=== PATIENT | male | born 1945 | race Caucasian/White ===

== ENCOUNTER 2022-08-11 06:21 | Outpatient (RCR) | payer MEDICARE, OTHER, SELFPAY | END 2022-09-09 23:59 | disposition home or self-care (01) | LOC: MM 06:21 | PROVIDERS: PCP Internal Medicine; Visit Provider Internal Medicine | DX: Z51.81 Encounter for therapeutic drug level monitoring (principal); Z79.01 Long term (current) use of anticoagulants; I48.91 Unspecified atrial fibrillation | CPT/HCPCS: 85610; G0463 ==

== ENCOUNTER 2022-08-25 07:49 | Outpatient (OUT) | payer MEDICARE, OTHER, SELFPAY ==
--- NOTE | 2022-08-25 08:11 | CT_ITS ---
The [address] [address] Patient Name: DEB DAVIS MRN: [id number] date: 1945 Sex: M Assigned Patient Location: LAB Current Patient Location: LAB Accession/Order Number: [id number] Exam Date: 08/25/2022 08:17 Report Date: 08/25/2022 08:43 At the request of: YANI SWANSON Procedure: CT chest wo con EXAM: CT chest wo con HISTORY: Right Pulmonary Nodule R91.1 COMPARISON: CT chest 09/24/2021. TECHNIQUE: Axial soft tissue and lung windows of the chest with coronal and sagittal reformats. CT dose reduction technique was used including Automated Exposure Control. Findings: Lack of intravenous contrast limits evaluation. The heart is mildly enlarged. There are coronary artery and aortic annular calcifications. No pericardial effusion. The thoracic aorta is normal caliber with mild atherosclerotic disease. The pulmonary arteries are nondilated. The central airways are patent. No pneumothorax. No pleural effusion. No focal consolidation. Minimal atelectasis bilaterally. Stable right lower lobe 1.2 cm nodule abutting the pleura (image 75 series 4). There are couple other scattered stable micronodules. No new pulmonary nodule. No enlarged mediastinal, hilar, axillary or supraclavicular lymph nodes. Calcified right hilar and subcarinal lymph nodes likely relating to prior granulomatous disease. Splenic calcifications also likely relating to prior granulomatous disease. Partially visualized left renal 3.1 cm cyst. No aggressive sclerotic or lytic osseous lesions. Multilevel degenerative spondylosis. IMPRESSION: 1. Stable pulmonary nodules. 2. Evidence of prior granulomatous disease. Electronically authenticated by: MARIA LUZ MCGUIRE Date: 08/25/2022 08:43
[2022-08-25 08:14] LABS: Basophils Percent Auto 0.6 % (0.2-2.0); Eosinophils Absolute Auto 0.1 10^3/uL (0.0-0.7); Eosinophils Percent Auto 2.2 % (0.9-7.0); Immature Granulocytes Abs Auto 0.01 10^3/uL (0.00-0.03); Immature Granulocytes Pct Auto 0.2 % (0.0-0.5); Lymphocytes Absolute Auto 1.8 10^3/uL (1.2-3.8); Lymphocytes Percent Auto 28.1 % (20.5-60.0); Mean Corpuscular HGB Conc 32.6 g/dL (29.9-35.2); Mean Platelet Volume 10.2 fL (9.5-13.5); Monocytes Absolute Auto 0.5 10^3/uL (0.3-0.8); Monocytes Percent Auto 7.8 % (1.7-12.0); Neutrophils Absolute Auto 3.8 10^3/uL (1.4-6.5); Neutrophils Percent Auto 61.1 % (43.0-75.0); Platelet Count 180 10^3/uL (150-450); Red Blood Count 5.17 10^6/uL (4.70-6.10); Red Cell Distribution Width 15.7 % (11.0-15.0); White Blood Count 6.3 10^3/uL (4.0-11.0)
[2022-08-25 08:51] LABS: Microalbumin Urine Random 9.8 mg/dL (<=30.0)
[2022-08-25 09:02] LABS: Estimated Average Glucose 123 mg/dL; Glycohemoglobin A1C 5.9 % (4.5-6.2)
[2022-08-25 10:07] LABS: Alanine Aminotransferase 24 U/L (16-63); Anion Gap 12.8; BUN Creatinine Ratio 24.4; Calcium 9.1 mg/dL (8.5-10.1); Carbon Dioxide 27.2 mmol/L (21.0-32.0); Chloride 102 mmol/L (98-107); Chol HDL Ratio 2.7; Cholesterol 138 mg/dL (<=200); Estimated GFR (African America >60 (>=60); Estimated GFR (Non-African Ame >60 (>=60); Glucose 114 mg/dL (74-106); HDL Cholesterol 51 mg/dL (40-60); LDL Cholesterol Calculated 74.8 mg/dL; Sodium 138 mmol/L (136-145); Triglycerides 61 mg/dL (<=150); VLDL CHOLESTEROL 12.2 mg/dL
[2022-08-25 10:45] LABS: Prostate Specific Antigen Scrn 1.29 ng/mL (<=4.00)
== END 2022-08-25 07:50 ==
LOC: LAB 07:51
PROVIDERS: PCP Internal Medicine; Visit Provider Internal Medicine
DX: Z12.5 Encounter for screening for malignant neoplasm of prostate (principal); Z79.899 Other long term (current) drug therapy; R91.1 Solitary pulmonary nodule
CPT/HCPCS: 36415; 71250; 80048; 80061; 82043; 83036; 84460; 85025; G0103

== ENCOUNTER 2022-09-15 09:01 | Outpatient (RCR) | payer MEDICARE, OTHER, SELFPAY | END 2022-10-10 16:58 | disposition home or self-care (01) | LOC: MM 09:01 | PROVIDERS: PCP Internal Medicine; Visit Provider Internal Medicine | DX: Z51.81 Encounter for therapeutic drug level monitoring (principal); Z79.01 Long term (current) use of anticoagulants; I48.91 Unspecified atrial fibrillation | CPT/HCPCS: 85610; G0463 ==

== ENCOUNTER 2022-10-11 09:20 | Outpatient (RCR) | payer MEDICARE, OTHER, SELFPAY | END 2022-11-10 17:34 | disposition home or self-care (01) | LOC: MM 09:20 | PROVIDERS: Visit Provider Internal Medicine | DX: Z51.81 Encounter for therapeutic drug level monitoring (principal); Z79.01 Long term (current) use of anticoagulants; I48.91 Unspecified atrial fibrillation | CPT/HCPCS: 85610; G0463 ==

== ENCOUNTER 2022-11-11 08:57 | Outpatient (RCR) | payer MEDICARE, OTHER, SELFPAY | END 2022-12-09 16:52 | disposition home or self-care (01) | LOC: MM 08:57 | PROVIDERS: Visit Provider Internal Medicine | DX: Z51.81 Encounter for therapeutic drug level monitoring (principal); Z79.01 Long term (current) use of anticoagulants; I48.91 Unspecified atrial fibrillation | CPT/HCPCS: 85610; G0463 ==

== ENCOUNTER 2022-12-12 01:53 | Outpatient (RCR) | payer MEDICARE, OTHER, SELFPAY | END 2023-01-10 17:25 | disposition home or self-care (01) | LOC: MM 01:53 | PROVIDERS: Visit Provider Internal Medicine | DX: Z51.81 Encounter for therapeutic drug level monitoring (principal); Z79.01 Long term (current) use of anticoagulants; I48.91 Unspecified atrial fibrillation | CPT/HCPCS: 85610; G0463 ==

== ENCOUNTER 2023-01-11 00:40 | Outpatient (RCR) | payer MEDICARE, OTHER, SELFPAY | END 2023-02-09 16:40 | disposition home or self-care (01) | LOC: MM 00:40 | PROVIDERS: Visit Provider Internal Medicine | DX: Z51.81 Encounter for therapeutic drug level monitoring (principal); Z79.01 Long term (current) use of anticoagulants; I48.91 Unspecified atrial fibrillation | CPT/HCPCS: 85610; G0463 ==

== ENCOUNTER 2023-02-10 09:28 | Outpatient (RCR) | payer MEDICARE, OTHER, SELFPAY | END 2023-03-10 15:10 | disposition home or self-care (01) | LOC: MM 09:28 | PROVIDERS: Visit Provider Internal Medicine | DX: Z51.81 Encounter for therapeutic drug level monitoring (principal); Z79.01 Long term (current) use of anticoagulants; I48.91 Unspecified atrial fibrillation | CPT/HCPCS: 85610; G0463 ==

== ENCOUNTER 2023-03-13 01:35 | Outpatient (RCR) | payer MEDICARE, OTHER, SELFPAY | END 2023-04-12 16:57 | disposition home or self-care (01) | LOC: MM 01:35 | PROVIDERS: Visit Provider Internal Medicine | DX: Z51.81 Encounter for therapeutic drug level monitoring (principal); Z79.01 Long term (current) use of anticoagulants | CPT/HCPCS: 85610; G0463 ==

== ENCOUNTER 2023-03-16 12:50 | Emergency (ER) | payer OTHER, MEDICARE, SELFPAY ==
[2023-03-16 12:53] VITALS: BP 163/86; PULSE 81; RESP 18; TEMP 36.6; O2SAT 97; BMI 44.1
--- NOTE | 2023-03-16 13:00 | CT_ITS ---
The [address] [address] Patient Name: DEB DAVIS MRN: [id number] date: 1945 Sex: M Assigned Patient Location: ED.MAIN Current Patient Location: ED.MAIN Accession/Order Number: [id number] Exam Date: 03/16/2023 13:06 Report Date: 03/16/2023 13:28 At the request of: SERGIO BRODY Procedure: CT head/brain wo con EXAM: CT head/brain wo con; [id number] REASON FOR EXAM: fell, hit head, on Coumadin COMPARISON: None. TECHNIQUE: Axial CT images of the head obtained without contrast. Multiplanar reformats generated at the scanner. Dose reduction technique used: Automated exposure control and/or adjustment of the mA and/or kV according to patient size and/or use of iterative reconstruction technique. FINDINGS: Parenchyma: -Moderate generalized cerebral volume loss. -No midline shift or mass effect. Basilar cisterns are patent. -No acute intracranial hemorrhage. -No loss of cortical bird-white differentiation to indicate acute cortical infarct. -Moderate/severe multifocal and bilateral periventricular white matter predominant hypoattenuation, nonspecific though commonly seen in the setting of chronic microvascular ischemic disease. Incidentally noted cavum septum pellucidum. Extra-axial spaces: -No extra-axial fluid collection or hemorrhage. -CSF attenuation expansion of the extra-axial space surrounding the left cerebellar hemisphere which could be a congenital variant versus a benign arachnoid cyst. Ventricles: Normal in size and symmetric. Paranasal sinuses: Visualized paranasal sinuses are clear. Mastoid air cells: Visualized mastoids are clear. Orbits: No acute abnormality. Osseous: No acute findings. Soft tissues: Left periorbital laceration. CT/CT head/brain wo con IMPRESSION: 1. No acute intracranial abnormality demonstrated. 2. Findings suggestive of moderate/severe chronic microvascular ischemic disease. Electronically authenticated by: AYLA OLMOS Date: 03/16/2023 13:28
--- NOTE | 2023-03-16 13:00 | ED.FALL1 ---
HPI - Fall General Chief Complaint: Head Injury Stated Complaint: FALL/EYE INJURY Time Seen by Provider: 03/16/23 12:53 Source: patient Mode of arrival: ambulance Limitations: no limitations History of Present Illness HPI Narrative: 78-year-old male presents for a fall. He tripped and fell and hit his left forehead sustaining a laceration just before coming into the emergency department. No other injury. Pain. He is on Coumadin. Related Data Allergies Allergy/AdvReac Type Severity Reaction Status Date / Time No Known Drug Allergies Allergy Verified 03/16/23 12:53 Review of Systems ROS Narrative A ten point review of systems is negative except as noted above. Exam Narrative Exam Narrative: Nurses note and vital signs reviewed and patient is not hypoxic. General: The patient appears well and in no apparent distress. Patient is resting comfortably on cart. Skin: Warm, dry, no pallor noted. There is no rash noted. Head: Normocephalic, 3 cm laceration present at the left eyebrow Eye: Normal conjunctiva, no drainage Ears, Nose, Mouth, and Throat: oral mucosa is moist. Nares patent. Cardiovascular: Regular Rate and Rhythm Respiratory: Patient is in no distress, no accessory muscle use, lungs are clear to auscultation, no wheezing, rales or rhonchi Back: non-tender, cervical spine nontender GI: soft and nontender Musculoskeletal: no palpable tenderness to all four extremities which have good range of motion Neurological: A&O, normal speech Psychiatric: Cooperative Constitutional Vital Signs, click to edit/add: Last Vital Signs Temp 98 F 03/16/23 12:53 Pulse 81 03/16/23 12:53 Resp 18 03/16/23 12:53 BP 163/86 H 03/16/23 12:53 Pulse Ox 97 03/16/23 12:53 Course Vital Signs Vital signs: Vital Signs Temperature 98 F 03/16/23 12:53 Pulse Rate 81 03/16/23 12:53 Respiratory Rate 18 03/16/23 12:53 Blood Pressure 163/86 H 03/16/23 12:53 Pulse Oximetry 97 03/16/23 12:53 Temperature 98 F 03/16/23 12:53 Pulse Rate 81 03/16/23 12:53 Respiratory Rate 18 03/16/23 12:53 Blood Pressure 163/86 H 03/16/23 12:53 Pulse Oximetry 97 03/16/23 12:53 MDM - Fall MDM Narrative Medical decision making narrative: CT brain is negative. Tetanus status is updated. Wound has been closed and sutures are to be removed in a week. Treatment diagnosis and follow-up were discussed with the patient. The following procedure was performed by me. Local infiltration was carried out with one percent lidocaine without epinephrine resulting in complete skin anesthesia. The area was prepped with Betadine ?3 and draped sterilely. It was explored for foreign bodies and none were found and then closed with a total of five sutures, a combination of 50 and 4-0 Ethilon. patient and he tolerated the procedure well. Differential Diagnosis Differential diagnosis: Likely other (laceration, subarachnoid hemorrhage, subdural hematoma, epidural hematoma) Imaging Data CT scan - head: Radiologist's impression: Procedure: CT head/brain wo con EXAM: CT head/brain wo con; [id number] REASON FOR EXAM: fell, hit head, on Coumadin COMPARISON: None. TECHNIQUE: Axial CT images of the head obtained without contrast. Multiplanar reformats generated at the scanner. Dose reduction technique used: Automated exposure control and/or adjustment of the mA and/or kV according to patient size and/or use of iterative reconstruction technique. FINDINGS: Parenchyma: -Moderate generalized cerebral volume loss. -No midline shift or mass effect. Basilar cisterns are patent. -No acute intracranial hemorrhage. -No loss of cortical bird-white differentiation to indicate acute cortical infarct. -Moderate/severe multifocal and bilateral periventricular white matter predominant hypoattenuation, nonspecific though commonly seen in the setting of chronic microvascular ischemic disease. Incidentally noted cavum septum pellucidum. Extra-axial spaces: -No extra-axial fluid collection or hemorrhage. -CSF attenuation expansion of the extra-axial space surrounding the left cerebellar hemisphere which could be a congenital variant versus a benign arachnoid cyst. Ventricles: Normal in size and symmetric. Paranasal sinuses: Visualized paranasal sinuses are clear. Mastoid air cells: Visualized mastoids are clear. Orbits: No acute abnormality. Osseous: No acute findings. Soft tissues: Left periorbital laceration. IMPRESSION: 1. No acute intracranial abnormality demonstrated. 2. Findings suggestive of moderate/severe chronic microvascular ischemic disease. Electronically authenticated by: AYLA OLMOS Date: 03/16/2023 13:28 Discharge Plan Discharge Chief Complaint: Head Injury Clinical Impression: Facial laceration Patient Disposition: Home, Self-Care Time of Disposition Decision: 13:56 Condition: Good Mode of Transportation: Private Vehicle Instructions: Laceration (ED) Additional Instructions: Sutures to be removed in one week Stand Alone Forms: Portal Instructions Referrals: Declan Bruce DO [Primary Care Provider] - 1 week
[2023-03-16] MEDS: LIDOCAINE HCL 1% 100 MG/10 ML MDV INJ (13:27)
[2023-03-16] MEDS: ADACEL DIPH,PERTUSS(ACELL),TET VAC/PF 0.5 ML ADULT SYRINGE IM (13:27)
[2023-03-16 14:15] VITALS: BP 130/67; PULSE 74; RESP 14; O2SAT 97
== END 2023-03-16 14:27 | disposition home or self-care (01) ==
PROVIDERS: Emergency Provider Emergency Medicine; PCP Internal Medicine
DX: S01.112A Laceration without foreign body of left eyelid and periocular area, initial encounter (principal); Z23 Encounter for immunization; W01.10XA Fall on same level from slipping, tripping and stumbling with subsequent striking against unspecified object, initial encounter
CPT/HCPCS: 12013; 70450; 90471; 90715; 99284

== ENCOUNTER 2023-04-13 01:39 | Outpatient (RCR) | payer MEDICARE, OTHER, SELFPAY | END 2023-05-11 17:25 | disposition home or self-care (01) | LOC: MM 01:39 | PROVIDERS: PCP Internal Medicine; Visit Provider Internal Medicine | DX: Z51.81 Encounter for therapeutic drug level monitoring (principal); Z79.01 Long term (current) use of anticoagulants | CPT/HCPCS: 85610; G0463 ==

== ENCOUNTER 2023-05-12 03:34 | Outpatient (RCR) | payer MEDICARE, OTHER, SELFPAY | END 2023-06-09 14:11 | disposition home or self-care (01) | LOC: MM 03:34 | PROVIDERS: PCP Internal Medicine; Visit Provider Internal Medicine | DX: Z51.81 Encounter for therapeutic drug level monitoring (principal) | CPT/HCPCS: 85610; G0463 ==

== ENCOUNTER 2023-06-12 03:21 | Outpatient (RCR) | payer MEDICARE, OTHER, SELFPAY | END 2023-07-11 18:13 | disposition home or self-care (01) | LOC: MM 03:21 | PROVIDERS: PCP Internal Medicine; Visit Provider Internal Medicine | DX: Z51.81 Encounter for therapeutic drug level monitoring (principal); Z79.01 Long term (current) use of anticoagulants | CPT/HCPCS: 85610; G0463 ==

== ENCOUNTER 2023-07-12 00:29 | Outpatient (RCR) | payer MEDICARE, OTHER, SELFPAY | END 2023-08-11 11:30 | disposition home or self-care (01) | LOC: MM 00:29 | PROVIDERS: PCP Internal Medicine; Visit Provider Internal Medicine | DX: Z51.81 Encounter for therapeutic drug level monitoring (principal); Z79.01 Long term (current) use of anticoagulants | CPT/HCPCS: 85610; G0463 ==

== ENCOUNTER 2023-08-14 03:09 | Outpatient (RCR) | payer MEDICARE, OTHER, SELFPAY | END 2023-09-08 10:06 | disposition home or self-care (01) | LOC: MM 03:09 | PROVIDERS: PCP Internal Medicine; Visit Provider Internal Medicine | DX: Z51.81 Encounter for therapeutic drug level monitoring (principal); Z79.01 Long term (current) use of anticoagulants | CPT/HCPCS: 85610; G0463 ==

== ENCOUNTER 2023-08-22 06:41 | Outpatient (OUT) | payer MEDICARE, OTHER, SELFPAY ==
--- OUTSIDE RECORDS SUMMARY | 2023-08-22 06:49 | XMS_ITS | CCD ---
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 unclassified (1 source) Edema, unspecified; 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: [EDEMA UNSPECIFIED] Onset: 03-09-2022 Episodic Residual codes; unclassified (5 sources) Requires influenza virus vaccination; 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: [Need for prophylactic vaccination and inoculation, Influenza] Onset: 12-01-2017 Episodic Screening and history of mental health and substance abuse codes (5 sources) History of tobacco use; 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: [Personal history of tobacco use, presenting hazards to health] Onset: 06-01-2016 Episodic Unclassified (1 source) Other persistent atrial fibrillation Viral infection (20 sources) Disease caused by 2019-nCoV; 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: [COVID-19] Results Test Name Value Interpretation Reference Range Facility [facility] 07-25-[address] [facility] Telephone (PRESLEY) JORGE DAVIS ([id number]) 1945 [facility]* Date Time Provider Department 07/25/23 RUBEN DENTON During your visit today, we recorded the following information about you: Bryan Dwyer 07/25/2023 10:22 AM Signed Documentation scanned into EP outside database Scanned INR results into [employer] Allergies As of Date: 07/25/2023 (No Known Allergies) Date Reviewed: 07/04/2023 Reviewed by: Delilah Novoa LPN - Fully Assessed Reason for Visit: Received Outside Medical Records [[id number]] Cmt: INR Prescriptions as of 07/25/2023 - warfarin (COUMADIN) 1 mg tablet Take 4 mg by mouth once daily. - metFORMIN (GLUCOPHAGE) 500 mg tablet Take 500 mg by mouth daily with breakfast. - furosemide (LASIX) 40 mg tablet Take 1 tablet by mouth once daily. - COMPOUNDED PRESCRIPTION Skin cream - patient unsure of name. - potassium chloride ER (K-DUR, KLOR-CON) 20 mEq tablet Take 1 tablet by mouth once daily. - pravastatin (PRAVACHOL) 80 mg tablet Take 1 tablet by mouth daily at bedtime. - ACETAMINOPHEN (TYLENOL 8 HOUR ORAL) Take by mouth as needed. 325 mg - 500 mg only as needed (not more than once per day) - allopurinol 300 mg tablet Take 300 mg by mouth once daily. Problem List As Of Date 07/25/2023 Noted Resolved CHRISTIAN (obstructive sleep apnea) [G47.33] 01/07/2014 HTN (hypertension) [I10] 01/07/2014 Dyslipidemia [E78.5] 01/07/2014 Atrial fibrillation (HCC) [I48.91] 07/08/2014 Atherosclerosis of grand ronde tribes coronary artery of na*07/10/2015 Diabetes mellitus type 2, controlled, without c*07/10/2015 Atrial fibrillation, persistent (HCC) [I48.19] 07/22/2015 Paroxysmal atrial fibrillation (HCC) [I48.0] 12/04/2015 Paroxysmal atrial flutter (HCC) [I48.92] 05/30/2018 Obesity, Class III, BMI >= 40 [E66.01] 10/23/2019 Chronic diastolic heart failure (HCC) [I50.32] 06/05/2023 Mixed hyperlipidemia [E78.2] 06/05/2023 Encounter Status:Closed by BRYAN DWYER on 07/25/[address] [facility] CNOVon 07-04-2023 CNOV Office Visit (CAEPAV ) JORGE DAVIS ([id number]) 1945 [facility] [place] Date Time Provider Department 07/04/23 10:00 AM SHAMA IBANEZ During your visit today, we recorded the following information about you: Pulse Blood pressure Weight Height 80/minute 146/78 121.3 kg 1.651 m Shama Ibanez PA-C 07/04/2023 9:58 AM Signed - No changes to medications today - Will have you see Dr Evans with echo as scheduled - Will have you see Dr Denton in 1 year - Call us sooner with any questions or concerns BARRETT Villeda Amanda, PA-C 07/04/2023 10:19 AM Signed [facility] [place] [facility] Department of Cardiovascular Medicine SECTION OF CARDIAC PACING and ELECTROPHYSIOLOGY OUTPATIENT VISIT DATE July 04, 2023 OUTPATIENT VISIT TYPE ESTABLISHED PRIMARY CARE PHYSICIAN: Declan Swanson (Peggy) [address] [place] [address] CHIEF COMPLAINT: Cardiology follow up HISTORY OF PRESENT ILLNESS: Mr. Davis is a 78 year old male who presents today for follow-up visit. He is a patient of Dr Evans and Dr Denton's with history of persistent AF s/p PVAI 2019, chronic HFpEF, obesity (BMI 44), HLP, CAD, DM II, HTN. On EKG's last SR EKG was 06/2021; currently rate controlled. Managed on warfarin only for stroke protection. Has an updated echo scheduled in November Back pain has slowed him down some but still does usual housework and can navigate stairs. He just takes his time He denies chest pain, shortness of breath, orthopnea, cough, edema, palpitations, PND, lightheadedness or syncope. PAST CARDIAC HISTORY: See above PAST MEDICAL HISTORY Diagnosis Date Acute gastric ulcer Atrial fibrillation (HCC) CAD (coronary artery disease) Congestive heart failure (HCC) DM2 (diabetes mellitus, type 2) (HCC) ED (erectile dysfunction) HTN (hypertension) Left ureteral calculus Obstructive chronic bronchitis with exacerbation (HCC) COPD Perianal dermatitis Status post ablation of atrial fibrillation 10/23/2019 Tubular adenoma PAST SURGICAL HISTORY Procedure Laterality Date ANESTH OPEN/SURG ARTHRS TOTAL KNEE ARTHROPLASTY 2007 Right Knee ARTHRP KNE CONDYLEANDPLATU MEDIALANDLAT COMPARTMENTS 2001 Left Knee CARDIAC CATH 2009 CARDIAC CATH 06/16/2015 COLONOSCOPY OPEN CHONDROPLASTY W/ MICRO DRILLING 2005 PAST SURGICAL HISTORY OF 1974 Fistulotomy PAST SURGICAL HISTORY OF Partial Medial Menisectomy Bilateral Knee PAST SURGICAL HISTORY OF 1991 Acrominoplasty Right Shoulder PAST SURGICAL HISTORY OF Bilateral Club Foot Surgery PAST SURGICAL HISTORY OF 2008 Anthroscopy Left Shoulder PAST SURGICAL HISTORY OF 2010 Revision Left Knee PAST SURGICAL HISTORY OF minor hand surgery REPAIR UMBILICAL HERNIA 2007 ROTATOR CUFF REPAIR 1993 Left Shoulder ROTATOR CUFF REPAIR 1996 Right Shoulder SOCIAL HISTORY Social History Tobacco Use Smoking status: Former Types: Cigars Quit date: 12/11/2012 Years since quittin.5 Smokeless tobacco: Never Vaping Use Vaping Use: Never used Substance Use Topics Alcohol use: Not Currently Drug use: No FAMILY HISTORY Problem Relation Age of Onset Heart Mother Heart Father ALLERGIES: ALLERGIES No Known Allergies MEDICATIONS: warfarin (COUMADIN) 1 mg tablet Take 4 mg by mouth once daily. metFORMIN (GLUCOPHAGE) 500 mg tablet Take 500 mg by mouth daily with breakfast. furosemide (LASIX) 40 mg tablet Take 1 tablet by mouth once daily. COMPOUNDED PRESCRIPTION Skin cream - patient unsure of name. potassium chloride ER (K-DUR, KLOR-CON) 20 mEq tablet Take 1 tablet by mouth once daily. pravastatin (PRAVACHOL) 80 mg tablet Take 1 tablet by mouth daily at bedtime. ACETAMINOPHEN (TYLENOL 8 HOUR ORAL) Take by mouth as needed. 325 mg - 500 mg only as needed (not more than once per day) allopurinol 300 mg tablet Take 300 mg by mouth once daily. REVIEW OF SYSTEMS: + Findings in bold GENERAL: Negative for: Weight loss or gain, Fever or Chills, Weakness and Sleep difficulties. HEENT: Negative for: Headache, Impaired Vision, Glasses, Hearing Impairment, Ringing in Ears, Nosebleeds, Poor Dental Care, Bleeding Gums and Dentures. NECK: Negative for: Swelling, Pain, Stiffness RESPIRATORY: Negative for: Cough, Blood in Sputum, Shortness of breath, Wheezing, Apnea GASTROINTESTINAL: Negative for: Trouble swallowing, Heartburn, Change in bowel habits, Blood in stool, Dark black stools MUSCULOSKELETAL: Negtive for: Muscle or joint pain, stiffness, Joint swelling NEUROLOGIC/PSYCHIATRIC : Negative for: Weakness, Paralysis, Numbness, Tingling, Tremor, Nervousness or anxiety, Depressed mood, Memory loss SKIN: Negative for: Rash, Itching HEMATOLOGICAL/LYMPHATI C: Negative for: Easy bruising, Easy bleeding ENDOCRINE: Negative for: Heat or Cold Intole (more content not included)... Normal [facility] CNPScarlett 06-27-2023 CNPN Telephone (CARDMN) JORGE DAVIS ([id number]) 1945 [place] [facility] Date Time Provider Department 06/27/23 RUBEN DENTON During your visit today, we recorded the following information about you: Bryan Dwyer 06/27/2023 2:56 PM Signed Documentation scanned into EP outside database Scanned INR results into [employer] Allergies As of Date: 06/27/2023 (No Known Allergies) Date Reviewed: 06/05/2023 Reviewed by: Venkat Evans V, MD - Fully Assessed Reason for Visit: Received Outside Medical Records [[id number]] Prescriptions as of 06/27/2023 - warfarin (COUMADIN) 1 mg tablet Take 4 mg by mouth once daily. - metFORMIN (GLUCOPHAGE) 500 mg tablet Take 500 mg by mouth daily with breakfast. - furosemide (LASIX) 40 mg tablet Take 1 tablet by mouth once daily. - COMPOUNDED PRESCRIPTION Skin cream - patient unsure of name. - potassium chloride ER (K-DUR, KLOR-CON) 20 mEq tablet Take 1 tablet by mouth once daily. - pravastatin (PRAVACHOL) 80 mg tablet Take 1 tablet by mouth daily at bedtime. - ACETAMINOPHEN (TYLENOL 8 HOUR ORAL) Take by mouth as needed. 325 mg - 500 mg only as needed (not more than once per day) - allopurinol 300 mg tablet Take 300 mg by mouth once daily. Problem List As Of Date 06/27/2023 Noted Resolved CHRISTIAN (obstructive sleep apnea) [G47.33] 01/07/2014 HTN (hypertension) [I10] 01/07/2014 Dyslipidemia [E78.5] 01/07/2014 Atrial fibrillation (HCC) [I48.91] 07/08/2014 Atherosclerosis of grand ronde tribes coronary artery of na*07/10/2015 Diabetes mellitus type 2, controlled, without c*07/10/2015 Atrial fibrillation, persistent (HCC) [I48.19] 07/22/2015 Paroxysmal atrial fibrillation (HCC) [I48.0] 12/04/2015 Paroxysmal atrial flutter (HCC) [I48.92] 05/30/2018 Obesity, Class III, BMI >= 40 [E66.01] 10/23/2019 Chronic diastolic heart failure (HCC) [I50.32] 06/05/2023 Mixed hyperlipidemia [E78.2] 06/05/2023 Encounter Status:Closed by BRYAN DWYER on 06/27/[address] [facility] CNOVon 06-05-2023 CNOV Office Visit (CARDAV ) JORGE DAVIS ([id number]) 1945 [facility]* Date Time Provider Department 06/05/23 1:40 PM VENKAT EVANS During your visit today, we recorded the following information about you: Pulse Blood pressure Weight 74/minute 124/78 120.2 kg Venkat Evans V, MD 06/05/2023 2:25 PM Signed Referring Physician: No referring provider defined for this encounter. Primary Care Physician: DO Jorge Unger is a 78 year old male that presents today for followup of Chronic diastolic CHF P atrial fibrillation : s/p PVI On coumadin Weight : lowest ; had improved Does not feel HR Was in atrial fibrillation last visit and last echo 2022 No meds for control of HR [ controlled on no meds Limited by back issues and slowed down because of this No angina Non obs cad by cath in the psat ASSESSMENT/PLAN: 1. Chronic diastolic heart failure (HCC) - ICD9: 428.32, ICD10: I50.32 (primary diagnosis) Stable on lasix Sglt 2 inhibitor : cost issue ; Stable Weight is lower 2. Atrial fibrillation, persistent (HCC) - ICD9: 427.31, ICD10: I48.19 Persistent Rate controlled Echo prior ot next visit 3. Obesity, Class III, 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) - ICD9: 278.01, ICD10: E66.01 Improved 4. Mixed hyperlipidemia - ICD9: 272.2, ICD10: E78.2 - Controlled - Counseled on healthy diet and regular exercise Venkat Evans MD Current Medications: Current Medications 06/05/2023 DIABETES THERAPIES Medication Dosage Pharm Subclass metFORMIN (GLUCOPHAGE) 500 mg tablet Take 500 mg by mouth daily with breakfast. Insulin Response Enhancers - Biguanides CARDIOVASCULAR Medication Dosage Pharm Subclass pravastatin (PRAVACHOL) 80 mg tablet Take 1 tablet by mouth daily at bedtime. Antihyperlipidemic - HMG CoA Reductase Inhibitors (statins) DIURETICS Medication Dosage Pharm Subclass furosemide (LASIX) 40 mg tablet Take 1 tablet by mouth once daily. Diuretic - Loop ANTICOAGULANTS Medication Dosage Pharm Subclass warfarin (COUMADIN) 1 mg tablet Take 4 mg by mouth once daily. Anticoagulants - Coumarin OTHER Medication Dosage Pharm Subclass ACETAMINOPHEN (TYLENOL 8 HOUR ORAL) Take by mouth as needed. 325 mg - 500 mg only as needed (not more than once per day) Analgesic or Antipyretic Non-Opioid allopurinol 300 mg tablet Take 300 mg by mouth once daily. Hyperuricemia Therapy - Xanthine Oxidase Inhibitors COMPOUNDED PRESCRIPTION Skin cream - patient unsure of name. Medical Supply, [employer]DB Superset potassium chloride ER (K-DUR, KLOR-CON) 20 mEq tablet Take 1 tablet by mouth once daily. Minerals and Electrolytes - Potassium, Oral PHYSICAL EXAMINATION: Vital Signs: Blood Pressure 124/78 Pulse 74 Weight 120.2 kg (264 lb 15.9 oz) Body Mass Index 44.10 kg/m? Body mass index is 44.1 kg/m?. GENERAL: Alert, oriented., Well appearing. No jaundice, anemia, clubbing, or cyanosis. HEENT: no lymphadenopathy. NECK: no JVD, No masses, or thyromegaly. Good carotid upstrokes. no carotid bruit. No lymphadenopathy. CARDIAC: irreg no gallop CHEST: Chest clear to auscultation. ABDOMEN: Soft, nontender, with no obvious organomegaly or masses. No epigastric bruit. EDEMA: No edema PERIPHERAL PULSES: 2+ SKIN: warm peripheries, no rash. NEURO: no focal neurological deficit ECG today: see epic result Allergies: ALLERGIES No Known Allergies Social History: TOBACCO: see epic ALCOHOL: see epic ROS: Card: See present history. Pulm:No cough or sputum production Gastro:no bowel changes. GenUr:no urinary symptoms. Endo:no chronic fatigue, significant weight loss/gain, heat/cold intolerance. Neuro:no focal weakness, focal sensory loss, headache, visual changes, seizure activity, ataxia, speech/language loss. Rheum:no joint swelling, back pain, knee pain, hip pain, or neck pain. Infect:no fevers, chills, rigors or night sweats. Skin:no rash Heme:no bruising LIPIDS: Triglyceride (mg/dL) Date Value 09/18/2020 83 Cholesterol, Total (mg/dL) Date Value 09/18/2020 143 HDL Cholesterol (mg/dL) Date Value 09/18/2020 48 LDL Cholesterol (mg/dL) Date Value 09/18/2020 78 Venkat Evans MD Allergies As of Date: 06/05/2023 (No Known Allergies) Date Reviewed: 06/05/2023 Reviewed by: Venkat Evans V, MD - Fully Assessed Reason for Visit: Follow Up [171] Primary Visit Diagnosis:Chronic diastolic heart failure (HCC) [I50.32] Other Visit Diagnoses:Atrial fibrillation, persistent (HCC) [I48.19] Obesity, Class III, 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) [E66.01] Mixed hyperlipidemia [E78.2] Order(s):ECG COMPLETE [ECG01] Order #: [id number]. #:[id number]--EEYFgy g ECHO [[id number]] Order #: [id number]: 1 FUTURE Prescriptions as of 06/05/2023 - warfarin (COUMADIN) 1 mg tablet Take 4 mg by mouth once daily. - metFORMIN (GLUCOPHAGE) 500 mg t (more content not included)... Normal [facility] [id number] 06-05-2023 ECG01 Ventricular Rate : 6 8 BPM QRS Duration : 108 ms Q-T Interval : 466 ms QTC Calculation(Bazett) : 495 ms Calculated R Taylor : -27 degrees Calculated T Taylor : 53 degrees ATRIAL FIBRILLATION INCOMPLETE RIGHT BUNDLE BRANCH BLOCK ABNORMAL ECG Confirmed by KATRINA KELLEY MD ([id number]) on 06/07/2023 9:44:30 AM NAME : JORGE DAVIS PID : [id number] : 1945 Gender : Male Race : ORD : Procedure Date : Jun 05 2023 14:22:27 Edit Date : Jun 07 2023 09:44:35 Diagnosis: ATRIAL FIBRILLATION INCOMPLETE RIGHT BUNDLE BRANCH BLOCK ABNORMAL ECG Confirmed by KATRINA KELLEY MD ([id number]) on 06/07/2023 9:44:30 AM Test Reason : Location : 192 : AVCRD Overread By : KATRINA KELLEY MD Edited By : KATRINA KELLEY MD Referred By : , Acquired by : Ale lema [facility] Scooter 05-30-2023 CNPN Telephone (CARDMN) JORGE DAVIS W ([id number]) 1945 [facility]* Date Time Provider Department 05/30/23 RUBEN DENTONIN During your visit today, we recorded the following information about you: Bryan Dwyer 05/30/2023 9:24 AM Signed Documentation scanned into EP outside database Scanned into [employer] Allergies As of Date: 05/30/2023 (No Known Allergies) Date Reviewed: 06/24/2022 Reviewed by: Ruben Denton MD - Fully Assessed Reason for Visit: Received Outside Medical Records [[id number]] Cmt: INR Prescriptions as of 05/30/2023 - warfarin (COUMADIN) 1 mg tablet Take 4 mg by mouth once daily. - metFORMIN (GLUCOPHAGE) 500 mg tablet Take 500 mg by mouth daily with breakfast. - furosemide (LASIX) 40 mg tablet Take 1 tablet by mouth once daily. - COMPOUNDED PRESCRIPTION Skin cream - patient unsure of name. - potassium chloride ER (K-DUR, KLOR-CON) 20 mEq tablet Take 1 tablet by mouth once daily. - pravastatin (PRAVACHOL) 80 mg tablet Take 1 tablet by mouth daily at bedtime. - ACETAMINOPHEN (TYLENOL 8 HOUR ORAL) Take by mouth as needed. 325 mg - 500 mg only as needed (not more than once per day) - allopurinol 300 mg tablet Take 300 mg by mouth once daily. Problem List As Of Date 05/30/2023 Noted Resolved CHRISTIAN (obstructive sleep apnea) [G47.33] 01/07/2014 HTN (hypertension) [I10] 01/07/2014 Dyslipidemia [E78.5] 01/07/2014 Atrial fibrillation (HCC) [I48.91] 07/08/2014 Atherosclerosis of grand r[place] tribes coronary artery of na*07/10/2015 Diabetes mellitus type 2, controlled, without c*07/10/2015 Atrial fibrillation, persistent (HCC) [I48.19] 07/22/2015 Paroxysmal atrial fibrillation (HCC) [I48.0] 12/04/2015 Paroxysmal atrial flutter (HCC) [I48.92] 05/30/2018 Obesity, Class III, BMI >= 40 [E66.01] 10/23/2019 Encounter Status:Closed by BRYAN DWYER on 05/30/23 [facility] 05[facility]02-2023 [facility] (PRESLEY[facility] JORGE DAVIS ([id number]) 1945 [place] [place]* Date Time Provider Department 05/02/23 RUBEN DENTON During your visit today, we recorded the following information about you: Bryan Dwyer 05/02/2023 3:27 PM Signed Documentation scanned into EP outside database Allergies As of Date: 05/02/2023 (No Known Allergies) Date Reviewed: 06/24/2022 Reviewed by: Ruben Denton MD - Fully Assessed Reason for Visit: Received Outside Medical Records [[id number]] Cmt: INR results Prescriptions as of 05/02/2023 - warfarin (COUMADIN) 1 mg tablet Take 4 mg by mouth once daily. - metFORMIN (GLUCOPHAGE) 500 mg tablet Take 500 mg by mouth daily with breakfast. - furosemide (LASIX) 40 mg tablet Take 1 tablet by mouth once daily. - COMPOUNDED PRESCRIPTION Skin cream - patient unsure of name. - potassium chloride ER (K-DUR, KLOR-CON) 20 mEq tablet Take 1 tablet by mouth once daily. - pravastatin (PRAVACHOL) 80 mg tablet Take 1 tablet by mouth daily at bedtime. - ACETAMINOPHEN (TYLENOL 8 HOUR ORAL) Take by mouth as needed. 325 mg - 500 mg only as needed (not more than once per day) - allopurinol 300 mg tablet Take 300 mg by mouth once daily. Problem List As Of Date 05/02/2023 Noted Resolved CHRISTIAN (obstructive sleep apnea) [G47.33] 01/07/2014 HTN (hypertension) [I10] 01/07/2014 Dyslipidemia [E78.5] 01/07/2014 Atrial fibrillation (HCC) [I48.91] 07/08/2014 Atherosclerosis of [place] tribes coronary artery of na*07/10/2015 Diabetes mellitus type 2, controlled, without c*07/10/2015 Atrial fibrillation, persistent (HCC) [I48.19] 07/22/2015 Paroxysmal atrial fibrillation (HCC) [I48.0] 12/04/2015 Paroxysmal atrial flutter (HCC) [I48.92] 05/30/2018 Obesity, Class III, BMI >= 40 [E66.01] 10/23/2019 Encounter Status:Closed by BRYAN DWYER on 05/02/[address] [facility] Scooter 04-06-2023 CNPN Telephone (CARDMN) JORGE [id number]) 1945 [place] [place]* Date Time Provider Department 04/06/23 RUBEN DENTON [facility] During your visit today, we recorded the following information about you: Suman Garvin 04/06/2023 6:45 AM Signed Outside medical records (INR report 04/04/2023) scanned into [employer] and shared EP drive. Allergies As of Date: 04/06/2023 (No Known Allergies) Date Reviewed: 06/24/2022 Reviewed by: Ruben Denton MD - Fully Assessed Reason for Visit: Received Outside Medical Records [[id number]] Cmt: INR Report 04/04/2023 Prescriptions as of 05/18/2023 - warfarin (COUMADIN) 1 mg tablet Take 4 mg by mouth once daily. - metFORMIN (GLUCOPHAGE) 500 mg tablet Take 500 mg by mouth daily with breakfast. - furosemide (LASIX) 40 mg tablet Take 1 tablet by mouth once daily. - COMPOUNDED PRESCRIPTION Skin cream - patient unsure of name. - potassium chloride ER (K-DUR, KLOR-CON) 20 mEq tablet Take 1 tablet by mouth once daily. - pravastatin (PRAVACHOL) 80 mg tablet Take 1 tablet by mouth daily at bedtime. - ACETAMINOPHEN (TYLENOL 8 HOUR ORAL) Take by mouth as needed. 325 mg - 500 mg only as needed (not more than once per day) - allopurinol 300 mg tablet Take 300 mg by mouth once daily. Problem List As Of Date 04/06/2023 Noted Resolved CHRISTIAN (obstructive sleep apnea) [G47.33] 01/07/2014 HTN (hypertension) [I10] 01/07/2014 Dyslipidemia [E78.5] 01/07/2014 Atrial fibrillation (HCC) [I48.91] 07/08/2014 Atherosclerosis of grand [place] tribes coronary artery of na*07/10/2015 Diabetes mellitus type 2, controlled, without c*07/10/2015 Atrial fibrillation, persistent (HCC) [I48.19] 07/22/2015 Paroxysmal atrial fibrillation (HCC) [I48.0] 12/04/2015 Paroxysmal atrial flutter (HCC) [I48.92] 05/30/2018 Obesity, Class III, BMI >= 40 [E66.01] 10/23/2019 Encounter Status:Closed by SUMAN GARVIN on 05/18/23 [facility] 02-07-2023 CNPN Telephone (CARDMN) JORGE DAVIS ([id number]) 1945 [place]* Date Time Provider Department 02/07/23 RUBEN DENTON CARDIN During your visit today, we recorded the following information about you: Suman Garvin 02/07/2023 9:32 AM Signed Outside medical records (INR report 02/07/2023) scanned into [employer] and shared [address]. Allergies As of Date: 02/07/2023 (No Known Allergies) Date Reviewed: 06/24/2022 Reviewed by: Ruben Denton MD - Fully Assessed Reason for Visit: Received Outside Medical Records [[id number]] Cmt: INR Report 02/07/2023 Prescriptions as of 02/07/2023 - warfarin (COUMADIN) 1 mg tablet Take 4 mg by mouth once daily. - metFORMIN (GLUCOPHAGE) 500 mg tablet Take 500 mg by mouth daily with breakfast. - furosemide (LASIX) 40 mg tablet Take 1 tablet by mouth once daily. - COMPOUNDED PRESCRIPTION Skin cream - patient unsure of name. - potassium chloride ER (K-DUR, KLOR-CON) 20 mEq tablet Take 1 tablet by mouth once daily. - pravastatin (PRAVACHOL) 80 mg tablet Take 1 tablet by mouth daily at bedtime. - ACETAMINOPHEN (TYLENOL 8 HOUR ORAL) Take by mouth as needed. 325 mg - 500 mg only as needed (not more than once per day) - allopurinol 300 mg tablet Take 300 mg by mouth once daily. Facility-Administered Medications as of 02/07/2023 - perflutren lipid microspheres 1.3 mL in NaCl (PF) 0.9% 10 mL injection (DEFINITY) - sodium chloride 0.9 % (flush) 10 mL (BD POSIFLUSH) Problem List As Of Date 02/07/2023 Noted Resolved CHRISTIAN (obstructive sleep apnea) [G47.33] 01/07/2014 HTN (hypertension) [I10] 01/07/2014 Dyslipidemia [E78.5] 01/07/2014 Atrial fibrillation (HCC) [I48.91] 07/08/2014 Atherosclerosis of grand [place] tribes coronary artery of na*07/10/2015 Diabetes mellitus type 2, controlled, without c*07/10/2015 Atrial fibrillation, persistent (HCC) [I48.19] 07/22/2015 Paroxysmal atrial fibrillation (HCC) [I48.0] 12/04/2015 Paroxysmal atrial flutter (HCC) [I48.92] 05/30/2018 Obesity, Class III, BMI >= 40 [E66.01] 10/23/2019 Encounter Status:Closed by SUMAN GARVIN on 02/07/23 [facility] 01-11-2023 CNPN Telephone (CARDMN) JORGE DAVIS ([id number]) 1945 [facility] Date Time Provider Department 01/11/23 RUBEN DENTON During your visit today, we recorded the following information about you: Suman Garvin 01/11/2023 7:26 AM Signed Outside medical records (INR Report 01/10/2023) scanned into [employer]. Allergies As of Date: 01/11/2023 (No Known Allergies) Date Reviewed: 06/24/2022 Reviewed by: Ruben Denton MD - Fully Assessed Reason for Visit: Received Outside Medical Records [[id number]] Cmt: INR Report 01/10/2023 Prescriptions as of 05/17/2023 - warfarin (COUMADIN) 1 mg tablet Take 4 mg by mouth once daily. - metFORMIN (GLUCOPHAGE) 500 mg tablet Take 500 mg by mouth daily with breakfast. - furosemide (LASIX) 40 mg tablet Take 1 tablet by mouth once daily. - COMPOUNDED PRESCRIPTION Skin cream - patient unsure of name. - potassium chloride ER (K-DUR, KLOR-CON) 20 mEq tablet Take 1 tablet by mouth once daily. - pravastatin (PRAVACHOL) 80 mg tablet Take 1 tablet by mouth daily at bedtime. - ACETAMINOPHEN (TYLENOL 8 HOUR ORAL) Take by mouth as needed. 325 mg - 500 mg only as needed (not more than once per day) - allopurinol 300 mg tablet Take 300 mg by mouth once daily. Problem List As Of Date 01/11/2023 Noted Resolved CHRISTIAN (obstructive sleep apnea) [G47.33] 01/07/2014 HTN (hypertension) [I10] 01/07/2014 Dyslipidemia [E78.5] 01/07/2014 Atrial fibrillation (HCC) [I48.91] 07/08/2014 Atherosclerosis of grand [place] tribes coronary artery of na*07/10/2015 Diabetes mellitus type 2, controlled, without c*07/10/2015 Atrial fibrillation, persistent (HCC) [I48.19] 07/22/2015 Paroxysmal atrial fibrillation (HCC) [I48.0] 12/04/2015 Paroxysmal atrial flutter (HCC) [I48.92] 05/30/2018 Obesity, Class III, BMI >= 40 [E66.01] 10/23/2019 Encounter Status:Closed by SUMAN GARVIN on 05/17/23 [facility]20[facility] JORGE DAVIS ([id number]) 1945 [facility]* Date Time Provider Department 01/05/23 RUBEN DENTON During your visit today, we recorded the following information about you: Suman Garvin 01/05/2023 6:48 AM Signed Outside medical records (INR report 12/27/2022) scanned into [employer]. Allergies As of Date: 01/05/2023 (No Known Allergies) Date Reviewed: 06/24/2022 Reviewed by: Ruben Denton MD - Fully Assessed Reason for Visit: Received Outside Medical Records [[id number]] Cmt: INR Report 12/27/2022 Prescriptions as of 01/05/2023 - warfarin (COUMADIN) 1 mg tablet Take 4 mg by mouth once daily. - metFORMIN (GLUCOPHAGE) 500 mg tablet Take 500 mg by mouth daily with breakfast. - furosemide (LASIX) 40 mg tablet Take 1 tablet by mouth once daily. - COMPOUNDED PRESCRIPTION Skin cream - patient unsure of name. - potassium chloride ER (K-DUR, KLOR-CON) 20 mEq tablet Take 1 tablet by mouth once daily. - pravastatin (PRAVACHOL) 80 mg tablet Take 1 tablet by mouth daily at bedtime. - ACETAMINOPHEN (TYLENOL 8 HOUR ORAL) Take by mouth as needed. 325 mg - 500 mg only as needed (not more than once per day) - allopurinol 300 mg tablet Take 300 mg by mouth once daily. Facility-Administered Medications as of 01/05/2023 - perflutren lipid microspheres 1.3 mL in NaCl (PF) 0.9% 10 mL injection (DEFINITY) - sodium chloride 0.9 % (flush) 10 mL (BD POSIFLUSH) Problem List As Of Date 01/05/2023 Noted Resolved CHRISTIAN (obstructive sleep apnea) [G47.33] 01/07/2014 HTN (hypertension) [I10] 01/07/2014 Dyslipidemia [E78.5] 01/07/2014 Atrial fibrillation (HCC) [I48.91] 07/08/2014 Atherosclerosis of grand ronde tribes coronary artery of na*07/10/2015 Diabetes mellitus type 2, controlled, without c*07/10/2015 Atrial fibrillation, persistent (HCC) [I48.19] 07/22/2015 Paroxysmal atrial fibrillation (HCC) [I48.0] 12/04/2015 Paroxysmal atrial flutter (HCC) [I48.92] 05/30/2018 Obesity, Class III, BMI >= 40 [E66.01] 10/23/2019 Encounter Status:Closed by SUMAN GARVIN on 01/05/[address] [facility] 12-23-2022 [facility] Telephone (CARDMN) JORGE DAVIS ([id number]) 1945 [facility]* Date Time Provider Department 12/23/22 RUBEN DENTON [facility] During your visit today, we recorded the following information about you: Bobbi Sahu 12/23/2022 7:48 AM Signed Patient records received via electronic fax. Uploaded to [employer]. INR 12.20.22 Bobbi Sahu Allergies As of Date: 12/23/2022 (No Known Allergies) Date Reviewed: 06/24/2022 Reviewed by: Ruben Denton MD - Fully Assessed Reason for Visit: Received Outside Medical Records [[id number]] Prescriptions as of 12/23/2022 - ACETAMINOPHEN (TYLENOL 8 HOUR ORAL) Take by mouth as needed. 325 mg - 500 mg only as needed (not more than once per day) - allopurinol 300 mg tablet Take 300 mg by mouth once daily. - COMPOUNDED PRESCRIPTION Skin cream - patient unsure of name. - furosemide (LASIX) 40 mg tablet Take 1 tablet by mouth once daily. - metFORMIN (GLUCOPHAGE) 500 mg tablet Take 500 mg by mouth daily with breakfast. - potassium chloride ER (K-DUR, KLOR-CON) 20 mEq tablet Take 1 tablet by mouth once daily. - pravastatin (PRAVACHOL) 80 mg tablet Take 1 tablet by mouth daily at bedtime. - warfarin (COUMADIN) 1 mg tablet Take 4 mg by mouth once daily. Facility-Administered Medications as of 12/23/2022 - perflutren lipid microspheres 1.3 mL in NaCl (PF) 0.9% 10 mL injection (DEFINITY) - sodium chloride 0.9 % (flush) 10 mL (BD POSIFLUSH) Problem List As Of Date 12/23/2022 Noted Resolved CHRISTIAN (obstructive sleep apnea) [G47.33] 01/07/2014 HTN (hypertension) [I10] 01/07/2014 Dyslipidemia [E78.5] 01/07/2014 Atrial fibrillation (HCC) [I48.91] 07/08/2014 Atherosclerosis of grand r[place] tribes coronary artery of na*07/10/2015 Diabetes mellitus type 2, controlled, without c*07/10/2015 Atrial fibrillation, persistent (HCC) [I48.19] 07/22/2015 Paroxysmal atrial fibrillation (HCC) [I48.0] 12/04/2015 Paroxysmal atrial flutter (HCC) [I48.92] 05/30/2018 Obesity, Class III, BMI >= 40 [E66.01] 10/23/2019 Encounter Status:Closed by BOBBI SAHU on 12/23/22 Normal [facility] XR pre/post mri xrayon 11-24 XR pre/post mri xray [facility] Main [place] [address] [place] [address] MRI Report Signed Patient: Jorge Davis MR#: [id number] 14 : 1945 Acct:[id number] Age/Sex: 77 / M ADM Date: 11/24/22 [facility]: Type[facility] Attending Dr: Ruben Celis MD Copies to: Ruben Celis MD Ordering Provider: Ruben Celis MD Date of Service: 11/24/22 MR/MR lumbar spine wo con: Other spondylosis with radiculopathy, lumbar region ([id number]) XR/XR pre/post mri xray: LUMBAR MRI MR lumbar spine wo con, XR pre/post mri xray 11/24/2022 2:24 PM SIGNS AND SYMPTOMS: Low back pain with bilateral lower extremity radiculopathy, gait disturbance PROTOCOL: Frontal and lateral radiograph the lumbar spine. Multiplanar multisequence MR images of the lumbar spine were obtained without IV contrast. COMPARISON: MRI 04/20/2017. Radiographs 01/09/2017 FINDINGS: Radiographs of the lumbar spine: There is a mild levoconvex curvature of the lumbar spine. There is moderate disc height loss throughout with anterior aspect formation at T12-L1, L1-L2, and L2-L3. There is facet hypertrophy is greatest at L4-5. There is no fracture or subluxation. Atherosclerotic changes are noted in the abdominal aorta. Degenerative changes are noted in the hips. MRI lumbar spine: Alignment is as noted above. Disc height loss is as noted above. There is preservation of vertebral body heights. There is Schmorl's information the endplates at L1, L2, L3, and L4. The marrow signal is within normal limits. The conus terminates at the L1-L2 intervertebral disc level. No epidural or paraspinous fluid collection is appreciated. Simple cysts are noted in the renal cortices. At T12-L1: There is a normal disc, central canal, and neural foramen. At L1-L2: There is a broad-based disc bulge with facet hypertrophy and ligament flavum thickening. There is mild spinal canal narrowing without significant spinal canal stenosis. At L2-L3: There is a circumferential disc bulge with facet hypertrophy and ligament flavum thickening. There is moderate spinal canal stenosis with mild left and moderate right neural foraminal narrowing. At L3-L4: There is a broad-based disc bulge with facet hypertrophy and ligamentum flavum thickening. There is moderate spinal canal stenosis with moderate right and mild left neural foraminal narrowing. At L4-L5: There is a broad-based disc bulge with facet hypertrophy. There is mild spinal canal stenosis with mild left and moderate neural foraminal narrowing. At L5-S1: There is a broad-based disc bulge with endplate osteophyte formation and facet hypertrophy contributing to moderate to severe left and mild right neural foraminal narrowing. There is mass effect on the exiting left L5 nerve roots. MR/MR lumbar spine wo con IMPRESSION: At L5-S1: There is a broad-based disc bulge with endplate osteophyte formation and facet hypertrophy contributing to moderate to severe left and mild right neural foraminal narrowing. There is mass effect on the exiting left L5 nerve roots. At L2-L3: There is a circumferential disc bulge with facet hypertrophy and ligament flavum thickening. There is moderate spinal canal stenosis with mild left and moderate right neural foraminal narrowing. At L3-L4: There is a broad-based disc bulge with facet hypertrophy and ligamentum flavum thickening. There is moderate spinal canal stenosis with moderate right and mild left neural foraminal narrowing. At L4-L5: There is a broad-based disc bulge with facet hypertrophy. There is mild spinal canal stenosis with mild left and moderate neural foraminal narrowing. There is a mild levoconvex curvature of the lumbar spine. Impression dictated by: Ellis Humphreys M.D.11/24/2022 6:03 PM Dictation Location: RADIO-PC-14 Transcribed By: PWS 11/24/221802 Dictated By: Ellis Humphreys II, MD 11/24/221753 Signed By: 11/24/221802 [facility] 10-28-2022 CNPN Telephone (CARDMN) JORGE DAVIS ([id number]) 1945 [facility]* Date Time Provider Department 10/28/22 RUBEN DENTON During your visit today, we recorded the following information about you: Bobbi Sahu 10/28/2022 3:25 PM Signed Patient records received via electronic fax. Uploaded to [employer]. INR 8.17.23 Bobbi Sahu Allergies As of Date: 10/28/2022 (No Known Allergies) Date Reviewed: 06/24/2022 Reviewed by: Ruben Denton MD - Fully Assessed Reason for Visit: Received Outside Medical Records [[id number]] Prescriptions as of 10/28/2022 - warfarin (COUMADIN) 1 mg tablet Take 4 mg by mouth once daily. - metFORMIN (GLUCOPHAGE) 500 mg tablet Take 500 mg by mouth daily with breakfast. - furosemide (LASIX) 40 mg tablet Take 1 tablet by mouth once daily. - COMPOUNDED PRESCRIPTION Skin cream - patient unsure of name. - potassium chloride ER (K-DUR, KLOR-CON) 20 mEq tablet Take 1 tablet by mouth once daily. - pravastatin (PRAVACHOL) 80 mg tablet Take 1 tablet by mouth daily at bedtime. - ACETAMINOPHEN (TYLENOL 8 HOUR ORAL) Take by mouth as needed. 325 mg - 500 mg only as needed (not more than once per day) - allopurinol 300 mg tablet Take 300 mg by mouth once daily. Facility-Administered Medications as of 10/28/2022 - perflutren lipid microspheres 1.3 mL in NaCl (PF) 0.9% 10 mL injection (DEFINITY) - sodium chloride 0.9 % (flush) 10 mL (BD POSIFLUSH) Problem List As Of Date 10/28/2022 Noted Resolved CHRISTIAN (obstructive sleep apnea) [G47.33] 01/07/2014 HTN (hypertension) [I10] 01/07/2014 Dyslipidemia [E78.5] 01/07/2014 Atrial fibrillation (HCC) [I48.91] 07/08/2014 Atherosclerosis of grand [place] tribes coronary artery of na*07/10/2015 Diabetes mellitus type 2, controlled, without c*07/10/2015 Atrial fibrillation, persistent (HCC) [I48.19] 07/22/2015 Paroxysmal atrial fibrillation (HCC) [I48.0] 12/04/2015 Paroxysmal atrial flutter (HCC) [I48.92] 05/30/2018 Obesity, Class III, BMI >= 40 [E66.01] 10/23/2019 Encounter Status:Closed by BOBBI SAHU on 10/28/22 [facility] 10-13-2022 [facility] Tele[facility] (CARDMN) JORGE DAVIS ([id number]) 1945 [facility] Date Time Provider Department 10/13/22 RUBEN DENTON During your visit today, we recorded the following information about you: Bobbi Sahu 10/13/2022 3:55 PM Signed Patient records received via electronic fax. Uploaded to [employer]. INR 8.3.23 Bobbi Sahu Allergies As of Date: 10/13/2022 (No Known Allergies) Date Reviewed: 06/24/2022 Reviewed by: Ruben Denton MD - Fully Assessed Reason for Visit: Received Outside Medical Records [[id number]] Prescriptions as of 10/20/2022 - warfarin (COUMADIN) 1 mg tablet Take 4 mg by mouth once daily. - metFORMIN (GLUCOPHAGE) 500 mg tablet Take 500 mg by mouth daily with breakfast. - furosemide (LASIX) 40 mg tablet Take 1 tablet by mouth once daily. - COMPOUNDED PRESCRIPTION Skin cream - patient unsure of name. - potassium chloride ER (K-DUR, KLOR-CON) 20 mEq tablet Take 1 tablet by mouth once daily. - pravastatin (PRAVACHOL) 80 mg tablet Take 1 tablet by mouth daily at bedtime. - ACETAMINOPHEN (TYLENOL 8 HOUR ORAL) Take by mouth as needed. 325 mg - 500 mg only as needed (not more than once per day) - allopurinol 300 mg tablet Take 300 mg by mouth once daily. Facility-Administered Medications as of 10/20/2022 - perflutren lipid microspheres 1.3 mL in NaCl (PF) 0.9% 10 mL injection (DEFINITY) - sodium chloride 0.9 % (flush) 10 mL (BD POSIFLUSH) Problem List As Of Date 10/13/2022 Noted Resolved CHRISTIAN (obstructive sleep apnea) [G47.33] 01/07/2014 HTN (hypertension) [I10] 01/07/2014 Dyslipidemia [E78.5] 01/07/2014 Atrial fibrillation (HCC) [I48.91] 07/08/2014 Atherosclerosis of grand ronde tribes coronary artery of na*07/10/2015 Diabetes mellitus type 2, controlled, without c*07/10/2015 Atrial fibrillation, persistent (HCC) [I48.19] 07/22/2015 Paroxysmal atrial fibrillation (HCC) [I48.0] 12/04/2015 Paroxysmal atrial flutter (HCC) [I48.92] 05/30/2018 Obesity, Class III, BMI >= 40 [E66.01] 10/23/2019 Encounter Status:Closed by BOBBI SAHU on 10/20/22 Normal [facility] XR knee BI 2Von 10-12-2022 XR knee BI 2V [place] [address] XRay Report Signed Patient: Jorge Davis MR#: [id number] 14 : 1945 Acct:[id number] Age/Sex: 77 / M ADM Date: 10/12/22 Loc: [facility] [place] [place] Room: Type: [facility] Attending Dr: Bruce Shine II, MD Copies to: Bruce Shine MD Ordering Provider: Bruce Shine MD Date of Service: 10/12/22 XR/XR hip BI w PEL1V: Pain in right hip;Pain in left hip ([id number]) XR/XR knee BI 2V: PAIN ADULT PELVIS WITH BILATERAL HIPS - one view each, bilateral knee series 4 views each CLINICAL HISTORY: Bilateral hip/groin pain for years. Bilateral generalized knee pain for years. COMPARISON: None FINDINGS: Hip series: Moderate degenerative changes of both hips without acute bony process. Degenerative change also noted involving the visualized lower lumbar spine, SI joints and pubic symphysis. Bilateral knee series: Bilateral knee prostheses are in place without radiographic complication. No acute bony process is seen. Vascular calcifications. XR/XR hip BI w PEL1V IMPRESSION: MODERATE DEGENERATIVE CHANGES OF BOTH HIPS WITHOUT ACUTE BONY PROCESS. BILATERAL KNEE PROSTHESES WITHOUT RADIOGRAPHIC COMPLICATION. Impression dictated by: Jose Galvan Jr., D.O.10/12/2022 12:41 PM Dictation Location: [place] [address] Transcribed By: [facility] 10/12/22 1241 Dictated By: Jose Galvan Jr, DO 10/12/22 1239 Signed By: 10/12/22 1241 [facility] XR knee BI 2V [facility] Other XR knee BI 2V [facility] Main [facility]idence Other XR knee BI 2V [address] [place] [address] [employer]idence Other XR knee BI 2V [address] [place] Other XR knee BI 2V XRay Report [place] [employer] Other XR knee BI 2V Signed [place] [employer] Other XR knee BI 2V Patient: Corina Davis MR#: [id number] [facility] Other XR knee BI 2V 14 [facility] [employer] Other XR knee BI 2V : 1945 Acct:[id number] [employer] Other XR knee BI 2V Age/Sex: 77 / M ADM Date: 10/12/22 [employer] Other XR knee BI 2V Loc: [facility] Room: Type : [facility] [employer] Other XR knee BI 2V Attending Dr: Bruce Shine II, MD [employer] Other XR knee BI 2V Copies to: Bruce Shine MD [employer] Other XR knee BI 2V Ordering Provider: Bruce Shine MD [employer] Other XR knee BI 2V Date of Service: 10/12/22 [employer] Other XR knee BI 2V XR/XR hip BI w PEL1V: Pain in right hip;Pain in left hip [employer] Other XR knee BI 2V ([id number]) XR/XR knee BI 2V: PAIN [employer] Other XR knee BI 2V ADULT PELVIS WITH BILATERAL HIPS - one view each, bilateral knee series 4 views each [employer] Other XR knee BI 2V CLINICAL HISTORY: Bilateral hip/groin pain for years. Bilateral generalized knee pain for years. [employer] Other XR knee BI 2V COMPARISON: None [employer] Other XR knee BI 2V FINDINGS: [employer] Other XR knee BI 2V Hip series: Moderate degenerative changes of both hips without acute bony process. Degenerative [employer] Other XR knee BI 2V change also noted involving the visualized lower lumbar spine, SI joints and pubic symphysis. [employer] Other XR knee BI 2V Bilateral knee serie s: Bilateral knee prostheses are in place without radiographic complication. No [employer] Other XR knee BI 2V acute bony process i s seen. Vascular calcifications. [employer] Other XR knee BI 2V XR/XR hip BI w PEL1V [employer] Other XR knee BI 2V IMPRESSION: [employer] Other XR knee BI 2V MODERATE DEGENERATIV E CHANGES OF BOTH HIPS WITHOUT ACUTE BONY PROCESS. [employer] Other XR knee BI 2V BILATERAL KNEE PROSTHESES WITHOUT RADIOGRAPHIC COMPLICATION. [employer] Other XR knee BI 2V Impression dictated by: Jose Galvan Jr., Rubens10/12/2022 12:41 PM [employer] Other XR knee BI 2V Dictation Location: [place] [address] [employer] Other XR knee BI 2V Transcribed By: JENNIFER 10/12/22 124 [employer] Other XR knee BI 2V Dictated By: Jose Galvan Jr, DO 10/12/22 1239 [employer] Other XR knee BI 2V Signed By: [employer] Other XR knee BI 2V 10/12/22 1241 [employer] [facility] 09-16-2022 TATAN Telephone (PRESLEY) JORGE DAVIS ([id number]) 1945 [facility]* Date Time Provider Department 09/16/22 RUBEN DENTON During your visit today, we recorded the following information about you: Suman Garvin 09/16/2022 7:49 AM Signed Outside medical records (INR report) scanned into shared [address]. Allergies As of Date: 09/16/2022 (No Known Allergies) Date Reviewed: 06/24/2022 Reviewed by: Ruben Denton MD - Fully Assessed Reason for Visit: Received Outside Medical Records [[id number]] Cmt: INR Report Prescriptions as of 10/27/2022 - warfarin (COUMADIN) 1 mg tablet Take 4 mg by mouth once daily. - metFORMIN (GLUCOPHAGE) 500 mg tablet Take 500 mg by mouth daily with breakfast. - furosemide (LASIX) 40 mg tablet Take 1 tablet by mouth once daily. - COMPOUNDED PRESCRIPTION Skin cream - patient unsure of name. - potassium chloride ER (K-DUR, KLOR-CON) 20 mEq tablet Take 1 tablet by mouth once daily. - pravastatin (PRAVACHOL) 80 mg tablet Take 1 tablet by mouth daily at bedtime. - ACETAMINOPHEN (TYLENOL 8 HOUR ORAL) Take by mouth as needed. 325 mg - 500 mg only as needed (not more than once per day) - allopurinol 300 mg tablet Take 300 mg by mouth once daily. Facility-Administered Medications as of 10/27/2022 - perflutren lipid microspheres 1.3 mL in NaCl (PF) 0.9% 10 mL injection (DEFINITY) - sodium chloride 0.9 % (flush) 10 mL (BD POSIFLUSH) Problem List As Of Date 09/16/2022 Noted Resolved CHRISTIAN (obstructive sleep apnea) [G47.33] 01/07/2014 HTN (hypertension) [I10] 01/07/2014 Dyslipidemia [E78.5] 01/07/2014 Atrial fibrillation (HCC) [I48.91] 07/08/2014 Atherosclerosis of grand [place] tribes coronary artery of na*07/10/2015 Diabetes mellitus type 2, controlled, without c*07/10/2015 Atrial fibrillation, persistent (HCC) [I48.19] 07/22/2015 Paroxysmal atrial fibrillation (HCC) [I48.0] 12/04/2015 Paroxysmal atrial flutter (HCC) [I48.92] 05/30/2018 Obesity, Class III, BMI >= 40 [E66.01] 10/23/2019 Encounter Status:Closed by SUMAN GARVIN on 10/27/22 [facility] 09-07-2022 CNPN Telephone (CARDAV) JORGE DAVIS ([id number]) 1945 [place] Date Time Provider Department 09/07/22 VENKAT EVANS During your visit today, we recorded the following information about you: Morales Huynh MA 09/07/2022 11:31 AM Signed Received lab results from [facility]. No upcoming appts. Sent for scanning. Allergies As of Date: 09/07/2022 (No Known Allergies) Date Reviewed: 06/24/2022 Reviewed by: Ruben Denton MD - Fully Assessed Reason for Visit: Results [95] Prescriptions as of 09/07/2022 - warfarin (COUMADIN) 1 mg tablet Take 4 mg by mouth once daily. - metFORMIN (GLUCOPHAGE) 500 mg tablet Take 500 mg by mouth daily with breakfast. - furosemide (LASIX) 40 mg tablet Take 1 tablet by mouth once daily. - COMPOUNDED PRESCRIPTION Skin cream - patient unsure of name. - potassium chloride ER (K-DUR, KLOR-CON) 20 mEq tablet Take 1 tablet by mouth once daily. - pravastatin (PRAVACHOL) 80 mg tablet Take 1 tablet by mouth daily at bedtime. - ACETAMINOPHEN (TYLENOL 8 HOUR ORAL) Take by mouth as needed. 325 mg - 500 mg only as needed (not more than once per day) - allopurinol 300 mg tablet Take 300 mg by mouth once daily. Facility-Administered Medications as of 09/07/2022 - perflutren lipid microspheres 1.3 mL in NaCl (PF) 0.9% 10 mL injection (DEFINITY) - sodium chloride 0.9 % (flush) 10 mL (BD POSIFLUSH) Problem List As Of Date 09/07/2022 Noted Resolved CHRISTIAN (obstructive sleep apnea) [G47.33] 01/07/2014 HTN (hypertension) [I10] 01/07/2014 Dyslipidemia [E78.5] 01/07/2014 Atrial fibrillation (HCC) [I48.91] 07/08/2014 Atherosclerosis of grand r[place] tribes coronary artery of na*07/10/2015 Diabetes mellitus type 2, controlled, without c*07/10/2015 Atrial fibrillation, persistent (HCC) [I48.19] 07/22/2015 Paroxysmal atrial fibrillation (HCC) [I48.0] 12/04/2015 Paroxysmal atrial flutter (HCC) [I48.92] 05/30/2018 Obesity, Class III, BMI >= 40 [E66.01] 10/23/2019 Encounter Status:Closed by MORALES HUYNH on 09/07/[address] [facility] 09-01-2022 CNPN Telephone (CARDMN) JORGE DAVIS ([id number]) 1945 [place]* Date Time Provider Department 09/01/22 RUBEN DENTON During your visit today, we recorded the following information about you: Bobbi Sahu 09/01/2022 2:40 PM Signed Patient records received via electronic fax. Uploaded to [email or web address] Bobbi Sahu Allergies As of Date: 09/01/2022 (No Known Allergies) Date Reviewed: 06/24/2022 Reviewed by: Ruben Denton MD - Fully Assessed Reason for Visit: Received Outside Medical Records [[id number]] Prescriptions as of 09/01/2022 - warfarin (COUMADIN) 1 mg tablet Take 4 mg by mouth once daily. - metFORMIN (GLUCOPHAGE) 500 mg tablet Take 500 mg by mouth daily with breakfast. - furosemide (LASIX) 40 mg tablet Take 1 tablet by mouth once daily. - COMPOUNDED PRESCRIPTION Skin cream - patient unsure of name. - potassium chloride ER (K-DUR, KLOR-CON) 20 mEq tablet Take 1 tablet by mouth once daily. - pravastatin (PRAVACHOL) 80 mg tablet Take 1 tablet by mouth daily at bedtime. - ACETAMINOPHEN (TYLENOL 8 HOUR ORAL) Take by mouth as needed. 325 mg - 500 mg only as needed (not more than once per day) - allopurinol 300 mg tablet Take 300 mg by mouth once daily. Facility-Administered Medications as of 09/01/2022 - perflutren lipid microspheres 1.3 mL in NaCl (PF) 0.9% 10 mL injection (DEFINITY) - sodium chloride 0.9 % (flush) 10 mL (BD POSIFLUSH) Problem List As Of Date 09/01/2022 Noted Resolved CHRISTIAN (obstructive sleep apnea) [G47.33] 01/07/2014 HTN (hypertension) [I10] 01/07/2014 Dyslipidemia [E78.5] 01/07/2014 Atrial fibrillation (HCC) [I48.91] 07/08/2014 Atherosclerosis of grand [place] tribes coronary artery of na*07/10/2015 Diabetes mellitus type 2, controlled, without c*07/10/2015 Atrial fibrillation, persistent (HCC) [I48.19] 07/22/2015 Paroxysmal atrial fibrillation (HCC) [I48.0] 12/04/2015 Paroxysmal atrial flutter (HCC) [I48.92] 05/30/2018 Obesity, Class III, BMI >= 40 [E66.01] 10/23/2019 Encounter Status:Closed by BOBBI SAHU on 09/01/22 Normal [facility] A1C with Estimated Average G [facility] 05-16-2022 A1C with Estimated Average Glu [employer] Other GLYCOHEMOGLOBIN A1Con 2022 ADA RECOMMENDATION SEE BELOW Normal [facility] Comment on above: Result Comment: ADA RECOMMENDED LIMIT 4.0 - 6.0 ADA THERAPEUTIC TARGET < 7.0 ACTION SUGGESTED > 7.0 Performed By: #### A 1C #### [facility] [address] [place] [address] [address] Edna Machado Glucose [Mass/Vol] 131 mg/dL Normal [facility] Comment on above: Performed By: #### A 1C #### [facility] [address] [place], [place] [address] Dr. Edna Machado HbA1c (Bld) [Mass fraction] 6.2 % Normal 4.5-6.2 [facility] Comment on above: Performed By: #### A 1C #### [facility] [address] [place] [address] CHEST WO CONon 09-24-2021 CT CHEST WO CON EXAMINATION: CT CHES T WO CON HISTORY: Solitary nodule of lung COMPARISON: 10/15/2020, 11/23/2018, ultrasound 01/17/2020 TECHNIQUE: Multi-planar CT images were created with IV contrast. Axial, Coronal, and Sagittal images. Dose reduction techniques were achieved by using automated exposure control and/or adjustment of mA and/or kV according to patient size and/or use of iterative reconstruction technique. FINDINGS: LUNGS: 11.6 x 9.3 cm solid nodule identified in the posterior basilar segment of the right lower lobe axial image 75, stable from the prior exam. A few scattered calcified pulmonary nodules also stable. No new significant pulmonary nodule or mass is observed PLEURA: No mass, effusion, or pneumothorax. VASCULATURE: No abnormality. JOÃO: Calcified right hilar lymph nodes MEDIASTINUM: No mass or adenopathy. CARDIAC: No enlargement or pericardial effusion. Soft tissue density in the anterior mediastinal fat axial image 45 measuring 1.4 cm, a lymph node is suspected, unchanged. Mild coronary atherosclerosis. AORTA: No aneurysm or dissection. CHEST WALL: No mass or axillary adenopathy. BONES: Mild to moderate degenerative changes LIMITED ABDOMEN: 3.2 cm exophytic lesion along the left kidney the visualized portions are grossly stable from the prior ultrasound however this lesion is indeterminate stable OTHER: Negative. IMPRESSION: Stable scattered pulmonary nodules the largest noncalcified nodules in the right lower lobe measuring 11.6 mm No new significant pulmonary nodule or mass Partially visualized 3.2 cm left renal exophytic lesion, grossly stable from the prior exams but indeterminate Electronically authenticated by: GLENDA FENG Date: 2021-09-24 13:29 Normal [facility] CBC AUTO DIFFon 09-22-2021 BASO # 0.0 103/ul Normal 0.0-0.1 [facility] Comment on above: Performed By: #### C BC #### [facility] [address], [place] [address] Dr. Edna Machado Basophils/100 WBC (Bld) 0.5 % Normal 0.2-2.0 [facility] Comment on above: Performed By: #### C BC #### [facility] [address] [place] [address] Dr. Edna Machado EO # 0.1 103/ul Normal 0.0-0.7 [facility] Comment on above: Performed By: #### C BC #### [facility] [address] [place] [address] Dr. Edna Machado Eosinophils/100 WBC (Bld) 1.4 % Normal 0.9-7.0 [facility] Comment on above: Performed By: #### C BC #### [facility] [address] [place] [address] Dr. Edna Machado Erythrocyte distribution width (RBC) [Ratio] 14.6 % Normal 11.0-15.0 [facility] Comment on above: Performed By: #### C BC #### [facility] [address] [place] [address] Dr. Edna Machado Hematocrit (Bld) [Volume fraction] 46.5 % Normal 42.0-54.0 [facility] Comment on above: Performed By: #### C BC #### [facility] [address] [place] [address] Dr. Edna Machado Hemoglobin (Bld) [Mass/Vol] 15.0 g/dL Normal 14.0-18.0 [facility] Comment on above: Performed By: #### C BC #### [facility] [address] [place] [address] Dr. Edna Machado IG # 0.01 10e3/ul Normal 0.00-0.03 [facility] Comment on above: Performed By: #### C BC #### [facility] [address] [place] [address] Dr. Edna Machado IG % 0.1 % Normal 0.0-0.5 [facility] Comment on above: Performed By: #### C BC #### [facility] [address] [place] [address] Dr. Edna Machado LYMPH # 2.1 103/ul Normal 1.2-3.8 [facility] Comment on above: Performed By: #### C BC #### [facility] [address] [place] [address] Dr. Edna Machado Lymphocytes/100 WBC (Bld) 27.8 % Normal 20.5-60.0 [facility] Comment on above: Performed By: #### C BC #### [facility] [address] [place] [address] Dr. Edna Machado MANUAL DIFF REQ NO Normal [facility] Comment on above: Performed By: #### C BC #### [facility] [address] [place] [address] Dr. Edna Machado MCH (RBC) [Entitic mass] 29.0 pg Normal 25.9-34.0 [facility] Comment on above: Performed By: #### C BC #### [facility] [address] [place] [address] Dr. Edna Machado MCHC (RBC) [Mass/Vol] 32.3 g/dL Normal 29.9-35.2 [facility] Comment on above: Performed By: #### C BC #### [facility] [address] [place] [address] Dr. Edna Machado MCV (RBC) [Entitic vol] 89.8 fL Normal 80.0-94.0 [facility] Comment on above: Performed By: #### C BC #### [facility] [address] [place] [address] Dr. Edna Machado MONO # 0.6 103/ul Normal 0.3-0.8 [facility] Comment on above: Performed By: #### C BC #### [facility] [address] [place] [address] Dr. Edna Machado Monocytes/100 WBC (Bld) 8.3 % Normal 1.7-12.0 [facility] Comment on above: Performed By: #### C BC #### [facility] [address] [place] [address] Dr. Edna Machado NEUT # 4.6 103/ul Normal 1.4-6.5 [facility] Comment on above: Performed By: #### C BC #### [facility] [address] [place] [address] [address] Edna Machado Neutrophils/100 WBC (Bld) 61.9 % Normal 43.0-75.0 [facility] Comment on above: Performed By: #### C BC #### [facility] [address] [place] [address] Dr. Edna Machado Platelet mean volume (Bld) [Entitic vol] 10.0 fL Normal 9.5-13.5 [facility] Comment on above: Performed By: #### C BC #### [facility] [address] [place] [address] [address] Edna Machado PLT 218 103/ul Normal 150-450 [facility] Comment on above: Performed By: #### C BC #### [facility] [address] [place] [address] Dr. Edna Machado RBC 5.18 106/ul Normal 4.70-6.10 [facility] Comment on above: Performed By: #### C BC #### [facility] [address] [place] [address] Dr. Edna Machado WBC 7.4 103/ul Normal 4.0-11.0 [facility] Comment on above: Performed By: #### C BC #### [facility] [address] [place] [address] Dr. Edna Machado GLYCOHEMOGLOBIN A1Con 2021 ADA RECOMMENDATION SEE BELOW Normal [facility] Comment on above: Result Comment: ADA RECOMMENDED LIMIT 4.0 - 6.0 ADA THERAPEUTIC TARGET < 7.0 ACTION SUGGESTED > 7.0 Performed By: #### A 1C #### [facility] [address] [place] [address] Dr. Edna Machado Glucose [Mass/Vol] 123 mg/dL Normal [facility] Comment on above: Performed By: #### A 1C #### [facility] [address] [place] [address] Dr. Edna Machado HbA1c (Bld) [Mass fraction] 5.9 % Normal 4.5-6.2 [facility] Comment on above: Performed By: #### A 1C #### [facility] [address] [place] [address] [address] Edna Machado LIPID PROFILEon 09-22-2021 CHOL-HDL RATIO NORM SEE BELOW Normal [facility] Comment on above: Result Comment: 3.3 - 4.4 LOW RISK 4.4 - 7.1 AVERAGE RISK 7.1 - 11.0 MODERATE RISK >11.0 HIGH RISK Performed By: #### L IPID, CMP #### [facility] [address] [place] [address] [address] Edna Machado Cholesterol [Mass/Vol] 132 mg/dL Normal <=200 [facility] Comment on above: Performed By: #### L IPID, CMP #### [facility] [address] [place] [address] [address] Edna Machado Cholesterol in HDL [Mass/Vol] 43 mg/dL Normal 40-60 [facility] Comment on above: Performed By: #### L IPID, CMP #### [facility] [address] [place] [address] [address] Edna Machado Cholesterol in LDL [Mass/Vol] 71.0 mg/dL Normal [facility] Comment on above: Performed By: #### L IPID, CMP #### [facility] [address] [place] [address] [address] Edna Machado Cholesterol.total/C holesterol in HDL [Mass ratio] 3.1 {ratio} Normal [facility] Comment on above: Performed By: #### L IPID, CMP #### [facility] [address] [place] [address] [address] Edna Machado HDL NORMAL > or = 60 mg/dl - LO W CARDIOVASCULAR RISK <40 mg/dl - HIGH CARDIOVASCULAR RISK Normal [facility] Comment on above: Performed By: #### L IPID, CMP #### [facility] [address] [place] [address] [address] Edna Machado LDL CALC NORMAL SEE BELOW Normal [facility] Comment on above: Result Comment: <100 mg/dl OPTIMAL 100 - 129 mg/dl NEAR OR ABOVE OPTIMAL 130 - 159 mg/dl BORDERLINE HIGH 160 - 189 mg/dl HIGH >190 mg/dl VERY HIGH Performed By: #### L IPID, CMP #### [facility] [address] [place] [address] [address] Edna Machado Triglyceride [Mass/Vol] 90 mg/dL Normal <=150 [facility] Comment on above: Performed By: #### L IPID, CMP #### [facility] [address] [place] [address] Dr. Edna Machado VLDL CALC 18.0 mg/dL Normal [facility] Comment on above: Performed By: #### L IPID, CMP #### [facility] [address] [place] [address] [address] Edna Machado PROF 14(COMP METB)on 022 Albumin [Mass/Vol] 3.5 g/dL Normal 3.4-5.0 [facility] Comment on above: Performed By: #### L IPID, CMP #### [facility] [address] [place] [address] Dr. Edna Machado Albumin/Globulin [Mass ratio] 0.9 {ratio} Normal [facility] Comment on above: Performed By: #### L IPID, CMP #### [facility] [address] [place] [address] Dr. Edna Machado ALP [Catalytic activity/Vol] 83 U/L Normal 46-116 [facility] Comment on above: Performed By: #### L IPID, CMP #### [facility] [address] [place] [address] Dr. Edna Machado ALT [Catalytic activity/Vol] 22 U/L Normal 16-63 [facility] Comment on above: Performed By: #### L IPID, CMP #### [facility] [address] [place] [address] Dr. Edna Machado Anion gap [Moles/Vol] 9.4 mmol/L Normal [facility] Comment on above: Performed By: #### L IPID, CMP #### [facility] [address] [place] [address] Dr. Edna Machado AST [Catalytic activity/Vol] 13 U/L Critically low 15-37 [facility] Comment on above: Performed By: #### L IPID, CMP #### [facility] [address] [place] [address] [address] Edna Machado Bilirubin [Mass/Vol] 0.6 mg/dL Normal 0.2-1.0 [facility] Comment on above: Performed By: #### L IPID, CMP #### [facility] [address] [place] [address] Dr. Edna Machado Calcium [Mass/Vol] 8.7 mg/dL Normal 8.5-10.1 [facility] Comment on above: Performed By: #### L IPID, CMP #### [facility] [address] [place] [address] Dr. Edna Machado Chloride [Moles/Vol] 103 mmol/L Normal 98-107 [facility] Comment on above: Performed By: #### L IPID, CMP #### [facility] [address] [place] [address] Dr. Edna Machado CO2 [Moles/Vol] 28.7 mmol/L Normal 21.0-32.0 [facility] Comment on above: Performed By: #### L IPID, CMP #### [facility] [address] [place] [address] Dr. Edna Machado Creatinine [Mass/Vol] 0.83 mg/dL Normal 0.70-1.30 [facility] Comment on above: Performed By: #### L IPID, CMP #### [facility] [address] [place] [address] Dr. Edna Machado EGFR-AF NAURUAN >60 Normal >=60 [facility] Comment on above: Performed By: #### L IPID, CMP #### [facility] [address] [place] [address] Dr. Edna Machado EGFR-NON AF NAURUAN >60 Normal >=60 [facility] Comment on above: Performed By: #### L IPID, CMP #### [facility] [address] [place] [address] Dr. Edna Machado Globulin (S) [Mass/Vol] 3.7 g/dL Normal [facility] Comment on above: Performed By: #### L IPID, CMP #### [facility] [address] [place] [address] [address] Edna Machado Glucose [Mass/Vol] 106 mg/dL Normal 74-106 [facility] Comment on above: Performed By: #### L IPID, CMP #### [facility] [address] [place] [address] [address] Edna Machado Potassium [Moles/Vol] 4.1 mmol/L Normal 3.5-5.1 [facility] Comment on above: Performed By: #### L IPID, CMP #### [facility] [address] [place] [address] [address] Edna Machado Protein [Mass/Vol] 7.2 g/dL Normal 6.4-8.2 [facility] Comment on above: Performed By: #### L IPID, CMP #### [facility] [address] [place] [address] [address] Edna Machado Sodium [Moles/Vol] 137 mmol/L Normal 136-145 [facility] Comment on above: Performed By: #### L IPID, CMP #### [facility] [address] [place] [address] [address] Edna Machado Urea nitrogen [Mass/Vol] 11.0 mg/dL Normal 7.0-18.0 [facility] Comment on above: Performed By: #### L IPID, CMP #### [facility] [address] [place] [address] Dr. Edna Machado Urea nitrogen/Creatinine [Mass ratio] 13.3 mg/mg Normal [facility] Comment on above: Performed By: #### L IPID, CMP #### [facility] [address] [place] [address] Dr. Edna Machado Ambulatory Clinical Summaryo n 02-28-2020 Ambulatory Clinical Summary {[id number] Normal [facility] [place] [facility] Patient Educationon 12-18-20 20 Patient Education Family Medicine Benign Prostatic Hyperplasia You have an enlarged prostate. This is common in elderly males. It is called BPH. This stands for benign prostate hyperplasia. The prostate gland is located in base of the bladder. When it grows, the prostate blocks the urethra. This is the tube which drains urine from the bladder. SYMPTOMS ? Weak urine stream. ? Dribbling. ? Feeling like the bladder has not emptied completely. ? Difficulty starting urination. ? Getting up frequently at night to urinate. ? Urinating more frequently during the day. Complete urinary blockage or severe pain with urination requires immediate attention. DIAGNOSIS ? Your caregiver often has a good idea what is wrong by taking a history and doing a physical exam. ? Special x-rays may be done. TREATMENT ? For mild problems, no treatment may be necessary. ? If the problems are moderate, medications may provide relief. Some of these work by making the prostate gland smaller. The herb saw palmetto is commonly used. ? If complete blockage occurs, a Moses catheter is usually left in place for a few days. ? Surgery is often needed for more severe problems. TURP is the prostate surgery for BPH which is done through the urethra. TURP stands for transurethral resection of the prostate. It involves cutting away chips from the prostate. It is done by removing chips so that they can come out through the penis. ? Techniques using heat, microwave and laser to remove the prostate blockage are also being used. HOME CARE INSTRUCTIONS ? Give yourself time when you urinate. ? Stay away from alcohol. ? Beverages containing caffeine such as coffee, tea and sandhya can make the problems worse. ? Decongestants, antihistamines, and some prescription medicines can also make the problem worse. ? Follow up with your caregiver for further treatment as recommended. SEEK IMMEDIATE MEDICAL CARE IF: ? You develop increased pain with urination or are unable to pass your water. ? You develop severe abdominal pain, vomiting, a high fever, or fainting. ? You develop back pain or blood in your urine. MAKE SURE YOU: ? Understand these instructions. ? Will watch your condition. ? Will get help right away if you are not doing well or get worse. Document Released: 02/27/2006 Document Revised: 05/21/2012 Document Reviewed: 11/02/2007 ExitCare? Patient Information ?2013 [employer] [facility] Urology Office/Clinic Noteon 02-28-2020 Urology Office/Clinic Note Chief Complaint 1 year f/u with PSA HPI Staff Pt is here for 1 year with PSA. Previous dx of BPH with urinary obstruction, nocturia, urgency and anticoagulated. Current PSA done 10/10/2019 is 0.98. Pt continues taking Allopurinol 300mg 1x daily. Renal US done 01/17/2020 showed round hypoechoic structure within the superior pole of the right kidney suspected to represent a benign cyst. Dysuria: no Incomplete bladder emptying: no Hematuria: no Frequency: no Urgency: no Nocturia: dependant on how much he drinks Stream: good with no hesitancy Leaking: no Post void dripping: no Wearing pads/ Depends: no Urge incontinence: no Stress incontinence: no Incontinence without Sensory Awareness: no Abdominal pain: no Flank pain: no Sexual complaints: no History of Present Illness reviewed Renal US and PSA. There have been no associated fever, chills, flank pain or blood in the urine. Pt is not having any burning. Review of Systems PHQ Score Initial Depression Screen Score: 0 ROS - Provider Constitutional: denies weight loss, denies hot flashes. Eyes: denies eye problems. Gastrointestinal: denies nausea, denies vomiting. Cardiovascular: denies chest pain or angina. Integumentary: no dryness Musculoskeletal: denies musculoskeletal symptoms. ENMT: denies otolaryngeal symptoms. Respiratory: no shortness of breath. Heme/Lymph: denies easy bleeding tendency, denies easy bruising tendency. Psychiatric: no confusion, no anxiety. Genitourinary: denies dysuria, denies hematuria, denies discharge, denies urinary frequency, denies urinary hesitancy, denies nocturia, denies incontinence, denies genital sores, denies decreased libido, and denies erectile dysfunction. Physical Exam Vitals & Measurements HR: 62(Peripheral) RR: 16 BP: 108/68 HT: 165 cm HT: 165.0 cm WT: 121.7 kg WT: 121.7 kg BMI: 44.7 General Appearance: alert, no distress, well nourished, well developed male. Genitourinary: normal scrotum, normal testes, normal urethra, normal epididymis, normal vas deferens/spermatic cord. Flank Pain: none. Bladder: nonpalpable. Prostate: normal prostate, estimated weight 35 gms, no hard nodule observed. Assessment/Plan 1. BPH with urinary obstruction (N40.1: Benign prostatic hyperplasia with lower urinary tract symptoms) S/P TURP done 10/2016. He is voiding well.. Pt is currently not on any BPH medications. Recent PSA was done 10/10/19 and was at 0.98. I discussed stopping the PSA checks, due to the PSA stability, and his advancing age. He is aware that his chances of developing and having problems from prostate cancer at this point are quite low. He agrees to stop the PSA checks. Pt states that he has lost a significant amount of weight and is not having any urinary concerns at this time. UA is clear of any blood or infections at this time. Talked with pt that if there is any issues with urination pt is to call and then can restart flomax, pt will be PRN 2. Renal cyst, right, (N28.1: Cyst of kidney, acquired) Renal US done 01/17/20 and shows a 3.7cm simple cyst projecting from the superior pole. Renal cyst, left 4. Former smoker (Z87.891: Personal history of nicotine dependence) 5. 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 Daniel He will f/u prn. Patient Education Benign Prostatic Hyperplasia I, Lou Chavez, personally scribed for Dr. Daniel on 02/28/2020 09:31:10. . Documentation recorded by the scribe, Lou Chavez, accurately reflects the services(s) I performed and decisions made by me. Authenticated by Dr. Daniel on 02/28/2020 09:33:49. Problem List/Past Medical History Ongoing Anticoagulated Atrial fibrillation BMI 40.0-44.9, adult BPH with urinary obstruction COPD with hypoxia Former smoker Hematuria History of bladder stone History of colon polyps History of peptic ulcer Nocturia Osteoarthritis Renal cyst, left Renal cyst, right Urinary urgency Historical No qualifying data Procedure/Surgical History TURP - Transurethral resection of prostate (10/13/2016), Cystoscopy (01/13/2015), Chondroplasty (03/13/2005), Arthroscopic repair of rotator cuff, Arthroscopy of knee, Arthroscopy of shoulder, club foot repair, Colonoscopy, hernia repair, Knee replacement. Medications allopurinol, 300 mg, Oral, Daily Eliquis 5 mg oral tablet, 5 mg= 1 tab(s), Oral, BID Lasix, 40 mg, Oral, Daily metformin 500 mg Tab, 500 mg= 1 tab(s), Oral, Daily potassium acetate, 20 mEq, Oral, Daily pravastatin, 80 mg, Oral, Daily Allergies No Known Allergies Social History Alcohol - Denies Alcohol Use, 03/01/2019 Substance Abuse - Denies Substance Abuse, 03/01/2019 Tobacco - Denies Tobacco Use, 03/01/2019 Former smoker, quit more than 30 days ago Tobacco Use:. Cigarettes, 03/01/2019 Family History Cancer - unknown origin: Father. Diabetes mellitus type 2: Mother and Father. Heart disease: Mother. Immunizations Vaccine Date Status Comments influenza virus vaccine, inactivated - Not Given Patient Refuses Lab Results Ambulatory Point of Care Results Bilirubin Urine Dipstick: Negative (02/28/20 08:57:00) Blood Urine Dipstick: Negative (02/28/20 08:57:00) Glucose Urine Dipstick: Negative (02/28/20 08:57:00) Ketones Urine Dipstick: Negative (02/28/20 08:57:00) Leukocytes Urine Dipstick: Negative (02/28/20 08:57:00) Nitrite Urine Dipstick: Negative (02/28/20 08:57:00) Protein Urine Dipstick: Negative (02/28/20 08:57:00) Specific [place] Urine Dipstick: 1.020 (02/28/20 08:57:00) Urine Appearance Urine Dipstick: Clear (02/28/20 08:57:00) Urine Color Urine Dipstick: Yellow (02/28/20 08:57:00) Urobilinogen Urine Dipstick: Normal 0.2-1 EU/dl (02/28/20 08:57:00) pH Urine Dipstick: 5 (02/28/20 08:57:00) Normal [facility] Comment on above: Result Comment: Elec tronically Signed By: MARÍA REYNOSO, David [email or web address]\Date and Time Signed: 02/28/20 09:34 EST\.br\Electronically Co-Signed By: Lou Chavez MA\.br\Date and Time Co-Signed: 02/28/20 09:31 EST Reminderson 01-21-2020 Reminders - From: Mandy Bashir To: [facility] Clinical; Sent: 01/08/2020 09:45:38 EDT Show up: 01/17/2020 09:45:00 EST Subject: renal US Due Date/Time: 01/22/2020 09:45:00 EST Reminder/Recall Pt sched 01/17/20 @ 7:45am, Betsy Salcido for renal US, Order faxed Show PRW, pt to be called with results Please review Renal US and call pt with results.LG From: Mandy Bashir ([facility] Clinical) To: David DANIEL MD; Sent: 01/20/2020 14:07:31 EST Show up: 01/20/2020 14:07:00 EST Subject: RE: renal US From: David DANIEL MD To: [facility] [facility] Clinical; Sent: 01/20/2020 15:25:17 EST Show up: 01/20/2020 15:24:00 EST Subject: RE: renal US no stones. one cyst. no mass pw. Patient was notified of results.LG Normal [facility] RAD - Ultrasound Reporton RAD - Ultrasound Report [id number] CD:127 Normal [facility] UroVysion Fish and Urine Cyt o (P4 Labs)on 01-17-2020 UVFISH & UC Diagnosis Info [facility] Comment on above: Result Comment: A:Ur ine,Urine:Voided Diagnosis Summary - Negative for malignancy. Diagnosis Summary - The UroVysion FISH study detected normal copy numbers for chromosomes 3, 7, 17, and 9p21. 29 cells were analyzed in this evaluation. No evidence of aneuploidy for chromosomes 3, 7, or 17 or deletion of the 9p21 locus was found in cells present in this specimen. This test does not rule out the possibility of a low grade non-invasive papillary urothelial carcinoma. These findings should be correlated with cytology and cystoscopy results.* Microscopic Notes - Microscopic Notes - Abnormal cells 9p21 deletions: Abnormal cells aneploid events: Total cells analyzed: 29 Hematuria: Gross Description Site ID:A color Yellow fixative Alcohol Received 80 mls of clear yellow fluid with the patient's name and, Urine on the vial. Electronically signed by : on: 01/17/2020 07:53:07 Performed By: #### 1 [id number] ####[facility] [id number] [place] [address] Coding Summary.on 01-08-2020 Coding Summary. CODING DATE: 01/08/2020 FINAL [facility] STATUS: Home (Routine DC) PAYOR: Medicare APC DESCRIPTION 5372 Level 2 Urology and Related Services ADMIT DX: REASON FOR VISIT DX: R31.0 Gross hematuria FINAL DX: PRINCIPAL: R31.0 Gross hematuria SECONDARY: N40.1 Benign prostatic hyperplasia with lower urinary tract symptoms R31.29 Other microscopic hematuria I10 Essential (primary) hypertension I25.10 Atherosclerotic heart disease of [place] coronary artery without angina pectoris E78.5 Hyperlipidemia, unspecified E11.9 Type 2 diabetes mellitus without complications J44.9 Chronic obstructive pulmonary disease, unspecified E66.01 Morbid (severe) obesity due to excess calories Z68.41 Body mass index [BMI]40.0-44.9, adult I49.9 Cardiac arrhythmia, unspecified Z79.01 senior living (current) use of anticoagulants Z79.84 senior living (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 However, the narrative phrase printed from the coding software may appear abbreviated, or result in slightly different terminology. Coded By: Edwina Marie Date Saved: 01/08/2020 10:47 am [facility] Consent for Procedure/Surger yon 01-08-2020 Consent for Procedure/Surgery [id number]#1. 00CD:127 [facility] Discharge Instructionson Discharge Instructions [id number]#1. 00CD:127 [facility] History and Physicalon 01-07 History and Physical [id number]. 00CD:127 [facility] IntraOperative Documentson IntraOperative Documents [id number]. 00CD:127 [facility] Consent for Treatmenton 12-12 Consent for Treatment [id number] 0CD:127 [facility] Main OR Intraoperative Recor don 01-07-2020 Main OR Intraoperative Record IntraOp Document Type FTURO Summary Primary Physician: David DANIEL MD Finalized Date/Time: 01/07/20 10:17:52 Pt. Name: JORGE DAVIS/Sex: 1945 Male Med Rec #: [id number] Physician: David DANIEL MD Financial #: [id number] Pt. Type: O Room/Bed: / Admit/Disch: 01/07/20 09:23:05 - Institution: Case Times FTURO Entry 1 Patient Times In Room 01/07/20 10:00:00 Out Room 01/07/20 10:23:00 Procedure Times Start 01/07/20 10:11:00 Stop 01/07/20 10:18:00 Anesthesia Times Last Modified By: Harmony KILLIAN, Ronda SOLO 01/07/20 10:15:32 Case Attendance FTURO Entry 1 Entry 2 Entry 3 Case Attendee MARÍA REYNOSO, David Antunez RN, JASWANTOR, Catherine WILSON, Maday Bond Role Performed Surgeon - Primary Poultry Grader - Primary Scrub - Primary Time In 01/07/20 10:00:00 01/07/20 10:00:00 01/07/20 10:00:00 Time Out 01/07/20 10:23:00 01/07/20 10:23:00 01/07/20 10:23:00 Procedure CYSTOSCOPY LOCAL(.) CYSTOSCOPY LOCAL(.) CYSTOSCOPY LOCAL(.) Comments Last Modified By: Harmoyn KILLIAN, JASWANTOR, Harmony KILLIAN, JASWANTOR, Harmony KILLIAN, JASWANTOR, Ronda 01/07/20 Ronda 01/07/20 Ronda 01/07/20 10:15:47 10:15:47 10:15:47 Surgical Procedures FTURO Entry 1 Procedure Description Procedure CYSTOSCOPY LOCAL Modifiers . Surgeon Description CYSTOSCOPY Primary Procedure Yes Primary Surgeon David DANIEL MD Start 01/07/20 10:11:00 Stop 01/07/20 10:18:00 Anesthesia Type Local Surgical Service Urology Wound Class 2 - Clean-Contaminated Last Modified By: Harmony KILLIAN, JASWANTOR, Ronda 01/07/20 10:15:44 General Case Data FTURO Pre-Care Text: Classifies surgical wound, implements aseptic technique, initiates traffic control Entry 1 Case Information OR URO 1 FT Case Level None Wound Class 2 - Clean-Contaminated Specialty Urology Preop Diagnosis GROSS HEMATURIA, Postop Same As Preop No MICROSCOPIC HEMATURIA, HX KIDNEY STONE, BPH W/LUTS Postop Diagnosis BPH W/LUTS Outcomes Met? Yes Last Modified By: Harmony KILLIAN, GERMANIA, Ronda 01/07/20 10:16:08 Post-Care Text: The patient is free from signs and symptoms of infection EU IntraOp - FTURO Pre-Care Text: Implements protective measures prior to operative or invasive procedure, confirms identity before the operative or invasive procedure, verifies operative procedure, surgical site, and laterality Entry 1 EU Perioperative Protocols Procedure(s) CYSTOSCOPY LOCAL(.) Patient Identity Birthday, ID Band Verified (select at Check, Patient least 2): Participation Consents / H and P HandP, Surgery/Procedure Operative Site N/A Verified Consent Marking Verified Surgical Site Yes Laterality Verified Yes Verified Procedure Verified Yes Correct Patient Yes Position Verified Availability Equipment, Implant, Time Out David DANIEL MD, Verified (If Medication Participants Harmony KILLIAN, CNOR, Applicable) Catherine Bond CST, Amber Time Out Complete 01/07/20 10:08:00 Allergies Reviewed? Yes Allergies Reviewed Self/Patient With Body Position Supine Prep Area penis Prep Agents Betadine Solution Skin. Condition Unable to Visualize Additional None Specimens Collected Vitals - EU Blood Pressure 133/73 Pulse 70 bpm Respirations SPO2 EBL 0 IandO - EU Total Intake 0 mL Total Output 0 mL Outcomes Met? Yes Last Modified By: GERMANIA Antunez RN, Ruthann 01/07/20 10:08:56 Post-Care Text: The patient is free from signs and symptoms of injury caused by extraneous objects Case Comments Finalized By: GERMANIA Antunez RN, Ruthann Document Signatures Signed By: GERMANIA Antunez RN, Ruthann 01/07/20 10:16 GERMANIA Antunez RN, Ruthann 01/07/20 10:17 Normal [facility] Main OR Preoperative Recordo n 01-07-2020 Main OR Preoperative Record Holding Area Document Type FTURO Summary Primary Physician: David DANIEL MD Finalized Date/Time: 01/07/20 10:07:43 Pt. Name: HANNAH DAVISEDITH Pineda./Sex: 1945 Male Med Rec #: [id number] Physician: David DANIEL MD Financial #: [id number] Pt. Type: O Room/Bed: / Admit/Disch: 01/07/20 09:23:05 - Institution: Case Times Holding FTURO Pre-Care Text: Verifies consent for planned procedure, identifies individual values and wishes concerning care, includes family members in perioperative teaching Secures patient's records' belongings, and valuables, maintains patient's dignity and privacy, and maintains patient confidentiality Entry 1 In Holding 01/07/20 09:34:00 Outcomes Met? Yes Last Modified By: Emeli Arguello LPN 01/07/20 09:34:34 Post-Care Text: The patient participates in decisions affecting his or her perioperative plan of care The patient's right to privacy is maintained Surgery Checklist FTURO Entry 1 Patient Birthday, ID Band Procedure History and Physical, Identification: Check, Patient Verification: Surgical Consent, With Participation Patient NPO after Midnight: n/a Personal Items: Cataract Lens Implant, Jewelry Personal Items watch Limitations: LOWER [place] Comment: Complaints of Pain: No Skin Integrity Unable to Visualize Vitals - EU Blood Pressure 133/73 Pulse 70 bpm Respirations 18 br/min SPO2 Additional ELLY RN Reviewed Yes Specimens Collected Last Modified By: GERMANIA Antunez RN, Ruthann 01/07/20 10:07:41 General Comments: Temp. 36.3 Finalized By: Harmony KILLIAN, Ronda SOLO Document Signatures Signed By: Jos TOVARNevina 01/07/20 09:37 Harmony KILLIAN, Ronda SOLO 01/07/20 10:07 Normal [facility] Operative Reporton 0 Operative Report Patient: SHARAN DAVIS IN W Age: 74 years Sex: Male : 1945 Associated Diagnoses: None Author: David DANIEL MD Procedure Operative Information Details: Date/ Time: 01/07/2020 10:18:00. Pre-Op Dx: Gross Hematuria - R31.0. Post-Op Dx: Same. Anesthesia Type: Local. Procedure: Local Cystoscopy. Complications: None. Risks/Benefits/Informe d Consent: Surgical risks, benefits, details of the procedure have been explained to the patient, Full informed consent has been obtained. Intraoperative Information Prepped: Patient is brought back to the endoscopy suite, Patient is placed in supine position, Patient prepped in the usual fashion with Betadine solution, 2% Xylocaine Jelly is placed per Urethra, After waiting several minutes the Cystoscope is introduced. The Urethra is: Normal. The Prostatic Urethra is: Unobstructed, Moderate Hypertrophy. The Bladder is: Trabeculated Severe (3), no b.t. or stones. gr 3 trabeculation.. The ureteral orifices: Show efflux of clear urine. Devices Implanted: None. Removal: Cystoscope is removed, The patient tolerated it well. Postoperative Information Discharge: Patient is discharged home with antibiotic coverage, Follow up arranged. Normal [facility] Comment on above: Result Comment: Elec tronically Signed By: David DANIEL MD\.br\Date and Time Signed: 01/07/20 10:20 EDT Patient Educationon 01-07-20 20 Patient Education Custom Cystoscopy ? Voiding after the procedure: there may be some pain, burning, urgency, frequency and blood tinged urine following the procedure. These symptoms usually resolve within 2-5 days. Drink the amount of fluid it takes to keep the urine pink to yellow or clear in color. Drinking enough water and fluids will help to ease any discomfort after your procedure. ? If you are having problems that seem out of the ordinary, please call. ? If unable to contact your physician and you feel it is an emergency, go to the nearest emergency room or call 911 ? Diet ? you may resume your normal diet. ? Activity ? you may resume your normal activities ? Call if you have a fever over 100 degrees. Normal [facility] UroVysion Fish and Urine Cyt o (P4 Labs)on 01-07-2020 [facility] Method of Extraction Voided Normal [facility] Comment on above: Performed By: #### 1 [id number] ####[facility] [id number] [place] [address] [facility] Number of Jars 1 Fishe r [facility] Comment on above: Performed By: #### 1 [id number] ####[facility] [address] [place] [address] [facility] Specimen Urine Normal [facility] Comment on above: Performed By: #### 1 [id number] ####[facility] [address] [place] [address] [facility] Type of Service Technical Only Normal [facility] Comment on above: Performed By: #### 1 [id number] ####[facility] [id number] [place] [address] [facility] HNO ID: [id number] Author: ERICA Ibarra (Ct) Service: Radiology Author Type: Automotive Customer Experience Advisor Type: Allied Health Filed: 12/24/2019 9:54 AM Note Text: Radiology Service Progress Note DATE OF SERVICE: December 24, 2019 TIME: 9:54 AM PATIENT IDENTITY VERIFICATION COMPLETED USING TWO (2) STANDARD IDENTIFIERS: Name and Date of confirmed by patient verbally. FALL SCREENING: Has the patient had 2 falls in the last year or 1 fall with injury or currently using an Ambulatory Assistive Device (Walker, Cane, Wheelchair, Crutches, etc.)? No PATIENT GENDER DATA: Male PATIENT RELEVANT IMPLANT DATA REVIEWED: Not Applicable ALLERGIES: Reviewed and unchanged CONTRAST ALLERGY: NO. EXAM: CT -CONTRAST INDUCED NEPHROPATHY RISK FACTORS: Patient age > 60 years CREATININE: Creatinine Date Value Ref Range Status 12/19/2019 0.92 0.73 - 1.22 mg/dL Final 10/23/2019 0.78 0.70 - 1.40 mg/dL Final 09/11/2019 0.80 0.73 - 1.22 mg/dL Final eGFR-All Other Races Date Value Ref Range Status 12/19/2019 >60 . Final Comment: eGFR (Estimated GFR) Units of measure: mL/min/1.73 meters squared eGFR is derived from the reexpressed MDRD Study equation using the following parameters: serum creatinine, age, gender and race. The creatinine assay has been calibrated to be traceable to IDMS. An eGFR <60 mL/min/1.73m2 for >3 months is consistent with chronic kidney disease. Refer to KDOQI guidelines for clinical interpretation. In patients with unstable renal function, e.g. those with acute kidney injury, the eGFR may not accurately reflect actual GFR. eGFR- Date Value Ref Range Status 12/19/2019 >60 Final P.O.C.T. RESULTS: POC done: Yes, See Lab Tab December 24, 2019 TREATMENT: N/A PERIPHERAL IV DATA: 20bd rac, left for next appt RADIOLOGY DEPARTMENT: CT; Exam(s) Completed: pul. vein SIGNATURE: ERICA Ibarra PATIENT NAME: Jorge Davis DATE: December 24, 2019 TIME: 9:54 AM [facility] [place] CT PULMONARY VEIN W IVCONon 12-24-2019 CT PULMONARY VEIN W IVCON * * *Final Report* * * DATE OF EXAM: Dec 24 2019 9:50AM [facility] 0464 - CT PULMONARY VEIN W IVCON / PROCEDURE REASON: Longstanding persistent atrial fibrillation (HCC) * * * * Physician Interpretation * * * * Examination: CTA of the chest dated 12/24/2019 9:50 AM Comparison: None History: 74 years old Male with history of atrial fibrillation status post RFA/PVI of the pulmonary vein ostia on 10/23/2019. There is a concern for pulmonary venous patency. Technique: Multi-detector CT technology was employed (Siemens Definition Flash dual source scannerPhiunited hospital district hospital docplanner 64-slice DAXKOarchbold - [facility] Somatom Force dual source scanner). Spiral imaging with retrospective Axial, sequential imaging with prospective gating was performed of the chest following the IV administration of contrast material. A low-osmolar contrast agent was used (90 cc of Omnipaque 350). CT Dose-Length Product (DLP): [address] Dose Reduction Employed: Automated exposure control (AEC) For optimization of anatomic evaluation, multiplanar reconstruction, maximum intensity projections, and advanced 3-D off-line postprocessing were performed on a dedicated stand-alone workstation under the direct supervision of the interpreting physician. RESULT: Potential study limitations: None. The chest wall, mediastinum, pericardium, and pulmonary arteries are unremarkable. No significant adenopathy is identified in the axilla, mediastinum, and joão. There is a calcified right hilar lymph nodes. Lung windows within normal limits. There is a 1.4 cm noncalcified nodule in the right lower lobe (image 63). There is no pulmonary parenchymal mass, infiltrate, or pleural effusion. There is moderate-severe left atrial enlargement. VASCULAR WITH ADVANCED 3-D OFF-LINE POSTPROCESSING: The left atrium and atrial appendage show no evidence of thrombus. The left atrium receives 4 widely patent pulmonary veins without complication from the RFA/PVI procedure. The right middle vein is a branch of the right superior pulmonary vein. No pulmonary vein stenosis is noted. The coronary sinus drains into the right atrium normally and is widely patent. The aortic valve is trileaflet, and free from calcifications. There is moderate ectasia of the aortic root, measuring 4.5 cm. There is no acute aortic pathology, such as dissection, intramural hematoma, or contained rupture. Farm Owner Operator dimensions of the thoracic aorta are as follows: 3.2 x 2.4cm at the aortic annulus 4.5cm at the sinuses of Valsalva measured sinus to sinus (4.4cm measured sinus to trigone) (the sinotubular junction is preserved) 3.9cm at the mid ascending aorta 3.4cm at the distal ascending aorta 3.1cm at the mid transverse arch 2.9cm at the proximal descending thoracic aorta 2.6cm at the diaphragmatic hiatus The coronary arteries have normal origins and courses. There are mild distinct coronary calcifications identified, though this study was not optimized for coronary artery evaluation. The limited images of the upper abdomen are unremarkable. IMPRESSION: 1. Normal pulmonary venous anatomy without pulmonary vein stenosis. 2. No left atrial or left atrial appendage thrombus. 3. Moderate ectasia of the aortic root, measuring 4.5 cm. 4. Incidental Finding: Follow-up for this incidentally detected lung nodule with PET/CT or biopsy within 4 weeks, or chest CT exam in 3 months is recommended. Agricultural Scientist: LELIA Transcribe Date/Time: Dec 24 2019 11:12A Dictated by : SARA SIMPSON MD This examination was interpreted and the report reviewed and electronically signed by: SARA SIMPSON MD on Dec 24 2019 12:47PM EST [id number] ACTIONABLE [facility] NURSING PROGon 12-24-2019 NURSING PROG HNO ID: [id number] Author: Arlene (Rn) CONSTANTIN Chowdhury Service: Nursing Author Type: Registered Nurse Type: Nursing Progress Note Filed: 12/24/2019 11:00 AM Note Text: Nursing Progress Note Topic of Note: Daily Note Jorge Davis [id number] Pt SR. Procedure cancelled. H/L removed from CT scan. Dr. Nelson spoke with p0t. This note was completed by: Arlene Chowdhury RN Normal [facility] PROGRESSon 12-24-2019 PROGRESS HNO ID: [id number] Author: Ezequiel Nelson Service: Electrophysiology Author Type: Physician Type: Progress Notes Filed: 12/24/2019 10:44 AM Note Text: Scheduled for cardioversion, but in SR upon arrival. [facility] [place] CNPNon 12-18-2019 CNPN Telephone (FVPRAD) JORGE DAVIS ([id number]) 1945 M [place] [employer]* Date Time Provider Department 12/18/19 SHAMA IBANEZ) FVLYRIC During your visit today, we recorded the following information about you: Shama Ibanez PA-C, GARY 12/18/2019 3:11 PM Signed Monitor done show persistent AF 100% burden Case discussed with Dr Denton and he recommends cardioversion Called and discussed this with patient, he is willing to proceed Lab and covid orders placed He will get labs done tomorrow at [place] Sending to procedure schedulers for cardioversion scheduling. If possible try to arrange on 12/23 at in early afternoon as he will already be here and NPO for CT scan. If not possible on that day then please schedule at [place] with available provider at patient's convenience LAMONT Villeda 12/19/2019 10:22 AM Signed Pts calling back in regards to below. Would like a return call with questions about the procedure. can be reached at [phone], ok to leave detailed message. Please advise. Maggi Schneider APRN.CNP 12/19/2019 1:50 PM Signed Called . She had questions regarding where to report the day of the CT scan and DCCV. Advised to report to the main lobby and security will direct them to the appropriate locations. Maggi Schneider APRN.CNP Allergies As of Date: 12/18/2019 (No Known Allergies) Date Reviewed: 11/05/2019 Reviewed by: Lyndsay Higgins Ma - Fully Assessed Reason for Visit: Results [95] Primary Visit Diagnosis:Atrial fibrillation, persistent (HCC) [I48.19] Order(s):CBC + DIFF [SQCBCDIF] Order #: [id number] FUTURE BASIC METABOLIC PNL [SQBMP] Order #: [id number] FUTURE MAGNESIUM BLD [SQMG1] Order #: [id number] FUTURE PRE-PROCEDURE AND PRE-OPERATIVE COVID [SQPOCOVD] Order #: [id number] FUTURE CARDIOVERSION, ELECTIVE, ELECTRICAL [95461GDM] Order #: [id number]: 1 Prescriptions as of 12/18/2019 Sig: APIXABAN 5 MG TABLET Take 1 tablet by mouth twice * PERFLUTREN LIPID MICROSPHERES* Inject 1.3 mL intravenously a* PANTOPRAZOLE 40 MG TABLET,DEL* Take 1 tablet by mouth DAILY * METFORMIN 500 MG TABLET Take 500 mg by mouth daily wi* FUROSEMIDE 40 MG TABLET Take 1 tablet by mouth once d* COMPOUNDED PRESCRIPTION Skin cream - patient unsure o* POTASSIUM CHLORIDE ER 20 MEQ * Take 1 tablet by mouth once d* PRAVASTATIN 80 MG TABLET Take 1 tablet by mouth daily * TYLENOL 8 HOUR ORAL Take by mouth as needed. 325* ALLOPURINOL 300 MG TABLET Take 300 mg by mouth once imelda* Problem List As Of Date 12/18/2019 Noted Resolved CHRISTIAN (obstructive sleep apnea) [G47.33] 01/07/2014 HTN (hypertension) [I10] 01/07/2014 Dyslipidemia [E78.5] 01/07/2014 Atrial fibrillation (HCC) [I48.91] 07/08/2014 Atherosclerosis of [place] tribes coronary artery of na*07/10/2015 Diabetes mellitus type 2, controlled, without c*07/10/2015 Atrial fibrillation, persistent (HCC) [I48.19] 07/22/2015 Paroxysmal atrial fibrillation (HCC) [I48.0] 12/04/2015 Paroxysmal atrial flutter (HCC) [I48.92] 05/30/2018 Obesity, Class III, BMI >= 40 [E66.01] 10/23/2019 Encounter Status:Closed by SHAMA IBANEZ PA-C on 12/18/19 [facility] [place] HOSPon 12-18-2019 HOSP Patient:Jorge Davis MRN: Height:5' 6 (1.676 m) Weight:No patient weight recorded within the last 30 days. Outpatient Medications as of 12/24/19: apixaban (ELIQUIS) 5 mg tab(s) perflutren lipid microspheres (DEFINITY) 1.1 mg/mL injection (to be provided with echo procedure) pantoprazole DR (PROTONIX) 40 mg tablet metFORMIN (GLUCOPHAGE) 500 mg tablet furosemide (LASIX) 40 mg tablet COMPOUNDED PRESCRIPTION potassium chloride ER (K-DUR, KLOR-CON) 20 mEq tablet pravastatin (PRAVACHOL) 80 mg tablet ACETAMINOPHEN (TYLENOL 8 HOUR ORAL) allopurinol 300 mg tablet Admission/Clinic Administered Medications as of 12/24/19: Patient has no admission medications. Problem List: CHRISTIAN (obstructive sleep apnea) [G47.33] HTN (hypertension) [I10] Dyslipidemia [E78.5] Atrial fibrillation (HCC) [I48.91] Atherosclerosis of [place] coronary artery of [place] heart without angina pectoris [I25.10] Diabetes mellitus type 2, controlled, without complications (HCC) [E11.9] Atrial fibrillation, persistent (HCC) [I48.19] Paroxysmal atrial fibrillation (HCC) [I48.0] Paroxysmal atrial flutter (HCC) [I48.92] Obesity, Class III, BMI >= 40 [E66.01] Allergies: No Known Allergies Date Verified:12/24/19 Lab Values Lab Value Units Date High Low POTA* 4.6 mmol/L 12/19/2019 5.1 3.7 FISH* 50.5 % 12/19/2019 51.0 39.0 Progress Notes ( PROVIDER ADULT): Shama Ibanez PA-C, PA 12/18/2019 3:11 PM Signed Monitor done show persistent AF 100% burden Case discussed with Dr Denton and he recommends cardioversion Called and discussed this with patient, he is willing to proceed Lab and covid orders placed He will get labs done tomorrow at [place] Sending to procedure schedulers for cardioversion scheduling. If possible try to arrange on 12/23 at in early afternoon as he will already be here and NPO for CT scan. If not possible on that day then please schedule at [place] with available provider at patient's convenience Shama Ibanez PA-C. Johnny Diaz 12/19/2019 10:22 AM Signed Pts calling back in regards to below. Would like a return call with questions about the procedure. can be reached at [phone], ok to leave detailed message. Please advise. Maggi Schneider APRN.TATA 12/19/2019 1:50 PM Signed Called . She had questions regarding where to report the day of the CT scan and DCCV. Advised to report to the main lobby and security will direct them to the appropriate locations. Maggi Schneider APRN.TATA [facility] [place] NURSING PROGon 10-24-2019 Cholesterol [Mass/Vol] HNO ID: [id number] Author: Nga BriggsRn) CONSTANTIN Garcia Service: Nursing Author Type: Registered Nurse Type: Nursing Progress Note Filed: 10/24/2019 11:13 AM Note Text: Nursing Progress Note Topic of Note: Routine Reassessment Jorge Davis [id number]- Patient up in bed. Bilateral groins soft, tender, bilateral DP pulses palpable. Patient states no pain, is unhappy that he is not discharged yet. MICROELECTRONICS TECHNICIAN notified and will be up to D/C soon. This note was completed by: Nga Garcia RN [facility] [place] NURSING PROG HNO ID: [id number] Author: Caridad BriggsRn) CONSTANTIN Alvarez Service: Nursing Author Type: Registered Nurse Type: Nursing Progress Note Filed: 10/24/2019 8:21 AM Note Text: Nursing Progress Note Patient Name: Jorge Davis Patient Location: [id number][facility] -[id number] __ Daily Note: 0800- Pt sitting up in bed, assessment charted per npr, IV patent, Bilat groins soft, tender,no s/s of any bleeding or infection, bilat pedal pulses palpated,call light within reach,am meds given,no pain,no issues. This note was completed by: Caridad Alvarez RN [facility] [place] ANES POSTPROC EVALon 020 ANES POSTPROC EVAL HNO ID: [id number] Author: Murtaza Bauer Service: ? Author Type: Physician Type: Anesthesia Postprocedure Evaluation Filed: 10/23/2019 3:04 PM Note Text: POST ANESTHESIA EVALUATION NOTE : 1945 Procedure Summary Date: 10/23/19 Room / Location: EP ROOM 2 / EP Anesthesia Start: 830 Anesthesia Stop: 1436 Procedures: COMPLETE EPS W/PVI ABLATION (N/A ) ADD'L PVI ABLATION (N/A ) Diagnosis: Atrial fibrillation, persistent (HCC) (Atrial fibrillation, persistent (HCC) [I48.19]) Surgeons: Ruben Denton MD Responsible Provider: Murtaza Bauer Anesthesia Type: general ASA Status: 3 Anesthesia Type: general Last vitals Vitals Value Taken Time BP 157/84 10/23/19 1500 Temp 37 ?C (98.6 ?F) 10/23/19 1437 HR SpO2 105 10/23/19 1423 Resp 19 10/23/19 1503 SpO2 98 % 10/23/19 1503 Vitals shown include unvalidated device data. Post Anesthesia Patient Status Patient Evaluation: PACU. PACU/ICU Patient Condition: stable. Anticipated Disposition: phase 2 then home. Neurological Status: aware and responsive. Pulmonary Status: breathing comfortably on room air Airway Control: returned to baseline unsupported. Cardiovascular Status: stable. Pain Management: clinically adequate Postoperative Hydration: acceptable. Intraoperative Events: no significant anesthesia events Post Operative Nausea/Vomiting Status: no significant post operative nausea or vomiting Anesthetic Observations: Recommendation: continue current plan of care. SIGNATURE: Murtaza Bauer MD PATIENT NAME: Jorge Davis DATE: October 23, 2019 TIME: 3:04 PM CSN: [id number] [facility] [place] ANES PRE-OPon 10-23-2019 ANES PRE-OP HNO ID: [id number] Author: Murtaza Bauer Service: ? Author Type: Physician Type: Anesthesia Preprocedure Evaluation Filed: 10/23/2019 7:28 AM Note Text: ANESTHESIOLOGY DAY OF SURGERY NOTE : 1945 Procedure(s) (LRB): COMPLETE EPS W/PVI ABLATION (N/A) ADD'L PVI ABLATION (N/A) Surgeon(s): Ruben Denton MD Estimated body mass index is 47.65 kg/m? as calculated from the following: Height as of this encounter: 162.6 cm (5' 4 ). Weight as of this encounter: 125.9 kg (277 lb 9.6 oz). Most recent hematocrit and potassium results: Hematocrit 46.7 10/23/2019 Potassium 4.3 09/11/2019 Relevant Problems ANESTHESIA (+) CHRISTIAN (obstructive sleep apnea) CARDIO (+) Atherosclerosis of [place] coronary artery of [place] heart without angina pectoris (+) Atrial fibrillation (HCC) (+) Atrial fibrillation, persistent (HCC) (+) HTN (hypertension) (+) Paroxysmal atrial fibrillation (HCC) (+) Paroxysmal atrial flutter (HCC) ENDO (+) Diabetes mellitus type 2, controlled, without complications (HCC) PULMONARY (+) CHRISTIAN (obstructive sleep apnea) I - PHYSICAL EVALUATION AIRWAY Patient intubated: No. Tracheostomy tube not present Mallampati: III. TM distance: <3 FB. Neck ROM: full ROM without neurological symptoms. Mouth opening: adequate. Short neck: no. Thick neck: no DENTAL Dental findings: teeth intact. Additional exam findings: yes. CARDIOVASCULAR Normal cardiovascular observations. Rhythm: regular PULMONARY Normal pulmonary observations. Breath sounds clear to auscultation. II - ANESTHESIA PLAN ASA Score: 3 Anesthetic Plan: general Airway type: ETT The patient is not a current smoker. NPO Status: adequate Monitoring plan: standard ASA. Postoperative analgesic plan: multimodal analgesia. Anesthetic Risks, Benefits, Alternatives, Personnel Discussed. Consent obtained from: patient. Patient / Surrogate agrees to blood products: Yes Significant changes in the patient condition since the History and Physical, not otherwise documented in primary service progress note: no. Potential Anesthesia issues that may suggest increased risk of complications or contractions to planned procedure: none. Vitals Value Taken Time BP 168/90 10/23/19630 Pulse 80 10/23/19630 Resp 18 10/23/19630 Temp 36.7 ?C (98.1 ?F) 10/23/19630 SpO2 98 % 10/23/19630 No current facility-administered medications on file as of 10/23/2019. Outpatient Medications as of 10/23/2019 Medication Sig - metFORMIN (GLUCOPHAGE) 500 mg tablet Take 500 mg by mouth daily with breakfast. - furosemide (LASIX) 40 mg tablet Take 1 tablet by mouth once daily. - COMPOUNDED PRESCRIPTION Skin cream - patient unsure of name. - potassium chloride ER (K-DUR, KLOR-CON) 20 mEq tablet Take 1 tablet by mouth once daily. - pravastatin (PRAVACHOL) 80 mg tablet Take 1 tablet by mouth daily at bedtime. - ACETAMINOPHEN (TYLENOL 8 HOUR ORAL) Take by mouth as needed. 325 mg - 500 mg only as needed (not more than once per day) - allopurinol 300 mg tablet Take 300 mg by mouth once daily. I have interviewed and examined the patient. I have reviewed the medical record and/or the pre-anesthesia evaluation, pertinent labs, and test results. This contains updated information obtained within 48 hours of Surgery/Procedure. SIGNATURE: Murtaza Bauer MD PATIENT NAME: Jorge Davis DATE: October 23, 2019 TIME: 7:27 AM CSN: [id number] Normal [facility] Basic Metabolic Panlon 10-22 Anion gap [Moles/Vol] 15 mmol/L Normal -18 [facility] Comment on above: Performed By: #### C BC, BMP #### [place] [address] Calcium [Mass/Vol] 9.1 mg/dL Normal 8.5-10.5 [facility] Comment on above: Performed By: #### C BC, BMP #### [place] [phone] Chloride [Moles/Vol] 103 mmol/L Normal 98-110 [facility] Comment on above: Performed By: #### C BC, BMP #### [place] [phone] CO2 [Moles/Vol] 21 mmol/L Low 23-32 [facility] Comment on above: Performed By: #### C GLORIA, BMP #### [place] [phone] Creatinine [Mass/Vol] 0.78 mg/dL Normal 0.70-1.40 [facility] Comment on above: Performed By: #### C GLORIA, BMP #### [place] [phone] eGFR- Amer. >60 Normal >60 [facility] Comment on above: Performed By: #### C GLORIA, BMP #### [place] [phone] GFR/1.73 sq M predicted among non-blacks MDRD (S/P/Bld) [Vol rate/Area] mL/min/{1.73_m2} Normal >60 [facility] Comment on above: Performed By: #### C BC, BMP #### [place] [phone] Glucose [Mass/Vol] 124 mg/dL High 65-100 [facility] Comment on above: Performed By: #### C BC, BMP #### [place] [phone] Potassium [Moles/Vol] 4.1 mmol/L Normal 3.5-5.0 [facility] Comment on above: Performed By: #### C BC, BMP #### [place] [phone] Sodium [Moles/Vol] 139 mmol/L Normal 135-146 [facility] Comment on above: Performed By: #### C BC, BMP #### [place] [phone] Urea nitrogen [Mass/Vol] 16 mg/dL Normal 10-25 [facility] Comment on above: Performed By: #### C BC, BMP #### [place] [phone] CBCon 10-23-2019 Absolute nRBC <0.01 Normal <0.01 [facility] Comment on above: Performed By: #### C BC, BMP #### [place] [phone] Erythrocyte distribution width (RBC) [Ratio] 14.7 % Normal 11.5-15.0 [facility] Comment on above: Performed By: #### C BC, BMP #### [place] [phone] Hematocrit (Bld) [Volume fraction] 46.7 % Normal 39.0-51.0 [facility] Comment on above: Performed By: #### C BC, BMP #### [place] [phone] Hemoglobin (Bld) [Mass/Vol] 14.8 g/dL Normal 13.0-17.0 [facility] Comment on above: Performed By: #### C BC, BMP #### [place] [phone] MCH (RBC) [Entitic mass] 28.7 pG Normal 26.0-34.0 [facility] Comment on above: Performed By: #### C BC, BMP #### [place] [address] MCHC (RBC) [Mass/Vol] 31.7 g/dL Normal 30.5-36.0 [facility] Comment on above: Performed By: #### C BC, BMP #### [place] [address] MCV (RBC) [Entitic vol] 90.7 fL Normal 80.0-100.0 [facility] Comment on above: Performed By: #### C BC, BMP #### [place] [address] Platelet mean volume (Bld) [Entitic vol] 10.0 fL Normal 9.0-12.7 [facility] Comment on above: Performed By: #### C BC, BMP #### [place] [address] Platelets (Bld) [#/Vol] 178 10*3/uL Normal 150-400 [facility] Comment on above: Performed By: #### C BC, BMP #### [address] [address] RBC (Bld) [#/Vol] 5.15 10*6/uL Normal 4.20-6.00 [facility] Comment on above: Performed By: #### C BC, BMP #### [place] [address] WBC (Bld) [#/Vol] 6.73 10*3/uL Normal 3.70-11.00 [facility] Comment on above: Performed By: #### C BC, BMP #### [place] [address] ECG COMPLETEon 10-23-2019 ECG COMPLETE NAME : JORGE DAVIS PID : [id number] : 1945 Gender : Male Race : ORD : [id number] Procedure Date : Oct 23 2019 14:59:44 Edit Date : Oct 23 2019 17:01:19 Diagnosis:Sinus tachycardia IVCD, consider atypical RBBB Abnormal ECG Confirmed by KATRINA KELLEY MD ([id number]) on 10/23/2019 5:01:18 PM Ventricular Rate : 101 BPM Atrial Rate : 101 BPM P-R Interval : 187 ms QRS Duration : 122 ms Q-T Interval : 386 ms QTC Calculation(Bazett) : 501 ms P Taylor : 65 degrees R Taylor : -32 degrees T Taylor : 54 degrees Test Reason : Post-OP Location : 400 : FVEKG 6 Overread By : KATRINA KELLEY MD Edited By : KATRINA KELLEY MD Referred By : , Acquired by : DARA [facility] [place] ECG COMPLETE NAME : JORGE DAVIS PID : [id number] : 1945 Gender : Male Race : ORD : [id number] Procedure Date : Oct 23 2019 07:03:28 Edit Date : Oct 23 2019 16:59:50 Diagnosis:Atrial fibrillation Abnormal ECG Confirmed by KATRINA KELLEY MD ([id number]) on 10/23/2019 4:59:48 PM Ventricular Rate : 70 BPM Atrial Rate : 0 BPM P-R Interval : 120 ms QRS Duration : 109 ms Q-T Interval : 437 ms QTC Calculation(Bazett) : 472 ms R Taylor : -21 degrees T Taylor : 35 degrees Test Reason : Pre OP Location : 400 : FVEKG 6 Overread By : KATRINA KELLEY MD Edited By : KATRINA KELLEY MD Referred By : , Acquired by : [facility] [place] HISTORY PHYSICALon 0 HISTORY PHYSICAL HNO ID: [id number] Author: Ruben Denton MD Service: Cardiovascular Disease Author Type: Physician Type: HANDP Filed: 10/23/2019 8:22 AM Note Text: HISTORY AND PHYSICAL EXAMINATION SERVICE DATE: 10/23/2019 SERVICE TIME: 6:59 AM PRIMARY CARE PHYSICIAN: Declan Swanson MD ASSESSMENT AND PLAN: Persistent A.Fib, D.M, Obesity, COPD, SUBJECTIVE CHIEF COMPLAINT: Having A.Fib HPI: This is a 74 year old male who has long standing H / O A.Fib which was well controlled with Tikosyn previously. However due to its cost he couldn,t continue to take it . States decision was made to go under PVI . States with A.Fib he is dyspnic, with minor exertion, fatigue all the time, but, denies chest pain, palpitations or having dizziness PAST MEDICAL HISTORY: PAST MEDICAL HISTORY Diagnosis Date - Acute gastric ulcer - Atrial fibrillation (HCC) - DM2 (diabetes mellitus, type 2) (HCC) - ED (erectile dysfunction) - Left ureteral calculus - Obstructive chronic bronchitis with exacerbation (HCC) COPD - Perianal dermatitis - Tubular adenoma PAST SURGICAL HISTORY: PAST SURGICAL HISTORY Procedure Laterality Date - CARDIAC CATH 2009 - CARDIAC CATH 06/16/2015 - COLONOSCOPY - OPEN CHONDROPLASTY W/ MICRO DRILLING 2005 - PAST SURGICAL HISTORY OF 1974 Fistulotomy - PAST SURGICAL HISTORY OF Partial Medial Menisectomy Bilateral Knee - PAST SURGICAL HISTORY OF 1991 Acrominoplasty Right Shoulder - PAST SURGICAL HISTORY OF Bilateral Club Foot Surgery - PAST SURGICAL HISTORY OF 2008 Anthroscopy Left Shoulder - PAST SURGICAL HISTORY OF 2010 Revision Left Knee - PAST SURGICAL HISTORY OF minor hand surgery - [place] ANESTH,TOTAL KNEE ARTHROPLASTY 2006 Right Knee - REPAIR UMBILICAL HERNIA 2007 - ROTATOR CUFF REPAIR 1993 Left Shoulder - ROTATOR CUFF REPAIR 1996 Right Shoulder - TOTAL KNEE REPLACEMENT 2000 Left Knee FAMILY HISTORY: FAMILY HISTORY Problem Relation Age of Onset - Heart Mother - Heart Father SOCIAL HISTORY: Social History Tobacco Use - Smoking status: Former Smoker Years: 25.00 Types: Cigars Quit date: 12/11/2012 Years since quittin.8 - Smokeless tobacco: Never Used Substance Use Topics - Alcohol use: Not Currently - Drug use: No MEDICATIONS: Prior to Admission Medications - apixaban (ELIQUIS) 5 mg tab(s), Take 1 tablet by mouth twice daily., Disp: 60 tablet, Rfl: 0, 10/22/2019 at 2100 - metFORMIN (GLUCOPHAGE) 500 mg tablet, Take 500 mg by mouth daily with breakfast., Disp: , Rfl: , 10/22/2019 at Unknown time - furosemide (LASIX) 40 mg tablet, Take 1 tablet by mouth once daily., Disp: 90 tablet, Rfl: 3, 10/22/2019 at Unknown time - COMPOUNDED PRESCRIPTION, Skin cream - patient unsure of name., Disp: , Rfl: , 10/22/2019 at Unknown time - potassium chloride ER (K-DUR, KLOR-CON) 20 mEq tablet, Take 1 tablet by mouth once daily., Disp: 30 tablet, Rfl: 6, 10/22/2019 at Unknown time - pravastatin (PRAVACHOL) 80 mg tablet, Take 1 tablet by mouth daily at bedtime., Disp: 90 tablet, Rfl: 3, 10/22/2019 at Unknown time - ACETAMINOPHEN (TYLENOL 8 HOUR ORAL), Take by mouth as needed. 325 mg - 500 mg only as needed (not more than once per day), Disp: , Rfl: , Unknown at Unknown time - allopurinol 300 mg tablet, Take 300 mg by mouth once daily., Disp: , Rfl: , 10/22/2019 at Unknown time CURRENT ALLERGIES: ALLERGIES No Known Allergies COMPLETE REVIEW OF SYSTEMS: GENERAL: No weight loss, malaise or fevers., SEE HPI HEENT: No changes in vision, no nose bleeds or other nasal problems NECK: Negative for lumps, goiter, and significant neck swelling RESPIRATORY: Negative for cough, wheezing or shortness of breath. CARDIOVASCULAR: No leg swelling claudication or palpitations GI: Negative for abdominal discomfort, blood in stools or black stools or change in bowel habits MUSCULOSKELETAL: Negative for joint pain or swelling, PSYCH: Negative for depression or sleep disturbance. HEMATOLOGY/LYMPHOLOGY: Negative for prolonged bleeding, bruising easily or swollen nodes ENDOCRINE: Is diabetic, does not have hyperthyroidism. NEURO: No history of syncope, paralysis, seizures or tremors All other reviewed and negative other than HPI. History of Bleeding Issues: No OBJECTIVE PHYSICAL EXAM: Patient Vitals for the past 24 hrs: BP Temp Temp src Pulse Resp SpO2 Height Weight 10/23/19 0631 168/90 36.7 ?C (98.1 ?F) Temporal Art 80 18 98 % 162.6 cm (5' 4 ) ? 10/23/19 0622 ? 125.9 kg (277 lb 9.6 oz) Body mass index is 47.65 kg/m?. GENERAL: Alert and orianted x 3, no distress, cooperative SKIN: Skin color, turgor normal. No rashes or lesions. EARS: External ears normal. NECK: No jugulovenous distention, no carotid bruits, supple. CHEST: No deformities. LUNGS: Lungs clear to auscultation. No rales or wheezing. CARDIAC: Rhythm irregular, A.Fib No murmurs ABDOMEN: Abdomen soft, non-tender.. No masses or organomegaly. EXTREMITIES: Extremities with, edema, or skin discoloration. NEURO: Gait normal. Reflexes normal and symmetric. Sensation grossly intact., Cranial nerves II-XII intact PULSES: 2+ radial 1+ dorsalis pedis 1+ posterial tibial DATA: Diagnostic tests reviewed for today's visit: Most recent EKG Most recent labs POC INR: CBC: No results for input(s): WBC, RBC, HB, HCT, PLT, MCV, MCH, MPV, RDW in the last 720 hours. Coags: No results for input(s): PT, INR, APTT in the last 720 hours. BMP: No results for input(s): NA, K, CHLOR, CO2, BUN, CREAT, GLUC in the last 720 hours. SIGNATURE: Shandra Smith PA-C PATIENT NAME: Jorge Davis DATE: October 23, 2019 TIME: 6:59 AM PAGER: [phone] CARD EP STAFF Pt seen and examined. The documented findings were individually confirmed, and the history was verified and corrected, if appropriate. I discussed the patient's management with the PA and reviewed their note. Additional Hx/summary is as follows: 74 YO male with persistent AF despite prior DCCV and dofetilide. He presents today for PVAI. Ruben Denton MD [facility] [place] NURSING PROGon 10-23-2019 NURSING PROG HNO ID: [id number] Author: Nacho BriggsRn) CONSTANTIN Mensah Service: Nursing Author Type: Registered Nurse Type: Nursing Progress Note Filed: 10/24/2019 5:41 AM Note Text: Nursing Progress Note Patient Name: Jorge Davis Patient Location: [id number]/[facility] -5G182-8 __ 2104 Pt resting quietly in room. R/L groins soft and without hematoma or bleeding. (Small pink drainage left groin noted). DP pulses palpable. No pain or complaints. 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 Cepacol ineffective. Obtained Orad order. Will administer when available from pharmacy. Pt received home lasix dose at ~1930 from last shift (will remove moses soon.) Tele SR. Will monitor. 2226 Moses removed ~0. Tolerated well. Pt oob with assistance x1, ambulated 1/2 halls twice with steady gait. L groin dressing remains with pink shadowing. R groin dressing removed at pt request (bothering him) and replaced with gauze and paper tape. No hematoma or bleeding b/l. 0040 Pt given tessalon perles earlier. Coughing frequency has lessened. No issues or complaints at this time. 0345 Voiding good amount s/p moses removal. R/L groins remains soft and without hematoma or bleeding. 0539 Still has occasional nonproductive cough, but it has lessened. Tessalon perle administered. B/L groins without hematoma or bleeding. Voiding good quantity urine. No new issues or complaints. Tele SR. This note was completed by: Nacho Mensah RN [facility] [place] NURSING PROG HNO ID: [id number] Author: Marybeth BriggsRn) CONSTANTIN Parr Service: Nursing Author Type: Registered Nurse Type: Nursing Progress Note Filed: 10/23/2019 4:47 PM Note Text: Nursing Progress Note Topic of Note: Daily Note Jorge Davis [id number] 1630 pt. up to floor via bed from [facility] recovery, report received from Karie De Leon RN, pt. alert and oriented, denies pain or discomfort. right groin dressing changed at this time for oozing noted on dressing, right groin tegaderm applied with sutures in place, no bleeding or hematoma noted, left groin with no drainage or hematoma noted. dressing dry and intact. SR on monitor, maintaining adequate oxygenation, VSS, moses in place, Pt. has dry non productive cough. cont. cardiac monitoring maintained. This note was completed by: Marybeth Parr RN [facility] [place] NURSING PROG HNO ID: [id number] Author: Celeste Fay RN Service: Nursing Author Type: Registered Nurse Type: Nursing Progress Note Filed: 10/23/2019 4:22 PM Note Text: 1430 Pt. returned to recovery following a PVI ablation. Pt. had general anesthesia. In addition, patient receive 100 mcg of fentanyl, decadron, 4 mg of Zofran, 20 mg of Lasix, 25 mg of Protamine and one gram of Vancomycin. Pt. is fully awake and alert. No respiratory distress on room air. Breathing is even and unlabored. Frequent non productive cough noted. Pt. had two #8 size venous sheaths in right groin and one size #10 in left groin. All removed in the lab. with sutures placed. Right groin oozing upon arrival to unit. Dressing site changed. Left groin is dry and intact. No hematoma to either site. Pedal pulses palpable. ST on the monitor. Moses draining clear yellow urine. Instructed pt. to lay flat and to keep both legs straight. 1515 Left groin site saturated with red blood from continuous coughing. Dr. Denton over to see patient and assess groin sites. 1615 Report called to Henrique Parr R.N. 1621 Pt. transported via bed to [facility] 308 with all personal belongings. Normal [facility] Type and Screenon 10-23-2019 ABO/RH(D) Positive Normal [facility] Comment on above: Performed By: #### T SCR ####[place] [address] Urinalysison 10-23-2019 Bilirubin, Urine Negative Normal Negative [facility] Comment on above: Performed By: #### U A #### [place] [address] Clarity (U) Clear Normal Clear [facility] Comment on above: Performed By: #### U A #### [place] [address] Color (U) Light Yellow Critically abnormal Yellow [facility] Comment on above: Performed By: #### U A #### [place] [address] Comments SEE COMMENT Normal [facility] Comment on above: Result Comment: Micr oscopic not warranted Performed By: #### U A #### [place] [address] Glucose Ql (U) Negative Normal Negative [facility] Comment on above: Performed By: #### U A #### [place] [address] Hemoglobin/Blood,Ur Negative Normal Negative [facility] Comment on above: Performed By: #### U A #### [place] [address] Ketones Ql (U) Negative Normal Negative [facility] Comment on above: Performed By: #### U A #### [place] [phone] Leukest Negative Normal Negative [facility] Comment on above: Performed By: #### U A #### [phone] Nitrite Ql (U) Negative Normal Negative [facility] Comment on above: Performed By: #### U A #### [place] [phone] pH (Bld) 6.5 Normal 5.0-8.0 [facility] Comment on above: Performed By: #### U A #### [phone] Protein (U) [Mass/Vol] Negative Normal Negative [facility] Comment on above: Performed By: #### U A #### [phone] Specific [place], Ur 1.015 Normal 1.005-1.030 [facility] Comment on above: Performed By: #### U A #### [place] [phone] Urobilinogen Qn (U) Negative Normal Negative [facility] Comment on above: Performed By: #### U A #### [phone] Lab Reportson 10-11-2019 Lab Reports [id number] CD:127 Normal [facility] Confirm Blood Typeon 020 ABO/RH(D) Positive Normal [facility] Comment on above: Performed By: #### C ONABO ####[phone] HOSPon 09-18-2019 HOSP Patient:Jorge Davis MRN: Height:5' 4 (1.626 m) Weight:No patient weight recorded within the last 30 days. Outpatient Medications as of 10/23/19: apixaban (ELIQUIS) 5 mg tab(s) metFORMIN (GLUCOPHAGE) 500 mg tablet furosemide (LASIX) 40 mg tablet COMPOUNDED PRESCRIPTION potassium chloride ER (K-DUR, KLOR-CON) 20 mEq tablet pravastatin (PRAVACHOL) 80 mg tablet ACETAMINOPHEN (TYLENOL 8 HOUR ORAL) allopurinol 300 mg tablet Admission/Clinic Administered Medications as of 10/23/19: Patient has no admission medications. Problem List: CHRISTIAN (obstructive sleep apnea) [G47.33] HTN (hypertension) [I10] Dyslipidemia [E78.5] Atrial fibrillation (HCC) [I48.91] Atherosclerosis of [place] coronary artery of [place] heart without angina pectoris [I25.10] Diabetes mellitus type 2, controlled, without complications (HCC) [E11.9] Atrial fibrillation, persistent (HCC) [I48.19] Paroxysmal atrial fibrillation (HCC) [I48.0] Paroxysmal atrial flutter (HCC) [I48.92] Obesity, Class III, BMI >= 40 [E66.01] Allergies: No Known Allergies Date Verified:10/23/19 Lab Values Lab Value Units Date High Low POTA* 4.1 mmol/L 10/23/2019 5.0 3.5 FISH* 46.7 % 10/23/2019 51.0 39.0 Progress Notes (CARD EPS MAIN): Jessika Villegas [facility] [place] 10/22/2019 1:11 PM Signed October 22, 2019 1:10 PM Patient Name: Jorge Davis [id number] Contact Information: [phone] (home) [phone] (cell) Reason for Call: Patient scheduled for PVI ablation tomorrow at [facility] - what are his instructions regarding his eliquis ? Physician: Ruben Denton MD, RN, RN 10/22/2019 4:[address] Thomas instructions available in [facility] patient advised to hold Eliquis the morning of his procedure. HE stated understanding. Carmelina Bender RN Progress Notes (CARD EPS MAIN): Jessika Villegas [facility] 10/14/2019 3:44 PM Signed October 14, 2019 3:43 PM Patient Name: Jorge Davis [id number] Contact Information: [phone] (home) [phone] (cell) Last visit with EP Provider: 04/19/2019 Reason for Call: Received partially completed application for [employer] with documentation from patient; gave to nurse to complete physician section Physician: Ruben Denton MD, RN, RN 10/16/2019 9:51 AM Signed Completed and returned to [facility] ed. Usha Bonilla RN [facility] [place] NURSING PROGon 09-18-2019 NURSING PROG HNO ID: [id number] Author: Arlene (Rn) CONSTANTIN Chowdhury Service: Nursing Author Type: Registered Nurse Type: Nursing Progress Note Filed: 09/18/2019 9:57 AM Note Text: Nursing Progress Note Topic of Note: Daily Note Jorge Walls Cristopher [id number] Pre op done. INR 4.3. Repeat in lab 5.0. Procedure cancelled. Dr. denton spoke with pt . Will d/c home. 0845: Dr. Denton spoke with pt. Pt aware procedure cancelled Pt spoke with . She will p/u pt. Pt given po diet. Will remove h/l. 0930. Pt took po diet. will p/u at approx 1000. Will transfer pt out via w/c. 0855: Pt spoke with Dr. Piper regarding alternate blood thinners. Pt d/c'd via w/c. to p/u in front. This note was completed by: Arlene Chowdhury RN [facility] [place] Protimeon 09-18-2019 PT Coag (PPP) [Time] 51.3 s High 9.7-13.0 [facility] Comment on above: Performed By: #### P T #### [facility] [address] [place] [address] PT Coag (PPP) [Time] 5.0 s High 0.9-1.3 [facility] Comment on above: Result Comment: Ashlie min K Antagonist (VKA) Therapeutic Range: INR 2 to 3 (Target INR of 2.5) Note: For patients treated with VKA drugs, such as warfarin, the [place] [employer] 2012 Guideline recommends a therapeutic INR range of 2 to 3 (target INR of 2.5). This recommendation includes high-risk patients with antiphospholipid syndrome with previous arterial or venous thromboembolism, current-generation mechanical or bioprosthetic aortic heart valve replacement. Note: Patients with mechanical aortic valve replacement and additional risk factors for thromboembolic events (atrial fibrillation, previous thromboembolism, LV dysfunction, hypercoagulable conditions) or an older generation mechanical AVR (i.e., ball in-Cage) or any mechanical MVR should have a INR therapeutic range of 2.5 to 3.5 (target INR of 3). Christina GH, et al. Chest 2012, 141:7S-47S Karen RA, et al. [facility] 2017, 70: 252-289 Performed By: #### P T #### [facility] [address] [place] [address] Type and Screenon 09-18-2019 ABO/RH(D) Positive Normal [facility] Comment on above: Performed By: #### T SCR ####[facility] [place], [place] [phone] PROGRESSon 09-11-2019 PROGRESS HNO ID: [id number] Author: Nga Welch (Rt) Noé Service: Radiology Author Type: Automotive Customer Experience Advisor Type: Progress Notes Filed: 09/11/2019 3:23 PM Note Text: Radiology Service Progress Note PATIENT NAME: Jorge Davis DATE OF SERVICE: September 11, 2019 TIME: 3:22 PM PATIENT IDENTITY VERIFICATION COMPLETED USING TWO (2) IDENTIFIERS: Name and Date of confirmed by patient verbally. FALL SCREENING: Has the patient had 2 falls in the last year or 1 fall with injury or currently using an Ambulatory Assistive Device (Walker, Cane, Wheelchair, Crutches, etc.)? No PATIENT GENDER DATA: Male PATIENT RELEVANT IMPLANT DATA REVIEWED: Not Applicable RADIOLOGY DEPARTMENT: General X-ray: Exam(s) Completed: Chest X-Ray PERIPHERAL IV DATA: Not applicable SIGNED BY: Ellis Caruso RT September 11, 2019 3:22 PM [facility] XR CHEST 2V FRONTAL/LATon XR CHEST 2V FRONTAL/LAT * * *Final Report* * * DATE OF EXAM: Sep 11 2019 3:24PM VHX [id number] - XR CHEST 2V FRONTAL/LAT / PROCEDURE REASON: Chronic diastolic heart failure (HCC) * * * * Physician Interpretation * * * * EXAMINATION: CHEST RADIOGRAPH (2 VIEW FRONTAL and LATERAL) CLINICAL HISTORY: Chronic diastolic heart failure (HCC) MQ: XC2_6 EXAM DATE/TIME: 09/11/2019 3:24 PM COMPARISON: No relevant prior studies available. RESULT: Lines, tubes, and devices: None. Lungs and pleura: No consolidation. No lung mass. No pleural effusion. No pneumothorax. Cardiomediastinal silhouette: Stable cardiomediastinal silhouette. The bronchovascular markings are within normal limits. Bones and soft tissues: There is osteopenia and degenerative changes in the spine. IMPRESSION: No acute radiographic abnormality. Agricultural Scientist: PSCB Transcribe Date/Time: Sep 11 2019 3:28P Dictated by : SARA GUTIERREZ MD This examination was interpreted and the report reviewed and electronically signed by: SARA GUTIERREZ MD on Sep 11 2019 3:28PM EST [id number] [facility] HOSPon 06-17-2019 HOSP Patient:Jorge Davis MRN: Height:5' 5 (1.651 m) Weight:279 lb (126.554 kg) Outpatient Medications as of 09/18/19: metFORMIN (GLUCOPHAGE) 500 mg tablet furosemide (LASIX) 40 mg tablet COMPOUNDED PRESCRIPTION warfarin (COUMADIN) 4 mg tablet potassium chloride ER (K-DUR, KLOR-CON) 20 mEq tablet pravastatin (PRAVACHOL) 80 mg tablet ACETAMINOPHEN (TYLENOL 8 HOUR ORAL) allopurinol 300 mg tablet Admission/Clinic Administered Medications as of 09/18/19: Patient has no admission medications. Problem List: CHRISTIAN (obstructive sleep apnea) [G47.33] HTN (hypertension) [I10] Dyslipidemia [E78.5] Atrial fibrillation (HCC) [I48.91] Atherosclerosis of grand ronde tribes coronary artery of grand ronde tribes heart without angina pectoris [I25.10] Diabetes mellitus type 2, controlled, without complications (HCC) [E11.9] Persistent atrial fibrillation (HCC) [I48.19] Paroxysmal atrial fibrillation (HCC) [I48.0] Paroxysmal atrial flutter (HCC) [I48.92] Allergies: No Known Allergies Date Verified:09/11/19 Lab Values Lab Value Units Date High Low POTA* 4.3 mmol/L 09/11/2019 5.1 3.7 FISH* 50.1 % 09/11/2019 51.0 39.0 Progress Notes ([facility]): gNa Umanzor, RT 09/11/2019 3:23 PM Signed Radiology Service Progress Note PATIENT NAME: Jorge Davis DATE OF SERVICE: September 11, 2019 TIME: 3:22 PM PATIENT IDENTITY VERIFICATION COMPLETED USING TWO (2) IDENTIFIERS: Name and Date of confirmed by patient verbally. FALL SCREENING: Has the patient had 2 falls in the last year or 1 fall with injury or currently using an Ambulatory Assistive Device (Walker, Cane, Wheelchair, Crutches, etc.)? No PATIENT GENDER DATA: Male PATIENT RELEVANT IMPLANT DATA REVIEWED: Not Applicable RADIOLOGY DEPARTMENT: General X-ray: Exam(s) Completed: Chest X-Ray PERIPHERAL IV DATA: Not applicable SIGNED BY: Ellis Caruso, RT September 11, 2019 3:22 PM Progress Notes (CARD [facility] REJ): Venkat Evans MD 09/11/2019 2:16 PM Signed [place]: [place] [id number] [facility] [address] Primary Care Physician: Declan Swanson MD Jorge Davis is a 74 year old male that presents today for evaluation of NON OBS Coronary artery disease involving grand [place]onde tribes coronary artery of grand [place] tribes heart without angina pectoris Paroxysmal A-fib (HCC) Obstructive sleep apnea syndrome Diastolic CHF Pt presents with generalized fatigue at times Weight gain since pandemic ; Fatigue: continues Mild edema today but controlled with diuretics No orthopnea; back bothers him mostly which wakes him up No recent labs for the PVI No sensation of palpitation Breathing normally tikosyn was cost prohibitive so PVI is next option ASSESSMENT/PLAN: 1. Pre-operative exam - ICD9: V72.84, ICD10: Z01.818 (primary diagnosis) No evidence of overt CHF but will get pro bnp and chest xray so we can increase lasix if needed prior to PVI Other labs per EP as per protocol Will see EP GERMAIN this pm 2. Coronary artery disease involving grand [place] tribes coronary artery of grand [place] tribes heart without angina pectoris - ICD9: 414.01, ICD10: I25.10 Stable 3. Chronic diastolic heart failure (HCC) - ICD9: 428.32, ICD10: I50.32 Continue lasix for now See above comments 4. Paroxysmal atrial fibrillation (HCC) - ICD9: 427.31, ICD10: I48.0 For PVI Venkat Evans MD Current Medications: Current Outpatient Medications Medication Sig - metFORMIN (GLUCOPHAGE) 500 mg tablet Take 500 mg by mouth daily with breakfast. - furosemide (LASIX) 40 mg tablet Take 1 tablet by mouth once daily. - COMPOUNDED PRESCRIPTION Skin cream - patient unsure of name. - warfarin (COUMADIN) 4 mg tablet Patient takes 4 mg (1 tablet) on Monday. Takes 6 mg (1.5 tablets) all other days of the week - potassium chloride ER (K-DUR, KLOR-CON) 20 mEq tablet Take 1 tablet by mouth once daily. - pravastatin (PRAVACHOL) 80 mg tablet Take 1 tablet by mouth daily at bedtime. - ACETAMINOPHEN (TYLENOL 8 HOUR ORAL) Take by mouth as needed. 325 mg - 500 mg only as needed (not more than once per day) - allopurinol 300 mg tablet Take 300 mg by mouth once daily. No current facility-administered medications for this visit. PHYSICAL EXAMINATION: Vital Signs: BP 138/68 Pulse 89 Ht 165.1 cm (5' 5 ) Wt 126.6 kg (279 lb) BMI 46.43 kg/m? Body mass index is 46.43 kg/m?. GENERAL: Alert, oriented. HEENT: no lymphadenopathy. NECK: No JVD, masses, or thyromegaly. Good carotid upstrokes. No carotid bruit. No lymphadenopathy. CARDIAC: Irregular rhythm CHEST: Rhonchi ABDOMEN: Soft, nontender, with no obvious organomegaly or masses. No epigastric bruit. EDEMA: No edema PERIPHERAL PULSES: 2+ SKIN: warm peripheries, no rash. NEURO: no focal neurological deficit ECG 05/20/2019 Diagnosis:ATRIAL FIBRILLATION NONSPECIFIC ST ABNORMALITY , PROBABLY DIGITALIS EFFECT ABNORMAL ECG Confirmed by NIRMAL NEUMANN MD ([id number]) on 05/22/2019 9:24:01 PM ? Ventricular Rate : 61 ?BPM Atrial Rate : 174 ?BPM QRS Duration : 100 ?ms Q-T Interval : 454 ?ms QTC Calculation(Bazett) : 457 ?ms R Taylor : 0 ?degrees T Taylor : 49 ?degrees PAST MEDICAL HISTORY Diagnosis Date - Acute gastric ulcer - Atrial fibrillation (HCC) - DM2 (diabetes mellitus, type 2) (HCC) - ED (erectile dysfunction) - Left ureteral calculus - Obstructive chronic bronchitis with exacerbation (HCC) COPD - Perianal dermatitis - Tubular adenoma PAST SURGICAL HISTORY Procedure Laterality Date - CARDIAC CATH 2009 - CARDIAC CATH 06/16/2015 - COLONOSCOPY - OPEN CHONDROPLASTY W/ MICRO DRILLING 2005 - PAST SURGICAL HISTORY OF 1974 Fistulotomy - PAST SURGICAL HISTORY OF Partial Medial Menisectomy Bilateral Knee - PAST SURGICAL HISTORY OF 1991 Acrominoplasty Right Shoulder - PAST SURGICAL HISTORY OF Bilateral Club Foot Surgery - PAST SURGICAL HISTORY OF 2008 Anthroscopy Left Shoulder - PAST SURGICAL HISTORY OF 2010 Revision Left Knee - PAST SURGICAL HISTORY OF minor hand surgery - [place] ANESTH,TOTAL KNEE ARTHROPLASTY 2006 Right Knee - REPAIR UMBILICAL HERNIA 2007 - ROTATOR CUFF REPAIR 1993 Left Shoulder - ROTATOR CUFF REPAIR 1996 Right Shoulder - TOTAL KNEE REPLACEMENT 2000 Left Knee Do you need any refills today? No Allergies: ALLERGIES No Known Allergies Social History: TOBACCO: Tobacco Use: for 25 years. Quit 12/11/2012. Types: Cigars ALCOHOL: Social drinker ROS: Card: See present history. Pulm:No cough or sputum production Gastro:no bowel changes. GenUr:no urinary symptoms. Endo:no chronic fatigue, significant weight loss/gain, heat/cold intolerance. Neuro:no focal weakness, focal sensory loss, headache, visual changes, seizure activity, ataxia, speech/language loss. Rheum:no joint swelling, back pain, knee pain, hip pain, or neck pain. Infect:no fevers, chills, rigors or night sweats. Skin:no rash Heme:no bruising LIPIDS: Triglyceride (mg/dL) Date Value 04/03/2019 52 Cholesterol, Total (mg/dL) Date Value 04/03/2019 129 HDL Cholesterol (mg/dL) Date Value 04/03/2019 50 LDL Cholesterol (mg/dL) Date Value 04/03/2019 69 Venkat Evans MD Previous Version Normal [facility] PROGRESSon 05-20-2019 PROGRESS HNO ID: [id number] Author: Jazmine Woodson (Rt) Castillo Peña Service: Radiology Author Type: Automotive Customer Experience Advisor Type: Progress Notes Filed: 05/20/2019 9:32 AM Note Text: Radiology Service Progress Note PATIENT NAME: Jorge Davis DATE OF SERVICE: May 20, 2019 TIME: 9:32 AM PATIENT IDENTITY VERIFICATION COMPLETED USING TWO (2) IDENTIFIERS: Name and Date of confirmed by patient verbally. PATIENT GENDER DATA: Male PATIENT RELEVANT IMPLANT DATA REVIEWED: Not Applicable RADIOLOGY DEPARTMENT: General X-ray: Exam(s) Completed: Chest X-Ray PERIPHERAL IV DATA: Not applicable SIGNED BY: Jarrod Sarabiasamia RT May 20, 2019 9:32 AM [facility] XR CHEST 2V FRONTAL/LATon XR CHEST 2V FRONTAL/LAT * * *Final Report* * * DATE OF EXAM: May 20 2019 9:35AM VHX 5291 - XR CHEST 2V FRONTAL/LAT / PROCEDURE REASON: Pre-operative exam * * * * Physician Interpretation * * * * EXAMINATION: CHEST RADIOGRAPH (2 VIEW FRONTAL and LATERAL) CLINICAL HISTORY: Pre-operative exam MQ: XC2_6 EXAM DATE/TIME: 05/20/2019 9:35 AM COMPARISON: 07/10/2015 RESULT: 1. Lines, Tubes, and Devices: N/A 2. Lungs and Pleura: Elevation of the right hemidiaphragm anteriorly is again noted. Bilateral basal linear atelectasis or scar. No focal consolidation, vascular congestion, pleural effusion or pneumothorax. The upper anterior lungs are partially obscured due to overlying arms. No obvious lung nodule or mass in the visualized lungs. 3. Cardiomediastinal silhouette: The trachea, mediastinum and cardio silhouette show no significant interval change. 4. Other: Degenerative changes of the thoracic spine with marginal spurs. IMPRESSION: Bilateral basal linear atelectasis or scar. No other acute chest process or interval change. Agricultural Scientist: LELIA Transcribe Date/Time: May 20 2019 9:45A Dictated by : HORTENSIA MEEKS MD This examination was interpreted and the report reviewed and electronically signed by: HORTENSIA MEEKS MD on May 20 2019 9:46AM EST [id number] [facility] CNPNon 04-17-2019 CNPN Telephone (AVPRAD) JORGE DAVIS ([id number]) 1945 M Date Time Provider Department 04/17/19 MAGGI SCHNEIDER (JUVENTINO REYNOSO During your visit today, we recorded the following information about you: Maggi Schneider APRN.CNP 04/17/2019 4:13 PM Signed Please contact patient. Appointment with hanna can be cancelled. He just needs 14 day ZIO monitor application and follow up with me in 6-8 weeks after that. Thank you! REFUGIO Christensen 04/17/2019 4:23 PM Signed Called patient and scheduled appointment. He will schedule follow up when in the office Allergies As of Date: 04/17/2019 (No Known Allergies) Date Reviewed: 03/18/2019 Reviewed by: Jazmine Mathews - Fully Assessed Reason for Visit: Clinical Update [1735] Primary Visit Diagnosis:PAF (paroxysmal atrial fibrillation) (HCC) [I48.0] Order(s):OUTSIDE VENDOR CARDIAC OUTPATIENT EXTENDED RHYTHM RECORDING (WITHOUT TELEMETRY) [[id number]] Order #: [id number]: 1 Prescriptions as of 04/17/2019 Sig: DOFETILIDE 125 MCG CAPSULE Take 3 capsules by mouth ever* X PERFLUTREN LIPID MICROSPHERES* Inject 1.3 mL intravenously a* FUROSEMIDE 40 MG TABLET Take 1 tablet by mouth once d* COMPOUNDED PRESCRIPTION Skin cream - patient unsure o* WARFARIN 4 MG TABLET Patient takes 4 mg (1 tablet)* POTASSIUM CHLORIDE ER 20 MEQ * Take 1 tablet by mouth once d* X METFORMIN 500 MG TABLET Take 1 tablet by mouth daily * PRAVASTATIN 80 MG TABLET Take 1 tablet by mouth daily * TYLENOL 8 HOUR ORAL Take by mouth as needed. 325* ALLOPURINOL 300 MG TABLET Take 300 mg by mouth once imelda* Problem List As Of Date 04/17/2019 Noted Resolved CHRISTIAN (obstructive sleep apnea) [G47.33] 01/07/2014 HTN (hypertension) [I10] 01/07/2014 Dyslipidemia [E78.5] 01/07/2014 Atrial fibrillation (HCC) [I48.91] 07/08/2014 Atherosclerosis of grand ronde tribes coronary artery of na*07/10/2015 Diabetes mellitus type 2, controlled, without c*07/10/2015 Persistent atrial fibrillation (HCC) [I48.19] 07/22/2015 Paroxysmal atrial fibrillation (HCC) [I48.0] 12/04/2015 Paroxysmal atrial flutter (HCC) [I48.92] 05/30/2018 Encounter Status:Closed by MAGGI SCHNEIDER on 04/19/19 [facility] PROCEDUREon 04-17-2019 PROCEDURE HNO ID: [id number] Author: Martienz Stallworth Service: ? Author Type: Resource Type: Procedures Filed: 05/13/2019 8:42 AM Note Text: Patient had a min HR of 31 bpm, max HR of 190 bpm, and avg HR of 66 bpm. Predominant underlying rhythm was Sinus Rhythm. First Degree AV Block was present. Difficulty discerning atrial activity making definitive diagnosis difficult to ascertain. 4 Ventricular Tachycardia runs occurred, the run with the fastest interval lasting 5 beats with a max rate of 190 bpm, the longest lasting 9 beats with an avg rate of 137 bpm. 43 Supraventricular Tachycardia runs , some of which are possibly AF, occurred, the run with the fastest interval lasting 11.1 secs with a max rate of 138 bpm, the longest lasting 29.5 secs with an avg rate of 117 bpm. Atrial Fibrillation occurred (12% burden), ranging from 37-137 bpm (avg of 70 bpm), the longest lasting 1 day 17 hours with an avg rate of 70 bpm. Atrial Fibrillation was present at de-activation of device. 2 Pauses occurred, the longest lasting 3.2 secs (19 bpm) during sleep, while in AF. Second Degree AV Block- Mobitz I (Wenckebach) was present. Isolated SVEs were rare (<1.0%), SVE Couplets were rare (<1.0%), and SVE Triplets were rare (<1.0%). Isolated VEs were rare (<1.0%, 6998), VE Couplets were rare (<1.0%, 54), and VE Triplets were rare (<1.0%, Ventricular Bigeminy and Trigeminy were present. Independently reviewed and verified Ruben Denton MD May 13, 2019 8:42 AM [facility] Vital Signs Date Time Vital Sign Value Performing Clinician Facility 08-21-2023 11:37-0400 Body height 167.64 cm [facility] 08-21-2023 11:37-0400 Body mass index (BMI) [Ratio] 41.3 kg/m2 [facility] 08-21-2023 11:37-0400 Body weight 116.28 kg [facility] 08-21-2023 11:37-0400 Diastolic blood pressure 77 mm[Hg] [facility] 08-21-2023 11:37-0400 Heart rate 85 /min [facility] 08-21-2023 11:37-0400 Respiratory rate 12 /min [facility] 08-21-2023 11:37-0400 Systolic blood pressure 128 mm[Hg] [facility] 08-09-2023 13:44-0400 Body height 167.64 cm [facility] 08-09-2023 13:44-0400 Body mass index (BMI) [Ratio] 42.1 kg/m2 [facility] 08-09-2023 13:44-0400 Body weight 118.38 kg [facility] 08-09-2023 13:44-0400 Diastolic blood pressure 76 mm[Hg] [facility] 08-09-2023 13:44-0400 Heart rate 85 /min [facility] 08-09-2023 13:44-0400 Respiratory rate 16 /min [facility] 08-09-2023 13:44-0400 Systolic blood pressure 136 mm[Hg] [facility] 07-04-2023 08:58-0400 Body height 165.1 cm Shama Ibanez PA-C Work Phone: [facility] 07-04-2023 08:58-0400 Body mass index (BMI) [Ratio] 44.5 kg/m2 Shama VEGA-C Work Phone: [facility] 07-04-2023 08:58-0400 Body weight 121.3 kg Shama VEGA-C Work Phone: [facility] 07-04-2023 08:58-0400 Diastolic blood pressure 78 mm[Hg] Shama VEGA-C Work Phone: [facility] 07-04-2023 08:58-0400 Heart rate 80 /min Shamazeeshan Ibanez PA-C Work Phone: [facility] 07-04-2023 08:58-0400 Systolic blood pressure 146 mm[Hg] Shama Ibanez PA-C Work Phone: [facility] 06-05-2023 13:48-0400 Body weight 120.2 kg Venkat Emanuel MD Work Phone: [facility] 06-05-2023 13:48-0400 Diastolic blood pressure 78 mm[Hg] Venkat Emanuel MD Work Phone: [facility] 06-05-2023 13:48-0400 Heart rate 74 /min Venkat Emanuel MD Work Phone: [facility] 06-05-2023 13:48-0400 Systolic blood pressure 124 mm[Hg] Venkat Emanuel MD Work Phone: [facility] 03-23-2023 11:00-0500 Body height 167.64 cm Declan Ball Other [facility] 03-23-2023 11:00-0500 Body mass index (BMI) [Ratio] 43.15 kg/m2 Declan Ball Other [facility] 03-23-2023 11:00-0500 Body weight 121.29 kg Declan Ball Other [facility] 03-23-2023 11:00-0500 Diastolic blood pressure 89 mm[Hg] Declan Ball Other [facility] 03-23-2023 11:00-0500 Systolic blood pressure 142 mm[Hg] Declan Ball Other [facility] 01-03-2023 11:45-0400 Body height 167.64 cm Declan Ball Other [facility] 01-03-2023 11:45-0400 Body mass index (BMI) [Ratio] 42.57 kg/m2 Declan Ball Other [facility] 01-03-2023 11:45-0400 Body weight 119.66 kg Declan Ball Other [facility] 01-03-2023 11:45-0400 Diastolic blood pressure 78 mm[Hg] Declan Ball Other [facility] 01-03-2023 11:45-0400 Respiratory rate 16 /min Declan Ball Other [facility] 01-03-2023 11:45-0400 Systolic blood pressure 128 mm[Hg] Declan Ball Other [facility] 12-14-2022 11:30-0400 Body height 167.64 cm Declan Ball Other [facility] 12-14-2022 11:30-0400 Body mass index (BMI) [Ratio] 43.61 kg/m2 Declan Ball Other [facility] 12-14-2022 11:30-0400 Body weight 122.56 kg Declan Ball Other [facility] 12-14-2022 11:30-0400 Diastolic blood pressure 86 mm[Hg] Declan Ball Other [facility] 12-14-2022 11:30-0400 Respiratory rate 12 /min Declan Ball Other [facility] 12-14-2022 11:30-0400 Systolic blood pressure 141 mm[Hg] Declan Ball Other [facility] 12-13-2022 09:58-0400 Diastolic blood pressure 70 mm[Hg] DO Declan Ball Work Phone: [facility] 12-13-2022 09:58-0400 Heart rate 56 /min DO Declan Ball Work Phone: [facility] 12-13-2022 09:58-0400 Respiratory rate 16 /min DO Declan Ball Work Phone: [facility] 12-13-2022 09:58-0400 SaO2% (BldA) [Mass fraction] 95 % DO Declan Ball Work Phone: [facility] 12-13-2022 09:58-0400 Systolic blood pressure 149 mm[Hg] DO Declan Ball Work Phone: [facility] 12-13-2022 09:15-0400 Inhaled oxygen flow rate 3 L/min DO Declan Ball Work Phone: [facility] 12-13-2022 08:53-0400 Body height 157.48 cm DO Declan Ball Work Phone: [facility] 12-13-2022 08:53-0400 Body weight 120.2 kg DO Declan Ball Work Phone: [facility] 11-04-2022 14:45-0400 Body height 167.64 cm Declan Ball Other [facility] 11-04-2022 14:45-0400 Body mass index (BMI) [Ratio] 43.64 kg/m2 Declan Ball Other [facility] 11-04-2022 14:45-0400 Body weight 122.65 kg Declan Ball Other [facility] 11-04-2022 14:45-0400 Diastolic blood pressure 87 mm[Hg] Declan Ball Other [facility] 11-04-2022 14:45-0400 Respiratory rate 16 /min Declan Ball Other [facility] 11-04-2022 14:45-0400 Systolic blood pressure 148 mm[Hg] Declan Ball Other [facility] 10-13-2022 11:00-0400 Body height 167.64 cm Declan Ball Other [facility] 10-13-2022 11:00-0400 Body mass index (BMI) [Ratio] 43.41 kg/m2 Declan Ball Other [facility] 10-13-2022 11:00-0400 Body weight 122.02 kg Declan Ball Other [facility] 10-13-2022 11:00-0400 Diastolic blood pressure 75 mm[Hg] Declan Ball Other [facility] 10-13-2022 11:00-0400 Respiratory rate 16 /min Declan Ball Other [facility] 10-13-2022 11:00-0400 Systolic blood pressure 132 mm[Hg] Declan Ball Other [facility] 09-15-2022 09:15-0400 Body height 167.64 cm Declan Ball Other [facility] 09-15-2022 09:15-0400 Body mass index (BMI) [Ratio] 43.22 kg/m2 Declan Ball Other [facility] 09-15-2022 09:15-0400 Body weight 121.47 kg Declan Ball Other [facility] 09-15-2022 09:15-0400 Diastolic blood pressure 81 mm[Hg] Declan Ball Other [facility] 09-15-2022 09:15-0400 Respiratory rate 12 /min Declan Ball Other [facility] 09-15-2022 09:15-0400 Systolic blood pressure 139 mm[Hg] Declan Ball Other [facility] 08-16-2022 11:30-0400 Body height 167.64 cm Declan Ball Other [facility] 08-16-2022 11:30-0400 Body mass index (BMI) [Ratio] 43.19 kg/m2 Declan Ball Other [facility] 08-16-2022 11:30-0400 Body weight 121.38 kg Declan Ball Other [facility] Other 08-16-2022 11:30-0400 Diastolic blood pressure 73 mm[Hg] Declan Ball Other [facility] Other 08-16-2022 11:30-0400 Respiratory rate 12 /min Declan Ball Other [facility] Other 08-16-2022 11:30-0400 Systolic blood pressure 124 mm[Hg] Declan Ball Other [facility] 06-24-2022 14:14-0400 Body height 165.1 cm Ruben Denton MD Work Phone: [facility] 06-24-2022 14:14-0400 Body weight 122.02 kg Ruben Denton MD Work Phone: [facility] 06-24-2022 14:14-0400 Diastolic blood pressure 82 mm[Hg] Ruben Denton MD Work Phone: [facility] 06-24-2022 14:14-0400 Heart rate 69 /min Ruben Denton MD Work Phone: [facility] 06-24-2022 14:14-0400 Systolic blood pressure 155 mm[Hg] Ruben Denton MD Work Phone: [facility] 05-16-2022 11:30-0500 Body height 167.64 cm Declan Ball Other [facility] 05-16-2022 11:30-0500 Body mass index (BMI) [Ratio] 44.87 kg/m2 Declan Ball Other [facility] 05-16-2022 11:30-0500 Body weight 126.1 kg Declan Ball Other [facility] Other 05-16-2022 11:30-0500 Diastolic blood pressure 82 mm[Hg] Declan Ball Other [facility] 05-16-2022 11:30-0500 Respiratory rate 12 /min Declan Ball Other [facility] 05-16-2022 11:30-0500 SaO2% (BldA) [Mass fraction] 97 % Declan Ball Other [facility] 05-16-2022 11:30-0500 Systolic blood pressure 122 mm[Hg] Declan Ball Other [facility] 03-22-2022 09:30-0500 Body height 167.64 cm Declan Ball Other [facility] 03-22-2022 09:30-0500 Body mass index (BMI) [Ratio] 44.41 kg/m2 Declan Ball Other [facility] 03-22-2022 09:30-0500 Body weight 124.83 kg Declan Ball Other [facility] 03-22-2022 09:30-0500 Diastolic blood pressure 82 mm[Hg] Declan Ball Other [facility] 03-22-2022 09:30-0500 Respiratory rate 20 /min Declan Ball Other [facility] 03-22-2022 09:30-0500 Systolic blood pressure 122 mm[Hg] Declan Ball Other [facility] 12-31-2021 13:06-0400 Body weight 122.02 kg Venkat Emanuel MD Work Phone: [facility] 12-31-2021 13:06-0400 Diastolic blood pressure 70 mm[Hg] Venkat Emanuel MD Work Phone: [facility] 12-31-2021 13:06-0400 Heart rate 84 /min Venkat Emanuel MD Work Phone: [facility] 12-31-2021 13:06-0400 SaO2% (BldA) [Mass fraction] 97 % Venkat Emanuel MD Work Phone: [facility] 12-31-2021 13:06-0400 Systolic blood pressure 110 mm[Hg] Venkat Emanuel MD Work Phone: [facility] 06-25-2021 13:14-0400 Body height 165.1 cm Ruben Denton MD Work Phone: [facility] 06-25-2021 13:14-0400 Body weight 124.74 kg Ruben Denton MD Work Phone: [facility] 06-25-2021 13:14-0400 Diastolic blood pressure 80 mm[Hg] Ruben Denton MD Work Phone: [facility] 06-25-2021 13:14-0400 Heart rate 69 /min Ruben Denton MD Work Phone: [facility] 06-25-2021 13:14-0400 Systolic blood pressure 132 mm[Hg] Ruben Denton MD Work Phone: [facility] 05-20-2021 10:00-0500 Body height 167.64 cm [employer] Other [facility] 05-20-2021 10:00-0500 Body mass index (BMI) [Ratio] 43.9 kg/m2 [employer] Other [facility] 05-20-2021 10:00-0500 Body weight 123.38 kg [employer] Other [facility] Other Encounters Encounter Date Encounter Type Care Provider Facility Start: 08-21-2023 End: 08-21-2023 ambulatory [facility] Work Phone: Start: 08-21-2023 End: 08-21-2023 Patient encounter procedure [facility] Work Phone: Start: 08-09-2023 End: 08-09-2023 ambulatory [facility] Work Phone: Start: 08-09-2023 End: 08-09-2023 Patient encounter procedure [facility] Work Phone: Start: 07-25-2023 Telephone encounter Ruben murillo MD Work Phone: Cardiology Comment on above: Received Outside Med ical Records (INR) Start: 07-04-2023 End: 07-04-2023 ambulatory DECLAN Coleman [place] Facility:[facility] Start: 07-04-2023 End: 07-04-2023 Patient encounter procedure Shama Ibanez PA-C Work Phone: Cardiology Comment on above: Atrial fibrillation, persistent (HCC) (Primary Dx); S/P ablation of atrial fibrillation; On continuous oral anticoagulation Start: 06-27-2023 Telephone encounter Ruben murillo MD Work Phone: Cardiology Comment on above: Received Outside Med ical Records Start: 06-23-2023 End: 06-23-2023 ambulatory [facility] Work Phone: Start: 06-23-2023 End: 06-23-2023 Patient encounter procedure [facility] Work Phone: Start: 06-20-2023 End: 06-20-2023 ambulatory JARROD DIALLO Not Available Start: 06-05-2023 End: 06-05-2023 ambulatory VENKAT EVANS Facility:[facility] Start: 06-05-2023 End: 06-05-2023 Patient encounter procedure Venkat Evans MD Work Phone: Cardiology Comment on above: Chronic diastolic he art failure (HCC) (Primary Dx); Atrial fibrillation, persistent (HCC); Obesity, Class III, 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); Mixed hyperlipidemia Start: 05-30-2023 Telephone encounter Ruben murillo MD Work Phone: Cardiology Comment on above: Received Outside Med ical Records (INR) Start: 05-02-2023 Telephone encounter Ruben murillo MD Work Phone: Cardiology Comment on above: Received Outside Med ical Records (INR results) Start: 04-06-2023 Telephone encounter Ruben murillo MD Work Phone: Cardiology Comment on above: Received Outside Med ical Records (INR Report 04/04/2023) Start: 03-23-2023 End: 03-23-2023 ambulatory Declan Swanson Other [facility] Other Start: 03-23-2023 Office outpatient vi sit 15 minutes Declan Swanson [facility] Start: 03-10-2023 End: 03-10-2023 ambulatory JARROD DIALLO Not Available Start: 02-07-2023 Telephone encounter Ruben murillo MD Work Phone: Cardiology Comment on above: Received Outside Med ical Records (INR Report 02/07/2023) Start: 01-11-2023 Telephone encounter Ruben murillo MD Work Phone: Cardiology Comment on above: Received Outside Med ical Records (INR Report 01/10/2023) Start: 01-05-2023 Telephone encounter Ruben murillo MD Work Phone: Cardiology Comment on above: Received Outside Med ical Records (INR Report 12/27/2022) Start: 01-03-2023 End: 01-03-2023 ambulatory Declan Swanson Other [facility] Other Start: 01-03-2023 Office outpatient vi sit 15 minutes Declan Ball [facility] Start: 01-03-2023 Telephone encounter Declan Swanson [facility] Start: 01-02-2023 End: 01-02-2023 ambulatory Declan Kiki Other [facility] Other Start: 01-02-2023 Office outpatient vi sit 15 minutes Declan Ball [facility] Start: 12-23-2022 Telephone encounter Ruben murillo MD Work Phone: Cardiology Comment on above: Received Outside Med ical Records Start: 12-20-2022 End: 12-20-2022 ambulatory Ruben Celis Other [facility] Other Start: 12-20-2022 Office outpatient vi sit 15 minutes Ruben Celis [facility] Start: 12-14-2022 End: 12-14-2022 ambulatory Decaln Ball Other [facility] Other Start: 12-14-2022 Office outpatient vi sit 25 minutes Declan Ball [facility] Start: 12-13-2022 (Procedure) Short Ruben Celis [facility] Start: 12-13-2022 End: 12-13-2022 ambulatory uRben Celis Facility:[facility] Start: 12-13-2022 End: 12-13-2022 Admission to same day surgery center DO Declan Swanson Work Phone: [facility] Work Phone: Start: 12-13-2022 End: 12-13-2022 ambulatory DO Declan Swanson Work Phone: [facility] Work Phone: Start: 11-24-2022 End: 11-24-2022 Patient encounter procedure DO eDclan Swanson Work Phone: [facility] [address] Work Phone: Start: 11-24-2022 End: 11-24-2022 ambulatory DO Declan Swanson Work Phone: [facility] Work Phone: Start: 11-24-2022 Telephone encounter Declan Swanson [facility] Start: 11-04-2022 End: 11-04-2022 ambulatory Declan Swanson Other [facility] Other Start: 11-04-2022 Office outpatient vi sit 15 minutes Declan Swanson [facility] Start: 11-04-2022 Telephone encounter Declan Swanson FP [facility] Start: 10-28-2022 Telephone encounter Ruben murillo MD Work Phone: Cardiology Comment on above: Received Outside Med ical Records Start: 10-26-2022 End: 10-26-2022 ambulatory Ruben Celis Other [facility] Other Start: 10-26-2022 Office outpatient vi sit 25 minutes Ruben Celis [facility] Start: 10-24-2022 End: 10-24-2022 ambulatory Declan Swanson Other [facility] Other Start: 10-24-2022 Telephone encounter Declan Swanson [facility] Start: 10-13-2022 End: 10-13-2022 ambulatory Declan Swanson Other [facility] Other Start: 10-13-2022 Office outpatient vi sit 15 minutes Declan Ball [facility] Start: 10-13-2022 Telephone encounter Ruben murillo MD Work Phone: Cardiology Comment on above: Received Outside Med ical Records Start: 10-12-2022 Office outpatient vi sit 25 minutes Bruce Shine II [facility] Start: 10-12-2022 End: 10-12-2022 ambulatory Declan Ball Facility:[facility] Start: 10-12-2022 End: 10-12-2022 ambulatory DO Declan Kiki Work Phone: [facility] Work Phone: Start: 10-12-2022 End: 10-12-2022 Patient encounter procedure DO Declan Ball Work Phone: [facility] Start: 09-16-2022 Telephone encounter Ruben murillo MD Work Phone: Cardiology Comment on above: Received Outside Med ical Records (INR Report) Start: 09-15-2022 End: 09-15-2022 ambulatory Declan Swanson Other [facility] Other Start: 09-15-2022 Office outpatient vi sit 15 minutes Declan Swanson [facility] Start: 09-07-2022 Telephone encounter Venkat gomez MD Work Phone: Cardiology Comment on above: Results Start: 09-01-2022 Telephone encounter Ruben murillo MD Work Phone: Cardiology Comment on above: Received Outside Med ical Records Start: 08-31-2022 End: 08-31-2022 ambulatory Declan Ball Other [facility] Other Start: 08-31-2022 Telephone encounter Declan Swanson [facility] Start: 08-29-2022 End: 08-29-2022 ambulatory Declan Ball Other [facility] Other Start: 08-29-2022 Telephone encounter Declan RBYAN [facility] Start: 08-16-2022 End: 08-16-2022 ambulatory Declan Swanson Other [facility] Other Start: 08-16-2022 Patient encounter procedure Declan Swanson [facility] Start: 08-16-2022 Telephone encounter Declan BRYAN [facility] Start: 07-21-2022 Telephone encounter Ruben murillo MD Work Phone: Cardiology Comment on above: Received Outside Med ical Records Start: 07-14-2022 Telephone encounter Venkat gomez MD Work Phone: Cardiology Comment on above: Results Start: 07-11-2022 End: 08-10-2022 ambulatory SHAIKH Julianne PARKERWWAD Facility:[facility] Start: 06-27-2022 End: 06-27-2022 ambulatory Bruce Shine II Other [facility] Other Start: 06-27-2022 Telephone encounter Ruben murillo MD Work Phone: Cardiology Comment on above: Patient Update Start: 06-24-2022 End: 06-24-2022 Patient encounter procedure Ruben Denton MD Work Phone: Cardiology Comment on above: Atrial fibrillation, persistent (HCC) (Primary Dx); S/P ablation of atrial fibrillation; Controlled type 2 diabetes mellitus without complication, without long-term current use of insulin (HCC); Encounter for current long-term use of anticoagulants; CHRISTIAN (obstructive sleep apnea); Essential hypertension; Obesity, Class III, BMI >= 40; Atherosclerosis of [place] tribes coronary artery of grand [place] tribes heart without angina pectoris Start: 06-23-2022 Telephone encounter Ruben murillo MD Work Phone: Cardiology Comment on above: Received Outside Med ical Records Start: 06-13-2022 End: 07-08-2022 ambulatory SHAIKH Julianne MORALES Facility:[facility] Start: 05-27-2022 Telephone encounter Ruben murillo MD Work Phone: Cardiology Comment on above: Received Outside Med ical Records Start: 05-16-2022 End: 05-17-[address] DECLAN SWANSON [facility] Other Start: 05-16-2022 Office outpatient vi sit 25 minutes Declan Swanson [facility] Start: 05-11-2022 End: 06-10-[address] DECLAN SWANSON Facility:[facility] Start: 04-27-2022 End: 04-27-2022 ambulatory Declan Swanson Other [facility] Other Start: 04-27-2022 Telephone encounter Declan Swanson [facility] Start: 04-13-2022 End: 05-11-[address] DECLAN SWANSON Facility:[facility] Start: 03-22-2022 End: 03-22-2022 ambulatory Declan Swanson Other [facility] Other Start: 03-22-2022 Office outpatient vi sit 15 minutes Declan Swanson [facility] Start: 03-22-2022 Telephone encounter Declan Swanson [facility] Start: 03-21-2022 End: 03-21-2022 ambulatory Declan Swanson Other [facility] Other Start: 03-21-2022 Telephone encounter Declan Swanson [facility] Start: 03-14-2022 End: 04-13-2022 ambulatory SHAIKH Julianne MORALES Facility:[facility] Start: 03-10-2022 Telephone encounter Ruben murillo MD Work Phone: Cardiology Comment on above: Received Outside Med ical Records Start: 02-28-2022 End: 03-01-[address] DECLAN SWANSON Facility:[facility] Start: 02-22-2022 End: 02-23-[address] DECLAN SWANSON Facility:[facility] Start: 02-16-2022 End: 02-17-[address] DECLAN SWANSON Facility:[facility] Start: 02-10-2022 End: 03-13-2022 ambulatory SHAIKH Julianne MORALES Facility:[facility] Start: 02-01-2022 Telephone encounter Ruben murillo MD Work Phone: Cardiology Comment on above: Received Outside Med ical Records Start: 01-20-2022 Telephone encounter Jarrod powers MD Work Phone: Cardiology Comment on above: Received Outside Med ical Records Start: 01-18-2022 Telephone encounter Ruben murillo MD Work Phone: Cardiology Comment on above: Received Outside Med ical Records Start: 01-11-2022 End: 02-09-2022 ambulatory PIERRE H ANDREW Facility:[facility] Start: 01-05-2022 Telephone encounter Ruben murillo MD Work Phone: Cardiology Comment on above: Received Outside Med ical Records Start: 01-04-2022 Telephone encounter Ruben murillo MD Work Phone: Cardiology Comment on above: Received Outside Med ical Records Start: 12-31-2021 End: 12-31-2021 Patient encounter procedure Venkat Evans MD Work Phone: Cardiology Comment on above: Chronic diastolic he art failure (HCC) (Primary Dx); Paroxysmal atrial fibrillation (HCC); Coronary artery disease involving grand [place] tribes coronary artery of [place] tribes heart without angina pectoris; Controlled type 2 diabetes mellitus without complication, without long-term current use of insulin (HCC) Start: 12-21-2021 Telephone encounter Ruben murillo MD Work Phone: Cardiology Comment on above: Received Outside Med ical Records Start: 12-12-2021 End: 01-10-2022 ambulatory PIERRE H ANDREW Facility:[facility] Start: 12-07-2021 Telephone encounter Ruben murillo MD Work Phone: Cardiology Comment on above: Received Outside Med ical Records Start: 11-11-2021 End: 12-11-2021 ambulatory PIERRE H ANDREW Facility:[facility] Start: 10-11-2021 End: 11-10-2021 ambulatory SHAIKH Julianne MORALES Facility:[facility] Start: 09-24-2021 End: 09-25-[address] DECLAN SWANSON Facility:[facility] Start: 09-22-2021 End: 09-23-[address] DECLAN SWANSON Facility:[facility] Start: 09-10-2021 End: 10-08-2021 ambulatory SHAIKH Julianne MORALES Facility:[facility] Start: 07-08-2021 Telephone encounter Ruben murillo MD Work Phone: Cardiology Comment on above: Received Outside [facility] Records (INR Report 07/08/2021) Start: 06-25-2021 End: 06-25-2021 Patient encounter procedure Ruben Denton MD Work Phone: Cardiology Comment on above: Atrial fibrillation, persistent (HCC) (Primary Dx); S/P ablation of atrial fibrillation; Obesity, Class III, BMI >= 40; Controlled type 2 diabetes mellitus without complication, without long-term current use of insulin (HCC); CHRISTIAN (obstructive sleep apnea); Atherosclerosis of [place] tribes coronary artery of [place] heart without angina pectoris; Encounter for current long-term use of anticoagulants Acute on chronic damian stolic heart failure (HCC) (Primary Dx); Primary hypertension Start: 06-10-2021 Telephone encounter Ruben murillo MD Work Phone: Cardiology Comment on above: Received Outside Med [facility] Records (INR Results 06/10/2021) Start: 05-31-2021 Telephone encounter Ruben murillo MD Work Phone: Cardiology Comment on above: Patient Update Start: 05-20-2021 End: 05-20-2021 ambulatory Bruce Shine II Other [facility] Other Start: 05-20-2021 Office outpatient ne w 45 minutes Bruce Shine II [facility] Start: 04-21-2021 Telephone encounter Ruben murillo MD Work Phone: Cardiology Comment on above: Results (PT INR ) Start: 12-29-2020 Adult health examination Kali Swanson Other [facility] Other Procedures Date Procedure Procedure Detail Performing Clinician Start: 06-05-2023 Ecg routine ecg w/le ast 12 lds i&r only [facility] Provider Start: 12-13-2022 Epidural injection o f lumbar spine using fluoroscopic guidance DO Declan Swanson Work Phone: Start: 11-24-2022 MR lumbar spine wo con DO Declan wildcraft Work Phone: Start: 11-24-2022 XR pre/post mri xray DO Declan wildcraft Work Phone: Start: 10-12-2022 Plain x-ray of pelvi s and lower extremity DO [employer] Work Phone: Start: 10-12-2022 X-ray of both knees DO Declan wildcraft Work Phone: Start: 10-23-2019 Antibody screen Comment on above: Performed By: #### T SCR ####[id number] [place], [place] [id number] Start: 09-18-2019 Antibody screen Comment on above: Performed By: #### T SCR ####[address] [phone] Start: 12-10-2015 Screening for malign ant neoplasm of colon Declan Swanson Other Start: 06-03-2015 General examination of patient Declan Swanson Other Start: 11-04-2013 Screening for malign ant neoplasm of prostate Declan Swanson Other Depression screening Bradami n Ball Other Depression screening Verenice n Ball Other H/O: artificial joint Bruce Welton II Other History of operative procedure on knee Bruce Rl II Other Screening for malign ant neoplasm of colon Bruce Rl II Other Screening for malign ant neoplasm of prostate Declan Swanson Other Plan of Treatment Date Care Activity Detail Author Start: 03-16-2033 Urine microalbumin profile DTa P,Tdap,Td Vaccine (2 - Td or Tdap) [facility] Start: 06-04-2024 BP Controlled (<130/80) BP Con trolled (<130/80) [facility] Start: 12-08-2023 End: 12-08-2023 Patient encounter procedure Cardiology Comment on above: echo Return in about 6 mo nths (around 12/06/2023). Start: 11-12-2023 Influenza vaccination Influenz a Vaccine (Season Ended) [facility] Start: 03-13-2023 Advance Directive Discussion Advance Directive Discussion [facility] Start: 03-13-2023 Behavioral Health Screening Behavioral Health Screening [facility] Start: 03-13-2023 Depression Assessment Depression Ass essment [facility] Start: 12-31-2022 BP CONTROLLED (<130/80) BP CON TROLLED (<130/80) [facility] Start: 12-13-2022 [facility] Start: 11-11-2022 Covid-19 Vaccine () Covid-19 Vaccine () [facility] Start: 11-11-2022 Influenza vaccination C [facility] Start: 03-13-2022 ADVANCE DIRECTIVE DISCUSSION ADVANCE DIRECTIVE DISCUSSION [facility] Start: 03-13-2022 DEPRESSION ASSESSMENT DEPRESSION ASS ESSMENT [facility] Start: 11-11-2021 Influenza vaccination INFLUENZA (#1) [facility] Start: 09-18-2021 Hepatitis B surface antibody level LDL CHOLESTEROL [facility] Start: 06-25-2021 End: 08-25-2021 CBC panel - Blood by Automated count CBC Lab Routine Acute on chronic diastolic heart failure (HCC) Primary hypertension Expected: 06/25/2021, Expires: 08/25/2021 [facility] Work Phone: Comment on above: Expected: 06/25/2021 , Expires: 08/25/2021 Start: 06-25-2021 End: 08-25-2021 Comprehensive metabolic 2000 panel - Serum or Plasma COMP METABOLIC PANEL Lab Routine Acute on chronic diastolic heart failure (HCC) Primary hypertension Expected: 06/25/2021, Expires: 08/25/2021 [facility] Work Phone: Comment on above: Expected: 06/25/2021 , Expires: 08/25/2021 Start: 06-25-2021 End: 08-25-2021 LIPID PANEL BASIC LIPID PANEL BASIC Lab Routine Acute on chronic diastolic heart failure (HCC) Primary hypertension Expected: 06/25/2021, Expires: 08/25/2021 [facility] Work Phone: Comment on above: Expected: 06/25/2021 , Expires: 08/25/2021 Start: 05-20-2021 COVID-19 VACCINE (4 - Booster for Moderna series) COVID-19 VACCINE (4 - Booster for Moderna series) [facility] Start: 03-21-2021 Hemoglobin A1c measurement HbA1C [facility] Start: 03-21-2021 Hemoglobin A1c/Hemoglobin.total in Blood HBA1C [facility] Start: 03-17-2021 COVID-19 VACCINE (4 - Booster for Moderna series) COVID-19 VACCINE (4 - Booster for Moderna series) [facility] Start: 03-17-2021 COVID-19 VACCINE (4 - Moderna series) COVID-19 VACCINE (4 - Moderna series) [facility] Start: 03-13-2021 ADVANCE DIRECTIVE DISCUSSION ADVANCE DIRECTIVE DISCUSSION [facility] Start: 03-13-2021 DEPRESSION ASSESSMENT DEPRESSION ASS ESSMENT [facility] Start: 11-11-2020 Influenza vaccination INFLUENZA (#1) [facility] Start: 11-01-2020 COVID-19 VACCINE (3 - Booster for Moderna series) COVID-19 VACCINE (3 - Booster for Moderna series) [facility] Start: 11-09-2015 Pneumococcal Vaccine : 65+ (2 - PCV) Pneumococcal Vaccine: 65+ (2 - PCV) [facility] Start: 11-09-2015 Pneumococcal Vaccine : 65+ (2 of 2 - PCV) Pneumococcal Vaccine: 65+ (2 of 2 - PCV) [facility] Start: 11-09-2015 PNEUMOCOCCAL: 65+ (2 - PCV) PNEUMOCOCCAL: 65+ (2 - PCV) [facility] Start: 2010 ADVANCE DIRECTIVE DISCUSSION ADVANCE DIRECTIVE DISCUSSION [facility] Start: 2005 Hepatitis B Vaccine (1 of 3 - Risk 3-dose series) Hepatitis B Vaccine (1 of 3 - Risk 3-dose series) [facility] Start: 2005 RSV Vaccine (1 - 1-d ose 60+ series) RSV Vaccine (1 - 1-dose 60+ series) [facility] Start: 1995 SHINGRIX VACCINE (1 of 2) SHAH GRIX VACCINE (1 of 2) [facility] Start: 01-17-1964 Urine microalbumin profile [facility] Start: 1963 ANNUAL 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 VISIT ANNUAL PCP TEAM CHRONIC DISEASE VISIT [facility] Start: 1963 BP CONTROLLED (<130/80) BP CON TROLLED (<130/80) [facility] Start: 1963 HEPATITIS C SCREENING HEPATITIS C [facility] Start: 1963 Hepatitis C screening Hepatitis C [facility] Start: 1957 Adult depression scr eening assessment DEPRESSION SCREENING [facility] Start: 1955 3 comp foot exam completed DIABETIC FOOT EXAM [facility] Start: 1955 Diabetic foot examination Diabetic F oot Exam [facility] Start: 1955 Glaucoma screening Dilated Retinal E xam [facility] Start: 1955 Hepatitis B screening URINE ALBUMIN:CREATININE RATIO [facility] Start: 1955 Hepatitis C antibody , confirmatory test DILATED RETINAL EXAM [facility] End: 06-01-2022 ECG COMPLETE ECG COMPLETE ECG Routine Atrial fibrillation, persistent (HCC) 1 Occurrences starting 06/01/2021 until 06/01/2022 [facility] Work Phone: Comment on above: 1 Occurrences starti ng 06/01/2021 until 06/01/2022 End: 06-25-2022 ECG COMPLETE ECG COMPLETE ECG Routine Atrial fibrillation, persistent (HCC) 1 Occurrences starting 06/25/2021 until 06/25/2022 [facility] Work Phone: Comment on above: 1 Occurrences starti ng 06/25/2021 until 06/25/2022 End: 06-25-2023 ECG COMPLETE ECG COMPLETE ECG Routine Atrial fibrillation, persistent (HCC) 1 Occurrences starting 06/24/2022 until 06/25/2023 [facility] Work Phone: Comment on above: 1 Occurrences starti ng 06/24/2022 until 06/25/2023 ECG COMPLETE ECG COMPLETE ECG 06/05/2023 2:22 PM EDT [facility] End: 12-31-2022 Echocardiography ECHO Cardiology Routine Chronic diastolic heart failure (HCC) 1 Occurrences starting 12/31/2021 until 12/31/2022 [facility] Work Phone: Comment on above: 1 Occurrences starti ng 12/31/2021 until 12/31/2022 End: 06-04-2024 Echocardiography ECHO Cardiology Routine Chronic diastolic heart failure (HCC) 1 Occurrences starting 06/05/2023 until 06/04/2024 [facility] Work Phone: Comment on above: 1 Occurrences starti ng 06/05/2023 until 06/04/2024 Patient Education Felter Non Damian [facility] Work Phone: Patient referral [facility] Work Phone: [facility] Immunizations Immunization Date Immunization Notes Care Provider Jose perez 01-25-2022 influenza, high dose seasonal, preservative-free Declan Swanson Other [facility] Other 01-25-2022 influenza virus vaccine, unspecified formulation Ruben Denton MD Work Phone: [facility] 01-20-2021 COVID-19 Vaccine Moderna - Documentation Purposes Only Declan Swanson Other [facility] 12-29-2020 influenza virus vaccine, split virus (incl. purified surface antigen) Declan Swanson Other [place] Other 12-29-2020 influenza virus vaccine, unspecified formulation [facility] 06-01-2020 COVID-19 vaccine, fu ll dose (MODERNA) Ruben Denton MD Work Phone: [facility] 05-04-2020 COVID-19 vaccine, fu ll dose (MODERNA) uRben Denton MD Work Phone: [facility] 01-02-2019 influenza virus vaccine, split virus (incl. purified surface antigen) Declan Swanson Other [facility] Other 01-02-2019 influenza virus vaccine, unspecified formulation [facility] 12-01-2017 influenza virus vaccine, split virus (incl. purified surface antigen) Declan Swanson Other [facility] Other 12-01-2017 influenza virus vaccine, unspecified formulation [facility] 12-01-2017 Seasonal trivalent influenza vaccine, adjuvanted, preservative free Ruben Denton MD Work Phone: [facility] 01-08-2016 seasonal influenza, intradermal, preservative free Ruben Denton MD Work Phone: [facility] 12-10-2015 influenza virus vaccine, split virus (incl. purified surface antigen) Declan Swanson Other [facility] Other 12-10-2015 influenza virus vaccine, unspecified formulation [facility] 12-10-2015 influenza, high dose seasonal, preservative-free Ruben Denton MD Work Phone: [facility] 06-04-2015 pneumococcal conjuga te vaccine, 13 valent Declan Swanson Other [facility] 02-09-2015 influenza, injectabl e, quadrivalent, preservative free Rbuen Denton MD Work Phone: [facility] 11-08-2014 pneumococcal polysaccharide vaccine, 23 valent Ruben Denton MD Work Phone: [facility] 11-21-2013 tetanus and diphther ia toxoids, adsorbed, preservative free, for adult use (5 Lf of tetanus toxoid and 2 Lf of diphtheria toxoid) Declan Swanson Other [facility] 12-23-2012 tetanus and diphther ia toxoids, adsorbed, preservative free, for adult use (5 Lf of tetanus toxoid and 2 Lf of diphtheria toxoid) Declan Swanson Other [facility] 12-21-2011 pneumococcal polysaccharide vaccine, 23 valent Declan Swanson Other [facility] Payers Date Payer Category Payer Self-pay [id number] 2019 Unknown MMO MMO MEDICARE SUPPLEMENT [id number] 2019-Present [phone] [address] [place] [address] Indemnity [id number] 2019 Unknown MMO MMO MEDICARE SUPPLEMENT [id number] 2019-Present [phone] [address] [place] [address] Indemnity [id number] 2010 Medicare MEDICARE MEDICAR E A AND B [id number] 2010-Present [phone] [address] [address] [place] [address] Medicare [id number] 2010 Medicare MEDICARE MEDICAR E A AND B [id number] 2010-Present [phone] [place] [address] Medicare [id number] 1959 Medicare [id number] 1959 Unknown [id number] [id number] 1945 Unknown [id number] 2.16.840.1.476516.3.579.2.593 1945 Unknown [id number] 2.16.840.1.165105.3.579.2.593 1945 Unknown [id number] 2.16.840.1.691181.3.579.2.593 1945 Unknown [id number] 2.16.840.1.756298.3.579.2.593 1945 Unknown [id number] 2.16.840.1.728419.3.579.2.593 1945 Unknown [id number] 2.16.840.1.666192.3.579.2.593 1945 Unknown [id number] 2.16.840.1.124741.3.579.2.593 1945 Unknown [id number] 2.16.840.1.280753.3.579.2.593 1945 Unknown [id number] 2.16.840.1.922486.3.579.2.593 1945 Unknown [id number] 2.16.840.1.002320.3.579.2.593 1945 Unknown [id number] 2.16.840.1.124983.3.579.2.593 1945 Unknown [id number] 2.16.840.1.408082.3.579.2.593 1945 Unknown [id number] 2.16.840.1.497071.3.579.2.593 1945 Unknown [id number] 2.16.840.1.426262.3.579.2.593 1945 Unknown [id number] 2.16.840.1.653116.3.579.2.593 1945 Unknown [id number] 2.16.840.1.302128.3.579.2.593 1945 Unknown [id number] 2.16.840.1.584084.3.579.2.593 1945 Unknown [id number] 2.16.840.1.957950.3.579.2.593 1945 Unknown [id number] 2.16.840.1.445902.3.579.2.1259 1945 Unknown [id number] 2..840.1.742431.3.579.2.1259 Unknown [id number] 2.840.1.588245.[address] [facility] Health Claims [id number] Unknown [id number] 2.840.1.494723.3.579.2.531 Unknown [id number] 2.0.1.137419.3.579.2.531 Unknown [id number] 2.16.840.1.036487.3.579.2.531 Social History Date Type Detail Facility Start: 06-18-2013 End: 12-13-2022 Tobacco smoking status NHIS Ex-smoker [facility] End: 12-11-2012 History of tobacco use Current smoker [facility] End: 12-11-2012 History of tobacco use Cigar Smoker [facility] Start: 06-18-2013 End: 06-05-2023 Tobacco use and exposure Smokeless tobacco non-user [facility] Start: 09-18-2020 End: 07-04-2023 Alcohol intake Ex-drinker (finding) [facility] Start: 1945 Sex Assigned At Not on file [facility] Start: 06-15-2021 End: 12-31-2021 Exposure to SARS-CoV-2 (event) Not sure [facility] Work Phone: Start: 06-25-2021 End: 06-05-2023 Sex Assigned At [facility] Start: 1945 Sex Assigned At Male F [facility] Start: 06-25-2021 End: 06-05-2023 History of Social function [facility] PHQ2 Score 0 [facility] Goals Date Patient Goal Desired Activity /State Personal health goal Clinical Notes 04-21-2021 to 07-25-2023 Telephone Encounter - Bryan Dwyer - 07/25/2023 10:21 AM EDTTelephone Encounter - Bryan Dwyer - 07/25/2023 10:21 AM Shama Parada PA-C - 07/04/2023 10:00 AM EDTPatient Instructions Note Date & Type Note Facility 07-25-2023 Telephone encounter Note Documentation scanned into EP outside database Scanned INR results into Epic [facility] 07-25-2023 Miscellaneous Notes Documentation scanned into EP outside database Scanned INR results into Epic documented in this encounter [facility] 07-04-2023 Note HNO ID: [id number] Author: SHAMA IBANEZ PA-C Service: ? Author Type: Physician Letterset Press Set Up Operator Type: Progress Notes Filed: 07/04/2023 10:19 Note Text: [facility] [place] [facility] Department of Cardiovascular Medicine SECTION OF CARDIAC PACING and ELECTROPHYSIOLOGY OUTPATIENT VISIT DATE July 04, 2023 OUTPATIENT VISIT TYPE ESTABLISHED PRIMARY CARE PHYSICIAN: Declan Swanson ([place]) [address] [place] [address] CHIEF COMPLAINT: Cardiology follow up HISTORY OF PRESENT ILLNESS: Mr. Davis is a 78 year old male who presents today for follow-up visit. He is a patient of Dr Evans and Dr Denton's with history of persistent AF s/p PVAI 2019, chronic HFpEF, obesity (BMI 44), HLP, CAD, DM II, HTN. On EKG's last SR EKG was 06/2021; currently rate controlled. Managed on warfarin only for stroke protection. Has an updated echo scheduled in November Back pain has slowed him down some but still does usual housework and can navigate stairs. He just takes his time He denies chest pain, shortness of breath, orthopnea, cough, edema, palpitations, PND, lightheadedness or syncope. PAST CARDIAC HISTORY: See above PAST MEDICAL HISTORY Diagnosis Date Acute gastric ulcer Atrial fibrillation (HCC) CAD (coronary artery disease) Congestive heart failure (HCC) DM2 (diabetes mellitus, type 2) (HCC) ED (erectile dysfunction) HTN (hypertension) Left ureteral calculus Obstructive chronic bronchitis with exacerbation (HCC) COPD Perianal dermatitis Status post ablation of atrial fibrillation 10/23/2019 Tubular adenoma PAST SURGICAL HISTORY Procedure Laterality Date ANESTH OPEN/SURG ARTHRS TOTAL KNEE ARTHROPLASTY 2007 Right Knee ARTHRP KNE CONDYLEANDPLATU MEDIALANDLAT COMPARTMENTS 2001 Left Knee CARDIAC CATH 2009 CARDIAC CATH 06/16/2015 COLONOSCOPY OPEN CHONDROPLASTY W/ MICRO DRILLING 2005 PAST SURGICAL HISTORY OF 1974 Fistulotomy PAST SURGICAL HISTORY OF Partial Medial Menisectomy Bilateral Knee PAST SURGICAL HISTORY OF 1991 Acrominoplasty Right Shoulder PAST SURGICAL HISTORY OF Bilateral Club Foot Surgery PAST SURGICAL HISTORY OF 2008 Anthroscopy Left Shoulder PAST SURGICAL HISTORY OF 2010 Revision Left Knee PAST SURGICAL HISTORY OF minor hand surgery REPAIR UMBILICAL HERNIA 2007 ROTATOR CUFF REPAIR 1993 Left Shoulder ROTATOR CUFF REPAIR 1996 Right Shoulder SOCIAL HISTORY Social History Tobacco Use Smoking status: Former Types: Cigars Quit date: 12/11/2012 Years since quittin.5 Smokeless tobacco: Never Vaping Use Vaping Use: Never used Substance Use Topics Alcohol use: Not Currently Drug use: No FAMILY HISTORY Problem Relation Age of Onset Heart Mother Heart Father ALLERGIES: ALLERGIES No Known Allergies MEDICATIONS: warfarin (COUMADIN) 1 mg tablet Take 4 mg by mouth once daily. metFORMIN (GLUCOPHAGE) 500 mg tablet Take 500 mg by mouth daily with breakfast. furosemide (LASIX) 40 mg tablet Take 1 tablet by mouth once daily. COMPOUNDED PRESCRIPTION Skin cream - patient unsure of name. potassium chloride ER (K-DUR, KLOR-CON) 20 mEq tablet Take 1 tablet by mouth once daily. pravastatin (PRAVACHOL) 80 mg tablet Take 1 tablet by mouth daily at bedtime. ACETAMINOPHEN (TYLENOL 8 HOUR ORAL) Take by mouth as needed. 325 mg - 500 mg only as needed (not more than once per day) allopurinol 300 mg tablet Take 300 mg by mouth once daily. REVIEW OF SYSTEMS: + Findings in bold GENERAL: Negative for: Weight loss or gain, Fever or Chills, Weakness and Sleep difficulties. HEENT: Negative for: Headache, Impaired Vision, Glasses, Hearing Impairment, Ringing in Ears, Nosebleeds, Poor Dental Care, Bleeding Gums and Dentures. NECK: Negative for: Swelling, Pain, Stiffness RESPIRATORY: Negative for: Cough, Blood in Sputum, Shortness of breath, Wheezing, Apnea GASTROINTESTINAL: Negative for: Trouble swallowing, Heartburn, Change in bowel habits, Blood in stool, Dark black stools MUSCULOSKELETAL: Negtive for: Muscle or joint pain, stiffness, Joint swelling NEUROLOGIC/PSYCHIATRIC: Negative for: Weakness, Paralysis, Numbness, Tingling, Tremor, Nervousness or anxiety, Depressed mood, Memory loss SKIN: Negative for: Rash, Itching HEMATOLOGICAL/LYMPHATIC: Negative for: Easy bruising, Easy bleeding ENDOCRINE: Negative for: Heat or Cold Intolerance, Excessive Sweating, Frequent Urination, Frequent Thirst PHYSICAL EXAMINATION: BP 146/78 (BP Site: Right Arm, BP Position: Sitting, BP Cuff Size: Large Adult) Pulse 80 Ht 165.1 cm (5' 5 ) Wt 121.3 kg (267 lb 6.7 oz) BMI 44.50 kg/m? General: Well appearing, in no acute distress, speaking in complete sentences. Neck: No jugular venous distention, no carotid bruits, carotids have a normal upstroke, no palpable thyromegaly. Lungs: Clear to auscultation bilaterally, no wheezing or rhonchi (more content not included)... [facility] 07-04-2023 History of Present illness Narrative Images from the original note were not included. [facility] [place] [facility] Department of Cardiovascular Medicine SECTION OF CARDIAC PACING and ELECTROPHYSIOLOGY OUTPATIENT VISIT DATE July 04, 2023 OUTPATIENT VISIT TYPE ESTABLISHED PRIMARY CARE PHYSICIAN: Declan Swanson ([place]) [facility] [place] [address] CHIEF COMPLAINT: Cardiology follow up HISTORY OF PRESENT ILLNESS: Mr. Davis is a 78 year old male who presents today for follow-up visit. He is a patient of Dr Evans and Dr Denton's with history of persistent AF s/p PVAI 2019, chronic HFpEF, obesity (BMI 44), HLP, CAD, DM II, HTN. On EKG's last SR EKG was 06/2021; currently rate controlled. Managed on warfarin only for stroke protection. Has an updated echo scheduled in November Back pain has slowed him down some but still does usual housework and can navigate stairs. He just takes his time He denies chest pain, shortness of breath, orthopnea, cough, edema, palpitations, PND, lightheadedness or syncope. PAST CARDIAC HISTORY: See above PAST MEDICAL HISTORY Diagnosis Date Acute gastric ulcer Atrial fibrillation (HCC) CAD (coronary artery disease) Congestive heart failure (HCC) DM2 (diabetes mellitus, type 2) (HCC) ED (erectile dysfunction) HTN (hypertension) Left ureteral calculus Obstructive chronic bronchitis with exacerbation (HCC) COPD Perianal dermatitis Status post ablation of atrial fibrillation 10/23/2019 Tubular adenoma PAST SURGICAL HISTORY Procedure Laterality Date ANESTH OPEN/SURG ARTHRS TOTAL KNEE ARTHROPLASTY 2007 Right Knee ARTHRP KNE CONDYLE&PLATU MEDIAL&LAT COMPARTMENTS 2000 Left Knee CARDIAC CATH 2009 CARDIAC CATH 06/16/2015 COLONOSCOPY OPEN CHONDROPLASTY W/ MICRO DRILLING 2005 PAST SURGICAL HISTORY OF 1974 Fistulotomy PAST SURGICAL HISTORY OF Partial Medial Menisectomy Bilateral Knee PAST SURGICAL HISTORY OF 1991 Acrominoplasty Right Shoulder PAST SURGICAL HISTORY OF Bilateral Club Foot Surgery PAST SURGICAL HISTORY OF 2008 Anthroscopy Left Shoulder PAST SURGICAL HISTORY OF 2010 Revision Left Knee PAST SURGICAL HISTORY OF minor hand surgery REPAIR UMBILICAL HERNIA 2007 ROTATOR CUFF REPAIR 1993 Left Shoulder ROTATOR CUFF REPAIR 1996 Right Shoulder SOCIAL HISTORY Social History Tobacco Use Smoking status: Former Types: Cigars Quit date: 12/11/2012 Years since quittin.5 Smokeless tobacco: Never Vaping Use Vaping Use: Never used Substance Use Topics Alcohol use: Not Currently Drug use: No FAMILY HISTORY Problem Relation Age of Onset Heart Mother Heart Father ALLERGIES: ALLERGIES No Known Allergies MEDICATIONS: warfarin (COUMADIN) 1 mg tablet Take 4 mg by mouth once daily. metFORMIN (GLUCOPHAGE) 500 mg tablet Take 500 mg by mouth daily with breakfast. furosemide (LASIX) 40 mg tablet Take 1 tablet by mouth once daily. COMPOUNDED PRESCRIPTION Skin cream - patient unsure of name. potassium chloride ER (K-DUR, KLOR-CON) 20 mEq tablet Take 1 tablet by mouth once daily. pravastatin (PRAVACHOL) 80 mg tablet Take 1 tablet by mouth daily at bedtime. ACETAMINOPHEN (TYLENOL 8 HOUR ORAL) Take by mouth as needed. 325 mg - 500 mg only as needed (not more than once per day) allopurinol 300 mg tablet Take 300 mg by mouth once daily. REVIEW OF SYSTEMS: + Findings in bold GENERAL: Negative for: Weight loss or gain, Fever or Chills, Weakness and Sleep difficulties. HEENT: Negative for: Headache, Impaired Vision, Glasses, Hearing Impairment, Ringing in Ears, Nosebleeds, Poor Dental Care, Bleeding Gums and Dentures. NECK: Negative for: Swelling, Pain, Stiffness RESPIRATORY: Negative for: Cough, Blood in Sputum, Shortness of breath, Wheezing, Apnea GASTROINTESTINAL: Negative for: Trouble swallowing, Heartburn, Change in bowel habits, Blood in stool, Dark black stools MUSCULOSKELETAL: Negtive for: Muscle or joint pain, stiffness, Joint swelling NEUROLOGIC/PSYCHIATRIC: Negative for: Weakness, Paralysis, Numbness, Tingling, Tremor, Nervousness or anxiety, Depressed mood, Memory loss SKIN: Negative for: Rash, Itching HEMATOLOGICAL/LYMPHATIC: Negative for: Easy bruising, Easy bleeding ENDOCRINE: Negative for: Heat or Cold Intolerance, Excessive Sweating, Frequent Urination, Frequent Thirst PHYSICAL EXAMINATION: BP 146/78 (BP Site: Right Arm, BP Position: Sitting, BP Cuff Size: Large Adult) Pulse 80 Ht 165.1 cm (5' 5 ) Wt 121.3 kg (267 lb 6.7 oz) BMI 44.50 kg/m General: Well appearing, in no acute distress, speaking in complete sentences. Neck: No jugular venous distention, no carotid bruits, carotids have a normal upstroke, no palpable thyromegaly. Lungs: Clear to auscultation bilaterally, no wheezing or rhonchi. Heart: irregular rhythm, PMI not displaced, S1, S2 normal, no S3, no S4, no heaves, no rub and no murmur. Abdomen: Soft, nontender, bowel sounds normal, no palpable organomegaly, no bruits. Extremities: No peripheral edema . Grade 2/4 distal pulses bilaterally. Neuro: Oriented to person, place and time, alert, cooperative, gait coordinated. CARDIOVASCULAR MEDICINE TESTING: EK06/05/2023 Echo: 06/2022 - The left ventricle is normal in size. Left ventricular systolic function is normal. EF = 58 5% (2D biplane) Definity contrast used for endocardial border detection. - The right ventricle is normal in size. Right ventricular systolic function is normal. - The visualized aorta is borderline dilated with a maximal dimension of 4.0 cm. - Exam was compared with the prior echocardiographic exam performed on 03/03/2020. There is no significant change. There were no tests performed for review. IMPRESSION: Mr. Davis is a 78 year old male with persistent AF s/p PVAI 2019, chronic HFpEF, obesity (BMI 44), HLP, CAD, DM II, HTN. Here for an annual follow-up in place of seeing Dr. Denton. He has been in atrial fibrillation persistently for the past 2 years but he is rate controlled present off of AV scott blocking agents. He is anticoagulated with warfarin and his recent INRs sent and are all therapeutic. Noted no bleeding. PLAN AND RECOMMENDATIONS: -Echo and follow-up with Dr. Evans scheduled -Continue warfarin -Will have him set up to see Dr. Denton in about a year I personally interviewed, confirmed and edited the above information as obtained by others. CONTACT INFORMATION: Shama Ibanez PA-C I spent 35 minutes in the visit, with more than 50% of the total [id number] time of the visit in counseling / coordination of care. documented in this encounter [facility] 07-04-2023 Instructions Shama Ibanez PA-C - 07/04/2023 9:58 AM EDT - No changes to medications today - Will have you see Dr Evans with echo as scheduled - Will have you see Dr Denton in 1 year - Call us sooner with any questions or concerns Shama Ibanez PA-C documented in this encounter [facility] 06-27-2023 Miscellaneous Notes Documentation scanned into EP outside database Scanned INR results into [employer] documented in this encounter [facility] 06-05-2023 Note HNO ID: [id number] Author: VENKAT EVANS MD Service: ? Author Type: Physician Type: Progress Notes Filed: 06/05/2023 14:25 Note Text: Referring Physician: No referring provider defined for this encounter. Primary Care Physician: DO Jorge Unger Cristopher is a 78 year old male that presents today for followup of Chronic diastolic CHF P atrial fibrillation : s/p PVI On coumadin Weight : lowest ; had improved Does not feel HR Was in atrial fibrillation last visit and last echo 2022 No meds for control of HR [ controlled on no meds Limited by back issues and slowed down because of this No angina Non obs cad by cath in the psat ASSESSMENT/PLAN: 1. Chronic diastolic heart failure (HCC) - ICD9: 428.32, ICD10: I50.32 (primary diagnosis) Stable on lasix Sglt 2 inhibitor : cost issue ; Stable Weight is lower 2. Atrial fibrillation, persistent (HCC) - ICD9: 427.31, ICD10: I48.19 Persistent Rate controlled Echo prior ot next visit 3. Obesity, Class III, 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) - ICD9: 278.01, ICD10: E66.01 Improved 4. Mixed hyperlipidemia - ICD9: 272.2, ICD10: E78.2 - Controlled - Counseled on healthy diet and regular exercise Venkat Evans MD Current Medications: Current Medications 06/05/2023 DIABETES THERAPIES Medication Dosage Pharm Subclass metFORMIN (GLUCOPHAGE) 500 mg tablet Take 500 mg by mouth daily with breakfast. Insulin Response Enhancers - Biguanides CARDIOVASCULAR Medication Dosage Pharm Subclass pravastatin (PRAVACHOL) 80 mg tablet Take 1 tablet by mouth daily at bedtime. Antihyperlipidemic - HMG CoA Reductase Inhibitors (statins) DIURETICS Medication Dosage Pharm Subclass furosemide (LASIX) 40 mg tablet Take 1 tablet by mouth once daily. Diuretic - Loop ANTICOAGULANTS Medication Dosage Pharm Subclass warfarin (COUMADIN) 1 mg tablet Take 4 mg by mouth once daily. Anticoagulants - Coumarin OTHER Medication Dosage Pharm Subclass ACETAMINOPHEN (TYLENOL 8 HOUR ORAL) Take by mouth as needed. 325 mg - 500 mg only as needed (not more than once per day) Analgesic or Antipyretic Non-Opioid allopurinol 300 mg tablet Take 300 mg by mouth once daily. Hyperuricemia Therapy - Xanthine Oxidase Inhibitors COMPOUNDED PRESCRIPTION Skin cream - patient unsure of name. Medical Supply, [employer] Superset potassium chloride ER (K-DUR, KLOR-CON) 20 mEq tablet Take 1 tablet by mouth once daily. Minerals and Electrolytes - Potassium, Oral PHYSICAL EXAMINATION: Vital Signs: Blood Pressure 124/78 Pulse 74 Weight 120.2 kg (264 lb 15.9 oz) Body Mass Index 44.10 kg/m? Body mass index is 44.1 kg/m?. GENERAL: Alert, oriented., Well appearing. No jaundice, anemia, clubbing, or cyanosis. HEENT: no lymphadenopathy. NECK: no JVD, No masses, or thyromegaly. Good carotid upstrokes. no carotid bruit. No lymphadenopathy. CARDIAC: irreg no gallop CHEST: Chest clear to auscultation. ABDOMEN: Soft, nontender, with no obvious organomegaly or masses. No epigastric bruit. EDEMA: No edema PERIPHERAL PULSES: 2+ SKIN: warm peripheries, no rash. NEURO: no focal neurological deficit ECG today: see epic result Allergies: ALLERGIES No Known Allergies Social History: TOBACCO: see epic ALCOHOL: see epic ROS: Card: See present history. Pulm:No cough or sputum production Gastro:no bowel changes. GenUr:no urinary symptoms. Endo:no chronic fatigue, significant weight loss/gain, heat/cold intolerance. Neuro:no focal weakness, focal sensory loss, headache, visual changes, seizure activity, ataxia, speech/language loss. Rheum:no joint swelling, back pain, knee pain, hip pain, or neck pain. Infect:no fevers, chills, rigors or night sweats. Skin:no rash Heme:no bruising LIPIDS: Triglyceride (mg/dL) Date Value 09/18/2020 83 Cholesterol, Total (mg/dL) Date Value 09/18/2020 143 HDL Cholesterol (mg/dL) Date Value 09/18/2020 48 LDL Cholesterol (mg/dL) Date Value 09/18/2020 78 Venkat Evans MD [facility] 06-05-2023 History of Present illness Narrative Referring Physician: No referring provider defined for this encounter. Primary Care Physician: DO Jorge Unger Cristopher is a 78 year old male that presents today for followup of Chronic diastolic CHF P atrial fibrillation : s/p PVI On coumadin Weight : lowest ; had improved Does not feel HR Was in atrial fibrillation last visit and last echo 2022 No meds for control of HR [ controlled on no meds Limited by back issues and slowed down because of this No angina \ Non obs cad by cath in the psat ASSESSMENT/PLAN: 1. Chronic diastolic heart failure (HCC) - ICD9: 428.32, ICD10: I50.32 (primary diagnosis) Stable on lasix Sglt 2 inhibitor : cost issue ; Stable Weight is lower 2. Atrial fibrillation, persistent (HCC) - ICD9: 427.31, ICD10: I48.19 Persistent Rate controlled Echo prior ot next visit 3. Obesity, Class III, 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) - ICD9: 278.01, ICD10: E66.01 Improved 4. Mixed hyperlipidemia - ICD9: 272.2, ICD10: E78.2 - Controlled - Counseled on healthy diet and regular exercise Venkat Evans MD Current Medications: Current Medications 06/05/2023 DIABETES THERAPIES Medication Dosage Pharm Subclass metFORMIN (GLUCOPHAGE) 500 mg tablet Take 500 mg by mouth daily with breakfast. Insulin Response Enhancers - Biguanides CARDIOVASCULAR Medication Dosage Pharm Subclass pravastatin (PRAVACHOL) 80 mg tablet Take 1 tablet by mouth daily at bedtime. Antihyperlipidemic - HMG CoA Reductase Inhibitors (statins) DIURETICS Medication Dosage Pharm Subclass furosemide (LASIX) 40 mg tablet Take 1 tablet by mouth once daily. Diuretic - Loop ANTICOAGULANTS Medication Dosage Pharm Subclass warfarin (COUMADIN) 1 mg tablet Take 4 mg by mouth once daily. Anticoagulants - Coumarin OTHER Medication Dosage Pharm Subclass ACETAMINOPHEN (TYLENOL 8 HOUR ORAL) Take by mouth as needed. 325 mg - 500 mg only as needed (not more than once per day) Analgesic or Antipyretic Non-Opioid allopurinol 300 mg tablet Take 300 mg by mouth once daily. Hyperuricemia Therapy - Xanthine Oxidase Inhibitors COMPOUNDED PRESCRIPTION Skin cream - patient unsure of name. Medical Supply, FDB Superset potassium chloride ER (K-DUR, KLOR-CON) 20 mEq tablet Take 1 tablet by mouth once daily. Minerals and Electrolytes - Potassium, Oral PHYSICAL EXAMINATION: Vital Signs: Blood Pressure 124/78 Pulse 74 Weight 120.2 kg (264 lb 15.9 oz) Body Mass Index 44.10 kg/m Body mass index is 44.1 kg/m . GENERAL: Alert, oriented., Well appearing. No jaundice, anemia, clubbing, or cyanosis. HEENT: no lymphadenopathy. NECK: no JVD, No masses, or thyromegaly. Good carotid upstrokes. no carotid bruit. No lymphadenopathy. CARDIAC: irreg no gallop CHEST: Chest clear to auscultation. ABDOMEN: Soft, nontender, with no obvious organomegaly or masses. No epigastric bruit. EDEMA: No edema PERIPHERAL PULSES: 2+ SKIN: warm peripheries, no rash. NEURO: no focal neurological deficit ECG today: see epic result Allergies: ALLERGIES No Known Allergies Social History: TOBACCO: see epic ALCOHOL: see epic ROS: Card: See present history. Pulm:No cough or sputum production Gastro:no bowel changes. GenUr:no urinary symptoms. Endo:no chronic fatigue, significant weight loss/gain, heat/cold intolerance. Neuro:no focal weakness, focal sensory loss, headache, visual changes, seizure activity, ataxia, speech/language loss. Rheum:no joint swelling, back pain, knee pain, hip pain, or neck pain. Infect:no fevers, chills, rigors or night sweats. Skin:no rash Heme:no bruising LIPIDS: Triglyceride (mg/dL) Date Value 09/18/2020 83 Cholesterol, Total (mg/dL) Date Value 09/18/2020 143 HDL Cholesterol (mg/dL) Date Value 09/18/2020 48 LDL Cholesterol (mg/dL) Date Value 09/18/2020 78 Venkat Evans MD documented in this encounter [facility] 05-30-2023 Miscellaneous Notes Documentation scanned into EP outside database Scanned into [facility] documented in this encounter [facility] 05-02-2023 Miscellaneous Notes Documentation scanned into EP outside database documented in this encounter [facility] 04-06-2023 Miscellaneous Notes Outside medical records (INR report 04/04/2023) scanned into [facility] and shared [address]. documented in this encounter [facility] 03-23-2023 Evaluation note Encounter Date Diagnosis Assessment Notes Mar, Contusion of scalp, initial encounter (ICD-10 - S00.03XA) Denies headache or dizziness. Tylenol as needed. Mar, Laceration of scalp, initial encounter (ICD-10 - S01.01XA) 5 sutures removed. Laceration well healed. No bleeding or drainage. Call if notice extra suture under scabbed area Mar, Laceration of left lower extremity, initial encounter (ICD-10 - S81.812A) Continue w/ cleansing daily, mupirocin. Call w/ increased pain, swelling or drainage Mar, Cellulitis of left lower extremity (ICD-10 - L03.116) No further antibiotics necessary Call w/ increased tenderness [facility] Other [phone] Miscellaneous Notes* Telephone Encounter - Suman Garvin - 02/07/2023 9:31 AM EST Outside medical records (INR report 02/07/2023) scanned into [facility] and [address] [facility] Miscellaneous Notes* Telephone Encounter - Suman Garvin - 01/11/2023 7:24 AM EDT Outside medical records (INR Report 01/10/2023) scanned into [address] [facility] Miscellaneous Notes* Telephone Encounter - Suman Garvin - 01/05/2023 6:48 AM EDT Images from the original note were not included. Outside medical records (INR report 12/27/2022) scanned into [address] documented [facility] encounterC[facility] Evaluation note* Encounter Date Diagnosis Assessment Notes Treatment Notes Treatment Clinical Notes Dec, Odynophagia (ICD-10 - R13.10) Gargle w/ salt water, cold liquids, Tylenol as needed. Dec, Acute bronchitis due to other specified organisms (ICD-10 - J20.8) Instructed to use Robitussin or Mucinex for cough, saline or Flonase NS for congestion, Tylenol for pain and fever. Continue Zpak Dec, Controlled type 2 diabetes mellitus with hyperglycemia, without long-term current use of insulin (ICD-10 - E11.65) Healthy diet. Prednisone will increase BS but no change in treatment is necessary [facility] 10-23-2023 Evaluation note* Encounter Date Diagnosis Assessment Notes Treatment Notes Treatment Clinical Notes Dec, Acute bronchitis due to other specified organisms (ICD-10 - J20.8) Instructed to use Robitussin or Mucinex for cough, saline or Flonase NS for congestion, Tylenol for pain and fever. Dec, Type 2 diabetes mellitus with diabetic polyneuropathy, without long-term current use of insulin (ICD-10 - E11.42) Healthy diet and rest. Monitor BS but no adjustment in treatment necessary [facility] 10-13-2023 Miscellaneous Notes* Telephone Encounter - Bobbi Sahu - 12/23/2022 7:48 AM EDT Patient records received via electronic fax. Uploaded to [employer]. INR 12.20.22 Bobbi Sahu documented [facility]* Encounter Date Diagnosis Assessment Notes Treatment Notes Treatment Clinical Notes Dec, Lumbar degenerative disc disease (ICD-10 - M51.36) Dec, Other spondylosis with radiculopathy, lumbar region (ICD-10 - M47.26) Patient denies any complaints of pain at this time following a recent lumbar epidural steroid injection. We will continue to monitor his symptoms in this region and proceed with future treatment to the area as needed. We will follow up with the patient in three months, sooner if needed. Anatomy of spine discussed in detail with patient in regards to patients condition. Overall, patient believes their pain is reasonably well controlled and he is in agreement with our treatment plan. Dec, Other chronic pain (ICD-10 - G89.29) Dec, Other Above note written by Christian Damon MA, [employer]. Edited and approved by Dr. Ruben Celis MD. [facility] Other 10-04-2023 Evaluation note* Encounter Date Diagnosis Assessment Notes Treatment Notes Treatment Clinical Notes Dec, ASHD (arteriosclerotic heart disease) (ICD-10 - I25.10) ECHOCARDIOGRAM - 06/2022 - EF=58 ? 5% (2D biplane) - The right ventricle normal size, function. - aorta is borderline dilated 4.0 cm. This patient is stable without activity related CP, dyspnea or lightheadedness. They are instructed to continue exercise and AHA diet plan. Continue secondary prevention measures. Dec, Persistent atrial fibrillation (ICD-10 - I48.19) This patient is in NSR or rate controlled. This patient is anticoagulated to prevent thromboembolic events. They are maintaining regular scheduled appts with their spare fixer. No bleeding complications Dec, Type 2 diabetes mellitus with hyperglycemia, without long-term current use of insulin (ICD-10 - E11.65) This patient is following a comprehensive diabetic treatment plan. They are checking their feet daily for calluses and nonhealing ulcers. They are being seen for yearly dilated eye examinations. Goals: SBP less than 130, LDL less than 100, FBS less than 140, A1C less than 7%. They are checking their BS daily, will which are reviewed at the office visit. Continue regular routine monitoring of A1C,] Microalbumin, Dilated eye exam and Foot exam Dec, Type 2 diabetes mellitus with diabetic peripheral angiopathy without gangrene, without long-term current use of insulin (ICD-10 - E11.51) Walk daily until pain. Continue Statin and ASA therapy Inspect feet daily for cuts or ulcerations. Dec, Type 2 diabetes mellitus with diabetic polyneuropathy, without long-term current use of insulin (ICD-10 - E11.42) Inspect feet daily for cuts and calluses.Recommend diabetic shoes and inserts to prevent callus formation.Fall precautions. Dec, CHRISTIAN (obstructive sleep apnea) (ICD-10 - G47.33) This patient is aware of the benefits associated with CHRISTIAN: With continued use, the patient reduces the risk for AK, CVA, HTN, cardiac dysrhythmias and sudden cardiac deaths.The patient is also aware of the association between CHRISTIAN and morning headaches, daytime somnolence, fatigue and obesity Unable to tolerate treatment, noncompliant Aware this would likely prevent moravian of NSR Dec, Chronic venous insufficiency of lower extremity (ICD-10 - I87.2) Avoid salt and elevate lower extremities, support stockings, inspect legs and feet daily for blisters and ulcerations. Dec, Hyperlipidemia type II (ICD-10 - E78.01) Instructed on diet and exercise with continued statin therapy.Discussed the beneficial effects of lowering cholesterol in reducing the risk for cerebrovascular and cardiovascular disease. Dec, Lumbar spondylosis (ICD-10 - M47.816) The patient is instructed to avoid bending, twisting or lifting. They are to use intermittent heat and ice as needed. They may schedule a massage or gentle manipulation. They may safely use Tylenol as needed. s/p TATIANA yesterday w/ benefit [facility] Other 09-14-2023 Evaluation note* Encounter Date Diagnosis Assessment Notes Treatment Notes Treatment Clinical Notes Nov, Arthritis of lumbosacral spine (ICD-10 - M47.817) [facility] 08-25-2023 Evaluation note* Encounter Date Diagnosis Assessment Notes Treatment Notes Treatment Clinical Notes Oct, Superficial ulcer of lower extremity (ICD-10 - L97.909) Removed fluid from blister Instructed to cleanse w/ soap and water, apply Bactroban oint and guaze. Begin prophylactic antibiotic Oct, Chronic venous insufficiency of lower extremity (ICD-10 - I87.2) Avoid salt and elevate lower extremities, support stockings, inspect legs and feet daily for blisters and ulcerations. Oct, Type 2 diabetes mellitus with diabetic peripheral angiopathy without gangrene, without long-term current use of insulin (ICD-10 - E11.51) This patient is following a comprehensive diabetic treatment plan. They are checking their feet daily for calluses and nonhealing ulcers. They are being seen for yearly dilated eye examinations. Goals: SBP less than 130, LDL less than 100, FBS less than 140, AC and A1C less than 7%. They are checking their BS daily, will which are reviewed at the office visit. Continue regular routine monitoring of A1C,] Microalbumin, Dilated eye exam and Foot exam [facility] 08-18-2023 Miscellaneous Notes* Telephone Encounter - Bobbi Sahu - 10/28/2022 3:24 PM EDT Patient records received via electronic fax. Uploaded to [employer]. INR 8..23 Bobbi Sahu documented in this encounterC[facility]* Encounter Date Diagnosis Assessment Notes Treatment Notes Treatment Clinical Notes Oct, Lumbar degenerative disc disease (ICD-10 - M51.36) Oct, Other spondylosis with radiculopathy, lumbar region (ICD-10 - M47.26) Patients primary complaint today is low lumbar pain radiating into the lateral and anterior aspect of his right lower extremity, extending into his foot. Given his failure of conservative treatment as well as progressing symptoms, I will order an MRI of his lumbar spine for further evaluation. Pending the results, we can consider a referral to neurosurgery vs a lumbar epidural steroid injection. In the meantime, patient will reach out to his cardiology office to discuss the possibility of stopping Coumadin if needed. We will follow up with the patient once we obtain his MRI results. Anatomy of spine discussed in detail with patient in regards to patients condition. Oct, Other chronic pain (ICD-10 - G89.29) Oct, Other Above note writ ten by Christian Damon MA, Job Tr[employer]. Edited and approved by Dr. Ruben Celis MD. [facility] 08-03-2023 Miscellaneous Notes* Telephone Encounter - Bobbi Sahu - 10/13/2022 3:54 PM EDT Patient records received via electronic fax. Uploaded to [employer]. INR 8..23 Bobbi Sahu documented in this encounterC[facility] Evaluation [facility]* Encounter Date Diagnosis Assessment Notes Treatment Notes Treatment Clinical Notes Oct, Blister of left lower extremity without infection, initial encounter (ICD-10 - S80.822A) Much improved, keep clean and dry. Mupirocin on open areas only. Protect from irritation/friction Oct, Chronic venous insufficiency of lower extremity (ICD-10 - I87.2) Avoid salt and elevate lower extremities, support stockings, inspect legs and feet daily for blisters and ulcerations. Oct, Type 2 diabetes mellitus with hyperglycemia, without long-term current use of insulin (ICD-10 - E11.65) This patient is following a comprehensive diabetic treatment plan. They are checking their feet daily for calluses and nonhealing ulcers. They are being seen for yearly dilated eye examinations. Goals: SBP less than 130, LDL less than 100, FBS less than 140, AC and A1C less than 7%. They are checking their BS daily, will which are reviewed at the office visit. Continue regular routine monitoring of A1C,] Microalbumin, Dilated eye exam and Foot exam [facility] 08-02-2023 Evaluation note* Encounter Date Diagnosis Assessment Notes Treatment Notes Treatment Clinical Notes Oct, History of bilateral knee arthroplasty (ICD-10 - Z96.653) Oct, Pain in right hip (ICD-10 - M25.551) Oct, Pain in left hip (ICD-10 - M25.552) Oct, Other We discussed to day that overall his knee x-rays look the same as I did at his last visit a year ago. We also discussed that he has hip arthritis in both of his hips but I think the majority of his symptoms are originating from his back. He already sees Dr. Celis for back injections. I recommended that he do this again. If in the future he does not get relief from the right side from back injections then I would definitely recommend right hip intra-articular steroid injection. Patient to follow-up with me on a as needed basis. [facility] 07-07-2023 Miscellaneous Notes* Telephone Encounter - Suman Garvin - 09/16/2022 7:48 AM EDT Images from the original note were not included. Outside medical records (INR report) scanned into [employer]. [place] [id number] Evaluation note* Encounter Date Diagnosis Assessment Notes Treatment Notes Treatment Clinical Notes Sep, Blister of left lower extremity without infection, initial encounter (ICD-10 - S80.822A) Keep clean Apply Bactroban daily Wrap if seeping. Sep, Chronic venous insufficiency of lower extremity (ICD-10 - I87.2) Avoid salt and elevate lower extremities, support stockings, inspect legs and feet daily for blisters and ulcerations. Sep, Type 2 diabetes mellitus with hyperglycemia, without long-term current use of insulin (ICD-10 - E11.65) This patient is following a comprehensive diabetic treatment plan. They are checking their feet daily for calluses and nonhealing ulcers. They are being seen for yearly dilated eye examinations. Goals: SBP less than 130, LDL less than 100, FBS less than 140, AC and A1C less than 7%. They are checking their BS daily, will which are reviewed at the office visit. Continue regular routine monitoring of A1C,] Microalbumin, Dilated eye exam and Foot exam [facility] 06-28-2023 Miscellaneous Notes* Telephone Encounter - Morales Huynh MA - 09/07/2022 11:30 AM EDT Received lab results from [facility]. No upcoming appts. Sent for scanning. documented in this encounterC[facility]06[facility] Miscellaneous Notes* Telephone Encounter - Bobbi Sahu - 09/01/2022 2:39 PM EDT Patient records received via electronic fax. Uploaded to [email or web address] Bobbi Sahu documented in this [facility]06-06-[facility] Evaluation note* Encounter Date Diagnosis Assessment Notes Treatment Notes Treatment Clinical Notes Aug, Medicare annual wellness visit, subsequent (ICD-10 - Z00.00) Personalized health advice was given to the beneficiary including a written plan for screenings discussed and provided. Advanced care planning reviewed and/or information given as requested. Additional counseling was provided here today in regards to, [ ]. The above visit was performed by [ ], under direct supervision of [ ]. Document reviewed and amended by provider signed below. Aug, ASHD (arteriosclerotic heart disease) (ICD-10 - I25.10) ECHOCARDIOGRAM - 06/2022 - EF=58 ? 5% (2D biplane) - The right ventricle normal size, function. - aorta is borderline dilated 4.0 cm. This patient is stable without activity related CP, dyspnea or lightheadedness. They are instructed to continue exercise and AHA diet plan. Aug, Paroxysmal atrial fibrillation (ICD-10 - I48.0) ECHOCARDIOGRAM - 06/2022 - EF=58 ? 5% (2D biplane) - The right ventricle normal size, function. - aorta is borderline dilated 4.0 cm. This patient is in NSR or rate controlled. This patient is anticoagulated to prevent thromboembolic events. They are maintaining regular scheduled appts with their spare fixer. Aug, Pulmonary nodule, right (ICD-10 - R91.1) CT: 12mm RUL, 11mm RLL - 2018 (stable since 2016) CT: 14mm R - 12/2019, PET/CT: 14mm Right - 12/2019 CT: 15mm R - 04/2020 CT: 13mm R - 10/2020 CT: 11.6mm R - 09/[address] chest for surveillance this summerAug, Controlled type 2 diabetes mellitus with hyperglycemia, without long-term current use of insulin (ICD-10 - E11.65) This patient is following a comprehensive diabetic treatment plan. They are checking their feet daily for calluses and nonhealing ulcers. They are being seen for yearly dilated eye examinations. Goals: SBP less than 130, LDL less than 100, FBS less than 140, AC and A1C less than 7%. They are checking their BS daily, will which are reviewed at the office visit. Continue regular routine monitoring of A1C,] Microalbumin, Dilated eye exam and Foot exam Aug, Type 2 diabetes mellitus with diabetic polyneuropathy, without long-term current use of insulin (ICD-10 - E11.42) Inspect feet daily for cuts and calluses.Recommend diabetic shoes and inserts to prevent callus formation.Fall precautions. Aug, CHRISTIAN (obstructive sleep apnea) (ICD-10 - G47.33) This patient is aware of the benefits associated with CHRISTIAN: With continued use, the patient reduces the risk for AK, CVA, HTN, cardiac dysrhythmias and sudden cardiac deaths.The patient is also aware of the association between CHRISTIAN and morning headaches, daytime somnolence, fatigue and obesity, which also has been improved with continued use.The patient is compliant with treatment, wearing the equipment every night for greater than 4 hours.The patient is instructed to continue use of the CPAP for CHRISTIAN treatment. Aug, Chronic venous insufficiency (ICD-10 - I87.2) Avoid salt and elevate lower extremities, support stockings, inspect legs and feet daily for blisters and ulcerations. Aug, Hyperlipidemia type II (ICD-10 - E78.01) Instructed on diet and exercise with continued statin therapy.Discussed the beneficial effects of lowering cholesterol in reducing the risk for cerebrovascular and cardiovascular disease. Aug, Screening PSA (prostate specific antigen) (ICD-10 - Z12.5) Continue yearly PSA Aug, High risk medication use (ICD-10 - Z79.899) [facility] 05-11-2023 Miscellaneous Notes* Telephone Encounter - Bobbi Sahu - 07/21/2022 12:00 PM EDT Patient records received via electronic fax. Uploaded to [employer]. INR 5.11.23 Bobbi Sahu documented in this encounterC[facility] Miscellaneous Notes* Telephone Encounter - Kayla Ford LPN - 07/14/2022 3:17 PM EDT Called patient identified by name and date aware of results . Patient stated he will make a follow up appointment in December Kayla Ford LPN * Telephone Encounter - Kayla Ford LPN - 07/14/2022 3:16 PM EDT ----- Message from Venkat Evans V, MD sent at 07/13/2022 1:52 PM EDT ----- Echo ef normal Schedule followup this year with me documented in this encounterC[facility]04-[facility]23 Miscellaneous Notes* Telephone Encounter - Chiquita Soares RN - 06/27/2022 2:55 PM EDT Spoke to patient per MD request. Per Dr Denton: Can you call him and let him know I got his ECG printed out the way I wanted, and I do think he was in atrial fib on Monday at [place]? Tell him we are not changing anything now, but I wanted to follow up with him about this. Thanks TD Chiquita Soares RN documented in this encounterC[facility]04-17-2023 Evaluation note* Encounter Date Diagnosis Assessment Notes Treatment Notes Treatment Clinical Notes Jun, Paroxysmal atrial fibrillation (ICD-10 - I48.0) ECHOCARDIOGRAM - 06/2022 - EF = 58 ? 5% (2D biplane) - The right ventricle normal size, function. - aorta is borderline dilated 4.0 cm. Jun, ASHD (arteriosclerotic heart disease) (ICD-10 - I25.10) ECHOCARDIOGRAM - 06/2022 - EF = 58 ? 5% (2D biplane) - The right ventricle normal size, function. - aorta is borderline dilated 4.0 cm. [facility] 04-14-2023 History of Present illness Narrative* Ruben Denton MD - 06/24/2022 2:45 PM EDT HISTORY OF PRESENT ILLNESS The above relevant present and past medical Hx was verified and the exam findings were confirmed with additional exam findings added/clarified and/or corrected in my exam below. Additional Hx/summaryis as follows: F/U for persistent AF. He reports occasional AF Sx. These Sx are chiefly a decrease in energy level. He has no specific arrhythmia Sx. He is most limited by his back issues. He thinks when he has AF it lasts around 1-2 hours ACTIVE PROBLEM LIST Christian (Obstructive Sleep Apnea) Htn (Hypertension) Dyslipidemia Atrial Fibrillation (Hcc) Atherosclerosis of [place] Coronary Artery of [place] Heart Without Angina Pectoris Diabetes Mellitus Type 2, Controlled, Without Complications (Hcc) Atrial Fibrillation, Persistent (Hcc) Paroxysmal Atrial Fibrillation (Hcc) Paroxysmal Atrial Flutter (Hcc) Obesity, Class III, BMI >= 40 FAMILY HISTORY Problem Relation Age of Onset Heart Mother Heart Father Social History Tobacco Use Smoking status: Former Types: Cigars Quit date: 12/11/2012 Years since quittin.5 Smokeless tobacco: Never Vaping Use Vaping Use: Never used Substance Use Topics Alcohol use: Not Currently Drug use: No ROS. Relevant issues listed in the HPI. Otherwise: Constitutional: - Negative Neuro: - Negative Psych: - Negative HEENT: - Negative Endo: - Negative CV: See HPI Pulm: - Negative GI: - Negative : - Negative MSK: - Negative Derm: - Negative Heme: - Negative Cardiac meds reviewed. Meds and allergies were reviewed/updated in EPIC. General - Well-developed, obese, no acute distress. HEENT - Normocephalic, atraumatic. Neck -Supple, no JVD, no bruits, no thyromegaly. Heart - Mildly irregular, no murmur. Lungs - CTA bilaterally. Abdomen - Positive bowel sounds, no bruit, no organomegaly, no masses. Back - Non-tender. Extremities - No edema. Normal pulses. Neuro - Alert and oriented to person, place, time. ECG today in the office reviewed. Baseline artifact. Irregular. Atrial activity is difficult to discern. IMPRESSION: 1. Persistent atrial fibrillation, status post ablation 2. Coronary artery disease 3. Essential hypertension 4. BMI 44 5. Obstructive sleep apnea 6. Type 2 diabetes PLAN: Mr. Davis returns today with his . His EKG shows an irregular rhythm. The atrial activity is difficult to see which is common with him. Because of some artifact it is difficult to determine if hehas P waves present. They are typically visible only in some of the precordial leads. I have requested to get his EKG printed and a twelve-lead rhythm strip format which will allow for better discernment of the atrial activity. The EKG lab is going to provide me with this. Regardless, at this stagehe is content with his current management. We discussed the possibility of redo ablation in the event that he would be found to have persistent recurrent atrial fibrillation. At this time he is not interested in redo ablation. He states that he thinks that the arrhythmia is paroxysmal and that usually only lasts 1 to 2 hours when it occurs. He has to rest more during this time but is otherwise active and without limits. We reviewed the possibility of using antiarrhythmic drugs such as dofetilide in the future. We will continue his current regimen. I like to see him back in about 6 to 8 months. Ruben Denton MD CC - DO Venkat Unger MD This clinical note has been produced using speech recognition software and may contain errors related to that system including grammar, punctuation, spelling, gender and words and phrases that may beinappropriate. documented in this encounterC[facility]04-13-2023 Miscellaneous Notes* Telephone Encounter - Bobbi Sahu - 06/23/2022 11:30 AM EDT Patient records received via electronic fax. Uploaded to [employer]. INR 4.13.23 Bobbi Sahu documented in this encounterC[facility] Clinic [facility]03-17-2023 Miscellaneous Notes* Telephone Encounter - Bobbi Sahu - 05/27/2022 9:01 AM EDT Patient records received via electronic fax. Uploaded to [employer] INR RESULTS Bobbi Sahu documented in this [facility]03-06-2023 Evaluation note* Encounter Date Diagnosis Assessment Notes Treatment Notes Treatment Clinical Notes May, Type 2 diabetes mellitus with hyperglycemia, without long-term current use of insulin (ICD-10 - E11.65) This patient is following a comprehensive diabetic treatment plan. They are checking their feet daily for calluses and nonhealing ulcers. They are being seen for yearly dilated eye examinations. Goals: SBP less than 130, LDL less than 100, FBS less than 140, AC and A1C less than 7%. They are checking their BS daily, will which are reviewed at the office visit. May, ASHD (arteriosclerotic heart disease) (ICD-10 - I25.10) This patient is stable without activity related CP, dyspnea or lightheadedness. They are instructed to continue exercise and AHA diet plan. May, Type 2 diabetes mellitus with diabetic polyneuropathy, without long-term current use of insulin (ICD-10 - E11.42) Inspect feet daily for cuts and calluses.Recommend diabetic shoes and inserts to prevent callus formation.Fall precautions. May, Paroxysmal atrial fibrillation (ICD-10 - I48.0) This patient is in NSR or rate controlled. This patient is anticoagulated to prevent thromboembolic events. They are maintaining regular scheduled appts with their spare fixer. May, CHRISTIAN (obstructive sleep apnea) (ICD-10 - G47.33) Noncompliant w/ treatment despite discussion of advantages. Contributes to episodes of AF. Encourage weight loss May, Hyperlipidemia type II (ICD-10 - E78.01) Diet and exercise with continued statin therapy. May, Chronic bronchitis, simple (ICD-10 - J41.0) Mucinex as needed May, Chronic venous insufficiency (ICD-10 - I87.2) May, Pulmonary nodule, right (ICD-10 - R91.1) CT: 12mm RUL, 11mm RLL - 2018 (stable since 2016) CT: 14mm R - 12/2019, PET/CT: 14mm Right - 12/2019 CT: 15mm R - 04/2020 CT: 13mm R - 10/2020 CT: 11.6mm R - 09/2021 Surveillance completed past 2 years. No further screening required. [facility] Other 01-10-2023 Evaluation note* Encounter Date Diagnosis Assessment Notes Treatment Notes Treatment Clinical Notes Mar, Chronic venous insufficiency of lower extremity (ICD-10 - I87.2) Avoid salt and elevate lower extremities, support stockings, inspect legs and feet daily for blisters and ulcerations. Will send for wound clinic notes Mar, Type 2 diabetes mellitus with hyperglycemia, without long-term current use of insulin (ICD-10 - E11.65) This patient is following a comprehensive diabetic treatment plan. They are checking their feet daily for calluses and nonhealing ulcers. They are being seen for yearly dilated eye examinations. Goals: SBP less than 130, LDL less than 100, FBS less than 140, AC and A1C less than 7%. They are checking their BS daily, will which are reviewed at the office visit. [employer] Other [id number] Miscellaneous Notes* Telephone Encounter - Bobbi Sahu - 03/10/2022 9:28 AM EST Images from the original note were not included. Patient records received via electronic fax. Uploaded to [employer] Bobbi Sahu documented in this encounterCleveland [facility]12-07-2022 NotePROCEDURE: XR FOOT LT MIN 3 VIEWS, XR TIB_FIB LT 2V HISTORY: Pain in left foot ; distal anterior tibia wound COMPARISON: None. FINDINGS: BONES:Marked degenerative changes and likely osseous fusion of the talocalcaneal, talonavicular, and calcaneocuboid joints. Mild degenerative changes of the tarsal-metatarsal joint. Loss of plantar arch. Prior knee replacement. SOFT TISSUES:Large dense calcification in expected site of Achilles tendon. Marked atherosclerotic disease. EFFUSION:None visible. OTHER: Negative. IMPRESSION: 1. Marked degenerative joint disease and possibly osseous fusion of the hindfoot and posterior midfoot. 2. Marked pes planus. 3. Suspect remote disruption of the Achilles tendon and subsequent heterotopic bone formation/calcification. 4. No appreciable soft tissue wound or evidence of osteomyelitis. Electronically authenticated by: JAMIE FAROOQ Date: 2022-02-16 09:55[facility]12[facility]07[facility]22 NotePROCEDURE: XR FOOT LT MIN 3 VIEWS, XR TIB_FIB LT 2V HISTORY: Pain in left foot ; distal anterior tibia wound COMPARISON: None. FINDINGS: BONES:Marked degenerative changes and likely osseous fusion of the talocalcaneal, talonavicular, and calcaneocuboid joints. Mild degenerative changes of the tarsal-metatarsal joint. Loss of plantar arch. Prior knee replacement. SOFT TISSUES:Large dense calcification in expected site of Achilles tendon. Marked atherosclerotic disease. EFFUSION:None visible. OTHER: Negative. IMPRESSION: 1. Marked degenerative joint disease and possibly osseous fusion of the hindfoot and posterior midfoot. 2. Marked pes planus. 3. Suspect remote disruption of the Achilles tendon and subsequent heterotopic bone formation/calcification. 4. No appreciable soft tissue wound or evidence of osteomyelitis. Electronically authenticated by: JAMIE FAROOQ Date: 2022-02-16 09:55[facility]11-22-2022 Miscellaneous Notes* Telephone Encounter - Bobbi Sahu - 02/01/2022 4:02 PM EST Images from the original note were not included. Patient records received via electronic fax. Uploaded to [employer] / [employer] Bobbi Sahu documented in this [facility]11-10-2022 Miscellaneous Notes* Telephone Encounter - Bobbi Sahu - 01/20/2022 4:51 PM EST Patient records received via electronic fax. Uploaded to [employer] Bobbi Sahu documented in this [facility]11-08-2022 Miscellaneous Notes* Telephone Encounter - Bobbi Sahu - 01/18/2022 2:49 PM EST Images from the original note were not included. Patient records received via electronic fax. Uploaded to [employer] Bobbi Sahu documented in this [facility]10-26-2022 Miscellaneous Notes* Telephone Encounter - Bobbi Sahu - 01/05/2022 8:57 AM EDT Images from the original note were not included. Patient records received via electronic fax. Uploaded to [employer] / [employer] Bobbi Sahu documented in this [facility]10-25-2022 Miscellaneous Notes* Telephone Encounter - Bobbi Sahu - 01/04/2022 4:17 PM EDT Images from the original note were not included. Patient records received via electronic fax. Uploaded to Ep shared drive Bobbi Sahu documented in this encounterCleveland Clinic Med[facility] Hospital10-21-2022 History of Present illness Narrative* Venkat Evans V, MD - 12/31/2021 1:00 PM EDT Referring Physician: Sara Carlson [id number] [address] [facility] [id number] Primary Care Physician: DO Jorge Unger Kavita Davis is a 76 year old male that presents today for followup CAD non obs P a fib s/p PVI 10/2019 now on coumadin CHF diastolic : normal PRO bnp now Diabetes mellitus . Now on coumadin because of cost of DOAC Per pt >hgba1c is fine LDL 71 Taking antibiotics for cellulitis of left leg due to trauma: for 10 days ;not as hot anymore No fever Weight lower than prior by 5 lbs ASSESSMENT/PLAN: 1. Chronic diastolic heart failure (HCC) - ICD9: 428.32, ICD10: I50.32 (primary diagnosis) SGLT2 inhibitor ideal but similar cost issue perhaps Will ask pt to discuss with PCP - ECHO 2. Paroxysmal atrial fibrillation (HCC) - ICD9: 427.31, ICD10: I48.0 Per EP 3. Coronary artery disease involving [place] coronary artery of [place] heart without angina pectoris- ICD9: 414.01, ICD10: I25.10 Continue statin 4. Controlled type 2 diabetes mellitus without complication, without long-term current use of insulin (HCC) - ICD9: 250.00, ICD10: E11.9 - Continue current medications Venkat Evans MD Current Medications: Current Outpatient Medications Medication Sig warfarin (COUMADIN) 1 mg tablet Take 4 mg by mouth once daily. metFORMIN (GLUCOPHAGE) 500 mg tablet Take 500 mg by mouth daily with breakfast. furosemide (LASIX) 40 mg tablet Take 1 tablet by mouth once daily. COMPOUNDED PRESCRIPTION Skin cream - patient unsure of name. potassium chloride ER (K-DUR, KLOR-CON) 20 mEq tablet Take 1 tablet by mouth once daily. pravastatin (PRAVACHOL) 80 mg tablet Take 1 tablet by mouth daily at bedtime. ACETAMINOPHEN (TYLENOL 8 HOUR ORAL) Take by mouth as needed. 325 mg - 500 mg only as needed (not more than once per day) allopurinol 300 mg tablet Take 300 mg by mouth once daily. No current facility-administered medications for this visit. PHYSICAL EXAMINATION: Vital Signs: There were no vitals taken for this visit. There is no height or weight on file to calculate BMI. GENERAL: Alert, oriented., Well appearing. No jaundice, anemia, clubbing, or cyanosis. HEENT: no lymphadenopathy. NECK: No JVD, masses, or thyromegaly. Good carotid upstrokes. No carotid bruit. No lymphadenopathy. CARDIAC: Regular rhythm CHEST: Chest clear to auscultation. ABDOMEN: Soft, nontender, with no obvious organomegaly or masses. No epigastric bruit. EDEMA: + left leg with some redness edema PERIPHERAL PULSES: 2+ SKIN: warm peripheries, no rash. NEURO: no focal neurological deficit ECG today: PAST MEDICAL HISTORY Diagnosis Date Acute gastric ulcer Atrial fibrillation (HCC) CAD (coronary artery disease) Congestive heart failure (HCC) DM2 (diabetes mellitus, type 2) (HCC) ED (erectile dysfunction) HTN (hypertension) Left ureteral calculus Obstructive chronic bronchitis with exacerbation (HCC) COPD Perianal dermatitis Status post ablation of atrial fibrillation 10/23/2019 Tubular adenoma PAST SURGICAL HISTORY Procedure Laterality Date ANESTH OPEN/SURG ARTHRS TOTAL KNEE ARTHROPLASTY 2007 Right Knee ARTHRP KNE CONDYLE&PLATU MEDIAL&LAT COMPARTMENTS 2000 Left Knee CARDIAC CATH 2009 CARDIAC CATH 06/16/2015 COLONOSCOPY OPEN CHONDROPLASTY W/ MICRO DRILLING 2005 PAST SURGICAL HISTORY OF 1974 Fistulotomy PAST SURGICAL HISTORY OF Partial Medial Menisectomy Bilateral Knee PAST SURGICAL HISTORY OF 1991 Acrominoplasty Right Shoulder PAST SURGICAL HISTORY OF Bilateral Club Foot Surgery PAST SURGICAL HISTORY OF 2008 Anthroscopy Left Shoulder PAST SURGICAL HISTORY OF 2010 Revision Left Knee PAST SURGICAL HISTORY OF minor hand surgery REPAIR UMBILICAL HERNIA 2007 ROTATOR CUFF REPAIR 1993 Left Shoulder ROTATOR CUFF REPAIR 1996 Right Shoulder Do you need any refills today? No Allergies: ALLERGIES No Known Allergies Social History: TOBACCO: Tobacco Use: for 25 years. Quit 12/11/2012. Types: Cigars ALCOHOL: + alcohol consumption ROS: Card: See present history. Pulm:No cough or sputum production Gastro:no bowel changes. GenUr:no urinary symptoms. Endo:no chronic fatigue, significant weight loss/gain, heat/cold intolerance. Neuro:no focal weakness, focal sensory loss, headache, visual changes, seizure activity, ataxia, speech/language loss. Rheum:no joint swelling, back pain, knee pain, hip pain, or neck pain. Infect:no fevers, chills, rigors or night sweats. Skin:no rash Heme:no bruising LIPIDS: Triglyceride (mg/dL) Date Value 09/18/2020 83 Cholesterol, Total (mg/dL) Date Value 09/18/2020 143 HDL Cholesterol (mg/dL) Date Value 09/18/2020 48 LDL Cholesterol (mg/dL) Date Value 09/18/2020 78 Venkat Evans MD documented in this [facility]10-11-2022 Miscellaneous Notes* Telephone Encounter - Bobbi Sahu - 12/21/2021 4:17 PM EDT Images from the original note were not included. Patient records received via electronic fax. Uploaded to [employer]. Bobbi Sahu documented in this [facility]09-27-2022 Miscellaneous Notes* Telephone Encounter - Bobbi Sahu - 12/07/2021 2:04 PM EDT Patient records received via electronic fax. Uploaded to [employer] / [employer] Bobbi Sahu documented in this [facility]04-28-2022 Miscellaneous Notes* Telephone Encounter - Suman Garvin - 07/08/2021 4:17 PM EDT Images from the original note were not included. Outside medical records (INR report 07/08/2021) scanned into shared [employer]. documented in this [facility]04-15-[facility] History of Present illness Narrative* Ruben Denton MD - 06/25/2021 1:31 PM EDT HISTORY OF PRESENT ILLNESS The above relevant present and past medical Hx was verified and the exam findings were confirmed with additional exam findings added/clarified and/or corrected in my exam below. Additional Hx/summaryis as follows: F/U for persistent AF, s/p PVAI in 10/2019. He reports that he still feels Sx like he would get whenhe was in AF, but they resolve after an hour. Sx occur a few times per month, to the point that he does not necessarily notice this much or alter his activities much from this. He states that his notices he sleeps more. ACTIVE PROBLEM LIST Christian (Obstructive Sleep Apnea) Htn (Hypertension) Dyslipidemia Atrial Fibrillation (Hcc) Atherosclerosis of [place] Coronary Artery of [place] Heart Without Angina Pectoris Diabetes Mellitus Type 2, Controlled, Without Complications (Hcc) Atrial Fibrillation, Persistent (Hcc) Paroxysmal Atrial Fibrillation (Hcc) Paroxysmal Atrial Flutter (Hcc) Obesity, Class III, BMI >= 40 FAMILY HISTORY Problem Relation Age of Onset Heart Mother Heart Father Social History Tobacco Use Smoking status: Former Smoker Years: 25.00 Types: Cigars Quit date: 12/11/2012 Years since quittin.5 Smokeless tobacco: Never Used Vaping Use Vaping Use: Never used Substance Use Topics Alcohol use: Not Currently Drug use: No ROS: Constitutional: - Negative Neuro: - Negative Psych: - Negative HEENT: - Negative Endo: - Negative CV: See HPI Pulm: - Negative GI: - Negative : - Negative MSK: - Negative Derm: - Negative Heme: - Negative Cardiac meds are: warfarin, furosemide, a statin. INR is managed by [facility] and is checked monthly. No problems with warfarin. Meds and allergies were reviewed/updated in EPIC. General - Well-developed, obese, no acute distress. HEENT - Normocephalic, atraumatic. Neck -Supple, no JVD, no bruits, no thyromegaly. Heart - RRR, no murmur. Lungs - CTA bilaterally. Abdomen - Positive bowel sounds, no bruit, no organomegaly, no masses. Back - Non-tender. Extremities - No edema. Normal pulses. Neuro - Alert and oriented to person, place, time. ECG today in the office shows: NSR 69 [id number] Low voltage P waves Impression and plan dictated separately; to be transcribed. Ruben Denton MD CC - Declan Swanson, DO This clinical note has been produced using speech recognition software and may contain errors related to that system including grammar, punctuation, spelling, gender and words and phrases that may beinappropriate. documented in this encounterCleveland Clinic [facility]04-15-2022 History of Present illness Narrative* Sara Carlson APRN.[facility] - 06/25/2021 1:25 PM EDT Images from the original note were not included. [facility] [place] [facility] Department of Cardiovascular Medicine SECTION OF CLINICAL CARDIOLOGY OUTPATIENT VISIT DATE June 25, 2021 OUTPATIENT VISIT TYPE ESTABLISHED PRIMARY CARE PHYSICIAN: Declan Swanson ([facility]) [address] [place] [address] CHIEF COMPLAINT: follow up HISTORY OF PRESENT ILLNESS: Mr. Davis is a 76 year old male who presents today for a cardiovascular medicine followed by Dr. Evans & Dr. Denton for non occlusive CAD , chronic diastolic heart failure, paroxysmal atrial fibrillation (s/p ablation 2019; [id number]: 3%; age, hypertension, diabetes type II), Other PMH of diabetes type II, hypertension, h/o gastric ulcer, COPD. Moderate functional capacity (active with ADL), he states compliance with medications. Accompany by No complaints, home weight 270lb He denies chest pain, shortness of breath, orthopnea, cough, edema, palpitations, PND, lightheadedness or syncope. PAST CARDIAC HISTORY: see below PAST MEDICAL HISTORY Diagnosis Date Acute gastric ulcer Atrial fibrillation (HCC) CAD (coronary artery disease) Congestive heart failure (HCC) DM2 (diabetes mellitus, type 2) (HCC) ED (erectile dysfunction) HTN (hypertension) Left ureteral calculus Obstructive chronic bronchitis with exacerbation (HCC) COPD Perianal dermatitis Status post ablation of atrial fibrillation 10/23/2019 Tubular adenoma PAST SURGICAL HISTORY Procedure Laterality Date ANESTH OPEN/SURG ARTHRS TOTAL KNEE ARTHROPLASTY 2007 Right Knee ARTHRP KNE CONDYLE&PLATU MEDIAL&LAT COMPARTMENTS 2000 Left Knee CARDIAC CATH 2009 CARDIAC CATH 06/16/2015 COLONOSCOPY OPEN CHONDROPLASTY W/ MICRO DRILLING 2005 PAST SURGICAL HISTORY OF 1974 Fistulotomy PAST SURGICAL HISTORY OF Partial Medial Menisectomy Bilateral Knee PAST SURGICAL HISTORY OF 1991 Acrominoplasty Right Shoulder PAST SURGICAL HISTORY OF Bilateral Club Foot Surgery PAST SURGICAL HISTORY OF 2008 Anthroscopy Left Shoulder PAST SURGICAL HISTORY OF 2010 Revision Left Knee PAST SURGICAL HISTORY OF minor hand surgery REPAIR UMBILICAL HERNIA 2007 ROTATOR CUFF REPAIR 1993 Left Shoulder ROTATOR CUFF REPAIR 1996 Right Shoulder SOCIAL HISTORY Social History Tobacco Use Smoking status: Former Smoker Years: 25.00 Types: Cigars Quit date: 12/11/2012 Years since quittin.5 Smokeless tobacco: Never Used Vaping Use Vaping Use: Never used Substance Use Topics Alcohol use: Not Currently Drug use: No FAMILY HISTORY Problem Relation Age of Onset Heart Mother Heart Father ALLERGIES: ALLERGIES No Known Allergies MEDICATIONS: warfarin (COUMADIN) 1 mg tablet Take 4 mg by mouth once daily. apixaban (ELIQUIS) 5 mg tab(s) Take 1 tablet by mouth twice daily. metFORMIN (GLUCOPHAGE) 500 mg tablet Take 500 mg by mouth daily with breakfast. furosemide (LASIX) 40 mg tablet Take 1 tablet by mouth once daily. COMPOUNDED PRESCRIPTION Skin cream - patient unsure of name. potassium chloride ER (K-DUR, KLOR-CON) 20 mEq tablet Take 1 tablet by mouth once daily. pravastatin (PRAVACHOL) 80 mg tablet Take 1 tablet by mouth daily at bedtime. ACETAMINOPHEN (TYLENOL 8 HOUR ORAL) Take by mouth as needed. 325 mg - 500 mg only as needed (not more than once per day) allopurinol 300 mg tablet Take 300 mg by mouth once daily. REVIEW OF SYSTEMS: GENERAL: Negative for: Weight loss or gain, Fever or Chills, Weakness and Sleep difficulties. NECK: Negative for: Swelling, Pain, Stiffness RESPIRATORY: Negative for: Cough, Blood in Sputum, Shortness of breath, Wheezing, Apnea GASTROINTESTINAL: Negative for: Trouble swallowing, Heartburn, Change in bowel habits, Blood in stool, Dark black stools MUSCULOSKELETAL: Negtive for: Muscle or joint pain, stiffness, Joint swelling NEUROLOGIC/PSYCHIATRIC: Negative for: Weakness, Paralysis, Numbness, Tingling, Tremor, Nervousness or anxiety, Depressed mood, Memory loss SKIN: Negative for: Rash, Itching HEMATOLOGICAL/LYMPHATIC: Negative for: Easy bruising, Easy bleeding ENDOCRINE: Negative for: Heat or Cold Intolerance, Excessive Sweating, Frequent Urination, FrequentThirst PHYSICAL EXAMINATION: General: Well appearing, in no acute distress, speaking in complete sentences. Neck: No jugular venous distention, no carotid bruits, carotids have a normal upstroke Lungs: Clear to auscultation bilaterally, no wheezing or rhonchi. Heart: Regular rhythm, PMI not displaced, S1, S2 normal, no S3, no S4, no heaves, no rub and no murmur. Abdomen: Soft, nontender, bowel sounds normal, no palpable organomegaly, no bruits. Extremities: No peripheral edema . Grade 2/4 distal pulses bilaterally. Neuro: Oriented to person, place and time, alert, cooperative CARDIOVASCULAR MEDICINE TESTING: Reviewed VS, labs, previous cardiac testing Vitals 04/02/2020 09/18/2020 09/18/2020 06/25/2021 SITTING SYSTOLIC 136 130 130 132 SITTING DIASTOLIC 66 70 70 80 PULSE 75 72 72 69 TEMPERATURE RESPIRATIONS WEIGHT in POUNDS 261 lb 268 lb 268 lb 275 lb WEIGHT in KILOGRAMS 118.389 kg 121.564 kg 121.564 kg 124.739 kg HEIGHT in INCHES 65 in. 65 in. 65 in. 65 in. HEIGHT in CM 165.1 cm 165.1 cm 165.1 cm 165.1 cm SITTING BP 136/66 130/70 130/70 132/80 PULSE OX BODY MASS INDEX 43.43 44.6 44.6 45.76 EC06-25-2021; NSR, V'69, LYNETTE: 206ms, QTc: 458ms, similar to previous IMPRESSION: Mr. Davis is a 76 year old male with a PMH of non occlusive CAD , chronic diastolic heart failure, paroxysmal atrial fibrillation (s/p ablation 2019; [id number]: 3%; age, hypertension, diabetes type II), Other PMH of diabetes type II, hypertension, h/o gastric ulcer, COPD. asymptomatic, ECG no new injury or ischemia Discussed with the patient & the following: -the importance of low sodium diet less than 2000mg per day, monitoring daily weights PLAN AND RECOMMENDATIONS: 1. Continue with current medication regimen 2. Labs annually Follow up appointment; in six months I spent 25 to 30 minutes in the visit, with more than 50% of the total [id number] time of the visit in counseling / coordination of care. CONTACT INFORMATION: Sara Carlson APRN.CLERICAL ORDER FILLER, 06/25/21 [facility] Second Floor [address] [facility] [address] [place] [address] documented in this encounterCleveland Clinic Med[facility] Hospital03-31-2022 Miscellaneous Notes* Telephone Encounter - Suman Garvin - 06/10/2021 1:12 PM EDT Images from the original note were not included. Outside medical records (INR results 06/10/2021) scanned into shared [address]. documented in this encounterCleveland Clinic Med[facility] Hospital03-22-2022 Miscellaneous Notes* Telephone Encounter - Kim Caruso RN - 06/01/2021 4:26 PM EDT Message left. Yes, he needs EKG. Ordered. (Not sure why he has 2 appts. on same day with same dept). Kim Caruso RN * Telephone Encounter - Angela Collazo - 05/31/2021 11:30 AM EDT May 31, 2021 Patient Name:PATIENT Jorge Davis Contact Information: [phone] Last visit with EP Provider: 09/18/2020 Reason for Call: Patient would like to know if he should be getting an EKG prior to his appointment06/25. Last EKG was 09/18/20. Physician: Feliz Lipscomb MD Thank you, Angela Collazo The patient was informed that our caregivers are afforded 72 business hours to review and respond telephone messages. documented in this encounterCleveland Clinic [facility]03-10-2022 Evaluation note* Encounter Date Diagnosis Assessment Notes Treatment Notes Treatment Clinical Notes May, History of bilateral knee arthroplasty (ICD-10 - Z96.653) May, Other Overall patient is doing fantastic with both of his knee replacements including the revision replacement on the left. We did discuss continued surveillance and the patient would prefer for her to come in yearly for x-rays to ensure that his knees are still doing well. I agree with this and we will plan to see him in 1 year for repeat x-rays. I did inform him that if he has any issues or concerns in the meantime he can call us and we will see him sooner. [facility] Other 02-09-2022 Miscellaneous Notes* Telephone Encounter - Jessika Escobar - 04/21/2021 4:00 PM EST Received outside records - uploaded to Scanned Documents in [facility] through onbase Appointment on Visit date not found Last appointment with this provider 04/01/2021 Last OV in this dept 04/19/2019 Jessika Escobar [facility] Diagnosis Atrial fibrillation, persistent (HCC)- Primary Atrial fibrillation [facility] Diagnosis Atrial fibrillation, persistent (HCC)- Primary Atrial fibrillation S/P ablation of atrial fibrillation Other postprocedural status Obesity, Class III, BMI >= 40 Morbid obesity Controlled type 2 diabetes mellitus without complication, without long-term current use of insulin (HCC) CHRISTIAN (obstructive sleep apnea) Obstructive sleep apnea (adult) (pediatric) Atherosclerosis of [place] coronary artery of [place] heart without angina pectoris Encounter for current long-term use of anticoagulants Long-term (current) use of anticoagulants [facility] Diagnosis Acute on chronic diastolic heart failure (HCC)- Primary Acute on chronic diastolic heart failure Primary hypertension Unspecified essential hypertension [facility] Diagnosis Chronic diastolic heart failure (HCC)- Primary Chronic diastolic heart failure Paroxysmal atrial fibrillation (HCC) Atrial fibrillation Coronary artery disease involving [place] coronary artery of [place] heart without angina pectoris Controlled type 2 diabetes mellitus without complication, without long-term current use of insulin (HCC) documented in this encounter [facility] noteNo InformationNort Leadformance Other Evaluation note* Diagnosis Atrial fibrillation, persistent (HCC)- Primary Atrial fibrillation S/P ablation of atrial fibrillation Other postprocedural status Controlled type 2 diabetes mellitus without complication, without long-term current use of insulin (HCC) Encounter for current long-term use of anticoagulants Long-term (current) use of anticoagulants CHRISTIAN (obstructive sleep apnea) Obstructive sleep apnea (adult) (pediatric) Essential hypertension Unspecified essential hypertension Obesity, Class III, BMI >= 40 Morbid obesity Atherosclerosis of [place] coronary artery of [place] heart without angina pectoris documented in this encounter [facility] noteNort Leadformance Other Evaluation noteNo assessment information available [facility] Work Phone: Evaluation note* Diagnosis Chronic diastolic heart failure (HCC)- Primary Chronic diastolic heart failure Atrial fibrillation, persistent (HCC) Atrial fibrillation Obesity, Class III, 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) Morbid obesity Mixed hyperlipidemia documented in this encounter [facility] note* Diagnosis Atrial fibrillation, persistent (HCC)- Primary Atrial fibrillation S/P ablation of atrial fibrillation Other postprocedural status On continuous oral anticoagulation Long-term (current) use of anticoagulants documented in this encounter [facility] note* Diagnosis Onset Date Resolution Status ASHD (arteriosclerotic heart disease) acute Acute bronchitis due to other specified organisms noneactive Contact dermatitis acute Type 2 diabetes mellitus with hyperglycemia acute [facility] Work Phone: Evaluation note* Diagnosis Onset Date Resolution Status ASHD (arteriosclerotic heart disease) acute Acute bronchitis due to other specified organisms noneactive Atopic dermatitis acute Type 2 diabetes mellitus with hyperglycemia acute Afib acute ASHD (arteriosclerotic heart disease) acute Hypercholesteremia acute CHRISTIAN (obstructive sleep apnea) acute Pulmonary nodule, right acut e Type 2 diabetes mellitus wit h diabetic polyneuropathy acute Type 2 diabetes mellitus with hyperglycemia acute Venous insufficiency of both lower extremities acute Medicare annual wellness visit, subsequent noneactive [facility] Work Phone: History general Narrative - Reported* Type Description Date Medical History hypertension Medical History hypercholesterolemia Medical History Atrial fibrillation Surgical History left knee replacement X 2 Surgical History Procedure:hernia repair Surgical History Procedure:knee replacement VASYL Surgical History right knee replacement Surgical History Procedure:cataract extraction a nd lens implantation Surgical History shoulder surgery x 4 Surgical History cyst rectum Surgical History Procedure:carpal tunnel release Surgical History triger finger Surgical History umbilical hernia Surgical History cataract Surgical History club feet reconstruction Surgical History carpal tunnel Surgical History rotator cuff repair Surgical History heart ablasion 10/2019 Surgical History porstate sx 2017 Hospitalization History see above [facility] Other History general Narrative - Reported* Type Description Date Medical History Controlled type 2 di abetes mellitus with hyperglycemia, without long-term current use of insulin Medical History Atherosclerosis of n ative artery of both lower extremities, with unspecified presence of clinical manifestation Medical History Chronic venous insufficiency Medical History Leg laceration Medical History Cellulitis of left leg Medical History Lumbosacral spondylosis with rad iculopathy Medical History COVID-19 Medical History Cardiovascular disease Medical History Depression screening Medical History Chronic bronchitis, simple Medical History Adenomatous polyp of descending colon Medical History ASHD (arteriosclerotic heart dis ease) Medical History History of nephrolithiasis Medical History Dyshidrotic eczema Medical History Hyperlipidemia type II Medical History Paroxysmal atrial fibrillation Medical History Pulmonary nodule, right Medical History Obesity, morbid, BMI 40.0-49.9 Medical History CHRISTIAN (obstructive sleep apnea) Medical History Hypokalemia Medical History Seasonal allergic rhinitis due t o pollen Medical History Left wrist pain Medical History Renal cyst Medical History History of gastric ulcer Surgical History heart ablation 10/2019 Surgical History Prostate surgery 2016 Surgical History Fistulotomy 1974 Surgical History Partial Medial menisectomy Surgical History L knee acrominoplasty R shoulde r 1991 Surgical History L rotator cuff repair 1993 Surgical History R rotator cuff repair 1996 Surgical History Bilateral club foot surgery Surgical History L total knee 2000 Surgical History Umbilical hernia repair 2007 Surgical History R knee medial menisectomy Surgical History Chondroplasty 2005 Surgical History R TKA 2006 Surgical History Arthroscopy L shoulder 2008 Surgical History Revision L knee 2010 Surgical History Cystoscopy 01/2015 Surgical History Excision lipoma of back 08/2013 Surgical History Colonoscopy 12/22, 03/2016 Surgical History L heart cath 06/2015 Hospitalization History see above [facility] Other History general Narrative - ReportedNort Leadformance Other Reason for referral (narrative)* Outpatient Procedure (Routine) - Pending Review Specialty Diagnoses / Procedures Referred By Carmine t [facility] Diagnoses Atrial fibrillation, persistent (HCC) Procedures ECG COMPLETE ECG ROUTINE ECG W/LEAST 12 LDS W/I&R Ruben Denton MD [address] [place] [address] [address] Referral ID Status Reason Start Date Expiration Date Visits Requested Visits Authorized [id number] Pending Review Auto-Generat ed Referral 06/01/2021 06/01/2022 1 1 [facility] for referral (narrative)* Outpatient Procedure (Routine) - Closed Specialty Diagnoses / Procedures Referred By Contac t Referred To Contact [facility] Diagnoses Atrial fibrillation, persistent (HCC) Procedures ECG COMPLETE ECG ROUTINE ECG W/LEAST 12 LDS W/I&R Ruben Denton MD [address] [place] [address] [address] Referral ID Status Reason Start Date Expiration Date V isits Requested Visits Authorized [id number] Closed Auto-Generate d Referral 06/25/2021 06/25/2022 1 1 [facility] for referral (narrative)* Outpatient Procedure (Routine) - Authorized Specialty Diagnoses / Procedures Referred By Contac t Referred To Contact [facility] Diagnoses Chronic diastolic heart failure (HCC) Procedures ECHO ECHO TTHRC R-T 2D W/WOM-MODE COMPL SPEC&[place] [address] [place] [address] [place] [id number] Referral ID Status Reason Start Date Expiration Date Visits Requested Visits Authorized [id number] Authorized Auto-Generat ed Referral 2 12/31/2022 1 1 [facility] for referral (narrative)* Outpatient Procedure (Routine) - Pending Review Specialty Diagnoses / Procedures Referred By Contac t Referred To Contact [facility] [place] Diagnoses Atrial fibrillation, persistent (HCC) Procedures ECG COMPLETE ECG ROUTINE ECG W/LEAST 12 LDS W/I&R Ruben Denton MD [address] [place] [address] [facility] [address] [address] Referral ID Status Reason Start Date Expiration Date Visits Requested Visits Authorized [id number] Pending Review Auto-Generat ed Referral 06/24/2022 06/24/2023 1 1 T [facility] for referral (narrative)* Outpatient Procedure (Routine) - Authorized Specialty Diagnoses / Procedures Referred By Contac t Referred To Contact [facility] [place] Diagnoses Chronic diastolic heart failure (HCC) Procedures ECHO ECHO TTHRC R-T 2D W/WOM-MODE COMPL SPEC&[place] [address] [place] [address] [facility] [address] [address] Referral ID Status Reason Start Date Expiration Date Visits Requested Visits Authorized [id number] Authorized Auto-Generat ed Referral 06/05/2023 06/04/2024 1 1 T [facility] Summary Purpose Family History Relationship Condition Age at Onset Recorded Date/T chris father Diabetes mellitus Unknown Malignant neoplasm Unknown Not Specified Diabetes mellitus Unknown Coronary artery disease Unknown Relationship Condition Age at Onset Recorded Date/T chris father Diabetes mellitus Unknown Malignant neoplasm Unknown Not Specified Diabetes mellitus Unknown Coronary artery disease Unknown Unknown family member Unknown Not Specified Heart disease Unknown Diabetes mellitus Unknown Hypertension Unknown Advance Directives Documents on File Type Date 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 Advance Directive(s) 12/24/2019 10:01 AM Advance Directive(s) 12/23/2019 4:14 PM Advance Directive(s) 12/19/2019 11:34 AM Advance Directive(s) 10/23/2019 6:06 AM Advance Directive(s) 10/10/2019 2:27 PM Advance Directive(s) 09/18/2019 6:02 AM Advance Directive(s) 09/16/2019 9:29 AM Advance Directive(s) 05/28/2019 9:25 AM Advance Directive(s) 06/27/2018 12:49 PM Advance Directive(s) 06/22/2018 8:15 AM Advance Directive(s) 05/30/2018 3:17 PM Documents on File Type Date 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 Advance Directive(s) 12/24/2019 10:01 AM Advance Directive(s) 12/23/2019 4:14 PM Advance Directive(s) 12/19/2019 11:34 AM Advance Directive(s) 10/23/2019 6:06 AM Advance Directive(s) 10/10/2019 2:27 PM Advance Directive(s) 09/18/2019 6:02 AM Advance Directive(s) 09/16/2019 9:29 AM Advance Directive(s) 05/28/2019 9:25 AM Advance Directive(s) 06/27/2018 12:49 PM Advance Directive(s) 06/22/2018 8:15 AM Advance Directive(s) 05/30/2018 3:17 PM Advance Directive Response Recorded Date/ Time Advance Directives No October 12, 2 023 7:44am Hospital Course Note HNO ID: [id number] Author: Kandice Carlson Service: [facility] Author Type: Nurse Practitioner Type: Discharge Summary Filed: 10/24/2019 6:08 PM Note Text: Attestation signed by Ruben Denton MD at 10/24/2019 8:53 PM Ruben Denton MD DISCHARGE SUMMARY PATIENT NAME: Jorge Davis ADMISSION DATE: 10/23/2019 DISCHARGE DATE: 10/24/2019 ATTENDING PHYSICIAN: Ruben Denton MD Code Status: Not on file Highest Readmission Risk Score: 9 The 30 day readmissions risk score is derived from an internally validated risk model which evaluates patient level characteristics, utilization history, medication orders and lab results up until the day of discharge. Patients with a score of 40 or above are considered highest risk for readmission. Specific patient level drivers will be listed at the bottom of the summary. R (more content not included)... Note HNO ID: [id number] Author: Sarah Kramer (Aa) Service: ? Author Type: Laboratory Miller Type: Anesthesia Procedure Notes Filed: 10/23/2019 9:12 AM Note Text: ANESTHESIOLOGY PROCEDURE NOTE Airway General Information Procedure Start Time/Medication Administration: 10/23/2019 8:56 AM Patient location during procedure: OR Timeout Performed Pre-procedure: timeout performed Consent Obtained: Yes Patient identity confirmed: arm band Staffing Anesthesiologist: Murtaza Bauer Performed by: CAR Indications and Patient Condition Preoxygenated: yes Manual In-Line Stabilization: No Difficult Mask: No Indications for airway management: anesthesia anesthesia circuit Method: asleep Cricoid Pressure: No Airway Accessory: oral airway Final Airway Details Final airway type: endotracheal airway Final Endotracheal Airway: ETT Cuffed: yes Successful intubation technique: direct laryngoscopy Devices used: intubating stylet Endotracheal tube insertion site: oral Blade: Paula Blade size: #4 ETT size (mm): 8.0 (more content not included)... Procedure Findings Note HNO ID: [id number] Author: Sarah Kramer (Aa) Service: ? Author Type: Laboratory Miller Type: Anesthesia Procedure Notes Filed: 10/23/2019 9:12 AM Note Text: ANESTHESIOLOGY PROCEDURE NOTE Airway General Information Procedure Start Time/Medication Administration: 10/23/2019 8:56 AM Patient location during procedure: OR Timeout Performed Pre-procedure: timeout performed Consent Obtained: Yes Patient identity confirmed: arm band Staffing Anesthesiologist: Murtaza Bauer Performed by: CAR Indications and Patient Condition Preoxygenated: yes Manual In-Line Stabilization: No Difficult Mask: No Indications for airway management: anesthesia anesthesia circuit Method: asleep Cricoid Pressure: No Airway Accessory: oral airway Final Airway Details Final airway type: endotracheal airway Final Endotracheal Airway: ETT Cuffed: yes Successful intubation technique: direct laryngoscopy Devices used: intubating stylet Endotracheal tube insertion site: oral Blade: Paula Blade size: #4 ETT size (mm): 8.0 (more content not included)... Chief Complaint and Reason for Visit Chief Complaint Z96.653 M25.551 M25. 552 M47.26 Chief Complaint Z96.653 M25.551 M25. 552 M47.26 Back Pain Chief Complaint sinus congestion Chief Complaint sinus congestion rash on neck Reason for Visit ASHD (arteriosclerot ic heart disease) Acute bronchitis due to other specified organisms Contact dermatitis Type 2 diabetes mellitus with hyperglycemia Chief Complaint sinus congestion rash on neck Medicare Wellness Reason for Visit ASHD (arteriosclerot ic heart disease) Acute bronchitis due to other specified organisms Atopic dermatitis Type 2 diabetes mellitus with hyperglycemia Afib ASHD (arteriosclerotic heart disease) Hypercholesteremia CHRISTIAN (obstructive sleep apnea) Pulmonary nodule, right Type 2 diabetes mellitus with diabetic polyneuropathy Type 2 diabetes mellitus with hyperglycemia Venous insufficiency of both lower extremities Medicare annual wellness visit, subsequent Additional Source Comments (unrecognized sect ion and content) No Status Records FoundNo Status Records FoundNo Status Records FoundNo Status Records FoundNo Status Records FoundNo Status Records FoundNo Status Records Found INFORMATION SOURCE (unrecogn ized section and content) DATE CREATED AUTHOR 10/03/2019 [facility] DATE CREATED AUTHOR AUTHOR'S ORGANIZ ATION 12/24/2019 [facility] DATE CREATED AUTHOR AUTHOR'S ORGANIZ ATION 02/29/2020 [facility] DATE CREATED AUTHOR AUTHOR'S ORGANIZ ATION 08/19/2022 [facility] DATE CREATED AUTHOR AUTHOR'S ORGANIZ ATION 12/21/2022 [facility] DATE CREATED AUTHOR AUTHOR'S ORGANIZ ATION 06/21/2023 [facility] DATE CREATED AUTHOR AUTHOR'S ORGANIZ ATION 07/27/2023 [facility] Source Comments (unrecognize d section and content) In the event this informatio n is protected by the Federal Confidentiality of Alcohol and Drug Abuse Patient Records regulations: The Federal rules restrict any use of the information to criminally investigate or prosecute any alcohol or drug abuse patient.[facility] the event this information is protected by the Federal Confidentiality of Alcohol and Drug Abuse Patient Records regulations: The Federal rules restrict any use of the information to criminally investigate or prosecute any alcohol or drug abuse patient.[facility] HospitalIn the event this information is protected by the Federal Confidentiality of Alcohol and Drug Abuse Patient Records regulations: The Federal rules restrict any use of the information to criminally investigate or prosecute any alcohol or drug abuse patient.[facility] HospitalIn the event this information is protected by the Federal Confidentiality of Alcohol and Drug Abuse Patient Records regulations: The Federal rules restrict any use of the information to criminally investigate or prosecute any alcohol or drug abuse patient.[facility] HospitalIn the event this information is protected by the Federal Confidentiality of Alcohol and Drug Abuse Patient Records regulations: The Federal rules restrict any use of the information to criminally investigate or prosecute any alcohol or drug abuse patient.[facility] HospitalIn the event this information is protected by the Federal Confidentiality of Alcohol and Drug Abuse Patient Records regulations: The Federal rules restrict any use of the information to criminally investigate or prosecute any alcohol or drug abuse patient.[facility] HospitalIn the event this information is protected by the Federal Confidentiality of Alcohol and Drug Abuse Patient Records regulations: The Federal rules restrict any use of the information to criminally investigate or prosecute any alcohol or drug abuse patient.[facility] HospitalIn the event this information is protected by the Federal Confidentiality of Alcohol and Drug Abuse Patient Records regulations: The Federal rules restrict any use of the information to criminally investigate or prosecute any alcohol or drug abuse patient.[facility] Hospital[facility] the event this information is protected by the Federal Confidentiality of Alcohol and Drug Abuse Patient Records regulations: The Federal rules restrict any use of the information to criminally investigate or prosecute any alcohol or drug abuse patient.[facility] HospitalIn the event this information is protected by the Federal Confidentiality of Alcohol and Drug Abuse Patient Records regulations: The Federal rules restrict any use of the information to criminally investigate or prosecute any alcohol or drug abuse patient.[facility] HospitalIn the event this information is protected by the Federal Confidentiality of Alcohol and Drug Abuse Patient Records regulations: The Federal rules restrict any use of the information to criminally investigate or prosecute any alcohol or drug abuse patient.[facility] Hospital[facility] the event this information is protected by the Federal Confidentiality of Alcohol and Drug Abuse Patient Records regulations: The Federal rules restrict any use of the information to criminally investigate or prosecute any alcohol or drug abuse patient.[facility] HospitalIn the event this information is protected by the Federal Confidentiality of Alcohol and Drug Abuse Patient Records regulations: The Federal rules restrict any use of the information to criminally investigate or prosecute any alcohol or drug abuse patient.[facility] HospitalIn the event this information is protected by the Federal Confidentiality of Alcohol and Drug Abuse Patient Records regulations: The Federal rules restrict any use of the information to criminally investigate or prosecute any alcohol or drug abuse patient.[facility] HospitalIn the event this information is protected by the Federal Confidentiality of Alcohol and Drug Abuse Patient Records regulations: The Federal rules restrict any use of the information to criminally investigate or prosecute any alcohol or drug abuse patient.[facility] HospitalIn the event this information is protected by the Federal Confidentiality of Alcohol and Drug Abuse Patient Records regulations: The Federal rules restrict any use of the information to criminally investigate or prosecute any alcohol or drug abuse patient.[facility] HospitalIn the event this information is protected by the Federal Confidentiality of Alcohol and Drug Abuse Patient Records regulations: The Federal rules restrict any use of the information to criminally investigate or prosecute any alcohol or drug abuse patient.[facility] HospitalIn the event this information is protected by the Federal Confidentiality of Alcohol and Drug Abuse Patient Records regulations: The Federal rules restrict any use of the information to criminally investigate or prosecute any alcohol or drug abuse patient.[facility] HospitalIn the event this information is protected by the Federal Confidentiality of Alcohol and Drug Abuse Patient Records regulations: The Federal rules restrict any use of the information to criminally investigate or prosecute any alcohol or drug abuse patient.[facility] HospitalIn the event this information is protected by the Federal Confidentiality of Alcohol and Drug Abuse Patient Records regulations: The Federal rules restrict any use of the information to criminally investigate or prosecute any alcohol or drug abuse patient.[facility] HospitalIn the event this information is protected by the Federal Confidentiality of Alcohol and Drug Abuse Patient Records regulations: The Federal rules restrict any use of the information to criminally investigate or prosecute any alcohol or drug abuse patient.[facility] HospitalIn the event this information is protected by the Federal Confidentiality of Alcohol and Drug Abuse Patient Records regulations: The Federal rules restrict any use of the information to criminally investigate or prosecute any alcohol or drug abuse patient.[facility] HospitalIn the event this information is protected by the Federal Confidentiality of Alcohol and Drug Abuse Patient Records regulations: The Federal rules restrict any use of the information to criminally investigate or prosecute any alcohol or drug abuse patient.[facility] HospitalIn the event this information is protected by the Federal Confidentiality of Alcohol and Drug Abuse Patient Records regulations: The Federal rules restrict any use of the information to criminally investigate or prosecute any alcohol or drug abuse patient.[facility] HospitalIn the event this information is protected by the Federal Confidentiality of Alcohol and Drug Abuse Patient Records regulations: The Federal rules restrict any use of the information to criminally investigate or prosecute any alcohol or drug abuse patient.[facility] HospitalIn the event this information is protected by the Federal Confidentiality of Alcohol and Drug Abuse Patient Records regulations: The Federal rules restrict any use of the information to criminally investigate or prosecute any alcohol or drug abuse patient.[facility] HospitalIn the event this information is protected by the Federal Confidentiality of Alcohol and Drug Abuse Patient Records regulations: The Federal rules restrict any use of the information to criminally investigate or prosecute any alcohol or drug abuse patient.[facility] HospitalIn the event this information is protected by the Federal Confidentiality of Alcohol and Drug Abuse Patient Records regulations: The Federal rules restrict any use of the information to criminally investigate or prosecute any alcohol or drug abuse patient.[facility] HospitalIn the event this information is protected by the Federal Confidentiality of Alcohol and Drug Abuse Patient Records regulations: The Federal rules restrict any use of the information to criminally investigate or prosecute any alcohol or drug abuse patient.[facility] HospitalIn the event this information is protected by the Federal Confidentiality of Alcohol and Drug Abuse Patient Records regulations: The Federal rules restrict any use of the information to criminally investigate or prosecute any alcohol or drug abuse patient.[facility] HospitalIn the event this information is protected by the Federal Confidentiality of Alcohol and Drug Abuse Patient Records regulations: The Federal rules restrict any use of the information to criminally investigate or prosecute any alcohol or drug abuse patient.[facility] HospitalIn the event this information is protected by the Federal Confidentiality of Alcohol and Drug Abuse Patient Records regulations: The Federal rules restrict any use of the information to criminally investigate or prosecute any alcohol or drug abuse patient.[facility] HospitalIn the event this information is protected by the Federal Confidentiality of Alcohol and Drug Abuse Patient Records regulations: The Federal rules restrict any use of the information to criminally investigate or prosecute any alcohol or drug abuse patient.[facility] HospitalIn the event this information is protected by the Federal Confidentiality of Alcohol and Drug Abuse Patient Records regulations: The Federal rules restrict any use of the information to criminally investigate or prosecute any alcohol or drug abuse patient.[facility] HospitalIn the event this information is protected by the Federal Confidentiality of Alcohol and Drug Abuse Patient Records regulations: The Federal rules restrict any use of the information to criminally investigate or prosecute any alcohol or drug abuse patient.[facility] HospitalIn the event this information is protected by the Federal Confidentiality of Alcohol and Drug Abuse Patient Records regulations: The Federal rules restrict any use of the information to criminally investigate or prosecute any alcohol or drug abuse patient.[facility] HospitalIn the event this information is protected by the Federal Confidentiality of Alcohol and Drug Abuse Patient Records regulations: The Federal rules restrict any use of the information to criminally investigate or prosecute any alcohol or drug abuse patient.[facility] Reason for Visit (unrecogniz ed section and content) Reason Comments Patient Update Reason Comments Results PT INR Reason Comments Follow Up Reason Comments Follow Up Reason Comments Received Outside Medical Records INR Rep ort 07/08/2021 Reason Comments Received Outside Medical Records INR Res ults 06/10/2021 Reason Comments Received Outside Medical Records Reason Comments Patient Update Reason Comments Results Reason Comments Received Outside Medical Records INR Rep ort Reason Comments Received Outside Medical Records INR Rep ort 12/27/2022 Reason Comments Received Outside Medical Records INR Rep ort 02/07/2023 Reason Comments Received Outside Medical Records INR res ults Reason Comments Received Outside Medical Records INR Rep ort 01/10/2023 Reason Comments Received Outside Medical Records INR Rep ort 04/04/2023 Reason Comments Received Outside Medical Records INR Care Teams (unrecognized sec tion and content) 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 Start Date End Date Declan Swanson DO PCP - General Internal Medicine 06/04/13 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 Start Date End Date Kiki Declan Coleman, DO PCP - General Internal Medicine 06/04/13 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 Start Date End Date Declan Swanson, DO PCP - General Internal Medicine 06/04/13 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 Start Date End Date Declan Swanson, DO PCP - General Internal Medicine 06/04/13 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 Start Date End Date Declan Swanson, DO PCP - General Internal Medicine 06/04/13 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 Start Date End Date Declan Swanson, DO PCP - General Internal Medicine 06/04/13 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 Start Date End Date Declan Swanson, DO PCP - General Internal Medicine 06/04/13 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 Start Date End Date Declan Swanson, DO PCP - General Internal Medicine 06/04/13 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 Start Date End Date Declan Swanson, DO PCP - General Internal Medicine 06/04/13 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 Start Date End Date Declan Swanson, DO PCP - General Internal Medicine 06/04/13 Team Status: Active Member Role Status Dates Declan Swanson DO Primary Care Provider Active Team Status: Inactive Member Role Status Dates Declan Swanson DO Primary Care Provider Active Bruce Shine II, MD Attending Provider Active 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 Start Date End Date Declan Swanson DO PCP - General Internal Medicine 06/04/13 Team Status: Inactive Member Role Status Dates Declan Swanson DO Primary Care Provider Active Ruben Celis MD Attending Provider Active 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 Start Date End Date Declan Swanson DO PCP - General Internal Medicine 06/04/13 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 Start Date End Date Declan Swanson DO PCP [facility] Internal Medicine 06/04/13 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 Start Date End Date Declan Swanson PCP [facility] Internal Medicine 06/04/13 Team Status: Inactive Member Role Status Dates Declan Swanson DO Primary Care Provide r, Attending Provider Active Start: June 23, 2023 End: June 23, 2023 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 Start Date End Date Declan Swanson [facility] Internal [facility] 06/04/13 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 Start Date End Date Declan Swanson PCP [facility] Internal Medicine 06/04/13 Team Status: Inactive Member Role Status Dates Declan Swanson DO Primary Care Provide r, Attending Provider Active Start: August 09, 2023 End: August 09, 2023 Team Status: Inactive Member Role Status Dates Declan Swanson DO Primary Care Provide r, Attending Provider Active Start: August 21, 2023 End: August 21, 2023 Goals (unrecognized section and content) Goals may be documented in a n alternate section FOR RECORDS PERTAINING TO PATIENTS WHO ARE OR HAVE BEEN ENROLLED IN A CHEMICAL DEPENDENCY/SUBSTANCEABUSE PROGRAM, SOME INFORMATION MAY BE OMITTED. This clinical summary was aggregated from multiple sources. Caution should be exercised in using it in the provision of clinical care. This summary normalizes information from multiple sources, and as a consequence, information in this document may materially change the coding, format and clinical context of patient data. In addition, data may be omitted in some cases. CLINICAL DECISIONS SHOULD BE BASED ON THE PRIMARY CLINICAL RECORDS. [facility] provides no warranty or guarantee of the accuracy or completeness of information in this document.
[2023-08-22 07:27] LABS: Basophils Absolute Auto 0.1 10^3/uL (0.0-0.1); Basophils Percent Auto 0.6 % (0.2-2.0); Eosinophils Absolute Auto 0.1 10^3/uL (0.0-0.7); Eosinophils Percent Auto 1.6 % (0.9-7.0); Hematocrit 47.9 % (42.0-54.0); Immature Granulocytes Abs Auto 0.04 10^3/uL (0.00-0.03); Immature Granulocytes Pct Auto 0.4 % (0.0-0.5); Lymphocytes Absolute Auto 2.5 10^3/uL (1.2-3.8); Lymphocytes Percent Auto 27.4 % (20.5-60.0); Mean Corpuscular HGB Conc 31.3 g/dL (29.9-35.2); Mean Corpuscular Hemoglobin 28.8 pg (25.9-34.0); Mean Corpuscular Volume 92.1 fL (80.0-94.0); Mean Platelet Volume 10.4 fL (9.5-13.5); Monocytes Absolute Auto 0.8 10^3/uL (0.3-0.8); Monocytes Percent Auto 8.6 % (1.7-12.0); Neutrophils Absolute Auto 5.5 10^3/uL (1.4-6.5); Neutrophils Percent Auto 61.4 % (43.0-75.0); Platelet Count 187 10^3/uL (150-450); Red Cell Distribution Width 15.7 % (11.0-15.0); White Blood Count 8.9 10^3/uL (4.0-11.0)
[2023-08-22 07:43] LABS: Alanine Aminotransferase 35 U/L (16-63); Albumin Globulin Ratio 0.9; Albumin Level 3.4 g/dL (3.4-5.0); Alkaline Phosphatase 117 U/L (46-116); Anion Gap 9.8; Aspartate Amino Transferase 19 U/L (15-37); BUN Creatinine Ratio 17.6; Bilirubin Total 0.7 mg/dL (0.2-1.0); Calcium 8.4 mg/dL (8.5-10.1); Carbon Dioxide 31.1 mmol/L (21.0-32.0); Chloride 102 mmol/L (98-107); Chol HDL Ratio 2.3; Cholesterol 137 mg/dL (<=200); Estimated GFR (African America >60 (>=60); Estimated GFR (Non-African Ame >60 (>=60); Glucose 97 mg/dL (74-106); HDL Cholesterol 60 mg/dL (40-60); LDL Cholesterol Calculated 64.2 mg/dL; Potassium 3.9 mmol/L (3.5-5.1); Sodium 139 mmol/L (136-145); Total Protein 7.4 g/dL (6.4-8.2); Triglycerides 64 mg/dL (<=150); VLDL CHOLESTEROL 12.8 mg/dL
[2023-08-22 08:03] LABS: Microalbumin Urine Random 3.2 mg/dL (<=30.0)
[2023-08-22 08:14] LABS: Prostate Specific Antigen Scrn 1.24 ng/mL (<=4.00)
[2023-08-22 10:02] LABS: Estimated Average Glucose 140 mg/dL; Glycohemoglobin A1C 6.5 % (4.5-6.2)
== END 2023-08-22 06:42 | disposition home or self-care (01) ==
LOC: LAB 06:46
PROVIDERS: PCP Internal Medicine; Visit Provider Internal Medicine
DX: E11.42 Type 2 diabetes mellitus with diabetic polyneuropathy (principal); E78.00 Pure hypercholesterolemia, unspecified; E11.65 Type 2 diabetes mellitus with hyperglycemia; I25.10 Atherosclerotic heart disease of native coronary artery without angina pectoris; Z12.5 Encounter for screening for malignant neoplasm of prostate; I35.0 Nonrheumatic aortic (valve) stenosis; I10 Essential (primary) hypertension; R09.89 Other specified symptoms and signs involving the circulatory and respiratory systems
CPT/HCPCS: 36415; 80053; 80061; 82043; 83036; 85025; G0103

== ENCOUNTER 2023-09-11 00:18 | Outpatient (RCR) | payer MEDICARE, OTHER, SELFPAY | END 2023-10-11 09:54 | disposition home or self-care (01) | LOC: MM 00:18 | PROVIDERS: PCP Internal Medicine; Visit Provider Internal Medicine | DX: Z51.81 Encounter for therapeutic drug level monitoring (principal); Z79.01 Long term (current) use of anticoagulants | CPT/HCPCS: 85610; G0463 ==

== ENCOUNTER 2023-10-12 00:34 | Outpatient (RCR) | payer MEDICARE, OTHER, SELFPAY | END 2023-11-10 09:56 | disposition home or self-care (01) | LOC: MM 00:34 | PROVIDERS: PCP Internal Medicine; Visit Provider Internal Medicine | DX: Z51.81 Encounter for therapeutic drug level monitoring (principal); Z79.01 Long term (current) use of anticoagulants | CPT/HCPCS: 85610; G0463 ==

== ENCOUNTER 2023-11-13 01:29 | Outpatient (RCR) | payer MEDICARE, OTHER, SELFPAY | END 2023-12-11 23:55 | disposition home or self-care (01) | LOC: MM 01:29 | PROVIDERS: PCP Internal Medicine; Visit Provider Internal Medicine | DX: Z51.81 Encounter for therapeutic drug level monitoring (principal); Z79.01 Long term (current) use of anticoagulants | CPT/HCPCS: 85610; G0463 ==

== ENCOUNTER 2023-12-05 09:54 | Observation (INO) | payer MEDICARE, OTHER, SELFPAY ==
[2023-12-05 10:02] VITALS: BP 112/60; PULSE 74; TEMP 36.6; O2SAT 99; BMI 43.1
--- NOTE | 2023-12-05 10:17 | XR_ITS ---
The [address] [address] Patient Name: DEB DAVIS MRN: [id number] date: 1945 Sex: M Assigned Patient Location: ER Current Patient Location: ER Accession/Order Number: [id number] Exam Date: 12/05/2023 10:58 Report Date: 12/05/2023 11:14 At the request of: HELLEN KLEIN Procedure: XR tibia fibula RT 2V PROCEDURE: XR tibia fibula RT 2V HISTORY: swelling COMPARISON: None. FINDINGS: BONES:Total knee replacement. No bone fracture, dislocation, periosteal reaction, or suspicious cortical thickening. SOFT TISSUES:Skin thickening anterior to the mid and distal tibia. Skin surface markers localize the wound to lie anterior to the mid tibia. EFFUSION:None visible. OTHER: Negative. XR/XR tibia fibula RT 2V IMPRESSION: 1. Anterior soft tissue thickening/edema. No radiopaque foreign body or appreciable subcutaneous free air. 2. No appreciable bone involvement. Electronically authenticated by: JAMIE FAROOQ Date: 12/05/2023 11:14
--- NOTE | 2023-12-05 10:23 | PC.NURSE ---
complains of right lower leg injury onset 2 weeks ago, walking and hit right lower leg into the step, at this time this patient has no active bleeding and or drainage
[2023-12-05 10:49] LABS: Basophils Percent Auto 0.6 % (0.2-2.0); Eosinophils Absolute Auto 0.1 10^3/uL (0.0-0.7); Eosinophils Percent Auto 1.7 % (0.9-7.0); Hematocrit 42.7 % (42.0-54.0); Hemoglobin 13.9 g/dL (14.0-18.0); Immature Granulocytes Abs Auto 0.01 10^3/uL (0.00-0.03); Immature Granulocytes Pct Auto 0.2 % (0.0-0.5); Lymphocytes Absolute Auto 1.4 10^3/uL (1.2-3.8); Lymphocytes Percent Auto 21.3 % (20.5-60.0); Mean Corpuscular HGB Conc 32.6 g/dL (29.9-35.2); Mean Corpuscular Hemoglobin 29.8 pg (25.9-34.0); Mean Corpuscular Volume 91.4 fL (80.0-94.0); Mean Platelet Volume 9.9 fL (9.5-13.5); Monocytes Absolute Auto 0.5 10^3/uL (0.3-0.8); Monocytes Percent Auto 8.1 % (1.7-12.0); Neutrophils Absolute Auto 4.5 10^3/uL (1.4-6.5); Neutrophils Percent Auto 68.1 % (43.0-75.0); Platelet Count 216 10^3/uL (150-450); Red Blood Count 4.67 10^6/uL (4.70-6.10); Red Cell Distribution Width 14.6 % (11.0-15.0); White Blood Count 6.6 10^3/uL (4.0-11.0)
[2023-12-05 10:55] LABS: Erythrocyte Sedimentation Rate 46 mm/hr (<=20)
[2023-12-05 11:06] LABS: Alanine Aminotransferase 28 U/L (16-63); Albumin Globulin Ratio 0.9; Albumin Level 3.2 g/dL (3.4-5.0); Alkaline Phosphatase 95 U/L (46-116); Anion Gap 10.9; Aspartate Amino Transferase 21 U/L (15-37); BUN Creatinine Ratio 17.9; Bilirubin Total 0.7 mg/dL (0.2-1.0); C Reactive Protein <0.50 mg/dL (<=0.50); Calcium 8.8 mg/dL (8.5-10.1); Carbon Dioxide 28.2 mmol/L (21.0-32.0); Chloride 100 mmol/L (98-107); Estimated GFR (African America >60 (>=60); Estimated GFR (Non-African Ame >60 (>=60); Globulin 3.6 g/dL; Glucose 124 mg/dL (74-106); Potassium 4.1 mmol/L (3.5-5.1); Sodium 135 mmol/L (136-145); Total Protein 6.8 g/dL (6.4-8.2)
--- NOTE | 2023-12-05 12:11 | PC.NURSE ---
patient updated about blood cultures and IV ATB then possible admission
--- NOTE | 2023-12-05 12:30 | ED.LOWEXI1 ---
HPI HPI - Extremity Injury (Lower) General Chief Complaint: Extremity Injury, Lower Stated Complaint: LOWER EXTREMITY WOUND Time Seen by Provider: 12/05/23 10:13 Source: patient Mode of arrival: walk-in Limitations: no limitations History of Present Illness HPI Narrative: Patient presented to us with a right leg swelling that he developed over the last 1 week after he had his right leg with a last step of stairs, the patient mentioned that the leg has been swollen and tender since then he actually had this bulge there that his burst and started cleaning and it was draining some pus The patient denies any fever or chills he mentioned that he chronically have his right leg more swollen than the left Related Data Home Medications ?Medication ?Instructions ?Recorded ?Confirmed allopurinol 300 mg tablet 300 mg PO DAILY 12/05/23 12/05/23 furosemide 40 mg tablet 40 mg PO DAILY 12/05/23 12/05/23 hydrocortisone 2.5 % topical cream 1 applic topical DAILY 12/05/23 12/05/23 metformin 500 mg tablet 500 mg PO DAILY 12/05/23 12/05/23 potassium chloride 20 mEq 20 meq PO DAILY 12/05/23 12/05/23 tablet,extended release pravastatin 80 mg tablet 80 mg PO DAILY 12/05/23 12/05/23 warfarin 4 mg tablet 4 mg PO BEDTIME 12/05/23 12/05/23 Allergies Allergy/AdvReac Type Severity Reaction Status Date / Time No Known Drug Allergies Allergy Verified 03/16/23 12:53 Opioid HPI Opioid Management Most Recent Pain and Opioid Data: Last Pain Scale 2 12/05/23 10:25 Last ED Pain Assessment 12/05/23 10:25 Review of Systems ROS Status of ROS 10 or more systems reviewed and unremarkable except as noted in history and below PFSH PFSH Social History Little interest or pleasure in doing things: not at all Feeling down, depressed, or hopeless: not at all Exam Narrative Exam Narrative: Nurses notes and vital signs reviewed and patient is not hypoxic. General: Well-appearing and in no apparent distress. Skin: Warm, dry, no pallor noted. No rash. Head: Normocephalic, atraumatic. Neck: Supple, non-tender. Eye: Pupils are equal, round and EOMI. No scleral icterus. Ears, Nose, Mouth, and Throat: TM are clear, no nasal mucosal hypertrophy. Oral mucosa is moist, no posterior oropharynx erythema, uvula is mid-line Cardiovascular: Regular Rate and Rhythm without murmur, gallop or rub. Respiratory: No accessory muscle use or respiratory distress. Lungs are clear to auscultation, no wheezing, rales or rhonchi Chest Wall: no tenderness Back: No midline thoracic or lumbar vertebral tenderness. No CVA tenderness Musculoskeletal: normal ROM, there is significant swelling of the right leg compared to the left there is a good vascular supply to the right leg and the patient have an ulcer at the mid of the right leg just at the mid of the tibia that is almost 2 x 3 cm covered with a piece of skin with fluctuation and there is warmth of the leg GI: Abdomen is soft, non-distended. Normal bowel sounds. No masses appreciated. No tenderness to palpation. No rebound, guarding, or rigidity noted. Neurological: A&O x4. No cranial nerve dysfunction observed. No truncal ataxia. Moves all extremities. Sensation intact. Psychiatric: Cooperative and interactive. Normal mood and affect. Constitutional Vital Signs, click to edit/add: Last Vital Signs Temp 97.9 F 12/05/23 10:02 Pulse 74 12/05/23 10:02 Resp 19 12/05/23 10:02 BP 112/60 12/05/23 10:02 Pulse Ox 99 12/05/23 10:02 O2 Del Method Room Air 12/05/23 10:02 Course Vital Signs Vital signs: Vital Signs Temperature 97.9 F 12/05/23 10:02 Pulse Rate 74 12/05/23 10:02 Respiratory Rate 19 12/05/23 10:02 Blood Pressure 112/60 12/05/23 10:02 Pulse Oximetry 99 12/05/23 10:02 Oxygen Delivery Method Room Air 12/05/23 10:02 Temperature 97.9 F 12/05/23 10:02 Pulse Rate 74 12/05/23 10:02 Respiratory Rate 19 12/05/23 10:02 Blood Pressure 112/60 12/05/23 10:02 Pulse Oximetry 99 12/05/23 10:02 Oxygen Delivery Method Room Air 12/05/23 10:02 MDM - Extremity Injury (Lower) MDM Narrative Medical decision making narrative: The patient CBC and chemistry showed no acute significant pathology but he is a diabetic patient with his presentation and significant for possible cellulitis although he does take Coumadin And he could have developed hematoma that got infected X-ray of the right leg shows soft tissue swelling Patient was started on Unasyn he will be admitted for further treatment of cellulitis and infected leg ulcer in a diabetic patient Patient case was discussed with and he agreed on the above-mentioned plan Lab Data Labs: Lab Results 12/05/23 Range/Units 10:36 WBC 6.6 (4.0-11.0) 10^3/uL RBC 4.67 L (4.70-6.10) 10^6/uL Hgb 13.9 L (14.0-18.0) g/dL Hct 42.7 (42.0-54.0) % MCV 91.4 (80.0-94.0) fL MCH 29.8 (25.9-34.0) pg MCHC 32.6 (29.9-35.2) g/dL RDW 14.6 (11.0-15.0) % Plt Count 216 (150-450) 10^3/uL MPV 9.9 (9.5-13.5) fL Neut % (Auto) 68.1 (43.0-75.0) % Lymph % (Auto) 21.3 (20.5-60.0) % [place] % (Auto) 8.1 (1.7-12.0) % Eos % (Auto) 1.7 (0.9-7.0) % Baso % (Auto) 0.6 (0.2-2.0) % Neut # (Auto) 4.5 (1.4-6.5) 10^3/uL Lymph # (Auto) 1.4 (1.2-3.8) 10^3/uL [place] # (Auto) 0.5 (0.3-0.8) 10^3/uL Eos # (Auto) 0.1 (0.0-0.7) 10^3/uL Baso # (Auto) 0.0 (0.0-0.1) 10^3/uL Abs Immat Gran (auto) 0.01 (0.00-0.03) 10^3/uL Imm/Tot Granulo (auto) 0.2 (0.0-0.5) % ESR 46 H (<=20) mm/hr Sodium 135 L (136-145) mmol/L Potassium 4.1 (3.5-5.1) mmol/L Chloride 100 (98-107) mmol/L Carbon Dioxide 28.2 (21.0-32.0) mmol/L Anion Gap 10.9 BUN 14.0 (7.0-18.0) mg/dL Creatinine 0.78 (0.70-1.30) mg/dL Est GFR ( Amer) >60 (>=60) Est GFR (Non-Af Amer) >60 (>=60) BUN/Creatinine Ratio 17.9 Glucose 124 H (74-106) mg/dL Calcium 8.8 (8.5-10.1) mg/dL Total Bilirubin 0.7 (0.2-1.0) mg/dL AST 21 (15-37) U/L ALT 28 (16-63) U/L Alkaline Phosphatase 95 (46-116) U/L C-Reactive Protein <0.50 (<=0.50) mg/dL Total Protein 6.8 (6.4-8.2) g/dL Albumin 3.2 L (3.4-5.0) g/dL Globulin 3.6 g/dL Albumin/Globulin Ratio 0.9 Discharge Plan Discharge Chief Complaint: Extremity Injury, Lower Clinical Impression: Infected traumatic leg ulcer, Cellulitis Patient Disposition: Admitted As Inpatient Time of Disposition Decision: 12:29
[2023-12-05] MEDS: AMPICILLIN SODIUM/SULBACTAM NA 3 GM in 0.9 % SODIUM CHLORIDE 100 ML IV (12:32)
[2023-12-05 12:42] VITALS: BP 143/77; PULSE 73; O2SAT 98
[2023-12-05 12:43] LABS: INR 3.49; Prothrombin Time 32.7 sec (9.0-11.6)
[2023-12-05 13:16] VITALS: BP 160/85; PULSE 72; TEMP 36.6; O2SAT 98; BMI 43.0
[2023-12-05 13:22] LABS: Estimated Average Glucose 126 mg/dL
--- NOTE | 2023-12-05 13:54 | PM.HP ---
HPI H&P: HPI History of Present Illness Chief complaint: LOWER EXTREMITY WOUND/infected leg ulcer Narrative: 78 y o male presented to ED with right leg swelling/erythema and pain. He was doing laundry at home 2 weeks when he bumped his leg against the foot steps and injured himself. He has noticed skin surrounding the initial impact/injured site is getting increasingly red/swollen with clear drainage. He came to ED for further eval as his symptoms were progressively worsening. He denies fever/chills. He has hx of T2 DM that is well controlled. He did not take oral abx for his infection. He has prior hx of multiple foot surgeries b/l and his right leg always looks bigger compared to left. He has chronic skin discoloration of b/l lower legs anteriorly but left leg definitely looks worse than usual according to the patient. Evaluated in ED, elevated ESR noted, XR - no evidence of bony destruction/OM. Opioid HPI Opioid Management Most Recent Pain and Opioid Data: Last Pain Scale 2 12/05/23 10:25 Last ED Pain Assessment 12/05/23 10:25 Last ORT Total Score 0 12/05/23 13:16 Last ORT Risk Category Low Risk 12/05/23 13:16 Review of Systems ROS Status of ROS 10 or more systems reviewed and unremarkable except as noted in history and below [facility] Medical History (Updated 12/05/23 @ 14:03 by Shaikh Jose Alberto MD) Type 2 diabetes mellitus ?E11.9 - Type 2 diabetes mellitus without complications (ICD-10) Hyperlipemia ?E78.5 - Hyperlipidemia, unspecified (ICD-10) A-fib ?I48.91 - Unspecified atrial fibrillation (ICD-10) Surgical History (Updated 12/05/23 @ 13:37 by Zina Reyes RN) History of cardiac radiofrequency ablation ?Z98.890 - Other specified postprocedural states (ICD-10) History of bilateral knee replacement ?Z96.653 - Presence of artificial knee joint, bilateral (ICD-10) H/O hernia repair ?Z98.890 - Other specified postprocedural states (ICD-10) ?Z87.19 - Personal history of other diseases of the digestive system (ICD-10) Family History (Updated 12/05/23 @ 13:40 by Zina Reyes RN) Mother Family history of CHF (congestive heart failure) Father Family history of diabetes mellitus Social History (Updated 12/05/23 @ 13:44 by Zina Reyes RN) Within the past year, how often did you have a drink containing alcohol: 2-3 times a week Smoking status: Former smoker Non-prescribed substance use: denies use Highest level of school completed/degree received: high school graduate Little interest or pleasure in doing things: not at all Feeling down, depressed, or hopeless: not at all Meds Home Medications and Allergies Home Medications ?Medication ?Instructions ?Recorded ?Confirmed ?Type allopurinol 300 mg tablet 300 mg PO DAILY 12/05/23 12/05/23 History furosemide 40 mg tablet 40 mg PO DAILY 12/05/23 12/05/23 History hydrocortisone 2.5 % topical cream See Rx Instructions topical 12/05/23 12/05/23 History .COMPLEX metformin 500 mg tablet 500 mg PO DAILY 12/05/23 12/05/23 History potassium chloride 20 mEq 20 meq PO DAILY 12/05/23 12/05/23 History tablet,extended release pravastatin 80 mg tablet 80 mg PO DAILY 12/05/23 12/05/23 History warfarin 4 mg tablet 4 mg PO MOTUTHFRSA@219912/05/23 12/05/23 History warfarin 6 mg tablet 6 mg PO SUWE@219912/05/23 12/05/23 History Allergies Allergy/AdvReac Type Severity Reaction Status Date / Time No Known Drug Allergies Allergy Verified 03/16/23 12:53 Exam Constitutional Vital Signs, click to edit/add: Last Vital Signs Temp 97.9 F 12/05/23 10:02 Pulse 73 12/05/23 12:42 Resp 18 12/05/23 12:42 BP 143/77 H 12/05/23 12:42 Pulse Ox 98 12/05/23 12:42 O2 Del Method Room Air 12/05/23 12:42 Documenting provider has reviewed patient's vital signs: yes Common normals: no apparent distress and oriented x3 General appearance: cooperative HENMT Common normals: normocephalic and head/scalp atraumatic Head and scalp: normocephalic and atraumatic Eye Common normals: conjunctivae normal and no scleral icterus Conjunctiva: conjunctiva(e) normal Respiratory Common normals: normal respiratory effort and clear to auscultation bilaterally Effort & inspection: able to speak in complete sentences Auscultation: clear to auscultation bilaterally Cardio Common normals: regular rate, S1 normal heart sound and S2 normal heart sound Rate: regular rate Heart sounds: S1 normal and S2 normal GI Common normals: Normal to inspection, nondistended, normoactive bowel sounds present, soft to palpation, non-tender and no hepatosplenomegaly Palpation: soft and no hepatosplenomegaly Extremity Other: Chronic skin discoloration b/l anteriorly lower legs. Right leg - ulcer with old dried up blood. Small swelling that is fluctuant. Surrounding skin is erythematous and tendern Neuro Common normals: oriented x3, moves all extremities and no focal motor deficits Psych Common normals: mental status grossly normal, denies hallucinations, denies homicidal ideation and denies suicidal ideation Results Labs Labs: Short CBC 12/05/23 Range/Units 10:36 WBC 6.6 (4.0-11.0) 10^3/uL Hgb 13.9 L (14.0-18.0) g/dL Hct 42.7 (42.0-54.0) % Plt Count 216 (150-450) 10^3/uL BMP 12/05/23 10:36 Sodium 135 L Potassium 4.1 Chloride 100 Carbon Dioxide 28.2 BUN 14.0 Creatinine 0.78 Glucose 124 H Calcium 8.8 Liver Function 12/05/23 Range/Units 10:36 Total Bilirubin 0.7 (0.2-1.0) mg/dL AST 21 (15-37) U/L ALT 28 (16-63) U/L Alkaline Phosphatase 95 (46-116) U/L Albumin 3.2 L (3.4-5.0) g/dL Assessment and Plan Assessment and Plan (1) Cellulitis: Assessment and Plan: Started on Vanc/zosyn. F/u blood cx. Podiatry consulted. US ordered to r/o DVT/drainable abscess Qualifiers: Site of cellulitis: extremity Site of cellulitis of extremity: lower extremity Laterality: right Qualified Code(s): L03.115 - Cellulitis of right lower limb (2) Infected traumatic leg ulcer: Assessment and Plan: No concern for OM on XR and clinical exam. On IV abx. Podiatry consult. Qualifiers: Laterality: right Non-pressure ulcer stage: limited to breakdown of skin Qualified Code(s): L97.911 - Non-pressure chronic ulcer of unspecified part of right lower leg limited to breakdown of skin; L08.9 - Local infection of the skin and subcutaneous tissue, unspecified (3) Type 2 diabetes mellitus: Assessment and Plan: On metformin as outpatient. SSI while inpatient. Qualifiers: Diabetes mellitus fpc insulin use: without fpc use Diabetes mellitus complication status: without complication Qualified Code(s): E11.9 - Type 2 diabetes mellitus without complications (4) A-fib: Assessment and Plan: On Coumadin for stroke px. In NSR. Qualifiers: Atrial fibrillation type: paroxysmal Qualified Code(s): I48.0 - Paroxysmal atrial fibrillation (5) Hyperlipemia: Assessment and Plan: cw pravastatin Qualifiers: Hyperlipidemia type: unspecified Qualified Code(s): E78.5 - Hyperlipidemia, unspecified
--- NOTE | 2023-12-05 14:01 | US_ITS ---
The [address] [address] Patient Name: DEB DAVIS MRN: [id number] date: 1945 Sex: M Assigned Patient Location: [place] Current Patient Location: [place] Accession/Order Number: [id number] Exam Date: 12/05/2023 19:05 Report Date: 12/05/2023 21:04 At the request of: SHAIKH ANDREW Procedure: US venous doppler LE RT US venous doppler LE RT, 12/05/2023 6:05 PM CDT: History: cellulitis. Comparison: None. Technique: Grayscale, color Doppler, and spectral Doppler imaging of the deep veins of the right lower extremity were performed. Findings: The deep veins of the right lower extremity demonstrate normal compression, Spectral flow, and color Doppler signal. There is no evidence of deep vein thrombosis. US/US venous doppler LE RT Impression: No evidence of deep vein thrombosis within the right lower extremity. Electronically authenticated by: GERRY CHARLTON Date: 12/05/2023 21:04
[2023-12-05 16:09] LABS: Glucometer 89 mg/dL (74-106)
--- NOTE | 2023-12-05 16:52 | W.PM.WC ---
Wound Consult Note Assessment and Plan (1) Cellulitis: Qualifiers: Laterality: right Site of cellulitis: extremity Site of cellulitis of extremity: lower extremity Qualified Code(s): L03.115 - Cellulitis of right lower limb (2) Infected traumatic leg ulcer: Reason for Consult: cellulitis with open wound Qualifiers: Laterality: right Non-pressure ulcer stage: limited to breakdown of skin Qualified Code(s): L97.911 - Non-pressure chronic ulcer of unspecified part of right lower leg limited to breakdown of skin; L08.9 - Local infection of the skin and subcutaneous tissue, unspecified (3) Type 2 diabetes mellitus: 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 He developed cellulitis and came to the ER as his primary care could not get him in for a few weeks . Denies pain unless directly touched. RLE is red, warm. Area of ulceration is approximately 7acu9pi. Distal area of ulceration is eschar covered, proximal area is fluctuant. Updated Dr. Feng with assessment. Recommendations: Xeroform gauze and ABD pad to right lower leg ulceration daily Elevate leg while resting Photos take per bedside RN. Orders in chart Please call [phone] for any questions or concerns. Demetri Mclean, RN, CWON
[2023-12-05] MEDS: 0.9 % SODIUM CHLORIDE 250 ML 10 ML IV (16:57)
[2023-12-05] MEDS: VANCOMYCIN HCL 1,250 MG in 0.9 % SODIUM CHLORIDE 250 ML 166.667 MG IV (16:58)
[2023-12-05 19:38] VITALS: O2SAT 92
[2023-12-05 19:39] VITALS: BP 145/77; PULSE 68; TEMP 36.4; O2SAT 92
[2023-12-05] MEDS: PIPERACILLIN SODIUM/TAZOBACTAM 3.375 GM in 0.9 % SODIUM CHLORIDE 50 ML IV (20:00)
[2023-12-05 20:07] LABS: Glucometer 93 mg/dL (74-106)
[2023-12-05] MEDS: ATORVASTATIN CALCIUM 20 MG TABLET 80 MG PO (21:16)
[2023-12-06] VITALS (12 sets, daily range): BP systolic 121–158; BP diastolic 69–91; PULSE 67–84; TEMP 36.6–37.1; O2SAT 93–96
[2023-12-06] MEDS: VANCOMYCIN HCL 1,250 MG in 0.9 % SODIUM CHLORIDE 250 ML 166 MG IV (03:18)
[2023-12-06] MEDS: PIPERACILLIN SODIUM/TAZOBACTAM 3.375 GM in 0.9 % SODIUM CHLORIDE 50 ML IV ×3 (05:07→20:09)
--- OUTSIDE RECORDS SUMMARY | 2023-12-06 06:08 | XMS_ITS | CCD ---
Author Organization [facility] Care Team Providers Care Unit Secretary Name Role Phone Declan Swanson DO Primary Care Provider Bruce Shine II Unavailable [phone] Declan Swanson DO Primary Care Provider Declan Swanson DO Primary Care Provider Declan Swanson Unavailable ANDREW, PIERRE H Attending Unavailable BALL, DR LOMELI Primary Care Unavailable FAWWAD, PIERRE H Admitting Unavailable BALL, DR LOMELI Primary Care Unavailable KRYSTAL, EDGARDO Silvestre Attending Unavailable HIGHLANDER, EDGARDO Silvestre Admitting Unavailable BALL, DR LOMELI Primary Care [...] LOMELI Primary Care Unavailable FAWWAD, PIERRE H Admitting Unavailable BALL, [...] Unavailable BALL, DR LOMELI Attending Unavailable FAWWAD, PIERRE H Admitting Unavailable BALL, DR LOMELI Primary Care Unavailable FAWWAD, PIERRE H Attending Unavailable BALL, DR LOMELI Primary Care Unavailable BALL, DR LOMELI Admitting Unavailable BALL, DR LOMELI Consulting Unavailable BALL, DR LOMELI Attending Unavailable DO Declan Swanson Primary Care Provider [phone] MD Bruce Shine II Attending Provider [phone] Ruben Celis Unavailable MD Ruben Celis Attending Provider [phone] Ruben Celis Admitting Unavailable Ruben Celis Attending Unavailable Declan Swanson Primary Care Unavailable Declan Swanson Primary Care Unavailable Bruce Shine II Admitting UnavailBruce Cui II Attending UnavailRuben Saravia Admitting Unavailable Ruben Celis Attending Unavailable Declan Swanson Primary Care Unavailable Declan Swanson DO Primary Care Provider JARROD DIALLO Attending Unavailable JARROD DIALLO Attending Unavailable JOHN CHURCHILL Attending Unavailable JARROD DIALLO Attending Unavailable JOHN CHURCHILL Attending Unavailable VENKAT EVANS Attending Unavailable DECLAN SWANSON Primary Care Unavailable DECLAN SWANSON Primary Care Unavailable SHAMA IBANEZ Attending Unavailable Allergies Allergy Classification Reported Allergen(s) Allergy Type Date of Onset Reaction(s) Facility (20 sources) Latex Drug allergy 4 Unknown, Unknown Reaction [facility] (20 sources) Iodinated contrast media (substance) Drug allergy Unknown [employer] Other (3 sources) Iodinated Contrast Media Allergy to substance 4 Unknown Reaction [facility] Medications Current Medications Medication Drug Class(es) Dates Sig (Normalized) Sig (Original) acetaminophen 325 mg oral capsule (20 sources) Start: 11-24-2022 take 1 capsule by mouth every six hours as needed for pain Tylenol 325 MG 1 capsule as needed Orally every 6 hrs as needed for pain for 30 days Nov, Active ACETAMINOPHEN (T YLENOL 8 HOUR ORAL) Take by mouth as needed. 325 mg - 500 mg only as needed (not more than once per day) Active Acetaminophen No t-Taking/PRN Acetaminophen No t-Taking [...] Active Start: 11-04-2022 take [address] [facility] every twelve hours Cephalexin 500 MG 1 capsule Orally bid for 7 days Oct, Not-Taking/PRN COMPOUNDED PRESCRIPTION (20 sources) COMPOUNDED PRESC RIPTION Skin cream - patient unsure of name. Active COMPOUNDED PRESC RIPTION Skin cream - patient unsure of name. 0 Active Comment on above: Skin cream - patient unsure of name. doxycycline hyclate 100 mg oral capsule (8 sources) Tetracycline-clas s Drug Start: 06-23-2023 End: 06-28-2023 take 100 mg by mouth twice daily Doxycycline Hyclate Active 100 MG PO Twice daily 10 June 28, 2023 5:26pm Start: 01-02-2023 take [address] [facility] every twelve hours Doxycycline Hyclate 100 MG 1 capsule Orally Twice a day for 5 days Dec, Active furosemide 40 mg oral tablet (20 sources) Loop Diuretic Start: 05-04-2017 take 1 tablet by mouth once daily furosemide (LASIX) 40 mg tablet Take 1 tablet by mouth once daily. 90 tablet 3 11/24/2017 Active Start: 12-16-2016 End: 05-04-2017 take 20 mg by mouth once daily Furosemide Discontinued 20 MG PO Daily December 16, 2016 12:00am May 04, 2017 1:03pm Comment on above: Take 1 tablet by rod th once daily. metFORMIN hydrochloride 500 mg oral tablet (20 sources) Biguanide Start: 7 take 500 mg by mouth once daily Metformin Active 500 MG PO Daily December 16, 2016 12:00am Comment on above: Take 500 mg by mouth daily with breakfast. mupirocin 0.02 mg/mg topical ointment (20 sources) RNA Synthetase Inhibitor Antibacterial Start: 3 Mupirocin 2 % 1 application Externally Twice a day for 5 days Sep, Active perflutren lipid microspheres 1.3 mL in NaCl (PF) 0.9% 10 mL injection (DEFINITY) (20 sources) Start: 12-31-2021 End: 04-01-2023 perflutren lipid microspheres 1.3 mL in NaCl (PF) 0.9% 10 mL injection (DEFINITY) potassium chloride 20 meq extended release oral tablet (20 sources) Start: 12-16-2016 take 20 mEq by mouth once daily Potassium Chloride Active 20 MEQ PO Daily December 16, 2016 12:00am Start: 07-25-2015 take 1 tablet by rod th once daily potassium chloride ER (K-DUR, KLOR-CON) 20 mEq tablet Take 1 tablet by mouth once daily. 30 tablet 6 07/25/2015 Active Comment on above: Take 1 tablet by rod th once daily. pravastatin sodium 80 mg oral tablet (20 sources) HMG-CoA Reductase Inhibitor Start: 6 take 1 tablet by mouth once daily at bedtime pravastatin (PRAVACHOL) 80 mg tablet Take 1 tablet by mouth daily at bedtime. 90 tablet 3 06/09/2015 Active Comment on above: Take 1 tablet by rod th daily at bedtime. predniSONE 20 mg oral tablet (5 sources) Start: 4 Prednisone Active 20 MG PO As Directed 9 August 09, 2023 12:00am 1 tab bid w/ food x 3 days, then qd w/ food x 3 days Start: 01-03-2023 take 1 tablet by [facility] twice daily predniSONE 10 MG 1 tablet [...] Start: 11-26-2019 Start: 11-26-2019 Kenalog -40 mg 15 Nov, 2019 40 mg Start: 03-12-2019 Start: 03-12-2019 Kenalog [...] 17, 2020 12:47pm take [address] [facility] once daily warfarin (COUMADIN) 1 mg tablet Indications: Atrial fibrillation, persistent (HCC) Take 4 mg by mouth once daily. Active Warfarin 4mg 4 m g 1 [...] on above: Take 1 tablet by rod th twice daily. aspirin 81 mg delayed release oral tablet (20 sources) Platelet Aggregation Inhibitor, Nonsteroidal Anti-inflammatory Drug take 1 tablet by mouth every twenty-four hours Aspirin 81 MG 1 tablet Orally Once a day Not-Taking/PRN hydroCHLOROthiazide 50 mg oral tablet (6 sources) Thiazide Diuretic Start: 08-19-19 18 End: 08-18-19 21 take 1 tablet by mouth once daily Hydrochlorothiazide Discontinued 1 TAB PO Daily August 18, 2017 12:00am August 17, 2020 12:45pm sotalol hydrochloride 80 mg oral tablet (6 sources) Antiarrhythmic Start: 12-17-19 End: 08-18-19 21 take 80 mg by mouth once daily Sotalol Discontinued 80 MG PO Daily December 16, 2016 12:00am August 17, 2020 12:46pm tamsulosin hydrochloride 0.4 mg oral capsule (20 sources) alpha-Adrenergic Mohan Start: 12-14-19 End: 08-18-19 21 take 0.4 mg by [...] Onset: 03-09-2022 Chronic Congestive heart failure; nonhypertensive (11 sources) Acute on chronic diastolic heart failure; 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: [Acute on chronic diastolic (congestive) heart failure] Onset: 09-23-2021 Chronic Coronary atherosclerosis and other heart disease (20 sources) Coronary atherosclerosis; 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: [Atherosclerotic heart disease of [place] coronary artery without angina pectoris] Onset: 07-10-2015 [...] aftercare (2 sources) Patient encounter status; 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: [snf (current) use of anticoagulants] Episodic Other aftercare (1 source) intermediate frame tender (current) use of anticoagulants; 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: [SENIOR LIVING CURRNT USE ANTICOAGULANTS] Onset: 08-10-2022 Episodic Other aftercare (5 sources) Encounter for therapeutic drug level monitoring; 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: [ENC THERAPEUTC DRUG LEVL MONITORING] Onset: 07-09-2022 Episodic Other aftercare (2 sources) Other chcf (current) drug therapy Episodic Other aftercare (1 source) Drug therapy finding; 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: [snf (current) use of anticoagulants] 07-04-2023 Episodic Other [...] and visceral atherosclerosis (20 sources) 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 RYANHANNAH DURANDEDITH Walls ([id number]) 1945 [place] Date Time Provider Department 11/15/23 RUBEN DENTON During your visit today, we recorded the following information about you: Bryan Dwyer 11/15/2023 2:37 PM Signed Documentation scanned into EP outside database Scanned INR results into [facility] Allergies As of Date: 11/15/2023 (No Known Allergies) Date Reviewed: 07/04/2023 Reviewed by: Delilah Novoa LPN - Fully Assessed Reason for Visit: Received Outside Medical Records [[id number]] Prescriptions as of 11/15/2023 - warfarin (COUMADIN) 1 mg tablet Take [...] once daily. Problem List As Of Date 11/15/2023 Noted Resolved CHRISTIAN (obstructive sleep apnea) [G47.33] 01/07/2014 HTN (hypertension) [I10] 01/07/2014 Dyslipidemia [E78.5] 01/07/2014 Atrial fibrillation (HCC) [I48.91] 07/08/2014 Atherosclerosis of [place] coronary artery of na*07/10/2015 Diabetes mellitus type 2, controlled, without c*07/10/2015 Atrial fibrillation, persistent (HCC) [I48.19] 07/22/2015 Paroxysmal atrial fibrillation (HCC) [I48.0] 12/04/2015 Paroxysmal atrial flutter (HCC) [I48.92] 05/30/2018 Obesity, Class III, BMI >= 40 [E66.01] 10/23/2019 Chronic diastolic heart failure (HCC) [I50.32] 06/05/2023 Mixed hyperlipidemia [E78.2] 06/05/2023 Encounter Status:Closed by BRYAN DWYER on 11/15/23 [facility] 09-19-2023 CNPN Telephone (CARDMN) RYANHANNAHJORGE W ([id number]) 1945 [place] Date Time Provider Department 09/19/23 RUBEN DENTON During your visit today, we recorded the following information about you: Bryan Dwyer 09/19/2023 3:52 PM Signed Documentation scanned into EP outside database Scanned INR results into [facility] Allergies As of Date: 09/19/2023 (No Known Allergies) Date Reviewed: 07/04/2023 Reviewed by: Delilah Novoa LPN - Fully Assessed Reason for Visit: Received Outside Medical Records [3574] Prescriptions as of 09/19/2023 - warfarin (COUMADIN) 1 mg tablet Take [...] once daily. Problem List As Of Date 09/19/2023 Noted Resolved CHRISTIAN (obstructive sleep apnea) [G47.33] 01/07/2014 HTN (hypertension) [I10] 01/07/2014 Dyslipidemia [E78.5] 01/07/2014 Atrial fibrillation (HCC) [I48.91] 07/08/2014 Atherosclerosis of [place] coronary artery of na*07/10/2015 Diabetes mellitus type 2, controlled, without c*07/10/2015 Atrial fibrillation, persistent (HCC) [I48.19] 07/22/2015 Paroxysmal atrial fibrillation (HCC) [I48.0] 12/04/2015 Paroxysmal atrial flutter (HCC) [I48.92] 05/30/2018 Obesity, Class III, BMI >= 40 [E66.01] 10/23/2019 Chronic diastolic heart failure (HCC) [I50.32] 06/05/2023 Mixed hyperlipidemia [E78.2] 06/05/2023 Encounter Status:[facility]CARDMN[facility] JORGE DAVIS ([id number]) 1945 [place] Date Time Provider Department 08/22/23 RUBEN DENTON During your visit today, we recorded the following information about you: Bryan Dwyer 08/22/2023 4:53 PM Signed Documentation scanned into EP outside database Scanned INR results into epic Allergies As of Date: 08/22/2023 (No Known Allergies) Date Reviewed: 07/04/2023 Reviewed by: Delilah Novoa LPN - Fully Assessed Reason for Visit: Received Outside Medical Records [3572] Prescriptions as of 08/22/2023 - warfarin (COUMADIN) 1 mg tablet Take [...] once daily. Problem List As Of Date 08/22/2023 Noted Resolved CHRISTIAN (obstructive sleep apnea) [G47.33] 01/07/2014 HTN (hypertension) [I10] 01/07/2014 Dyslipidemia [E78.5] 01/07/2014 Atrial fibrillation (HCC) [I48.91] 07/08/2014 Atherosclerosis of [place] coronary artery of na*07/10/2015 Diabetes mellitus type 2, controlled, without c*07/10/2015 Atrial fibrillation, persistent (HCC) [I48.19] 07/22/2015 Paroxysmal atrial fibrillation (HCC) [I48.0] 12/04/2015 Paroxysmal atrial flutter (HCC) [I48.92] 05/30/2018 Obesity, Class III, BMI >= 40 [E66.01] 10/23/2019 Chronic diastolic heart failure (HCC) [I50.32] 06/05/2023 Mixed hyperlipidemia [E78.2] 06/05/2023 Encounter Status:Closed by BRYAN DWYER on 08/22/23 [facility] 07-25-2023 CNPN Telephone (PRESLEY) JORGE DAVIS ([id number]) 1945 [place] Date Time Provider Department 07/25/23 RUBEN DENTON During your visit today, we recorded the following information about you: Bryan Dwyer 07/25/2023 10:22 AM Signed Documentation scanned into EP outside database Scanned INR results into Epic Allergies As of Date: 07/25/2023 (No Known Allergies) Date Reviewed: 07/04/2023 Reviewed by: Delilah Novoa LPN - Fully Assessed Reason for Visit: Received Outside Medical Records [3572] Cmt: INR Prescriptions as of 07/25/2023 - [...] Atrial fibrillation (HCC) [I48.91] 07/08/2014 Atherosclerosis of [place] coronary artery of na*07/10/2015 Diabetes mellitus type 2, controlled, without c*07/10/2015 Atrial fibrillation, persistent (HCC) [I48.19] 07/22/2015 Paroxysmal atrial fibrillation (HCC) [I48.0] 12/04/2015 Paroxysmal atrial flutter (HCC) [I48.92] 05/30/2018 Obesity, Class III, BMI >= 40 [E66.01] 10/23/2019 Chronic diastolic heart failure (HCC) [I50.32] 06/05/2023 Mixed hyperlipidemia [E78.2] 06/05/2023 Encounter Status:Closed by BRYAN DWYER on 07/25/23 [facility] Luis 07-04-2023 CNOV Office Visit (CAEPAV ) JORGE DAVIS ([id number]) 1945 [place] Date Time Provider [...] 07/04/2023 10:19 AM Signed [facility]al Crespo Department of Cardiovascular Medicine SECTION OF CARDIAC PACING and ELECTROPHYSIOLOGY OUTPATIENT VISIT DATE July 04, 2023 OUTPATIENT VISIT TYPE ESTABLISHED PRIMARY CARE PHYSICIAN: Declan Swanson (Peggy) [address] [place] [address] CHIEF COMPLAINT: Cardiology follow up HISTORY OF [...] Cold [place]le (more content not included)... Normal [facility] CNPNon 06-27-2023 CNPN Telephone (CARDMN) JORGE DAVIS ([id number]) 1945 [place] Date Time Provider Department 06/27/23 RUBEN DENTON CARDMN During your visit today, we recorded the following information about you: Bryan Dwyer 06/27/2023 2:56 PM Signed Documentation scanned into EP outside database Scanned INR results into [facility] Allergies As of Date: 06/27/2023 (No Known Allergies) Date Reviewed: 06/05/2023 Reviewed by: Venkat Evans V, MD - Fully Assessed Reason for Visit: Received Outside Medical Records [[id number]] Prescriptions as of 06/27/2023 - warfarin (COUMADIN) [...] Atrial fibrillation (HCC) [I48.91] 07/08/2014 Atherosclerosis of [place] coronary artery of na*07/10/2015 Diabetes mellitus type 2, controlled, without c*07/10/2015 Atrial fibrillation, persistent (HCC) [I48.19] 07/22/2015 Paroxysmal atrial fibrillation (HCC) [I48.0] 12/04/2015 Paroxysmal atrial flutter (HCC) [I48.92] 05/30/2018 Obesity, Class III, BMI >= 40 [E66.01] 10/23/2019 Chronic diastolic heart failure (HCC) [I50.32] 06/05/2023 Mixed hyperlipidemia [E78.2] 06/05/2023 Encounter Status:Closed by BRYAN DWYER on 06/27/23 [facility] CNOVon 06-05-2023 CNOV Office Visit (CARDAV ) JORGE DAVIS ([id number]) 1945 [facility]* Date Time Provider Department 06/05/23 1:40 [...] on healthy diet and regular exercise Venkat Eavns MD Current Medications: Current Medications 06/05/2023 DIABETES [...] hyperlipidemia [E78.2] Order(s):ECG COMPLETE [ECG01] Order #: [id number]. #:[id number]--[id number] g ECHO [139842] Order #: [id number]: 1 FUTURE Prescriptions as of 06/05/2023 - warfarin (COUMADIN) 1 mg tablet Take 4 mg by mouth once daily. - metFORMIN (GLUCOPHAGE) 500 mg t (more content not included)... Normal [facility] [id number] 06-05-2023 ECG01 Ventricular Rate : 6 8 BPM QRS Duration : 108 ms Q-T Interval : 466 ms QTC Calculation(Bazett) : 495 ms Calculated R [place] : -27 degrees Calculated T [place] : 53 degrees ATRIAL FIBRILLATION INCOMPLETE RIGHT BUNDLE BRANCH BLOCK ABNORMAL ECG Confirmed by KATRINA KELLEY MD ([id number]) on 06/07/2023 9:44:30 AM NAME : JORGE DAVIS PID : [id number] : 1945 Gender : Male Race : [...] : , Acquired by : Ale lema [facility] Scooter 05-30-2023 CNPN Telephone (CARDMN) RYANHANNAHJORGE W ([id number]) 1945 [place] Date Time Provider Department 05/30/23 RUBEN DENTON During your visit today, we recorded the following information about you: Bryan Dwyer 05/30/2023 9:24 AM Signed Documentation scanned into EP outside database Scanned into Epic Allergies As of Date: 05/30/2023 (No Known Allergies) Date Reviewed: 06/24/2022 Reviewed by: Ruben Denton MD - Fully Assessed Reason for Visit: Received Outside Medical Records [[id number]] Cmt: INR Prescriptions as of 05/30/2023 - [...] Atrial fibrillation (HCC) [I48.91] 07/08/2014 Atherosclerosis of [place] coronary artery of na*07/10/2015 Diabetes mellitus type 2, controlled, without c*07/10/2015 Atrial fibrillation, persistent (HCC) [I48.19] 07/22/2015 Paroxysmal atrial fibrillation (HCC) [I48.0] 12/04/2015 Paroxysmal atrial flutter (HCC) [I48.92] 05/30/2018 Obesity, Class III, BMI >= 40 [E66.01] 10/23/2019 Encounter Status:Closed by BRYAN DWYER on 05/30/23 [facility] 05-02-2023 [facility] Telephone (CARDMN) JORGE DAVIS ([id number]) 1945 [place] Date Time Provider Department 05/02/23 RUBEN DENTON During your visit today, we recorded the following information about you: Bryan Dwyer 05/02/2023 3:27 PM Signed Documentation scanned into EP outside database Allergies As of Date: 05/02/2023 (No Known Allergies) Date Reviewed: 06/24/2022 Reviewed by: Ruben Denton MD - Fully Assessed Reason for Visit: Received Outside Medical Records [[id number]] Cmt: INR results Prescriptions as of 05/02/2023 [...] Atrial fibrillation (HCC) [I48.91] 07/08/2014 Atherosclerosis of [place] coronary artery of na*07/10/2015 Diabetes mellitus type 2, controlled, without c*07/10/2015 Atrial fibrillation, persistent (HCC) [I48.19] 07/22/2015 Paroxysmal atrial fibrillation (HCC) [I48.0] 12/04/2015 Paroxysmal atrial flutter (HCC) [I48.92] 05/30/2018 Obesity, Class III, BMI >= 40 [E66.01] 10/23/2019 Encounter Status:Closed by BRYAN DWYER on 05/02/23 [facility] Scooter 04-06-2023 CNPN Telephone (CARDMN) JORGE DAVIS ([id number]) 1945 [place]* Date Time Provider Department 04/06/23 RUBEN DENTON During your visit today, we recorded the following information about you: Suman Garvin 04/06/2023 6:45 AM Signed Outside medical records (INR report 04/04/2023) scanned into [employer] and shared [employer] [address] Allergies As of Date: 04/06/2023 (No [...] Atrial fibrillation (HCC) [I48.91] 07/08/2014 Atherosclerosis of [place] coronary artery of na*07/10/2015 Diabetes mellitus type 2, controlled, without c*07/10/2015 Atrial fibrillation, persistent (HCC) [I48.19] 07/22/2015 Paroxysmal atrial fibrillation (HCC) [I48.0] 12/04/2015 Paroxysmal atrial flutter (HCC) [I48.92] 05/30/2018 Obesity, Class III, BMI >= 40 [E66.01] 10/23/2019 Encounter Status:Closed by SUMAN GARVIN on 05/18/23 [facility] DAV[facility] ([id number]) 1945 [place] Date Time Provider Department 02/07/23 RUBEN DENTON During your visit today, we recorded the following information about you: Suman Garvin 02/07/2023 9:32 AM Signed Outside medical records (INR report 02/07/2023) scanned into [employer] and shared [employer]. Allergies As of Date: 02/07/2023 (No Known Allergies) Date Reviewed: 06/24/2022 Reviewed by: Ruben Denton MD - Fully Assessed Reason for Visit: Received Outside Medical Records [[id number]] Cmt: INR Report 02/07/2023 Prescriptions as of [...] Atrial fibrillation (HCC) [I48.91] 07/08/2014 Atherosclerosis of [place] coronary artery of na*07/10/2015 Diabetes mellitus type 2, controlled, without c*07/10/2015 Atrial fibrillation, persistent (HCC) [I48.19] 07/22/2015 Paroxysmal atrial fibrillation (HCC) [I48.0] 12/04/2015 Paroxysmal atrial flutter (HCC) [I48.92] 05/30/2018 Obesity, Class III, BMI >= 40 [E66.01] 10/23/2019 Encounter Status:Closed by SUMAN GARVIN on 02/07/23 [facility] CNPNon 01-11-2023 CNPN Telephone (CARDMN) JORGE DAVIS ([id number]) 1945 [place]* Date Time Provider Department 01/11/23 RUBEN DENTONDC During your visit today, we recorded the following information about you: Suman Garvin 01/11/2023 7:26 AM Signed Outside medical records (INR Report 01/10/2023) scanned into [employer]. Allergies As of Date: 01/11/2023 (No Known Allergies) Date Reviewed: 06/24/2022 Reviewed by: Ruben Denton MD - Fully Assessed Reason for Visit: Received Outside Medical Records [3573] Cmt: INR Report 01/10/2023 Prescriptions as of [...] Atrial fibrillation (HCC) [I48.91] 07/08/2014 Atherosclerosis of [place] coronary artery of na*07/10/2015 Diabetes mellitus type 2, controlled, without c*07/10/2015 Atrial fibrillation, persistent (HCC) [I48.19] 07/22/2015 Paroxysmal atrial fibrillation (HCC) [I48.0] 12/04/2015 Paroxysmal atrial flutter (HCC) [I48.92] 05/30/2018 Obesity, Class III, BMI >= 40 [E66.01] 10/23/2019 Encounter Status:Closed by SUMAN GARVIN on 05/17/23 [facility] 01-05-2023 CNPN Telephone (CARDMN) JORGE DAVIS ([id number]) 1945 [place] [facility] Date Time Provider Department 01/05/23 RUBEN DENTON During your visit today, we recorded the following information about you: Suman Garvin 01/05/2023 6:48 AM Signed Outside medical records (INR report 12/27/2022) scanned into [employer]. Allergies As of Date: 01/05/2023 (No Known Allergies) Date Reviewed: 06/24/2022 Reviewed by: Ruben Denton MD - Fully Assessed Reason for Visit: Received Outside Medical Records [3575] Cmt: INR Report 12/27/2022 Prescriptions as of [...] Atrial fibrillation (HCC) [I48.91] 07/08/2014 Atherosclerosis of [place] coronary artery of na*07/10/2015 Diabetes mellitus type 2, controlled, without c*07/10/2015 Atrial fibrillation, persistent (HCC) [I48.19] 07/22/2015 Paroxysmal atrial fibrillation (HCC) [I48.0] 12/04/2015 Paroxysmal atrial flutter (HCC) [I48.92] 05/30/2018 Obesity, Class III, BMI >= 40 [E66.01] 10/23/2019 Encounter Status:Closed by SUMAN GARVIN on 01/05/23 [facility]ooter 12-23-2022 [facility] Telephone (CARDMN) JORGE DAVIS ([id number]) 1945 [place] Date Time Provider Department 12/23/22 [facility] DENTON [facility] During your visit today, we recorded the following information about you: Shay Bobbi 12/23/2022 7:48 AM Signed Patient records received via electronic fax. Uploaded to [employer]. INR 12.20.22 Bobbi Sahu Allergies As of Date: 12/23/2022 (No Known Allergies) Date Reviewed: 06/24/2022 Reviewed by: Ruben Denton MD - Fully Assessed Reason for Visit: Received Outside Medical Records [[id number]] Prescriptions as of 12/23/2022 - ACETAMINOPHEN (TYLENOL [...] Atrial fibrillation (HCC) [I48.91] 07/08/2014 Atherosclerosis of [place] coronary artery of na*07/10/2015 Diabetes mellitus type 2, controlled, without c*07/10/2015 Atrial fibrillation, persistent (HCC) [I48.19] 07/22/2015 Paroxysmal atrial fibrillation (HCC) [I48.0] 12/04/2015 Paroxysmal atrial flutter (HCC) [I48.92] 05/30/2018 Obesity, Class III, BMI >= 40 [E66.01] 10/23/2019 Encounter Status:Closed by BOBBI SAHU on 12/23/22 Normal [facility] XR pre/post mri xrayon 11-24 XR pre/post mri xray [facility] [place] [address] [place] [address] MRI Report Signed Patient: Jorge Davis MR#: [id number] 14 : 1945 Acct:[id number] Age/Sex: 77 / M ADM Date: 11/24/22 Loc: [facility] Room: Type: [facility] Attending Dr: Ruben Celis MD Copies to: Ruben Celis MD Ordering Provider: Ruben Celis MD Date of Service: 11/24/22 MR/MR lumbar spine wo con: Other spondylosis with radiculopathy, lumbar region ([id number]) XR/XR pre/post mri xray: LUMBAR MRI MR [...] Ellis Humphreys M.D.11/24/2022 6:03 PM Dictation Location: [place] [address] Transcribed By: [facility] 11/24/221802 Dictated By: Ellis Humphreys II, MD 11/24/22 1754 Signed By: 11/24/22 1803 [facility] XR knee BI 2Von 10-12-2022 XR knee BI 2V [address] [address] XRay Report Signed Patient: Jorge Davis MR#: [id number] 14 : 1945 Acct:[id number] Age/Sex: 77 / M ADM Date: 10/12/22 Loc: [facility] Room: Type: [facility] Attending Dr: Bruce Shine II, MD Copies to: Bruce Shine MD Ordering Provider: Bruce Shine MD Date of Service: 10/12/22 XR/XR hip BI w PEL1V: Pain in right hip;Pain in left hip ([id number]) XR/XR knee BI 2V: PAIN ADULT PELVIS [...] Galvan Jr., D.O.10/12/2022 12:41 PM Dictation Location: [place] [address] Transcribed By: [facility] 10/12/22 1241 Dictated By: Jose Galvan Jr, DO 10/12/22 1239 Signed By: 10/12/22 1241 [facility] XR knee BI 2V [facility] [employer] Other XR knee BI 2V [facility] [employer] Other XR knee BI 2V [address] [place] [address] [employer] Other XR knee BI 2[place] [address] Nor [email or web address] Other XR knee BI 2V XRay Report [facility] [employer] Other XR knee BI 2V Signed [employer] Other XR knee BI 2V Patient: Corina Davis MR#: [id number] Emmet [email or web address] Other XR knee BI 2V 14 [employer] Other XR knee BI 2V : 1945 Acct:[id number] [employer] Other XR knee BI 2V Age/Sex: 77 / M ADM Date: 10/12/22 [employer] Other XR knee BI 2V Loc: [facility] Room: Type : [facility] [employer] Other XR knee BI 2V Attending Dr: Bruce Shine II, MD [employer] Other XR knee BI 2V Copies to: Bruce Shine MD [employer] Other XR knee BI 2V Ordering Provider: Bruce Shine MD [employer] Other XR knee BI 2V Date of Service: 10/12/22 [employer] Other XR knee BI 2V XR/XR hip BI w PEL1V: Pain in right hip;Pain in left hip [employer] Other XR knee BI 2V ([id number]) XR/XR knee BI 2V: PAIN [employer] Other XR knee BI 2V ADULT PELVIS WITH BILATERAL HIPS - one view each, bilateral knee series 4 views each [employer] Other XR knee BI 2V CLINICAL HISTORY: Bilateral hip/groin pain for years. Bilateral generalized knee pain for years. [employer] Other XR knee BI 2V COMPARISON: None [employer] Other XR knee BI 2V FINDINGS: [employer] Other XR knee BI 2V Hip series: Moderate degenerative changes of both hips without acute bony process. Degenerative [employer] Other XR knee BI 2V change also noted involving the visualized lower lumbar spine, SI joints and pubic symphysis. [employer] Other XR knee BI 2V Bilateral knee serie s: Bilateral knee prostheses are in place without radiographic complication. No [employer] Other XR knee BI 2V acute bony process i s seen. Vascular calcifications. [employer] Other XR knee BI 2V XR/XR hip BI w PEL1V [employer] Other XR knee BI 2V IMPRESSION: [employer] Other XR knee BI 2V MODERATE DEGENERATIV E CHANGES OF BOTH HIPS WITHOUT ACUTE BONY PROCESS. [employer] Other XR knee BI 2V BILATERAL KNEE PROSTHESES WITHOUT RADIOGRAPHIC COMPLICATION. [employer] Other XR knee BI 2V Impression dictated by: Jose Galvan Jr., D.O.10/12/2022 12:41 PM [employer] Other XR knee BI 2V Dictation Location: [place] [address] [employer] Other XR knee BI 2V Transcribed By: PWS 10/12/22 124 [employer] Other XR knee BI 2V Dictated By: Jose Galvan Jr, DO 10/12/22 1239 [employer] Other XR knee BI 2V Signed By: [employer] Other XR knee BI 2V 10/12/22 1241 [employer] Other A1C with Estimated Average G luon 05-16-2022 A1C with Estimated Average Glu [employer] Other GLYCOHEMOGLOBIN A1Con 2022 ADA RECOMMENDATION SEE BELOW Normal [facility] Comment on above: Result Comment: ADA RECOMMENDED LIMIT 4.0 - 6.0 ADA THERAPEUTIC TARGET < 7.0 ACTION SUGGESTED > 7.0 Performed By: #### A 1C #### [facility] [address] [address] [address] Edna Machado Glucose [Mass/Vol] 131 mg/dL Normal [facility] Comment on above: Performed By: #### A 1C #### [facility] [address] [place], [place] [address] Dr. Edna Machado HbA1c (Bld) [Mass fraction] 6.2 % Normal 4.5-6.2 [facility] Comment on above: Performed By: #### A 1C #### [facility] [address] [place] [address] CHEST WO CONon [...] GLENDA FENG Date: 2021-09-24 13:29 Normal [facility] CBC AUTO DIFFon 09-22-2021 BASO # 0.0 103/ul Normal 0.0-0.1 [facility] Comment on above: Performed By: #### C BC #### [facility] [address] [place] [address] Dr. Edna Machado Basophils/100 WBC (Bld) 0.5 % Normal 0.2-2.0 [facility] Comment on above: Performed By: #### C BC #### [facility] [address] [place] [address] Dr. Edna Machado EO # 0.1 103/ul Normal 0.0-0.7 [facility] Comment on above: Performed By: #### C BC #### [facility] [address] [place] [address] Dr. Edna Machado Eosinophils/100 WBC (Bld) 1.4 % Normal 0.9-7.0 [facility] Comment on above: Performed By: #### C BC #### [facility] [address] [place] [address] Dr. Edna Machado Erythrocyte distribution width (RBC) [Ratio] 14.6 % Normal 11.0-15.0 [facility] Comment on above: Performed By: #### C BC #### [facility] [address] [place] [address] Dr. Edna Machado Hematocrit (Bld) [Volume fraction] 46.5 % Normal 42.0-54.0 [facility] Comment on above: Performed By: #### C BC #### [facility] [address] [place] [address] Dr. Edna Machado Hemoglobin (Bld) [Mass/Vol] 15.0 g/dL Normal 14.0-18.0 [facility] Comment on above: Performed By: #### C BC #### [facility] [address] [place] [address] Dr. Edna Machado IG # 0.01 10e3/ul Normal 0.00-0.03 [facility] Comment on above: Performed By: #### C BC #### [facility] [address] [place] [address] Dr. Edna Machado IG % 0.1 % Normal 0.0-0.5 [facility] Comment on above: Performed By: #### C BC #### [facility] [address] [place] [address] Dr. Edna Machado LYMPH # 2.1 103/ul Normal 1.2-3.8 [facility] Comment on above: Performed By: #### C BC #### [facility] [address] [place] [address] Dr. Edna Machado Lymphocytes/100 WBC (Bld) 27.8 % Normal 20.5-60.0 [facility] Comment on above: Performed By: #### C BC #### [facility] [address] [place] [address] Dr. Edna Machado MANUAL DIFF REQ NO Normal [facility] Comment on above: Performed By: #### C BC #### [facility] [address] [place] [address] Dr. Edna Machado MCH (RBC) [Entitic mass] 29.0 pg Normal 25.9-34.0 [facility] Comment on above: Performed By: #### C BC #### [facility] [address] [place] [address] Dr. Edna Machado MCHC (RBC) [Mass/Vol] 32.3 g/dL Normal 29.9-35.2 [facility] Comment on above: Performed By: #### C BC #### [facility] [address] [place] [address] Dr. Edna Machado MCV (RBC) [Entitic vol] 89.8 fL Normal 80.0-94.0 [facility] Comment on above: Performed By: #### C BC #### [facility] [address] [place] [address] Dr. Edna Machado MONO # 0.6 103/ul Normal 0.3-0.8 [facility] Comment on above: Performed By: #### C BC #### [facility] [address] [place] [address] Dr. Edna Machado Monocytes/100 WBC (Bld) 8.3 % Normal 1.7-12.0 [facility] Comment on above: Performed By: #### C BC #### [facility] [address] [place] [address] Dr. Edna Machado NEUT # 4.6 103/ul Normal 1.4-6.5 [facility] Comment on above: Performed By: #### C BC #### [facility] [address] [place] [address] Dr. Edna Machado Neutrophils/100 WBC (Bld) 61.9 % Normal 43.0-75.0 [facility] Comment on above: Performed By: #### C BC #### [facility] [address] [place] [address] Dr. Edna Machado Platelet mean volume (Bld) [Entitic vol] 10.0 fL Normal 9.5-13.5 [facility] Comment on above: Performed By: #### C BC #### [facility] [address] [place] [address] Dr. Edna Machado PLT 218 103/ul Normal 150-450 [facility] Comment on above: Performed By: #### C BC #### [facility] [address] [place] [address] Dr. Edna Machado RBC 5.18 106/ul Normal 4.70-6.10 [facility] Comment on above: Performed By: #### C BC #### [facility] [address] [place] [address] Dr. Edna Machado WBC 7.4 103/ul Normal 4.0-11.0 [facility] Comment on above: Performed By: #### C BC #### [facility] [address] [place] [address] Dr. Edna Machado GLYCOHEMOGLOBIN A1Con 2021 ADA RECOMMENDATION SEE BELOW Normal [facility] Comment on above: Result Comment: ADA RECOMMENDED LIMIT 4.0 - 6.0 ADA THERAPEUTIC TARGET < 7.0 ACTION SUGGESTED > 7.0 Performed By: #### A 1C #### [facility] [address] [place] [address] [address] Edna Machado Glucose [Mass/Vol] 123 mg/dL Normal [facility] Comment on above: Performed By: #### A 1C #### [facility] [address] [place] [address] [address] Edna Machado HbA1c (Bld) [Mass fraction] 5.9 % Normal 4.5-6.2 [facility] Comment on above: Performed By: #### A 1C #### [facility] [address] [place] [address] Dr. Edna Machado LIPID PROFILEon 09-22-2021 CHOL-HDL RATIO NORM SEE BELOW Normal [facility] Comment on above: Result Comment: 3.3 - 4.4 LOW RISK 4.4 - 7.1 AVERAGE RISK 7.1 - 11.0 MODERATE RISK >11.0 HIGH RISK Performed By: #### L IPID, CMP #### [facility] [address] [place] [address] Dr. Edna Machado Cholesterol [Mass/Vol] 132 mg/dL Normal <=200 [facility] Comment on above: Performed By: #### L IPID, CMP #### [facility] [address] [place] [address] [address] Edna Machado Cholesterol in HDL [Mass/Vol] 43 mg/dL Normal 40-60 [facility] Comment on above: Performed By: #### L IPID, CMP #### [facility] [address] [place] [address] [address] Edna Machado Cholesterol in LDL [Mass/Vol] 71.0 mg/dL Normal [facility] Comment on above: Performed By: #### L IPID, CMP #### [facility] [address] [place] [address] [address] Edna Machado Cholesterol.total/C holesterol in HDL [Mass ratio] 3.1 {ratio} Normal [facility] Comment on above: Performed By: #### L IPID, CMP #### [facility] [address] [place] [address] [address] Edna Machado HDL NORMAL > or = 60 mg/dl - LO W CARDIOVASCULAR RISK <40 mg/dl - HIGH CARDIOVASCULAR RISK Normal [facility] Comment on above: Performed By: #### L IPID, CMP #### [facility] [address] [place] [address] [address] Edna Machado LDL CALC NORMAL SEE BELOW Normal [facility] Comment on above: Result Comment: <100 mg/dl OPTIMAL 100 - 129 mg/dl NEAR OR ABOVE OPTIMAL 130 - 159 mg/dl BORDERLINE HIGH 160 - 189 mg/dl HIGH >190 mg/dl VERY HIGH Performed By: #### L IPID, CMP #### [facility] [address] [place] [address] Dr. Edna Machado Triglyceride [Mass/Vol] 90 mg/dL Normal <=150 [facility] Comment on above: Performed By: #### L IPID, CMP #### [facility] [address] [place] [address] [address] Edna Machado VLDL CALC 18.0 mg/dL Normal [facility] Comment on above: Performed By: #### L IPID, CMP #### [facility] [address] [place] [address] Dr. Edna Machado PROF 14(COMP METB)on 022 Albumin [Mass/Vol] 3.5 g/dL Normal 3.4-5.0 [facility] Comment on above: Performed By: #### L IPID, CMP #### [facility] [address] [place] [address] Dr. Edna Machado Albumin/Globulin [Mass ratio] 0.9 {ratio} Normal [facility] Comment on above: Performed By: #### L IPID, CMP #### [facility] [address] [place] [address] Dr. Edna Machado ALP [Catalytic activity/Vol] 83 U/L Normal 46-116 [facility] Comment on above: Performed By: #### L IPID, CMP #### [facility] [address] [place] [address] [address] Edna Machado ALT [Catalytic activity/Vol] 22 U/L Normal 16-63 [facility] Comment on above: Performed By: #### L IPID, CMP #### [facility] [address] [place] [address] [address] Edna Machado Anion gap [Moles/Vol] 9.4 mmol/L Normal [facility] Comment on above: Performed By: #### L IPID, CMP #### [facility] [address] [place] [address] [address] Edna Machado AST [Catalytic activity/Vol] 13 U/L Critically low 15-37 [facility] Comment on above: Performed By: #### L IPID, CMP #### [facility] [address] [place] [address] Dr. Edna Machado Bilirubin [Mass/Vol] 0.6 mg/dL Normal 0.2-1.0 [facility] Comment on above: Performed By: #### L IPID, CMP #### [facility] [address] [place] [address] Dr. Edna Machado Calcium [Mass/Vol] 8.7 mg/dL Normal 8.5-10.1 [facility] Comment on above: Performed By: #### L IPID, CMP #### [facility] [address] [place] [address] [address] Edna Machado Chloride [Moles/Vol] 103 mmol/L Normal 98-107 [facility] Comment on above: Performed By: #### L IPID, CMP #### [facility] [address] [place] [address] [address] Edna Machado CO2 [Moles/Vol] 28.7 mmol/L Normal 21.0-32.0 [facility] Comment on above: Performed By: #### L IPID, CMP #### [facility] [address] [place] [address] [address] Edna Machado Creatinine [Mass/Vol] 0.83 mg/dL Normal 0.70-1.30 [facility] Comment on above: Performed By: #### L IPID, CMP #### [facility] [address] [place] [address] [address] Edna Machado EGFR-AF COMORAN >60 Normal >=60 [facility] Comment on above: Performed By: #### L IPID, CMP #### [facility] [address] [address] [address] Edna Machado EGFR-NON AF COMORAN >60 Normal >=60 [facility] Comment on above: Performed By: #### L IPID, CMP #### [facility] [address] [place] [address] [address] Edna Machado Globulin (S) [Mass/Vol] 3.7 g/dL Normal [facility] Comment on above: Performed By: #### L IPID, CMP #### [facility] [address] [place] [address] Dr. Edna Machado Glucose [Mass/Vol] 106 mg/dL Normal 74-106 [facility] Comment on above: Performed By: #### L IPID, CMP #### [facility] [address] [address] [address] Edna Machado Potassium [Moles/Vol] 4.1 mmol/L Normal 3.5-5.1 [facility] Comment on above: Performed By: #### L IPID, CMP #### [facility] [address] [address] [address] Edna Machado Protein [Mass/Vol] 7.2 g/dL Normal 6.4-8.2 [facility] Comment on above: Performed By: #### L IPID, CMP #### [facility] [address] [address] [address] Edna Machado Sodium [Moles/Vol] 137 mmol/L Normal 136-145 [facility] Comment on above: Performed By: #### L IPID, CMP #### [facility] [address] [address] [address] Edna Machado Urea nitrogen [Mass/Vol] 11.0 mg/dL Normal 7.0-18.0 [facility] Comment on above: Performed By: #### L IPID, CMP #### [facility] [address] [place], [place] [address] Dr. Edna Machado Urea nitrogen/Creatinine [Mass ratio] 13.3 mg/mg Normal [facility] Comment on above: Performed By: #### L IPID, CMP #### [facility] [address] [place], [place] [address] Dr. Edna Machado Ambulatory Clinical Summaryo 02-28-2020 Ambulatory Clinical Summary {[id number] Normal [facility] Patient Education 02-28-20 Patient Education Family Medicine Benign Prostatic Hyperplasia [...] Document Reviewed: 11/02/2007 ExitCare? Patient Information ?2013 [employer]. [facility] Urology Office/Clinic Noteon 02-28-2020 Urology Office/Clinic Note [...] nicotine dependence) 5. Anticoagulant long-term use (Z79.01: snf (current) use of anticoagulants) warfarin therapy I [...] Protein Urine Dipstick: Negative (02/28/20 08:57:00) Specific [place] Urine Dipstick: 1.020 (02/28/20 08:57:00) Urine Appearance Urine Dipstick: Clear (02/28/20 08:57:00) Urine Color Urine Dipstick: Yellow (02/28/20 08:57:00) Urobilinogen Urine Dipstick: Normal 0.2-1 EU/dl (02/28/20 08:57:00) pH Urine Dipstick: 5 (02/28/20 08:57:00) Normal [facility] Comment on above: Result Comment: Elec tronically Signed By: David DANIEL MD\.br\Date and Time Signed: 02/28/20 09:34 EST\.br\Electronically Co-Signed By: Lou Chavez MA\.br\Date and Time Co-Signed: 02/28/20 09:31 EST Reminderson 01-21-2020 Reminders - From: Mandy Bashir [facility]: [facility] Clinical; Sent: 01/08/2020 09:45:38 EDT Show up: 01/17/2020 09:45:00 EST Subject: renal US Due Date/Time: 01/22/2020 09:45:00 EST Reminder/Recall Pt sched 01/17/20 @ 7:45am [facility] for renal US, Order faxed Show PRW, pt to be called with results Please review Renal US and call pt with results.LG From: Mandy Bashir ( - Clinical) To: David DANIEL MD; Sent: 01/20/2020 14:07:31 EST Show up: 01/20/2020 14:07:00 EST Subject: RE: renal US From: David DANIEL MD To[facility] Clinical; Sent: 01/20/2020 15:25:17 EST Show up: 01/20/2020 15:24:00 EST Subject: RE: renal US no stones. one cyst. no mass pw. Patient was notified of results.LG Normal [facility] RAD - Ultrasound Reporton RAD - Ultrasound Report [id number] CD:127 Normal [facility] UroVysion Fish and Urine Cyt o ([facility])on 01-17-2020 UVFISH & UC Diagnosis Info [facility] Comment on above: Result Comment: A:Ur ine,Urine:Voided [...] on: 01/17/2020 07:53:07 Performed By: #### 1 [id number] ####[facility] [address] [place] [address] Coding Summary.on 01-08-2020 Coding Summary. CODING DATE: 01/08/2020 FINAL [facility] STATUS: Home (Routine DC) PAYOR: Medicare APC DESCRIPTION 5372 Level 2 Urology and Related Services ADMIT DX: REASON FOR VISIT DX: R31.0 Gross hematuria FINAL DX: PRINCIPAL: R31.0 Gross hematuria SECONDARY: N40.1 Benign prostatic hyperplasia with lower urinary tract symptoms R31.29 Other microscopic hematuria I10 Essential (primary) hypertension I25.10 Atherosclerotic heart disease of [place] coronary artery without angina pectoris E78.5 Hyperlipidemia, unspecified E11.9 Type 2 diabetes mellitus without complications J44.9 Chronic obstructive pulmonary disease, unspecified E66.01 Morbid (severe) obesity due to excess calories Z68.41 Body mass index [BMI]40.0-44.9, adult I49.9 Cardiac arrhythmia, unspecified Z79.01 intermediate frame tender (current) use of anticoagulants Z79.84 snf (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 However, the narrative phrase printed from the coding software may appear abbreviated, or result in slightly different terminology. Coded By: Edwina Marie Date Saved: 01/08/2020 10:47 am [facility] Consent for Procedure/Surger yon 01-08-2020 Consent for Procedure/Surgery [id number]. 00CD:127 [facility] Discharge Instructionson Discharge Instructions [id number]. 00CD:127 [facility] History and Physicalon 01-07 History and Physical [id number]. 00CD:127 [facility] IntraOperative Documentson 1 IntraOperative Documents [id number]. 00CD:127 [facility] Consent for Treatmenton 12-12 Consent for Treatment [id number] 0CD:127 [facility] Main OR Intraoperative Recor don 01-07-2020 Main OR Intraoperative Record IntraOp Document Type FTURO Summary Primary Physician: David DANIEL MD Finalized Date/Time: 01/07/20 10:17:52 Pt. Name: JORGE DAVIS/Sex: 1945 Male Med Rec #: [id number] Physician: David DANIEL MD Financial #: [id number] Pt. Type: O Room/Bed: / Admit/Disch: 01/07/20 09:23:05 - Institution: Case Times FTURO Entry 1 Patient Times In Room 01/07/20 10:00:00 Out Room 01/07/20 10:23:00 Procedure Times Start 01/07/20 10:11:00 Stop 01/07/20 10:18:00 Anesthesia Times Last Modified By: GERMANIA Antunez RN, Ruthann 01/07/20 10:15:32 Case Attendance FTURO Entry 1 Entry 2 Entry 3 Case Attendee MARÍA REYNOSO, David Antunez RN, JASWANTOR, Catherine WILSON, Maday Bond Role Performed Surgeon - Primary Supply Chain Intern - Primary Scrub - Primary Time In 01/07/20 10:00:00 01/07/20 10:00:00 01/07/20 10:00:00 Time Out 01/07/20 10:23:00 01/07/20 10:23:00 01/07/20 10:23:00 Procedure CYSTOSCOPY LOCAL(.) CYSTOSCOPY LOCAL(.) CYSTOSCOPY LOCAL(.) Comments Last Modified By: Harmony KILLIAN, JASWANTOR, GERMANIA Antunez RN, Stocker RN, CNOR, Ruthann 01/07/20 Ronda 01/07/20 Ronda 01/07/20 10:15:47 10:15:47 10:15:47 Surgical Procedures FTURO Entry 1 Procedure Description Procedure CYSTOSCOPY LOCAL Modifiers . Surgeon Description CYSTOSCOPY Primary Procedure Yes Primary Surgeon David DANIEL MD Start 01/07/20 10:11:00 Stop 01/07/20 10:18:00 Anesthesia Type Local Surgical Service Urology Wound Class 2 - Clean-Contaminated Last Modified By: GERMANIA Antunez RN, Ruthann 01/07/20 10:15:44 General Case Data FTURO Pre-Care Text: Classifies surgical wound, implements aseptic technique, initiates traffic control Entry 1 Case Information OR URO 1 FT Case Level None Wound Class 2 - Clean-Contaminated Specialty Urology Preop Diagnosis GROSS HEMATURIA, Postop Same As Preop No MICROSCOPIC HEMATURIA, HX KIDNEY STONE, BPH W/LUTS Postop Diagnosis BPH W/LUTS Outcomes Met? Yes Last Modified By: GERMANIA Antunez RN, Ruthann 01/07/20 10:16:08 Post-Care Text: The patient is [...] MD, Verified (If Medication Participants Harmony KILLIAN, GERMANIA, Applicable) Catherine Bond HOT STICK WORKER, Maday Time Out Complete 01/07/20 10:08:00 Allergies Reviewed? [...] 10:16 GERMANIA Antunez RN, Ruthann 01/07/20 10:17 [facility] Main OR Preoperative Recordo n 01-07-2020 Main OR Preoperative Record Holding Area Document Type FTURO Summary Primary Physician: David DANIEL MD Finalized Date/Time: 01/07/20 10:07:43 Pt. Name: JORGE DAVIS/Sex: 1945 Male Med Rec #: [id number] Physician: David DANIEL MD Financial #: [id number] Pt. Type: O Room/Bed: / Admit/Disch: 01/07/20 [...] Lens Implant, Jewelry Personal Items watch Limitations: [place] Comment: Complaints of Pain: No Skin Integrity Unable to Visualize Vitals - EU Blood Pressure 133/73 Pulse 70 bpm Respirations 18 br/min SPO2 Additional ELLY KILLIAN Reviewed Yes Specimens Collected Last Modified By: GERMANIA Antunez RN, Ruthann 01/07/20 10:07:41 General Comments: Temp. 36.3 Finalized By: GERMAINA Antunez RN, Ruthann Document Signatures Signed By: Emeli Arguello LPN 01/07/20 09:37 GERMANIA Antunez RN, Ruthann 01/07/20 10:07 Normal [facility] Operative Reporton 0 Operative Report Patient: SHARAN [...] with antibiotic coverage, Follow up arranged. Normal [facility] Comment on above: Result Comment: Elec tronically Signed By: MARÍA REYNOSO, David Anne.br\Date and Time Signed: 01/07/20 10:20 EDT Patient [...] have a fever over 100 degrees. Normal [facility] UroVysion Fish and Urine Cyt o (P4 Labs)on 01-07-2020 [facility] Method of Extraction Voided Normal [facility] Comment on above: Performed By: #### 1 [id number] ####[facility] [address] [place] [address] [facility] Number of Jars 1 Bette loaiza [facility] Comment on above: Performed By: #### 1 [id number] ####[facility] [address] [place] [address] [facility] Specimen Urine Normal [facility] Comment on above: Performed By: #### 1 [id number] ####[facility] [address] [place] [address] [facility] Type of Service Technical Only Normal [facility] Comment on above: Performed By: #### 1 [id number] ####[facility] [address] [facility] [place] [address] ALLIED HEALTHon 12-24-2019 ALLIED HEALTH HNO ID: [id number] Author: ERICA Ibarra (Ct) Service: Radiology Author Type: Title 1 Tutor Type: Allied Health Filed: 12/24/2019 9:54 AM [...] DATE: December 24, 2019 TIME: 9:54 AM [facility] CT PULMONARY VEIN W IVCONon 12-24-2019 CT PULMONARY VEIN W IVCON * * *Final Report* * * DATE OF EXAM: Dec 24 2019 9:50AM [facility] 0464 - CT PULMONARY VEIN W IVCON [...] 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 Spiral [...] as dissection, intramural hematoma, or contained rupture. Roll Edge Machine Operator dimensions of the thoracic aorta are [...] CT exam in 3 months is recommended. Admissions Dean: [facility] Transcribe Date/Time: Dec 24 2019 11:12A Dictated by : SARA SIMPSON MD This examination was interpreted and the report reviewed and electronically signed by: SARA SIMPSON MD on Dec 24 2019 12:47PM EST [id number] ACTIONABLE [facility] NURSING PROGon 12-24-2019 NURSING PROG HNO ID: [id number] Author: Arlene (Rn) LESLIE Chowdhury Service: Nursing Author Type: Registered Nurse Type: Nursing Progress Note Filed: 12/24/2019 11:00 AM Note Text: Nursing Progress Note Topic of Note: Daily Note Jorge Davis [id number] Pt SR. Procedure cancelled. H/L removed from CT scan. Dr. Nelson spoke with p0t. This note was completed by: Arlene Chowdhury RN [facility] PROGRESSon 12-24-2019 PROGRESS HNO ID: [id number] Author: Ezequiel Nelson Service: Electrophysiology Author Type: Physician Type: Progress Notes Filed: 12/24/2019 10:44 AM Note Text: Scheduled for cardioversion, but in SR upon arrival. [facility] CNPScarlett 12-18-2019 CNPN Telephone (FVPRAD) JORGE DAVIS ([id number]) 1945 [place]* Date Time Provider Department 12/18/19 SHAMA IBANEZ) NATALIE During your visit today, we recorded the following information about you: Shama Ibanez PA-C, PA 12/18/2019 3:11 PM Signed Monitor done show persistent AF 100% burden Case discussed with Dr Denton and he recommends cardioversion Called and discussed this with patient, he is willing to proceed Lab and covid orders placed He will get labs done tomorrow at [facility] Sending to procedure schedulers for cardioversion scheduling. If possible try to arrange on 12/23 at in early afternoon as he will already be here and NPO for CT scan. If not possible on that day then please schedule at [facility] with available provider at patient's convenience Shama Ibanez PA-C. Johnny Joe 12/19/2019 10:22 AM Signed Pts calling back in regards to below. Would like a return call with questions about the procedure. can be reached at [phone], ok to leave detailed message. Please advise. Maggi Schneider APRN.CNP 12/19/2019 1:50 PM Signed Called . She had questions regarding where to report the day of the CT scan and DCCV. Advised to report to the main lobby and security will direct them to the appropriate locations. Maggi Schneider APRN.THREAD CUTTER Allergies As of Date: 12/18/2019 (No Known Allergies) Date Reviewed: 11/05/2019 Reviewed by: Lyndsay Higgins Ma - Fully Assessed Reason for Visit: Results [95] Primary Visit Diagnosis:Atrial fibrillation, persistent (HCC) [I48.19] Order(s):CBC + DIFF [SQCBCDIF] Order #: [id number] FUTURE BASIC METABOLIC PNL [SQBMP] Order #: [id number] FUTURE MAGNESIUM BLD [SQMG1] Order #: [id number] FUTURE PRE-PROCEDURE AND PRE-OPERATIVE COVID [SQPOCOVD] Order #: [id number] FUTURE CARDIOVERSION, ELECTIVE, ELECTRICAL [00041QNX] Order #: [id number]: 1 Prescriptions as of 12/18/2019 Sig: APIXABAN [...] Atrial fibrillation (HCC) [I48.91] 07/08/2014 Atherosclerosis of [place] coronary artery of na*07/10/2015 Diabetes mellitus type 2, controlled, without c*07/10/2015 Atrial fibrillation, persistent (HCC) [I48.19] 07/22/2015 Paroxysmal atrial fibrillation (HCC) [I48.0] 12/04/2015 Paroxysmal atrial flutter (HCC) [I48.92] 05/30/2018 Obesity, Class III, BMI >= 40 [E66.01] 10/23/2019 Encounter Status:Closed by SHAMA IBANEZ PA-C on 12/18/19 [facility] HOSPon 12-18-2019 HOSP Patient:Jorge Davis MRN: Height:5' [...] [E78.5] Atrial fibrillation (HCC) [I48.91] Atherosclerosis of [place] coronary artery of [place] heart without angina pectoris [I25.10] Diabetes mellitus [...] He will get labs done tomorrow at [facility] Sending to procedure schedulers for cardioversion scheduling. If possible try to arrange on 12/23 at in early afternoon as he will already be here and NPO for CT scan. If not possible on that day then please schedule at [facility] with available provider at patient's convenience Shama Ibanez PA-C. Johnny Diaz 12/19/2019 10:22 AM Signed Pts calling back in regards to below. Would like a return call with questions about the procedure. can be reached at [phone], ok to leave detailed message. Please advise. Maggi Schneider APRN.CNP 12/19/2019 1:50 PM Signed Called . She had questions regarding where to report the day of the CT scan and DCCV. Advised to report to the main lobby and security will direct them to the appropriate locations. Maggi Schneider APRN.TATA [facility] NURSING PROGon 10-24-2019 Cholesterol [Mass/Vol] HNO ID: [id number] Author: Nga BriggsRn) LESLIE Garcia Service: Nursing Author Type: Registered Nurse Type: Nursing Progress Note Filed: 10/24/2019 11:13 AM Note Text: Nursing Progress Note Topic of Note: Routine Reassessment Jorge Davis [id number] 1110- Patient up in bed. Bilateral groins soft, tender, bilateral DP pulses palpable. Patient states no pain, is unhappy that he is not discharged yet. OUTPATIENT PHARMACY MANAGER notified and will be up to D/C soon. This note was completed by: Nga Garcia RN [facility] NURSING PROG HNO ID: [id number] Author: Caridad BriggsRn) LESLIE Alvarez Service: Nursing Author Type: Registered Nurse Type: Nursing Progress Note Filed: 10/24/2019 8:21 AM Note Text: Nursing Progress Note Patient Name: Jorge Davis Patient Location: [id number] __ Daily Note: 0800- Pt sitting up in bed, assessment charted per npr, IV patent, Bilat groins soft, tender,no s/s of any bleeding or infection, bilat pedal pulses palpated,call light within reach,am meds given,no pain,no issues. This note was completed by: Caridad Alvarez RN [facility] ANES POSTPROC EVALon 020 ANES POSTPROC EVAL HNO ID: [id number] Author: Murtaza Bauer Service: ? Author Type: Physician Type: Anesthesia Postprocedure Evaluation Filed: 10/23/2019 3:04 PM Note Text: POST ANESTHESIA EVALUATION NOTE : 1945 Procedure Summary Date: 10/23/19 Room / Location: EP ROOM 2 / EP Anesthesia Start: 830 Anesthesia Stop: 1437 Procedures: COMPLETE EPS W/PVI ABLATION (N/A ) [...] October 23, 2019 TIME: 3:04 PM CSN: [id number] [facility] ANES PRE-OPon 10-23-2019 ANES PRE-OP HNO ID: [id number] Author: Murtaza Bauer Service: ? Author Type: [...] (obstructive sleep apnea) CARDIO (+) Atherosclerosis of [place] coronary artery of [place] heart without angina pectoris (+) Atrial fibrillation [...] none. Vitals Value Taken Time BP 168/90 10/23/19 0631 Pulse 80 10/23/19 0631 Resp 18 10/23/19 0631 Temp 36.7 ?C (98.1 ?F) 10/23/19 0631 SpO2 98 % 10/23/19 0631 No current facility-administered medications on file as [...] October 23, 2019 TIME: 7:27 AM CSN: [id number] Normal [facility] Basic Metabolic Panlon 10-22 Anion gap [Moles/Vol] 15 mmol/L Normal 9-18 [facility] Comment on above: Performed By: #### C BC, BMP #### [place] [id number] Calcium [Mass/Vol] 9.1 mg/dL Normal 8.5-10.5 [facility] Comment on above: Performed By: #### C BC, BMP #### [place] [id number] Chloride [Moles/Vol] 103 mmol/L Normal 98-110 [facility] Comment on above: Performed By: #### C BC, BMP #### [place] [phone] CO2 [Moles/Vol] 21 mmol/L Low 23-32 [facility] Comment on above: Performed By: #### C BC, BMP #### [place] [id number] Creatinine [Mass/Vol] 0.78 mg/dL Normal 0.70-1.40 [facility] Comment on above: Performed By: #### C BC, BMP #### [place] [id number] eGFR- Amer. >60 Normal >60 [facility] Comment on above: Performed By: #### C BC, BMP #### [place] [phone] GFR/1.73 sq M predicted among non-blacks MDRD (S/P/Bld) [Vol rate/Area] mL/min/{1.73_m2} Normal >60 [facility] Comment on above: Performed By: #### Everett CASTRO, BMP #### [place] [phone] Glucose [Mass/Vol] 124 mg/dL High 65-100 [facility] Comment on above: Performed By: #### Everett CASTRO, BMP #### [place] [phone] Potassium [Moles/Vol] 4.1 mmol/L Normal 3.5-5.0 [facility] Comment on above: Performed By: #### Everett CASTRO, BMP #### [place] [phone] Sodium [Moles/Vol] 139 mmol/L Normal 135-146 [facility] Comment on above: Performed By: #### Everett CASTRO, BMP #### [phone] Urea nitrogen [Mass/Vol] 16 mg/dL Normal 10-25 [facility] Comment on above: Performed By: #### Everett CASTRO, BMP #### [place] [phone] CBCon 10-23-2019 Absolute nRBC <0.01 Normal <0.01 [facility] Comment on above: Performed By: #### Everett CASTRO, BMP #### [place] [phone] Erythrocyte distribution width (RBC) [Ratio] 14.7 % Normal 11.5-15.0 [facility] Comment on above: Performed By: #### Everett CASTRO, BMP #### [place] [phone] Hematocrit (Bld) [Volume fraction] 46.7 % Normal 39.0-51.0 [facility] Comment on above: Performed By: #### Everett CASTRO, BMP #### [place] [phone] Hemoglobin (Bld) [Mass/Vol] 14.8 g/dL Normal 13.0-17.0 [facility] Comment on above: Performed By: #### C GLORIA, BMP #### [place] [address] MCH (RBC) [Entitic mass] 28.7 pG Normal 26.0-34.0 [facility] Comment on above: Performed By: #### C GLORIA, BMP #### [place] [address] MCHC (RBC) [Mass/Vol] 31.7 g/dL Normal 30.5-36.0 [facility] Comment on above: Performed By: #### C GLORIA, BMP #### [place] [address] MCV (RBC) [Entitic vol] 90.7 fL Normal 80.0-100.0 [facility] Comment on above: Performed By: #### C GLORIA, BMP #### [place] [address] Platelet mean volume (Bld) [Entitic vol] 10.0 fL Normal 9.0-12.7 [facility] Comment on above: Performed By: #### C GLORIA, BMP #### [place] [address] Platelets (Bld) [#/Vol] 178 10*3/uL Normal 150-400 [facility] Comment on above: Performed By: #### C BC, BMP #### [place] [address] RBC (Bld) [#/Vol] 5.15 10*6/uL Normal 4.20-6.00 [facility] Comment on above: Performed By: #### C BC, BMP #### [place] [address] WBC (Bld) [#/Vol] 6.73 10*3/uL Normal 3.70-11.00 [facility] Comment on above: Performed By: #### C BC, [facility] #### [facility] [address] [place] [address] ECG COMPLETEon 10-23-2019 ECG COMPLETE NAME : JORGE DAVIS PID : [id number] : 1945 Gender : Male Race : ORD : [id number] Procedure Date : Oct 23 2019 14:59:44 Edit Date : Oct 23 2019 17:01:19 Diagnosis:Sinus tachycardia IVCD, consider atypical RBBB Abnormal ECG Confirmed by KATRINA KELLEY MD (79) on 10/23/2019 5:01:18 PM Ventricular Rate : 101 BPM Atrial Rate : 101 BPM P-R Interval : 187 ms QRS Duration : 122 ms Q-T Interval : 386 ms QTC Calculation(Bazett) : 501 ms P [place] : 65 degrees R [place] : -32 degrees T [place] : 54 degrees Test Reason : Post-OP Location : 400 : EKG 6 Overread By : KATRINA KELLEY MD Edited By : KATRINA KELLEY MD Referred By : , Acquired by : DARA [facility] ECG COMPLETE NAME : JORGE DAVIS PID : [id number] : 1945 Gender : Male Race : ORD : [id number] Procedure Date : Oct 23 2019 07:03:28 Edit Date : Oct 23 2019 16:59:50 Diagnosis:Atrial fibrillation Abnormal ECG Confirmed by KATRINA KELLEY MD (79) on 10/23/2019 4:59:48 PM Ventricular Rate : 70 BPM Atrial Rate : 0 BPM P-R Interval : 120 ms QRS Duration : 109 ms Q-T Interval : 437 ms QTC Calculation(Bazett) : 472 ms R [place] : -21 degrees T [place] : 35 degrees Test Reason : Pre OP Location : 400 : FVEKG 6 Overread By : KATRINA KELLEY MD Edited By : KATRINA KELLEY MD Referred By : , Acquired by : [facility] HISTORY PHYSICALon 0 HISTORY PHYSICAL HNO ID: [id number] Author: Ruben Denton MD Service: Cardiovascular Disease Author Type: Physician Type: HANDP Filed: 10/23/2019 8:22 AM Note Text: HISTORY AND PHYSICAL EXAMINATION SERVICE DATE: 10/23/2019 SERVICE TIME: 6:59 AM PRIMARY CARE PHYSICIAN: Declan Swanson MD ASSESSMENT AND PLAN: Persistent A.Fib, Roni, Obesity, COPD, SUBJECTIVE CHIEF COMPLAINT: Having A.Fib [...] SURGICAL HISTORY OF minor hand surgery - [place] ANESTH,TOTAL KNEE ARTHROPLASTY 2006 Right Knee - [...] hours. SIGNATURE: Shandra Smith PA-C PATIENT NAME: oJrge Davis DATE: October 23, 2019 TIME: 6:59 AM PAGER: [phone] CARD EP STAFF Pt seen and examined. The documented findings were individually confirmed, and the history was verified and corrected, if appropriate. I discussed the patient's management with the PA and reviewed their note. Additional Hx/summary is as follows: 74 YO male with persistent AF despite prior DCCV and dofetilide. He presents today for PVAI. Ruben Denton MD [facility] NURSING PROGon 10-23-2019 NURSING PROG HNO ID: [id number] Author: Nacho Hatfield (Rn) LESLIE Mensah Service: Nursing Author Type: Registered Nurse Type: Nursing Progress Note Filed: 10/24/2019 5:41 AM Note Text: Nursing Progress Note Patient Name: Jorge Davis [id number] __ 2104 Pt resting quietly in room. R/L groins soft and without hematoma or bleeding. (Small pink drainage left groin noted). DP pulses palpable. No pain or complaints. OUTPATIENT PHARMACY MANAGER cough noted. Cepacol ineffective. Obtained Tessalon perles order. Will administer when available from pharmacy. Pt received home lasix dose at ~1930 from last shift (will remove moses soon.) Tele SR. Will monitor. 2226 Moses removed ~2130. Tolerated well. Pt oob with assistance x1, [...] note was completed by: Nacho Mensah RN [facility] NURSING PROG HNO ID: [id number] Author: Marybeth (Leslie) LESLIE Parr Service: Nursing Author Type: Registered Nurse Type: Nursing Progress Note Filed: 10/23/2019 4:47 PM Note Text: Nursing Progress Note Topic of Note: Daily Note Jorge Davis [id number] 1630 pt. up to floor via bed from cath recovery, report received from Karie De Leon [...] note was completed by: Marybeth Parr RN [facility] NURSING PROG HNO ID: [id number] Author: Celeste BriggsRn) LESLIE Fay Service: Nursing Author Type: Registered Nurse Type: [...] R.N. 1621 [facility]. Normal [facility] Type and Screenon 10-23-2019 ABO/RH(D) Positive Normal [facility] Comment on above: Performed By: #### T SCR ####[place] [phone] Urinalysison 10-23-2019 Bilirubin, Urine Negative Normal Negative [facility] Comment on above: Performed By: #### U A #### [place] [phone] Clarity (U) Clear Normal Clear [facility] Comment on above: Performed By: #### U A #### [place] [phone] Color (U) Light Yellow Critically abnormal Yellow [facility] Comment on above: Performed By: #### U A #### [place] [phone] Comments SEE COMMENT Normal [facility] Comment on above: Result Comment: Micr oscopic not warranted Performed By: #### U A #### [place] [address] Glucose Ql (U) Negative Normal [facility] Comment on above: Performed By: #### U A #### [address] Hemoglobin/Blood,Ur Negative Normal Negative [facility] Comment on above: Performed By: #### U A #### [place] [address] Ketones Ql (U) Negative Normal Negative [facility] Comment on above: Performed By: #### U A #### [place] [address] Leukest Negative Normal [facility] Comment on above: Performed By: #### U A #### [address] Nitrite Ql (U) Negative Normal [facility] Comment on above: Performed By: #### U A #### [place] [id number] pH (Bld) 6.5 Normal 5.0-8.0 [facility] Comment on above: Performed By: #### U A #### [address] Protein (U) [Mass/Vol] Negative Normal [facility] Comment on above: Performed By: #### U A #### [address] Specific [place], Ur 1.015 Normal 1.005-1.030 [facility] Comment on above: Performed By: #### U A #### [place] [phone] Urobilinogen Qn (U) Negative Normal Negative [facility] Comment on above: Performed By: #### U A #### [facility] [address] [place] [address] Lab Reportson 10-11-2019 Lab Reports [id number]#[id number] CD:127 Normal [facility] Confirm Blood Typeon 020 ABO/RH(D) Positive Normal [facility] Comment on above: Performed By: #### C ONABO ####[facility] [place], [place] [phone] HOSPon 09-18-2019 HOSP Patient:Jorge Davis MRN: Height:5' [...] [E78.5] Atrial fibrillation (HCC) [I48.91] Atherosclerosis of [place] coronary artery of [place] heart without angina pectoris [I25.10] Diabetes mellitus [...] Progress Notes (CARD EPS MAIN): Jessika Villegas Medse 10/22/2019 1:11 PM Signed October 22, 2019 1:10 PM Patient Name: Jorge Davis [id number] Contact Information: [phone] (home) [phone] (cell) Reason for Call: Patient scheduled for PVI ablation tomorrow at [place] - what are his instructions regarding his eliquis ? Physician: Ruben Denton MD, LESLIE, RN 10/22/2019 4:[address] Thomas instructions available in [facility] patient advised to hold Eliquis the morning of his procedure. HE stated understanding. Carmelina Bender RN Progress Notes (CARD EPS MAIN): Jessika Villegas [facility] 10/14/2019 3:44 PM Signed October 14, 2019 3:43 PM Patient Name: Jorge Davis [id number] Contact Information: [phone] (home) [phone] (cell) Last visit with EP Provider: 04/19/2019 Reason for Call: Received partially completed application for [facility]umant with documentation from patient; gave to nurse to complete physician section Physician: Ruben Denton MD, RN, RN 10/16/2019 9:51 AM Signed Completed and returned to [facility]. Usha Bonilla RN [facility] NURSING PROGon 09-18-2019 NURSING PROG HNO ID: [id number] Author: Arlene (Leslie) LESLIE Chowdhury Service: Nursing Author Type: Registered Nurse Type: Nursing Progress Note Filed: 09/18/2019 9:57 AM Note Text: Nursing Progress Note Topic of Note: Daily Note Jorge Davis [id number] Pre op done. INR 4.3. Repeat in [...] note was completed by: Arlene Chowdhury RN [facility] Protimeon 09-18-2019 PT Coag (PPP) [Time] 51.3 s High 9.7-13.0 [facility] Comment on above: Performed By: #### P T #### [address] [address] PT Coag (PPP) [Time] 5.0 s High 0.9-1.3 [facility] Comment on above: Result Comment: Ashlie min K Antagonist (VKA) Therapeutic Range: INR 2 to 3 (Target INR of 2.5) Note: For patients treated with VKA drugs, such as warfarin, the [place] [employer] 2012 Guideline recommends [...] 2.5 to 3.5 (target INR of 3). Nylatt GH, et al. Chest 2012, 141:7S-47S Karen RA, et al. JAC 2017, 70: 252-289 Performed By: #### P T #### [address] [address] Type and Screenon 09-18-2019 ABO/RH(D) Positive Normal [facility] Comment on above: Performed By: #### T SCR ####[address] [id number] PROGRESSon 09-11-2019 PROGRESS HNO ID: [id number] Author: Nga BriggsRtSilas Umanzor Service: Radiology Author Type: Title 1 Tutor Type: Progress Notes Filed: 09/11/2019 3:23 PM [...] PERIPHERAL IV DATA: Not applicable SIGNED BY: RT Raquel September 11, 2019 3:22 PM [facility] XR CHEST 2V FRONTAL/LATon XR CHEST 2V [...] the spine. IMPRESSION: No acute radiographic abnormality. Admissions Dean: LELIA Transcribe Date/Time: Sep 11 2019 3:28P Dictated by : SARA GUTIERREZ MD This examination was interpreted and the report reviewed and electronically signed by: SARA GUTIERREZ MD on Sep 11 2019 3:28PM EST [id number] [facility] HOSPon 06-17-2019 HOSP Patient:Jorge Davis MRN: Height:5' [...] [E78.5] Atrial fibrillation (HCC) [I48.91] Atherosclerosis of [place] coronary artery of [place] heart without angina pectoris [I25.10] Diabetes mellitus type 2, controlled, without complications (HCC) [E11.9] Persistent atrial fibrillation (HCC) [I48.19] Paroxysmal atrial fibrillation (HCC) [I48.0] Paroxysmal atrial flutter (HCC) [I48.92] Allergies: No Known Allergies Date Verified:09/11/19 Lab Values Lab Value Units Date High Low POTA* 4.3 mmol/L 09/11/2019 5.1 3.7 FISH* 50.1 % 09/11/2019 51.0 39.0 Progress Notes ([facility]): RT Chava 09/11/2019 3:23 PM Signed Radiology Service Progress [...] PERIPHERAL IV DATA: Not applicable SIGNED BY: RT Raquel September 11, 2019 3:22 PM Progress Notes ([facility]): Venkat Evans MD 09/11/2019 2:16 PM Signed Ref[place]: [place] [id number] [facility] [address] Primary Care Physician: Declan Swanson MD Jorge Davis is a 74 year old male that presents today for evaluation of NON OBS Coronary artery disease involving [place] coronary artery of [place] heart without angina pectoris Paroxysmal A-fib (HCC) [...] this pm 2. Coronary artery disease involving [place] coronary artery of [place] heart without angina pectoris - ICD9: 414.01, [...] ?ms QTC Calculation(Bazett) : 457 ?ms R [place] : 0 ?degrees T [place] : 49 ?degrees PAST MEDICAL HISTORY Diagnosis [...] SURGICAL HISTORY OF minor hand surgery - [place] ANESTH,TOTAL KNEE ARTHROPLASTY 2006 Right Knee - [...] [facility] PROGRESSon 05-20-2019 PROGRESS HNO ID: [id number] Author: Jazmine Woodson (Rt) Castillo Peña Service: Radiology Author Type: Title 1 Tutor Type: Progress Notes Filed: 05/20/2019 9:32 AM [...] IV DATA: Not applicable SIGNED BY: Jarrod Aguayo RT May 20, 2019 9:32 AM [facility] XR CHEST 2V FRONTAL/LATon XR CHEST 2V [...] other acute chest process or interval change. Admissions Dean: LELIA Transcribe Date/Time: May 20 2019 9:45A Dictated by : HORTENSIA MEEKS MD This examination was interpreted and the report reviewed and electronically signed by: HORTENSIA MEEKS MD on May 20 2019 9:46AM EST [id number] [facility] Scooter 04-17-2019 CNPN Telephone (AVPRAD) JORGE DAVIS ([id number]) 1945 M Date Time Provider Department 04/17/19 MAGGI SCHNEIDER (THREAD CUTTER) AVPRAD During your visit today, we recorded the [...] [1735] Primary Visit Diagnosis:PAF (paroxysmal atrial fibrillation) (FORMERLY [facility]) [I48.0] Order(s):OUTSIDE VENDOR CARDIAC OUTPATIENT EXTENDED RHYTHM RECORDING (WITHOUT TELEMETRY) [0191251] Order #: [id number]: 1 Prescriptions as of 04/17/2019 Sig: [email or web address] [...] Atrial fibrillation (HCC) [I48.91] 07/08/2014 Atherosclerosis of [place] coronary artery of na*07/10/2015 Diabetes mellitus type 2, controlled, without c*07/10/2015 Persistent atrial fibrillation (HCC) [I48.19] 07/22/2015 Paroxysmal atrial fibrillation (HCC) [I48.0] 12/04/2015 Paroxysmal atrial flutter (HCC) [I48.92] 05/30/2018 Encounter Status:Closed by MAGGI SCHNEIDER on 04/19/19 [facility] PROCEDUREon 04-17-2019 PROCEDURE HNO ID: [id number] Author: [facility] Service: ? Author Type: Resource Type: Procedures [...] Denton MD May 13, 2019 8:42 AM [facility] Vital Signs Date Time Vital Sign Value Performing Clinician Facility 08-21-2023 11:37-0400 Body height 167.64 cm [facility] 08-21-2023 11:37-0400 Body mass index (BMI) [Ratio] 41.3 kg/m2 [facility] 08-21-2023 11:37-0400 Body weight 116.28 kg [facility] 08-21-2023 11:37-0400 Diastolic blood pressure 77 mm[Hg] [facility] 08-21-2023 11:37-0400 Heart rate 85 /min [facility] 08-21-2023 11:37-0400 Respiratory rate 12 /min [facility] 08-21-2023 11:37-0400 Systolic blood pressure 128 mm[Hg] [facility] 08-09-2023 13:44-0400 Body height 167.64 cm [facility] 08-09-2023 13:44-0400 Body mass index (BMI) [Ratio] 42.1 kg/m2 [facility] 08-09-2023 13:44-0400 Body weight 118.38 kg [facility] 08-09-2023 13:44-0400 Diastolic blood pressure 76 mm[Hg] [facility] 08-09-2023 13:44-0400 Heart rate 85 /min [facility] 08-09-2023 13:44-0400 Respiratory rate 16 /min [facility] 08-09-2023 13:44-0400 Systolic blood pressure 136 mm[Hg] [facility] 07-04-2023 08:58-0400 Body height 165.1 cm Shama Ibanez PA-C Work Phone: [facility] 07-04-2023 08:58-0400 Body mass index (BMI) [Ratio] 44.5 kg/m2 Shama Ibanez PA-C Work Phone: [facility] 07-04-2023 08:58-0400 Body weight 121.3 kg Shama Ibanez PA-C Work Phone: [facility] 07-04-2023 08:58-0400 Diastolic blood pressure 78 mm[Hg] Shama Ibanez PA-C Work Phone: [facility] 07-04-2023 08:58-0400 Heart rate 80 /min Shama Ibanez PA-C Work Phone: [facility] 07-04-2023 08:58-0400 Systolic blood pressure 146 mm[Hg] Shama Ibanez PA-C Work Phone: [facility] 06-05-2023 13:48-0400 Body weight 120.2 kg Venkat Emanuel MD Work Phone: [facility] 06-05-2023 13:48-0400 Diastolic blood pressure 78 mm[Hg] Venkat Emanuel MD Work Phone: [facility] 06-05-2023 13:48-0400 Heart rate 74 /min Venkat Emanuel MD Work Phone: [facility] 06-05-2023 13:48-0400 Systolic blood pressure 124 mm[Hg] Venkat Emanuel MD Work Phone: [facility] 03-23-2023 11:00-0500 Body height 167.64 cm Declan Ball Other [employer] Other 03-23-2023 11:00-0500 Body mass index (BMI) [Ratio] 43.15 kg/m2 Declan Ball Other [employer] Other 03-23-2023 11:00-0500 Body weight 121.29 kg Declan Ball Other [employer] Other 03-23-2023 11:00-0500 Diastolic blood pressure 89 mm[Hg] Declan Ball Other [employer] Other 03-23-2023 11:00-0500 Systolic blood pressure 142 mm[Hg] Declan Ball Other [employer] Other 01-03-2023 11:45-0400 Body height 167.64 cm Declan Ball Other [employer] Other 01-03-2023 11:45-0400 Body mass index (BMI) [Ratio] 42.57 kg/m2 Declan Ball Other [employer] Other 01-03-2023 11:45-0400 Body weight 119.66 kg Declan Ball Other [employer] Other 01-03-2023 11:45-0400 Diastolic blood pressure 78 mm[Hg] Declan Ball Other [employer] Other 01-03-2023 11:45-0400 Respiratory rate 16 /min Declan Ball Other [employer] Other 01-03-2023 11:45-0400 Systolic blood pressure 128 mm[Hg] Declan Ball Other [employer] Other 12-14-2022 11:30-0400 Body height 167.64 cm Declan Ball Other [employer] Other 12-14-2022 11:30-0400 Body mass index (BMI) [Ratio] 43.61 kg/m2 Declan Ball Other [employer] Other 12-14-2022 11:30-0400 Body weight 122.56 kg Declan Ball Other [facility] [employer] Other 12-14-2022 11:30-0400 Diastolic blood pressure 86 mm[Hg] Declan Ball Other [facility] Other 12-14-2022 11:30-0400 Respiratory rate 12 /min Declan Ball Other [facility] Other 12-14-2022 11:30-0400 Systolic blood pressure 141 mm[Hg] Declan Ball Other [facility] [employer] Other 12-13-2022 09:58-0400 Diastolic blood pressure 70 mm[Hg] DO Declan Ball Work Phone: [facility] 12-13-2022 09:58-0400 Heart rate 56 /min DO Declan Ball Work Phone: [facility] 12-13-2022 09:58-0400 Respiratory rate 16 /min DO Declan Ball Work Phone: [facility] 12-13-2022 09:58-0400 SaO2% (BldA) [Mass fraction] 95 % DO Declan Ball Work Phone: [facility] 12-13-2022 09:58-0400 Systolic blood pressure 149 mm[Hg] DO Declan Ball Work Phone: [facility] 12-13-2022 09:15-0400 Inhaled oxygen flow rate 3 L/min DO Declan Ball Work Phone: [facility] 12-13-2022 08:53-0400 Body height 157.48 cm DO Declan Ball Work Phone: [facility] 12-13-2022 08:53-0400 Body weight 120.2 kg DO Declan Ball Work Phone: [facility] 11-04-2022 14:45-0400 Body height 167.64 cm Declan Ball Other [employer] Other 11-04-2022 14:45-0400 Body mass index (BMI) [Ratio] 43.64 kg/m2 Declan Ball Other [employer] Other 11-04-2022 14:45-0400 Body weight 122.65 kg Declan Ball Other [employer] Other 11-04-2022 14:45-0400 Diastolic blood pressure 87 mm[Hg] Declan Ball Other [employer] Other 11-04-2022 14:45-0400 Respiratory rate 16 /min Declan Ball Other [employer] Other 11-04-2022 14:45-0400 Systolic blood pressure 148 mm[Hg] Dcelan Ball Other [employer] Other 10-13-2022 11:00-0400 Body height 167.64 cm Declan Ball Other [employer] Other 10-13-2022 11:00-0400 Body mass index (BMI) [Ratio] 43.41 kg/m2 Declan Ball Other [employer] Other 10-13-2022 11:00-0400 Body weight 122.02 kg Declan Ball Other [employer] Other 10-13-2022 11:00-0400 Diastolic blood pressure 75 mm[Hg] Declan Ball Other [employer] Other 10-13-2022 11:00-0400 Respiratory rate 16 /min Declan Ball Other [employer] Other 10-13-2022 11:00-0400 Systolic blood pressure 132 mm[Hg] Declan Ball Other [employer] Other 09-15-2022 09:15-0400 Body height 167.64 cm Declan Ball Other [employer] Other 09-15-2022 09:15-0400 Body mass index (BMI) [Ratio] 43.22 kg/m2 Declan Ball Other [employer] Other 09-15-2022 09:15-0400 Body weight 121.47 kg Declan Ball Other [employer] Other 09-15-2022 09:15-0400 Diastolic blood pressure 81 mm[Hg] Declan Ball Other [employer] Other 09-15-2022 09:15-0400 Respiratory rate 12 /min Declan Ball Other [employer] Other 09-15-2022 09:15-0400 Systolic blood pressure 139 mm[Hg] Declan Ball Other [employer] Other 08-16-2022 11:30-0400 Body height 167.64 cm Declan Ball Other [employer] Other 08-16-2022 11:30-0400 Body mass index (BMI) [Ratio] 43.19 kg/m2 Declan Ball Other [employer] Other 08-16-2022 11:30-0400 Body weight 121.38 kg Declan Ball Other [employer] Other 08-16-2022 11:30-0400 Diastolic blood pressure 73 mm[Hg] Declan Ball Other [employer] Other 08-16-2022 11:30-0400 Respiratory rate 12 /min Declan Ball Other [employer] Other 08-16-2022 11:30-0400 Systolic blood pressure 124 mm[Hg] Declan Ball Other [employer] Other 06-24-2022 14:14-0400 Body height 165.1 cm Ruben Denton MD Work Phone: [facility] 06-24-2022 14:14-0400 Body weight 122.02 kg Ruben Denton MD Work Phone: [facility] 06-24-2022 14:14-0400 Diastolic blood pressure 82 mm[Hg] Ruben Denton MD Work Phone: [facility] 06-24-2022 14:14-0400 Heart rate 69 /min Ruben Denton MD Work Phone: [facility] 06-24-2022 14:14-0400 Systolic blood pressure 155 mm[Hg] Ruben Denton MD Work Phone: [facility] 05-16-2022 11:30-0500 Body height 167.64 cm Declan Ball Other [employer] Other 05-16-2022 11:30-0500 Body mass index (BMI) [Ratio] 44.87 kg/m2 Declan Ball Other [employer] Other 05-16-2022 11:30-0500 Body weight 126.1 kg Declan Ball Other [employer] Other 05-16-2022 11:30-0500 Diastolic blood pressure 82 mm[Hg] Declan Ball Other [employer] Other 05-16-2022 11:30-0500 Respiratory rate 12 /min Declan Ball Other [employer] Other 05-16-2022 11:30-0500 SaO2% (BldA) [Mass fraction] 97 % Declan Ball Other [employer] Other 05-16-2022 11:30-0500 Systolic blood pressure 122 mm[Hg] Declan Ball Other [employer] Other 03-22-2022 09:30-0500 Body height 167.64 cm Declan Ball Other [employer] Other 03-22-2022 09:30-0500 Body mass index (BMI) [Ratio] 44.41 kg/m2 Declan Ball Other [employer] Other 03-22-2022 09:30-0500 Body weight 124.83 kg Declan Ball Other [employer] Other 03-22-2022 09:30-0500 Diastolic blood pressure 82 mm[Hg] Declan Ball Other [employer] Other 03-22-2022 09:30-0500 Respiratory rate 20 /min Declan Ball Other [employer] Other 03-22-2022 09:30-0500 Systolic blood pressure 122 mm[Hg] Declan Ball Other [employer] Other 12-31-2021 13:06-0400 Body weight 122.02 kg Venkat Emanuel MD Work Phone: [facility] 12-31-2021 13:06-0400 Diastolic blood pressure 70 mm[Hg] Venkat Emanuel MD Work Phone: [facility] 12-31-2021 13:06-0400 Heart rate 84 /min Venkat Emanuel MD Work Phone: [facility] 10-21-2022 13:06-0400 SaO2% (BldA) [Mass fraction] 97 % Venkat Emanuel MD Work Phone: [facility] 12-31-2021 13:06-0400 Systolic blood pressure 110 mm[Hg] Venkat Emanuel MD Work Phone: [facility] 06-25-2021 13:14-0400 Body height 165.1 cm Ruben Denton MD Work Phone: [facility] 06-25-2021 13:14-0400 Body weight 124.74 kg Ruben Denton MD Work Phone: [facility] 06-25-2021 13:14-0400 Diastolic blood pressure 80 mm[Hg] Ruben Denton MD Work Phone: [facility] 06-25-2021 13:14-0400 Heart rate 69 /min Ruben Denton MD Work Phone: [facility] 06-25-2021 13:14-0400 Systolic blood pressure 132 mm[Hg] Ruben Denton MD Work Phone: [facility] 05-20-2021 10:00-0500 Body height 167.64 cm Bruce Rl WALTERS Other [employer] Other 05-20-2021 10:00-0500 Body mass index (BMI) [Ratio] 43.9 kg/m2 Bruce Jungisle II Other [employer] Other 05-20-2021 10:00-0500 Body weight 123.38 kg Bruce Jungisle II Other [employer] Other Encounters Encounter Date Encounter Type Care Provider Facility Start: 11-15-2023 End: 11-15-2023 Telephone encounter Ruben Denton MD Work Phone: Cardiology Comment on above: Received Outside Med ical Records Start: 10-03-2023 End: 10-03-2023 ambulatory JOHN CHURCHILL Not Available Start: 09-19-2023 Telephone encounter Ruben murillo MD Work Phone: Cardiology Comment on above: Received Outside Med ical Records Start: 08-31-2023 End: 08-31-2023 ambulatory JARROD DIALLO Not Available Start: 08-23-2023 End: 08-23-2023 ambulatory JOHN CANELARICHMOND Not Available Start: 08-22-2023 Telephone encounter Ruben murillo MD Work Phone: Cardiology Comment on above: Received Outside Med ical Records Start: 08-21-2023 End: 08-21-2023 ambulatory [facility] Work Phone: Start: 08-21-2023 End: 08-21-2023 Patient encounter procedure [facility] Work Phone: Start: 08-09-2023 End: 08-09-2023 ambulatory [facility] Work Phone: Start: 08-09-2023 End: 08-09-2023 Patient encounter procedure [facility] Work Phone: Start: 07-25-2023 Telephone encounter Ruben murillo MD Work Phone: Cardiology Comment on above: Received Outside Med ical Records (INR) Start: 07-04-2023 End: 07-04-2023 ambulatory [facility] Facility:[facility] Start: 07-04-2023 End: 07-04-2023 Patient encounter procedure Shama Ibanez PA-C Work Phone: Cardiology Comment on above: Atrial fibrillation, persistent (HCC) (Primary Dx); S/P ablation of atrial fibrillation; On continuous oral anticoagulation Start: 06-27-2023 Telephone encounter Ruben murillo MD Work Phone: Cardiology Comment on above: Received Outside Med ical Records Start: 06-23-2023 End: 06-23-2023 ambulatory [facility] Work Phone: Start: 06-23-2023 End: 06-23-2023 Patient encounter procedure [facility] Work Phone: Start: 06-20-2023 End: 06-20-2023 ambulatory JARROD S IMANI Not Available Start: 06-05-2023 End: 06-05-2023 ambulatory VENKAT EVANS Facility:[facility] Start: 06-05-2023 End: 06-05-2023 Patient encounter procedure [...] 03-23-2023 End: 03-23-2023 ambulatory Declan Swanson Other [employer] Other Start: 03-23-2023 Office outpatient vi sit 15 minutes Declan Swanson [facility] Start: 03-10-2023 End: 03-10-2023 ambulatory JARROD DIALLO [...] 01-03-2023 End: 01-03-2023 ambulatory Declan Swanson Other [employer] Other Start: 01-03-2023 Office outpatient vi sit 15 minutes Declan Ball [facility] Start: 01-03-2023 Telephone encounter Declan Swanson [facility] Start: 01-02-2023 End: 01-02-2023 ambulatory Declan Ball Other [employer] Other Start: 01-02-2023 Office outpatient vi sit 15 minutes Declan Ball [facility] Start: 12-23-2022 Telephone encounter Ruben murillo MD Work Phone: Cardiology Comment on above: Received Outside Med ical Records Start: 12-20-2022 End: 12-20-2022 ambulatory Ruben Celis Other [employer] Other Start: 12-20-2022 Office outpatient vi sit 15 minutes Ruben Celis [facility] Start: 12-14-2022 End: 12-14-2022 ambulatory Declan Swanson Other [employer] Other Start: 12-14-2022 Office outpatient vi sit 25 minutes Declan Ball [facility] Start: 12-13-2022 (Procedure) Short Ruben Celis [facility] Start: 12-13-2022 End: 12-13-2022 ambulatory Ruben Celis Facility:[facility] Start: 12-13-2022 End: 12-13-2022 Admission to same day surgery center DO Declan Ball Work Phone: [facility] Work Phone: Start: 12-13-2022 End: 12-13-2022 ambulatory DO Declan Ball Work Phone: [facility] Work Phone: Start: 11-24-2022 End: 11-24-2022 Patient encounter procedure DO Declan Ball Work Phone: [facility] [address] Work Phone: Start: 11-24-2022 End: 11-24-2022 ambulatory DO Declan Swanson Work Phone: [facility] Work Phone: Start: 11-24-2022 Telephone encounter [facility] Start: 11-04-2022 End: 11-04-2022 ambulatory Declan Swanson Other [employer] Other Start: 11-04-2022 Office outpatient vi sit 15 minutes Declan Swanson [facility] Start: 11-04-2022 Telephone encounter Declan [facility] Start: 10-28-2022 Telephone encounter Ruben murillo MD Work Phone: Cardiology Comment on above: Received Outside Med ical Records Start: 10-26-2022 End: 10-26-2022 ambulatory Ruben Celis Other [employer] Other Start: 10-26-2022 Office outpatient vi sit 25 minutes Ruben Celis [facility] Start: 10-24-2022 End: 10-24-2022 ambulatory Declan Swanson Other [employer] Other Start: 10-24-2022 Telephone encounter Declan [facility]AN [facility] Start: 10-13-2022 End: 10-13-2022 ambulatory Declan Swanson Other [employer] Other Start: 10-13-2022 Office outpatient vi sit 15 minutes Declan Swanson [facility] Start: 10-13-2022 Telephone encounter Ruben murillo MD Work Phone: Cardiology Comment on above: Received Outside Med ical Records Start: 10-12-2022 Office outpatient vi sit 25 minutes Bruce Shine II [facility] Start: 10-12-2022 End: 10-12-2022 ambulatory Declan Swanson Facility:[facility] Start: 10-12-2022 End: 10-12-2022 ambulatory DO Declan Swanson Work Phone: [facility] Work Phone: Start: 10-12-2022 End: 10-12-2022 Patient encounter procedure DO Declan Swanson Work Phone: [facility] Start: 09-16-2022 Telephone encounter Ruben murillo MD Work Phone: Cardiology Comment on above: Received Outside Med ical Records (INR Report) Start: 09-15-2022 End: 09-15-2022 ambulatory Declan Swanson Other [employer] Other Start: 09-15-2022 Office outpatient vi sit 15 minutes Declan Swanson [facility] Start: 09-07-2022 Telephone encounter Venkat gomez MD Work Phone: Cardiology Comment on above: Results Start: 09-01-2022 Telephone encounter Ruben murillo MD Work Phone: Cardiology Comment on above: Received Outside Med ical Records Start: 08-31-2022 End: 08-31-2022 ambulatory Declan Swanson Other [employer] Other Start: 08-31-2022 Telephone encounter Declan Swanson [facility] Start: 08-29-2022 End: 08-29-2022 ambulatory Declan Swanson Other [employer] Other Start: 08-29-2022 Telephone encounter Declan Swanson [facility] Start: 08-16-2022 End: 08-16-2022 ambulatory Declan Swanson Other [employer] Other Start: 08-16-2022 Patient encounter procedure Declan Swanson [facility] Start: 08-16-2022 Telephone encounter Declan Swanson [facility] Start: 07-21-2022 Telephone encounter Ruben murillo MD Work Phone: Cardiology Comment on above: Received Outside Med ical Records Start: 07-14-2022 Telephone encounter Venkat gomez MD Work Phone: Cardiology Comment on above: Results Start: 07-11-2022 End: 08-10-2022 ambulatory SHAIKH Julianne MORALES Facility:[facility] Start: 06-27-2022 End: 06-27-2022 ambulatory Bruce Shine ROMEO Other [employer] Other Start: 06-27-2022 Telephone encounter Ruben murillo [...] Class III, BMI >= 40; Atherosclerosis of [place] coronary artery of [place] heart without angina pectoris Start: 06-23-2022 Telephone encounter Ruben murillo MD Work Phone: Cardiology Comment on above: Received Outside [facility] Start: 06-13-2022 End: 07-08-2022 ambulatory SHAIKH Julianne MORALES Facility:[facility] Start: 05-27-2022 Telephone encounter Ruben murillo MD Work Phone: Cardiology Comment on above: Received Outside [facility] Start: 05-16-2022 End: 05-17-[address] DECLAN SWANSON [employer] Other Start: 05-16-2022 Office outpatient vi sit 25 minutes Declan Swanson [facility] Start: 05-11-2022 End: 06-10-[address] DECLAN SWANSON Facility:[facility] Start: 04-27-2022 End: 04-27-2022 ambulatory Declan Swanson Other [employer] Other Start: 04-27-2022 Telephone encounter Declan Swanson [facility] Start: 04-13-2022 End: 05-11-[address] DECLAN SWANSON Facility:[facility] Start: 03-22-2022 End: 03-22-2022 ambulatory Declan Swanson Other [employer] Other Start: 03-22-2022 Office outpatient vi sit 15 minutes Declan Swanson 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 angina pectoris; Controlled type 2 diabetes mellitus without complication, without long-term current use of insulin (HCC) Start: 12-21-2021 Telephone encounter Ruben murillo MD Work Phone: Cardiology Comment on above: Received Outside Med ical Records Start: 12-12-2021 End: 01-10-2022 ambulatory SHAIKH Julianne MORALES Facility:[facility] Start: 12-07-2021 Telephone encounter Ruben murillo MD Work Phone: Cardiology Comment on above: Received Outside Med ical Records Start: 11-11-2021 End: 12-11-2021 ambulatory PIERREDAVID MORALES Facility:[facility] Start: 10-11-2021 End: 11-10-2021 ambulatory SHAIKH Julianne MORALES Facility:[facility] Start: 09-24-2021 End: 09-25-[address] DECLAN SWANSON Facility:[facility] Start: 09-22-2021 End: 09-23-[address] DECLAN SWANSON Facility:[facility] Start: 09-10-2021 End: 10-08-2021 ambulatory PIERRE H FALINDA Facility:[facility] Start: 07-08-2021 Telephone encounter Ruben murillo MD Work Phone: Cardiology Comment on above: Received Outside Med ical Records (INR Report 07/08/2021) Start: 06-25-2021 End: 06-25-2021 Patient encounter procedure Ruben Denton MD Work Phone: Cardiology Comment on above: Atrial fibrillation, persistent (HCC) (Primary Dx); S/P ablation of atrial fibrillation; Obesity, Class III, BMI >= 40; Controlled type 2 diabetes mellitus without complication, without long-term current use of insulin (HCC); CHRISTIAN (obstructive sleep apnea); Atherosclerosis of [place] coronary artery of [place] heart without angina pectoris; Encounter for current long-term use of anticoagulants Acute on chronic damian stolic heart failure (HCC) (Primary Dx); Primary hypertension Start: 06-10-2021 Telephone encounter Ruben murillo MD Work Phone: Cardiology Comment on above: Received Outside Med ica Records (INR Results 06/10/2021) Start: 05-31-2021 Telephone encounter Ruben murillo MD Work Phone: Cardiology Comment on above: Patient Update Start: 05-20-2021 End: 05-20-2021 ambulatory Bruce Shine II Other [employer] Other Start: 05-20-2021 Office outpatient ne w 45 minutes Bruce Shine II [facility] Start: 04-21-2021 Telephone encounter Ruben murillo MD Work Phone: Cardiology Comment on above: Results (PT INR ) Start: 12-29-2020 Adult health examination Kali lisy Swanson Other [employer] Other Procedures Date Procedure Procedure Detail Performing Clinician Start: 06-05-2023 Ecg routine ecg w/le ast 12 lds i&r only [facility] Provider Start: 12-13-2022 Epidural injection o f lumbar spine using fluoroscopic guidance DO [employer] Work Phone: Start: 11-24-2022 MR lumbar spine wo con DO [employer] Work Phone: Start: 11-24-2022 XR pre/post mri xray DO [employer] Work Phone: Start: 10-12-2022 Plain x-ray of pelvi s and lower extremity DO Declan [employer] Work Phone: Start: 10-12-2022 X-ray of both knees DO [employer] Work Phone: Start: 10-23-2019 Antibody screen Comment on above: Performed By: #### T SCR ####[facility] [place], [place] [phone] Start: 09-18-2019 Antibody screen Comment on above: Performed By: #### T SCR ####[place] [id number] [place], [place] [id number] Start: 12-10-2015 Screening for malign ant neoplasm of colon Declan Swanson Other Start: 06-03-2015 General examination of patient Declan Swanson Other Start: 11-04-2013 Screening for malign ant neoplasm of prostate Declan Swanson Other Depression screening Verenice Swanson Other Depression screening Verenice Swanson Other H/O: artificial joint Bruce [place] Other History of operative procedure on knee Bruce [place] Other Screening for malign ant neoplasm of colon Bruce Rl II Other Screening for malign ant neoplasm of prostate Declan Swanson Other Plan of Treatment Date Care Activity Detail Author Start: 03-16-2033 Urine microalbumin profile DTa P,Tdap,Td Vaccine (2 - Td or Tdap) [facility] Start: 06-04-2024 BP Controlled (<130/80) BP Con trolled (<130/80) [facility] Start: 12-08-2023 End: 12-08-2023 Patient encounter procedure Cardiology Comment on above: echo Return in about 6 mo nths (around 12/06/2023). Start: 11-12-2023 Covid-19 Vaccine () Covid-19 Vaccine () [facility] Start: 11-12-2023 Influenza vaccination [facility] Start: 03-13-2023 Advance Directive Discussion Advance Directive Discussion [facility] Start: 03-13-2023 Behavioral Health Screening Behavioral Health Screening [facility] Start: 03-13-2023 Depression Assessment Depression Ass essment [facility] Start: 12-31-2022 BP CONTROLLED (<130/80) BP CON TROLLED (<130/80) [facility] Start: 12-13-2022 [facility] Start: 11-11-2022 Covid-19 Vaccine ( season) Covid-19 Vaccine ( season) [facility] Start: 11-11-2022 [facility]: 03-13-2022 ADVANCE DIRECTIVE DISCUSSION ADVANCE DIRECTIVE DISCUSSION [facility] Start: 03-13-2022 DEPRESSION ASSESSMENT DEPRESSION ASS ESSMENT [facility] Start: 11-11-2021 Influenza vaccination INFLUENZA (#1) [facility] Start: 09-18-2021 Hepatitis B surface antibody level LDL CHOLESTEROL [facility] Start: 06-25-2021 End: 08-25-2021 CBC panel - Blood by Automated count CBC Lab Routine Acute on chronic diastolic heart failure (HCC) Primary hypertension Expected: 06/25/2021, Expires: 08/25/2021 [facility] Work Phone: Comment on above: Expected: 06/25/2021 , Expires: 08/25/2021 Start: 06-25-2021 End: 08-25-2021 Comprehensive metabolic 2000 panel - Serum or Plasma COMP METABOLIC PANEL Lab Routine Acute on chronic diastolic heart failure (HCC) Primary hypertension Expected: 06/25/2021, Expires: 08/25/2021 [facility] Work Phone: Comment on above: Expected: 06/25/2021 , Expires: 08/25/2021 Start: 06-25-2021 End: 08-25-2021 LIPID PANEL BASIC LIPID PANEL BASIC Lab Routine Acute on chronic diastolic heart failure (HCC) Primary hypertension Expected: 06/25/2021, Expires: 08/25/2021 [facility] Work Phone: Comment on above: Expected: 06/25/2021 , Expires: 08/25/2021 Start: 05-20-2021 COVID-19 VACCINE (4 - Booster for Moderna series) COVID-19 VACCINE (4 - Booster for Moderna series) [facility] Start: 03-21-2021 Hemoglobin A1c measurement HbA1C [facility] Start: 03-21-2021 Hemoglobin A1c/Hemoglobin.total in Blood HBA1C [facility] Start: 03-17-2021 COVID-19 VACCINE (4 - Booster for Moderna series) COVID-19 VACCINE (4 - Booster for Moderna series) [facility] Start: 03-17-2021 COVID-19 VACCINE (4 - Moderna series) COVID-19 VACCINE (4 - Moderna series) [facility] Start: 03-13-2021 ADVANCE DIRECTIVE DISCUSSION ADVANCE DIRECTIVE DISCUSSION [facility] Start: 03-13-2021 DEPRESSION ASSESSMENT DEPRESSION ASS ESSMENT [facility] Start: 11-11-2020 Influenza vaccination INFLUENZA (#1) [facility] Start: 11-01-2020 COVID-19 VACCINE (3 - Booster for Moderna series) COVID-19 VACCINE (3 - Booster for Moderna series) [facility] Start: 11-09-2015 Pneumococcal Vaccine : 65+ (2 - PCV) Pneumococcal Vaccine: 65+ (2 - PCV) [facility] Start: 11-09-2015 Pneumococcal Vaccine : 65+ (2 of 2 - PCV) Pneumococcal Vaccine: 65+ (2 of 2 - PCV) [facility] Start: 11-09-2015 PNEUMOCOCCAL: 65+ (2 - PCV) PNEUMOCOCCAL: 65+ (2 - PCV) [facility] Start: 2010 ADVANCE DIRECTIVE DISCUSSION ADVANCE DIRECTIVE DISCUSSION [facility] Start: 2005 Hepatitis B Vaccine (1 of 3 - Risk 3-dose series) Hepatitis B Vaccine (1 of 3 - Risk 3-dose series) [facility] Start: 2005 RSV Vaccine (1 - 1-d ose 60+ series) RSV Vaccine (1 - 1-dose 60+ series) [facility] Start: 1995 SHINGRIX VACCINE (1 of 2) SHAH GRIX VACCINE (1 of 2) [facility] Start: 01-17-1964 Urine microalbumin profile [facility] Start: 1963 ANNUAL PCP TEAM RN MED SURG FRANCESCA DISEASE VISIT ANNUAL PCP TEAM CHRONIC DISEASE VISIT [facility] Start: 1963 Anxiety Screening Anxiety Screening [facility] Start: 1963 BP CONTROLLED (<130/80) BP CON TROLLED (<130/80) [facility] Start: 1963 Depression Screening Depression Scre ening [facility] Start: 1963 HEPATITIS C SCREENING HEPATITIS C SC ARUNA [facility] Start: 1963 Hepatitis C screening Hepatitis C Sc reening [facility] Start: 1957 Adult depression scr eening assessment DEPRESSION SCREENING [facility] Start: 1955 3 comp foot exam completed DIABETIC FOOT EXAM [facility] Start: 1955 Diabetic foot examination Diabetic F oot Exam [facility] Start: 1955 Glaucoma screening Dilated Retinal E xam [facility] Start: 1955 Hepatitis B screening URINE ALBUMIN:CREATININE RATIO [facility] Start: 1955 Hepatitis C antibody , confirmatory test DILATED RETINAL EXAM [facility] End: 06-01-2022 ECG COMPLETE ECG COMPLETE ECG Routine Atrial fibrillation, persistent (HCC) 1 Occurrences starting 06/01/2021 until 06/01/2022 [facility] Work Phone: Comment on above: 1 Occurrences starti ng 06/01/2021 until 06/01/2022 End: 06-25-2022 ECG COMPLETE ECG COMPLETE ECG Routine Atrial fibrillation, persistent (HCC) 1 Occurrences starting 06/25/2021 until 06/25/2022 [facility] Work Phone: Comment on above: 1 Occurrences starti ng 06/25/2021 until 06/25/2022 End: 06-25-2023 ECG COMPLETE ECG COMPLETE ECG Routine Atrial fibrillation, persistent (HCC) 1 Occurrences starting 06/24/2022 until 06/25/2023 [facility] Work Phone: Comment on above: 1 Occurrences starti ng 06/24/2022 until 06/25/2023 ECG COMPLETE ECG COMPLETE ECG 06/05/2023 2:22 PM EDT [facility] End: 12-31-2022 Echocardiography ECHO Cardiology Routine Chronic diastolic heart failure (HCC) 1 Occurrences starting 12/31/2021 until 12/31/2022 [facility] Work Phone: Comment on above: 1 Occurrences starti ng 12/31/2021 until 12/31/2022 End: 06-04-2024 Echocardiography ECHO Cardiology Routine Chronic diastolic heart failure (HCC) 1 Occurrences starting 06/05/2023 until 06/04/2024 [facility] Work Phone: Comment on above: 1 Occurrences starti ng 06/05/2023 until 06/04/2024 Patient Education Felter Non Damian gnostic Block [facility] Work Phone: Patient referral [facility] Phone: [facility] Immunizations Immunization Date Immunization Notes Care Provider Fa [facility] 01-25-2022 influenza, high dose seasonal, preservative-free Declan Swanson Other [employer] Other 01-25-2022 influenza virus vaccine, unspecified formulation Ruben Denton MD Work Phone: [facility] 01-20-2021 COVID-19 Vaccine Moderna - Documentation Purposes Only Declan Swanson Other [facility] 12-29-2020 influenza virus vaccine, split virus (incl. purified surface antigen) Declan Swanson Other [employer] Other 12-29-2020 influenza virus vaccine, unspecified formulation [facility] 06-01-2020 COVID-19 vaccine, fu ll dose (MODERNA) Ruben Denton MD Work Phone: [facility] 05-04-2020 COVID-19 vaccine, fu ll dose (MODERNA) Ruben Denton MD Work Phone: [facility] 01-02-2019 influenza virus vaccine, split virus (incl. purified surface antigen) Declan Swanson Other [employer] Other 01-02-2019 influenza virus vaccine, unspecified formulation [facility] 12-01-2017 influenza virus vaccine, split virus (incl. purified surface antigen) Declan Swanson Other [employer] Other 12-01-2017 influenza virus vaccine, unspecified formulation [facility] 12-01-2017 Seasonal trivalent influenza vaccine, adjuvanted, preservative free Ruben Denton MD Work Phone: [facility] 01-08-2016 seasonal influenza, intradermal, preservative free Ruben Denton MD Work Phone: [facility] 12-10-2015 influenza virus vaccine, split virus (incl. purified surface antigen) Declan Swanson Other [facility] Other 12-10-2015 influenza virus vaccine, unspecified formulation [facility] 12-10-2015 influenza, high dose seasonal, preservative-free Ruben Denton MD Work Phone: [facility] 06-04-2015 pneumococcal conjuga te vaccine, 13 valent Declan Swanson Other [facility] 02-09-2015 influenza, injectabl e, quadrivalent, preservative free Ruben Denton MD Work Phone: [facility] 11-08-2014 pneumococcal polysaccharide vaccine, 23 valent Ruben Denton MD Work Phone: [facility] 11-21-2013 tetanus and diphther ia toxoids, adsorbed, preservative free, for adult use (5 Lf of tetanus toxoid and 2 Lf of diphtheria toxoid) Declan Swanson Other [facility] 12-23-2012 tetanus and diphther ia toxoids, adsorbed, preservative free, for adult use (5 Lf of tetanus toxoid and 2 Lf of diphtheria toxoid) Declan Swanson Other [facility] 12-21-2011 pneumococcal polysaccharide vaccine, 23 valent Declan Swanson Other [facility] Payers Date Payer Category Payer Self-pay [id number] 2019 Unknown MMO MMO MEDICARE SUPPLEMENT [id number] 2019-Present [phone] [address] [place] [address] Indemnity [id number] 2019 Unknown MMO MMO MEDICARE SUPPLEMENT [id number] 2019-Present [phone] [address] [place] [address] Indemnity [id number] 2010 Medicare MEDICARE MEDICAR E A AND B [id number] 2010-Present [phone] [address] [address] [place] [address] Medicare [id number] 2010 Medicare MEDICARE MEDICAR E A AND B [id number] 2010-Present [phone] [place] [address] Medicare [id number] 1959 Medicare [id number] 1959 Unknown [id number] 2.16.840.1.163718.19 1945 Unknown [id number] 2.16.840.1.488876.3.579.2.593 1945 Unknown [id number] 2.16.840.1.619657.3.579.2.593 1945 Unknown [id number] 2.16.840.1.940320.3.579.2.593 1945 Unknown [id number] 2.16.840.1.509101.3.579.2.593 1945 Unknown [id number] 2.16.840.1.338499.3.579.2.593 1945 Unknown [id number] 2.16.840.1.415341.3.579.2.593 1945 Unknown [id number] 2.16.840.1.367379.3.579.2.593 1945 Unknown [id number] 2.16.840.1.180846.3.579.2.593 1945 Unknown [id number] 2.16.840.1.042807.3.579.2.593 1945 Unknown [id number] 2.16.840.1.894773.3.579.2.593 1945 Unknown [id number] 2.16.840.1.726340.3.579.2.593 1945 Unknown [id number] 2.16.840.1.026329.3.579.2.593 1945 Unknown [id number] 2.16.840.1.287363.3.579.2.593 1945 Unknown [id number] 2.16.840.1.221565.3.579.2.593 1945 Unknown [id number] 2.16.840.1.512072.3.579.2.593 1945 Unknown [id number] 2.16.840.1.661749.3.579.2.593 1945 Unknown [id number] 2.16.840.1.772047.3.579.2.593 1945 Unknown [id number] 2.16.840.1.218509.3.579.2.593 1945 Unknown [id number] 2.16.840.1.167304.3.579.2.1259 1945 Unknown [id number] 2.16.840.1.645981.3.579.2.1259 1945 Unknown [id number] 2.16.840.1.862108.3.579.2.1259 1945 Unknown [id number] 2.16.840.1.816254.3.579.2.1259 1945 Unknown [id number] 2.16.840.1.908507.3.579.2.1259 Unknown [id number] 2.16.840.1.391589.19 Unknown [facility] Health Claims [id number] Unknown [id number] 2.16.840.1.048334.3.579.2.531 Unknown [id number] 2.16840.1.934930.3.579.2.531 Unknown [id number] 2.16.840.1.865776.3.579.2.531 Social History Date Type Detail Facility Start: 06-18-2013 End: 06-05-2023 Tobacco smoking status NHIS Ex-smoker [facility] End: 12-11-2012 History of tobacco use Current smoker [facility] End: 12-11-2012 History of tobacco use Cigar Smoker [facility] Start: 06-18-2013 End: 06-05-2023 Tobacco use and exposure Smokeless tobacco non-user [facility] Start: 09-18-2020 End: 07-04-2023 Alcohol intake Ex-drinker (finding) [facility] Start: 1945 Sex Assigned At Not on file [facility] Start: 06-15-2021 End: 12-31-2021 Exposure to SARS-CoV-2 (event) Not sure [facility] Work Phone: Start: 06-25-2021 End: 06-05-2023 Sex Assigned At [facility] Start: 1945 Sex Assigned At Male F [facility] Start: 06-25-2021 End: 06-05-2023 History of Social function [facility] PHQ2 Score 0 [facility] Goals Date Patient Goal Desired Activity /State Personal health goal Clinical Notes 04-21-2021 to 11-15-2023 Telephone Encounter - Bryan Dwyer - 11/15/2023 2:36 PM EDTTelephone Encounter - Bryan Dwyer - 11/15/2023 2:36 PM EDTTelephone Encounter - Bryan Dwyer - 09/19/2023 3:52 PM EDT Note Date & Type Note Facility 11-15-2023 Telephone encounter Note Documentation scanned into EP outside database Scanned INR results into epic [facility] 11-15-2023 Miscellaneous Notes Documentation scanned into EP outside database Scanned INR results into epic documented in this encounter [facility] 09-19-2023 Telephone encounter Note Documentation scanned into EP outside database Scanned INR results into epic [facility] 09-19-2023 Miscellaneous Notes Documentation scanned into EP outside database Scanned INR results into epic documented in this encounter [facility] 08-22-2023 Telephone encounter Note Documentation scanned into EP outside database Scanned INR results into epic [facility] 08-22-2023 Miscellaneous Notes Documentation scanned into EP outside database Scanned INR results into epic documented in this encounter [facility] 07-25-2023 Telephone encounter Note Documentation scanned into EP outside database Scanned INR results into Epic [facility] 07-25-2023 Miscellaneous Notes Documentation scanned into EP outside database Scanned INR results into Epic documented in this encounter [facility] 07-04-2023 History of Present illness Narrative Images from the original note were not included. [facility] Department of Cardiovascular Medicine SECTION OF CARDIAC PACING and ELECTROPHYSIOLOGY OUTPATIENT VISIT DATE July 04, 2023 OUTPATIENT VISIT TYPE ESTABLISHED PRIMARY CARE PHYSICIAN: Declan Swanson (Peggy) [address] [place] [address] CHIEF COMPLAINT: Cardiology follow up HISTORY OF [...] Club Foot Surgery PAST SURGICAL HISTORY OF 2009 Anthroscopy Left Shoulder PAST SURGICAL HISTORY OF [...] with more than 50% of the total [id number] time of the visit in counseling / coordination of care. documented in this encounter [facility] 07-04-2023 Note HNO ID: [id number] Author: SHAMA IBANEZ PA-C Service: ? Author Type: Physician Engineering Technician Type: Progress Notes Filed: 07/04/2023 10:19 Note Text: [facility] Department of Cardiovascular Medicine SECTION OF CARDIAC PACING and ELECTROPHYSIOLOGY OUTPATIENT VISIT DATE July 04, 2023 OUTPATIENT VISIT TYPE ESTABLISHED PRIMARY CARE PHYSICIAN: Declan Swanson ([place]) [address] [place] [address] CHIEF COMPLAINT: Cardiology follow up HISTORY OF [...] Right Knee ARTHRP KNE CONDYLEANDPLATU MEDIALANDLAT COMPARTMENTS 2000 Left Knee CARDIAC CATH 2009 [...] OF minor hand surgery REPAIR UMBILICAL HERNIA 2008 ROTATOR CUFF REPAIR 1993 Left Shoulder ROTATOR [...] wheezing or rhonchi (more content not included)... [facility] 07-04-2023 Instructions Shama Ibanez PA-C - 07/04/2023 9:58 AM EDT - No changes to medications today - Will have you see Dr Evans with echo as scheduled - Will have you see Dr Denton in 1 year - Call us sooner with any questions or concerns Shama Ibanez PA-C documented in this encounter [facility] 06-27-2023 Miscellaneous Notes Documentation scanned into EP [employer] database Scanned INR results into [employer] documented in this encounter [facility] 06-05-2023 Note HNO ID: [id number] Author: VENKAT EVANS MD Service: ? Author Type: Physician Type: Progress Notes Filed: 06/05/2023 14:25 Note Text: Referring Physician: No referring provider defined for this encounter. Primary Care Physician: DO Jorge Unger Ryan is a 78 year old male that [...] Date Value 09/18/2020 78 Venkat Evans MD [facility] 06-05-2023 History of Present illness Narrative Referring Physician: No referring provider defined for this encounter. Primary Care Physician: DO Jorge Unger Ryan is a 78 year old male that [...] Venkat Evans MD documented in this encounter [facility] 05-30-2023 Miscellaneous Notes Documentation scanned into [employer] outside database Scanned into [employer] documented in this encounter [facility] 05-02-2023 Miscellaneous Notes Documentation scanned into [employer] outside database documented in this encounter [facility] 04-06-2023 Miscellaneous Notes Outside medical records (INR report 04/04/2023) scanned into [employer] and shared [employer] drive. documented in this encounter [facility] 03-23-2023 Evaluation note Encounter Date Diagnosis [...] further antibiotics necessary Call w/ increased tenderness [employer] Other 11-28-2023 Miscellaneous Notes* Telephone Encounter - Suman Garvin - 02/07/2023 9:31 AM EST Outside medical records (INR report 02/07/2023) scanned into [employer] and shared EP drive. documented in this [facility]11-01-2023 Miscellaneous Notes* Telephone Encounter - Suman Garvin - 01/11/2023 7:24 AM EDT Outside medical records (INR Report 01/10/2023) scanned into [employer] EP drive. documented in this [facility]10-26-2023 Miscellaneous Notes* Telephone Encounter - Suman Garvin - 01/05/2023 6:48 AM EDT Images from the original note were not included. Outside medical records (INR report 12/27/2022) scanned into [employer] EP drive. documented in this [facility]10-24-2023 Evaluation note* Encounter Date Diagnosis Assessment [...] but no change in treatment is necessary [employer] Other 10-23-2023 Evaluation note* Encounter Date Diagnosis [...] BS but no adjustment in treatment necessary [employer] Other [id number] Miscellaneous Notes* Telephone Encounter - Bobbi Sahu - 12/23/2022 7:48 AM EDT Patient records received via electronic fax. Uploaded to [employer]. INR 12.20.22 Bobbi Sahu [facility] Evaluation note* Encounter Date Diagnosis Assessment [...] Above note written by Christian Damon MA, Railroad Detective. Edited and approved by Dr. Ruben Celis MD. [employer] Other 10-04-2023 Evaluation note* Encounter Date Diagnosis [...] are maintaining regular scheduled appts with their radio officer. No bleeding complications Dec, Type 2 diabetes [...] use, the patient reduces the risk for [place], CVA, HTN, cardiac dysrhythmias and sudden cardiac deaths.The patient is also aware of the association between CHRISTIAN and morning headaches, daytime somnolence, fatigue and obesity Unable to tolerate treatment, noncompliant Aware this would likely prevent jew of NSR Dec, Chronic venous insufficiency of [...] as needed. 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 Uploaded to [employer]. INR 8.17.23 Bobbi Sahu documented [facility] Evaluation note* Encounter Date Diagnosis Assessment [...] note writ ten by Christian Damon MA, Railroad Detective. Edited and approved by Dr. Ruben Celis MD. [email or web address] Other 08-03-2023 Miscellaneous Notes* Telephone Encounter - Bobbi Sahu - 10/13/2022 3:54 PM EDT Patient records received via electronic fax. Uploaded to [employer]. INR 8.3.23 Bobbi Sahu documented [facility] Evaluation note* Encounter Date Diagnosis Assessment [...] Microalbumin, Dilated eye exam and Foot exam [employer] Other 08-02-2023 Evaluation note* Encounter Date Diagnosis [...] with me on a as needed basis. [employer] Other 07-07-2023 Miscellaneous Notes* Telephone Encounter - Suman Garvin - 09/16/2022 7:48 AM EDT Images from the original note were not included. Outside medical records (INR report) scanned into [employer] [address]. [facility] Evaluation note* Encounter Date Diagnosis Assessment Notes [...] Microalbumin, Dilated eye exam and Foot exam [employer] Other 06-28-2023 Miscellaneous Notes* Telephone Encounter - Orly Olivo MA - 09/07/2022 11:30 AM EDT Received lab results from [facility]. No upcoming appts. Sent for scanning. documented in this encounterAv[facility]06[facility]23 Miscellaneous Notes* Telephone Encounter - Bobbi Sahu - 09/01/2022 2:39 PM EDT Patient records received via electronic fax. Uploaded to [employer] Bobbi Sahu documented in this [facility] Evaluation note* Encounter Date Diagnosis Assessment [...] are maintaining regular scheduled appts with their radio officer. Aug, Pulmonary nodule, right (ICD-10 - R91.1) [...] use, the patient reduces the risk for AZ, CVA, HTN, cardiac dysrhythmias and sudden cardiac [...] High risk medication use (ICD-10 - Z79.899) [employer] Other 05-11-2023 Miscellaneous Notes* Telephone Encounter - Bobbi Sahu - 07/21/2022 12:00 PM EDT Patient records received via electronic fax. Uploaded to [employer]. INR 5.11.23 Bobbi Sahu documented in this encounter[facility]23 Miscellaneous Notes* Telephone Encounter - Kayla [...] ef normal Schedule followup this year with wa documented in this encounterAv[facility]04-[facility]23 Miscellaneous Notes* Telephone Encounter - Chiquita Soares RN - 06/27/2022 2:55 PM EDT Spoke to patient per MD request. Per Dr Denton: Can you call him and let him know I got his ECG printed out the way I wanted, and I do think he was in atrial fib on Monday at [place]? Tell him we are not changing anything now, but I wanted to follow up with him about this. Thanks TD Chiquita Soares RN documented in this encounter[facility] Evaluation note* Encounter Date Diagnosis Assessment [...] - aorta is borderline dilated 4.0 cm. [employer] Other 04-14-2023 History of Present illness Narrative* [...] (Hypertension) Dyslipidemia Atrial Fibrillation (Hcc) Atherosclerosis of [place] Coronary Artery of [place] Heart Without Angina Pectoris Diabetes Mellitus Type [...] phrases that may beinappropriate. documented in this encounter[facility]13[facility]23 Miscellaneous Notes* Telephone Encounter - Bobbi Sahu - 06/23/2022 11:30 AM EDT Patient records received via electronic fax. Uploaded to [employer]. INR 4.13.23 Bobbi Sahu documented in this encounterAvita [facility]03-17-2023 Miscellaneous Notes* Telephone Encounter - Bobbi Sahu - 05/27/2022 9:01 AM EDT Patient records received via electronic fax. Uploaded to [employer] INR RESULTS Bobbi Sahu documented in this [facility]03-06-2023 Evaluation note* Encounter Date Diagnosis Assessment [...] are maintaining regular scheduled appts with their radio officer. May, CHRISTIAN (obstructive sleep apnea) (ICD-10 - [...] past 2 years. No further screening required. [employer] Other 01-10-2023 Evaluation note* Encounter Date Diagnosis [...] which are reviewed at the office visit. [employer] Other 12-29-2022 Miscellaneous Notes* Telephone Encounter - Bobbi Sahu - 03/10/2022 9:28 AM EST Images from the original note were not included. Patient records received via electronic fax. Uploaded to [employer] Bobbi Sahu documented in this encounterAvita [facility]12-07-2022 NotePROCEDURE: XR FOOT LT MIN 3 [...] Electronically authenticated by: JAMIE FAROOQ Date: 2022-02-16 09:55[facility]12-07-2022 NotePROCEDURE: XR FOOT LT MIN 3 VIEWS, [...] Electronically authenticated by: JAMIE FAROOQ Date: 2022-02-16 09:55[facility]11-22-2022 Miscellaneous Notes* Telephone Encounter - Bobbi Sahu - 02/01/2022 4:02 PM EST Images from the original note were not included. Patient records received via electronic fax. Uploaded to [email or web address] Bobbi Sahu documented in this [facility]11-10-2022 Miscellaneous Notes* Telephone Encounter - Bobbi Sahu - 01/20/2022 4:51 PM EST Patient records received via electronic fax. Uploaded to [employer] Bobbi Sahu documented in this [facility]11-08-2022 Miscellaneous Notes* Telephone Encounter - Bobbi Sahu - 01/18/2022 2:49 PM EST Images from the original note were not included. Patient records received via electronic fax. Uploaded to [employer] Bobbi Sahu documented in this [facility]10-26-2022 Miscellaneous Notes* Telephone Encounter - Bobbi Sahu - 01/05/2022 8:57 AM EDT Images from the original note were not included. Patient records received via electronic fax. Uploaded to [employer] Bobbi Sahu documented in this [facility]10-25-2022 Miscellaneous Notes* Telephone Encounter - Bobbi Sahu - 01/04/2022 4:17 PM EDT Images from the original note were not included. Patient records received via electronic fax. Uploaded to [employer] Bobbi Sahu documented in this [facility]10-21-2022 History of Present illness Narrative* Venkat Evans V, MD - 12/31/2021 1:00 PM EDT Referring Physician: Sara Carlson [id number] [address] [facility] [address] Primary Care Physician: DO Jorge Unger Ryan is a 76 year old male that [...] Per EP 3. Coronary artery disease involving [place] coronary artery of [place] heart without angina pectoris- ICD9: 414.01, ICD10: [...] Date ANESTH OPEN/SURG ARTHRS TOTAL KNEE ARTHROPLASTY 2006 Right Knee ARTHRP KNE CONDYLE&PLATU MEDIAL&LAT COMPARTMENTS [...] 78 Venkat Evans MD documented in this [facility]10-11-2022 Miscellaneous Notes* Telephone Encounter - Bobbi Sahu - 12/21/2021 4:17 PM EDT Images from the original note were not included. Patient records received via electronic fax. Uploaded to [employer]. Bobbi Sahu documented in this encounterAvita [facility]09-27-2022 Miscellaneous Notes* Telephone Encounter - Bobbi Sahu - 12/07/2021 2:04 PM EDT Patient records received via electronic fax. Uploaded to [employer] Bobbi Sahu documented in this encounterAv[facility]04-28-2022 Miscellaneous Notes* Telephone Encounter - Suman Garvin - 07/08/2021 4:17 PM EDT Images from the original note were not included. Outside medical records (INR report 07/08/2021) scanned into shared [employer] drive. documented in this encounterAvita [facility]04-15-2022 History of Present illness Narrative* Ruben [...] (Hypertension) Dyslipidemia Atrial Fibrillation (Hcc) Atherosclerosis of [place] Coronary Artery of [place] Heart Without Angina Pectoris Diabetes Mellitus Type [...] furosemide, a statin. INR is managed by [facility] and is checked monthly. No problems with [...] today in the office shows: NSR [id number] Low voltage P waves Impression and plan dictated separately; to be transcribed. Ruben Denton MD CC - Declan Swanson, DO This clinical note has been produced using speech recognition software and may contain errors related to that system including grammar, punctuation, spelling, gender and words and phrases that may beinappropriate. documented in this encounterAvita Health [facility]04-15-2022 History of Present illness Narrative* Sara Carlson APRN.[facility] - 06/25/2021 1:25 PM EDT Images from the original note were not included. [facility] Cristal Crespo Department of Cardiovascular Medicine SECTION OF CLINICAL CARDIOLOGY OUTPATIENT VISIT DATE June 25, 2021 OUTPATIENT VISIT TYPE ESTABLISHED PRIMARY CARE PHYSICIAN: Declan Swanson (Peggy) [address] [place] [address] CHIEF COMPLAINT: follow up HISTORY OF PRESENT ILLNESS: Mr. Davis is a 76 year old male who presents today for a cardiovascular medicine followed by Dr. Evans & Dr. Denton for non occlusive CAD , chronic diastolic heart failure, paroxysmal atrial fibrillation (s/p ablation 2019; [id number]: 3%; age, hypertension, diabetes type II), Other [...] Date ANESTH OPEN/SURG ARTHRS TOTAL KNEE ARTHROPLASTY 2006 Right Knee ARTHRP KNE CONDYLE&PLATU MEDIAL&LAT COMPARTMENTS [...] failure, paroxysmal atrial fibrillation (s/p ablation 2019; [id number]: 3%; age, hypertension, diabetes type II), Other [...] with more than 50% of the total [id number] time of the visit in counseling / coordination of care. CONTACT INFORMATION: Sara Carlson APRN.CNP, 06/25/21 [facility] Second Floor [address] [place] [address] documented in this encounterAvita Health [facility]03-31-2022 Miscellaneous Notes* Telephone Encounter - Suman Garvin - 06/10/2021 1:12 PM EDT Images from the original note were not included. Outside medical records (INR results 06/10/2021) scanned into shared EP drive. documented in this encounterAvita [facility]03-22-2022 Miscellaneous Notes* Telephone Encounter - Kim Caruso RN - 06/01/2021 4:26 PM EDT Message left. Yes, he needs EKG. Ordered. (Not sure why he has 2 appts. on same day with same dept). Kim Caruso RN * Telephone Encounter - Angela Collazo - 05/31/2021 11:30 AM EDT May 31, 2021 Patient Name:PATIENT Jorge Davis Contact Information: [phone] Last visit with EP Provider: 09/18/2020 Reason for Call: Patient would like to know if he should be getting an EKG prior to his appointment06/25. Last EKG was 09/18/20. Physician: Feliz Lipscomb MD Thank you, Angela Collazo The patient was informed that our caregivers are afforded 72 business hours to review and respond telephone messages. documented in this encounterAvita [facility]03-10-2022 Evaluation note* Encounter Date Diagnosis Assessment [...] us and we will see him sooner. [employer] Other 02-09-2022 Miscellaneous Notes* Telephone Encounter - Jessika Escobar - 04/21/2021 4:00 PM EST Received outside records - uploaded to Scanned Documents in [employer] through [employer]base Appointment on Visit date not found Last appointment with this provider 04/01/2021 Last OV in this dept 04/19/2019 Jessika Escobar [facility] Diagnosis Atrial fibrillation, persistent (HCC)- Primary Atrial fibrillation documented in this encounter [facility] note* Diagnosis Atrial fibrillation, persistent (HCC)- Primary Atrial fibrillation S/P ablation of atrial fibrillation Other postprocedural status Obesity, Class III, BMI >= 40 Morbid obesity Controlled type 2 diabetes mellitus without complication, without long-term current use of insulin (HCC) CHRISTIAN (obstructive sleep apnea) Obstructive sleep apnea (adult) (pediatric) Atherosclerosis of [place] coronary artery of [place] heart without angina pectoris Encounter for current long-term use of anticoagulants Long-term (current) use of anticoagulants documented in this encounter [facility] note* Diagnosis Acute on chronic diastolic heart failure (HCC)- Primary Acute on chronic diastolic heart failure Primary hypertension Unspecified essential hypertension documented in this encounter [facility] note* Diagnosis Chronic diastolic heart failure (HCC)- Primary Chronic diastolic heart failure Paroxysmal atrial fibrillation (HCC) Atrial fibrillation Coronary artery disease involving [place] coronary artery of [place] heart without angina pectoris Controlled type 2 diabetes mellitus without complication, without long-term current use of insulin (HCC) documented in this encounter [facility] noteNo [facility] [email or web address] Other Evaluation note* Diagnosis Atrial fibrillation, persistent [...] BMI >= 40 Morbid obesity Atherosclerosis of [place] coronary artery of [place] heart without angina pectoris documented in this encounter [facility] HospitalEvaluation noteNort [email or web address] Other Evaluation noteNo assessment information available [facility] Work Phone: Evaluation note* Diagnosis Chronic diastolic heart failure (HCC)- Primary Chronic diastolic heart failure Atrial fibrillation, persistent (HCC) Atrial fibrillation Obesity, Class III, 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) Morbid obesity Mixed hyperlipidemia documented in this encounter [facility] note* Diagnosis Atrial fibrillation, persistent (HCC)- Primary Atrial fibrillation S/P ablation of atrial fibrillation Other postprocedural status On continuous oral anticoagulation Long-term (current) use of anticoagulants documented in this encounter [facility] note* Diagnosis Onset Date Resolution Status ASHD (arteriosclerotic heart disease) acute Acute bronchitis due to other specified organisms noneactive Contact dermatitis acute Type 2 diabetes mellitus with hyperglycemia acute [facility] Work Phone: Evaluation note* Diagnosis Onset [...] acute Medicare annual wellness visit, subsequent noneactive [facility] Work Phone: Histhnu general Narrative - Reported* Type Description Date [...] porstate sx 2017 Hospitalization History see above [employer] Other Hisusns general Narrative - Reported* Type Description Date [...] heart cath 06/2015 Hospitalization History see above [facility] [employer] Other History general Narrative - [facility]NortSelect [facility] [employer] Other Reason for referral (narrative)* Outpatient Procedure (Routine) - Pending Review Specialty Diagnoses / Procedures Referred By Carmine mckee [facility] Diagnoses Atrial fibrillation, persistent (HCC) Procedures ECG COMPLETE ECG ROUTINE ECG W/LEAST 12 LDS W/I&R Ruben Denton MD [address] [place] [address] [facility] [address] [place] [address] Referral ID Status Reason Start Date Expiration Date Visits Requested Visits Authorized [id number] Pending Review Auto-Generat ed Referral 06/01/2021 06/01/2022 1 1 [facility] for referral (narrative)* Outpatient Procedure (Routine) - Closed Specialty Diagnoses / Procedures Referred By Contac t Referred To [facility] Diagnoses Atrial fibrillation, persistent (HCC) Procedures ECG COMPLETE ECG ROUTINE ECG W/LEAST 12 LDS W/I&R Ruben Denton MD [address] [place] [address] [address] Referral ID Status Reason Start Date Expiration Date V isits Requested Visits Authorized [id number] Closed Auto-Generate d Referral 06/25/2021 06/25/2022 1 1 [facility] for referral (narrative)* Outpatient Procedure (Routine) - Authorized Specialty Diagnoses / Procedures Referred By Contac t Referred To [facility] Diagnoses Chronic diastolic heart failure (HCC) Procedures ECHO ECHO TTHRC R-T 2D W/WOM-MODE COMPL SPEC&[place] [address] [place] [address] [address] Referral ID Status Reason Start Date Expiration Date Visits Requested Visits Authorized [id number] Authorized Auto-Generat ed Referral 2 12/31/2022 1 1 [facility] for referral (narrative)* Outpatient Procedure (Routine) - Pending Review Specialty Diagnoses / Procedures Referred By Contac t Referred To [facility] Diagnoses Atrial fibrillation, persistent (HCC) Procedures ECG COMPLETE ECG ROUTINE ECG W/LEAST 12 LDS W/I&R Ruben Denton MD [address] [place] [address] [address] Referral ID Status Reason Start Date Expiration Date Visits Requested Visits Authorized [id number] Pending Review Auto-Generat ed Referral 06/24/2022 06/24/2023 1 1 [facility] (narrative)* Outpatient Procedure (Routine) - Authorized Specialty Diagnoses / Procedures Referred By Contac t [facility] Diagnoses Chronic diastolic heart failure (HCC) Procedures ECHO ECHO TTHRC R-T 2D W/WOM-MODE COMPL SPEC&[place] [address] [place] [address] [facility] [address] [place] [address] Referral ID Status Reason Start Date Expiration Date Visits Requested Visits Authorized [id number] Authorized Auto-Generat ed Referral 06/05/2023 06/04/2024 1 1 [facility] Summary Purpose Family History No Family History Records Found Relationship Condition Age at Onset Recorded Date/T [...] Diabetes mellitus Unknown Hypertension Unknown Advance Directives No Advanced Directives Records FoundDocuments on File Type Date Recorded 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 Note HNO ID: [id number] Author: Sarah Kramer (Aa) Service: ? Author Type: Heating Engineer Type: Anesthesia Procedure Notes Filed: 10/23/2019 9:12 [...] not included)... Procedure Findings Note HNO ID: [id number] Author: Sarah Kramer (Aa) Service: ? Author Type: Heating Engineer Type: Anesthesia Procedure Notes Filed: 10/23/2019 9:12 [...] DATE CREATED AUTHOR AUTHOR'S ORGANIZ ATION 12/24/2019 [facility] DATE CREATED AUTHOR AUTHOR'S ORGANIZ ATION 02/29/2020 [facility] DATE CREATED AUTHOR AUTHOR'S ORGANIZ ATION 08/19/2022 [facility] DATE CREATED AUTHOR AUTHOR'S ORGANIZ ATION 12/21/2022 [facility] DATE CREATED AUTHOR AUTHOR'S ORGANIZ ATION 10/06/2023 [facility] DATE CREATED AUTHOR AUTHOR'S ORGANIZ ATION 11/17/2023 [facility] Source Comments (unrecognize d section and content) In the event this informatio n is protected by the Federal Confidentiality of Alcohol and Drug Abuse Patient Records regulations: The Federal rules restrict any use of the information to criminally investigate or prosecute any alcohol or drug abuse patient.[facility] HospitalIn the event this information is protected by the Federal Confidentiality of Alcohol and Drug Abuse Patient Records regulations: The Federal rules restrict any use of the information to criminally investigate or prosecute any alcohol or drug abuse patient.[facility] HospitalIn the event this information is protected by the Federal Confidentiality of Alcohol and Drug Abuse Patient Records regulations: The Federal rules restrict any use of the information to criminally investigate or prosecute any alcohol or drug abuse patient.[facility] HospitalIn the event this information is protected by the Federal Confidentiality of Alcohol and Drug Abuse Patient Records regulations: The Federal rules restrict any use of the information to criminally investigate or prosecute any alcohol or drug abuse patient.[facility] HospitalIn the event this information is protected by the Federal Confidentiality of Alcohol and Drug Abuse Patient Records regulations: The Federal rules restrict any use of the information to criminally investigate or prosecute any alcohol or drug abuse patient.[facility] HospitalIn the event this information is protected by the Federal Confidentiality of Alcohol and Drug Abuse Patient Records regulations: The Federal rules restrict any use of the information to criminally investigate or prosecute any alcohol or drug abuse patient.[facility] HospitalIn the event this information is protected by the Federal Confidentiality of Alcohol and Drug Abuse Patient Records regulations: The Federal rules restrict any use of the information to criminally investigate or prosecute any alcohol or drug abuse patient.[facility] HospitalIn the event this information is protected by the Federal Confidentiality of Alcohol and Drug Abuse Patient Records regulations: The Federal rules restrict any use of the information to criminally investigate or prosecute any alcohol or drug abuse patient.[facility] HospitalIn the event this information is protected by the Federal Confidentiality of Alcohol and Drug Abuse Patient Records regulations: The Federal rules restrict any use of the information to criminally investigate or prosecute any alcohol or drug abuse patient.[facility] HospitalIn the event this information is protected by the Federal Confidentiality of Alcohol and Drug Abuse Patient Records regulations: The Federal rules restrict any use of the information to criminally investigate or prosecute any alcohol or drug abuse patient.[facility] HospitalIn the event this information is protected by the Federal Confidentiality of Alcohol and Drug Abuse Patient Records regulations: The Federal rules restrict any use of the information to criminally investigate or prosecute any alcohol or drug abuse patient.[facility] HospitalIn the event this information is protected by the Federal Confidentiality of Alcohol and Drug Abuse Patient Records regulations: The Federal rules restrict any use of the information to criminally investigate or prosecute any alcohol or drug abuse patient.[facility] HospitalIn the event this information is protected by the Federal Confidentiality of Alcohol and Drug Abuse Patient Records regulations: The Federal rules restrict any use of the information to criminally investigate or prosecute any alcohol or drug abuse patient.[facility] HospitalIn the event this information is protected by the Federal Confidentiality of Alcohol and Drug Abuse Patient Records regulations: The Federal rules restrict any use of the information to criminally investigate or prosecute any alcohol or drug abuse patient.[facility] HospitalIn the event this information is protected by the Federal Confidentiality of Alcohol and Drug Abuse Patient Records regulations: The Federal rules restrict any use of the information to criminally investigate or prosecute any alcohol or drug abuse patient.[facility] HospitalIn the event this information is protected by the Federal Confidentiality of Alcohol and Drug Abuse Patient Records regulations: The Federal rules restrict any use of the information to criminally investigate or prosecute any alcohol or drug abuse patient.[facility] HospitalIn the event this information is protected by the Federal Confidentiality of Alcohol and Drug Abuse Patient Records regulations: The Federal rules restrict any use of the information to criminally investigate or prosecute any alcohol or drug abuse patient.[facility] HospitalIn the event this information is protected by the Federal Confidentiality of Alcohol and Drug Abuse Patient Records regulations: The Federal rules restrict any use of the information to criminally investigate or prosecute any alcohol or drug abuse patient.[facility] HospitalIn the event this information is protected by the Federal Confidentiality of Alcohol and Drug Abuse Patient Records regulations: The Federal rules restrict any use of the information to criminally investigate or prosecute any alcohol or drug abuse patient.[facility] HospitalIn the event this information is protected by the Federal Confidentiality of Alcohol and Drug Abuse Patient Records regulations: The Federal rules restrict any use of the information to criminally investigate or prosecute any alcohol or drug abuse patient.[facility] HospitalIn the event this information is protected by the Federal Confidentiality of Alcohol and Drug Abuse Patient Records regulations: The Federal rules restrict any use of the information to criminally investigate or prosecute any alcohol or drug abuse patient.[facility] HospitalIn the event this information is protected by the Federal Confidentiality of Alcohol and Drug Abuse Patient Records regulations: The Federal rules restrict any use of the information to criminally investigate or prosecute any alcohol or drug abuse patient.[facility] HospitalIn the event this information is protected by the Federal Confidentiality of Alcohol and Drug Abuse Patient Records regulations: The Federal rules restrict any use of the information to criminally investigate or prosecute any alcohol or drug abuse patient.[facility] HospitalIn the event this information is protected by the Federal Confidentiality of Alcohol and Drug Abuse Patient Records regulations: The Federal rules restrict any use of the information to criminally investigate or prosecute any alcohol or drug abuse patient.[facility] HospitalIn the event this information is protected by the Federal Confidentiality of Alcohol and Drug Abuse Patient Records regulations: The Federal rules restrict any use of the information to criminally investigate or prosecute any alcohol or drug abuse patient.[facility] HospitalIn the event this information is protected by the Federal Confidentiality of Alcohol and Drug Abuse Patient Records regulations: The Federal rules restrict any use of the information to criminally investigate or prosecute any alcohol or drug abuse patient.[facility] HospitalIn the event this information is protected by the Federal Confidentiality of Alcohol and Drug Abuse Patient Records regulations: The Federal rules restrict any use of the information to criminally investigate or prosecute any alcohol or drug abuse patient.[facility] HospitalIn the event this information is protected by the Federal Confidentiality of Alcohol and Drug Abuse Patient Records regulations: The Federal rules restrict any use of the information to criminally investigate or prosecute any alcohol or drug abuse patient.[facility] HospitalIn the event this information is protected by the Federal Confidentiality of Alcohol and Drug Abuse Patient Records regulations: The Federal rules restrict any use of the information to criminally investigate or prosecute any alcohol or drug abuse patient.[facility] HospitalIn the event this information is protected by the Federal Confidentiality of Alcohol and Drug Abuse Patient Records regulations: The Federal rules restrict any use of the information to criminally investigate or prosecute any alcohol or drug abuse patient.[facility] HospitalIn the event this information is protected by the Federal Confidentiality of Alcohol and Drug Abuse Patient Records regulations: The Federal rules restrict any use of the information to criminally investigate or prosecute any alcohol or drug abuse patient.[facility] HospitalIn the event this information is protected by the Federal Confidentiality of Alcohol and Drug Abuse Patient Records regulations: The Federal rules restrict any use of the information to criminally investigate or prosecute any alcohol or drug abuse patient.[facility] HospitalIn the event this information is protected by the Federal Confidentiality of Alcohol and Drug Abuse Patient Records regulations: The Federal rules restrict any use of the information to criminally investigate or prosecute any alcohol or drug abuse patient.[facility] HospitalIn the event this information is protected by the Federal Confidentiality of Alcohol and Drug Abuse Patient Records regulations: The Federal rules restrict any use of the information to criminally investigate or prosecute any alcohol or drug abuse patient.[facility] HospitalIn the event this information is protected by the Federal Confidentiality of Alcohol and Drug Abuse Patient Records regulations: The Federal rules restrict any use of the information to criminally investigate or prosecute any alcohol or drug abuse patient.[facility] HospitalIn the event this information is protected by the Federal Confidentiality of Alcohol and Drug Abuse Patient Records regulations: The Federal rules restrict any use of the information to criminally investigate or prosecute any alcohol or drug abuse patient.[facility] HospitalIn the event this information is protected by the Federal Confidentiality of Alcohol and Drug Abuse Patient Records regulations: The Federal rules restrict any use of the information to criminally investigate or prosecute any alcohol or drug abuse patient.[facility] HospitalIn the event this information is protected by the Federal Confidentiality of Alcohol and Drug Abuse Patient Records regulations: The Federal rules restrict any use of the information to criminally investigate or prosecute any alcohol or drug abuse patient.[facility] HospitalIn the event this information is protected by the Federal Confidentiality of Alcohol and Drug Abuse Patient Records regulations: The Federal rules restrict any use of the information to criminally investigate or prosecute any alcohol or drug abuse patient.[facility] HospitalIn the event this information is protected by the Federal Confidentiality of Alcohol and Drug Abuse Patient Records regulations: The Federal rules restrict any use of the information to criminally investigate or prosecute any alcohol or drug abuse patient.[facility] Reason for Visit (unrecogniz ed section [...] Care Teams (unrecognized sec tion and content) Unit Secretary Relationship Specialty Start Date End Date Declan Swanson DO PCP - General Internal Medicine 06/04/13 Unit Secretary Relationship Specialty Start Date End Date Declan Swanson DO PCP - General Internal Medicine 06/04/13 Unit Secretary Relationship Specialty Start Date End Date Declan Swanson DO PCP - General Internal Medicine 06/04/13 Unit Secretary Relationship Specialty Start Date End Date Declan Swanson, DO PCP - General Internal Medicine 06/04/13 Unit Secretary Relationship Specialty Start Date End Date Declan Swanson DO PCP - General Internal Medicine 06/04/13 Unit Secretary Relationship Specialty Start Date End Date Declan Swanson DO PCP - General Internal Medicine 06/04/13 Unit Secretary Relationship Specialty Start Date End Date Declan Swanson DO PCP - General Internal Medicine 06/04/13 Unit Secretary Relationship Specialty Start Date End Date Declan Swanson DO PCP - General Internal Medicine 06/04/13 Unit Secretary Relationship Specialty Start Date End Date Declan Swanson DO PCP - General Internal Medicine 06/04/13 Unit Secretary Relationship Specialty Start Date End Date Declan Swanson DO PCP - General Internal Medicine 06/04/13 Team Status: Active Member Role Status Dates Declan Swanson DO Primary Care Provider Active Team Status: Inactive Member Role Status Dates Declan Swanson DO Primary Care Provider Active Bruce Shine II, MD Attending Provider Active Unit Secretary Relationship Specialty Start Date End Date Declan Swanson DO PCP - General Internal Medicine 06/04/13 Team Status: Inactive Member Role Status Dates Declan Swanson DO Primary Care Provider Active Ruben Celis MD Attending Provider Active Unit Secretary Relationship Specialty Start Date End Date eDclan Swanson DO PCP - General Internal Medicine 06/04/13 Unit Secretary Relationship Specialty Start Date End Date Declan Swanson DO PCP - General Internal Medicine 06/04/13 Unit Secretary Relationship Specialty Start Date End Date Declan Swanson DO PCP - General Internal Medicine 06/04/13 Team Status: Inactive Member Role Status Dates Declan Swanson DO Primary Care Provide r, Attending Provider Active Start: June 23, 2023 End: June 23, 2023 Unit Secretary Relationship Specialty Start Date End Date Declan Swanson DO PCP - General Internal Medicine 06/04/13 Unit Secretary Relationship Specialty Start Date End Date Declan [...] BE BASED ON THE PRIMARY CLINICAL RECORDS. [employer] [facility]. provides no warranty or guarantee of the accuracy or completeness of information in this document.
[2023-12-06 06:22] LABS: Basophils Absolute Auto 0.1 10^3/uL (0.0-0.1); Basophils Percent Auto 0.7 % (0.2-2.0); Eosinophils Absolute Auto 0.1 10^3/uL (0.0-0.7); Eosinophils Percent Auto 1.7 % (0.9-7.0); Hematocrit 42.1 % (42.0-54.0); Hemoglobin 13.6 g/dL (14.0-18.0); Immature Granulocytes Abs Auto 0.02 10^3/uL (0.00-0.03); Immature Granulocytes Pct Auto 0.3 % (0.0-0.5); Lymphocytes Absolute Auto 1.8 10^3/uL (1.2-3.8); Lymphocytes Percent Auto 23.5 % (20.5-60.0); Mean Corpuscular HGB Conc 32.3 g/dL (29.9-35.2); Mean Corpuscular Hemoglobin 29.8 pg (25.9-34.0); Mean Corpuscular Volume 92.3 fL (80.0-94.0); Monocytes Absolute Auto 0.6 10^3/uL (0.3-0.8); Monocytes Percent Auto 8.6 % (1.7-12.0); Neutrophils Absolute Auto 4.9 10^3/uL (1.4-6.5); Neutrophils Percent Auto 65.2 % (43.0-75.0); Platelet Count 205 10^3/uL (150-450); Red Blood Count 4.56 10^6/uL (4.70-6.10); Red Cell Distribution Width 14.6 % (11.0-15.0); White Blood Count 7.5 10^3/uL (4.0-11.0)
[2023-12-06 06:43] LABS: Alanine Aminotransferase 20 U/L (16-63); Albumin Globulin Ratio 0.9; Albumin Level 2.9 g/dL (3.4-5.0); Alkaline Phosphatase 78 U/L (46-116); Anion Gap 8.6; Aspartate Amino Transferase 18 U/L (15-37); Bilirubin Total 1.1 mg/dL (0.2-1.0); Calcium 8.7 mg/dL (8.5-10.1); Carbon Dioxide 28.4 mmol/L (21.0-32.0); Chloride 104 mmol/L (98-107); Estimated GFR (African America >60 (>=60); Estimated GFR (Non-African Ame >60 (>=60); Globulin 3.3 g/dL; Glucose 106 mg/dL (74-106); Sodium 137 mmol/L (136-145); Total Protein 6.2 g/dL (6.4-8.2)
[2023-12-06 06:48] LABS: INR 2.78; Prothrombin Time 26.6 sec (9.0-11.6)
--- NOTE | 2023-12-06 07:46 | PM.CN ---
Consult Note: [facility] Data of Consult Consult date: 12/06/23 Requesting Physician: Shaikh Jose Alberto MD Primary Care Provider: Declan Bruce DO Consult Narrative Reason for consult: Right leg infection Narrative: Patient is a 78-year-old male with A-fib on warfarin (INR 2.7) and controlled type 2 diabetes (hemoglobin A1c 6.0) who presents to the emergency department yesterday for worsening infection to his right leg. He relates that he hit his right carr on a stair at his house. He relates that the area became swollen and tender and describes what sounds like a hematoma. He relates that he and his , sterilized a needle and poked the lump many times and blood oozed out. Subsequently he describes that surrounding erythema began to worsen over the next couple of days so he decided to present to the emergency department to have it checked out. Vital signs are stable and no leukocytosis. ESR is 48 and CRP is within normal limits. He does have a history of ipsilateral TKA. Venous ultrasound showed no evidence of DVT and x-rays showed no evidence of subcutaneous air or bony involvement. He denies systemic signs of infection specifically no nausea, vomiting, fever, chills, night sweats, shortness of breath, chest pain or cough. cc:: CC: Shaikh Jose Alberto MD Review of Systems ROS Status of ROS 10 or more systems reviewed and unremarkable except as noted in history and below PFSH [facility] Medical History (Updated 12/06/23 @ 07:54 by Efren Feng DPM) Type 2 diabetes mellitus ?E11.9 - Type 2 diabetes mellitus without complications (ICD-10) Hyperlipemia ?E78.5 - Hyperlipidemia, unspecified (ICD-10) A-fib ?I48.91 - Unspecified atrial fibrillation (ICD-10) Surgical History (Updated 12/05/23 @ 13:37 by Zina Reyes RN) History of cardiac radiofrequency ablation ?Z98.890 - Other specified postprocedural states (ICD-10) History of bilateral knee replacement ?Z96.653 - Presence of artificial knee joint, bilateral (ICD-10) H/O hernia repair ?Z98.890 - Other specified postprocedural states (ICD-10) ?Z87.19 - Personal history of other diseases of the digestive system (ICD-10) Family History (Updated 12/05/23 @ 13:40 by Zina Reyes RN) Mother Family history of CHF (congestive heart failure) Father Family history of diabetes mellitus Social History (Updated 12/05/23 @ 13:44 by Zina Reyes RN) Within the past year, how often did you have a drink containing alcohol: 2-3 times a week Smoking status: Former smoker Non-prescribed substance use: denies use Highest level of school completed/degree received: high school graduate Little interest or pleasure in doing things: not at all Feeling down, depressed, or hopeless: not at all Meds Home Medications and Allergies Home Medications ?Medication ?Instructions ?Recorded ?Confirmed ?Type allopurinol 300 mg tablet 300 mg PO DAILY 12/05/23 12/05/23 History furosemide 40 mg tablet 40 mg PO DAILY 12/05/23 12/05/23 History hydrocortisone 2.5 % topical cream See Rx Instructions topical 12/05/23 12/05/23 History .COMPLEX metformin 500 mg tablet 500 mg PO DAILY 12/05/23 12/05/23 History potassium chloride 20 mEq 20 meq PO DAILY 12/05/23 12/05/23 History tablet,extended release pravastatin 80 mg tablet 80 mg PO DAILY 12/05/23 12/05/23 History warfarin 4 mg tablet 4 mg PO MOTUTHFRSA@219912/05/23 12/05/23 History warfarin 6 mg tablet 6 mg PO SUWE@219912/05/23 12/05/23 History Allergies Allergy/AdvReac Type Severity Reaction Status Date / Time No Known Drug Allergies Allergy Verified 03/16/23 12:53 Exam Narrative Exam Narrative: Palpable tender fluctuance over the anterior right mid leg with purulent drainage and >2cm of surrounding erythema. Range of motion of the ankle and knee are pain-free. Patient is able to wiggle his toes and fire all muscle groups however patient does have pain over the anterior compartment with active dorsiflexion. Pedal pulses are palpable and there is right leg swelling but no calf pain on squeeze. No pain out of proportion Constitutional Vital Signs, click to edit/add: Last Vital Signs Temp 97.8 F 12/06/23 03:00 Pulse 67 12/06/23 03:00 Resp 18 12/06/23 03:00 BP 149/82 H 12/06/23 03:00 Pulse Ox 95 12/06/23 03:00 O2 Del Method Room Air 12/06/23 03:00 Results Labs Labs: Short CBC 12/05/23 12/06/23 Range/Units 10:36 06:05 WBC 6.6 7.5 (4.0-11.0) 10^3/uL Hgb 13.9 L 13.6 L (14.0-18.0) g/dL Hct 42.7 42.1 (42.0-54.0) % Plt Count 216 205 (150-450) 10^3/uL BMP 12/05/23 12/06/23 10:36 06:05 Sodium 135 L 137 Potassium 4.1 4.0 Chloride 100 104 Carbon Dioxide 28.2 28.4 BUN 14.0 15.0 Creatinine 0.78 0.75 Glucose 124 H 106 Calcium 8.8 8.7 Liver Function 12/05/23 12/06/23 Range/Units 10:36 06:05 Total Bilirubin 0.7 1.1 H (0.2-1.0) mg/dL AST 21 18 (15-37) U/L ALT 28 20 (16-63) U/L Alkaline Phosphatase 95 78 (46-116) U/L Albumin 3.2 L 2.9 L (3.4-5.0) g/dL Assessment and Plan Assessment and Plan (1) Cellulitis: Qualifiers: Laterality: right Site of cellulitis: extremity Site of cellulitis of extremity: lower extremity Qualified Code(s): L03.115 - Cellulitis of right lower limb (2) Infected traumatic leg ulcer: Qualifiers: Laterality: right Non-pressure ulcer stage: limited to breakdown of skin Qualified Code(s): L97.911 - Non-pressure chronic ulcer of unspecified part of right lower leg limited to breakdown of skin; L08.9 - Local infection of the skin and subcutaneous tissue, unspecified (3) Type 2 diabetes mellitus: Qualifiers: Diabetes mellitus bed bug exterminator insulin use: without bed bug exterminator use Diabetes mellitus complication status: without complication Qualified Code(s): E11.9 - Type 2 diabetes mellitus without complications (4) A-fib: Qualifiers: Atrial fibrillation type: paroxysmal Qualified Code(s): I48.0 - Paroxysmal atrial fibrillation (5) Hyperlipemia: Qualifiers: Hyperlipidemia type: unspecified Qualified Code(s): E78.5 - Hyperlipidemia, unspecified (6) Abscess of tendon sheath, right lower leg: Assessment and Plan: Continue IV antibiotics and local wound care -bedside I&D not appropriate given patient is on blood thinners and local pain -will schedule for I&D today Plan Patient seen and evaluated at bedside. All questions answered to patient's satisfaction. I recommended surgical incision and drainage and I educated the patient on all potential risks and benefits. Patient agreed to undergo surgical intervention today at 11am N.p.o. -patient has not had anything to eat or drink since yesterday Notified Dr. Abrams and the operating room Will follow
--- NOTE | 2023-12-06 09:11 | ECG_ITS ---
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
--- NOTE | 2023-12-06 09:31 | CM.NOTE ---
Rounds made with Dr. Abrams. Dr. Abrams discusses plan for surgery today and potential discharge to home post-op on po antibiotics. Mr. Nicholas in agreement.
[2023-12-06] MEDS: LACTATED RINGER'S SOLUTION 1,000 ML 50 ML IV (10:37)
--- NOTE | 2023-12-06 10:41 | SWNOTE1 ---
SW met with pt to discuss dc needs. Nurse was preparing pt for surgery, SW spoke to . Pt lives at home with and is independent at home. Pt does not use any DME at home. Pt's has no concerns about discharge at this time and no anticipated discharge needs for patient. Pt did work with physical therapy yesterday and was independent, no needs. SW to follow as needed.
--- NOTE | 2023-12-06 10:43 | SWNOTE1 ---
Medicare Outpatient Observation Notice reviewed and discussed with patient. Pt. verbalized understanding and signed the form. Original given to patient and copy placed in patient?s chart.
--- NOTE | 2023-12-06 11:20 | P.ORON_ITS ---
Brief Operative Note Date of procedure: 12/06/23 Pre-op diagnosis general: Right leg abscess, deep Post-op diagnosis: same as pre-op Procedure: Procedure performed: Incision and drainage of deep right leg abscess Indications for procedure: Please see consultation note for details Intraoperative findings: Hematoma with 2 cm of surrounding erythema and a small amount of purulent drainage. Once the hematoma was excised there is a full- thickness wound down to fat and fascia over the anterior leg. Less than 2 cm of purulence was found. Once all nonviable soft tissue was excised the wound measured 5.3 by 4.4 x 0.2 cm. No bone was exposed Procedure in detail: Patient was identified in preoperative holding by myself which time correct side and site were marked and consent was obtained. Patient is receiving vancomycin and Zosyn on the floor therefore no additional antibiotics were provided. Patient was brought back to the operating theater placed on table in supine position. IV sedation was administered and the right lower extremity was prepped and draped in the usual sterile fashion. Formal timeout was performed and the surgical site was anesthetized with 10 cc of 1% lidocaine plain and 10 cc of 1% lidocaine with epi. The wound on the anterior right leg was excised sharply with a scalpel down to and including fat and fascia while evacuating all hematoma with curettes. Purulence was also evacuated and soft tissue swab was obtained to be sent to microbiology. The surgical site was then irrigated with 2 L normal saline on pulse lavage. Makenna hemostatic powder and a temporary pressure dressing was applied for hemostasis. Once hemostasis was obtained a dry sterile dressing consisting of Mepitel, Kerlix, ABDs and an David wrap were applied. Postoperative plan: Transfer to medical surgical unit under the hospitalist care Weightbearing as tolerated Reinforce dressing with ABDs and David wrap as needed Apply ice and elevate operative extremity Patient may be discharged home on oral antibiotics once stable per the hospitalist -which likely will be tomorrow morning Follow-up in the wound center within 1 week from discharge Anesthesia: MAC Surgeon: Efren Feng Estimated blood loss (mL): 25 Tourniquet time (min): 0 Pathology: other (soft tissue swabs) Condition: stable Disposition: PACU
--- NOTE | 2023-12-06 11:24 | P.IMPN_ITS ---
Progress Note: A&P Assessment and Plan (1) Cellulitis: Assessment and Plan: Cellulitis and abscess of right anterior leg. s/p I&D. On IV abx. F/u cx. Qualifiers: Laterality: right Site of cellulitis: extremity Site of cellulitis of extremity: lower extremity Qualified Code(s): L03.115 - Cellulitis of right lower limb (2) Abscess of tendon sheath, right lower leg: Assessment and Plan: s/p I&D. F/u OR cx. c/w IV abx (3) Infected traumatic leg ulcer: Assessment and Plan: low suspicion of OM. XR normal. s/p I&D of abscess. On IV abx. Qualifiers: Laterality: right Non-pressure ulcer stage: limited to breakdown of skin Qualified Code(s): L97.911 - Non-pressure chronic ulcer of unspecified part of right lower leg limited to breakdown of skin; L08.9 - Local infection of the skin and subcutaneous tissue, unspecified (4) Type 2 diabetes mellitus: Assessment and Plan: SSI while inpatient. Qualifiers: Diabetes mellitus complication status: without complication Diabetes mellitus nursing home insulin use: without nursing home use Qualified Code(s): E11.9 - Type 2 diabetes mellitus without complications (5) A-fib: Assessment and Plan: On Coumadin for stroke px. In NSR. Qualifiers: Atrial fibrillation type: paroxysmal Qualified Code(s): I48.0 - Paroxys mal atrial fibrillation (6) Hyperlipemia: Assessment and Plan: C/w statin Qualifiers: Hyperlipidemia type: unspecified Qualified Code(s): E78.5 - Hyperlipidemia, unspecified Plan At high risk of bleeding due to elevated INR and coumadin use. Will observe overnight to ensure there is no excessive post operative bleeding and Hb remains stable. Internal Medicine - PN: Subj Subjective Interval history: Seen and examined. S/p I&D. Due to elevated INR, anticipated to have more than usual bleeding and hence being monitored overnight. Exam Constitutional Vital Signs, click to edit/add: Last Vital Signs Temp 97.8 F 12/06/23 08:21 Pulse 84 12/06/23 08:21 Resp 18 12/06/23 08:21 BP 158/91 H 12/06/23 08:21 Pulse Ox 95 12/06/23 08:21 O2 Del Method Room Air 12/06/23 08:21 Documenting provider has reviewed patient's vital signs: yes Common normals: no apparent distress and oriented x3 General appearance: cooperative HENMT Common normals: normocephalic and head/scalp atraumatic Head and scalp: normocephalic and atraumatic Eye Common normals: conjunctivae normal and no scleral icterus Conjunctiva: conjunctiva(e) normal Respiratory Common normals: normal respiratory effort and clear to auscultation bilaterally Effort & inspection: able to speak in complete sentences Auscultation: clear to auscultation bilaterally Cardio Common normals: regular rate, S1 normal heart sound and S2 normal heart sound Rate: regular rate Heart sounds: S1 normal and S2 normal GI Common normals: Normal to inspection, nondistended, normoactive bowel sounds present, soft to palpation, non-tender and no hepatosplenomegaly Palpation: soft and no hepatosplenomegaly Extremity Other: Chronic skin discoloration b/l anteriorly lower legs. Palpable tender fluctuance over the anterior right mid leg with purulent drainage and >2cm of surrounding erythema. Neuro Common normals: oriented x3, moves all extremities and no focal motor deficits Psych Common normals: mental status grossly normal, denies hallucinations, denies homicidal ideation and denies suicidal ideation Internal Medicine - PN: Obj Da Labs Labs: Laboratory Results - last 24 hr 12/05/23 12/05/23 12/05/23 10:36 16:08 20:05 WBC RBC Hgb Hct MCV MCH MCHC RDW Plt Count MPV Neut % (Auto) Lymph % (Auto) [place] % (Auto) Eos % (Auto) Baso % (Auto) Neut # (Auto) Lymph # (Auto) [place] # (Auto) Eos # (Auto) Baso # (Auto) Abs Immat Gran (auto) Imm/Tot Granulo (auto) PT 32.7 H INR 3.49 Sodium Potassium Chloride Carbon Dioxide Anion Gap BUN Creatinine Est GFR ( Amer) Est GFR (Non-Af Amer) BUN/Creatinine Ratio Glucose Estimat Average Glucose 126 Hemoglobin A1c 6.0 Calcium Total Bilirubin AST ALT Alkaline Phosphatase Total Protein Albumin Globulin Albumin/Globulin Ratio POC Glucose 89 93 12/06/23 06:05 WBC 7.5 RBC 4.56 L Hgb 13.6 L Hct 42.1 MCV 92.3 MCH 29.8 MCHC 32.3 RDW 14.6 Plt Count 205 MPV 10.0 Neut % (Auto) 65.2 Lymph % (Auto) 23.5 [place] % (Auto) 8.6 Eos % (Auto) 1.7 Baso % (Auto) 0.7 Neut # (Auto) 4.9 Lymph # (Auto) 1.8 [place] # (Auto) 0.6 Eos # (Auto) 0.1 Baso # (Auto) 0.1 Abs Immat Gran (auto) 0.02 Imm/Tot Granulo (auto) 0.3 PT 26.6 H INR 2.78 Sodium 137 Potassium 4.0 Chloride 104 Carbon Dioxide 28.4 Anion Gap 8.6 BUN 15.0 Creatinine 0.75 Est GFR ( Amer) >60 Est GFR (Non-Af Amer) >60 BUN/Creatinine Ratio 20.0 Glucose 106 Estimat Average Glucose Hemoglobin A1c Calcium 8.7 Total Bilirubin 1.1 H AST 18 ALT 20 Alkaline Phosphatase 78 Total Protein 6.2 L Albumin 2.9 L Globulin 3.3 Albumin/Globulin Ratio 0.9 POC Glucose
[2023-12-06] MEDS: LIDOCAINE HCL 1% 100 MG/10 ML MDV INJ (11:44)
[2023-12-06] MEDS: LIDOCAINE HCL 1%-EPINEPHRINE 1:100,000 20 ML MDV 10 ML INJ (11:44)
[2023-12-06 12:16] LABS: Glucometer 115 mg/dL (74-106)
[2023-12-06 16:32] LABS: Glucometer 189 mg/dL (74-106)
[2023-12-06] MEDS: INSULIN ASPART 300 UNIT/3 ML PEN SUBQ ×2 (17:00→21:19)
[2023-12-06] MEDS: VANCOMYCIN HCL 1,250 MG in 0.9 % SODIUM CHLORIDE 250 ML 167 MG IV (17:00)
[2023-12-06] MEDS: 0.9 % SODIUM CHLORIDE 250 ML 10 ML IV (20:10)
[2023-12-06] MEDS: ATORVASTATIN CALCIUM 20 MG TABLET 80 MG PO (21:14)
[2023-12-06 21:15] LABS: Glucometer 196 mg/dL (74-106)
[2023-12-06] MEDS: WARFARIN SODIUM 3 MG TABLET 6 MG PO (21:30)
[2023-12-06] MEDS: ACETAMINOPHEN 325 MG TABLET 650 MG PO (23:06)
[2023-12-07] MEDS: VANCOMYCIN HCL 1,250 MG in 0.9 % SODIUM CHLORIDE 250 ML 166 MG IV (03:06)
[2023-12-07 04:12] VITALS: O2SAT 98
[2023-12-07] MEDS: PIPERACILLIN SODIUM/TAZOBACTAM 3.375 GM in 0.9 % SODIUM CHLORIDE 50 ML IV (04:47)
[2023-12-07 04:53] VITALS: BP 147/79; PULSE 63; TEMP 36.6; O2SAT 96
[2023-12-07 05:58] LABS: Basophils Percent Auto 0.2 % (0.2-2.0); Hematocrit 41.7 % (42.0-54.0); Hemoglobin 13.5 g/dL (14.0-18.0); Immature Granulocytes Abs Auto 0.04 10^3/uL (0.00-0.03); Immature Granulocytes Pct Auto 0.4 % (0.0-0.5); Lymphocytes Absolute Auto 1.1 10^3/uL (1.2-3.8); Lymphocytes Percent Auto 11.5 % (20.5-60.0); Mean Corpuscular HGB Conc 32.4 g/dL (29.9-35.2); Mean Corpuscular Hemoglobin 29.5 pg (25.9-34.0); Mean Platelet Volume 10.3 fL (9.5-13.5); Monocytes Absolute Auto 0.5 10^3/uL (0.3-0.8); Monocytes Percent Auto 4.8 % (1.7-12.0); Neutrophils Absolute Auto 7.9 10^3/uL (1.4-6.5); Neutrophils Percent Auto 83.1 % (43.0-75.0); Platelet Count 209 10^3/uL (150-450); Red Blood Count 4.58 10^6/uL (4.70-6.10); Red Cell Distribution Width 14.4 % (11.0-15.0); White Blood Count 9.5 10^3/uL (4.0-11.0)
[2023-12-07 06:15] LABS: INR 2.55; Prothrombin Time 24.6 sec (9.0-11.6)
[2023-12-07 06:19] LABS: Alanine Aminotransferase 17 U/L (16-63); Albumin Globulin Ratio 0.8; Albumin Level 2.8 g/dL (3.4-5.0); Alkaline Phosphatase 74 U/L (46-116); Anion Gap 13.9; Aspartate Amino Transferase 15 U/L (15-37); BUN Creatinine Ratio 18.1; Bilirubin Total 1.1 mg/dL (0.2-1.0); Calcium 8.6 mg/dL (8.5-10.1); Carbon Dioxide 22.2 mmol/L (21.0-32.0); Chloride 104 mmol/L (98-107); Estimated GFR (African America >60 (>=60); Estimated GFR (Non-African Ame >60 (>=60); Globulin 3.3 g/dL; Glucose 132 mg/dL (74-106); Potassium 4.1 mmol/L (3.5-5.1); Sodium 136 mmol/L (136-145); Total Protein 6.1 g/dL (6.4-8.2)
[2023-12-07 07:17] VITALS: PULSE 70
[2023-12-07 07:53] VITALS: BP 153/76; PULSE 70; TEMP 36.6; O2SAT 96
[2023-12-07] MEDS: ALLOPURINOL 300 MG TABLET PO (09:02)
--- NOTE | 2023-12-07 10:04 | PM.DS1 ---
DS: Providers Provider Date of admission: 12/05/23 13:05 Primary care physician: Declan Bruce DO Admitting clinician: Shaikh Jose Alberto Attending physician on admission: Shaikh Jose Alberto Consults: 12/05/23 12:55 Physical Therapy Eval and Treat Routine Reason for consultation: Ambulatory dysfunction/weakness 12/05/23 13:54 Consult to Podiatry Routine Consulting Provider: Efren Feng Reason for consultation: CELLULITIS Attending physician on discharge: Shaikh Jose Alberto Discharging clinician: Shaikh Jose Alberto Anticipated date of discharge: 12/07/23 DS: Diagnosis Discharge Diagnosis (1) Cellulitis: Qualifiers: Laterality: right Site of cellulitis: extremity Site of cellulitis of extremity: lower extremity Qualified Code(s): L03.115 - Cellulitis of right lower limb (2) Abscess of tendon sheath, right lower leg: (3) Infected traumatic leg ulcer: Qualifiers: Laterality: right Non-pressure ulcer stage: limited to breakdown of skin Qualified Code(s): L97.911 - Non-pressure chronic ulcer of unspecified part of right lower leg limited to breakdown of skin; L08.9 - Local infection of the skin and subcutaneous tissue, unspecified (4) Type 2 diabetes mellitus: Qualifiers: Diabetes mellitus ferry terminal agent insulin use: without ferry terminal agent use Diabetes mellitus complication status: without complication Qualified Code(s): E11.9 - Type 2 diabetes mellitus without complications (5) A-fib: Qualifiers: Atrial fibrillation type: paroxysmal Qualified Code(s): I48.0 - Paroxysmal atrial fibrillation (6) Hyperlipemia: Qualifiers: Hyperlipidemia type: unspecified Qualified Code(s): E78.5 - Hyperlipidemia, unspecified DS: Summary Hospital Course Hospital Course: 78 y o male presented to ED with right leg swelling/erythema and pain. He was doing laundry at home 2 weeks when he bumped his leg against the foot steps and injured himself. He noticed skin surrounding the initial impact/injured site started to increasingly get red/swollen with clear drainage. He came to ED for further eval as his symptoms were progressively worsening. Evaluated in ED, elevated ESR noted, XR - no evidence of bony destruction/OM. no evidence of DVT on US. Patient was treated with IV vancomycin/zosyn. He was seen by Podiatry who took him to OR I&D. About 2 cm of purulent area noted. Aspirated pus sent for cx. Patient was monitored overnight post I&D as he had excessive blood oozing due to elevated INR. He had no active bleeding overnight. Hb remained stable. Patient is medically stable for discharge on oral abx. Pharmacist will inform patient to reduce his coumadin dose and have his INR checked on Monday. He will need f/u with Wound clinic in 3 days and with PCP in 1 week Status at Discharge Functional status at discharge: independent ambulation Overall status at discharge: patient is back to baseline Time Spent with Patient Time attestation: Total time spent providing and/or coordinating discharge services: Time spent: greater than 30 minutes Exam Constitutional Vital Signs, click to edit/add: Last Vital Signs Temp 97.9 F 12/07/23 07:53 Pulse 70 12/07/23 07:53 Resp 18 12/07/23 07:53 BP 153/76 H 12/07/23 07:53 Pulse Ox 96 12/07/23 07:53 O2 Del Method Room Air 12/07/23 04:53 Documenting provider has reviewed patient's vital signs: yes Common normals: no apparent distress and oriented x3 General appearance: cooperative Respiratory Common normals: normal respiratory effort and clear to auscultation bilaterally Effort & inspection: able to speak in complete sentences Auscultation: clear to auscultation bilaterally Cardio Common normals: regular rate, S1 normal heart sound and S2 normal heart sound Rate: regular rate Heart sounds: S1 normal and S2 normal Extremity Other: Chronic skin discoloration b/l anteriorly lower legs. Dressing removed. Previously seen erythema/swelling more or less resolved. Skin ulcer anteriorly for I&d. no discharge or bleeding. Neuro Common normals: oriented x3, moves all extremities and no focal motor deficits Psych Common normals: mental status grossly normal, denies hallucinations, denies homicidal ideation and denies suicidal ideation DS: Data Data Completed and Pending Labs on day of discharge: Labs from last 24 hours 12/07/23 12/06/23 12/06/23 05:27 21:14 16:25 WBC 9.5 RBC 4.58 L Hgb 13.5 L Hct 41.7 L MCV 91.0 MCH 29.5 MCHC 32.4 RDW 14.4 Plt Count 209 MPV 10.3 Neut % (Auto) 83.1 H Lymph % (Auto) 11.5 L [place] % (Auto) 4.8 Eos % (Auto) 0.0 L Baso % (Auto) 0.2 Neut # (Auto) 7.9 H Lymph # (Auto) 1.1 L [place] # (Auto) 0.5 Eos # (Auto) 0.0 Baso # (Auto) 0.0 Abs Immat Gran (auto) 0.04 H Imm/Tot Granulo (auto) 0.4 PT 24.6 H INR 2.55 Sodium 136 Potassium 4.1 Chloride 104 Carbon Dioxide 22.2 Anion Gap 13.9 BUN 13.0 Creatinine 0.72 Est GFR ( Amer) >60 Est GFR (Non-Af Amer) >60 BUN/Creatinine Ratio 18.1 Glucose 132 H Calcium 8.6 Total Bilirubin 1.1 H AST 15 ALT 17 Alkaline Phosphatase 74 Total Protein 6.1 L Albumin 2.8 L Globulin 3.3 Albumin/Globulin Ratio 0.8 POC Glucose 196 H 189 H 12/06/23 12:14 WBC RBC Hgb Hct MCV MCH MCHC RDW Plt Count MPV Neut % (Auto) Lymph % (Auto) [place] % (Auto) Eos % (Auto) Baso % (Auto) Neut # (Auto) Lymph # (Auto) [place] # (Auto) Eos # (Auto) Baso # (Auto) Abs Immat Gran (auto) Imm/Tot Granulo (auto) PT INR Sodium Potassium Chloride Carbon Dioxide Anion Gap BUN Creatinine Est GFR ( Amer) Est GFR (Non-Af Amer) BUN/Creatinine Ratio Glucose Calcium Total Bilirubin AST ALT Alkaline Phosphatase Total Protein Albumin Globulin Albumin/Globulin Ratio POC Glucose 115 H Discharge Plan Discharge Disposition: Home, Self-Care Discharge Medications: New sulfamethoxazole-trimethoprim [Bactrim DS] 800-160 mg tablet 1 tab PO BID Qty: 14 0RF Continued allopurinol 300 mg tablet 300 mg PO DAILY furosemide 40 mg tablet 40 mg PO DAILY hydrocortisone 2.5 % cream See Rx Instructions topical .COMPLEX Rx Instructions: APPLY TOPICALLY TO FACE DAILY MONDAY-MONDAY, WEEKENDS OFF FOR 2 WEEKS AND THEN USE NEEDED FOR FLARES (SEBORRHEIC DERMATITIS) metformin 500 mg tablet 500 mg PO DAILY potassium chloride 20 mEq tablet extended release 20 meq PO DAILY pravastatin 80 mg tablet 80 mg PO DAILY warfarin 4 mg tablet 4 mg PO MOTUTHFRSA@2200 warfarin 6 mg tablet 6 mg PO SUWE@2199 Activity: increase activity as tolerated Diet: advance to your usual diet Print Language: American Patient Instructions: Sulfamethoxazole/Trimethoprim (By mouth), Acute Wounds (DC), Incision and Drainage (DC) Forms: Portal Instructions Follow Up Appointments: F/u with Wound clinic on Monday F/u with Coumadin clinic on Monday F.u with PCP in one week
--- NOTE | 2023-12-07 10:13 | PM.PN ---
Progress Note: Subjective Subjective Interval history: Patient seen at bedside and is happy with his care. He was monitored overnight due to elevated INR. He denies systemic signs of infection, no leg pain/calf pain, no chest pain or shortness of breath Exam Narrative Exam Narrative: Dressing removed and there is a granular wound with minimal dried blood on the bandage. No signs of infection. No surrounding erythema. No fluctuance Constitutional Vital Signs, click to edit/add: Last Vital Signs Temp 97.9 F 12/07/23 07:53 Pulse 70 12/07/23 07:53 Resp 18 12/07/23 07:53 BP 153/76 H 12/07/23 07:53 Pulse Ox 96 12/07/23 07:53 O2 Del Method Room Air 12/07/23 04:53 Progress Note: Objective Labs Labs: Short CBC 12/07/23 Range/Units 05:27 WBC 9.5 (4.0-11.0) 10^3/uL Hgb 13.5 L (14.0-18.0) g/dL Hct 41.7 L (42.0-54.0) % Plt Count 209 (150-450) 10^3/uL BMP 12/07/23 05:27 Sodium 136 Potassium 4.1 Chloride 104 Carbon Dioxide 22.2 BUN 13.0 Creatinine 0.72 Glucose 132 H Calcium 8.6 Liver Function 12/07/23 Range/Units 05:27 Total Bilirubin 1.1 H (0.2-1.0) mg/dL AST 15 (15-37) U/L ALT 17 (16-63) U/L Alkaline Phosphatase 74 (46-116) U/L Albumin 2.8 L (3.4-5.0) g/dL Progress Note: A&P Assessment and Plan (1) Cellulitis: Qualifiers: Laterality: right Site of cellulitis: extremity Site of cellulitis of extremity: lower extremity Qualified Code(s): L03.115 - Cellulitis of right lower limb (2) Abscess of tendon sheath, right lower leg: (3) Infected traumatic leg ulcer: Qualifiers: Laterality: right Non-pressure ulcer stage: limited to breakdown of skin Qualified Code(s): L97.911 - Non-pressure chronic ulcer of unspecified part of right lower leg limited to breakdown of skin; L08.9 - Local infection of the skin and subcutaneous tissue, unspecified (4) Type 2 diabetes mellitus: Qualifiers: Diabetes mellitus terminal supervisor insulin use: without custodial use Diabetes mellitus complication status: without complication Qualified Code(s): E11.9 - Type 2 diabetes mellitus without complications (5) A-fib: Qualifiers: Atrial fibrillation type: paroxysmal Qualified Code(s): I48.0 - Paroxysmal atrial fibrillation (6) Hyperlipemia: Qualifiers: Hyperlipidemia type: unspecified Qualified Code(s): E78.5 - Hyperlipidemia, unspecified Plan Patient is status post I&D on right leg which was performed yesterday. Okay to discharge home with home health care changing his bandage 3 days a week with Xeroform, 4 x 4's, Kerlix and an David wrap. He may weight-bear as tolerated. Keep dressing clean dry and intact. Follow-up in the wound center in [address] Abrams
--- NOTE | 2023-12-07 10:22 | CM.NOTE ---
Rounds made with Dr. Abrams, discussed with pt about discharge to home today. Dr. Feng also in to evaluate pt, pt will need drsg changes 3xweek and f/u with Jung in office. Discussed with pt about HH services, pt choices after given [employer] 5 star rating [facility] or [facility].
[2023-12-07 10:45] VITALS: O2SAT 96
--- NOTE | 2023-12-07 11:15 | SWNOTE1 ---
ANTONELLA spoke to case management and pt will need dressing change 3x a week and likely need home health. Case management spoke with pt and he would like to use the home health company with 5 star rating. [facility] is only 5 star rating. ANTONELLA sent [facility] the referral. Referral included demographic sheet, ED note, H&P, operative note, wound care note, physician notes, CRF, and dc med rec.
--- NOTE | 2023-12-12 16:16 | CM.DCFOLLOWU ---
Person spoke with:patient How are you feeling?well How is your pain?none Did you understand your discharge instructions?yes Do you have any questions about your discharge instructions?no Were you given any prescriptions at discharge?yes Were you able to get your prescriptions filled?yes Do you understand how to take your medications as ordered?yes Do you have any questions about your follow up appointment and do you plan to keep your follow up appointment?no questions, reviewed follow up Is there anything else that you would like to discuss?no Questions/Comments/Concerns/Other: none
== END 2023-12-07 11:53 | disposition home health service (06) ==
LOC: ER 12:30 → MS 12-06 06:03
PROVIDERS: Podiatrist Foot & Ankle Surgery; Admitting Provider Internal Medicine; Emergency Provider Emergency Medicine; PCP Internal Medicine; Visit Provider Internal Medicine
PROC: (CPT 27603; principal; 2023-12-06 11:00)
DX: M65.061 Abscess of tendon sheath, right lower leg (principal); L03.115 Cellulitis of right lower limb; E11.9 Type 2 diabetes mellitus without complications; L97.911 Non-pressure chronic ulcer of unspecified part of right lower leg limited to breakdown of skin; L08.9 Local infection of the skin and subcutaneous tissue, unspecified; I48.0 Paroxysmal atrial fibrillation; E78.5 Hyperlipidemia, unspecified; R79.1 Abnormal coagulation profile; Z79.899 Other long term (current) drug therapy; Z87.891 Personal history of nicotine dependence; Z79.84 Long term (current) use of oral hypoglycemic drugs; Z79.01 Long term (current) use of anticoagulants
CPT/HCPCS: 27603; 36415; 73590; 80053; 82948; 83036; 85025; 85610; 85652; 86140; 87040; 87070; 87102; 87116; 87205; 87206; 93005; 93971; 94761; 96365; 96366; 96367; 99285; 99999; G0378; J0295; J1100; J2250; J2371; J2543; J2704; J3010; J3370

== ENCOUNTER 2023-12-12 02:43 | Outpatient (RCR) | payer MEDICARE, OTHER, SELFPAY | END 2024-01-11 23:46 | disposition home or self-care (01) | LOC: MM 02:43 | PROVIDERS: PCP Internal Medicine; Visit Provider Internal Medicine | DX: Z51.81 Encounter for therapeutic drug level monitoring (principal); Z79.01 Long term (current) use of anticoagulants | CPT/HCPCS: 85610; G0463 ==

== ENCOUNTER 2023-12-15 11:36 | Outpatient (OUT) | payer MEDICARE, OTHER, SELFPAY | END 2023-12-15 11:37 | disposition home or self-care (01) | LOC: WC 11:36 | PROVIDERS: PCP Internal Medicine; Visit Provider Podiatrist Foot & Ankle Surgery | DX: I70.232 Atherosclerosis of native arteries of right leg with ulceration of calf (principal); L97.212 Non-pressure chronic ulcer of right calf with fat layer exposed | CPT/HCPCS: G0463 ==

== ENCOUNTER 2023-12-29 11:52 | Outpatient (OUT) | payer MEDICARE, OTHER, SELFPAY ==
--- OUTSIDE RECORDS SUMMARY | 2023-12-29 11:57 | XMS_ITS | CCD ---
Author Organization [facility] Care Team Providers Care Abstract Maker Name Role Phone Declan Swanson DO Primary Care Provider Bruce Shine II Unavailable Declan Swanson DO Primary Care Provider Declan Swanson DO Primary Care Provider Declan Swanson Unavailable JOSE ALBERTO, PIERRE H Attending Unavailable BALL, DR MANRIQUEZ Primary Care Unavailable FAWWAD, PIERRE H Admitting Unavailable BALL, DR MANRIQUEZ Primary Care Unavailable KRYSTAL, EDGARDO Silvestre Attending Unavailable HIGHLANDER, EDGARDO Silvestre Admitting Unavailable BALL, DR MANRIQUEZ Primary Care Unavailable FAWWAD, PIERRE H Attending Unavailable FAWWAD, PIERRE H Admitting Unavailable BALL, DR MANRIQUEZ Primary Care Unavailable BALL, DR MANRIQUEZ Admitting Unavailable BALL, DR MANRIQUEZ Consulting Unavailable BALL, DR MANRIQUEZ Attending Unavailable WEST, DR GLENDA Emanuel Consulting Unavailable BALL, DR MANRIQUEZ Primary Care Unavailable MISC, DR KAPLAN Consulting Unavailable MISC, DR KAPLAN Attending Unavailable MISC, DR KAPLAN Admitting Unavailable BALL, DR MANRIQUEZ Admitting Unavailable BALL, DR MANRIQUEZ Attending Unavailable BALL, DR MANRIQUEZ Primary Care Unavailable BALL, DR MANRIQUEZ Consulting Unavailable FAWWAD, PIERRE H Attending Unavailable FAWWAD, PIERRE H Admitting Unavailable BALL, DR MANRIQUEZ Primary Care Unavailable FAWWAD, PIERRE H Admitting Unavailable BALL, DR MANRIQUEZ Primary Care Unavailable FAWWAD, PIERRE H Attending Unavailable FAWWAD, PIERRE H Admitting Unavailable BALL, DR MANRIQUEZ Primary Care Unavailable FAWWAD, PIERRE H Attending Unavailable FAWWAD, PIERRE H Admitting Unavailable BALL, DR MANRIQUEZ Primary Care Unavailable FAWWAD, PIERRE H Attending Unavailable FAWWAD, PIERRE H Admitting Unavailable BALL, DR MANRIQUEZ Primary Care Unavailable FAWWAD, PIERRE H Attending Unavailable BALL, DR MANRIQUEZ Primary Care Unavailable FAWWAD, PIERRE H Attending Unavailable FAWWAD, PIERRE H Admitting Unavailable FAWWAD, PIERRE H Admitting Unavailable BALL, DR MANRIQUEZ Primary Care Unavailable FAWWAD, PIERRE H Attending Unavailable FAWWAD, PIERRE H Admitting Unavailable BALL, DR MANRIQUEZ Primary Care Unavailable FAWWAD, PIERRE H Attending Unavailable BALL, DR MANRIQUEZ Primary Care Unavailable HIGHLANDER, EDGARDO Silvestre Admitting Unavailable HIGHLANDER, EDGARDO Silvestre Attending Unavailable ZIEBER, DR JAMIE Loaiza Consulting Unavailable HIGHLANDER, EDGARDO Silvestre Consulting Unavailable BALL, DR MANRIQUEZ Primary Care Unavailable BALL, DR MANRIQUEZ Admitting Unavailable BALL, DR MANRIQUEZ Consulting Unavailable BALL, DR MANRIQUEZ Attending Unavailable FAWWAD, PIERRE H Admitting Unavailable BALL, DR MANRIQUEZ Primary Care Unavailable FAWWAD, PIERRE H Attending Unavailable BALL, DR MANRIQUEZ Primary Care Unavailable BALL, DR MANRIQUEZ Admitting Unavailable BALL, DR MANRIQUEZ Consulting Unavailable BALL, DR MANRIQUEZ Attending Unavailable Kiki, DO Manriquez Primary Care Provider MD Bruce Shine II Attending Provider Ruben Celis Unavailable MD Ruben Celis Attending Provider [phone] Ruben Celis Admitting Unavailable Ruben Celis Attending Unavailable Declan Swanson Primary Care Unavailable Declan Swanson Primary Care Unavailable Bruce Shine II Admitting UnavailBruce Cui II Attending Unavailmarichuy e Ruben Celis Admitting Unavailable Ruben Celis Attending Unavailable Declan Swanson Primary Care Unavailable Declan Swanson DO Primary Care Provider JARROD DIALLO Attending Unavailable JARROD DIALLO Attending Unavailable JOHN CHURCHILL Attending Unavailable JARROD DIALLO Attending Unavailable JOHN CHURCHILL Attending Unavailable VENKAT EVANS Referring Unavailable DECLAN SWANSON Primary Care Unavailable KIKI, DECLAN Coleman Primary Care Unavailable VENKAT EVANS Referring Unavailable VENKAT EVANS Attending Unavailable DECLAN SWANSON Primary Care Unavailable VENKAT EVANS Referring Unavailable KIKI, DECLAN Coleman Primary Care Unavailable SHAMA IBANEZ Attending Unavailable VENKAT EVANS Attending Unavailable DECLAN SWANSON Primary Care Unavailable Allergies Allergy Classification Reported Allergen(s) Allergy Type Date of Onset Reaction(s) Facility (20 sources) Latex Drug allergy 4 Unknown, Unknown Reaction [facility] (20 sources) Iodinated contrast media (substance) Drug allergy Unknown [facility] Other (4 sources) Iodinated Contrast Media Allergy to substance 4 Unknown Reaction [facility] Medications Current Medications Medication Drug Class(es) [...] tablet (20 sources) Xanthine Oxidase Inhibitor Start: End: 4 take 300 mg by mouth once daily Allopurinol Active 300 MG PO Daily 90 August 30, 2023 12:03pm Comment on above: Take 300 mg by mouth once daily. cephalexin 500 mg oral tablet (11 sources) Cephalosporin Antibacterial Start: 4 take 1 tablet by mouth every eight hours Cephalexin 500 MG 1 tablet Orally tid for 7 days Mar, Active Start: 11-04-[address] [facility] every twelve hours Cephalexin 500 MG 1 capsule Orally bid for 7 days Oct, Not-Taking/PRN COMPOUNDED PRESCRIPTION (20 sources) COMPOUNDED PRESC RIPTION Skin cream - patient unsure of name. Active COMPOUNDED PRESC RIPTION Skin cream - patient unsure of name. 0 Active Comment on above: Skin cream - patient unsure of name. doxycycline hyclate 100 mg oral capsule (10 sources) Tetracycline-clas s Drug Start: 06-23-2023 End: 06-28-2023 take 100 mg by mouth twice daily Doxycycline Hyclate Active 100 MG PO Twice daily 12 15June 28, 2023 5:26pm Start: 01-02-2023 take 1 capsule by mo [facility] every twelve hours Doxycycline Hyclate 100 MG 1 capsule Orally Twice a day for 5 days Dec, Active empagliflozin 10 mg oral tablet (3 sources) Sodium-Glucose Cotransporter 2 Inhibitor Start: 12-08-2023 take 1 tablet by mouth once daily at breakfast empagliflozin (JARDIANCE) 10 mg tablet Take 1 tablet by mouth daily with breakfast. 90 tablet 3 12/08/2023 Active furosemide 40 mg oral tablet (20 [...] Comment on above: [facility]. metFORMIN hydrochloride 500 mg oral tablet (20 sources) Biguanide Start: 7 End: take 500 mg by mouth once daily Metformin Active 500 MG PO Daily August 30, 2023 12:04pm Comment on above: Take 500 mg by [...] release oral tablet (20 sources) Start: 12-16-2016 End: 08-30-2023 take 20 mEq by mouth once daily Potassium Chloride Active 20 MEQ PO Daily 90 90 August 30, 2023 12:04pm Start: 07-25-2015 take 1 tablet by rod once daily potassium chloride ER (K-DUR, KLOR-CON) 20 mEq tablet Take 1 tablet by mouth once daily. 30 tablet 6 07/25/2015 Active Comment on above: Take 1 tablet by rod th once daily. pravastatin sodium 80 mg oral tablet (20 sources) HMG-CoA Reductase Inhibitor Start: 06-09-19 16 End: 08-30-19 24 take 1 tablet by mouth once daily at bedtime pravastatin (PRAVACHOL) 80 mg tablet Take 1 tablet by mouth daily at bedtime. 90 tablet 3 06/09/2015 Active Comment on above: Take 1 tablet by rod th daily at bedtime. 125 ml sodium chloride 9 mg/ml prefilled syringe (20 sources) Start: 01-01-20 End: 04-01-19 sodium chloride 0.9 % (flush) 10 mL (BD POSIFLUSH) triamcinolone acetonide 1 mg/ml topical cream (20 sources) Corticosteroid Start: 05-01-19 Triamcinolone Acetonide Active 1 APPLIC TOPICAL Twice daily 80 30 May 01, 2023 1:00am Start: 11-26-2019 Start: [...] (20 sources) Vitamin K Antagonist Start: 12-13-2022 End: 08-30-2023 take 6 mg by mouth once daily Warfarin Active 6 MG PO Daily 135 90 August 30, 2023 12:03pm Start: 12-16-2016 End: 08-17-2020 take 4 mg by mouth once daily Warfarin Discontinued 4 MG PO Daily December 16, 2016 12:00am August 17, 2020 12:47pm take 4 tablets by mo [facility] once daily warfarin (COUMADIN) 1 mg tablet Indications: Atrial fibrillation, persistent (HCC) Take 4 mg by mouth once daily. Active Warfarin 4mg 4 m g 1 1/2 tablet orally daily Active Coumadin Active Comment on above: Take 4 mg by mouth o nce daily. Completed/Discontinued Medications Medication Drug Class(es) Dates Sig (Normalized) Sig (Original) apixaban 5 mg oral tablet (10 sources) Factor Xa Inhibitor Start: 1 End: 3 take 1 tablet by mouth twice daily Apixaban (Eliquis) 5 mg tablet Discontinued 5 MG PO Twice daily August 17, 2020 12:00am December 13, 2022 8:45am Comment on above: Take 1 tablet by rod twice daily. aspirin 81 mg delayed release oral tablet (20 sources) Platelet Aggregation Inhibitor, Nonsteroidal Anti-inflammator y Drug take 1 tablet by mouth every twenty-four hours Aspirin 81 MG 1 tablet Orally Once a day Not-Taking/PRN hydroCHLOROthiazide 50 mg oral tablet (7 sources) Thiazide Diuretic Start: 8 End: take 1 tablet by mouth once daily Hydrochlorothiazide Discontinued 1 TAB PO Daily August 18, 2017 12:00am August 17, 2020 12:45pm predniSONE 20 mg oral tablet (6 sources) Start: 4 End: 4 Prednisone Discontinued 20 MG PO As Directed 9 August 09, 2023 12:00am December 18, 2023 11:16am 1 tab bid w/ food x 3 days, then qd w/ food x 3 days Start: 01-03-2023 take 1 tablet by rod twice daily predniSONE 10 MG 1 tablet Orally twice daily w/ food for 5 days Dec, Active sotalol hydrochloride 80 mg oral tablet (7 sources) Antiarrhythmic Start: 12-16-2016 End: 08-17-2020 take 80 mg by mouth once daily Sotalol Discontinued 80 MG PO Daily December 16, 2016 12:00am August 17, 2020 12:46pm tamsulosin hydrochloride 0.4 mg oral capsule (20 sources) alpha-Adrenergic Mohan Start: 12-13-2018 End: 08-17-2020 take 0.4 mg by mouth once daily [...] specified organisms] Onset: 07-17-2014 Episodic Allergic reactions (3 sources) Atopic dermatitis; 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: [Atopic dermatitis, unspecified] [...] Onset: 03-09-2022 Chronic Congestive heart failure; nonhypertensive (17 sources) Acute on chronic diastolic heart failure; 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: [Acute on chronic diastolic (congestive) heart failure] Onset: 09-23-2021 Chronic Coronary atherosclerosis and other heart disease (20 sources) Coronary atherosclerosis; 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: [Atherosclerotic heart disease of [place] coronary artery without angina pectoris] Onset: 07-10-2015 [...] following joint replacement surgery] Chronic Other aftercare (3 sources) Patient encounter status; 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: [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] Episodic Other aftercare (1 source) penitentiary (current) use of anticoagulants; 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: [USP CURRNT USE ANTICOAGULANTS] Onset: 08-10-2022 Episodic Other aftercare (5 sources) Encounter for therapeutic drug level monitoring; 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: [ENC THERAPEUTC DRUG LEVL MONITORING] Onset: 07-09-2022 Episodic Other aftercare (2 sources) Other [facility] (current) drug therapy Episodic Other aftercare (1 source) Drug therapy finding; 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: [penitentiary (current) use of anticoagulants] 07-04-2023 Episodic Other [...] Episodic Other diseases of veins and lymphatics (15 sources) Venous insufficiency (chronic) (peripheral); 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: [Venous [...] Onset: 09-28-2021 Episodic Other lower respiratory disease (2 sources) Nodule of lung; 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: [Solitary pulmonary nodule] [...] and visceral atherosclerosis (20 sources) 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; 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: [Unspecified atherosclerosis of [place] arteries of extremities, bilateral legs] Chronic Residual codes; unclassified (20 sources) Obstructive sleep apnea syndrome; 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: [Obstructive sleep apnea (adult) (pediatric)] Onset: 01-07-2014 01-07-2014 Chronic Residual codes; unclassified (6 sources) Obstructive sleep apnea (adult) (pediatric); 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: [...] lumbar region] Onset: 11-24-2022 Superficial injury; contusion (15 sources) Blister (nonthermal), left lower leg, initial encounter; 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: [Abrasion, lower leg] Onset: 09-05-2016 Episodic Unclassified (5 sources) Long-term current use of drug therapy; 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: [Long-term (current) use of other medications] Onset: 11-28-2016 Unclassified (2 sources) Other persistent atrial fibrillation; 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: [Atrial fibrillation, persistent (HCC)] Onset: 10-23-2019 Unclassified (1 source) Pain in right hip; [...] presenting hazards to health] Onset: 06-01-2016 Episodic Viral infection (20 sources) Disease caused by 2019-nCoV; 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: [COVID-19] Results Test Name Value Interpretation Reference Range Facility [facility] 12-19-2023 CNPN Telephone (CAEPAV) JORGE DAVIS ([id number]) 1945 [facility]* Date Time Provider Department 12/19/23 VENKAT EVANS V CAKAZ During your visit today, we recorded the following information about you: Claire Reeves, RN 12/19/2023 2:17 PM Signed Spoke with patients . Relayed Dr. Pineda message below. Patient is NOT taking Jardiance due to cost. Will adjust Lasix and recheck BNP. Appt scheduled end of Feb with Shama. Patient is requesting change to [place] instead of [place]. Will contact us if no improvement. Venkat Evans V, MD P Avw Card Nurse; P Avw Card Tobacco Sample Puller Tell pt pro bnp is high suggesting fluid overload I started Jardiance so make sure he is taking Increase lasix to 40 mg B ID for 5 days then once a day Recheck pro bnp in 4 weeks Reinforce salt restriction Please schedule earlier appt with [facility] in 4-8 weeks to followup Please tell pt to notify us if he is not improving Francoise Carrington 12/20/2023 12:38 PM Signed Spoke to , rescheduled with [facility] in [place]. now asking about BNP lab for next week. I advised I saw one for 01/17, but not next week. She would like a nurse to confirm and call her. Lyndsay Steen RN 12/20/2023 1:16 PM Signed Order states to be done in 4 weeks, as does Dr. Evans's note. Called, no answer. Left message that the lab is to be drawn in 4 weeks, not next week. Allergies As of Date: 12/19/2023 (No Known Allergies) Date Reviewed: 12/08/2023 Reviewed by: Venkat Evans V, MD - Fully Assessed Prescriptions as of 12/20/2023 - empagliflozin (JARDIANCE) 10 mg tablet Take 1 tablet by mouth daily with breakfast. - warfarin (COUMADIN) 1 mg tablet Take [...] once daily. Problem List As Of Date 12/19/2023 Noted Resolved CHRISTIAN (obstructive sleep apnea) [G47.33] 01/07/2014 HTN (hypertension) [I10] 01/07/2014 Dyslipidemia [E78.5] 01/07/2014 Atrial fibrillation (HCC) [I48.91] 07/08/2014 Atherosclerosis of [place] coronary artery of na*07/10/2015 Diabetes mellitus type 2, controlled, without c*07/10/2015 Atrial fibrillation, persistent (HCC) [I48.19] 07/22/2015 Paroxysmal atrial fibrillation (HCC) [I48.0] 12/04/2015 Paroxysmal atrial flutter (HCC) [I48.92] 05/30/2018 Obesity, Class III, BMI >= 40 [E66.01] 10/23/2019 Chronic diastolic heart failure (HCC) [I50.32] 06/05/2023 Mixed hyperlipidemia [E78.2] 06/05/2023 Encounter Status:Closed by PRONESTI[facility] (CARDMN) JORGE DAVIS ([id number]) 1945 [address] Date Time Provider Department 12/12/23 RUBEN DENTON During your visit today, we recorded the following information about you: Bryan Dwyer 12/12/2023 2:58 PM Signed Documentation scanned into EP outside database Scanned INR report into [facility] Allergies As of Date: 12/12/2023 (No Known Allergies) Date Reviewed: 12/08/2023 Reviewed by: Venkat Evans V, MD - Fully Assessed Reason for Visit: Received Outside Medical Records [[id number]] Prescriptions as of 12/12/2023 - empagliflozin (JARDIANCE) 10 mg tablet Take 1 tablet by mouth daily with breakfast. - warfarin (COUMADIN) 1 mg tablet Take [...] once daily. Problem List As Of Date 12/12/2023 Noted Resolved CHRISTIAN (obstructive sleep apnea) [G47.33] 01/07/2014 HTN (hypertension) [I10] 01/07/2014 Dyslipidemia [E78.5] 01/07/2014 Atrial fibrillation (HCC) [I48.91] 07/08/2014 Atherosclerosis of [place] coronary artery of na*07/10/2015 Diabetes mellitus type 2, controlled, without c*07/10/2015 Atrial fibrillation, persistent (HCC) [I48.19] 07/22/2015 Paroxysmal atrial fibrillation (HCC) [I48.0] 12/04/2015 Paroxysmal atrial flutter (HCC) [I48.92] 05/30/2018 Obesity, Class III, BMI >= 40 [E66.01] 10/23/2019 Chronic diastolic heart failure (HCC) [I50.32] 06/05/2023 Mixed hyperlipidemia [E78.2] 06/05/2023 Encounter Status:Closed by BRYAN DWYER on 12/12/23 Normal [facility] Basic metabolic 2000 panelon 12-08-2023 Anion gap [Moles/Vol] 13 mmol/L 8 - 15 mmol/L [facility] Calcium [Mass/Vol] 9.4 mg/dL 8.5 - 10. 2 mg/dL [facility] Chloride [Moles/Vol] 103 mmol/L 98 - 10 7 mmol/L [facility] CO2 [Moles/Vol] 26 mmol/L 22 - 30 mmol/L [facility] Creatinine [Mass/Vol] 0.99 mg/dL 0.73 - 1.22 mg/dL [facility] GFR/1.73 sq M.predicted among non-blacks MDRD (S/P/Bld) [Vol rate/Area] 78 mL/min/{1.73_m2} - PINF [facility] Comment on above: Estimated Glomerular Filtration Rate (eGFR) is calculated using the 2020 CKD-EPI creatinine equation. This equation utilizes serum creatinine, sex, and age as parameters. The creatinine assay has traceable calibration to isotope dilution-mass spectrometry. Refer to KDIGO guidelines for clinical interpretation. In patients with unstable renal function, e.g. those with acute kidney injury, the eGFR may not accurately reflect actual GFR. Glucose [Mass/Vol] 97 mg/dL 74 - 99 mg/dL [facility] Comment on above: The [place] Diabete s Association (ADA) provides guidance for cutoff values for fasting glucose and random glucose. The ADA defines fasting as no caloric intake for at least 8 hours. Fasting plasma glucose results between 100 to 125 mg/dL indicate increased risk for diabetes (prediabetes). Fasting plasma glucose results greater than or equal to 126 mg/dL meet the criteria for diagnosis of diabetes. In the absence of unequivocal hyperglycemia, results should be confirmed by repeat testing. In a patient with classic symptoms of hyperglycemia or hyperglycemic crisis, random plasma glucose results greater than or equal to 200 mg/dL meet the criteria for diagnosis of diabetes. Reference: Standards of Medical Care in Diabetes 2016, [place] Diabetes Association. Diabetes Care. 2016.39(Suppl 1). Interpretation and review of laboratory results Normal [facility] Potassium [Moles/Vol] 4.3 mmol/L 3.7 - 5.1 mmol/L [facility] Sodium [Moles/Vol] 142 mmol/L 136 - 144 mmol/L [facility] Urea nitrogen [Mass/Vol] 18 mg/dL 9 - 24 mg/dL [facility] Anion gap [Moles/Vol] 13 mmol/L Normal 8-15 [facility] Comment on above: Order Comment: Marlin markham Type: BLOOD SPECIMEN Ordering Facility: [facility] Address: [address] [place] [address] Performed By: #### 3 3762-6, 63331-3 #### [facility] CLIA [id number] [address] [place] [address] [place] Calcium [Mass/Vol] 9.4 mg/dL Normal 8.5-10.2 [facility] Comment on above: Order Comment: Marlin markham Type: BLOOD SPECIMEN Ordering Facility: [facility] Address: [address] [place] [address] Performed By: #### 3 3762-6, 23825-7 #### [facility] CLIA [id number] [address] [place] [address] [place] Chloride [Moles/Vol] 103 mmol/L Normal 98-107 [facility] Comment on above: Order Comment: Marlin markham Type: BLOOD SPECIMEN Ordering Facility: [facility] Address: [address] [place] [address] Performed By: #### 3 3762-6, 96708-9 #### [facility] CLIA [id number] [address] [place] [address] [place] CO2 [Moles/Vol] 26 mmol/L Normal 22-30 [facility] Comment on above: Order Comment: Marlin markham Type: BLOOD SPECIMEN Ordering Facility: [facility] Address: [address] [place] [address] Performed By: #### 3 3762-6, 17281-6 #### [facility] CLIA [id number] [address] [place] [address] [place] Creatinine [Mass/Vol] 0.99 mg/dL Normal 0.73-1.22 [facility] Comment on above: Order Comment: Speci [facility] Type: BLOOD SPECIMEN Ordering Facility: [facility] Address: [address] [place] [address] Performed By: #### 3 3762-6, 35485-4 #### [facility] CLIA [id number] [place] [address] [place] Creatinine and Glomerular filtration rate.predicted panel (S/P/Bld) 78 mL/min/1.73m??? Normal >=60 [facility] Comment on above: Order Comment: Alixi [facility] Type: BLOOD SPECIMEN Ordering Facility: [facility] Address: [address] [place] [address] Result Comment: Colleen mated Glomerular Filtration Rate (eGFR) is calculated using the 2020 CKD-EPI creatinine equation. This equation utilizes serum creatinine, sex, and age as parameters. The creatinine assay has traceable calibration to isotope dilution-mass spectrometry. Refer to KDIGO guidelines for clinical interpretation. In patients with unstable renal function, e.g. those with acute kidney injury, the eGFR may not accurately reflect actual GFR. Performed By: #### 3 3762-6, 00829-3 #### [facility] CLIA [id number] [address] [place] [address] [place] Glucose [Mass/Vol] 97 mg/dL Normal 74-99 [facility] Comment on above: Order Comment: Alixi men Type: BLOOD SPECIMEN Ordering Facility: [facility] Address: [address] [place] [address] Result Comment: The [place] Diabetes Association (ADA) provides guidance for cutoff values for fasting glucose and random glucose. The ADA defines fasting as no caloric intake for at least 8 hours. Fasting plasma glucose results between 100 to 125 mg/dL indicate increased risk for diabetes (prediabetes). Fasting plasma glucose results greater than or equal to 126 mg/dL meet the criteria for diagnosis of diabetes. In the absence of unequivocal hyperglycemia, results should be confirmed by repeat testing. In a patient with classic symptoms of hyperglycemia or hyperglycemic crisis, random plasma glucose results greater than or equal to 200 mg/dL meet the criteria for diagnosis of diabetes. Reference: Standards of Medical Care in Diabetes 2016, [place] Diabetes Association. Diabetes Care. 2016.39(Suppl 1). Performed By: #### 3 3762-6, 38830-0 #### [facility] CLIA [id number] [address] [place] [address] [place] Potassium [Moles/Vol] 4.3 mmol/L Normal 3.7-5.1 [facility] Comment on above: Order Comment: Marlin markham Type: BLOOD SPECIMEN Ordering Facility: [facility] Address: [address] [place] [address] Performed By: #### 3 3762-6, 72638-0 #### [facility] CLIA [id number] [address] [place] [address] [place] Sodium [Moles/Vol] 142 mmol/L Normal 136-144 [facility] Comment on above: Order Comment: Marlin markham Type: BLOOD SPECIMEN Ordering Facility: [facility] Address: [address] [place] [address] Performed By: #### 3 3762-6, 18098-2 #### [facility] CLIA [id number] [address] [place] [address] [place] Urea nitrogen [Mass/Vol] 18 mg/dL Normal 9-24 [facility] Comment on above: Order Comment: Marlin markham Type: BLOOD SPECIMEN Ordering Facility: [facility] Address: [address] [place] [address] Performed By: #### 3 3762-6, 69238-3 #### [facility] CLIA [id number] [address] [place] [address] [facility] CNOVon 12-08-2023 CNOV Office Visit (CARDAV ) RYANJORGE Walls ([id number]) [address] Date Time Provider Department 12/08/23 10:40 AM VENKAT EVANS During your visit today, we recorded the following information about you: Pulse Blood pressure Weight 88/minute 142/80 118.4 kg Venkat Evans V, MD 12/08/2023 11:39 AM Signed Referring Physician: Venkat Evans [id number] [facility] [address] Primary Care Physician: DO Jorge Unger Ryan is a 78 year old male that presents today for followup of Mild CAD by cath Diabetes mellitus controlled Chronic diastolic CHF P atrial fibrillation s/p PVI Persistent a fib noted on last visit and continued Rate intrinsically controlled No near syncope Does not check HR routinely Intermittent edema controlled mostly Weight : stable Last pro bnp 2020 low Feels tired a lot ; could be better Stairs becoming difficult ASSESSMENT/PLAN: 1. Chronic diastolic heart failure (HCC) - ICD9: 428.32, ICD10: I50.32 (primary diagnosis) Candidate for SGLT 2 inhibitor Will start Jardiance ; hopefully not cost prohibitive - NT PRO BNP 2. Atrial fibrillation, persistent (HCC) - ICD9: 427.31, ICD10: I48.19 Followup with EP routinely - BASIC METABOLIC PANEL 3. Obesity, Class III, 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) - ICD9: 278.01, ICD10: E66.01 Continue diet 4. Mixed hyperlipidemia - ICD9: 272.2, ICD10: E78.2 Controlled for risk Continue staitn 5. Coronary artery disease involving [place] coronary artery of [place] heart without angina pectoris - ICD9: 414.01, ICD10: I25.10 Mild Venkat Evans MD Current Medications: Current Medications 12/08/2023 DIABETES THERAPIES Medication Dosage Pharm Subclass metFORMIN [...] - Potassium, Oral PHYSICAL EXAMINATION: Vital Signs: BP 142/80 Pulse 88 Wt 118.4 kg (261 lb) SpO2 97% BMI 43.43 kg/m? Body mass index is 43.43 kg/m?. GENERAL: Alert, oriented., Well appearing. No jaundice, anemia, clubbing, or cyanosis. HEENT: no lymphadenopathy. NECK: no JVD, No masses, or thyromegaly. Good carotid upstrokes. no carotid bruit. No lymphadenopathy. CARDIAC: irreg CHEST: Chest clear to auscultation. 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 Previous cardiovascular interventions: Afib ablation (2019) Primary rhythm: atrial fib. Secondary rhythm: RBBB. Height: 165.10 cm BSA: 2.33 m Weight: 118.60 kg BMI: 43.5 kg/m Heart rate 85 bpm Blood pressure 157/80 mmHg Technically difficult exam due to body habitus and suboptimal positioning. Color Doppler was utilized to interrogate the cardiac valves assessed and spectral Doppler was utilized to determine the flow velocities and pressure gradients reported in this exam. MEASUREMENTS: Value Indexed Normal Max aortic dimension 3.9 cm Ao < 3.8 Left atrial volume 77 ml (biplane A-L) 33 ml/m Demarcus <= 34 LV ID (diastole) 5.2 cm (2D) 2.24 cm/m LV ID (systole) 3.3 cm (2D) 1.40 cm/m IVS, leaflet tips 1.5 cm (2D) Posterior wall thickness 0.9 cm (2D) Left ventricular mass 239 g (2D) 103 g/m LV stroke volume 89 ml (2D 4-ch.) LV end diastolic volume 149 ml (2D 4-ch.) 63.7 ml/m 34<=EDVi<75 LV end systolic volume 59 ml (2D 4-ch.) 25.5 ml/m Ejection Fraction 60 % (2D 4-ch.) EF > 52 FINDINGS: LEFT VENTRICLE The left ventricle is normal in size. There is concentric left ventricular hypertrophy. Left ventricular systolic function is normal. Left ventricular diastolic function was not evaluated due to AF. Wall Motion: All scored segments are normal. RIGHT VENTRICLE The right ventricle is normal in size. Right ventricular systolic function is low normal. RV systolic tissue Doppler velocity is 11.0 cm/s. Tricuspid annular displacement is 1.7 cm. Estimated right ventricular systolic pressure is likely underestimated due to a weak or incomplete tricuspid regurgitation signal and is, at least, 58 mmHg consistent with moderate pulmonary hypertension. Estimated right atrial pressure is 15 mmHg based on IVC assessment. LEFT ATRIUM The left atrial cavity is normal in size. RIGHT ATRIUM The right atrial cavity is normal in size. Inferior Vena Cava: The inferior vena cava appears dilated measuring 2.3 cm. The vessel decreases less than 50 percent with inspiration. MITRAL VALVE There is mild (1+ - 2+) mitral valve regurgitation. There is mild thickening. TRICUSPID VALVE The tricuspid valve leaflets are structurally normal. There is mild (1+) tricuspid valve regurgitation. AORTIC VALVE Aortic morphology is not well visualized. There is mild (1+ - 2+) aortic valve regurgitation. There is mild thickening. There is mild calcification. The peak gradient is 8 mmHg (peak velocity = 141.2 cm/s). PULMONIC VALVE The pulmonic valve was not seen or not interrogated. There is trace pulmonic valve regurgitation. AORTA The visualized aorta is borderline dilated. Measurements - Mid ascending aorta 3.9 cm. PULMONARY ARTERIES The pulmonary arteries are normal. INTERATRIAL SEPTUM There is no evidence of intracardiac shunting as detected by Doppler. INTERVENTRICULAR SEPTUM There is no flow through the interventricular septum as detected by Doppler. PERICARDIUM There is no pericardial effusion. There is an epicardial fat pad. CONCLUSIONS: - Technically difficult exam due to body habitus and suboptimal positioning. - Exam indication: Evaluation of known heart failure to guide therapy - The left ventricle is normal in size. There is concentric left ventricular hypertrophy. Left ventricular systolic function is normal. EF = 60 5% (2D 4-ch.) Left ventricular diastolic function was not evaluated due to AF. - The right ventricle is normal in size. Right ventricular systolic function is low normal. - The visualized aorta is borderline dilated with a maximal dimension of 3.9 cm. - 1-2+ MR, 1-2+ AI - Estimated right ventricular systolic pressure is likely underestimated due to a weak or incomplete tricuspid regurgitation signal and is, at least, 58 mmHg consistent with moderate pulmonary hypertension. Estimated right atrial pressure is 15 mmHg based on IVC assessment. - Exam was compared with the prior CC echocardiographic exam performed on 06/24/2022. RVSP has increased. * * * Final * * * [facility] [facility] : [id number] Normal [facility] Laboratory - Chemistry and C hemistry - challengeon 12-08-2023 Calcium [Mass/Vol] 9.4 mg/dL 8.5-10.2 [facility] Chloride [Moles/Vol] 103 mmol/L 98-107 [facility] CO2 [Moles/Vol] 26 mmol/L 22-30 [facility] Creatinine [Mass/Vol] 0.99 mg/dL 0.73-1.22 [facility] Glucose [Mass/Vol] 97 mg/dL 74-99 [facility] Comment on above: The [place] Diab[employer] s Association (ADA) provides guidance for cutoff values for fasting glucose and random glucose. The ADA defines fasting as no caloric intake for at least 8 hours. Fasting plasma glucose results between 100 to 125 mg/dL indicate increased risk for diabetes (prediabetes).Fasting plasma glucose results greater than or equal to 126 mg/dL meet the criteria for diagnosis of diabetes. In the absence of unequivocal hyperglycemia, results should be confirmed by repeat testing. In a patient with classic symptoms of hyperglycemia or hyperglycemic crisis, random plasma glucose results greater than or equal to 200 mg/dL meet the criteria for diagnosis of diabetes.Reference: Standards of Medical Care in Diabetes 2016, [place] [employer] Association. Diabetes Care. 2016.39(Suppl 1). Potassium [Moles/Vol] 4.3 mmol/L 3.7-5.1 [facility] Sodium [Moles/Vol] 142 mmol/L 136-144 [facility] Urea nitrogen [Mass/Vol] 18 mg/dL 12-04 [facility] NT PRO BNPon 12-08-2023 Natriuretic peptide.B prohormone N-Terminal [Mass/Vol] 2139 pg/mL High NINF - 450 pg/mL [facility] NT-proBNP SerPl-mCncon 12-07 Natriuretic peptide.B prohormone N-Terminal [Mass/Vol] 2139 pg/mL High <450 [facility] Comment on above: Order Comment: Speci men Type: BLOOD SPECIMEN Ordering Facility: [facility] Address: [address] [place] [address] Performed By: #### 3 [id number], [id number] #### [facility] CLIA [id number] [place] [address] [place] Natriuretic peptide.B prohor gerson N-Terminal [Mass/Vol]on 12-08-2023 Interpretation and review of laboratory results Abnormal [facility] Natriuretic peptide.B prohor gerson N-Terminal [Mass/volume] in Serum or Plasmaon 12-08-2023 Natriuretic peptide.B prohormone N-Terminal [Mass/Vol] 2139 pg/mL High <450 [facility] No Panel Informationon 12-07 Estimated GFR (CKD-EPI) 78 mL/min/1.73m??? >=60 [facility] Comment on above: Estimated Glomerular Filtration Rate (eGFR) is calculated using the 2020 CKD-EPI creatinine equation. This equation utilizes serum creatinine, sex, and age as parameters. The creatinine assay has traceable calibration to isotope dilution-mass spectrometry. Refer to KDIGO guidelines for clinical interpretation. In patients with unstable renal function, e.g. those with acute kidney injury, the eGFR may not accurately reflect actual GFR. Serum or plasma anion gap de terminationon 12-08-2023 Anion gap [Moles/Vol] 13 mmol/L 8-15 [facility] Basophils Auto (Bld) [#/Vol] on 12-07-2023 Basophils (Bld) [#/Vol] 0.0 10 3/uL 0.0-0.1 [facility] Basophils/100 WBC Auto (Bld) on 12-07-2023 Basophils/100 WBC (Bld) 0.2 % 0.2-2.0 [facility] Eosinophils/100 WBC Auto (Bl d)on 12-07-2023 Eosinophils/100 WBC (Bld) 0.0 % Low 0.9-7.0 [facility] Erythrocyte distribution wid th Auto (RBC) [Ratio]on 12-07-2023 Erythrocyte distribution width (RBC) [Ratio] 14.4 % 11.0-15.0 [facility] Estimated glomerular filtrat ion rate (GFR) non- Americanon 12-07-2023 GFR/1.73 sq M.predicted among non-blacks MDRD (S/P/Bld) [Vol rate/Area] mL/min/{1.73_m2} >=60 [facility] Globulin Calc (S) [Mass/Vol] on 12-07-2023 Globulin (S) [Mass/Vol] 3.3 g/dL [facility] Hematocrit Auto (Bld) [Volum e fraction]on 12-07-2023 Hematocrit (Bld) [Volume fraction] 41.7 % Low 42.0-54.0 [facility] Hemoglobin [Mass/volume] in Bloodon 12-07-2023 Hemoglobin (Bld) [Mass/Vol] 13.5 g/dL Low 14.0-18.0 [facility] INR in Platelet poor plasma by Coagulation assayon 12-07-2023 INR Coag (PPP) [Relative time] 2.55 {INR} [facility] Comment on above: DESIRED INR:2.0-3.0 CONDITIONS NOT LISTED BELOW2.5-3.5 FOR PROSTHETIC HEART VALVE REPLACEMENT2.5-3.5 RECURRENT THROMBOSIS Laboratory - Chemistry and C hemistry - challengeon 12-07-2023 Albumin [Mass/Vol] 2.8 g/dL Low 3.4-5.0 [facility] ALP [Catalytic activity/Vol] 74 U/L 46-116 [facility] ALT [Catalytic activity/Vol] 17 U/L 16-63 [facility] AST [Catalytic activity/Vol] 15 U/L 15-37 [facility] Bilirubin [Mass/Vol] 1.1 mg/dL High 0.2-1.0 [facility] Calcium [Mass/Vol] 8.6 mg/dL 8.5-10.1 [facility] Chloride [Moles/Vol] 104 mmol/L 98-107 [facility] CO2 [Moles/Vol] 22.2 mmol/L 21.0-32.0 [facility] Creatinine [Mass/Vol] 0.72 mg/dL 0.70-1.30 [facility] GFR/1.73 sq M.predicted MDRD (S/P/Bld) [Vol rate/Area] mL/min/{1.73_m2} >=60 [facility] Glucose [Mass/Vol] 132 mg/dL High 74-106 [facility] Potassium [Moles/Vol] 4.1 mmol/L 3.5-5.1 [facility] Protein [Mass/Vol] 6.1 g/dL Low 6.4-8.2 [facility] Sodium [Moles/Vol] 136 mmol/L 136-145 [facility] Urea nitrogen [Mass/Vol] 13.0 mg/dL 7.0-18.0 [facility] Urea nitrogen/Creatinine [Mass ratio] 18.1 mg/mg [facility] Laboratory - Hematology and Cell countson 12-07-2023 Immature granulocytes/100 WBC (Bld) 0.4 % 0.0-0.5 [facility] Leukocytes [#/volume] correc jossue for nucleated erythrocytes in Blood by Automated counon 12-07-2023 WBC corrected for nucl RBC Auto (Bld) [#/Vol] 9.5 10 3/uL 4.0-11.0 [facility] Lymphocytes Auto (Bld) [#/Vo l]on 12-07-2023 Lymphocytes (Bld) [#/Vol] 1.1 10 3/uL Low 1.2-3.8 [facility] Lymphocytes/100 WBC Auto (Bl d)on 12-07-2023 Lymphocytes/100 WBC (Bld) 11.5 % Low 20.5-60.0 [facility] MCH Auto (RBC) [Entitic mass ]on 12-07-2023 MCH (RBC) [Entitic mass] 29.5 pg 25.9-34.0 [facility] MCHC Auto (RBC) [Mass/Vol]on 12-07-2023 MCHC (RBC) [Mass/Vol] 32.4 g/dL 29.9-35.2 [facility] MCV Auto (RBC) [Entitic vol] on 12-07-2023 MCV (RBC) [Entitic vol] 91.0 fL 80.0-94.0 [facility] Monocytes Auto (Bld) [#/Vol] on 12-07-2023 Monocytes (Bld) [#/Vol] 0.5 10 3/uL 0.3-0.8 [facility] Monocytes/100 WBC Auto (Bld) on 12-07-2023 Monocytes/100 WBC (Bld) 4.8 % 1.7-12.0 [facility] Neutrophils Auto (Bld) [#/Vo l]on 12-07-2023 Neutrophils (Bld) [#/Vol] 7.9 10 3/uL High 1.4-6.5 [facility] Neutrophils/100 WBC Auto (Bl d)on 12-07-2023 Neutrophils/100 WBC (Bld) 83.1 % High 43.0-75.0 [facility] No Panel Informationon 12-06 Eosinophils # (Auto) 0.0 10 3/uL 0.0-0.7 [facility] Immature Granulocyte # (Auto) 0.04 10 3/uL High 0.00-0.03 [facility] Platelet mean volume Auto (B ld) [Entitic vol]on 12-07-2023 Platelet mean volume (Bld) [Entitic vol] 10.3 fL 9.5-13.5 [facility] Platelets Auto (Bld) [#/Vol] on 12-07-2023 Platelets (Bld) [#/Vol] 209 10 3/uL 150-450 [facility] Prothrombin time (PT)on 11-12 PT Coag (PPP) [Time] 24.6 s High 9.0-11.6 [facility] RBC Auto (Bld) [#/Vol]on RBC (Bld) [#/Vol] 4.58 10 6/uL Low 4.70-6.10 [facility] Serum or plasma albumin/glob ulin mass ratioon 12-07-2023 Albumin/Globulin [Mass ratio] 0.8 {ratio} [facility] Serum or plasma anion gap de terminationon 12-07-2023 Anion gap [Moles/Vol] 13.9 [facility] Basophils Auto (Bld) [#/Vol] on 12-06-2023 Basophils (Bld) [#/Vol] 0.1 10 3/uL 0.0-0.1 [facility] Basophils/100 WBC Auto (Bld) on 12-06-2023 Basophils/100 WBC (Bld) 0.7 % 0.2-2.0 [facility] Eosinophils/100 WBC Auto (Bl d)on 12-06-2023 Eosinophils/100 WBC (Bld) 1.7 % 0.9-7.0 [facility] Erythrocyte distribution wid th Auto (RBC) [Ratio]on 12-06-2023 Erythrocyte distribution width (RBC) [Ratio] 14.6 % 11.0-15.0 [facility] Estimated glomerular filtrat ion rate (GFR) non- Americanon 12-06-2023 GFR/1.73 sq M.predicted among non-blacks MDRD (S/P/Bld) [Vol rate/Area] mL/min/{1.73_m2} >=60 [facility] Globulin Calc (S) [Mass/Vol] on 12-06-2023 Globulin (S) [Mass/Vol] 3.3 g/dL [facility] Hematocrit Auto (Bld) [Volum e fraction]on 12-06-2023 Hematocrit (Bld) [Volume fraction] 42.1 % 42.0-54.0 [facility] Hemoglobin [Mass/volume] in Bloodon 12-06-2023 Hemoglobin (Bld) [Mass/Vol] 13.6 g/dL Low 14.0-18.0 [facility] INR in Platelet poor plasma by Coagulation assayon 12-06-2023 INR Coag (PPP) [Relative time] 2.78 {INR} [facility] Comment on above: DESIRED INR:2.0-3.0 CONDITIONS NOT LISTED BELOW2.5-3.5 FOR PROSTHETIC HEART VALVE REPLACEMENT2.5-3.5 RECURRENT THROMBOSIS Laboratory - Chemistry and C hemistry - challengeon 12-06-2023 Albumin [Mass/Vol] 2.9 g/dL Low 3.4-5.0 [facility] ALP [Catalytic activity/Vol] 78 U/L 46-116 [facility] ALT [Catalytic activity/Vol] 20 U/L 16-63 [facility] AST [Catalytic activity/Vol] 18 U/L 15-37 [facility] Bilirubin [Mass/Vol] 1.1 mg/dL High 0.2-1.0 [facility] Calcium [Mass/Vol] 8.7 mg/dL 8.5-10.1 [facility] Chloride [Moles/Vol] 104 mmol/L 98-107 [facility] CO2 [Moles/Vol] 28.4 mmol/L 21.0-32.0 [facility] Creatinine [Mass/Vol] 0.75 mg/dL 0.70-1.30 [facility] GFR/1.73 sq M.predicted MDRD (S/P/Bld) [Vol rate/Area] mL/min/{1.73_m2} >=60 [facility] Glucose [Mass/Vol] 106 mg/dL 74-106 [facility] Potassium [Moles/Vol] 4.0 mmol/L 3.5-5.1 [facility] Protein [Mass/Vol] 6.2 g/dL Low 6.4-8.2 [facility] Sodium [Moles/Vol] 137 mmol/L 136-145 [facility] Urea nitrogen [Mass/Vol] 15.0 mg/dL 7.0-18.0 [facility] Urea nitrogen/Creatinine [Mass ratio] 20.0 mg/mg [facility] Laboratory - Hematology and Cell countson 12-06-2023 Immature granulocytes/100 WBC (Bld) 0.3 % 0.0-0.5 [facility] Leukocytes [#/volume] correc jossue for nucleated erythrocytes in Blood by Automated counon 12-06-2023 WBC corrected for nucl RBC Auto (Bld) [#/Vol] 7.5 10 3/uL 4.0-11.0 [facility] Lymphocytes Auto (Bld) [#/Vo l]on 12-06-2023 Lymphocytes (Bld) [#/Vol] 1.8 10 3/uL 1.2-3.8 [facility] Lymphocytes/100 WBC Auto (Bl d)on 12-06-2023 Lymphocytes/100 WBC (Bld) 23.5 % 20.5-60.0 [facility] MCH Auto (RBC) [Entitic mass ]on 12-06-2023 MCH (RBC) [Entitic mass] 29.8 pg 25.9-34.0 [facility] MCHC Auto (RBC) [Mass/Vol]on 12-06-2023 MCHC (RBC) [Mass/Vol] 32.3 g/dL 29.9-35.2 [facility] MCV Auto (RBC) [Entitic vol] on 12-06-2023 MCV (RBC) [Entitic vol] 92.3 fL 80.0-94.0 [facility] Monocytes Auto (Bld) [#/Vol] on 12-06-2023 Monocytes (Bld) [#/Vol] 0.6 10 3/uL 0.3-0.8 [facility] Monocytes/100 WBC Auto (Bld) on 12-06-2023 Monocytes/100 WBC (Bld) 8.6 % 1.7-12.0 [facility] Neutrophils Auto (Bld) [#/Vo l]on 12-06-2023 Neutrophils (Bld) [#/Vol] 4.9 10 3/uL 1.4-6.5 [facility] Neutrophils/100 WBC Auto (Bl d)on 12-06-2023 Neutrophils/100 WBC (Bld) 65.2 % 43.0-75.0 [facility] No Panel InformationOrdered By: Edgardo Feng on 12-06-2023 Acid Fast Smear [facility] Aerobic Culture [facility] AFB Specimen Processing [facility] Anaerobic Culture [facility] No Panel Informationon 12-05 Fungal Smear Result \R\ Fungus Stain [facility] Gram Stain Result 1 \R\ Gram Stain Result [facility] Miscellaneous Test Comment See comment [facility] Comment on above: Specimen Source: LEG RT - Leg Right - Leg Rt - 603.600 Eosinophils # (Auto) 0.1 10 3/uL 0.0-0.7 [facility] Immature Granulocyte # (Auto) 0.02 10 3/uL 0.00-0.03 [facility] Platelet mean volume Auto (B ld) [Entitic vol]on 12-06-2023 Platelet mean volume (Bld) [Entitic vol] 10.0 fL 9.5-13.5 [facility] Platelets Auto (Bld) [#/Vol] on 12-06-2023 Platelets (Bld) [#/Vol] 205 10 3/uL 150-450 [facility] Prothrombin time (PT)on 11-12 PT Coag (PPP) [Time] 26.6 s High 9.0-11.6 [facility] RBC Auto (Bld) [#/Vol]on RBC (Bld) [#/Vol] 4.56 10 6/uL Low 4.70-6.10 [facility] Serum or plasma albumin/glob ulin mass ratioon 12-06-2023 Albumin/Globulin [Mass ratio] 0.9 {ratio} [facility] Serum or plasma anion gap de terminationon 12-06-2023 Anion gap [Moles/Vol] 8.6 mmol/L [facility] Basophils Auto (Bld) [#/Vol] on 12-05-2023 Basophils (Bld) [#/Vol] 0.0 10 3/uL 0.0-0.1 [facility] Basophils/100 WBC Auto (Bld) on 12-05-2023 Basophils/100 WBC (Bld) 0.6 % 0.2-2.0 [facility] Eosinophils/100 WBC Auto (Bl d)on 12-05-2023 Eosinophils/100 WBC (Bld) 1.7 % 0.9-7.0 [facility] Erythrocyte distribution wid th Auto (RBC) [Ratio]on 12-05-2023 Erythrocyte distribution width (RBC) [Ratio] 14.6 % 11.0-15.0 [facility] Estimated glomerular filtrat ion rate (GFR) non- Americanon 12-05-2023 GFR/1.73 sq M.predicted among non-blacks MDRD (S/P/Bld) [Vol rate/Area] mL/min/{1.73_m2} >=60 [facility] Globulin Calc (S) [Mass/Vol] on 12-05-2023 Globulin (S) [Mass/Vol] 3.6 g/dL [facility] Glucose mean value [Mass/vol ume] in Blood Estimated from glycated hemoglobinon 12-05-2023 Average glucose Estimated from glycated hemoglobin (Bld) [Mass/Vol] 126 mg/dL [facility] Hematocrit Auto (Bld) [Volum e fraction]on 12-05-2023 Hematocrit (Bld) [Volume fraction] 42.7 % 42.0-54.0 [facility] Hemoglobin [Mass/volume] in Bloodon 12-05-2023 Hemoglobin (Bld) [Mass/Vol] 13.9 g/dL Low 14.0-18.0 [facility] INR in Platelet poor plasma by Coagulation assayon 12-05-2023 INR Coag (PPP) [Relative time] 3.49 {INR} [facility] Comment on above: DESIRED INR:2.0-3.0 CONDITIONS NOT LISTED BELOW2.5-3.5 FOR PROSTHETIC HEART VALVE REPLACEMENT2.5-3.5 RECURRENT THROMBOSIS Laboratory - Chemistry and C hemistry - challengeon 12-05-2023 Albumin [Mass/Vol] 3.2 g/dL Low 3.4-5.0 [facility] ALP [Catalytic activity/Vol] 95 U/L 46-116 [facility] ALT [Catalytic activity/Vol] 28 U/L 16-63 [facility] AST [Catalytic activity/Vol] 21 U/L 15-37 [facility] Bilirubin [Mass/Vol] 0.7 mg/dL 0.2-1.0 [facility] Calcium [Mass/Vol] 8.8 mg/dL 8.5-10.1 [facility] Chloride [Moles/Vol] 100 mmol/L 98-107 [facility] CO2 [Moles/Vol] 28.2 mmol/L 21.0-32.0 [facility] Creatinine [Mass/Vol] 0.78 mg/dL 0.70-1.30 [facility] GFR/1.73 sq M.predicted MDRD (S/P/Bld) [Vol rate/Area] mL/min/{1.73_m2} >=60 [facility] Glucose [Mass/Vol] 124 mg/dL High 74-106 [facility] Potassium [Moles/Vol] 4.1 mmol/L 3.5-5.1 [facility] Protein [Mass/Vol] 6.8 g/dL 6.4-8.2 [facility] Sodium [Moles/Vol] 135 mmol/L Low 136-145 [facility] Urea nitrogen [Mass/Vol] 14.0 mg/dL 7.0-18.0 [facility] Urea nitrogen/Creatinine [Mass ratio] 17.9 mg/mg [facility] Laboratory - Hematology and Cell countson 12-05-2023 ESR (Bld) [Velocity] 46 mm/h High <=20 [facility] HbA1c (Bld) [Mass fraction] 6.0 % 4.5-6.2 [facility] Comment on above: ADA RECOMMENDED LIMI T 4.0 - 6.0ADA THERAPEUTIC TARGET < 7.0ACTION SUGGESTED> 7.0 Immature granulocytes/100 WBC (Bld) 0.2 % 0.0-0.5 [facility] Leukocytes [#/volume] correc jossue for nucleated erythrocytes in Blood by Automated counon 12-05-2023 WBC corrected for nucl RBC Auto (Bld) [#/Vol] 6.6 10 3/uL 4.0-11.0 [facility] Lymphocytes Auto (Bld) [#/Vo l]on 12-05-2023 Lymphocytes (Bld) [#/Vol] 1.4 10 3/uL 1.2-3.8 [facility] Lymphocytes/100 WBC Auto (Bl d)on 12-05-2023 Lymphocytes/100 WBC (Bld) 21.3 % 20.5-60.0 [facility] MCH Auto (RBC) [Entitic mass ]on 12-05-2023 MCH (RBC) [Entitic mass] 29.8 pg 25.9-34.0 [facility] MCHC Auto (RBC) [Mass/Vol]on 12-05-2023 MCHC (RBC) [Mass/Vol] 32.6 g/dL 29.9-35.2 [facility] MCV Auto (RBC) [Entitic vol] on 12-05-2023 MCV (RBC) [Entitic vol] 91.4 fL 80.0-94.0 [facility] Monocytes Auto (Bld) [#/Vol] on 12-05-2023 Monocytes (Bld) [#/Vol] 0.5 10 3/uL 0.3-0.8 [facility] Monocytes/100 WBC Auto (Bld) on 12-05-2023 Monocytes/100 WBC (Bld) 8.1 % 1.7-12.0 [facility] Neutrophils Auto (Bld) [#/Vo l]on 12-05-2023 Neutrophils (Bld) [#/Vol] 4.5 10 3/uL 1.4-6.5 [facility] Neutrophils/100 WBC Auto (Bl d)on 12-05-2023 Neutrophils/100 WBC (Bld) 68.1 % 43.0-75.0 [facility] No Panel InformationOrdered By: Alix Mims on 12-05-2023 Blood Culture 2 [facility] Blood Culture 1 [facility] No Panel Informationon 12-04 C-Reactive Protein, Quantitative <0.50 mg/dL <=0.50 [facility] Eosinophils # (Auto) 0.1 10 3/uL 0.0-0.7 [facility] Immature Granulocyte # (Auto) 0.01 10 3/uL 0.00-0.03 [facility] Platelet mean volume Auto (B ld) [Entitic vol]on 12-05-2023 Platelet mean volume (Bld) [Entitic vol] 9.9 fL 9.5-13.5 [facility] Platelets Auto (Bld) [#/Vol] on 12-05-2023 Platelets (Bld) [#/Vol] 216 10 3/uL 150-450 [facility] Prothrombin time (PT)on 11-12 PT Coag (PPP) [Time] 32.7 s High 9.0-11.6 [facility] RBC Auto (Bld) [#/Vol]on RBC (Bld) [#/Vol] 4.67 10 6/uL Low 4.70-6.10 [facility] Serum or plasma albumin/glob ulin mass ratioon 12-05-2023 Albumin/Globulin [Mass ratio] 0.9 {ratio} [facility] Serum or plasma anion gap de terminationon 12-05-2023 Anion gap [Moles/Vol] 10.9 mmol/L [facility] CNPNon 11-15-2023 CNPN Telephone (PRESLEY) JORGE DAVIS ([id number]) 1945 [place] Date Time Provider Department 11/15/23 RUBEN DENTON During your visit today, we recorded the following information about you: Bryan Dwyer 11/15/2023 2:37 PM Signed Documentation scanned into EP outside database Scanned INR results into epic Allergies As of Date: 11/15/2023 (No Known [...] Atrial fibrillation (HCC) [I48.91] 07/08/2014 Atherosclerosis [place] coronary artery of na*07/10/2015 Diabetes mellitus type 2, controlled, without c*07/10/2015 Atrial fibrillation, persistent (HCC) [I48.19] 07/22/2015 Paroxysmal atrial fibrillation (HCC) [I48.0] 12/04/2015 Paroxysmal atrial flutter (HCC) [I48.92] 05/30/2018 Obesity, Class III, BMI >= 40 [E66.01] 10/23/2019 Chronic diastolic heart failure (HCC) [I50.32] 06/05/2023 Mixed hyperlipidemia [E78.2] 06/05/2023 Encounter Status:Closed by BRYAN DWYER on 11/15/23 [facility] Scooter 09-19-2023 JOSE Telephone (CARDMN) RYANJORGE W ([id number]) 1945 [place] [place] Date Time Provider Department 09/19/23 RUBEN DENTON During your visit today, we recorded the following information about you: Bryan Dwyer 09/19/2023 3:52 PM Signed Documentation scanned into EP outside database Scanned INR results into epic Allergies As of Date: 09/19/2023 (No Known Allergies) Date Reviewed: 07/04/2023 Reviewed by: Delilah Novoa LPN - Fully Assessed Reason for Visit: Received Outside Medical Records [[id number]] Prescriptions as of 09/19/2023 - warfarin (COUMADIN) [...] Atrial fibrillation (HCC) [I48.91] 07/08/2014 Atherosclerosis [place] coronary artery of na*07/10/2015 Diabetes mellitus type 2, controlled, without c*07/10/2015 Atrial fibrillation, persistent (HCC) [I48.19] 07/22/2015 Paroxysmal atrial fibrillation (HCC) [I48.0] 12/04/2015 Paroxysmal atrial flutter (HCC) [I48.92] 05/30/2018 Obesity, Class III, BMI >= 40 [E66.01] 10/23/2019 Chronic diastolic heart failure (HCC) [I50.32] 06/05/2023 Mixed hyperlipidemia [E78.2] 06/05/2023 Encounter Status:Closed by [facility]AN [facility]ER [facility] Tele[facility] (CARDJOSE MIGUEL) JORGE DAVIS ([id number]) 1945 [place] Date Time Provider Department 08/22/23 RUBEN DENTON During your visit today, we recorded the following information about you: Bryan Dwyer 08/22/2023 4:53 PM Signed Documentation scanned into EP outside database Scanned INR results into [facility] Allergies As of Date: 08/22/2023 (No Known Allergies) Date Reviewed: 07/04/2023 Reviewed by: Delilah Novoa LPN - Fully Assessed Reason for Visit: Received Outside Medical Records [[id number]] Prescriptions as of 08/22/2023 - warfarin (COUMADIN) [...] Atrial fibrillation (HCC) [I48.91] 07/08/2014 Atherosclerosis [place] coronary artery of na*07/10/2015 Diabetes mellitus type 2, controlled, without c*07/10/2015 Atrial fibrillation, persistent (HCC) [I48.19] 07/22/2015 Paroxysmal atrial fibrillation (HCC) [I48.0] 12/04/2015 Paroxysmal atrial flutter (HCC) [I48.92] 05/30/2018 Obesity, Class III, BMI >= 40 [E66.01] 10/23/2019 Chronic diastolic heart failure (HCC) [I50.32] 06/05/2023 Mixed hyperlipidemia [E78.2] 06/05/2023 Encounter Status:Closed by BRYAN DWYER on 08/22/23 [facility] CNPN Telephone (CARDMN) JORGE DAVIS ([id number]) 1945 [facility]* Date Time Provider Department 07/25/23 RUBEN DENTON During your visit today, we recorded the following information about you: Bryan Dwyer 07/25/2023 10:22 AM Signed Documentation scanned into EP outside database Scanned INR results into Epic Allergies As of Date: 07/25/2023 (No Known Allergies) Date Reviewed: 07/04/2023 Reviewed by: Delilah Novoa LPN - Fully Assessed Reason for Visit: Received Outside Medical Records [[id number]] Cmt: INR Prescriptions as of 07/25/2023 - [...] Atrial fibrillation (HCC) [I48.91] 07/08/2014 Atherosclerosis [place] coronary artery of na*07/10/2015 Diabetes mellitus type 2, controlled, without c*07/10/2015 Atrial fibrillation, persistent (HCC) [I48.19] 07/22/2015 Paroxysmal atrial fibrillation (HCC) [I48.0] 12/04/2015 Paroxysmal atrial flutter (HCC) [I48.92] 05/30/2018 Obesity, Class III, BMI >= 40 [E66.01] 10/23/2019 Chronic diastolic heart failure (HCC) [I50.32] 06/05/2023 Mixed hyperlipidemia [E78.2] 06/05/2023 Encounter Status:Closed by BRYAN DWYER on 07/25/23 [facility] Luis 07-04-2023 CNOV Office Visit (CAEPAV ) JORGE DAVIS ([id number]) 1945 [place] Date Time Provider Department 07/04/23 10:00 [...] sooner with any questions or concerns BARRETT Villeda, BARRETT Sesay 07/04/2023 10:19 AM Signed [facility] Department of Cardiovascular Medicine SECTION OF CARDIAC PACING and ELECTROPHYSIOLOGY OUTPATIENT VISIT DATE July 04, 2023 OUTPATIENT VISIT TYPE ESTABLISHED PRIMARY CARE PHYSICIAN: Declan Swanson (Peggy) [address] [place] [address] CHIEF COMPLAINT: Cardiology follow up HISTORY OF [...] MICRO DRILLING 2005 PAST SURGICAL HISTORY OF 1975 Fistulotomy PAST SURGICAL HISTORY OF Partial Medial [...] Muscle or joint pain, stiffness, Joint swelling NEUROLOGIC/PSYCHIATRI C: Negative for: Weakness, Paralysis, Numbness, Tingling, Tremor, Nervousness or anxiety, Depressed mood, Memory loss SKIN: Negative for: Rash, Itching HEMATOLOGICAL/LYMPHAT IC: Negative for: Easy bruising, Easy bleeding ENDOCRINE: Negative for: Heat or Cold Intole (more content not included)... Normal [facility] RYANJORGE W ([id number]) 1945 [place]* Date Time Provider Department 06/27/23 RUBEN DENTON During your visit today, we recorded the following information about you: Bryan Dwyer 06/27/2023 2:56 PM Signed Documentation scanned into EP outside database Scanned INR results into epic Allergies As of Date: 06/27/2023 (No Known Allergies) Date Reviewed: 06/05/2023 Reviewed by: Venkat Evans V, MD - Fully Assessed Reason for Visit: Received Outside Medical Records [[id number]] Prescriptions as of 06/27/2023 - warfarin (COUMADIN) [...] Atrial fibrillation (HCC) [I48.91] 07/08/2014 Atherosclerosis [place] coronary artery of na*07/10/2015 Diabetes mellitus type 2, controlled, without c*07/10/2015 Atrial fibrillation, persistent (HCC) [I48.19] 07/22/2015 Paroxysmal atrial fibrillation (HCC) [I48.0] 12/04/2015 Paroxysmal atrial flutter (HCC) [I48.92] 05/30/2018 Obesity, Class III, BMI >= 40 [E66.01] 10/23/2019 Chronic diastolic heart failure (HCC) [I50.32] 06/05/2023 Mixed hyperlipidemia [E78.2] 06/05/2023 Encounter Status:Closed by BRYAN DWYER on 06/27/23 [facility] CNOVon 06-05-2023 CNOV Office Visit (CARDAV ) JORGE DAVIS ([id number]) 1945 [facility]* Date Time Provider Department 06/05/23 1:40 PM VENKAT EVANS During your visit today, we recorded the following information about you: Pulse Blood pressure Weight 74/minute 124/78 120.2 kg Venkat Evans V, MD 06/05/2023 2:25 PM Signed Referring Physician: No referring provider defined for this encounter. Primary Care Physician: DO Jorge Ungeron is a 78 year old male that [...] hyperlipidemia [E78.2] Order(s):ECG COMPLETE [ECG01] Order #: [id number]. #:[id number]--XFSYi kg ECHO [497370] Order #: [id number]: 1 FUTURE Prescriptions as of 06/05/2023 - warfarin (COUMADIN) 1 mg tablet Take 4 mg by mouth once daily. - metFORMIN (GLUCOPHAGE) 500 mg t (more content not included)... Normal [facility] [id number] 06-05-2023 ECG01 Ventricular Rate : 6 8 BPM QRS Duration : 108 ms Q-T Interval : 466 ms QTC Calculation(Bazett) : 495 ms Calculated R [place] : -27 degrees Calculated T [place] : 53 degrees ATRIAL FIBRILLATION INCOMPLETE RIGHT BUNDLE BRANCH BLOCK ABNORMAL ECG Confirmed by KATRINA KELLEY MD ([id number]) on 06/07/2023 9:44:30 AM NAME : JORGE DAVIS PID : [id number] : 1945 Gender : Male Race : [...] : , Acquired by : Ale lema [facility] Scooter 05-30-2023 CNPN Telephone (CARDMN) JORGE DAVIS ([id number]) [address] Date Time Provider Department 05/30/23 RUBEN DENTON CARDMN During your visit today, we recorded the following information about you: Bryan Dwyer 05/30/2023 9:24 AM Signed Documentation scanned into EP outside database Scanned into [employer] Allergies As of Date: 05/30/2023 (No Known Allergies) Date Reviewed: 06/24/2022 Reviewed by: Ruben Denton MD - Fully Assessed Reason for Visit: Received Outside Medical Records [5974] Cmt: INR Prescriptions as of 05/30/2023 - [...] Atrial fibrillation (HCC) [I48.91] 07/08/2014 Atherosclerosis [place] coronary artery of na*07/10/2015 Diabetes mellitus type 2, controlled, without c*07/10/2015 Atrial fibrillation, persistent (HCC) [I48.19] 07/22/2015 Paroxysmal atrial fibrillation (HCC) [I48.0] 12/04/2015 Paroxysmal atrial flutter (HCC) [I48.92] 05/30/2018 Obesity, Class III, BMI >= 40 [E66.01] 10/23/2019 Encounter Status:Closed by BRYAN WDYER on 05/30/23 [facility] 05-02-2023 CNPN Telephone (CARDMN) JORGE DAVIS ([id number]) 1945 [facility]* Date Time Provider Department 05/02/23 RUBEN DENTONHI During your visit today, we recorded the following information about you: Bryan Dwyer 05/02/2023 3:27 PM Signed Documentation scanned into EP outside database Allergies As of Date: 05/02/2023 (No Known Allergies) Date Reviewed: 06/24/2022 Reviewed by: Ruben Denton MD - Fully Assessed Reason for Visit: Received Outside Medical Records [5466] Cmt: INR results Prescriptions as of 05/02/2023 [...] Atrial fibrillation (HCC) [I48.91] 07/08/2014 Atherosclerosis [place] coronary artery of na*07/10/2015 Diabetes mellitus type 2, controlled, without c*07/10/2015 Atrial fibrillation, persistent (HCC) [I48.19] 07/22/2015 Paroxysmal atrial fibrillation (HCC) [I48.0] 12/04/2015 Paroxysmal atrial flutter (HCC) [I48.92] 05/30/2018 Obesity, Class III, BMI >= 40 [E66.01] 10/23/2019 Encounter Status:Closed by BRYAN DWYER on 05/02/23 [facility] CNPScarlett 04-06-2023 CNPN Telephone (CARDMN) JORGE DAVIS ([id number]) 1945 [place] [facility] Date Time Provider Department 04/06/23 RUBEN DENTON During your visit today, we recorded the following information about you: Suman Garvin 04/06/2023 6:45 AM Signed Outside medical records (INR report 04/04/2023) scanned into [employer] and [employer]. Allergies As of Date: 04/06/2023 (No Known [...] Atrial fibrillation (HCC) [I48.91] 07/08/2014 Atherosclerosis [place] coronary artery of na*07/10/2015 Diabetes mellitus type 2, controlled, without c*07/10/2015 Atrial fibrillation, persistent (HCC) [I48.19] 07/22/2015 Paroxysmal atrial fibrillation (HCC) [I48.0] 12/04/2015 Paroxysmal atrial flutter (HCC) [I48.92] 05/30/2018 Obesity, Class III, BMI >= 40 [E66.01] 10/23/2019 Encounter Status:Closed by SUMAN GARVIN on 05/18/23 [facility] 02-07-2023 TATAN Telephone (PRESLEY) JORGE DAVIS ([id number]) 1945 [place]* Date Time Provider Department 02/07/23 RUBEN DENTON During your visit today, we recorded the following information about you: Suman Garvin 02/07/2023 9:32 AM Signed Outside medical records (INR report 02/07/2023) scanned into [employer] and shared EP drive. Allergies As of Date: 02/07/2023 (No Known Allergies) Date Reviewed: 06/24/2022 Reviewed by: Ruben Denton MD - Fully Assessed Reason for Visit: Received Outside Medical Records [3576] Cmt: INR Report 02/07/2023 Prescriptions as of [...] Atrial fibrillation (HCC) [I48.91] 07/08/2014 Atherosclerosis [place] coronary artery of na*07/10/2015 Diabetes mellitus type 2, controlled, without c*07/10/2015 Atrial fibrillation, persistent (HCC) [I48.19] 07/22/2015 Paroxysmal atrial fibrillation (HCC) [I48.0] 12/04/2015 Paroxysmal atrial flutter (HCC) [I48.92] 05/30/2018 Obesity, Class III, BMI >= 40 [E66.01] 10/23/2019 Encounter Status:Closed by SUMAN GARVIN on 02/07/23 [facility] 01-11-2023 CNPN Telephone (CARDMN) JORGE DAVIS ([id number]) 1945 [place] Date Time Provider Department 01/11/23 RUBEN DENTON During your visit today, we recorded the following information about you: Suman Garvin 01/11/2023 7:26 AM Signed Outside medical records (INR Report 01/10/2023) scanned into [employer]. Allergies As of Date: 01/11/2023 (No Known Allergies) Date Reviewed: 06/24/2022 Reviewed by: Ruben Denton MD - Fully Assessed Reason for Visit: Received Outside Medical Records [3576] Cmt: INR Report 01/10/2023 Prescriptions as of [...] Atrial fibrillation (HCC) [I48.91] 07/08/2014 Atherosclerosis [place] coronary artery of na*07/10/2015 Diabetes mellitus type 2, controlled, without c*07/10/2015 Atrial fibrillation, persistent (HCC) [I48.19] 07/22/2015 Paroxysmal atrial fibrillation (HCC) [I48.0] 12/04/2015 Paroxysmal atrial flutter (HCC) [I48.92] 05/30/2018 Obesity, Class III, BMI >= 40 [E66.01] 10/23/2019 Encounter Status:Closed by SUMAN GARVIN on 05/17/23 [facility] 01-05-2023 CNPN Telephone (CARDMN) JORGE DAVIS ([id number]) 1945 [facility] Date Time Provider Department 01/05/23 RUBEN DENTONHI During your visit today, we recorded the following information about you: Suman Garvin 01/05/2023 6:48 AM Signed Outside medical records (INR report 12/27/2022) scanned into [employer]. Allergies As of Date: 01/05/2023 (No Known Allergies) Date Reviewed: 06/24/2022 Reviewed by: Ruben Denton MD - Fully Assessed Reason for Visit: Received Outside Medical Records [3573] Cmt: INR Report 12/27/2022 Prescriptions as of [...] Atrial fibrillation (HCC) [I48.91] 07/08/2014 Atherosclerosis [place] coronary artery of na*07/10/2015 Diabetes mellitus type 2, controlled, without c*07/10/2015 Atrial fibrillation, persistent (HCC) [I48.19] 07/22/2015 Paroxysmal atrial fibrillation (HCC) [I48.0] 12/04/2015 Paroxysmal atrial flutter (HCC) [I48.92] 05/30/2018 Obesity, Class III, BMI >= 40 [E66.01] 10/23/2019 Encounter Status:Closed by SUMAN GARVIN on 01/05/23 [facility] JORGE DAVIS ([id number]) 1945 [place]* Date Time Provider Department 12/23/22 RUBEN DENTON During your visit today, we recorded the following information about you: Bobbi Sahu 12/23/2022 7:48 AM Signed Patient records received via electronic fax. Uploaded to [email or web address]. INR 12.20.22 Bobbi Sahu Allergies As of Date: 12/23/2022 (No Known Allergies) Date Reviewed: 06/24/2022 Reviewed by: Ruben Denton MD - Fully Assessed Reason for Visit: Received Outside Medical Records [[id number]] Prescriptions as of 12/23/2022 - ACETAMINOPHEN (TYLENOL [...] Atrial fibrillation (HCC) [I48.91] 07/08/2014 Atherosclerosis [place] coronary artery of na*07/10/2015 Diabetes mellitus type 2, controlled, without c*07/10/2015 Atrial fibrillation, persistent (HCC) [I48.19] 07/22/2015 Paroxysmal atrial fibrillation (HCC) [I48.0] 12/04/2015 Paroxysmal atrial flutter (HCC) [I48.92] 05/30/2018 Obesity, Class III, BMI >= 40 [E66.01] 10/23/2019 Encounter Status:Closed by BOBBI SAHU on 12/23/22 Normal [facility] XR pre/post mri xrayon 11-24 XR pre/post mri xray [facility] [place] [address] MRI Report Signed Patient: Jorge Davis MR#: [id number] 14 : 1945 Acct:[id number] Age/Sex: 77 / M ADM Date: 11/24/22 Loc: [facility] Room: Type: [facility] CLI Attending Dr: Ruben Celis MD Copies to: Ruben Celis MD Ordering Provider: Ruben Celis MD Date of Service: 11/24/22 MR/MR lumbar spine wo con: Other spondylosis with radiculopathy, lumbar region ([id number]) XR/XR pre/post mri xray: LUMBAR MRI MR [...] Ellis Humphreys M.D.11/24/2022 6:03 PM Dictation Location: [place] [address] Transcribed By: [facility] 11/24/221802 Dictated By: Ellis Humphreys II, MD 11/24/22 1754 Signed By: 11/24/221802 Normal [facility] XR knee BI 2Von 10-12-2022 XR knee BI 2V [facility] [place] [address] XRay Report Signed Patient: Jorge Davis MR#: [id number] 14 : 1945 Acct:[id number] Age/Sex: 77 / M ADM Date: 10/12/22 Loc: [facility] Room: Type: [facility] Attending Dr: Bruce Shine II, MD Copies to: Bruce Shine MD Ordering Provider: Bruce Shine MD Date of Service: 10/12/22 XR/XR hip BI w PEL1V: Pain in right hip;Pain in left hip ([id number]) XR/XR knee BI 2V: PAIN ADULT PELVIS [...] COMPLICATION. Impression dictated by: Jose Galvan Jr., D.ORita10/12/2022 12:41 PM Dictation Location: [facility]--12 Transcribed By: [facility] 10/12/22 1241 Dictated By: Jose Galvan Jr, DO 10/12/22 1239 Signed By: 10/12/22 1241 [facility] XR knee BI 2V [facility] Other XR knee BI 2V [facility] Main [facility] Other XR knee BI 2V [address] [place] [address] [facility] Other XR knee BI 2V [address] [facility] Other XR knee BI 2V XRay Report [employer] Other XR knee BI 2V Signed [facility] Other XR knee BI 2V Patient: Corina Davis MR#: [id number] [facility] Other XR knee BI 2V 14 [facility] Other XR knee BI 2V : 1945 Acct:[id number] [employer] Other XR knee BI 2V Age/Sex: 77 / M ADM Date: 10/12/22 [employer] Other XR knee BI 2V Loc: [facility] Room: Type : [facility] [employer] Other XR knee BI 2V Attending Dr: Bruce Shine II, MD [employer] Other XR knee BI 2V Copies to: Bruce Shine MD [employer] Other XR knee BI 2V Ordering Provider: Bruce Shine MD [employer] Other XR knee BI 2V Date of Service: 10/12/22 [employer] Other XR knee BI 2V XR/XR hip BI w PEL1V: Pain in right hip;Pain in left hip [employer] Other XR knee BI 2V ([id number]) XR/XR knee BI 2V: PAIN [employer] Other XR knee BI 2V ADULT PELVIS WITH BILATERAL HIPS - one view each, bilateral knee series 4 views each [employer] Other XR knee BI 2V CLINICAL HISTORY: Bilateral hip/groin pain for years. Bilateral generalized knee pain for years. [employer] Other XR knee BI 2V COMPARISON: None [employer] Other XR knee BI 2V FINDINGS: [employer] Other XR knee BI 2V Hip series: Moderate degenerative changes of both hips without acute bony process. Degenerative [employer] Other XR knee BI 2V change also noted involving the visualized lower lumbar spine, SI joints and pubic symphysis. [employer] Other XR knee BI 2V Bilateral knee series: Bilateral knee prostheses are in place without radiographic complication. No [employer] Other XR knee BI 2V acute bony process i s seen. Vascular calcifications. [employer] Other XR knee BI 2V XR/XR hip BI w PEL1V [employer] Other XR knee BI 2V IMPRESSION: [facility] Other XR knee BI 2V MODERATE DEGENERATIV E CHANGES OF BOTH HIPS WITHOUT ACUTE BONY PROCESS. [employer] Other XR knee BI 2V BILATERAL KNEE PROSTHESES WITHOUT RADIOGRAPHIC COMPLICATION. [employer] Other XR knee BI 2V Impression dictated by: Jose Galvan Jr., D.O.10/12/2022 12:41 PM [employer] Other XR knee BI 2V Dictation Location: [place] [address] [employer] Other XR knee BI 2V Transcribed By: P[facility] 10/12/22 124 [employer] Other XR knee BI 2V Dictated By: Jose Galvan Jr DO 10/12/22 [facility] [employer] Other XR knee BI 2V Signed By: [employer] Other XR knee BI 2V 10/12/22 1241 [employer] Other A1C with Estimated Average G luon 05-16-2022 A1C with Estimated Average Glu [employer] Other GLYCOHEMOGLOBIN A1Con 2022 ADA RECOMMENDATION SEE BELOW Normal [facility] Comment on above: Result Comment: ADA RECOMMENDED LIMIT 4.0 - 6.0 ADA THERAPEUTIC TARGET < 7.0 ACTION SUGGESTED > 7.0 Performed By: #### A 1C #### [facility] [address] [place] [address] Dr. Edna Machado Glucose [Mass/Vol] 131 mg/dL Normal [facility] Comment on above: Performed By: #### A 1C #### [facility] [address] [place] [address] [address] Edna Machado HbA1c (Bld) [Mass fraction] 6.2 % Normal 4.5-6.2 [facility] Comment on above: Performed By: #### A 1C #### [facility] [address] [place] [address] CHEST WO CONon [...] GLENDA FENG Date: 2021-09-24 13:29 Normal [facility] CBC AUTO DIFFon 09-22-2021 BASO # 0.0 103/ul Normal 0.0-0.1 [facility] Comment on above: Performed By: #### C BC #### [facility] [address] [place] [address] Dr. Edna Machado Basophils/100 WBC (Bld) 0.5 % Normal 0.2-2.0 [facility] Comment on above: Performed By: #### C BC #### [facility] [address] [place] [address] Dr. Edna Machado EO # 0.1 103/ul Normal 0.0-0.7 [facility] Comment on above: Performed By: #### C BC #### [facility] [address] [place] [address] Dr. Edna Machado Eosinophils/100 WBC (Bld) 1.4 % Normal 0.9-7.0 [facility] Comment on above: Performed By: #### C BC #### [facility] [address] [place] [address] Dr. Edna Machado Erythrocyte distribution width (RBC) [Ratio] 14.6 % Normal 11.0-15.0 [facility] Comment on above: Performed By: #### C BC #### [facility] [address] [place] [address] Dr. Edna Machado Hematocrit (Bld) [Volume fraction] 46.5 % Normal 42.0-54.0 [facility] Comment on above: Performed By: #### C BC #### [facility] [address] [place] [address] Dr. Edna Machado Hemoglobin (Bld) [Mass/Vol] 15.0 g/dL Normal 14.0-18.0 [facility] Comment on above: Performed By: #### C BC #### [facility] [address] [place] [address] Dr. Edna Machado IG # 0.01 10e3/ul Normal 0.00-0.03 [facility] Comment on above: Performed By: #### C BC #### [facility] [address] [place] [address] Dr. Edna Machado IG % 0.1 % Normal 0.0-0.5 [facility] Comment on above: Performed By: #### C BC #### [facility] [address] [place] [address] Dr. Edna Machado LYMPH # 2.1 103/ul Normal 1.2-3.8 [facility] Comment on above: Performed By: #### C BC #### [facility] [address] [place] [address] Dr. Edna Machado Lymphocytes/100 WBC (Bld) 27.8 % Normal 20.5-60.0 [facility] Comment on above: Performed By: #### C BC #### [facility] [address] [place] [address] Dr. Edna Machado MANUAL DIFF REQ NO Normal [facility] Comment on above: Performed By: #### C BC #### [facility] [address] [place] [address] Dr. Edna Machado MCH (RBC) [Entitic mass] 29.0 pg Normal 25.9-34.0 [facility] Comment on above: Performed By: #### C BC #### [facility] [address] [place] [address] Dr. Edna Machado MCHC (RBC) [Mass/Vol] 32.3 g/dL Normal 29.9-35.2 [facility] Comment on above: Performed By: #### C BC #### [facility] [address] [place] [address] Dr. Edna Machado MCV (RBC) [Entitic vol] 89.8 fL Normal 80.0-94.0 [facility] Comment on above: Performed By: #### C BC #### [facility] [address] [place] [address] Dr. Edna Machado MONO # 0.6 103/ul Normal 0.3-0.8 [facility] Comment on above: Performed By: #### C BC #### [facility] [address] [place] [address] Dr. Edna Machado Monocytes/100 WBC (Bld) 8.3 % Normal 1.7-12.0 [facility] Comment on above: Performed By: #### C BC #### [facility] [address] [address] [address] Edna Machado NEUT # 4.6 103/ul Normal 1.4-6.5 [facility] Comment on above: Performed By: #### C BC #### [facility] [address] [address] [address] Edna Machado Neutrophils/100 WBC (Bld) 61.9 % Normal 43.0-75.0 [facility] Comment on above: Performed By: #### C BC #### [facility] [address] [address] [address] Edna Machado Platelet mean volume (Bld) [Entitic vol] 10.0 fL Normal 9.5-13.5 [facility] Comment on above: Performed By: #### C BC #### [facility] [address] [place] [address] Dr. Edna Machado PLT 218 103/ul Normal 150-450 [facility] Comment on above: Performed By: #### C BC #### [facility] [address] [place] [address] Dr. Edna Machado RBC 5.18 106/ul Normal 4.70-6.10 [facility] Comment on above: Performed By: #### C BC #### [facility] [address] [address] [address] Edna Machado WBC 7.4 103/ul Normal 4.0-11.0 [facility] Comment on above: Performed By: #### C BC #### [facility] [address] [place] [address] Dr. Edna Machado GLYCOHEMOGLOBIN A1Con 2021 ADA RECOMMENDATION SEE BELOW Normal [facility] Comment on above: Result Comment: ADA RECOMMENDED LIMIT 4.0 - 6.0 ADA THERAPEUTIC TARGET < 7.0 ACTION SUGGESTED > 7.0 Performed By: #### A 1C #### [facility] [address] [place] [address] Dr. Edna Machado Glucose [Mass/Vol] 123 mg/dL Normal [facility] Comment on above: Performed By: #### A 1C #### [facility] [address] [address] [address] Edna Machado HbA1c (Bld) [Mass fraction] 5.9 % Normal 4.5-6.2 [facility] Comment on above: Performed By: #### A 1C #### [facility] [address] [place] [address] Dr. Edna Machado LIPID PROFILEon 09-22-2021 CHOL-HDL RATIO NORM SEE BELOW Normal [facility] Comment on above: Result Comment: 3.3 - 4.4 LOW RISK 4.4 - 7.1 AVERAGE RISK 7.1 - 11.0 MODERATE RISK >11.0 HIGH RISK Performed By: #### L IPID, CMP #### [facility] [address] [place] [address] Dr. Edna Machado Cholesterol [Mass/Vol] 132 mg/dL Normal <=200 [facility] Comment on above: Performed By: #### L IPID, CMP #### [facility] [address] [place] [address] Dr. Edna Machado Cholesterol in HDL [Mass/Vol] 43 mg/dL Normal 40-60 [facility] Comment on above: Performed By: #### L IPID, CMP #### [facility] [address] [place] [address] Dr. Edna Machado Cholesterol in LDL [Mass/Vol] 71.0 mg/dL Normal [facility] Comment on above: Performed By: #### L IPID, CMP #### [facility] [address] [address] [address] Edna Machado Cholesterol.total/Cho lesterol in HDL [Mass ratio] 3.1 {ratio} Normal [facility] Comment on above: Performed By: #### L IPID, CMP #### [facility] [address] [address] [address] Edna Machado HDL NORMAL > or = 60 mg/dl - LO W CARDIOVASCULAR RISK <40 mg/dl - HIGH CARDIOVASCULAR RISK Normal [facility] Comment on above: Performed By: #### L IPID, CMP #### [facility] [address] [place] [address] Dr. Edna Machado LDL CALC NORMAL SEE BELOW Normal [facility] Comment on above: Result Comment: <100 mg/dl OPTIMAL 100 - 129 mg/dl NEAR OR ABOVE OPTIMAL 130 - 159 mg/dl BORDERLINE HIGH 160 - 189 mg/dl HIGH >190 mg/dl VERY HIGH Performed By: #### L IPID, CMP #### [facility] [address] [address] [address] Edna Machado Triglyceride [Mass/Vol] 90 mg/dL Normal <=150 [facility] Comment on above: Performed By: #### L IPID, CMP #### [facility] [address] [address] [address] Edna Machado VLDL CALC 18.0 mg/dL Normal [facility] Comment on above: Performed By: #### L IPID, CMP #### [facility] [address] [place] [address] Dr. Edna Machado PROF 14(COMP METB)on 022 Albumin [Mass/Vol] 3.5 g/dL Normal 3.4-5.0 [facility] Comment on above: Performed By: #### L IPID, CMP #### [facility] [address] [address] [address] Edna Machado Albumin/Globulin [Mass ratio] 0.9 {ratio} Normal [facility] Comment on above: Performed By: #### L IPID, CMP #### [facility] [address] [address] [address] Edna Machado ALP [Catalytic activity/Vol] 83 U/L Normal 46-116 [facility] Comment on above: Performed By: #### L IPID, CMP #### [facility] [address] [address] [address] Edna Machado ALT [Catalytic activity/Vol] 22 U/L Normal 16-63 [facility] Comment on above: Performed By: #### L IPID, CMP #### [facility] [address] [address] [address] Edna Machado Anion gap [Moles/Vol] 9.4 mmol/L Normal [facility] Comment on above: Performed By: #### L IPID, CMP #### [facility] [address] [address] [address] Edna Machado AST [Catalytic activity/Vol] 13 U/L Critically low 15-37 [facility] Comment on above: Performed By: #### L IPID, CMP #### [facility] [address] [address] [address] Edna Machado Bilirubin [Mass/Vol] 0.6 mg/dL Normal 0.2-1.0 [facility] Comment on above: Performed By: #### L IPID, CMP #### [facility] [address] [address] [address] Edna Machado Calcium [Mass/Vol] 8.7 mg/dL Normal 8.5-10.1 [facility] Comment on above: Performed By: #### L IPID, CMP #### [facility] [address] [place] [address] Dr. Edna Machado Chloride [Moles/Vol] 103 mmol/L Normal 98-107 [facility] Comment on above: Performed By: #### L IPID, CMP #### [facility] [address] [address] [address] Edna Machado CO2 [Moles/Vol] 28.7 mmol/L Normal 21.0-32.0 [facility] Comment on above: Performed By: #### L IPID, CMP #### [facility] [address] [place] [address] Dr. Edna Machado Creatinine [Mass/Vol] 0.83 mg/dL Normal 0.70-1.30 [facility] Comment on above: Performed By: #### L IPID, CMP #### [facility] [address] [address] [address] Edna Machado EGFR-AF [place] >60 Normal >=60 [facility] Comment on above: Performed By: #### L IPID, CMP #### [facility] [address] [address] [address] Edna Machado EGFR-NON AF [place] >60 Normal >=60 [facility] Comment on above: Performed By: #### L IPID, CMP #### [facility] [address] [address] [address] Edna Machado Globulin (S) [Mass/Vol] 3.7 g/dL Normal [facility] Comment on above: Performed By: #### L IPID, CMP #### [facility] [address] [address] [address] Edna Machado Glucose [Mass/Vol] 106 mg/dL Normal 74-106 [facility] Comment on above: Performed By: #### L IPID, CMP #### [facility] [address] [address] [address] Edna Machado Potassium [Moles/Vol] 4.1 mmol/L Normal 3.5-5.1 [facility] Comment on above: Performed By: #### L IPID, CMP #### [facility] [address] [place] [address] Dr. Edna Machado Protein [Mass/Vol] 7.2 g/dL Normal 6.4-8.2 [facility] Comment on above: Performed By: #### L IPID, CMP #### [facility] [address] [address] [address] Edna Machado Sodium [Moles/Vol] 137 mmol/L Normal 136-145 [facility] Comment on above: Performed By: #### L IPID, CMP #### [facility] [address] [address] [address] Edna Machado Urea nitrogen [Mass/Vol] 11.0 mg/dL Normal 7.0-18.0 [facility] Comment on above: Performed By: #### L IPID, CMP #### [facility] [address] [address] [address] Edna Machado Urea nitrogen/Creatinine [Mass ratio] 13.3 mg/mg Normal [facility] Comment on above: Performed By: #### L IPID, CMP #### [facility] [address] [place] [address] Dr. Edna Machado Ambulatory Clinical Summaryo n 02-28-2020 Ambulatory Clinical Summary {[id number] Ale Patel [facility] Patient Education 02-28-20 Patient Education Family Medicine [...] Document Reviewed: 11/02/2007 ExitCare? Patient Information ?2013 Rewalon. Ale [facility] Urology Office/Clinic Noteon 02-28-2020 Urology Office/Clinic Note [...] nicotine dependence) 5. 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) warfarin therapy I [...] Protein Urine Dipstick: Negative (02/28/20 08:57:00) Specific [place] Urine Dipstick: 1.020 (02/28/20 08:57:00) Urine Appearance Urine Dipstick: Clear (02/28/20 08:57:00) Urine Color Urine Dipstick: Yellow (02/28/20 08:57:00) Urobilinogen Urine Dipstick: Normal 0.2-1 EU/dl (02/28/20 08:57:00) pH Urine Dipstick: 5 (02/28/20 08:57:00) Normal [facility] Comment on above: Result Comment: Elec tronically Signed By: David DANIEL MD\.br\Date and Time Signed: 02/28/20 09:34 EST\.br\Electronically Co-Signed By: Lou Chavez MA\.br\Date and Time Co-Signed: 02/28/20 09:31 EST Reminderson 01-21-2020 Reminders - From: Mandy Bashir To: - Clinical; Sent: 01/08/2020 09:45:38 EDT Show up: [...] renal US From: David DANIEL MD To: EU - Clinical; Sent: 01/20/2020 15:25:17 EST Show up: 01/20/2020 15:24:00 EST Subject: RE: renal US no stones. one cyst. no mass pw. Patient was notified of results.LG Normal [facility] RAD - Ultrasound Reporton RAD - Ultrasound Report [id number]#1. 00CD:127 Normal [facility] UroVysion Fish and Urine Cyt o ([facility])on 01-17-2020 UVFISH & UC Diagnosis Info [facility] Comment on above: Result Comment: A:Ur [...] on: 01/17/2020 07:53:07 Performed By: #### 1 [id number] ####[facility] [address] [place] [address] Coding Summary.on 01-08-2020 Coding Summary. CODING DATE: 01/08/[address] [facility] STATUS: Home (Routine DC) PAYOR: Medicare APC DESCRIPTION 5372 Level 2 Urology and Related Services ADMIT DX: REASON FOR VISIT DX: R31.0 Gross hematuria FINAL DX: PRINCIPAL: R31.0 Gross hematuria SECONDARY: N40.1 Benign prostatic hyperplasia with lower urinary tract symptoms R31.29 Other microscopic hematuria I10 Essential (primary) hypertension I25.10 Atherosclerotic heart disease of [place] coronary artery without angina pectoris E78.5 Hyperlipidemia, unspecified E11.9 Type 2 diabetes mellitus without complications J44.9 Chronic obstructive pulmonary disease, unspecified E66.01 Morbid (severe) obesity due to excess calories Z68.41 Body mass index [BMI]40.0-44.9, adult I49.9 Cardiac arrhythmia, unspecified Z79.01 penitentiary (current) use of anticoagulants 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 However, the narrative phrase printed from the coding software may appear abbreviated, or result in slightly different terminology. Coded By: Edwina Marie Date Saved: 01/08/2020 10:47 am [facility] Consent for Procedure/Surger yon 01-08-2020 Consent for Procedure/Surgery [id number]# 1.00CD:127 [facility] Discharge Instructionson Discharge Instructions [id number]# 1.00CD:127 [facility] History and Physicalon 01-07 History and Physical [id number]# 1.00CD:127 [facility] IntraOperative Documentson IntraOperative Documents [id number]# 1.00CD:127 [facility] Consent for Treatmenton 12-12 Consent for Treatment [id number]#1 .00CD:127 [facility] Main OR Intraoperative Recor don 01-07-2020 Main OR Intraoperative Record IntraOp Document Type FTURO Summary Primary Physician: David DANIEL MD Finalized Date/Time: 01/07/20 10:17:52 Pt. Name: RYANJORGE/Sex: 1945 Male Med Rec #: [id number] Physician: David DANIEL MD Financial #: [id number] Pt. Type: O Room/Bed: / Admit/Disch: 01/07/20 [...] Maday Bond Role Performed Surgeon - Primary Vehicle Cost Engineer - Primary Scrub - Primary Time In 01/07/20 10:00:00 01/07/20 10:00:00 01/07/20 10:00:00 Time Out 01/07/20 10:23:00 01/07/20 10:23:00 01/07/20 10:23:00 Procedure CYSTOSCOPY LOCAL(.) CYSTOSCOPY LOCAL(.) CYSTOSCOPY LOCAL(.) Comments Last Modified By: Harmony KILLIAN, JASWANTOR, Harmony KILLIAN, JASWANTOR, Harmony KILLIAN, [...] Met? Yes Last Modified By: Harmony KILLIAN, JASWANTOR, Ronda 01/07/20 10:16:08 Post-Care Text: The patient [...] MD, Verified (If Medication Participants Harmony KILLIAN, JASWANTOR, Applicable) Catherine Bond CST, Maday Time Out Complete 01/07/20 10:08:00 Allergies [...] GERMANIA Antunez RN, Ruthann 01/07/20 10:17 Normal [facility] Main OR Preoperative Recordo n 01-07-2020 Main OR Preoperative Record Holding Area Document Type FTURO Summary Primary Physician: David DANIEL MD Finalized Date/Time: 01/07/20 10:07:43 Pt. Name: JORGE DAVIS/Sex: 1945 Male Med Rec #: [id number] Physician: David DANIEL MD Financial #: [id number] Pt. Type: O Room/Bed: / Admit/Disch: 01/07/20 [...] Lens Implant, Jewelry Personal Items watch Limitations: [place] Comment: Complaints of Pain: No Skin Integrity Unable to Visualize Vitals - EU Blood Pressure 133/73 Pulse 70 bpm Respirations 18 br/min SPO2 Additional ELLY RN Reviewed Yes Specimens Collected Last Modified By: GERMANIA Antunez RN, Ruthann 01/07/20 10:07:41 General Comments: Temp. 36.3 Finalized By: GERMANIA Antunez RN, Ruthann Document Signatures Signed By: Emeli Arguello LPN 01/07/20 09:37 GERMANIA Antunez RN, Ruthann 01/07/20 10:07 Normal [facility] Operative Reporton 0 Operative Report Patient: JORGE DAVIS Age: 74 years Sex: Male : 1945 Associated Diagnoses: None Author: David DANIEL MD Procedure Operative Information Details: Date/ Time: 01/07/2020 10:18:00. Pre-Op Dx: Gross Hematuria - R31.0. Post-Op Dx: Same. Anesthesia Type: Local. Procedure: Local Cystoscopy. Complications: None. Risks/Benefits/Inform ed Consent: Surgical risks, benefits, details of the [...] with antibiotic coverage, Follow up arranged. Normal [facility] Comment on above: Result Comment: Elec tronically [...] have a fever over 100 degrees. Normal [facility] UroVysion Fish and Urine Cyt o ([facility])on 01-07-2020 [facility] Method of Extraction Voided Normal [facility] Comment on above: Performed By: #### 1 [id number] ####[facility] [address] [place] [address] [facility] Number of Jars 1 Bette r [facility] Comment on above: Performed By: #### 1 [id number] ####[facility] [id number] [place] [address] [facility] Specimen Urine Normal [facility] Comment on above: Performed By: #### 1 [id number] ####[facility] [id number] [place] [address] [facility] Type of Service Technical Only Normal [facility] Comment on above: Performed By: #### 1 [id number] ####[facility] [address] [place] [address] ALLIED HEALTHon 12-24-2019 ALLIED HEALTH HNO ID: [id number] Author: ERICA Ibarra (Ct) Service: Radiology Author Type: Instructor Warper Type: Allied Health Filed: 12/24/2019 9:54 AM [...] DATE: December 24, 2019 TIME: 9:[address] [facility] [address] PULMONARY VEIN W IVCONon 12-24-2019 [...] 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 Spiral imaging with retrospective [...] as dissection, intramural hematoma, or contained rupture. Early Childhood Education Specialist dimensions of the thoracic aorta are as [...] CT exam in 3 months is recommended. Fire Control Technician G: LELIA Transcribe Date/Time: Dec 24 2019 11:12A Dictated by : SARA SIMPSON MD This examination was interpreted and the report reviewed and electronically signed by: SARA SIMPSON MD on Dec 24 2019 12:47PM EST [id number] N ACTIONABLE [facility] NURSING PROGon 12-24-2019 NURSING PROG HNO ID: [id number] Author: Arlene (Rn) CONSTANTIN Chowdhury Service: Nursing Author Type: Registered Nurse Type: Nursing Progress Note Filed: 12/24/2019 11:00 AM Note Text: Nursing Progress Note Topic of Note: Daily Note Jorge Davis [id number] Pt SR. Procedure cancelled. H/L removed from CT scan. Dr. Nelson spoke with p0t. This note was completed by: Arlene Chowdhury, CONSTANTIN [facility] PROGRESSon 12-24-2019 PROGRESS HNO ID: [id number] Author: Ezequiel Nelson Service: Electrophysiology Author Type: Physician Type: Progress Notes Filed: 12/24/2019 10:44 AM Note Text: Scheduled for cardioversion, but in SR upon arrival. [facility] CNPNon 12-18-2019 CNPN Telephone (FVPRAD) JORGE DAVIS ([id number]) 1945 [facility]* Date Time Provider Department 12/18/19 SHAMA IBANEZ) [...] He will get labs done tomorrow at [place] Sending to procedure schedulers for cardioversion scheduling. If possible try to arrange on 12/23 at in early afternoon as he will already be here and NPO for CT scan. If not possible on that day then please schedule at [place] with available provider at patient's convenience Shama Ibanez PA-C. Johnny Diaz 12/19/2019 10:22 AM Signed Pts calling back in regards to below. Would like a return call with questions about the procedure. can be reached at [phone], ok to leave detailed message. Please advise. Laura Schneider APRN.CNP 12/19/2019 1:50 PM Signed Called . She had questions regarding where to report the day of the CT scan and DCCV. Advised to report to the main lobby and security will direct them to the appropriate locations. Laura Schneider APRN.TATA Allergies As of Date: 12/18/2019 (No Known Allergies) Date Reviewed: 11/05/2019 Reviewed by: Lyndsay Higgins Ma - Fully Assessed Reason for Visit: Results [95] Primary Visit Diagnosis:Atrial fibrillation, persistent (HCC) [I48.19] Order(s):CBC + DIFF [SQCBCDIF] Order #: [id number] FUTURE BASIC METABOLIC PNL [SQBMP] Order #: [id number] FUTURE MAGNESIUM BLD [SQMG1] Order #: [id number] FUTURE PRE-PROCEDURE AND PRE-OPERATIVE COVID [SQPOCOVD] Order #: [id number] FUTURE CARDIOVERSION, ELECTIVE, ELECTRICAL [03847YRD] Order #: [id number]: 1 Prescriptions as of 12/18/2019 Sig: APIXABAN [...] Atrial fibrillation (HCC) [I48.91] 07/08/2014 Atherosclerosis of [place] coronary artery of na*07/10/2015 Diabetes mellitus type 2, controlled, without c*07/10/2015 Atrial fibrillation, persistent (HCC) [I48.19] 07/22/2015 Paroxysmal atrial fibrillation (HCC) [I48.0] 12/04/2015 Paroxysmal atrial flutter (HCC) [I48.92] 05/30/2018 Obesity, Class III, BMI >= 40 [E66.01] 10/23/2019 Encounter Status:Closed by SHAMA IBANEZ PA-C on 12/18/19 [facility] HOSPon 12-18-2019 HOSP Patient:Jorge Davis MRN: [...] [E78.5] Atrial fibrillation (HCC) [I48.91] Atherosclerosis of [place] coronary artery of [place] heart without angina pectoris [I25.10] Diabetes mellitus [...] He will get labs done tomorrow at [place] Sending to procedure schedulers for cardioversion scheduling. If possible try to arrange on 12/23 at in early afternoon as he will already be here and NPO for CT scan. If not possible on that day then please schedule at [place] with available provider at patient's convenience Shama Ibanez PA-C. Johnny Diaz 12/19/2019 10:22 AM Signed Pts calling back in regards to below. Would like a return call with questions about the procedure. can be reached at [phone], ok to leave detailed message. Please advise. Laura Schneider APRN.TATA 12/19/2019 1:50 PM Signed Called . She had questions regarding where to report the day of the CT scan and DCCV. Advised to report to the main lobby and security will direct them to the appropriate locations. Laura Schneider APRN.TATA Normal [facility] NURSING PROGon 10-24-2019 Cholesterol [Mass/Vol] HNO ID: [id number] Author: Nga (Rn) CONSTANTIN Garcia Service: Nursing Author Type: Registered Nurse Type: Nursing Progress Note Filed: 10/24/2019 11:13 AM Note Text: Nursing Progress Note Topic of Note: Routine Reassessment Jorge Davis [id number] 1110- Patient up in bed. Bilateral groins soft, tender, bilateral DP pulses palpable. Patient states no pain, is unhappy that he is not discharged yet. 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 This note was completed by: Nga Garcia RN [facility] NURSING PROG HNO ID: [id number] Author: Caridad (Rn) CONSTANTIN Alvarez Service: Nursing Author Type: Registered Nurse Type: Nursing Progress Note Filed: 10/24/2019 8:21 AM Note Text: Nursing Progress Note Patient Name: Jorge Davis Patient Location: [id number]/[id number] Daily Note: 0800- Pt sitting up in bed, assessment charted per npr, IV patent, Bilat groins soft, tender,no s/s of any bleeding or infection, bilat pedal pulses palpated,call light within reach,am meds given,no pain,no issues. This note was completed by: Caridad Alvarez RN [facility] ANES POSTPROC EVALon 020 ANES POSTPROC EVAL HNO ID: [id number] Author: Murtaza Bauer Service: ? Author Type: [...] October 23, 2019 TIME: 3:04 PM CSN: [id number] [facility] ANES PRE-OPon 10-23-2019 ANES PRE-OP HNO ID: [id number] Author: Murtaza Bauer Service: ? Author Type: [...] (obstructive sleep apnea) CARDIO (+) Atherosclerosis of [place] coronary artery of [place] heart without angina pectoris (+) Atrial fibrillation [...] October 23, 2019 TIME: 7:27 AM CSN: [id number] [facility] Basic Metabolic Panlon 10-22 Anion gap [Moles/Vol] 15 mmol/L Normal 9-18 [facility] Comment on above: Performed By: #### C BC, BMP #### [place] [phone] Calcium [Mass/Vol] 9.1 mg/dL Normal 8.5-10.5 [facility] Comment on above: Performed By: #### C BC, BMP #### [place] [id number] Chloride [Moles/Vol] 103 mmol/L Normal 98-110 [facility] Comment on above: Performed By: #### C BC, BMP #### [place] [id number] CO2 [Moles/Vol] 21 mmol/L Low 23-32 [facility] Comment on above: Performed By: #### C BC, BMP #### [place] [id number] Creatinine [Mass/Vol] 0.78 mg/dL Normal 0.70-1.40 [facility] Comment on above: Performed By: #### C BC, BMP #### [place] [id number] eGFR- Amer. >60 Normal >60 [facility] Comment on above: Performed By: #### C BC, BMP #### [place] [id number] GFR/1.73 sq M predicted among non-blacks MDRD (S/P/Bld) [Vol rate/Area] mL/min/{1.73_m2} Normal >60 [facility] Comment on above: Performed By: #### C BC, BMP #### [place] [phone] Glucose [Mass/Vol] 124 mg/dL High 65-100 [facility] Comment on above: Performed By: #### C BC, BMP #### [phone] Potassium [Moles/Vol] 4.1 mmol/L Normal 3.5-5.0 [facility] Comment on above: Performed By: #### C BC, BMP #### [place] [address] Sodium [Moles/Vol] 139 mmol/L Normal 135-146 [facility] Comment on above: Performed By: #### C GLORIA, BMP #### [place] [phone] Urea nitrogen [Mass/Vol] 16 mg/dL Normal 10-25 [facility] Comment on above: Performed By: #### C GLORIA, BMP #### [place] [phone] CBCon 10-23-2019 Absolute nRBC <0.01 Normal <0.01 [facility] Comment on above: Performed By: #### Everett CASTRO, BMP #### [place] [phone] Erythrocyte distribution width (RBC) [Ratio] 14.7 % Normal 11.5-15.0 [facility] Comment on above: Performed By: #### Everett CASTRO, BMP #### [place] [phone] Hematocrit (Bld) [Volume fraction] 46.7 % Normal 39.0-51.0 [facility] Comment on above: Performed By: #### Everett CASTRO, BMP #### [place] [phone] Hemoglobin (Bld) [Mass/Vol] 14.8 g/dL Normal 13.0-17.0 [facility] Comment on above: Performed By: #### C BC, BMP #### [place] [phone] MCH (RBC) [Entitic mass] 28.7 pG Normal 26.0-34.0 [facility] Comment on above: Performed By: #### Everett CASTRO, BMP #### [place] [address] MCHC (RBC) [Mass/Vol] 31.7 g/dL Normal 30.5-36.0 [facility] Comment on above: Performed By: #### C BC, BMP #### [place] [address] MCV (RBC) [Entitic vol] 90.7 fL Normal 80.0-100.0 [facility] Comment on above: Performed By: #### C BC, BMP #### [place] [phone] Platelet mean volume (Bld) [Entitic vol] 10.0 fL Normal 9.0-12.7 [facility] Comment on above: Performed By: #### C BC, BMP #### [place] [phone] Platelets (Bld) [#/Vol] 178 10*3/uL Normal 150-400 [facility] Comment on above: Performed By: #### C BC, BMP #### [place] [phone] RBC (Bld) [#/Vol] 5.15 10*6/uL Normal 4.20-6.00 [facility] Comment on above: Performed By: #### C BC, BMP #### [place] [address] WBC (Bld) [#/Vol] 6.73 10*3/uL Normal 3.70-11.00 [facility] Comment on above: Performed By: #### C BC, BMP #### [place] [address] ECG COMPLETEon 10-23-2019 ECG COMPLETE NAME : JORGE DAVIS PID : [id number] : 1945 Gender : Male Race : ORD : [id number] Procedure Date : Oct 23 2019 14:59:44 Edit Date : Oct 23 2019 17:01:19 Diagnosis:Sinus tachycardia IVCD, consider atypical RBBB Abnormal ECG Confirmed by KATRINA KELLEY MD ([id number]) on 10/23/2019 5:01:18 PM Ventricular Rate : 101 BPM Atrial Rate : 101 BPM P-R Interval : 187 ms QRS Duration : 122 ms Q-T Interval : 386 ms QTC Calculation(Bazett) : 501 ms P Jefferson : 65 degrees R Jefferson : -32 degrees T Jefferson : 54 degrees Test Reason : Post-OP Location : 400 : FVEKG 6 Overread By : KATRINA KELLEY MD Edited By : KATRNIA KELLEY MD Referred By : , Acquired by : DARA [facility] ECG COMPLETE NAME : JORGE DAVIS PID : [id number] : 1945 Gender : Male Race : ORD : [id number] Procedure Date : Oct 23 2019 07:03:28 Edit Date : Oct 23 2019 16:59:50 Diagnosis:Atrial fibrillation Abnormal ECG Confirmed by KATRINA KELLEY MD ([id number]) on 10/23/2019 4:59:48 PM Ventricular Rate : 70 BPM Atrial Rate : 0 BPM P-R Interval : 120 ms QRS Duration : 109 ms Q-T Interval : 437 ms QTC Calculation(Bazett) : 472 ms R [place] : -21 degrees T Jefferson : 35 degrees Test Reason : Pre OP Location : 400 : FVEKG 6 Overread By : KATRINA KELLEY MD Edited By : KATRINA KELLEY MD Referred By : , Acquired by : , [facility] HISTORY PHYSICALon 0 HISTORY PHYSICAL HNO ID: [id number] Author: Ruben Denton MD Service: Cardiovascular Disease [...] SURGICAL HISTORY OF minor hand surgery - [place] ANESTH,TOTAL KNEE ARTHROPLASTY 2006 Right Knee - [...] PSYCH: Negative for depression or sleep disturbance. HEMATOLOGY/LYMPHOLOGY : Negative for prolonged bleeding, bruising easily or [...] October 23, 2019 TIME: 6:59 AM PAGER: [phone] CARD EP STAFF Pt seen and examined. The documented findings were individually confirmed, and the history was verified and corrected, if appropriate. I discussed the patient's management with the PA and reviewed their note. Additional Hx/summary is as follows: 74 YO male with persistent AF despite prior DCCV and dofetilide. He presents today for PVAI. Ruben Denton MD [facility] NURSING PROGon 10-23-2019 NURSING PROG HNO ID: [id number] Author: Nacho Hatfield (Rn) CONSTANTIN Mensah Service: Nursing Author Type: Registered Nurse Type: Nursing Progress Note Filed: 10/24/2019 5:41 AM Note Text: Nursing Progress Note Patient Name: Jorge Davis Patient Location: [id number]/[id number] Pt resting quietly in room. R/L groins soft and without hematoma or bleeding. (Small pink drainage left groin noted). DP pulses palpable. No pain or complaints. [employer] cough noted. Cepacol ineffective. Obtained Tessalon Skinfix order. Will administer when available from pharmacy. [...] note was completed by: Nacho Mensah RN [facility] NURSING PROG HNO ID: [id number] Author: Marybeth BriggsRn) CONSTANTIN Parr Service: Nursing Author Type: Registered Nurse Type: Nursing Progress Note Filed: 10/23/2019 4:47 PM Note Text: Nursing Progress Note Topic of Note: Daily Note Jorge W Ryan [id number] 1630 pt. up to floor via bed [...] note was completed by: Marybeth Parr RN [facility] NURSING PROG HNO ID: [id number] Author: Celeste Andrews) CONSTANTIN Fay Service: Nursing Author Type: Registered Nurse [...] R.N. 1621 Pt. transported via bed to [facility] 308 with all personal belongings. Normal [facility] Type and Screenon 10-23-2019 ABO/RH(D) Positive Normal [facility] Comment on above: Performed By: #### T SCR ####[address] Urinalysison 10-23-2019 Bilirubin, Urine Negative Normal Negative [facility] Comment on above: Performed By: #### U A #### [place] [address] Clarity (U) Clear Normal Clear [facility] Comment on above: Performed By: #### U A #### [address] Color (U) Light Yellow Critically abnormal Yellow [facility] Comment on above: Performed By: #### U A #### [address] Comments SEE COMMENT Normal [facility] Comment on above: Result Comment: Micr oscopic not warranted Performed By: #### U A #### [place] [address] Glucose Ql (U) Negative Normal Negative [facility] Comment on above: Performed By: #### U A #### [address] Hemoglobin/Blood,Ur Negative Normal Negative [facility] Comment on above: Performed By: #### U A #### [place] [id number] Ketones Ql (U) Negative Normal Negative [facility] Comment on above: Performed By: #### U A #### [place] [id number] Leukest Negative Normal Negative [facility] Comment on above: Performed By: #### U A #### [address] Nitrite Ql (U) Negative Normal [facility] Comment on above: Performed By: #### U A #### [place] [id number] pH (Bld) 6.5 Normal 5.0-8.0 [facility] Comment on above: Performed By: #### U A #### [address] Protein (U) [Mass/Vol] Negative Normal [facility] Comment on above: Performed By: #### U A #### [address] Specific [place], Ur 1.015 Normal 1.005-1.030 [facility] Comment on above: Performed By: #### U A #### [place] [address] Urobilinogen Qn (U) Negative Normal Negative [facility] Comment on above: Performed By: #### U A #### [place] [id number] Lab Reportson 10-11-2019 Lab Reports [id number]. 00CD:127 Normal [facility] Confirm Blood Typeon 020 ABO/RH(D) Positive [facility] Comment on above: Performed By: #### C ONABO ####[address] [place] [id number] HOSPon 09-18-2019 HOSP Patient:Jorge Davis MRN: Height:5' [...] [E78.5] Atrial fibrillation (HCC) [I48.91] Atherosclerosis of [place] coronary artery of [place] heart without angina pectoris [I25.10] Diabetes mellitus [...] Progress Notes (CARD EPS MAIN): [facility] Villegas [facility] 10/22/2019 1:11 PM Signed October 22, 2019 1:10 PM Patient Name: Jorge Davis [id number] Contact Information: [phone] (home) [phone] (cell) Reason for Call: Patient scheduled for PVI ablation tomorrow at [facility] - what are his instructions regarding his eliquis ? Physician: Ruben Denton MD, RN, RN 10/22/2019 4:[address] Thomas instructions available in [facility] patient advised to hold Eliquis the morning of his procedure. HE stated understanding. Carmelina Bender RN Progress Notes (CARD EPS MAIN): [facility] Villeg[facility] 10/14/2019 3:44 PM Signed October 14, 2019 3:43 PM Patient Name: Jorge Davis [id number] Contact Information: [phone] (home) [phone] (cell) Last visit with EP Provider: 04/19/2019 Reason for Call: Received partially completed application for [employer] with documentation from patient; gave to nurse to complete physician section Physician: Ruben Denton MD, RN, RN 10/16/2019 9:51 AM Signed Completed and returned to [facility]. Usha Bonilla RN [facility] NURSING PROGon 09-18-2019 NURSING PROG HNO ID: [id number] Author: Arlene (Rn) CONSTANTIN Chowdhury Service: Nursing Author Type: Registered Nurse Type: Nursing Progress Note Filed: 09/18/2019 9:57 AM Note Text: Nursing Progress Note Topic of Note: Daily Note Jorge Davis [id number] Pre op done. INR 4.3. Repeat in [...] note was completed by: Arlene Chowdhury RN [facility] Protimeon 09-18-2019 PT Coag (PPP) [Time] 51.3 s High 9.7-13.0 [facility] Comment on above: Performed By: #### P T #### [facility] [address] [place] [address] PT Coag (PPP) [Time] 5.0 s High 0.9-1.3 [facility] Comment on above: Result Comment: Ashlie min K Antagonist (VKA) Therapeutic Range: INR 2 to 3 (Target INR of 2.5) Note: For patients treated with VKA drugs, such as warfarin, the [place] [employer] 2012 Guideline recommends [...] GH, et al. Chest 2012, 141:7S-47S Karen RA et al. [facility] 2017, 70: 252-289 Performed By: #### P T #### [facility] [address] [place] [address] Type and Screenon 09-18-2019 ABO/RH(D) Positive Normal [facility] Comment on above: Performed By: #### T SCR ####[facility] [place], [place] [phone] HOSPon 06-17-2019 HOSP Patient:Jorge Davis MRN: Height:5' [...] [E78.5] Atrial fibrillation (HCC) [I48.91] Atherosclerosis of [place] coronary artery of [place] heart without angina pectoris [I25.10] Diabetes mellitus type 2, controlled, without complications (HCC) [E11.9] Persistent atrial fibrillation (HCC) [I48.19] Paroxysmal atrial fibrillation (HCC) [I48.0] Paroxysmal atrial flutter (HCC) [I48.92] Allergies: No Known Allergies Date Verified:09/11/19 Lab Values Lab Value Units Date High Low POTA* 4.3 mmol/L 09/11/2019 5.1 3.7 FISH* 50.1 % 09/11/2019 51.0 39.0 Progress Notes ([facility]): Nga Umanzor RT 09/11/2019 3:23 PM Signed Radiology Service [...] DATA: Not applicable SIGNED BY: Ellis Caruso, September 11, 2019 3:22 PM Progress Notes (CARD [facility] REJ): Venkat Evans MD 09/11/2019 2:16 PM Signed Ref[place]: [place] [id number] [facility] [address] Primary Care Physician: Declan Swanson MD Jorge Davis is a 74 year old male that presents today for evaluation of NON OBS Coronary artery disease involving [place] coronary artery of [place] heart without angina pectoris Paroxysmal A-fib (HCC) [...] this pm 2. Coronary artery disease involving [place] coronary artery of [place] heart without angina pectoris - ICD9: 414.01, [...] ABNORMAL ECG Confirmed by NIRMAL NEUMANN MD ([id number]) on 05/22/2019 9:24:01 PM ? Ventricular Rate : 61 ?BPM Atrial Rate : 174 ?BPM QRS Duration : 100 ?ms Q-T Interval : 454 ?ms QTC Calculation(Bazett) : 457 ?ms R Jefferson : 0 ?degrees T Jefferson : 49 ?degrees PAST MEDICAL HISTORY Diagnosis [...] SURGICAL HISTORY OF minor hand surgery - [place] ANESTH,TOTAL KNEE ARTHROPLASTY 2006 Right Knee - [...] 69 Venkat Evans MD Previous Version Normal [facility] Vital Signs Date Time Vital Sign Value Performing Clinician Facility 12-18-2023 10:49-0400 Body height 167.64 cm [facility] 12-18-2023 10:49-0400 Body mass index (BMI) [Ratio] 41.6 kg/m2 [facility] 12-18-2023 10:49-0400 Body weight 117.02 kg [facility] 12-18-2023 10:49-0400 Diastolic blood pressure 83 mm[Hg] [facility] 12-18-2023 10:49-0400 Heart rate 76 /min [facility] 12-18-2023 10:49-0400 Respiratory rate 76 /min [facility] 12-18-2023 10:49-0400 Systolic blood pressure 151 mm[Hg] [facility] 12-08-2023 11:03-0400 Body mass index (BMI) [Ratio] 43.43 kg/m2 Venkat Emanuel MD Work Phone: [facility] 12-08-2023 11:03-0400 Body weight 118.39 kg Venkat Emanuel MD Work Phone: [facility] 12-08-2023 11:03-0400 Diastolic blood pressure 80 mm[Hg] Venkat Emanuel MD Work Phone: [facility] 12-08-2023 11:03-0400 Heart rate 88 /min Venkat Emanuel MD Work Phone: [facility] 12-08-2023 11:03-0400 SaO2% (BldA) [Mass fraction] 97 % Venkat Emanuel MD Work Phone: [facility] 12-08-2023 11:03-0400 Systolic blood pressure 142 mm[Hg] Venkat Emanuel MD Work Phone: [facility] 08-21-2023 11:37-0400 Body height 167.64 cm [facility] 08-21-2023 11:37-0400 Body mass index (BMI) [Ratio] 41.3 kg/m2 [facility] 08-21-2023 11:37-0400 Body weight 116.28 kg [facility] 08-21-2023 11:37-0400 Diastolic blood pressure 77 mm[Hg] [facility] 08-21-2023 11:37-0400 Heart rate 85 /min [facility] 08-21-2023 11:37-0400 Respiratory rate 12 /min [facility] 08-21-2023 11:37-0400 Systolic blood pressure 128 mm[Hg] [facility] 08-09-2023 13:44-0400 Body height 167.64 cm [facility] 08-09-2023 13:44-0400 Body mass index (BMI) [Ratio] 42.1 kg/m2 [facility] 08-09-2023 13:44-0400 Body weight 118.38 kg [facility] 08-09-2023 13:44-0400 Diastolic blood pressure 76 mm[Hg] [facility] 08-09-2023 13:44-0400 Heart rate 85 /min [facility] 08-09-2023 13:44-0400 Respiratory rate 16 /min [facility] 08-09-2023 13:44-0400 Systolic blood pressure 136 mm[Hg] [facility] 07-04-2023 08:58-0400 Body height 165.1 cm Shama VEGA-C Work Phone: [facility] 07-04-2023 08:58-0400 Body mass index (BMI) [Ratio] 44.5 kg/m2 Shama VEGA-C Work Phone: [facility] 07-04-2023 08:58-0400 Body weight 121.3 kg Shama VEGA-C Work Phone: [facility] 07-04-2023 08:58-0400 Diastolic blood pressure 78 mm[Hg] Shama Ibanez PA-C Work Phone: [facility] 07-04-2023 08:58-0400 Heart rate 80 /min Shama Ibanez PA-C Work Phone: [facility] 07-04-2023 08:58-0400 Systolic blood pressure 146 mm[Hg] Shama Ibanez PA-C Work Phone: [facility] 06-05-2023 13:48-0400 Body weight 120.2 kg Venkat Emanuel MD Work Phone: [facility] 06-05-2023 13:48-0400 Diastolic blood pressure 78 mm[Hg] Venkat Emanuel MD Work Phone: [facility] 06-05-2023 13:48-0400 Heart rate 74 /min Venkat Emanuel MD Work Phone: [facility] 06-05-2023 13:48-0400 Systolic blood pressure 124 mm[Hg] Venkat Emanuel MD Work Phone: [facility] 03-23-2023 11:00-0500 Body height 167.64 cm Declan Ball Other [employer] Other 03-23-2023 11:00-0500 Body mass index (BMI) [Ratio] 43.15 kg/m2 Declan Ball Other [employer] Other 03-23-2023 11:00-0500 Body weight 121.29 kg Declan Ball Other [facility] Other 03-23-2023 11:00-0500 Diastolic blood pressure 89 mm[Hg] Declan Ball Other [employer] Other 03-23-2023 11:00-0500 Systolic blood pressure 142 mm[Hg] Declan Ball Other [facility] Other 01-03-2023 11:45-0400 Body height 167.64 cm Declan Ball Other [facility] Other 01-03-2023 11:45-0400 Body mass index (BMI) [Ratio] 42.57 kg/m2 Declan Ball Other [facility] Other 01-03-2023 11:45-0400 Body weight 119.66 kg Declan Ball Other [facility] Other 01-03-2023 11:45-0400 Diastolic blood pressure 78 mm[Hg] Declan Ball Other [facility] Other 01-03-2023 11:45-0400 Respiratory rate 16 /min Declan Ball Other [facility] Other 01-03-2023 11:45-0400 Systolic blood pressure 128 mm[Hg] Declan Ball Other [facility] Other 12-14-2022 11:30-0400 Body height 167.64 cm Declan Ball Other [employer] Other 12-14-2022 11:30-0400 Body mass index (BMI) [Ratio] 43.61 kg/m2 Declan Ball Other [employer] Other 12-14-2022 11:30-0400 Body weight 122.56 kg Declan Ball Other [facility] Other 12-14-2022 11:30-0400 Diastolic blood pressure 86 mm[Hg] Declan Ball Other [employer] Other 12-14-2022 11:30-0400 Respiratory rate 12 /min Declan Ball Other [employer] Other 12-14-2022 11:30-0400 Systolic blood pressure 141 mm[Hg] Declan Ball Other [employer] Other 12-13-2022 09:58-0400 Diastolic blood pressure 70 mm[Hg] DO Declan Ball Work Phone: [facility] 12-13-2022 09:58-0400 Heart rate 56 /min DO Declan Ball Work Phone: [facility] 12-13-2022 09:58-0400 Respiratory rate 16 /min DO Declan Ball Work Phone: [facility] 12-13-2022 09:58-0400 SaO2% (BldA) [Mass fraction] 95 % DO Declan Ball Work Phone: [facility] 12-13-2022 09:58-0400 Systolic blood pressure 149 mm[Hg] DO Declan Ball Work Phone: [facility] 12-13-2022 09:15-0400 Inhaled oxygen flow rate 3 L/min DO Declan Ball Work Phone: [facility] 12-13-2022 08:53-0400 Body height 157.48 cm DO Declan Ball Work Phone: [facility] 12-13-2022 08:53-0400 Body weight 120.2 kg DO Declan Ball Work Phone: [facility] 11-04-2022 14:45-0400 Body height 167.64 cm Declan Ball Other [employer] Other 11-04-2022 14:45-0400 Body mass index (BMI) [Ratio] 43.64 kg/m2 Declan Ball Other [employer] Other 11-04-2022 14:45-0400 Body weight 122.65 kg Declan Ball Other [facility] Other 11-04-2022 14:45-0400 Diastolic blood pressure 87 mm[Hg] Declan Ball Other [facility] Other 11-04-2022 14:45-0400 Respiratory rate 16 /min Declan Ball Other [facility] Other 11-04-2022 14:45-0400 Systolic blood pressure 148 mm[Hg] Declan Ball Other [facility] Other 10-13-2022 11:00-0400 Body height 167.64 cm Declan Ball Other [facility] Other 10-13-2022 11:00-0400 Body mass index (BMI) [Ratio] 43.41 kg/m2 Declan Ball Other [facility] Other 10-13-2022 11:00-0400 Body weight 122.02 kg Declan Ball Other [facility] Other 10-13-2022 11:00-0400 Diastolic blood pressure 75 mm[Hg] Declan Ball Other [facility] Other 10-13-2022 11:00-0400 Respiratory rate 16 /min Declan Ball Other [facility] Other 10-13-2022 11:00-0400 Systolic blood pressure 132 mm[Hg] Declan Ball Other [facility] Other 09-15-2022 09:15-0400 Body height 167.64 cm Declan Ball Other [facility] Other 09-15-2022 09:15-0400 Body mass index (BMI) [Ratio] 43.22 kg/m2 Declan Ball Other [facility] Other 09-15-2022 09:15-0400 Body weight 121.47 kg Declan Ball Other [facility] Other 09-15-2022 09:15-0400 Diastolic blood pressure 81 mm[Hg] Declan Ball Other [facility] Other 09-15-2022 09:15-0400 Respiratory rate 12 /min Declan Ball Other [facility] Other 09-15-2022 09:15-0400 Systolic blood pressure 139 mm[Hg] Declan Ball Other [facility] Other 08-16-2022 11:30-0400 Body height 167.64 cm Declan Ball Other [facility] Other 08-16-2022 11:30-0400 Body mass index (BMI) [Ratio] 43.19 kg/m2 Declan Ball Other [facility] Other 08-16-2022 11:30-0400 Body weight 121.38 kg Declan Ball Other [facility] Other 08-16-2022 11:30-0400 Diastolic blood pressure 73 mm[Hg] Declan Ball Other [facility] Other 08-16-2022 11:30-0400 Respiratory rate 12 /min Declan Ball Other [employer] Other 08-16-2022 11:30-0400 Systolic blood pressure 124 mm[Hg] Declan Ball Other [employer] Other 06-24-2022 14:14-0400 Body height 165.1 cm Ruben Denton MD Work Phone: [facility] 06-24-2022 14:14-0400 Body weight 122.02 kg Ruben Denton MD Work Phone: [facility] 06-24-2022 14:14-0400 Diastolic blood pressure 82 mm[Hg] Ruben Denton MD Work Phone: [facility] 06-24-2022 14:14-0400 Heart rate 69 /min Ruben Denton MD Work Phone: [facility] 06-24-2022 14:14-0400 Systolic blood pressure 155 mm[Hg] Ruben Denton MD Work Phone: [facility] 05-16-2022 11:30-0500 Body height 167.64 cm Declan Ball Other [facility] Other 05-16-2022 11:30-0500 Body mass index (BMI) [Ratio] 44.87 kg/m2 Declan Ball Other [facility] Other 05-16-2022 11:30-0500 Body weight 126.1 kg Declan Ball Other [facility] Other 05-16-2022 11:30-0500 Diastolic blood pressure 82 mm[Hg] Declan Ball Other [facility] Other 05-16-2022 11:30-0500 Respiratory rate 12 /min Declan Ball Other [facility] Other 05-16-2022 11:30-0500 SaO2% (BldA) [Mass fraction] 97 % Declan Ball Other [facility] Other 05-16-2022 11:30-0500 Systolic blood pressure 122 mm[Hg] Declan Ball Other [facility] Other 03-22-2022 09:30-0500 Body height 167.64 cm Declan Ball Other [facility] Other 03-22-2022 09:30-0500 Body mass index (BMI) [Ratio] 44.41 kg/m2 Declan Ball Other [facility] Other 03-22-2022 09:30-0500 Body weight 124.83 kg Declan Ball Other [facility] Other 03-22-2022 09:30-0500 Diastolic blood pressure 82 mm[Hg] Declan Swanson Other [facility] Other 03-22-2022 09:30-0500 Respiratory rate 20 /min Declan Swanson Other [facility] Other 03-22-2022 09:30-0500 Systolic blood pressure 122 mm[Hg] Declan Swanson Other [facility] Other 12-31-2021 13:06-0400 Body weight 122.02 kg Venkat Emanuel MD Work Phone: [facility] 12-31-2021 13:06-0400 Diastolic blood pressure 70 mm[Hg] Venkat Emanuel MD Work Phone: [facility] 12-31-2021 13:06-0400 Heart rate 84 /min Venkat Emanuel MD Work Phone: [facility] 12-31-2021 13:06-0400 SaO2% (BldA) [Mass fraction] 97 % Venkat Emanuel MD Work Phone: [facility] 12-31-2021 13:06-0400 Systolic blood pressure 110 mm[Hg] Venkat Emanuel MD Work Phone: [facility] 06-25-2021 13:14-0400 Body height 165.1 cm Ruben Denton MD Work Phone: [facility] 06-25-2021 13:14-0400 Body weight 124.74 kg Ruben Denton MD Work Phone: [facility] 06-25-2021 13:14-0400 Diastolic blood pressure 80 mm[Hg] Ruben Denton MD Work Phone: [facility] 06-25-2021 13:14-0400 Heart rate 69 /min Ruben Denton MD Work Phone: [facility] 06-25-2021 13:14-0400 Systolic blood pressure 132 mm[Hg] Ruben Denton MD Work Phone: [facility] 05-20-2021 10:00-0500 Body height 167.64 cm Bruce Shine II Other [facility] Other 05-20-2021 10:00-0500 Body mass index (BMI) [Ratio] 43.9 kg/m2 Bruce De [employer] Property [employer] Other [facility] Other 05-20-2021 10:00-0500 Body weight 123.38 kg Bruce JungOngage Other [facility] Other Encounters Encounter Date Encounter Type Care Provider Facility Start: 12-19-2023 End: 12-19-2023 Telephone encounter Venkat Evans MD Work Phone: Cardiology Start: 12-18-2023 End: 12-18-2023 ambulatory [facility] Work Phone: Start: 12-18-2023 End: 12-18-2023 Patient encounter procedure [facility] Work Phone: Start: 12-18-2023 Non-patient / Non-visit [facility] Physician [facility] Work Phone: Start: 12-12-2023 End: 12-12-2023 Telephone encounter Ruben Denton MD Work Phone: Cardiology Comment on above: Received Outside Med [facility] Records Start: 12-08-2023 Non-patient / Non-visit [facility] Physician [facility] [employer] Work Phone: Start: 12-08-2023 End: 12-08-2023 ambulatory VENKAT EVANS Facility:[facility] Start: 12-08-2023 End: 12-08-2023 Office outpatient visit 25 minutes Venkat Evans MD Work Phone: Cardiology Comment on above: Chronic diastolic he art failure (HCC) (Primary Dx); Atrial fibrillation, persistent (HCC); Obesity, Class III, 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); Mixed hyperlipidemia; Coronary artery disease involving [place] coronary artery of [place] heart without angina pectoris Start: 12-08-2023 End: 12-08-2023 ambulatory DECLAN SWANSON Facility:[facility] Start: 12-07-2023 Non-patient / Non-visit [facility] Work Phone: Start: 12-06-2023 Non-patient / Non-visit [facility] Work Phone: Start: 12-05-2023 Non-patient / Non-visit [facility] Work Phone: Start: 11-15-2023 End: 11-15-2023 Telephone encounter Ruben Denton MD Work Phone: Cardiology Comment on above: Received Outside Med ical Records Start: 10-03-2023 End: 10-03-2023 ambulatory JOHN CHURCHILL Not Available Start: 09-19-2023 Telephone encounter Ruben murillo MD Work Phone: Cardiology Comment on above: Received Outside Med ical Records Start: 08-31-2023 End: 08-31-2023 ambulatory JARROD SANGEOVANNA Not Available Start: 08-23-2023 End: 08-23-2023 ambulatory JOHN CHURCHILL Not Available Start: 08-22-2023 Telephone encounter Ruben murillo MD Work Phone: Cardiology Comment on above: Received Outside Med ical Records Start: 08-21-2023 End: 08-21-2023 ambulatory [facility] Work Phone: Start: 08-21-2023 End: 08-21-2023 Patient encounter procedure [facility] Work Phone: Start: 08-09-2023 End: 08-09-2023 ambulatory [facility] Work Phone: Start: 08-09-2023 End: 08-09-2023 Patient encounter procedure [facility] Work Phone: Start: 07-25-2023 Telephone encounter Ruben murillo MD Work Phone: Cardiology Comment on above: Received Outside Med ical Records (INR) Start: 07-04-2023 End: 07-04-2023 ambulatory DECLAN Coleman CONC[place] Facility:[facility] Start: 07-04-2023 End: 07-04-2023 Patient encounter procedure Shama Ibanez PA-C Work Phone: Cardiology Comment on above: Atrial fibrillation, persistent (HCC) (Primary Dx); S/P ablation of atrial fibrillation; On continuous oral anticoagulation Start: 06-27-2023 Telephone encounter Ruben murillo MD Work Phone: Cardiology Comment on above: Received Outside Med ical Records Start: 06-23-2023 End: 06-23-2023 ambulatory [facility] Work Phone: Start: 06-23-2023 End: 06-23-2023 Patient encounter procedure [facility] Work Phone: Start: 06-20-2023 End: 06-20-2023 ambulatory JARROD DIALLO Not Available Start: 06-05-2023 End: 06-05-2023 ambulatory VENKAT EVANS Facility:[facility] Start: 06-05-2023 End: 06-05-2023 Patient encounter procedure [...] 03-23-2023 End: 03-23-2023 ambulatory Declan Swanson Other [employer] Other Start: 03-23-2023 Office outpatient vi sit 15 minutes Declan Swanson [facility] Start: 03-10-2023 End: 03-10-2023 ambulatory JARROD DIALLO [...] 01-03-2023 End: 01-03-2023 ambulatory Declan Swanson Other [employer] Other Start: 01-03-2023 Office outpatient vi sit 15 minutes Declan Swanson [facility] Start: 01-03-2023 Telephone encounter Declan Swanson [facility] Start: 01-02-2023 End: 01-02-2023 ambulatory Declan Swanson Other [employer] Other Start: 01-02-2023 Office outpatient vi sit 15 minutes Declan Swanson [facility] Start: 12-23-2022 Telephone encounter Ruben murillo MD Work Phone: Cardiology Comment on above: Received Outside Med ical Records Start: 12-20-2022 End: 12-20-2022 ambulatory Ruben Celis Other [employer] Other Start: 12-20-2022 Office outpatient vi sit 15 minutes Ruben Celis [facility] Start: 12-14-2022 End: 12-14-2022 ambulatory Declan Swanson Other [employer] Other Start: 12-14-2022 Office outpatient vi sit 25 minutes Declan Ball [facility] Start: 12-13-2022 (Procedure) Short Ruben Celis [facility] Start: 12-13-2022 End: 12-13-2022 ambulatory Ruben Celis Facility:[facility] Start: 12-13-2022 End: 12-13-2022 Admission to same day surgery center DO Declan Swanson Work Phone: [facility] Work Phone: Start: 12-13-2022 End: 12-13-2022 ambulatory DO Declan Ball Work Phone: [facility] Work Phone: Start: 11-24-2022 End: 11-24-2022 Patient encounter procedure DO Declan Kiki Work Phone: [facility] [address] Work Phone: Start: 11-24-2022 End: 11-24-2022 ambulatory DO Declan Kiki Work Phone: [facility] Work Phone: Start: 11-24-2022 Telephone encounter Declan Swanson [facility] Start: 11-04-2022 End: 11-04-2022 ambulatory Declan Swanson Other [employer] Other Start: 11-04-2022 Office outpatient vi sit 15 minutes Declan Ball [facility] Start: 11-04-2022 Telephone encounter Declan Swanson [facility] Start: 10-28-2022 Telephone encounter Ruben murillo MD Work Phone: Cardiology Comment on above: Received Outside Med ical Records Start: 10-26-2022 End: 10-26-2022 ambulatory Ruben Celis Other [employer] Other Start: 10-26-2022 Office outpatient vi sit 25 minutes Ruben Celis [facility] [place] Start: 10-24-2022 End: 10-24-2022 ambulatory Declan Swanson Other [employer] Other Start: 10-24-2022 Telephone encounter Declan Swanson [facility] Start: 10-13-2022 End: 10-13-2022 ambulatory Declan Swanson Other [employer] Other Start: 10-13-2022 Office outpatient vi sit 15 minutes Declan Swanson [facility] Start: 10-13-2022 Telephone encounter Ruben murillo MD Work Phone: Cardiology Comment on above: Received Outside Med ical Records Start: 10-12-2022 Office outpatient vi sit 25 minutes Bruce Shine II [facility] Start: 10-12-2022 End: 10-12-2022 ambulatory Declan Swanson Facility:[facility] Start: 10-12-2022 End: 10-12-2022 ambulatory DO Declan Swanson Work Phone: [facility] Work Phone: Start: 10-12-2022 End: 10-12-2022 Patient encounter procedure DO Declan Swanson Work Phone: [facility] Start: 09-16-2022 Telephone encounter Ruben murillo MD Work Phone: Cardiology Comment on above: Received Outside Med ical Records (INR Report) Start: 09-15-2022 End: 09-15-2022 ambulatory Declan Swanson Other [employer] Other Start: 09-15-2022 Office outpatient vi sit 15 minutes Declan Swanson [facility] Start: 09-07-2022 Telephone encounter Venkat gomez MD Work Phone: Cardiology Comment on above: Results Start: 09-01-2022 Telephone encounter Ruben murillo MD Work Phone: Cardiology Comment on above: Received Outside Med ical Records Start: 08-31-2022 End: 08-31-2022 ambulatory Declan Swanson Other [employer] Other Start: 08-31-2022 Telephone encounter [facility] Start: 08-29-2022 End: 08-29-2022 ambulatory Declan Swanson Other [employer] Other Start: 08-29-2022 Telephone encounter Declan [facility] Start: 08-16-2022 End: 08-16-2022 ambulatory Declan Swanson Other [employer] Other Start: 08-16-2022 Patient encounter procedure Declan Swanson [facility] Start: 08-16-2022 Telephone encounter Declan [facility] Start: 07-21-2022 Telephone encounter Ruben murillo MD Work Phone: Cardiology Comment on above: Received Outside [facility] Records Start: 07-14-2022 Telephone encounter Venkat gomez MD Work Phone: Cardiology Comment on above: Results Start: 07-11-2022 End: 08-10-2022 ambulatory SHAIKH Julianne MORALES Facility:[facility] Start: 06-27-2022 End: 06-27-2022 ambulatory Bruce Shine II Other [employer] Other Start: 06-27-2022 Telephone encounter Ruben murillo [...] Class III, BMI >= 40; Atherosclerosis of [place] coronary artery of [place] heart without angina pectoris Start: 06-23-2022 Telephone encounter Ruben murillo MD Work Phone: Cardiology Comment on above: Received Outside Med ical Records Start: 06-13-2022 End: 07-08-2022 ambulatory SHAIKH Julianne MORALES Facility:[facility] Start: 05-27-2022 Telephone encounter Ruben murillo MD Work Phone: Cardiology Comment on above: Received Outside Med ical Records Start: 05-16-2022 End: 05-17-[address] DECLAN SWANSON [employer] Other Start: 05-16-2022 Office outpatient vi sit 25 minutes Declan Swanson [facility] Start: 05-11-2022 End: 06-10-[address] DECLAN SWANSON Facility:[facility] Start: 04-27-2022 End: 04-27-2022 ambulatory Declan Swanson Other [employer] Other Start: 04-27-2022 Telephone encounter Declan Swanson [facility] Start: 04-13-2022 End: 05-11-[address] DECLAN SWANSON Facility:[facility] Start: 03-22-2022 End: 03-22-2022 ambulatory Declan Swanson Other [employer] Other Start: 03-22-2022 Office outpatient vi sit 15 minutes Declan Swanson [facility] Start: 03-22-2022 Telephone encounter Declan BRYAN [facility] Start: 03-21-2022 End: 03-21-2022 ambulatory Declan Swanson Other [employer] Other Start: 03-21-2022 Telephone encounter Declan Swanson [...] Start: 01-11-2022 End: 02-09-2022 ambulatory SHAIKH Julianne JOSE ALBERTO Facility:[facility] Start: 01-05-2022 Telephone encounter Ruben murillo [...] atrial fibrillation (HCC); Coronary artery disease involving [place] coronary artery of [place] heart without angina pectoris; Controlled type 2 diabetes mellitus without complication, without long-term current use of insulin (HCC) Start: 12-21-2021 Telephone encounter Ruben murillo MD Work Phone: Cardiology Comment on above: Received Outside Med ical Records Start: 12-12-2021 End: 01-10-2022 ambulatory SHAIKH Julianne PARKERLINDA Facility:[facility] Start: 12-07-2021 Telephone encounter Ruben murillo MD Work Phone: Cardiology Comment on above: Received Outside Med ical Records Start: 11-11-2021 End: 12-11-2021 ambulatory SHAIKH Julianne MORALES Facility:[facility] Start: 10-11-2021 End: 11-10-2021 ambulatory SHAIKH Julianne PARKERLINDA Facility:[facility] Start: 09-24-2021 End: 09-25-[address] DECALN SWANSON Facility:[facility] Start: 09-22-2021 End: 09-23-[address] DECLAN SWANSON Facility:[facility] Start: 09-10-2021 End: 10-08-2021 ambulatory SHAIKH Julianne PARKERLINDA Facility:[facility] Start: 07-08-2021 Telephone encounter Ruben murillo [...] (HCC); CHRISTIAN (obstructive sleep apnea); Atherosclerosis of [place] coronary artery of [place] heart without angina pectoris; Encounter for current long-term use of anticoagulants Acute on chronic damian stolic heart failure (HCC) (Primary Dx); Primary hypertension Start: 06-10-2021 Telephone encounter Ruben murillo MD Work Phone: Cardiology Comment on above: Received Outside Med ical Records (INR Results 06/10/2021) Start: 05-31-2021 Telephone encounter Ruben murillo MD Work Phone: Cardiology Comment on above: Patient Update Start: 05-20-2021 End: 05-20-2021 ambulatory Bruce Shine II Other [employer] Other Start: 05-20-2021 Office outpatient ne w 45 [address] [facility] Start: 04-21-2021 Telephone encounter Ruben murillo MD Work Phone: Cardiology Comment on above: Results (PT INR ) Start: 12-29-2020 Adult health examination Kali Swanson Other [facility] Other Procedures Date Procedure Procedure Detail Performing Clinician Start: 12-06-2023 Acid Fast Smear Start: 12-06-2023 Aerobic Culture Start: 12-06-2023 AFB Specimen Processing Start: 12-06-2023 Anaerobic Culture Start: 12-05-2023 Blood Culture 1 Start: 12-05-2023 Blood Culture 2 Start: 06-05-2023 Ecg routine ecg w/le ast 12 lds i&r only [facility] Provider Start: 12-13-2022 Epidural injection o f lumbar spine using fluoroscopic guidance DO [employer] Work Phone: Start: 11-24-2022 MR lumbar spine wo con DO Declan Sandata Work Phone: Start: 11-24-2022 XR pre/post mri xray DO Declan Sandata Work Phone: Start: 10-12-2022 Plain x-ray of pelvi s and lower extremity DO Declan Sandata Work Phone: Start: 10-12-2022 X-ray of both knees DO Declan Sandata Work Phone: Start: 10-23-2019 Antibody screen Comment on above: Performed By: #### T SCR ####[place] [phone] Start: 09-18-2019 Antibody screen Comment on above: Performed By: #### T SCR ####[place] [phone] Start: 12-10-2015 Screening for malign ant neoplasm of colon Declan Swanson Other Start: 06-03-2015 General examination of patient Declan Swanson Other Start: 11-04-2013 Screening for malign ant neoplasm of prostate Declan Swanson Other Depression screening Verenice Swanson Other Depression screening Verenice Swanson Other H/O: artificial joint Bruce Shine II Other History of operative procedure on knee Bruce Shine II Other Screening for malign ant neoplasm of colon Bruce Shine II Other Screening for malign ant neoplasm of prostate Declan Swanson Other Plan of Treatment Date Care Activity Detail Author Start: 03-16-2033 Urine microalbumin profile DTa P,Tdap,Td Vaccine (2 - Td or Tdap) [facility] Start: 06-05-2024 End: 06-05-2024 Patient encounter procedure 06/05/2024 10:20 AM EDT Office Visit Cardiology [id number] [place] [address] [place] [address] [place] [address] Return in about 6 months (around 06/06/2024). Cardiology Comment on above: Return in about 6 mo nths (around 06/06/2024). Start: 06-04-2024 BP Controlled (<130/80) BP Con trolled (<130/80) [facility] Start: 03-08-2024 End: 03-08-2024 Patient encounter procedure 03/08/2024 2:00 PM EST Office Visit Cardiology [id number] [place] [address] Shama Ibanez PA-C [address] [place] [address] [place]ER[place] in 4-8 weeks to followup Cardiology Comment on above: GER[place] in 4-8 weeks to followup Start: 12-08-2023 End: 12-08-2023 Patient encounter procedure Cardiology Comment on above: echo Return in about 6 mo nths (around 12/06/2023). Start: 12-06-2023 Acid Fast Culture Acid Fast Culture [facility] Start: 11-12-2023 Covid-19 Vaccine () Covid-19 Vaccine () [facility] Start: 11-12-2023 Covid-19 Vaccine ( season) Covid-19 Vaccine () [facility] Start: 11-12-2023 Influenza [facility] Start: 03-13-2023 Advance Directive Discussion Advance Directive Discussion [facility] Start: 03-13-2023 Behavioral Health Screening Behavioral Health Screening [facility] Start: 03-13-2023 Depression Assessment Depression Ass essment [facility] Start: 12-31-2022 BP CONTROLLED (<130/80) BP CON TROLLED (<130/80) [facility] Start: 12-13-2022 [facility] Start: 11-11-2022 Covid-19 Vaccine () Covid-19 Vaccine () [facility] Start: 11-11-2022 Influenza vaccination C [facility] Start: 03-13-2022 ADVANCE DIRECTIVE DISCUSSION ADVANCE DIRECTIVE DISCUSSION [facility] Start: 03-13-2022 DEPRESSION ASSESSMENT DEPRESSION ASS ESSMENT [facility] Start: 11-11-2021 Influenza vaccination INFLUENZA (#1) [facility] Start: 09-18-2021 Hepatitis B surface antibody level LDL CHOLESTEROL [facility] Start: 06-25-2021 End: 08-25-2021 CBC panel - Blood by Automated count CBC Lab Routine Acute on chronic diastolic heart failure (HCC) Primary hypertension Expected: 06/25/2021, Expires: 08/25/2021 [facility] Work Phone: Comment on above: Expected: 06/25/2021 , Expires: 08/25/2021 Start: 06-25-2021 End: 08-25-2021 Comprehensive metabolic 2000 panel - Serum or Plasma COMP METABOLIC PANEL Lab Routine Acute on chronic diastolic heart failure (HCC) Primary hypertension Expected: 06/25/2021, Expires: 08/25/2021 [facility] Work Phone: Comment on above: Expected: 06/25/2021 , Expires: 08/25/2021 Start: 06-25-2021 End: 08-25-2021 LIPID PANEL BASIC LIPID PANEL BASIC Lab Routine Acute on chronic diastolic heart failure (HCC) Primary hypertension Expected: 06/25/2021, Expires: 08/25/2021 [facility] Work Phone: Comment on above: Expected: 06/25/2021 , Expires: 08/25/2021 Start: 05-20-2021 COVID-19 VACCINE (4 - Booster for Moderna series) COVID-19 VACCINE (4 - Booster for Moderna series) [facility] Start: 03-21-2021 Hemoglobin A1c measurement HbA1C [facility] Start: 03-21-2021 Hemoglobin A1c/Hemoglobin.total in Blood HBA1C [facility] Start: 03-17-2021 COVID-19 VACCINE (4 - Booster for Moderna series) COVID-19 VACCINE (4 - Booster for Moderna series) [facility] Start: 03-17-2021 COVID-19 VACCINE (4 - Moderna series) COVID-19 VACCINE (4 - Moderna series) [facility] Start: 03-13-2021 ADVANCE DIRECTIVE DISCUSSION ADVANCE DIRECTIVE DISCUSSION [facility] Start: 03-13-2021 DEPRESSION ASSESSMENT DEPRESSION ASS ESSMENT [facility] Start: 11-11-2020 Influenza vaccination INFLUENZA (#1) [facility] Start: 11-01-2020 COVID-19 VACCINE (3 - Booster for Moderna series) COVID-19 VACCINE (3 - Booster for Moderna series) [facility] Start: 01-17-2020 RSV Vaccine (1 - 1-d ose 75+ series) RSV Vaccine (1 - 1-dose 75+ series) [facility] Start: 11-09-2015 Pneumococcal Vaccine : 65+ (2 - PCV) Pneumococcal Vaccine: 65+ (2 - PCV) [facility] Start: 11-09-2015 Pneumococcal Vaccine : 65+ (2 of 2 - PCV) Pneumococcal Vaccine: 65+ (2 of 2 - PCV) [facility] Start: 11-09-2015 PNEUMOCOCCAL: 65+ (2 - PCV) PNEUMOCOCCAL: 65+ (2 - PCV) [facility] Start: 2010 ADVANCE DIRECTIVE DISCUSSION ADVANCE DIRECTIVE DISCUSSION [facility] Start: 2005 Hepatitis B Vaccine (1 of 3 - Risk 3-dose series) Hepatitis B Vaccine (1 of 3 - Risk 3-dose series) [facility] Start: 2005 RSV Vaccine (1 - 1-d ose 60+ series) RSV Vaccine (1 - 1-dose 60+ series) [facility] Start: 1995 SHINGRIX VACCINE (1 of 2) SHAH GRIX VACCINE (1 of 2) [facility] Start: 01-17-1964 Urine microalbumin profile [facility] Start: 1963 ANNUAL PCP TEAM WINDLASSER FRANCESCA DISEASE VISIT ANNUAL PCP TEAM CHRONIC DISEASE VISIT [facility] Start: 1963 Anxiety Screening Anxiety Screening [facility] Start: 1963 BP CONTROLLED (<130/80) BP CON TROLLED (<130/80) [facility] Start: 1963 Depression Screening Depression Scre ening [facility] Start: 1963 HEPATITIS C SCREENING HEPATITIS C SC [facility] Start: 1963 Hepatitis C screening Hepatitis C Sc [facility] Start: 1957 Adult depression scr eening assessment DEPRESSION SCREENING [facility] Start: 1955 3 comp foot exam completed DIABETIC FOOT EXAM [facility] Start: 1955 Diabetic foot examination Diabetic F oot Exam [facility] Start: 1955 Glaucoma screening Dilated Retinal E xam [facility] Start: 1955 Hepatitis B screening URINE ALBUMIN:CREATININE RATIO [facility] Start: 1955 Hepatitis C antibody , confirmatory test DILATED RETINAL EXAM [facility] End: 06-01-2022 ECG COMPLETE ECG COMPLETE ECG Routine Atrial fibrillation, persistent (HCC) 1 Occurrences starting 06/01/2021 until 06/01/2022 [facility] Work Phone: Comment on above: 1 Occurrences starti ng 06/01/2021 until 06/01/2022 End: 06-25-2022 ECG COMPLETE ECG COMPLETE ECG Routine Atrial fibrillation, persistent (HCC) 1 Occurrences starting 06/25/2021 until 06/25/2022 [facility] Work Phone: Comment on above: 1 Occurrences starti ng 06/25/2021 until 06/25/2022 End: 06-25-2023 ECG COMPLETE ECG COMPLETE ECG Routine Atrial fibrillation, persistent (HCC) 1 Occurrences starting 06/24/2022 until 06/25/2023 [facility] Work Phone: Comment on above: 1 Occurrences starti ng 06/24/2022 until 06/25/2023 ECG COMPLETE ECG COMPLETE ECG 06/05/2023 2:22 PM EDT [facility] End: 12-31-2022 Echocardiography ECHO Cardiology Routine Chronic diastolic heart failure (HCC) 1 Occurrences starting 12/31/2021 until 12/31/2022 [facility] Work Phone: Comment on above: 1 Occurrences starti ng 12/31/2021 until 12/31/2022 End: 06-04-2024 Echocardiography ECHO Cardiology Routine Chronic diastolic heart failure (HCC) 1 Occurrences starting 06/05/2023 until 06/04/2024 [facility] Work Phone: Comment on above: 1 Occurrences starti ng 06/05/2023 until 06/04/2024 Patient Education Felter Non Damian gnostic Block [facility] Work Phone: Patient referral [facility] Work Phone: [facility] Immunizations Immunization Date Immunization Notes Care Provider [facility] 01-25-2022 influenza, high dose seasonal, preservative-free Declan Swanson Other [facility] Other 01-25-2022 influenza virus vaccine, unspecified formulation Ruben Denton MD Work Phone: [facility] 01-20-2021 COVID-19 Vaccine Moderna - Documentation Purposes Only Declan Swanson Other [facility] 12-29-2020 influenza virus vaccine, split virus (incl. purified surface antigen) Declan Swanson Other [place] [facility] Other 12-29-2020 influenza virus vaccine, unspecified formulation [facility] 06-01-2020 COVID-19 vaccine, fu ll dose (MODERNA) Ruben Denton MD Work Phone: [facility] 05-04-2020 COVID-19 vaccine, fu ll dose (MODERNA) Ruben Denton MD Work Phone: [facility] 01-02-2019 influenza virus vaccine, split virus (incl. purified surface antigen) Declan Swanson Other [place] [facility] Other 01-02-2019 influenza virus vaccine, unspecified formulation [facility] 12-01-2017 influenza virus vaccine, split virus (incl. purified surface antigen) Declan Swanson Other [employer] Other 12-01-2017 influenza virus vaccine, unspecified formulation [facility] 12-01-2017 Seasonal trivalent influenza vaccine, adjuvanted, preservative free Ruben Denton MD Work Phone: [facility] 01-08-2016 seasonal influenza, intradermal, preservative free Ruben Denton MD Work Phone: [facility] 12-10-2015 influenza virus vaccine, split virus (incl. purified surface antigen) Declan Swanson Other [employer] Other 12-10-2015 influenza virus vaccine, unspecified formulation [facility] 12-10-2015 influenza, high dose seasonal, preservative-free Ruben Denton MD Work Phone: [facility] 06-04-2015 pneumococcal conjuga te vaccine, 13 valent Declan Swanson Other [facility] 02-09-2015 influenza, injectabl e, quadrivalent, preservative free Ruben Denton MD Work Phone: [facility] 11-08-2014 pneumococcal polysaccharide vaccine, 23 valent Ruben Denton MD Work Phone: [facility] 11-21-2013 tetanus and diphther ia toxoids, adsorbed, preservative free, for adult use (5 Lf of tetanus toxoid and 2 Lf of diphtheria toxoid) Declan Swanson Other [facility] 12-23-2012 tetanus and diphther ia toxoids, adsorbed, preservative free, for adult use (5 Lf of tetanus toxoid and 2 Lf of diphtheria toxoid) Declan Swanson Other [facility] 12-21-2011 pneumococcal polysaccharide vaccine, 23 valent Declan Swanson Other [facility] Payers Date Payer Category Payer Self-pay [id number] 2019 Unknown MMO MMO MEDICARE SUPPLEMENT [id number] 2019-Present [phone] [address] [place] [address] Indemnity [id number] 2019 Unknown [employer]MO M[employer] MEDICARE SUPPLEMENT [id number] 2019-Present [phone] [address] [place] [address] Indemnity [id number] 2010 Medicare MEDICARE MEDICAR E A AND B [id number] 2010-Present [phone] [address] [id number] Medicare [id number]. [id number] 2010 Medicare MEDICARE MEDICAR E A AND B [id number] 2010-Present [phone] [address] [id number] Medicare [id number]. [id number] 1959 Medicare [id number] 2.16.840.1.790608.19 1959 Unknown [id number] 2.16.840.1.595155.19 1945 Unknown [id number] 2.16.840.1.002143.3.579.2.593 1945 Unknown [id number] 2.16.840.1.821383.3.579.2.593 1945 Unknown [id number] 2.16.840.1.617376.3.579.2.593 1945 Unknown [id number] 2.16.840.1.088953.3.579.2.593 1945 Unknown [id number] 2.16.840.1.189500.3.579.2.593 1945 Unknown [id number] 2.16.840.1.724396.3.579.2.593 1945 Unknown [id number] 2.16.840.1.212031.3.579.2.593 1945 Unknown [id number] 2.16.840.1.422118.3.579.2.593 1945 Unknown [id number] 2.16.840.1.711570.3.579.2.593 1945 Unknown [id number] 2.16.840.1.160457.3.579.2.593 1945 Unknown [id number] 2.16.840.1.148096.3.579.2.593 1945 Unknown [id number] 2.16.840.1.071297.3.579.2.593 1945 Unknown [id number] 2.16.840.1.701249.3.579.2.593 1945 Unknown [id number] 2.16.840.1.640098.3.579.2.593 1945 Unknown [id number] 2.16.840.1.772741.3.579.2.593 1945 Unknown [id number] 2.16.840.1.729174.3.579.2.593 1945 Unknown [id number] 2.16.840.1.292832.3.579.2.593 1945 Unknown [id number] 2.16.840.1.525835.3.579.2.593 1945 Unknown [id number] 2.16.840.1.892900.3.579.2.1259 1945 Unknown [id number] 2.16.840.1.235728.3.579.2.1259 1945 Unknown [id number] 2.16.840.1.826694.3.579.2.1259 1945 Unknown [id number] 2.16.840.1.827178.3.579.2.1259 1945 Unknown [id number] 2.16.840.1.464135.3.579.2.1259 Unknown [id number] 2.16840.1.782697.19 Unknown [facility] Health Claims [id number] Unknown [id number] 2.16840.1.655717.3.579.2.531 Unknown [id number] 2.16840.1.187343.3.579.2.531 Unknown [id number] 2.16840.1.648633.3.579.2.531 Social History Date Type Detail Facility Start: 06-18-2013 End: 06-05-2023 Tobacco smoking status NHIS Ex-smoker [facility] End: 12-11-2012 History of tobacco use Current smoker [facility] End: 12-11-2012 History of tobacco use Cigar Smoker [facility] Start: 06-18-2013 End: 06-05-2023 Tobacco use and exposure Smokeless tobacco non-user [facility] Start: 09-18-2020 End: 12-08-2023 Alcohol intake Ex-drinker (finding) [facility] Start: 1945 Sex Assigned At Not on file [facility] Start: 06-15-2021 End: 12-31-2021 Exposure to SARS-CoV-2 (event) Not sure [facility] Work Phone: Start: 06-25-2021 End: 06-05-2023 Sex Assigned At [facility] Start: 1945 Sex Assigned At Male F [facility] Start: 06-25-2021 End: 06-05-2023 History of Social function [facility] PHQ2 Score 0 [facility] c Goals Date Patient Goal Desired Activity /State Personal health goal Clinical Notes 04-21-2021 to 12-19-2023 Telephone Encounter - Claire Reeves RN - 12/19/2023 2:09 PM EDTTelephone Encounter - Claire Reeves RN - 12/19/2023 2:09 PM EDTTelephone Encounter - Bryan Dwyer - 12/12/2023 2:57 PM EDT Note Date & Type Note Facility 12-19-2023 Telephone encounter Note Images from the original note were not included. Spoke with patients . Relayed Dr. Pineda message below. Patient is NOT taking Jardiance due to cost. Will adjust Lasix and recheck BNP. Appt scheduled end of Dec with Shama. Patient is requesting change to [place] instead of [place]. Will contact us if no improvement. Venkat Evans V, MD P Avw Card Nurse; P Avw Card Tobacco Sample Puller Tell pt pro bnp is high suggesting fluid overload I started Jardiance so make sure he is taking Increase lasix to 40 mg B ID for 5 days then once a day Recheck pro bnp in 4 weeks Reinforce salt restriction Please schedule earlier appt with GERMAIN in 4-8 weeks to followup Please tell pt to notify us if he is not improving [facility] 12-19-2023 Miscellaneous Notes Images from the original note were not included. Spoke with patients . Relayed Dr. Pineda message below. Patient is NOT taking Jardiance due to cost. Will adjust Lasix and recheck BNP. Appt scheduled end of Dec with Shama. Patient is requesting change to [place] instead of [place]. Will contact us if no improvement. Venkat Evans V, MD P Avw Card Nurse; P Avw Card Tobacco Sample Puller Tell pt pro bnp is high suggesting fluid overload I started Jardiance so make sure he is taking Increase lasix to 40 mg B ID for 5 days then once a day Recheck pro bnp in 4 weeks Reinforce salt restriction Please schedule earlier appt with [facility]ER[facility] in 4-8 weeks to followup Please tell pt to notify us if he is not improving documented in this encounter [facility] 12-12-2023 Telephone encounter Note Documentation scanned into EP outside database Scanned INR report into epic [facility] 12-12-2023 Miscellaneous Notes Documentation scanned into EP outside database Scanned INR report into epic documented in this encounter [facility] 12-08-2023 Note HNO ID: [id number] Author: VENKAT EVANS MD Service: ? Author Type: Physician Type: Progress Notes Filed: 12/08/2023 11:39 Note Text: Referring Physician: Venkat Evans [id number] [facility] [address] Primary Care Physician: DO Jorge Unger Ryan is a 78 year old male that presents today for followup of Mild CAD by cath Diabetes mellitus controlled Chronic diastolic CHF P atrial fibrillation s/p PVI Persistent a fib noted on last visit and continued Rate intrinsically controlled No near syncope Does not check HR routinely Intermittent edema controlled mostly Weight : stable Last pro bnp 2020 low Feels tired a lot ; could be better Stairs becoming difficult ASSESSMENT/PLAN: 1. Chronic diastolic heart failure (HCC) - ICD9: 428.32, ICD10: I50.32 (primary diagnosis) Candidate for SGLT 2 inhibitor Will start Jardiance ; hopefully not cost prohibitive - NT PRO BNP 2. Atrial fibrillation, persistent (HCC) - ICD9: 427.31, ICD10: I48.19 Followup with EP routinely - BASIC METABOLIC PANEL 3. Obesity, Class III, 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) - ICD9: 278.01, ICD10: E66.01 Continue diet 4. Mixed hyperlipidemia - ICD9: 272.2, ICD10: E78.2 Controlled for risk Continue staitn 5. Coronary artery disease involving [place] coronary artery of [place] heart without angina pectoris - ICD9: 414.01, ICD10: I25.10 Mild Venkat Evans MD Current Medications: Current Medications 12/08/2023 DIABETES THERAPIES Medication Dosage Pharm Subclass metFORMIN [...] - Potassium, Oral PHYSICAL EXAMINATION: Vital Signs: BP 142/80 Pulse 88 Wt 118.4 kg (261 lb) SpO2 97% BMI 43.43 kg/m? Body mass index is 43.43 kg/m?. GENERAL: Alert, oriented., Well appearing. No jaundice, anemia, clubbing, or cyanosis. HEENT: no lymphadenopathy. NECK: no JVD, No masses, or thyromegaly. Good carotid upstrokes. no carotid bruit. No lymphadenopathy. CARDIAC: irreg CHEST: Chest clear to auscultation. ABDOMEN: Soft, [...] Date Value 09/18/2020 78 Venkat Evans MD [facility] 12-08-2023 History of Present illness Narrative Images from the original note were not included. Referring Physician: Venkat Evans [id number] [facility] [address] Primary Care Physician: DO Jorge Unger Ryan is a 78 year old male that presents today for followup of Mild CAD by cath Diabetes mellitus controlled Chronic diastolic CHF P atrial fibrillation s/p PVI Persistent a fib noted on last visit and continued Rate intrinsically controlled No near syncope Does not check HR routinely Intermittent edema controlled mostly Weight : stable Last pro bnp 2020 low Feels tired a lot ; could be better Stairs becoming difficult ASSESSMENT/PLAN: 1. Chronic diastolic heart failure (HCC) - ICD9: 428.32, ICD10: I50.32 (primary diagnosis) Candidate for SGLT 2 inhibitor Will start Jardiance ; hopefully not cost prohibitive - NT PRO BNP 2. Atrial fibrillation, persistent (HCC) - ICD9: 427.31, ICD10: I48.19 Followup with EP routinely - BASIC METABOLIC PANEL 3. Obesity, Class III, 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) - ICD9: 278.01, ICD10: E66.01 Continue diet 4. Mixed hyperlipidemia - ICD9: 272.2, ICD10: E78.2 Controlled for risk Continue staitn 5. Coronary artery disease involving [place] coronary artery of [place] heart without angina pectoris - ICD9: 414.01, ICD10: I25.10 Mild Venkat Evans MD Current Medications: Current Medications 12/08/2023 DIABETES THERAPIES Medication Dosage Pharm Subclass metFORMIN [...] - Potassium, Oral PHYSICAL EXAMINATION: Vital Signs: BP 142/80 Pulse 88 Wt 118.4 kg (261 lb) SpO2 97% BMI 43.43 kg/m Body mass index is 43.43 kg/m . GENERAL: Alert, oriented., Well appearing. No jaundice, anemia, clubbing, or cyanosis. HEENT: no lymphadenopathy. NECK: no JVD, No masses, or thyromegaly. Good carotid upstrokes. no carotid bruit. No lymphadenopathy. CARDIAC: irreg CHEST: Chest clear to auscultation. ABDOMEN: Soft, [...] Venkat Evans MD documented in this encounter [facility] 11-15-2023 Telephone encounter Note Documentation scanned into EP outside database Scanned INR results into epic [facility] 11-15-2023 Miscellaneous Notes Documentation scanned into EP outside database Scanned INR results into epic documented in this encounter [facility] 09-19-2023 Telephone encounter Note Documentation scanned into EP outside database Scanned INR results into epic [facility] 09-19-2023 Miscellaneous Notes Documentation scanned into EP outside database Scanned INR results into epic documented in this encounter [facility] 08-22-2023 Telephone encounter Note Documentation scanned into EP outside database Scanned INR results into epic [facility] 08-22-2023 Miscellaneous Notes Documentation scanned into EP outside database Scanned INR results into epic documented in this encounter [facility] 07-25-2023 Telephone encounter Note Documentation scanned into EP outside database Scanned INR results into Epic [facility] 07-25-2023 Miscellaneous Notes Documentation scanned into EP outside database Scanned INR results into Epic documented in this encounter [facility] 07-04-2023 History of Present illness Narrative Images from the original note were not included. [facility] Department of Cardiovascular Medicine SECTION OF CARDIAC PACING and ELECTROPHYSIOLOGY OUTPATIENT VISIT DATE July 04, 2023 OUTPATIENT VISIT TYPE ESTABLISHED PRIMARY CARE PHYSICIAN: Declan Swanson (Peggy) [address] [place] [address] CHIEF COMPLAINT: Cardiology follow up HISTORY OF [...] MEDIAL&LAT COMPARTMENTS 2000 Left Knee CARDIAC CATH 2010 CARDIAC CATH 06/16/2015 COLONOSCOPY OPEN CHONDROPLASTY W/ [...] with more than 50% of the total [id number]-ga-ysvm time of the visit in counseling / coordination of care. documented in this encounter [facility] 07-04-2023 Note HNO ID: [id number] Author: SHAMA IBANEZ PA-C Service: ? Author Type: Physician Storage Engineer Type: Progress Notes Filed: 07/04/2023 10:19 Note Text: [facility] Department of Cardiovascular Medicine SECTION OF CARDIAC PACING and ELECTROPHYSIOLOGY OUTPATIENT VISIT DATE July 04, 2023 OUTPATIENT VISIT TYPE ESTABLISHED PRIMARY CARE PHYSICIAN: Declan Swanson (Peggy) [address] [place] [address] CHIEF COMPLAINT: Cardiology follow up HISTORY OF [...] MEDIALANDLAT COMPARTMENTS 2001 Left Knee CARDIAC CATH 2010 CARDIAC CATH 06/16/2015 COLONOSCOPY OPEN CHONDROPLASTY W/ [...] wheezing or rhonchi (more content not included)... [facility] 07-04-2023 Instructions Shama Ibanez PA-C - 07/04/2023 9:58 AM EDT - No changes to medications today - Will have you see Dr Evans with echo as scheduled - Will have you see Dr Denton in 1 year - Call us sooner with any questions or concerns Shama Ibanez PA-C documented in this encounter [facility] 06-27-2023 Miscellaneous Notes Documentation scanned into EP outside database Scanned INR results into [employer] documented in this encounter [facility] 06-05-2023 Note HNO ID: [id number] Author: VENKAT EVANS MD Service: ? Author [...] Date Value 09/18/2020 78 Venkat Evans MD [facility] 06-05-2023 History of Present illness Narrative Referring [...] Venkat Evans MD documented in this encounter [facility] 05-30-2023 Miscellaneous Notes Documentation scanned into EP outside database Scanned into [employer] documented in this encounter [facility] 05-02-2023 Miscellaneous Notes Documentation scanned into EP outside database documented in this encounter [facility] 04-06-2023 Miscellaneous Notes Outside medical records (INR report 04/04/2023) scanned into [employer] and shared [address]. documented in this encounter [facility] 03-23-2023 Evaluation note Encounter Date Diagnosis [...] further antibiotics necessary Call w/ increased tenderness [facility] Other [id number] Miscellaneous Notes* Telephone Encounter - Suman Garvin - 02/07/2023 9:31 AM EST Outside medical records (INR report 02/07/2023) scanned into [employer] and [employer]. [facility] Miscellaneous Notes* Telephone Encounter - Suman Garvin - 01/11/2023 7:24 AM EDT Outside medical records (INR Report 01/10/2023) scanned into [employer] [address]. [facility]23 Miscellaneous Notes* Telephone Encounter - Suman Garvin - 01/05/2023 6:48 AM EDT Images from the original note were not included. Outside medical records (INR report 12/27/2022) scanned into [employer]. [facility]24[facility]2023 Evaluation note* Encounter Date Diagnosis Assessment [...] but no change in treatment is necessary [facility] 10-23-2023 Evaluation note* Encounter Date Diagnosis [...] BS but no adjustment in treatment necessary [facility] Other 10-13-2023 Miscellaneous Notes* Telephone Encounter - Bobbi Sahu - 12/23/2022 7:48 AM EDT Patient records received via electronic fax. Uploaded to [email or web address]. INR 12.20.22 Bobbi Sahu [facility]10-[facility]-2023 Evaluation note* Encounter Date Diagnosis Assessment [...] Above note written by Christian Damon MA, Maintenance Job Titles. Edited and approved by Dr. Ruben Celis MD. 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 No bleeding complications Dec, Type 2 diabetes [...] use, the patient reduces the risk for VT, CVA, HTN, cardiac dysrhythmias and sudden cardiac deaths.The patient is also aware of the association between CHRISTIAN and morning headaches, daytime somnolence, fatigue and obesity Unable to tolerate treatment, noncompliant Aware this would likely prevent restorationism of NSR Dec, Chronic venous insufficiency of [...] as needed. 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 Uploaded to [employer]. INR 8 Bobbi Sahu [facility]08-16-2023 Evaluation note* Encounter Date Diagnosis Assessment [...] note writ ten by Christian Damon MA, Maintenance Job Titles. Edited and approved by Dr. Ruben Celis MD. [facility] Other 08-03-2023 Miscellaneous Notes* Telephone Encounter - Doug Sahuhae - 10/13/2022 3:54 PM EDT Patient records received via electronic fax. Uploaded to [employer]. INR 8 Bobbi Sahu documented in [facility]08-03-2023 Evaluation note* Encounter Date Diagnosis Assessment [...] Microalbumin, Dilated eye exam and Foot exam [facility] 08-02-2023 Evaluation note* Encounter Date Diagnosis [...] with me on a as needed basis. [facility] Other 07-07-2023 Miscellaneous Notes* Telephone Encounter - Suman Garvin - 09/16/2022 7:48 AM EDT Images from the original note were not included. Outside medical records (INR report) scanned into shared EP drive. documented in [facility]07-06-2023 Evaluation note* Encounter Date Diagnosis Assessment [...] Microalbumin, Dilated eye exam and Foot exam [facility] 06-28-2023 Miscellaneous Notes* Telephone Encounter - Orly Olivo MA - 09/07/2022 11:30 AM EDT Received lab results from [facility]. No upcoming appts. Sent for scanning. documented in this encounterG[facility] Hospital06-22-2023 Miscellaneous Notes* Telephone Encounter - Bobbi Sahu - 09/01/2022 2:39 PM EDT Patient records received via electronic fax. 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 Aug, Pulmonary nodule, right (ICD-10 - R91.1) [...] use, the patient reduces the risk for VT, CVA, HTN, cardiac dysrhythmias and sudden cardiac [...] High risk medication use (ICD-10 - Z79.899) [facility] 05-11-2023 Miscellaneous Notes* Telephone Encounter - Bobbi Sahu - 07/21/2022 12:00 PM EDT Patient records received via electronic fax. Uploaded to [employer]. INR 5.11.23 Bobbi Sahu documented in this encounterG[facility]05-04-2023 Miscellaneous Notes* Telephone Encounter - Kayla [...] this year with me documented in this encounterG[facility]04-17-2023 Miscellaneous Notes* Telephone Encounter - Chiquita Soares RN - 06/27/2022 2:55 PM EDT Spoke to patient per MD request. Per Dr Denton: Can you call him and let him know I got his ECG printed out the way I wanted, and I do think he was in atrial fib on Monday at [facility]? Tell him we are not changing anything now, but I wanted to follow up with him about this. Thanks TD Chiquita Soares RN documented in this encounterG[facility]04-17-2023 Evaluation note* Encounter Date Diagnosis Assessment [...] - aorta is borderline dilated 4.0 cm. [facility] 04-14-2023 History of Present illness Narrative* [...] (Hypertension) Dyslipidemia Atrial Fibrillation (Hcc) Atherosclerosis of [place] Coronary Artery of [place] Heart Without Angina Pectoris Diabetes Mellitus Type [...] phrases that may beinappropriate. documented in this encounterG[facility]04-13-2023 Miscellaneous Notes* Telephone Encounter - Bobbi Sahu - 06/23/2022 11:30 AM EDT Patient records received via electronic fax. Uploaded to [employer]. INR 4.13.23 Bobbi Sahu documented in this [facility]03-17-2023 Miscellaneous Notes* Telephone Encounter - Bobbi Sahu - 05/27/2022 9:01 AM EDT Patient records received via electronic fax. 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 May, CHRISTIAN (obstructive sleep apnea) (ICD-10 - [...] past 2 years. No further screening required. [facility] Other 01-10-2023 Evaluation note* Encounter Date Diagnosis [...] which are reviewed at the office visit. [facility] Other [id number] Miscellaneous Notes* Telephone Encounter - Bobbi Sahu - 03/10/2022 9:28 AM EST Images from the original note were not included. Patient records received via electronic fax. Uploaded to [employer] Bobbi Sahu documented in this encounterG[facility]12-07-2022 NotePROCEDURE: XR FOOT LT MIN 3 [...] Electronically authenticated by: JAMIE FAROOQ Date: 2022-02-16 09:55[facility]12-07-2022 NotePROCEDURE: XR FOOT LT MIN 3 [...] Electronically authenticated by: JAMIE FAROOQ Date: 2022-02-16 09:55[facility]11-22-2022 Miscellaneous Notes* Telephone Encounter - Bobbi Sahu - 02/01/2022 4:02 PM EST Images from the original note were not included. Patient records received via electronic fax. Uploaded to [employer] / [employer] Bobbi Sahu documented in this [facility]11-10-2022 Miscellaneous Notes* Telephone Encounter - Bobbi Sahu - 01/20/2022 4:51 PM EST Patient records received via electronic fax. Uploaded to [employer] Bobbi Sahu documented in this [facility]11-08-2022 Miscellaneous Notes* Telephone Encounter - Bobbi Sahu - 01/18/2022 2:49 PM EST Images from the original note were not included. Patient records received via electronic fax. Uploaded to [employer] Bobbi Sahu documented in this [facility]10-26-2022 Miscellaneous Notes* Telephone Encounter - Bobbi Sahu - 01/05/2022 8:57 AM EDT Images from the original note were not included. Patient records received via electronic fax. Uploaded to [employer] / [employer] Bobbi Sahu documented in this [facility]10-25-2022 Miscellaneous Notes* Telephone Encounter - Bobbi Sahu - 01/04/2022 4:17 PM EDT Images from the original note were not included. Patient records received via electronic fax. Uploaded to shared drive Bobbi Sahu documented in this encounterGlen[facility] Hospital10-21-2022 History of Present illness Narrative* Venkat Evans V, MD - 12/31/2021 1:00 PM EDT Referring Physician: Sara Carlson [id number] [facility] [address] Primary Care Physician: DO Jorge Unger Ryan [...] Per EP 3. Coronary artery disease involving [place] coronary artery of [place] heart without angina pectoris- ICD9: 414.01, ICD10: [...] 78 Venkat Evans MD documented in this [facility]10-11-2022 Miscellaneous Notes* Telephone Encounter - Bobbi Sahu - 12/21/2021 4:17 PM EDT Images from the original note were not included. Patient records received via electronic fax. Uploaded to [employer]. Bobbi Sahu documented in this [facility]09-27-2022 Miscellaneous Notes* Telephone Encounter - Bobbi Sahu - 12/07/2021 2:04 PM EDT Patient records received via electronic fax. Uploaded to [employer] / [employer] Bobbi Sahu documented in this [facility]04-28-2022 Miscellaneous Notes* Telephone Encounter - Suman Garvin - 07/08/2021 4:17 PM EDT Images from the original note were not included. Outside medical records (INR report 07/08/2021) scanned into shared [employer]. documented in this [facility]04-15[facility] History of Present illness Narrative* Ruben [...] (Hypertension) Dyslipidemia Atrial Fibrillation (Hcc) Atherosclerosis of [place] Coronary Artery of [place] Heart Without Angina Pectoris Diabetes Mellitus Type [...] furosemide, a statin. INR is managed by [facility] and is checked monthly. No problems [...] today in the office shows: NSR [id number] Low voltage P waves Impression and plan dictated separately; to be transcribed. Ruben Denton MD CC - Declan Swanson, DO This clinical note has been produced using speech recognition software and may contain errors related to that system including grammar, punctuation, spelling, gender and words and phrases that may beinappropriate. documented in this encounterGlen[facility] Hospital04-15-2022 History of Present illness Narrative* Sararamon Carlson APRN.RELIEF MAP MODELER - 06/25/2021 1:25 PM EDT Images from the original note were not included. [facility] Department of Cardiovascular Medicine SECTION OF CLINICAL CARDIOLOGY OUTPATIENT VISIT DATE June 25, 2021 OUTPATIENT VISIT TYPE ESTABLISHED PRIMARY CARE PHYSICIAN: Declan Swanson ([facility]) [address] [place] [address] CHIEF COMPLAINT: follow up HISTORY OF PRESENT ILLNESS: Mr. Davis is a 76 year old male who presents today for a cardiovascular medicine followed by Dr. [facility] & Dr. Denton for non occlusive CAD , chronic diastolic heart failure, paroxysmal atrial fibrillation (s/p ablation 2019; [id number]: 3%; age, hypertension, diabetes type II), Other [...] Right Knee ARTHRP KNE CONDYLE&PLATU MEDIAL&LAT COMPARTMENTS 2001 Left Knee CARDIAC CATH 2009 [...] failure, paroxysmal atrial fibrillation (s/p ablation 2019; [id number]: 3%; age, hypertension, diabetes type II), Other [...] with more than 50% of the total [id number] time of the visit in counseling / coordination of care. CONTACT INFORMATION: Sara Carlson APRN.RELIEF MAP MODELER, 06/25/21 [facility] Second Floor [address] [place] [address] documented in this encounterGlenbeigh Hospital03-31-2022 Miscellaneous Notes* Telephone Encounter - Suman Garvin - 06/10/2021 1:12 PM EDT Images from the original note were not included. Outside medical records (INR results 06/10/2021) scanned into shared [facility] [address] drive. documented in this encounterGlen[facility]igh Hospital03-22-2022 Miscellaneous Notes* Telephone Encounter - Kim Caruso RN - 06/01/2021 4:26 PM EDT Message left. Yes, he needs EKG. Ordered. (Not sure why he has 2 appts. on same day with same dept). Kim Caruso RN * Telephone Encounter - Angela Collazo - 05/31/2021 11:30 AM EDT May 31, 2021 Patient Name:PATIENT Jorge Davis Contact Information: [phone] Last visit with EP Provider: 09/18/2020 Reason for Call: Patient would like to know if he should be getting an EKG prior to his appointment06/25. Last EKG was 09/18/20. Physician: Feliz Lipscomb MD Thank you, Angela Collazo The patient was informed that our caregivers are afforded 72 business hours to review and respond telephone messages. documented in this encounterGlenbeigh Hospital03-10-2022 Evaluation note* Encounter Date Diagnosis Assessment [...] us and we will see him sooner. [facility] Other 02-09-2022 Miscellaneous Notes* Telephone Encounter - Jessika Escobar - 04/21/2021 4:00 PM EST Received outside records - uploaded to Scanned Documents in [employer] through onbase Appointment on Visit date not found Last appointment with this provider 04/01/2021 Last OV in this dept 04/19/2019 Jessika Escobar documented in this encounterGlenbeigh HospitalEvaluation note* Diagnosis Atrial fibrillation, persistent (HCC)- Primary Atrial fibrillation [facility] Diagnosis Atrial fibrillation, persistent (HCC)- Primary Atrial fibrillation S/P ablation of atrial fibrillation Other postprocedural status Obesity, Class III, BMI >= 40 Morbid obesity Controlled type 2 diabetes mellitus without complication, without long-term current use of insulin (HCC) CHRISTIAN (obstructive sleep apnea) Obstructive sleep apnea (adult) (pediatric) Atherosclerosis of [place] coronary artery of [place] heart without angina pectoris Encounter for current long-term use of anticoagulants Long-term (current) use of anticoagulants documented [facility] encounter [facility]* Diagnosis Acute on chronic diastolic heart failure (HCC)- Primary Acute on chronic diastolic heart failure Primary hypertension Unspecified essential hypertension [facility] encounter [facility] Diagnosis Chronic diastolic heart failure (HCC)- Primary Chronic diastolic heart failure Paroxysmal atrial fibrillation (HCC) Atrial fibrillation Coronary artery disease involving [place] coronary artery of [place] heart without angina pectoris Controlled type 2 diabetes mellitus without complication, without long-term current use of insulin (HCC) documented in this encounter [facility] noteNo InformationNortGigaPan Other Evaluation note* Diagnosis Atrial fibrillation, persistent [...] BMI >= 40 Morbid obesity Atherosclerosis of [place] coronary artery of [place] heart without angina pectoris documented in this encounter [facility] noteNoexcentos Other Evaluation noteNo assessment information available [facility] Work Phone: evaluumwdz note* Diagnosis Chronic diastolic heart failure (HCC)- Primary Chronic diastolic heart failure Atrial fibrillation, persistent (HCC) Atrial fibrillation Obesity, Class III, 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) Morbid obesity Mixed hyperlipidemia documented in this encounter [facility]* Diagnosis Atrial fibrillation, persistent (HCC)- Primary Atrial fibrillation S/P ablation of atrial fibrillation Other postprocedural status On continuous oral anticoagulation Long-term (current) use of anticoagulants documented in this encounter [facility] note* Diagnosis Onset Date Resolution Status ASHD (arteriosclerotic heart disease) acute Acute bronchitis due to other specified organisms noneactive Contact dermatitis acute Type 2 diabetes mellitus with hyperglycemia acute [facility] Work Phone: Evaluation note* Diagnosis Onset Date [...] acute Medicare annual wellness visit, subsequent noneactive [facility] Work Phone: evaluation note* Diagnosis Chronic diastolic heart failure (HCC)- Primary Chronic diastolic heart failure Atrial fibrillation, persistent (HCC) Atrial fibrillation Obesity, Class III, 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) Morbid obesity Mixed hyperlipidemia Coronary artery disease involving [place] coronary artery of [place] heart without angina pectoris documented in this encounter [facility]* Diagnosis Onset Date Resolution Status Afib acute ASHD (arteriosclerotic heart disease) acute Hypercholesteremia acute CHRISTIAN (obstructive sleep apnea) acute Traumatic hematoma of right lower leg with infection acute Type 2 diabetes mellitus with diabetic polyneuropathy acute Type 2 diabetes mellitus with hyperglycemia acute Venous insufficiency of both lower extremities acute [facility] Work Phone: Hisglwk general Narrative - Reported* Type Description Date [...] porstate sx 2017 Hospitalization History see above [facility] Other Hishede general Narrative - Reported* Type Description Date [...] heart ablation 10/2019 Surgical History Prostate surgery 2017 Surgical History Fistulotomy 1975 Surgical History Partial Medial menisectomy Surgical History [...] heart cath 06/2015 Hospitalization History see above [facility] Other History general N[facility]ative - [facility]ortHoly [facility] Other Reason for referral (narrative)* Outpatient Procedure (Routine) - Pending Review Specialty Diagnoses / Procedures Referred By Carmine mckee Referred To [facility] [place] Diagnoses Atrial fibrillation, persistent (HCC) Procedures ECG COMPLETE ECG ROUTINE ECG W/LEAST 12 LDS W/I&R Ruben Denton MD [address] [place] [address] [id number] Referral ID Status Reason Start Date Expiration Date Visits Requested Visits Authorized [id number] Pending Review Auto-Generat ed Referral 06/01/2021 06/01/2022 1 1 [facility] for referral (narrative)* Outpatient Procedure (Routine) - Closed Specialty Diagnoses / Procedures Referred By Carmine mckee Referred To Contact [facility] Diagnoses Atrial fibrillation, persistent (HCC) Procedures ECG COMPLETE ECG ROUTINE ECG W/LEAST 12 LDS W/I&R Rubne Denton MD [address] [place] [address] [address] Referral ID Status Reason Start Date Expiration Date V isits Requested Visits Authorized [id number] Closed Auto-Generate d Referral 06/25/2021 06/25/2022 1 1 [facility] for referral (narrative)* Outpatient Procedure (Routine) - Authorized Specialty Diagnoses / Procedures Referred By Contac t Referred To Contact [facility] [place] Diagnoses Chronic diastolic heart failure (HCC) Procedures ECHO ECHO TTHRC R-T 2D W/WOM-MODE COMPL SPEC&[place] [address] [place] [address] [address] Referral ID Status Reason Start Date Expiration Date Visits Requested Visits Authorized [id number] Authorized Auto-Generat ed Referral 12/31/2022 1 1 [facility] for referral (narrative)* Outpatient Procedure (Routine) - Pending Review Specialty Diagnoses / Procedures Referred By Contac t Referred To Contact [facility] [place] Diagnoses Atrial fibrillation, persistent (HCC) Procedures ECG COMPLETE ECG ROUTINE ECG W/LEAST 12 LDS W/I&R Ruben Denton MD [address] [place] [address] [address] Referral ID Status Reason Start Date Expiration Date Visits Requested Visits Authorized [id number] Pending Review Auto-Generat ed Referral 06/24/2022 06/24/2023 1 1 [facility] for referral (narrative)* Outpatient Procedure (Routine) - Authorized Specialty Diagnoses / Procedures Referred By Contac t Referred To Contact [facility] Diagnoses Chronic diastolic heart failure (HCC) Procedures ECHO ECHO TTHRC R-T 2D W/WOM-MODE COM[place] SPEC&[place] [address] [place] [address] [id number] [place] [address] Referral ID Status Reason Start Date Expiration Date Visits Requested Visits Authorized [id number] Authorized Auto-Generat ed Referral 06/05/2023 06/04/2024 1 1 [facility] Summary Purpose Family History Relationship Condition [...] disease Unknown Diabetes mellitus Unknown Hypertension Unknown Relationship Condition Age at Onset Recorded Date/T chris father Diabetes mellitus Unknown Malignant neoplasm Unknown mother Diabetes mellitus Unknown Coronary artery disease Unknown Unknown family member Unknown mother Heart disease Unknown Diabetes mellitus Unknown Hypertension Unknown Advance Directives Documents on File Type Date Recorded Patient Early Childhood Education Specialist 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 Note HNO ID: [id number] Author: Sarah waters (Venus) Williams Service: ? Author Type: Radiology Aide Type: Anesthesia Procedure Notes Filed: 10/23/2019 9:12 [...] not included)... Procedure Findings Note HNO ID: [id number] Author: Sarah Kramer (Aa) Service: ? Author Type: Radiology Aide Type: Anesthesia Procedure Notes Filed: 10/23/2019 9:12 [...] lower extremities Medicare annual wellness visit, subsequent Chief Complaint Amb Documentation R Leg Pain Reason for Visit Afib ASHD (arteriosclerotic heart disease) Hypercholesteremia CHRISTIAN (obstructive sleep apnea) Traumatic hematoma of right lower leg with infection Type 2 diabetes mellitus with diabetic polyneuropathy Type 2 diabetes mellitus with hyperglycemia Venous insufficiency of both lower extremities Additional Source Comments (unrecognized sect ion and content) No Status Records FoundNo Status Records FoundNo Status Records FoundNo Status Records FoundNo Status Records FoundNo Status Records FoundNo Status Records Found INFORMATION SOURCE (unrecogn ized section and content) DATE CREATED AUTHOR 12/24/2019 [facility] DATE CREATED AUTHOR AUTHOR'S ORGANIZ ATION 02/29/2020 [facility] DATE CREATED AUTHOR AUTHOR'S ORGANIZ ATION 08/19/2022 [facility] DATE CREATED AUTHOR AUTHOR'S ORGANIZ ATION 12/21/2022 [facility] DATE CREATED AUTHOR AUTHOR'S ORGANIZ ATION 10/06/2023 [facility] DATE CREATED AUTHOR AUTHOR'S ORGANIZ ATION 12/09/2023 [facility] DATE CREATED AUTHOR AUTHOR'S ORGANIZ ATION 12/21/2023 [facility] Source Comments (unrecognize d section and content) In the event this informatio n is protected by the Federal Confidentiality of Alcohol and Drug Abuse Patient Records regulations: The Federal rules restrict any use of the information to criminally investigate or prosecute any alcohol or drug abuse patient.[facility] HospitalIn the event this information is protected by the Federal Confidentiality of Alcohol and Drug Abuse Patient Records regulations: The Federal rules restrict any use of the information to criminally investigate or prosecute any alcohol or drug abuse patient.[facility] HospitalIn the event this information is protected by the Federal Confidentiality of Alcohol and Drug Abuse Patient Records regulations: The Federal rules restrict any use of the information to criminally investigate or prosecute any alcohol or drug abuse patient.[facility] HospitalIn the event this information is protected by the Federal Confidentiality of Alcohol and Drug Abuse Patient Records regulations: The Federal rules restrict any use of the information to criminally investigate or prosecute any alcohol or drug abuse patient.[facility] HospitalIn the event this information is protected by the Federal Confidentiality of Alcohol and Drug Abuse Patient Records regulations: The Federal rules restrict any use of the information to criminally investigate or prosecute any alcohol or drug abuse patient.[facility] HospitalIn the event this information is protected by the Federal Confidentiality of Alcohol and Drug Abuse Patient Records regulations: The Federal rules restrict any use of the information to criminally investigate or prosecute any alcohol or drug abuse patient.[facility] HospitalIn the event this information is protected by the Federal Confidentiality of Alcohol and Drug Abuse Patient Records regulations: The Federal rules restrict any use of the information to criminally investigate or prosecute any alcohol or drug abuse patient.[facility] HospitalIn the event this information is protected by the Federal Confidentiality of Alcohol and Drug Abuse Patient Records regulations: The Federal rules restrict any use of the information to criminally investigate or prosecute any alcohol or drug abuse patient.[facility] HospitalIn the event this information is protected by the Federal Confidentiality of Alcohol and Drug Abuse Patient Records regulations: The Federal rules restrict any use of the information to criminally investigate or prosecute any alcohol or drug abuse patient.[facility] HospitalIn the event this information is protected by the Federal Confidentiality of Alcohol and Drug Abuse Patient Records regulations: The Federal rules restrict any use of the information to criminally investigate or prosecute any alcohol or drug abuse patient.[facility] HospitalIn the event this information is protected by the Federal Confidentiality of Alcohol and Drug Abuse Patient Records regulations: The Federal rules restrict any use of the information to criminally investigate or prosecute any alcohol or drug abuse patient.[facility] HospitalIn the event this information is protected by the Federal Confidentiality of Alcohol and Drug Abuse Patient Records regulations: The Federal rules restrict any use of the information to criminally investigate or prosecute any alcohol or drug abuse patient.[facility] HospitalIn the event this information is protected by the Federal Confidentiality of Alcohol and Drug Abuse Patient Records regulations: The Federal rules restrict any use of the information to criminally investigate or prosecute any alcohol or drug abuse patient.[facility] HospitalIn the event this information is protected by the Federal Confidentiality of Alcohol and Drug Abuse Patient Records regulations: The Federal rules restrict any use of the information to criminally investigate or prosecute any alcohol or drug abuse patient.[facility] HospitalIn the event this information is protected by the Federal Confidentiality of Alcohol and Drug Abuse Patient Records regulations: The Federal rules restrict any use of the information to criminally investigate or prosecute any alcohol or drug abuse patient.[facility] HospitalIn the event this information is protected by the Federal Confidentiality of Alcohol and Drug Abuse Patient Records regulations: The Federal rules restrict any use of the information to criminally investigate or prosecute any alcohol or drug abuse patient.[facility] HospitalIn the event this information is protected by the Federal Confidentiality of Alcohol and Drug Abuse Patient Records regulations: The Federal rules restrict any use of the information to criminally investigate or prosecute any alcohol or drug abuse patient.[facility] HospitalIn the event this information is protected by the Federal Confidentiality of Alcohol and Drug Abuse Patient Records regulations: The Federal rules restrict any use of the information to criminally investigate or prosecute any alcohol or drug abuse patient.[facility] HospitalIn the event this information is protected by the Federal Confidentiality of Alcohol and Drug Abuse Patient Records regulations: The Federal rules restrict any use of the information to criminally investigate or prosecute any alcohol or drug abuse patient.[facility] HospitalIn the event this information is protected by the Federal Confidentiality of Alcohol and Drug Abuse Patient Records regulations: The Federal rules restrict any use of the information to criminally investigate or prosecute any alcohol or drug abuse patient.[facility] HospitalIn the event this information is protected by the Federal Confidentiality of Alcohol and Drug Abuse Patient Records regulations: The Federal rules restrict any use of the information to criminally investigate or prosecute any alcohol or drug abuse patient.[facility] ClinicIn the event this information is protected by the Federal Confidentiality of Alcohol and Drug Abuse Patient Records regulations: The Federal rules restrict any use of the information to criminally investigate or prosecute any alcohol or drug abuse patient.[facility] HospitalIn the event this information is protected by the Federal Confidentiality of Alcohol and Drug Abuse Patient Records regulations: The Federal rules restrict any use of the information to criminally investigate or prosecute any alcohol or drug abuse patient.[facility] HospitalIn the event this information is protected by the Federal Confidentiality of Alcohol and Drug Abuse Patient Records regulations: The Federal rules restrict any use of the information to criminally investigate or prosecute any alcohol or drug abuse patient.[facility] HospitalIn the event this information is protected by the Federal Confidentiality of Alcohol and Drug Abuse Patient Records regulations: The Federal rules restrict any use of the information to criminally investigate or prosecute any alcohol or drug abuse patient.[facility] HospitalIn the event this information is protected by the Federal Confidentiality of Alcohol and Drug Abuse Patient Records regulations: The Federal rules restrict any use of the information to criminally investigate or prosecute any alcohol or drug abuse patient.[facility] HospitalIn the event this information is protected by the Federal Confidentiality of Alcohol and Drug Abuse Patient Records regulations: The Federal rules restrict any use of the information to criminally investigate or prosecute any alcohol or drug abuse patient.[facility] HospitalIn the event this information is protected by the Federal Confidentiality of Alcohol and Drug Abuse Patient Records regulations: The Federal rules restrict any use of the information to criminally investigate or prosecute any alcohol or drug abuse patient.[facility] HospitalIn the event this information is protected by the Federal Confidentiality of Alcohol and Drug Abuse Patient Records regulations: The Federal rules restrict any use of the information to criminally investigate or prosecute any alcohol or drug abuse patient.[facility] HospitalIn the event this information is protected by the Federal Confidentiality of Alcohol and Drug Abuse Patient Records regulations: The Federal rules restrict any use of the information to criminally investigate or prosecute any alcohol or drug abuse patient.[facility] HospitalIn the event this information is protected by the Federal Confidentiality of Alcohol and Drug Abuse Patient Records regulations: The Federal rules restrict any use of the information to criminally investigate or prosecute any alcohol or drug abuse patient.[facility] HospitalIn the event this information is protected by the Federal Confidentiality of Alcohol and Drug Abuse Patient Records regulations: The Federal rules restrict any use of the information to criminally investigate or prosecute any alcohol or drug abuse patient.[facility] HospitalIn the event this information is protected by the Federal Confidentiality of Alcohol and Drug Abuse Patient Records regulations: The Federal rules restrict any use of the information to criminally investigate or prosecute any alcohol or drug abuse patient.[facility] HospitalIn the event this information is protected by the Federal Confidentiality of Alcohol and Drug Abuse Patient Records regulations: The Federal rules restrict any use of the information to criminally investigate or prosecute any alcohol or drug abuse patient.[facility] HospitalIn the event this information is protected by the Federal Confidentiality of Alcohol and Drug Abuse Patient Records regulations: The Federal rules restrict any use of the information to criminally investigate or prosecute any alcohol or drug abuse patient.[facility] HospitalIn the event this information is protected by the Federal Confidentiality of Alcohol and Drug Abuse Patient Records regulations: The Federal rules restrict any use of the information to criminally investigate or prosecute any alcohol or drug abuse patient.[facility] HospitalIn the event this information is protected by the Federal Confidentiality of Alcohol and Drug Abuse Patient Records regulations: The Federal rules restrict any use of the information to criminally investigate or prosecute any alcohol or drug abuse patient.[facility] HospitalIn the event this information is protected by the Federal Confidentiality of Alcohol and Drug Abuse Patient Records regulations: The Federal rules restrict any use of the information to criminally investigate or prosecute any alcohol or drug abuse patient.[facility] HospitalIn the event this information is protected by the Federal Confidentiality of Alcohol and Drug Abuse Patient Records regulations: The Federal rules restrict any use of the information to criminally investigate or prosecute any alcohol or drug abuse patient.[facility] HospitalIn the event this information is protected by the Federal Confidentiality of Alcohol and Drug Abuse Patient Records regulations: The Federal rules restrict any use of the information to criminally investigate or prosecute any alcohol or drug abuse patient.[facility] HospitalIn the event this information is protected by the Federal Confidentiality of Alcohol and Drug Abuse Patient Records regulations: The Federal rules restrict any use of the information to criminally investigate or prosecute any alcohol or drug abuse patient.[facility] HospitalIn the event this information is protected by the Federal Confidentiality of Alcohol and Drug Abuse Patient Records regulations: The Federal rules restrict any use of the information to criminally investigate or prosecute any alcohol or drug abuse patient.[facility] HospitalIn the event this information is protected by the Federal Confidentiality of Alcohol and Drug Abuse Patient Records regulations: The Federal rules restrict any use of the information to criminally investigate or prosecute any alcohol or drug abuse patient.[facility] Reason for Visit (unrecogniz ed section [...] Care Teams (unrecognized sec tion and content) Team Status: Active Member Role Status Dates Declan Swanson DO Primary Care Provider Active Team Status: Active Member Role Status Dates Declan Swanson DO Primary Care Provider Active Start: December 05, 2023 Alix Mims MD Attending Provider Active Sta rt: December 05, 2023 Team Status: Active Member Role Status Dates Declan Swanson DO Primary Care Provider Active Start: December 06, 2023 Shaikh Jose Alberto MD Attending Provider Active Sta rt: December 06, 2023 Team Status: Active Member Role Status Dates Declan Swanson DO Primary Care Provider Active Start: December 07, 2023 Shaikh Jose Alberto MD Attending Provider Active Sta rt: December 07, 2023 Team Status: Active Member Role Status Dates Declan Swanson DO Primary Care Provider Active Start: December 08, 2023 Venkat Evans MD Attending Provider Active Start : December 08, 2023 Team Status: Active Member Role Status Dates Declan Swanson DO Primary Care Provider Active Start: December 18, 2023 HOMERO German Attending Provider Active St art: December 18, 2023 Team Status: Inactive Member Role Status Dates Declan Swanson DO Primary Care Provide r, Attending Provider Active Start: December 18, 2023 End: December 18, 2023 Abstract Maker Relationship Specialty Start Date End Date Declan Swanson DO PCP - General Internal Medicine 06/04/13 Abstract Maker Relationship Specialty Start Date End Date Declan Swanson DO PCP - General Internal Medicine 06/04/13 Abstract Maker Relationship Specialty Start Date End Date Declan Swanson DO PCP - General Internal Medicine 06/04/13 Abstract Maker Relationship Specialty Start Date End Date Declan Swanson DO PCP - General Internal Medicine 06/04/13 Abstract Maker Relationship Specialty Start Date End Date Declan Swanson DO PCP - General Internal Medicine 06/04/13 Abstract Maker Relationship Specialty Start Date End Date Declan Swanson DO PCP - General Internal Medicine 06/04/13 Abstract Maker Relationship Specialty Start Date End Date Declan Swanson DO PCP - General Internal Medicine 06/04/13 Abstract Maker Relationship Specialty Start Date End Date Declan Swanson DO PCP - General Internal Medicine 06/04/13 Abstract Maker Relationship Specialty Start Date End Date Declan Swanson DO PCP - General Internal Medicine 06/04/13 Abstract Maker Relationship Specialty Start Date End Date Declan Swanson DO PCP - General Internal Medicine 06/04/13 Team Status: Inactive Member Role Status Dates Declan Swanson DO Primary Care Provider Active Bruce Shine II, MD Attending Provider Active Abstract Maker Relationship Specialty Start Date End Date Declan Swanson DO PCP - General Internal Medicine 06/04/13 Team Status: Inactive Member Role Status Dates Declan Swanson DO Primary Care Provider Active Ruben Celis MD Attending Provider Active Abstract Maker Relationship Specialty Start Date End Date Declan Swanson DO PCP - General Internal Medicine 06/04/13 Abstract Maker Relationship Specialty Start Date End Date Declan Swanson DO PCP - General Internal Medicine 06/04/13 Abstract Maker Relationship Specialty Start Date End Date Declan Swanson DO PCP - General Internal Medicine 06/04/13 Team Status: Inactive Member Role Status Dates Declan Swanson DO Primary Care Provide r, Attending Provider Active Start: June 23, 2023 End: June 23, 2023 Abstract Maker Relationship Specialty Start Date End Date Declan Swanson DO PCP - General Internal Medicine 06/04/13 Abstract Maker Relationship Specialty Start Date End Date Declan Swanson DO PCP - General Internal Medicine 06/04/13 Team Status: Inactive Member Role Status Dates Declan Kiki DO Primary Care Provide r, Attending Provider Active Start: August 09, 2023 End: August 09, 2023 Team Status: Inactive Member Role Status Dates Declan Kiki DO Primary Care Provide r, Attending Provider Active Start: August 21, 2023 End: August 21, 2023 Abstract Maker Relationship Specialty Start Date End Date Declan Swanson DO PCP - General Internal Medicine 06/04/13 Abstract Maker Relationship Specialty Start Date End Date Declan Swanson DO PCP - General Internal Medicine 06/04/13 Goals (unrecognized section and content) Goals may [...] BE BASED ON THE PRIMARY CLINICAL RECORDS. [employer] provides no warranty or guarantee of the accuracy or completeness of information in this document.
== END 2023-12-29 11:53 | disposition home or self-care (01) ==
LOC: WC 11:53
PROVIDERS: PCP Internal Medicine; Visit Provider Podiatrist Foot & Ankle Surgery
DX: I70.232 Atherosclerosis of native arteries of right leg with ulceration of calf (principal); L97.212 Non-pressure chronic ulcer of right calf with fat layer exposed
CPT/HCPCS: G0463

== ENCOUNTER 2024-01-12 12:23 | Outpatient (RCR) | payer MEDICARE, OTHER, SELFPAY | END 2024-02-10 23:59 | disposition home or self-care (01) | LOC: MM 12:23 | PROVIDERS: PCP Internal Medicine; Visit Provider Internal Medicine | DX: Z51.81 Encounter for therapeutic drug level monitoring (principal); Z79.01 Long term (current) use of anticoagulants; I48.91 Unspecified atrial fibrillation | CPT/HCPCS: 85610; G0463 ==

== ENCOUNTER 2024-01-19 10:28 | Outpatient (OUT) | payer MEDICARE, OTHER, SELFPAY | END 2024-01-19 10:29 | disposition home or self-care (01) | LOC: WC 10:29 | PROVIDERS: PCP Internal Medicine; Visit Provider Podiatrist Foot & Ankle Surgery | DX: I70.232 Atherosclerosis of native arteries of right leg with ulceration of calf (principal); L97.212 Non-pressure chronic ulcer of right calf with fat layer exposed | CPT/HCPCS: G0463 ==

== ENCOUNTER 2024-02-02 10:28 | Outpatient (OUT) | payer MEDICARE, OTHER, SELFPAY ==
--- OUTSIDE RECORDS SUMMARY | 2024-02-02 10:46 | XMS_ITS | CCD ---
Author Organization [facility] Care Team Providers Care Stud Setter Name Role Phone Declan Swanson DO Primary Care Provider Bruce Shine II Unavailable Declan Swanson DO Primary Care Provider Declan Swanson DO Primary Care Provider Declan Swanson Unavailable JOSE ALBERTO, PIERRE H Attending Unavailable BALL, DR LOMELI [...] Provider MD Bruce Shine II Attending Provider [phone] Ruben Celis Unavailable MD Ruben Celis Attending Provider [phone] Ruben Celis Admitting Unavailable Ruben Celis Attending [...] Referring Unavailable DECLAN SWANSON Primary Care Unavailable Jaydon Emanuel MD, Albert Unavailable [phone] DECLAN SWANSON Primary Care Unavailable VENKAT EVANS Referring Unavailable VENKAT EVANS Attending Unavailable DECLAN SWANSON Primary Care Unavailable VENKAT EVANS Referring Unavailable DECLAN SWANSON Primary Care Unavailable SHAMA IBANEZ Attending Unavailable VENKAT EVANS Attending Unavailable DECLAN SWANSON Primary Care Unavailable Allergies Allergy Classification Reported Allergen(s) Allergy Type Date of Onset Reaction(s) Facility (20 sources) Latex Drug allergy 4 Unknown, Unknown Reaction [facility] (20 sources) Iodinated contrast media (substance) Drug allergy Unknown Intra-Cellular Therapies Other (4 sources) Iodinated Contrast Media Allergy to substance 4 Unknown Reaction [facility] Medications Current Medications Medication Drug Class(es) [...] (20 sources) Xanthine Oxidase Inhibitor Start: 7 End: 4 take 300 mg by mouth once daily Allopurinol Active 300 MG PO Daily 90 90 August 30, 2023 12:03pm Comment on above: Take 300 mg by mouth once daily. cephalexin 500 mg oral tablet (11 sources) Cephalosporin Antibacterial Start: 4 take 1 tablet by mouth every eight hours Cephalexin 500 MG 1 tablet Orally tid for 7 days Mar, Active Start: 11-04-2022 take 1 capsule by [facility] every twelve hours Cephalexin 500 MG [...] 5:26pm Start: 01-02-2023 take 1 capsule by [facility] every twelve hours Doxycycline Hyclate 100 MG 1 capsule Orally Twice a day for 5 days Dec, Active empagliflozin 10 mg oral tablet (4 sources) Sodium-Glucose Cotransporter 2 Inhibitor Start: 12-08-2023 [...] Comment on above: Take 1 tablet by [facility] once daily. metFORMIN hydrochloride 500 mg oral [...] Potassium Chloride Active 20 MEQ PO Daily August 30, 2023 12:04pm Start: 07-25-2015 take [...] mg/ml prefilled syringe (20 sources) Start: 01-01-20 22 End: 04-01-19 24 sodium chloride 0.9 % (flush) 10 mL [...] 2020 12:47pm take 4 tablets by mo ut once daily warfarin (COUMADIN) 1 mg tablet [...] (7 sources) Thiazide Diuretic Start: 8 End: 1 take 1 tablet by mouth once daily [...] days Start: 01-03-2023 take 1 tablet by [facility] twice daily predniSONE 10 MG 1 tablet [...] Onset: 03-09-2022 Chronic Congestive heart failure; nonhypertensive (18 sources) Acute on chronic diastolic heart failure; 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: [Acute on chronic diastolic (congestive) heart failure] Onset: 09-23-2021 Chronic Coronary atherosclerosis and other heart disease (20 sources) Coronary atherosclerosis; 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: [Atherosclerotic heart disease of [place] coronary artery without angina pectoris] Onset: 07-10-2015 [...] aftercare (3 sources) Patient encounter status; 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: [jail (current) use of anticoagulants] Episodic Other aftercare (1 source) jail (current) use of anticoagulants; 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: [[facility] CURRNT USE ANTICOAGULANTS] Onset: 08-10-2022 Episodic Other aftercare (5 sources) Encounter for therapeutic drug level monitoring; 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: [ENC THERAPEUTC DRUG LEVL MONITORING] Onset: 07-09-2022 Episodic Other aftercare (2 sources) 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 Date Time Provider Department 01/24/24 RUBEN DENTON CARDKS During your visit today, we recorded the following information about you: Radha Gates 01/24/2024 2:58 PM Signed Received INR LAB results from [facility]. Uploaded to [employer]. -Radha IC 955 Alisha Gomez RN 01/24/2024 3:30 PM Signed Allergies As of Date: 01/24/2024 (No Known Allergies) Date Reviewed: 12/08/2023 Reviewed by: Venkat Evans V, MD - Fully Assessed Prescriptions as of 01/24/2024 - empagliflozin (JARDIANCE) 10 mg tablet Take [...] once daily. Problem List As Of Date 01/24/2024 Noted Resolved CHRISTIAN (obstructive sleep apnea) [G47.33] 01/07/2014 HTN (hypertension) [I10] 01/07/2014 Dyslipidemia [E78.5] 01/07/2014 Atrial fibrillation (HCC) [I48.91] 07/08/2014 Atherosclerosis of [place] coronary artery of na*07/10/2015 Diabetes mellitus type 2, controlled, without c*07/10/2015 Atrial fibrillation, persistent (HCC) [I48.19] 07/22/2015 Paroxysmal atrial fibrillation (HCC) [I48.0] 12/04/2015 Paroxysmal atrial flutter (HCC) [I48.92] 05/30/2018 Obesity, Class III, BMI >= 40 [E66.01] 10/23/2019 Chronic diastolic heart failure (HCC) [I50.32] 06/05/2023 Mixed hyperlipidemia [E78.2] 06/05/2023 Encounter Status:Closed by ALISHA GOMEZ on 01/24/24 [facility] 12-19-2023 [facility] Telephone (CAEPAV) JORGE DAVIS ([id number]) 1945 [place] Date Time Provider Department 12/19/23 VENKAT EVANS V CAKAZ During your visit today, we recorded the following information about you: Claire Callejas, RN 12/19/2023 2:17 PM Signed Spoke with patients . Relayed Dr. Pineda message below. Patient is NOT taking Jardiance due to cost. Will adjust Lasix and recheck BNP. Appt scheduled end of Feb with Shama. Patient is requesting change to [place] instead of [place]. Will contact us if no improvement. 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 now asking about BNP lab for next [...] Atrial fibrillation (HCC) [I48.91] 07/08/2014 Atherosclerosis of [place] coronary artery of na*07/10/2015 Diabetes mellitus type 2, controlled, without c*07/10/2015 Atrial fibrillation, persistent (HCC) [I48.19] 07/22/2015 Paroxysmal atrial fibrillation (HCC) [I48.0] 12/04/2015 Paroxysmal atrial flutter (HCC) [I48.92] 05/30/2018 Obesity, Class III, BMI >= 40 [E66.01] 10/23/2019 Chronic diastolic heart failure (HCC) [I50.32] 06/05/2023 Mixed hyperlipidemia [E78.2] 06/05/2023 Encounter Status:Closed by CLAIRE CALLEJAS on 12/19/23 [facility] 12-12-2023 CNPN Telephone (CARDMN) JORGE DAVIS ([id number]) 1945 M [facility]* Date Time Provider Department 12/12/23 RUBEN DENTON During your visit today, we recorded the following information about you: Bryan Dwyer 12/12/2023 2:58 PM Signed Documentation scanned into EP outside database Scanned INR report into epic Allergies As of Date: 12/12/2023 (No Known Allergies) Date Reviewed: 12/08/2023 Reviewed by: Venkat Evans V, MD - Fully Assessed Reason for Visit: Received Outside Medical Records [[id number]] Prescriptions as of 12/12/2023 - empagliflozin (JARDIANCE) [...] Atrial fibrillation (HCC) [I48.91] 07/08/2014 Atherosclerosis of [place] coronary artery of na*07/10/2015 Diabetes mellitus type 2, controlled, without c*07/10/2015 Atrial fibrillation, persistent (HCC) [I48.19] 07/22/2015 Paroxysmal atrial fibrillation (HCC) [I48.0] 12/04/2015 Paroxysmal atrial flutter (HCC) [I48.92] 05/30/2018 Obesity, Class III, BMI >= 40 [E66.01] 10/23/2019 Chronic diastolic heart failure (HCC) [I50.32] 06/05/2023 Mixed hyperlipidemia [E78.2] 06/05/2023 Encounter Status:Closed by BRYAN DWYER on 12/12/23 Normal [facility] Basic metabolic 2000 panelon 12-08-2023 Anion gap [Moles/Vol] 13 mmol/L 8 - 15 mmol/L [facility] Calcium [Mass/Vol] 9.4 mg/dL 8.5 - 10. 2 mg/dL [facility] Chloride [Moles/Vol] 103 mmol/L 98 - 10 7 mmol/L [facility] CO2 [Moles/Vol] 26 mmol/L 22 - 30 mmol/L [facility] Creatinine [Mass/Vol] 0.99 mg/dL 0.73 - 1.22 mg/dL [facility] GFR/1.73 sq M.predicted among non-blacks MDRD (S/P/Bld) [Vol rate/Area] 78 mL/min/{1.73_m2} - PINF [facility] Comment on above: Estimated Glomerular Filtration [...] [Mass/Vol] 97 mg/dL 74 - 99 mg/dL [facility] Comment on above: The [place] Diabete s Association (ADA) provides guidance for [...] Standards of Medical Care in Diabetes 2016, [place] Diabetes Association. Diabetes Care. 2016.39(Suppl 1). Interpretation and review of laboratory results Normal [facility] Potassium [Moles/Vol] 4.3 mmol/L 3.7 - 5.1 mmol/L [facility] Sodium [Moles/Vol] 142 mmol/L 136 - 144 mmol/L [facility] Urea nitrogen [Mass/Vol] 18 mg/dL 9 - 24 mg/dL [facility] Anion gap [Moles/Vol] 13 mmol/L Normal 8-15 [facility] Comment on above: Order Comment: Speci men Type: BLOOD SPECIMEN Ordering Facility: [facility] Address: [address] [place] [address] Performed By: #### 3 3762-6, 48508-1 #### [facility] CLIA [id number] [place] [address] [place] Calcium [Mass/Vol] 9.4 mg/dL Normal 8.5-10.2 [facility] Comment on above: Order Comment: Speci men Type: BLOOD SPECIMEN Ordering Facility: [facility] Address: [address] [place] [address] Performed By: #### 3 3762-6, 13657-0 #### [facility] CLIA [id number] [address] [place] [address] [place] Chloride [Moles/Vol] 103 mmol/L Normal 98-107 [facility] Comment on above: Order Comment: Speci men Type: BLOOD SPECIMEN Ordering Facility: [facility] Address: [address] [place] [address] Performed By: #### 3 3762-6, 16815-9 #### [facility] CLIA [id number] [address] [place] [address] [place] CO2 [Moles/Vol] 26 mmol/L Normal 22-30 [facility] Comment on above: Order Comment: Speci men Type: BLOOD SPECIMEN Ordering Facility: [facility] Address: [address] [place] [address] Performed By: #### 3 3762-6, 33393-0 #### [facility] CLIA [id number] [address] [place] [address] [place] Creatinine [Mass/Vol] 0.99 mg/dL Normal 0.73-1.22 [facility] Comment on above: Order Comment: Speci men Type: BLOOD SPECIMEN Ordering Facility: [facility] Address: [address] [place] [address] Performed By: #### 3 3762-6, 22506-2 #### [facility] CLIA [id number] [address] [place] [address] [place] Creatinine and Glomerular filtration rate.predicted panel (S/P/Bld) 78 mL/min/1.73m??? Normal >=60 [facility] Comment on above: Order Comment: Speci men Type: BLOOD SPECIMEN Ordering Facility: [facility] Address: [address] [place] [address] Result Comment: Colleen mated Glomerular Filtration Rate [...] actual GFR. Performed By: #### 3 3762-6, 93042-6 #### [facility] CLIA [id number] [address] [place] [address] [place] Glucose [Mass/Vol] 97 mg/dL Normal 74-99 [facility] Comment on above: Order Comment: Marlin markham Type: BLOOD SPECIMEN Ordering Facility: [facility] Address: [address] [place] [address] Result Comment: The [place] Diabetes Association (ADA) provides guidance for cutoff [...] Standards of Medical Care in Diabetes 2016, [place] Diabetes Association. Diabetes Care. 2016.39(Suppl 1). Performed By: #### 3 3762-6, 46125-1 #### [facility] CLIA [id number] [address] [place] [address] [place] Potassium [Moles/Vol] 4.3 mmol/L Normal 3.7-5.1 [facility] Comment on above: Order Comment: Marlin markham Type: BLOOD SPECIMEN Ordering Facility: [facility] Address: [address] [place] [address] Performed By: #### 3 3762-6, 50164-5 #### [facility] CLIA [id number] [address] [place] [address] [place] Sodium [Moles/Vol] 142 mmol/L Normal 136-144 [facility] Comment on above: Order Comment: Speci men Type: BLOOD SPECIMEN Ordering Facility: [facility] Address: [address] [place] [address] Performed By: #### 3 3762-6, 00881-0 #### [facility] CLIA [id number] [address] [place] [address] [place] [facility] Urea nitrogen [Mass/Vol] 18 mg/dL Normal 9-24 [facility] Comment on above: Order Comment: Speci men Type: BLOOD SPECIMEN Ordering Facility: [facility] Address: [address] [place] [address] Performed By: #### 3 3762-6, 10398-7 #### [facility] CLIA [id number] [address] [place] [address] [facility] CNOVon 12-08-2023 CNOV Office Visit (CARDAV ) RYANJORGE Kavita ([id number]) 1945 M [facility]* Date Time Provider Department 12/08/23 10:40 AM VENKAT EVANS During your visit today, we recorded the following information about you: Pulse Blood pressure Weight 88/minute 142/80 118.4 kg Vnekat Evans V, MD 12/08/2023 11:39 AM Signed Referring Physician: Venkat Evans [address] [facility] [address] Primary Care Physician: DO Jorge Unger Ryan [...] Continue staitn 5. Coronary artery disease involving [place] coronary artery of [place] heart without angina pectoris - ICD9: 414.01, [...] Evans MD Referring Provider: VENKAT EVANS V [[id number]] Allergies As of Date: 12/08/2023 (No Known Allergies) Date Reviewed: 12/08/2023 Reviewed by: Venkat Evans V, MD - Fully Assessed Reason for Visit: Follow Up [171] Primary Visit Diagnosis:Chronic diastolic heart failure (HCC) [I50.32] Other Visit Diagnoses:Atrial fibrillation, persistent (HCC) [I48.19] Obesity, Class III, 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) [E66.01] Mixed hyperlipidemia [E78.2] Coronary artery disease involving [place] coronary (more content not included)... Normal [facility] ECHOon 12-08-2023 Echocardiography Echocardiography Report: Transthoracic Echo [facility] Date of service: 12/08/2023 9:46:42 AM INSPECTOR Ordering physician: VENKAT EVANS V Indication: Evaluation of known heart failure to guide therapy Technologist: Jose Luis Porter [facility] Interpreting physician: Ruddy Chau MD PATIENT: Name: [...] * * * Final * * * [facility] : [id number] Normal [facility] Laboratory - Chemistry and C hemistry - challengeon 12-08-2023 Calcium [Mass/Vol] 9.4 mg/dL 8.5-10.2 [facility] Chloride [Moles/Vol] 103 mmol/L 98-107 [facility] CO2 [Moles/Vol] 26 mmol/L 22-30 [facility] Creatinine [Mass/Vol] 0.99 mg/dL 0.73-1.22 [facility] Glucose [Mass/Vol] 97 mg/dL 74-99 [facility] Comment on above: The [place] Diabete s Association (ADA) provides guidance for [...] Standards of Medical Care in Diabetes 2016, [place] Diabetes Association. Diabetes Care. 2016.39(Suppl 1). Potassium [Moles/Vol] 4.3 mmol/L 3.7-5.1 [facility] Sodium [Moles/Vol] 142 mmol/L 136-144 [facility] Urea nitrogen [Mass/Vol] 18 mg/dL 9-24 [facility] NT PRO BNPon 12-08-2023 Natriuretic peptide.B prohormone N-Terminal [Mass/Vol] 2139 pg/mL High NINF - 450 pg/mL [facility] NT-proBNP SerPl-mCncon 12-07 Natriuretic peptide.B prohormone N-Terminal [Mass/Vol] 2139 pg/mL High <450 [facility] Comment on above: Order Comment: Speci men Type: BLOOD SPECIMEN Ordering Facility: [facility] Address: [address] [place] [address] Performed By: #### 3 3762-6, 82633-1 #### [facility] CLIA [id number] [address] [place] [address] [place] Natriuretic peptide.B prohor gerson N-Terminal [Mass/Vol]on 12-08-2023 Interpretation and review of laboratory results Abnormal [facility] Natriuretic peptide.B prohor gerson N-Terminal [Mass/volume] in Serum or Plasmaon 12-08-2023 Natriuretic peptide.B prohormone N-Terminal [Mass/Vol] 2139 pg/mL High <450 [facility] No Panel Informationon 12-07 Estimated GFR (CKD-EPI) 78 mL/min/1.73m??? >=60 [facility] Comment on above: Estimated Glomerular Filtration [...] 12-08-2023 Anion gap [Moles/Vol] 13 mmol/L 8-15 [facility] Basophils Auto (Bld) [#/Vol] on 12-07-2023 Basophils (Bld) [#/Vol] 0.0 10 3/uL 0.0-0.1 [facility] Basophils/100 WBC Auto (Bld) on 12-07-2023 Basophils/100 WBC (Bld) 0.2 % 0.2-2.0 [facility] Eosinophils/100 WBC Auto (Bl d)on 12-07-2023 Eosinophils/100 WBC (Bld) 0.0 % Low 0.9-7.0 [facility] Erythrocyte distribution wid th Auto (RBC) [Ratio]on 12-07-2023 Erythrocyte distribution width (RBC) [Ratio] 14.4 % 11.0-15.0 [facility] Estimated glomerular filtrat ion rate (GFR) non- Americanon 12-07-2023 GFR/1.73 sq M.predicted among non-blacks MDRD (S/P/Bld) [Vol rate/Area] mL/min/{1.73_m2} >=60 [facility] Globulin Calc (S) [Mass/Vol] on 12-07-2023 Globulin (S) [Mass/Vol] 3.3 g/dL [facility] Hematocrit Auto (Bld) [Volum e fraction]on 12-07-2023 Hematocrit (Bld) [Volume fraction] 41.7 % Low 42.0-54.0 [facility] Hemoglobin [Mass/volume] in Bloodon 12-07-2023 Hemoglobin (Bld) [Mass/Vol] 13.5 g/dL Low 14.0-18.0 [facility] INR in Platelet poor plasma by Coagulation assayon 12-07-2023 INR Coag (PPP) [Relative time] 2.55 {INR} [facility] Comment on above: DESIRED INR:2.0-3.0 CONDITIONS NOT LISTED BELOW2.5-3.5 FOR PROSTHETIC HEART VALVE REPLACEMENT2.5-3.5 RECURRENT THROMBOSIS Laboratory - Chemistry and C hemistry - challengeon 12-07-2023 Albumin [Mass/Vol] 2.8 g/dL Low 3.4-5.0 [facility] ALP [Catalytic activity/Vol] 74 U/L 46-116 [facility] ALT [Catalytic activity/Vol] 17 U/L 16-63 [facility] AST [Catalytic activity/Vol] 15 U/L 15-37 [facility] Bilirubin [Mass/Vol] 1.1 mg/dL High 0.2-1.0 [facility] Calcium [Mass/Vol] 8.6 mg/dL 8.5-10.1 [facility] Chloride [Moles/Vol] 104 mmol/L 98-107 [facility] CO2 [Moles/Vol] 22.2 mmol/L 21.0-32.0 [facility] Creatinine [Mass/Vol] 0.72 mg/dL 0.70-1.30 [facility] GFR/1.73 sq M.predicted MDRD (S/P/Bld) [Vol rate/Area] mL/min/{1.73_m2} >=60 [facility] Glucose [Mass/Vol] 132 mg/dL High 74-106 [facility] Potassium [Moles/Vol] 4.1 mmol/L 3.5-5.1 [facility] Protein [Mass/Vol] 6.1 g/dL Low 6.4-8.2 [facility] Sodium [Moles/Vol] 136 mmol/L 136-145 [facility] Urea nitrogen [Mass/Vol] 13.0 mg/dL 7.0-18.0 [facility] Urea nitrogen/Creatinine [Mass ratio] 18.1 mg/mg [facility] Laboratory - Hematology and Cell countson 12-07-2023 Immature granulocytes/100 WBC (Bld) 0.4 % 0.0-0.5 [facility] Leukocytes [#/volume] correc jossue for nucleated erythrocytes in Blood by Automated counon 12-07-2023 WBC corrected for nucl RBC Auto (Bld) [#/Vol] 9.5 10 3/uL 4.0-11.0 [facility] Lymphocytes Auto (Bld) [#/Vo l]on 12-07-2023 Lymphocytes (Bld) [#/Vol] 1.1 10 3/uL Low 1.2-3.8 [facility] Lymphocytes/100 WBC Auto (Bl d)on 12-07-2023 Lymphocytes/100 WBC (Bld) 11.5 % Low 20.5-60.0 [facility] MCH Auto (RBC) [Entitic mass ]on 12-07-2023 MCH (RBC) [Entitic mass] 29.5 pg 25.9-34.0 [facility] MCHC Auto (RBC) [Mass/Vol]on 12-07-2023 MCHC (RBC) [Mass/Vol] 32.4 g/dL 29.9-35.2 [facility] MCV Auto (RBC) [Entitic vol] on 12-07-2023 MCV (RBC) [Entitic vol] 91.0 fL 80.0-94.0 [facility] Monocytes Auto (Bld) [#/Vol] on 12-07-2023 Monocytes (Bld) [#/Vol] 0.5 10 3/uL 0.3-0.8 [facility] Monocytes/100 WBC Auto (Bld) on 12-07-2023 Monocytes/100 WBC (Bld) 4.8 % 1.7-12.0 [facility] Neutrophils Auto (Bld) [#/Vo l]on 12-07-2023 Neutrophils (Bld) [#/Vol] 7.9 10 3/uL High 1.4-6.5 [facility] Neutrophils/100 WBC Auto (Bl d)on 12-07-2023 Neutrophils/100 WBC (Bld) 83.1 % High 43.0-75.0 [facility] No Panel Informationon 12-06 Eosinophils # (Auto) 0.0 10 3/uL 0.0-0.7 [facility] Immature Granulocyte # (Auto) 0.04 10 3/uL High 0.00-0.03 [facility] Platelet mean volume Auto (B ld) [Entitic vol]on 12-07-2023 Platelet mean volume (Bld) [Entitic vol] 10.3 fL 9.5-13.5 [facility] Platelets Auto (Bld) [#/Vol] on 12-07-2023 Platelets (Bld) [#/Vol] 209 10 3/uL 150-450 [facility] Prothrombin time (PT)on 11-12 PT Coag (PPP) [Time] 24.6 s High 9.0-11.6 [facility] RBC Auto (Bld) [#/Vol]on RBC (Bld) [#/Vol] 4.58 10 6/uL Low 4.70-6.10 [facility] Serum or plasma albumin/glob ulin mass ratioon 12-07-2023 Albumin/Globulin [Mass ratio] 0.8 {ratio} [facility] Serum or plasma anion gap de terminationon 12-07-2023 Anion gap [Moles/Vol] 13.9 mmol/L [facility] Basophils Auto (Bld) [#/Vol] on 12-06-2023 Basophils (Bld) [#/Vol] 0.1 10 3/uL 0.0-0.1 [facility] Basophils/100 WBC Auto (Bld) on 12-06-2023 Basophils/100 WBC (Bld) 0.7 % 0.2-2.0 [facility] Eosinophils/100 WBC Auto (Bl d)on 12-06-2023 Eosinophils/100 WBC (Bld) 1.7 % 0.9-7.0 [facility] Erythrocyte distribution wid th Auto (RBC) [Ratio]on 12-06-2023 Erythrocyte distribution width (RBC) [Ratio] 14.6 % 11.0-15.0 [facility] Estimated glomerular filtrat ion rate (GFR) non- Americanon 12-06-2023 GFR/1.73 sq M.predicted among non-blacks MDRD (S/P/Bld) [Vol rate/Area] mL/min/{1.73_m2} >=60 [facility] Globulin Calc (S) [Mass/Vol] on 12-06-2023 Globulin (S) [Mass/Vol] 3.3 g/dL [facility] Hematocrit Auto (Bld) [Volum e fraction]on 12-06-2023 Hematocrit (Bld) [Volume fraction] 42.1 % 42.0-54.0 [facility] Hemoglobin [Mass/volume] in Bloodon 12-06-2023 Hemoglobin (Bld) [Mass/Vol] 13.6 g/dL Low 14.0-18.0 [facility] INR in Platelet poor plasma by Coagulation assayon 12-06-2023 INR Coag (PPP) [Relative time] 2.78 {INR} [facility] Comment on above: DESIRED INR:2.0-3.0 CONDITIONS NOT LISTED BELOW2.5-3.5 FOR PROSTHETIC HEART VALVE REPLACEMENT2.5-3.5 RECURRENT THROMBOSIS Laboratory - Chemistry and C hemistry - challengeon 12-06-2023 Albumin [Mass/Vol] 2.9 g/dL Low 3.4-5.0 [facility] ALP [Catalytic activity/Vol] 78 U/L 46-116 [facility] ALT [Catalytic activity/Vol] 20 U/L 16-63 [facility] AST [Catalytic activity/Vol] 18 U/L 15-37 [facility] Bilirubin [Mass/Vol] 1.1 mg/dL High 0.2-1.0 [facility] Calcium [Mass/Vol] 8.7 mg/dL 8.5-10.1 [facility] Chloride [Moles/Vol] 104 mmol/L 98-107 [facility] CO2 [Moles/Vol] 28.4 mmol/L 21.0-32.0 [facility] Creatinine [Mass/Vol] 0.75 mg/dL 0.70-1.30 [facility] GFR/1.73 sq M.predicted MDRD (S/P/Bld) [Vol rate/Area] mL/min/{1.73_m2} >=60 [facility] Glucose [Mass/Vol] 106 mg/dL 74-106 [facility] Potassium [Moles/Vol] 4.0 mmol/L 3.5-5.1 [facility] Protein [Mass/Vol] 6.2 g/dL Low 6.4-8.2 [facility] Sodium [Moles/Vol] 137 mmol/L 136-145 [facility] Urea nitrogen [Mass/Vol] 15.0 mg/dL 7.0-18.0 [facility] Urea nitrogen/Creatinine [Mass ratio] 20.0 mg/mg [facility] Laboratory - Hematology and Cell countson 12-06-2023 Immature granulocytes/100 WBC (Bld) 0.3 % 0.0-0.5 [facility] Leukocytes [#/volume] correc jossue for nucleated erythrocytes in Blood by Automated counon 12-06-2023 WBC corrected for nucl RBC Auto (Bld) [#/Vol] 7.5 10 3/uL 4.0-11.0 [facility] Lymphocytes Auto (Bld) [#/Vo l]on 12-06-2023 Lymphocytes (Bld) [#/Vol] 1.8 10 3/uL 1.2-3.8 [facility] Lymphocytes/100 WBC Auto (Bl d)on 12-06-2023 Lymphocytes/100 WBC (Bld) 23.5 % 20.5-60.0 [facility] MCH Auto (RBC) [Entitic mass ]on 12-06-2023 MCH (RBC) [Entitic mass] 29.8 pg 25.9-34.0 [facility] MCHC Auto (RBC) [Mass/Vol]on 12-06-2023 MCHC (RBC) [Mass/Vol] 32.3 g/dL 29.9-35.2 [facility] MCV Auto (RBC) [Entitic vol] on 12-06-2023 MCV (RBC) [Entitic vol] 92.3 fL 80.0-94.0 [facility] Monocytes Auto (Bld) [#/Vol] on 12-06-2023 Monocytes (Bld) [#/Vol] 0.6 10 3/uL 0.3-0.8 [facility] Monocytes/100 WBC Auto (Bld) on 12-06-2023 Monocytes/100 WBC (Bld) 8.6 % 1.7-12.0 [facility] Neutrophils Auto (Bld) [#/Vo l]on 12-06-2023 Neutrophils (Bld) [#/Vol] 4.9 10 3/uL 1.4-6.5 [facility] Neutrophils/100 WBC Auto (Bl d)on 12-06-2023 Neutrophils/100 WBC (Bld) 65.2 % 43.0-75.0 [facility] No Panel InformationOrdered By: Edgardo Feng on 12-06-2023 Acid Fast Smear [facility] Aerobic Culture [facility] AFB Specimen Processing [facility] Anaerobic Culture [facility] No Panel Informationon 12-05 Fungal Smear Result \R\ Fungus Stain [facility] Gram Stain Result 1 \R\ Gram Stain Result [facility] Miscellaneous Test Comment See comment [facility] Comment on above: Specimen Source: LEG RT - Leg Right - Leg Rt - 603.600 Eosinophils # (Auto) 0.1 10 3/uL 0.0-0.7 [facility] Immature Granulocyte # (Auto) 0.02 10 3/uL 0.00-0.03 [facility] Platelet mean volume Auto (B ld) [Entitic vol]on 12-06-2023 Platelet mean volume (Bld) [Entitic vol] 10.0 fL 9.5-13.5 [facility] Platelets Auto (Bld) [#/Vol] on 12-06-2023 Platelets (Bld) [#/Vol] 205 10 3/uL 150-450 [facility] Prothrombin time (PT)on 11-12 PT Coag (PPP) [Time] 26.6 s High 9.0-11.6 [facility] RBC Auto (Bld) [#/Vol]on RBC (Bld) [#/Vol] 4.56 10 6/uL Low 4.70-6.10 [facility] Serum or plasma albumin/glob ulin mass ratioon 12-06-2023 Albumin/Globulin [Mass ratio] 0.9 {ratio} [facility] Serum or plasma anion gap de terminationon 12-06-2023 Anion gap [Moles/Vol] 8.6 mmol/L [facility] Basophils Auto (Bld) [#/Vol] on 12-05-2023 Basophils (Bld) [#/Vol] 0.0 10 3/uL 0.0-0.1 [facility] Basophils/100 WBC Auto (Bld) on 12-05-2023 Basophils/100 WBC (Bld) 0.6 % 0.2-2.0 [facility] Eosinophils/100 WBC Auto (Bl d)on 12-05-2023 Eosinophils/100 WBC (Bld) 1.7 % 0.9-7.0 [facility] Erythrocyte distribution wid th Auto (RBC) [Ratio]on 12-05-2023 Erythrocyte distribution width (RBC) [Ratio] 14.6 % 11.0-15.0 [facility] Estimated glomerular filtrat ion rate (GFR) non- Americanon 12-05-2023 GFR/1.73 sq M.predicted among non-blacks MDRD (S/P/Bld) [Vol rate/Area] mL/min/{1.73_m2} >=60 [facility] Globulin Calc (S) [Mass/Vol] on 12-05-2023 Globulin (S) [Mass/Vol] 3.6 g/dL [facility] Glucose mean value [Mass/vol ume] in Blood Estimated from glycated hemoglobinon 12-05-2023 Average glucose Estimated from glycated hemoglobin (Bld) [Mass/Vol] 126 mg/dL [facility] Hematocrit Auto (Bld) [Volum e fraction]on 12-05-2023 Hematocrit (Bld) [Volume fraction] 42.7 % 42.0-54.0 [facility] Hemoglobin [Mass/volume] in Bloodon 12-05-2023 Hemoglobin (Bld) [Mass/Vol] 13.9 g/dL Low 14.0-18.0 [facility] INR in Platelet poor plasma by Coagulation assayon 12-05-2023 INR Coag (PPP) [Relative time] 3.49 {INR} [facility] Comment on above: DESIRED INR:2.0-3.0 CONDITIONS NOT LISTED BELOW2.5-3.5 FOR PROSTHETIC HEART VALVE REPLACEMENT2.5-3.5 RECURRENT THROMBOSIS Laboratory - Chemistry and C hemistry - challengeon 12-05-2023 Albumin [Mass/Vol] 3.2 g/dL Low 3.4-5.0 [facility] ALP [Catalytic activity/Vol] 95 U/L 46-116 [facility] ALT [Catalytic activity/Vol] 28 U/L 16-63 [facility] AST [Catalytic activity/Vol] 21 U/L 15-37 [facility] Bilirubin [Mass/Vol] 0.7 mg/dL 0.2-1.0 [facility] Calcium [Mass/Vol] 8.8 mg/dL 8.5-10.1 [facility] Chloride [Moles/Vol] 100 mmol/L 98-107 [facility] CO2 [Moles/Vol] 28.2 mmol/L 21.0-32.0 [facility] Creatinine [Mass/Vol] 0.78 mg/dL 0.70-1.30 [facility] GFR/1.73 sq M.predicted MDRD (S/P/Bld) [Vol rate/Area] mL/min/{1.73_m2} >=60 [facility] Glucose [Mass/Vol] 124 mg/dL High 74-106 [facility] Potassium [Moles/Vol] 4.1 mmol/L 3.5-5.1 [facility] Protein [Mass/Vol] 6.8 g/dL 6.4-8.2 [facility] Sodium [Moles/Vol] 135 mmol/L Low 136-145 [facility] Urea nitrogen [Mass/Vol] 14.0 mg/dL 7.0-18.0 [facility] Urea nitrogen/Creatinine [Mass ratio] 17.9 mg/mg [facility] Laboratory - Hematology and Cell countson 12-05-2023 ESR (Bld) [Velocity] 46 mm/h High <=20 [facility] HbA1c (Bld) [Mass fraction] 6.0 % 4.5-6.2 [facility] Comment on above: ADA RECOMMENDED LIMI T 4.0 - 6.0ADA THERAPEUTIC TARGET < 7.0ACTION SUGGESTED> 7.0 Immature granulocytes/100 WBC (Bld) 0.2 % 0.0-0.5 [facility] Leukocytes [#/volume] correc jossue for nucleated erythrocytes in Blood by Automated counon 12-05-2023 WBC corrected for nucl RBC Auto (Bld) [#/Vol] 6.6 10 3/uL 4.0-11.0 [facility] Lymphocytes Auto (Bld) [#/Vo l]on 12-05-2023 Lymphocytes (Bld) [#/Vol] 1.4 10 3/uL 1.2-3.8 [facility] Lymphocytes/100 WBC Auto (Bl d)on 12-05-2023 Lymphocytes/100 WBC (Bld) 21.3 % 20.5-60.0 [facility] MCH Auto (RBC) [Entitic mass ]on 12-05-2023 MCH (RBC) [Entitic mass] 29.8 pg 25.9-34.0 [facility] MCHC Auto (RBC) [Mass/Vol]on 12-05-2023 MCHC (RBC) [Mass/Vol] 32.6 g/dL 29.9-35.2 [facility] MCV Auto (RBC) [Entitic vol] on 12-05-2023 MCV (RBC) [Entitic vol] 91.4 fL 80.0-94.0 [facility] Monocytes Auto (Bld) [#/Vol] on 12-05-2023 Monocytes (Bld) [#/Vol] 0.5 10 3/uL 0.3-0.8 [facility] Monocytes/100 WBC Auto (Bld) on 12-05-2023 Monocytes/100 WBC (Bld) 8.1 % 1.7-12.0 [facility] Neutrophils Auto (Bld) [#/Vo l]on 12-05-2023 Neutrophils (Bld) [#/Vol] 4.5 10 3/uL 1.4-6.5 [facility] Neutrophils/100 WBC Auto (Bl d)on 12-05-2023 Neutrophils/100 WBC (Bld) 68.1 % 43.0-75.0 [facility] No Panel InformationOrdered By: Alix Mims on 12-05-2023 Blood Culture 2 [facility] Blood Culture 1 [facility] No Panel Informationon 12-04 C-Reactive Protein, Quantitative <0.50 mg/dL <=0.50 [facility] Eosinophils # (Auto) 0.1 10 3/uL 0.0-0.7 [facility] Immature Granulocyte # (Auto) 0.01 10 3/uL 0.00-0.03 [facility] Platelet mean volume Auto (B ld) [Entitic vol]on 12-05-2023 Platelet mean volume (Bld) [Entitic vol] 9.9 fL 9.5-13.5 [facility] Platelets Auto (Bld) [#/Vol] on 12-05-2023 Platelets (Bld) [#/Vol] 216 10 3/uL 150-450 [facility] Prothrombin time (PT)on 11-12 PT Coag (PPP) [Time] 32.7 s High 9.0-11.6 [facility] RBC Auto (Bld) [#/Vol]on RBC (Bld) [#/Vol] 4.67 10 6/uL Low 4.70-6.10 [facility] Serum or plasma albumin/glob ulin mass ratioon 12-05-2023 Albumin/Globulin [Mass ratio] 0.9 {ratio} [facility] Serum or plasma anion gap de terminationon 12-05-2023 Anion gap [Moles/Vol] 10.9 mmol/L [facility] CNPNon 11-15-2023 CNPN Telephone (CARDMN) JORGE DAVIS ([id number]) 1945 [facility]* Date Time Provider Department 11/15/23 RUBEN DENTON During your visit today, we recorded the following information about you: Andrei Dwyerinique 11/15/2023 2:37 PM Signed Documentation scanned into EP outside database Scanned INR results into epic Allergies As of Date: 11/15/2023 (No Known Allergies) Date Reviewed: 07/04/2023 Reviewed by: Delilah Novoa LPN - Fully Assessed Reason for Visit: Received Outside Medical Records [[id number]] Prescriptions as of 11/15/2023 - warfarin (COUMADIN) [...] Atrial fibrillation (HCC) [I48.91] 07/08/2014 Atherosclerosis of [place] coronary artery of na*07/10/2015 Diabetes mellitus type 2, controlled, without c*07/10/2015 Atrial fibrillation, persistent (HCC) [I48.19] 07/22/2015 Paroxysmal atrial fibrillation (HCC) [I48.0] 12/04/2015 Paroxysmal atrial flutter (HCC) [I48.92] 05/30/2018 Obesity, Class III, BMI >= 40 [E66.01] 10/23/2019 Chronic diastolic heart failure (HCC) [I50.32] 06/05/2023 Mixed hyperlipidemia [E78.2] 06/05/2023 Encounter Status:Closed by BRYAN DWYER on 11/15/23 [facility] Scooter 09-19-2023 CNPN Telephone (CARDMN) JORGE DAVIS ([id number]) 1945 [place]* Date Time Provider Department 09/19/23 RUBEN DENTON During your visit today, we recorded the following information about you: Bryan Dwyer 09/19/2023 3:52 PM Signed Documentation scanned into EP outside database Scanned INR results into epic Allergies As of Date: 09/19/2023 (No Known Allergies) Date Reviewed: 07/04/2023 Reviewed by: Delilah Novoa LPN - Fully Assessed Reason for Visit: Received Outside Medical Records [[id number]] Prescriptions as of 09/19/2023 - warfarin (COUMADIN) [...] Atrial fibrillation (HCC) [I48.91] 07/08/2014 Atherosclerosis of [place] coronary artery of na*07/10/2015 Diabetes mellitus type 2, controlled, without c*07/10/2015 Atrial fibrillation, persistent (HCC) [I48.19] 07/22/2015 Paroxysmal atrial fibrillation (HCC) [I48.0] 12/04/2015 Paroxysmal atrial flutter (HCC) [I48.92] 05/30/2018 Obesity, Class III, BMI >= 40 [E66.01] 10/23/2019 Chronic diastolic heart failure (HCC) [I50.32] 06/05/2023 Mixed hyperlipidemia [E78.2] 06/05/2023 Encounter Status:Closed by BRYAN DWYER on 09/19/23 [facility] Scooter 08-22-2023 CNPN Telephone (CARDMN) JORGE DAVIS ([id number]) 1945 [facility] Date Time Provider Department 08/22/23 RUBEN DENTON During your visit today, we recorded the following information about you: Bryan Dwyer 08/22/2023 4:53 PM Signed Documentation scanned into EP outside database Scanned INR results into epic Allergies As of Date: 08/22/2023 (No Known Allergies) Date Reviewed: 07/04/2023 Reviewed by: Delilah Novoa LPN - Fully Assessed Reason for Visit: Received Outside Medical Records [[id number]] Prescriptions as of 08/22/2023 - warfarin (COUMADIN) [...] Atrial fibrillation (HCC) [I48.91] 07/08/2014 Atherosclerosis of [place] coronary artery of na*07/10/2015 Diabetes mellitus type 2, controlled, without c*07/10/2015 Atrial fibrillation, persistent (HCC) [I48.19] 07/22/2015 Paroxysmal atrial fibrillation (HCC) [I48.0] 12/04/2015 Paroxysmal atrial flutter (HCC) [I48.92] 05/30/2018 Obesity, Class III, BMI >= 40 [E66.01] 10/23/2019 Chronic diastolic heart failure (HCC) [I50.32] 06/05/2023 Mixed hyperlipidemia [E78.2] 06/05/2023 Encounter Status:Closed by BRYAN DWYER on 08/22/23 [facility] Scooter 07-25-2023 CNPN Telephone (PRESLEY) JORGE DAVIS ([id number]) 1945 [place]* Date Time Provider Department 07/25/23 RUBEN DENTON [...] Atrial fibrillation (HCC) [I48.91] 07/08/2014 Atherosclerosis of [place] coronary artery of na*07/10/2015 Diabetes mellitus type 2, controlled, without c*07/10/2015 Atrial fibrillation, persistent (HCC) [I48.19] 07/22/2015 Paroxysmal atrial fibrillation (HCC) [I48.0] 12/04/2015 Paroxysmal atrial flutter (HCC) [I48.92] 05/30/2018 Obesity, Class III, BMI >= 40 [E66.01] 10/23/2019 Chronic diastolic heart failure (HCC) [I50.32] 06/05/2023 Mixed hyperlipidemia [E78.2] 06/05/2023 Encounter Status:Closed by BRYAN DWYER on 07/25/23 [facility] CNOVon 07-04-2023 CNOV Office Visit (CAEPAV ) JORGE DAVIS ([id number]) 1945 [place]* Date Time Provider Department 07/04/23 [...] 07/04/2023 10:19 AM Signed [facility] Department of Cardiovascular Medicine SECTION OF CARDIAC PACING and ELECTROPHYSIOLOGY OUTPATIENT VISIT DATE July 04, 2023 OUTPATIENT VISIT TYPE ESTABLISHED PRIMARY CARE PHYSICIAN: Declan Swanson (Peggy) [address] [place] [address] CHIEF COMPLAINT: Cardiology follow up HISTORY OF [...] [place] (more content not included)... Normal [facility] CNPNon 06-27-2023 CNPN Telephone (CARDMN) JORGE DAVIS ([id number]) 1945 [facility] Co* Date Time Provider Department 06/27/23 RUBEN DENTON CARDKS During your visit today, we recorded the following information about you: Bryan Dwyer 06/27/2023 2:56 PM Signed Documentation scanned into EP outside database Scanned INR results into [facility] Allergies As of Date: 06/27/2023 (No Known Allergies) Date Reviewed: 06/05/2023 Reviewed by: Venkat Evans V, MD - Fully Assessed Reason for Visit: Received Outside Medical Records [[id number]] Prescriptions as of 06/27/2023 - warfarin (COUMADIN) [...] Atrial fibrillation (HCC) [I48.91] 07/08/2014 Atherosclerosis of [place] coronary artery of na*07/10/2015 Diabetes mellitus type 2, controlled, without c*07/10/2015 Atrial fibrillation, persistent (HCC) [I48.19] 07/22/2015 Paroxysmal atrial fibrillation (HCC) [I48.0] 12/04/2015 Paroxysmal atrial flutter (HCC) [I48.92] 05/30/2018 Obesity, Class III, BMI >= 40 [E66.01] 10/23/2019 Chronic diastolic heart failure (HCC) [I50.32] 06/05/2023 Mixed hyperlipidemia [E78.2] 06/05/2023 Encounter Status:Closed by BRYAN DWYER on 06/27/23 [facility] CNOVon 06-05-2023 CNOV Office Visit (CARDAV ) JORGE DAVIS ([id number]) 1945 [facility] Date Time Provider Department 06/05/23 1:40 PM VENKAT EVANS During your visit today, we recorded the following information about you: Pulse Blood pressure Weight 74/minute 124/78 120.2 kg Venakt Evans V, MD 06/05/2023 2:25 PM Signed [...] hyperlipidemia [E78.2] Order(s):ECG COMPLETE [ECG01] Order #: [id number]. #:[id number]--MWCPg kg ECHO [161235] Order #: [id number]: 1 FUTURE Prescriptions as of 06/05/2023 - warfarin (COUMADIN) 1 mg tablet Take 4 mg by mouth once daily. - metFORMIN (GLUCOPHAGE) 500 mg t (more content not included)... Normal [facility] IDS27et 06-05-2023 ECG01 Ventricular Rate : 6 8 BPM QRS Duration : 108 ms Q-T Interval : 466 ms QTC Calculation(Bazett) : 495 ms Calculated R [place] : -27 degrees Calculated T [place] : 53 degrees ATRIAL FIBRILLATION INCOMPLETE RIGHT BUNDLE BRANCH BLOCK ABNORMAL ECG Confirmed by KATRINA KELLEY MD ([id number]) on 06/07/2023 9:44:30 AM NAME : RYANHANNAH DURANDVIN PID : [id number] : 1945 Gender : Male Race : [...] : , Acquired by : Ale lema [facility] Scooter 05-30-2023 CNPN Telephone (CARDMN) JORGE DAVIS ([id number]) 1945 [place] [facility] Date Time Provider Department 05/30/23 RUBEN DENTON During your visit today, we recorded the following information about you: Bryan Dwyer 05/30/2023 9:24 AM Signed Documentation scanned into EP outside database Scanned into Epic Allergies As of Date: 05/30/2023 (No Known Allergies) Date Reviewed: 06/24/2022 Reviewed by: Ruben Denton MD - Fully Assessed Reason for Visit: Received Outside Medical Records [[id number]] Cmt: INR Prescriptions as of 05/30/2023 - [...] Atrial fibrillation (HCC) [I48.91] 07/08/2014 Atherosclerosis of [place] coronary artery of na*07/10/2015 Diabetes mellitus type 2, controlled, without c*07/10/2015 Atrial fibrillation, persistent (HCC) [I48.19] 07/22/2015 Paroxysmal atrial fibrillation (HCC) [I48.0] 12/04/2015 Paroxysmal atrial flutter (HCC) [I48.92] 05/30/2018 Obesity, Class III, BMI >= 40 [E66.01] 10/23/2019 Encounter Status:Closed by BRYAN DWYER on 05/30/23 [facility] ([id number]) 1945 M [facility]* Date Time Provider Department 05/02/23 RUBEN DENTON [...] Atrial fibrillation (HCC) [I48.91] 07/08/2014 Atherosclerosis of [place] coronary artery of na*07/10/2015 Diabetes mellitus type 2, controlled, without c*07/10/2015 Atrial fibrillation, persistent (HCC) [I48.19] 07/22/2015 Paroxysmal atrial fibrillation (HCC) [I48.0] 12/04/2015 Paroxysmal atrial flutter (HCC) [I48.92] 05/30/2018 Obesity, Class III, BMI >= 40 [E66.01] 10/23/2019 Encounter Status:Closed by BRYAN DWYER on 05/02/23 [facility] C[facility]N Telephone (CARDMN) JORGE DAVIS ([id number]) 1945 [facility] [place]* Date Time Provider Department 04/06/23 RUBEN DENTON CARDKS During your visit today, we recorded the following information about you: Suman Garvin 04/06/2023 6:45 AM Signed Outside medical records (INR report 04/04/2023) scanned into [employer] and shared Gini. Allergies As of Date: 04/06/2023 (No Known Allergies) Date Reviewed: 06/24/2022 Reviewed by: Ruben Denton MD - Fully Assessed Reason for Visit: Received Outside Medical Records [[id number]] Cmt: INR Report 04/04/2023 Prescriptions as of [...] Atrial fibrillation (HCC) [I48.91] 07/08/2014 Atherosclerosis of [place] coronary artery of na*07/10/2015 Diabetes mellitus type 2, controlled, without c*07/10/2015 Atrial fibrillation, persistent (HCC) [I48.19] 07/22/2015 Paroxysmal atrial fibrillation (HCC) [I48.0] 12/04/2015 Paroxysmal atrial flutter (HCC) [I48.92] 05/30/2018 Obesity, Class III, BMI >= 40 [E66.01] 10/23/2019 Encounter Status:Closed by SUMAN GARVIN on 05/18/23 Normal [facility] CNPNon 02-07-2023 CNPN Telephone (CARDMN) JORGE DAVIS ([id number]) 1945 [place]* Date Time Provider Department 02/07/23 RUBEN DENTON CARDKS During your visit today, we recorded the following information about you: Suman Garvin 02/07/2023 9:32 AM Signed Outside medical records (INR report 02/07/2023) scanned into [employer] and [employer]. Allergies As of Date: 02/07/2023 (No Known Allergies) Date Reviewed: 06/24/2022 Reviewed by: Ruben Denton MD - Fully Assessed Reason for Visit: Received Outside Medical Records [[id number]] Cmt: INR Report 02/07/2023 Prescriptions as of [...] Atrial fibrillation (HCC) [I48.91] 07/08/2014 Atherosclerosis of [place] coronary artery of na*07/10/2015 Diabetes mellitus type 2, controlled, without c*07/10/2015 Atrial fibrillation, persistent (HCC) [I48.19] 07/22/2015 Paroxysmal atrial fibrillation (HCC) [I48.0] 12/04/2015 Paroxysmal atrial flutter (HCC) [I48.92] 05/30/2018 Obesity, Class III, BMI >= 40 [E66.01] 10/23/2019 Encounter Status:Closed by SUMAN GARVIN on 02/07/23 Normal [facility] XR pre/post mri xrayon 11-24 XR pre/post mri xray [facility] Main [facility] [address] [place] [address] MRI Report Signed Patient: Jorge Davis MR#: [id number] 14 : 1945 Acct:[id number] Age/Sex: 77 / M ADM Date: 11/24/22 Loc: [facility] Room: Type: [facility] Attending Dr: Ruben Celis MD Copies to: Ruben Celis MD Ordering Provider: Ruben Celis MD Date of Service: 11/24/22 MR/MR lumbar spine wo con: Other spondylosis with radiculopathy, lumbar region ([id number]) XR/XR pre/post mri xray: LUMBAR MRI MR [...] Ellis Humphreys M.D.11/24/2022 6:03 PM Dictation Location: [facility]-14 Transcribed By: [facility] 11/24/221802 Dictated By: Ellis Humphreys II, MD 11/24/221753 Signed By: 11/24/221802 Normal [facility] XR knee BI 2Von 10-12-2022 XR knee BI 2V [facility] Main [facility] [address] [place] [address] XRay Report Signed Patient: Jorge Davsi MR#: [id number] 14 : 1945 Acct:[id number] Age/Sex: 77 / M ADM Date: 10/12/22 Loc: [facility] Room: Type: [facility] Attending Dr: Bruce Shine II, MD Copies to: Bruce Shine MD Ordering Provider: Bruce Shine MD Date of Service: 10/12/22 XR/XR hip BI w PEL1V: Pain in right hip;Pain in left hip ([id number]) XR/XR knee BI 2V: PAIN ADULT PELVIS [...] Galvan Jr., D.ORita10/12/2022 12:41 PM Dictation Location: [facility]--12 Transcribed By: P[facility] 10/12/22 1241 Dictated By: Jose Galvan Jr, DO 10/12/22 1239 Signed By: 10/12/22 1241 Normal [facility] XR knee BI 2V [facility] [employer] Other XR knee BI 2V [facility] Main [facility] [employer] Other XR knee BI 2V [address] [place] [address] [employer] Other XR knee BI 2V [place] [id number] [facility] [employer] Other XR knee BI 2V XRay Report [facility] [employer] Other XR knee BI 2V Signed [place] [employer] Other XR knee BI 2V Patient: Corina Davis MR#: [id number] [place] [employer] Other XR knee BI 2V 14 [employer] Other XR knee BI 2V : 1945 Acct:[id number] [place] [employer] Other XR knee BI 2V Age/Sex: 77 / M ADM Date: 10/12/22 [place] [employer] Other XR knee BI 2V Loc: [facility] Room: Type : [facility] [employer] Other XR knee BI 2V Attending Dr: Bruce Shine II, MD [employer] Other XR knee BI 2V Copies to: Bruce Shine MD [employer] Other XR knee BI 2V Ordering Provider: Bruce Shine MD [employer] Other XR knee BI 2V Date of Service: 10/12/22 [employer] Other XR knee BI 2V XR/XR hip BI w PEL1V: Pain in right hip;Pain in left hip [employer] Other XR knee BI 2V ([id number]) XR/XR knee BI 2V: PAIN [employer] Other XR knee BI 2V ADULT PELVIS WITH BILATERAL HIPS - one view each, bilateral knee series 4 views each [employer] Other XR knee BI 2V CLINICAL HISTORY: Bilateral hip/groin pain for years. Bilateral generalized knee pain for years. [employer] Other XR knee BI 2V COMPARISON: None [employer] Other XR knee BI 2V FINDINGS: [employer] Other XR knee BI 2V Hip series: Moderate degenerative changes of both hips without acute bony process. Degenerative [employer] Other XR knee BI 2V change also noted involving the visualized lower lumbar spine, SI joints and pubic symphysis. [employer] Other XR knee BI 2V Bilateral knee series: Bilateral knee prostheses are in place without radiographic complication. No [employer] Other XR knee BI 2V acute bony process i s seen. Vascular calcifications. [employer] Other XR knee BI 2V XR/XR hip BI w PEL1V [employer] Other XR knee BI 2V IMPRESSION: DNA SEQ Other XR knee BI 2V MODERATE DEGENERATIV E CHANGES OF BOTH HIPS WITHOUT ACUTE BONY PROCESS. [employer] Other XR knee BI 2V BILATERAL KNEE PROSTHESES WITHOUT RADIOGRAPHIC COMPLICATION. [employer] Other XR knee BI 2V Impression dictated by: Jose Galvan Jr., D.O.10/12/2022 12:41 PM [employer] Other XR knee BI 2V Dictation Location: [place] [address] [employer] Other XR knee BI 2V Transcribed By: PWS 10/12/22 1241 [employer] Other XR knee BI 2V Dictated By: Jose Galvan Jr, 10/12/22 1239 [employer] Other XR knee BI 2V Signed By: [employer] Other XR knee BI 2V 10/12/22 1241 [facility] [employer] Other A1C with Estimated Average G luon 05-16-2022 A1C with Estimated Average Glu [employer] Other GLYCOHEMOGLOBIN A1Con 2022 ADA RECOMMENDATION SEE BELOW Normal [facility] Comment on above: Result Comment: ADA RECOMMENDED LIMIT 4.0 - 6.0 ADA THERAPEUTIC TARGET < 7.0 ACTION SUGGESTED > 7.0 Performed By: #### A 1C #### [facility] [address] [address] [address] Edna Machado Glucose [Mass/Vol] 131 mg/dL Normal [facility] Comment on above: Performed By: #### A 1C #### [facility] [address] [address] [address] Edna Machado HbA1c (Bld) [Mass fraction] 6.2 % Normal 4.5-6.2 [facility] Comment on above: Performed By: #### A 1C #### [facility] [address] CHEST WO CONon [...] GLENDA FENG Date: 2021-09-24 13:29 Normal [facility] CBC AUTO DIFFon 09-22-2021 BASO # 0.0 103/ul Normal 0.0-0.1 [facility] Comment on above: Performed By: #### C BC #### [facility] [address] [place] [address] Dr. Edna Machado Basophils/100 WBC (Bld) 0.5 % Normal 0.2-2.0 [facility] Comment on above: Performed By: #### C BC #### [facility] [address] [place] [address] Dr. Edna Machado EO # 0.1 103/ul Normal 0.0-0.7 [facility] Comment on above: Performed By: #### C BC #### [facility] [address] [address] [address] Edna Machado Eosinophils/100 WBC (Bld) 1.4 % Normal 0.9-7.0 [facility] Comment on above: Performed By: #### C BC #### [facility] [address] [place] [address] Dr. Edna Machado Erythrocyte distribution width (RBC) [Ratio] 14.6 % Normal 11.0-15.0 [facility] Comment on above: Performed By: #### C BC #### [facility] [address] [place] [address] Dr. Edna Machado Hematocrit (Bld) [Volume fraction] 46.5 % Normal 42.0-54.0 [facility] Comment on above: Performed By: #### C BC #### [facility] [address] [place] [address] Dr. Edna Machado Hemoglobin (Bld) [Mass/Vol] 15.0 g/dL Normal 14.0-18.0 [facility] Comment on above: Performed By: #### C BC #### [facility] [address] [place] [address] Dr. Edna Machado IG # 0.01 10e3/ul Normal 0.00-0.03 [facility] Comment on above: Performed By: #### C BC #### [facility] [address] [place] [address] Dr. Edna Machado IG % 0.1 % Normal 0.0-0.5 [facility] Comment on above: Performed By: #### C BC #### [facility] [address] [place] [address] Dr. Edna Machado LYMPH # 2.1 103/ul Normal 1.2-3.8 [facility] Comment on above: Performed By: #### C BC #### [facility] [address] [place] [address] Dr. Edna Machado Lymphocytes/100 WBC (Bld) 27.8 % Normal 20.5-60.0 [facility] Comment on above: Performed By: #### C BC #### [facility] [address] [place] [address] Dr. Edna Machado MANUAL DIFF REQ NO Normal [facility] Comment on above: Performed By: #### C BC #### [facility] [address] [place] [address] Dr. Edna Machado MCH (RBC) [Entitic mass] 29.0 pg Normal 25.9-34.0 [facility] Comment on above: Performed By: #### C BC #### [facility] [address] [address] [address] Edna Machado MCHC (RBC) [Mass/Vol] 32.3 g/dL Normal 29.9-35.2 [facility] Comment on above: Performed By: #### C BC #### [facility] [address] [place] [address] Dr. Edna Machado MCV (RBC) [Entitic vol] 89.8 fL Normal 80.0-94.0 [facility] Comment on above: Performed By: #### C BC #### [facility] [address] [place] [address] Dr. Edna Machado MONO # 0.6 103/ul Normal 0.3-0.8 [facility] Comment on above: Performed By: #### C BC #### [facility] [address] [place] [address] Dr. Edna Machado Monocytes/100 WBC (Bld) 8.3 % Normal 1.7-12.0 [facility] Comment on above: Performed By: #### C BC #### [facility] [address] [place] [address] Dr. Edna Machado NEUT # 4.6 103/ul Normal 1.4-6.5 [facility] Comment on above: Performed By: #### C BC #### [facility] [address] [place] [address] Dr. Edna Machado Neutrophils/100 WBC (Bld) 61.9 % Normal 43.0-75.0 [facility] Comment on above: Performed By: #### C BC #### [facility] [address] [place] [address] Dr. Edna Machado Platelet mean volume (Bld) [Entitic vol] 10.0 fL Normal 9.5-13.5 [facility] Comment on above: Performed By: #### C BC #### [facility] [address] [place] [address] Dr. Edna Machado PLT 218 103/ul Normal 150-450 [facility] Comment on above: Performed By: #### C BC #### [facility] [address] [place], [place] [address] Dr. Edna Machado RBC 5.18 106/ul Normal 4.70-6.10 [facility] Comment on above: Performed By: #### C BC #### [facility] [address] [place] [address] Dr. Edna Machado WBC 7.4 103/ul Normal 4.0-11.0 [facility] Comment on above: Performed By: #### C BC #### [facility] [address] [place] [address] Dr. Edna Machado GLYCOHEMOGLOBIN A1Con 2021 ADA RECOMMENDATION SEE BELOW Normal [facility] Comment on above: Result Comment: ADA RECOMMENDED LIMIT 4.0 - 6.0 ADA THERAPEUTIC TARGET < 7.0 ACTION SUGGESTED > 7.0 Performed By: #### A 1C #### [facility] [address] [place] [address] Dr. Edna Machado Glucose [Mass/Vol] 123 mg/dL Normal [facility] Comment on above: Performed By: #### A 1C #### [facility] [address] [place] [address] Dr. Edna Machado HbA1c (Bld) [Mass fraction] 5.9 % Normal 4.5-6.2 [facility] Comment on above: Performed By: #### A 1C #### [facility] [address] [place] [address] Dr. Edna Machado LIPID PROFILEon 09-22-2021 CHOL-HDL RATIO NORM SEE BELOW Normal [facility] Comment on above: Result Comment: 3.3 - 4.4 LOW RISK 4.4 - 7.1 AVERAGE RISK 7.1 - 11.0 MODERATE RISK >11.0 HIGH RISK Performed By: #### L IPID, CMP #### [facility] [address] [place] [address] Dr. Edna Machado Cholesterol [Mass/Vol] 132 mg/dL Normal <=200 [facility] Comment on above: Performed By: #### L IPID, CMP #### [facility] [address] [place] [address] Dr. Edna Machado Cholesterol in HDL [Mass/Vol] 43 mg/dL Normal 40-60 [facility] Comment on above: Performed By: #### L IPID, CMP #### [facility] [address] [address] [address] Edna Machado Cholesterol in LDL [Mass/Vol] 71.0 mg/dL Normal [facility] Comment on above: Performed By: #### L IPID, CMP #### [facility] [address] [address] [address] Edna Machado Cholesterol.total/Cho lesterol in HDL [Mass ratio] 3.1 {ratio} Normal [facility] Comment on above: Performed By: #### L IPID, CMP #### [facility] [address] [place] [address] Dr. Edna Machado HDL NORMAL > or = 60 mg/dl - LO W CARDIOVASCULAR RISK <40 mg/dl - HIGH CARDIOVASCULAR RISK Normal [facility] Comment on above: Performed By: #### L IPID, CMP #### [facility] [address] [address] [address] Edna Machado LDL CALC NORMAL SEE BELOW Normal [facility] Comment on above: Result Comment: <100 mg/dl OPTIMAL 100 - 129 mg/dl NEAR OR ABOVE OPTIMAL 130 - 159 mg/dl BORDERLINE HIGH 160 - 189 mg/dl HIGH >190 mg/dl VERY HIGH Performed By: #### L IPID, CMP #### [facility] [address] [address] [address] Edna Machado Triglyceride [Mass/Vol] 90 mg/dL Normal <=150 [facility] Comment on above: Performed By: #### L IPID, CMP #### [facility] [address] [place] [address] Dr. Edna Machado VLDL CALC 18.0 mg/dL Normal [facility] Comment on above: Performed By: #### L IPID, CMP #### [facility] [address] [place] [address] Dr. Edna Machado PROF 14(COMP METB)on 022 Albumin [Mass/Vol] 3.5 g/dL Normal 3.4-5.0 [facility] Comment on above: Performed By: #### L IPID, CMP #### [facility] [address] [address] [address] Edna Machado Albumin/Globulin [Mass ratio] 0.9 {ratio} Normal [facility] Comment on above: Performed By: #### L IPID, CMP #### [facility] [address] [address] [address] Edna Machado ALP [Catalytic activity/Vol] 83 U/L Normal 46-116 [facility] Comment on above: Performed By: #### L IPID, CMP #### [facility] [address] [address] [address] Edna Machado ALT [Catalytic activity/Vol] 22 U/L Normal 16-63 [facility] Comment on above: Performed By: #### L IPID, CMP #### [facility] [address] [address] [address] Edna Machado Anion gap [Moles/Vol] 9.4 mmol/L Normal [facility] Comment on above: Performed By: #### L IPID, CMP #### [facility] [address] [address] [address] Edna Machado AST [Catalytic activity/Vol] 13 U/L Critically low 15-37 [facility] Comment on above: Performed By: #### L IPID, CMP #### [facility] [address] [address] [address] Edna Machado Bilirubin [Mass/Vol] 0.6 mg/dL Normal 0.2-1.0 [facility] Comment on above: Performed By: #### L IPID, CMP #### [facility] [address] [address] [address] Edna Machado Calcium [Mass/Vol] 8.7 mg/dL Normal 8.5-10.1 [facility] Comment on above: Performed By: #### L IPID, CMP #### [facility] [address] [address] [address] Edna Machado Chloride [Moles/Vol] 103 mmol/L Normal 98-107 [facility] Comment on above: Performed By: #### L IPID, CMP #### [facility] [address] [address] [address] Edna Machado CO2 [Moles/Vol] 28.7 mmol/L Normal 21.0-32.0 [facility] Comment on above: Performed By: #### L IPID, CMP #### [facility] [address] [address] [address] Edna Machado Creatinine [Mass/Vol] 0.83 mg/dL Normal 0.70-1.30 [facility] Comment on above: Performed By: #### L IPID, CMP #### [facility] [address] [address] [address] Edna Machado EGFR-AF BURMESE >60 Normal >=60 [facility] Comment on above: Performed By: #### L IPID, CMP #### [facility] [address] [address] [address] Edna Machado EGFR-NON AF BURMESE >60 Normal >=60 [facility] Comment on above: Performed By: #### L IPID, CMP #### [facility] [address] [address] [address] Edna Machado Globulin (S) [Mass/Vol] 3.7 g/dL Normal [facility] Comment on above: Performed By: #### L IPID, CMP #### [facility] [address] [address] [address] Edna Machado Glucose [Mass/Vol] 106 mg/dL Normal 74-106 [facility] Comment on above: Performed By: #### L IPID, CMP #### [facility] [address] [address] [address] Edna Machado Potassium [Moles/Vol] 4.1 mmol/L Normal 3.5-5.1 [facility] Comment on above: Performed By: #### L IPID, CMP #### [facility] [address] [address] [address] Edna Machado Protein [Mass/Vol] 7.2 g/dL Normal 6.4-8.2 [facility] Comment on above: Performed By: #### L IPID, CMP #### [facility] [address] [address] [address] Edna Machado Sodium [Moles/Vol] 137 mmol/L Normal 136-145 [facility] Comment on above: Performed By: #### L IPID, CMP #### [facility] [address] [address] [address] Edna Machado Urea nitrogen [Mass/Vol] 11.0 mg/dL Normal 7.0-18.0 [facility] Comment on above: Performed By: #### L IPID, CMP #### [facility] [address] [address] [address] Edna Machado Urea nitrogen/Creatinine [Mass ratio] 13.3 mg/mg Normal [facility] Comment on above: Performed By: #### L IPID, CMP #### [facility] [address] [address] [address] Edna Machado Ambulatory Clinical Summaryo n 02-28-2020 Ambulatory Clinical Summary {[id number] Normal [facility] Patient Education 02-28-20 Patient Education Family [...] Document Reviewed: 11/02/2007 ExitCare? Patient Information ?[address] [facility] Urology Office/Clinic Noteon 02-28-2020 Urology Office/Clinic [...] nicotine dependence) 5. Anticoagulant long-term use (Z79.01: jail (current) use of anticoagulants) warfarin therapy I [...] Protein Urine Dipstick: Negative (02/28/20 08:57:00) Specific [place] Urine Dipstick: 1.020 (02/28/20 08:57:00) Urine Appearance Urine Dipstick: Clear (02/28/20 08:57:00) Urine Color Urine Dipstick: Yellow (02/28/20 08:57:00) Urobilinogen Urine Dipstick: Normal 0.2-1 EU/dl (02/28/20 08:57:00) pH Urine Dipstick: 5 (02/28/20 08:57:00) Normal [facility] Comment on above: Result Comment: Elec tronically Signed By: David DANIEL MD\.br\Date and Time Signed: 02/28/20 09:34 EST\.br\Electronically Co-Signed By: Lou Chavez MA\.br\Date and Time Co-Signed: 02/28/20 09:31 EST Reminderson 01-21-2020 Reminders - From: Mandy Bashir To: EU - Clinical; Sent: 01/08/2020 09:45:38 EDT Show up: 01/17/2020 09:45:00 EST Subject: renal US Due Date/Time: 01/22/2020 09:45:00 EST Reminder/Recall Pt sched 01/17/20 @ 7:45amBetsy for renal US, Order faxed Show PRW, pt to be called with results Please review Renal US and call pt with results.LG From: Mandy Bashir ([facility] - Clinical) To: David DANIEL MD; Sent: 01/20/2020 14:07:31 EST Show up: 01/20/2020 14:07:00 EST Subject: RE: renal US From: David DANIEL MD To: [facility] - Clinical; Sent: 01/20/2020 15:25:17 EST Show up: 01/20/2020 15:24:00 EST Subject: RE: renal US no stones. one cyst. no mass pw. Patient was notified of results.LG Normal [facility] RAD - Ultrasound Reporton RAD - Ultrasound Report [id number]#1. 00CD:127 Normal [facility] UroVysion Fish and Urine Cyt o ([facility])on 01-17-2020 [facility] & UC Diagnosis Info [facility] Comment on above: Result Comment: A:Ur ine,Urine:Voided [...] on: 01/17/2020 07:53:07 Performed By: #### 1 [id number] ####[facility] [address] [place] [address] Coding Summary.on 01-08-2020 Coding Summary. CODING DATE: 01/08/2020 FINAL [facility] STATUS: Home (Routine DC) PAYOR: Medicare APC DESCRIPTION 5372 Level 2 Urology and Related Services ADMIT DX: REASON FOR VISIT DX: R31.0 Gross hematuria FINAL DX: PRINCIPAL: R31.0 Gross hematuria SECONDARY: N40.1 Benign prostatic hyperplasia with lower urinary tract symptoms R31.29 Other microscopic hematuria I10 Essential (primary) hypertension I25.10 Atherosclerotic heart disease of [place] coronary artery without angina pectoris E78.5 Hyperlipidemia, unspecified E11.9 Type 2 diabetes mellitus without complications J44.9 Chronic obstructive pulmonary disease, unspecified E66.01 Morbid (severe) obesity due to excess calories Z68.41 Body mass index [BMI]40.0-44.9, adult I49.9 Cardiac arrhythmia, unspecified Z79.01 jail (current) use of anticoagulants Z79.84 jail (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 However, the narrative phrase printed from the coding software may appear abbreviated, or result in slightly different terminology. Coded By: Edwina Marie Date Saved: 01/08/2020 10:[address] [facility] Consent for Procedure/Surger yon 01-08-2020 Consent for Procedure/Surgery [id number]# 1.00CD:127 [facility] Discharge Instructionson Discharge Instructions [id number]# 1.00CD:127 [facility] History and Physicalon 01-07 History and Physical [id number]# 1.00CD:127 [facility] IntraOperative Documentson IntraOperative Documents [id number]# 1.00CD:127 [facility] Consent for Treatmenton 12-12 Consent for Treatment [id number] .00CD:127 [facility] Main OR Intraoperative Recor don 01-07-2020 Main OR Intraoperative Record IntraOp Document Type FTURO Summary Primary Physician: David DANIEL MD Finalized Date/Time: 01/07/20 10:17:52 Pt. Name: JORGE DAVIS /Sex: 1945 Male Med Rec #: [id number] Physician: David DANIEL MD Financial #: [id number] Pt. Type: O Room/Bed: / Admit/Disch: 01/07/20 09:23:05 - Institution: Case Times FTURO Entry 1 Patient Times In Room 01/07/20 10:00:00 Out Room 01/07/20 10:23:00 Procedure Times Start 01/07/20 10:11:00 Stop 01/07/20 10:18:00 Anesthesia Times Last Modified By: Harmony KILLIAN, Ronda SOLO 01/07/20 10:15:32 Case Attendance FTURO Entry 1 Entry 2 Entry 3 Case Attendee David DANIEL MD RN, JASWANTOR, Catherine WILSON, Maday Bond Role Performed Surgeon - Primary Chief Digital Media Officer - Primary Scrub - Primary Time In 01/07/20 10:00:00 01/07/20 10:00:00 01/07/20 10:00:00 Time Out 01/07/20 10:23:00 01/07/20 10:23:00 01/07/20 10:23:00 Procedure CYSTOSCOPY LOCAL(.) CYSTOSCOPY LOCAL(.) CYSTOSCOPY LOCAL(.) Comments Last Modified By: Harmony KILLIAN, JASWANTOR, Harmony KILLIAN, JASWANTOR, Harmony KILLIAN, Ronda SOLO 01/07/20 Ronda 01/07/20 Ronda 01/07/20 10:15:47 10:15:47 10:15:47 Surgical Procedures FTURO Entry 1 Procedure Description Procedure CYSTOSCOPY LOCAL Modifiers . Surgeon Description CYSTOSCOPY Primary Procedure Yes Primary Surgeon David DANIEL MD Start 01/07/20 10:11:00 Stop 01/07/20 10:18:00 Anesthesia Type Local Surgical Service Urology Wound Class 2 - Clean-Contaminated Last Modified By: Harmony KILLIAN, Ronda SOLO 01/07/20 10:15:44 General Case Data FTURO Pre-Care [...] David DANIEL MD, Verified (If Medication Participants GERMANIA Antunez RN, Applicable) Catherine Bond CST, Amber Time Out [...] GERMANIA Antunez RN, Ruthann 01/07/20 10:17 Normal [facility] Main OR Preoperative Recordo n 01-07-2020 Main OR Preoperative Record Holding Area Document Type FTURO Summary Primary Physician: David DANIEL MD Finalized Date/Time: 01/07/20 10:07:43 Pt. Name: JORGE DAVIS/Sex: 1945 Male Med Rec #: [id number] Physician: David DANIEL MD Financial #: [id number] Pt. Type: O Room/Bed: / Admit/Disch: 01/07/20 [...] Lens Implant, Jewelry Personal Items watch Limitations: [place] Comment: Complaints of Pain: No Skin Integrity [...] GERMANIA Antunez RN, Ruthann 01/07/20 10:07 Normal [facility] Operative Reporton 0 Operative Report Patient: JORGE [...] with antibiotic coverage, Follow up arranged. Normal [facility] Comment on above: Result Comment: Elec [...] have a fever over 100 degrees. Normal [facility] UroVysion Fish and Urine Cyt o ([facility])on 01-07-2020 [facility] Method of Extraction Voided Normal [facility] Comment on above: Performed By: #### 1 [id number] ####[facility] [address] [place] [address] [facility] Number of Jars 1 Bette loaiza [facility] Comment on above: Performed By: #### 1 [id number] ####[facility] [address] [place] [address] [facility] Specimen Urine Normal [facility] Comment on above: Performed By: #### 1 [id number] ####[facility] [address] [place] [address] [facility] Type of Service Technical Only Normal [facility] Comment on above: Performed By: #### 1 [id number] ####[facility] [address] [place] [address] ALLIED HEALTHon 12-24-2019 ALLIED HEALTH HNO ID: [id number] Author: Jessika (Ct) ERICA Davis Service: Radiology Author Type: Chief Green Officer Type: Allied Health Filed: 12/24/2019 9:54 AM [...] DATE: December 24, 2019 TIME: 9:54 AM Normal [facility] CT PULMONARY VEIN W IVCONon 12-24-2019 CT [...] 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 Spiral [...] as dissection, intramural hematoma, or contained rupture. Security Assurance Specialist dimensions of the thoracic aorta are [...] CT exam in 3 months is recommended. Streaming Media Specialist: [facility]il[facility] Transcribe Date/Time: Dec 24 2019 11:12A Dictated by : SARA SIMPSON MD This examination was interpreted and the report reviewed and electronically signed by: SARA SIMPSON MD on Dec 24 2019 12:47PM EST [id number] N ACTIONABLE [facility] NURSING PROGon 12-24-2019 NURSING PROG HNO ID: [id number] Author: Arlene (Rn) CONSTANTIN Chowdhury Service: Nursing Author Type: Registered Nurse Type: Nursing Progress Note Filed: 12/24/2019 11:00 AM Note Text: Nursing Progress Note Topic of Note: Daily Note Jorge Davis [id number] Pt SR. Procedure cancelled. H/L removed from CT scan. Dr. Nelson spoke with p0t. This note was completed by: Arlene Chowdhury, RN [facility] PROGRESSon 12-24-2019 PROGRESS HNO ID: [id number] Author: Ezequiel Nelson Service: Electrophysiology Author Type: Physician Type: Progress Notes Filed: 12/24/2019 10:44 AM Note Text: Scheduled for cardioversion, but in SR upon arrival. [facility] CNPNon 12-18-2019 CNPN Telephone (FVPRAD) RYANJORGE W ([id number]) 1945 M [facility]* Date Time Provider Department 12/18/19 SHAMA IBANEZ) FVPRANirmala During your visit today, we recorded the following information about you: Shama Ibanez PA-C, PA 12/18/2019 3:11 PM Signed Monitor done show persistent AF 100% burden Case discussed with Dr Denton and he recommends cardioversion Called and discussed this with patient, he is willing to proceed Lab and covid orders placed He will get labs done tomorrow at [facility] Sending to procedure schedulers for cardioversion scheduling. If possible try to arrange on 12/23 at in early afternoon as he will already be here and NPO for CT scan. If not possible on that day then please schedule at [facility] with available provider at patient's convenience Shama Ibanez PA-C. Johnny Diaz 12/19/2019 10:22 AM Signed Pts calling back in regards to below. Would like a return call with questions about the procedure. can be reached at [phone], ok to leave detailed message. Please advise. Laura Schneider APRN.TATA 12/19/2019 1:50 PM Signed Called . She had questions regarding where to report the day of the CT scan and DCCV. Advised to report to the main lobby and security will direct them to the appropriate locations. Laura Schneider APRN.[employer] Allergies As of Date: 12/18/2019 (No Known Allergies) Date Reviewed: 11/05/2019 Reviewed by: Lyndsay Higgins Ma - Fully Assessed Reason for Visit: Results [95] Primary Visit Diagnosis:Atrial fibrillation, persistent (HCC) [I48.19] Order(s):CBC + DIFF [SQCBCDIF] Order #: [id number] FUTURE BASIC METABOLIC PNL [SQBMP] Order #: [id number] FUTURE MAGNESIUM BLD [SQMG1] Order #: [id number] FUTURE PRE-PROCEDURE AND PRE-OPERATIVE COVID [SQPOCOVD] Order #: [id number] FUTURE CARDIOVERSION, ELECTIVE, ELECTRICAL [[id number]] Order #: [id number]: 1 Prescriptions as of 12/18/2019 Sig: APIXABAN [...] Atrial fibrillation (HCC) [I48.91] 07/08/2014 Atherosclerosis of [place] coronary artery of na*07/10/2015 Diabetes mellitus type 2, controlled, without c*07/10/2015 Atrial fibrillation, persistent (HCC) [I48.19] 07/22/2015 Paroxysmal atrial fibrillation (HCC) [I48.0] 12/04/2015 Paroxysmal atrial flutter (HCC) [I48.92] 05/30/2018 Obesity, Class III, BMI >= 40 [E66.01] 10/23/2019 Encounter Status:Closed by SHAMA IBANEZ PA-C on 12/18/19 [facility] HOSPon 12-18-2019 HOSP Patient:Jorge Davis MRN: Height:5' [...] [E78.5] Atrial fibrillation (HCC) [I48.91] Atherosclerosis of [place] coronary artery of [place] heart without angina pectoris [I25.10] Diabetes mellitus [...] Notes ( PROVIDER ADULT): Shama Ibanez PA-C, GARY 12/18/2019 3:11 PM Signed Monitor done show persistent AF 100% burden Case discussed with Dr Denton and he recommends cardioversion Called and discussed this with patient, he is willing to proceed Lab and covid orders placed He will get labs done tomorrow at [facility] Sending to procedure schedulers for cardioversion scheduling. If possible try to arrange on 12/23 at in early afternoon as he will already be here and NPO for CT scan. If not possible on that day then please schedule at [facility] with available provider at patient's convenience Shama Ibanez PA-C. Johnny Diaz 12/19/2019 10:22 AM Signed Pts calling back in regards to below. Would like a return call with questions about the procedure. can be reached at [phone], ok to leave detailed message. Please advise. Laura Schneider APRN.CNP 12/19/2019 1:50 PM Signed Called . She had questions regarding where to report the day of the CT scan and DCCV. Advised to report to the main lobby and security will direct them to the appropriate locations. Laura Schneider APRN.TATA [facility] NURSING PROGon 10-24-2019 Cholesterol [Mass/Vol] HNO ID: [id number] Author: Nga BriggsRn) CONSTANTIN Garcia Service: Nursing Author Type: Registered Nurse Type: Nursing Progress Note Filed: 10/24/2019 11:13 AM Note Text: Nursing Progress Note Topic of Note: Routine Reassessment Jorge Davis [id number]- Patient up in bed. Bilateral groins soft, tender, bilateral DP pulses palpable. Patient states no pain, is unhappy that he is not discharged yet. CREPE MAKER notified and will be up to D/C soon. This note was completed by: Nga Garcia RN [facility] NURSING PROG HNO ID: [id number] Author: Caridad BriggsRn) CONSTANTIN Alvarez Service: Nursing Author Type: Registered Nurse Type: Nursing Progress Note Filed: 10/24/2019 8:21 AM Note Text: Nursing Progress Note Patient Name: Jorge Davis Patient Location: [id number]/[facility]-[id number] Daily Note: 0800- Pt sitting up in bed, assessment charted per npr, IV patent, Bilat groins soft, tender,no s/s of any bleeding or infection, bilat pedal pulses palpated,call light within reach,am meds given,no pain,no issues. This note was completed by: Caridad Alvarez RN [facility] ANES POSTPROC EVALon 020 ANES POSTPROC EVAL HNO ID: [id number] Author: Murtaza Bauer Service: ? Author Type: Physician Type: Anesthesia Postprocedure Evaluation Filed: 10/23/2019 3:04 PM Note Text: POST ANESTHESIA EVALUATION NOTE : 1945 Procedure Summary Date: 10/23/19 Room / Location: [facility] EP ROOM 2 / [facility] EP Anesthesia Start: 830 Anesthesia Stop: 7 Procedures: COMPLETE EPS W/PVI ABLATION (N/A ) [...] October 23, 2019 TIME: 3:04 PM CSN: [id number] [facility] ANES PRE-OPon 10-23-2019 ANES PRE-OP HNO ID: [id number] Author: Murtaza Bauer Service: ? Author Type: [...] (obstructive sleep apnea) CARDIO (+) Atherosclerosis of [place] coronary artery of [place] heart without angina pectoris (+) Atrial fibrillation [...] Time BP 168/90 10/23/19 0631 Pulse 80 10/23/1931 Resp 18 10/23/1931 Temp 36.7 ?C (98.1 ?F) 10/23/19630 SpO2 [...] October 23, 2019 TIME: 7:27 AM CSN: [id number] Normal [facility] Basic Metabolic Panlon 10-22 Anion gap [Moles/Vol] 15 mmol/L Normal 9-18 [facility] Comment on above: Performed By: #### C GLORIA, BMP #### [place] [phone] Calcium [Mass/Vol] 9.1 mg/dL Normal 8.5-10.5 [facility] Comment on above: Performed By: #### C GLORIA, BMP #### [place] [phone] Chloride [Moles/Vol] 103 mmol/L Normal 98-110 [facility] Comment on above: Performed By: #### C GLORIA, BMP #### [place] [phone] CO2 [Moles/Vol] 21 mmol/L Low 23-32 [facility] Comment on above: Performed By: #### C BC, BMP #### [phone] Creatinine [Mass/Vol] 0.78 mg/dL Normal 0.70-1.40 [facility] Comment on above: Performed By: #### C BC, BMP #### [place] [phone] eGFR- Amer. >60 Normal >60 [facility] Comment on above: Performed By: #### C BC, BMP #### [place] [phone] GFR/1.73 sq M predicted among non-blacks MDRD (S/P/Bld) [Vol rate/Area] mL/min/{1.73_m2} Normal >60 [facility] Comment on above: Performed By: #### C BC, BMP #### [place] [phone] Glucose [Mass/Vol] 124 mg/dL High 65-100 [facility] Comment on above: Performed By: #### C BC, BMP #### [place] [phone] Potassium [Moles/Vol] 4.1 mmol/L Normal 3.5-5.0 [facility] Comment on above: Performed By: #### C BC, BMP #### [place] [phone] Sodium [Moles/Vol] 139 mmol/L Normal 135-146 [facility] Comment on above: Performed By: #### C BC, BMP #### [place] [phone] Urea nitrogen [Mass/Vol] 16 mg/dL Normal 10-25 [facility] Comment on above: Performed By: #### C BC, BMP #### [place] [phone] CBCon 10-23-2019 Absolute nRBC <0.01 Normal <0.01 [facility] Comment on above: Performed By: #### C BC, BMP #### [place] [phone] Erythrocyte distribution width (RBC) [Ratio] 14.7 % Normal 11.5-15.0 [facility] Comment on above: Performed By: #### C BC, BMP #### [place] [address] Hematocrit (Bld) [Volume fraction] 46.7 % Normal 39.0-51.0 [facility] Comment on above: Performed By: #### C BC, BMP #### [place] [phone] Hemoglobin (Bld) [Mass/Vol] 14.8 g/dL Normal 13.0-17.0 [facility] Comment on above: Performed By: #### C GLORIA, BMP #### [place] [phone] MCH (RBC) [Entitic mass] 28.7 pG Normal 26.0-34.0 [facility] Comment on above: Performed By: #### C BC, BMP #### [place] [phone] MCHC (RBC) [Mass/Vol] 31.7 g/dL Normal 30.5-36.0 [facility] Comment on above: Performed By: #### C BC, BMP #### [place] [phone] MCV (RBC) [Entitic vol] 90.7 fL Normal 80.0-100.0 [facility] Comment on above: Performed By: #### C BC, BMP #### [place] [address] Platelet mean volume (Bld) [Entitic vol] 10.0 fL Normal 9.0-12.7 [facility] Comment on above: Performed By: #### C BC, BMP #### [place] [address] Platelets (Bld) [#/Vol] 178 10*3/uL Normal 150-400 [facility] Comment on above: Performed By: #### C GLORIA, BMP #### [facility] [address] [place] [address] RBC (Bld) [#/Vol] 5.15 10*6/uL Normal 4.20-6.00 [facility] Comment on above: Performed By: #### C BC, BMP #### [place] [phone] [place] [address] WBC (Bld) [#/Vol] 6.73 10*3/uL Normal 3.70-11.00 [facility] Comment on above: Performed By: #### C BC, BMP #### [place] [address] ECG COMPLETEon 10-23-2019 ECG COMPLETE NAME : JORGE DAVIS PID : [id number] : 1945 Gender : Male Race : ORD : [id number] Procedure Date : Oct 23 2019 14:59:44 Edit Date : Oct 23 2019 17:01:19 Diagnosis:Sinus tachycardia IVCD, consider atypical RBBB Abnormal ECG Confirmed by KATRINA KELLEY MD (79) on 10/23/2019 5:01:18 PM Ventricular Rate : 101 BPM Atrial Rate : 101 BPM P-R Interval : 187 ms QRS Duration : 122 ms Q-T Interval : 386 ms QTC Calculation(Bazett) : 501 ms P [place] : 65 degrees R [place] : -32 degrees T [place] : 54 degrees Test Reason : Post-OP Location : [address] : [place] [address] Overread By : KATRINA KELLEY MD Edited By : KATRINA KELLEY MD Referred By : , Acquired by : Ale DIAMOND [facility] ECG COMPLETE NAME : JORGE DAVIS PID : [id number] : 1945 Gender : Male Race : ORD : [id number] Procedure Date : Oct 23 2019 07:03:28 Edit Date : Oct 23 2019 16:59:50 Diagnosis:Atrial fibrillation Abnormal ECG Confirmed by KATRINA KELLEY MD (79) on 10/23/2019 4:59:48 PM Ventricular Rate : 70 BPM Atrial Rate : 0 BPM P-R Interval : 120 ms QRS Duration : 109 ms Q-T Interval : 437 ms QTC Calculation(Bazett) : 472 ms R [place] : -21 degrees T [place] : 35 degrees Test Reason : Pre OP Location : 400 : FVEKG 6 Overread By : KATRINA KELLEY MD Edited By : KATRINA KELLEY MD Referred By : , Acquired by : , Normal [facility] HISTORY PHYSICALon 0 HISTORY PHYSICAL HNO ID: [id number] Author: Ruben Denton MD Service: Cardiovascular Disease [...] SURGICAL HISTORY OF minor hand surgery - MS ANESTH,TOTAL KNEE ARTHROPLASTY 2006 Right Knee - [...] October 23, 2019 TIME: 6:59 AM PAGER: [phone] CARD EP STAFF Pt seen and examined. The documented findings were individually confirmed, and the history was verified and corrected, if appropriate. I discussed the patient's management with the PA and reviewed their note. Additional Hx/summary is as follows: 74 YO male with persistent AF despite prior DCCV and dofetilide. He presents today for PVAI. Ruben Denton MD [facility] NURSING PROGon 10-23-2019 NURSING PROG HNO ID: [id number] Author: Nacho BriggsRn) CONSTANTIN Mensah Service: Nursing Author Type: Registered Nurse Type: Nursing Progress Note Filed: 10/24/2019 5:41 AM Note Text: Nursing Progress Note Patient Name: Jorge Davis Patient Location: [id number]/[facility] [id number] Pt resting quietly in room. R/L groins soft and without hematoma or bleeding. (Small pink drainage left groin noted). DP pulses palpable. No pain or complaints. CREPE MAKER cough noted. Cepacol ineffective. Obtained Tessalon perles [...] note was completed by: Nacho Mensah RN [facility] NURSING PROG HNO ID: [id number] Author: Marybeth BriggsRn) CONSTANTIN Parr Service: Nursing Author Type: Registered Nurse Type: Nursing Progress Note Filed: 10/23/2019 4:47 PM Note Text: Nursing Progress Note Topic of Note: Daily Note Jorge Davis [id number] pt. up to floor [facility], report received from Karie De [...] note was completed by: Marybeth Parr RN [facility] NURSING PROG HNO ID: [id number] Author: Celeste Andrews) CONSTANTIN Fay Service: Nursing [...] R.N. 1621 [facility] Normal [facility] Type and Screenon 10-23-2019 ABO/RH(D) Positive Normal [facility] Comment on above: Performed By: #### T SCR ####[facility] [place], [place] [phone] Urinalysison 10-23-2019 Bilirubin, Urine Negative Normal Negative [facility] Comment on above: Performed By: #### U A #### [address] Clarity (U) Clear Normal Clear [facility] Comment on above: Performed By: #### U A #### [place] [phone] Color (U) Light Yellow Critically abnormal Yellow [facility] Comment on above: Performed By: #### U A #### [place] [phone] Comments SEE COMMENT Normal [facility] Comment on above: Result Comment: Micr oscopic not warranted Performed By: #### U A #### [place] [phone] Glucose Ql (U) Negative Normal Negative [facility] Comment on above: Performed By: #### U A #### [address] Hemoglobin/Blood,Ur Negative Normal Negative [facility] Comment on above: Performed By: #### U A #### [address] Ketones Ql (U) Negative Normal Negative [facility] Comment on above: Performed By: #### U A #### [place] [phone] Leukest Negative Normal Negative [facility] Comment on above: Performed By: #### U A #### [place] [phone] Nitrite Ql (U) Negative Normal Negative [facility] Comment on above: Performed By: #### U A #### [place] [phone] pH (Bld) 6.5 Normal 5.0-8.0 [facility] Comment on above: Performed By: #### U A #### [place] [phone] Protein (U) [Mass/Vol] Negative Normal Negative [facility] Comment on above: Performed By: #### U A #### [facility] [address] [place] [address] Specific [place], Ur 1.015 Normal 1.005-1.030 [facility] Comment on above: Performed By: #### U A #### [place] [phone] [place] [address] Urobilinogen Qn (U) Negative Normal Negative [facility] Comment on above: Performed By: #### U A #### [place] [address] Lab Reportson 10-11-2019 Lab Reports [id number]. 00CD:127 Normal [facility] Confirm Blood Typeon 020 ABO/RH(D) Positive Normal [facility] Comment on above: Performed By: #### C ONABO ####[address] [phone] HOSPon 09-18-2019 HOSP Patient:Jorge Davis MRN: Height:5' [...] [E78.5] Atrial fibrillation (HCC) [I48.91] Atherosclerosis of [place] coronary artery of [place] heart without angina pectoris [I25.10] Diabetes mellitus [...] Progress Notes (CARD EPS MAIN): Jessika Villegas [facility] 10/22/2019 1:11 PM Signed October 22, 2019 1:10 PM Patient Name: Jorge Davis [id number] Contact Information: [phone] (home) [phone] (cell) Reason for Call: Patient scheduled for PVI ablation tomorrow at [facility] - what are his instructions regarding his eliquis ? Physician: Ruben Denton MD, RN, RN 10/22/2019 4:[address] Thomas instructions available in [facility] patient advised to hold Eliquis the morning of his procedure. HE stated understanding. Carmelina Bender RN Progress Notes (CARD EPS MAIN): Jessika Villegas [facility] 10/14/2019 3:44 PM Signed October 14, 2019 3:43 PM Patient Name: Jorge Davis [id number] Contact Information: [phone] (home) [phone] (cell) Last visit with EP Provider: 04/19/2019 Reason for Call: [facility]; gave to nurse to complete physician section Physician: Ruben Denton MD, RN, RN 10/16/2019 9:51 AM Signed Completed and returned to [facility]. Usha Bonilla RN Normal [facility] NURSING PROGon 09-18-2019 NURSING PROG HNO ID: [id number] Author: Arlene BriggsRn) [place] RN Service: Nursing Author Type: Registered Nurse Type: Nursing Progress Note Filed: 09/18/2019 9:57 AM Note Text: Nursing Progress Note Topic of Note: Daily Note Jorge Davis [id number] Pre op done. INR 4.3. Repeat in [...] note was completed by: Arlene Chowdhury RN [facility] Protimeon 09-18-2019 PT Coag (PPP) [Time] 51.3 s High 9.7-13.0 [facility] Comment on above: Performed By: #### P T #### [place] [address] PT Coag (PPP) [Time] 5.0 s High 0.9-1.3 [facility] Comment on above: Result Comment: Ashlie min K Antagonist (VKA) Therapeutic Range: INR 2 to 3 (Target INR of 2.5) Note: For patients treated with VKA drugs, such as warfarin, the [place] [employer] 2012 Guideline recommends [...] Chest 2012, 141:7S-47S Karen RA et al. [facility] 2017, 70: 252-289 Performed By: #### P T #### [place] [address] Type and Screenon 09-18-2019 ABO/RH(D) Positive Normal [facility] Comment on above: Performed By: #### T SCR ####[facility] [place], [place] [phone] HOSPon 06-17-2019 HOSP Patient:Jorge Davis MRN: Height:5' [...] [E78.5] Atrial fibrillation (HCC) [I48.91] Atherosclerosis of [place] coronary artery of [place] heart without angina pectoris [I25.10] Diabetes mellitus type 2, controlled, without complications (HCC) [E11.9] Persistent atrial fibrillation (HCC) [I48.19] Paroxysmal atrial fibrillation (HCC) [I48.0] Paroxysmal atrial flutter (HCC) [I48.92] Allergies: No Known Allergies Date Verified:09/11/19 Lab Values Lab Value Units Date High Low POTA* 4.3 mmol/L 09/11/2019 5.1 3.7 FISH* 50.1 % 09/11/2019 51.0 39.0 Progress Notes ([facility]): RT Chava 09/11/2019 3:23 PM Signed Radiology [...] 11, 2019 3:22 PM Progress Notes ([facility]): Venkat Evans MD 09/11/2019 2:16 PM Signed [place]: [place] [address] [facility] [place] [address] Primary Care Physician: Declan Swanson MD Jorge Davis is a 74 year old male that presents today for evaluation of NON OBS Coronary artery disease involving [place] coronary artery of [place] heart without angina pectoris Paroxysmal A-fib (HCC) [...] this pm 2. Coronary artery disease involving [place] coronary artery of [place] heart without angina pectoris - ICD9: 414.01, [...] ?ms QTC Calculation(Bazett) : 457 ?ms R Dallas : 0 ?degrees T [place] : 49 ?degrees PAST MEDICAL HISTORY Diagnosis Date - Acute gastric ulcer - Atrial fibrillation (HCC) - DM2 (diabetes mellitus, type 2) (HCC) - ED (erectile dysfunction) - Left ureteral calculus - Obstructive chronic bronchitis with exacerbation ([facility]) COPD - Perianal dermatitis - Tubular adenoma [...] SURGICAL HISTORY OF minor hand surgery - MS ANESTH,TOTAL KNEE ARTHROPLASTY 2006 Right Knee - [...] 69 Venkat Evans MD Previous Version Normal [facility] Vital Signs Date Time Vital Sign Value Performing Clinician Facility 12-18-2023 10:49-0400 Body height 167.64 cm [facility] 12-18-2023 10:49-0400 Body mass index (BMI) [Ratio] 41.6 kg/m2 [facility] 12-18-2023 10:49-0400 Body weight 117.02 kg [facility] 12-18-2023 10:49-0400 Diastolic blood pressure 83 mm[Hg] [facility] 12-18-2023 10:49-0400 Heart rate 76 /min [facility] 12-18-2023 10:49-0400 Respiratory rate 76 /min [facility] 12-18-2023 10:49-0400 Systolic blood pressure 151 mm[Hg] [facility] 12-08-2023 11:03-0400 Body mass index (BMI) [Ratio] 43.43 kg/m2 Venkat Emanuel MD Work Phone: [facility] 12-08-2023 11:03-0400 Body weight 118.39 kg Venkat Emanuel MD Work Phone: [facility] 12-08-2023 11:03-0400 Diastolic blood pressure 80 mm[Hg] Venkat Emanuel MD Work Phone: [facility] 12-08-2023 11:03-0400 Heart rate 88 /min Venkat Emanuel MD Work Phone: [facility] 12-08-2023 11:03-0400 SaO2% (BldA) [Mass fraction] 97 % Venkat Emanuel MD Work Phone: [facility] 12-08-2023 11:03-0400 Systolic blood pressure 142 mm[Hg] Venkat Emanuel MD Work Phone: [facility] 08-21-2023 11:37-0400 Body height 167.64 cm [facility] 08-21-2023 11:37-0400 Body mass index (BMI) [Ratio] 41.3 kg/m2 [facility] 08-21-2023 11:37-0400 Body weight 116.28 kg [facility] 08-21-2023 11:37-0400 Diastolic blood pressure 77 mm[Hg] [facility] 08-21-2023 11:37-0400 Heart rate 85 /min [facility] 08-21-2023 11:37-0400 Respiratory rate 12 /min [facility] 08-21-2023 11:37-0400 Systolic blood pressure 128 mm[Hg] [facility] 08-09-2023 13:44-0400 Body height 167.64 cm [facility] 08-09-2023 13:44-0400 Body mass index (BMI) [Ratio] 42.1 kg/m2 [facility] 08-09-2023 13:44-0400 Body weight 118.38 kg [facility] 08-09-2023 13:44-0400 Diastolic blood pressure 76 mm[Hg] [facility] 08-09-2023 13:44-0400 Heart rate 85 /min [facility] 08-09-2023 13:44-0400 Respiratory rate 16 /min [facility] 08-09-2023 13:44-0400 Systolic blood pressure 136 mm[Hg] [facility] 07-04-2023 08:58-0400 Body height 165.1 cm Shama Ibanez PA-C Work Phone: [facility] 07-04-2023 08:58-0400 Body mass index (BMI) [Ratio] 44.5 kg/m2 Shama Ibanez PA-C Work Phone: [facility] 07-04-2023 08:58-0400 Body weight 121.3 kg Shama Ibanez PA-C Work Phone: [facility] 07-04-2023 08:58-0400 Diastolic blood pressure 78 mm[Hg] Shama Ibanez PA-C Work Phone: [facility] 07-04-2023 08:58-0400 Heart rate 80 /min Shama Ibanez PA-C Work Phone: [facility] 07-04-2023 08:58-0400 Systolic blood pressure 146 mm[Hg] Shama Ibanez PA-C Work Phone: [facility] 06-05-2023 13:48-0400 Body weight 120.2 kg Venkat Emanuel MD Work Phone: [facility] 06-05-2023 13:48-0400 Diastolic blood pressure 78 mm[Hg] Venkat Emanuel MD Work Phone: [facility] 06-05-2023 13:48-0400 Heart rate 74 /min Venkat Emanuel MD Work Phone: [facility] 06-05-2023 13:48-0400 Systolic blood pressure 124 mm[Hg] Venkat Emanuel MD Work Phone: [facility] 03-23-2023 11:00-0500 Body height 167.64 cm Declan Swanson Other [employer] Other 03-23-2023 11:00-0500 Body mass index (BMI) [Ratio] 43.15 kg/m2 Declan Ball Other [employer] Other 03-23-2023 11:00-0500 Body weight 121.29 kg Declan Ball Other [employer] Other 03-23-2023 11:00-0500 Diastolic blood pressure 89 mm[Hg] Declan Ball Other [employer] Other 03-23-2023 11:00-0500 Systolic blood pressure 142 mm[Hg] Declan Ball Other [facility] Other 01-03-2023 11:45-0400 Body height 167.64 cm Declan Ball Other [facility] Other 01-03-2023 11:45-0400 Body mass index (BMI) [Ratio] 42.57 kg/m2 Declan Ball Other [facility] Other 01-03-2023 11:45-0400 Body weight 119.66 kg Declan Ball Other [facility] Other 01-03-2023 11:45-0400 Diastolic blood pressure 78 mm[Hg] Declan Ball Other [facility] Other 01-03-2023 11:45-0400 Respiratory rate 16 /min Declan Ball Other [facility] Other 01-03-2023 11:45-0400 Systolic blood pressure 128 mm[Hg] Declan Ball Other [facility] Other 12-14-2022 11:30-0400 Body height 167.64 cm Declan Ball Other [facility] Other 12-14-2022 11:30-0400 Body mass index (BMI) [Ratio] 43.61 kg/m2 Declan Ball Other [facility] Other 12-14-2022 11:30-0400 Body weight 122.56 kg Declan Ball Other [facility] Other 12-14-2022 11:30-0400 Diastolic blood pressure 86 mm[Hg] Declan Ball Other [facility] Other 12-14-2022 11:30-0400 Respiratory rate 12 /min Declan Ball Other [facility] Other 12-14-2022 11:30-0400 Systolic blood pressure 141 mm[Hg] Declan Ball Other [facility] Other 12-13-2022 09:58-0400 Diastolic blood pressure 70 mm[Hg] DO Declan Ball Work Phone: [facility] 12-13-2022 09:58-0400 Heart rate 56 /min DO Declan Ball Work Phone: [facility] 12-13-2022 09:58-0400 Respiratory rate 16 /min DO Declan Ball Work Phone: [facility] 12-13-2022 09:58-0400 SaO2% (BldA) [Mass fraction] 95 % DO Declan Ball Work Phone: [facility] 12-13-2022 09:58-0400 Systolic blood pressure 149 mm[Hg] DO Declan Ball Work Phone: [facility] 12-13-2022 09:15-0400 Inhaled oxygen flow rate 3 L/min DO Declan Ball Work Phone: [facility] 12-13-2022 08:53-0400 Body height 157.48 cm DO Declan Ball Work Phone: [facility] 12-13-2022 08:53-0400 Body weight 120.2 kg DO Declan Ball Work Phone: [facility] 11-04-2022 14:45-0400 Body height 167.64 cm Declan Ball Other [facility] Other 11-04-2022 14:45-0400 Body mass index (BMI) [Ratio] 43.64 kg/m2 Declan Ball Other [facility] Other 11-04-2022 14:45-0400 Body weight 122.65 kg Declan Ball Other [facility] Other 11-04-2022 14:45-0400 Diastolic blood pressure 87 mm[Hg] Declan Ball Other [facility] Other 11-04-2022 14:45-0400 Respiratory rate 16 /min Declan Ball Other [facility] Other 11-04-2022 14:45-0400 Systolic blood pressure 148 mm[Hg] Declan Ball Other [facility] Other 10-13-2022 11:00-0400 Body height 167.64 cm Declan Ball Other [facility] Other 10-13-2022 11:00-0400 Body mass index (BMI) [Ratio] 43.41 kg/m2 Declan Ball Other [facility] Other 10-13-2022 11:00-0400 Body weight 122.02 kg Declan Ball Other [facility] Other 10-13-2022 11:00-0400 Diastolic blood pressure 75 mm[Hg] Declan Ball Other [facility] Other 10-13-2022 11:00-0400 Respiratory rate 16 /min Declan Ball Other [facility] Other 10-13-2022 11:00-0400 Systolic blood pressure 132 mm[Hg] Declan Ball Other [facility] Other 09-15-2022 09:15-0400 Body height 167.64 cm Declan Ball Other [facility] Other 09-15-2022 09:15-0400 Body mass index (BMI) [Ratio] 43.22 kg/m2 Declan Ball Other [facility] Other 09-15-2022 09:15-0400 Body weight 121.47 kg Declan Ball Other [facility] Other 09-15-2022 09:15-0400 Diastolic blood pressure 81 mm[Hg] Declan Ball Other [facility] Other 09-15-2022 09:15-0400 Respiratory rate 12 /min Declan Ball Other [facility] Other 09-15-2022 09:15-0400 Systolic blood pressure 139 mm[Hg] Declan Ball Other [facility] Other 08-16-2022 11:30-0400 Body height 167.64 cm Declan Ball Other [facility] Other 08-16-2022 11:30-0400 Body mass index (BMI) [Ratio] 43.19 kg/m2 Declan Ball Other [facility] Other 08-16-2022 11:30-0400 Body weight 121.38 kg Declan Ball Other [facility] Other 08-16-2022 11:30-0400 Diastolic blood pressure 73 mm[Hg] Declan Ball Other [facility] Other 08-16-2022 11:30-0400 Respiratory rate 12 /min Declan Ball Other [facility] Other 08-16-2022 11:30-0400 Systolic blood pressure 124 mm[Hg] Declan Ball Other [facility] Other 06-24-2022 14:14-0400 Body height 165.1 cm Ruben Denton MD Work Phone: [facility] 06-24-2022 14:14-0400 Body weight 122.02 kg Ruben Denton MD Work Phone: [facility] 06-24-2022 14:14-0400 Diastolic blood pressure 82 mm[Hg] Ruben Denton MD Work Phone: [facility] 06-24-2022 14:14-0400 Heart rate 69 /min Ruben Denton MD Work Phone: [facility] 06-24-2022 14:14-0400 Systolic blood pressure 155 mm[Hg] Ruben Denton MD Work Phone: [facility] 05-16-2022 11:30-0500 Body height 167.64 cm Declan Ball Other [facility] Other 05-16-2022 11:30-0500 Body mass index (BMI) [Ratio] 44.87 kg/m2 Declan Ball Other [facility] Other 05-16-2022 11:30-0500 Body weight 126.1 kg Declan Ball Other [facility] Other 05-16-2022 11:30-0500 Diastolic blood pressure 82 mm[Hg] Declan Ball Other [facility] Other 05-16-2022 11:30-0500 Respiratory rate 12 /min Declan Ball Other [facility] Other 05-16-2022 11:30-0500 SaO2% (BldA) [Mass fraction] 97 % Declan Ball Other [facility] Other 05-16-2022 11:30-0500 Systolic blood pressure 122 mm[Hg] Declan Ball Other [facility] Other 03-22-2022 09:30-0500 Body height 167.64 cm Declan Ball Other [facility] Other 03-22-2022 09:30-0500 Body mass index (BMI) [Ratio] 44.41 kg/m2 Declan Ball Other [facility] Other 03-22-2022 09:30-0500 Body weight 124.83 kg Declan Ball Other [facility] Other 03-22-2022 09:30-0500 Diastolic blood pressure 82 mm[Hg] Declan Ball Other [facility] Other 03-22-2022 09:30-0500 Respiratory rate 20 /min Declan Ball Other [facility] Other 03-22-2022 09:30-0500 Systolic blood pressure 122 mm[Hg] Declan Ball Other [facility] Other 12-31-2021 13:06-0400 Body weight 122.02 kg Venkat Emanuel MD Work Phone: [facility] 12-31-2021 13:06-0400 Diastolic blood pressure 70 mm[Hg] Venkat Emanuel MD Work Phone: [facility] 12-31-2021 13:06-0400 Heart rate 84 /min Venkat Emanuel MD Work Phone: [facility] 12-31-2021 13:06-0400 SaO2% (BldA) [Mass fraction] 97 % Venkat Emanuel MD Work Phone: [facility] 12-31-2021 13:06-0400 Systolic blood pressure 110 mm[Hg] Venkat Emanuel MD Work Phone: [facility] 06-25-2021 13:14-0400 Body height 165.1 cm Ruben Denton MD Work Phone: [facility] 06-25-2021 13:14-0400 Body weight 124.74 kg Ruben Denton MD Work Phone: [facility] 06-25-2021 13:14-0400 Diastolic blood pressure 80 mm[Hg] Ruben Denton MD Work Phone: [facility] 06-25-2021 13:14-0400 Heart rate 69 /min Ruben Denton MD Work Phone: [facility] 06-25-2021 13:14-0400 Systolic blood pressure 132 mm[Hg] Ruben Denton MD Work Phone: [facility] 05-20-2021 10:00-0500 Body height 167.64 cm Bruce Shine II Other [facility] Other 05-20-2021 10:00-0500 Body mass index (BMI) [Ratio] 43.9 kg/m2 Bruce Shine II Other [facility] Other 05-20-2021 10:00-0500 Body weight 123.38 kg Bruce De Leonle II Other [facility] Other Encounters Encounter Date Encounter Type Care Provider Facility Start: 01-24-2024 End: 01-24-2024 Telephone encounter Ruben Denton MD Work Phone: Cardiology Start: 12-19-2023 End: 12-19-2023 Telephone encounter Venkat Evans MD Work Phone: Cardiology Start: 12-18-2023 End: 12-18-2023 ambulatory [facility] Work Phone: Start: 12-18-2023 End: 12-18-2023 Patient encounter procedure [facility] Work Phone: Start: 12-18-2023 Non-patient / Non-visit [facility] Work Phone: Start: 12-12-2023 End: 12-12-2023 Telephone encounter Ruben Denton MD Work Phone: Cardiology Comment on above: Received Outside Med ical Records Start: 12-08-2023 Non-patient / Non-visit [facility] Work Phone: Start: 12-08-2023 End: 12-08-2023 ambulatory VENKAT EVANS Facility:[facility] Start: 12-08-2023 End: 12-08-2023 Office outpatient visit 25 minutes Venkat Evans MD Work Phone: Cardiology Comment on above: Chronic diastolic he art failure (HCC) (Primary Dx); Atrial fibrillation, persistent (HCC); Obesity, Class III, 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); Mixed hyperlipidemia; Coronary artery disease involving [place] coronary artery of [place] heart without angina pectoris Start: 12-08-2023 End: 12-08-2023 ambulatory [facility] Facility:[facility] Start: 12-07-2023 Non-patient / Non-visit [facility] Work Phone: Start: 12-06-2023 Non-patient / Non-visit [facility] Work Phone: Start: 12-05-2023 Non-patient / Non-visit [facility] Work Phone: Start: 11-15-2023 End: [...] Med ical Records Start: 08-21-2023 End: 08-21-2023 [facility] Work Phone: Start: 08-21-2023 End: 08-21-2023 Patient encounter procedure [facility] Work Phone: Start: 08-09-2023 End: 08-09-2023 [facility] Work Phone: Start: 08-09-2023 End: 08-09-2023 Patient encounter procedure [facility] Work Phone: Start: 07-25-2023 Telephone encounter Ruben murillo MD Work Phone: Cardiology Comment on above: Received Outside Med ical Records (INR) Start: 07-04-2023 End: 07-04-2023 ambulatory DECLAN SWANSON Facility:[facility] Start: 07-04-2023 End: 07-04-2023 Patient encounter procedure Shama Ibanez PA-C Work Phone: Cardiology Comment on above: Atrial fibrillation, persistent (HCC) (Primary Dx); S/P ablation of atrial fibrillation; On continuous oral anticoagulation Start: 06-27-2023 Telephone encounter Ruben murillo MD Work Phone: Cardiology Comment on above: Received Outside Med ical Records Start: 06-23-2023 End: 06-23-2023 [facility] Work Phone: Start: 06-23-2023 End: 06-23-2023 Patient encounter procedure [facility] Work Phone: Start: 06-20-2023 End: 06-20-2023 ambulatory JARROD S LIEBENTHAL Not Available Start: 06-05-2023 End: 06-05-2023 ambulatory VENKAT EVANS Facility:[facility] Start: 06-05-2023 End: 06-05-2023 Patient encounter procedure [...] 03-23-2023 End: 03-23-2023 ambulatory Declan Swanson Other [facility] Other Start: 03-23-2023 Office outpatient vi sit 15 minutes Declan Swanson [facility] Start: 03-10-2023 End: 03-10-2023 ambulatory JARROD Alysia PARSONSJOANNE Not Available Start: 02-07-2023 Telephone encounter Ruben [...] 01-03-2023 End: 01-03-2023 ambulatory Declan Swanson Other [facility] Other Start: 01-03-2023 Office outpatient vi sit 15 minutes Declan Ball [facility] Start: 01-03-2023 Telephone encounter Declan Swanson [facility] Start: 01-02-2023 End: 01-02-2023 ambulatory Declan Ball Other [facility] Other Start: 01-02-2023 Office outpatient vi sit 15 minutes Declan Ball [facility] Start: 12-23-2022 Telephone encounter Ruben murillo MD Work Phone: Cardiology Comment on above: Received Outside Med ical Records Start: 12-20-2022 End: 12-20-2022 ambulatory Ruben Celis Other [facility] Other Start: 12-20-2022 Office outpatient vi sit 15 minutes Ruben Celis [facility] [place] Start: 12-14-2022 End: 12-14-2022 ambulatory Declan Swanson Other [facility] Other Start: 12-14-2022 Office outpatient vi sit 25 minutes Declan Ball [facility] Start: 12-13-2022 (Procedure) Short Ruben Celis [facility] Start: 12-13-2022 End: 12-13-2022 ambulatory Ruben Celis Facility:[facility] Start: 12-13-2022 End: 12-13-2022 Admission to same day surgery center DO Declan Ball Work Phone: [facility] Work Phone: Start: 12-13-2022 End: 12-13-2022 ambulatory DO Declan Ball Work Phone: [facility] Work Phone: Start: 11-24-2022 End: 11-24-2022 Patient encounter procedure DO Declan Swanson Work Phone: [facility] [address] Work Phone: Start: 11-24-2022 End: 11-24-2022 ambulatory DO Declan Swanson Work Phone: [facility] Work Phone: Start: 11-24-2022 Telephone encounter Declan [facility] Start: 11-04-2022 End: 11-04-2022 ambulatory Declan Swanson Other [facility] Other Start: 11-04-2022 Office outpatient vi sit 15 minutes Declan Swanson [facility] Start: 11-04-2022 Telephone encounter Declan [facility]YAN [facility] Start: 10-28-2022 Telephone encounter Ruben murillo MD Work Phone: Cardiology Comment on above: Received Outside Med ical Records Start: 10-26-2022 End: 10-26-2022 ambulatory Ruben Celis Other [facility] Other Start: 10-26-2022 Office outpatient vi sit 25 minutes Ruben Celis [facility] [place] Start: 10-24-2022 End: 10-24-2022 ambulatory Declan Swanson Other [facility] Other Start: 10-24-2022 Telephone encounter Declan [facility]AN [facility] Start: 10-13-2022 End: 10-13-2022 ambulatory eDclan Swanson Other [facility] Other Start: 10-13-2022 Office outpatient vi sit 15 minutes Declan Swanson [facility] Start: 10-13-2022 Telephone encounter Ruben murillo MD Work Phone: Cardiology Comment on above: Received Outside Med ical Records Start: 10-12-2022 Office outpatient vi sit 25 minutes Bruce Pacific II [facility] Start: 10-12-2022 End: 10-12-2022 ambulatory Declan Ball Facility:[facility] Start: 10-12-2022 End: 10-12-2022 ambulatory DO Declan Ball Work Phone: [facility] Work Phone: Start: 10-12-2022 End: 10-12-2022 Patient encounter procedure DO Declan Ball Work Phone: [facility] Start: 09-16-2022 Telephone encounter Ruben murillo MD Work Phone: Cardiology Comment on above: Received Outside Med ical Records (INR Report) Start: 09-15-2022 End: 09-15-2022 ambulatory Declan Ball Other [facility] Other Start: 09-15-2022 Office outpatient vi sit 15 minutes Declan Swanson [facility] Start: 09-07-2022 Telephone encounter Venkat gomez MD Work Phone: Cardiology Comment on above: Results Start: 09-01-2022 Telephone encounter Ruben murillo MD Work Phone: Cardiology Comment on above: Received Outside Med ical Records Start: 08-31-2022 End: 08-31-2022 ambulatory Declan Ball Other [facility] Other Start: 08-31-2022 Telephone encounter Declan Swanson [facility] Start: 08-29-2022 End: 08-29-2022 ambulatory Declan Ball Other [facility] Other Start: 08-29-2022 Telephone encounter Declan Ball [facility] Start: 08-16-2022 End: 08-16-2022 ambulatory Declan Ball Other [facility] Other Start: 08-16-2022 Patient encounter procedure Declan Ball [facility] Start: 08-16-2022 Telephone encounter Declan Ball [facility] Start: 07-21-2022 Telephone encounter Ruben murillo MD Work Phone: Cardiology Comment on above: Received Outside Med ical Records Start: 07-14-2022 Telephone encounter Venkat gomez MD Work Phone: Cardiology Comment on above: Results Start: 07-11-2022 End: 08-10-2022 ambulatory SHAIKH Julianne MORALES Facility:[facility] Start: 06-27-2022 End: 06-27-2022 ambulatory Bruce Shine II Other [facility] Other Start: 06-27-2022 Telephone encounter Ruben murillo [...] Class III, BMI >= 40; Atherosclerosis of [place] coronary artery of [place] heart without angina pectoris Start: 06-23-2022 Telephone encounter Ruben murillo MD Work Phone: Cardiology Comment on above: Received Outside Med ical Records Start: 06-13-2022 End: 07-08-2022 ambulatory SHAIKH Julianne MORALES Facility:[facility] Start: 05-27-2022 Telephone encounter Ruben murillo MD Work Phone: Cardiology Comment on above: Received Outside Med ical Records Start: 05-16-2022 End: 05-17-[address] DECALN SWANSON [facility] Other Start: 05-16-2022 Office outpatient vi sit 25 minutes [facility] Start: 05-11-2022 End: 06-10-[address] DECLAN SWANSON Facility:[facility] Start: 04-27-2022 End: 04-27-2022 ambulatory Declan Swanson Other [facility] Other Start: 04-27-2022 Telephone encounter Declan Swanson [facility] Start: 04-13-2022 End: 05-11-[address] DECLAN SWANSON Facility:[facility] Start: 03-22-2022 End: 03-22-2022 ambulatory Declan Swanson Other [facility] Other Start: 03-22-2022 Office outpatient vi sit 15 minutes Declan Swanson [facility] Start: 03-22-2022 Telephone encounter Declan Swanson [facility] Start: 03-21-2022 End: 03-21-2022 ambulatory Declan Swanson Other [facility] Other Start: 03-21-2022 Telephone encounter Declan Swanson [facility] Start: 03-14-2022 End: 04-13-2022 ambulatory SHAIKH Julianne [...] Start: 01-11-2022 End: 02-09-2022 ambulatory PIERRE H PAVAND Facility:[facility] Start: 01-05-2022 Telephone encounter Ruben murillo [...] atrial fibrillation (HCC); Coronary artery disease involving [place] coronary artery of [place] heart without angina pectoris; Controlled type 2 diabetes mellitus without complication, without long-term current use of insulin (HCC) Start: 12-21-2021 Telephone encounter Ruben murillo MD Work Phone: Cardiology Comment on above: Received Outside Med ical Records Start: 12-12-2021 End: 01-10-2022 ambulatory PIERRE H PAVAND Facility:[facility] Start: 12-07-2021 Telephone encounter Ruben murillo MD Work Phone: Cardiology Comment on above: Received Outside Med ical Records Start: 11-11-2021 End: 12-11-2021 ambulatory PIERRE Julianne MORALES Facility:[facility] Start: 10-11-2021 End: 11-10-2021 ambulatory SHAIKH Julianne MORALES Facility:[facility] Start: 09-24-2021 End: 09-25-[address] DECLAN SWANSON Facility:[facility] Start: 09-22-2021 End: 09-23-[address] DECLAN SWANSON Facility:[facility] Start: 09-10-2021 End: 10-08-2021 ambulatory PIERRE H JOSE ALBERTO Facility:[facility] Start: 07-08-2021 Telephone encounter Ruben murillo [...] (HCC); CHRISTIAN (obstructive sleep apnea); Atherosclerosis of [place] coronary artery of [place] heart without angina pectoris; Encounter for current [...] End: 05-20-2021 ambulatory Bruce Shine II Other [facility] Other Start: 05-20-2021 Office outpatient ne w 45 minutes Bruce Shine II [facility] Start: 04-21-2021 Telephone encounter Ruben murillo MD Work Phone: Cardiology Comment on above: Results (PT INR ) Start: 12-29-2020 Adult health examination Kalisarah Swanson Other [facility] Other Procedures Date Procedure Procedure Detail Performing [...] MR lumbar spine wo con DO Declan Swanson Work Phone: Start: 11-24-2022 XR pre/post mri xray DO Declan Swanson Work Phone: Start: 10-12-2022 Plain x-ray of pelvi s and lower extremity DO Declan Swanson Work Phone: Start: 10-12-2022 X-ray of both knees DO Declan Swanson Work Phone: Start: 10-23-2019 Antibody screen Comment on above: Performed By: #### T SCR ####[address] [id number] Start: 09-18-2019 Antibody screen Comment on above: Performed By: #### T SCR ####[address] [id number] Start: 12-10-2015 Screening for malign ant neoplasm of colon Declan Swanson Other Start: 06-03-2015 General examination of patient Declan Swanson Other Start: 11-04-2013 Screening for malign ant neoplasm of prostate Declan Swanson Other Depression screening Benjami n Ball Other Depression screening Benjami n Ball Other H/O: artificial joint Bruce Pacific II Other History of operative procedure on knee Bruce Pacific II Other Screening for malign ant neoplasm of colon Bruce Rl II Other Screening for malign ant neoplasm of prostate Declan Swanson Other Plan of Treatment Date Care Activity Detail Author Start: 03-16-2033 Urine microalbumin profile DTa P,Tdap,Td Vaccine (2 - Td or Tdap) [facility] Start: 06-21-2024 End: 06-21-2024 Patient encounter procedure 06/21/2024 11:30 AM EDT Office Visit Cardiology [id number] [place] [address] Ruben Denton MD [address] [place] [address] [place] [address] return in about 8 months (around 02/23/2023 Cardiology Comment on above: return in about 8 mo nths (around 02/23/2023 Start: 06-05-2024 End: 06-05-2024 Patient encounter procedure 06/05/2024 10:20 AM EDT Office Visit Cardiology [id number] [place] [address] [place] [address] [place] [address] Return in about 6 months (around 06/06/2024). Cardiology Comment on above: Return in about 6 mo nths (around 06/06/2024). Start: 06-04-2024 BP Controlled (<130/80) BP Con trolled (<130/80) [facility] Start: 03-08-2024 End: 03-08-2024 Patient encounter procedure 03/08/2024 2:00 PM EST Office Visit Cardiology [id number] [place] [address] Shama Ibanez PA-C [address] [place] [address] [place] in 4-8 weeks to followup Cardiology Comment on above: [place] in 4-8 weeks to followup Start: 02-13-2024 End: 02-13-2024 Patient encounter procedure 02/13/2024 1:00 PM EST Office Visit Cardiology [address] [place] [address] Alix Barrios APRN.[employer] [address] [place] [address] [place] in 4-8 weeks to followup Cardiology Comment on above: [place] in 4-8 weeks to followup Start: 12-08-2023 End: 12-08-2023 Patient encounter procedure Cardiology Comment on above: echo Return in about 6 mo nths (around 12/06/2023). Start: 12-06-2023 Acid Fast Culture Acid Fast Culture [facility] Start: 11-12-2023 Covid-19 Vaccine () Covid-19 Vaccine () [facility] Start: 11-12-2023 Covid-19 Vaccine () Covid-19 Vaccine () [facility] Start: 11-12-2023 Influenza vaccination [facility] Start: 03-13-2023 Advance Directive Discussion Advance Directive Discussion [facility] Start: 03-13-2023 Behavioral Health Screening Behavioral Health Screening [facility] Start: 03-13-2023 Depression Assessment Depression Ass essment [facility] Start: 12-31-2022 BP CONTROLLED (<130/80) BP CON TROLLED (<130/80) [facility] Start: 12-13-2022 [facility] Start: 11-11-2022 Covid-19 Vaccine () Covid-19 Vaccine () [facility] Start: 11-11-2022 Influenza vaccination [facility] Start: 03-13-2022 ADVANCE DIRECTIVE DISCUSSION ADVANCE DIRECTIVE DISCUSSION [facility] Start: 03-13-2022 DEPRESSION ASSESSMENT DEPRESSION ASS ESSMENT [facility] Start: 11-11-2021 Influenza vaccination INFLUENZA (#1) [facility] Start: 09-18-2021 Hepatitis B surface antibody level LDL CHOLESTEROL [facility] Start: 06-25-2021 End: 08-25-2021 CBC panel - Blood by Automated count CBC Lab Routine Acute on chronic diastolic heart failure (HCC) Primary hypertension Expected: 06/25/2021, Expires: 08/25/2021 [facility] Work Phone: Comment on above: Expected: 06/25/2021 , Expires: 08/25/2021 Start: 06-25-2021 End: 08-25-2021 Comprehensive metabolic 2000 panel - Serum or Plasma COMP METABOLIC PANEL Lab Routine Acute on chronic diastolic heart failure (HCC) Primary hypertension Expected: 06/25/2021, Expires: 08/25/2021 [facility] Work Phone: Comment on above: Expected: 06/25/2021 , Expires: 08/25/2021 Start: 06-25-2021 End: 08-25-2021 LIPID PANEL BASIC LIPID PANEL BASIC Lab Routine Acute on chronic diastolic heart failure (HCC) Primary hypertension Expected: 06/25/2021, Expires: 08/25/2021 [facility] Work Phone: Comment on above: Expected: 06/25/2021 , Expires: 08/25/2021 Start: 05-20-2021 COVID-19 VACCINE (4 - Booster for Moderna series) COVID-19 VACCINE (4 - Booster for Moderna series) [facility] Start: 03-21-2021 Hemoglobin A1c measurement HbA1C [facility] Start: 03-21-2021 Hemoglobin A1c/Hemoglobin.total in Blood HBA1C [facility] Start: 03-17-2021 COVID-19 VACCINE (4 - Booster for Moderna series) COVID-19 VACCINE (4 - Booster for Moderna series) [facility] Start: 03-17-2021 COVID-19 VACCINE (4 - Moderna series) COVID-19 VACCINE (4 - Moderna series) [facility] Start: 03-13-2021 ADVANCE DIRECTIVE DISCUSSION ADVANCE DIRECTIVE DISCUSSION [facility] Start: 03-13-2021 DEPRESSION ASSESSMENT DEPRESSION ASS ESSMENT [facility] Start: 11-11-2020 Influenza vaccination INFLUENZA (#1) [facility] Start: 11-01-2020 COVID-19 VACCINE (3 - Booster for Moderna series) COVID-19 VACCINE (3 - Booster for Moderna series) [facility] Start: 01-17-2020 RSV Vaccine (1 - 1-d ose 75+ series) RSV Vaccine (1 - 1-dose 75+ series) [facility] Start: 11-09-2015 Pneumococcal Vaccine : 65+ (2 - PCV) Pneumococcal Vaccine: 65+ (2 - PCV) [facility] Start: 11-09-2015 Pneumococcal Vaccine : 65+ (2 of 2 - PCV) Pneumococcal Vaccine: 65+ (2 of 2 - PCV) [facility] Start: 11-09-2015 PNEUMOCOCCAL: 65+ (2 - PCV) PNEUMOCOCCAL: 65+ (2 - PCV) [facility] Start: 2010 ADVANCE DIRECTIVE DISCUSSION ADVANCE DIRECTIVE DISCUSSION [facility] Start: 2005 Hepatitis B Vaccine (1 of 3 - Risk 3-dose series) Hepatitis B Vaccine (1 of 3 - Risk 3-dose series) [facility] Start: 2005 RSV Vaccine (1 - 1-d ose 60+ series) RSV Vaccine (1 - 1-dose 60+ series) [facility] Start: 1995 SHINGRIX VACCINE (1 of 2) SHAH GRIX VACCINE (1 of 2) [facility] Start: 01-17-1964 Urine microalbumin profile [facility] Start: 1963 ANNUAL PCP TEAM TRAPEZE ARTIST FRANCESCA DISEASE VISIT ANNUAL PCP TEAM CHRONIC DISEASE VISIT [facility] Start: 1963 Anxiety Screening Anxiety Screening [facility] Start: 1963 BP CONTROLLED (<130/80) BP CON TROLLED (<130/80) [facility] Start: 1963 Depression Screening Depression Scre ening [facility] Start: 1963 HEPATITIS C SCREENING HEPATITIS C SC [facility] Start: 1963 Hepatitis C screening Hepatitis C Sc [facility] Start: 1957 Adult depression scr eening assessment DEPRESSION SCREENING [facility] Start: 1955 3 comp foot exam completed DIABETIC FOOT EXAM [facility] Start: 1955 Diabetic foot examination Diabetic F oot Exam [facility] Start: 1955 Glaucoma screening Dilated Retinal E xam [facility] Start: 1955 Hepatitis B screening URINE ALBUMIN:CREATININE RATIO [facility] Start: 1955 Hepatitis C antibody , confirmatory test DILATED RETINAL EXAM [facility] End: 06-01-2022 ECG COMPLETE ECG COMPLETE ECG Routine Atrial fibrillation, persistent (HCC) 1 Occurrences starting 06/01/2021 until 06/01/2022 [facility] Work Phone: Comment on above: 1 Occurrences starti ng 06/01/2021 until 06/01/2022 End: 06-25-2022 ECG COMPLETE ECG COMPLETE ECG Routine Atrial fibrillation, persistent (HCC) 1 Occurrences starting 06/25/2021 until 06/25/2022 [facility] Work Phone: Comment on above: 1 Occurrences starti ng 06/25/2021 until 06/25/2022 End: 06-25-2023 ECG COMPLETE ECG COMPLETE ECG Routine Atrial fibrillation, persistent (HCC) 1 Occurrences starting 06/24/2022 until 06/25/2023 [facility] Work Phone: Comment on above: 1 Occurrences starti ng 06/24/2022 until 06/25/2023 ECG COMPLETE ECG COMPLETE ECG 06/05/2023 2:22 PM EDT [facility] End: 12-31-2022 Echocardiography ECHO Cardiology Routine Chronic diastolic heart failure (HCC) 1 Occurrences starting 12/31/2021 until 12/31/2022 [facility] Work Phone: Comment on above: 1 Occurrences starti ng 12/31/2021 until 12/31/2022 End: 06-04-2024 Echocardiography ECHO Cardiology Routine Chronic diastolic heart failure (HCC) 1 Occurrences starting 06/05/2023 until 06/04/2024 [facility] Work Phone: Comment on above: 1 Occurrences starti ng 06/05/2023 until 06/04/2024 Patient Education Felter Non Damian [employer] [facility] Work Phone: Patient referral [facility] Work Phone: [facility] Immunizations Immunization Date Immunization Notes Care Provider [facility] 01-25-2022 influenza, high dose seasonal, preservative-free Declan Swanson Other [facility] [employer] Other 01-25-2022 influenza virus vaccine, unspecified formulation Ruben Denton MD Work Phone: [facility] 01-20-2021 COVID-19 Vaccine Moderna - Documentation Purposes Only Declan Swanson Other [facility] 12-29-2020 influenza virus vaccine, split virus (incl. purified surface antigen) Declan Swanson Other [facility] [employer] Other 12-29-2020 influenza virus vaccine, unspecified formulation [facility] 06-01-2020 COVID-19 vaccine, fu ll dose (MODERNA) Ruben Denton MD Work Phone: [facility] 05-04-2020 COVID-19 vaccine, fu ll dose (MODERNA) Ruben Denton MD Work Phone: [facility] 01-02-2019 influenza virus vaccine, split virus (incl. purified surface antigen) Declan Swanson Other [facility] [employer] Other 01-02-2019 influenza virus vaccine, unspecified formulation [facility] 12-01-2017 influenza virus vaccine, split virus (incl. purified surface antigen) Declan Swanson Other [facility] [employer] Other 12-01-2017 influenza virus vaccine, unspecified formulation [facility] 12-01-2017 Seasonal trivalent influenza vaccine, adjuvanted, preservative free Ruben Denton MD Work Phone: [facility] 01-08-2016 seasonal influenza, intradermal, preservative free Ruben Denton MD Work Phone: [facility] 12-10-2015 influenza virus vaccine, split virus (incl. purified surface antigen) Declan Swanson Other [facility] [employer] Other 12-10-2015 influenza virus vaccine, unspecified formulation [facility] 12-10-2015 influenza, high dose seasonal, preservative-free Ruben Denton MD Work Phone: [facility] 06-04-2015 pneumococcal conjuga te vaccine, 13 valent Declan Swanson Other [facility] 02-09-2015 influenza, injectabl e, quadrivalent, preservative free Ruben Denton MD Work Phone: [facility] 11-08-2014 pneumococcal polysaccharide vaccine, 23 valent Ruben Denton MD Work Phone: [facility] 11-21-2013 tetanus and diphther ia toxoids, adsorbed, preservative free, for adult use (5 Lf of tetanus toxoid and 2 Lf of diphtheria toxoid) Declan Swanson Other [facility] 12-23-2012 tetanus and diphther ia toxoids, adsorbed, preservative free, for adult use (5 Lf of tetanus toxoid and 2 Lf of diphtheria toxoid) Declan Swanson Other [facility] 12-21-2011 pneumococcal polysaccharide vaccine, 23 valent Declan Swanson Other [facility] Payers Date Payer Category Payer Self-pay [id number] 2019 Unknown MMO MMO MEDICARE SUPPLEMENT [id number] 2019-Present [phone] [address] [place] [address] Indemnity [id number] 2019 Unknown MMO MMO MEDICARE SUPPLEMENT [id number] 2019-Present [phone] [address] [place] [address] Indemnity [id number] 2010 Medicare MEDICARE MEDICAR E A AND B [id number] 2010-Present [phone] [address] [address] [place] [address] Medicare [id number] 2010 Medicare MEDICARE MEDICAR E A AND B [id number] 2010-Present [phone] [place] [address] Medicare [id number] 1959 Medicare [id number] 1959 Unknown [id number] 2.16.840.1.087757.19 1945 Unknown [id number] 2.16.840.1.951426.3.579.2.593 1945 Unknown [id number] 2.16.840.1.983647.3.579.2.593 1945 Unknown [id number] 2.16.840.1.991017.3.579.2.593 1945 Unknown [id number] 2.16.840.1.230527.3.579.2.593 1945 Unknown [id number] 2.16.840.1.651030.3.579.2.593 1945 Unknown [id number] 2.16.840.1.751099.3.579.2.593 1945 Unknown [id number] 2.16.840.1.386103.3.579.2.593 1945 Unknown [id number] 2.16.840.1.370574.3.579.2.593 1945 Unknown [id number] 2.16.840.1.744249.3.579.2.593 1945 Unknown [id number] 2.16.840.1.813319.3.579.2.593 1945 Unknown [id number] 2.16.840.1.157514.3.579.2.593 1945 Unknown [id number] 2.16.840.1.980884.3.579.2.593 1945 Unknown [id number] 2.16.840.1.744666.3.579.2.593 1945 Unknown [id number] 2.16.840.1.095144.3.579.2.593 1945 Unknown [id number] 2.16.840.1.805986.3.579.2.593 1945 Unknown [id number] 2.16.840.1.113154.3.579.2.593 1945 Unknown [id number] 2.16.840.1.253746.3.579.2.593 1945 Unknown [id number] 2.16.840.1.436408.3.579.2.593 1945 Unknown [id number] 2.16.840.1.876130.3.579.2.1259 1945 Unknown [id number] 2.16.840.1.350971.3.579.2.1259 1945 Unknown [id number] 2.16.840.1.327759.3.579.2.1259 1945 Unknown [id number] 2.16840.1.875065.3.579.2.1259 1945 Unknown [id number] 2.16840.1.143929.3.579.2.1259 Unknown [id number] 2.16840.1.325180.19 Unknown [facility] Health Claims [id number] Unknown [id number] 2.16840.1.144896.3.579.2.531 Unknown [id number] 2.840.1.784484.3.579.2.531 Unknown [id number] 2.16840.1.465864.3.579.2.531 Social History Date Type Detail Facility Start: 06-18-2013 End: 06-05-2023 Tobacco smoking status NHIS Ex-smoker [facility] End: 12-11-2012 History of tobacco use Current smoker [facility] End: 12-11-2012 History of tobacco use Cigar Smoker [facility] Start: 06-18-2013 End: 06-05-2023 Tobacco use and exposure Smokeless tobacco non-user [facility] Start: 09-18-2020 End: 12-08-2023 Alcohol intake Ex-drinker (finding) [facility] Start: 1945 Sex Assigned At Not on file [facility] Start: 06-15-2021 End: 12-31-2021 Exposure to SARS-CoV-2 (event) Not sure [facility] Work Phone: Start: 06-25-2021 End: 06-05-2023 Sex Assigned At [facility] Start: 1945 Sex Assigned At Male F [facility] Start: 06-25-2021 End: 06-05-2023 History of Social function [facility] PHQ2 Score 0 [facility] Goals Date Patient Goal Desired Activity /State Personal health goal Clinical Notes 04-21-2021 to 01-24-2024 Telephone Encounter - Alisha Gomez RN - 01/24/2024 3:30 PM ESTTelephone Encounter - Alisha Gomez RN - 01/24/2024 3:30 PM ESTTelephone Encounter - Bryan Dwyer - 12/12/2023 2:57 PM EDT Note Date & Type Note Facility 01-24-2024 Telephone encounter Note Images from the original note were not included. [facility] 01-24-2024 Miscellaneous Notes Images from the original note were not included. Received INR LAB results from [facility]. Uploaded to [employer]. -Radha IC [id number] documented in this encounter [facility] 01-24-2024 Telephone encounter Note Received INR LAB results from [facility]. Uploaded to [employer]. -Radha IC 955 [facility] 12-19-2023 Telephone encounter Note Images from the original note were not included. Spoke with patients . Relayed Dr. Pineda message below. Patient is NOT taking Jardiance due to cost. Will adjust Lasix and recheck BNP. Appt scheduled end of Dec with Shama. Patient is requesting change to Susana instead of [place]. Will contact us if no improvement. Venkat Evans V, MD P Avw Card Nurse; P Avw Card Vacuum Repairer Tell pt pro bnp is high suggesting fluid overload I started Jardiance so make sure he is taking Increase lasix to 40 mg B ID for 5 days then once a day Recheck pro bnp in 4 weeks Reinforce salt restriction Please schedule earlier appt with GERMAIN in 4-8 weeks to followup Please tell pt to notify us if he is not improving [facility] 12-19-2023 Miscellaneous Notes Images from the original note were not included. Spoke with patients . Relayed Dr. Pineda message below. Patient is NOT taking Jardiance due to cost. Will adjust Lasix and recheck BNP. Appt scheduled end of Dec with Shama. Patient is requesting change to [place] instead of [place]. Will contact us if no improvement. Venkat Evans V, MD P Avw Card Nurse; P Avw Card Vacuum Repairer Tell pt pro bnp is high suggesting [...] is not improving documented in this encounter [facility] 12-12-2023 Telephone encounter Note Documentation scanned into EP outside database Scanned INR report into epic [facility] 12-12-2023 Miscellaneous Notes Documentation scanned into EP outside database Scanned INR report into epic documented in this encounter [facility] 12-08-2023 Note HNO ID: [id number] Author: VENKAT EVANS MD Service: ? Author Type: Physician Type: Progress Notes Filed: 12/08/2023 11:39 Note Text: Referring Physician: Venkat Evans [id number] [facility] [place] [address] Primary Care Physician: DO Jorge Unger Ryan [...] Continue staitn 5. Coronary artery disease involving [place] coronary artery of [place] heart without angina pectoris - ICD9: 414.01, [...] Date Value 09/18/2020 78 Venkat Evans MD [facility] 12-08-2023 History of Present illness Narrative Images from the original note were not included. Referring Physician: Venkat Evans [address] [facility] [place] [address] Primary Care Physician: Declan Swanson DO Jorge Davis is a 78 year old male that [...] Continue staitn 5. Coronary artery disease involving [place] coronary artery of [place] heart without angina pectoris - ICD9: 414.01, [...] Venkat Evans MD documented in this encounter [facility] 11-15-2023 Telephone encounter Note Documentation scanned into EP outside database Scanned INR results into epic [facility] 11-15-2023 Miscellaneous Notes Documentation scanned into EP outside database Scanned INR results into epic documented in this encounter [facility] 09-19-2023 Telephone encounter Note Documentation scanned into EP outside database Scanned INR results into epic [facility] 09-19-2023 Miscellaneous Notes Documentation scanned into EP outside database Scanned INR results into epic documented in this encounter [facility] 08-22-2023 Telephone encounter Note Documentation scanned into EP outside database Scanned INR results into epic [facility] 08-22-2023 Miscellaneous Notes Documentation scanned into EP outside database Scanned INR results into epic documented in this encounter [facility] 07-25-2023 Telephone encounter Note Documentation scanned into EP outside database Scanned INR results into Epic [facility] 07-25-2023 Miscellaneous Notes Documentation scanned into EP outside database Scanned INR results into Epic documented in this encounter [facility] 07-04-2023 History of Present illness Narrative Images from the original note were not included. [facility] Department of Cardiovascular Medicine SECTION OF CARDIAC PACING and ELECTROPHYSIOLOGY OUTPATIENT VISIT DATE July 04, 2023 OUTPATIENT VISIT TYPE ESTABLISHED PRIMARY CARE PHYSICIAN: Declan Swanson (Peggy) [address] [place] [address] CHIEF COMPLAINT: Cardiology follow up HISTORY OF [...] with more than 50% of the total [id number] time of the visit in counseling / coordination of care. documented in this encounter [facility] 07-04-2023 Note HNO ID: [id number] Author: SHAMA IBANEZ PA-C Service: ? Author Type: Physician Patient Registration Rep Type: Progress Notes Filed: 07/04/2023 10:19 Note Text: [facility] Department of Cardiovascular Medicine SECTION OF CARDIAC PACING and ELECTROPHYSIOLOGY OUTPATIENT VISIT DATE July 04, 2023 OUTPATIENT VISIT TYPE ESTABLISHED PRIMARY CARE PHYSICIAN: Declan Swanson (Peggy) [address] [place] [address] CHIEF COMPLAINT: Cardiology follow up HISTORY OF [...] KNEE ARTHROPLASTY 2006 Right Knee ARTHRP KNE CONDYLEANDPLATU MEDIALANDLAT COMPARTMENTS [...] wheezing or rhonchi (more content not included)... [facility] 07-04-2023 Instructions Shama Ibanez PA-C - 07/04/2023 9:58 AM EDT - No changes to medications today - Will have you see Dr Evans with echo as scheduled - Will have you see Dr Denton in 1 year - Call us sooner with any questions or concerns Shama Ibanez PA-C documented in this encounter [facility] 06-27-2023 Miscellaneous Notes Documentation scanned into EP outside database Scanned INR results into [employer] documented in this encounter [facility] 06-05-2023 Note HNO ID: [id number] Author: VENKAT EVANS MD Service: ? Author [...] Date Value 09/18/2020 78 Venkat Evans MD [facility] 06-05-2023 History of Present illness Narrative Referring Physician: No referring provider defined for this encounter. Primary Care Physician: DO Jorge Unger Kavita Davis is a 78 year old male that [...] - patient unsure of name. [employer], FD Superset potassium chloride ER (K-DUR, KLOR-CON) 20 [...] Venkat Evans MD documented in this encounter [facility] 05-30-2023 Miscellaneous Notes Documentation scanned into EP outside database Scanned into [employer] documented in this encounter [facility] 05-02-2023 Miscellaneous Notes Documentation scanned into EP outside database documented in this encounter [facility] 04-06-2023 Miscellaneous Notes Outside medical records (INR report 04/04/2023) scanned into [employer] and shared [employer] drive. documented in this encounter [facility] 03-23-2023 Evaluation note Encounter Date Diagnosis [...] further antibiotics necessary Call w/ increased tenderness [facility] Other 11-28-2023 Miscellaneous Notes* Telephone Encounter - Suman Garvin - 02/07/2023 9:31 AM EST Outside medical records (INR report 02/07/2023) scanned into [employer] and shared EP drive. documented in this [facility]11-01-2023 Miscellaneous Notes* Telephone Encounter - Suman Garvin - 01/11/2023 7:24 AM EDT Outside medical records (INR Report 01/10/2023) scanned into shared EP drive. documented in this [facility]10-26-2023 Miscellaneous Notes* Telephone Encounter - Suman Garvin - 01/05/2023 6:48 AM EDT Images from the original note were not included. Outside medical records (INR report 12/27/2022) scanned into shared EP drive. documented in this [facility]10-24-2023 Evaluation note* Encounter Date Diagnosis Assessment [...] but no change in treatment is necessary [facility] Other 10-23-2023 Evaluation note* Encounter Date Diagnosis [...] BS but no adjustment in treatment necessary [facility] Other [id number] Miscellaneous Notes* Telephone Encounter - Bobbi Day - 12/23/2022 7:48 AM EDT Patient records received via electronic fax. Uploaded to [employer]. INR 12.20.22 Bobbi Day [facility] note* Encounter Date Diagnosis Assessment [...] Above note written by Christian Damon MA, Fiscal Economist. Edited and approved by Dr. Ruben Celis MD. [facility] Other 10-04-2023 Evaluation note* Encounter Date Diagnosis [...] are maintaining regular scheduled appts with their camper assembler. No bleeding complications Dec, Type 2 diabetes [...] use, the patient reduces the risk for MN, CVA, HTN, cardiac dysrhythmias and sudden cardiac deaths.The patient is also aware of the association between CHRISTIAN and morning headaches, daytime somnolence, fatigue and obesity Unable to tolerate treatment, noncompliant Aware this would likely prevent samaritan of NSR Dec, Chronic venous insufficiency of [...] as needed. 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 Uploaded to [employer]. INR 8.17.23 Bobbi Day [facility]* Encounter Date Diagnosis Assessment [...] note writ ten by Christian Damon MA, Fiscal Economist. Edited and approved by Dr. Ruben Celis MD. [facility] Other 08-03-2023 Miscellaneous Notes* Telephone Encounter - Bobbi Day - 10/13/2022 3:54 PM EDT Patient records received via electronic fax. Uploaded to [employer]. INR 8.3.23 Bobbi Day [facility] Evaluation note* Encounter Date Diagnosis Assessment [...] Microalbumin, Dilated eye exam and Foot exam [facility] Other 08-02-2023 Evaluation note* Encounter Date Diagnosis [...] with me on a as needed basis. [facility] Other 07-07-2023 Miscellaneous Notes* Telephone Encounter - Suman Garvin - 09/16/2022 7:48 AM EDT Images from the original note were not included. Outside medical records (INR report) scanned into [employer] drive. [facility] Evaluation note* Encounter Date Diagnosis Assessment [...] Microalbumin, Dilated eye exam and Foot exam [facility] Other 06-28-2023 Miscellaneous Notes* Telephone Encounter - Orly Olivo MA - 09/07/2022 11:30 AM EDT Received lab results from [facility]. No upcoming appts. Sent for scanning. [facility]23 Miscellaneous Notes* Telephone Encounter - Bobbi Day - 09/01/2022 2:39 PM EDT Patient records received via electronic fax. Uploaded to [email or web address] Bobbi Day documented [facility] Evaluation note* Encounter Date Diagnosis Assessment [...] are maintaining regular scheduled appts with their camper assembler. Aug, Pulmonary nodule, right (ICD-10 - R91.1) CT: 12mm RUL, 11mm RLL - 2019 (stable since 2016) CT: 14mm R - [...] use, the patient reduces the risk for MN, CVA, HTN, cardiac dysrhythmias and sudden cardiac [...] High risk medication use (ICD-10 - Z79.899) [facility] Other 05-11-2023 Miscellaneous Notes* Telephone Encounter - Bobbi Day - 07/21/2022 12:00 PM EDT Patient records received via electronic fax. Uploaded to [employer]. INR 5.11.23 Bobbi Day documented [facility]05-04-[facility]23 Miscellaneous Notes* Telephone Encounter - Kayla [...] this year with me [facility]04[facility]23 Miscellaneous Notes* Telephone Encounter - Chiquita Soares RN - 06/27/2022 2:55 PM EDT Spoke to patient per MD request. Per Dr Denton: Can you call him and let him know I got his ECG printed out the way I wanted, and I do think he was in atrial fib on Monday at [place]? Tell him we are not changing anything now, but I wanted to follow up with him about this. Thanks TD Chiquita Soares RN documented [facility]04[facility] Evaluation note* Encounter Date Diagnosis Assessment [...] - aorta is borderline dilated 4.0 cm. [facility] Other 04-14-2023 History of Present illness Narrative* [...] (Hypertension) Dyslipidemia Atrial Fibrillation (Hcc) Atherosclerosis of [place] Coronary Artery of [place] Heart Without Angina Pectoris Diabetes Mellitus Type [...] phrases that may beinappropriate. documented in [facility]04[facility]13-[facility]23 Miscellaneous Notes* Telephone Encounter - Bobbi Day - 06/23/2022 11:30 AM EDT Patient records received via electronic fax. Uploaded to [employer]. INR 4.13.23 Bobbi Shay documented in this encounterZanesville City Hospital03-17-2023 Miscellaneous Notes* Telephone Encounter - Bobbi Day - 05/27/2022 9:01 AM EDT Patient records received via electronic fax. Uploaded to [employer] INR RESULTS Bobbi Day documented in this encounterZanesville City Hospital03-06-2023 Evaluation note* Encounter Date Diagnosis Assessment [...] are maintaining regular scheduled appts with their camper assembler. May, CHRISTIAN (obstructive sleep apnea) (ICD-10 - [...] past 2 years. No further screening required. [facility] Other 01-10-2023 Evaluation note* Encounter Date Diagnosis [...] which are reviewed at the office visit. [facility] Other 12-29-2022 Miscellaneous Notes* Telephone Encounter - Bobbi Day - 03/10/2022 9:28 AM EST Images from the original note were not included. Patient records received via electronic fax. Uploaded to [employer] Bobbi Day documented in this encounterZanesville City Hospital12-07-2022 NotePROCEDURE: XR FOOT LT MIN 3 [...] Electronically authenticated by: JAMIE FAROOQ Date: 2022-02-16 09:55[facility]12-07-2022 NotePROCEDURE: XR FOOT LT MIN 3 VIEWS, [...] Electronically authenticated by: JAMIE FAROOQ Date: 2022-02-16 09:55[facility]11-22-2022 Miscellaneous Notes* Telephone Encounter - Bobbi Day - 02/01/2022 4:02 PM EST Images from the original note were not included. Patient records received via electronic fax. Uploaded to [employer] Bobbi Day documented in this [facility]11-10-2022 Miscellaneous Notes* Telephone Encounter - Bobbi Day - 01/20/2022 4:51 PM EST Patient records received via electronic fax. Uploaded to [employer] Bobbi Day documented in this [facility]11-08-2022 Miscellaneous Notes* Telephone Encounter - Bobbi Day - 01/18/2022 2:49 PM EST Images from the original note were not included. Patient records received via electronic fax. Uploaded to [employer] Bobbi Day documented in this [facility]10-26-2022 Miscellaneous Notes* Telephone Encounter - Bobbi Day - 01/05/2022 8:57 AM EDT Images from the original note were not included. Patient records received via electronic fax. Uploaded to [employer] / [employer] Bobbi Day documented in this [facility]10-25-2022 Miscellaneous Notes* Telephone Encounter - Bobbi Day - 01/04/2022 4:17 PM EDT Images from the original note were not included. Patient records received via electronic fax. Uploaded to [employer] Bobbi Day documented in this [facility]10-21-2022 History of Present illness Narrative* Venkat Evans V, MD - 12/31/2021 1:00 PM EDT Referring Physician: Sara Carlson [id number] [address] [facility] [address] Primary Care Physician: DO Jorge Unger Ryan [...] Per EP 3. Coronary artery disease involving [place] coronary artery of [place] heart without angina pectoris- ICD9: 414.01, ICD10: [...] 78 Venkat Evans MD documented in this encounterZanesville City Hospital10-11-2022 Miscellaneous Notes* Telephone Encounter - Bobbi Day - 12/21/2021 4:17 PM EDT Images from the original note were not included. Patient records received via electronic fax. Uploaded to [employer]. Bobbi Day documented in this encounterZanesville City Hospital09-27-2022 Miscellaneous Notes* Telephone Encounter - Bobbi Day - 12/07/2021 2:04 PM EDT Patient records received via electronic fax. Uploaded to [employer] / [employer] Bobbi Day documented in this encounterZanesville City Hospital04-28-2022 Miscellaneous Notes* Telephone Encounter - Suman Garvin - 07/08/2021 4:17 PM EDT Images from the original note were not included. Outside medical records (INR report 07/08/2021) scanned into shared [employer] drive. documented in this [facility]04-15-2022 History of Present illness Narrative* Ruben [...] (Hypertension) Dyslipidemia Atrial Fibrillation (Hcc) Atherosclerosis of [place] Coronary Artery of [place] Heart Without Angina Pectoris Diabetes Mellitus Type [...] furosemide, a statin. INR is managed by [facility] and is checked monthly. No problems with [...] today in the office shows: NSR [id number] Low voltage P waves Impression and plan dictated separately; to be transcribed. Ruben Denton MD CC - Declan Swanson, DO This clinical note has been produced using speech recognition software and may contain errors related to that system including grammar, punctuation, spelling, gender and words and phrases that may beinappropriate. documented in this encounterZanesville City Hospital04-15-2022 History of Present illness Narrative* Sara Carlson APRN.SAFE AND VAULT INSTALLER - 06/25/2021 1:25 PM EDT Images from the original note were not included. [facility] [facility] Department of Cardiovascular Medicine SECTION OF CLINICAL CARDIOLOGY OUTPATIENT VISIT DATE June 25, 2021 OUTPATIENT VISIT TYPE ESTABLISHED PRIMARY CARE PHYSICIAN: Declan Swanson (Peggy) [address] [place] [address] CHIEF COMPLAINT: follow up HISTORY OF PRESENT ILLNESS: Mr. Davis is a 76 year old male who presents today for a cardiovascular medicine followed by Dr. Evans & Dr. Denton for non occlusive CAD , chronic diastolic heart failure, paroxysmal atrial fibrillation (s/p ablation 2019; [id number]: 3%; age, hypertension, diabetes type II), Other [...] failure, paroxysmal atrial fibrillation (s/p ablation 2019; [id number]: 3%; age, hypertension, diabetes type II), Other [...] with more than 50% of the total [id number] time of the visit in counseling / coordination of care. CONTACT INFORMATION: Sara Carlson APRN.CNP, 06/25/21 [facility] Cardiology Second Floor [address] [facility] [place] [address] documented in this encounterZanesville City Hospital03-31-2022 Miscellaneous Notes* Telephone Encounter - Suman Garvin - 06/10/2021 1:12 PM EDT Images from the original note were not included. Outside medical records (INR results 06/10/2021) scanned into [employer] drive. documented in this encounterZanesville City Hospital03-22-2022 Miscellaneous Notes* Telephone Encounter - Alisha Gomez RN - 06/01/2021 4:26 PM EDT Message left. Yes, he needs EKG. Ordered. (Not sure why he has 2 appts. on same day with same dept). Alisha Gomez RN * Telephone Encounter - Angela Collazo - 05/31/2021 11:30 AM EDT May 31, 2021 Patient Name:PATIENT Jorge Davis Contact Information: [phone] Last visit with EP Provider: 09/18/2020 Reason for Call: Patient would like to know if he should be getting an EKG prior to his appointment06/25. Last EKG was 09/18/20. Physician: Feliz Lipscomb MD Thank you, Angela Collazo The patient was informed that our caregivers are afforded 72 business hours to review and respond telephone messages. documented in this encounterZanesville City Hospital03-10-2022 Evaluation note* Encounter Date Diagnosis Assessment [...] us and we will see him sooner. [facility] Other 02-09-2022 Miscellaneous Notes* Telephone Encounter - Jessika Villegas [facility] - 04/21/2021 4:00 PM EST Received outside records - uploaded to Scanned Documents in [employer] through [employer] Appointment on Visit date not found Last appointment with this provider 04/01/2021 Last OV in this dept 04/19/2019 Jessika Escobar [facility]* Diagnosis Atrial fibrillation, persistent (HCC)- Primary Atrial fibrillation documented in this encounter [facility] note* Diagnosis Atrial fibrillation, persistent (HCC)- Primary Atrial fibrillation S/P ablation of atrial fibrillation Other postprocedural status Obesity, Class III, BMI >= 40 Morbid obesity Controlled type 2 diabetes mellitus without complication, without long-term current use of insulin (HCC) CHRISTIAN (obstructive sleep apnea) Obstructive sleep apnea (adult) (pediatric) Atherosclerosis of [place] coronary artery of [place] heart without angina pectoris Encounter for current long-term use of anticoagulants Long-term (current) use of anticoagulants documented in this encounter [facility] note* Diagnosis Acute on chronic diastolic heart failure (HCC)- Primary Acute on chronic diastolic heart failure Primary hypertension Unspecified essential hypertension documented in this encounter [facility] note* Diagnosis Chronic diastolic heart failure (HCC)- Primary Chronic diastolic heart failure Paroxysmal atrial fibrillation (HCC) Atrial fibrillation Coronary artery disease involving [place] coronary artery of [place] heart without angina pectoris Controlled type 2 diabetes mellitus without complication, without long-term current use of insulin (HCC) documented in this encounter [facility] noteNo [email or web address] Other Evaluation note* Diagnosis Atrial fibrillation, persistent [...] BMI >= 40 Morbid obesity Atherosclerosis of [place] coronary artery of [place] heart without angina pectoris documented in this encounter [facility] [email or web address] Other Evaluation noteNo assessment information available [facility] Work Phone: Evaluation note* Diagnosis Chronic diastolic heart failure (HCC)- Primary Chronic diastolic heart failure Atrial fibrillation, persistent (HCC) Atrial fibrillation Obesity, Class III, 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) Morbid obesity Mixed hyperlipidemia documented in this encounter [facility] note* Diagnosis Atrial fibrillation, persistent (HCC)- Primary Atrial fibrillation S/P ablation of atrial fibrillation Other postprocedural status On continuous oral anticoagulation Long-term (current) use of anticoagulants documented in this encounter [facility] note* Diagnosis Onset Date Resolution Status ASHD (arteriosclerotic heart disease) acute Acute bronchitis due to other specified organisms noneactive Contact dermatitis acute Type 2 diabetes mellitus with hyperglycemia acute [facility] Work Phone: Evaluation note* Diagnosis [...] acute Medicare annual wellness visit, subsequent noneactive [facility] Work Phone: Evaluation note* Diagnosis Chronic diastolic heart failure (HCC)- Primary Chronic diastolic heart failure Atrial fibrillation, persistent (HCC) Atrial fibrillation Obesity, Class III, 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) Morbid obesity Mixed hyperlipidemia Coronary artery disease involving [place] coronary artery of [place] heart without angina pectoris documented in this encounter [facility] note* Diagnosis Onset Date Resolution Status Afib acute ASHD (arteriosclerotic heart disease) acute Hypercholesteremia acute CHRISTIAN (obstructive sleep apnea) acute Traumatic hematoma of right lower leg with infection acute Type 2 diabetes mellitus with diabetic polyneuropathy acute Type 2 diabetes mellitus with hyperglycemia acute Venous insufficiency of both lower extremities acute [facility] Work Phone: History general Narrative - [...] porstate sx 2017 Hospitalization History see above [facility] Other History general Narrative - Reported* Type [...] heart cath 06/2015 Hospitalization History see above [facility] Other History general Narrative - ReportedNortJasper Other Reason for referral (narrative)* Outpatient Procedure (Routine) - Pending Review Specialty Diagnoses / Procedures Referred By Contac t Referred [facility] Diagnoses Atrial fibrillation, persistent (HCC) Procedures ECG COMPLETE ECG ROUTINE ECG W/LEAST 12 LDS W/I&R Dresing, Ruben J, MD [address] [place] [address] [address] Referral ID Status Reason Start Date Expiration Date Visits Requested Visits Authorized [id number] Pending Review Auto-Generat ed Referral 06/01/2021 06/01/2022 1 1 [facility] for referral (narrative)* Outpatient Procedure (Routine) - Closed Specialty Diagnoses / Procedures Referred By Contac t Referred To Contact [facility] [place] Diagnoses Atrial fibrillation, persistent (HCC) Procedures ECG COMPLETE ECG ROUTINE ECG W/LEAST 12 LDS W/I&R Ruben Denton MD [address] [id number] [place] [id number] Referral ID Status Reason Start Date Expiration Date V isits Requested Visits Authorized [id number] Closed Auto-Generate d Referral 06/25/2021 06/25/2022 1 1 [facility] for referral (narrative)* Outpatient Procedure (Routine) - Authorized Specialty Diagnoses / Procedures Referred By Contac t Referred To Contact [facility] Diagnoses Chronic diastolic heart failure (HCC) Procedures ECHO ECHO TTHRC R-T 2D W/WOM-MODE COMPL SPEC&[place] [address] [place] [address] [place] [address] Referral ID Status Reason Start Date Expiration Date Visits Requested Visits Authorized [id number] Authorized Auto-Generat ed Referral 12/31/2022 1 1 [facility] for referral (narrative)* Outpatient Procedure (Routine) - Pending Review Specialty Diagnoses / Procedures Referred By Contac t Referred To Contact [facility] [place] Diagnoses Atrial fibrillation, persistent (HCC) Procedures ECG COMPLETE ECG ROUTINE ECG W/LEAST 12 LDS W/I&R Ruben Denton MD [address] [place] [address] [address] Referral ID Status Reason Start Date Expiration Date Visits Requested Visits Authorized [id number] Pending Review Auto-Generat ed Referral 06/24/2022 06/24/2023 1 1 [facility] Outpatient Procedure (Routine) - Authorized Specialty Diagnoses / Procedures Referred By Contac t Referred To Contact [facility] Diagnoses Chronic diastolic heart failure (HCC) Procedures ECHO ECHO TTHRC R-T 2D W/WOM-MODE COMPL SPEC&[place] [address] [place] [address] [address] Referral ID Status Reason Start Date Expiration Date Visits Requested Visits Authorized [id number] Authorized Auto-Generat ed Referral 06/05/2023 06/04/2024 1 1 [facility] Summary Purpose Family History No Family [...] FoundDocuments on File Type Date Recorded Patient Security Assurance Specialist Expl anation Advance Directive(s) 12/24/2019 10:01 [...] Documents on File Type Date Recorded Patient Security Assurance Specialist Expl anation Advance Directive(s) 12/24/2019 10:01 [...] 023 7:44am Hospital Course Note HNO ID: [id number] Author: Kandice Carlson Service: [facility] Author Type: Nurse Practitioner Type: Discharge [...] (more content not included)... Note HNO ID: [id number] Author: Sarah Kramer (Aa) Service: ? Author Type: Recycle Worker Type: Anesthesia Procedure Notes Filed: 10/23/2019 9:12 [...] not included)... Procedure Findings Note HNO ID: [id number] Author: Sarah Kramer (Aa) Service: ? Author Type: Recycle Worker Type: Anesthesia Procedure Notes Filed: 10/23/2019 9:12 [...] section and content) DATE CREATED AUTHOR 12/24/2019 [facility] DATE CREATED AUTHOR AUTHOR'S ORGANIZ ATION 02/29/2020 [facility] DATE CREATED AUTHOR AUTHOR'S ORGANIZ ATION 08/19/2022 [facility] DATE CREATED AUTHOR AUTHOR'S ORGANIZ ATION 12/21/2022 [facility] DATE CREATED AUTHOR AUTHOR'S ORGANIZ ATION 10/06/2023 [facility] DATE CREATED AUTHOR AUTHOR'S ORGANIZ ATION 12/09/2023 [facility] DATE CREATED AUTHOR AUTHOR'S ORGANIZ ATION 01/27/2024 [facility] Source Comments (unrecognize d section and content) In the event this informatio n is protected by the Federal Confidentiality of Alcohol and Drug Abuse Patient Records regulations: The Federal rules restrict any use of the information to criminally investigate or prosecute any alcohol or drug abuse patient.[facility] HospitalIn the event this information is protected by the Federal Confidentiality of Alcohol and Drug Abuse Patient Records regulations: The Federal rules restrict any use of the information to criminally investigate or prosecute any alcohol or drug abuse patient.[facility] HospitalIn the event this information is protected by the Federal Confidentiality of Alcohol and Drug Abuse Patient Records regulations: The Federal rules restrict any use of the information to criminally investigate or prosecute any alcohol or drug abuse patient.[facility] HospitalIn the event this information is protected by the Federal Confidentiality of Alcohol and Drug Abuse Patient Records regulations: The Federal rules restrict any use of the information to criminally investigate or prosecute any alcohol or drug abuse patient.[facility] HospitalIn the event this information is protected by the Federal Confidentiality of Alcohol and Drug Abuse Patient Records regulations: The Federal rules restrict any use of the information to criminally investigate or prosecute any alcohol or drug abuse patient.[facility] HospitalIn the event this information is protected by the Federal Confidentiality of Alcohol and Drug Abuse Patient Records regulations: The Federal rules restrict any use of the information to criminally investigate or prosecute any alcohol or drug abuse patient.[facility] HospitalIn the event this information is protected by the Federal Confidentiality of Alcohol and Drug Abuse Patient Records regulations: The Federal rules restrict any use of the information to criminally investigate or prosecute any alcohol or drug abuse patient.[facility] HospitalIn the event this information is protected by the Federal Confidentiality of Alcohol and Drug Abuse Patient Records regulations: The Federal rules restrict any use of the information to criminally investigate or prosecute any alcohol or drug abuse patient.[facility] HospitalIn the event this information is protected by the Federal Confidentiality of Alcohol and Drug Abuse Patient Records regulations: The Federal rules restrict any use of the information to criminally investigate or prosecute any alcohol or drug abuse patient.[facility] HospitalIn the event this information is protected by the Federal Confidentiality of Alcohol and Drug Abuse Patient Records regulations: The Federal rules restrict any use of the information to criminally investigate or prosecute any alcohol or drug abuse patient.[facility] HospitalIn the event this information is protected by the Federal Confidentiality of Alcohol and Drug Abuse Patient Records regulations: The Federal rules restrict any use of the information to criminally investigate or prosecute any alcohol or drug abuse patient.[facility] HospitalIn the event this information is protected by the Federal Confidentiality of Alcohol and Drug Abuse Patient Records regulations: The Federal rules restrict any use of the information to criminally investigate or prosecute any alcohol or drug abuse patient.[facility] HospitalIn the event this information is protected by the Federal Confidentiality of Alcohol and Drug Abuse Patient Records regulations: The Federal rules restrict any use of the information to criminally investigate or prosecute any alcohol or drug abuse patient.[facility] HospitalIn the event this information is protected by the Federal Confidentiality of Alcohol and Drug Abuse Patient Records regulations: The Federal rules restrict any use of the information to criminally investigate or prosecute any alcohol or drug abuse patient.[facility] HospitalIn the event this information is protected by the Federal Confidentiality of Alcohol and Drug Abuse Patient Records regulations: The Federal rules restrict any use of the information to criminally investigate or prosecute any alcohol or drug abuse patient.[facility] HospitalIn the event this information is protected by the Federal Confidentiality of Alcohol and Drug Abuse Patient Records regulations: The Federal rules restrict any use of the information to criminally investigate or prosecute any alcohol or drug abuse patient.[facility] HospitalIn the event this information is protected by the Federal Confidentiality of Alcohol and Drug Abuse Patient Records regulations: The Federal rules restrict any use of the information to criminally investigate or prosecute any alcohol or drug abuse patient.[facility] HospitalIn the event this information is protected by the Federal Confidentiality of Alcohol and Drug Abuse Patient Records regulations: The Federal rules restrict any use of the information to criminally investigate or prosecute any alcohol or drug abuse patient.[facility] HospitalIn the event this information is protected by the Federal Confidentiality of Alcohol and Drug Abuse Patient Records regulations: The Federal rules restrict any use of the information to criminally investigate or prosecute any alcohol or drug abuse patient.[facility] HospitalIn the event this information is protected by the Federal Confidentiality of Alcohol and Drug Abuse Patient Records regulations: The Federal rules restrict any use of the information to criminally investigate or prosecute any alcohol or drug abuse patient.[facility] HospitalIn the event this information is protected by the Federal Confidentiality of Alcohol and Drug Abuse Patient Records regulations: The Federal rules restrict any use of the information to criminally investigate or prosecute any alcohol or drug abuse patient.[facility] HospitalIn the event this information is protected by the Federal Confidentiality of Alcohol and Drug Abuse Patient Records regulations: The Federal rules restrict any use of the information to criminally investigate or prosecute any alcohol or drug abuse patient.[facility] HospitalIn the event this information is protected by the Federal Confidentiality of Alcohol and Drug Abuse Patient Records regulations: The Federal rules restrict any use of the information to criminally investigate or prosecute any alcohol or drug abuse patient.[facility] HospitalIn the event this information is protected by the Federal Confidentiality of Alcohol and Drug Abuse Patient Records regulations: The Federal rules restrict any use of the information to criminally investigate or prosecute any alcohol or drug abuse patient.[facility] HospitalIn the event this information is protected by the Federal Confidentiality of Alcohol and Drug Abuse Patient Records regulations: The Federal rules restrict any use of the information to criminally investigate or prosecute any alcohol or drug abuse patient.[facility] HospitalIn the event this information is protected by the Federal Confidentiality of Alcohol and Drug Abuse Patient Records regulations: The Federal rules restrict any use of the information to criminally investigate or prosecute any alcohol or drug abuse patient.[facility] HospitalIn the event this information is protected by the Federal Confidentiality of Alcohol and Drug Abuse Patient Records regulations: The Federal rules restrict any use of the information to criminally investigate or prosecute any alcohol or drug abuse patient.[facility] HospitalIn the event this information is protected by the Federal Confidentiality of Alcohol and Drug Abuse Patient Records regulations: The Federal rules restrict any use of the information to criminally investigate or prosecute any alcohol or drug abuse patient.[facility] HospitalIn the event this information is protected by the Federal Confidentiality of Alcohol and Drug Abuse Patient Records regulations: The Federal rules restrict any use of the information to criminally investigate or prosecute any alcohol or drug abuse patient.[facility] the event this information is protected by the Federal Confidentiality of Alcohol and Drug Abuse Patient Records regulations: The Federal rules restrict any use of the information to criminally investigate or prosecute any alcohol or drug abuse patient.[facility]In the event this information is protected by the Federal Confidentiality of Alcohol and Drug Abuse Patient Records regulations: The Federal rules restrict any use of the information to criminally investigate or prosecute any alcohol or drug abuse patient.[facility]In the event this information is protected by the Federal Confidentiality of Alcohol and Drug Abuse Patient Records regulations: The Federal rules restrict any use of the information to criminally investigate or prosecute any alcohol or drug abuse patient.[facility]In the event this information is protected by the Federal Confidentiality of Alcohol and Drug Abuse Patient Records regulations: The Federal rules restrict any use of the information to criminally investigate or prosecute any alcohol or drug abuse patient.[facility]In the event this information is protected by the Federal Confidentiality of Alcohol and Drug Abuse Patient Records regulations: The Federal rules restrict any use of the information to criminally investigate or prosecute any alcohol or drug abuse patient.[facility]In the event this information is protected by the Federal Confidentiality of Alcohol and Drug Abuse Patient Records regulations: The Federal rules restrict any use of the information to criminally investigate or prosecute any alcohol or drug abuse patient.[facility]In the event this information is protected by the Federal Confidentiality of Alcohol and Drug Abuse Patient Records regulations: The Federal rules restrict any use of the information to criminally investigate or prosecute any alcohol or drug abuse patient.[facility]In the event this information is protected by the Federal Confidentiality of Alcohol and Drug Abuse Patient Records regulations: The Federal rules restrict any use of the information to criminally investigate or prosecute any alcohol or drug abuse patient.[facility]In the event this information is protected by the Federal Confidentiality of Alcohol and Drug Abuse Patient Records regulations: The Federal rules restrict any use of the information to criminally investigate or prosecute any alcohol or drug abuse patient.[facility]In the event this information is protected by the Federal Confidentiality of Alcohol and Drug Abuse Patient Records regulations: The Federal rules restrict any use of the information to criminally investigate or prosecute any alcohol or drug abuse patient.[facility]In the event this information is protected by the Federal Confidentiality of Alcohol and Drug Abuse Patient Records regulations: The Federal rules restrict any use of the information to criminally investigate or prosecute any alcohol or drug abuse patient.[facility]In the event this information is protected by the Federal Confidentiality of Alcohol and Drug Abuse Patient Records regulations: The Federal rules restrict any use of the information to criminally investigate or prosecute any alcohol or drug abuse patient.[facility]In the event this information is protected by the Federal Confidentiality of Alcohol and Drug Abuse Patient Records regulations: The Federal rules restrict any use of the information to criminally investigate or prosecute any alcohol or drug abuse patient.[facility]In the event this information is protected by the Federal Confidentiality of Alcohol and Drug Abuse Patient Records regulations: The Federal rules restrict any use of the information to criminally investigate or prosecute any alcohol or drug abuse patient.[facility]In the event this information is protected by the Federal Confidentiality of Alcohol and Drug Abuse Patient Records regulations: The Federal rules restrict any use of the information to criminally investigate or prosecute any alcohol or drug abuse patient.[facility] Reason for Visit (unrecogniz ed section [...] December 18, 2023 End: December 18, 2023 Stud Setter Relationship Specialty Start Date End Date Declan Swanson DO PCP - General Internal Medicine 06/04/13 Stud Setter Relationship Specialty Start Date End Date Declan Swanson DO PCP - General Internal Medicine 06/04/13 Stud Setter Relationship Specialty Start Date End Date Declan Swanson DO PCP - General Internal Medicine 06/04/13 Stud Setter Relationship Specialty Start Date End Date Declan Swanson DO PCP - General Internal Medicine 06/04/13 Stud Setter Relationship Specialty Start Date End Date Declan Swanson DO PCP - General Internal Medicine 06/04/13 Stud Setter Relationship Specialty Start Date End Date Declan Swanson DO PCP - General Internal Medicine 06/04/13 Stud Setter Relationship Specialty Start Date End Date Declan Swanson DO PCP - General Internal Medicine 06/04/13 Stud Setter Relationship Specialty Start Date End Date Declan Swanson DO PCP - General Internal Medicine 06/04/13 Stud Setter Relationship Specialty Start Date End Date Declan Swanson DO PCP - General Internal Medicine 06/04/13 Stud Setter Relationship Specialty Start Date End Date Declan Swanson DO PCP - General Internal Medicine 06/04/13 Team Status: Inactive Member Role Status Dates Declan Swanson DO Primary Care Provider Active Bruce Shine II, MD Attending Provider Active Stud Setter Relationship Specialty Start Date End Date Declan Swanson DO PCP - General Internal Medicine 06/04/13 Team Status: Inactive Member Role Status Dates Declan Swanson DO Primary Care Provider Active Ruben Celis MD Attending Provider Active Stud Setter Relationship Specialty Start Date End Date Declan Swanson DO PCP - General Internal Medicine 06/04/13 Stud Setter Relationship Specialty Start Date End Date Declan Swanson DO PCP - General Internal Medicine 06/04/13 Stud Setter Relationship Specialty Start Date End Date Declan Swanson DO PCP - General Internal Medicine 06/04/13 Team Status: Inactive Member Role Status Dates Declan Swanson DO Primary Care Provide r, Attending Provider Active Start: June 23, 2023 End: June 23, 2023 Stud Setter Relationship Specialty Start Date End Date Declan Swanson DO PCP - General Internal Medicine 06/04/13 Stud Setter Relationship Specialty Start Date End Date Declan [...] August 21, 2023 End: August 21, 2023 Stud Setter Relationship Specialty Start Date End Date Declan Swanson DO PCP - General Internal Medicine 06/04/13 Stud Setter Relationship Specialty Start Date End Date Declan Swanson DO PCP - General Internal Medicine 06/04/13 Stud Setter Relationship Specialty Start Date End Date Declan Swanson DO PCP - General Internal Medicine 06/04/13 Venkat Evans V, MD [address] [place] [id number] Primary Staff Physician Cardiology 01/24/24 Goals (unrecognized section and content) Goals may [...] BE BASED ON THE PRIMARY CLINICAL RECORDS. [employer] [facility]. provides no warranty or guarantee of the accuracy or completeness of information in this document.
== END 2024-02-02 10:29 | disposition home or self-care (01) ==
LOC: WC 10:28
PROVIDERS: PCP Internal Medicine; Visit Provider Podiatrist Foot & Ankle Surgery
DX: I70.232 Atherosclerosis of native arteries of right leg with ulceration of calf (principal); L97.212 Non-pressure chronic ulcer of right calf with fat layer exposed
CPT/HCPCS: G0463

== ENCOUNTER 2024-02-12 04:25 | Outpatient (RCR) | payer MEDICARE, OTHER, SELFPAY | END 2024-03-12 09:28 | disposition home or self-care (01) | LOC: MM 04:25 | PROVIDERS: PCP Internal Medicine; Visit Provider Internal Medicine | DX: Z51.81 Encounter for therapeutic drug level monitoring (principal); Z79.01 Long term (current) use of anticoagulants | CPT/HCPCS: 85610; G0463 ==

== ENCOUNTER 2024-03-14 00:54 | Outpatient (RCR) | payer MEDICARE, OTHER, SELFPAY | END 2024-04-12 14:44 | disposition home or self-care (01) | LOC: MM 00:54 | PROVIDERS: PCP Internal Medicine; Visit Provider Internal Medicine | DX: Z51.81 Encounter for therapeutic drug level monitoring (principal); Z79.01 Long term (current) use of anticoagulants | CPT/HCPCS: 85610; G0463 ==

== ENCOUNTER 2024-04-15 02:26 | Outpatient (RCR) | payer MEDICARE, OTHER, SELFPAY | END 2024-05-10 13:37 | disposition home or self-care (01) | LOC: MM 02:26 | PROVIDERS: PCP Internal Medicine; Visit Provider Internal Medicine | DX: Z51.81 Encounter for therapeutic drug level monitoring (principal); Z79.01 Long term (current) use of anticoagulants | CPT/HCPCS: 85610; G0463 ==

== ENCOUNTER 2024-05-12 07:35 | Outpatient (RCR) | payer MEDICARE, OTHER, SELFPAY | END 2024-06-07 13:17 | disposition home or self-care (01) | LOC: MM 07:35 | PROVIDERS: PCP Internal Medicine; Visit Provider Internal Medicine | DX: Z51.81 Encounter for therapeutic drug level monitoring (principal); Z79.01 Long term (current) use of anticoagulants | CPT/HCPCS: 85610; G0463 ==

== ENCOUNTER 2024-05-22 15:09 | Outpatient (OUT) | payer MEDICARE, OTHER, SELFPAY | END 2024-05-22 15:10 | disposition home or self-care (01) | LOC: WC 15:09 | PROVIDERS: PCP Internal Medicine; Visit Provider Physician Assistant | DX: I87.311 Chronic venous hypertension (idiopathic) with ulcer of right lower extremity (principal); L97.811 Non-pressure chronic ulcer of other part of right lower leg limited to breakdown of skin | CPT/HCPCS: G0463 ==

== ENCOUNTER 2024-06-11 05:50 | Outpatient (RCR) | payer MEDICARE, OTHER, SELFPAY | END 2024-07-10 16:19 | disposition home or self-care (01) | LOC: MM 05:50 | PROVIDERS: PCP Internal Medicine; Visit Provider Internal Medicine | DX: Z51.81 Encounter for therapeutic drug level monitoring (principal); Z79.01 Long term (current) use of anticoagulants; I48.91 Unspecified atrial fibrillation | CPT/HCPCS: 85610; G0463 ==

== ENCOUNTER 2024-06-15 06:41 | Outpatient (OUT) | payer MEDICARE, OTHER, SELFPAY ==
--- OUTSIDE RECORDS SUMMARY | 2024-06-15 06:46 | XMS_ITS | CCD ---
Author Organization [facility] Care Team Providers Care Riprap Worker Name Role Phone Declan Swasnon DO Primary Care Provider Bruce Shine II Unavailable [phone] Declan Swanson DO Primary Care Provider Declan Swanson DO Primary Care Provider Declan Swanson Unavailable FAWWAD, PIERRE H Attending Unavailable BALL, DR LOMELI Primary Care Unavailable FAWWAD, PIERRE H Admitting Unavailable BALL, DR LOMELI Primary Care Unavailable KRYSTAL, EDGARDO Silvestre Attending Unavailable HIGHLANDEREDGARDO Admitting Unavailable [...] Unavailable FAWWAD, PIERRE H Admitting Unavailable FAWWAD, IPERRE H Admitting Unavailable BALL, DR LOMELI Primary [...] Unavailable DO Declan Swanson Primary Care Provider [phone] MD Bruce Shine II Attending Provider [phone] Ruben Celis Unavailable MD Ruben Celis Attending Provider Declan Swanson DO Primary Care Provider JARROD DIALLO Attending Unavailable JARROD DIALLO Attending Unavailable JOHN CHURCHILL Attending Unavailable JARROD DIALLO Attending Unavailable JOHN CHURCHILL Attending Unavailable Cristina Emanuel MD, Albert Unavailable VENKAT EVANS Referring Unavailable BALL, DECLAN E Primary Care Unavailable CRISTINA VENKAT Referring Unavailable BALL, DECLAN E Primary Care Unavailable BALL, DECLAN E Primary Care Unavailable CRISTINA VENKAT Referring Unavailable BALL, DECLAN E Primary Care Unavailable SHAMA IBANEZ Attending Unavailable BALL, DECLAN E Primary Care Unavailable VENKAT EVANS Attending Unavailable ALIX BARRIOS Attending Unavailable BALL, DECLAN E Primary Care Unavailable BALL, DECLAN E Primary Care Unavailable VENKAT EVANS Attending Unavailable MARYLU EVANST Referring Unavailable Olexa Ruben REYNOSO Attending Provider Declan Swanson DO Primary Care Provider Ruben Diane Attending Unavailable Olexa, Ruben Admitting Unavailable Declan Swanson Primary Care Unavailable Ruben Diane MD Attending Provider [phone] Declan Swanson DO Primary Care Provider Allergies Allergy Classification Reported Allergen(s) Allergy Type Date of Onset Reaction(s) Facility (20 sources) Latex Drug allergy 4 Unknown, Unknown Reaction [facility] (20 sources) Iodinated contrast media (substance) Drug allergy Unknown [facility] Other (9 sources) Iodinated Contrast Media; 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: [Iodinated Contrast Media] Allergy to substance 4 Unknown Reaction [facility] (1 source) Latex Drug allergy (disorder) 5 [facility] Repository Medications Current Medications Medication Drug Class(es) Dates [...] Oxidase Inhibitor Start: 7 End: 4 take 1 tablet by mouth once daily Allopurinol 300 mg tablet Active 300 MG PO Daily 90 90 August 30, 2023 12:03pm Comment on above: Take 300 mg by mouth once daily. Blood-Glucose Meter (Accu-Chek Guide Glucose Meter[place] [facility] [place] source) Start: 5 Blood-Glucose Meter (Accu-Chek Guide Glucose Meter) [facility] Active 0 .ROUTE .MEDSUPPLY May 09, 2024 1:00am As directed cephalexin 500 mg oral tablet (11 sources) Cephalosporin Antibacterial Start: take 1 tablet by mouth every eight hours Cephalexin 500 MG 1 tablet Orally tid for 7 days Mar, Active Start: 11-04-2022 take 1 capsule by mo [facility] every twelve hours Cephalexin 500 MG 1 capsule Orally bid for 7 days Oct, Not-Taking/PRN COMPOUNDED PRESCRIPTION (20 sources) COMPOUNDED PRESC RIPTION Skin cream - patient unsure of name. Active COMPOUNDED PRESC RIPTION Skin cream - patient unsure of name. 0 Active Comment on above: Skin cream - patient unsure of name. empagliflozin 10 mg oral tablet (8 sources) Sodium-Glucose Cotransporter 2 Inhibitor Start: take 1 tablet by mouth once daily at breakfast empagliflozin (JARDIANCE) 10 mg tablet Take 1 tablet by mouth daily with breakfast. 90 tablet 3 12/08/2023 Active furosemide 40 mg oral tablet (20 sources) Loop Diuretic Start: take 1 tablet by mouth once daily Furosemide 40 mg tablet Active 0 .ROUTE .COMPLEX January 25, 2024 3:21pm Take 1 tablet by mouth once daily Start: 05-04-2017 End: 01-25-2024 take 1 tablet by mouth once daily Furosemide 40 mg tablet Discontinued 40 MG PO Daily May 04, 2017 1:00am January 25, 2024 3:22pm Start: 12-16-2016 End: 05-04-2017 take 1 tablet by mouth once daily Furosemide 20 mg tablet Discontinued 20 MG PO Daily December 16, 2016 12:00am May 04, 2017 1:03pm Comment on above: Take 1 tablet by [facility] once daily. metFORMIN hydrochloride 500 mg oral tablet (20 sources) Biguanide Start: 12-17-19 End: 08-30-19 take 1 tablet by mouth once daily Metformin 500 mg tablet Active 500 MG PO Daily 90 August 30, 2023 12:04pm On Hold: None Comment on above: Take 500 mg by mouth daily with breakfast. mupirocin 0.02 mg/mg topical ointment (20 sources) RNA Synthetase Inhibitor Antibacterial Start: 09-16-19 23 Mupirocin 2 % 1 application Externally Twice a day for 5 days Sep, Active perflutren lipid microspheres 1.3 mL in NaCl (PF) 0.9% 10 mL injection (DEFINVeveo) (20 sources) Start: 12-31-2021 End: 04-01-2023 perflutren lipid microspheres 1.3 mL in NaCl (PF) 0.9% 10 mL injection (ezTaxiITY) potassium chloride 20 meq extended release oral tablet (20 sources) Start: 12-16-2016 End: 08-30-2023 take 1 tablet by mouth once daily Potassium Chloride 20 mEq tablet extended release Active 20 MEQ PO Daily 90 90 August 30, 2023 12:04pm Start: 07-25-2015 take 1 tablet by rod th once daily potassium chloride ER (K-DUR, KLOR-CON) 20 mEq tablet Take 1 tablet by mouth once daily. 30 tablet 6 07/25/2015 Active Comment on above: Take 1 tablet by rod once daily. 125 ml sodium chloride 9 mg/ml prefilled syringe (20 sources) Start: 01-01-20 End: 04-01-19 24 sodium chloride 0.9 % (flush) 10 mL (BD POSIFLUSH) traZODone hydrochloride 50 mg oral tablet (1 source) Serotonin Reuptake Inhibitor Start: 05-23-19 25 take 0.5-1 tablets by mouth once daily at bedtime as needed Trazodone 50 mg tablet Active 0 PO Daily at bedtime as needed for insomnia May 22, 2024 12:00am 1/2 - 1 tablet orally daily at bedtime PRN; triamcinolone acetonide 1 mg/ml topical cream (20 sources) Corticosteroid Start: 05-01-19 24 Triamcinolone Acetonide 0.1 % cream Active 1 APPLIC TOPICAL Twice daily 80 [...] sources) Vitamin K Antagonist Start: 12-13-2022 End: 06-12-2024 take 6 mg by mouth once daily Warfarin 4 mg tablet Active 6 MG PO Daily 135 90 June 12, 2024 9:50am Start: 12-13-2022 End: 08-30-2023 take 6 mg by mouth once daily Warfarin Active 6 MG PO Daily 135 90 August 30, 2023 12:03pm Start: 12-16-2016 End: 08-17-2020 take 1 tablet by mouth once daily Warfarin 4 mg tablet Discontinued 4 MG PO Daily December 16, 2016 12:00am August 17, 2020 12:47pm take 4 tablets by [facility] once daily warfarin (COUMADIN) 1 mg tablet Indications: Atrial fibrillation, persistent (HCC) Take 4 mg by mouth once daily. Active Warfarin 4mg 4 m g 1 1/2 tablet orally daily Active Coumadin Active Comment on above: Take 4 mg by mouth o nce daily. Completed/Discontinued Medications Medication Drug Class(es) Dates Sig (Normalized) Sig (Original) apixaban 5 mg oral tablet (14 sources) Factor Xa Inhibitor Start: 05-18-2020 End: 12-13-2022 take 1 tablet by mouth twice daily Apixaban (Eliquis) 5 mg tablet Discontinued 5 MG PO Twice daily August 17, 2020 12:00am December 13, 2022 8:45am Comment on above: Take 1 tablet by [facility] twice daily. aspirin 81 mg delayed release oral tablet (20 sources) Platelet Aggregation Inhibitor, Nonsteroidal Anti-inflammatory Drug take 1 tablet by mouth every twenty-four hours Aspirin 81 MG 1 tablet Orally Once a day Not-Taking/PRN doxycycline hyclate 100 mg oral capsule (20 sources) Tetracycline-class Drug Start: 06-23-2023 End: 05-22-2024 take 1 capsule by mouth twice daily Doxycycline Hyclate 100 mg capsule Discontinued 100 MG PO Twice daily 14 February 22, 2024 11:14am May 22, 2024 5:03pm Start: 01-02-2023 take 1 capsule by [facility] every twelve hours Doxycycline Hyclate 100 MG 1 capsule Orally Twice a day for 5 days Dec, Active hydroCHLOROthiazide 50 mg oral tablet (11 sources) Thiazide Diuretic Start: 08-18-2017 End: 08-17-2020 take 1 tablet by mouth once daily Hydrochlorothiazide 50 mg Tablet Discontinued 1 TAB PO Daily August 18, 2017 12:00am August 17, 2020 12:45pm pravastatin sodium 80 mg oral tablet (20 sources) HMG-CoA Reductase Inhibitor Start: 06-09-2015 End: 08-30-2023 take 1 tablet by mouth once daily Pravastatin 80 mg tablet Discontinued 80 MG PO Daily December 16, 2016 12:00am August 30, 2023 12:05pm Comment on above: Take 1 tablet by rod th daily at bedtime. predniSONE 20 mg oral tablet (10 sources) Start: 08-09-2023 End: 12-18-2023 Prednisone 20 mg tablet Discontinued 20 MG PO As Directed 9 August 09, 2023 12:00am December 18, 2023 11:16am 1 tab bid w/ food x 3 days, then qd w/ food x 3 days Start: 01-03-2023 take 1 tablet by rod th twice daily predniSONE 10 MG 1 tablet Orally twice daily w/ food for 5 days Dec, Active sotalol hydrochloride 80 mg oral tablet (11 sources) Antiarrhythmic Start: 12-16-2016 End: 08-17-2020 take 1 tablet by mouth once daily Sotalol 80 mg tablet Discontinued 80 MG PO Daily December 16, 2016 12:00am August 17, 2020 12:46pm tamsulosin hydrochloride 0.4 mg oral capsule (20 sources) alpha-Adrenergic Mohan Start: 12-13-2018 End: 08-17-2020 take 1 capsule by mouth once daily Tamsulosin 0.4 mg Capsule Discontinued 0.4 MG PO Daily December 13, 2018 12:00am August 17, 2020 12:46pm Start: 05-04-2017 End: 08-18-2017 take 1 capsule by mouth once daily Tamsulosin 0.4 mg capsule,extended release 24hr Discontinued 1 MG PO Daily May 04, 2017 1:00am August 18, 2017 10:10am Start: 05-04-2017 End: 08-18-2017 take 1 mg by mouth once daily Tamsulosin Discontinued 1 MG PO Daily May 04, 2017 1:00am August 18, 2017 10:10am Start: 12-16-2016 End: 12-16-2016 take 1 capsule by mouth once daily Tamsulosin 0.4 mg capsule,extended release 24hr Discontinued 0.4 MG PO Daily December 16, 2016 12:00am December 16, 2016 11:22am Problems Active Problems Problem Classification Problem Date Documented Da te Episodic/Chronic Acute bronchitis (14 sources) Acute bronchitis; 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: [Acute bronchitis due to other specified organisms] Onset: 07-17-2014 Episodic Allergic reactions (7 sources) Atopic dermatitis; 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: [Atopic dermatitis, unspecified] 08-09-2023 Chronic Allergic reactions (12 sources) Inflammatory dermatosis; 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: [Dermatitis, unspecified] Onset: 11-30-2015 08-09-2023 Episodic Aortic; peripheral; and visceral artery aneurysms (2 sources) Aneurysm of ascending aorta; 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: [Ascending aortic aneurysm] 06-09-2024 Chronic Comment on above: Echo: 3.9cm - 11/2023 Calculus of urinary tract (20 sources) History of calculus of kidney; 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: [Personal history of urinary calculi] Episodic Cardiac dysrhythmias (20 sources) Persistent atrial fibrillation; 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: [Other persistent atrial fibrillation] Onset: 05-15-2013 Chronic Comment on above: Echo: LVEF 60%, norm al RV size/function, RVSP 58 11/2023 Echo: LVEF 60%, LVH, normal RV size/function, RVSP 58, Aorta 3.9cm, 11/2023 Chronic obstructive pulmonary disease and bronchiectasis (20 sources) Simple chronic bronchitis; 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: [Simple chronic bronchitis] Resolved: 09-25-2019 Chronic Chronic ulcer of skin (20 sources) Non-pressure chronic ulcer of unspecified part of left lower leg limited to breakdown of skin; 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: [Ulcer of left lower leg] Onset: 03-09-2022 Chronic Congestive heart failure; nonhypertensive (20 sources) Acute on chronic diastolic heart failure; 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: [Acute on chronic diastolic (congestive) heart failure] Onset: 09-23-2021 Chronic Coronary atherosclerosis and other heart disease (20 sources) Coronary atherosclerosis; 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: [Atherosclerotic heart disease of [place] coronary artery without angina pectoris] Onset: 07-10-2015 07-10-2015 Chronic Comment on above: Echo: LVEF 60%, norm al RV size/function, RVSP 58 11/2023 Echo: LVEF 60%, LVH, normal RV size/function, RVSP 58, Aorta 3.9cm, 11/2023 Diabetes mellitus with complications (20 sources) Type [...] following joint replacement surgery] Chronic Other aftercare (7 sources) Patient encounter status; 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: [correction (current) use of anticoagulants] Episodic Other aftercare (4 sources) correction (current) use of anticoagulants; 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: [Long-term (current) use of anticoagulants] Onset: 08-10-2022 02-22-2024 Episodic Other aftercare (5 sources) Encounter for therapeutic drug level monitoring; 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: [ENC THERAPEUTC DRUG LEVL MONITORING] Onset: 07-09-2022 Episodic Other aftercare (2 sources) Other senior living (current) drug therapy Episodic Other aftercare (1 source) Drug therapy finding; 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: [correction (current) use of anticoagulants] 07-04-2023 Episodic Other aftercare (4 sources) Anticoagulant effect; 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: [correction (current) use of anticoagulants] 02-22-2024 Episodic Other and unspecified benign neoplasm (20 [...] 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: [Trochanteric bursitis, left hip] Episodic Other connective tissue disease (4 sources) Hand pain; 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: [Pain in left hand] 04-22-2024 Episodic Other connective tissue disease (1 source) Pain in left hand; 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: [Pain in left hand] Onset: 04-23-2024 Episodic Other diseases of kidney and ureters [...] Episodic Other diseases of veins and lymphatics (18 sources) Venous insufficiency (chronic) (peripheral); 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: [Venous (peripheral) insufficiency, unspecified] Onset: 02-22-2022 Episodic Other gastrointestinal disorders (3 sources) Swallowing painful; 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: [Dysphagia, unspecified] Episodic Other gastrointestinal disorders (1 source) Dysphagia, unspecified Episodic Other injuries and conditions due to external causes (5 sources) History of fall; 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: [History of falling] Episodic Other injuries and conditions due to external causes (4 sources) Injury of left wrist; 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: [Other specified injuries of left wrist, hand and finger(s), initial encounter] 04-23-2024 Episodic Other injuries and conditions due to external causes (4 sources) Other specified injuries of left wrist, hand and finger(s), initial encounter; 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: [Articular cartilage disorder, forearm] 04-23-2024 Episodic Other lower respiratory disease (20 sources) Solitary nodule of lung; 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: [Solitary pulmonary nodule] Onset: 09-24-2021 Episodic Other lower respiratory disease (9 sources) Solitary pulmonary nodule; 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: [Solitary pulmonary nodule] Onset: 09-28-2021 Episodic Other lower respiratory disease (6 sources) Nodule of lung; 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: [Solitary pulmonary nodule] 08-20-2023 Episodic Comment on above: CT: 12mm RUL, 11mm R LL - 2018 (stable since 2016)CT: 14mm R - 12/2019, PET/CT: 14mm Right - 12/2019CT: 15mm R - 2T: 13mm R - 8T: 11.6mm R - T: 12mm - 08/2022 Other nervous system disorders (20 sources) Chronic pain; 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: [Other chronic pain] Chronic Other nervous system disorders (2 sources) Other chronic pain Chronic Other non-traumatic joint disorders (20 sources) Pain in right hip joint; 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: [Pain in right hip] Episodic Other non-traumatic joint disorders (20 sources) Pain in wrist; 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: [Pain in left wrist] Episodic Other non-traumatic joint disorders (1 source) Pain in right hip Episodic Other non-traumatic joint disorders (1 source) Pain in left hip Episodic Other nutritional; endocrine; and metabolic disorders (20 sources) Body mass index 40+ - severely obese; 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: [Morbid (severe) obesity due to excess calories] Onset: 03-23-2015 10-23-2019 Chronic Other nutritional; endocrine; and metabolic disorders (20 sources) Morbid obesity; 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: [Morbid (severe) obesity due to excess calories] Chronic Other nutritional; endocrine; and metabolic disorders (1 source) Obesity; 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: [Obesity, unspecified] 05-07-2024 Chronic Other nutritional; endocrine; and metabolic disorders (1 source) Obesity, unspecified; 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: [Obesity, unspecified] 05-07-2024 Chronic Other skin disorders (20 sources) Vesicular [...] 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: [Acute maxillary sinusitis, unspecified] Onset: 02-05-2013 02-22-2024 Episodic Peripheral and visceral atherosclerosis (20 sources) Atherosclerosis of [place] arteries of the extremities; 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: [Unspecified atherosclerosis of [place] arteries of extremities, bilateral legs] Chronic Pulmonary heart disease (2 sources) Pulmonary hypertension; 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: [Pulmonary hypertension, unspecified] 06-09-2024 Chronic Comment on above: Echo: RVSP 58, LVEF 60% - 11/2023 Residual codes; unclassified (20 sources) Obstructive sleep apnea syndrome; 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: [Obstructive sleep apnea (adult) (pediatric)] Onset: 01-07-2014 01-07-2014 Chronic Residual codes; unclassified (9 sources) Obstructive sleep apnea (adult) (pediatric); 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: [...] 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: [Low back pain] Onset: 06-30-2015 Episodic Superficial injury; contusion (17 sources) Blister (nonthermal), left lower leg, initial encounter; 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: [Abrasion, lower leg] Onset: 09-05-2016 Episodic Unclassified (5 sources) Long-term current use of drug therapy; 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: [Long-term (current) use of other medications] Onset: 11-28-2016 Unclassified (2 sources) Other persistent atrial fibrillation; 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: [Atrial fibrillation, persistent (HCC)] Onset: 10-23-2019 Past or Other Problems Problem Classification Problem [...] Test Name Value Interpretation Reference Range Facility X-ray reportOrdered By: Bobby Gonzalez on 04-23-2024 Study report [facility] [address] [place] [address] XRay Report Signed Patient: Jorge Davis MR#: [id number] : 1945 Acct:[id number] Age/Sex: 79 / M ADM Date: 5 [place] [facility] [place] Dr: Ruben Diane MD Copies to: Ruben Diane MD~ Ordering Provider: Ruben Diane MD Date of Service: 04/23/24 XR/XR hand LT min 3V*: M79.642 - Pain in left hand 4 views left hand plain film COMPARISON: None HISTORY: Left hand pain with radiation into the ulna. No injury ACUTE FINDINGS: None DEGENERATIVE CHANGE: Moderate first carpometacarpal degenerative changes. Moderate endplate degenerative changes. SOFT TISSUE FINDINGS: Atherosclerosis. JOINT EFFUSION: None POSTOP CHANGES: None BONY MINERALIZATION: Adequate XR/XR hand LT min 3V* IMPRESSION: Moderate degenerative changes. Impression dictated by: Lucas Gonzalez M.D.04/23/2024 9:46 AM Dictation Location: [place] [address] Transcribed By: [facility] 04/23/24945 Dictated By: Lucas Gonzalez DO 04/23/24931 Signed By: 04/23/2446 [facility] XR hand LT min 3V*on 025 XR hand LT min 3V* [facility] [place] [address] XRay Report Signed Patient: Joreg Davis MR#: [id number] 14 : 1945 Acct:[id number] Age/Sex: 79 / M ADM Date: 04/23/24 [place] [facility]: [facility] Attending Dr: Ruben Diane MD Copies to: Ruben Diane MD Ordering Provider: Ruben Diane MD Date of Service: 04/23/24 XR/XR hand LT min 3V*: M79.642 - Pain in left hand 4 views left hand plain film COMPARISON: None HISTORY: Left hand pain with radiation into the ulna. No injury ACUTE FINDINGS: None DEGENERATIVE CHANGE: Moderate first carpometacarpal degenerative changes. Moderate endplate degenerative changes. SOFT TISSUE FINDINGS: Atherosclerosis. JOINT EFFUSION: None POSTOP CHANGES: None BONY MINERALIZATION: Adequate XR/XR hand LT min 3V* IMPRESSION: Moderate degenerative changes. Impression dictated by: Lucas Gonzalez M.D.04/23/2024 9:46 AM Dictation Location: [id number]-16 Transcribed By: [facility] 04/23/24945 Dictated By: Lucas Gonzalez DO 04/23/24931 Signed By: 04/23/24945 Normal [facility]-21-2024 CNPN Telephone (CARDMN) JORGE DAVIS ([id number]) 1945 [facility]* Date Time Provider Department 02/21/24 RUBEN DENTON During your visit today, we recorded the following information about you: Radha Gates 02/21/2024 1:49 PM Signed Received LAB results. Uploaded to scanned documents and [employer] drive. -Radha IC 955 Alisha Gomez RN 02/21/2024 1:57 PM Signed Allergies As of Date: 02/21/2024 (No Known Allergies) Date Reviewed: 02/13/2024 Reviewed by: Emeli Lui OCCA - Fully Assessed Reason for Visit: Results [95] Cmt: labs Prescriptions as of 02/21/2024 - empagliflozin (JARDIANCE) 10 mg tablet Take [...] once daily. Problem List As Of Date 02/21/2024 Noted Resolved CHRISTIAN (obstructive sleep apnea) [G47.33] 01/07/2014 HTN (hypertension) [I10] 01/07/2014 Dyslipidemia [E78.5] 01/07/2014 Atrial fibrillation (HCC) [I48.91] 07/08/2014 Atherosclerosis of [place] coronary artery of na*07/10/2015 Diabetes mellitus type 2, controlled, without c*07/10/2015 Atrial fibrillation, persistent (HCC) [I48.19] 07/22/2015 Paroxysmal atrial fibrillation (HCC) [I48.0] 12/04/2015 Paroxysmal atrial flutter (HCC) [I48.92] 05/30/2018 Obesity, Class III, BMI >= 40 [E66.01] 10/23/2019 Chronic diastolic heart failure (HCC) [I50.32] 06/05/2023 Mixed hyperlipidemia [E78.2] 06/05/2023 Encounter Status:Closed by ALISHA GOMEZ on 02/21/24 [facility] Luis 02-13-2024 CNOV Office Visit (LAYNEAV ) JORGE DAVIS ([id number]) 1945 [facility]* Date Time Provider Department 02/13/24 1:00 PM ALIX BARRIOS During your visit today, we recorded the following information about you: Pulse Blood pressure Weight 66/minute 134/68 120.2 kg Alix Barrios APRN.BEND UP 02/13/2024 2:49 PM Signed [facility] [facility] Department of Cardiovascular Medicine SECTION OF CLINICAL CARDIOLOGY OUTPATIENT VISIT DATE February 13, 2024 OUTPATIENT VISIT TYPE ESTABLISHED PRIMARY CARE PHYSICIAN: Declan Swanson (Peggy) [address] [place] [id number] REFERRING PHYSICIAN: No referring provider defined for this encounter. CHIEF COMPLAINT: No chief complaint on file. HISTORY OF PRESENT ILLNESS: Mr. Davis is a 79 year old male who presents today for a cardiovascular medicine follow-up visit. PMH significant for persistent atrial fib s/p PVAI (2019); chronic HFpEF; CAD; HTN; HLD; T2DM. Established patient of Dr Evans, and Dr Denton (EP). He is seen today in the outpatient cardiology office for routine follow up. DAWSON with Dr Evans 12/08/2023: ASSESSMENT/PLAN: 1. Chronic diastolic heart failure (HCC) [...] Continue staitn 5. Coronary artery disease involving [place] coronary artery of [place] heart without angina pectoris - ICD9: 414.01, ICD10: I25.10 Mild Addendum 12/18/2023: Tell pt pro bnp is high suggesting fluid overload I started Jardiance so make sure he is taking Increase lasix to 40 mg B ID for 5 days then once a day Recheck pro bnp in 4 weeks Reinforce salt restriction Please schedule earlier appt with [facility] in 4-8 weeks to followup Please tell pt to notify us if he is not improving Today, he reports overall he is doing well. Activity tolerance is unchanged. Helps around the house, is able to navigate stairs, does have some shortness of breath with this but just takes his time. Overall unchanged. He denies abdominal distention, chest pain, orthopnea, cough, palpitations, PND, lightheadedness or syncope. +1 pitting edema today in the office, R>L. Pt states he did not take his diuretic this AM d/t the long drive to the office. Endorses compliance with medication regimen, including Jardiance. NT proBNP elevated, but unchanged from 2 months ago >> 2,044 today compared to 2,139 on 12/08/2023. PAST CARDIAC HISTORY: ECHO (12/08/2023): CONCLUSIONS: - Technically difficult exam due to body habitus and suboptimal positioning. - Exam indication: Evaluation of known heart failure to guide therapy - The left ventricle is normal in size. There is concentric left ventricular hypertrophy. Left ventricular systolic function is normal. EF = 60 ? 5% (2D 4-ch.) Left ventricular diastolic function [...] with the prior echocardiographic exam performed on 06/24/2022. RVSP has increased. (06/05/2023): PAST MEDICAL HISTORY Diagnosis Date Acute gastric [...] Knee PAST SURGICAL HISTORY OF 1991 Acrominoplasty Ri (more content not included)... Normal [facility] NT-proBNP SerPl-mCncon 02-12 Natriuretic peptide.B prohormone N-Terminal [Mass/Vol] 2044 pg/mL High <450 [facility] Comment on above: Order Comment: Speci men Type: BLOOD SPECIMEN Ordering Facility: [facility] Address: [address] [place] [address] Performed By: #### 3 3762-6 #### [facility] CLIA [id number] [place] [address] [place] Natriuretic peptide.B prohor gerson N-Terminal [Mass/volume] in Serum or Plasmaon 02-13-2024 Natriuretic peptide.B prohormone N-Terminal [Mass/Vol] Natriuretic peptide.B prohormone N-Terminal [Mass/volume] in Serum or Plasma High <450 [facility] CNPNon 02-07-2024 CNPN Telephone (CARDMN) JORGE DAVIS ([id number]) 1945 [facility]* Date Time Provider Department 02/07/24 RUBEN DENTON During your visit today, we recorded the following information about you: Radha Gates 02/07/2024 2:52 PM Signed Received faxed LAB results. Uploaded to scanned documents and [employer]. -Joselyn Cline RN 02/09/2024 7:55 AM Signed INR results received, patient remains therapeutic. Patient is not scheduled for any upcoming procedures and coumadin is managed locally. Joselyn Macedo RN Allergies As of Date: 02/07/2024 (No Known Allergies) Date Reviewed: 12/08/2023 Reviewed by: Venkat Evans V, MD - Fully Assessed Reason for Visit: Results [95] Prescriptions as of 02/09/2024 - empagliflozin (JARDIANCE) 10 mg tablet Take [...] once daily. Problem List As Of Date 02/07/2024 Noted Resolved CHRISTIAN (obstructive sleep apnea) [G47.33] 01/07/2014 HTN (hypertension) [I10] 01/07/2014 Dyslipidemia [E78.5] 01/07/2014 Atrial fibrillation (HCC) [I48.91] 07/08/2014 Atherosclerosis of [place] coronary artery of na*07/10/2015 Diabetes mellitus type 2, controlled, without c*07/10/2015 Atrial fibrillation, persistent (HCC) [I48.19] 07/22/2015 Paroxysmal atrial fibrillation (HCC) [I48.0] 12/04/2015 Paroxysmal atrial flutter (HCC) [I48.92] 05/30/2018 Obesity, Class III, BMI >= 40 [E66.01] 10/23/2019 Chronic diastolic heart failure (HCC) [I50.32] 06/05/2023 Mixed hyperlipidemia [E78.2] 06/05/2023 Encounter Status:Closed by JOSELYN MACEDO on 02/09/24 [facility] Scooter 01-24-2024 TATAN Telephone (CARDMN) JORGE DAVIS ([id number]) 1945 [employer]* Date Time Provider Department 01/24/24 RUBEN DENTON During your visit today, we recorded the following information about you: Radha Gates 01/24/2024 2:58 PM Signed Received INR LAB results from [facility]. Uploaded to [employer] and [employer]. -Radha IC 955 Alisha Gomez, CONSTANTIN 01/24/2024 3:30 PM Signed Allergies As of [...] Atrial fibrillation (HCC) [I48.91] 07/08/2014 Atherosclerosis of [place] coronary artery of na*07/10/2015 Diabetes mellitus type 2, controlled, without c*07/10/2015 Atrial fibrillation, persistent (HCC) [I48.19] 07/22/2015 Paroxysmal atrial fibrillation (HCC) [I48.0] 12/04/2015 Paroxysmal atrial flutter (HCC) [I48.92] 05/30/2018 Obesity, Class III, BMI >= 40 [E66.01] 10/23/2019 Chronic diastolic heart failure (HCC) [I50.32] 06/05/2023 Mixed hyperlipidemia [E78.2] 06/05/2023 Encounter Status:Closed by ALISHA GOMEZ on 01/24/24 Normal [facility] CNPNon 12-19-2023 CNPN Telephone (CAEPAV) JORGE DAVIS ([id number]) 1945 [facility]* Date Time Provider Department 12/19/23 VENKAT EVANS V CAEPAV During your visit today, we recorded the following information about you: Claire Callejas, CONSTANTIN 12/19/2023 2:17 PM Signed Spoke with patients . Relayed Dr. Pineda message below. Patient is NOT taking Jardiance due to cost. Will adjust Lasix and recheck BNP. Appt scheduled end of Feb with Shama. Patient is requesting change to Susana instead of Ethridge. Will contact us if no improvement. Venkat Evans V, MD P Avw Card Nurse; P Avw Card Supervisor [employer] Tell pt pro bnp is high suggesting fluid overload I started Jardiance so make sure he is taking Increase lasix to 40 mg B ID for 5 days then once a day Recheck pro bnp in 4 weeks Reinforce salt restriction Please schedule earlier appt with GERMAIN in 4-8 weeks to followup Please tell pt to notify us if he is not improving Francoies Carrington 12/20/2023 12:38 PM Signed Spoke to , rescheduled with Alix in [place]. now asking about BNP lab for next week. I advised I saw one for 01/17, but not next week. She would like a nurse to confirm and call her. Lyndsay Steen, CONSTANTIN 12/20/2023 1:16 PM Signed Order states to [...] Atrial fibrillation (HCC) [I48.91] 07/08/2014 Atherosclerosis of [place] coronary artery of na*07/10/2015 Diabetes mellitus type 2, controlled, without c*07/10/2015 Atrial fibrillation, persistent (HCC) [I48.19] 07/22/2015 Paroxysmal atrial fibrillation (HCC) [I48.0] 12/04/2015 Paroxysmal atrial flutter (HCC) [I48.92] 05/30/2018 Obesity, Class III, BMI >= 40 [E66.01] 10/23/2019 Chronic diastolic heart failure (HCC) [I50.32] 06/05/2023 Mixed hyperlipidemia [E78.2] 06/05/2023 Encounter Status:Closed by CLAIRE CALLEJAS on 12/19/23 Normal [facility] Scooter 12-12-2023 CNPN Telephone (CARDMN) JORGE DAVIS ([id number]) 1945 [facility]* Date Time Provider Department 12/12/23 RUBEN DENTON During your visit today, we recorded the following information about you: Bryan Dwyer 12/12/2023 2:58 PM Signed Documentation scanned into EP outside database Scanned INR report into [employer] Allergies As of Date: 12/12/2023 (No Known Allergies) Date Reviewed: 12/08/2023 Reviewed by: Venkat Evans V, MD - Fully Assessed Reason for Visit: Received Outside Medical Records [[id number]] Prescriptions as of 12/12/2023 - empagliflozin (JARDIANCE) [...] Atrial fibrillation (HCC) [I48.91] 07/08/2014 Atherosclerosis of [place] coronary artery of na*07/10/2015 Diabetes mellitus type 2, controlled, without c*07/10/2015 Atrial fibrillation, persistent (HCC) [I48.19] 07/22/2015 Paroxysmal atrial fibrillation (HCC) [I48.0] 12/04/2015 Paroxysmal atrial flutter (HCC) [I48.92] 05/30/2018 Obesity, Class III, BMI >= 40 [E66.01] 10/23/2019 Chronic diastolic heart failure (HCC) [I50.32] 06/05/2023 Mixed hyperlipidemia [E78.2] 06/05/2023 Encounter Status:Closed by BRYAN DWYER on 12/12/23 Normal [facility] Basic metabolic 2000 panelon 12-08-2023 Anion gap [Moles/Vol] 13 mmol/L 8 - 15 mmol/L [facility] Calcium [Mass/Vol] 9.4 mg/dL 8.5 - 10. 2 mg/dL [facility] Chloride [Moles/Vol] 103 mmol/L 98 - 10 7 mmol/L [facility] CO2 [Moles/Vol] 26 mmol/L 22 - 30 mmol/L [facility] Creatinine [Mass/Vol] 0.99 mg/dL 0.73 - 1.22 mg/dL [facility] GFR/1.73 sq M.predicted among non-blacks MDRD (S/P/Bld) [Vol rate/Area] 78 mL/min/{1.73_m2} - PINF [facility] Comment on above: Estimated Glomerular Filtration [...] [Mass/Vol] 97 mg/dL 74 - 99 mg/dL [facility] Comment on above: The [place] Diabete s Association (ADA) provides guidance for [...] Standards of Medical Care in Diabetes 2016, [place] Diabetes Association. Diabetes Care. 2016.39(Suppl 1). Interpretation and review of laboratory results Normal [facility] Potassium [Moles/Vol] 4.3 mmol/L 3.7 - 5.1 mmol/L [facility] Sodium [Moles/Vol] 142 mmol/L 136 - 144 mmol/L [facility] Urea nitrogen [Mass/Vol] 18 mg/dL 9 - 24 mg/dL [facility] Anion gap [Moles/Vol] 13 mmol/L Normal 8-15 [facility] Comment on above: Order Comment: Marlin markham Type: BLOOD SPECIMEN Ordering Facility: [facility] Address: [address] [place] [address] Performed By: #### 3 3762-6, 49061-9 #### [facility] CLIA [id number] [place] [address] [place] Calcium [Mass/Vol] 9.4 mg/dL Normal 8.5-10.2 [facility] Comment on above: Order Comment: Marlin markham Type: BLOOD SPECIMEN Ordering Facility: [facility] Address: [address] [place] [address] Performed By: #### 3 3762-6, 17700-8 #### [facility] CLIA [id number] [address] [place] [address] [place] Chloride [Moles/Vol] 103 mmol/L Normal 98-107 [facility] Comment on above: Order Comment: Marlin markham Type: BLOOD SPECIMEN Ordering Facility: [facility] Address: [address] [place] [address] Performed By: #### 3 3762-6, 51817-9 #### [facility] CLIA [id number] [address] [place] [address] [place] CO2 [Moles/Vol] 26 mmol/L Normal 22-30 [facility] Comment on above: Order Comment: Speci men Type: BLOOD SPECIMEN Ordering Facility: [facility] Address: [address] [place] [address] Performed By: #### 3 3762-6, 23648-3 #### [facility] CLIA [id number] [facility] [place] [address] [place] Creatinine [Mass/Vol] 0.99 mg/dL Normal 0.73-1.22 [facility] Comment on above: Order Comment: Speci men Type: BLOOD SPECIMEN Ordering Facility: [facility] Address: [address] [place] [address] Performed By: #### 3 3762-6, 94385-2 #### [facility] CLIA [id number] [facility] [place] [address] [place] Creatinine and Glomerular filtration rate.predicted panel (S/P/Bld) 78 mL/min/1.73m??? Normal >=60 [facility] Comment on above: Order Comment: Speci [facility] Type: BLOOD SPECIMEN Ordering Facility: [facility] Address: [address] [place] [address] Result Comment: Colleen mated Glomerular Filtration Rate [...] actual GFR. Performed By: #### 3 3762-6, 30496-3 #### [facility] CLIA [id number] [facility] [place] [address] [place] Glucose [Mass/Vol] 97 mg/dL Normal 74-99 [facility] Comment on above: Order Comment: Alixi [facility] Type: BLOOD SPECIMEN Ordering Facility: [facility] Address: [address] [place] [address] Result Comment: The [place] Diabetes Association (ADA) provides guidance for cutoff [...] Standards of Medical Care in Diabetes 2016, [place] Diabetes Association. Diabetes Care. 2016.39(Suppl 1). Performed By: #### 3 3762-6, 97665-9 #### [facility] CLIA [id number] [address] [place] [address] [place] Potassium [Moles/Vol] 4.3 mmol/L Normal 3.7-5.1 [facility] Comment on above: Order Comment: Marlin markham Type: BLOOD SPECIMEN Ordering Facility: [facility] Address: [address] [place] [address] Performed By: #### 3 3762-6, 82763-8 #### [facility] CLIA [id number] [address] [place] [address] [place] Sodium [Moles/Vol] 142 mmol/L Normal 136-144 [facility] Comment on above: Order Comment: Marlin markham Type: BLOOD SPECIMEN Ordering Facility: [facility] Address: [address] [place], [place] [address] Performed By: #### 3 3762-6, 17749-6 #### [facility] CLIA [id number] [address] [place] [address] [place] Urea nitrogen [Mass/Vol] 18 mg/dL Normal 9-24 [facility] Comment on above: Order Comment: Marlin markham Type: BLOOD SPECIMEN Ordering Facility: [facility] Address: [address] [place] [address] Performed By: #### 3 3762-6, 84179-1 #### [facility] CLIA [id number] [address] [place] [address] [place] CNOVon 12-08-2023 CNOV Office Visit (CARDAV ) JORGE DAVIS ([id number]) 1945 [place]* Date Time Provider Department 12/08/23 10:40 AM VENKAT EVANS During your visit today, we recorded the following information about you: Pulse Blood pressure Weight 88/minute 142/80 118.4 kg Venkat Evans V, MD 12/08/2023 11:39 AM Signed Referring Physician: Venkat Evans [address] [facility] [address] Primary Care Physician: DO Jorge Unger Ryan [...] Continue staitn 5. Coronary artery disease involving [place] coronary artery of [place] heart without angina pectoris - ICD9: 414.01, [...] Evans MD Referring Provider: VENKAT EVANS V [[id number]] Allergies As of Date: 12/08/2023 (No Known Allergies) Date Reviewed: 12/08/2023 Reviewed by: Venkat Evans V, MD - Fully Assessed Reason for Visit: Follow Up [171] Primary Visit Diagnosis:Chronic diastolic heart failure (HCC) [I50.32] Other Visit Diagnoses:Atrial fibrillation, persistent (HCC) [I48.19] Obesity, Class III, 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) [E66.01] Mixed hyperlipidemia [E78.2] Coronary artery disease involving [place] coronary (more content not included)... Normal [facility] ECHOon 12-08-2023 Echocardiography Echocardiography Report: [facility] Date of service: 12/08/2023 9:46:42 AM SALESMAN Ordering physician: VENKAT EVANS V Indication: Evaluation of known heart failure to guide therapy Technologist: Jose Luis Porter [facility] Interpreting physician: Ruddy Chau MD PATIENT: [...] * * * Final * * * [employer] [facility] : [id number] Normal [facility] Laboratory - Chemistry and C hemistry - challengeon 12-08-2023 Calcium [Mass/Vol] 9.4 mg/dL 8.5-10.2 [facility] Chloride [Moles/Vol] 103 mmol/L 98-107 [facility] CO2 [Moles/Vol] 26 mmol/L 22-30 [facility] Creatinine [Mass/Vol] 0.99 mg/dL 0.73-1.22 [facility] Glucose [Mass/Vol] 97 mg/dL 74-99 [facility] Comment on above: The [place] Diabete s Association (ADA) provides guidance for [...] Standards of Medical Care in Diabetes 2016, [place] Diabetes Association. Diabetes Care. 2016.39(Suppl 1). Potassium [Moles/Vol] 4.3 mmol/L 3.7-5.1 [facility] Sodium [Moles/Vol] 142 mmol/L 136-144 [facility] Urea nitrogen [Mass/Vol] 18 mg/dL 9- [facility] NT PRO BNPon 12-08-2023 Natriuretic peptide.B prohormone N-Terminal [Mass/Vol] 2139 pg/mL High NINF - 450 pg/mL [facility] NT-proBNP SerPl-mCncon 12-07 Natriuretic peptide.B prohormone N-Terminal [Mass/Vol] 2139 pg/mL High <450 [facility] Comment on above: Order Comment: Speci men Type: BLOOD SPECIMEN Ordering Facility: [facility] Address: [address] [place] [address] Performed By: #### 3 3762-6, 57557-1 #### [facility] CLIA [id number] [facility] [place] [address] [place] Natriuretic peptide.B prohor gerson N-Terminal [Mass/Vol]on 12-08-2023 Interpretation and review of laboratory results Abnormal [facility] Natriuretic peptide.B prohor gerson N-Terminal [Mass/volume] in Serum or Plasmaon 12-08-2023 Natriuretic peptide.B prohormone N-Terminal [Mass/Vol] 2139 pg/mL High <450 [facility] No Panel Informationon 12-07 Estimated GFR (CKD-EPI) 78 mL/min/1.73m??? >=60 [facility] Comment on above: Estimated Glomerular Filtration Rate [...] 12-08-2023 Anion gap [Moles/Vol] 13 mmol/L 8-15 [facility] Basophils Auto (Bld) [#/Vol] on 12-07-2023 Basophils (Bld) [#/Vol] 0.0 10 3/uL 0.0-0.1 [facility] Basophils/100 WBC Auto (Bld) on 12-07-2023 Basophils/100 WBC (Bld) 0.2 % 0.2-2.0 [facility] Eosinophils/100 WBC Auto (Bl d)on 12-07-2023 Eosinophils/100 WBC (Bld) 0.0 % Low 0.9-7.0 [facility] Erythrocyte distribution wid th Auto (RBC) [Ratio]on 12-07-2023 Erythrocyte distribution width (RBC) [Ratio] 14.4 % 11.0-15.0 [facility] Estimated glomerular filtrat ion rate (GFR) non- Americanon 12-07-2023 GFR/1.73 sq M.predicted among non-blacks MDRD (S/P/Bld) [Vol rate/Area] mL/min/{1.73_m2} >=60 [facility] Globulin Calc (S) [Mass/Vol] on 12-07-2023 Globulin (S) [Mass/Vol] 3.3 g/dL [facility] Hematocrit Auto (Bld) [Volum e fraction]on 12-07-2023 Hematocrit (Bld) [Volume fraction] 41.7 % Low 42.0-54.0 [facility] Hemoglobin [Mass/volume] in Bloodon 12-07-2023 Hemoglobin (Bld) [Mass/Vol] 13.5 g/dL Low 14.0-18.0 [facility] INR in Platelet poor plasma by Coagulation assayon 12-07-2023 INR Coag (PPP) [Relative time] 2.55 {INR} [facility] Comment on above: DESIRED INR:2.0-3.0 CONDITIONS NOT LISTED BELOW2.5-3.5 FOR PROSTHETIC HEART VALVE REPLACEMENT2.5-3.5 RECURRENT THROMBOSIS Laboratory - Chemistry and C hemistry - challengeon 12-07-2023 Albumin [Mass/Vol] 2.8 g/dL Low 3.4-5.0 [facility] ALP [Catalytic activity/Vol] 74 U/L 46-116 [facility] ALT [Catalytic activity/Vol] 17 U/L 16-63 [facility] AST [Catalytic activity/Vol] 15 U/L 15-37 [facility] Bilirubin [Mass/Vol] 1.1 mg/dL High 0.2-1.0 [facility] Calcium [Mass/Vol] 8.6 mg/dL 8.5-10.1 [facility] Chloride [Moles/Vol] 104 mmol/L 98-107 [facility] CO2 [Moles/Vol] 22.2 mmol/L 21.0-32.0 [facility] Creatinine [Mass/Vol] 0.72 mg/dL 0.70-1.30 [facility] GFR/1.73 sq M.predicted MDRD (S/P/Bld) [Vol rate/Area] mL/min/{1.73_m2} >=60 [facility] Glucose [Mass/Vol] 132 mg/dL High 74-106 [facility] Potassium [Moles/Vol] 4.1 mmol/L 3.5-5.1 [facility] Protein [Mass/Vol] 6.1 g/dL Low 6.4-8.2 [facility] Sodium [Moles/Vol] 136 mmol/L 136-145 [facility] Urea nitrogen [Mass/Vol] 13.0 mg/dL 7.0-18.0 [facility] Urea nitrogen/Creatinine [Mass ratio] 18.1 mg/mg [facility] Laboratory - Hematology and Cell countson 12-07-2023 Immature granulocytes/100 WBC (Bld) 0.4 % 0.0-0.5 [facility] Leukocytes [#/volume] correc jossue for nucleated erythrocytes in Blood by Automated counon 12-07-2023 WBC corrected for nucl RBC Auto (Bld) [#/Vol] 9.5 10 3/uL 4.0-11.0 [facility] Lymphocytes Auto (Bld) [#/Vo l]on 12-07-2023 Lymphocytes (Bld) [#/Vol] 1.1 10 3/uL Low 1.2-3.8 [facility] Lymphocytes/100 WBC Auto (Bl d)on 12-07-2023 Lymphocytes/100 WBC (Bld) 11.5 % Low 20.5-60.0 [facility] MCH Auto (RBC) [Entitic mass ]on 12-07-2023 MCH (RBC) [Entitic mass] 29.5 pg 25.9-34.0 [facility] MCHC Auto (RBC) [Mass/Vol]on 12-07-2023 MCHC (RBC) [Mass/Vol] 32.4 g/dL 29.9-35.2 [facility] MCV Auto (RBC) [Entitic vol] on 12-07-2023 MCV (RBC) [Entitic vol] 91.0 fL 80.0-94.0 [facility] Monocytes Auto (Bld) [#/Vol] on 12-07-2023 Monocytes (Bld) [#/Vol] 0.5 10 3/uL 0.3-0.8 [facility] Monocytes/100 WBC Auto (Bld) on 12-07-2023 Monocytes/100 WBC (Bld) 4.8 % 1.7-12.0 [facility] Neutrophils Auto (Bld) [#/Vo l]on 12-07-2023 Neutrophils (Bld) [#/Vol] 7.9 10 3/uL High 1.4-6.5 [facility] Neutrophils/100 WBC Auto (Bl d)on 12-07-2023 Neutrophils/100 WBC (Bld) 83.1 % High 43.0-75.0 [facility] No Panel Informationon 12-06 Eosinophils # (Auto) 0.0 10 3/uL 0.0-0.7 [facility] Immature Granulocyte # (Auto) 0.04 10 3/uL High 0.00-0.03 [facility] Platelet mean volume Auto (B ld) [Entitic vol]on 12-07-2023 Platelet mean volume (Bld) [Entitic vol] 10.3 fL 9.5-13.5 [facility] Platelets Auto (Bld) [#/Vol] on 12-07-2023 Platelets (Bld) [#/Vol] 209 10 3/uL 150-450 [facility] Prothrombin time (PT)on 11-12 PT Coag (PPP) [Time] 24.6 s High 9.0-11.6 [facility] RBC Auto (Bld) [#/Vol]on RBC (Bld) [#/Vol] 4.58 10 6/uL Low 4.70-6.10 [facility] Serum or plasma albumin/glob ulin mass ratioon 12-07-2023 Albumin/Globulin [Mass ratio] 0.8 {ratio} [facility] Serum or plasma anion gap de terminationon 12-07-2023 Anion gap [Moles/Vol] 13.9 mmol/L Fi [facility] Basophils Auto (Bld) [#/Vol] on 12-06-2023 Basophils (Bld) [#/Vol] 0.1 10 3/uL 0.0-0.1 [facility] Basophils/100 WBC Auto (Bld) on 12-06-2023 Basophils/100 WBC (Bld) 0.7 % 0.2-2.0 [facility] Eosinophils/100 WBC Auto (Bl d)on 12-06-2023 Eosinophils/100 WBC (Bld) 1.7 % 0.9-7.0 [facility] Erythrocyte distribution wid th Auto (RBC) [Ratio]on 12-06-2023 Erythrocyte distribution width (RBC) [Ratio] 14.6 % 11.0-15.0 [facility] Estimated glomerular filtrat ion rate (GFR) non- Americanon 12-06-2023 GFR/1.73 sq M.predicted among non-blacks MDRD (S/P/Bld) [Vol rate/Area] mL/min/{1.73_m2} >=60 [facility] Globulin Calc (S) [Mass/Vol] on 12-06-2023 Globulin (S) [Mass/Vol] 3.3 g/dL [facility] Hematocrit Auto (Bld) [Volum e fraction]on 12-06-2023 Hematocrit (Bld) [Volume fraction] 42.1 % 42.0-54.0 [facility] Hemoglobin [Mass/volume] in Bloodon 12-06-2023 Hemoglobin (Bld) [Mass/Vol] 13.6 g/dL Low 14.0-18.0 [facility] INR in Platelet poor plasma by Coagulation assayon 12-06-2023 INR Coag (PPP) [Relative time] 2.78 {INR} [facility] Comment on above: DESIRED INR:2.0-3.0 CONDITIONS NOT LISTED BELOW2.5-3.5 FOR PROSTHETIC HEART VALVE REPLACEMENT2.5-3.5 RECURRENT THROMBOSIS Laboratory - Chemistry and C hemistry - challengeon 12-06-2023 Albumin [Mass/Vol] 2.9 g/dL Low 3.4-5.0 [facility] ALP [Catalytic activity/Vol] 78 U/L 46-116 [facility] ALT [Catalytic activity/Vol] 20 U/L 16-63 [facility] AST [Catalytic activity/Vol] 18 U/L 15-37 [facility] Bilirubin [Mass/Vol] 1.1 mg/dL High 0.2-1.0 [facility] Calcium [Mass/Vol] 8.7 mg/dL 8.5-10.1 [facility] Chloride [Moles/Vol] 104 mmol/L 98-107 [facility] CO2 [Moles/Vol] 28.4 mmol/L 21.0-32.0 [facility] Creatinine [Mass/Vol] 0.75 mg/dL 0.70-1.30 [facility] GFR/1.73 sq M.predicted MDRD (S/P/Bld) [Vol rate/Area] mL/min/{1.73_m2} >=60 [facility] Glucose [Mass/Vol] 106 mg/dL 74-106 [facility] Potassium [Moles/Vol] 4.0 mmol/L 3.5-5.1 [facility] Protein [Mass/Vol] 6.2 g/dL Low 6.4-8.2 [facility] Sodium [Moles/Vol] 137 mmol/L 136-145 [facility] Urea nitrogen [Mass/Vol] 15.0 mg/dL 7.0-18.0 [facility] Urea nitrogen/Creatinine [Mass ratio] 20.0 mg/mg [facility] Laboratory - Hematology and Cell countson 12-06-2023 Immature granulocytes/100 WBC (Bld) 0.3 % 0.0-0.5 [facility] Leukocytes [#/volume] correc jossue for nucleated erythrocytes in Blood by Automated counon 12-06-2023 WBC corrected for nucl RBC Auto (Bld) [#/Vol] 7.5 10 3/uL 4.0-11.0 [facility] Lymphocytes Auto (Bld) [#/Vo l]on 12-06-2023 Lymphocytes (Bld) [#/Vol] 1.8 10 3/uL 1.2-3.8 [facility] Lymphocytes/100 WBC Auto (Bl d)on 12-06-2023 Lymphocytes/100 WBC (Bld) 23.5 % 20.5-60.0 [facility] MCH Auto (RBC) [Entitic mass ]on 12-06-2023 MCH (RBC) [Entitic mass] 29.8 pg 25.9-34.0 [facility] MCHC Auto (RBC) [Mass/Vol]on 12-06-2023 MCHC (RBC) [Mass/Vol] 32.3 g/dL 29.9-35.2 [facility] MCV Auto (RBC) [Entitic vol] on 12-06-2023 MCV (RBC) [Entitic vol] 92.3 fL 80.0-94.0 [facility] Monocytes Auto (Bld) [#/Vol] on 12-06-2023 Monocytes (Bld) [#/Vol] 0.6 10 3/uL 0.3-0.8 [facility] Monocytes/100 WBC Auto (Bld) on 12-06-2023 Monocytes/100 WBC (Bld) 8.6 % 1.7-12.0 [facility] Neutrophils Auto (Bld) [#/Vo l]on 12-06-2023 Neutrophils (Bld) [#/Vol] 4.9 10 3/uL 1.4-6.5 [facility] Neutrophils/100 WBC Auto (Bl d)on 12-06-2023 Neutrophils/100 WBC (Bld) 65.2 % 43.0-75.0 [facility] No Panel InformationOrdered By: Edgardo Feng on 12-06-2023 Acid Fast Smear [facility] Aerobic Culture [facility] AFB Specimen Processing [facility] Anaerobic Culture [facility] No Panel Informationon 12-05 Fungal Smear Result \R\ Fungus Stain [facility] Gram Stain Result 1 \R\ Gram Stain Result [facility] Miscellaneous Test Comment See comment [facility] Comment on above: Specimen Source: LEG RT - Leg Right - Leg Rt - 603.600 Eosinophils # (Auto) 0.1 10 3/uL 0.0-0.7 [facility] Immature Granulocyte # (Auto) 0.02 10 3/uL 0.00-0.03 [facility] Platelet mean volume Auto (B ld) [Entitic vol]on 12-06-2023 Platelet mean volume (Bld) [Entitic vol] 10.0 fL 9.5-13.5 [facility] Platelets Auto (Bld) [#/Vol] on 12-06-2023 Platelets (Bld) [#/Vol] 205 10 3/uL 150-450 [facility] Prothrombin time (PT)on 11-12 PT Coag (PPP) [Time] 26.6 s High 9.0-11.6 [facility] RBC Auto (Bld) [#/Vol]on RBC (Bld) [#/Vol] 4.56 10 6/uL Low 4.70-6.10 [facility] Serum or plasma albumin/glob ulin mass ratioon 12-06-2023 Albumin/Globulin [Mass ratio] 0.9 {ratio} [facility] Serum or plasma anion gap de terminationon 12-06-2023 Anion gap [Moles/Vol] 8.6 mmol/L [facility] Basophils Auto (Bld) [#/Vol] on 12-05-2023 Basophils (Bld) [#/Vol] 0.0 10 3/uL 0.0-0.1 [facility] Basophils/100 WBC Auto (Bld) on 12-05-2023 Basophils/100 WBC (Bld) 0.6 % 0.2-2.0 [facility] Eosinophils/100 WBC Auto (Bl d)on 12-05-2023 Eosinophils/100 WBC (Bld) 1.7 % 0.9-7.0 [facility] Erythrocyte distribution wid th Auto (RBC) [Ratio]on 12-05-2023 Erythrocyte distribution width (RBC) [Ratio] 14.6 % 11.0-15.0 [facility] Estimated glomerular filtrat ion rate (GFR) non- Americanon 12-05-2023 GFR/1.73 sq M.predicted among non-blacks MDRD (S/P/Bld) [Vol rate/Area] mL/min/{1.73_m2} >=60 [facility] Globulin Calc (S) [Mass/Vol] on 12-05-2023 Globulin (S) [Mass/Vol] 3.6 g/dL [facility] Glucose mean value [Mass/vol ume] in Blood Estimated from glycated hemoglobinon 12-05-2023 Average glucose Estimated from glycated hemoglobin (Bld) [Mass/Vol] 126 mg/dL [facility] Hematocrit Auto (Bld) [Volum e fraction]on 12-05-2023 Hematocrit (Bld) [Volume fraction] 42.7 % 42.0-54.0 [facility] Hemoglobin [Mass/volume] in Bloodon 12-05-2023 Hemoglobin (Bld) [Mass/Vol] 13.9 g/dL Low 14.0-18.0 [facility] INR in Platelet poor plasma by Coagulation assayon 12-05-2023 INR Coag (PPP) [Relative time] 3.49 {INR} [facility] Comment on above: DESIRED INR:2.0-3.0 CONDITIONS NOT LISTED BELOW2.5-3.5 FOR PROSTHETIC HEART VALVE REPLACEMENT2.5-3.5 RECURRENT THROMBOSIS Laboratory - Chemistry and C hemistry - challengeon 12-05-2023 Albumin [Mass/Vol] 3.2 g/dL Low 3.4-5.0 [facility] ALP [Catalytic activity/Vol] 95 U/L 46-116 [facility] ALT [Catalytic activity/Vol] 28 U/L 16-63 [facility] AST [Catalytic activity/Vol] 21 U/L 15-37 [facility] Bilirubin [Mass/Vol] 0.7 mg/dL 0.2-1.0 [facility] Calcium [Mass/Vol] 8.8 mg/dL 8.5-10.1 [facility] Chloride [Moles/Vol] 100 mmol/L 98-107 [facility] CO2 [Moles/Vol] 28.2 mmol/L 21.0-32.0 [facility] Creatinine [Mass/Vol] 0.78 mg/dL 0.70-1.30 [facility] GFR/1.73 sq M.predicted MDRD (S/P/Bld) [Vol rate/Area] mL/min/{1.73_m2} >=60 [facility] Glucose [Mass/Vol] 124 mg/dL High 74-106 [facility] Potassium [Moles/Vol] 4.1 mmol/L 3.5-5.1 [facility] Protein [Mass/Vol] 6.8 g/dL 6.4-8.2 [facility] Sodium [Moles/Vol] 135 mmol/L Low 136-145 [facility] Urea nitrogen [Mass/Vol] 14.0 mg/dL 7.0-18.0 [facility] Urea nitrogen/Creatinine [Mass ratio] 17.9 mg/mg [facility] Laboratory - Hematology and Cell countson 12-05-2023 ESR (Bld) [Velocity] 46 mm/h High <=20 [facility] HbA1c (Bld) [Mass fraction] 6.0 % 4.5-6.2 [facility] Comment on above: ADA RECOMMENDED LIMI T 4.0 - 6.0ADA THERAPEUTIC TARGET < 7.0ACTION SUGGESTED> 7.0 Immature granulocytes/100 WBC (Bld) 0.2 % 0.0-0.5 [facility] Leukocytes [#/volume] correc jossue for nucleated erythrocytes in Blood by Automated counon 12-05-2023 WBC corrected for nucl RBC Auto (Bld) [#/Vol] 6.6 10 3/uL 4.0-11.0 [facility] Lymphocytes Auto (Bld) [#/Vo l]on 12-05-2023 Lymphocytes (Bld) [#/Vol] 1.4 10 3/uL 1.2-3.8 [facility] Lymphocytes/100 WBC Auto (Bl d)on 12-05-2023 Lymphocytes/100 WBC (Bld) 21.3 % 20.5-60.0 [facility] MCH Auto (RBC) [Entitic mass ]on 12-05-2023 MCH (RBC) [Entitic mass] 29.8 pg 25.9-34.0 [facility] MCHC Auto (RBC) [Mass/Vol]on 12-05-2023 MCHC (RBC) [Mass/Vol] 32.6 g/dL 29.9-35.2 [facility] MCV Auto (RBC) [Entitic vol] on 12-05-2023 MCV (RBC) [Entitic vol] 91.4 fL 80.0-94.0 [facility] Monocytes Auto (Bld) [#/Vol] on 12-05-2023 Monocytes (Bld) [#/Vol] 0.5 10 3/uL 0.3-0.8 [facility] Monocytes/100 WBC Auto (Bld) on 12-05-2023 Monocytes/100 WBC (Bld) 8.1 % 1.7-12.0 [facility] Neutrophils Auto (Bld) [#/Vo l]on 12-05-2023 Neutrophils (Bld) [#/Vol] 4.5 10 3/uL 1.4-6.5 [facility] Neutrophils/100 WBC Auto (Bl d)on 12-05-2023 Neutrophils/100 WBC (Bld) 68.1 % 43.0-75.0 [facility] No Panel InformationOrdered By: Alix Mims on 12-05-2023 Blood Culture 2 [facility] Blood Culture 1 [facility] No Panel Informationon 12-04 C-Reactive Protein, Quantitative <0.50 mg/dL <=0.50 [facility] Eosinophils # (Auto) 0.1 10 3/uL 0.0-0.7 [facility] Immature Granulocyte # (Auto) 0.01 10 3/uL 0.00-0.03 [facility] Platelet mean volume Auto (B ld) [Entitic vol]on 12-05-2023 Platelet mean volume (Bld) [Entitic vol] 9.9 fL 9.5-13.5 [facility] Platelets Auto (Bld) [#/Vol] on 12-05-2023 Platelets (Bld) [#/Vol] 216 10 3/uL 150-450 [facility] Prothrombin time (PT)on 11-12 PT Coag (PPP) [Time] 32.7 s High 9.0-11.6 [facility] RBC Auto (Bld) [#/Vol]on RBC (Bld) [#/Vol] 4.67 10 6/uL Low 4.70-6.10 [facility] Serum or plasma albumin/glob ulin mass ratioon 12-05-2023 Albumin/Globulin [Mass ratio] 0.9 {ratio} [facility] Serum or plasma anion gap de terminationon 12-05-2023 Anion gap [Moles/Vol] 10.9 mmol/L [facility] CNPNon 11-15-2023 CNPN Telephone (LAYNEMN) JORGE DAVIS ([id number]) 1945 [facility]* Date Time Provider Department 11/15/23 RUBEN DENTON During your visit today, we recorded the following information about you: Bryan Dwyer 11/15/2023 2:37 PM Signed Documentation scanned into EP outside database Scanned INR results into [employer] Allergies As of Date: 11/15/2023 (No Known Allergies) Date Reviewed: 07/04/2023 Reviewed by: Delilah Novoa LPN - Fully Assessed Reason for Visit: Received Outside Medical Records [[id number]] Prescriptions as of 11/15/2023 - warfarin (COUMADIN) [...] Atrial fibrillation (HCC) [I48.91] 07/08/2014 Atherosclerosis of [place] coronary artery of na*07/10/2015 Diabetes mellitus type 2, controlled, without c*07/10/2015 Atrial fibrillation, persistent (HCC) [I48.19] 07/22/2015 Paroxysmal atrial fibrillation (HCC) [I48.0] 12/04/2015 Paroxysmal atrial flutter (HCC) [I48.92] 05/30/2018 Obesity, Class III, BMI >= 40 [E66.01] 10/23/2019 Chronic diastolic heart failure (HCC) [I50.32] 06/05/2023 Mixed hyperlipidemia [E78.2] 06/05/2023 Encounter Status:Closed by BRYAN DWYER on 11/15/23 [facility] Scooter 09-19-2023 CNPN Telephone (CARDMN) JORGE DAVIS ([id number]) 1945 [facility] Date Time Provider [...] Atrial fibrillation (HCC) [I48.91] 07/08/2014 Atherosclerosis of [place] coronary artery of na*07/10/2015 Diabetes mellitus type 2, controlled, without c*07/10/2015 Atrial fibrillation, persistent (HCC) [I48.19] 07/22/2015 Paroxysmal atrial fibrillation (HCC) [I48.0] 12/04/2015 Paroxysmal atrial flutter (HCC) [I48.92] 05/30/2018 Obesity, Class III, BMI >= 40 [E66.01] 10/23/2019 Chronic diastolic heart failure (HCC) [I50.32] 06/05/2023 Mixed hyperlipidemia [E78.2] 06/05/2023 Encounter Status:Closed by BRYAN DWYER on 09/19/23 Normal [facility] Tele[facility] (PRESLEY) JORGE DAVIS ([id number]) 1945 [facility] [place] [facility] Date Time Provider Department 08/22/23 RUBEN DENTON During your visit today, we recorded the following information about you: Bryan Dwyer 08/22/2023 4:53 PM Signed Documentation scanned into EP outside database Scanned INR results into [employer] Allergies As of Date: 08/22/2023 (No Known Allergies) Date Reviewed: 07/04/2023 Reviewed by: Delilah Novoa LPN - Fully Assessed Reason for Visit: Received Outside Medical Records [[id number]] Prescriptions as of 08/22/2023 - warfarin (COUMADIN) [...] Atrial fibrillation (HCC) [I48.91] 07/08/2014 Atherosclerosis of [place] coronary artery of na*07/10/2015 Diabetes mellitus type 2, controlled, without c*07/10/2015 Atrial fibrillation, persistent (HCC) [I48.19] 07/22/2015 Paroxysmal atrial fibrillation (HCC) [I48.0] 12/04/2015 Paroxysmal atrial flutter (HCC) [I48.92] 05/30/2018 Obesity, Class III, BMI >= 40 [E66.01] 10/23/2019 Chronic diastolic heart failure (HCC) [I50.32] 06/05/2023 Mixed hyperlipidemia [E78.2] 06/05/2023 Encounter Status:Closed by BRYAN DWYER on 08/22/23 [facility] CNPScarlett 07-25-2023 CNPN Telephone (CARDMN) JORGE DAVIS ([id number]) 1945 [facility]* Date Time Provider Department 07/25/23 RUBEN DENTON During your visit today, we recorded the following information about you: Bryan Dwyer 07/25/2023 10:22 AM Signed Documentation scanned into EP outside database Scanned INR results into [employer] Allergies As of Date: 07/25/2023 (No Known Allergies) Date Reviewed: 07/04/2023 Reviewed by: Delilah Novoa LPN - Fully Assessed Reason for Visit: Received Outside Medical Records [[id number]] Cmt: INR Prescriptions as of 07/25/2023 - [...] Atrial fibrillation (HCC) [I48.91] 07/08/2014 Atherosclerosis of [place] coronary artery of na*07/10/2015 Diabetes mellitus type 2, controlled, without c*07/10/2015 Atrial fibrillation, persistent (HCC) [I48.19] 07/22/2015 Paroxysmal atrial fibrillation (HCC) [I48.0] 12/04/2015 Paroxysmal atrial flutter (HCC) [I48.92] 05/30/2018 Obesity, Class III, BMI >= 40 [E66.01] 10/23/2019 Chronic diastolic heart failure (HCC) [I50.32] 06/05/2023 Mixed hyperlipidemia [E78.2] 06/05/2023 Encounter Status:Closed by BRYAN DWYER on 07/25/23 [facility] Luis 07-04-2023 CNOV Office Visit (CAEPAV ) JORGE DAVIS ([id number]) 1945 [facility]* Date Time Provider Department 07/04/23 10:00 [...] 07/04/2023 10:19 AM Signed [facility] Department of Cardiovascular Medicine SECTION OF CARDIAC PACING and ELECTROPHYSIOLOGY OUTPATIENT VISIT DATE July 04, 2023 OUTPATIENT VISIT TYPE ESTABLISHED PRIMARY CARE PHYSICIAN: Declan Swanson ([place]) [address] [place] [address] CHIEF COMPLAINT: Cardiology follow up HISTORY OF PRESENT ILLNESS: Mr. Davis is a 78 year old male who presents today for follow-up visit. He is a patient of Dr Evans and Dr Denotn's with history of persistent AF s/p PVAI [...] MEDIALANDLAT COMPARTMENTS 2000 Left Knee CARDIAC CATH 2010 [...] Cold Intole (more content not included)... Normal [facility] Scooter [facility]20[facility] (CARDMN) JORGE DAVIS ([id number]) 1945 [facility]* Date Time Provider Department 06/27/23 RUBEN DENTON During your visit today, we recorded the following information about you: Bryan Dwyer 06/27/2023 2:56 PM Signed Documentation scanned into EP outside database Scanned INR results into [facility] Allergies As of Date: 06/27/2023 (No Known Allergies) Date Reviewed: 06/05/2023 Reviewed by: Venkat Evans V, MD - Fully Assessed Reason for Visit: Received Outside Medical Records [[id number]] Prescriptions as of 06/27/2023 - warfarin (COUMADIN) [...] Atrial fibrillation (HCC) [I48.91] 07/08/2014 Atherosclerosis of [place] coronary artery of na*07/10/2015 Diabetes mellitus type 2, controlled, without c*07/10/2015 Atrial fibrillation, persistent (HCC) [I48.19] 07/22/2015 Paroxysmal atrial fibrillation (HCC) [I48.0] 12/04/2015 Paroxysmal atrial flutter (HCC) [I48.92] 05/30/2018 Obesity, Class III, BMI >= 40 [E66.01] 10/23/2019 Chronic diastolic heart failure (HCC) [I50.32] 06/05/2023 Mixed hyperlipidemia [E78.2] 06/05/2023 Encounter Status:Closed by BRYAN DWYER on 06/27/23 [facility] CNOVon 06-05-2023 CNOV Office Visit (CARDAV ) RYANJORGE DURAND ([id number]) 1945 [facility] Date Time Provider Department 06/05/23 1:40 PM [...] hyperlipidemia [E78.2] Order(s):ECG COMPLETE [ECG01] Order #: [id number]. #:[id number]--[id number] kg ECHO [902301] Order #: [id number]: 1 FUTURE Prescriptions as of 06/05/2023 - warfarin (COUMADIN) 1 mg tablet Take 4 mg by mouth once daily. - metFORMIN (GLUCOPHAGE) 500 mg t (more content not included)... Normal [facility] [id number] 06-05-2023 ECG01 Ventricular Rate : 6 8 BPM QRS Duration : 108 ms Q-T Interval : 466 ms QTC Calculation(Bazett) : 495 ms Calculated R [place] : -27 degrees Calculated T [place] : 53 degrees ATRIAL FIBRILLATION INCOMPLETE RIGHT BUNDLE BRANCH BLOCK ABNORMAL ECG Confirmed by KATRINA KELLEY MD ([id number]) on 06/07/2023 9:44:30 AM NAME : JORGE DAVIS PID : [id number] : 1945 Gender : Male Race : [...] : , Acquired by : Ale lema [facility] Scooter 05-30-2023 CNPN Telephone (CARDMN) JORGE DAVIS ([id number]) 1945 [place] [facility] Date Time Provider Department 05/30/23 RUBEN DENTON During your visit today, we recorded the following information about you: Bryan Dwyer 05/30/2023 9:24 AM Signed Documentation scanned into EP outside database Scanned into [employer] Allergies As of Date: 05/30/2023 (No Known Allergies) Date Reviewed: 06/24/2022 Reviewed by: Ruben Denton MD - Fully Assessed Reason for Visit: Received Outside Medical Records [[id number]] Cmt: INR Prescriptions as of 05/30/2023 - [...] Atrial fibrillation (HCC) [I48.91] 07/08/2014 Atherosclerosis of [place] coronary artery of na*07/10/2015 Diabetes mellitus type 2, controlled, without c*07/10/2015 Atrial fibrillation, persistent (HCC) [I48.19] 07/22/2015 Paroxysmal atrial fibrillation (HCC) [I48.0] 12/04/2015 Paroxysmal atrial flutter (HCC) [I48.92] 05/30/2018 Obesity, Class III, BMI >= 40 [E66.01] 10/23/2019 Encounter Status:Closed by BRYAN DWYER on 05/30/23 [facility] CNPNon 05-02-2023 CNPN Telephone (CARDMN) JORGE DAVIS ([id number]) 1945 [facility]* Date Time Provider Department 05/02/23 RUBEN DENTON During your visit today, we recorded the following information about you: Bryan Dwyer 05/02/2023 3:27 PM Signed Documentation scanned into EP outside database Allergies As of Date: 05/02/2023 (No Known Allergies) Date Reviewed: 06/24/2022 Reviewed by: Ruben Denton MD - Fully Assessed Reason for Visit: Received Outside Medical Records [[id number]] Cmt: INR results Prescriptions as of 05/02/2023 [...] Atrial fibrillation (HCC) [I48.91] 07/08/2014 Atherosclerosis of [place] coronary artery of na*07/10/2015 Diabetes mellitus type 2, controlled, without c*07/10/2015 Atrial fibrillation, persistent (HCC) [I48.19] 07/22/2015 Paroxysmal atrial fibrillation (HCC) [I48.0] 12/04/2015 Paroxysmal atrial flutter (HCC) [I48.92] 05/30/2018 Obesity, Class III, BMI >= 40 [E66.01] 10/23/2019 Encounter Status:Closed by BRYAN DWYER on 05/02/23 [facility] CNPN Telephone (CARDMN) JORGE DAVIS ([id number]) 1945 [facility] Date Time Provider Department 04/06/23 RUBEN DENTON During your visit today, we recorded the following information about you: Suman Garvin 04/06/2023 6:45 AM Signed Outside medical records (INR report 04/04/2023) scanned into [employer] and shared [employer]. Allergies As of Date: 04/06/2023 (No Known Allergies) Date Reviewed: 06/24/2022 Reviewed by: Ruben Denton MD - Fully Assessed Reason for Visit: Received Outside Medical Records [[id number]] Cmt: INR Report 04/04/2023 Prescriptions as of [...] Atrial fibrillation (HCC) [I48.91] 07/08/2014 Atherosclerosis of [place] coronary artery of na*07/10/2015 Diabetes mellitus type 2, controlled, without c*07/10/2015 Atrial fibrillation, persistent (HCC) [I48.19] 07/22/2015 Paroxysmal atrial fibrillation (HCC) [I48.0] 12/04/2015 Paroxysmal atrial flutter (HCC) [I48.92] 05/30/2018 Obesity, Class III, BMI >= 40 [E66.01] 10/23/2019 Encounter Status:Closed by SUMAN GARVIN on 05/18/23 [facility] XR knee BI 2Von 10-12-2022 XR knee BI 2V [facility] [employer] Other XR knee BI 2V [facility] [employer] Other XR knee BI 2V [address] [place] [address] better. Other [place]R [place] [address] [place] [address] [facility] better. Other XR knee BI 2V XRay Report [employer] Other XR knee BI 2V Signed [place] better. Other XR knee BI 2V Patient: Corina Davis MR#: [id number] [employer] Other XR knee BI 2V 14 [employer] Other XR knee BI 2V : 1945 Acct:[id number] [employer] Other XR knee BI 2V Age/Sex: 77 / M ADM Date: 10/12/22 [employer] Other XR knee BI 2V Loc: [facility] [employer] Other XR knee BI 2V Attending Dr: Bruce Shine II, MD [employer] Other XR knee BI 2V Copies to: Bruce Shine MD [employer] Other XR knee BI 2V Ordering Provider: Bruce Shine MD [employer] Other XR knee BI 2V Date of Service: 10/12/22 [employer] Other XR knee BI 2V XR/XR hip BI w PEL1V: Pain in right hip;Pain in left hip [employer] Other XR knee BI 2V ([id number]) XR/XR knee BI 2V: PAIN [employer] Other XR knee BI 2V ADULT PELVIS WITH BILATERAL HIPS - one view each, bilateral knee series 4 views each [employer] Other XR knee BI 2V CLINICAL HISTORY: Bilateral hip/groin pain for years. Bilateral generalized knee pain for years. [employer] Other XR knee BI 2V COMPARISON: None [employer] Other XR knee BI 2V FINDINGS: [employer] Other XR knee BI 2V Hip series: Moderate degenerative changes of both hips without acute bony process. Degenerative [employer] Other XR knee BI 2V change also noted involving the visualized lower lumbar spine, SI joints and pubic symphysis. [employer] Other XR knee BI 2V Bilateral knee series: Bilateral knee prostheses are in place without radiographic complication. No [employer] Other XR knee BI 2V acute bony process i s seen. Vascular calcifications. [employer] Other XR knee BI 2V XR/XR hip BI w PEL1V [employer] Other XR knee BI 2V IMPRESSION: [employer] Other XR knee BI 2V MODERATE DEGENERATIV E CHANGES OF BOTH HIPS WITHOUT ACUTE BONY PROCESS. [employer] Other XR knee BI 2V BILATERAL KNEE PROSTHESES WITHOUT RADIOGRAPHIC COMPLICATION. [employer] Other XR knee BI 2V Impression dictated by: Jose Galvan Jr., Rubens10/12/2022 12:41 PM [employer] Other XR knee BI 2V Dictation Location: [place] [address] [employer] Other XR knee BI 2V Transcribed By: PWS 10/12/22 1241 [employer] Other XR knee BI 2V Dictated By: Jose Galvan Jr, DO 10/12/22 1239 [employer] Other XR knee BI 2V Signed By: [employer] Other XR knee BI 2V 10/12/22 1241 [employer] Other A1C with Estimated Average G luon 05-16-2022 A1C with Estimated Average Glu [employer] Other GLYCOHEMOGLOBIN A1Con 2022 ADA RECOMMENDATION SEE BELOW Normal [facility] Comment on above: Result Comment: ADA RECOMMENDED LIMIT 4.0 - 6.0 ADA THERAPEUTIC TARGET < 7.0 ACTION SUGGESTED > 7.0 Performed By: #### A 1C #### [facility] [address] [place], [place] [address] Dr. Edna Machado Glucose [Mass/Vol] 131 mg/dL Normal [facility] Comment on above: Performed By: #### A 1C #### [facility] [address] [place], [place] [address] Dr. Edna Machado HbA1c (Bld) [Mass fraction] 6.2 % Normal 4.5-6.2 [facility] Comment on above: Performed By: #### A 1C #### [facility] [address] [place], [place] [address] CHEST WO CONon [...] GLENDA FENG Date: 2021-09-24 13:29 Normal [facility] CBC AUTO DIFFon 09-22-2021 BASO # 0.0 103/ul Normal 0.0-0.1 [facility] Comment on above: Performed By: #### C BC #### [facility] [address] [place] [address] Dr. Edna Machado Basophils/100 WBC (Bld) 0.5 % Normal 0.2-2.0 [facility] Comment on above: Performed By: #### C BC #### [facility] [address] [place] [address] Dr. Edna Machado EO # 0.1 103/ul Normal 0.0-0.7 [facility] Comment on above: Performed By: #### C BC #### [facility] [address] [place] [address] Dr. Edna Machado Eosinophils/100 WBC (Bld) 1.4 % Normal 0.9-7.0 [facility] Comment on above: Performed By: #### C BC #### [facility] [address] [place] [address] Dr. Edna Machado Erythrocyte distribution width (RBC) [Ratio] 14.6 % Normal 11.0-15.0 [facility] Comment on above: Performed By: #### C BC #### [facility] [address] [place] [address] Dr. Edna Machado Hematocrit (Bld) [Volume fraction] 46.5 % Normal 42.0-54.0 [facility] Comment on above: Performed By: #### C BC #### [facility] [address] [place] [address] Dr. Edna Machado Hemoglobin (Bld) [Mass/Vol] 15.0 g/dL Normal 14.0-18.0 [facility] Comment on above: Performed By: #### C BC #### [facility] [address] [place] [address] Dr. Edna Machado IG # 0.01 10e3/ul Normal 0.00-0.03 [facility] Comment on above: Performed By: #### C BC #### [facility] [address] [place] [address] Dr. Edna Machado IG % 0.1 % Normal 0.0-0.5 [facility] Comment on above: Performed By: #### C BC #### [facility] [address] [place] [address] Dr. Edna Machado LYMPH # 2.1 103/ul Normal 1.2-3.8 [facility] Comment on above: Performed By: #### C BC #### [facility] [address] [place] [address] Dr. Edna Machado Lymphocytes/100 WBC (Bld) 27.8 % Normal 20.5-60.0 [facility] Comment on above: Performed By: #### C BC #### [facility] [address] [place] [address] Dr. Edna Machado MANUAL DIFF REQ NO Normal [facility] Comment on above: Performed By: #### C BC #### [facility] [address] [place] [address] Dr. Edna Machado MCH (RBC) [Entitic mass] 29.0 pg Normal 25.9-34.0 [facility] Comment on above: Performed By: #### C BC #### [facility] [address] [place] [address] Dr. Edna Machado MCHC (RBC) [Mass/Vol] 32.3 g/dL Normal 29.9-35.2 [facility] Comment on above: Performed By: #### C BC #### [facility] [address] [place] [address] Dr. Edna Machado MCV (RBC) [Entitic vol] 89.8 fL Normal 80.0-94.0 [facility] Comment on above: Performed By: #### C BC #### [facility] [address] [place] [address] Dr. Edna Machado MONO # 0.6 103/ul Normal 0.3-0.8 [facility] Comment on above: Performed By: #### C BC #### [facility] [address] [place] [address] Dr. Edna Machado Monocytes/100 WBC (Bld) 8.3 % Normal 1.7-12.0 [facility] Comment on above: Performed By: #### C BC #### [facility] [address] [place] [address] Dr. Edna Machado NEUT # 4.6 103/ul Normal 1.4-6.5 [facility] Comment on above: Performed By: #### C BC #### [facility] [address] [place] [address] Dr. Edna Machado Neutrophils/100 WBC (Bld) 61.9 % Normal 43.0-75.0 [facility] Comment on above: Performed By: #### C BC #### [facility] [address] [place] [address] Dr. Edna Machado Platelet mean volume (Bld) [Entitic vol] 10.0 fL Normal 9.5-13.5 [facility] Comment on above: Performed By: #### C BC #### [facility] [address] [place] [address] Dr. Edna Machado PLT 218 103/ul Normal 150-450 [facility] Comment on above: Performed By: #### C BC #### [facility] [address] [place] [address] Dr. Edna Machado RBC 5.18 106/ul Normal 4.70-6.10 [facility] Comment on above: Performed By: #### C BC #### [facility] [address] [place] [address] Dr. Edna Machado WBC 7.4 103/ul Normal 4.0-11.0 [facility] Comment on above: Performed By: #### C BC #### [facility] [address] [place] [address] Dr. Edna Machado GLYCOHEMOGLOBIN A1Con 2021 ADA RECOMMENDATION SEE BELOW Normal [facility] Comment on above: Result Comment: ADA RECOMMENDED LIMIT 4.0 - 6.0 ADA THERAPEUTIC TARGET < 7.0 ACTION SUGGESTED > 7.0 Performed By: #### A 1C #### [facility] [address] [address] [address] Edna Machado Glucose [Mass/Vol] 123 mg/dL Normal [facility] Comment on above: Performed By: #### A 1C #### [facility] [address] [address] [address] Edna Machado HbA1c (Bld) [Mass fraction] 5.9 % Normal 4.5-6.2 [facility] Comment on above: Performed By: #### A 1C #### [facility] [address] [address] [address] Edna Machado LIPID PROFILEon 09-22-2021 CHOL-HDL RATIO NORM SEE BELOW Normal [facility] Comment on above: Result Comment: 3.3 - 4.4 LOW RISK 4.4 - 7.1 AVERAGE RISK 7.1 - 11.0 MODERATE RISK >11.0 HIGH RISK Performed By: #### L IPID, CMP #### [facility] [address] [address] [address] Edna Machado Cholesterol [Mass/Vol] 132 mg/dL Normal <=200 [facility] Comment on above: Performed By: #### L IPID, CMP #### [facility] [address] [address] [address] Edna Machado Cholesterol in HDL [Mass/Vol] 43 mg/dL Normal 40-60 [facility] Comment on above: Performed By: #### L IPID, CMP #### [facility] [address] [address] [address] Edna Machado Cholesterol in LDL [Mass/Vol] 71.0 mg/dL Normal [facility] Comment on above: Performed By: #### L IPID, CMP #### [facility] [address] [address] [address] Edna Machado Cholesterol.total/Cho lesterol in HDL [Mass ratio] 3.1 {ratio} Normal [facility] Comment on above: Performed By: #### L IPID, CMP #### [facility] [address] [address] [address] Edna Machado HDL NORMAL > or = 60 mg/dl - LO W CARDIOVASCULAR RISK <40 mg/dl - HIGH CARDIOVASCULAR RISK Normal [facility] Comment on above: Performed By: #### L IPID, CMP #### [facility] [address] [place] [address] Dr. Edna Machado LDL CALC NORMAL SEE BELOW Normal [facility] Comment on above: Result Comment: <100 mg/dl OPTIMAL 100 - 129 mg/dl NEAR OR ABOVE OPTIMAL 130 - 159 mg/dl BORDERLINE HIGH 160 - 189 mg/dl HIGH >190 mg/dl VERY HIGH Performed By: #### L IPID, CMP #### [facility] [address] [place] [address] Dr. Edna Machado Triglyceride [Mass/Vol] 90 mg/dL Normal <=150 [facility] Comment on above: Performed By: #### L IPID, CMP #### [facility] [address] [place] [address] Dr. Edna Machado VLDL CALC 18.0 mg/dL Normal [facility] Comment on above: Performed By: #### L IPID, CMP #### [facility] [address] [place] [address] Dr. Edna Machado PROF 14(COMP METB)on 022 Albumin [Mass/Vol] 3.5 g/dL Normal 3.4-5.0 [facility] Comment on above: Performed By: #### L IPID, CMP #### [facility] [address] [place] [address] Dr. Edna Machado Albumin/Globulin [Mass ratio] 0.9 {ratio} Normal [facility] Comment on above: Performed By: #### L IPID, CMP #### [facility] [address] [place] [address] Dr. Edna Machado ALP [Catalytic activity/Vol] 83 U/L Normal 46-116 [facility] Comment on above: Performed By: #### L IPID, CMP #### [facility] [address] [place] [address] Dr. Edna Machado ALT [Catalytic activity/Vol] 22 U/L Normal 16-63 [facility] Comment on above: Performed By: #### L IPID, CMP #### [facility] [address] [address] [address] Edna Machado Anion gap [Moles/Vol] 9.4 mmol/L Normal [facility] Comment on above: Performed By: #### L IPID, CMP #### [facility] [address] [address] [address] Edna Machado AST [Catalytic activity/Vol] 13 U/L Critically low 15-37 [facility] Comment on above: Performed By: #### L IPID, CMP #### [facility] [address] [address] [address] Edna Machado Bilirubin [Mass/Vol] 0.6 mg/dL Normal 0.2-1.0 [facility] Comment on above: Performed By: #### L IPID, CMP #### [facility] [address] [place] [address] Dr. Edna Machado Calcium [Mass/Vol] 8.7 mg/dL Normal 8.5-10.1 [facility] Comment on above: Performed By: #### L IPID, CMP #### [facility] [address] [address] [address] Edna Machado Chloride [Moles/Vol] 103 mmol/L Normal 98-107 [facility] Comment on above: Performed By: #### L IPID, CMP #### [facility] [address] [place] [address] Dr. Edna Machado CO2 [Moles/Vol] 28.7 mmol/L Normal 21.0-32.0 [facility] Comment on above: Performed By: #### L IPID, CMP #### [facility] [address] [place] [address] Dr. Edna Machado Creatinine [Mass/Vol] 0.83 mg/dL Normal 0.70-1.30 [facility] Comment on above: Performed By: #### L IPID, CMP #### [facility] [address] [place] [address] Dr. Edna Machado EGFR-AF CAMBODIAN >60 Normal >=60 [facility] Comment on above: Performed By: #### L IPID, CMP #### [facility] [address] [address] [address] Edna Machado EGFR-NON AF CAMB[place]IAN >60 Normal >=60 [facility] Comment on above: Performed By: #### L IPID, CMP #### [facility] [address] [address] [address] Edna Machado Globulin (S) [Mass/Vol] 3.7 g/dL Normal [facility] Comment on above: Performed By: #### L IPID, CMP #### [facility] [address] [address] [address] Edna Machado Glucose [Mass/Vol] 106 mg/dL Normal 74-106 [facility] Comment on above: Performed By: #### L IPID, CMP #### [facility] [address] [place] [address] Dr. Edna Machado Potassium [Moles/Vol] 4.1 mmol/L Normal 3.5-5.1 [facility] Comment on above: Performed By: #### L IPID, CMP #### [facility] [address] [place] [address] Dr. Edna Machado Protein [Mass/Vol] 7.2 g/dL Normal 6.4-8.2 [facility] Comment on above: Performed By: #### L IPID, CMP #### [facility] [address] [place] [address] Dr. Edna Machado Sodium [Moles/Vol] 137 mmol/L Normal 136-145 [facility] Comment on above: Performed By: #### L IPID, CMP #### [facility] [address] [place] [address] Dr. Edna Machado Urea nitrogen [Mass/Vol] 11.0 mg/dL Normal 7.0-18.0 [facility] Comment on above: Performed By: #### L IPID, CMP #### [facility] [address] [place] [address] Dr. Edna Machado Urea nitrogen/Creatinine [Mass ratio] 13.3 mg/mg Normal [facility] Comment on above: Performed By: #### L IPID, [facility] #### [facility] [address] [address] [address] Edna Machado Ambulatory Clinical Summaryo n 02-28-2020 Ambulatory Clinical Summary {[id number] [facility] Patient Education 02-28-20 Patient Education [...] Document Reviewed: 11/02/2007 ExitCare? Patient Information ?2013 [employer]. Normal [facility] Urology Office/Clinic Noteon 02-28-2020 Urology Office/Clinic [...] nicotine dependence) 5. Anticoagulant long-term use (Z79.01: correction (current) use of anticoagulants) warfarin therapy I [...] Protein Urine Dipstick: Negative (02/28/20 08:57:00) Specific [place] Urine Dipstick: 1.020 (02/28/20 08:57:00) Urine Appearance Urine Dipstick: Clear (02/28/20 08:57:00) Urine Color Urine Dipstick: Yellow (02/28/20 08:57:00) Urobilinogen Urine Dipstick: Normal 0.2-1 EU/dl (02/28/20 08:57:00) pH Urine Dipstick: 5 (02/28/20 08:57:00) Normal [facility] Comment on above: Result Comment: Elec tronically Signed By: David DANIEL MD\.br\Date and Time Signed: 02/28/20 09:34 EST\.br\Electronically Co-Signed By: Lou Chavez MA\.br\Date and Time Co-Signed: 02/28/20 09:31 EST Reminderson 01-21-2020 Reminders - From: Mandy Bashir To: [facility] Clinical; Sent: 01/08/2020 09:45:38 EDT Show up: 01/17/2020 09:45:00 EST Subject: renal US Due Date/Time: 01/22/2020 09:45:00 EST Reminder/Recall Pt sched 01/17/20 @ 7:45amBetsy for renal US, Order faxed Show PRW, pt to be called with results Please review Renal US and call pt with results.LG From: Mandy Bashir ([facility] Clinical) To: David DANIEL MD; Sent: 01/20/2020 14:07:31 EST Show up: 01/20/2020 14:07:00 EST Subject: RE: renal US From: David DANIEL MD To: - Clinical; Sent: 01/20/2020 15:25:17 EST Show up: 01/20/2020 15:24:00 EST Subject: RE: renal US no stones. one cyst. no mass pw. Patient was notified of results.LG Normal [facility] RAD - Ultrasound Reporton RAD - Ultrasound Report [id number]#1. 00CD:127 Normal [facility] UroVysion Fish and Urine Cyt o ([facility])on 01-17-2020 UVFISH & UC Diagnosis Info [facility] Comment on above: Result Comment: A:Ur [...] on: 01/17/2020 07:53:07 Performed By: #### 1 [id number] ####[facility] [address] [place] [address] Coding Summary.on 01-08-2020 Coding Summary. CODING DATE: 01/08/2020 FINAL [facility] STATUS: Home (Routine DC) PAYOR: Medicare APC DESCRIPTION 5372 Level 2 Urology and Related Services ADMIT DX: REASON FOR VISIT DX: R31.0 Gross hematuria FINAL DX: PRINCIPAL: R31.0 Gross hematuria SECONDARY: N40.1 Benign prostatic hyperplasia with lower urinary tract symptoms R31.29 Other microscopic hematuria I10 Essential (primary) hypertension I25.10 Atherosclerotic heart disease of [place] coronary artery without angina pectoris E78.5 Hyperlipidemia, unspecified E11.9 Type 2 diabetes mellitus without complications J44.9 Chronic obstructive pulmonary disease, unspecified E66.01 Morbid (severe) obesity due to excess calories Z68.41 Body mass index [BMI]40.0-44.9, adult I49.9 Cardiac arrhythmia, unspecified 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 However, the narrative phrase printed from the coding software may appear abbreviated, or result in slightly different terminology. Coded By: Edwina Marie Date Saved: 01/08/2020 10:47 am [facility] Consent for Procedure/Surger yon 01-08-2020 Consent for Procedure/Surgery [id number]# 1.00CD:127 [facility] Discharge Instructionson Discharge Instructions [id number]# 1.00CD:127 [facility] History and Physicalon 01-07 History and Physical [id number]# 1.00CD:127 [facility] IntraOperative Documentson IntraOperative Documents [id number]# 1.00CD:127 [facility] Consent for Treatmenton 12-12 Consent for Treatment [id number] .00CD:127 [facility] Main OR Intraoperative Recor don 01-07-2020 Main OR Intraoperative Record IntraOp Document Type FTURO Summary Primary Physician: David DANIEL MD Finalized Date/Time: 01/07/20 10:17:52 Pt. Name: JORGE DAVIS/Sex: 1945 Male Med Rec #: [id number] Physician: David DANIEL MD Financial #: [id number] Pt. Type: O Room/Bed: / Admit/Disch: 01/07/20 09:23:05 - Institution: Case Times FTURO Entry 1 Patient Times In Room 01/07/20 10:00:00 Out Room 01/07/20 10:23:00 Procedure Times Start 01/07/20 10:11:00 Stop 01/07/20 10:18:00 Anesthesia Times Last Modified By: Harmony RN, JASWANTORRonda 01/07/20 10:15:32 Case Attendance FTURO Entry 1 Entry 2 Entry 3 Case Attendee MARÍA REYNOSO, David Antunez RN, CNOR, Catherine WILSON, Maday Bond Role Performed Surgeon - Primary Local Operator - Primary Scrub - Primary Time In 01/07/20 10:00:00 01/07/20 10:00:00 01/07/20 10:00:00 Time Out 01/07/20 10:23:00 01/07/20 10:23:00 01/07/20 10:23:00 Procedure CYSTOSCOPY LOCAL(.) CYSTOSCOPY LOCAL(.) CYSTOSCOPY LOCAL(.) Comments Last Modified By: Harmony RN, CNOR, Harmony RN, JASWANTOR, Harmony RN, JASWANTOR, Ronda 01/07/20 Ronda 01/07/20 Ronda 01/07/20 10:15:47 10:15:47 10:15:47 Surgical Procedures FTURO Entry 1 Procedure Description Procedure CYSTOSCOPY LOCAL Modifiers . Surgeon Description CYSTOSCOPY Primary Procedure Yes Primary Surgeon MARÍA REYNOSO, David Loaiza Start 01/07/20 10:11:00 Stop 01/07/20 10:18:00 Anesthesia [...] GERMANIA Antunez RN, Ruthann 01/07/20 10:17 Normal [facility] Main OR Preoperative Recordo n 01-07-2020 Main OR Preoperative Record Holding Area Document Type FTURO Summary Primary Physician: David DANIEL MD Finalized Date/Time: 01/07/20 10:07:43 Pt. Name: RYANJORGE/Sex: 1945 Male Med Rec #: [id number] Physician: David DANIEL MD Financial #: [id number] Pt. Type: O Room/Bed: / Admit/Disch: 01/07/20 [...] Implant, Jewelry Personal Items watch Limitations: [place] Comment: Complaints of Pain: No Skin Integrity [...] GERMANIA Antunez RN, Ruthann 01/07/20 10:07 Normal [facility] Operative Reporton 0 Operative Report [...] with antibiotic coverage, Follow up arranged. Normal [facility] Comment on above: Result Comment: Elec tronically Signed By: DANIEL MD, David R\.br\Date and Time Signed: 01/07/20 10:20 EDT Patient [...] have a fever over 100 degrees. Normal [facility] UroVysion Fish and Urine Cyt o ([facility])on 01-07-2020 [facility] Method of Extraction Voided Normal [facility] Comment on above: Performed By: #### 1 [id number] ####[facility] [address] [place] [address] [facility] Number of Jars 1 [facility] Comment on above: Performed By: #### 1 [id number] ####[facility] [address] [place] [address] [facility] Specimen Urine Normal [facility] Comment on above: Performed By: #### 1 [id number] ####[facility] [address] [place] [address] [facility] Type of Service Technical Only Normal [facility] Comment on above: Performed By: #### 1 [id number] ####[facility] [address] [place] [address] ALLIED HEALTHon 12-24-2019 ALLIED HEALTH HNO ID: [id number] Author: ERICA Ibarra (Ct) Service: Radiology Author Type: Photographer News Type: Allied Health Filed: 12/24/2019 9:54 AM [...] DATE: December 24, 2019 TIME: 9:[address] [facility] [address] PULMONARY VEIN W IVCONon 12-24-2019 [...] was employed ([employer]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 Spiral imaging [...] as dissection, intramural hematoma, or contained rupture. Safety Manager dimensions of the thoracic aorta are as [...] CT exam in 3 months is recommended. [employer] Stillman: PSCB Transcribe Date/Time: Dec 24 2019 11:12A Dictated by : SARA SIMPSON MD This examination was interpreted and the report reviewed and electronically signed by: SARA SIMPSON MD on Dec 24 2019 12:47PM EST [id number] N ACTIONABLE [facility] NURSING PROGon 12-24-2019 NURSING PROG HNO ID: [id number] Author: Arlene (Rn) CONSTANTIN Chowdhury Service: Nursing Author Type: Registered Nurse Type: Nursing Progress Note Filed: 12/24/2019 11:00 AM Note Text: Nursing Progress Note Topic of Note: Daily Note Jorge Davis [id number] Pt SR. Procedure cancelled. H/L removed from CT scan. Dr. Nelson spoke with p0t. This note was completed by: Arlene Chowdhury RN [facility] PROGRESSon 12-24-2019 PROGRESS HNO ID: [id number] Author: Ezequiel Nelson Service: Electrophysiology Author Type: Physician Type: Progress Notes Filed: 12/24/2019 10:44 AM Note Text: Scheduled for cardioversion, but in SR upon arrival. [facility] CNPNon 12-18-2019 CNPN Telephone (FVPRAD) JORGE DAVIS ([id number]) 1945 [place] Date Time Provider Department 12/18/19 SHAMA [...] He will get labs done tomorrow at [facility] Sending to procedure schedulers for cardioversion scheduling. If possible try to arrange on 12/23 at in early afternoon as he will already be here and NPO for CT scan. If not possible on that day then please schedule at [facility] with available provider at patient's convenience Shama Ibanez PA-C. Johnny Diaz 12/19/2019 10:22 AM Signed Pts calling back in regards to below. Would like a return call with questions about the procedure. can be reached at [phone], ok to leave detailed message. Please advise. [...] [I48.19] Order(s):CBC + DIFF [SQCBCDIF] Order #: [id number] FUTURE BASIC METABOLIC PNL [SQBMP] Order #: [id number] FUTURE MAGNESIUM BLD [SQMG1] Order #: [id number] FUTURE PRE-PROCEDURE AND PRE-OPERATIVE COVID [SQPOCOVD] Order #: [id number] FUTURE CARDIOVERSION, ELECTIVE, ELECTRICAL [26745IPI] Order #: [id number]: 1 Prescriptions as of 12/18/2019 Sig: [email or web address] [...] Atrial fibrillation (HCC) [I48.91] 07/08/2014 Atherosclerosis of [place] coronary artery of na*07/10/2015 Diabetes mellitus type 2, controlled, without c*07/10/2015 Atrial fibrillation, persistent (HCC) [I48.19] 07/22/2015 Paroxysmal atrial fibrillation (HCC) [I48.0] 12/04/2015 Paroxysmal atrial flutter (HCC) [I48.92] 05/30/2018 Obesity, Class III, BMI >= 40 [E66.01] 10/23/2019 Encounter Status:Closed by SHAMA IBANEZ PA-C on 12/18/19 [facility] HOSPon 12-18-2019 HOSP Patient:Jorge Davis MRN: [...] [E78.5] Atrial fibrillation (HCC) [I48.91] Atherosclerosis of [place] coronary artery of [place] heart without angina pectoris [I25.10] Diabetes mellitus [...] He will get labs done tomorrow at [facility] Sending to procedure schedulers for cardioversion scheduling. If possible try to arrange on 12/23 at in early afternoon as he will already be here and NPO for CT scan. If not possible on that day then please schedule at [facility] with available provider at patient's convenience Shama Ibanez PA-C. Johnny Diaz 12/19/2019 10:22 AM Signed Pts calling back in regards to below. Would like a return call with questions about the procedure. can be reached at [phone], ok to leave detailed message. Please advise. Laura Schneider APRN.CNP 12/19/2019 1:50 PM Signed Called . She had questions regarding where to report the day of the CT scan and DCCV. Advised to report to the main lobby and security will direct them to the appropriate locations. Laura Schneider APRN.TATA [facility] NURSING PROGon 10-24-2019 Cholesterol [Mass/Vol] HNO ID: [id number] Author: Nga BriggsRn) CONSTANTIN Garcia Service: Nursing Author Type: Registered Nurse Type: Nursing Progress Note Filed: 10/24/2019 11:13 AM Note Text: Nursing Progress Note Topic of Note: Routine Reassessment Jorge W Ryan [id number] 1110- Patient up in bed. Bilateral groins soft, tender, bilateral DP pulses palpable. Patient states no pain, is unhappy that he is not discharged yet. 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 This note was completed by: Nga Garcia RN [facility] NURSING PROG HNO ID: [id number] Author: Caridad BriggsRn) CONSTANTIN Alvarez Service: Nursing Author Type: Registered Nurse Type: Nursing Progress Note Filed: 10/24/2019 8:21 AM Note Text: Nursing Progress Note Patient Name: Jorge Davis Patient Location: [id number]/[facility]-[id number] Daily Note: 0800- Pt sitting up in bed, assessment charted per npr, IV patent, Bilat groins soft, tender,no s/s of any bleeding or infection, bilat pedal pulses palpated,call light within reach,am meds given,no pain,no issues. This note was completed by: Caridad Alvarez RN [facility] ANES POSTPROC EVALon 020 ANES POSTPROC EVAL HNO ID: [id number] Author: Murtaza Bauer Service: ? Author Type: [...] October 23, 2019 TIME: 3:04 PM CSN: [id number] [facility] ANES PRE-OPon 10-23-2019 ANES PRE-OP HNO ID: [id number] Author: Murtaza Bauer Service: ? Author Type: [...] (obstructive sleep apnea) CARDIO (+) Atherosclerosis of [place] coronary artery of [place] heart without angina pectoris (+) Atrial fibrillation [...] none. Vitals Value Taken Time BP 168/90 10/23/1931 Pulse 80 10/23/1931 Resp 18 10/23/19630 Temp 36.7 ?C (98.1 [...] October 23, 2019 TIME: 7:27 AM CSN: [id number] Normal [facility] Basic Metabolic Panlon 10-22 Anion gap [Moles/Vol] 15 mmol/L Normal 9-18 [facility] Comment on above: Performed By: #### C BC, BMP #### [place] [phone] Calcium [Mass/Vol] 9.1 mg/dL Normal 8.5-10.5 [facility] Comment on above: Performed By: #### C BC, BMP #### [address] [id number] Chloride [Moles/Vol] 103 mmol/L Normal 98-110 [facility] Comment on above: Performed By: #### C BC, BMP #### [place] [phone] CO2 [Moles/Vol] 21 mmol/L Low 23-32 [facility] Comment on above: Performed By: #### C BC, BMP #### [place] [phone] Creatinine [Mass/Vol] 0.78 mg/dL Normal 0.70-1.40 [facility] Comment on above: Performed By: #### C BC, BMP #### [place] [phone] eGFR- Amer. >60 Normal >60 [facility] Comment on above: Performed By: #### C BC, BMP #### [place] [phone] GFR/1.73 sq M predicted among non-blacks MDRD (S/P/Bld) [Vol rate/Area] mL/min/{1.73_m2} Normal >60 [facility] Comment on above: Performed By: #### C BC, BMP #### [place] [phone] Glucose [Mass/Vol] 124 mg/dL High 65-100 [facility] Comment on above: Performed By: #### C BC, BMP #### [place] [phone] Potassium [Moles/Vol] 4.1 mmol/L Normal 3.5-5.0 [facility] Comment on above: Performed By: #### C BC, BMP #### [phone] Sodium [Moles/Vol] 139 mmol/L Normal 135-146 [facility] Comment on above: Performed By: #### C BC, BMP #### [place] [id number] Urea nitrogen [Mass/Vol] 16 mg/dL Normal 10-25 [facility] Comment on above: Performed By: #### C GLORIA, BMP #### [phone] CBCon 10-23-2019 Absolute nRBC <0.01 Normal <0.01 [facility] Comment on above: Performed By: #### C BC, BMP #### [place] [phone] Erythrocyte distribution width (RBC) [Ratio] 14.7 % Normal 11.5-15.0 [facility] Comment on above: Performed By: #### C BC, BMP #### [place] [id number] Hematocrit (Bld) [Volume fraction] 46.7 % Normal 39.0-51.0 [facility] Comment on above: Performed By: #### C BC, BMP #### [place] [phone] Hemoglobin (Bld) [Mass/Vol] 14.8 g/dL Normal 13.0-17.0 [facility] Comment on above: Performed By: #### C BC, BMP #### [place] [phone] MCH (RBC) [Entitic mass] 28.7 pG Normal 26.0-34.0 [facility] Comment on above: Performed By: #### C BC, BMP #### [place] [address] MCHC (RBC) [Mass/Vol] 31.7 g/dL Normal 30.5-36.0 [facility] Comment on above: Performed By: #### C BC, BMP #### [place] [address] MCV (RBC) [Entitic vol] 90.7 fL Normal 80.0-100.0 [facility] Comment on above: Performed By: #### C BC, BMP #### [place] [address] Platelet mean volume (Bld) [Entitic vol] 10.0 fL Normal 9.0-12.7 [facility] Comment on above: Performed By: #### C BC, BMP #### [place] [address] Platelets (Bld) [#/Vol] 178 10*3/uL Normal 150-400 [facility] Comment on above: Performed By: #### C BC, BMP #### [place] [address] RBC (Bld) [#/Vol] 5.15 10*6/uL Normal 4.20-6.00 [facility] Comment on above: Performed By: #### C BC, BMP #### [place] [address] WBC (Bld) [#/Vol] 6.73 10*3/uL Normal 3.70-11.00 [facility] Comment on above: Performed By: #### C BC, BMP #### [address] [address] ECG COMPLETEon 10-23-2019 ECG COMPLETE NAME : JORGE DAVIS PID : [id number] : 1945 Gender : Male Race : ORD : [id number] Procedure Date : Oct 23 2019 14:59:44 Edit Date : Oct 23 2019 17:01:19 Diagnosis:Sinus tachycardia IVCD, consider atypical RBBB Abnormal ECG Confirmed by KATRINA KELLEY MD ([id number]) on 10/23/2019 5:01:18 PM Ventricular Rate : 101 BPM Atrial Rate : 101 BPM P-R Interval : 187 ms QRS Duration : 122 ms Q-T Interval : 386 ms QTC Calculation(Bazett) : 501 ms P Berea : 65 degrees R Berea : -32 degrees T Berea : 54 degrees Test Reason : Post-OP Location : 400 : FVEKG 6 Overread By : KATRINA KELLEY MD Edited By : KATRINA KELLEY MD Referred By : , Acquired by : IN [facility] ECG COMPLETE NAME : JORGE DAVIS PID : [id number] : 1945 Gender : Male Race : ORD : [id number] Procedure Date : Oct 23 2019 07:03:28 Edit Date : Oct 23 2019 16:59:50 Diagnosis:Atrial fibrillation Abnormal ECG Confirmed by KATRINA KELLEY MD ([id number]) on 10/23/2019 4:59:48 PM Ventricular Rate : 70 BPM Atrial Rate : 0 BPM P-R Interval : 120 ms QRS Duration : 109 ms Q-T Interval : 437 ms QTC Calculation(Bazett) : 472 ms R [place] : -21 degrees T [place]rea : 35 degrees Test Reason : Pre OP Location : 400 : FVEKG 6 Overread By : KATRINA KELLEY MD Edited By : KATRINA KELLEY MD Referred By : , Acquired by : , [facility] HISTORY PHYSICALon 0 HISTORY PHYSICAL HNO ID: [id number] Author: Ruben Denton MD Service: Cardiovascular Disease [...] he couldn,t continue to take it . [facility] decision was made to go under PVI . [facility] with A.Fib he is dyspnic, with minor [...] SURGICAL HISTORY OF minor hand surgery - ME ANESTH,TOTAL KNEE ARTHROPLASTY 2006 Right Knee - [...] October 23, 2019 TIME: 6:59 AM PAGER: [phone] CARD EP STAFF Pt seen and examined. The documented findings were individually confirmed, and the history was verified and corrected, if appropriate. I discussed the patient's management with the PA and reviewed their note. Additional Hx/summary is as follows: 74 YO male with persistent AF despite prior DCCV and dofetilide. He presents today for PVAI. Ruben Denton MD [facility] NURSING PROGon 10-23-2019 NURSING PROG HNO ID: [id number] Author: Nacho Hatfield (Rn) CONSTANTIN Mensah Service: Nursing Author Type: Registered Nurse Type: Nursing Progress Note Filed: 10/24/2019 5:41 AM Note Text: Nursing Progress Note Patient Name: Jorge Davis Patient Location: [id number]/[facility] [id number] Pt resting quietly in room. R/L groins soft and without hematoma or bleeding. (Small pink drainage left groin noted). DP pulses palpable. No pain or complaints. ENGINE TEST CELL TECHNICIAN cough noted. Cepacol ineffective. Obtained Tessalon perles order. Will administer when available from pharmacy. Pt received home lasix dose at ~1930 from last shift (will remove moses soon.) Tele SR. Will monitor. 2226 Moses removed ~2129. Tolerated well. Pt oob with assistance x1, [...] note was completed by: Nacho Mensah RN [facility] NURSING PROG HNO ID: [id number] Author: Marybeth BriggsRn) CONSTANTIN Parr Service: Nursing Author Type: Registered Nurse Type: Nursing Progress Note Filed: 10/23/2019 4:47 PM Note Text: Nursing Progress Note Topic of Note: Daily Note Jorge Davis [id number] 1630 pt. up to floor via bed [...] note was completed by: Marybeth Parr RN [facility] NURSING PROG HNO ID: [id number] Author: Celeste Andrews) CONSTANTIN Fay Service: Nursing [...] R.N. 1621 Pt. transported via bed to [facility] 308 with all personal belongings. Normal [facility] Type and Screenon 10-23-2019 ABO/RH(D) Positive Normal [facility] Comment on above: Performed By: #### T SCR ####[place] [id number] Urinalysison 10-23-2019 Bilirubin, Urine Negative Normal Negative [facility] Comment on above: Performed By: #### U A #### [phone] Clarity (U) Clear Normal Clear [facility] Comment on above: Performed By: #### U A #### [phone] Color (U) Light Yellow Critically abnormal Yellow [facility] Comment on above: Performed By: #### U A #### [phone] Comments SEE COMMENT Normal [facility] Comment on above: Result Comment: Micr oscopic not warranted Performed By: #### U A #### [phone] Glucose Ql (U) Negative Normal [facility] Comment on above: Performed By: #### U A #### [address] Hemoglobin/Blood,Ur Negative Normal Negative [facility] Comment on above: Performed By: #### U A #### [place] [phone] Ketones Ql (U) Negative Normal Negative [facility] Comment on above: Performed By: #### U A #### [place] [phone] Leukest Negative Normal [facility] Comment on above: Performed By: #### U A #### [phone] Nitrite Ql (U) Negative [facility] Comment on above: Performed By: #### U A #### [address] pH (Bld) 6.5 Normal 5.0-8.0 [facility] Comment on above: Performed By: #### U A #### [place] [phone] Protein (U) [Mass/Vol] Negative Normal [facility] Comment on above: Performed By: #### U A #### [address] Specific [place], Ur 1.015 Normal 1.005-1.030 [facility] Comment on above: Performed By: #### U A #### [place] [id number] Urobilinogen Qn (U) Negative Normal Negative [facility] Comment on above: Performed By: #### U A #### [place] [phone] Lab Reportson 10-11-2019 Lab Reports [id number]. [id number] Normal [facility] Confirm Blood Typeon 020 ABO/RH(D) Positive Normal [facility] Comment on above: Performed By: #### C ONABO ####[facility] [place], [place] [id number] HOSPon 09-18-2019 HOSP Patient:Jorge Davis MRN: Height:5' [...] [E78.5] Atrial fibrillation (HCC) [I48.91] Atherosclerosis of [place] coronary artery of [place] heart without angina pectoris [I25.10] Diabetes mellitus [...] Notes (CARD EPS MAIN): Jessika Villegas [facility] 10/22/2019 1:11 PM Signed October 22, 2019 1:10 PM Patient Name: Jorge Davis [id number] Contact Information: [phone] (home) [phone] (cell) Reason for Call: Patient scheduled for PVI ablation tomorrow at [place] - what are his instructions regarding his eliquis ? Physician: Ruben Denton MD, RN, RN 10/22/2019 4:[address] Thomas instructions available in [facility] patient advised to hold Eliquis the morning of his procedure. HE stated understanding. Carmelina Bender RN Progress Notes (CARD EPS MAIN): Jessika Villegas [facility] 10/14/2019 3:44 PM Signed October 14, 2019 3:43 PM Patient Name: Jorge Davis [id number] Contact Information: [phone] (home) [phone] (cell) Last visit with EP Provider: 04/19/2019 Reason for Call: Received partially completed application for Marqeta with documentation from patient; gave to nurse to complete physician section Physician: Ruben Denton MD, RN, RN 10/16/2019 9:51 AM Signed Completed and returned to [facility]. Usha Bonilla RN [facility] NURSING PROGon 09-18-2019 NURSING PROG HNO ID: [id number] Author: Arlene (Rn) CONSTANTIN Chowdhury Service: Nursing Author Type: Registered Nurse Type: Nursing Progress Note Filed: 09/18/2019 9:57 AM Note Text: Nursing Progress Note Topic of Note: Daily Note Jorge Davis [id number] Pre op done. INR 4.3. Repeat in [...] note was completed by: Arlene Chowdhury RN [facility] Protimeon 09-18-2019 PT Coag (PPP) [Time] 51.3 s High 9.7-13.0 [facility] Comment on above: Performed By: #### P T #### [place] [address] PT Coag (PPP) [Time] 5.0 s High 0.9-1.3 [facility] Comment on above: Result Comment: Ashlie min K Antagonist (VKA) Therapeutic Range: INR 2 to 3 (Target INR of 2.5) Note: For patients treated with VKA drugs, such as warfarin, the [place] [employer] 2012 Guideline recommends [...] Chest 2012, 141:7S-47S Karen RA, et al. JACC 2017, 70: 252-289 Performed By: #### P T #### [facility] [address] [place] [id number] Type and Screenon 09-18-2019 ABO/RH(D) Positive Normal [facility] Comment on above: Performed By: #### T SCR ####[place] [id number] [place], [place] [phone] HOSPon 06-17-2019 HOSP Patient:Jorge Davis MRN: Height:5' [...] [E78.5] Atrial fibrillation (HCC) [I48.91] Atherosclerosis of [place] coronary artery of [place] heart without angina pectoris [I25.10] Diabetes mellitus type 2, controlled, without complications (HCC) [E11.9] Persistent atrial fibrillation (HCC) [I48.19] Paroxysmal atrial fibrillation (HCC) [I48.0] Paroxysmal atrial flutter (HCC) [I48.92] Allergies: No Known Allergies Date Verified:09/11/19 Lab Values Lab Value Units Date High Low POTA* 4.3 mmol/L 09/11/2019 5.1 3.7 FISH* 50.1 % 09/11/2019 51.0 39.0 Progress Notes ([facility]): Nga Umanzor RT 09/11/2019 3:23 PM Signed [...] 11, 2019 3:22 PM Progress Notes (CARD [facility] RE[facility]): Venkat Evans MD 09/11/2019 2:16 PM Signed [place]: [place] [id number] [facility] [address] Primary Care Physician: Declan Swanson MD Jorge Davis is a 74 year old male that presents today for evaluation of NON OBS Coronary artery disease involving [place] coronary artery of [place] heart without angina pectoris Paroxysmal A-fib (HCC) [...] this pm 2. Coronary artery disease involving [place] coronary artery of [place] heart without angina pectoris - ICD9: 414.01, [...] ABNORMAL ECG Confirmed by NIRMAL NEUMANN MD ([id number]) on 05/22/2019 9:24:01 PM ? Ventricular Rate : 61 ?BPM Atrial Rate : 174 ?BPM QRS Duration : 100 ?ms Q-T Interval : 454 ?ms QTC Calculation(Bazett) : 457 ?ms R Berea : 0 ?degrees T Berea : 49 ?degrees PAST MEDICAL HISTORY Diagnosis [...] SURGICAL HISTORY OF minor hand surgery - ME ANESTH,TOTAL KNEE ARTHROPLASTY 2006 Right Knee - [...] 69 Venkat Evans MD Previous Version Normal [facility] Vital Signs Date Time Vital Sign Value Performing Clinician Facility 06-12-2024 09:07-0400 Body height 167.64 cm Declan Ball DO Work Phone: [facility] 06-12-2024 09:07-0400 Body mass index (BMI) [Ratio] 43.4 kg/m2 Declan Ball DO Work Phone: [facility] 06-12-2024 09:07-0400 Body weight 122.01 kg Declan Ball DO Work Phone: [facility] 06-12-2024 09:07-0400 Diastolic blood pressure 73 mm[Hg] Declan Ball DO Work Phone: [facility] 06-12-2024 09:07-0400 Heart rate 69 /min Declan Ball DO Work Phone: [facility] 06-12-2024 09:07-0400 Respiratory rate 12 /min Declan Ball DO Work Phone: [facility] 06-12-2024 09:07-0400 SaO2% (BldA) [Mass fraction] 98 % Declan Ball DO Work Phone: [facility] 06-12-2024 09:07-0400 Systolic blood pressure 146 mm[Hg] Declan Ball DO Work Phone: [facility] 05-07-2024 10:06-0500 Body height 167.64 cm Declan Ball DO Work Phone: [facility] 05-07-2024 10:06-0500 Body mass index (BMI) [Ratio] 41.6 kg/m2 Declan Ball DO Work Phone: [facility] 05-07-2024 10:06-0500 Body weight 117.14 kg Declan Ball DO Work Phone: [facility] 05-07-2024 10:06-0500 Diastolic blood pressure 80 mm[Hg] Declan Ball DO Work Phone: [facility] 05-07-2024 10:06-0500 Heart rate 82 /min Declan Ball DO Work Phone: [facility] 05-07-2024 10:06-0500 Respiratory rate 12 /min Declan Ball DO Work Phone: [facility] 05-07-2024 10:06-0500 SaO2% (BldA) [Mass fraction] 98 % Declan Ball DO Work Phone: [facility] 05-07-2024 10:06-0500 Systolic blood pressure 127 mm[Hg] Declan Ball DO Work Phone: [facility] 02-22-2024 09:59-0500 Body height 167.64 cm Declan Ball DO Work Phone: [facility] 02-22-2024 09:59-0500 Body mass index (BMI) [Ratio] 42.1 kg/m2 Declan Ball DO Work Phone: [facility] 02-22-2024 09:59-0500 Body weight 118.38 kg Declan Ball DO Work Phone: [facility] 02-22-2024 09:59-0500 Diastolic blood pressure 62 mm[Hg] Declan Ball DO Work Phone: [facility] 02-22-2024 09:59-0500 Heart rate 62 /min Declan Ball DO Work Phone: [facility] 02-22-2024 09:59-0500 SaO2% (BldA) [Mass fraction] 98 % Declan Ball DO Work Phone: [facility] 02-22-2024 09:59-0500 Systolic blood pressure 128 mm[Hg] Declan Ball DO Work Phone: [facility] 02-13-2024 12:58-0500 Body mass index (BMI) [Ratio] 44.1 kg/m2 Alix Barrios APRN.BEND UP Work Phone: [facility] 02-13-2024 12:58-0500 Body weight 120.2 kg Alix Aranavin LAY UP OPERATOR.BEND UP Work Phone: [facility] 02-13-2024 12:58-0500 Diastolic blood pressure 68 mm[Hg] Alix Aranavin LAY UP OPERATOR.BEND UP Work Phone: [facility] 02-13-2024 12:58-0500 Heart rate 66 /min Alix Aranakarlat LAY UP OPERATOR.BEND UP Work Phone: [facility] 02-13-2024 12:58-0500 SaO2% (BldA) [Mass fraction] 96 % Alix Aranavin LAY UP OPERATOR.BEND UP Work Phone: [facility] 02-13-2024 12:58-0500 Systolic blood pressure 134 mm[Hg] Alix Aranavin LAY UP OPERATOR.BEND UP Work Phone: [facility] 12-18-2023 10:49-0400 Body height 167.64 cm [facility] 12-18-2023 10:49-0400 Body mass index (BMI) [Ratio] 41.6 kg/m2 [facility] 12-18-2023 10:49-0400 Body weight 117.02 kg [facility] 12-18-2023 10:49-0400 Diastolic blood pressure 83 mm[Hg] [facility] 12-18-2023 10:49-0400 Heart rate 76 /min [facility] 12-18-2023 10:49-0400 Respiratory rate 76 /min [facility] 12-18-2023 10:49-0400 Systolic blood pressure 151 mm[Hg] [facility] 12-08-2023 11:03-0400 Body mass index (BMI) [Ratio] 43.43 kg/m2 Venkat Emanuel MD Work Phone: [facility] 12-08-2023 11:03-0400 Body weight 118.39 kg Venkat Emanuel MD Work Phone: [facility] 12-08-2023 11:03-0400 Diastolic blood pressure 80 mm[Hg] Venkat Emanuel MD Work Phone: [facility] 12-08-2023 11:03-0400 Heart rate 88 /min Venkat Emanuel MD Work Phone: [facility] 12-08-2023 11:03-0400 SaO2% (BldA) [Mass fraction] 97 % Venkat Emanuel MD Work Phone: [facility] 12-08-2023 11:03-0400 Systolic blood pressure 142 mm[Hg] Venkat Emanuel MD Work Phone: [facility] 08-21-2023 11:37-0400 Body height 167.64 cm [facility] 08-21-2023 11:37-0400 Body mass index (BMI) [Ratio] 41.3 kg/m2 [facility] 08-21-2023 11:37-0400 Body weight 116.28 kg [facility] 08-21-2023 11:37-0400 Diastolic blood pressure 77 mm[Hg] [facility] 08-21-2023 11:37-0400 Heart rate 85 /min [facility] 08-21-2023 11:37-0400 Respiratory rate 12 /min [facility] 08-21-2023 11:37-0400 Systolic blood pressure 128 mm[Hg] [facility] 08-09-2023 13:44-0400 Body height 167.64 cm [facility] 08-09-2023 13:44-0400 Body mass index (BMI) [Ratio] 42.1 kg/m2 [facility] 08-09-2023 13:44-0400 Body weight 118.38 kg [facility] 08-09-2023 13:44-0400 Diastolic blood pressure 76 mm[Hg] [facility] 08-09-2023 13:44-0400 Heart rate 85 /min [facility] 08-09-2023 13:44-0400 Respiratory rate 16 /min [facility] 08-09-2023 13:44-0400 Systolic blood pressure 136 mm[Hg] [facility] 07-04-2023 08:58-0400 Body height 165.1 cm Shama Ibanez PA-C Work Phone: [facility] 07-04-2023 08:58-0400 Body mass index (BMI) [Ratio] 44.5 kg/m2 Sahma Ibanez PA-C Work Phone: [facility] 07-04-2023 08:58-0400 Body weight 121.3 kg Shama Ibanez PA-C Work Phone: [facility] 07-04-2023 08:58-0400 Diastolic blood pressure 78 mm[Hg] Shama Ibanez PA-C Work Phone: [facility] 07-04-2023 08:58-0400 Heart rate 80 /min Shama Ibanez PA-C Work Phone: [facility] 07-04-2023 08:58-0400 Systolic blood pressure 146 mm[Hg] Shama Ibanez PA-C Work Phone: [facility] 06-05-2023 13:48-0400 Body weight 120.2 kg Venkat Emanuel MD Work Phone: [facility] 06-05-2023 13:48-0400 Diastolic blood pressure 78 mm[Hg] Venkat Emanuel MD Work Phone: [facility] 06-05-2023 13:48-0400 Heart rate 74 /min Venkat Emanuel MD Work Phone: [facility] 06-05-2023 13:48-0400 Systolic blood pressure 124 mm[Hg] Venkat Emanuel MD Work Phone: [facility] 03-23-2023 11:00-0500 Body height 167.64 cm [facility] Other 03-23-2023 11:00-0500 Body mass index (BMI) [Ratio] 43.15 kg/m2 Declan Ball Other [facility] Other 03-23-2023 11:00-0500 Body weight 121.29 kg Declan Ball Other [facility] Other 03-23-2023 11:00-0500 Diastolic blood pressure 89 mm[Hg] Declan Ball Other [facility] Other 03-23-2023 11:00-0500 Systolic blood pressure 142 mm[Hg] Declan Ball Other [facility] Other 01-03-2023 11:45-0400 Body height 167.64 cm Declan Ball Other [facility] Other 01-03-2023 11:45-0400 Body mass index (BMI) [Ratio] 42.57 kg/m2 Declan Ball Other [facility] Other 01-03-2023 11:45-0400 Body weight 119.66 kg Declan Ball Other [facility] Other 01-03-2023 11:45-0400 Diastolic blood pressure 78 mm[Hg] Declan Ball Other [facility] Other 01-03-2023 11:45-0400 Respiratory rate 16 /min Declan Ball Other [facility] Other 01-03-2023 11:45-0400 Systolic blood pressure 128 mm[Hg] Declan Ball Other [facility] Other 12-14-2022 11:30-0400 Body height 167.64 cm Declan Ball Other [facility] Other 12-14-2022 11:30-0400 Body mass index (BMI) [Ratio] 43.61 kg/m2 Declan Ball Other [facility] Other 12-14-2022 11:30-0400 Body weight 122.56 kg Declan Ball Other [facility] [employer] Other 12-14-2022 11:30-0400 Diastolic blood pressure 86 mm[Hg] Declan Ball Other [facility] [employer] Other 12-14-2022 11:30-0400 Respiratory rate 12 /min Declan Ball Other [facility] [employer] Other 12-14-2022 11:30-0400 Systolic blood pressure 141 mm[Hg] Declan Ball Other [facility] [employer] Other 12-13-2022 09:58-0400 Diastolic blood pressure 70 mm[Hg] DO Declan Ball Work Phone: [facility] 12-13-2022 09:58-0400 Heart rate 56 /min DO Declan Ball Work Phone: [facility] 12-13-2022 09:58-0400 Respiratory rate 16 /min DO Declan Ball Work Phone: [facility] 12-13-2022 09:58-0400 SaO2% (BldA) [Mass fraction] 95 % DO Declan Ball Work Phone: [facility] 12-13-2022 09:58-0400 Systolic blood pressure 149 mm[Hg] DO Declan Ball Work Phone: [facility] 12-13-2022 09:15-0400 Inhaled oxygen flow rate 3 L/min DO Declan Ball Work Phone: [facility] 12-13-2022 08:53-0400 Body height 157.48 cm DO Declan Ball Work Phone: [facility] 12-13-2022 08:53-0400 Body weight 120.2 kg DO Declan Ball Work Phone: [facility] 11-04-2022 14:45-0400 Body height 167.64 cm Declan Ball Other [facility] Other 11-04-2022 14:45-0400 Body mass index (BMI) [Ratio] 43.64 kg/m2 Declan Ball Other [facility] Other 11-04-2022 14:45-0400 Body weight 122.65 kg Declan Ball Other [facility] Other 11-04-2022 14:45-0400 Diastolic blood pressure 87 mm[Hg] Declan Ball Other [facility] Other 11-04-2022 14:45-0400 Respiratory rate 16 /min Declan Ball Other [facility] Other 11-04-2022 14:45-0400 Systolic blood pressure 148 mm[Hg] Declan Ball Other [facility] Other 10-13-2022 11:00-0400 Body height 167.64 cm Declan Ball Other [facility] Other 10-13-2022 11:00-0400 Body mass index (BMI) [Ratio] 43.41 kg/m2 Declan Ball Other [facility] Other 10-13-2022 11:00-0400 Body weight 122.02 kg Declan Ball Other [facility] Other 10-13-2022 11:00-0400 Diastolic blood pressure 75 mm[Hg] Declan Ball Other [facility] Other 10-13-2022 11:00-0400 Respiratory rate 16 /min Declan Ball Other [facility] Other 10-13-2022 11:00-0400 Systolic blood pressure 132 mm[Hg] Declan Ball Other [facility] Other 09-15-2022 09:15-0400 Body height 167.64 cm Declan Ball Other [facility] Other 09-15-2022 09:15-0400 Body mass index (BMI) [Ratio] 43.22 kg/m2 Declan Ball Other [facility] Other 09-15-2022 09:15-0400 Body weight 121.47 kg Declan Ball Other [facility] Other 09-15-2022 09:15-0400 Diastolic blood pressure 81 mm[Hg] Declan Ball Other [facility] Other 09-15-2022 09:15-0400 Respiratory rate 12 /min Declan Ball Other [facility] Other 09-15-2022 09:15-0400 Systolic blood pressure 139 mm[Hg] Declan Ball Other [facility] Other 08-16-2022 11:30-0400 Body height 167.64 cm Declan Ball Other [facility] Other 08-16-2022 11:30-0400 Body mass index (BMI) [Ratio] 43.19 kg/m2 Declan Ball Other [facility] Other 08-16-2022 11:30-0400 Body weight 121.38 kg Declan Ball Other [facility] Other 08-16-2022 11:30-0400 Diastolic blood pressure 73 mm[Hg] Declan Ball Other [facility] Other 08-16-2022 11:30-0400 Respiratory rate 12 /min Declan Ball Other [facility] Other 08-16-2022 11:30-0400 Systolic blood pressure 124 mm[Hg] Declan Ball Other [facility] Other 06-24-2022 14:14-0400 Body height 165.1 cm Ruben Denton MD Work Phone: [facility] 06-24-2022 14:14-0400 Body weight 122.02 kg Ruben Denton MD Work Phone: [facility] 06-24-2022 14:14-0400 Diastolic blood pressure 82 mm[Hg] Ruben Denton MD Work Phone: [facility] 06-24-2022 14:14-0400 Heart rate 69 /min Ruben Denton MD Work Phone: [facility] 06-24-2022 14:14-0400 Systolic blood pressure 155 mm[Hg] Ruben Denton MD Work Phone: [facility] 05-16-2022 11:30-0500 Body height 167.64 cm Declan Ball Other [facility] Other 05-16-2022 11:30-0500 Body mass index (BMI) [Ratio] 44.87 kg/m2 Declan Ball Other [facility] Other 05-16-2022 11:30-0500 Body weight 126.1 kg Declan Ball Other [facility] Other 05-16-2022 11:30-0500 Diastolic blood pressure 82 mm[Hg] Declan Ball Other [facility] Other 05-16-2022 11:30-0500 Respiratory rate 12 /min Declan Ball Other [facility] Other 05-16-2022 11:30-0500 SaO2% (BldA) [Mass fraction] 97 % Declan Ball Other [facility] Other 05-16-2022 11:30-0500 Systolic blood pressure 122 mm[Hg] Declan Ball Other [facility] Other 03-22-2022 09:30-0500 Body height 167.64 cm Declan Ball Other [facility] Other 03-22-2022 09:30-0500 Body mass index (BMI) [Ratio] 44.41 kg/m2 Declan Ball Other [facility] Other 03-22-2022 09:30-0500 Body weight 124.83 kg Declan Ball Other [facility] Other 03-22-2022 09:30-0500 Diastolic blood pressure 82 mm[Hg] Declan Ball Other [facility] Other 03-22-2022 09:30-0500 Respiratory rate 20 /min Declan Ball Other [facility] Other 03-22-2022 09:30-0500 Systolic blood pressure 122 mm[Hg] Declan Ball Other [facility] Other 12-31-2021 13:06-0400 Body weight 122.02 kg Venkat Emanuel MD Work Phone: [facility] 12-31-2021 13:06-0400 Diastolic blood pressure 70 mm[Hg] Venkat Emanuel MD Work Phone: [facility] 12-31-2021 13:06-0400 Heart rate 84 /min Venkat Emanuel MD Work Phone: [facility] 12-31-2021 13:06-0400 SaO2% (BldA) [Mass fraction] 97 % Venkat Emanuel MD Work Phone: [facility] 12-31-2021 13:06-0400 Systolic blood pressure 110 mm[Hg] Venkat Emanuel MD Work Phone: [facility] 06-25-2021 13:14-0400 Body height 165.1 cm Ruben Denton MD Work Phone: [facility] 06-25-2021 13:14-0400 Body weight 124.74 kg Ruben Denton MD Work Phone: [facility] 06-25-2021 13:14-0400 Diastolic blood pressure 80 mm[Hg] Ruben Denton MD Work Phone: [facility] 06-25-2021 13:14-0400 Heart rate 69 /min Ruben Denton MD Work Phone: [facility] 06-25-2021 13:14-0400 Systolic blood pressure 132 mm[Hg] Ruben Denton MD Work Phone: [facility] 05-20-2021 10:00-0500 Body height 167.64 cm Bruce Shine II Other [facility] Other 05-20-2021 10:00-0500 Body mass index (BMI) [Ratio] 43.9 kg/m2 Bruce Shine II Other [facility] Other 05-20-2021 10:00-0500 Body weight 123.38 kg Bruce Shine II Other [facility] Other Encounters Encounter Date Encounter Type Care Provider Facility Start: 06-12-2024 End: 06-12-2024 ambulatory Declan Swanson DO Work Phone: [facility] Work Phone: Start: 06-12-2024 End: 06-12-2024 Patient encounter procedure Declan Swanson DO Work Phone: [facility] Work Phone: Start: 05-07-2024 End: 05-07-2024 ambulatory Declan Ball DO Work Phone: [facility] Work Phone: Start: 05-07-2024 End: 05-07-2024 Patient encounter procedure Declan Ball DO Work Phone: [facility] Work Phone: Start: 04-23-2024 End: 04-23-2024 ambulatory Declan Ball DO Work Phone: [facility] Work Phone: Start: 04-23-2024 End: 04-23-2024 Patient encounter procedure Declan Ball DO Work Phone: [facility] Work Phone: Start: 04-03-2024 End: 04-05-2024 Telephone encounter Ruben Denton MD Work Phone: Cardiology Comment on above: Results (INR) Start: 02-22-2024 End: 02-22-2024 Patient encounter procedure Declan Swanson DO Work Phone: [facility] Work Phone: Start: 02-21-2024 End: 02-21-2024 Telephone encounter Ruben Denton MD Work Phone: Cardiology Comment on above: Results (labs) Start: 02-21-2024 Non-patient / Non-visit Benjam in Ball DO Work Phone: [facility] Phys[facility] Work Phone: Start: 02-13-2024 End: 02-13-2024 Patient encounter procedure Alix Barrois APRN.[facility] Work Phone: Cardiology Comment on above: Primary hypertension (Primary Dx); Atherosclerosis of [place] coronary artery of [place] heart without angina pectoris; Atrial fibrillation, persistent (HCC); Chronic diastolic heart failure (HCC); Mixed hyperlipidemia Start: 02-13-2024 Non-patient / Non-visit Benjam in Teo Work Phone: [facility] Work Phone: Start: 02-13-2024 End: 02-13-2024 ambulatory [facility] Start: 02-07-2024 End: 02-09-2024 Telephone encounter Ruben Denton MD Work Phone: Cardiology Comment on above: Results Start: 01-24-2024 End: 01-24-2024 Telephone encounter Ruben Denton MD Work Phone: Cardiology Start: 12-19-2023 End: 12-19-2023 Telephone encounter Venkat Evans MD Work Phone: Cardiology Start: 12-18-2023 End: 12-18-2023 ambulatory [facility] Work Phone: Start: 12-18-2023 End: 12-18-2023 Patient encounter procedure [facility] Physician [facility] Work Phone: Start: 12-18-2023 Non-patient / Non-visit [facility] Physician [facility] Work Phone: Start: 12-12-2023 End: 12-12-2023 Telephone encounter Ruben Denton MD Work Phone: Cardiology Comment on above: Received Outside [facility] Records Start: 12-08-2023 Non-patient / Non-visit [facility] Work Phone: Start: 12-08-2023 End: 12-08-2023 ambulatory [facility] Start: 12-08-2023 End: 12-08-2023 Office outpatient visit 25 minutes Venkat Evans MD Work Phone: Cardiology Comment on above: Chronic diastolic he art failure (HCC) (Primary Dx); Atrial fibrillation, persistent (HCC); Obesity, Class III, 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); Mixed hyperlipidemia; Coronary artery disease involving [place] coronary artery of [place] heart without angina pectoris Start: 12-08-2023 End: 12-08-2023 ambulatory DECLAN SWANSON Facility:[facility] Start: 12-07-2023 Non-patient / Non-visit [facility] Work Phone: Start: 12-06-2023 Non-patient / Non-visit [facility] Work Phone: Start: 12-05-2023 Non-patient / Non-visit [facility] Work Phone: Start: 11-15-2023 End: 11-15-2023 Telephone encounter Ruben Denton MD Work Phone: Cardiology Comment on above: Received Outside Med ical Records Start: 10-03-2023 End: 10-03-2023 ambulatory JOHN CHURCHILL Not Available Start: 09-19-2023 Telephone encounter Ruben murillo MD Work Phone: Cardiology Comment on above: Received Outside Med ical Records Start: 08-31-2023 End: 08-31-2023 ambulatory JARROD PARSONSJOANNE Not Available Start: 08-23-2023 End: 08-23-2023 ambulatory JOHN CHURCHILL Not Available Start: 08-22-2023 Telephone encounter Ruben murillo MD Work Phone: Cardiology Comment on above: Received Outside Med ical Records Start: 08-21-2023 End: 08-21-2023 ambulatory [facility] Work Phone: Start: 08-21-2023 End: 08-21-2023 Patient encounter procedure [facility] Work Phone: Start: 08-09-2023 End: 08-09-2023 ambulatory [facility] Work Phone: Start: 08-09-2023 End: 08-09-2023 Patient encounter procedure [facility] Work Phone: Start: 07-25-2023 Telephone encounter Ruben murillo MD Work Phone: Cardiology Comment on above: Received Outside Med ical Records (INR) Start: 07-04-2023 End: 07-04-2023 ambulatory DECLAN SWANSON Facility:[facility] Start: 07-04-2023 End: 07-04-2023 Patient encounter procedure Shama Ibanez PA-C Work Phone: Cardiology Comment on above: Atrial fibrillation, persistent (HCC) (Primary Dx); S/P ablation of atrial fibrillation; On continuous oral anticoagulation Start: 06-27-2023 Telephone encounter Ruben murillo MD Work Phone: Cardiology Comment on above: Received Outside Med ical Records Start: 06-23-2023 End: 06-23-2023 ambulatory [facility] Work Phone: Start: 06-23-2023 End: 06-23-2023 Patient encounter procedure [facility] Work Phone: Start: 06-20-2023 End: 06-20-2023 ambulatory JARROD Hatfield IMANI Not Available Start: 06-05-2023 End: 06-05-2023 ambulatory DECLAN SWANSON Facility:[facility] Start: 06-05-2023 End: 06-05-2023 Patient encounter procedure [...] 03-23-2023 End: 03-23-2023 ambulatory Declan Swanson Other [facility] Other Start: 03-23-2023 Office outpatient vi sit 15 minutes Declan Swanson [facility] Start: 03-10-2023 End: 03-10-2023 ambulatory [...] 01-03-2023 End: 01-03-2023 ambulatory Declan Swanson Other [facility] Other Start: 01-03-2023 Office outpatient vi sit 15 minutes Declan Swanson [facility] Start: 01-03-2023 Telephone encounter Declan Swanson [facility] Start: 01-02-2023 End: 01-02-2023 ambulatory Declan Swanson Other [facility] Other Start: 01-02-2023 Office outpatient vi sit 15 minutes Declan Swanson [facility] Start: 12-23-2022 Telephone encounter Ruben murillo MD Work Phone: Cardiology Comment on above: Received Outside Med ical Records Start: 12-20-2022 End: 12-20-2022 ambulatory Ruben Celis Other [facility] Other Start: 12-20-2022 Office outpatient vi sit 15 minutes Ruben Celis [facility] Start: 12-14-2022 End: 12-14-2022 ambulatory Declan Swanson Other [facility] Other Start: 12-14-2022 Office outpatient vi sit 25 minutes Declan Ball [facility] Start: 12-13-2022 (Procedure) Short Ruben Celis [facility] Start: 12-13-2022 End: 12-13-2022 Admission to same day surgery center DO Declan Swanson Work Phone: [facility] Work Phone: Start: 12-13-2022 End: 12-13-2022 ambulatory DO Declan Swanson Work Phone: [facility] Work Phone: Start: 11-24-2022 End: 11-24-2022 Patient encounter procedure DO Declan Swanson Work Phone: [facility] [address] Work Phone: Start: 11-24-2022 End: 11-24-2022 ambulatory DO Declan Swanson Work Phone: [facility] Work Phone: Start: 11-24-2022 Telephone encounter Declan Swanson [facility] Start: 11-04-2022 End: 11-04-2022 ambulatory Declan Swanson Other [place] [facility] Other Start: 11-04-2022 Office outpatient vi sit 15 minutes Declan Ball [facility] Start: 11-04-2022 Telephone encounter Declan Swanson [facility] Start: 10-28-2022 Telephone encounter Ruben murillo MD Work Phone: Cardiology Comment on above: Received Outside Med ical Records Start: 10-26-2022 End: 10-26-2022 ambulatory Ruben Celis Other [facility] Other Start: 10-26-2022 Office outpatient vi sit 25 minutes Ruben Celis [facility] Start: 10-24-2022 End: 10-24-2022 ambulatory Declan Swanson Other [facility] Other Start: 10-24-2022 Telephone encounter Declan Swanson [facility] Start: 10-13-2022 End: 10-13-2022 ambulatory Declan Swanson Other [facility] Other Start: 10-13-2022 Office outpatient vi sit 15 minutes Declan Ball [facility] Start: 10-13-2022 Telephone encounter Ruben murillo MD Work Phone: Cardiology Comment on above: Received Outside Med ical Records Start: 10-12-2022 Office outpatient vi sit 25 minutes Bruce Shine II [facility] Start: 10-12-2022 End: 10-12-2022 ambulatory DO Declan Swanson Work Phone: [facility] Work Phone: Start: 10-12-2022 End: 10-12-2022 Patient encounter procedure DO Declan Swanson Work Phone: [facility] Start: 09-16-2022 Telephone encounter Ruben murillo MD Work Phone: Cardiology Comment on above: Received Outside Med ical Records (INR Report) Start: 09-15-2022 End: 09-15-2022 ambulatory Declan Swanson Other [facility] Other Start: 09-15-2022 Office outpatient vi sit 15 minutes Declan Swanson [facility] Start: 09-07-2022 Telephone encounter Venkat gomez MD Work Phone: Cardiology Comment on above: Results Start: 09-01-2022 Telephone encounter Ruben murillo MD Work Phone: Cardiology Comment on above: Received Outside Med ical Records Start: 08-31-2022 End: 08-31-2022 ambulatory Declan Swanson Other [facility] Other Start: 08-31-2022 Telephone encounter Declan Swanson [facility] Start: 08-29-2022 End: 08-29-2022 ambulatory Declan Swanson Other [facility] Other Start: 08-29-2022 Telephone encounter Declan BRYAN [facility] Start: 08-16-2022 End: 08-16-2022 ambulatory Declan Swanson Other [facility] Other Start: 08-16-2022 Patient encounter procedure Declan Swanson [facility] Start: 08-16-2022 Telephone encounter Declan BRYAN [facility] Start: 07-21-2022 Telephone encounter Ruben murillo MD Work Phone: Cardiology Comment on above: Received Outside Med ical Records Start: 07-14-2022 Telephone encounter Venkat gomez MD Work Phone: Cardiology Comment on above: Results Start: 07-11-2022 End: 08-10-2022 ambulatory PIERRE [employer] JOSE ALBERTO Facility: Start: 06-27-2022 End: 06-27-2022 ambulatory Bruce Shine II Other [facility] Other Start: 06-27-2022 Telephone encounter Ruben murillo [...] Class III, BMI >= 40; Atherosclerosis of [place] coronary artery of [place] heart without angina pectoris Start: 06-23-2022 Telephone encounter Ruben murillo MD Work Phone: Cardiology Comment on above: Received Outside Med ical Records Start: 06-13-2022 End: 07-08-2022 ambulatory SHAIKH Julianne MORALES Facility:[facility] Start: 05-27-2022 Telephone encounter Ruben murillo MD Work Phone: Cardiology Comment on above: Received Outside Med ical Records Start: 05-16-2022 End: 05-17-[address] DECLAN SWANSON [facility] Other Start: 05-16-2022 Office outpatient vi sit 25 minutes Declan Swanson [facility] Start: 05-11-2022 End: 06-10-[address] DECLAN SWANSON Facility:[facility] Start: 04-27-2022 End: 04-27-2022 ambulatory Declan Swanson Other [facility] Other Start: 04-27-2022 Telephone encounter Declan Swanson [facility] Start: 04-13-2022 End: 05-11-[address] DECLAN SWANSON Facility:[facility] Start: 03-22-2022 End: 03-22-2022 ambulatory Declan Swanson Other [facility] Other Start: 03-22-2022 Office outpatient vi sit 15 minutes Declan Swanson [facility] Start: 03-22-2022 Telephone encounter Declan Swanson [facility] Start: 03-21-2022 End: 03-21-2022 ambulatory Declan Swanson Other [facility] Other Start: 03-21-2022 Telephone encounter Declan Swanson [...] SWANSON Facility:[facility] Start: 02-10-2022 End: 03-13-2022 ambulatory PIERRE H FAWWAD Facility:[facility] Start: 02-01-2022 Telephone encounter Ruben murillo MD Work Phone: Cardiology Comment on above: Received Outside Med ical Records Start: 01-20-2022 Telephone encounter Jarrod powers MD Work Phone: Cardiology Comment on above: Received Outside Med ical Records Start: 01-18-2022 Telephone encounter Ruben murillo MD Work Phone: Cardiology Comment on above: Received Outside Med ical Records Start: 01-11-2022 End: 02-09-2022 ambulatory H FAWWAD Facility:[facility] Start: 01-05-2022 Telephone encounter Ruben murillo MD Work Phone: Cardiology Comment on above: Received Outside Med ical Records Start: 01-04-2022 Telephone encounter Ruben murillo MD Work Phone: Cardiology Comment on above: Received Outside Med ical Records Start: 12-31-2021 End: 12-31-2021 Patient encounter merlin Evans MD Work Phone: Cardiology Comment on above: Chronic diastolic he art failure (HCC) (Primary Dx); Paroxysmal atrial fibrillation (HCC); Coronary artery disease involving [place] coronary artery of [place] heart without angina pectoris; Controlled type 2 diabetes mellitus without complication, without long-term current use of insulin (HCC) Start: 12-21-2021 Telephone encounter Ruben murillo MD Work Phone: Cardiology Comment on above: Received Outside Med ical Records Start: 12-12-2021 End: 01-10-2022 ambulatory PIRERE H FAWWAD Facility:[facility] Start: 12-07-2021 Telephone encounter Ruben murillo MD Work Phone: Cardiology Comment on above: Received Outside Med ical Records Start: 11-11-2021 End: 12-11-2021 ambulatory PIERRE H FAWWAD Facility:[facility] Start: 10-11-2021 End: 11-10-2021 ambulatory PIERRE H FAWWAD Facility:[facility] Start: 09-24-2021 End: 07-16-[address] DECLAN SWANSON Facility:[facility] Start: 09-22-2021 [...] (HCC); CHRISTIAN (obstructive sleep apnea); Atherosclerosis of [place] coronary artery of [place] heart without angina pectoris; Encounter for current [...] End: 05-20-2021 ambulatory Bruce Shine II Other [facility] Other Start: 05-20-2021 Office outpatient ne w 45 minutes Bruce Shine II [facility] Start: 04-21-2021 Telephone encounter Ruben murillo MD Work Phone: Cardiology Comment on above: Results (PT INR ) Start: 12-29-2020 Adult health examination Kali Swanson Other [facility] Other Procedures Date Procedure Procedure Detail Performing Clinician Start: 04-23-2024 Plain X-ray of left hand Declan Swanson DO Work Phone: Start: 12-06-2023 Acid Fast Smear Start: 12-06-2023 Aerobic Culture Start: 12-06-2023 AFB Specimen Processing Start: 12-06-2023 Anaerobic Culture Start: 12-05-2023 Blood Culture 1 Start: 12-05-2023 Blood Culture 2 Start: 06-05-2023 Ecg routine ecg w/le ast 12 lds i&r only [facility] Provider Start: 12-13-2022 Epidural injection o f lumbar spine using fluoroscopic guidance DO [facility] Work Phone: Start: 11-24-2022 MR lumbar spine wo con DO Declan Carbon Salon Work Phone: Start: 11-24-2022 XR pre/post mri xray DO Declan Carbon Salon Work Phone: Start: 10-12-2022 Plain x-ray of pelvi s and lower extremity DO [facility] Work Phone: Start: 10-12-2022 X-ray of both knees DO Declan Carbon Salon Work Phone: Start: 10-23-2019 Antibody screen Comment on above: Performed By: #### T SCR ####[place] [phone] Start: 09-18-2019 Antibody screen Comment on above: Performed By: #### T SCR ####[place] [phone] Start: 12-10-2015 Screening for malign ant neoplasm of colon Declan Swanson Other Start: 06-03-2015 General examination of patient Declan Swanson Other Start: 11-04-2013 Screening for malign ant neoplasm of prostate Declan Swanson Other Depression screening Benjami n Ball Other Depression screening Bradami n Ball Other H/O: artificial joint Bruce [place] II Other History of operative procedure on knee Bruce [place] II Other Screening for malign ant neoplasm of colon Bruce [place] II Other Screening for malign ant neoplasm of prostate Declan Swanson Other Plan of Treatment Date Care Activity Detail Author Start: 03-16-2033 Urine microalbumin profile DTa P,Tdap,Td Vaccine (2 - Td or Tdap) [facility] Start: 06-21-2024 End: 06-21-2024 Patient encounter procedure 06/21/2024 11:30 AM EDT Office Visit Cardiology [address] [place] [address] Ruben Denton MD [address] [place] [address] return in about 8 months (around 02/23/2023 Cardiology Comment on above: return in about 8 mo nths (around 02/23/2023 Start: 06-05-2024 End: 06-05-2024 Patient encounter procedure 06/05/2024 10:20 AM EDT Office Visit Cardiology [address] [place] [id number] [place] [address] [place] [address] Return in about 6 months (around 06/06/2024). Cardiology Comment on above: Return in about 6 mo nths (around 06/06/2024). Start: 06-04-2024 BP Controlled (<130/80) BP Con trolled (<130/80) [facility] Start: 04-23-2024 Plain X-ray of left hand XR hand LT min 3V* [facility] Start: 04-23-2024 XR Hand - left GE 3 Views [facility] Start: 03-13-2024 Advance Directive Discussion Advance Directive Discussion [facility] Start: 03-08-2024 End: 03-08-2024 Patient encounter procedure 03/08/2024 2:00 PM EST Office Visit Cardiology [address] [place] [address] Shama Ibanez PA-C [address] [place] [address] [place] in 4-8 weeks to followup Cardiology Comment on above: [place] in 4-8 weeks to followup Start: 02-13-2024 End: 02-13-2024 Patient encounter procedure 02/13/2024 1:00 PM EST Office Visit Cardiology [id number] [place] [address] Alix Barrios APRN.[facility] [address] [place] [address] [place] in 4-8 weeks to followup Cardiology Comment on above: [place] in 4-8 weeks to followup Start: 12-08-2023 End: 12-08-2023 Patient encounter procedure Cardiology Comment on above: echo Return in about 6 mo nths (around 12/06/2023). Start: 12-06-2023 Acid Fast Culture Acid Fast Culture [facility] Start: 11-12-2023 Covid-19 Vaccine () Covid-19 Vaccine () [facility] Start: 11-12-2023 Covid-19 Vaccine () Covid-19 Vaccine () [facility] Start: 11-12-2023 Influenza vaccination C [facility] Start: 03-13-2023 Advance Directive Discussion Advance Directive Discussion [facility] Start: 03-13-2023 Behavioral Health Screening Behavioral Health Screening [facility] Start: 03-13-2023 Depression Assessment Depression Ass essment [facility] Start: 12-31-2022 BP CONTROLLED (<130/80) BP CON TROLLED (<130/80) [facility] Start: 12-13-2022 [facility] Start: 11-11-2022 Covid-19 Vaccine () Covid-19 Vaccine () [facility] Start: 11-11-2022 Influenza vaccination C [facility] Start: 03-13-2022 ADVANCE DIRECTIVE DISCUSSION ADVANCE DIRECTIVE DISCUSSION [facility] Start: 03-13-2022 DEPRESSION ASSESSMENT DEPRESSION ASS ESSMENT [facility] Start: 11-11-2021 Influenza vaccination INFLUENZA (#1) [facility] Start: 09-18-2021 Hepatitis B surface antibody level LDL CHOLESTEROL [facility] Start: 06-25-2021 End: 08-25-2021 CBC panel - Blood by Automated count CBC Lab Routine Acute on chronic diastolic heart failure (HCC) Primary hypertension Expected: 06/25/2021, Expires: 08/25/2021 [facility] Work Phone: Comment on above: Expected: 06/25/2021 , Expires: 08/25/2021 Start: 06-25-2021 End: 08-25-2021 Comprehensive metabolic 2000 panel - Serum or Plasma COMP METABOLIC PANEL Lab Routine Acute on chronic diastolic heart failure (HCC) Primary hypertension Expected: 06/25/2021, Expires: 08/25/2021 [facility] Work Phone: Comment on above: Expected: 06/25/2021 , Expires: 08/25/2021 Start: 06-25-2021 End: 08-25-2021 LIPID PANEL BASIC LIPID PANEL BASIC Lab Routine Acute on chronic diastolic heart failure (HCC) Primary hypertension Expected: 06/25/2021, Expires: 08/25/2021 [facility] Work Phone: Comment on above: Expected: 06/25/2021 , Expires: 08/25/2021 Start: 05-20-2021 COVID-19 VACCINE (4 - Booster for Moderna series) COVID-19 VACCINE (4 - Booster for Moderna series) [facility] Start: 03-21-2021 Hemoglobin A1c measurement HbA1C [facility] Start: 03-21-2021 Hemoglobin A1c/Hemoglobin.total in Blood HBA1C [facility] Start: 03-17-2021 COVID-19 VACCINE (4 - Booster for Moderna series) COVID-19 VACCINE (4 - Booster for Moderna series) [facility] Start: 03-17-2021 COVID-19 VACCINE (4 - Moderna series) COVID-19 VACCINE (4 - Moderna series) [facility] Start: 03-13-2021 ADVANCE DIRECTIVE DISCUSSION ADVANCE DIRECTIVE DISCUSSION [facility] Start: 03-13-2021 DEPRESSION ASSESSMENT DEPRESSION ASS ESSMENT [facility] Start: 11-11-2020 Influenza vaccination INFLUENZA (#1) [facility] Start: 11-01-2020 COVID-19 VACCINE (3 - Booster for Moderna series) COVID-19 VACCINE (3 - Booster for Moderna series) [facility] Start: 01-17-2020 RSV Vaccine (1 - 1-d ose 75+ series) RSV Vaccine (1 - 1-dose 75+ series) [facility] Start: 11-09-2015 Pneumococcal Vaccine : 65+ (2 - PCV) Pneumococcal Vaccine: 65+ (2 - PCV) [facility] Start: 11-09-2015 Pneumococcal Vaccine : 65+ (2 of 2 - PCV) Pneumococcal Vaccine: 65+ (2 of 2 - PCV) [facility] Start: 11-09-2015 PNEUMOCOCCAL: 65+ (2 - PCV) PNEUMOCOCCAL: 65+ (2 - PCV) [facility] Start: 2010 ADVANCE DIRECTIVE DISCUSSION ADVANCE DIRECTIVE DISCUSSION [facility] Start: 2005 Hepatitis B Vaccine (1 of 3 - Risk 3-dose series) Hepatitis B Vaccine (1 of 3 - Risk 3-dose series) [facility] Start: 2005 RSV Vaccine (1 - 1-d ose 60+ series) RSV Vaccine (1 - 1-dose 60+ series) [facility] Start: 1995 SHINGRIX VACCINE (1 of 2) SHAH GRIX VACCINE (1 of 2) [facility] Start: 01-17-1964 Urine microalbumin profile [facility] Start: 1963 ANNUAL PCP TEAM CLINICAL SERVICES PROFESSIONAL FRANCESCA DISEASE VISIT ANNUAL PCP TEAM CHRONIC DISEASE VISIT [facility] Start: 1963 Anxiety Screening Anxiety Screening [facility] Start: 1963 BP CONTROLLED (<130/80) BP CON TROLLED (<130/80) [facility] Start: 1963 Depression Screening Depression Scre ening [facility] Start: 1963 HEPATITIS C SCREENING HEPATITIS C [facility] Start: 1963 Hepatitis C screening Hepatitis C [facility] Start: 1957 Adult depression scr eening assessment DEPRESSION SCREENING [facility] Start: 1955 3 comp foot exam completed DIABETIC FOOT EXAM [facility] Start: 1955 Diabetic foot examination Diabetic F oot Exam [facility] Start: 1955 Glaucoma screening Dilated Retinal E xam [facility] Start: 1955 Hepatitis B screening URINE ALBUMIN:CREATININE RATIO [facility] Start: 1955 Hepatitis C antibody , confirmatory test DILATED RETINAL EXAM [facility] End: 06-01-2022 ECG COMPLETE ECG COMPLETE ECG Routine Atrial fibrillation, persistent (HCC) 1 Occurrences starting 06/01/2021 until 06/01/2022 [facility] Work Phone: Comment on above: 1 Occurrences starti ng 06/01/2021 until 06/01/2022 End: 06-25-2022 ECG COMPLETE ECG COMPLETE ECG Routine Atrial fibrillation, persistent (HCC) 1 Occurrences starting 06/25/2021 until 06/25/2022 [facility] Work Phone: Comment on above: 1 Occurrences starti ng 06/25/2021 until 06/25/2022 End: 06-25-2023 ECG COMPLETE ECG COMPLETE ECG Routine Atrial fibrillation, persistent (HCC) 1 Occurrences starting 06/24/2022 until 06/25/2023 [facility] Work Phone: Comment on above: 1 Occurrences starti ng 06/24/2022 until 06/25/2023 ECG COMPLETE ECG COMPLETE ECG 06/05/2023 2:22 PM EDT [facility] End: 12-31-2022 Echocardiography [facility] Routine Chronic diastolic heart failure (HCC) 1 Occurrences starting 12/31/2021 until 12/31/2022 [facility] Work Phone: Comment on above: 1 Occurrences starti ng 12/31/2021 until 12/31/2022 End: 06-04-2024 Echocardiography [facility] Cardiology Routine Chronic diastolic heart failure (HCC) 1 Occurrences starting 06/05/2023 until 06/04/2024 [facility] Work Phone: Comment on above: 1 Occurrences starti ng 06/05/2023 until 06/04/2024 Patient Education Felter Non Damian gnostic Block [facility] Work Phone: Patient referral [facility] Work Phone: [facility] Immunizations Immunization Date Immunization Notes Care Provider Jose joseph 01-25-2022 influenza, high dose seasonal, preservative-free Declan Swanson Other [facility] Other 01-25-2022 influenza virus vaccine, unspecified formulation Ruben Denton MD Work Phone: [facility] 01-20-2021 COVID-19 Vaccine Moderna - Documentation Purposes Only Declan Swanson Other [facility] 12-29-2020 influenza virus vaccine, split virus (incl. purified surface antigen) Declan Swanson Other [facility] [employer] Other 12-29-2020 influenza virus vaccine, unspecified formulation [facility] 06-01-2020 COVID-19 vaccine, fu ll dose (MODERNA) Ruben Denton MD Work Phone: [facility] 05-04-2020 COVID-19 vaccine, fu ll dose (MODERNA) Ruben Denton MD Work Phone: [facility] 01-02-2019 influenza virus vaccine, split virus (incl. purified surface antigen) Declan Swanson Other [facility] [employer] Other 01-02-2019 influenza virus vaccine, unspecified formulation [facility] 12-01-2017 influenza virus vaccine, split virus (incl. purified surface antigen) Declan Swanson Other [facility] [employer] Other 12-01-2017 influenza virus vaccine, unspecified formulation [facility] 12-01-2017 Seasonal trivalent influenza vaccine, adjuvanted, preservative free Ruben Denton MD Work Phone: [facility] 01-08-2016 seasonal influenza, intradermal, preservative free Ruben Denton MD Work Phone: [facility] 12-10-2015 influenza virus vaccine, split virus (incl. purified surface antigen) Declan Swanson Other [facility] [employer] Other 12-10-2015 influenza virus vaccine, unspecified formulation [facility] 12-10-2015 influenza, high dose seasonal, preservative-free Ruben Denton MD Work Phone: [facility] 06-04-2015 pneumococcal conjuga te vaccine, 13 valent Declan Swanson Other [facility] 02-09-2015 influenza, injectabl e, quadrivalent, preservative free Ruben Denton MD Work Phone: [facility] 11-08-2014 pneumococcal polysaccharide vaccine, 23 valent Ruben Denton MD Work Phone: [facility] 11-21-2013 tetanus and diphther ia toxoids, adsorbed, preservative free, for adult use (5 Lf of tetanus toxoid and 2 Lf of diphtheria toxoid) Declan Swanson Other [facility] 12-23-2012 tetanus and diphther ia toxoids, adsorbed, preservative free, for adult use (5 Lf of tetanus toxoid and 2 Lf of diphtheria toxoid) Declan Swanson Other [facility] 12-21-2011 pneumococcal polysaccharide vaccine, 23 valent Declan Swanson Other [facility] Payers Date Payer Category Payer Self-pay [id number] 2019 Unknown MMO MMO MEDICARE SUPPLEMENT [id number] 2019-Present [phone] [address] [place] [address] Indemnity [id number] 2019 Unknown MMO MMO MEDICARE SUPPLEMENT [id number] 2019-Present [phone] [address] [place] [address] Indemnity [id number] 2010 Medicare MEDICARE MEDICAR E A AND B [id number] 2010-Present [phone] [place] [address] Medicare [id number] 2010 Medicare MEDICARE MEDICAR E A AND B [id number] 2010-Present [phone] [place] [address] Medicare [id number] 1959 Medicare [id number] 1959 Unknown [id number] 2.16.840.1.555969.19 1945 Unknown [id number] 2.16.840.1.649089.3.579.2.593 1945 Unknown [id number] 2.16.840.1.893027.3.579.2.593 1945 Unknown [id number] 2.16.840.1.862539.3.579.2.593 1945 Unknown [id number] 2.16.840.1.225841.3.579.2.593 1945 Unknown [id number] 2.16.840.1.882825.3.579.2.593 1945 Unknown [id number] 2.16.840.1.496522.3.579.2.593 1945 Unknown [id number] 2.16.840.1.992960.3.579.2.593 1945 Unknown [id number] 2.16.840.1.852832.3.579.2.593 1945 Unknown [id number] 2.16.840.1.280844.3.579.2.593 1945 Unknown [id number] 2.16.840.1.672241.3.579.2.593 1945 Unknown [id number] 2.16.840.1.952711.3.579.2.593 1945 Unknown [id number] 2.840.1.723513.3.579.2.593 1945 Unknown [id number] 2.840.1.720005.3.579.2.593 1945 Unknown [id number] 2.840.1.343229.3.579.2.593 1945 Unknown [id number] 2.840.1.975384.3.579.2.593 1945 Unknown [id number] 2.840.1.455149.3.579.2.593 1945 Unknown [id number] 2.840.1.563654.3.579.2.593 1945 Unknown [id number] 2.840.1.828351.3.579.2.593 1945 Unknown [id number] 2.840.1.314315.3.579.2.1259 1945 Unknown [id number] 2.840.1.401682.3.579.2.1259 1945 Unknown [id number] 2.840.1.955909.3.579.2.1259 1945 Unknown [id number] 2.840.1.511240.3.579.2.1259 1945 Unknown [id number] 2.840.1.304928.3.579.2.1259 Unknown [id number] 2.840.1.026499.19 Unknown [facility] Health Claims [id number] Unknown [id number] 2.16.840.1.894399.3.579.2.531 Social History Date Type Detail Facility Start: 06-18-2013 End: 12-13-2022 Tobacco smoking status NHIS Ex-smoker [facility] End: 12-11-2012 History of tobacco use Current smoker [facility] End: 12-11-2012 History of tobacco use Cigar Smoker [facility] Start: 06-18-2013 End: 06-05-2023 Tobacco use and exposure Smokeless tobacco non-user [facility] Start: 09-18-2020 End: 12-08-2023 Alcohol intake Ex-drinker (finding) [facility] Start: 1945 Sex Assigned At Not on file C [facility] Start: 06-15-2021 End: 12-31-2021 Exposure to SARS-CoV-2 (event) Not sure [facility] Work Phone: Start: 06-25-2021 End: 06-05-2023 Sex Assigned At [facility] Start: 1945 Sex Assigned At Male F [facility] Start: 06-25-2021 End: 06-05-2023 History of Social function [facility] PHQ2 Score 0 [facility] Start: 04-23-2024 End: 06-12-2024 Sex Male (finding) [facility] Medical Equipment Procedure Code Equipment Code Equipment Origin al Text Equipment Identifier Dates Blood Sugar Diagnostic (Accu-Chek Guide Test Strips) strip Start: 05-29-2024 Lancets (Accu-Ch ek Softclix Lancets) misc Start: 05-09-2024 Blood Sugar Diagnostic (Accu-Chek Guide Test Strips) strip Start: 05-09-2024 End: 05-28-2024 Blood Sugar Diagnostic (Accu-Chek Guide Test Strips) strip Start: 05-28-2024 End: 05-29-2024 Goals Date Patient Goal Desired Activity /State Personal health goal Clinical Notes 04-21-2021 to 04-23-2024 Note Date & Type Note Facility 02-11-2025 Evaluation note Diagnosis Onset Date Resolution 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 acute April 232024 7:47am ASHD (arteriosclerotic heart disease) acute May 07, 2024 9:50am Atrial fibrillation acute Febru jairo2024 9:50am Hypercholesteremia acute Februa ry 2024 9:50am Obesity acute May 07, 2024 9:50am CHRISTIAN (obstructive sleep apnea) acute May 07, 2024 9:50am Pulmonary nodule, right acute F ebruary 2024 9:50am Type 2 diabetes mellitus with diabetic polyneuropathy acute May 07, 2024 9:50am Type 2 diabetes mellitus with hyperglycemia acute April 9:50am Venous insufficiency of both lower extremities acute May 07, 2024 9:50am Ascending aortic aneurysm acute June 12, 2024 9:01am ASHD (arteriosclerotic heart disease) acute June 12, 2024 9:01am Atrial fibrillation acute June 12, 2024 9:01am Hypercholesteremia acute June 12, 2024 9:01am CHRISTIAN (obstructive sleep apnea) acute June 12, 2024 9:01am Pulmonary hypertension acute Ap 2024 9:01am Type 2 diabetes mellitus with hyperglycemia acute June 12 9:01am Venous insufficiency of both lower extremities acute June 9:01am [facility] Work Phone: [phone]) 551-158501-22-2025 Telephone encounter Note* Telephone Encounter - Radha Gates - 04/03/2024 11:52 AM EST Uploaded INR results from [facility] FAX into scanned documents and EP shared drive. [facility] IC [id number] [facility]01-22-2025 Miscellaneous Notes* Telephone Encounter - Radha Welch - 04/03/2024 11:52 AM EST Uploaded INR results from [facility] FAX into scanned documents and EP shared drive. Radha IC 955 documented in this [facility]12-[facility] Evaluation note* Diagnosis Onset Date Resolution Status Admit Date Afib acute February 22, 2024 9:45am Warfarin anticoagulation acute February 22, 2024 9:45am Acute sinusitis noneactive February 22, 2024 9:45am 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 acute April 23, 2 025 7:47am [facility] Work Phone: [phone]) 319-881412-12-2024 Evaluation note* Diagnosis Onset Date Resolution Status Admit Date Afib acute February 22, 2024 9:45am Warfarin anticoagulation acute February 22, 2024 9:45am Acute sinusitis noneactive February 22, 2024 9:45am 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 acute April 23, 2 025 7:47am Afib acute May 07, 2024 9:50am ASHD (arteriosclerotic heart disease) acute May 07, 2 025 9:50am Hypercholesteremia acute Februa 2024 9:50am CHRISTIAN (obstructive sleep apnea) acute May 07, 2024 9:50am Pulmonary nodule, right acute F ebruary 2024 9:50am Type 2 diabetes mellitus wit h diabetic polyneuropathy acute May 07, 2024 9:50am Type 2 diabetes mellitus wit h hyperglycemia acute May 07, 025 9:50am Venous insufficiency of both lower extremities acute May 07, 2024 9:50am [facility] Work Phone: [phone] 136-567812-11-2024 Telephone encounter Note* Telephone Encounter - Alisha Gomez RN - 02/21/2024 1:56 PM EST Images from the original note were not included. [facility]12-11-2024 Miscellaneous Notes* Telephone Encounter - Alisha Gomez RN - 02/21/2024 1:56 PM EST Images from the original note were not included. * Telephone Encounter - RadhaDanielu Radha - 02/21/2024 1:48 PM EST Received LAB results. Uploaded to scanned documents and EP Shared drive. -Radha IC 955 documented in [facility] encounterE[facility]12-[facility]-2024 Telephone encounter Note * Telephone Encounter - RadhaRadha Garibay - 02/21/2024 1:48 PM EST Received LAB results. Uploaded to scanned documents and EP Shared drive. -Radha IC 955 [facility]12-03-2024 History of Present illness Narrative* Alix Barrios APRN.CNP - 02/13/2024 1:00 PM EST Images from the original note were not included. [facility] Department of Cardiovascular Medicine SECTION OF CLINICAL CARDIOLOGY OUTPATIENT VISIT DATE February 13, 2024 OUTPATIENT VISIT TYPE ESTABLISHED PRIMARY CARE PHYSICIAN: Declan Swanson () [address] [place] [address] REFERRING PHYSICIAN: No referring provider defined for this encounter. CHIEF COMPLAINT: No chief complaint on file. HISTORY OF PRESENT ILLNESS: Mr. Davis is a 79 year old male who presents today for a cardiovascular medicine follow-up visit. PMH significant for persistent atrial fib s/p PVAI (2019); chronic HFpEF; CAD; HTN; HLD; T2DM. Established patient of Dr Evans, and Dr Denton (EP). He is seen today in the outpatient cardiology office for routine follow up. DAWSON with Dr Evans 12/08/2023: ASSESSMENT/PLAN: 1. Chronic diastolic heart failure (HCC) [...] Continue staitn 5. Coronary artery disease involving [place] coronary artery of [place] heart without angina pectoris- ICD9: 414.01, ICD10: I25.10 Mild Addendum 12/18/2023: Tell pt pro bnp is high suggesting fluid overload I started Jardiance so make sure he is taking Increase lasix to 40 mg B ID for 5 days then once a day Recheck pro bnp in 4 weeks Reinforce salt restriction Please schedule earlier appt with [facility] in 4-8 weeks to followup Please tell pt to notify us if he is not improving Today, he reports overall he is doing well. Activity tolerance is unchanged. Helps around the house, is able to navigate stairs, does have some shortness of breath with this but just takes his time. Overall unchanged. He denies abdominal distention, chest pain, orthopnea, cough, palpitations, PND, lightheadedness orsyncope. +1 pitting edema today in the office, R>L. Pt states he did not take his diuretic this AM d/t the long drive to the office. Endorses compliance with medication regimen, including Jardiance. NT proBNP elevated, but unchanged from 2 months ago >> 2,044 today compared to 2,139 on 12/08/2023. PAST CARDIAC HISTORY: ECHO (12/08/2023): CONCLUSIONS: - Technically difficult exam due to [...] exam performed on 06/24/2022. RVSP has increased. (06/05/2023): PAST MEDICAL HISTORY Diagnosis Date Acute gastric [...] Types: Cigars Quit date: 12/11/2012 Years since quittin.1 Smokeless tobacco: Never Vaping Use Vaping status: Never Used Substance Use Topics Alcohol use: Not Currently Drug use: No FAMILY HISTORY Problem Relation Age of Onset Heart Mother Heart Father ALLERGIES: ALLERGIES No Known Allergies MEDICATIONS: empagliflozin (JARDIANCE) 10 mg tablet Take 1 tablet by mouth daily with breakfast. warfarin (COUMADIN) 1 mg tablet Take 4 [...] Take 300 mg by mouth once daily. CARDIOVASCULAR MEDICINE TESTING: No Cardiovascular testing perfomed today. There were no tests performed for review. REVIEW OF SYSTEMS: PAIN ASSESSMENT: Negative for pain, history of chronic pain, or current treatment for a chronic pain condition. GENERAL: Negative for: Weight loss or gain, Fever or Chills, Weakness and Sleep difficulties. HEENT: Negative for: Headache, Impaired Vision, Glasses, Hearing Impairment, Ringing in Ears, Nosebleeds, Poor Dental Care, Bleeding Gums and Dentures. NECK: Negative for: Swelling, Pain, Stiffness RESPIRATORY: Positive for: Shortness of breath GASTROINTESTINAL: Negative for: Trouble swallowing, Heartburn, Change [...] Cold Intolerance, Excessive Sweating, Frequent Urination, FrequentThirst I have confirmed and edited as necessary the PFSH obtained by others. PHYSICAL EXAM: BP 134/68 (BP Site: Left Arm, BP Position: Sitting, BP Cuff Size: Large Adult) Pulse 66 Wt 120.2 kg (264 lb 15.9 oz) SpO2 96% BMI 44.10 kg/m Body mass index is 44.1 kg/m . GENERAL: Alert, no distress, cooperative LUNGS: Lungs clear to auscultation. Good diaphragmatic excursion. CARDIAC: Normal S1 and S2; no rubs, murmurs, or gallops ABDOMEN: Abdomen soft, non-tender, BS normal, No masses or organomegaly EXTREMITIES: Positive findings: Edema: 1+ pitting edema Bilateral pedal and ankles, No ulcers NEURO: Alert, oriented X 3, Gait normal. Non-focal. Reflexes normal and symmetric. Sensation grossly intact., Cranial nerves II-XII intact PULSES: 2+ radial IMPRESSION: Mr. Davis is a 79 year old male with the above PMH who was seen in the outpatient cardiology officefor routine follow up. Today, he reports overall he is doing well. Activity tolerance is unchanged.Helps around the house, is able to navigate stairs, does have some shortness of breath with this but just takes his time. Overall unchanged. He denies abdominal distention, chest pain, orthopnea, cough, palpitations, PND, lightheadedness orsyncope. +1 pitting edema today in the office, R>L. Pt states he did not take his diuretic this AM d/t the long drive to the office. Endorses compliance with medication regimen, including Jardiance. NT proBNP elevated, but unchanged from 2 months ago >> 2,044 today compared to 2,139 on 12/08/2023. Weight is about 3 lbs up from previous in November 2023. Unclear EDW. PLAN AND RECOMMENDATIONS: Problem List Items Addressed This Visit HTN (hypertension) - Primary Atherosclerosis of [place] coronary artery of [place] heart without angina pectoris Atrial fibrillation, persistent (HCC) Chronic diastolic heart failure (HCC) Mixed hyperlipidemia - continue Jardiance 10 mg, furosemide 40 mg, pravastatin 80 mg - encouraged low sodium, heart healthy diet - physical exercise as tolerated - weigh daily at home, preferable in the AM after using the bathroom - follow up as scheduled with Dr Evans in 3-4 months I personally interviewed, confirmed and edited the above information if obtained by others. CONTACT INFORMATION: Alix Barrios APRN.CNP [facility] Second Floor [address] [facility]. [place], [place] [id number] I spent 30 minutes in the visit, with more than 50% of the total [id number] time of the visit in counseling / coordination of care. documented in this encounterE[facility]12-[facility]-2024 NoteHNO ID: [id number] Author: ALIX BARRIOS APRN.CNP Service: ? Author Type: Nurse Practitioner Type: Progress Notes Filed: 02/13/2024 14:49 Note Text: [facility] Department of Cardiovascular Medicine SECTION OF CLINICAL CARDIOLOGY OUTPATIENT VISIT DATE February 13, 2024 OUTPATIENT VISIT TYPE ESTABLISHED PRIMARY CARE PHYSICIAN: Declan Swanson (Peggy) [address] [place] [address] REFERRING PHYSICIAN: No referring provider defined for this encounter. CHIEF COMPLAINT: No chief complaint on file. HISTORY OF PRESENT ILLNESS: Mr. Davis is a 79 year old male who presents today for a cardiovascular medicine follow-up visit. PMH significant for persistent atrial fib s/p PVAI (2019); chronic HFpEF; CAD; HTN; HLD; T2DM. Established patient of Dr Evans, and Dr Denton (EP). He is seen today in the outpatient cardiology office for routine follow up. DAWSON with Dr Evans 12/08/2023: ASSESSMENT/PLAN: 1. Chronic diastolic heart failure (HCC) [...] Continue staitn 5. Coronary artery disease involving [place] coronary artery of [place] heart without angina pectoris - ICD9: 414.01, ICD10: I25.10 Mild Addendum 12/18/2023: Tell pt pro bnp is high suggesting fluid overload I started Jardiance so make sure he is taking Increase lasix to 40 mg B ID for 5 days then once a day Recheck pro bnp in 4 weeks Reinforce salt restriction Please schedule earlier appt with [facility] in 4-8 weeks to followup Please tell pt to notify us if he is not improving Today, he reports overall he is doing well. Activity tolerance is unchanged. Helps around the house, is able to navigate stairs, does have some shortness of breath with this but just takes his time. Overall unchanged. He denies abdominal distention, chest pain, orthopnea, cough, palpitations, PND, lightheadedness or syncope. +1 pitting edema today in the office, R>L. Pt states he did not take his diuretic this AM d/t the long drive to the office. Endorses compliance with medication regimen, including Jardiance. NT proBNP elevated, but unchanged from 2 months ago >> 2,044 today compared to 2,139 on 12/08/2023. PAST CARDIAC HISTORY: ECHO (12/08/2023): CONCLUSIONS: - Technically difficult exam due to body habitus and suboptimal positioning. - Exam indication: Evaluation of known heart failure to guide therapy - The left ventricle is normal in size. There is concentric left ventricular hypertrophy. Left ventricular systolic function is normal. EF = 60 ? 5% (2D 4-ch.) Left ventricular diastolic function [...] exam performed on 06/24/2022. RVSP has increased. (06/05/2023): PAST MEDICAL HISTORY Diagnosis Date Acute gastric [...] OF minor hand surgery REPAIR UMBILICAL HERNIA (more content not included)...[facility] 02-09-2024 Telephone encounter Note* Telephone Encounter - Joselyn Macedo RN - 02/09/2024 7:51 AM EST INR results received, patient remains therapeutic. Patient is not scheduled for any upcoming procedures and coumadin is managed locally. Joselyn Macedo RN [facility]11-29-2024 Miscellaneous Notes* Telephone Encounter - Joselyn Macedo RN - 02/09/2024 7:51 AM EST INR results received, patient remains therapeutic. Patient is not scheduled for any upcoming procedures and coumadin is managed locally. Joselyn Macedo RN * Telephone Encounter - Radha Gates - 02/07/2024 2:50 PM EST Received faxed LAB results. Uploaded to scanned documents and EP shared drive. -Radha documented in this encounterElyria [facility] Tele[facility] Note * Telephone Encounter - Radha Gates - 02/07/2024 2:50 PM EST Received faxed LAB results. Uploaded to scanned documents and EP shared drive. -Radha [facility]11-13-2024 Telephone encounter Note* Telephone Encounter - Alisha Gomez RN - 01/24/2024 3:30 PM EST Images from the original note were not included. [facility]11-13-2024 Miscellaneous Notes* Telephone Encounter - Alisha Gomez RN - 01/24/2024 3:30 PM EST Images from the original note were not included. * Telephone Encounter - Radha Gates - 01/24/2024 2:57 PM EST Received INR LAB results from [facility]. Uploaded to [employer] and [employer]. -Radha IC [id number] documented in this encounterElyria [facility] Hospital11-13-2024 Telephone encounter Note * Telephone Encounter - Radha Gates - 01/24/2024 2:57 PM EST Received INR LAB results from [facility]. Uploaded to [employer] and [employer]. -Radha IC 955 [facility]10-08-2024 Telephone encounter Note* Telephone Encounter - Claire Callejas RN - 12/19/2023 2:09 PM EDT Images from the original note were not included. Spoke with patients . Relayed Dr. Pineda message below. Patient is NOT taking Jardiance due to cost. Will adjust Lasix and recheck BNP. Appt scheduled end of Feb with Shama. Patient is requestingchange to [facility] instead of [place]. Will contact us if no improvement. Venkat Evans V, MD P Avw Card Nurse; P Avw Card Supervisor [employer] Tell pt pro bnp is high suggesting fluid overload I started Jardiance so make sure he is taking Increase lasix to 40 mg B ID for 5 days then once a day Recheck pro bnp in 4 weeks Reinforce salt restriction Please schedule earlier appt with GERMAIN in 4-8 weeks to followup Please tell pt to notify us if he is not improving [facility]10-08-2024 Miscellaneous Notes* Telephone Encounter - Claire Callejas RN - 12/19/2023 2:09 PM EDT Images from the original note were not included. Spoke with patients . Relayed Dr. Pineda message below. Patient is NOT taking Jardiance due to cost. Will adjust Lasix and recheck BNP. Appt scheduled end of Feb with Shama. Patient is requestingchange to [facility] instead of [place]. Will contact us if no improvement. Venkat Evans V, MD P Avw Card Nurse; P Avw Card Supervisor [employer] Tell pt pro bnp is high suggesting [...] he is not improving documented in this encounterElyria [facility]10-01-2024 Telephone encounter Note * Telephone Encounter - Bryan Dwyer - 12/12/2023 2:57 PM EDT Documentation scanned into EP outside database Scanned INR report into epic [facility]10-01-2024 Miscellaneous Notes* Telephone Encounter - Bryan Dwyer - 12/12/2023 2:57 PM EDT Documentation scanned into EP outside database Scanned INR report into epic documented in this encounterElyria [facility] Hospital09-27-2024 NoteHNO ID: [id number] Author: VENKAT EVANS MD Service: ? Author Type: Physician Type: Progress Notes Filed: 12/08/2023 11:39 Note Text: Referring Physician: Venkat Evans [id number] [place] [address] Primary Care Physician: DO Jorge Unger Ryan [...] Continue staitn 5. Coronary artery disease involving [place] coronary artery of [place] heart without angina pectoris - ICD9: 414.01, [...] (mg/dL) Date Value 09/18/2020 78 Venkat Evans [facility]09-27-2024 History of Present illness Narrative* Venkat Evans V, MD - 12/08/2023 11:24 AM EDT Images from the original note were not included. Referring Physician: Venkat Evans [address] [facility] [address] Primary Care Physician: DO Jorge Unger Ryan [...] Continue staitn 5. Coronary artery disease involving [place] coronary artery of [place] heart without angina pectoris- ICD9: 414.01, ICD10: I25.10 Mild Venkat Evans [...] mouth once daily. Hyperuricemia Therapy - Xanthine OxidaseInhibitors COMPOUNDED PRESCRIPTION Skin cream - patient unsure [...] 78 Venkat Evans MD documented in this encounterElyria [facility]09-04-2024 Telephone encounter Note * Telephone Encounter - Bryan Dwyer - 11/15/2023 2:36 PM EDT Documentation scanned into EP outside database Scanned INR results into [facility]09-04-2024 Miscellaneous Notes* Telephone Encounter - Bryan Dwyer - 11/15/2023 2:36 PM EDT Documentation scanned into EP outside database Scanned INR results into [facility] documented in this encounterElyria [facility] Hospital07-09-2024 Telephone encounter Note * Telephone Encounter - Bryan Dwyer - 09/19/2023 3:52 PM EDT Documentation scanned into EP outside database Scanned INR results into epic [facility]07-09-2024 Miscellaneous Notes* Telephone Encounter - Bryan Dwyer - 09/19/2023 3:52 PM EDT Documentation scanned into EP outside database Scanned INR results into epic documented in this encounterElyria [facility]06-11-2024 Telephone encounter Note * Telephone Encounter - Bryan Dwyer - 08/22/2023 4:52 PM EDT Documentation scanned into EP outside database Scanned INR results into epic [facility]06-11-2024 Miscellaneous Notes* Telephone Encounter - Bryan Dwyer - 08/22/2023 4:52 PM EDT Documentation scanned into EP outside database Scanned INR results into epic documented in this encounterElyria [facility] Hospital05-14-2024 Telephone encounter Note * Telephone Encounter - Bryan Dwyer - 07/25/2023 10:21 AM EDT Documentation scanned into EP outside database Scanned INR results into Epic [facility]05-14-2024 Miscellaneous Notes* Telephone Encounter - Bryan Dwyer - 07/25/2023 10:21 AM EDT Documentation scanned into EP outside database Scanned INR results into Epic documented in this encounterElyria [facility] Hospital04-23-2024 History of Present illness Narrative* Shama Ibanez PA-C - 07/04/2023 10:00 AM EDT Images from the original note were not included. [facility] Department of Cardiovascular Medicine SECTION OF CARDIAC PACING and ELECTROPHYSIOLOGY OUTPATIENT VISIT DATE July 04, 2023 OUTPATIENT VISIT TYPE ESTABLISHED PRIMARY CARE PHYSICIAN: Declan Swanson (Peggy) [address] [place] [address] CHIEF COMPLAINT: Cardiology follow up HISTORY OF [...] Anthroscopy Left Shoulder PAST SURGICAL HISTORY OF 2011 Revision Left Knee PAST SURGICAL HISTORY OF [...] Excessive Sweating, Frequent Urination, FrequentThirst PHYSICAL EXAMINATION: BP 146/78 (BP Site: Right Arm, BP Position: Sitting, BP Cuff Size: Large Adult) Pulse 80 Ht 165.1 cm (5' 5 ) Wt 121.3 kg (267 lb 6.7 oz) BMI 44.50 kg/m General: Well appearing, in no acute distress, speaking in complete sentences. Neck: No jugular venous distention, no carotid bruits, carotids have a normal upstroke, no palpablethyromegaly. Lungs: Clear to auscultation bilaterally, no wheezing [...] with more than 50% of the total [id number] time of the visit in counseling / coordination of care. documented in this encounterElyria [facility] Hospital04-23-2024 NoteHNO ID: [id number] Author: SHAMA IBANEZ PA-C Service: ? Author Type: Physician Shipping Point Inspector Type: Progress Notes Filed: 07/04/2023 10:19 Note Text: [facility] Department of Cardiovascular Medicine SECTION OF CARDIAC PACING and ELECTROPHYSIOLOGY OUTPATIENT VISIT DATE July 04, 2023 OUTPATIENT VISIT TYPE ESTABLISHED PRIMARY CARE PHYSICIAN: Declan Swanson (Peggy) [address] [place] [address] CHIEF COMPLAINT: Cardiology follow up HISTORY OF [...] no wheezing or rhonchi (more content not included)...[facility]04-23-2024 Instructions* Patient Instructions* Shama Ibanez PA-C - 07/04/2023 9:58 AM EDT - No changes to medications today - Will have you see Dr Evans with echo as scheduled - Will have you see Dr Denton in 1 year - Call us sooner with any questions or concerns Shama Ibanez PA-C documented in this encounterElyria [facility] Hospital04-16-2024 Miscellaneous Notes* Telephone Encounter - Bryan Dwyer - 06/27/2023 2:52 PM EDT Documentation scanned into EP outside database Scanned INR results into [employer] documented in this encounterElyria Memorial Hospital03-25-2024 NoteHNO ID: [id number] Author: VENKAT EVANS MD Service: ? Author [...] Cholesterol (mg/dL) Date Value 09/18/2020 78 Venkat Evans, [facility]03-25-2024 History of Present illness Narrative* Venkat Evans V, MD - 06/05/2023 2:12 PM EDT Referring Physician: No referring provider defined for [...] mouth once daily. Hyperuricemia Therapy - Xanthine OxidaseInhibitors COMPOUNDED PRESCRIPTION Skin cream - patient unsure [...] 78 Venkat Evans MD documented in this encounterElyria Memorial Hospital03-19-2024 Miscellaneous Notes* Telephone Encounter - Bryan Dwyer - 05/30/2023 9:19 AM EDT Documentation scanned into EP outside database Scanned into [employer] documented in this [facility]02-20-2024 Miscellaneous Notes* Telephone Encounter - Bryan Dwyer - 05/02/2023 3:27 PM EST Documentation scanned into EP outside database documented in this [facility]01-25-2024 Miscellaneous Notes* Telephone Encounter - Suman Garvin - 04/06/2023 6:45 AM EST Outside medical records (INR report 04/04/2023) scanned into [employer] and shared EP drive. documented in this [facility]01-11-2024 Evaluation note* Encounter Date Diagnosis Assessment Notes Treatment Notes Treatment Clinical Notes Mar, Contusion of scalp, initial encounter [...] further antibiotics necessary Call w/ increased tenderness [employer] Other [id number] Miscellaneous Notes* Telephone Encounter - Suman Garvin - 02/07/2023 9:31 AM EST Outside medical records (INR report 02/07/2023) scanned into [employer] and [employer]. documented in this encounterElyria [facility] Hospital11-01-2023 Miscellaneous Notes* Telephone Encounter - Suman Garvin - 01/11/2023 7:24 AM EDT Outside medical records (INR Report 01/10/2023) scanned into [employer] [address]. documented in this encounterElyria [facility] Hospital10-26-2023 Miscellaneous Notes* Telephone Encounter - Suman Garvin - 01/05/2023 6:48 AM EDT Images from the original note were not included. Outside medical records (INR report 12/27/2022) scanned into [employer]. documented in this [facility]10-24-2023 Evaluation note* Encounter Date Diagnosis Assessment Notes [...] but no change in treatment is necessary [facility] Other 10-23-2023 Evaluation note* Encounter Date Diagnosis [...] BS but no adjustment in treatment necessary [facility] Other 10-13-2023 Miscellaneous Notes* Telephone Encounter - Bobbi Day - 12/23/2022 7:48 AM EDT Patient records received via electronic fax. Uploaded to [employer]. INR 12.20.22 Bobbi Day documented in this encounterElyria [facility] Hospital10-10-2023 Evaluation note* Encounter Date Diagnosis Assessment [...] Above note written by Christian Damon MA, Building Official. Edited and approved by Dr. Ruben Celis MD. [employer] Other 10-04-2023 Evaluation note* Encounter Date Diagnosis [...] are maintaining regular scheduled appts with their roof fixer. No bleeding complications Dec, Type 2 [...] treatment, noncompliant Aware this would likely prevent presybeterian of NSR Dec, Chronic venous insufficiency of [...] as needed. 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 Uploaded to [employer]. INR 8 Bobbi Day documented in this encounterElyria [facility] Hospital08-16-2023 Evaluation note* Encounter Date Diagnosis Assessment [...] note writ ten by Christian Damon MA, Building Official. Edited and approved by Dr. Ruben Cleis MD. [facility] Other 08-03-2023 Miscellaneous Notes* Telephone Encounter - Shay Bobbi - 10/13/2022 3:54 PM EDT Patient records received via electronic fax. Uploaded to [employer]. INR 8 Bobbi Day documented in this encounterElyria Memorial Hospital08-03-2023 Evaluation note* Encounter Date Diagnosis Assessment [...] Microalbumin, Dilated eye exam and Foot exam [employer] Other 08-02-2023 Evaluation note* Encounter Date Diagnosis [...] with me on a as needed basis. [employer] Other 07-07-2023 Miscellaneous Notes* Telephone Encounter - Suman Garvin - 09/16/2022 7:48 AM EDT Images from the original note were not included. Outside medical records (INR report) scanned into [employer]. documented in this encounterElyria [facility] Hospital07-06-2023 Evaluation note* Encounter Date Diagnosis Assessment [...] Microalbumin, Dilated eye exam and Foot exam [employer] Other 06-28-2023 Miscellaneous Notes* Telephone Encounter - Orly Olivo MA - 09/07/2022 11:30 AM EDT Received lab results from [facility]. No upcoming appts. Sent for scanning. documented in this encounterElyria Memorial Hospital06-22-2023 Miscellaneous Notes* Telephone Encounter - Bobbi Day - 09/01/2022 2:39 PM EDT Patient records received via electronic fax. Uploaded to [employer] labs 15.23 Bobbi Day documented in this encounterElyria [facility] Hospital06-06-2023 Evaluation note* Encounter Date Diagnosis Assessment [...] are maintaining regular scheduled appts with their roof fixer. Aug, Pulmonary nodule, right (ICD-10 - [...] High risk medication use (ICD-10 - Z79.899) [employer] Other 05-11-2023 Miscellaneous Notes* Telephone Encounter - Bobbi Day - 07/21/2022 12:00 PM EDT Patient records received via electronic fax. Uploaded to [employer]. INR 5.11.23 Bobbi Day documented in this encounterElyria [facility] Hospital05-04-2023 Miscellaneous Notes* Telephone Encounter - Kayla [...] this year with me documented in this encounterElyria [facility] Hospital04-17-2023 Miscellaneous Notes* Telephone Encounter - Chiquita Soares RN - 06/27/2022 2:55 PM EDT Spoke to patient per MD request. Per Dr Denton: Can you call him and let him know I got his ECG printed out the way I wanted, and I do think he was in atrial fib on Monday at [facility]? Tell him we are not changing anything now, but I wanted to follow up with him about this. Thanks TD Chiquita Soares RN documented in this encounterElyria [facility] Hospital04-17-2023 Evaluation note* Encounter Date Diagnosis Assessment [...] - aorta is borderline dilated 4.0 cm. [employer] Other 04-14-2023 History of Present illness Narrative* [...] (Hypertension) Dyslipidemia Atrial Fibrillation (Hcc) Atherosclerosis of [place] Coronary Artery of [place] Heart Without Angina Pectoris Diabetes Mellitus Type [...] phrases that may beinappropriate. documented in this [facility]04-13-2023 Miscellaneous Notes* Telephone Encounter - Bobbi Day - 06/23/2022 11:30 AM EDT Patient records received via electronic fax. Uploaded to [employer]. INR 4.13.23 Bobbi Day documented in this [facility]03-17-2023 Miscellaneous Notes* Telephone Encounter - Bobbi Day - 05/27/2022 9:01 AM EDT Patient records received via electronic fax. Uploaded to [employer] INR RESULTS Bobbi Day documented in this [facility]03-06-2023 Evaluation note* Encounter Date Diagnosis Assessment Notes [...] are maintaining regular scheduled appts with their roof fixer. May, CHRISTIAN (obstructive sleep apnea) (ICD-10 [...] past 2 years. No further screening required. [employer] Other 01-10-2023 Evaluation note* Encounter Date Diagnosis [...] which are reviewed at the office visit. [employer] Other [id number] Miscellaneous Notes* Telephone Encounter - Bobbi Day - 03/10/2022 9:28 AM EST Images from the original note were not included. Patient records received via electronic fax. Uploaded to [employer] Bobbi Day documented in this encounterElyria [facility] Hospital12-07-2022 NotePROCEDURE: XR FOOT LT MIN [...] Date: 2022-02-16 09:55[facility]12-07-2022 NotePROCEDURE: XR FOOT LT MIN 3 VIEWS, [...] Date: 2022-02-16 09:55[facility]11-22-2022 Miscellaneous Notes* Telephone Encounter - Bobbi Day - 02/01/2022 4:02 PM EST Images from the original note were not included. Patient records received via electronic fax. Uploaded to [employer] / [employer] Bobbi Day documented in this [facility]11-10-2022 Miscellaneous Notes* Telephone Encounter - Bobbi Day - 01/20/2022 4:51 PM EST Patient records received via electronic fax. Uploaded to [employer] Bobbi Day documented in this [facility]11-08-2022 Miscellaneous Notes* Telephone Encounter - Bobbi Day - 01/18/2022 2:49 PM EST Images from the original note were not included. Patient records received via electronic fax. Uploaded to [employer] Bobbi Day documented in this [facility]10-26-2022 Miscellaneous Notes* Telephone Encounter - Bobbi Day - 01/05/2022 8:57 AM EDT Images from the original note were not included. Patient records received via electronic fax. Uploaded to [employer] / [employer] Bobbi Day documented in this [facility]10-25-2022 Miscellaneous Notes* Telephone Encounter - Bobbilesley Day - 01/04/2022 4:17 PM EDT Images from the original note were not included. Patient records received via electronic fax. Uploaded to shared drive Bobbi Day documented in this encounterElyria [facility] Hospital10-21-2022 History of Present illness Narrative* Venkat Evans V, MD - 12/31/2021 1:00 PM EDT Referring Physician: Sara Carlson [id number] [facility] [address] Primary Care Physician: DO Jorge Unger Ryan [...] Per EP 3. Coronary artery disease involving [place] coronary artery of [place] heart without angina pectoris- ICD9: 414.01, ICD10: [...] 78 Venkat Evans MD documented in this [facility]10-11-2022 Miscellaneous Notes* Telephone Encounter - Bobbi Day - 12/21/2021 4:17 PM EDT Images from the original note were not included. Patient records received via electronic fax. Uploaded to [employer]. Bobbi Day documented in this [facility]09-27-2022 Miscellaneous Notes* Telephone Encounter - Bobbi Day - 12/07/2021 2:04 PM EDT Patient records received via electronic fax. Uploaded to [employer] / [employer] Bobbi Day documented in this [facility]04-28-2022 Miscellaneous Notes* Telephone Encounter - Suman Garvin - 07/08/2021 4:17 PM EDT Images from the original note were not included. Outside medical records (INR report 07/08/2021) scanned into shared [employer]. documented in this [facility]04-15-2022 History of Present illness Narrative* Ruben Denton [...] (Hypertension) Dyslipidemia Atrial Fibrillation (Hcc) Atherosclerosis of [place] Coronary Artery of [place] Heart Without Angina Pectoris Diabetes Mellitus Type [...] furosemide, a statin. INR is managed by [facility] and is checked monthly. No problems with warfarin. Meds and allergies were reviewed/updated in [employer]. General - Well-developed, obese, no acute distress. [...] today in the office shows: NSR [id number] Low voltage P waves Impression and plan dictated separately; to be transcribed. Ruben Denton MD CC - Declan Swanson, DO This clinical note has been produced using speech recognition software and may contain errors related to that system including grammar, punctuation, spelling, gender and words and phrases that may beinappropriate. documented in this encounterElyria [facility] Hospital04-15-2022 History of Present illness Narrative* Sara Carlson APRN.BEND UP - 06/25/2021 1:25 PM EDT Images from the original note were not included. [facility] Department of Cardiovascular Medicine SECTION OF CLINICAL CARDIOLOGY OUTPATIENT VISIT DATE June 25, 2021 OUTPATIENT VISIT TYPE ESTABLISHED PRIMARY CARE PHYSICIAN: Declan Swanson ([place]) [address] [place] [address] CHIEF COMPLAINT: follow up HISTORY OF PRESENT ILLNESS: Mr. Davis is a 76 year old male who presents today for a cardiovascular medicine followed by Dr. Evans & Dr. Denton for non occlusive CAD , chronic diastolic heart failure, paroxysmal atrial fibrillation (s/p ablation 2019; [id number]: 3%; age, hypertension, diabetes type II), Other [...] failure, paroxysmal atrial fibrillation (s/p ablation 2019; [id number]: 3%; age, hypertension, diabetes type II), Other [...] with more than 50% of the total bsob-iy-qult time of the visit in counseling / coordination of care. CONTACT INFORMATION: Sara Carlson APRN.BEND UP, 06/25/21 [facility] Second Floor [address] [place] [address] documented in this encounterElyria [facility] Hospital03-31-2022 Miscellaneous Notes* Telephone Encounter - Suamn Garvin - 06/10/2021 1:12 PM EDT Images from the original note were not included. Outside medical records (INR results 06/10/2021) scanned into [employer] drive. documented in this encounterElyria [facility] Hospital03-22-2022 Miscellaneous Notes* Telephone Encounter - Alisha Gomez RN - 06/01/2021 4:26 PM EDT Message left. Yes, he needs EKG. Ordered. (Not sure why he has 2 appts. on same day with same dept). Alisha Gomez RN * Telephone Encounter - Angela Collazo - 05/31/2021 11:30 AM EDT May 31, 2021 Patient Name:PATIENT Jorge Davis Contact Information: [phone] Last visit with EP Provider: 09/18/2020 Reason for Call: Patient would like to know if he should be getting an EKG prior to his appointment06/25. Last EKG was 09/18/20. Physician: Feliz Lipscomb MD Thank you, Angela Collazo The patient was informed that our caregivers are afforded 72 business hours to review and respond telephone messages. documented in this encounterElyria [facility] Hospital03-10-2022 Evaluation note* Encounter Date Diagnosis Assessment [...] us and we will see him sooner. [facility] Other 02-09-2022 Miscellaneous Notes* Telephone Encounter - Jessika Escobar - 04/21/2021 4:00 PM EST Received outside records - uploaded to Scanned Documents in [employer] through [employer] Appointment on Visit date not found Last appointment with this provider 04/01/2021 Last OV in this dept 04/19/2019 Jessika Escobar documented in this encounterElyria [facility] HospitalEvaluation note* Diagnosis Atrial fibrillation, persistent (HCC)- Primary Atrial fibrillation documented in this encounter [facility]* Diagnosis Atrial fibrillation, persistent (HCC)- Primary Atrial fibrillation S/P ablation of atrial fibrillation Other postprocedural status Obesity, Class III, BMI >= 40 Morbid obesity Controlled type 2 diabetes mellitus without complication, without long-term current use of insulin (HCC) CHRISTIAN (obstructive sleep apnea) Obstructive sleep apnea (adult) (pediatric) Atherosclerosis of [place] coronary artery of [place] heart without angina pectoris Encounter for current long-term use of anticoagulants Long-term (current) use of anticoagulants documented in this encounter [facility]* Diagnosis Acute on chronic diastolic heart failure (HCC)- Primary Acute on chronic diastolic heart failure Primary hypertension Unspecified essential hypertension documented in this encounter [facility] [place] [facility]* Diagnosis Chronic diastolic heart failure (HCC)- Primary Chronic diastolic heart failure Paroxysmal atrial fibrillation (HCC) Atrial fibrillation Coronary artery disease involving [place] coronary artery of [place] heart without angina pectoris Controlled type 2 diabetes mellitus without complication, without long-term current use of insulin (HCC) [facility] [place] noteNo InformationNortArgus Other Evaluation note* Diagnosis Atrial fibrillation, persistent [...] BMI >= 40 Morbid obesity Atherosclerosis of [place] coronary artery of [place] heart without angina pectoris [facility] [place] noteNoFactabase Other Evaluation noteNo assessment information available [facility] Work Phone: evalugugbv note* Diagnosis Chronic diastolic heart failure (HCC)- Primary Chronic diastolic heart failure Atrial fibrillation, persistent (HCC) Atrial fibrillation Obesity, Class III, 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) Morbid obesity Mixed hyperlipidemia [facility] in [facility] [place] [facility]* Diagnosis Atrial fibrillation, persistent (HCC)- Primary Atrial fibrillation S/P ablation of atrial fibrillation Other postprocedural status On continuous oral anticoagulation Long-term (current) use of anticoagulants documented in this encounter [facility] note* Diagnosis Onset Date Resolution Status ASHD (arteriosclerotic heart disease) acute Acute bronchitis due to other specified organisms noneactive Contact dermatitis acute Type 2 diabetes mellitus with hyperglycemia acute [facility] Work Phone: Evaluation note* Diagnosis Onset [...] acute Medicare annual wellness visit, subsequent noneactive [facility] Work Phone: evaluation note* Diagnosis Chronic diastolic heart failure (HCC)- Primary Chronic diastolic heart failure Atrial fibrillation, persistent (HCC) Atrial fibrillation Obesity, Class III, 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) Morbid obesity Mixed hyperlipidemia Coronary artery disease involving [place] coronary artery of [place] heart without angina pectoris [facility] Diagnosis Onset Date Resolution Status Afib acute ASHD (arteriosclerotic heart disease) acute Hypercholesteremia acute CHRISTIAN (obstructive sleep apnea) acute Traumatic hematoma of right lower leg with infection acute Type 2 diabetes mellitus with diabetic polyneuropathy acute Type 2 diabetes mellitus with hyperglycemia acute Venous insufficiency of both lower extremities acute [facility] Work Phone: Evaluation note* Diagnosis Primary hypertension- Primary Unspecified essential hypertension Atherosclerosis of [place] coronary artery of [place] heart without angina pectoris Atrial fibrillation, persistent (HCC) Atrial fibrillation Chronic diastolic heart failure (HCC) Chronic diastolic heart failure Mixed hyperlipidemia documented in this encounter [facility] general Narrative - Reported* Type Description Date [...] porstate sx 2017 Hospitalization History see above [place] Other History general Narrative - Reported* Type [...] History Prostate surgery 2016 Surgical History Fistulotomy 1975 Surgical History Partial [...] heart cath 06/2015 Hospitalization History see above [facility] Other History [facility] - [facility] [employer] Other Reason for referral (narrative)* Outpatient Procedure (Routine) - Pending Review Specialty Diagnoses / Procedures Referred By Carmine mckee Referred To Contact [facility] Diagnoses Atrial fibrillation, persistent (HCC) Procedures ECG COMPLETE ECG ROUTINE ECG W/LEAST 12 LDS W/I&R Ruben Denton MD [address] [place] [address] [facility] [address] [address] [place] [address] Referral ID Status Reason Start Date Expiration Date Visits Requested Visits Authorized [id number] Pending Review Auto-Generat ed Referral 06/01/2021 06/01/2022 1 1 [facility] [place] for referral (narrative)* Outpatient Procedure (Routine) - Closed Specialty Diagnoses / Procedures Referred By Carmine mckee Referred To Contact [facility] Diagnoses Atrial fibrillation, persistent (HCC) Procedures ECG COMPLETE ECG ROUTINE ECG W/LEAST 12 LDS W/I&R Ruben Denton MD [address] [facility] [address] [address] [address] [place] [address] Referral ID Status Reason Start Date Expiration Date V isits Requested Visits Authorized [id number] Closed Auto-Generate d Referral 06/25/2021 06/25/2022 1 1 [facility] [place] for referral (narrative)* Outpatient Procedure (Routine) - Authorized Specialty Diagnoses / Procedures Referred By Contac t Referred To Contact [facility] Diagnoses Chronic diastolic heart failure (HCC) Procedures ECHO ECHO TTHRC R-T 2D W/WOM-MODE COMPL SPEC&[place] [address] [place] [address] [address] Referral ID Status Reason Start Date Expiration Date Visits Requested Visits Authorized [id number] Authorized Auto-Generat ed Referral 12/31/2022 1 1 [facility] [place] for referral (narrative)* Outpatient Procedure (Routine) - Pending Review Specialty Diagnoses / Procedures Referred By Contac t Referred To Contact [facility] Diagnoses Atrial fibrillation, persistent (HCC) Procedures ECG COMPLETE ECG ROUTINE ECG W/LEAST 12 LDS W/I&R Ruben Denton MD [address] [place] [address] [address] Referral ID Status Reason Start Date Expiration Date Visits Requested Visits Authorized [id number] Pending Review Auto-Generat ed Referral 06/24/2022 06/24/2023 1 1 T [facility] [place] for referral (narrative)* Outpatient Procedure (Routine) - Authorized Specialty Diagnoses / Procedures Referred By Contac t Referred To Contact [facility] Diagnoses Chronic diastolic heart failure (HCC) Procedures ECHO ECHO TTHRC R-T 2D W/WOM-MODE COMPL SPEC&[place] [address] [place] [address] [facility] [place] [address] [place] [address] Referral ID Status Reason Start Date Expiration Date Visits Requested Visits Authorized [id number] Authorized Auto-Generat ed Referral 06/05/2023 06/04/2024 1 1 [facility] Summary Purpose Family History Relationship Condition [...] Documents on File Type Date Recorded 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 Note HNO ID: [id number] Author: Sarah waters (Venus) Williams Service: ? Author Type: Band Tumbler Type: Anesthesia Procedure Notes Filed: 10/23/2019 9:12 [...] not included)... Procedure Findings Note HNO ID: [id number] Author: Sarah Kramer (Aa) Service: ? 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 April 23 7:47am M79.642 - Pain in left hand April 8:00am Reason for Visit Admit Date Afib February 22, 2024 9:45am Warfarin anticoagulation February 22, 2024 9:45am Acute sinusitis February 22, 2024 9:45am 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 April 23, 2024 7:47am Chief Complaint Admit Date Adult Risk Stratification February 202023 10:02am sinus infection/cold for 2-3 weeks-HIGH RISK February 22, 2024 9:45am 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 April 23 7:47am M79.642 - Pain in left hand April 8:00am high risk 4 month f/u May 07 9:50am Reason for Visit Admit Date Afib February 22, 2024 9:45am Warfarin anticoagulation February 22, 2024 9:45am Acute sinusitis February 22, 2024 9:45am 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 April 23, 2024 7:47am Afib May 07, 2024 9:50am ASHD (arteriosclerotic heart disease) Fe bruary 2024 9:50am Hypercholesteremia May 07, 2024 9:50am CHRISTIAN (obstructive sleep apnea) April 142024 9:50am Pulmonary nodule, right May 07, 2 025 9:50am Type 2 diabetes mellitus with diabetic p olyneuropathy May 07, 2024 9:50am Type 2 diabetes mellitus with hyperglyce marion May 07, 2024 9:50am Venous insufficiency of both lower extre mities May 07, 2024 9:50am Chief Complaint Admit Date 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 April 23 7:47am M79.642 - Pain in left hand April 8:00am high risk 4 month f/u May 07 9:50am 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 June 12, 2024 9:01am Reason for Visit Admit Date 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 April 23, 2024 7:47am ASHD (arteriosclerotic heart disease) Fe bru2024 9:50am Atrial fibrillation May 07, 2024 9:50am Hypercholesteremia May 07, 2024 9:50am Obesity May 07, 2024 9:50am CHRISTIAN (obstructive sleep apnea) April 142024 9:50am Pulmonary nodule, right May 07, 2 025 9:50am Type 2 diabetes mellitus with diabetic p olyneuropathy May 07, 2024 9:50am Type 2 diabetes mellitus with hyperglyce marion May 07, 2024 9:50am Venous insufficiency of both lower extre mities May 07, 2024 9:50am Ascending aortic aneurysm June 12 9:01am ASHD (arteriosclerotic heart disease) Ap 2024 9:01am Atrial fibrillation June 12, 2024 9:01 am Hypercholesteremia June 12, 2024 9:01 am CHRISTIAN (obstructive sleep apnea) June 12, 2024 9:01am Pulmonary hypertension June 12, 2024 9 :01am Type 2 diabetes mellitus with hyperglyce marion June 12, 2024 9:01am Venous insufficiency of both lower extre mities June 12, 2024 9:01am Additional Source Comments (unrecognized sect ion and content) No Status Records FoundNo Status Records FoundNo Status Records FoundNo Status Records FoundNo Status Records FoundNo Status Records FoundNo Status Records Found INFORMATION SOURCE (unrecogn ized section and content) DATE CREATED AUTHOR 12/24/2019 [facility] DATE CREATED AUTHOR AUTHOR'S ORGANIZ ATION 02/29/2020 [facility] DATE CREATED AUTHOR AUTHOR'S ORGANIZ ATION 08/19/2022 [facility] DATE CREATED AUTHOR AUTHOR'S ORGANIZ ATION 10/06/2023 [facility] DATE CREATED AUTHOR AUTHOR'S ORGANIZ ATION 02/15/2024 [facility] DATE CREATED AUTHOR AUTHOR'S ORGANIZ ATION 02/24/2024 [facility] DATE CREATED AUTHOR AUTHOR'S ORGANIZ ATION 04/24/2024 [facility] Source Comments (unrecognize d section and content) In the event this informatio n is protected by the Federal Confidentiality of Alcohol and Drug Abuse Patient Records regulations: The Federal rules restrict any use of the information to criminally investigate or prosecute any alcohol or drug abuse patient.[facility] HospitalIn the event this information is protected by the Federal Confidentiality of Alcohol and Drug Abuse Patient Records regulations: The Federal rules restrict any use of the information to criminally investigate or prosecute any alcohol or drug abuse patient.[facility] HospitalIn the event this information is protected by the Federal Confidentiality of Alcohol and Drug Abuse Patient Records regulations: The Federal rules restrict any use of the information to criminally investigate or prosecute any alcohol or drug abuse patient.[facility] HospitalIn the event this information is protected by the Federal Confidentiality of Alcohol and Drug Abuse Patient Records regulations: The Federal rules restrict any use of the information to criminally investigate or prosecute any alcohol or drug abuse patient.[facility] HospitalIn the event this information is protected by the Federal Confidentiality of Alcohol and Drug Abuse Patient Records regulations: The Federal rules restrict any use of the information to criminally investigate or prosecute any alcohol or drug abuse patient.[facility] HospitalIn the event this information is protected by the Federal Confidentiality of Alcohol and Drug Abuse Patient Records regulations: The Federal rules restrict any use of the information to criminally investigate or prosecute any alcohol or drug abuse patient.[facility] HospitalIn the event this information is protected by the Federal Confidentiality of Alcohol and Drug Abuse Patient Records regulations: The Federal rules restrict any use of the information to criminally investigate or prosecute any alcohol or drug abuse patient.[facility] HospitalIn the event this information is protected by the Federal Confidentiality of Alcohol and Drug Abuse Patient Records regulations: The Federal rules restrict any use of the information to criminally investigate or prosecute any alcohol or drug abuse patient.[facility] HospitalIn the event this information is protected by the Federal Confidentiality of Alcohol and Drug Abuse Patient Records regulations: The Federal rules restrict any use of the information to criminally investigate or prosecute any alcohol or drug abuse patient.[facility] HospitalIn the event this information is protected by the Federal Confidentiality of Alcohol and Drug Abuse Patient Records regulations: The Federal rules restrict any use of the information to criminally investigate or prosecute any alcohol or drug abuse patient.[facility] HospitalIn the event this information is protected by the Federal Confidentiality of Alcohol and Drug Abuse Patient Records regulations: The Federal rules restrict any use of the information to criminally investigate or prosecute any alcohol or drug abuse patient.[facility] HospitalIn the event this information is protected by the Federal Confidentiality of Alcohol and Drug Abuse Patient Records regulations: The Federal rules restrict any use of the information to criminally investigate or prosecute any alcohol or drug abuse patient.[facility] HospitalIn the event this information is protected by the Federal Confidentiality of Alcohol and Drug Abuse Patient Records regulations: The Federal rules restrict any use of the information to criminally investigate or prosecute any alcohol or drug abuse patient.[facility] HospitalIn the event this information is protected by the Federal Confidentiality of Alcohol and Drug Abuse Patient Records regulations: The Federal rules restrict any use of the information to criminally investigate or prosecute any alcohol or drug abuse patient.[facility] HospitalIn the event this information is protected by the Federal Confidentiality of Alcohol and Drug Abuse Patient Records regulations: The Federal rules restrict any use of the information to criminally investigate or prosecute any alcohol or drug abuse patient.[facility] HospitalIn the event this information is protected by the Federal Confidentiality of Alcohol and Drug Abuse Patient Records regulations: The Federal rules restrict any use of the information to criminally investigate or prosecute any alcohol or drug abuse patient.[facility] HospitalIn the event this information is protected by the Federal Confidentiality of Alcohol and Drug Abuse Patient Records regulations: The Federal rules restrict any use of the information to criminally investigate or prosecute any alcohol or drug abuse patient.[facility] HospitalIn the event this information is protected by the Federal Confidentiality of Alcohol and Drug Abuse Patient Records regulations: The Federal rules restrict any use of the information to criminally investigate or prosecute any alcohol or drug abuse patient.[facility] HospitalIn the event this information is protected by the Federal Confidentiality of Alcohol and Drug Abuse Patient Records regulations: The Federal rules restrict any use of the information to criminally investigate or prosecute any alcohol or drug abuse patient.[facility] HospitalIn the event this information is protected by the Federal Confidentiality of Alcohol and Drug Abuse Patient Records regulations: The Federal rules restrict any use of the information to criminally investigate or prosecute any alcohol or drug abuse patient.[facility] HospitalIn the event this information is protected by the Federal Confidentiality of Alcohol and Drug Abuse Patient Records regulations: The Federal rules restrict any use of the information to criminally investigate or prosecute any alcohol or drug abuse patient.[facility] HospitalIn the event this information is protected by the Federal Confidentiality of Alcohol and Drug Abuse Patient Records regulations: The Federal rules restrict any use of the information to criminally investigate or prosecute any alcohol or drug abuse patient.[facility] HospitalIn the event this information is protected by the Federal Confidentiality of Alcohol and Drug Abuse Patient Records regulations: The Federal rules restrict any use of the information to criminally investigate or prosecute any alcohol or drug abuse patient.[facility] HospitalIn the event this information is protected by the Federal Confidentiality of Alcohol and Drug Abuse Patient Records regulations: The Federal rules restrict any use of the information to criminally investigate or prosecute any alcohol or drug abuse patient.[facility] HospitalIn the event this information is protected by the Federal Confidentiality of Alcohol and Drug Abuse Patient Records regulations: The Federal rules restrict any use of the information to criminally investigate or prosecute any alcohol or drug abuse patient.[facility] HospitalIn the event this information is protected by the Federal Confidentiality of Alcohol and Drug Abuse Patient Records regulations: The Federal rules restrict any use of the information to criminally investigate or prosecute any alcohol or drug abuse patient.[facility] HospitalIn the event this information is protected by the Federal Confidentiality of Alcohol and Drug Abuse Patient Records regulations: The Federal rules restrict any use of the information to criminally investigate or prosecute any alcohol or drug abuse patient.[facility] HospitalIn the event this information is protected by the Federal Confidentiality of Alcohol and Drug Abuse Patient Records regulations: The Federal rules restrict any use of the information to criminally investigate or prosecute any alcohol or drug abuse patient.[facility] HospitalIn the event this information is protected by the Federal Confidentiality of Alcohol and Drug Abuse Patient Records regulations: The Federal rules restrict any use of the information to criminally investigate or prosecute any alcohol or drug abuse patient.[facility] HospitalIn the event this information is protected by the Federal Confidentiality of Alcohol and Drug Abuse Patient Records regulations: The Federal rules restrict any use of the information to criminally investigate or prosecute any alcohol or drug abuse patient.[facility] HospitalIn the event this information is protected by the Federal Confidentiality of Alcohol and Drug Abuse Patient Records regulations: The Federal rules restrict any use of the information to criminally investigate or prosecute any alcohol or drug abuse patient.[facility] HospitalIn the event this information is protected by the Federal Confidentiality of Alcohol and Drug Abuse Patient Records regulations: The Federal rules restrict any use of the information to criminally investigate or prosecute any alcohol or drug abuse patient.[facility] HospitalIn the event this information is protected by the Federal Confidentiality of Alcohol and Drug Abuse Patient Records regulations: The Federal rules restrict any use of the information to criminally investigate or prosecute any alcohol or drug abuse patient.[facility] HospitalIn the event this information is protected by the Federal Confidentiality of Alcohol and Drug Abuse Patient Records regulations: The Federal rules restrict any use of the information to criminally investigate or prosecute any alcohol or drug abuse patient.[facility] HospitalIn the event this information is protected by the Federal Confidentiality of Alcohol and Drug Abuse Patient Records regulations: The Federal rules restrict any use of the information to criminally investigate or prosecute any alcohol or drug abuse patient.[facility] HospitalIn the event this information is protected by the Federal Confidentiality of Alcohol and Drug Abuse Patient Records regulations: The Federal rules restrict any use of the information to criminally investigate or prosecute any alcohol or drug abuse patient.[facility] HospitalIn the event this information is protected by the Federal Confidentiality of Alcohol and Drug Abuse Patient Records regulations: The Federal rules restrict any use of the information to criminally investigate or prosecute any alcohol or drug abuse patient.[facility] HospitalIn the event this information is protected by the Federal Confidentiality of Alcohol and Drug Abuse Patient Records regulations: The Federal rules restrict any use of the information to criminally investigate or prosecute any alcohol or drug abuse patient.[facility] HospitalIn the event this information is protected by the Federal Confidentiality of Alcohol and Drug Abuse Patient Records regulations: The Federal rules restrict any use of the information to criminally investigate or prosecute any alcohol or drug abuse patient.[facility] HospitalIn the event this information is protected by the Federal Confidentiality of Alcohol and Drug Abuse Patient Records regulations: The Federal rules restrict any use of the information to criminally investigate or prosecute any alcohol or drug abuse patient.[facility] HospitalIn the event this information is protected by the Federal Confidentiality of Alcohol and Drug Abuse Patient Records regulations: The Federal rules restrict any use of the information to criminally investigate or prosecute any alcohol or drug abuse patient.[facility] HospitalIn the event this information is protected by the Federal Confidentiality of Alcohol and Drug Abuse Patient Records regulations: The Federal rules restrict any use of the information to criminally investigate or prosecute any alcohol or drug abuse patient.[facility] HospitalIn the event this information is protected by the Federal Confidentiality of Alcohol and Drug Abuse Patient Records regulations: The Federal rules restrict any use of the information to criminally investigate or prosecute any alcohol or drug abuse patient.[facility] HospitalIn the event this information is protected by the Federal Confidentiality of Alcohol and Drug Abuse Patient Records regulations: The Federal rules restrict any use of the information to criminally investigate or prosecute any alcohol or drug abuse patient.[facility] HospitalIn the event this information is protected by the Federal Confidentiality of Alcohol and Drug Abuse Patient Records regulations: The Federal rules restrict any use of the information to criminally investigate or prosecute any alcohol or drug abuse patient.[facility] HospitalIn the event this information is protected by the Federal Confidentiality of Alcohol and Drug Abuse Patient Records regulations: The Federal rules restrict any use of the information to criminally investigate or prosecute any alcohol or drug abuse patient.[facility] HospitalIn the event this information is protected by the Federal Confidentiality of Alcohol and Drug Abuse Patient Records regulations: The Federal rules restrict any use of the information to criminally investigate or prosecute any alcohol or drug abuse patient.[facility] HospitalIn the event this information is protected by the Federal Confidentiality of Alcohol and Drug Abuse Patient Records regulations: The Federal rules restrict any use of the information to criminally investigate or prosecute any alcohol or drug abuse patient.[facility] Reason for Visit (unrecogniz ed section [...] Reason Comments Received Outside Medical Records INR Reason Comments Established Patient Reason Comments Results labs Reason Comments Results INR Care Teams (unrecognized sec tion and content) Team Status: Active Member Role Status Dates Declan Swanson DO Primary Care Provider Active Team Status: Inactive Member Role Status Dates Declan Swanson DO Primary Care Provider Active Start: April 23, 2024 End: April 23, 2024 Ruben Diane MD Attending Provider Active Star t: April 23, 2024 End: April 23, 2024 Team Status: Inactive Member Role Status Dates Ruben Diane MD Attending Provider Active Star t: April 23, 2024 End: April 23, 2024 Declan Swanson DO Primary Care Provider Active Start: April 23, 2024 End: April 23, 2024 Team Status: Inactive Member Role Status Nayan Swanson DO Primary Care Provide r, Attending Provider Active Start: May 07, 2024 End: May 07, 2024 Team Status: Inactive Member Role Status Nayan Swanson DO Primary Care Provide r, Attending Provider Active Start: June 12, 2024 End: June 12, 2024 Team Status: Active Member Role Status Nayan Swanson DO Primary Care Provider Active Team Status: Active Member Role Status Nayan Swanson DO Primary Care Provider Active Start: December 05, 2023 Alix Mims MD Attending Provider Active Sta rt: December 05, 2023 Team Status: Active Member Role Status Nayan Swanson DO Primary Care Provider Active Start: December 06, 2023 Shaikh Jose Alberto MD Attending Provider Active Sta rt: December 06, 2023 Team Status: Active Member Role Status Nayan Swanson DO Primary Care Provider Active Start: December 07, 2023 Shaikh Jose Alberto MD Attending Provider Active Sta rt: December 07, 2023 Team Status: Active Member Role Status Nayan Swanson DO Primary Care Provider Active Start: December 08, 2023 Venkat Evans MD Attending Provider Active Start : December 08, 2023 Team Status: Active Member Role Status Nayan Swanson DO Primary Care Provider Active Start: December 18, 2023 HOMERO German Attending Provider Active St art: December 18, 2023 Team Status: Inactive Member Role Status Nayan Swanson DO Primary Care Provide r, Attending Provider Active Start: December 18, 2023 End: December 18, 2023 Riprap Worker Relationship Specialty Start Date End Date Declan Swanson DO PCP - General Internal Medicine 06/04/13 Riprap Worker Relationship Specialty Start Date End Date Declan Swanson DO PCP - General Internal Medicine 06/04/13 [employer]iprap Worker Relationship Specialty Start Date End Date Declan Swanson DO PCP - General Internal Medicine 06/04/13 [employer]iprap Worker Relationship Specialty Start Date End Date Declan Swanson DO PCP - General Internal Medicine 06/04/13 Riprap Worker Relationship Specialty Start Date End Date Declan Swanson DO PCP - General Internal Medicine 06/04/13 Riprap Worker Relationship Specialty Start Date End Date Declan Swanson DO PCP - General Internal Medicine 06/04/13 Riprap Worker Relationship Specialty Start Date End Date Declan Swanson DO PCP - General Internal Medicine 06/04/13 Riprap Worker Relationship Specialty Start Date End Date Declan Swanson DO PCP - General Internal Medicine 06/04/13 Riprap Worker Relationship Specialty Start Date End Date Declan Swanson DO PCP - General Internal Medicine 06/04/13 [employer]iprap Worker Relationship Specialty Start Date End Date Declan Swanson DO PCP - General Internal Medicine 06/04/13 Team Status: Inactive Member Role Status Dates Declan Swanson DO Primary Care Provider Active Bruce Shine II, MD Attending Provider Active Riprap Worker Relationship Specialty Start Date End Date Declan Swanson DO PCP - General Internal Medicine 06/04/13 Team Status: Inactive Member Role Status Dates Declan Swanson DO Primary Care Provider Active Ruben Celis MD Attending Provider Active [employer]iprap Worker Relationship Specialty Start Date End Date Declan Swanson DO PCP - General Internal Medicine 06/04/13 [employer]iprap Worker Relationship Specialty Start Date End Date Declan Swanson DO PCP - General Internal Medicine 06/04/13 [employer]iprap Worker Relationship Specialty Start Date End Date Declan Swanson DO PCP - General Internal Medicine 06/04/13 Team Status: Inactive Member Role Status Dates Declan Swanson DO Primary Care Provide r, Attending Provider Active Start: June 23, 2023 End: June 23, 2023 Riprap Worker Relationship Specialty Start Date End Date Declan Swanson DO PCP - General Internal Medicine 06/04/13 [employer]iprap Worker Relationship Specialty Start Date End Date Declan [...] August 21, 2023 End: August 21, 2023 Riprap Worker Relationship Specialty Start Date End Date Declan Swanson DO PCP - General Internal Medicine 06/04/13 Riprap Worker Relationship Specialty Start Date End Date Declan Swanson DO PCP - General Internal Medicine 06/04/13 [employer]iprap Worker Relationship Specialty Start Date End Date Declan Swanson DO PCP - General Internal Medicine 06/04/13 Venkat Evans V, MD [address] [place] [address] Primary Staff Physician Cardiology 01/24/24 Riprap Worker Relationship Specialty Start Date End Date Declan Swanson DO PCP - General Internal Medicine 06/04/13 Venkat Evans V, MD [address] [place] [address] Primary Staff Physician Cardiology 01/24/24 Riprap Worker Relationship Specialty Start Date End Date Declan Swanson DO PCP - General Internal Medicine 06/04/13 Venkat Evans V, MD [address] [place] [address] Primary Staff Physician Cardiology 01/24/24 Riprap Worker Relationship Specialty Start Date End Date Declan Swanson DO PCP - General Internal Medicine 06/04/13 Venkat Evans V, MD [address] [place] [address] Primary Staff Physician Cardiology 01/24/24 Team Status: Active Member Role Status Dates Declan Swanson DO Primary Care Provider Active Start: February 13, 2024 Venkat Evans MD Attending Provider Active Start : February 13, 2024 Team Status: Active Member Role Status Dates Declan Swanson DO Primary Care Provide r, Attending Provider Active Start: February 21, 2024 Team Status: Inactive Member Role Status Dates Declan Swanson DO Primary Care Provide r, Attending Provider Active Start: February 22, 2024 End: February 22, 2024 Team Status: Inactive Member Role Status Dates Declan Swanson DO Primary Care Provider Active Start: April 23, 2024 End: April 23, 2024 Ruben Diane MD Attending Provider Active Star t: April 23, 2024 End: April 23, 2024 Team Status: Active Member Role Status Dates Ruben Diane MD Attending Provider Active Star t: April 23, 2024 Declan Swanson DO Primary Care Provider Active Start: April 23, 2024 Team Status: Inactive Member Role Status Dates Ruben Diane MD Attending Provider Active Star t: April 23, 2024 End: April 23, 2024 Declan Swanson DO Primary Care Provider Active Start: April 23, 2024 End: April 23, 2024 Team Status: Inactive Member Role Status Dates Declan Swanson DO Primary Care Provide r, Attending Provider Active Start: May 07, 2024 End: May 07, 2024 Team Status: Inactive Member Role Status Nayan Declan Swanson DO Primary Care Provide r, Attending Provider Active Start: June 12, 2024 End: June 12, 2024 Goals (unrecognized section and content) Goals may [...] BE BASED ON THE PRIMARY CLINICAL RECORDS. [employer] provides no warranty or guarantee of the accuracy or completeness of information in this document.
[2024-06-15 07:09] LABS: Basophils Absolute Auto 0.1 10^3/uL (0.0-0.1); Eosinophils Absolute Auto 0.1 10^3/uL (0.0-0.7); Eosinophils Percent Auto 1.3 % (0.9-7.0); Hemoglobin 15.1 g/dL (14.0-18.0); Immature Granulocytes Abs Auto 0.02 10^3/uL (0.00-0.03); Immature Granulocytes Pct Auto 0.3 % (0.0-0.5); Lymphocytes Percent Auto 27.8 % (20.5-60.0); Mean Corpuscular HGB Conc 31.5 g/dL (29.9-35.2); Mean Corpuscular Hemoglobin 28.8 pg (25.9-34.0); Mean Corpuscular Volume 91.4 fL (80.0-94.0); Mean Platelet Volume 10.4 fL (9.5-13.5); Monocytes Absolute Auto 0.6 10^3/uL (0.3-0.8); Neutrophils Absolute Auto 4.3 10^3/uL (1.4-6.5); Neutrophils Percent Auto 60.6 % (43.0-75.0); Platelet Count 197 10^3/uL (150-450); Red Blood Count 5.25 10^6/uL (4.70-6.10); Red Cell Distribution Width 15.7 % (11.0-15.0); White Blood Count 7.1 10^3/uL (4.0-11.0)
[2024-06-15 07:21] LABS: Creatinine Urine Random 146.61 mg/dL (20.00-300.00)
[2024-06-15 07:33] LABS: Microalbum Creatinine Ratio Ur 411.2 mg/g (0.0-29.9); Microalbumin Urine Random 60.3 mg/dL (<=30.0)
[2024-06-15 07:34] LABS: Estimated Average Glucose 134 mg/dL; Glycohemoglobin A1C 6.3 % (4.5-6.2)
[2024-06-15 08:12] LABS: Alanine Aminotransferase 18 U/L (16-63); Albumin Globulin Ratio 0.9; Albumin Level 3.8 g/dL (3.4-5.0); Alkaline Phosphatase 106 U/L (46-116); Anion Gap 12.8; Aspartate Amino Transferase 19 U/L (15-37); BUN Creatinine Ratio 17.6; Bilirubin Total 0.9 mg/dL (0.2-1.0); Calcium 9.1 mg/dL (8.5-10.1); Carbon Dioxide 30.1 mmol/L (21.0-32.0); Chloride 103 mmol/L (98-107); Chol HDL Ratio 2.2; Cholesterol 124 mg/dL (<=200); Estimated GFR (African America >60 (>=60 mL/min/1.73m^2); Estimated GFR (Non-African Ame >60 (>=60 mL/min/1.73m^2); Globulin 4.1 g/dL; Glucose 108 mg/dL (74-106); HDL Cholesterol 56 mg/dL (40-60); Potassium 3.9 mmol/L (3.5-5.1); Sodium 142 mmol/L (136-145); Total Protein 7.9 g/dL (6.4-8.2); Triglycerides 50 mg/dL (<=150)
== END 2024-06-15 06:42 | disposition home or self-care (01) ==
LOC: LAB 06:43
PROVIDERS: PCP Internal Medicine; Visit Provider Internal Medicine
DX: E78.00 Pure hypercholesterolemia, unspecified (principal); E11.42 Type 2 diabetes mellitus with diabetic polyneuropathy; I48.21 Permanent atrial fibrillation; E11.65 Type 2 diabetes mellitus with hyperglycemia; I25.10 Atherosclerotic heart disease of native coronary artery without angina pectoris
CPT/HCPCS: 36415; 80053; 80061; 82043; 82570; 83036; 85025

== ENCOUNTER 2024-07-11 04:38 | Outpatient (RCR) | payer MEDICARE, OTHER, SELFPAY | END 2024-08-10 07:08 | disposition home or self-care (01) | LOC: MM 04:38 | PROVIDERS: PCP Internal Medicine; Visit Provider Internal Medicine | DX: Z51.81 Encounter for therapeutic drug level monitoring (principal); Z79.01 Long term (current) use of anticoagulants | CPT/HCPCS: 85610; G0463 ==

== ENCOUNTER 2024-08-11 07:34 | Outpatient (RCR) | payer MEDICARE, OTHER, SELFPAY | END 2024-09-05 14:36 | disposition home or self-care (01) | LOC: MM 07:34 | PROVIDERS: PCP Internal Medicine; Visit Provider Internal Medicine | DX: Z51.81 Encounter for therapeutic drug level monitoring (principal); Z79.01 Long term (current) use of anticoagulants; I48.91 Unspecified atrial fibrillation | CPT/HCPCS: 85610; G0463 ==

== ENCOUNTER 2024-09-10 02:25 | Outpatient (RCR) | payer MEDICARE, OTHER, SELFPAY | END 2024-10-10 16:35 | disposition home or self-care (01) | LOC: MM 02:25 | PROVIDERS: PCP Internal Medicine; Visit Provider Internal Medicine | DX: Z51.81 Encounter for therapeutic drug level monitoring (principal); Z79.01 Long term (current) use of anticoagulants; I48.91 Unspecified atrial fibrillation | CPT/HCPCS: 85610; G0463 ==

== ENCOUNTER 2024-09-17 11:17 | Outpatient (OUT) | payer MEDICARE, OTHER, SELFPAY ==
--- OUTSIDE RECORDS SUMMARY | 2024-09-10 14:12 | XMS_ITS ---
Author Name Auto Generated Organization OHIP Care Team Providers Care Director Risk Name Role Phone GARRICK INTERIANO Referring Unavailable DECLAN BRUCE Primary Care Unavailable GARRICK INTERIANO Attending Unavailable GARRICK INTERIANO Referring Unavailable DECLAN BRUCE Primary Care Unavailable ALIX BARRIOS Attending Unavailable KIKI DECLAN E Primary Care Unavailable GARRICK INTERIANO Referring Unavailable DECLAN BRUCE E Primary Care Unavailable GARRICK INTERIANO Referring Unavailable DECLAN BRUCE E Primary Care Unavailable Ruben Diane Admitting Unavailable Ruben Diane Attending Unavailable Declan Bruce Primary Care Unavailable Yvan Mercedes Admitting Yvan Izquierdo Attending Declan Fontanez Primary Care Unavailable CALEB TREVIZO Attending Unavailable JOHN CHURCHILL Attending Unavailable JOHN CHURCHILL Attending Unavailable PROBLEMS DATE TYPE CONDITION / CODE ATTENDING STATUS [facility] 07/31/2024 Unknown Permanent atrial fibrillation / I48.21(ICD-10) Yvan Mercedes [facility] 04/23/2024 Unknown Pain in left hernández d / M79.642(ICD-10) Ruben Diane Active [facility] 02/13/2024 Active Acute on chronic diastolic congestive heart failure (HCC) / I50.33(ICD-10) NA Active [facility] 10/23/2019 Active Atrial fibrillat ion, persistent (HCC) / I48.19(ICD-10) NA Active [facility] 06/05/2023 Active Chronic diastoli c heart failure (HCC) / I50.32(ICD-10) NA Active [facility] PROCEDURES No Procedure Records Found RESULTS FPG ECG *CARDIOLOGY ONLY* Observed: 07/12 1:03 PM Status: COMPLETED Source: [facility] [place] [address] Electrocardiograph Report Signed Patient: Jorge Davis MR#: [id number] 14 : 1945 Acct:[id number] Age/Sex: 79 / M ADM Date: 07/31/24 [facility]: [facility] Room: Type: [facility] Attending Dr: Yvan Mercedes MD Ordering Provider: Yvan Mercedes MD Date of Service: 07/31/24 ECG/FPG ECG *CARDIOLOGY ONLY*: I48.21 - Permanent atrial fibrillation Copies to: Test Reason : Blood Pressure : */* mmHG Vent. Rate : 81 BPM Atrial Rate : 49 BPM P-R Int : * ms QRS Dur : 110 ms QT Int : 420 ms P-R-T Axes : * -48 51 degrees QTcB Int : 487 ms Normal sinus rhythm Low voltage QRS Incomplete right bundle branch block Left anterior fascicular block Septal infarct , age undetermined Abnormal ECG Confirmed by Yvan Mercedes ([id number]) on 07/31/2024 2:59:00 PM Referred By: Electronically Signed By: Yvan Mercedes Transcribed By: MUS Signed By Yvan Mercedes MD 07/31/24 1459 CNPN Observed: 06/26/2024 12:00 AM Status: COMPLETED Source: [facility] Telephone (CARDMN) JORGE DAVIS ([id number]) 1945 M Date Time Provider Department 06/26/24 RUBEN DENTON During your visit today, we recorded the following information about you: Peggy Gates 06/26/2024 9:07 AM Signed Uploaded INR lab results FAX into scanned documents and EP shared drive. [employer] IC 955 Peggy Gates 07/10/2024 3:52 PM Signed Uploaded INR results form [facility] FAX into scanned documents and EP shared drive. [employer] IC 955 Allergies As of Date: 06/26/2024 (No Known Allergies) Date Reviewed: 02/13/2024 Reviewed by: Emeli Lui OCCA - Fully Assessed Prescriptions as of 07/11/2024 - empagliflozin (JARDIANCE) 10 mg tablet Take [...] once daily. Problem List As Of Date 06/26/2024 Noted Resolved CHRISTIAN (obstructive sleep apnea) [G47.33] 01/07/2014 HTN (hypertension) [I10] 01/07/2014 Dyslipidemia [E78.5] 01/07/2014 Atrial fibrillation (HCC) [I48.91] 07/08/2014 Atherosclerosis of twenty-nine palms coronary artery of na*07/10/2015 Diabetes mellitus type 2, controlled, without c*07/10/2015 Atrial fibrillation, persistent (HCC) [I48.19] 07/22/2015 Paroxysmal atrial fibrillation (HCC) [I48.0] 12/04/2015 Paroxysmal atrial flutter (HCC) [I48.92] 05/30/2018 Obesity, Class III, BMI >= 40 [E66.813] 10/23/2019 Chronic diastolic heart failure (HCC) [I50.32] 06/05/2023 Mixed hyperlipidemia [E78.2] 06/05/2023 Encounter Status:Closed by PEGGY GATES on 07/11/24 JOSE Observed: 05/01/2024 12:00 AM Status: COMPLETED Source: [facility] Telephone (CARDMN) JORGE DAVIS ([id number]) 1945 M Date Time Provider Department 05/01/24 RUBEN DENTON [facility] During your visit today, we recorded the following information about you: Peggy Gates 05/01/2024 3:33 PM Signed Uploaded LAB results (INR) FAX into scanned documents and [facility]. Peggy IC 955 Allergies As of Date: 05/01/2024 (No Known Allergies) Date Reviewed: 02/13/2024 Reviewed by: Emeli Lui OCCA - Fully Assessed Prescriptions as of 07/11/2024 - empagliflozin (JARDIANCE) 10 mg tablet Take [...] once daily. Problem List As Of Date 05/01/2024 Noted Resolved CHRISTIAN (obstructive sleep apnea) [G47.33] 01/07/2014 HTN (hypertension) [I10] 01/07/2014 Dyslipidemia [E78.5] 01/07/2014 Atrial fibrillation (HCC) [I48.91] 07/08/2014 Atherosclerosis of twenty-nine palms coronary artery of na*07/10/2015 Diabetes mellitus type 2, controlled, without c*07/10/2015 Atrial fibrillation, persistent (HCC) [I48.19] 07/22/2015 Paroxysmal atrial fibrillation (HCC) [I48.0] 12/04/2015 Paroxysmal atrial flutter (HCC) [I48.92] 05/30/2018 Obesity, Class III, BMI >= 40 [E66.813] 10/23/2019 Chronic diastolic heart failure (HCC) [I50.32] 06/05/2023 Mixed hyperlipidemia [E78.2] 06/05/2023 Encounter Status:Closed by PEGGY GATES on 07/11/24 XR HAND LT MIN 3V* Observed: 04/23/2024 9:32 AM Status: COMPLETED Source: [facility] [address] [place] [address] XRay Report Signed Patient: Jorge Davis MR#: [id number] 14 : 1945 Acct:[id number] Age/Sex: 79 / M ADM Date: 04/23/24 Loc: [facility] Room: Type: [facility] Attending Dr: Ruben Diane MD Copies to: [...] 9:46 AM Dictation Location: RADIO-PC-16 Transcribed By: PWS 04/23/24945 Dictated By: Lucas Gonzalez DO 04/23/24931 Signed By: <Electronically signed by Lucas Gonzalez DO in OV> 04/23/24945 CNPN Observed: 04/03/2024 12:00 AM Status: COMPLETED Source: [facility] Telephone (CARDMN) JORGE DAVIS ([id number]) 1945 M Date Time Provider Department 04/03/24 RUBEN DENTONKY During your visit today, we recorded the following information about you: Peggy Gates 04/03/2024 11:53 AM Signed Uploaded INR results from [facility] FAX into scanned documents and [facility]. Peggy IC 955 Allergies As of Date: 04/03/2024 (No Known Allergies) Date Reviewed: 02/13/2024 Reviewed by: Emeli Lui OCCA - Fully Assessed Reason for Visit: Results [95] Cmt: INR Prescriptions as of 04/05/2024 - empagliflozin (JARDIANCE) 10 mg tablet Take [...] once daily. Problem List As Of Date 04/03/2024 Noted Resolved CHRISTIAN (obstructive sleep apnea) [G47.33] 01/07/2014 HTN (hypertension) [I10] 01/07/2014 Dyslipidemia [E78.5] 01/07/2014 Atrial fibrillation (HCC) [I48.91] 07/08/2014 Atherosclerosis of twenty-nine palms coronary artery of na*07/10/2015 Diabetes mellitus type 2, controlled, without c*07/10/2015 Atrial fibrillation, persistent (HCC) [I48.19] 07/22/2015 Paroxysmal atrial fibrillation (HCC) [I48.0] 12/04/2015 Paroxysmal atrial flutter (HCC) [I48.92] 05/30/2018 Obesity, Class III, BMI >= 40 [E66.01] 10/23/2019 Chronic diastolic heart failure (HCC) [I50.32] 06/05/2023 Mixed hyperlipidemia [E78.2] 06/05/2023 Encounter Status:Closed by PEGGY GATES on 04/05/24 CNPN Observed: 02/21/2024 12:00 AM Status: COMPLETED Source: [facility] Telephone (CARDMN) JORGE DAVIS ([id number]) 1945 [employer]* Date Time Provider Department 02/21/24 RUBEN DENTON During your visit today, we recorded the following information about you: Peggy Gates 02/21/2024 1:49 PM Signed Received LAB results. Uploaded to scanned documents and [employer] drive. -Peggy IC 955 Kim Gomez RN 02/21/2024 1:57 PM Signed Allergies [...] Atrial fibrillation (HCC) [I48.91] 07/08/2014 Atherosclerosis of twenty-nine palms coronary artery of na*07/10/2015 Diabetes mellitus type 2, controlled, without c*07/10/2015 Atrial fibrillation, persistent (HCC) [I48.19] 07/22/2015 Paroxysmal atrial fibrillation (HCC) [I48.0] 12/04/2015 Paroxysmal atrial flutter (HCC) [I48.92] 05/30/2018 Obesity, Class III, BMI >= 40 [E66.01] 10/23/2019 Chronic diastolic heart failure (HCC) [I50.32] 06/05/2023 Mixed hyperlipidemia [E78.2] 06/05/2023 Encounter Status:Closed by KIM GOMEZ on 02/21/24 PROGRESS Observed: 02/13/2024 1:00 PM Status: COMPLETED Source: [facility] HNO ID: [id number] Author: ALIX BARRIOS APRN.CORE MACHINE OPERATOR Service: ? Author Type: Nurse Practitioner Type: Progress Notes Filed: 02/13/2024 14:49 Note Text: [facility] Department of Cardiovascular Medicine SECTION OF CLINICAL CARDIOLOGY OUTPATIENT VISIT DATE February 13, 2024 OUTPATIENT VISIT TYPE ESTABLISHED PRIMARY CARE PHYSICIAN: Declan Bruce ([facility]) [address] [place] [address] REFERRING PHYSICIAN: No referring provider defined for this encounter. CHIEF COMPLAINT: No chief complaint on file. HISTORY OF PRESENT ILLNESS: Mr. Davis is a 79 year old male who presents today for a cardiovascular medicine follow-up visit. PMH significant for persistent atrial fib s/p PVAI (2019); chronic HFpEF; CAD; HTN; HLD; T2DM. Established patient of Dr Interiano, and Dr Denton (EP). He is seen today in the outpatient cardiology office for routine follow up. DAWSON with Dr Interiano 12/08/2023: ASSESSMENT/PLAN: 1. Chronic diastolic heart failure [...] Continue staitn 5. Coronary artery disease involving twenty-nine palms coronary artery of twenty-nine palms heart without angina pectoris - ICD9: 414.01, [...] Intolerance, Excessive Sweating, Frequent Urination, Frequent Thirst I have confirmed and edited as necessary the PFSH obtained by others. PHYSICAL EXAM: BP 134/68 (BP Site: Left Arm, BP Position: Sitting, BP Cuff Size: Large Adult) Pulse 66 Wt 120.2 kg (264 lb 15.9 oz) SpO2 96% BMI 44.10 kg/m? Body mass index is 44.1 kg/m?. GENERAL: Alert, no distress, cooperative LUNGS: Lungs [...] who was seen in the outpatient cardiology office for routine follow up. Today, he reports overall [...] Visit HTN (hypertension) - Primary Atherosclerosis of twenty-nine palms coronary artery of twenty-nine palms heart without angina pectoris Atrial fibrillation, persistent (HCC) Chronic diastolic heart failure (HCC) Mixed hyperlipidemia - continue Jardiance 10 mg, furosemide 40 mg, pravastatin 80 mg - encouraged low sodium, heart healthy diet - physical exercise as tolerated - weigh daily at home, preferable in the AM after using the bathroom - follow up as scheduled with Dr Interiano in 3-4 months I personally interviewed, confirmed and edited the above information if obtained by others. CONTACT INFORMATION: Alix Barrios APRN.CNP [facility] Second Floor [address] [place] [address] I spent 30 minutes in the visit, with more than 50% of the total bkod-eq-nkxj time of the visit in counseling / coordination of care. CNOV Observed: 02/13/2024 1:00 PM Status: COMPLETED Source: [facility] Office Visit (CARDAV) JORGE DAVIS ([id number]) 1945 [address] [facility] Date Time Provider Department 02/13/24 1:00 PM ALIX BARRIOS During your visit today, we recorded the following information about you: Pulse Blood pressure Weight 66/minute 134/68 120.2 kg Alix Barrios APRN.CNP 02/13/2024 2:49 PM Signed [facility] Department of Cardiovascular Medicine SECTION OF CLINICAL CARDIOLOGY OUTPATIENT VISIT DATE February 13, 2024 OUTPATIENT VISIT TYPE ESTABLISHED PRIMARY CARE PHYSICIAN: Declan Bruce (Peggy) [address] [place] [address] REFERRING PHYSICIAN: No referring provider defined for this encounter. CHIEF COMPLAINT: No chief complaint on file. HISTORY OF PRESENT ILLNESS: Mr. Davis is a 79 year old male who presents today for a cardiovascular medicine follow-up visit. PMH significant for persistent atrial fib s/p PVAI (2019); chronic HFpEF; CAD; HTN; HLD; T2DM. Established patient of Dr Interiano, and Dr Denton (EP). He is seen today in the outpatient cardiology office for routine follow up. DAWOSN with Dr Interiano 12/08/2023: ASSESSMENT/PLAN: 1. Chronic diastolic heart failure [...] Continue staitn 5. Coronary artery disease involving twenty-nine palms coronary artery of twenty-nine palms heart without angina pectoris - ICD9: 414.01, [...] Intolerance, Excessive Sweating, Frequent Urination, Frequent Thirst I have confirmed and edited as necessary the PFSH obtained by others. PHYSICAL EXAM: BP 134/68 (BP Site: Left Arm, BP Position: Sitting, BP Cuff Size: Large Adult) Pulse 66 Wt 120.2 kg (264 lb 15.9 oz) SpO2 96% BMI 44.10 kg/m? Body mass index is 44.1 kg/m?. GENERAL: Alert, no distress, cooperative LUNGS: Lungs [...] who was seen in the outpatient cardiology office for routine follow up. Today, he reports overall [...] Visit HTN (hypertension) - Primary Atherosclerosis of twenty-nine palms coronary artery of twenty-nine palms heart without angina pectoris Atrial fibrillation, persistent (HCC) Chronic diastolic heart failure (HCC) Mixed hyperlipidemia - continue Jardiance 10 mg, furosemide 40 mg, pravastatin 80 mg - encouraged low sodium, heart healthy diet - physical exercise as tolerated - weigh daily at home, preferable in the AM after using the bathroom - follow up as scheduled with Dr Interiano in 3-4 months I personally interviewed, confirmed and edited the above information if obtained by others. CONTACT INFORMATION: Alix Barrios APRN.CORE MACHINE OPERATOR [facility] Cardiology Second Floor [address] [place] [address] I spent 30 minutes in the visit, with more than 50% of the total yhgb-bf-idbv time of the visit in counseling / coordination of care. Allergies As of Date: 02/13/2024 (No Known Allergies) Date Reviewed: 02/13/2024 Reviewed by: Emeli Lui OCCA - Fully Assessed Reason for Visit: Established Patient [175] Primary Visit Diagnosis:Primary hypertension [I10] Other Visit Diagnoses:Atherosclerosis of twenty-nine palms coronary artery of twenty-nine palms heart without angina pectoris [I25.10] Atrial fibrillation, persistent (HCC) [I48.19] Chronic diastolic heart failure (HCC) [I50.32] Mixed hyperlipidemia [E78.2] Prescriptions as of 02/13/2024 - empagliflozin (JARDIANCE) 10 mg tablet Take [...] once daily. Problem List As Of Date 02/13/2024 Noted Resolved CHRISTIAN (obstructive sleep apnea) [G47.33] 01/07/2014 HTN (hypertension) [I10] 01/07/2014 Dyslipidemia [E78.5] 01/07/2014 Atrial fibrillation (HCC) [I48.91] 07/08/2014 Atherosclerosis of twenty-nine palms coronary artery of na*07/10/2015 Diabetes mellitus type 2, controlled, without c*07/10/2015 Atrial fibrillation, persistent (HCC) [I48.19] 07/22/2015 Paroxysmal atrial fibrillation (HCC) [I48.0] 12/04/2015 Paroxysmal atrial flutter (HCC) [I48.92] 05/30/2018 Obesity, Class III, BMI >= 40 [E66.01] 10/23/2019 Chronic diastolic heart failure (HCC) [I50.32] 06/05/2023 Mixed hyperlipidemia [E78.2] 06/05/2023 Encounter Status:Closed by ALIX BARRIOS on 02/13/24 NT-PROBNP SERPL-MCNC Collected: 024 11:18 AM Status: F Source: [facility] Order Comment: Specimen Type : BLOOD SPECIMEN Ordering Facility: [facility] Address: [address] [place] [address] TYPE CODE TESTS RESULT OUT OF RANGE REFERENCE UNITS LAB 09880-2(LOINC) NT-proBNP SerPl-mCnc 2043 High <450 pg/mL Performed By: #### 99609-0 # ### [facility] CLIA [id number] [place] [address] [facility] CNPN Observed: 02/07/2024 12:00 AM Status: COMPLETED Source: [facility] Telephone (CARDMN) JORGE DAVIS ([id number]) 1945 [facility]* Date Time Provider Department 02/07/24 RUBEN DENTON CARDKY During your visit today, we recorded the following information about you: Peggy Gates 02/07/2024 2:52 PM Signed Received faxed LAB results. Uploaded to scanned documents and [employer] drive. -Joselyn Cline RN 02/09/2024 7:55 AM Signed INR results received, patient remains therapeutic. Patient is not scheduled for any upcoming procedures and coumadin is managed locally. Joselyn Macedo RN Allergies As of Date: 02/07/2024 (No Known Allergies) Date Reviewed: 12/08/2023 Reviewed by: Garrick Interiano V, MD - Fully Assessed Reason for [...] Atrial fibrillation (HCC) [I48.91] 07/08/2014 Atherosclerosis of twenty-nine palms coronary artery of na*07/10/2015 Diabetes mellitus type 2, controlled, without c*07/10/2015 Atrial fibrillation, persistent (HCC) [I48.19] 07/22/2015 Paroxysmal atrial fibrillation (HCC) [I48.0] 12/04/2015 Paroxysmal atrial flutter (HCC) [I48.92] 05/30/2018 Obesity, Class III, BMI >= 40 [E66.01] 10/23/2019 Chronic diastolic heart failure (HCC) [I50.32] 06/05/2023 Mixed hyperlipidemia [E78.2] 06/05/2023 Encounter Status:Closed by JOSELYN MACEDO on 02/09/24 JOSE Observed: 01/24/2024 12:00 AM Status: COMPLETED Source: [facility] Telephone (CARDMN) JORGE DAVIS ([id number]) 1945 [employer]* Date Time Provider Department 01/24/24 RUBEN DENTON During your visit today, we recorded the following information about you: Peggy Gates 01/24/2024 2:58 PM Signed Received INR LAB results from [facility]. Uploaded to [employer] and [facility]. -Peggy IC 955 Kim Gmoez RN 01/24/2024 3:30 PM Signed Allergies As of Date: 01/24/2024 (No Known Allergies) Date Reviewed: 12/08/2023 Reviewed by: Garrick Interiano V, MD - Fully Assessed Prescriptions as [...] Atrial fibrillation (HCC) [I48.91] 07/08/2014 Atherosclerosis of twenty-nine palms coronary artery of na*07/10/2015 Diabetes mellitus type 2, controlled, without c*07/10/2015 Atrial fibrillation, persistent (HCC) [I48.19] 07/22/2015 Paroxysmal atrial fibrillation (HCC) [I48.0] 12/04/2015 Paroxysmal atrial flutter (HCC) [I48.92] 05/30/2018 Obesity, Class III, BMI >= 40 [E66.01] 10/23/2019 Chronic diastolic heart failure (HCC) [I50.32] 06/05/2023 Mixed hyperlipidemia [E78.2] 06/05/2023 Encounter Status:Closed by KIM GOMEZ on 01/24/24 CNPN Observed: 12/19/2023 12:00 AM Status: COMPLETED Source: [facility] Telephone (CAEPAV) JORGE DAVIS ([id number]) 1945 M [facility]* Date Time Provider Department 12/19/23 GARRICK INTERIANO V CAKORTNEYAV During your visit today, we recorded the following information about you: Conrado Callejas, CONSTANTIN 12/19/2023 2:17 PM Signed Spoke with patients . Relayed Dr. Pineda message below. Patient is NOT taking Jardiance due to cost. Will adjust Lasix and recheck BNP. Appt scheduled end of Feb with Shama. Patient is requesting change to [place] instead of [place]. Will contact us if no improvement. Garrick Interiano V, MD P Avw Card Nurse; P Avw Card Education Trainer Tell pt pro bnp is high suggesting [...] Spoke to , rescheduled with Alix in [place]. now asking about BNP lab for next week. I advised I saw one for 01/17, but not next week. She would like a nurse to confirm and call her. Lyndsay Steen RN 12/20/2023 1:16 PM Signed Order states to be done in 4 weeks, as does Dr. Interiano's note. Called, no answer. Left message that the lab is to be drawn in 4 weeks, not next week. Allergies As of Date: 12/19/2023 (No Known Allergies) Date Reviewed: 12/08/2023 Reviewed by: Garrick Interiano V, MD - Fully Assessed Prescriptions as [...] Atrial fibrillation (HCC) [I48.91] 07/08/2014 Atherosclerosis of twenty-nine palms coronary artery of na*07/10/2015 Diabetes mellitus type 2, controlled, without c*07/10/2015 Atrial fibrillation, persistent (HCC) [I48.19] 07/22/2015 Paroxysmal atrial fibrillation (HCC) [I48.0] 12/04/2015 Paroxysmal atrial flutter (HCC) [I48.92] 05/30/2018 Obesity, Class III, BMI >= 40 [E66.01] 10/23/2019 Chronic diastolic heart failure (HCC) [I50.32] 06/05/2023 Mixed hyperlipidemia [E78.2] 06/05/2023 Encounter Status:Closed by CONRADO CALLEJAS on 12/19/23 JOSE Observed: 12/12/2023 12:00 AM Status: COMPLETED Source: [facility] Telephone (CARDMN) JORGE DAVIS ([id number]) 1945 [employer]* Date Time Provider Department 12/12/23 RUBEN DENTON CARDKY During your visit today, we recorded the following information about you: Mary Dwyer 12/12/2023 2:58 PM Signed Documentation scanned into EP outside database Scanned INR report into epic Allergies As of Date: 12/12/2023 (No Known Allergies) Date Reviewed: 12/08/2023 Reviewed by: Garrick Interiano V, MD - Fully Assessed Reason for Visit: Received Outside Medical Records [[id number]] Prescriptions as of 12/12/2023 - empagliflozin (JARDIANCE) [...] Atrial fibrillation (HCC) [I48.91] 07/08/2014 Atherosclerosis of twenty-nine palms coronary artery of na*07/10/2015 Diabetes mellitus type 2, controlled, without c*07/10/2015 Atrial fibrillation, persistent (HCC) [I48.19] 07/22/2015 Paroxysmal atrial fibrillation (HCC) [I48.0] 12/04/2015 Paroxysmal atrial flutter (HCC) [I48.92] 05/30/2018 Obesity, Class III, BMI >= 40 [E66.01] 10/23/2019 Chronic diastolic heart failure (HCC) [I50.32] 06/05/2023 Mixed hyperlipidemia [E78.2] 06/05/2023 Encounter Status:Closed by MARY DWYER on 12/12/23 NT-PROBNP SERPL-MCNC Collected: 024 12:32 PM Status: F Source: [facility] Order Comment: Specimen Type : BLOOD SPECIMEN Ordering Facility: [facility] Address: [address] [place] [address] TYPE CODE TESTS RESULT OUT OF RANGE REFERENCE UNITS LAB 68696-7(LOINC) NT-proBNP SerPl-mCnc 2139 High <450 pg/mL Performed By: #### 12222-8, 92399-3 #### [facility] CLIA [id number] [facility] [place] [address] [place] BAS METAB 2000 PNL SERPL Collected: 12:32 PM Status: F Source: [facility] Order Comment: Specimen Type : BLOOD SPECIMEN Ordering Facility: [facility] Address: [address] [place] [address] TYPE CODE TESTS RESULT OUT OF RANGE REFERENCE UNITS LAB 2345-7(LOINC) Glucose SerPl-mCnc 97 74-99 mg/dL Result Comment: The [place] Diabetes Association (ADA) provides guidance for cutoff [...] Standards of Medical Care in Diabetes 2016, [place] [employer] Association. Diabetes Care. 2016.39(Suppl 1). LAB 3094-0(LOINC) BUN SerPl-mCnc 18 9-24 mg/ dL LAB 2160-0(LOINC) Creat SerPl-mCnc 0.99 0.73-1.22 mg/dL LAB 2951-2(LOINC) Sodium SerPl-sCnc 142 136-144 mmol/L LAB 2823-3(LOINC) Potassium SerPl-sCnc 4.3 3.7-5.1 mmol/L LAB 2075-0(LOINC) Chloride SerPl-sCnc 103 98-107 mmol/L LAB 2028-9(LOINC) CO2 SerPl-sCnc 26 22-30 mmo l/L LAB 81776-8(LOINC) Anion Gap SerPl-sCnc 13 8-15 mmol/L LAB 59766-9(LOINC) Calcium SerPl-mCnc 9.4 8.5-10.2 mg/dL LAB 47625-6(LOINC) Creatinine + eGFR Pnl SerPlBld 78 >=60 mL/min/1. 73m??? Result Comment: Estimated Gl omerular Filtration Rate (eGFR) is calculated using the 202 CKD-EPI creatinine equation. This equation utilizes serum creatinine, sex, and age as parameters. The creatinine assay has traceable calibration to isotope dilution-mass spectrometry. Refer to KDIGO guidelines for clinical interpretation. In patients with unstable renal function, e.g. those with acute kidney injury, the eGFR may not accurately reflect actual GFR. Performed By: #### 60670-0, 83701-9 #### [facility] CLIA [id number] [facility] [place] [address] [place] PROGRESS Observed: 12/08/2023 11:24 AM Status: COMPLETED Source: [facility] HNO ID: [id number] Author: GARRICK INTERIANO MD Service: ? Author Type: Physician Type: Progress Notes Filed: 12/08/2023 11:39 Note Text: Referring Physician: Garrick Interiano [id number] [facility] [place] [facility] [address] Primary Care Physician: DO Jorge Unger Cristopher [...] Continue staitn 5. Coronary artery disease involving twenty-nine palms coronary artery of twenty-nine palms heart without angina pectoris - ICD9: 414.01, ICD10: I25.10 Mild Garrick Interiano, [facility] [place]: Current Medications 12/08/2023 DIABETES THERAPIES Medication [...] LDL Cholesterol (mg/dL) Date Value 09/18/2020 78 Garrick Interiano MD CNOV Observed: 12/08/2023 10:40 AM Status: COMPLETED Source: [facility] Office Visit (CARDAV) JORGE DAVIS ([id number]) 1945 [place] [place]* Date Time Provider Department 12/08/23 10:40 AM GARRICK INTERIANO During your visit today, we recorded the following information about you: Pulse Blood pressure Weight 88/minute 142/80 118.4 kg Garrick Interiano V, MD 12/08/2023 11:39 AM Signed Referring Physician: Garrick Interiano [id number] [facility] [address] Primary Care Physician: DO Jorge Unger Cristopher [...] Continue staitn 5. Coronary artery disease involving twenty-nine palms coronary artery of twenty-nine palms heart without angina pectoris - ICD9: 414.01, ICD10: I25.10 Mild Garrick Interiano MD Current Medications: Current Medications 12/08/2023 DIABETES [...] LDL Cholesterol (mg/dL) Date Value 09/18/2020 78 Garrick Interiano MD Referring Provider: GARRICK INTERIANO V [[id number]] Allergies As of Date: 12/08/2023 (No Known Allergies) Date Reviewed: 12/08/2023 Reviewed by: Garrick Interiano V, MD - Fully Assessed Reason for Visit: Follow Up [171] Primary Visit Diagnosis:Chronic diastolic heart failure (HCC) [I50.32] Other Visit Diagnoses:Atrial fibrillation, persistent (HCC) [I48.19] Obesity, Class III, 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 Problem List As Of Date 12/08/2023 Noted Resolved CHRISTIAN (obstructive sleep apnea) [G47.33] 01/07/2014 HTN (hypertension) [I10] 01/07/2014 Dyslipidemia [E78.5] 01/07/2014 Atrial fibrillation (HCC) [I48.91] 07/08/2014 Atherosclerosis of twenty-nine palms coronary artery of na*07/10/2015 Diabetes mellitus type 2, controlled, without c*07/10/2015 Atrial fibrillation, persistent (HCC) [I48.19] 07/22/2015 Paroxysmal atrial fibrillation (HCC) [I48.0] 12/04/2015 Paroxysmal atrial flutter (HCC) [I48.92] 05/30/2018 Obesity, Class III, BMI >= 40 [E66.01] 10/23/2019 Chronic diastolic heart failure (HCC) [I50.32] 06/05/2023 Mixed hyperlipidemia [E78.2] 06/05/2023 Prescriptions ordered this encounter Disp Refills Start End EMPAGLIFLOZIN 10 MG TABLET 90 t* 3 12/08/2023 Route: ORAL Sig: Take 1 tablet by mouth daily with breakfast. Level of Service: OFFICE/OUTPATIENT ESTABLISHED MOD MDM 30 MIN [77005] Additional E/M codes: VISIT CPLX INHERENT EANDM ASSOC WITH MED * Disposition: Return in about 6 months (around 06/06/2024). Follow-up and Disposition History for Encounter Date Provider Department Center 12/08/2023 [id number]-SCKOGARRICK INTERIANO Encounter Status:Closed by GARRICK INTERIANO V on 12/08/23 ECHO Observed: 12/08/2023 9:46 AM Status: F Source: [facility] Echocardiography Report: Tra nsthoracic Echo [facility] Date of service: 12/08/2023 9:46:42 AM MAKING SUPERVISOR Ordering physician: GARRICK INTERIANO V Indication: Evaluation of known heart failure to guide therapy Technologist: Jose Luis Porter [facility] Interpreting physician: Ruddy Chau MD PATIENT: [...] * * * Final * * * CC [employer] Medical Image : [id number] [id number] Observed: 11/15/2023 12:00 AM Status: COMPLETED Source: [facility] Telephone (CARDMN) JORGE DAVIS ([id number]) 1945 Kandice Kelly* Date Time Provider Department 11/15/23 RUBEN DENTON During your visit today, we recorded the following information about you: Mary Dwyer 11/15/2023 2:37 PM Signed Documentation scanned into EP outside database Scanned INR results into [employer] Allergies As of Date: 11/15/2023 (No Known [...] Atrial fibrillation (HCC) [I48.91] 07/08/2014 Atherosclerosis of twenty-nine palms coronary artery of na*07/10/2015 Diabetes mellitus type 2, controlled, without c*07/10/2015 Atrial fibrillation, persistent (HCC) [I48.19] 07/22/2015 Paroxysmal atrial fibrillation (HCC) [I48.0] 12/04/2015 Paroxysmal atrial flutter (HCC) [I48.92] 05/30/2018 Obesity, Class III, BMI >= 40 [E66.01] 10/23/2019 Chronic diastolic heart failure (HCC) [I50.32] 06/05/2023 Mixed hyperlipidemia [E78.2] 06/05/2023 Encounter Status:Closed by MARY DWYER on 11/15/23 ALLERGIES DATE TYPE / CODE NAME / CODE REACTION SEVERITY SOURCE 07/31/2024 Drug Allergy/58458 8002(SNOMED CT) No Known Allergies/T9463712 88(RXNORM) Unknown [facility] 04/23/2024 Drug Allergy/89492 8002(SNOMED CT) Iodinated Contrast Media/L395099996(R XNORM) Unknown Reaction Unknown [facility] 04/23/2024 Drug Allergy/50784 8002(SNOMED CT) latex/A154853702(R XNORM) Unknown Reaction Unknown [facility] Drug Class/7548166 03(SNOMED CT) NO KNOWN ALLERGIES [facility] ENCOUNTERS ADMIT/DISCHARGE ACCOUNT NUMBER ADMITTING ENCOUNTER CLASS LOCATION SOURCE 09/10/2024/09/11/19 [id number] Ambulatory Building:[facility] EPIC 09/02/2024/09/03/19 [id number] Ambulatory Building:[facility] EPIC 07/31/2024/08/01/19 [id number] [facility]EKGCAARIELA [facility] 04/23/2024/04/23/19 [id number] Ruben Diane [facility]SOXNirmala [facility] 02/13/2024/02/13/20 24 [id number] Ambulatory [facility] 02/13/2024/02/13/20 24 [id number] [facility] 12/08/2023/12/08/19 24 [id number] [facility] 12/08/2023/12/08/19 24 [id number] Ambulatory [facility] 12/08/2023/12/08/19 24 [id number] Ambulatory [facility] 10/03/2023/10/03/19 24 [id number] Ambulatory Building:[facility] EPIC PAYERS ENCOUNTER GUARANTOR PAYER SUBSCRIBER SOURCE 09/10/2024 JORGE CONNOLYLOB: [id number] [place] [address]Ypr: (HP) Primary Insurance:MEDICAREPolic y Number: [id number] Date:6154-60-80Sjfg Name:Medicare JORGE CONNOLLYOB: [id number] [place] [address] [facility] EPIC 09/10/2024 Secondary Insurance:MEDICAL MUTUALPolicy Number: [id number] Date:2021-07-11 JORGE CONNOLLYOB: [id number] [place] [address] [facility] EPIC 09/02/2024 JORGE SIMONONDOB: [place] [address]Xgl: (HP) Primary Insurance:MEDICAREPolic y Number: [id number] Date:5742-15-30Vmxv Name:Medicare JORGE SIMONONDOB: [id number] [place] [id number] [facility] EPIC 09/02/2024 Secondary Insurance:MEDICAL MUTUALPolicy Number: [id number] Date:2021-07-11 JORGE CONNOLLYOB: [id number] [place] [id number] [facility] EPIC 07/31/2024 Jorge Simonon[address] [place] [address]Sss: (HP) Primary Insurance:MedicarePolic y Number: [id number] Date:2024-07-31 Jorge SimononDOB: [id number] [place] [address]Nyl: (HP) [facility] 07/31/2024 Secondary Insurance:MMOPolicy Number: [id number] Date:5905-34-80EE [id number] [place] [address]PA: Jorge SimononDOB: [id number] [place] [address]Emr: () [facility] 07/31/2024 Tertiary Insuran ce:Self PayPolicy Number: Effective Date:2024-07-31 [facility]/2024 Jorge Simonon[address] [place] [address]Lks: () Primary Insurance:MedicarePolic y Number: [id number] Date:2024-04-23 Jorge ConnollyOB: [id number] [place] [address]Dcu: () [facility] 04/23/2024 Secondary Insurance:MMOPolicy Number: [id number] Date:7907-12-63[id number] [place] [address]XM: Jorge ConnollyOB: [id number] [place] [address]Oxq: () [facility] 04/23/2024 Tertiary Insuran ce:Self PayPolicy Number: Effective Date:2024-04-23 [facility] 02/13/2024 Primary Insurance:MEDICARE A AND BPolicy Number: [id number] Date:4879-16-71Hmpy Name:Mendez CONNOLLYOB: [id number] [place] [address] [facility] 02/13/2024 Secondary Insura nce:MMO MEDICARE SUPPLEMENTPolicy Number: [id number] Date:0512-41-41Mfvj Name:Emilie JORGE CONNOLLYOB: [id number] [place] [address] [facility] 02/13/2024 Primary Insurance:MEDICARE A AND BPolicy Number: [id number] Date:6683-21-33Ibvv Name:Mendez CONNOLLYOB: [id number] [address] 02/13/2024 Secondary Insura nce[place] [place] SUPPLEMENTPolicy Number: [id number] Date:1912-93-78Ntco Name:Emilie CONNOLLYOB: [id number] [address] 12/08/2023 Primary Insurance:MEDICARE A AND BPolicy Number: [id number] Date:8513-01-86Ktan Name:Mendez CONNOLLYOB: [id number] [address] 12/08/2023 Secondary Insura nce:[facility] [place] SUPPLEMENTPolicy Number: [id number] Date:1497-56-69Qdav Name:Emilie CONNOLLYOB: [id number] [address] 12/08/2023 Primary Insurance:MEDICARE A AND BPolicy Number: [id number] Date:0703-87-10Liqb Name:Mendez CONNOLLYOB: [id number] [address] 12/08/2023 Secondary Insura nce:[facility] [place] SUPPLEMENTPolicy Number: [id number] Date:4223-32-94Gfkw Name:Emilie CONNOLLYOB: [id number] [address] 12/08/2023 Primary Insurance:MEDICARE A AND BPolicy Number: [id number] Date:9375-88-10Qjjz Name:Mendez CONNOLLYOB: [id number] M[address] 12/08/2023 Secondary Insura nce:MMO MEDICARE SUPPLEMENTPolicy Number: [id number] Date:6140-44-05Yqgx Name:Emilie CONNOLLYOB: [id number] [place] [address] [facility] 10/03/2023 JORGE CONNOLLYOB: [place] [address]Kba: () Primary Insurance:MEDICAREPolic y Number: [id number] Date:9124-22-68Bitp Name:Medicare JORGE Kavita GOOD: [id number] [place] [address] [facility] 10/03/2023 Secondary Insurance:MEDICAL MUTUALPolicy Number: [id number] Date:2021-07-11 JORGE GOOD: [id number] [place] [address] [facility]
--- OUTSIDE RECORDS SUMMARY | 2024-09-10 14:30 | XMS_ITS | Encounter Summary ---
Author Organization [facility] Address [address] [place] [address] Care Team Providers Care Coding Assistant Name Role Phone Declan Bruce DO Primary Care Provider [phone] Reason for Visit * Reason Comments Dry Eye Encounter Details Date Type Department Care Team (Late st Contact Info) Description 09/10/2024 2:30 PM EDT Office Visit [facility] [address] [place] [address] Marshall Lee DO [address] [place] [address] Dry eyes (Primary Dx); Blepharitis of upper and lower eyelids of both eyes, unspecified type Social History Tobacco Use Types Packs/Day Years Used Date Smoking Tobacco: Former Cigarettes Smokeless Tobacco: Never Alcohol Use Standard Drinks/Week Comments Yes 0 (1 standard drink = 0.6 oz pure alcohol) 6+ drinks weekly. Caffine intkae: 1-2 cups per day coffee Sex and Gender Information Value Date Recorded Sex Assigned at Not on file Legal Sex Male 7:22 PM EDT Gender Identity Not on file Sexual Orientation Not on file documented as of this encounter Progress Notes * Marshall Lee DO - 09/10/2024 2:30 PM EDT Images from the original note were not included. Assessment/Plan Diagnoses and all orders for this visit: Dry eyes - Dry Eyes OU -- Environmental changes to minimize dryness and exposure and the use of artificial tears were recommended. Blepharitis of upper and lower eyelids of both eyes, unspecified type - Blepharitis, posterior type OU - The patient exhibits inspissated meibomian glands. Warm compresses, lid massage and lid scrubs were recommended. documented in this encounter Plan of Treatment Upcoming Encounters Date Type Department Care Team (Late st Contact Info) Description 12/02/2024 11:20 AM EDT Procedure Visit [facility] [address] [place] [address] Christopher Peacock DPM [address] [address] documented as of this encounter Visit Diagnoses Diagnosis Dry eyes- Primary Unspecified tear film insufficiency Blepharitis of upper and lower eyelids of both eyes, unspecified type documented in this encounter Care Teams Coding Assistant Relationship Specialty Start Date End Date Declan Bruce DO [address] [place] [address] PCP - General Internal Medicine 08/31/22 documented as of this encounter
--- OUTSIDE RECORDS SUMMARY | 2024-09-17 11:19 | XMS_ITS | Encounter Summary ---
Author Organization [facility] Address [address] [place] [address] Care Team Providers Care Ladle Car Operator Name Role Phone Declan Bruce DO Primary Care Provider [phone] Encounter Details Date Type Department Care Team (Latest Contact Info) Description 09/10/2024 Travel Social History Tobacco Use Types Packs/Day Years [...] on file documented as of this encounter Plan of Treatment Upcoming Encounters Date Type Department Care Team (Late st Contact Info) Description 12/02/2024 11:20 AM EDT Procedure Visit [facility] [address] [place] [address] Christopher Peacock DPM [address] [address] documented as of this encounter Visit Diagnoses Not on filedocumented in this encounter Care Teams Ladle Car Operator Relationship Specialty Start Date End Date Declan Bruce DO [address] [place] [address] PCP - General Internal Medicine 08/31/22 documented as of this encounter
--- OUTSIDE RECORDS SUMMARY | 2024-09-17 11:19 | XMS_ITS | Clinical Summary ---
Author Organization [facility] Address [address] [place] [address] Care Team Providers Care Postal Worker Name Role Phone Unavailable Primary Care Provider Unavailabl e Allergies No known active allergies Medications allopurinol (ZYLOPRIM) 300 MG tablet Take 300 mg by mouth daily Active pravastatin (PRAVACHOL) 40 MG tablet Take 40 mg by mouth daily Active potassium chloride (KLOR-CON M) 20 MEQ TBCR extended release tablet TAKE 1 TABLET BY MOUTH ONCE DAILY 06/03/2020 Active metFORMIN (GLUCOPHAGE) 500 MG tablet Take 500 mg by mouth daily (with breakfast) Active furosemide (LASIX) 40 MG tablet TAKE 1 TABLET BY MOUTH ONCE DAILY 05/22/2020 Active aspirin 325 MG tablet Take 325 mg by mouth daily Active apixaban (ELIQUIS) 5 MG TABS tablet Take 5 mg by mouth 2 times daily 01/07/2020 Active Family History Medical History Relation Name Comments Diabetes Father Diabetes Mother Heart Disease Mother Hypertension Mother Relation Name Status Comments Father Mother Social History Tobacco Use Types Packs/Day Years Used Date Smoking Tobacco: Former Alcohol Use Standard Drinks/Week Comments Yes 0 (1 standard drink = 0.6 oz pur e alcohol) 4-6 beer/liquor per week Sex and Gender Information Value Date Recorded Sex Assigned at Not on file Legal Sex Male 1:17 PM EST Gender Identity Not on file Sexual Orientation Not on file Last Filed Vital Signs Vital Sign Reading Time Taken Comments Blood Pressure - - Pulse - - Temperature 36.3 C (97.3 F) 07/27/2020 1:03 PM EDT Respiratory Rate - - Oxygen Saturation - - Inhaled Oxygen Concentration - - Weight 122.5 kg (270 lb) 07/27/2020 1:03 PM EDT Height 160 cm (5' 3 ) 07/27/2020 1:03 PM EDT Body Mass Index 47.83 07/27/2020 1:03 PM EDT Plan of Treatment Not on file Insurance [place] [address]
--- OUTSIDE RECORDS SUMMARY | 2024-09-17 11:19 | XMS_ITS | Encounter Summary ---
Author Organization [facility] Address [address] [place] [address] Care Team Providers Care Senior Microsoft Net Developer Name Role Phone Declan Bruce DO Primary Care Provider [phone] Encounter Details Date Type Department Care Team (Late Contact Info) Description 12/05/2022 Abstract [facility] [address] [facility] [address] [place] [address] Bobby Guzman DPM [address] [facility] [address] [place] [address] Social History Tobacco Use Types Packs/Day Years [...] Encounters Date Type Department Care Team (Late Contact Info) Description 12/02/2024 11:20 AM EDT Procedure Visit [facility] [address] [place] [address] Christopher Peacock DPM [address] [facility] [place] [address] documented as of this encounter Visit Diagnoses Not on filedocumented in this encounter Care Teams Senior Microsoft Net Developer Relationship Specialty Start Date End Date Declan Bruce DO [address] [place] [address] PCP - General Internal Medicine 08/31/22 documented as of this encounter
--- OUTSIDE RECORDS SUMMARY | 2024-09-17 11:19 | XMS_ITS | Clinical Summary ---
Author Organization [facility] Address [address] [place] [address] Care Team Providers Care Candy Polisher Name Role Phone Declan Bruce Primary Care Provider [phone] Allergies Active Allergy Reactions Criticality Noted Date Comments Iodinated Contrast Media Unknown 08/21/2023 Latex Unknown 08/21/2023 Medications warfarin (Coumadin) 4 MG tablet Take by mouth. Take as directed per After Visit Summary. Active allopurinol (Zyloprim) 300 MG tablet Take by mouth. Activ e furosemide (Lasix) 20 MG tablet Take by mouth. Activ e metFORMIN (Glucophage) 500 MG tablet Take by mouth. A ctive potassium chloride (Klor-Con) 20 MEQ packet Take 20 mEq by mouth in the morning and 20 mEq before bedtime. Active tamsulosin (Flomax) 0.4 MG 24 hr capsule Take 0.4 mg by mouth in the morning. Active hydroCHLOROthia zide (HYDRODiuril) 25 MG tablet Take 50 mg by mouth in the morning. Active pravastatin (Pravachol) 80 MG tablet Take 80 mg by mouth in the morning. Active doxycycline (Vibramycin) 100 MG capsule Twice daily 4 Active hydrocortisone 2.5 % cream APPLY TO FACE DAILY MONDAY-MONDAY, WEEKENDS OFF FOR 2 WEEKS AND THEN USE NEEDED FOR FLARES 4 Active ketoconazole (NIZOral) 2 % cream APPLY 2 GRAMS TO AFFECTED AREAS ON FACE AND NECK DAILY REPEAT DIRECTED CONTINUOUSLY NEEDED 4 Active KLOR-CON 20 MEQ ER tablet Take 20 mEq by mouth Daily 4 Active predniSONE (Deltasone) 20 MG tablet As Directed 4 Active triamcinolone (Kenalog) 0.1 % cream Twice daily 4 Active Active Problems Problem Noted Date Diagnosed Date Diplopia 10/03/2023 Subjective visual disturbance 08/23/2023 Right posterior capsular opacification 4 Dry eyes 08/23/2023 Blepharitis of upper and lower eyelids of both e yes 08/23/2023 Onychomycosis 08/30/2022 Encounters Date Type Department Care Team Description 09/10/2024 2:30 PM EDT Office Visit [facility] [address] [place] [address] Marshall Lee DO Dry eyes (Primary Dx); Blepharitis of upper and lower eyelids of both eyes, unspecified type 09/10/2024 Bamboo flowsheet [facility] [address] [place] [address] Marshall Lee DO 09/10/2024 Travel 09/02/2024 11:00 AM EDT Office Visit [facility] [address] [place] [address] Christopher Peacock DPM Venous insufficiency (Primary Dx); Pain due to onychomycosis of toenails of both feet 09/02/2024 Bamboo flowsheet [facility] [address] [place] [address] Christopher Peacock DPM from Last 3 Months Family History Medical History Relation Name Comments Cancer Father Diabetes Father Diabetes Mother Heart disease Mother Hypertension Mother Relation Name Status Comments Father Mother Social History Tobacco Use Types Packs/Day Years Used Date Smoking Tobacco: Former Cigarettes Smokeless Tobacco: Never Tobacco Cessation:Counseling Given: Yes Alcohol Use Standard Drinks/Week Comments Yes 0 [...] Sign Reading Time Taken Comments Blood Pressure 138/65 07/22/2021 12:00 PM EDT Pulse - - Temperature - - Respiratory Rate 18 09/02/2024 11:31 AM EDT Oxygen Saturation - - Inhaled Oxygen Concentration - - Weight 117 kg (258 lb) 09/02/2024 11:31 AM EDT Height 165.1 cm (5' 5 ) 09/02/2024 11:31 AM EDT Body Mass Index 42.93 09/02/2024 11:31 AM EDT Plan of Treatment Upcoming Encounters Date Type Department Care Team ([facility] st Contact Info) Description 12/02/2024 11:20 AM EDT Procedure Visit [facility] [address] [place] [address] Christopher Peacock DPM [address] [address] Health Maintenance Due Date Last Done Comments Influenza Vaccine (#1) 2024 4, 01/25/2022, 12/29/2020, Additional history exists Pneumococcal Vaccine: 65+ Years Completed 4, 11/08/2014 Insurance [employer] Care Teams Candy Polisher Relationship Specialty Start Date End Date Declan Bruce DO [address] [place] [address] PCP - General Internal Medicine 08/31/22
--- OUTSIDE RECORDS SUMMARY | 2024-09-17 11:19 | XMS_ITS | Encounter Summary ---
Author Organization [facility] Address [address] [place] [address] Care Team Providers Care Supervisor Phosphatic Fertilizer Name Role Phone Declan Bruce DO Primary Care Provider [phone] Encounter Details Date Type Department Care Team (Late st Contact Info) Description 08/30/2022 Abstract [facility] [address] [facility] 100 [place] [address] Bobby Guzman DPM [address] [facility] 100 [place] [address] Social History Tobacco Use Types Packs/Day Years Used Date Smoking Tobacco: Former Cigarettes Tobacco Cessation:Counseling Given: Not Answered Alcohol Use Standard Drinks/Week Comments Yes 0 [...] EDT Procedure Visit [facility] [address] [place] [address] Christopher Peacock DPM [address] [facility] 5 [place] [address] documented as of this encounter Visit Diagnoses Not on filedocumented in this encounter Care Teams Supervisor Phosphatic Fertilizer Relationship Specialty Start Date End Date Declan Bruce DO [address] [place] [address] PCP - General Internal Medicine 08/31/22 documented as of this encounter
--- OUTSIDE RECORDS SUMMARY | 2024-09-17 11:19 | XMS_ITS | Encounter Summary ---
Author Organization [facility] Address [address] [place] [address] Care Team Providers Care Electroencephalograph Technician Name Role Phone Declan Bruce Primary Care Provider [phone] Encounter Details Date Type Department Care Team (Late st Contact Info) Description 09/10/2024 Bamboo flowsheet [facility] [address] [place] [address] Marshall Lee DO [address] [place] [address] Social History Tobacco Use Types Packs/Day Years [...] EDT Procedure Visit [facility] [address] [place] [address] Christopher Peacock DPM [address] [facility] 5 [place] [address] documented as of this encounter Visit Diagnoses Not on filedocumented in this encounter Care Teams Electroencephalograph Technician Relationship Specialty Start Date End Date Declan Bruce DO [address] [place] [address] PCP - General Internal Medicine 08/31/22 documented as of this encounter
--- OUTSIDE RECORDS SUMMARY | 2024-09-17 11:19 | XMS_ITS | Encounter Summary ---
Author Organization [facility] Address [address] [place] [address] Care Team Providers Care Mannequin Refinisher Name Role Phone Declan Bruce Primary Care Provider [phone] Jaydon Emanuel MD, Garrick Unavailable [phone] Source Comments In the event this information is protected by the Federal Confidentiality of Alcohol and Drug AbusePatient Records regulations: The Federal rules restrict any use of the information to criminally investigate or prosecute any alcohol or drug abuse patient.[facility] Encounter Details Date Type Department Care Team (Late st Contact Info) Description 05/29/2024 Telephone Cardiology [address] [place] [address] Ruel Hoang MD [address] [place] [address] [place] [address] Social History Tobacco Use Types Packs/Day Years Used Date Smoking Tobacco: Former Cigars Q uit: 12/11/2012 Smokeless Tobacco: Never Alcohol Use Standard Drinks/Week Comments Not Currently 0 (1 standard drink = 0.6 oz pur e alcohol) PHQ-2 Answer Date Recorded PHQ2 Score 0 05/30/2018 Area Deprivation Index Answer Date Stephan rded National Score (1-100), lower number is lower ri 79 06/05/2023 State Score (1-10), lower number is lower risk 7 06/05/2023 Data from: https://www.neighborhoodatlas.[facility].edu/. Last address used for calculation [address] 06/05/2023 Sex and Gender Information Value Date Recorded Sex Assigned at Not on file Legal Sex Male 10:33 AM EDT Gender Identity Not on file Sexual Orientation Not on file documented as of this encounter Functional Status * Are you deaf or do you have serious difficulty hearing? Answer Date of Assessment Author No 10/24/2019 11:55 AM EDT Nga Spencer RN * Are you blind or do you have serious difficulty seeing, even when wearing glasses? Answer Date of Assessment Author No 10/24/2019 11:55 AM EDT Nga Spencer RN * Do you have serious difficulty walking or climbing stairs? Answer Date of Assessment Author No 10/24/2019 11:55 AM EDT Nga Spencer RN * Do you have difficulty dressing or bathing? Answer Date of Assessment Author No 10/24/2019 11:55 AM EDT Nga Spencer RN * Because of a physical, mental, or emotional condition, do you have difficulty doing errands alone such as visiting a doctor's office or shopping? Answer Date of Assessment Author No 10/24/2019 11:55 AM EDT Nga Spencer RN documented as of this encounter Mental Status * Because of a physical, mental, or emotional condition, do you have serious difficulty concentrating, remembering, or making decisions? Answer Entry Date Author No 10/24/2019 11:55 AM EDT Nga Spencer RN documented in this encounter Miscellaneous Notes * Telephone Encounter - Radha Gates - 05/29/2024 10:03 AM EDT Uploaded FAX with INR lab results from [facility] into scanned documents and EP [employer]Monkey drive. Radha IC 955 documented in this encounter Plan of Treatment Not on file documented as of this encounter Goals Goal Patient Goal Type Associated Problems Recent Progress Patient-Stated? Author Blood Pressure < 130/80 Blood Pressure 134/68(2023 12:58 PM EST) No Mary Griffith documented as of this encounter Visit Diagnoses Not on filedocumented in this encounter Care Teams Mannequin Refinisher Relationship Specialty Start Date End Date Declan Bruce DO PCP - General Internal Medicine 06/04/13 Garrick Interiano V, MD [address] [place] [address] Primary Staff Physician Cardiology 01/24/24 documented as of this encounter
== END 2024-09-17 11:18 | disposition home or self-care (01) ==
LOC: WC 11:17
PROVIDERS: PCP Internal Medicine; Visit Provider Physician Assistant
DX: I87.312 Chronic venous hypertension (idiopathic) with ulcer of left lower extremity (principal); L97.822 Non-pressure chronic ulcer of other part of left lower leg with fat layer exposed
CPT/HCPCS: G0463

== ENCOUNTER 2024-09-23 11:41 | Outpatient (OUT) | payer MEDICARE, OTHER, SELFPAY ==
--- OUTSIDE RECORDS SUMMARY | 2024-09-10 14:30 | XMS_ITS | Encounter Summary ---
Author Organization [facility] Address [address] [place] [address] Care Team Providers Care Ct Tech Name Role Phone Declan Bruce DO Primary Care Provider [phone] Reason for Visit * Reason Comments Dry Eye Encounter Details Date Type Department Care Team (Late st Contact Info) Description 09/10/2024 2:30 PM EDT Office Visit [facility] [address] [place] [address] Marshall Lee DO [address] [place] [address] Dry eyes (Primary Dx); Blepharitis [...] EDT Procedure Visit [facility] [address] [place] [address] Christopher Peacock DPM [address] [address] documented as of this encounter Visit Diagnoses Diagnosis Dry eyes- Primary Unspecified tear film insufficiency Blepharitis of upper and lower eyelids of both eyes, unspecified type documented in this encounter Care Teams Ct Tech Relationship Specialty Start Date End Date Declan Bruce DO [address] [place] [address] PCP - General Internal Medicine 08/31/22 documented as of this encounter
--- OUTSIDE RECORDS SUMMARY | 2024-09-23 11:44 | XMS_ITS | Encounter Summary ---
Author Organization [facility] Address [address] [place] [address] Care Team Providers Care Manager Intern Name Role Phone Declan Bruce DO Primary Care Provider [phone] Encounter Details Date Type Department Care Team [...] EDT Procedure Visit [facility] [address] [place] [address] Christopher Peacock DPM [address] [address] documented as of this encounter Visit Diagnoses Not on filedocumented in this encounter Care Teams Manager Intern Relationship Specialty Start Date End Date Declan Bruce DO [address] [place] [address] PCP - General Internal Medicine 08/31/22 documented as of this encounter
--- OUTSIDE RECORDS SUMMARY | 2024-09-23 11:44 | XMS_ITS | Encounter Summary ---
Author Organization [facility] Address [address] [place] [address] Care Team Providers Care Department Specialist Name Role Phone Declan Bruce DO Primary Care Provider [phone] Encounter Details Date Type Department Care Team (Late st Contact Info) Description 08/30/2022 Abstract [facility] [address] [facility] 100 [place] [address] Bobby Guzman DPM [address] [facility] 100 [place] [address] Social History Tobacco Use Types Packs/Day Years [...] EDT Procedure Visit [facility] [address] [place] [address] Chirstopher Peacock DPM [address] [facility] 5 [place] [address] documented as of this encounter Visit Diagnoses Not on filedocumented in this encounter Care Teams Department Specialist Relationship Specialty Start Date End Date Declan Bruce DO [address] [place] [address] PCP - General Internal Medicine 08/31/22 documented as of this encounter
--- OUTSIDE RECORDS SUMMARY | 2024-09-23 11:44 | XMS_ITS | Encounter Summary ---
Author Organization [facility] Address [address] [place] [address] Care Team Providers Care Engine Inspector Name Role Phone Declan Bruce Primary Care Provider [phone] Jaydon Emanuel MD, Garrick Unavailable [phone] Source Comments In the event this information is protected by the Federal Confidentiality of Alcohol and Drug AbusePatient Records regulations: The Federal rules restrict any use of the information to criminally investigate or prosecute any alcohol or drug abuse patient.[facility] Encounter Details Date Type Department Care Team (Late st Contact Info) Description 05/29/2024 Telephone Cardiology [address] [place] [address] Ruel Hoang MD [address] [place] [address] [place] [address] Social History Tobacco Use Types Packs/Day [...] is lower risk 7 06/05/2023 Data from: https://www.neighborhoodatlas.[facility].edu/. Last address used for calculation [address] [...] Uploaded FAX with INR lab results from [facility] into scanned documents and EP [employer] [address]. Radha IC 955 documented in this encounter Plan of Treatment Not on file documented as of this encounter Goals Goal Patient Goal Type Associated Problems Recent Progress Patient-Stated? Author Blood Pressure < 130/80 Blood Pressure 134/68(2023 12:58 PM EST) No Mary Griffith documented as of this encounter Visit Diagnoses Not on filedocumented in this encounter Care Teams Engine Inspector Relationship Specialty Start Date End Date Declan Bruce DO PCP - General Internal Medicine 06/04/13 Garrick Interiano V, MD [address] [place] [address] Primary Staff Physician Cardiology 01/24/24 documented as of this encounter
--- OUTSIDE RECORDS SUMMARY | 2024-09-23 11:44 | XMS_ITS | Encounter Summary ---
Author Organization [facility] Address [address] [place] [address] Care Team Providers Care Technology Trainer Name Role Phone Declan Bruce Primary Care Provider [phone] Encounter Details Date Type Department Care Team (Late st Contact Info) Description 09/10/2024 Bamboo flowsheet [facility] [address] [place] [address] Marshall Lee DO [address] [place] [address] Social History Tobacco Use Types [...] EDT Procedure Visit [facility] [address] [place] [address] Christopher Peacock DPM [address] [facility] 5 [place] [address] documented as of this encounter Visit Diagnoses Not on filedocumented in this encounter Care Teams Technology Trainer Relationship Specialty Start Date End Date Declan Bruce DO [address] [place] [address] PCP - General Internal Medicine 08/31/22 documented as of this encounter
--- OUTSIDE RECORDS SUMMARY | 2024-09-23 11:44 | XMS_ITS | Encounter Summary ---
Author Organization [facility] Address [address] [place] [address] Care Team Providers Care Bookie Name Role Phone Declan Bruce DO Primary Care Provider [phone] Encounter Details Date Type Department Care Team (Late Contact Info) Description 12/05/2022 Abstract [facility] [address] [facility] 100 [place] [address] Bobby Guzman DPM [address] [facility] 100 [place] [address] Social History Tobacco Use Types Packs/Day Years [...] EDT Procedure Visit [facility] [address] [place] [address] Christopher Peacock DPM [address] [facility] [address] [place] [address] documented as of this encounter Visit Diagnoses Not on filedocumented in this encounter Care Teams Bookie Relationship Specialty Start Date End Date Declan Bruce DO [address] [place] [address] PCP - General Internal Medicine 08/31/22 documented as of this encounter
--- OUTSIDE RECORDS SUMMARY | 2024-09-23 11:44 | XMS_ITS | Clinical Summary ---
Author Organization [facility] Address [address] [place] [address] Care Team Providers Care Anvilsmith Name Role Phone Declan Bruce Primary Care Provider [phone] Allergies Active Allergy Reactions Criticality Noted Date [...] [facility] [address] [place] [address] Marshall Lee DO Dry eyes (Primary Dx); Blepharitis of upper and lower eyelids of both eyes, unspecified type 09/10/2024 Bamboo flowsheet [facility] [address] [place] [address] Marshall Lee DO 09/10/2024 Travel 09/02/2024 11:00 AM EDT Office Visit [facility] [address] [place] [address] Christopher Peacock DPM Venous insufficiency (Primary Dx); Pain due to onychomycosis of toenails of both feet 09/02/2024 Bamboo flowsheet [facility] [address] [place] [address] Christopher Peacock DPM from Last 3 Months [...] Upcoming Encounters Date Type Department Care Team ([facility] st Contact Info) Description 12/02/2024 11:20 AM EDT Procedure Visit [facility] [address] [place] [address] Christopher Peacock DPM [address] [address] Health Maintenance Due Date Last Done Comments Influenza Vaccine (#1) 2024 4, 01/25/2022, 12/29/2020, Additional history exists Pneumococcal Vaccine: 65+ Years Completed 4, 11/08/2014 Insurance [employer] Care Teams Anvilsmith Relationship Specialty Start Date End Date Declan Bruce DO [address] [place] [address] PCP - General Internal Medicine 08/31/22
== END 2024-09-23 11:42 | disposition home or self-care (01) ==
LOC: WC 11:41
PROVIDERS: PCP Internal Medicine; Visit Provider Physician Assistant
DX: I87.312 Chronic venous hypertension (idiopathic) with ulcer of left lower extremity (principal); L97.822 Non-pressure chronic ulcer of other part of left lower leg with fat layer exposed
CPT/HCPCS: G0463

== ENCOUNTER 2024-09-24 07:23 | Outpatient (OUT) | payer MEDICARE, OTHER, SELFPAY ==
--- OUTSIDE RECORDS SUMMARY | 2024-09-10 14:30 | XMS_ITS | Encounter Summary ---
Author Organization [facility] Address [address] [place] [address] Care Team Providers Care Scientific Systems Analyst Name Role Phone Declan Bruce DO Primary Care Provider [phone] Reason for Visit * Reason Comments Dry Eye Encounter Details Date Type Department Care Team (Late st Contact Info) Description 09/10/2024 2:30 PM EDT Office Visit [facility] [address] [place] [address] Marshall Lee DO [address] [place] [address] Dry eyes (Primary Dx); Blepharitis [...] EDT Procedure Visit [facility] [address] [place] [address] Christopher Peacock DPM [address] [address] documented as of this encounter Visit Diagnoses Diagnosis Dry eyes- Primary Unspecified tear film insufficiency Blepharitis of upper and lower eyelids of both eyes, unspecified type documented in this encounter Care Teams Scientific Systems Analyst Relationship Specialty Start Date End Date Declan Bruce DO [address] [place] [address] PCP - General Internal Medicine 08/31/22 documented as of this encounter
--- OUTSIDE RECORDS SUMMARY | 2024-09-24 07:28 | XMS_ITS | Clinical Summary ---
Author Organization [facility] Address [address] [place] [address] Care Team Providers Care Steel Engraver Name Role Phone Unavailable Primary Care Provider [...] of Treatment Not on file Insurance [employer] [place] MEDICARE
--- OUTSIDE RECORDS SUMMARY | 2024-09-24 07:28 | XMS_ITS | Encounter Summary ---
Author Organization [facility] Address [address] [place] [address] Care Team Providers Care Greige Goods Inspector Name Role Phone Declan Bruce DO Primary Care Provider [phone] Encounter Details Date Type Department Care Team [...] EDT Procedure Visit [facility] [address] [place] [address] Christopher Peacock DPM [address] [address] documented as of this encounter Visit Diagnoses Not on filedocumented in this encounter Care Teams Greige Goods Inspector Relationship Specialty Start Date End Date Declan Bruce DO [address] [place] [address] PCP - General Internal Medicine 08/31/22 documented as of this encounter
--- OUTSIDE RECORDS SUMMARY | 2024-09-24 07:28 | XMS_ITS | Clinical Summary ---
Author Organization [facility] Address [address] [place] [address] Care Team Providers Care Water Operator Name Role Phone Declan Bruce Primary Care Provider [phone] Allergies Active Allergy Reactions Criticality Noted Date [...] [facility] [address] [place] [address] Marshall Lee DO Dry eyes (Primary Dx); Blepharitis of upper and lower eyelids of both eyes, unspecified type 09/10/2024 Bamboo flowsheet [facility] [address] [place] [address] Marshall Lee DO 09/10/2024 Travel 09/02/2024 11:00 AM EDT Office Visit [facility] [address] [place] [address] Christopher Peacock DPM Venous insufficiency (Primary Dx); Pain due to onychomycosis of toenails of both feet 09/02/2024 Bamboo flowsheet [facility] [address] [place] [address] Christopher Peacock DPM from Last 3 Months [...] Upcoming Encounters Date Type Department Care Team ([facility] st Contact Info) Description 12/02/2024 11:20 AM EDT Procedure Visit [facility] [address] [place] [address] Christopher Peacock DPM [address] [address] Health Maintenance Due Date Last Done Comments Influenza Vaccine (#1) 2024 4, 01/25/2022, 12/29/2020, Additional history exists Pneumococcal Vaccine: 65+ Years Completed 4, 11/08/2014 Insurance [employer] Care Teams Water Operator Relationship Specialty Start Date End Date Declan Bruce DO [address] [place] [address] PCP - General Internal Medicine 08/31/22
--- OUTSIDE RECORDS SUMMARY | 2024-09-24 07:28 | XMS_ITS | Encounter Summary ---
Author Organization [facility] Address [address] [place] [address] Care Team Providers Care Sales Operations Manager Name Role Phone Declan Bruce DO Primary Care Provider [phone] Encounter Details Date Type Department Care Team (Late Contact Info) Description 12/05/2022 Abstract [facility] [address] [facility] 100 [place] [address] Bobby Guzman DPM [address] [facility] 100 [place] [address] Social History Tobacco Use Types Packs/Day Years [...] EDT Procedure Visit [facility] [address] [place] [address] Christopher Peacock DPM [address] [facility] 5 [place] [address] documented as of this encounter Visit Diagnoses Not on filedocumented in this encounter Care Teams Sales Operations Manager Relationship Specialty Start Date End Date Declan Bruce DO [address] [place] [address] PCP - General Internal Medicine 08/31/22 documented as of this encounter
--- OUTSIDE RECORDS SUMMARY | 2024-09-24 07:28 | XMS_ITS | Encounter Summary ---
Author Organization [facility] Address [address] [place] [address] Care Team Providers Care Thermostat Maker Name Role Phone Declan Bruce DO Primary Care Provider [phone] Encounter Details Date Type Department Care Team (Late st Contact Info) Description 08/30/2022 Abstract [facility] [address] [facility] 100 [place] [address] Bobby Guzman DPM [address] [facility] 100 [place] [address] Social History Tobacco Use Types Packs/Day Years [...] EDT Procedure Visit [facility] [address] [place] [address] Christopher Peacock DPM [address] [facility] 5 [place] [address] documented as of this encounter Visit Diagnoses Not on filedocumented in this encounter Care Teams Thermostat Maker Relationship Specialty Start Date End Date Declan Bruce DO [address] [place] [address] PCP - General Internal Medicine 08/31/22 documented as of this encounter
--- OUTSIDE RECORDS SUMMARY | 2024-09-24 07:28 | XMS_ITS | Clinical Summary ---
Author Organization [facility] Address [address] [place], [place] [id number] Care Team Providers Care Manager [employer] Name Role Phone Declan Bruce [place] PEDROZA Primary Care Provider [phone] Jaydon Emanuel MD, Garrick Caceres [phone] Allergies No known active allergies Medications allopurinol 300 mg tablet Take 300 mg by mouth once daily. Active ACETAMINOPHEN (TYLENOL 8 HOUR ORAL) Take by mouth as needed. 325 mg - 500 mg only as needed (not more than once per day) Active pravastatin (PRAVACHOL) 80 mg tablet Take 1 tablet by mouth daily at bedtime. 90 tablet 3 6 Active potassium chloride ER (K-DUR, KLOR-CON) 20 mEq tablet Take 1 tablet by mouth once daily. 30 tablet 6 6 Active COMPOUNDED PRESCRIPTION Skin cream - patient unsure of name. Active furosemide (LASIX) 40 mg tablet Take 1 tablet by mouth once daily. 90 tablet 3 8 Active metFORMIN (GLUCOPHAGE) 500 mg tablet Take 500 mg by mouth daily with breakfast. Active warfarin (COUMADIN) 1 mg tabletIndications :Atrial fibrillation, persistent (HCC) Take 4 mg by mouth once daily. Active empagliflozin (JARDIANCE) 10 mg tablet Take 1 tablet by mouth daily with breakfast. 90 tablet 3 4 Active Active Problems Problem Noted Date Diagnosed Date Chronic diastolic heart failure 06/05/2023 Mixed hyperlipidemia 06/05/2023 Obesity, Class III, BMI >= 40 10/23/2019 Paroxysmal atrial flutter 05/30/2018 Paroxysmal atrial fibrillation 12/04/2015 Atrial fibrillation, persistent 07/22/2015 Atherosclerosis of [place] co ronary artery of [place] heart without angina pectoris 07/10/2015 Diabetes mellitus type 2, controlled, without co mplications 07/10/2015 Atrial fibrillation 07/08/2014 CHRISTIAN (obstructive sleep apnea) 01/07/2014 HTN (hypertension) 01/07/2014 Dyslipidemia 01/07/2014 Encounters Date Type Department Care Team Description 06/26/2024 Telephone Cardiology [address] [place] [address] Ruel Hoang MD from Last 3 Months Immunizations Immunization Administration Dates Next Due COVID-19 original vaccine, f ull dose, monovalent (MODERNA) 06/01/2020,05/04/2020 influenza (HD-IIV3) vaccine, age 65+ yr, high dose, trivalent, PF (FLUZONE HIGH-DOSE) 12/10/2015 influenza (IIV3) vaccine, tr ivalent, PF, intradermal (FLUZONE INTRADERMAL) 01/08/2016 influenza (IIV4) vaccine, ag e 6 mo - 64 yr, quadrivalent, PF (AFLURIA, FLUARIX, FLULAVAL, FLUZONE) 02/09/2015 influenza (aIIV3) vaccine, a ge 65+ yr, trivalent, PF (FLUAD) 12/01/2017 pneumococcal polysaccharide (PPV23) vaccine, 23 valent (PNEUMOVAX 23) 11/08/2014 Family History Medical History Relation Comments Heart Father Heart Mother Relation Status Comments Father (Age 51) Mother (Age 83) Social History Tobacco Use Types Packs/Day Years Used Date Smoking Tobacco: Former Cigars Q uit: 12/11/2012 Smokeless Tobacco: Never Tobacco Cessation:Counseling Given: Not Answered Alcohol Use Standard Drinks/Week Comments Not Currently 0 (1 standard drink = 0.6 oz pur e alcohol) PHQ-2 Answer Date Recorded PHQ2 Score 0 05/30/2018 Area Deprivation Index Answer Date Stephan rded National Score (1-100), lower number is lower ri sk 79 06/05/2023 State Score (1-10), lower number is lower risk 7 06/05/2023 Data from: https://www.neighborhoodatlas.medicine.[facility].edu/. Last address used for calculation [address] [place] [address] 06/05/2023 Sex and Gender Information Value Date Recorded Sex Assigned at Not on file Legal Sex Male 10:33 AM EDT Gender Identity Not on file Sexual Orientation Not on file Last Filed Vital Signs Vital Sign Reading Time Taken Comments Blood Pressure 134/68 02/13/2024 12:58 PM EST Pulse 66 02/13/2024 12:58 PM EST Temperature 36.8 C (98.3 F) 10/24/2019 8:00 AM EDT Respiratory Rate 20 10/23/2019 9:00 PM EDT Oxygen Saturation 96% 02/13/2024 12: 58 PM EST Inhaled Oxygen Concentration - - Weight 120.2 kg (264 lb 15.9 oz) 2023 12:58 PM EST Height 165.1 cm (5' 5 ) 07/04/2023 8:58 AM EDT Body Mass Index 44.1 07/04/2023 8:58 AM EDT Plan of Treatment Health Maintenance Due Date Last Done Comments Diabetic Foot Exam 1955 Dilated Retinal Exam 1955 Urine Albumin:Creatinine Ratio 1955 Annual PCP Team Chronic Dise ase Visit 1963 Anxiety Screening 1963 Depression Screening 1963 Shingrix Vaccine (1 of 2) 1995 Medicare Annual Wellness Visit 01/11/2010 HbA1C 03/21/2021 09/18/2020 LDL Cholesterol 09/18/2021 09/18/2020, 04/03/2019 Advance Directive Discussion 03/13/2024 Covid-19 Vaccine (5 - 2023-2 5 season) 2024 01/03/2024, 01/20/2021, 06/01/2020, Additional history exists Influenza Vaccine (#1) 2024 , 01/25/2022, 12/29/2020, Additional history exists DTaP,Tdap,Td Vaccine (2 - Td or Tdap) 03/16/2033 03/16/2023, 11/21/2013, 12/23/2012 Pneumococcal Vaccine: 50+ Completed 2023, 06/04/2015, 11/08/2014, Additional history exists RSV Vaccine Completed 12/08/2023 Goals Goal Patient Goal Type Associated Problems Recent Progress Patient-Stated? Author Blood Pressure < 130/80 Blood Pressure 134/68(2023 12:58 PM EST) No Mary Griffith Procedures Procedure Name Priority Date/Time Associated Diagnosis Comments EXTERNAL LAB 07/10/2024 3:51 PM EDT EXTERNAL LAB 06/26/2024 9:05 AM EDT HEMOGLOBIN A1C Routine 09/18/2020 10:28 AM EDT Controlled type 2 diabetes mellitus without complication, without long-term current use of insulin (HCC) LIPID PANEL, FASTING Routine 09/18/2020 10:28 AM EDT Coronary artery disease involving [place] coronary artery of [place] heart without angina pectoris from Last 3 Months or Most Recently Relevant to Health Maintenance Results * EXTERNAL LAB (07/10/2024 3:51 PM EDT) Only the most recent of2 resultswithin the time period is included. us External Provider PA-C LABORATORY Final Res ult * LIPID PANEL BASIC (09/18/2020 10:28 AM EDT) Cholesterol, Total 143 <200 mg/dL 09/18/2020 11:17 AM [facility] Triglyceride 83 <150 mg/dL 09/18/2020 11:17 AM [facility] HDL Cholesterol 48 >39 mg/dL 11:17 AM [facility] LDL Cholesterol, Calculated 78 <100 mg/dL 09/18/2020 11:17 AM [facility] Comment: <100 mg/dL, Optimal 100-129 mg/dL, Near optimal/above optimal 130-159 mg/dL, Borderline high 160-189 mg/dL, High >189 mg/dL, Very high Secondary prevention optimal LDL Cholesterol levels are recommended to be < 70 mg/dL Non HDL Cholesterol 95 <130 mg/dL 09/18/2020 11:17 AM [facility] Comment: <130 mg/dL, Optimal 130-159 mg/dL, Near optimal/above optimal 160-189 mg/dL, Borderline high 190-219 mg/dL, High >219 mg/dL, Very high Secondary prevention optimal non HDL Cholesterol levels are recommended to be < 100 mg/dL Fasting Time 10 hrs 09/18/2020 10:30 AM [facility] VLDL Cholesterol 17 <30 mg/dL 09/19/19 11:17 AM [facility] TC:HDL Ratio 2.98 <5.10 09/18/2020 11:17 AM [facility] LDL:HDL Ratio 1.63 <2.54 09/18/2020 11:17 AM [facility] Comment: Reference: 1. National Cholesterol Education Program ATP III Guideline At-A-Glance Quick Desk Reference: National Heart, Lung, and Blood [place]. National Institutes of Health. 2001: NIH Publication No. 01-3305. 2. An International Atherosclerosis Society position paper: global recommendations for the management of dyslipidemia: executive summary, Atherosclerosis. 2014: 232(2):410-413. Blood BLOOD SPECIMEN / Unknown 09/18/2020 10:28 AM EDT 09/18/2020 10:30 AM EDT Garrick Emanuel MD LABORATORY Final Result [facility] [address] [facility] [place] [address], [facility] * (ABNORMAL) HGB A1C (09/18/2020 10:28 AM EDT) Hemoglobin A1C 5.9(H) 4.3 - 5.6 % 09/18/2020 7:[address] [facility] Comment: [place] Diabetes Association guidelines indicate that patients with HgbA1c in the range 5.7-6.4% are at increased risk for development of diabetes, and intervention by lifestyle modification may be beneficial. HgbA1c greater or equal to 6.5% is considered diagnostic of diabetes. Estimated Average Glucose 123 mg/dL 09/18/2020 7:[address] [facility] Comment: eAG: (Estimated average glucose) is a calculated value from HgbA1c and is in store marketing representative of the average blood glucose level in the last 2-3 month period. Blood WHOLE BLOOD SPECIMEN / Unknown 09/18/2020 10:28 AM EDT 09/18/2020 10:30 AM EDT us Garrick Emanuel MD LABORATORY Final Result [facility] [address] [place] [address] [facility] [address] [place] [address] from Last 3 Months or Most Recently Relevant to Health Maintenance Insurance MEDICARE Member Subscriber Plan / Payer (Ef fective 2010-Present) Name:Jorge Nicholas Member ID:[id number] Relation to Subscriber:Self Name:Jorge Nicholas Subscriber ID:[id number] Payer ID:Not on file Group ID:Not on file Type:Medicare Address: [facility] [place] [id number] MEDICARE SUPPLEMENT Care Teams Manager Six Sigma Relationship Specialty Start Date End Date Declan Bruce DO PCP - General Internal Medicine 06/04/13 Garrick Interiano V, MD [address] [place] [address] Primary Staff Physician Cardiology 01/24/24
--- OUTSIDE RECORDS SUMMARY | 2024-09-24 07:28 | XMS_ITS | Encounter Summary ---
Author Organization [facility] Address [address] [place] [address] Care Team Providers Care Ict Customer Support Officer Name Role Phone Declan Bruce Primary Care Provider [phone] Jaydon Emanuel MD, Garrick Unavailable [phone] Source Comments In the event this information is protected by the Federal Confidentiality of Alcohol and Drug AbusePatient Records regulations: The Federal rules restrict any use of the information to criminally investigate or prosecute any alcohol or drug abuse patient.[facility] Encounter Details Date Type Department Care Team (Late st Contact Info) Description 05/29/2024 Telephone Cardiology [address] [place] [address] Ruel Hoang MD [address] [place] [address] [place] [address] Social History Tobacco Use Types Packs/Day [...] is lower risk 7 06/05/2023 Data from: https://www.neighborhoodatlas.[facility].edu/. Last address used for calculation [address] [...] Uploaded FAX with INR lab results from [facility] into scanned documents and EP Re [address] drive. Radha IC 955 documented in this encounter Plan of Treatment Not on file documented as of this encounter Goals Goal Patient Goal Type Associated Problems Recent Progress Patient-Stated? Author Blood Pressure < 130/80 Blood Pressure 134/68(2023 12:58 PM EST) No Mary Griffith documented as of this encounter Visit Diagnoses Not on filedocumented in this encounter Care Teams Ict Customer Support Officer Relationship Specialty Start Date End Date Declan Bruce DO PCP - General Internal Medicine 06/04/13 Garrick Interiano V, MD [address] [place] [address] Primary Staff Physician Cardiology 01/24/24 documented as of this encounter
--- OUTSIDE RECORDS SUMMARY | 2024-09-24 07:28 | XMS_ITS | Encounter Summary ---
Author Organization [facility] Address [address] [place] [address] Care Team Providers Care Senior Payroll Specialist Name Role Phone Declan Bruce Primary Care Provider [phone] Encounter Details Date Type Department Care Team (Late st Contact Info) Description 09/10/2024 Bamboo flowsheet [facility] [address] [place] [id number] Marshall Lee DO [address] [place] [address] Social History Tobacco Use Types [...] EDT Procedure Visit [facility] [address] [place] [id number] Christopher Peacock DPM [address] [facility] [address] [place] [address] documented as of this encounter Visit Diagnoses Not on filedocumented in this encounter Care Teams Senior Payroll Specialist Relationship Specialty Start Date End Date Declan Bruce DO [address] [place] [id number] PCP - General Internal Medicine 08/31/22 documented as of this encounter
--- OUTSIDE RECORDS SUMMARY | 2024-09-24 07:30 | XMS_ITS | CCD ---
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 Role Phone Declan Swanson DO Primary [...] Unavailable Kiki, DO Manriquez Primary Care Provider [phone] MD Bruce Shine II Attending Provider Ruben Celis Unavailable MD Ruben Celis Attending Provider [phone] Declan Swanson DO Primary Care Provider Jaydon Emanuel MD, Albert Unavailable VENKAT EVANS Referring Unavailable DECLAN SWANSON Primary Care Unavailable VENKAT EVANS Referring Unavailable DECLAN SWANSON Primary Care Unavailable Ruben Diane MD Attending Provider [phone] Declan Swanson DO Primary Care Provider Ruben Diane MD Attending Provider [phone] Declan Swanson DO Primary Care Provider [phone] ALIX BARRIOS Attending Unavailable DECLAN SWANSON Primary Care Unavailable VENKAT EVANS Attending Unavailable VENKAT EVANS Referring Unavailable KIKI, DECLAN Coleman Primary Care Unavailable VENKAT EVANS Referring Unavailable DECLAN SWANSON Primary Care Unavailable Ruben Diane Admitting Unavailable Benedicto, Ruben Attending Unavailable Declan Swanson Primary Care Unavailable Yvan Mercedes Admitting Yvan Izquierdo Attending UnaDeclan Hough Primary Care Unavailable Ball DO, Declan Primary Care Provider [phone] Yvan Mercedes MD Attending Provider Declan Swanson DO [place] Primary Care Provider Declan Swanson DO Primary Care Provider [phone] Declan Swanson DO Attending Provider [phone] Yvan Mercedes MD Attending Provider CHRISTOPHER TREVIZO Attending Unavailable JOHN CHURCHILL Attending Unavailable JOHN CHURCHILL Attending Unavailable Allergies Allergy Classification Reported Allergen(s) Allergy Type Date of Onset Reaction(s) Facility (20 sources) Latex Drug allergy 4 Unknown, Unknown Reaction [facility] (20 sources) Iodinated contrast media (substance) Drug allergy 4 Unknown [facility] Work Phone: (9 sources) Iodinated Contrast Media; 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: [Iodinated Contrast Media] Allergy to substance 4 Unknown Reaction [facility] (1 source) Latex Drug allergy (disorder) 5 [facility] Repository (5 sources) Latex Allergy to substance 4 Unknown [facility] Medications Current Medications Medication Drug Class(es) Dates [...] tablet Active 300 MG PO Daily 90 August 30, 2023 12:03pm Complies with drug therapy Comment on above: Take 300 mg by mouth once daily. Blood-Glucose Meter (Accu-Chek Guide Glucose Meter) mis (3 sources) Start: Blood-Glucose Meter (Accu-Chek Guide Glucose Meter) mis Active 0 .ROUTE .MEDSUPPLY May 09, 2024 1:00am As directed cephalexin 500 mg oral tablet (11 sources) Cephalosporin Antibacterial Start: take 1 tablet by mouth every eight hours Cephalexin 500 MG 1 tablet Orally tid for 7 days Mar, Active Start: 11-04-2022 take 1 capsule by [facility] every twelve hours Cephalexin 500 MG 1 capsule Orally bid for 7 days Oct, Not-Taking/PRN COMPOUNDED PRESCRIPTION (20 sources) COMPOUNDED PRESC RIPTION Skin cream - patient unsure of name. Active COMPOUNDED PRESC RIPTION Skin cream - patient unsure of name. 0 Active Comment on above: Skin cream - patient unsure of name. doxycycline hyclate 100 mg oral capsule (20 sources) Tetracycline-class Drug Start: 06-23-2023 End: 05-22-2024 doxycycline (Vibramycin) 100 MG capsule Twice daily 06/28/2023 Active Start: 01-02-2023 take 1 capsule by [facility] every twelve hours Doxycycline Hyclate 100 MG 1 capsule Orally Twice a day for 5 days Dec, Active empagliflozin 10 mg oral tablet (10 sources) Sodium-Glucose Cotransporter 2 Inhibitor Start: 12-08-2023 take 1 tablet by mouth once daily at breakfast empagliflozin (JARDIANCE) 10 mg tablet Take 1 tablet by mouth daily with breakfast. 90 tablet 3 12/08/2023 Active furosemide 40 mg oral tablet (20 sources) Loop Diuretic Start: 07-31-2024 take 1 tablet by mouth once daily Furosemide 40 mg tablet Active 40 MG PO Daily July 31, 2024 12:59pm Complies with drug therapy Start: 01-25-2024 End: 07-31-2024 take 1 tablet by mouth once daily Furosemide 40 mg tablet Discontinued 0 .ROUTE .COMPLEX January 25, 2024 3:21pm July 31, 2024 1:00pm Take 1 tablet by mouth once daily [...] Take 1 tablet by rod once daily. hydrocortisone 25 mg/ml topical cream (5 sources) Corticosteroid Start: 09-11-2023 hydrocortisone 2.5 % cream APPLY TO FACE DAILY MONDAY-MONDAY, WEEKENDS OFF FOR 2 WEEKS AND THEN USE NEEDED FOR FLARES 09/11/2023 Active ketoconazole 20 mg/ml topical cream (5 sources) Azole Antifungal Start: 09-11-2023 ketoconazole (NIZOral) 2 % cream APPLY 2 GRAMS TO AFFECTED AREAS ON FACE AND NECK DAILY REPEAT DIRECTED CONTINUOUSLY NEEDED 09/11/2023 Active mupirocin 0.02 mg/mg topical ointment (20 sources) RNA Synthetase Inhibitor Antibacterial Start: 09-15-2022 Mupirocin 2 % 1 application Externally Twice a day for 5 days Sep, Active perflutren lipid microspheres 1.3 mL in NaCl (PF) 0.9% 10 mL injection (DEFINITY) (20 sources) Start: 12-31-2021 End: 04-01-2023 perflutren lipid microspheres 1.3 mL in NaCl (PF) 0.9% 10 mL injection (DEFINITY) potassium chloride 20 meq extended release oral tablet (20 sources) Start: 07-31-2024 take 1 tablet by mouth once daily Potassium Chloride 20 mEq tablet extended release Active 20 MEQ PO Daily July 31, 2024 12:59pm Complies with drug therapy Start: 07-25-2024 End: 07-31-2024 take 1 tablet by mouth once daily Potassium Chloride 20 mEq tablet extended release Discontinued 0 .ROUTE .COMPLEX July 25, 2024 7:41am July 31, 2024 1:00pm Take 1 tablet by mouth once daily Start: 12-16-2016 End: 07-25-2024 take 1 tablet by mouth once daily Potassium Chloride 20 mEq tablet extended release Discontinued 20 MEQ PO Daily August 29 2024 12:04pm July 25, 2024 7:41am Start: 07-25-2015 take 1 tablet by rod th once daily KLOR-CON 20 MEQ ER tablet Take 20 mEq by mouth Daily 07/24/2023 Active take 20 mEq by mouth in the morning potassium chloride (Klor-Con) 20 MEQ packet Take 20 mEq by mouth in the morning and 20 mEq before bedtime. Active Comment on above: Take 1 tablet by rod th once daily. predniSONE 20 mg oral tablet (17 sources) Start: 08-09-2023 End: 12-18-2023 predniSONE (Deltasone) 20 MG tablet As Directed 08/09/2023 Active Start: 01-03-2023 take 1 tablet by rod twice daily predniSONE 10 MG 1 tablet Orally twice daily w/ food for 5 days Dec, Active 125 ml sodium chloride 9 mg/ml prefilled syringe (20 sources) Start: 12-31-2021 End: 04-01-2023 sodium chloride 0.9 % (flush) 10 mL (BD POSIFLUSH) telmisartan 20 mg oral tablet (2 sources) Angiotensin 2 Receptor Mohan Start: 06-17-2024 take 1 tablet by mouth once daily Telmisartan 20 mg tablet Active 20 MG PO Daily June 17, 2024 12:00am Complies with drug therapy triamcinolone acetonide 1 mg/ml topical cream (20 sources) Corticosteroid Start: 05-01-2023 triamcinolone (Kenalog) 0.1 % cream Twice daily 05/01/2023 Active Start: 05-01-2023 End: 07-31-2024 Triamcinolone Acetonide 0.1 % cream Discontinued 1 APPLIC TOPICAL Twice daily 80 May 01, 2023 1:00am July 31, 2024 12:59pm Start: 11-26-2019 Start: 11-26-2019 Kenalog -40 mg [...] sources) Vitamin K Antagonist Start: 12-13-2022 End: 09-03-2024 take 6 mg by mouth once daily Warfarin 4 mg tablet Active 6 MG PO Daily 135 90 September 03, 2024 8:17pm Complies with drug therapy Start: 12-13-2022 End: 08-30-2023 take 6 mg by mouth once daily Warfarin Active 6 MG PO Daily 135 90 August 30, 2023 12:03pm Start: 12-16-2016 End: 08-17-2020 take 1 tablet by mouth once daily Warfarin 4 mg tablet Discontinued 4 MG PO Daily December 16, 2016 12:00am August 17, 2020 12:47pm take 4 tablets by mo [facility] once daily warfarin (COUMADIN) 1 mg tablet Indications: Atrial fibrillation, persistent (HCC) Take 4 mg by mouth once daily. Active Warfarin 4mg 4 m g 1 1/2 tablet orally daily Active Coumadin Active Comment on above: Take 4 mg by mouth o nce daily. Completed/Discontinued Medications Medication Drug Class(es) Dates Sig (Normalized) Sig (Original) apixaban 5 mg oral tablet (16 sources) Factor Xa Inhibitor Start: End: take 1 tablet by mouth twice daily Apixaban (Eliquis) 5 mg tablet Discontinued 5 MG PO Twice daily August 17, 2020 12:00am December 13, 2022 8:45am Comment on above: Take 1 tablet by [facility] twice daily. aspirin 81 mg delayed release oral tablet (20 sources) Platelet Aggregation Inhibitor, Nonsteroidal Anti-inflammator y Drug take 1 tablet by mouth every twenty-four hours Aspirin 81 MG 1 tablet Orally Once a day Not-Taking/PRN hydroCHLOROthiazide 50 mg oral tablet (18 sources) Thiazide Diuretic Start: 8 End: take 1 tablet by mouth once daily Hydrochlorothiazide 50 mg Tablet Discontinued 1 TAB PO Daily August 18, 2017 12:00am August 17, 2020 12:45pm take 2 tablets by mo [facility] in the morning hydroCHLOROthiazide (HYDRODiuril) 25 MG tablet Take 50 mg by mouth in the morning. Active metFORMIN hydrochloride 500 mg oral tablet (20 sources) Biguanide Start: 12-16-2016 End: 07-31-2024 take 1 tablet by mouth once daily Metformin 500 mg tablet Discontinued 500 MG PO Daily 90 90 August 30, 2023 12:04pm July 31, 2024 12:59pm On Hold: None Comment on above: Take 500 mg by mouth daily with breakfast. pravastatin sodium 80 mg oral tablet (20 sources) HMG-CoA Reductase Inhibitor Start: 06-09-2015 End: 08-30-2023 take 1 tablet by mouth once daily Pravastatin 80 mg tablet Discontinued 80 MG PO Daily December 16, 2016 12:00am August 30, 2023 12:05pm Comment on above: Take 1 tablet by rod daily at bedtime. sotalol hydrochloride 80 mg oral tablet (13 sources) Antiarrhythmic Start: 12-16-2016 End: 08-17-2020 take [...] 16, 2016 12:00am December 16, 2016 11:22am take 1 capsule by mo [facility] every twenty-four hours in the morning tamsulosin (Flomax) 0.4 MG 24 hr capsule Take 0.4 mg by mouth in the morning. Active traZODone hydrochloride 50 mg oral tablet (3 sources) Serotonin Reuptake Inhibitor Start: 05-22-2024 End: 07-31-2024 take 0.5-1 tablets by mouth once daily at bedtime as needed Trazodone 50 mg tablet Discontinued 0 PO Daily at bedtime as needed for insomnia May 22, 2024 12:00am July 31, 2024 12:59pm 1/2 - 1 tablet orally daily at bedtime PRN; Problems Active Problems Problem Classification Problem Date Documented Da te Episodic/Chronic Acute bronchitis (14 sources) Acute bronchitis; 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: [Acute bronchitis due to other specified organisms] Onset: 07-17-2014 Episodic Allergic reactions (9 sources) Atopic dermatitis; 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: [Atopic dermatitis, unspecified] 08-09-2023 Chronic Allergic reactions (12 sources) Inflammatory dermatosis; 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: [Dermatitis, unspecified] Onset: 11-30-2015 08-09-2023 Episodic Aortic; peripheral; and visceral artery aneurysms (7 sources) Aneurysm of ascending aorta; 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: [Ascending aortic aneurysm] 06-09-2024 Chronic Comment on above: Echo: 3.9cm - 11/2023 Calculus of urinary tract (20 sources) History of calculus of kidney; 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: [Personal history of urinary calculi] Episodic Cardiac dysrhythmias (20 sources) Persistent atrial fibrillation; 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: [Other persistent atrial fibrillation] Onset: 05-15-2013 Chronic Comment on above: Echo: LVEF 60%, norm al RV size/function, RVSP 58 - 11/2023 Echo: LVEF 60%, LVH, normal RV size/function, RVSP 58, Aorta 3.9cm, - 11/2023 Cataract (5 sources) After-cataract of right eye; 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: [Other secondary cataract, right eye] Onset: 08-23-2023 08-23-2023 Chronic Chronic obstructive pulmonary disease and bronchiectasis [...] Coronary atherosclerosis; 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: [Atherosclerotic heart disease of [place] coronary artery without angina pectoris] Onset: 07-10-2015 07-10-2015 Chronic Comment on above: Echo: LVEF 60%, norm al RV size/function, RVSP 58 - 11/2023 Echo: LVEF 60%, LVH, normal RV size/function, RVSP 58, Aorta 3.9cm, - 11/2023 Diabetes mellitus with complications (20 sources) [...] Vaccination given; 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: [Encounter for immunization] Episodic Inflammation; infection of eye (except that caused by tuberculosis or sexually transmitteddisease) (6 sources) Blepharitis of upper and lower eyelids of bilateral eyes; 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: [Unspecified blepharitis right eye, upper and lower eyelids] Onset: 08-23-2023 08-23-2023 Episodic Open wounds of extremities (20 sources) [...] following joint replacement surgery] Chronic Other aftercare (10 sources) Patient encounter status; 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: [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] Episodic Comment on above: PSA: 04.05 Other aftercare (4 sources) assisted (current) use of anticoagulants; 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: [Long-term (current) use of anticoagulants] Onset: 08-10-2022 02-22-2024 Episodic Other aftercare (5 sources) Encounter for therapeutic drug level monitoring; 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: [ENC THERAPEUTC DRUG LEVL MONITORING] Onset: 07-09-2022 Episodic Other aftercare (2 sources) Other usp (current) drug therapy Episodic Other aftercare (1 source) Drug therapy finding; 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: [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] 07-04-2023 Episodic Other aftercare (6 sources) Anticoagulant effect; 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: [assisted (current) use of anticoagulants] 02-22-2024 Episodic Other [...] left hip] Episodic Other connective tissue disease (5 sources) Hand pain; 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: [Pain in left hand] 04-22-2024 Episodic Other connective tissue disease (1 source) Pain of left hand; 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: [Pain in left hand] 04-22-2024 Episodic Other diseases of kidney and ureters [...] 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: [Venous insufficiency (chronic) (peripheral)] Onset: 01-24-2017 07-31-2024 Episodic Other diseases of veins and lymphatics (20 sources) Venous insufficiency of leg; 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: [Venous insufficiency (chronic) (peripheral)] 08-20-2023 Episodic Other diseases of veins and lymphatics (20 sources) Venous insufficiency (chronic) (peripheral); 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: [Venous (peripheral) insufficiency, unspecified] Onset: 02-22-2022 Episodic Other diseases of veins and lymphatics (2 sources) Vascular insufficiency; 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: [Venous insufficiency (chronic) (peripheral)] 09-02-2024 Episodic Other eye disorders (6 sources) Dry eyes; 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: [Dry eye syndrome of bilateral lacrimal glands] Onset: 08-23-2023 08-23-2023 Episodic Other gastrointestinal disorders (3 sources) Swallowing painful; 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: [Dysphagia, unspecified] Episodic Other gastrointestinal disorders (1 source) Dysphagia, unspecified Episodic Other injuries and conditions due to external causes (5 sources) History of fall; 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: [History of falling] Episodic Other injuries and conditions due to external causes (6 sources) Injury of left wrist; 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: [Other [...] Onset: 09-28-2021 Episodic Other lower respiratory disease (9 sources) Nodule of lung; 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: [Solitary pulmonary nodule] 08-20-2023 Episodic Comment on above: CT: 12mm RUL, 11mm R LL - 2018 (stable since 2016)CT: 14mm R - 12/2019, PET/CT: 14mm Right - 12/2019CT: 15mm R - 2/T: 13mm R - 8T: 11.6mm R - 7/T: 12mm - 08/2022 Other nervous system disorders [...] Chronic Other nutritional; endocrine; and metabolic disorders (3 sources) Obesity; 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: [Obesity, unspecified] 05-07-2024 Chronic Other [...] and visceral atherosclerosis (20 sources) 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; 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: [Unspecified atherosclerosis of [place] arteries of extremities, bilateral legs] Chronic Pulmonary heart disease (7 sources) Pulmonary hypertension; 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: [Pulmonary hypertension, unspecified] 06-09-2024 Chronic Comment on above: Echo: RVSP 58, LVEF 60% - 11/2023 Residual codes; unclassified (20 sources) Obstructive sleep apnea syndrome; 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: [Obstructive sleep apnea (adult) (pediatric)] Onset: 01-07-2014 01-07-2014 Chronic Residual codes; unclassified (10 sources) Obstructive sleep apnea (adult) (pediatric); 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: [...] persistent (HCC)] Onset: 10-23-2019 Unclassified (1 source) Permanent atrial fibrillation; 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: [Permanent atrial fibrillation] Onset: 07-31-2024 Past or Other Problems Problem Classification Problem Date Documented Da te Episodic/Chronic Abdominal pain (5 sources) Lower abdominal pain; 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: [Lower abdominal pain, unspecified] Onset: 06-01-2016 Episodic Bacterial infection; unspecified site (5 sources) Bacterial infectious disease; 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: [Bacterial infection, unspecified, in conditions classified elsewhere and of unspecified site] Onset: 04-03-2017 Episodic Blindness and vision defects (10 sources) Subjective visual disturbance; 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: [Unspecified subjective visual disturbances] Onset: 08-23-2023 08-23-2023 Episodic Ha (5 sources) Burn of second [...] [Other malaise and fatigue] Onset: 11-28-2016 Episodic Mycoses (7 sources) Onychomycosis; 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: [Tinea unguium] Onset: 08-30-2022 08-30-2022 Episodic Noninfectious gastroenteritis (5 sources) Non-infective enteritis [...] LEFT LOWER LEG] Onset: 02-19-2022 Episodic Other connective tissue disease (1 source) Pain in left hand; 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: [Pain in left hand] Onset: 04-23-2024 Episodic Other gastrointestinal disorders (5 sources) Diarrhea; [...] Test Name Value Interpretation Reference Range Facility [facility] ECG *CARDIOLOGY ONLY*on 07-31-2024 [facility] ECG *CARDIOLOGY ONLY* [facility] [address] Electrocardiograph Report Signed Patient: Jorge Davis MR#: [id number] 14 : 1945 Acct:[id number] Age/Sex: 79 / M ADM Date: 07/31/24 Loc: [facility]GCARDIO Room: Type: [facility] Attending Dr: Yvan Mercedes MD Ordering Provider: [...] undetermined Abnormal ECG Confirmed by Yvan Mercedes ([id number]) on 07/31/2024 2:59:00 PM Referred By: Electronically Signed By: Yvan Mercedes Transcribed By: MUS Signed By Yvan Mercedes MD 07/31/24 1459 Normal [facility] CNPN Telephone (CARDMN) JORGE DAVIS ([id number]) 1945 M Date Time Provider Department 06/26/24 RUBEN DENTON During your visit today, we recorded the following information about you: Radha Gates 06/26/2024 9:07 AM Signed Uploaded INR lab results FAX into scanned documents and [employer]. [employer] [id number] Radha Gates 07/10/2024 3:52 PM Signed Uploaded INR results form [facility] FAX into scanned documents and [employer] [address]. [employer] [id number] Allergies As of Date: 06/26/2024 [...] Atrial fibrillation (HCC) [I48.91] 07/08/2014 Atherosclerosis of [place] coronary artery of na*07/10/2015 Diabetes mellitus type 2, controlled, without c*07/10/2015 Atrial fibrillation, persistent (HCC) [I48.19] 07/22/2015 Paroxysmal atrial fibrillation (HCC) [I48.0] 12/04/2015 Paroxysmal atrial flutter (HCC) [I48.92] 05/30/2018 Obesity, Class III, BMI >= 40 [E66.813] 10/23/2019 Chronic diastolic heart failure (HCC) [I50.32] 06/05/2023 Mixed hyperlipidemia [E78.2] 06/05/2023 Encounter Status:Closed by RADHA GATES on 07/11/24 Normal [facility] Basophils Auto (Bld) [#/Vol] on 06-15-2024 Basophils (Bld) [#/Vol] Automated basophil count 0.0-0.1 [facility] Basophils (Bld) [#/Vol] 0.1 10 3/uL 0.0-0.1 [facility] Basophils/100 WBC Auto (Bld) on 06-15-2024 Basophils/100 WBC (Bld) Automated basophil % 0.2-2.0 [facility] Basophils/100 WBC (Bld) 1.0 % 0.2-2.0 [facility] Cholesterol in LDL Calc [Mas s/Vol]on 06-15-2024 Cholesterol in LDL [Mass/Vol] Cholesterol in LDL [Mass/volume] in Serum or Plasma by calculation [facility] Comment on above: <100 mg/dl [id number] 0-129 mg/dl NEAR OR ABOVE [id number] mg/dl BORDERLINE [id number] mg/dl HIGH>190 mg/dl VERY HIGH Cholesterol in LDL [Mass/Vol] 58.0 mg/dL [facility] Comment on above: <100 mg/dl [id number] 0-129 mg/dl NEAR OR ABOVE [id number] mg/dl BORDERLINE [id number] mg/dl HIGH>190 mg/dl VERY HIGH Cholesterol in VLDL Calc [Ma ss/Vol]on 06-15-2024 Cholesterol in VLDL [Mass/Vol] Cholesterol in VLDL [Mass/volume] in Serum or Plasma by calculation [facility] Cholesterol in VLDL [Mass/Vol] 10.0 mg/dL [facility] Eosinophils/100 WBC Auto (Bl d)on 06-15-2024 Eosinophils/100 WBC (Bld) Automated eosinophil % 0.9-7.0 [facility] Eosinophils/100 WBC (Bld) 1.3 % 0.9-7.0 [facility] Erythrocyte distribution wid th Auto (RBC) [Ratio]on 06-15-2024 Erythrocyte distribution width (RBC) [Ratio] Erythrocyte distribution width [Ratio] by Automated count High 11.0-15.0 [facility] Erythrocyte distribution width (RBC) [Ratio] 15.7 % High 11.0-15.0 [facility] Estimated glomerular filtrat ion rate (GFR) non- Americanon 06-15-2024 GFR/1.73 sq M.predicted among non-blacks MDRD (S/P/Bld) [Vol rate/Area] Estimated glomerular filtration rate (GFR) non- >=60 mL/min/1.73m 2 [facility] GFR/1.73 sq M.predicted among non-blacks MDRD (S/P/Bld) [Vol rate/Area] mL/min/{1.73_m2} >=60 mL/min/1.73m 2 [facility] Globulin Calc (S) [Mass/Vol] on 06-15-2024 Globulin (S) [Mass/Vol] Serum globulin measurement by calculation (mass/volume) [facility] Globulin (S) [Mass/Vol] 4.1 g/dL [facility] Glucose mean value [Mass/vol ume] in Blood Estimated from glycated hemoglobinon 06-15-2024 Average glucose Estimated from glycated hemoglobin (Bld) [Mass/Vol] Glucose mean value [Mass/volume] in Blood Estimated from glycated hemoglobin [facility] Average glucose Estimated from glycated hemoglobin (Bld) [Mass/Vol] 134 mg/dL [facility] Hematocrit Auto (Bld) [Volum e fraction]on 06-15-2024 Hematocrit (Bld) [Volume fraction] Hematocrit [Volume Fraction] of Blood by Automated count 42.0-54.0 [facility] Hematocrit (Bld) [Volume fraction] 48.0 % 42.0-54.0 [facility] Hemoglobin A1c percentageon 06-15-2024 HbA1c (Bld) [Mass fraction] Hemoglobin A1c percentage High 4.5-6.2 [facility] Comment on above: ADA RECOMMENDED LIMI T 4.0 - 6.0ADA THERAPEUTIC TARGET < 7.0ACTION SUGGESTED> 7.0 HbA1c (Bld) [Mass fraction] 6.3 % High 4.5-6.2 [facility] Comment on above: ADA RECOMMENDED LIMI T 4.0 - 6.0ADA THERAPEUTIC TARGET < 7.0ACTION SUGGESTED> 7.0 Hemoglobin [Mass/volume] in Bloodon 06-15-2024 Hemoglobin (Bld) [Mass/Vol] Hemoglobin [Mass/volume] in Blood 14.0-18.0 [facility] Hemoglobin (Bld) [Mass/Vol] 15.1 g/dL 14.0-18.0 [facility] Laboratory - Chemistry and C hemistry - challengeon 06-15-2024 Albumin [Mass/Vol] 3.8 g/dL 3.4-5.0 [facility] ALP [Catalytic activity/Vol] 106 U/L 46-116 [facility] ALT [Catalytic activity/Vol] 18 U/L 16-63 [facility] AST [Catalytic activity/Vol] 19 U/L 15-37 [facility] Bilirubin [Mass/Vol] 0.9 mg/dL 0.2-1.0 [facility] Calcium [Mass/Vol] 9.1 mg/dL 8.5-10.1 [facility] Chloride [Moles/Vol] 103 mmol/L 98-107 [facility] Cholesterol [Mass/Vol] 124 mg/dL <=200 [facility] Cholesterol in HDL [Mass/Vol] 56 mg/dL 40-60 [facility] Comment on above: > or =60 mg/dl - LOW CARDIOVASCULAR RISK<40 mg/dl - HIGH CARDIOVASCULAR RISK CO2 [Moles/Vol] 30.1 mmol/L 21.0-32.0 [facility] Creatinine [Mass/Vol] 0.85 mg/dL 0.70-1.30 [facility] GFR/1.73 sq M.predicted MDRD (S/P/Bld) [Vol rate/Area] mL/min/{1.73_m2} >=60 mL/min/1.73m 2 [facility] Glucose [Mass/Vol] 108 mg/dL High 74-106 [facility] Potassium [Moles/Vol] 3.9 mmol/L 3.5-5.1 [facility] Protein [Mass/Vol] 7.9 g/dL 6.4-8.2 [facility] Sodium [Moles/Vol] 142 mmol/L 136-145 [facility] Triglyceride [Mass/Vol] 50 mg/dL <=150 [facility] Urea nitrogen [Mass/Vol] 15.0 mg/dL 7.0-18.0 [facility] Urea nitrogen/Creatinine [Mass ratio] 17.6 mg/mg [facility] Laboratory - Hematology and Cell countson 06-15-2024 Immature granulocytes/100 WBC (Bld) 0.3 % 0.0-0.5 [facility] Leukocytes [#/volume] correc jossue for nucleated erythrocytes in Blood by Automated counon 06-15-2024 WBC corrected for nucl RBC Auto (Bld) [#/Vol] Leukocytes [#/volume] corrected for nucleated erythrocytes in Blood by Automated coun 4.0-11.0 [facility] WBC corrected for nucl RBC Auto (Bld) [#/Vol] 7.1 10 3/uL 4.0-11.0 [facility] Lymphocytes Auto (Bld) [#/Vo l]on 06-15-2024 Lymphocytes (Bld) [#/Vol] Lymphocytes [#/volume] in Blood by Automated count 1.2-3.8 [facility] Lymphocytes (Bld) [#/Vol] 2.0 10 3/uL 1.2-3.8 [facility] Lymphocytes/100 WBC Auto (Bl d)on 06-15-2024 Lymphocytes/100 WBC (Bld) Lymphocytes/100 leukocytes in Blood by Automated count 20.5-60.0 [facility] Lymphocytes/100 WBC (Bld) 27.8 % 20.5-60.0 [facility] MCH Auto (RBC) [Entitic mass ]on 06-15-2024 MCH (RBC) [Entitic mass] MCH [Entitic mass] by Automated count 25.9-34.0 [facility] MCH (RBC) [Entitic mass] 28.8 pg 25.9-34.0 [facility] MCHC Auto (RBC) [Mass/Vol]on 06-15-2024 MCHC (RBC) [Mass/Vol] MCHC [Mass/volume] by Automated count 29.9-35.2 [facility] MCHC (RBC) [Mass/Vol] 31.5 g/dL 29.9-35.2 [facility] MCV Auto (RBC) [Entitic vol] on 06-15-2024 MCV (RBC) [Entitic vol] MCV [Entitic volume] by Automated count 80.0-94.0 [facility] MCV (RBC) [Entitic vol] 91.4 fL 80.0-94.0 [facility] Microalbumin [Mass/volume] i n Urineon 06-15-2024 Albumin DL <= 20 mg/L (U) [Mass/Vol] Microalbumin [Mass/volume] in Urine High <=30.0 [facility] Albumin DL <= 20 mg/L (U) [Mass/Vol] 60.3 mg/dL High <=30.0 [facility] Monocytes Auto (Bld) [#/Vol] on 06-15-2024 Monocytes (Bld) [#/Vol] Automated blood monocyte count 0.3-0.8 [facility] Monocytes (Bld) [#/Vol] 0.6 10 3/uL 0.3-0.8 [facility] Monocytes/100 WBC Auto (Bld) on 06-15-2024 Monocytes/100 WBC (Bld) Automated monocyte % 1.7-12.0 [facility] Monocytes/100 WBC (Bld) 9.0 % 1.7-12.0 [facility] Neutrophils Auto (Bld) [#/Vo l]on 06-15-2024 Neutrophils (Bld) [#/Vol] Neutrophils [#/volume] in Blood by Automated count 1.4-6.5 [facility] Neutrophils (Bld) [#/Vol] 4.3 10 3/uL 1.4-6.5 [facility] Neutrophils/100 WBC Auto (Bl d)on 06-15-2024 Neutrophils/100 WBC (Bld) Automated neutrophil % 43.0-75.0 [facility] Neutrophils/100 WBC (Bld) 60.6 % 43.0-75.0 [facility] No Panel Informationon 06-15 Eosinophils # (Auto) 0.1 10 3/uL 0.0-0.7 [facility] Immature Granulocyte # (Auto) 0.02 10 3/uL 0.00-0.03 [facility] Urine Random Creatinine 146.61 mg/dL 20.00-300.00 [facility] Platelet mean volume Auto (B ld) [Entitic vol]on 06-15-2024 Platelet mean volume (Bld) [Entitic vol] Platelet mean volume [Entitic volume] in Blood by Automated count 9.5-13.5 [facility] Platelet mean volume (Bld) [Entitic vol] 10.4 fL 9.5-13.5 [facility] Platelets Auto (Bld) [#/Vol] on 06-15-2024 Platelets (Bld) [#/Vol] Platelets [#/volume] in Blood by Automated count 150-450 [facility] Platelets (Bld) [#/Vol] 197 10 3/uL 150-450 [facility] RBC Auto (Bld) [#/Vol]on RBC (Bld) [#/Vol] Erythrocytes [#/volume] in Blood by Automated count 4.70-6.10 [facility] RBC (Bld) [#/Vol] 5.25 10 6/uL 4.70-6.10 [facility] Serum or plasma albumin/glob ulin mass ratioon 06-15-2024 Albumin/Globulin [Mass ratio] Serum or plasma albumin/globulin mass ratio [facility] Albumin/Globulin [Mass ratio] 0.9 {ratio} [facility] Serum or plasma anion gap de terminationon 06-15-2024 Anion gap [Moles/Vol] Serum or plasma an ion gap determination [facility] Anion gap [Moles/Vol] 12.8 mmol/L [facility] Serum or plasma total choles terol/high density lipoprotein (HDL) cholesterol mass bianca 06-15-2024 Cholesterol.total/Cho lesterol in HDL [Mass ratio] Serum or plasma total cholesterol/high density lipoprotein (HDL) cholesterol mass rat [facility] Comment on above: 3.3 - 4.4 LOW RISK4. 4 - 7.1 AVERAGE RISK7.1 - 11.0 MODERATE RISK>11.0 HIGH RISK Cholesterol.total/Cho lesterol in HDL [Mass ratio] 2.2 {ratio} [facility] Comment on above: 3.3 - 4.4 LOW RISK4. 4 - 7.1 AVERAGE RISK7.1 - 11.0 MODERATE RISK>11.0 HIGH RISK Urine microalbumin/creatinin e mass ratioon 06-15-2024 Albumin/Creatinine DL <= 20 mg/L (U) [Mass ratio] Urine microalbumin/creatini ne mass ratio High 0.0-29.9 [facility] Comment on above: NO MICROALBUMINURIA 0-29 MG/GCLINICAL MICROALBUMINURIA 30-300 MG/GMACROALBUMINURIA >300 MG/G Albumin/Creatinine DL <= 20 mg/L (U) [Mass ratio] 411.2 mg/g High 0.0-29.9 [facility] Comment on above: NO MICROALBUMINURIA 0-29 MG/GCLINICAL MICROALBUMINURIA 30-300 MG/GMACROALBUMINURIA >300 MG/G Scooter 05-01-2024 CNPN Telephone (CARDJOSE MIGUEL) RYANHANNAHJORGE Kavita ([id number]) 1945 M Date Time Provider Department 05/01/24 RUBEN DENTON During your visit today, we recorded the following information about you: Radha Gates 05/01/2024 3:33 PM Signed Uploaded LAB results (INR) FAX into scanned documents and [employer] drive. Radha IC 955 Allergies As of Date: 05/01/2024 [...] Atrial fibrillation (HCC) [I48.91] 07/08/2014 Atherosclerosis of [place] coronary artery of na*07/10/2015 Diabetes mellitus type 2, controlled, without c*07/10/2015 Atrial fibrillation, persistent (HCC) [I48.19] 07/22/2015 Paroxysmal atrial fibrillation (HCC) [I48.0] 12/04/2015 Paroxysmal atrial flutter (HCC) [I48.92] 05/30/2018 Obesity, Class III, BMI >= 40 [E66.813] 10/23/2019 Chronic diastolic heart failure (HCC) [I50.32] 06/05/2023 Mixed hyperlipidemia [E78.2] 06/05/2023 Encounter Status:Closed by RADHA GATES on 07/11/24 Normal [facility] X-ray reportOrdered By: Bobby Gonzalez on 04-23-2024 Study report [facility] [address] [place] [address] XRay Report Signed Patient: Jorge Davis MR#: [id number] : 1945 Acct:[id number] Age/Sex: 79 / M ADM Date: 5 Loc: [facility] Room: Type: [facility] Attending Dr: Ruben Diane MD Copies to: [...] Lucas Gonzalez M.D.04/23/2024 9:46 AM Dictation Location: [place] [address] Transcribed By: [facility] 04/23/24 0946 Dictated By: Lucas Gonzalez DO 04/23/24 0932 Signed By: 04/23/24 0946 [facility] XR hand LT min 3V*on 025 XR hand LT min 3V* [facility] [address] [place] [address] XRay Report Signed Patient: Jorge Davis MR#: [id number] 14 : 1945 Acct:[id number] Age/Sex: 79 / M ADM Date: 04/23/24 Loc: [facility] Room: Type: [facility] Attending Dr: Ruben Diane MD Copies to: [...] Lucas Gonzalez M.D.04/23/2024 9:46 AM Dictation Location: [place] [address] Transcribed By: [facility] 04/23/2446 Dictated By: Lucas Gonzalez DO 04/23/2432 Signed By: 04/23/24 0946 Normal [facility] Scooter 04-03-2024 JOSE Telephone (PRESLEY) JORGE DAVIS ([id number]) 1945 M Date Time Provider Department 04/03/24 RUBEN DENTON During your visit today, we recorded the following information about you: Radha Gates 04/03/2024 11:53 AM Signed Uploaded INR results from [facility] FAX into scanned documents and EP shared drive. Radha IC 955 Allergies As of Date: 04/03/2024 [...] Atrial fibrillation (HCC) [I48.91] 07/08/2014 Atherosclerosis of [place] coronary artery of na*07/10/2015 Diabetes mellitus type 2, controlled, without c*07/10/2015 Atrial fibrillation, persistent (HCC) [I48.19] 07/22/2015 Paroxysmal atrial fibrillation (HCC) [I48.0] 12/04/2015 Paroxysmal atrial flutter (HCC) [I48.92] 05/30/2018 Obesity, Class III, BMI >= 40 [E66.01] 10/23/2019 Chronic diastolic heart failure (HCC) [I50.32] 06/05/2023 Mixed hyperlipidemia [E78.2] 06/05/2023 Encounter Status:Closed by RADHA GATES on 04/05/24 [facility] Scooter 02-21-2024 CNPN Telephone (CARDMN) JORGE DAVIS ([id number]) 1945 [employer] [place] Date Time Provider Department 02/21/24 RUBEN DENTON During your visit today, we recorded the following information about you: Radha Gates 02/21/2024 1:49 PM Signed Received LAB results. Uploaded to scanned documents and [employer]. -Radha IC 955 Alisha Gomez RN 02/21/2024 [...] Atrial fibrillation (HCC) [I48.91] 07/08/2014 Atherosclerosis of [place] coronary artery of na*07/10/2015 Diabetes mellitus type 2, controlled, without c*07/10/2015 Atrial fibrillation, persistent (HCC) [I48.19] 07/22/2015 Paroxysmal atrial fibrillation (HCC) [I48.0] 12/04/2015 Paroxysmal atrial flutter (HCC) [I48.92] 05/30/2018 Obesity, Class III, BMI >= 40 [E66.01] 10/23/2019 Chronic diastolic heart failure (HCC) [I50.32] 06/05/2023 Mixed hyperlipidemia [E78.2] 06/05/2023 Encounter Status:Closed by ALISHA GOMEZ on 02/21/24 [facility] CNOVon 02-13-2024 CNOV Office Visit (CARDAV ) JORGE DAVIS ([id number]) 1945 [facility] Date Time Provider Department 02/13/24 1:00 PM ALIX BARRIOS During your visit today, we recorded the following information about you: Pulse Blood pressure Weight 66/minute 134/68 120.2 kg Alix Barrios APRN.CNP 02/13/2024 2:49 PM Signed [facility] Cristal Crespo Department of Cardiovascular Medicine SECTION OF CLINICAL CARDIOLOGY OUTPATIENT VISIT DATE February 13, 2024 OUTPATIENT VISIT TYPE ESTABLISHED PRIMARY CARE PHYSICIAN: Declan Swanson (Peggy) [address] [place] [address] REFERRING PHYSICIAN: No referring provider defined for [...] Continue staitn 5. Coronary artery disease involving [place] coronary artery of [place] heart without angina pectoris - ICD9: 414.01, [...] Acrominoplasty Ri (more content not included)... Normal [facility] Natriuretic peptide.B prohormone N-Terminal [Mass/Vol] 2044 pg/mL High <450 [facility] Comment on above: Order Comment: Speci men Type: BLOOD SPECIMEN Ordering Facility: [facility] Address: [address] [place] [address] Performed By: #### 3 3762-6 #### [facility] CLIA [id number] [place] [address] [place] Natriuretic peptide.B prohor gerson N-Terminal [Mass/volume] in Serum or Plasmaon 02-13-2024 Natriuretic peptide.B prohormone N-Terminal [Mass/Vol] Natriuretic peptide.B prohormone N-Terminal [Mass/volume] in Serum or Plasma High <450 [facility] CNPNon 02-07-2024 CNPN Telephone (CARDMN) JORGE DAVIS ([id number]) 1945 M [facility]* Date Time Provider Department 02/07/24 RUBEN DENTON During your visit today, we recorded the following information about you: Radha Gates 02/07/2024 2:52 PM Signed Received faxed LAB results. Uploaded to scanned documents and [employer]. -Joselyn Cline RN 02/09/2024 7:55 AM Signed [...] Atrial fibrillation (HCC) [I48.91] 07/08/2014 Atherosclerosis of [place] coronary artery of na*07/10/2015 Diabetes mellitus type 2, controlled, without c*07/10/2015 Atrial fibrillation, persistent (HCC) [I48.19] 07/22/2015 Paroxysmal atrial fibrillation (HCC) [I48.0] 12/04/2015 Paroxysmal atrial flutter (HCC) [I48.92] 05/30/2018 Obesity, Class III, BMI >= 40 [E66.01] 10/23/2019 Chronic diastolic heart failure (HCC) [I50.32] 06/05/2023 Mixed hyperlipidemia [E78.2] 06/05/2023 Encounter Status:Closed by JOSELYN MACEDO on 02/09/24 [facility]OR[facility] DAV[facility] ([id number]) 1945 [employer] Date Time Provider Department 01/24/24 RUBEN DENTON During your visit today, we recorded the following information about you: Radha Gates 01/24/2024 2:58 PM Signed Received INR LAB results from [facility]. Uploaded to [employer]/ [employer] and [employer]. -Radha IC 951 Alisha GomezCONSTANTIN 01/24/2024 3:30 PM Signed Allergies As of [...] Atrial fibrillation (HCC) [I48.91] 07/08/2014 Atherosclerosis of [place] coronary artery of na*07/10/2015 Diabetes mellitus type 2, controlled, without c*07/10/2015 Atrial fibrillation, persistent (HCC) [I48.19] 07/22/2015 Paroxysmal atrial fibrillation (HCC) [I48.0] 12/04/2015 Paroxysmal atrial flutter (HCC) [I48.92] 05/30/2018 Obesity, Class III, BMI >= 40 [E66.01] 10/23/2019 Chronic diastolic heart failure (HCC) [I50.32] 06/05/2023 Mixed hyperlipidemia [E78.2] 06/05/2023 Encounter Status:Closed by ALISHA GOMEZ on 01/24/24 [facility] Scooter 12-19-2023 ATTAN Telephone (CAEPAV) JORGE DAVIS ([id number]) 1945 M [place] [employer]* Date Time Provider Department 12/19/23 VENKAT EVANS During your visit today, we recorded the following information about you: Claire Callejas RN 12/19/2023 2:17 PM Signed Spoke with patients . Relayed Dr. Pineda message below. Patient is NOT taking Jardiance due to cost. Will adjust Lasix and recheck BNP. Appt scheduled end of Feb with Shama. Patient is requesting change to Carmine instead of Wallace. Will contact us if no improvement. Venkat Evans V, MD P Avw Card Nurse; P Avw Card Director Vaccine Tell pt pro bnp is high suggesting [...] Spoke to , rescheduled with Alix in [place]. now asking about BNP lab for next [...] Atrial fibrillation (HCC) [I48.91] 07/08/2014 Atherosclerosis of [place] coronary artery of na*07/10/2015 Diabetes mellitus type 2, controlled, without c*07/10/2015 Atrial fibrillation, persistent (HCC) [I48.19] 07/22/2015 Paroxysmal atrial fibrillation (HCC) [I48.0] 12/04/2015 Paroxysmal atrial flutter (HCC) [I48.92] 05/30/2018 Obesity, Class III, BMI >= 40 [E66.01] 10/23/2019 Chronic diastolic heart failure (HCC) [I50.32] 06/05/2023 Mixed hyperlipidemia [E78.2] 06/05/2023 Encounter Status:Closed by CLAIRE CALLEJAS on 12/19/23 [facility] Scooter 12-12-2023 TATAN Telephone (CARDMN) JORGE DAVIS ([id number]) 1945 M [place] [employer] Date Time Provider Department 12/12/23 RUBEN DENTON During your visit today, we recorded the following information about you: Bryan Dwyer 12/12/2023 2:58 PM Signed Documentation scanned into EP outside database Scanned INR report into [facility] Allergies As of Date: 12/12/2023 (No Known Allergies) Date Reviewed: 12/08/2023 Reviewed by: Venkat Evans V, MD - Fully Assessed Reason for Visit: Received Outside Medical Records [[id number]] Prescriptions as of 12/12/2023 - empagliflozin (JARDIANCE) [...] Atrial fibrillation (HCC) [I48.91] 07/08/2014 Atherosclerosis of [place] coronary artery of na*07/10/2015 Diabetes mellitus type 2, controlled, without c*07/10/2015 Atrial fibrillation, persistent (HCC) [I48.19] 07/22/2015 Paroxysmal atrial fibrillation (HCC) [I48.0] 12/04/2015 Paroxysmal atrial flutter (HCC) [I48.92] 05/30/2018 Obesity, Class III, BMI >= 40 [E66.01] 10/23/2019 Chronic diastolic heart failure (HCC) [I50.32] 06/05/2023 Mixed hyperlipidemia [E78.2] 06/05/2023 Encounter Status:Closed by MURPHYBRYAN on 12/12/23 Normal [facility] Basic metabolic 2000 panelon 12-08-2023 Anion gap [Moles/Vol] 13 mmol/L 8 - 15 mmol/L [facility] Calcium [Mass/Vol] 9.4 mg/dL 8.5 - 10. 2 mg/dL [facility] Chloride [Moles/Vol] 103 mmol/L 98 - 10 7 mmol/L [facility] CO2 [Moles/Vol] 26 mmol/L 22 - 30 mmol/L [facility] Creatinine [Mass/Vol] 0.99 mg/dL 0.73 - 1.22 mg/dL [facility] GFR/1.73 sq M.predicted among non-blacks MDRD (S/P/Bld) [Vol rate/Area] 78 mL/min/{1.73_m2} - PINF [facility] Comment on above: Estimated Glomerular Filtration [...] [Mass/Vol] 97 mg/dL 74 - 99 mg/dL [facility] Comment on above: The [place] Diabete s Association (ADA) provides guidance for [...] Standards of Medical Care in Diabetes 2016, [place] Diabetes Association. Diabetes Care. 2016.39(Suppl 1). Interpretation and review of laboratory results Normal [facility] Potassium [Moles/Vol] 4.3 mmol/L 3.7 - 5.1 mmol/L [facility] Sodium [Moles/Vol] 142 mmol/L 136 - 144 mmol/L [facility] Urea nitrogen [Mass/Vol] 18 mg/dL 9 - 24 mg/dL [facility] Anion gap [Moles/Vol] 13 mmol/L Normal 8-15 [facility] Comment on above: Order Comment: Speci men Type: BLOOD SPECIMEN Ordering Facility: [facility] Address: [address] [place] [address] Performed By: #### 3 3762-6, 58274-1 #### [facility] CLIA [id number] [address] [place] [address] [place] Calcium [Mass/Vol] 9.4 mg/dL Normal 8.5-10.2 [facility] Comment on above: Order Comment: Speci men Type: BLOOD SPECIMEN Ordering Facility: [facility] Address: [address] [place] [address] Performed By: #### 3 3762-6, 95743-3 #### [facility] IA [id number] [address] [place] [address] [place] Chloride [Moles/Vol] 103 mmol/L Normal 98-107 [facility] Comment on above: Order Comment: Speci men Type: BLOOD SPECIMEN Ordering Facility: [facility] Address: [address] [place] [address] Performed By: #### 3 3762-6, 62496-8 #### [facility] CLIA [id number] [address] [place] [address] [place] CO2 [Moles/Vol] 26 mmol/L Normal 22-30 [facility] Comment on above: Order Comment: Speci men Type: BLOOD SPECIMEN Ordering Facility: [facility] Address: [address] [place] [address] Performed By: #### 3 3762-6, 21288-1 #### [facility] CLIA [id number] [address] [place] [address] [place] Creatinine [Mass/Vol] 0.99 mg/dL Normal 0.73-1.22 [facility] Comment on above: Order Comment: Speci men Type: BLOOD SPECIMEN Ordering Facility: [facility] Address: [address] [place], [place] [address] Performed By: #### 3 3762-6, 68156-1 #### [facility] CLIA [id number] [address] [place] [address] [place] Creatinine and Glomerular filtration rate.predicted panel (S/P/Bld) 78 mL/min/1.73m??? Normal >=60 [facility] Comment on above: Order Comment: Marlin markham Type: BLOOD SPECIMEN Ordering Facility: [facility] Address: [address] [place] [address] Result Comment: Colleen mated Glomerular Filtration Rate [...] actual GFR. Performed By: #### 3 3762-6, 35594-7 #### [facility] CLIA [id number] [address] [place] [address] [place] Glucose [Mass/Vol] 97 mg/dL Normal 74-99 [facility] Comment on above: Order Comment: Marlin markham Type: BLOOD SPECIMEN Ordering Facility: [facility] Address: [address] [place] [address] Result Comment: The [place] Diabetes Association (ADA) provides guidance for cutoff [...] Standards of Medical Care in Diabetes 2016, [place] Diabetes Association. Diabetes Care. 2016.39(Suppl 1). Performed By: #### 3 3762-6, 19283-8 #### [facility] CLIA [id number] [address] [place] [address] [place] Potassium [Moles/Vol] 4.3 mmol/L Normal 3.7-5.1 [facility] Comment on above: Order Comment: Speci men Type: BLOOD SPECIMEN Ordering Facility: [facility] Address: [address] [place] [address] Performed By: #### 3 3762-6, 14255-8 #### [facility] CLIA [id number] [address] [place] [address] [place] Sodium [Moles/Vol] 142 mmol/L Normal 136-144 [facility] Comment on above: Order Comment: Speci men Type: BLOOD SPECIMEN Ordering Facility: [facility] Address: [address] [place] [address] Performed By: #### 3 3762-6, 32497-3 #### [facility] IA [id number] [address] [place] [address] [place] Urea nitrogen [Mass/Vol] 18 mg/dL Normal 9-24 [facility] Comment on above: Order Comment: Speci men Type: BLOOD SPECIMEN Ordering Facility: [facility] Address: [address] [place] [address] Performed By: #### 3 3762-6, 70353-0 #### [facility] IA [id number] [address] [place] [address] [place] CNOVon 12-08-2023 CNOV Office Visit (CARDAV ) JORGE DAVIS ([id number]) 1945 [employer] [place] Date Time Provider Department 12/08/23 10:40 AM VENKAT EVANS During your visit today, we recorded the following information about you: Pulse Blood pressure Weight 88/minute 142/80 118.4 kg Venkat Evans V, MD 12/08/2023 11:39 AM Signed Referring Physician: Venkat Evans [id number] [place] [address] Primary Care Physician: DO Jorge Unger Kavita [...] Continue staitn 5. Coronary artery disease involving [place] coronary artery of [place] heart without angina pectoris - ICD9: 414.01, [...] Evans MD Referring Provider: VENKAT EVANS V [[id number]] Allergies As of Date: 12/08/2023 (No Known Allergies) Date Reviewed: 12/08/2023 Reviewed by: Venkat Evans V, MD - Fully Assessed Reason for Visit: Follow Up [171] Primary Visit Diagnosis:Chronic diastolic heart failure (HCC) [I50.32] Other Visit Diagnoses:Atrial fibrillation, persistent (HCC) [I48.19] Obesity, Class III, 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) [E66.01] Mixed hyperlipidemia [E78.2] Coronary artery disease involving [place] coronary (more content not included)... Normal [facility] ECHOon 12-08-2023 Echocardiography Echocardiography Report: [facility] Date of service: 12/08/2023 9:46:42 AM Ordering physician: VENKAT EVANS V Indication: Evaluation of known heart failure to guide therapy Technologist: Jose Luis Porter RUST Interpreting physician: Ruddy Chau MD PATIENT: Name: [...] * * * Final * * * [facility] : [id number] Normal [facility] Laboratory - Chemistry and C hemistry - challengeon 12-08-2023 Calcium [Mass/Vol] 9.4 mg/dL 8.5-10.2 [facility] Chloride [Moles/Vol] 103 mmol/L 98-107 [facility] CO2 [Moles/Vol] 26 mmol/L 22-30 [facility] Creatinine [Mass/Vol] 0.99 mg/dL 0.73-1.22 [facility] Glucose [Mass/Vol] 97 mg/dL 74-99 [facility] Comment on above: The [place] Diab[place] s Association (ADA) provides guidance for [...] Standards of Medical Care in Diabetes 2016, [place] Diabetes [employer]. Diabetes Care. 2016.39(Suppl 1). Potassium [Moles/Vol] 4.3 mmol/L 3.7-5.1 [facility] Sodium [Moles/Vol] 142 mmol/L 136-144 [facility] Urea nitrogen [Mass/Vol] 18 mg/dL 9-24 [facility] NT PRO BNPon 12-08-2023 Natriuretic peptide.B prohormone N-Terminal [Mass/Vol] 2139 pg/mL High NINF - 450 pg/mL [facility] NT-proBNP SerPl-mCncon 12-07 Natriuretic peptide.B prohormone N-Terminal [Mass/Vol] 2139 pg/mL High <450 [facility] Comment on above: Order Comment: Speci men Type: BLOOD SPECIMEN Ordering Facility: [facility] Address: [address] [place] [address] Performed By: #### 3 [id number], [id number] #### [facility] CLIA [id number] [place] [address] [place] Natriuretic peptide.B prohor gerson N-Terminal [Mass/Vol]on 12-08-2023 Interpretation and review of laboratory results Abnormal [facility] Natriuretic peptide.B prohor gerson N-Terminal [Mass/volume] in Serum or Plasmaon 12-08-2023 Natriuretic peptide.B prohormone N-Terminal [Mass/Vol] 2139 pg/mL High <450 [facility] No Panel Informationon 12-07 Estimated GFR (CKD-EPI) 78 mL/min/1.73m??? >=60 [facility] Comment on above: Estimated Glomerular Filtration [...] 12-08-2023 Anion gap [Moles/Vol] 13 mmol/L 8-15 [facility] Basophils Auto (Bld) [#/Vol] on 12-07-2023 Basophils (Bld) [#/Vol] 0.0 10 3/uL 0.0-0.1 [facility] Basophils/100 WBC Auto (Bld) on 12-07-2023 Basophils/100 WBC (Bld) 0.2 % 0.2-2.0 [facility] Eosinophils/100 WBC Auto (Bl d)on 12-07-2023 Eosinophils/100 WBC (Bld) 0.0 % Low 0.9-7.0 [facility] Erythrocyte distribution wid th Auto (RBC) [Ratio]on 12-07-2023 Erythrocyte distribution width (RBC) [Ratio] 14.4 % 11.0-15.0 [facility] Estimated glomerular filtrat ion rate (GFR) non- Americanon 12-07-2023 GFR/1.73 sq M.predicted among non-blacks MDRD (S/P/Bld) [Vol rate/Area] mL/min/{1.73_m2} >=60 [facility] Globulin Calc (S) [Mass/Vol] on 12-07-2023 Globulin (S) [Mass/Vol] 3.3 g/dL [facility] Hematocrit Auto (Bld) [Volum e fraction]on 12-07-2023 Hematocrit (Bld) [Volume fraction] 41.7 % Low 42.0-54.0 [facility] Hemoglobin [Mass/volume] in Bloodon 12-07-2023 Hemoglobin (Bld) [Mass/Vol] 13.5 g/dL Low 14.0-18.0 [facility] INR in Platelet poor plasma by Coagulation assayon 12-07-2023 INR Coag (PPP) [Relative time] 2.55 {INR} [facility] Comment on above: DESIRED INR:2.0-3.0 CONDITIONS NOT LISTED BELOW2.5-3.5 FOR PROSTHETIC HEART VALVE REPLACEMENT2.5-3.5 RECURRENT THROMBOSIS Laboratory - Chemistry and C hemistry - challengeon 12-07-2023 Albumin [Mass/Vol] 2.8 g/dL Low 3.4-5.0 [facility] ALP [Catalytic activity/Vol] 74 U/L 46-116 [facility] ALT [Catalytic activity/Vol] 17 U/L 16-63 [facility] AST [Catalytic activity/Vol] 15 U/L 15-37 [facility] Bilirubin [Mass/Vol] 1.1 mg/dL High 0.2-1.0 [facility] Calcium [Mass/Vol] 8.6 mg/dL 8.5-10.1 [facility] Chloride [Moles/Vol] 104 mmol/L 98-107 [facility] CO2 [Moles/Vol] 22.2 mmol/L 21.0-32.0 [facility] Creatinine [Mass/Vol] 0.72 mg/dL 0.70-1.30 [facility] GFR/1.73 sq M.predicted MDRD (S/P/Bld) [Vol rate/Area] mL/min/{1.73_m2} >=60 [facility] Glucose [Mass/Vol] 132 mg/dL High 74-106 [facility] Potassium [Moles/Vol] 4.1 mmol/L 3.5-5.1 [facility] Protein [Mass/Vol] 6.1 g/dL Low 6.4-8.2 [facility] Sodium [Moles/Vol] 136 mmol/L 136-145 [facility] Urea nitrogen [Mass/Vol] 13.0 mg/dL 7.0-18.0 [facility] Urea nitrogen/Creatinine [Mass ratio] 18.1 mg/mg [facility] Laboratory - Hematology and Cell countson 12-07-2023 Immature granulocytes/100 WBC (Bld) 0.4 % 0.0-0.5 [facility] Leukocytes [#/volume] correc jossue for nucleated erythrocytes in Blood by Automated counon 12-07-2023 WBC corrected for nucl RBC Auto (Bld) [#/Vol] 9.5 10 3/uL 4.0-11.0 [facility] Lymphocytes Auto (Bld) [#/Vo l]on 12-07-2023 Lymphocytes (Bld) [#/Vol] 1.1 10 3/uL Low 1.2-3.8 [facility] Lymphocytes/100 WBC Auto (Bl d)on 12-07-2023 Lymphocytes/100 WBC (Bld) 11.5 % Low 20.5-60.0 [facility] MCH Auto (RBC) [Entitic mass ]on 12-07-2023 MCH (RBC) [Entitic mass] 29.5 pg 25.9-34.0 [facility] MCHC Auto (RBC) [Mass/Vol]on 12-07-2023 MCHC (RBC) [Mass/Vol] 32.4 g/dL 29.9-35.2 [facility] MCV Auto (RBC) [Entitic vol] on 12-07-2023 MCV (RBC) [Entitic vol] 91.0 fL 80.0-94.0 [facility] Monocytes Auto (Bld) [#/Vol] on 12-07-2023 Monocytes (Bld) [#/Vol] 0.5 10 3/uL 0.3-0.8 [facility] Monocytes/100 WBC Auto (Bld) on 12-07-2023 Monocytes/100 WBC (Bld) 4.8 % 1.7-12.0 [facility] Neutrophils Auto (Bld) [#/Vo l]on 12-07-2023 Neutrophils (Bld) [#/Vol] 7.9 10 3/uL High 1.4-6.5 [facility] Neutrophils/100 WBC Auto (Bl d)on 12-07-2023 Neutrophils/100 WBC (Bld) 83.1 % High 43.0-75.0 [facility] No Panel Informationon 12-06 Eosinophils # (Auto) 0.0 10 3/uL 0.0-0.7 [facility] Immature Granulocyte # (Auto) 0.04 10 3/uL High 0.00-0.03 [facility] Platelet mean volume Auto (B ld) [Entitic vol]on 12-07-2023 Platelet mean volume (Bld) [Entitic vol] 10.3 fL 9.5-13.5 [facility] Platelets Auto (Bld) [#/Vol] on 12-07-2023 Platelets (Bld) [#/Vol] 209 10 3/uL 150-450 [facility] Prothrombin time (PT)on 11-12 PT Coag (PPP) [Time] 24.6 s High 9.0-11.6 [facility] RBC Auto (Bld) [#/Vol]on RBC (Bld) [#/Vol] 4.58 10 6/uL Low 4.70-6.10 [facility] Serum or plasma albumin/glob ulin mass ratioon 12-07-2023 Albumin/Globulin [Mass ratio] 0.8 {ratio} [facility] Serum or plasma anion gap de terminationon 12-07-2023 Anion gap [Moles/Vol] 13.9 [facility] Basophils Auto (Bld) [#/Vol] on 12-06-2023 Basophils (Bld) [#/Vol] 0.1 10 3/uL 0.0-0.1 [facility] Basophils/100 WBC Auto (Bld) on 12-06-2023 Basophils/100 WBC (Bld) 0.7 % 0.2-2.0 [facility] Eosinophils/100 WBC Auto (Bl d)on 12-06-2023 Eosinophils/100 WBC (Bld) 1.7 % 0.9-7.0 [facility] Erythrocyte distribution wid th Auto (RBC) [Ratio]on 12-06-2023 Erythrocyte distribution width (RBC) [Ratio] 14.6 % 11.0-15.0 [facility] Estimated glomerular filtrat ion rate (GFR) non- Americanon 12-06-2023 GFR/1.73 sq M.predicted among non-blacks MDRD (S/P/Bld) [Vol rate/Area] mL/min/{1.73_m2} >=60 [facility] Globulin Calc (S) [Mass/Vol] on 12-06-2023 Globulin (S) [Mass/Vol] 3.3 g/dL [facility] Hematocrit Auto (Bld) [Volum e fraction]on 12-06-2023 Hematocrit (Bld) [Volume fraction] 42.1 % 42.0-54.0 [facility] Hemoglobin [Mass/volume] in Bloodon 12-06-2023 Hemoglobin (Bld) [Mass/Vol] 13.6 g/dL Low 14.0-18.0 [facility] INR in Platelet poor plasma by Coagulation assayon 12-06-2023 INR Coag (PPP) [Relative time] 2.78 {INR} [facility] Comment on above: DESIRED INR:2.0-3.0 CONDITIONS NOT LISTED BELOW2.5-3.5 FOR PROSTHETIC HEART VALVE REPLACEMENT2.5-3.5 RECURRENT THROMBOSIS Laboratory - Chemistry and C hemistry - challengeon 12-06-2023 Albumin [Mass/Vol] 2.9 g/dL Low 3.4-5.0 [facility] ALP [Catalytic activity/Vol] 78 U/L 46-116 [facility] ALT [Catalytic activity/Vol] 20 U/L 16-63 [facility] AST [Catalytic activity/Vol] 18 U/L 15-37 [facility] Bilirubin [Mass/Vol] 1.1 mg/dL High 0.2-1.0 [facility] Calcium [Mass/Vol] 8.7 mg/dL 8.5-10.1 [facility] Chloride [Moles/Vol] 104 mmol/L 98-107 [facility] CO2 [Moles/Vol] 28.4 mmol/L 21.0-32.0 [facility] Creatinine [Mass/Vol] 0.75 mg/dL 0.70-1.30 [facility] GFR/1.73 sq M.predicted MDRD (S/P/Bld) [Vol rate/Area] mL/min/{1.73_m2} >=60 [facility] Glucose [Mass/Vol] 106 mg/dL 74-106 [facility] Potassium [Moles/Vol] 4.0 mmol/L 3.5-5.1 [facility] Protein [Mass/Vol] 6.2 g/dL Low 6.4-8.2 [facility] Sodium [Moles/Vol] 137 mmol/L 136-145 [facility] Urea nitrogen [Mass/Vol] 15.0 mg/dL 7.0-18.0 [facility] Urea nitrogen/Creatinine [Mass ratio] 20.0 mg/mg [facility] Laboratory - Hematology and Cell countson 12-06-2023 Immature granulocytes/100 WBC (Bld) 0.3 % 0.0-0.5 [facility] Leukocytes [#/volume] correc jossue for nucleated erythrocytes in Blood by Automated counon 12-06-2023 WBC corrected for nucl RBC Auto (Bld) [#/Vol] 7.5 10 3/uL 4.0-11.0 [facility] Lymphocytes Auto (Bld) [#/Vo l]on 12-06-2023 Lymphocytes (Bld) [#/Vol] 1.8 10 3/uL 1.2-3.8 [facility] Lymphocytes/100 WBC Auto (Bl d)on 12-06-2023 Lymphocytes/100 WBC (Bld) 23.5 % 20.5-60.0 [facility] MCH Auto (RBC) [Entitic mass ]on 12-06-2023 MCH (RBC) [Entitic mass] 29.8 pg 25.9-34.0 [facility] MCHC Auto (RBC) [Mass/Vol]on 12-06-2023 MCHC (RBC) [Mass/Vol] 32.3 g/dL 29.9-35.2 [facility] MCV Auto (RBC) [Entitic vol] on 12-06-2023 MCV (RBC) [Entitic vol] 92.3 fL 80.0-94.0 [facility] Monocytes Auto (Bld) [#/Vol] on 12-06-2023 Monocytes (Bld) [#/Vol] 0.6 10 3/uL 0.3-0.8 [facility] Monocytes/100 WBC Auto (Bld) on 12-06-2023 Monocytes/100 WBC (Bld) 8.6 % 1.7-12.0 [facility] Neutrophils Auto (Bld) [#/Vo l]on 12-06-2023 Neutrophils (Bld) [#/Vol] 4.9 10 3/uL 1.4-6.5 [facility] Neutrophils/100 WBC Auto (Bl d)on 12-06-2023 Neutrophils/100 WBC (Bld) 65.2 % 43.0-75.0 [facility] No Panel InformationOrdered By: Edgardo Feng on 12-06-2023 Acid Fast Smear [facility] Aerobic Culture [facility] AFB Specimen Processing [facility] Anaerobic Culture [facility] No Panel Informationon 12-05 Fungal Smear Result \R\ Fungus Stain [facility] Gram Stain Result 1 \R\ Gram Stain Result [facility] Miscellaneous Test Comment See comment [facility] Comment on above: Specimen Source: LEG RT - Leg Right - Leg Rt - 603.600 Eosinophils # (Auto) 0.1 10 3/uL 0.0-0.7 [facility] Immature Granulocyte # (Auto) 0.02 10 3/uL 0.00-0.03 [facility] Platelet mean volume Auto (B ld) [Entitic vol]on 12-06-2023 Platelet mean volume (Bld) [Entitic vol] 10.0 fL 9.5-13.5 [facility] Platelets Auto (Bld) [#/Vol] on 12-06-2023 Platelets (Bld) [#/Vol] 205 10 3/uL 150-450 [facility] Prothrombin time (PT)on 11-12 PT Coag (PPP) [Time] 26.6 s High 9.0-11.6 [facility] RBC Auto (Bld) [#/Vol]on RBC (Bld) [#/Vol] 4.56 10 6/uL Low 4.70-6.10 [facility] Serum or plasma albumin/glob ulin mass ratioon 12-06-2023 Albumin/Globulin [Mass ratio] 0.9 {ratio} [facility] Serum or plasma anion gap de terminationon 12-06-2023 Anion gap [Moles/Vol] 8.6 mmol/L [facility] Basophils Auto (Bld) [#/Vol] on 12-05-2023 Basophils (Bld) [#/Vol] 0.0 10 3/uL 0.0-0.1 [facility] Basophils/100 WBC Auto (Bld) on 12-05-2023 Basophils/100 WBC (Bld) 0.6 % 0.2-2.0 [facility] Eosinophils/100 WBC Auto (Bl d)on 12-05-2023 Eosinophils/100 WBC (Bld) 1.7 % 0.9-7.0 [facility] Erythrocyte distribution wid th Auto (RBC) [Ratio]on 12-05-2023 Erythrocyte distribution width (RBC) [Ratio] 14.6 % 11.0-15.0 [facility] Estimated glomerular filtrat ion rate (GFR) non- Americanon 12-05-2023 GFR/1.73 sq M.predicted among non-blacks MDRD (S/P/Bld) [Vol rate/Area] mL/min/{1.73_m2} >=60 [facility] Globulin Calc (S) [Mass/Vol] on 12-05-2023 Globulin (S) [Mass/Vol] 3.6 g/dL [facility] Glucose mean value [Mass/vol ume] in Blood Estimated from glycated hemoglobinon 12-05-2023 Average glucose Estimated from glycated hemoglobin (Bld) [Mass/Vol] 126 mg/dL [facility] Hematocrit Auto (d) [Volum e fraction]on 12-05-2023 Hematocrit (d) [Volume fraction] 42.7 % 42.0-54.0 [facility] Hemoglobin [Mass/volume] in Bloodon 12-05-2023 Hemoglobin (Bld) [Mass/Vol] 13.9 g/dL Low 14.0-18.0 [facility] INR in Platelet poor plasma by Coagulation assayon 12-05-2023 INR Coag (PPP) [Relative time] 3.49 {INR} [facility] Comment on above: DESIRED INR:2.0-3.0 CONDITIONS NOT LISTED BELOW2.5-3.5 FOR PROSTHETIC HEART VALVE REPLACEMENT2.5-3.5 RECURRENT THROMBOSIS Laboratory - Chemistry and C hemistry - challengeon 12-05-2023 Albumin [Mass/Vol] 3.2 g/dL Low 3.4-5.0 [facility] ALP [Catalytic activity/Vol] 95 U/L 46-116 [facility] ALT [Catalytic activity/Vol] 28 U/L 16-63 [facility] AST [Catalytic activity/Vol] 21 U/L 15-37 [facility] Bilirubin [Mass/Vol] 0.7 mg/dL 0.2-1.0 [facility] Calcium [Mass/Vol] 8.8 mg/dL 8.5-10.1 [facility] Chloride [Moles/Vol] 100 mmol/L 98-107 [facility] CO2 [Moles/Vol] 28.2 mmol/L 21.0-32.0 [facility] Creatinine [Mass/Vol] 0.78 mg/dL 0.70-1.30 [facility] GFR/1.73 sq M.predicted MDRD (S/P/Bld) [Vol rate/Area] mL/min/{1.73_m2} >=60 [facility] Glucose [Mass/Vol] 124 mg/dL High 74-106 [facility] Potassium [Moles/Vol] 4.1 mmol/L 3.5-5.1 [facility] Protein [Mass/Vol] 6.8 g/dL 6.4-8.2 [facility] Sodium [Moles/Vol] 135 mmol/L Low 136-145 [facility] Urea nitrogen [Mass/Vol] 14.0 mg/dL 7.0-18.0 [facility] Urea nitrogen/Creatinine [Mass ratio] 17.9 mg/mg [facility] Laboratory - Hematology and Cell countson 12-05-2023 ESR (Bld) [Velocity] 46 mm/h High <=20 [facility] HbA1c (Bld) [Mass fraction] 6.0 % 4.5-6.2 [facility] Comment on above: ADA RECOMMENDED LIMI T 4.0 - 6.0ADA THERAPEUTIC TARGET < 7.0ACTION SUGGESTED> 7.0 Immature granulocytes/100 WBC (Bld) 0.2 % 0.0-0.5 [facility] Leukocytes [#/volume] correc jossue for nucleated erythrocytes in Blood by Automated counon 12-05-2023 WBC corrected for nucl RBC Auto (Bld) [#/Vol] 6.6 10 3/uL 4.0-11.0 [facility] Lymphocytes Auto (Bld) [#/Vo l]on 12-05-2023 Lymphocytes (Bld) [#/Vol] 1.4 10 3/uL 1.2-3.8 [facility] Lymphocytes/100 WBC Auto (Bl d)on 12-05-2023 Lymphocytes/100 WBC (Bld) 21.3 % 20.5-60.0 [facility] MCH Auto (RBC) [Entitic mass ]on 12-05-2023 MCH (RBC) [Entitic mass] 29.8 pg 25.9-34.0 [facility] MCHC Auto (RBC) [Mass/Vol]on 12-05-2023 MCHC (RBC) [Mass/Vol] 32.6 g/dL 29.9-35.2 [facility] MCV Auto (RBC) [Entitic vol] on 12-05-2023 MCV (RBC) [Entitic vol] 91.4 fL 80.0-94.0 [facility] Monocytes Auto (Bld) [#/Vol] on 12-05-2023 Monocytes (Bld) [#/Vol] 0.5 10 3/uL 0.3-0.8 [facility] Monocytes/100 WBC Auto (Bld) on 12-05-2023 Monocytes/100 WBC (Bld) 8.1 % 1.7-12.0 [facility] Neutrophils Auto (Bld) [#/Vo l]on 12-05-2023 Neutrophils (Bld) [#/Vol] 4.5 10 3/uL 1.4-6.5 [facility] Neutrophils/100 WBC Auto (Bl d)on 12-05-2023 Neutrophils/100 WBC (Bld) 68.1 % 43.0-75.0 [facility] No Panel InformationOrdered By: Alix Mims on 12-05-2023 Blood Culture 2 [facility] Blood Culture 1 [facility] No Panel Informationon 12-04 C-Reactive Protein, Quantitative <0.50 mg/dL <=0.50 [facility] Eosinophils # (Auto) 0.1 10 3/uL 0.0-0.7 [facility] Immature Granulocyte # (Auto) 0.01 10 3/uL 0.00-0.03 [facility] Platelet mean volume Auto (B ld) [Entitic vol]on 12-05-2023 Platelet mean volume (Bld) [Entitic vol] 9.9 fL 9.5-13.5 [facility] Platelets Auto (Bld) [#/Vol] on 12-05-2023 Platelets (Bld) [#/Vol] 216 10 3/uL 150-450 [facility] Prothrombin time (PT)on 11-12 PT Coag (PPP) [Time] 32.7 s High 9.0-11.6 [facility] RBC Auto (Bld) [#/Vol]on RBC (Bld) [#/Vol] 4.67 10 6/uL Low 4.70-6.10 [facility] Serum or plasma albumin/glob ulin mass ratioon 12-05-2023 Albumin/Globulin [Mass ratio] 0.9 {ratio} [facility] Serum or plasma anion gap de terminationon 12-05-2023 Anion gap [Moles/Vol] 10.9 mmol/L [facility] CNPNon 11-15-2023 CNPN Telephone (CARDMN) JORGE DAVIS ([id number]) 1945 [place] [employer] Date Time Provider Department 11/15/23 RUBEN DENTON During your visit today, we recorded the following information about you: Bryan Dwyer 11/15/2023 2:37 PM Signed Documentation scanned into EP outside database Scanned INR results into epic Allergies As of Date: 11/15/2023 (No Known Allergies) Date Reviewed: 07/04/2023 Reviewed by: Delilah Novoa LPN - Fully Assessed Reason for Visit: Received Outside Medical Records [[id number]] Prescriptions as of 11/15/2023 - warfarin (COUMADIN) [...] Atrial fibrillation (HCC) [I48.91] 07/08/2014 Atherosclerosis of [place] coronary artery of na*07/10/2015 Diabetes mellitus type 2, controlled, without c*07/10/2015 Atrial fibrillation, persistent (HCC) [I48.19] 07/22/2015 Paroxysmal atrial fibrillation (HCC) [I48.0] 12/04/2015 Paroxysmal atrial flutter (HCC) [I48.92] 05/30/2018 Obesity, Class III, BMI >= 40 [E66.01] 10/23/2019 Chronic diastolic heart failure (HCC) [I50.32] 06/05/2023 Mixed hyperlipidemia [E78.2] 06/05/2023 Encounter Status:Closed by BRYAN DWYER on 11/15/23 [facility] 09-19-2023 CNPN Telephone (CARDMN) JORGE DAVIS ([id number]) 1945 [employer] Date Time Provider Department 09/19/23 RUBEN DENTON During your visit today, we recorded the following information about you: Bryan Dwyer 09/19/2023 3:52 PM Signed Documentation scanned into EP outside database Scanned INR results into Deliv Allergies As of Date: 09/19/2023 (No Known [...] Atrial fibrillation (HCC) [I48.91] 07/08/2014 Atherosclerosis of [place] coronary artery of na*07/10/2015 Diabetes mellitus type 2, controlled, without c*07/10/2015 Atrial fibrillation, persistent (HCC) [I48.19] 07/22/2015 Paroxysmal atrial fibrillation (HCC) [I48.0] 12/04/2015 Paroxysmal atrial flutter (HCC) [I48.92] 05/30/2018 Obesity, Class III, BMI >= 40 [E66.01] 10/23/2019 Chronic diastolic heart failure (HCC) [I50.32] 06/05/2023 Mixed hyperlipidemia [E78.2] 06/05/2023 Encounter Status:Closed by BRYAN DWYER on 09/19/23 [facility] 08-22-2023 CNPN Telephone (CARDMN) JORGE DAVIS ([id number]) 1945 [employer] Date Time Provider Department 08/22/23 RUBEN [...] Outside Medical Records [[id number]] Prescriptions as of 08/22/2023 - warfarin (COUMADIN) [...] Atrial fibrillation (HCC) [I48.91] 07/08/2014 Atherosclerosis of [place] coronary artery of na*07/10/2015 Diabetes mellitus type 2, controlled, without c*07/10/2015 Atrial fibrillation, persistent (HCC) [I48.19] 07/22/2015 Paroxysmal atrial fibrillation (HCC) [I48.0] 12/04/2015 Paroxysmal atrial flutter (HCC) [I48.92] 05/30/2018 Obesity, Class III, BMI >= 40 [E66.01] 10/23/2019 Chronic diastolic heart failure (HCC) [I50.32] 06/05/2023 Mixed hyperlipidemia [E78.2] 06/05/2023 Encounter Status:Closed by BRYAN DWYER [facility]22[facility] ([place]) JORGE DAVIS ([id number]) 1945 [employer] Date Time Provider Department 07/25/23 RUBEN DENTON During your visit today, we recorded the following information about you: Bryan Dwyer 07/25/2023 10:22 AM Signed Documentation scanned into EP outside database Scanned INR results into [facility] Allergies As of Date: 07/25/2023 (No Known Allergies) Date Reviewed: 07/04/2023 Reviewed by: Delilah Novoa LPN - Fully Assessed Reason for Visit: Received Outside Medical Records [[id number]] Cmt: INR Prescriptions as of 07/25/2023 - [...] Atrial fibrillation (HCC) [I48.91] 07/08/2014 Atherosclerosis of [place] coronary artery of na*07/10/2015 Diabetes mellitus type 2, controlled, without c*07/10/2015 Atrial fibrillation, persistent (HCC) [I48.19] 07/22/2015 Paroxysmal atrial fibrillation (HCC) [I48.0] 12/04/2015 Paroxysmal atrial flutter (HCC) [I48.92] 05/30/2018 Obesity, Class III, BMI >= 40 [E66.01] 10/23/2019 Chronic diastolic heart failure (HCC) [I50.32] 06/05/2023 Mixed hyperlipidemia [E78.2] 06/05/2023 Encounter Status:Closed by BRYAN DWYER on 07/25/23 Normal [facility] XR knee BI 2Von 10-12-2022 XR knee BI 2V [facility] [employer] Other XR knee BI 2V [facility] [employer] Other XR knee BI 2V [address] [place] [address] [employer] Other XR knee BI 2V [address] [employer] Other XR knee BI 2V XRay Report Merged With [facility] [employer] Other XR knee BI 2V Signed [employer] Other XR knee BI 2V Patient: Corina Davis MR#: [id number] [employer] Other XR knee BI 2V 14 [facility] [employer] Other XR knee BI 2V : 1945 Acct:[id number] [employer] Other XR knee BI 2V Age/Sex: 77 / M ADM Date: 10/12/22 [employer] Other XR knee BI 2V Loc: SOXD Room: Type : [facility] [employer] Other XR knee BI 2V Attending Dr: Bruce Shine II, MD [facility] [employer] Other XR knee BI 2V Copies to: Bruce Shine MD [employer] Other XR knee BI 2V Ordering Provider: Bruce Shine MD [employer] Other XR knee BI 2V Date of Service: 10/12/22 [employer] Other XR knee BI 2V XR/XR hip BI w PEL1V: Pain in right hip;Pain in left hip [employer] Other XR knee BI 2V ([id number]) XR/XR knee BI 2V: PAIN [employer] Other XR knee BI 2V ADULT PELVIS WITH BILATERAL HIPS - one view each, bilateral knee series 4 views each [employer] Other XR knee BI 2V CLINICAL HISTORY: Bilateral hip/groin pain for years. Bilateral generalized knee pain for years. [employer] Other XR knee BI 2V COMPARISON: None [employer] Other XR knee BI 2V FINDINGS: [employer] Other XR knee BI 2V Hip series: Moderate degenerative changes of both hips without acute bony process. Degenerative [employer] Other XR knee BI 2V change also noted involving the visualized lower lumbar spine, SI joints and pubic symphysis. [employer] Other XR knee BI 2V Bilateral knee series: Bilateral knee prostheses are in place without radiographic complication. No [employer] Other XR knee BI 2V acute bony process i s seen. Vascular calcifications. [employer] Other XR knee BI 2V XR/XR hip BI w PEL1V [employer] Other XR knee BI 2V IMPRESSION: [employer] Other XR knee BI 2V MODERATE DEGENERATIV E CHANGES OF BOTH HIPS WITHOUT ACUTE BONY PROCESS. [employer] Other XR knee BI 2V BILATERAL KNEE PROSTHESES WITHOUT RADIOGRAPHIC COMPLICATION. [employer] Other XR knee BI 2V Impression dictated by: Jose Galvan Jr., Rubens10/12/2022 12:41 PM [employer] Other XR knee BI 2V Dictation Location: [place] [address] [employer] [employer] Other XR knee BI 2V Transcribed By: PWS 10/12/22 1241 [employer] Other XR knee BI 2V Dictated By: Jose Galvan Jr DO 10/12/22 1239 [employer] Other XR knee BI 2V Signed By: [facility] [employer] Other XR knee BI 2V 10/12/22 1241 [employer] Other A1C with Estimated Average G luon 05-16-2022 A1C with Estimated Average Glu [employer] Other GLYCOHEMOGLOBIN A1Con 2022 ADA RECOMMENDATION SEE BELOW Normal [facility] Comment on above: Result Comment: ADA RECOMMENDED LIMIT 4.0 - 6.0 ADA THERAPEUTIC TARGET < 7.0 ACTION SUGGESTED > 7.0 Performed By: #### A 1C #### [facility] [address] [address] [address] Edna Machado Glucose [Mass/Vol] 131 mg/dL Normal [facility] Comment on above: Performed By: #### A 1C #### [facility] [address] [address] [address] Edna Machado HbA1c (Bld) [Mass fraction] 6.2 % Normal 4.5-6.2 [facility] Comment on above: Performed By: #### A 1C #### [facility] [address] [address] CHEST WO CONon [...] GLENDA FENG Date: 2021-09-24 13:29 Normal [facility] CBC AUTO DIFFon 09-22-2021 BASO # 0.0 103/ul Normal 0.0-0.1 [facility] Comment on above: Performed By: #### C BC #### [facility] [address] [place] [address] Dr. Edna Machado Basophils/100 WBC (Bld) 0.5 % Normal 0.2-2.0 [facility] Comment on above: Performed By: #### C BC #### [facility] [address] [place] [address] Dr. Edna Machado EO # 0.1 103/ul Normal 0.0-0.7 [facility] Comment on above: Performed By: #### C BC #### [facility] [address] [place] [address] Dr. Edna Machado Eosinophils/100 WBC (Bld) 1.4 % Normal 0.9-7.0 [facility] Comment on above: Performed By: #### C BC #### [facility] [address] [place] [address] Dr. Edna Machado Erythrocyte distribution width (RBC) [Ratio] 14.6 % Normal 11.0-15.0 [facility] Comment on above: Performed By: #### C BC #### [facility] [address] [place] [address] Dr. Edna Machado Hematocrit (Bld) [Volume fraction] 46.5 % Normal 42.0-54.0 [facility] Comment on above: Performed By: #### C BC #### [facility] [address] [place] [address] Dr. Edna Machado Hemoglobin (Bld) [Mass/Vol] 15.0 g/dL Normal 14.0-18.0 [facility] Comment on above: Performed By: #### C BC #### [facility] [address] [place] [address] Dr. Edna Machado IG # 0.01 10e3/ul Normal 0.00-0.03 [facility] Comment on above: Performed By: #### C BC #### [facility] [address] [place] [address] Dr. Edna Machado IG % 0.1 % Normal 0.0-0.5 [facility] Comment on above: Performed By: #### C BC #### [facility] [address] [place] [address] Dr. Edna Machado LYMPH # 2.1 103/ul Normal 1.2-3.8 [facility] Comment on above: Performed By: #### C BC #### [facility] [address] [place] [address] Dr. Edna Machado Lymphocytes/100 WBC (Bld) 27.8 % Normal 20.5-60.0 [facility] Comment on above: Performed By: #### C BC #### [facility] [address] [place] [address] Dr. Edna Machado MANUAL DIFF REQ NO Normal [facility] Comment on above: Performed By: #### C BC #### [facility] [address] [place] [address] Dr. Edna Machado MCH (RBC) [Entitic mass] 29.0 pg Normal 25.9-34.0 [facility] Comment on above: Performed By: #### C BC #### [facility] [address] [place] [address] Dr. Edna Machado MCHC (RBC) [Mass/Vol] 32.3 g/dL Normal 29.9-35.2 [facility] Comment on above: Performed By: #### C BC #### [facility] [address] [place] [address] Dr. Edna Machado MCV (RBC) [Entitic vol] 89.8 fL Normal 80.0-94.0 [facility] Comment on above: Performed By: #### C BC #### [facility] [address] [place] [address] Dr. Edna aMchado MONO # 0.6 103/ul Normal 0.3-0.8 [facility] Comment on above: Performed By: #### C BC #### [facility] [address] [place] [address] Dr. Edna Machado Monocytes/100 WBC (Bld) 8.3 % Normal 1.7-12.0 [facility] Comment on above: Performed By: #### C BC #### [facility] [address] [place] [address] Dr. Edna Machado NEUT # 4.6 103/ul Normal 1.4-6.5 [facility] Comment on above: Performed By: #### C BC #### [facility] [address] [place] [address] Dr. Edna Machado Neutrophils/100 WBC (Bld) 61.9 % Normal 43.0-75.0 [facility] Comment on above: Performed By: #### C BC #### [facility] [address] [place] [address] Dr. Edna Machado Platelet mean volume (Bld) [Entitic vol] 10.0 fL Normal 9.5-13.5 [facility] Comment on above: Performed By: #### C BC #### [facility] [address] [place] [address] Dr. Edna Machado PLT 218 103/ul Normal 150-450 [facility] Comment on above: Performed By: #### C BC #### [facility] [address] [place] [address] Dr. Edna Machado RBC 5.18 106/ul Normal 4.70-6.10 [facility] Comment on above: Performed By: #### C BC #### [facility] [address] [place] [address] Dr. dEna Machado WBC 7.4 103/ul Normal 4.0-11.0 [facility] Comment on above: Performed By: #### C BC #### [facility] [address] [place] [address] Dr. Edna Machado GLYCOHEMOGLOBIN A1Con 2021 ADA RECOMMENDATION SEE BELOW Normal [facility] Comment on above: Result Comment: ADA RECOMMENDED LIMIT 4.0 - 6.0 ADA THERAPEUTIC TARGET < 7.0 ACTION SUGGESTED > 7.0 Performed By: #### A 1C #### [facility] [address] [place] [address] Dr. Edna Machado Glucose [Mass/Vol] 123 mg/dL Normal [facility] Comment on above: Performed By: #### A 1C #### [facility] [address] [place] [address] Dr. Edna Machado HbA1c (Bld) [Mass fraction] 5.9 % Normal 4.5-6.2 [facility] Comment on above: Performed By: #### A 1C #### [facility] [address] [place] [address] Dr. Edna Machado LIPID PROFILEon 09-22-2021 CHOL-HDL RATIO NORM SEE BELOW Normal [facility] Comment on above: Result Comment: 3.3 - 4.4 LOW RISK 4.4 - 7.1 AVERAGE RISK 7.1 - 11.0 MODERATE RISK >11.0 HIGH RISK Performed By: #### L IPID, CMP #### [facility] [address] [address] [address] Edna Machado Cholesterol [Mass/Vol] 132 mg/dL Normal <=200 [facility] Comment on above: Performed By: #### L IPID, CMP #### [facility] [address] [address] [address] Edna Machado Cholesterol in HDL [Mass/Vol] 43 mg/dL Normal 40-60 [facility] Comment on above: Performed By: #### L IPID, CMP #### [facility] [address] [address] [address] Edna Machado Cholesterol in LDL [Mass/Vol] 71.0 mg/dL Normal [facility] Comment on above: Performed By: #### L IPID, CMP #### [facility] [address] [place] [address] Dr. Edna Machado Cholesterol.total/Cho lesterol in HDL [Mass ratio] 3.1 {ratio} Normal [facility] Comment on above: Performed By: #### L IPID, CMP #### [facility] [address] [address] [address] Edna Machado HDL NORMAL > or = 60 mg/dl - LO W CARDIOVASCULAR RISK <40 mg/dl - HIGH CARDIOVASCULAR RISK Normal [facility] Comment on above: Performed By: #### L IPID, CMP #### [facility] [address] [address] [address] Edna Machado LDL CALC NORMAL SEE BELOW Normal [facility] Comment on above: Result Comment: <100 mg/dl OPTIMAL 100 - 129 mg/dl NEAR OR ABOVE OPTIMAL 130 - 159 mg/dl BORDERLINE HIGH 160 - 189 mg/dl HIGH >190 mg/dl VERY HIGH Performed By: #### L IPID, CMP #### [facility] [address] [address] [address] Edna Machado Triglyceride [Mass/Vol] 90 mg/dL Normal <=150 [facility] Comment on above: Performed By: #### L IPID, CMP #### [facility] [address] [address] [address] Edna Machado VLDL CALC 18.0 mg/dL Normal [facility] Comment on above: Performed By: #### L IPID, CMP #### [facility] [address] [address] [address] Edna Machado PROF 14(COMP METB)on 022 Albumin [Mass/Vol] 3.5 g/dL Normal 3.4-5.0 [facility] Comment on above: Performed By: #### L IPID, CMP #### [facility] [address] [address] [address] Edna Machado Albumin/Globulin [Mass ratio] 0.9 {ratio} Normal [facility] Comment on above: Performed By: #### L IPID, CMP #### [facility] [address] [place] [address] Dr. Edna Machado ALP [Catalytic activity/Vol] 83 U/L Normal 46-116 [facility] Comment on above: Performed By: #### L IPID, CMP #### [facility] [address] [place] [address] Dr. Edna Machado ALT [Catalytic activity/Vol] 22 U/L Normal 16-63 [facility] Comment on above: Performed By: #### L IPID, CMP #### [facility] [address] [place] [address] Dr. Edna Machado Anion gap [Moles/Vol] 9.4 mmol/L Normal [facility] Comment on above: Performed By: #### L IPID, CMP #### [facility] [address] [place] [address] Dr. Edna Machado AST [Catalytic activity/Vol] 13 U/L Critically low 15-37 [facility] Comment on above: Performed By: #### L IPID, CMP #### [facility] [address] [place] [address] Dr. Edna Machado Bilirubin [Mass/Vol] 0.6 mg/dL Normal 0.2-1.0 [facility] Comment on above: Performed By: #### L IPID, CMP #### [facility] [address] [address] [address] Edna Machado Calcium [Mass/Vol] 8.7 mg/dL Normal 8.5-10.[address] [facility] Comment on above: Performed By: #### L IPID, CMP #### [facility] [address] [address] [address] Edna Machado Chloride [Moles/Vol] 103 mmol/L Normal 98-107 [facility] Comment on above: Performed By: #### L IPID, CMP #### [facility] [address] [address] [address] Edna Machado CO2 [Moles/Vol] 28.7 mmol/L Normal 21.0-32.0 [facility] Comment on above: Performed By: #### L IPID, CMP #### [facility] [address] [place] [address] Dr. Edna Machado Creatinine [Mass/Vol] 0.83 mg/dL Normal 0.70-1.30 [facility] Comment on above: Performed By: #### L IPID, CMP #### [facility] [address] [address] [address] Edna Machado EGFR-AF [place]AH[place] >60 Normal >=60 [facility] Comment on above: Performed By: #### L IPID, CMP #### [facility] [address] [address] [address] Edna Machado EGFR-NON AF [place] >60 Normal >=60 [facility] Comment on above: Performed By: #### L IPID, CMP #### [facility] [address] [address] [address] Edna Machado Globulin (S) [Mass/Vol] 3.7 g/dL Normal [facility] Comment on above: Performed By: #### L IPID, CMP #### [facility] [address] [address] [address] Edna Machado Glucose [Mass/Vol] 106 mg/dL Normal 74-[address] [facility] Comment on above: Performed By: #### L IPID, CMP #### [facility] [address] [address] [address] Edna Machado Potassium [Moles/Vol] 4.1 mmol/L Normal 3.5-5.1 [facility] Comment on above: Performed By: #### L IPID, CMP #### [facility] [address] [address] [address] Edna Machado Protein [Mass/Vol] 7.2 g/dL Normal 6.4-8.2 [facility] Comment on above: Performed By: #### L IPID, CMP #### [facility] [address] [address] [address] Edna Machado Sodium [Moles/Vol] 137 mmol/L Normal 136-145 [facility] Comment on above: Performed By: #### L IPID, CMP #### [facility] [address] [place] [address] Dr. Edna Machado Urea nitrogen [Mass/Vol] 11.0 mg/dL Normal 7.0-18.0 [facility] Comment on above: Performed By: #### L IPID, CMP #### [facility] [address] [place] [address] Dr. Edna Machado Urea nitrogen/Creatinine [Mass ratio] 13.3 mg/mg Normal [facility] Comment on above: Performed By: #### L IPID, CMP #### [facility] [address] [place] [address] Dr. Edna Machado Ambulatory Clinical Summaryo n 02-28-2020 Ambulatory Clinical Summary {[id number] Normal [facility] Patient Education 02-28-20 Patient Education Family [...] Document Reviewed: 11/02/2007 ExitCare? Patient Information ?2013 [employer]. [facility] Urology Office/Clinic Noteon 02-28-2020 Urology [...] nicotine dependence) 5. Anticoagulant long-term use (Z79.01: assisted (current) use of anticoagulants) warfarin therapy I [...] Protein Urine Dipstick: Negative (02/28/20 08:57:00) Specific [place] Urine Dipstick: 1.020 (02/28/20 08:57:00) Urine Appearance Urine Dipstick: Clear (02/28/20 08:57:00) Urine Color Urine Dipstick: Yellow (02/28/20 08:57:00) Urobilinogen Urine Dipstick: Normal 0.2-1 EU/dl (02/28/20 08:57:00) pH Urine Dipstick: 5 (02/28/20 08:57:00) Normal [facility] Comment on above: Result Comment: Elec [...] EST Reminder/Recall Pt sched 01/17/20 @ 7:45am Meyer Omari for renal US, Order faxed Show PRW, [...] pw. Patient was notified of results.LG Normal [facility] RAD - Ultrasound Reporton RAD - Ultrasound Report [id number]#1. 00CD:127 Normal [facility] UroVysion Fish and Urine Cyt o ([facility])on 01-17-2020 UVFISH & UC Diagnosis Info [facility] Comment on above: Result Comment: A:Ur [...] on: 01/17/2020 07:53:07 Performed By: #### 1 [id number] ####[facility] [address] [place] [address] Coding Summary.on 01-08-2020 Coding Summary. CODING DATE: 01/08/2020 FINAL [facility] DSC STATUS: Home (Routine DC) PAYOR: Medicare APC DESCRIPTION 5372 Level 2 Urology and Related Services ADMIT DX: REASON FOR VISIT DX: R31.0 Gross hematuria FINAL DX: PRINCIPAL: R31.0 Gross hematuria SECONDARY: N40.1 Benign prostatic hyperplasia with lower urinary tract symptoms R31.29 Other microscopic hematuria I10 Essential (primary) hypertension I25.10 Atherosclerotic heart disease of [place] coronary artery without angina pectoris E78.5 Hyperlipidemia, unspecified E11.9 Type 2 diabetes mellitus without complications J44.9 Chronic obstructive pulmonary disease, unspecified E66.01 Morbid (severe) obesity due to excess calories Z68.41 Body mass index [BMI]40.0-44.9, adult I49.9 Cardiac arrhythmia, unspecified 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 However, the narrative phrase printed from the coding software may appear abbreviated, or result in slightly different terminology. Coded By: Edwina Marie Date Saved: 01/08/2020 10:47 am Normal [facility] Consent for Procedure/Surger yon 01-08-2020 Consent for Procedure/Surgery [id number]# 1.00CD:127 Normal [facility] Discharge Instructionson Discharge Instructions [id number]# 1.00CD:127 Normal [facility] History and Physicalon 01-07 History and Physical [id number]# 1.00CD:127 Normal [facility] IntraOperative Documentson 1 IntraOperative Documents [id number]# 1.00CD:127 [facility] Consent for Treatmenton 12-12 Consent for Treatment [id number]#1 .00CD:127 [facility] Main OR Intraoperative Recor don 01-07-2020 Main OR Intraoperative Record IntraOp Document Type FTURO Summary Primary Physician: David DANIEL MD Finalized Date/Time: 01/07/20 10:17:52 Pt. Name: JORGE DAVIS Kavita /Sex: 1945 Male Med Rec #: [id number] Physician: David DANIEL MD Financial #: [id number] Pt. Type: O Room/Bed: / Admit/Disch: 01/07/20 09:23:05 - Institution: Case Times FTURO Entry 1 Patient Times In Room 01/07/20 10:00:00 Out Room 01/07/20 10:23:00 Procedure Times Start 01/07/20 10:11:00 Stop 01/07/20 10:18:00 Anesthesia Times Last Modified By: Harmony KILLIAN, GERMANIA, Ronda 01/07/20 10:15:32 Case Attendance FTURO Entry 1 Entry 2 Entry 3 Case Attendee David DANIEL MD RN, CNOR, Catherine WILSON, Maday Bond Role Performed Surgeon - Primary Bistro Server - Primary Scrub - Primary Time In [...] GERMANIA Antunez RN, Applicable) Catherine Bond CST, Maday Time Out [...] 10:16 GERMANIA Antunez RN, Ruthann 01/07/20 10:17 [facility] Main OR Preoperative Recordo n 01-07-2020 Main OR Preoperative Record Holding Area Document Type FTURO Summary Primary Physician: David DANIEL MD Finalized Date/Time: 01/07/20 10:07:43 Pt. Name: JORGE DAVIS Kavita /Sex: 1945 Male Med Rec #: [id number] Physician: David DANIEL MD Financial #: [id number] Pt. Type: O Room/Bed: / Admit/Disch: 01/07/20 [...] Lens Implant, Jewelry Personal Items watch Limitations: JACKSON Comment: Complaints of Pain: No Skin Integrity [...] 09:37 GERMANIA Antunez RN, Ruthann 01/07/20 10:07 [facility] Operative Reporton 10-27-202 0 Operative Report Patient: JORGE DAVIS Age: [...] with antibiotic coverage, Follow up arranged. Normal [facility] Comment on above: Result Comment: Elec [...] have a fever over 100 degrees. Normal [facility] UroVysion Fish and Urine Cyt o ([facility])on 01-07-2020 [facility] Method of Extraction Voided Normal [facility] Comment on above: Performed By: #### 1 [id number] ####[facility] [address] [place] [address] [facility] Number of Jars 1 Bette loaiza [facility] Comment on above: Performed By: #### 1 [id number] ####[facility] [address] [place] [address] [facility] Specimen Urine Normal [facility] Comment on above: Performed By: #### 1 [id number] ####[facility] [address] [place] [address] [facility] Type of Service Technical Only Normal [facility] Comment on above: Performed By: #### 1 [id number] ####[facility] [address] [place] [address] ALLIED HEALTHon 12-24-2019 ALLIED HEALTH HNO ID: [id number] Author: ERICA Ibarra (Ct) Service: Radiology Author Type: Accident Examiner Type: Allied Health Filed: 12/24/2019 9:54 AM [...] DATE: December 24, 2019 TIME: 9:[address] [facility] [address] PULMONARY VEIN W IVCONon 12-24-2019 [...] was employed ([employer]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 Spiral imaging [...] as dissection, intramural hematoma, or contained rupture. Montessori Lead Teacher dimensions of the thoracic aorta are as [...] CT exam in 3 months is recommended. Kettle Firer: LELIA Transcribe Date/Time: Dec 24 2019 11:12A Dictated by : SARA SIMPSON MD This examination was interpreted and the report reviewed and electronically signed by: SARA SIMPSON MD on Dec 24 2019 12:47PM EST [id number] ACTIONABLE [facility] NURSING PROGon 12-24-2019 NURSING PROG HNO ID: [id number] Author: Arlene (Rn) [place], CONSTANTIN Service: Nursing Author Type: Registered Nurse Type: Nursing Progress Note Filed: 12/24/2019 11:00 AM Note Text: Nursing Progress Note Topic of Note: Daily Note Jorge Davis [id number] Pt SR. Procedure cancelled. H/L removed from CT scan. Dr. Nelson spoke with p0t. This note was completed by: Arlene Chowdhury, RN Normal [facility] PROGRESSon 12-24-2019 PROGRESS HNO ID: [id number] Author: Ezequiel Nelson Service: Electrophysiology Author Type: Physician Type: Progress Notes Filed: 12/24/2019 10:44 AM Note Text: Scheduled for cardioversion, but in SR upon arrival. [facility] CNPNon 12-18-2019 CNPN Telephone (FVPRAD) JORGE DAVIS ([id number]) 1945 [place] Date Time Provider Department 12/18/19 SHAMA [...] He will get labs done tomorrow at [facility] Sending to procedure schedulers for cardioversion scheduling. If possible try to arrange on 12/23 at in early afternoon as he will already be here and NPO for CT scan. If not possible on that day then please schedule at [facility] with available provider at patient's convenience Shama Ibanez PA-C. Johnny Diaz 12/19/2019 10:22 AM Signed Pts calling back in regards to below. Would like a return call with questions about the procedure. can be reached at [phone], ok to leave detailed message. Please advise. Laura Schneider APRN.CNP 12/19/2019 1:50 PM Signed Called . She had questions regarding where to report the day of the CT scan and DCCV. Advised to report to the main lobby and security will direct them to the appropriate locations. Laura Schneider APRN.CNP Allergies As of Date: 12/18/2019 (No Known Allergies) Date Reviewed: 11/05/2019 Reviewed by: Lyndsay Higgins Ma - Fully Assessed Reason for Visit: Results [95] Primary Visit Diagnosis:Atrial fibrillation, persistent (HCC) [I48.19] Order(s):CBC + DIFF [SQCBCDIF] Order #: [id number] FUTURE BASIC METABOLIC PNL [SQBMP] Order #: [id number] FUTURE MAGNESIUM BLD [SQMG1] Order #: [id number] FUTURE PRE-PROCEDURE AND PRE-OPERATIVE COVID [SQPOCOVD] Order #: [id number] FUTURE CARDIOVERSION, ELECTIVE, ELECTRICAL [79141CIK] Order #: [id number]: 1 Prescriptions as of 12/18/2019 Sig: [email or web address] [...] Atrial fibrillation (HCC) [I48.91] 07/08/2014 Atherosclerosis of [place] coronary artery of na*07/10/2015 Diabetes mellitus type 2, controlled, without c*07/10/2015 Atrial fibrillation, persistent (HCC) [I48.19] 07/22/2015 Paroxysmal atrial fibrillation (HCC) [I48.0] 12/04/2015 Paroxysmal atrial flutter (HCC) [I48.92] 05/30/2018 Obesity, Class III, BMI >= 40 [E66.01] 10/23/2019 Encounter Status:Closed by SHAMA IBANEZ PA-C on 12/18/19 [facility] HOSP 12-18-2019 [facility] Patient:Jorge Davis MRN: Height:5' 6 (1.676 m) [...] [E78.5] Atrial fibrillation (HCC) [I48.91] Atherosclerosis of [place] coronary artery of [place] heart without angina pectoris [I25.10] Diabetes mellitus [...] 50.5 % 12/19/2019 51.0 39.0 Progress Notes (FV PROVIDER ADULT): Shama Ibanez PA-C, PA 12/18/2019 3:11 PM Signed Monitor done show persistent AF 100% burden Case discussed with Dr Denton and he recommends cardioversion Called and discussed this with patient, he is willing to proceed Lab and covid orders placed He will get labs done tomorrow at [facility] Sending to procedure schedulers for cardioversion scheduling. If possible try to arrange on 12/23 at in early afternoon as he will already be here and NPO for CT scan. If not possible on that day then please schedule at [facility] with available provider at patient's convenience Shama Ibanez PA-C. Johnny Diaz 12/19/2019 10:22 AM Signed Pts calling back in regards to below. Would like a return call with questions about the procedure. can be reached at [phone], ok to leave detailed message. Please advise. Laura Schneider APRN.TATA 12/19/2019 1:50 PM Signed Called . She had questions regarding where to report the day of the CT scan and DCCV. Advised to report to the main lobby and security will direct them to the appropriate locations. Laura Schneider APRN.FLEET ADMINISTRATOR [facility] NURSING PROGon 10-24-2019 Cholesterol [Mass/Vol] HNO ID: [id number] Author: Nga (Rn) CONSTANTIN Garcia Service: Nursing Author Type: Registered Nurse Type: Nursing Progress Note Filed: 10/24/2019 11:13 AM Note Text: Nursing Progress Note Topic of Note: Routine Reassessment Jorge Davis [id number] 1110- Patient up in bed. Bilateral groins soft, tender, bilateral DP pulses palpable. Patient states no pain, is unhappy that he is not discharged yet. ODD PIECE CHECKER notified and will be up to D/C soon. This note was completed by: Nga Garcia RN [facility] NURSING PROG HNO ID: [id number] Author: Caridad BriggsRn) CONSTANTIN Alvarez Service: Nursing Author Type: Registered Nurse Type: Nursing Progress Note Filed: 10/24/2019 8:21 AM Note Text: Nursing Progress Note Patient Name: Jorge Davis Patient Location: [id number]/[facility] [id number] Daily Note: 0800- Pt sitting up in bed, assessment charted per npr, IV patent, Bilat groins soft, tender,no s/s of any bleeding or infection, bilat pedal pulses palpated,call light within reach,am meds given,no pain,no issues. This note was completed by: Caridad Alvarez RN [facility] ANES POSTPROC EVALon 020 ANES POSTPROC EVAL HNO ID: [id number] Author: Murtaza Bauer Service: ? Author Type: [...] October 23, 2019 TIME: 3:04 PM CSN: [id number] [facility] ANES PRE-OPon 10-23-2019 ANES PRE-OP HNO ID: [id number] Author: Murtaza Bauer Service: ? Author Type: [...] (obstructive sleep apnea) CARDIO (+) Atherosclerosis of [place] coronary artery of [place] heart without angina pectoris (+) Atrial fibrillation [...] October 23, 2019 TIME: 7:27 AM CSN: [id number] Normal [facility] Basic Metabolic Panlon 10-22 Anion gap [Moles/Vol] 15 mmol/L Normal 9-18 [facility] Comment on above: Performed By: #### C , BMP #### [facility] [address] [place] [address] Calcium [Mass/Vol] 9.1 mg/dL Normal 8.5-10.5 [facility] Comment on above: Performed By: #### C , BMP #### [facility] [address] [place] [address] Chloride [Moles/Vol] 103 mmol/L Normal 98-110 [facility] Comment on above: Performed By: #### C BC, BMP #### [place] [id number] CO2 [Moles/Vol] 21 mmol/L Low 23-32 [facility] Comment on above: Performed By: #### C BC, BMP #### [place] [phone] Creatinine [Mass/Vol] 0.78 mg/dL Normal 0.70-1.40 [facility] Comment on above: Performed By: #### C BC, BMP #### [place] [phone] eGFR- Amer. >60 Normal >60 [facility] Comment on above: Performed By: #### C BC, BMP #### [place] [phone] GFR/1.73 sq M predicted among non-blacks MDRD (S/P/Bld) [Vol rate/Area] mL/min/{1.73_m2} Normal >60 [facility] Comment on above: Performed By: #### C BC, BMP #### [place] [id number] Glucose [Mass/Vol] 124 mg/dL High 65-100 [facility] Comment on above: Performed By: #### C BC, BMP #### [place] [phone] Potassium [Moles/Vol] 4.1 mmol/L Normal 3.5-5.0 [facility] Comment on above: Performed By: #### C BC, BMP #### [place] [phone] Sodium [Moles/Vol] 139 mmol/L Normal 135-146 [facility] Comment on above: Performed By: #### C BC, BMP #### [place] [phone] Urea nitrogen [Mass/Vol] 16 mg/dL Normal 10-25 [facility] Comment on above: Performed By: #### C BC, BMP #### [place] [phone] CBCon 10-23-2019 Absolute nRBC <0.01 Normal <0.01 [facility] Comment on above: Performed By: #### C BC, BMP #### [place] [phone] Erythrocyte distribution width (RBC) [Ratio] 14.7 % Normal 11.5-15.0 [facility] Comment on above: Performed By: #### C BC, BMP #### [place] [phone] Hematocrit (Bld) [Volume fraction] 46.7 % Normal 39.0-51.0 [facility] Comment on above: Performed By: #### C BC, BMP #### [place] [phone] Hemoglobin (Bld) [Mass/Vol] 14.8 g/dL Normal 13.0-17.0 [facility] Comment on above: Performed By: #### C BC, BMP #### [place] [phone] MCH (RBC) [Entitic mass] 28.7 pG Normal 26.0-34.0 [facility] Comment on above: Performed By: #### C BC, BMP #### [place] [phone] MCHC (RBC) [Mass/Vol] 31.7 g/dL Normal 30.5-36.0 [facility] Comment on above: Performed By: #### C BC, BMP #### [place] [phone] MCV (RBC) [Entitic vol] 90.7 fL Normal 80.0-100.0 [facility] Comment on above: Performed By: #### C BC, BMP #### [place] [phone] Platelet mean volume (Bld) [Entitic vol] 10.0 fL Normal 9.0-12.7 [facility] Comment on above: Performed By: #### C BC, BMP #### [place] [id number] [place] [address] Platelets (Bld) [#/Vol] 178 10*3/uL Normal 150-400 [facility] Comment on above: Performed By: #### C BC, BMP #### [place] [address] RBC (Bld) [#/Vol] 5.15 10*6/uL Normal 4.20-6.00 [facility] Comment on above: Performed By: #### C BC, BMP #### [address] [address] WBC (Bld) [#/Vol] 6.73 10*3/uL Normal 3.70-11.00 [facility] Comment on above: Performed By: #### C BC, BMP #### [place] [address] ECG COMPLETEon 10-23-2019 ECG COMPLETE NAME : JORGE DAVIS PID : [id number] : 1945 Gender : Male Race : ORD : [id number] Procedure Date : Oct 23 2019 14:59:44 Edit Date : Oct 23 2019 17:01:19 Diagnosis:Sinus tachycardia IVCD, consider atypical RBBB Abnormal ECG Confirmed by KATRINA KELLEY MD ([id number]) on 10/23/2019 5:01:18 PM Ventricular Rate : 101 BPM Atrial Rate : 101 BPM P-R Interval : 187 ms QRS Duration : 122 ms Q-T Interval : 386 ms QTC Calculation(Bazett) : 501 ms P Grace : 65 degrees R Grace : -32 degrees T Grace : 54 degrees Test Reason : Post-OP Location : 400 : [facility] 6 Overread By : KATRINA KELLEY MD Edited By : KATRINA KELLEY MD Referred By : , Acquired by : DARA, Normal [facility] ECG COMPLETE NAME : JORGE DAVIS PID : [id number] : 1945 Gender : Male Race : ORD : [id number] Procedure Date : Oct 23 2019 07:03:28 Edit Date : Oct 23 2019 16:59:50 Diagnosis:Atrial fibrillation Abnormal ECG Confirmed by KATRINA KELLEY MD ([id number]) on 10/23/2019 4:59:48 PM Ventricular Rate : 70 BPM Atrial Rate : 0 BPM P-R Interval : 120 ms QRS Duration : 109 ms Q-T Interval : 437 ms QTC Calculation(Bazett) : 472 ms R Grace : -21 degrees T Grace : 35 degrees Test Reason : Pre OP Location : 400 : EKG 6 Overread By : KATRINA KELLEY MD Edited By : KATRINA KELLEY MD Referred By : , Acquired by : , Ale [facility] HISTORY PHYSICALon 0 HISTORY PHYSICAL HNO ID: [id number] Author: Ruben Denton MD Service: Cardiovascular Disease [...] DRILLING 2005 - PAST SURGICAL HISTORY OF 1975 Fistulotomy - PAST SURGICAL HISTORY OF Partial Medial Menisectomy Bilateral Knee - PAST SURGICAL HISTORY OF 1991 Acrominoplasty Right Shoulder - PAST SURGICAL HISTORY OF Bilateral Club Foot Surgery - PAST SURGICAL HISTORY OF 2008 Anthroscopy Left Shoulder - PAST SURGICAL HISTORY OF 2010 Revision Left Knee - PAST SURGICAL HISTORY OF minor hand surgery - [place] ANESTH,TOTAL KNEE ARTHROPLASTY 2006 Right Knee - [...] October 23, 2019 TIME: 6:59 AM PAGER: [phone] CARD EP STAFF Pt seen and examined. The documented findings were individually confirmed, and the history was verified and corrected, if appropriate. I discussed the patient's management with the PA and reviewed their note. Additional Hx/summary is as follows: 74 YO male with persistent AF despite prior DCCV and dofetilide. He presents today for PVAI. Ruben Denton MD [facility] NURSING PROGon 10-23-2019 NURSING PROG HNO ID: [id number] Author: Nacho Hatfield (Rn) CONSTANTIN Mensah Service: Nursing Author Type: Registered Nurse Type: Nursing Progress Note Filed: 10/24/2019 5:41 AM Note Text: Nursing Progress Note Patient Name: Jorge Davis Patient Location: [id number]/[facility]-[id number] Pt resting quietly in room. R/L groins soft and without hematoma or bleeding. (Small pink drainage left groin noted). DP pulses palpable. No pain or complaints. ODD PIECE CHECKER cough noted. Cepacol ineffective. Obtained Tessalon perles [...] note was completed by: Nacho Mensah RN [facility] NURSING PROG HNO ID: [id number] Author: Marybeth BriggsRn) CONSTANTIN Parr Service: Nursing Author Type: Registered Nurse Type: Nursing Progress Note Filed: 10/23/2019 4:47 PM Note Text: Nursing Progress Note Topic of Note: Daily Note Jorge Davis [id number] 1630 pt. up to floor via bed from [facility], report received from Karie De Leon [...] note was completed by: Marybeth Parr RN [facility] NURSING PROG HNO ID: [id number] Author: Celeste Andrews) CONSTANTIN Fay Service: Nursing [...] with red blood from continuous coughing. Dr. Dresing over to see patient and assess groin sites. 0000 Report called to Henrique Parr R.N. 1621 Pt. transported via bed to [facility] with all personal belongings. Normal [facility] Type and Screenon 10-23-2019 ABO/RH(D) Positive Normal [facility] Comment on above: Performed By: #### T SCR ####[place] [phone] Urinalysison 10-23-2019 Bilirubin, Urine Negative Normal Negative [facility] Comment on above: Performed By: #### U A #### [place] [phone] Clarity (U) Clear Normal Clear [facility] Comment on above: Performed By: #### U A #### [phone] Color (U) Light Yellow Critically abnormal Yellow [facility] Comment on above: Performed By: #### U A #### [place] [phone] Comments SEE COMMENT Normal [facility] Comment on above: Result Comment: Micr oscopic not warranted Performed By: #### U A #### [place] [phone] Glucose Ql (U) Negative Normal [facility] Comment on above: Performed By: #### U A #### [address] Hemoglobin/Blood,Ur Negative Normal Negative [facility] Comment on above: Performed By: #### U A #### [place] [phone] Ketones Ql (U) Negative Normal Negative [facility] Comment on above: Performed By: #### U A #### [place] [phone] Leukest Negative Normal Negative [facility] Comment on above: Performed By: #### U A #### [place] [phone] Nitrite Ql (U) Negative Normal Negative [facility] Comment on above: Performed By: #### U A #### [place] [phone] pH (Bld) 6.5 Normal 5.0-8.0 [facility] Comment on above: Performed By: #### U A #### [phone] Protein (U) [Mass/Vol] Negative Normal Negative [facility] Comment on above: Performed By: #### U A #### [place] [phone] Specific [place], Ur 1.015 Normal 1.005-1.030 [facility] Comment on above: Performed By: #### U A #### [place] [phone] Urobilinogen Qn (U) Negative Normal Negative [facility] Comment on above: Performed By: #### U A #### [address]476[address] Lab Reportson 10-11-2019 Lab Reports [id number]. 00CD:127 Normal [facility] Confirm Blood Typeon 020 ABO/RH(D) Positive Normal [facility] Comment on above: Performed By: #### C ONABO ####[address] [phone] HOSPon 09-18-2019 HOSP Patient:Jorge Davis MRN: Height:5' [...] [E78.5] Atrial fibrillation (HCC) [I48.91] Atherosclerosis of [place] coronary artery of [place] heart without angina pectoris [I25.10] Diabetes mellitus [...] Progress Notes (CARD EPS MAIN): Jessika Villegas [facility] 10/22/2019 1:11 PM Signed October 22, 2019 1:10 PM Patient Name: Jorge Davis [id number] Contact Information: [phone] (home) [phone] (cell) Reason for Call: Patient scheduled for PVI ablation tomorrow at [facility] - what are his instructions regarding his eliquis ? Physician: Ruben Denton MD, CONSTANTIN, RN 10/22/2019 4:[address] Thomas instructions available in [facility] patient advised to hold Eliquis the morning of his procedure. HE stated understanding. Carmelina Bender RN Progress Notes (CARD EPS MAIN): Jessika Villegas [facility] 10/14/2019 3:44 PM Signed October 14, 2019 3:43 PM Patient Name: Jorge Davis [id number] Contact Information: [phone] (home) [phone] (cell) Last visit with EP Provider: 04/19/2019 Reason for Call: Received partially completed application for [employer] with documentation from patient; gave to nurse to complete physician section Physician: Ruben Denton MD, RN, RN 10/16/2019 9:51 AM Signed Completed and returned to [facility]. Usha Bonilla RN [facility] NURSING PROGon 09-18-2019 NURSING PROG HNO ID: [id number] Author: Arlene (Rn) CONSTANTIN Chowdhury Service: Nursing Author Type: Registered Nurse Type: Nursing Progress Note Filed: 09/18/2019 9:57 AM Note Text: Nursing Progress Note Topic of Note: Daily Note Jorge Davis [id number] Pre op done. INR 4.3. Repeat in [...] note was completed by: Arlene Chowdhury RN [facility] Protimeon 09-18-2019 PT Coag (PPP) [Time] 51.3 s High 9.7-13.0 [facility] Comment on above: Performed By: #### P T #### [place] [address] PT Coag (PPP) [Time] 5.0 s High 0.9-1.3 [facility] Comment on above: Result Comment: Ashlie min K Antagonist (VKA) Therapeutic Range: INR 2 to 3 (Target INR of 2.5) Note: For patients treated with VKA drugs, such as warfarin, the [place] [employer] 2012 Guideline recommends [...] Chest 2012, 141:7S-47S Karen RA, et al. [facility] 2017, 70: 252-289 Performed By: #### P T #### [facility] [address] [place] [address] Type and Screenon 09-18-2019 ABO/RH(D) Positive Normal [facility] Comment on above: Performed By: #### T SCR ####[facility] [place], [place] [phone] HOSPon 06-17-2019 HOSP Patient:Jorge Davis MRN: Height:5' [...] [E78.5] Atrial fibrillation (HCC) [I48.91] Atherosclerosis of [place] coronary artery of [place] heart without angina pectoris [I25.10] Diabetes mellitus type 2, controlled, without complications (HCC) [E11.9] Persistent atrial fibrillation (HCC) [I48.19] Paroxysmal atrial fibrillation (HCC) [I48.0] Paroxysmal atrial flutter (HCC) [I48.92] Allergies: No Known Allergies Date Verified:09/11/19 Lab Values Lab Value Units Date High Low POTA* 4.3 mmol/L 09/11/2019 5.1 3.7 FISH* 50.1 % 09/11/2019 51.0 39.0 Progress Notes ([facility]): RT Chava 09/11/2019 3:23 PM Signed Radiology [...] 11, 2019 3:22 PM Progress Notes ([facility]): Venkat Evans MD 09/11/2019 2:16 PM Signed [place]: [place] [id number] [facility] [address] Primary Care Physician: Declan Swanson MD Jorge Davis is a 74 year old male that presents today for evaluation of NON OBS Coronary artery disease involving [place] coronary artery of [place] heart without angina pectoris Paroxysmal A-fib (HCC) [...] this pm 2. Coronary artery disease involving [place] coronary artery of [place] heart without angina pectoris - ICD9: 414.01, [...] ?ms QTC Calculation(Bazett) : 457 ?ms R Grace : 0 ?degrees T Grace : 49 ?degrees PAST MEDICAL HISTORY Diagnosis [...] DRILLING 2005 - PAST SURGICAL HISTORY OF 1975 Fistulotomy - PAST SURGICAL HISTORY OF Partial Medial Menisectomy Bilateral Knee - PAST SURGICAL HISTORY OF 1991 Acrominoplasty Right Shoulder - PAST SURGICAL HISTORY OF Bilateral Club Foot Surgery - PAST SURGICAL HISTORY OF 2009 Anthroscopy Left Shoulder - PAST SURGICAL HISTORY OF 2010 Revision Left Knee - PAST SURGICAL HISTORY OF minor hand surgery - [place] ANESTH,TOTAL KNEE ARTHROPLASTY 2006 Right Knee - [...] 69 Venkat Evans MD Previous Version Normal [facility] Vital Signs Date Time Vital Sign Value Performing Clinician Facility 09-06-2024 08:23-0400 Body height 165.1 cm [employer] Work Phone: [facility] 09-06-2024 08:23-0400 Body mass index (BMI) [Ratio] 44.9 kg/m2 [employer] DO Work Phone: [facility] 09-06-2024 08:23-0400 Body weight 122.58 kg [employer] DO Work Phone: [facility] 09-06-2024 08:23-0400 Diastolic blood pressure 77 mm[Hg] [employer] Work Phone: [facility] 09-06-2024 08:23-0400 Heart rate 53 /min Declan Ball DO Work Phone: [facility] 09-06-2024 08:23-0400 Respiratory rate 12 /min Declan Ball DO Work Phone: [facility] 09-06-2024 08:23-0400 SaO2% (BldA) [Mass fraction] 98 % Declan Ball DO Work Phone: [facility] 09-06-2024 08:23-0400 Systolic blood pressure 134 mm[Hg] Declan Ball DO Work Phone: [facility] 09-02-2024 11:31-0400 Body height 165.1 cm Christopher Trevizo DPM Work Phone: [facility] 09-02-2024 11:31-0400 Body mass index (BMI) [Ratio] 42.93 kg/m2 Christopher Trevizo DPM Work Phone: [facility] 09-02-2024 11:31-0400 Body weight 117.03 kg Christopher Trevizo DPM Work Phone: [facility] 09-02-2024 11:31-0400 Respiratory rate 18 /min Christopher Trevizo DPM Work Phone: [facility] 07-31-2024 13:05-0400 Body height 167.64 cm Declan Ball DO Work Phone: [facility] 07-31-2024 13:05-0400 Body mass index (BMI) [Ratio] 43 kg/m2 Declan Ball DO Work Phone: [facility] 07-31-2024 13:05-0400 Body weight 121.1 kg Declan Ball DO Work Phone: [facility] 07-31-2024 13:05-0400 Diastolic blood pressure 72 mm[Hg] Declan Ball DO Work Phone: [facility] 07-31-2024 13:05-0400 Heart rate 80 /min Declan Ball DO Work Phone: [facility] 07-31-2024 13:05-0400 Respiratory rate 16 /min Declan Ball DO Work Phone: [facility] 07-31-2024 13:05-0400 SaO2% (BldA) [Mass fraction] 97 % Declan Ball DO Work Phone: [facility] 07-31-2024 13:05-0400 Systolic blood pressure 138 mm[Hg] Declan Ball DO Work Phone: [facility] 06-12-2024 09:07-0400 Body height 167.64 cm Declan Ball DO Work Phone: [facility] 06-12-2024 09:07-0400 Body mass index (BMI) [Ratio] 43.4 kg/m2 Declan Ball DO Work Phone: [facility] 06-12-2024 09:07-0400 Body weight 122.01 kg Declan Ball DO Work Phone: [facility] 06-12-2024 09:07-0400 Diastolic blood pressure 73 mm[Hg] Declan Ball DO Work Phone: [facility] 06-12-2024 09:07-0400 Heart rate 69 /min Declan Ball DO Work Phone: [facility] 06-12-2024 09:07-0400 Respiratory rate 12 /min Declan Ball DO Work Phone: [facility] 06-12-2024 09:07-0400 SaO2% (BldA) [Mass fraction] 98 % Declan Ball DO Work Phone: [facility] 06-12-2024 09:07-0400 Systolic blood pressure 146 mm[Hg] Declan Ball DO Work Phone: [facility] 05-07-2024 10:06-0500 Body height 167.64 cm Declan Ball DO Work Phone: [facility] 05-07-2024 10:06-0500 Body mass index (BMI) [Ratio] 41.6 kg/m2 Declan Ball DO Work Phone: [facility] 05-07-2024 10:06-0500 Body weight 117.14 kg Declan Ball DO Work Phone: [facility] 05-07-2024 10:06-0500 Diastolic blood pressure 80 mm[Hg] Declan Ball DO Work Phone: [facility] 05-07-2024 10:06-0500 Heart rate 82 /min Declan Ball DO Work Phone: [facility] 05-07-2024 10:06-0500 Respiratory rate 12 /min Declan Ball DO Work Phone: [facility] 05-07-2024 10:06-0500 SaO2% (BldA) [Mass fraction] 98 % Declan Ball DO Work Phone: [facility] 05-07-2024 10:06-0500 Systolic blood pressure 127 mm[Hg] Declan Ball DO Work Phone: [facility] 02-22-2024 09:59-0500 Body height 167.64 cm Declan Ball DO Work Phone: [facility] 02-22-2024 09:59-0500 Body mass index (BMI) [Ratio] 42.1 kg/m2 Declan Ball DO Work Phone: [facility] 02-22-2024 09:59-0500 Body weight 118.38 kg Declan Ball DO Work Phone: [facility] 02-22-2024 09:59-0500 Diastolic blood pressure 62 mm[Hg] Declan Ball DO Work Phone: [facility] 02-22-2024 09:59-0500 Heart rate 62 /min Declan Ball DO Work Phone: [facility] 02-22-2024 09:59-0500 SaO2% (BldA) [Mass fraction] 98 % Declan Ball DO Work Phone: [facility] 02-22-2024 09:59-0500 Systolic blood pressure 128 mm[Hg] Declan Swanson DO Work Phone: [facility] 02-13-2024 12:58-0500 Body mass index (BMI) [Ratio] 44.1 kg/m2 Alix Barrios ASSEMBLING FABRICATOR.FLEET ADMINISTRATOR Work Phone: [facility] 02-13-2024 12:58-0500 Body weight 120.2 kg Alix Barrios ASSEMBLING FABRICATOR.FLEET ADMINISTRATOR Work Phone: [facility] 02-13-2024 12:58-0500 Diastolic blood pressure 68 mm[Hg] Alix Barrios ASSEMBLING FABRICATOR.FLEET ADMINISTRATOR Work Phone: [facility] 02-13-2024 12:58-0500 Heart rate 66 /min Alix Barrios ASSEMBLING FABRICATOR.FLEET ADMINISTRATOR Work Phone: [facility] 02-13-2024 12:58-0500 SaO2% (BldA) [Mass fraction] 96 % Alix Barrios ASSEMBLING FABRICATOR.FLEET ADMINISTRATOR Work Phone: [facility] 02-13-2024 12:58-0500 Systolic blood pressure 134 mm[Hg] Alix Barrios ASSEMBLING FABRICATOR.FLEET ADMINISTRATOR Work Phone: [facility] 12-18-2023 10:49-0400 Body height 167.64 cm [facility] 12-18-2023 10:49-0400 Body mass index (BMI) [Ratio] 41.6 kg/m2 [facility] 12-18-2023 10:49-0400 Body weight 117.02 kg [facility] 12-18-2023 10:49-0400 Diastolic blood pressure 83 mm[Hg] [facility] 12-18-2023 10:49-0400 Heart rate 76 /min [facility] 12-18-2023 10:49-0400 Respiratory rate 76 /min [facility] 12-18-2023 10:49-0400 Systolic blood pressure 151 mm[Hg] [facility] 12-08-2023 11:03-0400 Body mass index (BMI) [Ratio] 43.43 kg/m2 Venkat Emanuel MD Work Phone: [facility] 12-08-2023 11:03-0400 Body weight 118.39 kg Venkat Emanuel MD Work Phone: [facility] 12-08-2023 11:03-0400 Diastolic blood pressure 80 mm[Hg] Venkat Emanuel MD Work Phone: [facility] 12-08-2023 11:03-0400 Heart rate 88 /min Venkat Emanuel MD Work Phone: [facility] 12-08-2023 11:03-0400 SaO2% (BldA) [Mass fraction] 97 % Venkat Emanuel MD Work Phone: [facility] 12-08-2023 11:03-0400 Systolic blood pressure 142 mm[Hg] Venkat Emanuel MD Work Phone: [facility] 08-21-2023 11:37-0400 Body height 167.64 cm [facility] 08-21-2023 11:37-0400 Body mass index (BMI) [Ratio] 41.3 kg/m2 [facility] 08-21-2023 11:37-0400 Body weight 116.28 kg [facility] 08-21-2023 11:37-0400 Diastolic blood pressure 77 mm[Hg] [facility] 08-21-2023 11:37-0400 Heart rate 85 /min [facility] 08-21-2023 11:37-0400 Respiratory rate 12 /min [facility] 08-21-2023 11:37-0400 Systolic blood pressure 128 mm[Hg] [facility] 08-09-2023 13:44-0400 Body height 167.64 cm [facility] 08-09-2023 13:44-0400 Body mass index (BMI) [Ratio] 42.1 kg/m2 [facility] 08-09-2023 13:44-0400 Body weight 118.38 kg [facility] 08-09-2023 13:44-0400 Diastolic blood pressure 76 mm[Hg] [facility] 08-09-2023 13:44-0400 Heart rate 85 /min [facility] 08-09-2023 13:44-0400 Respiratory rate 16 /min [facility] 08-09-2023 13:44-0400 Systolic blood pressure 136 mm[Hg] [facility] 07-04-2023 08:58-0400 Body height 165.1 cm Shama Ibanez PA-C Work Phone: [facility] 07-04-2023 08:58-0400 Body mass index (BMI) [Ratio] 44.5 kg/m2 Shama Ibanez PA-C Work Phone: [facility] 07-04-2023 08:58-0400 Body weight 121.3 kg Shama Ibanez PA-C Work Phone: [facility] 07-04-2023 08:58-0400 Diastolic blood pressure 78 mm[Hg] Shama VEGA-C Work Phone: [facility] 07-04-2023 08:58-0400 Heart rate 80 /min Shama Ibanez PA-C Work Phone: [facility] 07-04-2023 08:58-0400 Systolic blood pressure 146 mm[Hg] Shama Ibanez PA-C Work Phone: [facility] 06-05-2023 13:48-0400 Body weight 120.2 kg Venkat Emanuel MD Work Phone: [facility] 06-05-2023 13:48-0400 Diastolic blood pressure 78 mm[Hg] Venkat Emanuel MD Work Phone: [facility] 06-05-2023 13:48-0400 Heart rate 74 /min Venkat Emanuel MD Work Phone: [facility] 06-05-2023 13:48-0400 Systolic blood pressure 124 mm[Hg] Venkat Emanuel MD Work Phone: [facility] 03-23-2023 11:00-0500 Body height 167.64 cm Declan Swanson Other [facility] Other 03-23-2023 11:00-0500 Body mass index (BMI) [Ratio] 43.15 kg/m2 Declan Ball Other [facility] Other 03-23-2023 11:00-0500 Body weight 121.29 kg Declan Ball Other [facility] Other 03-23-2023 11:00-0500 Diastolic blood pressure 89 mm[Hg] Declan Ball Other [facility] Other 03-23-2023 11:00-0500 Systolic blood pressure 142 mm[Hg] Declan Ball Other [facility] Other 01-03-2023 11:45-0400 Body height 167.64 cm Declan Ball Other [facility] Other 01-03-2023 11:45-0400 Body mass index (BMI) [Ratio] 42.57 kg/m2 Declan Ball Other [facility] Other 01-03-2023 11:45-0400 Body weight 119.66 kg Declan Ball Other [facility] Other 01-03-2023 11:45-0400 Diastolic blood pressure 78 mm[Hg] Declan Ball Other [facility] Other 01-03-2023 11:45-0400 Respiratory rate 16 /min Declan Ball Other [facility] Other 01-03-2023 11:45-0400 Systolic blood pressure 128 mm[Hg] Declan Ball Other [facility] Other 12-14-2022 11:30-0400 Body height 167.64 cm Declan Ball Other [facility] Other 12-14-2022 11:30-0400 Body mass index (BMI) [Ratio] 43.61 kg/m2 Declan Ball Other [facility] Other 12-14-2022 11:30-0400 Body weight 122.56 kg Declan Ball Other [facility] Other 12-14-2022 11:30-0400 Diastolic blood pressure 86 mm[Hg] Declan Ball Other [facility] Other 12-14-2022 11:30-0400 Respiratory rate 12 /min Declan Ball Other [facility] Other 12-14-2022 11:30-0400 Systolic blood pressure 141 mm[Hg] Declan Ball Other [facility] Other 12-13-2022 09:58-0400 Diastolic blood pressure 70 mm[Hg] DO Declan Ball Work Phone: [facility] 12-13-2022 09:58-0400 Heart rate 56 /min DO Declan Ball Work Phone: [facility] 12-13-2022 09:58-0400 Respiratory rate 16 /min DO Declan Ball Work Phone: [facility] 12-13-2022 09:58-0400 SaO2% (BldA) [Mass fraction] 95 % DO Declan Ball Work Phone: [facility] 12-13-2022 09:58-0400 Systolic blood pressure 149 mm[Hg] DO Declan Ball Work Phone: [facility] 12-13-2022 09:15-0400 Inhaled oxygen flow rate 3 L/min DO Declan Ball Work Phone: [facility] 12-13-2022 08:53-0400 Body height 157.48 cm DO Declan Ball Work Phone: [facility] 12-13-2022 08:53-0400 Body weight 120.2 kg DO Declan Ball Work Phone: [facility] 11-04-2022 14:45-0400 Body height 167.64 cm Declan Ball Other [facility] Other 11-04-2022 14:45-0400 Body mass index (BMI) [Ratio] 43.64 kg/m2 Declan Ball Other [facility] Other 11-04-2022 14:45-0400 Body weight 122.65 kg Declan Ball Other [facility] Other 11-04-2022 14:45-0400 Diastolic blood pressure 87 mm[Hg] Declan Ball Other [facility] Other 11-04-2022 14:45-0400 Respiratory rate 16 /min Declan Ball Other [facility] Other 11-04-2022 14:45-0400 Systolic blood pressure 148 mm[Hg] Declan Ball Other [facility] Other 10-13-2022 11:00-0400 Body height 167.64 cm Declan Ball Other [facility] Other 10-13-2022 11:00-0400 Body mass index (BMI) [Ratio] 43.41 kg/m2 Declan Ball Other [facility] Other 10-13-2022 11:00-0400 Body weight 122.02 kg Declan Ball Other [facility] Other 10-13-2022 11:00-0400 Diastolic blood pressure 75 mm[Hg] Declan Ball Other [facility] Other 10-13-2022 11:00-0400 Respiratory rate 16 /min Declan Ball Other [facility] Other 10-13-2022 11:00-0400 Systolic blood pressure 132 mm[Hg] Declan Ball Other [facility] Other 09-15-2022 09:15-0400 Body height 167.64 cm Declan Ball Other [facility] Other 09-15-2022 09:15-0400 Body mass index (BMI) [Ratio] 43.22 kg/m2 Declan Ball Other [facility] Other 09-15-2022 09:15-0400 Body weight 121.47 kg Declan Ball Other [facility] Other 09-15-2022 09:15-0400 Diastolic blood pressure 81 mm[Hg] Declan Ball Other [facility] Other 09-15-2022 09:15-0400 Respiratory rate 12 /min Declan Ball Other [facility] Other 09-15-2022 09:15-0400 Systolic blood pressure 139 mm[Hg] Declan Ball Other [facility] Other 08-16-2022 11:30-0400 Body height 167.64 cm Declan Ball Other [facility] Other 08-16-2022 11:30-0400 Body mass index (BMI) [Ratio] 43.19 kg/m2 Declan Ball Other [facility] Other 08-16-2022 11:30-0400 Body weight 121.38 kg Declan Ball Other [facility] Other 08-16-2022 11:30-0400 Diastolic blood pressure 73 mm[Hg] Declan Ball Other [facility] Other 08-16-2022 11:30-0400 Respiratory rate 12 /min Declan Ball Other [facility] Other 08-16-2022 11:30-0400 Systolic blood pressure 124 mm[Hg] Declan Ball Other [facility] Other 06-24-2022 14:14-0400 Body height 165.1 cm Ruben Denton MD Work Phone: [facility] 06-24-2022 14:14-0400 Body weight 122.02 kg Ruben Denton MD Work Phone: [facility] 06-24-2022 14:14-0400 Diastolic blood pressure 82 mm[Hg] Ruben Denton MD Work Phone: [facility] 06-24-2022 14:14-0400 Heart rate 69 /min Ruben Denton MD Work Phone: [facility] 06-24-2022 14:14-0400 Systolic blood pressure 155 mm[Hg] Ruben Denton MD Work Phone: [facility] 05-16-2022 11:30-0500 Body height 167.64 cm Declan Ball Other [facility] Other 05-16-2022 11:30-0500 Body mass index (BMI) [Ratio] 44.87 kg/m2 Declan Ball Other [facility] Other 05-16-2022 11:30-0500 Body weight 126.1 kg Declan Ball Other [facility] Other 05-16-2022 11:30-0500 Diastolic blood pressure 82 mm[Hg] Declan Ball Other [facility] Other 05-16-2022 11:30-0500 Respiratory rate 12 /min Declan Ball Other [facility] Other 05-16-2022 11:30-0500 SaO2% (BldA) [Mass fraction] 97 % Declan Ball Other [facility] Other 05-16-2022 11:30-0500 Systolic blood pressure 122 mm[Hg] Declan Ball Other [facility] Other 03-22-2022 09:30-0500 Body height 167.64 cm Declan Ball Other [facility] Other 03-22-2022 09:30-0500 Body mass index (BMI) [Ratio] 44.41 kg/m2 Declan Ball Other [facility] Other 03-22-2022 09:30-0500 Body weight 124.83 kg Declan Ball Other [facility] Other 03-22-2022 09:30-0500 Diastolic blood pressure 82 mm[Hg] Declan Ball Other [facility] Other 03-22-2022 09:30-0500 Respiratory rate 20 /min Declan Ball Other [facility] Other 03-22-2022 09:30-0500 Systolic blood pressure 122 mm[Hg] Declan Ball Other [facility] Other 12-31-2021 13:06-0400 Body weight 122.02 kg Venkat Emanuel MD Work Phone: [facility] 12-31-2021 13:06-0400 Diastolic blood pressure 70 mm[Hg] Venkat Emanuel MD Work Phone: [facility] 12-31-2021 13:06-0400 Heart rate 84 /min Venkat Emanuel MD Work Phone: [facility] 12-31-2021 13:06-0400 SaO2% (BldA) [Mass fraction] 97 % Venkat Emanuel MD Work Phone: [facility] 12-31-2021 13:06-0400 Systolic blood pressure 110 mm[Hg] Venkat Emanuel MD Work Phone: [facility] 06-25-2021 13:14-0400 Body height 165.1 cm Ruben Denton MD Work Phone: [facility] 06-25-2021 13:14-0400 Body weight 124.74 kg Ruben Denton MD Work Phone: [facility] 06-25-2021 13:14-0400 Diastolic blood pressure 80 mm[Hg] Ruben Denton MD Work Phone: [facility] 06-25-2021 13:14-0400 Heart rate 69 /min Ruben Denton MD Work Phone: [facility] 06-25-2021 13:14-0400 Systolic blood pressure 132 mm[Hg] Ruben Denton MD Work Phone: [facility] 05-20-2021 10:00-0500 Body height 167.64 cm Bruce Shine II Other [facility] Other 05-20-2021 10:00-0500 Body mass index (BMI) [Ratio] 43.9 kg/m2 Bruce Shine II Other [facility] Other 05-20-2021 10:00-0500 Body weight 123.38 kg Bruce Shine II Other [facility] Other Encounters Encounter Date Encounter Type Care Provider Facility Start: 09-10-2024 End: 09-10-2024 Office outpatient visit 15 minutes John Churchill DO Work Phone: [facility] Comment on above: Dry eyes (Primary Dx ); Blepharitis of upper and lower eyelids of both eyes, unspecified type Start: 09-10-2024 End: 09-10-2024 ambulatory JOHN CHURCHILL Not Available Start: 09-10-2024 End: 09-10-2024 Bamboo flowsheet John Churchill DO Work Phone: [facility] Start: 09-10-2024 End: 09-10-2024 Bamboo flowsheet John Churchill DO Work Phone: [facility] Start: 09-06-2024 End: 09-06-2024 ambulatory Declan Swanson DO Work Phone: [facility] Work Phone: Start: 09-06-2024 End: 09-06-2024 Patient encounter procedure Declan Swanson DO -[facility] Work Phone: Start: 09-02-2024 End: 09-02-2024 Bamboo flowsheet Christopher Trevizo DPM Work Phone: [facility] Start: 09-02-2024 End: 09-02-2024 Bamboo flowsheet Christopher Trevizo DPM Work Phone: [facility] Start: 09-02-2024 End: 09-02-2024 ambulatory CHRISTOPHER TREVIZO Not Available Start: 09-02-2024 End: 09-02-2024 Office outpatient visit 15 minutes Christopher Trevizo DPM Work Phone: [facility] Comment on above: Venous insufficiency (Primary Dx); Pain due to onychomycosis of toenails of both feet Start: 07-31-2024 End: 07-31-2024 ambulatory Yvan Mercedes Facility:[facility] Start: 07-31-2024 End: 07-31-2024 Patient encounter procedure Declan Ball DO Work Phone: [facility] Work Phone: Start: 06-26-2024 End: 07-11-2024 Telephone encounter Ruben Denton MD Work Phone: Cardiology Start: 06-15-2024 Non-patient / Non-visit Benjam in Ball DO Work Phone: [facility] Work Phone: Start: 06-12-2024 End: 06-12-2024 ambulatory Declan Ball DO Work Phone: [facility] Work Phone: Start: 06-12-2024 End: 06-12-2024 Patient encounter procedure Declan Ball DO Work Phone: [facility] Work Phone: Start: 05-07-2024 End: 05-07-2024 ambulatory Declan Ball DO Work Phone: [facility] Work Phone: Start: 05-07-2024 End: 05-07-2024 Patient encounter procedure Declan Ball DO Work Phone: [facility] Work Phone: Start: 05-01-2024 End: 07-11-2024 Telephone encounter Ruben Denton MD Work Phone: Cardiology Start: 04-23-2024 End: 04-23-2024 ambulatory Declan Ball DO Work Phone: [facility] Work Phone: Start: 04-23-2024 End: 04-23-2024 Patient encounter procedure Declan Ball DO Work Phone: [facility] Work Phone: Start: 04-03-2024 End: 04-05-2024 Telephone encounter Ruben Denton MD Work Phone: Cardiology Comment on above: Results (INR) Start: 02-22-2024 End: 02-22-2024 Patient encounter procedure Declan Swanson DO Work Phone: [facility] Work Phone: Start: 02-21-2024 End: 02-21-2024 Telephone encounter Ruben Denton MD Work Phone: Cardiology Comment on above: Results (labs) Start: 02-21-2024 Non-patient / Non-visit Benjam in Kiki DO Work Phone: [facility] Work Phone: Start: 02-13-2024 End: 02-13-2024 Patient encounter procedure Alix Barrios APRN.FLEET ADMINISTRATOR Work Phone: Cardiology Comment on above: Primary hypertension (Primary Dx); Atherosclerosis of [place] coronary artery of [place] heart without angina pectoris; Atrial fibrillation, persistent (HCC); Chronic diastolic heart failure (HCC); Mixed hyperlipidemia Start: 02-13-2024 Non-patient / Non-visit Benjam in Kiki DO Work Phone: [facility] Work Phone: Start: 02-13-2024 End: 02-13-2024 ambulatory VENKAT EVANS [facility] Start: 02-07-2024 End: 02-09-2024 Telephone encounter Ruben Denton MD Work Phone: Cardiology Comment on above: Results Start: 01-24-2024 End: 01-24-2024 Telephone encounter Ruben Denton MD Work Phone: Cardiology Start: 12-19-2023 End: 12-19-2023 Telephone encounter Venkat Evans MD Work Phone: Cardiology Start: 12-18-2023 End: 12-18-2023 ambulatory [facility] Work Phone: Start: 12-18-2023 End: 12-18-2023 Patient encounter procedure [facility] Work Phone: Start: 12-18-2023 Non-patient / Non-visit [facility] Work Phone: Start: 12-12-2023 End: 12-12-2023 Telephone encounter Ruben Denton MD Work Phone: Cardiology Comment on above: Received Outside Med ical Records Start: 12-08-2023 Non-patient / Non-visit [facility] Work Phone: Start: 12-08-2023 End: 12-08-2023 ambulatory [facility] Facility:[facility] Start: 12-08-2023 End: 12-08-2023 Office outpatient visit 25 minutes Venkat Evans MD Work Phone: Cardiology Comment on above: Chronic diastolic he art failure (HCC) (Primary Dx); Atrial fibrillation, persistent (HCC); Obesity, Class III, 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); Mixed hyperlipidemia; Coronary artery disease involving [place] coronary artery of [place] heart without angina pectoris Start: 12-08-2023 End: 12-08-2023 ambulatory [facility] Facility:[facility] Start: 12-07-2023 Non-patient / Non-visit [facility] Work Phone: Start: 12-06-2023 Non-patient / Non-visit [facility] Work Phone: Start: 12-05-2023 Non-patient / Non-visit [facility] Work Phone: Start: 11-15-2023 End: 11-15-2023 Telephone encounter Ruben Denton MD Work Phone: Cardiology Comment on above: Received Outside Med ical Records Start: 10-03-2023 End: 10-03-2023 ambulatory JOHN CHURCHILL Not Available Start: 09-19-2023 Telephone encounter Ruben murillo MD Work Phone: Cardiology Comment on above: Received Outside Med ical Records Start: 08-22-2023 Telephone encounter Ruben murillo MD Work Phone: Cardiology Comment on above: Received Outside Med ical Records Start: 08-21-2023 End: 08-21-2023 [facility] Work Phone: Start: 08-21-2023 End: 08-21-2023 Patient encounter procedure [facility] Work Phone: Start: 08-09-2023 End: 08-09-2023 [facility] Work Phone: Start: 08-09-2023 End: 08-09-2023 Patient encounter procedure [facility] Work Phone: Start: 07-25-2023 Telephone encounter Ruben murillo MD Work Phone: Cardiology Comment on above: Received Outside Med ical Records (INR) Start: 07-04-2023 End: 07-04-2023 Patient encounter procedure Shama Ibanez PA-C Work Phone: Cardiology Comment on above: Atrial fibrillation, persistent (HCC) (Primary Dx); S/P ablation of atrial fibrillation; On continuous oral anticoagulation Start: 06-27-2023 Telephone encounter Ruben murillo MD Work Phone: Cardiology Comment on above: Received Outside Med ical Records Start: 06-23-2023 End: 06-23-2023 [facility] Work Phone: Start: 06-23-2023 End: 06-23-2023 Patient encounter procedure [facility] Work Phone: Start: 06-05-2023 End: 06-05-2023 Patient encounter procedure [...] 04/04/2023) Start: 03-23-2023 End: 03-23-2023 ambulatory Declan Ball Other [facility] Other Start: 03-23-2023 Office outpatient vi sit 15 minutes Declan [facility] Start: 02-07-2023 Telephone encounter Ruebn murillo MD Work Phone: Cardiology Comment on [...] 12/27/2022) Start: 01-03-2023 End: 01-03-2023 ambulatory Declan Ball Other [facility] Other Start: 01-03-2023 Office outpatient vi sit 15 minutes Declan Ball [facility] Start: 01-03-2023 Telephone encounter Declan Kiki [facility] Start: 01-02-2023 End: 01-02-2023 ambulatory Declan Ball Other [facility] Other Start: 01-02-2023 Office outpatient vi sit 15 minutes Declan Ball [facility] Start: 12-23-2022 Telephone encounter Ruben murillo MD Work Phone: Cardiology Comment on above: Received Outside Med ical Records Start: 12-20-2022 End: 12-20-2022 ambulatory Ruben Celis Other [facility] Other Start: 12-20-2022 Office outpatient vi sit 15 minutes Ruben Celis [facility] [place] Start: 12-14-2022 End: 12-14-2022 ambulatory Declan Swanson Other [facility] Other Start: 12-14-2022 Office outpatient vi sit 25 minutes Declan [facility] Start: 12-13-2022 (Procedure) Short Ruben Celis [facility] Start: 12-13-2022 End: 12-13-2022 Admission to same day surgery center DO Declan Ball Work Phone: [facility] Work Phone: Start: 12-13-2022 End: 12-13-2022 ambulatory DO Declan Ball Work Phone: [facility] Work Phone: Start: 11-24-2022 End: 11-24-2022 Patient encounter procedure DO Declan Ball Work Phone: [facility] [address] Work Phone: Start: 11-24-2022 End: 11-24-2022 ambulatory DO Declan Ball Work Phone: [facility] Work Phone: Start: 11-24-2022 Telephone encounter Declan [facility] Start: 11-04-2022 End: 11-04-2022 ambulatory Declan Ball Other [facility] Other Start: 11-04-2022 Office outpatient vi sit 15 minutes Declan Ball [facility] Start: 11-04-2022 Telephone encounter Declan Ball [facility] Start: 10-28-2022 Telephone encounter Ruben murillo MD Work Phone: Cardiology Comment on above: Received Outside Med ical Records Start: 10-26-2022 End: 10-26-2022 ambulatory Ruben Celis Other [facility] Other Start: 10-26-2022 Office outpatient vi sit 25 minutes Ruben Celis [facility] [place] Start: 10-24-2022 End: 10-24-2022 ambulatory Declan Swanson Other [facility] Other Start: 10-24-2022 Telephone encounter Declan Swanson [facility] Start: 10-13-2022 End: 10-13-2022 ambulatory Declan Swanson Other [facility] Other Start: 10-13-2022 Office outpatient vi sit 15 minutes Declan Swanson [facility] Start: 10-13-2022 Telephone encounter Ruben murillo MD Work Phone: Cardiology Comment on above: Received Outside Med ical Records Start: 10-12-2022 Office outpatient vi sit 25 minutes Bruce Shine II [facility] Start: 10-12-2022 End: 10-12-2022 ambulatory DO Declan Swanson Work Phone: [facility] Work Phone: Start: 10-12-2022 End: 10-12-2022 Patient encounter procedure DO Declan Swanson Work Phone: [facility] Start: 09-16-2022 Telephone encounter Ruben murillo MD Work Phone: Cardiology Comment on above: Received Outside Med ical Records (INR Report) Start: 09-15-2022 End: 09-15-2022 ambulatory Declan Swanson Other [facility] Other Start: 09-15-2022 Office outpatient vi sit 15 minutes Declan Swanson [facility] Start: 09-07-2022 Telephone encounter Venkat gomez MD Work Phone: Cardiology Comment on above: Results Start: 09-01-2022 Telephone encounter Ruben murillo MD Work Phone: Cardiology Comment on above: Received Outside [employer] Records Start: 08-31-2022 End: 08-31-2022 ambulatory Declan Swanson Other [facility] Other Start: 08-31-2022 Telephone encounter Declan Swanson [facility] Start: 08-29-2022 End: 08-29-2022 ambulatory Declan Swanson Other [facility] Other Start: 08-29-2022 Telephone encounter Declan Swanson [facility] Start: 08-16-2022 End: 08-16-2022 ambulatory Declan Swanson Other [facility] Other Start: 08-16-2022 Patient encounter procedure Declan Swanson [facility] Start: 08-16-2022 Telephone encounter Declan BRYAN [facility] Start: 07-21-2022 Telephone encounter Ruben murillo MD Work Phone: Cardiology Comment on above: Received Outside [employer] [facility] Start: 07-14-2022 Telephone encounter Venkat gomez MD Work Phone: Cardiology Comment on above: Results Start: 07-11-2022 End: 08-10-2022 ambulatory SHAIKH Julianne MORALES Facility: Start: 06-27-2022 End: 06-27-2022 ambulatory Bruce Shien II Other [facility] Other Start: 06-27-2022 Telephone encounter Ruben murillo [...] Class III, BMI >= 40; Atherosclerosis of [place] coronary artery of [place] heart without angina pectoris Start: 06-23-2022 Telephone encounter Ruben murillo MD Work Phone: Cardiology Comment on above: Received Outside Med ical Records Start: 06-13-2022 End: 07-08-2022 ambulatory SHAIKH Julianne MORALES Facility:[facility] Start: 05-27-2022 Telephone encounter Ruben murillo MD Work Phone: Cardiology Comment on above: Received Outside Med ical Records Start: 05-16-2022 End: 05-17-[address] DECLAN SWANSON [facility] Other Start: 05-16-2022 Office outpatient vi sit 25 minutes Declan Swanson [facility] Start: 05-11-2022 End: 06-10-[address] DECLAN SWANSON Facility:[facility] Start: 04-27-2022 End: 04-27-2022 ambulatory Declan Swanson Other [facility] Other Start: 04-27-2022 Telephone encounter Declan BRYAN [facility] Start: 04-13-2022 End: 05-11-[address] DECLAN SWANSON Facility:[facility] Start: 03-22-2022 End: 03-22-2022 ambulatory Declan Swanson Other [facility] Other Start: 03-22-2022 Office outpatient vi sit 15 minutes Declan Swanson [facility] Start: 03-22-2022 Telephone encounter Declan BRYAN G [facility] Start: 03-21-2022 End: 03-21-2022 ambulatory Declan Swanson Other [facility] Other Start: 03-21-2022 Telephone encounter Declan BRYAN G [facility] Start: 03-14-2022 End: 04-13-2022 ambulatory SHAIKH Julianne MORALES Facility:H1 Start: 03-10-2022 Telephone encounter Ruben murillo MD Work Phone: Cardiology Comment on above: Received Outside Med ical Records Start: 02-28-2022 End: 03-01-[address] DECLAN SWANSON Facility:H1 Start: 02-22-2022 End: 02-23-[address] DECLAN SWANSON Facility:H1 Start: 02-16-2022 End: 02-17-[address] DECLAN SWANSON Facility:H1 Start: 02-10-2022 End: 03-13-2022 ambulatory [facility] Julianne JOSE ALBERTO Facility:H1 Start: 02-01-2022 Telephone encounter Ruben murillo MD Work Phone: Cardiology Comment on above: Received Outside Med ical Records Start: 01-20-2022 Telephone encounter Bobby powers MD Work Phone: Cardiology Comment on above: Received Outside Med ical Records Start: 01-18-2022 Telephone encounter Ruben murillo MD Work Phone: Cardiology Comment on above: Received Outside Med ical Records Start: 01-11-2022 End: 02-09-2022 ambulatory PIERRE Julianne MORALES Facility:H1 Start: 01-05-2022 Telephone encounter [...] atrial fibrillation (HCC); Coronary artery disease involving [place] coronary artery of [place] heart without angina pectoris; Controlled type 2 diabetes mellitus without complication, without long-term current use of insulin (HCC) Start: 12-21-2021 Telephone encounter Ruben murillo MD Work Phone: Cardiology Comment on above: Received Outside Med ical Records Start: 12-12-2021 End: 01-10-2022 ambulatory [facility] T[facility] Facility:H1 Start: 12-07-2021 Telephone encounter Ruben murillo MD Work Phone: Cardiology Comment on above: Received Outside Med ical Records Start: 11-11-2021 End: 12-11-2021 ambulatory PIERRE H JOSE ALBERTO Facility:H1 Start: 10-11-2021 End: 11-10-2021 ambulatory SHAIKH [...] (HCC); CHRISTIAN (obstructive sleep apnea); Atherosclerosis of [place] coronary artery of [place] heart without angina pectoris; Encounter for current [...] End: 05-20-2021 ambulatory Bruce Shine II Other [facility] Other Start: 05-20-2021 Office outpatient ne w 45 minutes Bruce Shine II [facility] Start: 04-21-2021 Telephone encounter Ruben murillo MD Work Phone: Cardiology Comment on above: Results (PT INR ) Start: 12-29-2020 Adult health examination Kali Swanson Other [employer] Other Procedures Date Procedure Procedure Detail Performing [...] lumbar spine using fluoroscopic guidance DO Declan Publons Work Phone: Start: 11-24-2022 MR lumbar spine wo con DO Declan Publons Work Phone: Start: 11-24-2022 XR pre/post mri xray DO Declan Publons Work Phone: Start: 10-12-2022 Plain x-ray of pelvi s and lower extremity DO Declan Publons Work Phone: Start: 10-12-2022 X-ray of both knees DO Declan Publons Work Phone: Start: 10-23-2019 Antibody screen Comment on above: Performed By: #### T SCR ####[address] [phone] Start: 09-18-2019 Antibody screen Comment on above: Performed By: #### T SCR ####[address] [phone] Start: 12-10-2015 Screening for malign ant neoplasm of colon Declan Swanson Other Start: 06-03-2015 General examination of patient Declan Swanson Other Start: 11-04-2013 Screening for malign ant neoplasm of prostate Declan Swanson Other Depression screening Verenice Swanson Other Depression screening Verenice n Kiki Other H/O: artificial joint Bruce Taylor II Other History of operative procedure on knee Bruce Taylor II Other Screening for malign ant neoplasm of colon Bruce Rl II Other Screening for malign ant neoplasm of prostate Declan Swanson Other Plan of Treatment Date Care Activity Detail Author Start: 03-16-2033 Urine microalbumin profile DTa P,Tdap,Td Vaccine (2 - Td or Tdap) [facility] Start: 12-02-2024 End: 12-02-2024 Patient encounter procedure 12/02/2024 11:20 AM EDT Procedure Visit [facility] [address] [place] [phone] Christopher Trevizo, DEREK [address] [facility] [address] [place] [address] [facility] Start: 11-11-2024 Influenza vaccination Influenza Vacc ine (#1) [facility] Start: 09-10-2024 End: 09-10-2024 Patient encounter procedure 09/10/2024 2:30 PM EDT Office Visit [facility] [address] [place] [phone] Jhon Churchill DO [address] [place] [address] Arrived [facility] Comment on above: Arrived Start: 07-03-2024 Covid-19 Vaccine ( season) Covid-19 Vaccine ( season) [facility] Start: 06-21-2024 End: 06-21-2024 Patient encounter procedure 06/21/2024 11:30 AM EDT Office Visit Cardiology [address] [place] [address] Ruben Denton MD [address] [place] [address] [address] [place], [place] [phone] return in about 8 months (around 02/23/2023 Cardiology Comment on above: return in about 8 mo nths (around 02/23/2023 Start: 06-05-2024 End: 06-05-2024 Patient encounter procedure 06/05/2024 10:20 AM EDT Office Visit Cardiology [address] [place] [phone] [place] [address] [place] [address] Return in about 6 months (around 06/06/2024). Cardiology Comment on above: Return in about 6 mo nths (around 06/06/2024). Start: 06-04-2024 BP Controlled (<130/80) BP Con trolled (<130/80) [facility] Start: 04-23-2024 Plain X-ray of left hand XR hand LT min 3V* [facility] Start: 04-23-2024 XR Hand - left GE 3 Views [facility] Start: 03-13-2024 Advance Directive Discussion Advance Directive Discussion [facility] Start: 03-08-2024 End: 03-08-2024 Patient encounter procedure 03/08/2024 2:00 PM EST Office Visit Cardiology [address] [place] [address] Shama Ibanez PA-C [address] [place] [address] [place] in 4-8 weeks to followup Cardiology Comment on above: [place] in 4-8 weeks to followup Start: 02-13-2024 End: 02-13-2024 Patient encounter procedure 02/13/2024 1:00 PM EST Office Visit Cardiology [address] [place] [address] Alix Barrios APRN.FLEET ADMINISTRATOR [address] [place] [address] [place] in 4-8 weeks to followup Cardiology Comment on above: [place] in 4-8 weeks to followup Start: 12-08-2023 End: 12-08-2023 Patient encounter procedure Cardiology Comment on above: echo Return in about 6 mo nths (around 12/06/2023). Start: 12-06-2023 Acid Fast Culture Acid Fast Culture [facility] Start: 11-12-2023 Covid-19 Vaccine () Covid-19 Vaccine () [facility] Start: 11-12-2023 Covid-19 Vaccine () Covid-19 Vaccine () [facility] Start: 11-12-2023 Influenza vaccination C [facility] Start: 03-13-2023 Advance Directive Discussion Advance Directive Discussion [facility] Start: 03-13-2023 Behavioral Health Screening Behavioral Health Screening [facility] Start: 03-13-2023 Depression Assessment Depression Ass essment [facility] Start: 12-31-2022 BP CONTROLLED (<130/80) BP CON TROLLED (<130/80) [facility] Start: 12-13-2022 [facility] Start: 11-11-2022 Covid-19 Vaccine ( season) Covid-19 Vaccine () [facility] Start: 11-11-2022 Influenza vaccination C [facility] Start: 03-13-2022 ADVANCE DIRECTIVE DISCUSSION ADVANCE DIRECTIVE DISCUSSION [facility] Start: 03-13-2022 DEPRESSION ASSESSMENT DEPRESSION ASS ESSMENT [facility] Start: 11-11-2021 Influenza vaccination INFLUENZA (#1) [facility] Start: 09-18-2021 Hepatitis B surface antibody level LDL CHOLESTEROL [facility] Start: 06-25-2021 End: 08-25-2021 CBC panel - Blood by Automated count CBC Lab Routine Acute on chronic diastolic heart failure (HCC) Primary hypertension Expected: 06/25/2021, Expires: 08/25/2021 [facility] Work Phone: Comment on above: Expected: 06/25/2021 , Expires: 08/25/2021 Start: 06-25-2021 End: 08-25-2021 Comprehensive metabolic 2000 panel - Serum or Plasma COMP METABOLIC PANEL Lab Routine Acute on chronic diastolic heart failure (HCC) Primary hypertension Expected: 06/25/2021, Expires: 08/25/2021 [facility] Work Phone: Comment on above: Expected: 06/25/2021 , Expires: 08/25/2021 Start: 06-25-2021 End: 08-25-2021 LIPID PANEL BASIC LIPID PANEL BASIC Lab Routine Acute on chronic diastolic heart failure (HCC) Primary hypertension Expected: 06/25/2021, Expires: 08/25/2021 [facility] Work Phone: Comment on above: Expected: 06/25/2021 , Expires: 08/25/2021 Start: 05-20-2021 COVID-19 VACCINE (4 - Booster for Moderna series) COVID-19 VACCINE (4 - Booster for Moderna series) [facility] Start: 03-21-2021 Hemoglobin A1c measurement HbA1C [facility] Start: 03-21-2021 Hemoglobin A1c/Hemoglobin.total in Blood HBA1C [facility] Start: 03-17-2021 COVID-19 VACCINE (4 - Booster for Moderna series) COVID-19 VACCINE (4 - Booster for Moderna series) [facility] Start: 03-17-2021 COVID-19 VACCINE (4 - Moderna series) COVID-19 VACCINE (4 - Moderna series) [facility] Start: 03-13-2021 ADVANCE DIRECTIVE DISCUSSION ADVANCE DIRECTIVE DISCUSSION [facility] Start: 03-13-2021 DEPRESSION ASSESSMENT DEPRESSION ASS ESSMENT [facility] Start: 11-11-2020 Influenza vaccination INFLUENZA (#1) [facility] Start: 11-01-2020 COVID-19 VACCINE (3 - Booster for Moderna series) COVID-19 VACCINE (3 - Booster for Moderna series) [facility] Start: 01-17-2020 RSV Vaccine (1 - 1-d ose 75+ series) RSV Vaccine (1 - 1-dose 75+ series) [facility] Start: 11-09-2015 Pneumococcal Vaccine : 65+ (2 - PCV) Pneumococcal Vaccine: 65+ (2 - PCV) [facility] Start: 11-09-2015 Pneumococcal Vaccine : 65+ (2 of 2 - PCV) Pneumococcal Vaccine: 65+ (2 of 2 - PCV) [facility] Start: 11-09-2015 PNEUMOCOCCAL: 65+ (2 - PCV) PNEUMOCOCCAL: 65+ (2 - PCV) [facility] Start: 2010 ADVANCE DIRECTIVE DISCUSSION ADVANCE DIRECTIVE DISCUSSION [facility] Start: 2005 Hepatitis B Vaccine (1 of 3 - Risk 3-dose series) Hepatitis B Vaccine (1 of 3 - Risk 3-dose series) [facility] Start: 2005 RSV Vaccine (1 - 1-d ose 60+ series) RSV Vaccine (1 - 1-dose 60+ series) [facility] Start: 1995 SHINGRIX VACCINE (1 of 2) SHAH GRIX VACCINE (1 of 2) [facility] Start: 01-17-1964 Urine microalbumin profile [facility] Start: 1963 ANNUAL PCP TEAM CORRECTIONAL CORPORAL JOSEPH DISEASE VISIT ANNUAL PCP TEAM CHRONIC DISEASE VISIT [facility] Start: 1963 Anxiety Screening Anxiety Screening [facility] Start: 1963 BP CONTROLLED (<130/80) BP CON TROLLED (<130/80) [facility] Start: 1963 Depression Screening Depression Scre ening [facility] Start: 1963 HEPATITIS C SCREENING HEPATITIS C [facility] Start: 1963 Hepatitis C screening Hepatitis C [facility] Start: 1957 Adult depression scr eening assessment DEPRESSION SCREENING [facility] Start: 1955 3 comp foot exam completed DIABETIC FOOT EXAM [facility] Start: 1955 Diabetic foot examination Diabetic F oot Exam [facility] Start: 1955 Glaucoma screening Dilated Retinal E xam [facility] Start: 1955 Hepatitis B screening URINE ALBUMIN:CREATININE RATIO [facility] Start: 1955 Hepatitis C antibody , confirmatory test DILATED RETINAL EXAM [facility] Comprehensive metabo lic 1999 panel - Serum or Plasma [facility] Comprehensive metabo lic 1999 panel - Serum or Plasma [facility] End: 06-01-2022 ECG COMPLETE ECG COMPLETE ECG Routine Atrial fibrillation, persistent (HCC) 1 Occurrences starting 06/01/2021 until 06/01/2022 [facility] Work Phone: Comment on above: 1 Occurrences starti ng 06/01/2021 until 06/01/2022 End: 06-25-2022 ECG COMPLETE ECG COMPLETE ECG Routine Atrial fibrillation, persistent (HCC) 1 Occurrences starting 06/25/2021 until 06/25/2022 [facility] Work Phone: Comment on above: 1 Occurrences starti ng 06/25/2021 until 06/25/2022 End: 06-25-2023 ECG COMPLETE ECG COMPLETE ECG Routine Atrial fibrillation, persistent (HCC) 1 Occurrences starting 06/24/2022 until 06/25/2023 [facility] Work Phone: Comment on above: 1 Occurrences starti ng 06/24/2022 until 06/25/2023 ECG COMPLETE ECG COMPLETE ECG 06/05/2023 2:22 PM EDT [facility] End: 12-31-2022 Echocardiography ECHO Cardiology Routine Chronic diastolic heart failure (HCC) 1 Occurrences starting 12/31/2021 until 12/31/2022 [facility] Work Phone: Comment on above: 1 Occurrences starti ng 12/31/2021 until 12/31/2022 End: 06-04-2024 Echocardiography ECHO Cardiology Routine Chronic diastolic heart failure (HCC) 1 Occurrences starting 06/05/2023 until 06/04/2024 [facility] Work Phone: Comment on above: 1 Occurrences starti ng 06/05/2023 until 06/04/2024 Patient Education Felter Non Damian gnostic Block [facility] Work Phone: Patient referral [facility] Work Phone: [facility] Immunizations Immunization Date Immunization Notes Care Provider Fa cili 12-08-2023 influenza virus vaccine, unspecified formulation John Zahler DO Work Phone: [facility] 01-25-2022 influenza, high dose seasonal, preservative-free Declan Swanson Other [facility] Other 01-25-2022 influenza virus vaccine, unspecified formulation Ruben Denton MD Work Phone: [facility] 01-20-2021 COVID-19 Vaccine Moderna - Documentation Purposes Only Declan Kiki Other [facility] 12-29-2020 influenza virus vaccine, split virus (incl. purified surface antigen) Declan Swanson Other [facility] Other 12-29-2020 influenza virus vaccine, unspecified formulation [facility] 06-01-2020 COVID-19 vaccine, fu ll dose (MODERNA) Ruben Denton MD Work Phone: [facility] 05-04-2020 COVID-19 vaccine, fu ll dose (MODERNA) Ruben Denton MD Work Phone: [facility] 01-02-2019 influenza virus vaccine, split virus (incl. purified surface antigen) Declan Swanson Other [facility] Other 01-02-2019 influenza virus vaccine, unspecified formulation [facility] 12-01-2017 influenza virus vaccine, split virus (incl. purified surface antigen) Declan Swanson Other [facility] Other 12-01-2017 influenza virus vaccine, unspecified formulation [facility] 12-01-2017 Seasonal trivalent influenza vaccine, adjuvanted, preservative free Ruben Denton MD Work Phone: [facility] 01-08-2016 seasonal influenza, intradermal, preservative free Ruben Denton MD Work Phone: [facility] 12-10-2015 influenza virus vaccine, split virus (incl. purified surface antigen) Declan Swanson Other [facility] Other 12-10-2015 influenza virus vaccine, unspecified formulation [facility] 12-10-2015 influenza, high dose seasonal, preservative-free Ruben Denton MD Work Phone: [facility] 06-04-2015 pneumococcal conjuga te vaccine, 13 valent Declan Swanson Other [facility] 02-09-2015 influenza, injectabl e, quadrivalent, preservative free Ruben Denton MD Work Phone: [facility] 11-08-2014 pneumococcal polysaccharide vaccine, 23 valent Ruben Denton MD Work Phone: [facility] 11-21-2013 tetanus and diphther ia toxoids, adsorbed, preservative free, for adult use (5 Lf of tetanus toxoid and 2 Lf of diphtheria toxoid) Declan Swanson Other [facility] 12-23-2012 tetanus and diphther ia toxoids, adsorbed, preservative free, for adult use (5 Lf of tetanus toxoid and 2 Lf of diphtheria toxoid) Declan Swanson Other [facility] 12-21-2011 pneumococcal polysaccharide vaccine, 23 valent Declan Swanson Other [facility] Payers Date Payer Category Payer Self-pay [id number] 2019 Private Health Insurance [id number] 2019 Unknown MMO MMO MEDICARE SUPPLEMENT [id number] 2019-Present [phone] [address] [place] [address] Indemnity [id number] 2019 Unknown MMO MMO MEDICARE SUPPLEMENT [id number] 2019-Present [phone] [address] [place] [address] Indemnity [id number] 2010 Medicare MEDICARE MEDICAR E A AND B [id number] 2010-Present [phone] [address] [address] [place] [address] Medicare [id number] 2010 Medicare [id number] 1959 Medicare [id number] 2.16.840.1.290483.19 1959 Unknown [id number] 2.16.840.1.968054.19 1945 Unknown [id number] 2.16.840.1.373153.3.579.2. 593 1945 Unknown [id number] 2.16.840.1.477262.3.579.2. 593 1945 Unknown [id number] 2.16.840.1.621223.3.579.2. 593 1945 Unknown [id number] 2.16.840.1.009169.3.579.2. 593 1945 Unknown [id number] 2.16.840.1.388275.3.579.2. 593 1945 Unknown [id number] 2.16.840.1.866323.3.579.2. 593 1945 Unknown [id number] 2.16.840.1.014399.3.579.2. 593 1945 Unknown [id number] 2.16.840.1.298430.3.579.2. 593 1945 Unknown [id number] 2.16.840.1.233506.3.579.2. 593 1945 Unknown [id number] 2.16.840.1.414424.3.579.2. 593 1945 Unknown [id number] 2.16.840.1.859773.3.579.2. 593 1945 Unknown [id number] 2.16.840.1.726368.3.579.2. 593 1945 Unknown [id number] 2.16.840.1.698089.3.579.2. 593 1945 Unknown [id number] 2.16.840.1.832087.3.579.2. 593 1945 Unknown [id number] 2.16.840.1.899437.3.579.2. 593 1945 Unknown [id number] 2.16.840.1.458628.3.579.2. 593 1945 Unknown [id number] 2.16840.1.106238.3.579.2. 593 1945 Unknown [id number] 2.16.840.1.154259.3.579.2. 593 1945 Unknown [id number] 2.16.840.1.499770.3.579.2. 1259 1945 Unknown [id number] 2.16.840.1.664753.3.579.2. 1259 1945 Unknown [id number] 2.16840.1.525165.3.579.2. 1259 Unknown [id number] 2.840.1.774566.19 Unknown [facility] Health Claims [id number] Unknown [id number] 2.16840.1.250494.3.579.2. 531 Unknown [id number] 2.16840.1.667661.3.579.2. 531 Social History Date Type Detail Facility Start: 06-18-2013 End: 08-31-2022 Tobacco smoking status NHIS Ex-smoker [facility] End: 12-11-2012 History of tobacco use Current smoker [facility] End: 12-11-2012 History of tobacco use Cigar Smoker [facility] Start: 06-18-2013 End: 08-31-2022 Tobacco use and exposure Smokeless tobacco non-user [facility] Start: 09-18-2020 End: 12-08-2023 Alcohol intake Ex-drinker (finding) [facility] Start: 1945 Sex Assigned At Not on file C [facility] Start: 06-15-2021 End: 12-31-2021 Exposure to SARS-CoV-2 (event) Not sure [facility] Work Phone: Start: 06-25-2021 End: 09-02-2024 Sex Assigned At [facility] Start: 1945 Sex Assigned At Male F [facility] Start: 06-25-2021 End: 09-02-2024 History of Social function [facility] PHQ2 Score 0 [facility] Start: 04-23-2024 End: 08-01-2024 Sex Male (finding) [facility] History of tobacco use Cigarette Smoker N [facility] Start: 10-03-2023 End: 09-10-2024 Alcoholic beverage intake Current drinker of alcohol (finding) [facility] Start: 08-30-2022 Alcohol Comment 6+ drinks week ly. Caffine intkae: 1-2 cups per day coffee [facility] Medical Equipment Procedure Code Equipment Code Equipment Origin al Text Equipment Identifier Dates Blood Sugar Diagnostic (Accu-Chek Guide Test Strips) strip Start: 05-29-2024 Lancets (Accu-Ch ek Softclix [facility]ets) [facility] Start: 05-09-2024 Blood Sugar Diagnostic (Accu-Chek Guide Test Strips) strip Start: 05-09-2024 End: 05-28-2024 Blood Sugar Diagnostic (Accu-Chek Guide Test Strips) strip Start: 05-28-2024 End: 05-29-2024 Blood Sugar Diagnostic (Accu-Chek Guide Test Strips) strip Start: 05-29-2024 Lancets (Accu-Ch ek Softclix Lancets) [facility] Start: 05-09-2024 Blood Sugar Diagnostic (Accu-Chek Guide Test Strips) strip Start: 05-09-2024 End: 05-28-2024 Blood Sugar Diagnostic (Accu-Chek Guide Test Strips) strip Start: 05-28-2024 End: 05-29-2024 Blood Sugar Diagnostic (Accu-Chek Guide Test Strips) strip Start: 05-29-2024 Lancets (Accu-Ch ek Softclix Lancets) [facility] Start: 05-09-2024 Blood Sugar Diagnostic (Accu-Chek Guide Test Strips) strip Start: 05-09-2024 End: 05-28-2024 Blood Sugar Diagnostic (Accu-Chek Guide Test Strips) strip Start: 05-28-2024 End: 05-29-2024 Goals Date Patient Goal Desired Activity /State Personal health goal Functional Status Date Assessment Result Facility 10-24-2019 Are you deaf, or do you have serious difficulty hearing No 10/24/2019 11:55 AM Nga Winter RN No [facility] 10-24-2019 Are you blind, or do you have serious difficulty seeing, even when wearing glasses No 10/24/2019 11:55 AM Nga Winter RN No [facility] 10-24-2019 Do you have serious difficulty walking or climbing stairs No 10/24/2019 11:55 AM Nga Winter RN No [facility] 10-24-2019 Do you have difficul ty dressing or bathing No 10/24/2019 11:55 AM Nga Winter RN No [facility] 10-24-2019 Because of a physica l, mental, or emotional condition, do you have difficulty doing errands alone such as visiting a physician's office or shopping No 10/24/2019 11:55 AM Nga Winter RN No [facility] Mental Status Date Assessment Result Facility 10-24-2019 Because of a physica l, mental, or emotional condition, do you have serious difficulty concentrating, remembering, or making decisions No 10/24/2019 11:55 AM Nga Winter RN No [facility] Clinical Notes 04-21-2021 to 09-10-2024 John Churchill, DO - 09/10/2024 2:30 PM EDTJosephalan TrevizoDEREK - 09/02/2024 11:00 AM EDTTelephone Encounter - Radha Gates - 07/10/2024 3:52 PM EDT Note Date & Type Note Facility 09-10-2024 History of Presen t illness Narrative Images from the original note [...] scrubs were recommended. documented in this encounter [facility] 09-02-2024 History of Presen t illness Narrative Patient: Jorge Davis : 1945 PCP: Declan Swanson DO SUBJECTIVE This is a 79 y.o. male that presents today with a CC of elongated, thick nails. Pt states nails have been elongated and thick for many years and cause pain with ambulation in shoegear. Pt has tried previous treatment with minimal relief. Pt presents today for nail care and treatment. Pt also presents today for secondary complaint of swelling to b/l ankle regions and feet. They state that condition is starting to worsten have tried no treatments for the condition. States swelling worstens with prolonged standing activities. Allergies: Allergies Allergen Reactions Iodinated Contrast Media Unknown Latex Unknown Past Medical History: Past Medical History: Diagnosis Date Arthritis Atrial fibrillation (HCC) Cataracts, bilateral Hiatal hernia GERD Kidney stones Non-insulin dependent type 2 diabetes mellitus (HCC) Medications: Current Outpatient Medications: allopurinol (Zyloprim) 300 MG tablet, Take by mouth., Disp: , Rfl: doxycycline (Vibramycin) 100 MG capsule, Twice daily, Disp: , Rfl: furosemide (Lasix) 20 MG tablet, Take by mouth., Disp: , Rfl: hydroCHLOROthiazide (HYDRODiuril) 25 MG tablet, Take 50 mg by mouth in the morning., Disp: , Rfl: hydrocortisone 2.5 % cream, APPLY TO FACE DAILY MONDAY-MONDAY, WEEKENDS OFF FOR 2 WEEKS AND THEN USE NEEDED FOR FLARES, Disp: , Rfl: ketoconazole (NIZOral) 2 % cream, APPLY 2 GRAMS TO AFFECTED AREAS ON FACE AND NECK DAILY REPEAT DIRECTED CONTINUOUSLY NEEDED, Disp: , Rfl: KLOR-CON 20 MEQ ER tablet, Take 20 mEq by mouth Daily, Disp: , Rfl: metFORMIN (Glucophage) 500 MG tablet, Take by mouth., Disp: , Rfl: potassium chloride (Klor-Con) 20 MEQ packet, Take 20 mEq by mouth in the morning and 20 mEq before bedtime., Disp: , Rfl: pravastatin (Pravachol) 80 MG tablet, Take 80 mg by mouth in the morning., Disp: , Rfl: predniSONE (Deltasone) 20 MG tablet, As Directed, Disp: , Rfl: tamsulosin (Flomax) 0.4 MG 24 hr capsule, Take 0.4 mg by mouth in the morning., Disp: , Rfl: triamcinolone (Kenalog) 0.1 % cream, Twice daily, Disp: , Rfl: warfarin (Coumadin) 4 MG tablet, Take by mouth. Take as directed per After Visit Summary., Disp: , Rfl: Social History: Social History Socioeconomic History Marital status: Spouse name: Not on file Number of children: Not on file Years of education: Not on file Highest education level: Not on file Occupational History Not on file Tobacco Use Smoking status: Former Types: Cigarettes Smokeless tobacco: Never Substance and Sexual Activity Alcohol use: Yes Comment: 6+ drinks weekly. Caffine intkae: 1-2 cups per day coffee Drug use: Not on file Sexual activity: Not on file Other Topics Concern Not on file Social History Narrative Not on file Social Drivers of Health Financial Resource Strain: Not on file Food Insecurity: Not on file Transportation Needs: Not on file Physical Activity: Not on file Stress: Not on file Social Connections: Not on file Intimate Partner Violence: Not on file Housing Stability: Not on file ROS: Gastrointestinal: denies abdominal pain, ulcers, or changes in appetite or bowel habits Musculoskeletal: Positive generalized arthritis to joints and denies loss of strength. Cardiovascular: denies CP, palpitations, irregular rhythms OBJECTIVE LE EXAM: DERM: Elongated thick yellow crumbly nails digits 1 through 10. diminished hair growth b/l feet. +1 pitting edema to bilateral ankles VASC: Negative DP and positive PT pedal pulses NEURO: Gross sensation intact to bilateral feet ORTHO: Positive pain on palpation to toenails of the left 1,2,3,4,5 toes and right 1,2,3,4,5 toes ASSESSMENT 1. Venous insufficiency 2. Pain due to onychomycosis of toenails of both feet PLAN Discussed proper foot care with patient today. Debride nails in length and thickness digits 1 through 10 Visit spent with patient education on condition and treatment of condition. Pt to continue with elevation of feet while resting or NWB. Discussed compression hose and the use of stockings for edema. Discussed condition in detail. Recommendation for [id number] compression stockings at this time and may consider prescription stockings in the future. Christopher Trevizo DPM documented in this encounter [facility] 07-10-2024 Telephone encount er Note Uploaded INR results form [facility] FAX into scanned documents and EP shared drive. Radha IC 955 [facility] 07-10-2024 Miscellaneous Notes Formattin g of this note might be different from the original. Uploaded INR results form [facility] FAX into scanned documents and EP shared drive. Radha IC 955 Uploaded INR lab results FAX into scanned documents and EP shared drive. Radha IC 955 documented in this encounter [facility] 06-26-2024 Telephone encount er Note Uploaded INR lab results FAX into scanned documents and EP shared drive. Radha IC 955 [facility] 06-12-2024 Evaluation note Diagnosis Onset Date Resolution Ascending aortic aneurysm acute June 12, 2024 9:01am Atrial fibrillation acute June 12, 2024 9:01am Hypercholesteremia acute June 12, 2024 9:01am CHRISTIAN (obstructive sleep apnea) acute June 12, 2024 9:01am Pulmonary hypertension acute Ap ril 2024 9:01am Type 2 diabetes mellitus with hyperglycemia acute June 12 9:01am Venous insufficiency of both lower extremities acute June 9:01am ASHD (arteriosclerotic heart disease) deleted June 12, 2024 9:01am Essential (primary) hypertension acute July 31, 2024 12:50pm Mixed hyperlipidemia acute July 31, 2024 12:50pm Paroxysmal atrial fibrillation acute July 31, 2024 12:50pm Venous insufficiency of both lower extremities acute July 31, 2024 12:50pm [facility] Work Phone: 1(845) 382-234504-02-2025 Evaluation note* Diagnosis Onset Date Resolution Status Admit Date Ascending aortic aneurysm acute June 12, 2024 9:01am Atrial fibrillation acute June 12, 2024 9:01am Hypercholesteremia acute June 12, 2024 9:01am CHRISTIAN (obstructive sleep apnea) acute June 12, 2024 9:01am Pulmonary hypertension acute Ap ril 2024 9:01am Type 2 diabetes mellitus wit h hyperglycemia acute June 12, 2024 9:01am Venous insufficiency of both lower extremities acute June 12 9:01am ASHD (arteriosclerotic heart disease) deleted June 12, 2024 9:01am Essential (primary) hypertension acu te July 31, 2024 12:50pm Mixed hyperlipidemia acute July 31, 2024 12:50pm Paroxysmal atrial fibrillation acute July 31, 2024 12:50pm Venous insufficiency of both lower extremities acute July 31, 2024 12:50pm Ascending aortic aneurysm acute September 06, 2024 10:37am Atrial fibrillation acute September 06, 2024 10:37am Hypercholesteremia acute August 122024 10:37am CHRISTIAN (obstructive sleep apnea) acute September 06, 2024 10:37am Pulmonary hypertension acute Ju ne 2024 10:37am Pulmonary nodule, right acute J une 2024 10:37am Screening PSA (prostate spec ific antigen) acute September 06, 2024 10:37am Type 2 diabetes mellitus wit h diabetic polyneuropathy acute August 10:37am Type 2 diabetes mellitus wit h hyperglycemia acute September 06, 2024 10:37am Venous insufficiency of both lower extremities acute September 06 10:37am Medicare annual wellness vis it, subsequent noneactive September 06, 2024 10:37am [facility] Work Phone: 1(555) 474-417802-19-2025 Telephone encounter Note* Telephone Encounter - Radha Gates - 05/01/2024 3:33 PM EST Uploaded LAB results (INR) FAX into scanned documents and EP shared drive. Radha IC 955 [facility]02-19-2025 Miscellaneous Notes* Telephone Encounter - Radha Welch - 05/01/2024 3:33 PM EST Uploaded LAB results (INR) FAX into scanned documents and EP shared drive. Radha IC 955 [facility] Evaluation note* Diagnosis Onset Date Resolution Status Admit Date 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 acute April 23 025 7:47am ASHD (arteriosclerotic heart disease) acute May 07 025 9:50am Atrial fibrillation acute 2024 9:50am Hypercholesteremia acute 2024 9:50am Obesity acute May 07, 2024 9:50am CHRISTIAN (obstructive sleep apnea) acute May 07, 2024 9:50am Pulmonary nodule, right acute F ebruary 2024 9:50am Type 2 diabetes mellitus wit h diabetic polyneuropathy acute May 07, 2024 9:50am Type 2 diabetes mellitus wit h hyperglycemia acute February 25th, 2 025 9:50am Venous insufficiency of both lower extremities acute May 07, 2024 9:50am Ascending aortic aneurysm acute June 12, 2024 9:01am ASHD (arteriosclerotic heart disease) acute June 12, 2024 9:01am Atrial fibrillation acute June 12, 2024 9:01am Hypercholesteremia acute June 12, 2024 9:01am CHRISTIAN (obstructive sleep apnea) acute June 12, 2024 9:01am Pulmonary hypertension acute 2024 9:01am Type 2 diabetes mellitus wit h hyperglycemia acute June 12, 2024 9:01am Venous insufficiency of both lower extremities acute June 12 9:01am [facility] Work Phone: 1(413) 434-811001-22-2025 Telephone encounter Note* Telephone Encounter - Radha Gates - 04/03/2024 11:52 AM EST Uploaded INR results from [facility] FAX into scanned documents and EP shared drive. Radha IC 955 [facility]01-22-2025 Miscellaneous Notes* Telephone Encounter - Radha Welch - 04/03/2024 11:52 AM EST Uploaded INR results from [facility] FAX into scanned documents and EP shared drive. Radha IC 955 [facility] Evaluation note* Diagnosis Onset Date Resolution Status Admit Date Afib acute February 22, 2024 9:45am Warfarin anticoagulation acute February 22, 2024 9:45am Acute sinusitis noneactive February 22, 2024 9:45am 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 acute April 23, 2 025 7:47am [facility] Work Phone: 1(712) 873-277512-12-2024 Evaluation note* Diagnosis Onset Date Resolution Status Admit Date Afib acute February 22, 2024 9:45am Warfarin anticoagulation acute February 22, 2024 9:45am Acute sinusitis noneactive February 22, 2024 9:45am 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 acute April 23, 025 7:47am Afib acute May 07, 2024 9:50am ASHD (arteriosclerotic heart disease) acute May 07, 025 9:50am Hypercholesteremia acute Februa ry 2024 9:50am CHRISTIAN (obstructive sleep apnea) acute May 07, 2024 9:50am Pulmonary nodule, right acute F ebruary 2024 9:50am Type 2 diabetes mellitus wit h diabetic polyneuropathy acute May 07, 2024 9:50am Type 2 diabetes mellitus wit h hyperglycemia acute May 07 9:50am Venous insufficiency of both lower extremities acute May 07, 2024 9:50am [facility] Work Phone: 1(260) 564-873012-11-2024 Telephone encounter Note* Telephone Encounter - Alisha Gomez RN - 02/21/2024 1:56 PM EST Images from the original note were not included. [facility]12-11-2024 Miscellaneous Notes* Telephone Encounter - Alisha Gomez RN - 02/21/2024 1:56 PM EST Images from the original note were not included. * Telephone Encounter - Radha Gates - 02/21/2024 1:48 PM EST Received LAB results. Uploaded to scanned documents and [employer]. -Radha IC 955 [facility] encounter[facility] Telephone encounter Note * Telephone Encounter - Radha Gates - 02/21/2024 1:48 PM EST Received LAB results. Uploaded to scanned documents and EP Shared drive. -Radha IC 955 [facility]12-03-2024 History of Present illness Narrative* Alix Barrios APRN.FLEET ADMINISTRATOR - 02/13/2024 1:00 PM EST Images from the original note were not included. [facility] [place] [facility] Cresp[facility] Department of Cardiovascular Medicine SECTION OF CLINICAL CARDIOLOGY OUTPATIENT VISIT DATE February 13, 2024 OUTPATIENT VISIT TYPE ESTABLISHED PRIMARY CARE PHYSICIAN: Declan Swanson ([facility]) [address] [place] [address] REFERRING PHYSICIAN: No referring provider defined for [...] Continue staitn 5. Coronary artery disease involving [place] coronary artery of [place] heart without angina pectoris- ICD9: 414.01, ICD10: [...] Visit HTN (hypertension) - Primary Atherosclerosis of [place] coronary artery of [place] heart without angina pectoris Atrial fibrillation, persistent [...] by others. CONTACT INFORMATION: Alix Barrios APRN.CNP [facility] Cardiology Second Floor [id number] [place], [place] [id number] I spent 30 minutes in the visit, with more than 50% of the total yokj-eh-valo time of the visit in counseling / coordination of care. documented in this encounterGood [facility]12-[facility]-2024 NoteHNO ID: [id number] Author: ALIX BARRIOS APRN.CNP Service: ? Author Type: Nurse Practitioner Type: Progress Notes Filed: 02/13/2024 14:49 Note Text: [facility] [place] [facility] Department of Cardiovascular Medicine SECTION OF CLINICAL CARDIOLOGY OUTPATIENT VISIT DATE February 13, 2024 OUTPATIENT VISIT TYPE ESTABLISHED PRIMARY CARE PHYSICIAN: Declan Swanson ([facility]) [address] [id number] REFERRING PHYSICIAN: No referring provider defined for this encounter. CHIEF COMPLAINT: No chief complaint on file. HISTORY OF PRESENT ILLNESS: Mr. Davis is a 79 year old male who presents today for a cardiovascular medicine follow-up visit. PMH significant for persistent atrial fib s/p PVAI (2019); chronic HFpEF; CAD; HTN; HLD; T2DM. Established patient of Dr Evans, and Dr Denton (). He is seen today in the outpatient [...] Continue staitn 5. Coronary artery disease involving [place] coronary artery of [place] heart without angina pectoris - ICD9: 414.01, [...] surgery REPAIR UMBILICAL HERNIA (more content not included)...[facility] 02-09-2024 Telephone encounter Note* Telephone Encounter - Joselyn Macedo RN - 02/09/2024 7:51 AM EST INR results received, patient remains therapeutic. Patient is not scheduled for any upcoming procedures and coumadin is managed locally. Joselyn Macedo RN [facility]11-29-2024 Miscellaneous Notes* Telephone Encounter - Joselyn Macedo RN - 02/09/2024 7:51 AM EST INR results received, patient remains therapeutic. Patient is not scheduled for any upcoming procedures and coumadin is managed locally. Joselyn Macedo RN * Telephone Encounter - Radha Gates - 02/07/2024 2:50 PM EST Received faxed LAB results. Uploaded to scanned documents and EP shared drive. -Radha documented in this encounterGood [facility]11-27-2024 Telephone encounter Note * Telephone Encounter - Radha Gates - 02/07/2024 2:50 PM EST Received faxed LAB results. Uploaded to scanned documents and EP shared drive. -Radha [facility]11-13-2024 Telephone encounter Note* Telephone Encounter - Alisha Gomez RN - 01/24/2024 3:30 PM EST Images from the original note were not included. [facility]11-13-2024 Miscellaneous Notes* Telephone Encounter - Alisha Gomez RN - 01/24/2024 3:30 PM EST Images from the original note were not included. * Telephone Encounter - Radha Gates - 01/24/2024 2:57 PM EST Received INR LAB results from [facility]. Uploaded to [employer]/ [employer] and EP shared drive. -Radha IC 955 documented in this encounterGood [facility]11-13-2024 Telephone encounter Note * Telephone Encounter - Radha Gates - 01/24/2024 2:57 PM EST Received INR LAB results from [facility]. Uploaded to [employer]/ [employer] and [employer] drive. -Radha IC 955 [facility]10-08-2024 Telephone encounter Note* Telephone Encounter - Claire Callejas RN - 12/19/2023 2:09 PM EDT Images from the original note were not included. Spoke with patients . Relayed Dr. Pineda message below. Patient is NOT taking Jardiance due to cost. Will adjust Lasix and recheck BNP. Appt scheduled end of Dec with Shama. Patient is requestingchange to Susana instead of Wallace. Will contact us if no improvement. Venkat Evans V, MD P Avw Card Nurse; P Avw Card Director Vaccine Tell pt pro bnp is high suggesting fluid overload I started Jardiance so make sure he is taking Increase lasix to 40 mg B ID for 5 days then once a day Recheck pro bnp in 4 weeks Reinforce salt restriction Please schedule earlier appt with GERMAIN in 4-8 weeks to followup Please tell pt to notify us if he is not improving [facility]10-08-2024 Miscellaneous Notes* Telephone Encounter - Claire Callejas RN - 12/19/2023 2:09 PM EDT Images from the original note were not included. Spoke with patients . Relayed Dr. Pineda message below. Patient is NOT taking Jardiance due to cost. Will adjust Lasix and recheck BNP. Appt scheduled end of Dec with Shama. Patient is requestingchange to Susana instead of Wallace. Will contact us if no improvement. Venkat Evans V, MD P Avw Card Nurse; P Avw Card Director Vaccine Tell pt pro bnp is high suggesting [...] he is not improving documented in this encounterGood [facility]itan Hospital10-01-2024 Telephone encounter Note * Telephone Encounter - Bryan Dwyer - 12/12/2023 2:57 PM EDT Documentation scanned into EP outside database Scanned INR report into epic [facility]10-01-2024 Miscellaneous Notes* Telephone Encounter - Bryan Dwyer - 12/12/2023 2:57 PM EDT Documentation scanned into EP outside database Scanned INR report into epic documented in this encounterGood Samaritan Hospital09-27-2024 NoteHNO ID: [id number] Author: VENKAT EVANS MD Service: ? Author Type: Physician Type: Progress Notes Filed: 12/08/2023 11:39 Note Text: Referring Physician: Venkat Evans [id number] [facility] [address] Primary Care Physician: DO Jorge Unger Ryan [...] Continue staitn 5. Coronary artery disease involving [place] coronary artery of [place] heart without angina pectoris - ICD9: 414.01, [...] (mg/dL) Date Value 09/18/2020 78 Venkat Evans [facility]09-27-2024 History of Present illness Narrative* Venkat Evans V, MD - 12/08/2023 11:24 AM EDT Images from the original note were not included. Referring Physician: Venkat Evans [id number] [facility] [address] Primary Care Physician: DO Jorge Unger Ryan [...] Continue staitn 5. Coronary artery disease involving [place] coronary artery of [place] heart without angina pectoris- ICD9: 414.01, ICD10: [...] 78 Venkat Evans MD documented in this encounterGood [facility]09-04-2024 Telephone encounter Note * Telephone Encounter - Bryan Dwyer - 11/15/2023 2:36 PM EDT Documentation scanned into EP outside database Scanned INR results into epic [facility]09-04-2024 Miscellaneous Notes* Telephone Encounter - Bryan Dwyer - 11/15/2023 2:36 PM EDT Documentation scanned into EP outside database Scanned INR results into epic documented in this encounterGood [facility]itan Hospital07-09-2024 Telephone encounter Note * Telephone Encounter - Bryan Dwyer - 09/19/2023 3:52 PM EDT Documentation scanned into EP outside database Scanned INR results into epic [facility]07-09-2024 Miscellaneous Notes* Telephone Encounter - Bryan Dwyer - 09/19/2023 3:52 PM EDT Documentation scanned into EP outside database Scanned INR results into epic documented in this encounterGood [facility]06-11-2024 Telephone encounter Note * Telephone Encounter - Bryan Dwyer - 08/22/2023 4:52 PM EDT Documentation scanned into EP outside database Scanned INR results into epic [facility]06-11-2024 Miscellaneous Notes* Telephone Encounter - Bryan Dwyer - 08/22/2023 4:52 PM EDT Documentation scanned into EP outside database Scanned INR results into epic documented in this encounterGood [facility]05-14-2024 Telephone encounter Note * Telephone Encounter - Bryan Dwyer - 07/25/2023 10:21 AM EDT Documentation scanned into EP outside database Scanned INR results into Epic [facility]05-14-2024 Miscellaneous Notes* Telephone Encounter - Bryan Dwyer - 07/25/2023 10:21 AM EDT Documentation scanned into EP outside database Scanned INR results into Epic documented in this encounterGood [facility]aritan Hospital04-23-2024 History of Present illness Narrative* Shama Ibanez PA-C - 07/04/2023 10:00 AM EDT Images from the original note were not included. [facility] [place] [facility] Department of Cardiovascular Medicine SECTION OF CARDIAC PACING and ELECTROPHYSIOLOGY OUTPATIENT VISIT DATE July 04, 2023 OUTPATIENT VISIT TYPE ESTABLISHED PRIMARY CARE PHYSICIAN: Declan Swanson ([facility]) [address] [place] [address] CHIEF COMPLAINT: Cardiology follow up HISTORY OF [...] with more than 50% of the total avkf-yz-wsoy time of the visit in counseling / coordination of care. documented in this encounterGood Samaritan Hospital04-23-2024 Instructions* Patient Instructions* Shama Ibanez PA-C - 07/04/2023 9:58 AM EDT - No changes to medications today - Will have you see Dr Evans with echo as scheduled - Will have you see Dr Denton in 1 year - Call us sooner with any questions or concerns Shama Ibanez PA-C documented in this encounterGood [facility]itan [facility]04-16-2024 Miscellaneous Notes* Telephone Encounter - Bryan Dwyer - 06/27/2023 2:52 PM EDT Documentation scanned into EP outside database Scanned INR results into epic documented in this encounterGood Samaritan Hospital03-25-2024 History of Present illness Narrative* Venkat Evans [...] 78 Venkat Evans MD documented in this encounterGood Samaritan Hospital03-19-2024 Miscellaneous Notes* Telephone Encounter - Bryan Dwyer - 05/30/2023 9:19 AM EDT Documentation scanned into EP outside database Scanned into [employer] documented in this encounterGood Samaritan Hospital02-20-2024 Miscellaneous Notes* Telephone Encounter - Bryan Dwyer - 05/02/2023 3:27 PM EST Documentation scanned into EP outside database documented in this encounterGood Samaritan Hospital01-25-2024 Miscellaneous Notes* Telephone Encounter - Marisol Garvin - 04/06/2023 6:45 AM EST Outside medical records (INR report 04/04/2023) scanned into [employer] and shared EP drive. documented in this [facility]01-11-2024 Evaluation note* Encounter Date Diagnosis [...] further antibiotics necessary Call w/ increased tenderness [facility] Other 11-28-2023 Miscellaneous Notes* Telephone Encounter - Marisol Garvin - 02/07/2023 9:31 AM EST Outside medical records (INR report 02/07/2023) scanned into [employer] and shared EP drive. documented in this encounterGood [facility]aritan Hospital11-01-2023 Miscellaneous Notes* Telephone Encounter - Marisol Garvin - 01/11/2023 7:24 AM EDT Outside medical records (INR Report 01/10/2023) scanned into [employer] EP drive. documented in this encounterGood Samaritan Hospital10-26-2023 Miscellaneous Notes* Telephone Encounter - Marisol Garvin - 01/05/2023 6:48 AM EDT Images from the original note were not included. Outside medical records (INR report 12/27/2022) scanned into [employer] EP drive. documented in this [facility]10-24-2023 Evaluation note* Encounter Date Diagnosis [...] but no change in treatment is necessary [facility] Other 10-23-2023 Evaluation note* Encounter Date Diagnosis [...] BS but no adjustment in treatment necessary [facility] Other [id number] Miscellaneous Notes* Telephone Encounter - Bobbi Day - 12/23/2022 7:48 AM EDT Patient records received via electronic fax. Uploaded to [employer]. INR 12.20.22 Bobbi Day documented in this encounterGood Samaritan Hospital10-10-2023 Evaluation note* Encounter Date Diagnosis Assessment [...] Above note written by Christian Damon MA, Candy Depositing Machine Operator. Edited and approved by Dr. Ruben Celis MD. [facility] Other 10-04-2023 Evaluation note* Encounter Date Diagnosis [...] are maintaining regular scheduled appts with their network support specialist. No bleeding complications Dec, Type 2 diabetes [...] use, the patient reduces the risk for CT, CVA, HTN, cardiac dysrhythmias and sudden cardiac deaths.The patient is also aware of the association between CHRISTIAN and morning headaches, daytime somnolence, fatigue and obesity Unable to tolerate treatment, noncompliant Aware this would likely prevent quaker of NSR Dec, Chronic venous insufficiency of [...] as needed. 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 Uploaded to [employer]. INR 8.17.23 Bobbi Day documented in this encounterGood [facility]aritan Hospital08-16-2023 Evaluation note* Encounter Date Diagnosis Assessment [...] note writ ten by Christian Damon MA, Candy Depositing Machine Operator. Edited and approved by Dr. Ruben Celis MD. [facility] Other 08-03-2023 Miscellaneous Notes* Telephone Encounter - Bobbi Day - 10/13/2022 3:54 PM EDT Patient records received via electronic fax. Uploaded to [employer]. INR 8.3.23 Bobbi Day documented in this encounterGood [facility]aritan Hospital08-03-2023 Evaluation note* Encounter Date Diagnosis Assessment [...] Microalbumin, Dilated eye exam and Foot exam [facility] Other 08-02-2023 Evaluation note* Encounter Date Diagnosis [...] with me on a as needed basis. [facility] Other 07-07-2023 Miscellaneous Notes* Telephone Encounter - Marisol Garvin - 09/16/2022 7:48 AM EDT Images from the original note were not included. Outside medical records (INR report) scanned into shared [facility] drive. documented in this encounterGood Samaritan Hospital07-06-2023 Evaluation note* Encounter Date Diagnosis Assessment [...] Microalbumin, Dilated eye exam and Foot exam [facility] Other 06-28-2023 Miscellaneous Notes* Telephone Encounter - Orly Olivo MA - 09/07/2022 11:30 AM EDT Received lab results from [facility]. No upcoming appts. Sent for scanning. documented in this encounterGood Samaritan Hospital06-22-2023 Miscellaneous Notes* Telephone Encounter - Bobbi Day - 09/01/2022 2:39 PM EDT Patient records received via electronic fax. Uploaded to [email or web address] Bobbi Day documented in this encounterGood Samaritan Hospital06-06-2023 Evaluation note* Encounter Date Diagnosis Assessment [...] are maintaining regular scheduled appts with their network support specialist. Aug, Pulmonary nodule, right (ICD-10 - R91.1) [...] use, the patient reduces the risk for CT, CVA, HTN, cardiac dysrhythmias and sudden cardiac [...] High risk medication use (ICD-10 - Z79.899) [facility] Other 05-11-2023 Miscellaneous Notes* Telephone Encounter - Bobbi Day - 07/21/2022 12:00 PM EDT Patient records received via electronic fax. Uploaded to [employer]. INR 5.11.23 Bobbi Day documented in this encounterGood Samaritan Hospital05-04-2023 Miscellaneous Notes* Telephone Encounter - Kayla [...] this year with me documented in this encounterGood Samaritan Hospital04-17-2023 Miscellaneous Notes* Telephone Encounter - Chiquita [...] TD Chiquita Soares RN documented in this encounterGood Samaritan Hospital04-17-2023 Evaluation note* Encounter Date Diagnosis Assessment [...] - aorta is borderline dilated 4.0 cm. [facility] Other 04-14-2023 History of Present illness Narrative* [...] (Hypertension) Dyslipidemia Atrial Fibrillation (Hcc) Atherosclerosis of [place] Coronary Artery of [place] Heart Without Angina Pectoris Diabetes Mellitus Type [...] phrases that may beinappropriate. documented in this encounterGood Samaritan Hospital04-13-2023 Miscellaneous Notes* Telephone Encounter - Bobbi Day - 06/23/2022 11:30 AM EDT Patient records received via electronic fax. Uploaded to [employer]. INR 4.13.23 Bobbi Day documented in this encounterGood Samaritan Hospital03-17-2023 Miscellaneous Notes* Telephone Encounter - Bobbi Day - 05/27/2022 9:01 AM EDT Patient records received via electronic fax. Uploaded to [employer] INR RESULTS Bobbi Day documented in this encounterGood Samaritan Hospital03-06-2023 Evaluation note* Encounter Date Diagnosis [...] are maintaining regular scheduled appts with their network support specialist. May, CHRISTIAN (obstructive sleep apnea) (ICD-10 - [...] past 2 years. No further screening required. [facility] Other 01-10-2023 Evaluation note* Encounter Date Diagnosis [...] which are reviewed at the office visit. [facility] Other 12-29-2022 Miscellaneous Notes* Telephone Encounter - Bobbi Day - 03/10/2022 9:28 AM EST Images from the original note were not included. Patient records received via electronic fax. Uploaded to [employer] Bobbi Day documented in this encounterGood Samaritan Hospital12-07-2022 NotePROCEDURE: XR FOOT LT MIN 3 [...] Electronically authenticated by: JAMIE FAROOQ Date: 2022-02-16 09:55[facility]12-07-2022 NotePROCEDURE: XR FOOT LT MIN 3 VIEWS, [...] Electronically authenticated by: JAMIE FAROOQ Date: 2022-02-16 09:55[facility]11-22-2022 Miscellaneous Notes* Telephone Encounter - Bobbi Day - 02/01/2022 4:02 PM EST Images from the original note were not included. Patient records received via electronic fax. Uploaded to [employer] / [employer] Bobbi Day documented in this [facility]11-10-2022 Miscellaneous Notes* Telephone Encounter - Bobbi Day - 01/20/2022 4:51 PM EST Patient records received via electronic fax. Uploaded to [employer] Bobbi Day documented in this [facility]11-08-2022 Miscellaneous Notes* Telephone Encounter - Bobbi Day - 01/18/2022 2:49 PM EST Images from the original note were not included. Patient records received via electronic fax. Uploaded to [employer] Bobbi Day documented in this [facility]10-26-2022 Miscellaneous Notes* Telephone Encounter - Bobbi Day - 01/05/2022 8:57 AM EDT Images from the original note were not included. Patient records received via electronic fax. Uploaded to [employer] / [employer] Bobbi Day documented in this [facility]10-25-2022 Miscellaneous Notes* Telephone Encounter - Bobbi Day - 01/04/2022 4:17 PM EDT Images from the original note were not included. Patient records received via electronic fax. Uploaded to [employer] Bobbi Day documented in this [facility]10-21-2022 History of Present illness Narrative* Venkat Evans V, MD - 12/31/2021 1:00 PM EDT Referring Physician: Sara Carlson [id number] [address] [facility] [id number] Primary Care Physician: DO Jorge Unger Kavita [...] Per EP 3. Coronary artery disease involving [place] coronary artery of [place] heart without angina pectoris- ICD9: 414.01, ICD10: [...] 78 Venkat Evans MD documented in this encounterGood Samaritan Hospital10-11-2022 Miscellaneous Notes* Telephone Encounter - Bobbi Shay - 12/21/2021 4:17 PM EDT Images from the original note were not included. Patient records received via electronic fax. Uploaded to [employer]. Bobbi Day documented in this encounterGood Samaritan Hospital09-27-2022 Miscellaneous Notes* Telephone Encounter - Bobbi Day - 12/07/2021 2:04 PM EDT Patient records received via electronic fax. Uploaded to [employer] / [employer] Bobbi Day documented in this encounterGood Samaritan Hospital04-28-2022 Miscellaneous Notes* Telephone Encounter - Marisol Garvin - 07/08/2021 4:17 PM EDT Images from the original note were not included. Outside medical records (INR report 07/08/2021) scanned into shared [employer]. documented in this encounterGood Samaritan Hospital04-15-2022 History of Present illness Narrative* [...] (Hypertension) Dyslipidemia Atrial Fibrillation (Hcc) Atherosclerosis of [place] Coronary Artery of [place] Heart Without Angina Pectoris Diabetes Mellitus Type [...] furosemide, a statin. INR is managed by [facility] and is checked monthly. No problems [...] today in the office shows: NSR [id number] Low voltage P waves Impression and plan dictated separately; to be transcribed. Ruben Denton MD CC - Declan Swanson, DO This clinical note has been produced using speech recognition software and may contain errors related to that system including grammar, punctuation, spelling, gender and words and phrases that may beinappropriate. documented in this encounterGood Samaritan Hospital04-15-2022 History of Present illness Narrative* Sara Carlson APRN.[facility] - 06/25/2021 1:25 PM EDT Images from the original note were not included. [facility] [place] Cristal Crespo Department of Cardiovascular Medicine SECTION OF CLINICAL CARDIOLOGY OUTPATIENT VISIT DATE June 25, 2021 OUTPATIENT VISIT TYPE ESTABLISHED PRIMARY CARE PHYSICIAN: Declan Swanson (Peggy) [address] [id number] CHIEF COMPLAINT: follow up HISTORY OF PRESENT ILLNESS: Mr. Davis is a 76 year old male who presents today for a cardiovascular medicine followed by Dr. Evans & Dr. Denton for non occlusive CAD , chronic diastolic heart failure, paroxysmal atrial fibrillation (s/p ablation 2019; [id number]: 3%; age, hypertension, diabetes type II), Other [...] failure, paroxysmal atrial fibrillation (s/p ablation 2019; [id number]: 3%; age, hypertension, diabetes type II), Other [...] with more than 50% of the total [id number] time of the visit in counseling / coordination of care. CONTACT INFORMATION: Sara Carlson APRN.CNP, 06/25/21 [facility] Second Floor [address] [place] [address] documented in this encounterGood Samaritan Hospital03-31-2022 Miscellaneous Notes* Telephone Encounter - Marisol Garvin - 06/10/2021 1:12 PM EDT Images from the original note were not included. Outside medical records (INR results 06/10/2021) scanned into shared EP drive. documented in this encounterGood Samaritan Hospital03-22-2022 Miscellaneous Notes* Telephone Encounter - Alisha Gomez RN - 06/01/2021 4:26 PM EDT Message left. Yes, he needs EKG. Ordered. (Not sure why he has 2 appts. on same day with same dept). Alisha Gomez RN * Telephone Encounter - Angela Collazo - 05/31/2021 11:30 AM EDT May 31, 2021 Patient Name:PATIENT Jorge Davis Contact Information: [phone] Last visit with EP Provider: 09/18/2020 Reason for Call: Patient would like to know if he should be getting an EKG prior to his appointment06/25. Last EKG was 09/18/20. Physician: Feliz Lipscomb MD Thank you, Angela Collazo The patient was informed that our caregivers are afforded 72 business hours to review and respond telephone messages. documented in this encounterGood Samaritan Hospital03-10-2022 Evaluation note* Encounter Date Diagnosis Assessment [...] us and we will see him sooner. [facility] Other 02-09-2022 Miscellaneous Notes* Telephone Encounter - Jessika Escobar - 04/21/2021 4:00 PM EST Received outside records - uploaded to Scanned Documents in [employer] through onbase Appointment on Visit date not found Last appointment with this provider 04/01/2021 Last OV in this dept 04/19/2019 Jessikaemma Escobar [facility] Diagnosis Atrial fibrillation, persistent (HCC)- Primary Atrial fibrillation documented in this encounter [facility] note* Diagnosis Atrial fibrillation, persistent (HCC)- Primary Atrial fibrillation S/P ablation of atrial fibrillation Other postprocedural status Obesity, Class III, BMI >= 40 Morbid obesity Controlled type 2 diabetes mellitus without complication, without long-term current use of insulin (HCC) CHRISTIAN (obstructive sleep apnea) Obstructive sleep apnea (adult) (pediatric) Atherosclerosis of [place] coronary artery of [place] heart without angina pectoris Encounter for current long-term use of anticoagulants Long-term (current) use of anticoagulants documented in this encounter [facility] note* Diagnosis Acute on chronic diastolic heart failure (HCC)- Primary Acute on chronic diastolic heart failure Primary hypertension Unspecified essential hypertension documented in this encounter [facility] note* Diagnosis Chronic diastolic heart failure (HCC)- Primary Chronic diastolic heart failure Paroxysmal atrial fibrillation (HCC) Atrial fibrillation Coronary artery disease involving [place] coronary artery of [place] heart without angina pectoris Controlled type 2 diabetes mellitus without complication, without long-term current use of insulin (HCC) documented in this encounter [facility] noteNo [facility] [employer] Other Evaluation note* Diagnosis Atrial fibrillation, persistent [...] BMI >= 40 Morbid obesity Atherosclerosis of [place] coronary artery of [place] heart without angina pectoris documented in this encounter [facility] noteNort [employer] Other Evaluation noteNo assessment information available [facility] Work Phone: evaluation note* Diagnosis Chronic diastolic heart failure (HCC)- Primary Chronic diastolic heart failure Atrial fibrillation, persistent (HCC) Atrial fibrillation Obesity, Class III, 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) Morbid obesity Mixed hyperlipidemia [facility]* Diagnosis Atrial fibrillation, persistent (HCC)- Primary Atrial fibrillation S/P ablation of atrial fibrillation Other postprocedural status On continuous oral anticoagulation Long-term (current) use of anticoagulants [facility]* Diagnosis Onset Date Resolution Status ASHD (arteriosclerotic heart disease) acute Acute bronchitis due to other specified organisms noneactive Contact dermatitis acute Type 2 diabetes mellitus with hyperglycemia acute [facility] Work Phone: Evaluation note* Diagnosis Onset [...] acute Medicare annual wellness visit, subsequent noneactive [facility] Work Phone: Evaluation note* Diagnosis Chronic diastolic heart failure (HCC)- Primary Chronic diastolic heart failure Atrial fibrillation, persistent (HCC) Atrial fibrillation Obesity, Class III, 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) Morbid obesity Mixed hyperlipidemia Coronary artery disease involving [place] coronary artery of [place] heart without angina pectoris documented in this encounter [facility]* Diagnosis Onset Date Resolution Status Afib acute ASHD (arteriosclerotic heart disease) acute Hypercholesteremia acute CHRISTIAN (obstructive sleep apnea) acute Traumatic hematoma of right lower leg with infection acute Type 2 diabetes mellitus with diabetic polyneuropathy acute Type 2 diabetes mellitus with hyperglycemia acute Venous insufficiency of both lower extremities acute [facility] Work Phone: Evaluation note* Diagnosis Primary hypertension- Primary Unspecified essential hypertension Atherosclerosis of [place] coronary artery of [place] heart without angina pectoris Atrial fibrillation, persistent (HCC) Atrial fibrillation Chronic diastolic heart failure (HCC) Chronic diastolic heart failure Mixed hyperlipidemia documented in this encounter [facility]* Diagnosis Venous insufficiency- Primary Unspecified venous (peripheral) insufficiency Pain due to onychomycosis of toenails of both feet documented in this encounter [facility] HealthcareEvaluation note* Diagnosis Dry eyes- Primary Unspecified tear film insufficiency Blepharitis of upper and lower eyelids of both eyes, unspecified type documented in this encounter [facility] general Narrative - Reported* Type Description Date [...] porstate sx 2017 Hospitalization History see above [facility] Other [facility] general Narrative - Reported* Type Description Date [...] heart cath 06/2015 Hospitalization History see above [facility] Other History general Narrative - [facility] Other Reason for referral (narrative)* Outpatient Procedure (Routine) - Pending Review Specialty Diagnoses / Procedures Referred By Carmine mckee Referred To Contact [facility] Diagnoses Atrial fibrillation, persistent (HCC) Procedures ECG COMPLETE ECG ROUTINE ECG W/LEAST 12 LDS W/I&R Ruben Denton MD [address] [place] [address] [place] [address] Referral ID Status Reason Start Date Expiration Date Visits Requested Visits Authorized [id number] Pending Review Auto-Generat ed Referral 06/01/2021 06/01/2022 1 1 [facility] for referral (narrative)* Outpatient Procedure (Routine) - Closed Specialty Diagnoses / Procedures Referred By Carmine mckee Referred To [facility] Diagnoses Atrial fibrillation, persistent (HCC) Procedures ECG COMPLETE ECG ROUTINE ECG W/LEAST 12 LDS W/I&R Ruben Denton MD [address] [id number] [place] [address] Referral ID Status Reason Start Date Expiration Date V isits Requested Visits Authorized [id number] Closed Auto-Generate d Referral 06/25/2021 06/25/2022 1 1 [facility] for referral (narrative)* Outpatient Procedure (Routine) - Authorized Specialty Diagnoses / Procedures Referred By Carmine t Referred To [facility] Diagnoses Chronic diastolic heart failure (HCC) Procedures ECHO ECHO TTHRC R-T 2D W/WOM-MODE COMPL SPEC&[place] [address] [place] [address] [address] Referral ID Status Reason Start Date Expiration Date Visits Requested Visits Authorized [id number] Authorized Auto-Generat ed Referral 12/31/2022 1 1 [facility] for referral (narrative)* Outpatient Procedure (Routine) - Pending Review Specialty Diagnoses / Procedures Referred By Contac t Referred To [facility] Diagnoses Atrial fibrillation, persistent (HCC) Procedures ECG COMPLETE ECG ROUTINE ECG W/LEAST 12 LDS W/[place] [address] [place] [address] [address] Referral ID Status Reason Start Date Expiration Date Visits Requested Visits Authorized [id number] Pending Review Auto-Generat ed Referral 06/24/2022 06/24/2023 1 1 T [facility] for referral (narrative)* Outpatient Procedure (Routine) - Authorized Specialty Diagnoses / Procedures Referred By Contac t Referred To [facility] Diagnoses Chronic diastolic heart failure (HCC) Procedures ECHO ECHO TTHRC R-T 2D W/WOM-MODE COMPL SPEC&[place] [address] [place] [address] [address] Referral ID Status Reason Start Date Expiration Date Visits Requested Visits Authorized [id number] Authorized Auto-Generat ed Referral 06/05/2023 06/04/2024 1 1 [facility] for referral (narrative)No reason for referral information availablePromedica [facility] Work Phone: Summary Purpose Family History No Family History [...] Condition Age at Onset Recorded Date/T chris mother Diabetes mellitus Unknown Coronary artery disease Unknown Unknown Hypertension Unknown father Diabetes mellitus Unknown Malignant neoplasm Unknown brother Heart disease Unknown Advance Directives No Advanced Directives Records FoundDocuments on File Type Date Recorded Patient Montessori Lead Teacher Expl anation Advance Directive(s) 12/24/2019 10:01 AM [...] Documents on File Type Date Recorded Patient Montessori Lead Teacher Expl anation Advance Directive(s) 12/24/2019 10:01 AM [...] 023 6:44am Hospital Course Note HNO ID: [id number] Author: Kandice Carlson Service: Electrophysiology Author Type: [...] (more content not included)... Note HNO ID: [id number] Author: Sarah waters (Venus) Williams Service: ? Author Type: Lithographic Camera Operator Type: Anesthesia Procedure Notes Filed: 10/23/2019 9:12 [...] not included)... Procedure Findings Note HNO ID: [id number] Author: Sarah Kramer (Aa) Service: ? Author Type: Lithographic Camera Operator Type: Anesthesia Procedure Notes Filed: 10/23/2019 9:12 [...] both lower extremities Chief Complaint Admit Date Adult Risk Stratification February 202023 10:02am sinus infection/cold for 2-3 weeks-HIGH RISK February 22, 2024 9:45am OP ODD PIECE CHECKER LT HAND PAIN NX April 23 7:47am [...] weeks-HIGH RISK February 22, 2024 9:45am OP ODD PIECE CHECKER LT HAND PAIN NX April 23 7:47am [...] 2024 9:50am Chief Complaint Admit Date OP ODD PIECE CHECKER LT HAND PAIN NX April 23 7:47am M79.642 - Pain in left hand April 8:00am high risk 4 month f/u May 07 9:50am change network support specialist-HIGH RISK June 12, 2024 9:01am Reason for [...] lower extre mities June 12, 2024 9:01am Chief Complaint Admit Date change network support specialist-HIGH RISK June 12, 2024 9:01am Atherosclerotic heart disease & Permanen t afib July 31, 2024 12:50pm Reason for Visit Admit Date Ascending aortic aneurysm June 12 9:01am Atrial fibrillation June 12, 2024 9:01 am Hypercholesteremia June 12, 2024 9:01 am CHRISTIAN (obstructive sleep apnea) June 12, 2024 9:01am Pulmonary hypertension June 12, 2024 9 :01am Type 2 diabetes mellitus with hyperglyce marion June 12, 2024 9:01am Venous insufficiency of both lower extre mities June 12, 2024 9:01am ASHD (arteriosclerotic heart disease) Ap ril 2024 9:01am Essential (primary) hypertension July 12:50pm Mixed hyperlipidemia July 31, 2024 12:5 0pm Paroxysmal atrial fibrillation July 31, 2024 12:50pm Venous insufficiency of both lower extre mities July 31, 2024 12:50pm Chief Complaint Admit Date change network support specialist-HIGH RISK June 12, 2024 9:01am Atherosclerotic heart disease & Permanen t afib July 31, 2024 12:50pm I48.July 31, 2024 12:51 pm Wellness-HIGH RISK September 06, 2024 10:3 7am Reason for Visit Admit Date Ascending aortic aneurysm June 12 9:01am Atrial fibrillation June 12, 2024 9:01 am Hypercholesteremia June 12, 2024 9:01 am CHRISTIAN (obstructive sleep apnea) June 12, 2024 9:01am Pulmonary hypertension June 12, 2024 9 :01am Type 2 diabetes mellitus with hyperglyce marion June 12, 2024 9:01am Venous insufficiency of both lower extre mities June 12, 2024 9:01am ASHD (arteriosclerotic heart disease) Ap ril 2024 9:01am Essential (primary) hypertension July 12:50pm Mixed hyperlipidemia July 31, 2024 12:5 0pm Paroxysmal atrial fibrillation July 31, 2024 12:50pm Venous insufficiency of both lower extre mities July 31, 2024 12:50pm Ascending aortic aneurysm September 06 10:37am Atrial fibrillation September 06, 2024 10:3 7am Hypercholesteremia September 06, 2024 10:3 7am CHRISTIAN (obstructive sleep apnea) September 06, 2024 10:37am Pulmonary hypertension September 06, 2024 1 0:37am Pulmonary nodule, right September 06, 2024 10:37am Screening PSA (prostate specific antigen ) September 06, 2024 10:37am Type 2 diabetes mellitus with diabetic p olyneuropathy September 06, 2024 10:37am Type 2 diabetes mellitus with hyperglyce marion September 06, 2024 10:37am Venous insufficiency of both lower extre mities September 06, 2024 10:37am Medicare annual wellness visit, subseque nt September 06, 2024 10:37am Additional Source Comments (unrecognized sect ion and content) No Status Records FoundNo Status Records FoundNo Status Records FoundNo Status Records FoundNo Status Records FoundNo Status Records FoundNo Status Records Found INFORMATION SOURCE (unrecogn ized section and content) DATE CREATED AUTHOR 12/24/2019 [facility] DATE CREATED AUTHOR AUTHOR'S ORGANIZ ATION 02/29/2020 [facility] DATE CREATED AUTHOR AUTHOR'S ORGANIZ ATION 08/19/2022 [facility] DATE CREATED AUTHOR AUTHOR'S ORGANIZ ATION 02/15/2024 [facility] DATE CREATED AUTHOR AUTHOR'S ORGANIZ ATION 07/16/2024 [facility] DATE CREATED AUTHOR AUTHOR'S ORGANIZ ATION 08/07/2024 [facility] DATE CREATED AUTHOR AUTHOR'S ORGANIZ ATION 09/12/2024 [facility] EPIC Source Comments (unrecognize d section and content) In the event this informatio n is protected by the Federal Confidentiality of Alcohol and Drug Abuse Patient Records regulations: The Federal rules restrict any use of the information to criminally investigate or prosecute any alcohol or drug abuse patient.[facility] HospitalIn the event this information is protected by the Federal Confidentiality of Alcohol and Drug Abuse Patient Records regulations: The Federal rules restrict any use of the information to criminally investigate or prosecute any alcohol or drug abuse patient.[facility] HospitalIn the event this information is protected by the Federal Confidentiality of Alcohol and Drug Abuse Patient Records regulations: The Federal rules restrict any use of the information to criminally investigate or prosecute any alcohol or drug abuse patient.[facility] HospitalIn the event this information is protected by the Federal Confidentiality of Alcohol and Drug Abuse Patient Records regulations: The Federal rules restrict any use of the information to criminally investigate or prosecute any alcohol or drug abuse patient.[facility] HospitalIn the event this information is protected by the Federal Confidentiality of Alcohol and Drug Abuse Patient Records regulations: The Federal rules restrict any use of the information to criminally investigate or prosecute any alcohol or drug abuse patient.[facility] HospitalIn the event this information is protected by the Federal Confidentiality of Alcohol and Drug Abuse Patient Records regulations: The Federal rules restrict any use of the information to criminally investigate or prosecute any alcohol or drug abuse patient.[facility] HospitalIn the event this information is protected by the Federal Confidentiality of Alcohol and Drug Abuse Patient Records regulations: The Federal rules restrict any use of the information to criminally investigate or prosecute any alcohol or drug abuse patient.[facility] HospitalIn the event this information is protected by the Federal Confidentiality of Alcohol and Drug Abuse Patient Records regulations: The Federal rules restrict any use of the information to criminally investigate or prosecute any alcohol or drug abuse patient.[facility] HospitalIn the event this information is protected by the Federal Confidentiality of Alcohol and Drug Abuse Patient Records regulations: The Federal rules restrict any use of the information to criminally investigate or prosecute any alcohol or drug abuse patient.[facility] HospitalIn the event this information is protected by the Federal Confidentiality of Alcohol and Drug Abuse Patient Records regulations: The Federal rules restrict any use of the information to criminally investigate or prosecute any alcohol or drug abuse patient.[facility] HospitalIn the event this information is protected by the Federal Confidentiality of Alcohol and Drug Abuse Patient Records regulations: The Federal rules restrict any use of the information to criminally investigate or prosecute any alcohol or drug abuse patient.[facility] HospitalIn the event this information is protected by the Federal Confidentiality of Alcohol and Drug Abuse Patient Records regulations: The Federal rules restrict any use of the information to criminally investigate or prosecute any alcohol or drug abuse patient.[facility] HospitalIn the event this information is protected by the Federal Confidentiality of Alcohol and Drug Abuse Patient Records regulations: The Federal rules restrict any use of the information to criminally investigate or prosecute any alcohol or drug abuse patient.[facility] HospitalIn the event this information is protected by the Federal Confidentiality of Alcohol and Drug Abuse Patient Records regulations: The Federal rules restrict any use of the information to criminally investigate or prosecute any alcohol or drug abuse patient.[facility] HospitalIn the event this information is protected by the Federal Confidentiality of Alcohol and Drug Abuse Patient Records regulations: The Federal rules restrict any use of the information to criminally investigate or prosecute any alcohol or drug abuse patient.[facility] HospitalIn the event this information is protected by the Federal Confidentiality of Alcohol and Drug Abuse Patient Records regulations: The Federal rules restrict any use of the information to criminally investigate or prosecute any alcohol or drug abuse patient.[facility] HospitalIn the event this information is protected by the Federal Confidentiality of Alcohol and Drug Abuse Patient Records regulations: The Federal rules restrict any use of the information to criminally investigate or prosecute any alcohol or drug abuse patient.[facility] HospitalIn the event this information is protected by the Federal Confidentiality of Alcohol and Drug Abuse Patient Records regulations: The Federal rules restrict any use of the information to criminally investigate or prosecute any alcohol or drug abuse patient.[facility] HospitalIn the event this information is protected by the Federal Confidentiality of Alcohol and Drug Abuse Patient Records regulations: The Federal rules restrict any use of the information to criminally investigate or prosecute any alcohol or drug abuse patient.[facility] HospitalIn the event this information is protected by the Federal Confidentiality of Alcohol and Drug Abuse Patient Records regulations: The Federal rules restrict any use of the information to criminally investigate or prosecute any alcohol or drug abuse patient.[facility] HospitalIn the event this information is protected by the Federal Confidentiality of Alcohol and Drug Abuse Patient Records regulations: The Federal rules restrict any use of the information to criminally investigate or prosecute any alcohol or drug abuse patient.[facility] HospitalIn the event this information is protected by the Federal Confidentiality of Alcohol and Drug Abuse Patient Records regulations: The Federal rules restrict any use of the information to criminally investigate or prosecute any alcohol or drug abuse patient.[facility] HospitalIn the event this information is protected by the Federal Confidentiality of Alcohol and Drug Abuse Patient Records regulations: The Federal rules restrict any use of the information to criminally investigate or prosecute any alcohol or drug abuse patient.[facility] HospitalIn the event this information is protected by the Federal Confidentiality of Alcohol and Drug Abuse Patient Records regulations: The Federal rules restrict any use of the information to criminally investigate or prosecute any alcohol or drug abuse patient.[facility] HospitalIn the event this information is protected by the Federal Confidentiality of Alcohol and Drug Abuse Patient Records regulations: The Federal rules restrict any use of the information to criminally investigate or prosecute any alcohol or drug abuse patient.[facility] HospitalIn the event this information is protected by the Federal Confidentiality of Alcohol and Drug Abuse Patient Records regulations: The Federal rules restrict any use of the information to criminally investigate or prosecute any alcohol or drug abuse patient.[facility] HospitalIn the event this information is protected by the Federal Confidentiality of Alcohol and Drug Abuse Patient Records regulations: The Federal rules restrict any use of the information to criminally investigate or prosecute any alcohol or drug abuse patient.[facility] HospitalIn the event this information is protected by the Federal Confidentiality of Alcohol and Drug Abuse Patient Records regulations: The Federal rules restrict any use of the information to criminally investigate or prosecute any alcohol or drug abuse patient.[facility] HospitalIn the event this information is protected by the Federal Confidentiality of Alcohol and Drug Abuse Patient Records regulations: The Federal rules restrict any use of the information to criminally investigate or prosecute any alcohol or drug abuse patient.[facility] HospitalIn the event this information is protected by the Federal Confidentiality of Alcohol and Drug Abuse Patient Records regulations: The Federal rules restrict any use of the information to criminally investigate or prosecute any alcohol or drug abuse patient.[facility] HospitalIn the event this information is protected by the Federal Confidentiality of Alcohol and Drug Abuse Patient Records regulations: The Federal rules restrict any use of the information to criminally investigate or prosecute any alcohol or drug abuse patient.[facility] HospitalIn the event this information is protected by the Federal Confidentiality of Alcohol and Drug Abuse Patient Records regulations: The Federal rules restrict any use of the information to criminally investigate or prosecute any alcohol or drug abuse patient.[facility] HospitalIn the event this information is protected by the Federal Confidentiality of Alcohol and Drug Abuse Patient Records regulations: The Federal rules restrict any use of the information to criminally investigate or prosecute any alcohol or drug abuse patient.[facility] HospitalIn the event this information is protected by the Federal Confidentiality of Alcohol and Drug Abuse Patient Records regulations: The Federal rules restrict any use of the information to criminally investigate or prosecute any alcohol or drug abuse patient.[facility] HospitalIn the event this information is protected by the Federal Confidentiality of Alcohol and Drug Abuse Patient Records regulations: The Federal rules restrict any use of the information to criminally investigate or prosecute any alcohol or drug abuse patient.[facility] HospitalIn the event this information is protected by the Federal Confidentiality of Alcohol and Drug Abuse Patient Records regulations: The Federal rules restrict any use of the information to criminally investigate or prosecute any alcohol or drug abuse patient.[facility] HospitalIn the event this information is protected by the Federal Confidentiality of Alcohol and Drug Abuse Patient Records regulations: The Federal rules restrict any use of the information to criminally investigate or prosecute any alcohol or drug abuse patient.[facility] the event this information is protected by the Federal Confidentiality of Alcohol and Drug Abuse Patient Records regulations: The Federal rules restrict any use of the information to criminally investigate or prosecute any alcohol or drug abuse patient.[facility] HospitalIn the event this information is protected by the Federal Confidentiality of Alcohol and Drug Abuse Patient Records regulations: The Federal rules restrict any use of the information to criminally investigate or prosecute any alcohol or drug abuse patient.[facility] HospitalIn the event this information is protected by the Federal Confidentiality of Alcohol and Drug Abuse Patient Records regulations: The Federal rules restrict any use of the information to criminally investigate or prosecute any alcohol or drug abuse patient.[facility] HospitalIn the event this information is protected by the Federal Confidentiality of Alcohol and Drug Abuse Patient Records regulations: The Federal rules restrict any use of the information to criminally investigate or prosecute any alcohol or drug abuse patient.[facility] HospitalIn the event this information is protected by the Federal Confidentiality of Alcohol and Drug Abuse Patient Records regulations: The Federal rules restrict any use of the information to criminally investigate or prosecute any alcohol or drug abuse patient.[facility] HospitalIn the event this information is protected by the Federal Confidentiality of Alcohol and Drug Abuse Patient Records regulations: The Federal rules restrict any use of the information to criminally investigate or prosecute any alcohol or drug abuse patient.[facility] HospitalIn the event this information is protected by the Federal Confidentiality of Alcohol and Drug Abuse Patient Records regulations: The Federal rules restrict any use of the information to criminally investigate or prosecute any alcohol or drug abuse patient.[facility] HospitalIn the event this information is protected by the Federal Confidentiality of Alcohol and Drug Abuse Patient Records regulations: The Federal rules restrict any use of the information to criminally investigate or prosecute any alcohol or drug abuse patient.[facility] HospitalIn the event this information is protected by the Federal Confidentiality of Alcohol and Drug Abuse Patient Records regulations: The Federal rules restrict any use of the information to criminally investigate or prosecute any alcohol or drug abuse patient.[facility] HospitalIn the event this information is protected by the Federal Confidentiality of Alcohol and Drug Abuse Patient Records regulations: The Federal rules restrict any use of the information to criminally investigate or prosecute any alcohol or drug abuse patient.[facility] HospitalIn the event this information is protected by the Federal Confidentiality of Alcohol and Drug Abuse Patient Records regulations: The Federal rules restrict any use of the information to criminally investigate or prosecute any alcohol or drug abuse patient.[facility] HospitalIn the event this information is protected by the Federal Confidentiality of Alcohol and Drug Abuse Patient Records regulations: The Federal rules restrict any use of the information to criminally investigate or prosecute any alcohol or drug abuse patient.[facility] HospitalIn the event this information is protected by the Federal Confidentiality of Alcohol and Drug Abuse Patient Records regulations: The Federal rules restrict any use of the information to criminally investigate or prosecute any alcohol or drug abuse patient.[facility] Reason for Visit (unrecogniz ed section [...] Comments Results labs Reason Comments Results INR Reason Comments DM Foot Care Dm nail care Reason Comments Dry Eye Care Teams (unrecognized sec tion and content) [...] December 18, 2023 End: December 18, 2023 Food Mixer Repairer Relationship Specialty Start Date End Date Declan Swanson DO PCP - General Internal Medicine 06/04/13 Food Mixer Repairer Relationship Specialty Start Date End Date Declan Swanson DO PCP - General Internal Medicine 06/04/13 Food Mixer Repairer Relationship Specialty Start Date End Date Declan Swanson, DO PCP - General Internal Medicine 06/04/13 Food Mixer Repairer Relationship Specialty Start Date End Date Declan Swanson, DO PCP - General Internal Medicine 06/04/13 Food Mixer Repairer Relationship Specialty Start Date End Date Kiki Declan Coleman, DO PCP - General Internal Medicine 06/04/13 Food Mixer Repairer Relationship Specialty Start Date End Date Kiki Declan [place], DO PCP - General Internal Medicine 06/04/13 Food Mixer Repairer Relationship Specialty Start Date End Date Kiki Declan [place], DO PCP - General Internal Medicine 06/04/13 Food Mixer Repairer Relationship Specialty Start Date End Date Kiki Declan [place], DO PCP - General Internal Medicine 06/04/13 Food Mixer Repairer Relationship Specialty Start Date End Date Kiki Declan [place], DO PCP - General Internal Medicine 06/04/13 Food Mixer Repairer Relationship Specialty Start Date End Date Kiki Declan [place], DO PCP - General Internal Medicine 06/04/13 Team Status: Inactive Member Role Status Dates Declan Swanson DO Primary Care Provider Active Bruce Shine II, MD Attending Provider Active Food Mixer Repairer Relationship Specialty Start Date End Date Declan Swanson DO PCP - General Internal Medicine 06/04/13 Team Status: Inactive Member Role Status Dates Declan Swanson DO Primary Care Provider Active Ruben Celis MD Attending Provider Active Food Mixer Repairer Relationship Specialty Start Date End Date Declan Swanson DO PCP - General Internal Medicine 06/04/13 Food Mixer Repairer Relationship Specialty Start Date End Date Declan Swanson DO PCP - General Internal Medicine 06/04/13 Food Mixer Repairer Relationship Specialty Start Date End Date Declan Swanson DO PCP - General Internal Medicine 06/04/13 Team Status: Inactive Member Role Status Dates Declan Swanson DO Primary Care Provide r, Attending Provider Active Start: June 23, 2023 End: June 23, 2023 Food Mixer Repairer Relationship Specialty Start Date End Date Declan Swanson DO PCP - General Internal Medicine 06/04/13 Food Mixer Repairer Relationship Specialty Start Date End Date Declan [...] August 21, 2023 End: August 21, 2023 Food Mixer Repairer Relationship Specialty Start Date End Date Declan Swanson DO PCP - General Internal Medicine 06/04/13 Food Mixer Repairer Relationship Specialty Start Date End Date Declan Swanson DO PCP - General Internal Medicine 06/04/13 Food Mixer Repairer Relationship Specialty Start Date End Date Declan Swanson DO PCP - General Internal Medicine 06/04/13 Venkat Evans V, MD [address] [place] [address] Primary Staff Physician Cardiology 01/24/24 Food Mixer Repairer Relationship Specialty Start Date End Date Declan Swanson DO PCP - General Internal Medicine 06/04/13 Venkat Evans V, MD [address] [facility] [address] Primary Staff Physician Cardiology 01/24/24 Food Mixer Repairer Relationship Specialty Start Date End Date Declan Swanson DO PCP - General Internal Medicine 06/04/13 Venkat Evans V, MD [address] [place] [address] Primary Staff Physician Cardiology 01/24/24 Food Mixer Repairer Relationship Specialty Start Date End Date Declan Swanson DO PCP - General Internal Medicine 06/04/13 Venkat Evans V, MD [address] [place] [address] Primary Staff Physician Cardiology 01/24/24 Team Status: [...] 2024 End: February 22, 2024 Team Status: Active Member Role Status Dates Ruben Diane MD Attending Provider Active Star t: April 23, 2024 Declan Swanson DO Primary Care Provider Active Start: April 23, 2024 Food Mixer Repairer Relationship Specialty Start Date End Date Declan Swanson DO PCP - General Internal Medicine 06/04/13 Venkat Evans V, MD [address] [facility] [address] Primary Staff Physician Cardiology 01/24/24 Food Mixer Repairer Relationship Specialty Start Date End Date Declan Swanson DO PCP - General Internal Medicine 06/04/13 Venkat Evans V, MD [address] [facility] [address] Primary Staff Physician Cardiology 01/24/24 Team Status: Active Member Role Status Dates Declan Swanson DO Primary Care Provide r, Attending Provider Active Start: June 15, 2024 Team Status: Inactive Member Role Status Dates Declan Swanson DO Primary Care Provider Active Start: July 31, 2024 End: July 31, 2024 Yvan Mercedes MD Attending Provider Activ e Start: July 31, 2024 End: July 31, 2024 Food Mixer Repairer Relationship Specialty Start Date End Date Declan Swanson DO [address] [place] [id number] PCP - General Internal Medicine 08/31/22 Food Mixer Repairer Relationship Specialty Start Date End Date Declan Swanson DO [address] [place] [id number] PCP - General Internal Medicine 08/31/22 Team Status: Inactive Member Role Status Dates Declan Swanson DO Primary Care Provider Active Start: June 12, 2024 End: June 12, 2024 Declan Swanson DO Attending Provider Active Sta rt: June 12, 2024 End: June 12, 2024 Team Status: Active Member Role Status Dates Declan Swanson DO Primary Care Provider Active Start: June 15, 2024 Declan Swanson DO Attending Provider Active Sta rt: June 15, 2024 Team Status: Inactive Member Role Status Dates Declan Swanson DO Primary Care Provider Active Start: September 06, 2024 End: September 06, 2024 Declan Swanson DO Attending Provider Active Sta rt: September 06, 2024 End: September 06, 2024 Tiffany Higgins [facility] Sales And Marketing Analyst Active art: September 06, 2024 End: September 06, 2024 Food Mixer Repairer Relationship Specialty Start Date End Date Declan Swanson DO [place] [address] [place] [address] PCP - General Internal Medicine 08/31/22 Food Mixer Repairer Relationship Specialty Start Date End Date Kiki Declan Coleman DO [address] [place] [id number] PCP - General Internal Medicine 08/31/22 Goals (unrecognized section and content) Goals may [...] BE BASED ON THE PRIMARY CLINICAL RECORDS. [employer] provides no warranty or guarantee of the accuracy or completeness of information in this document.
== END 2024-09-24 07:24 | disposition home or self-care (01) ==
LOC: LAB 07:26
PROVIDERS: PCP Internal Medicine; Visit Provider Internal Medicine
DX: Z12.5 Encounter for screening for malignant neoplasm of prostate (principal); E11.65 Type 2 diabetes mellitus with hyperglycemia
CPT/HCPCS: 36415; 83036; G0103

== ENCOUNTER 2024-09-26 11:28 | Outpatient (OUT) | payer MEDICARE, OTHER, SELFPAY ==
--- OUTSIDE RECORDS SUMMARY | 2024-09-26 11:35 | XMS_ITS | Encounter Summary ---
Author Organization [facility] Address [address] [place] [address] Care Team Providers Care Lift Team Technician Name Role Phone Declan Bruce DO Primary Care Provider [phone] Encounter Details Date Type Department Care Team (Late Contact Info) Description 12/05/2022 Abstract [facility] [address] [facility] [address] [place] [address] Bobby Guzman DPM [address] [facility] [address] [place] [address] Social History Tobacco Use Types Packs/Day Years [...] EDT Procedure Visit [facility] [address] [place] [address] Christopher Peacock DPM [address] [facility] [address] [place] [address] documented as of this encounter Visit Diagnoses Not on filedocumented in this encounter Care Teams Lift Team Technician Relationship Specialty Start Date End Date Declan Bruce DO [address] [place] [address] PCP - General Internal Medicine 08/31/22 documented as of this encounter
--- OUTSIDE RECORDS SUMMARY | 2024-09-26 11:35 | XMS_ITS | Clinical Summary ---
Author Organization [facility] Address [address] [facility] [place] [address] Care Team Providers Care Vitreo Retinal Surgeon Name Role Phone Unavailable Primary Care Provider [...] of Treatment Not on file Insurance [employer]
--- OUTSIDE RECORDS SUMMARY | 2024-09-26 11:35 | XMS_ITS | Encounter Summary ---
Author Organization [facility] Address [address] [place] [address] Care Team Providers Care Press Maintainer Name Role Phone Declan Bruce DO Primary Care Provider [phone] Encounter Details Date Type Department Care Team (Late st Contact Info) Description 08/30/2022 Abstract [facility] [address] [facility] [address] [place] [address] Bobby Guzman DPM [address] [facility] [address] [place] [address] Social History Tobacco Use Types Packs/Day Years [...] EDT Procedure Visit [facility] [address] [place] [address] Christopher Peacock DPM [address] [facility] [address] [place] [address] documented as of this encounter Visit Diagnoses Not on filedocumented in this encounter Care Teams Press Maintainer Relationship Specialty Start Date End Date Declan Bruce DO [address] [place] [id number] PCP - General Internal Medicine 08/31/22 documented as of this encounter
--- OUTSIDE RECORDS SUMMARY | 2024-09-26 11:35 | XMS_ITS | Clinical Summary ---
Author Organization [facility] Address [address] [place] [address] Care Team Providers Care Scrap Piler Name Role Phone Declan Bruce Primary Care Provider [phone] Allergies Active Allergy Reactions Criticality Noted Date [...] [facility] [address] [place] [address] Marshall Lee DO Dry eyes (Primary Dx); Blepharitis of upper and lower eyelids of both eyes, unspecified type 09/10/2024 Bamboo flowsheet [facility] [address] [place] [address] Marshall Lee DO 09/10/2024 Travel 09/02/2024 11:00 AM EDT Office Visit [facility] [address] [place] [address] Christopher Peacock DPM Venous insufficiency (Primary Dx); Pain due to onychomycosis of toenails of both feet 09/02/2024 Bamboo flowsheet [facility] [address] [place] [address] Christopher Peacock DPM from Last 3 Months [...] Upcoming Encounters Date Type Department Care Team ([facility] st Contact Info) Description 12/02/2024 11:20 AM EDT Procedure Visit [facility] [address] [place] [address] Christopher Peacock DPM [address] [address] Health Maintenance Due Date Last Done Comments Influenza Vaccine (#1) 2024 4, 01/25/2022, 12/29/2020, Additional history exists Pneumococcal Vaccine: 65+ Years Completed 4, 11/08/2014 Insurance [employer] Care Teams Scrap Piler Relationship Specialty Start Date End Date Declan Bruce DO [address] [place] [address] PCP - General Internal Medicine 08/31/22
--- OUTSIDE RECORDS SUMMARY | 2024-09-26 11:35 | XMS_ITS | Encounter Summary ---
Author Organization [facility] Address [address] [place] [address] Care Team Providers Care Rn Ortho Name Role Phone Declan Bruce Primary Care Provider [phone] Jaydon Emanuel MD, Garrick Unavailable Source Comments In the event this information is protected by the Federal Confidentiality of Alcohol and Drug AbusePatient Records regulations: The Federal rules restrict any use of the information to criminally investigate or prosecute any alcohol or drug abuse patient.[facility] Encounter Details Date Type Department Care Team (Late st Contact Info) Description 05/29/2024 Telephone Cardiology [address] [place] [address] Ruel Hoang MD [address] [place] [address] [place] [address] Social History Tobacco Use Types Packs/Day [...] is lower risk 7 06/05/2023 Data from: https://www.neighborhoodatlas.[facility].edu/. Last address used for calculation [address] [...] Uploaded FAX with INR lab results from [facility] into scanned documents and EP [address]. Radha IC 955 documented in this encounter Plan of Treatment Not on file documented as of this encounter Goals Goal Patient Goal Type Associated Problems Recent Progress Patient-Stated? Author Blood Pressure < 130/80 Blood Pressure 134/68(2023 12:58 PM EST) No Mary Griffith documented as of this encounter Visit Diagnoses Not on filedocumented in this encounter Care Teams Rn Ortho Relationship Specialty Start Date End Date Declan Bruce DO PCP - General Internal Medicine 06/04/13 Garrick Interiano V, MD [address] [place] [address] Primary Staff Physician Cardiology 01/24/24 documented as of this encounter
--- OUTSIDE RECORDS SUMMARY | 2024-09-26 11:35 | XMS_ITS | Clinical Summary ---
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 Last address used for calculation [address] [place], [place] [address] 06/05/2023 Sex and Gender Information Value Date [...] 04/03/2019 Advance Directive Discussion 03/13/2024 Covid-19 Vaccine (2023-2 5 season) 2024 01/03/2024, 01/20/2021, 06/01/2020, Additional [...] 130/80 Blood Pressure 134/68(2023 12:58 PM EST) Mary Rosales Procedures Procedure Name Priority Date/Time Associated Diagnosis Comments EXTERNAL LAB 07/10/2024 3:51 PM EDT HEMOGLOBIN A1C Routine 09/18/2020 10:28 AM EDT Controlled type 2 diabetes mellitus without complication, without long-term current use of insulin ([facility]) LIPID PANEL, FASTING Routine 09/18/2020 10:28 AM EDT Coronary artery disease involving ramona coronary artery of ramona heart without angina pectoris from Last 3 Months or Most Recently Relevant to Health Maintenance Results * EXTERNAL LAB (07/10/2024 3:51 PM EDT) us External Provider PA-C LABORATORY Final Res ult * LIPID PANEL BASIC (09/18/2020 10:28 AM EDT) Cholesterol, Total 143 <200 mg/dL 09/18/2020 11:17 AM [facility] Triglyceride 83 <150 mg/dL 09/18/2020 11:17 AM [facility] HDL Cholesterol 48 >39 mg/dL 11:17 AM [facility] LDL Cholesterol, Calculated 78 <100 mg/dL 09/18/2020 11:17 AM [facility] Comment: <100 mg/dL, Optimal 100-129 mg/dL, Near optimal/above optimal 130-159 mg/dL, Borderline high 160-189 mg/dL, High >189 mg/dL, Very high Secondary prevention optimal LDL Cholesterol levels are recommended to be < 70 mg/dL Non HDL Cholesterol 95 <130 mg/dL 09/18/2020 11:17 AM [facility] Comment: <130 mg/dL, Optimal 130-159 mg/dL, Near optimal/above optimal 160-189 mg/dL, Borderline high 190-219 mg/dL, High >219 mg/dL, Very high Secondary prevention optimal non HDL Cholesterol levels are recommended to be < 100 mg/dL Fasting Time 10 hrs 09/18/2020 10:30 AM [facility] VLDL Cholesterol 17 <30 mg/dL 09/19/19 11:17 AM [facility] TC:HDL Ratio 2.98 <5.10 09/18/2020 11:17 AM [facility] LDL:HDL Ratio 1.63 <2.54 09/18/2020 11:[address] [facility] Comment: Reference: 1. National Cholesterol Education Program ATP III Guideline At-A-Glance Quick Desk Reference: National Heart, Lung, and Blood [place]. National Institutes of Health. 2001: NIH Publication No. 01-3305. 2. An International Atherosclerosis Society position paper: global recommendations for the management of dyslipidemia: executive summary, Atherosclerosis. 2014: 232(2):410-413. Blood BLOOD SPECIMEN / Unknown 09/18/2020 10:28 AM EDT 09/18/2020 10:30 AM EDT us Garrick Emanuel MD LABORATORY Final Result Performing Organization Address City/[facility]/ZIP Co de Phone Number [facility] [address] [facility] [place] [address], [facility] * (ABNORMAL) HGB A1C (09/18/2020 10:28 AM EDT) Hemoglobin A1C 5.9(H) 4.3 - 5.6 % 09/18/2020 7:34 PM EDT [facility] Comment: [place] Diabetes Association guidelines indicate that patients with HgbA1c in the range 5.7-6.4% are at increased risk for development of diabetes, and intervention by lifestyle modification may be beneficial. HgbA1c greater or equal to 6.5% is considered diagnostic of diabetes. Estimated Average Glucose 123 mg/dL 09/18/2020 7:34 PM EDT [facility] Comment: eAG: (Estimated average glucose) is a calculated value from HgbA1c and is claim service representative of the average blood glucose level in the last 2-3 month period. Blood WHOLE BLOOD SPECIMEN / Unknown 09/18/2020 10:28 AM EDT 09/18/2020 10:30 AM EDT us Garrick Emanuel MD LABORATORY Final Result Performing Organization Address City/[facility]/ZIP Co de Phone Number [facility] [address] [facility] [place] [address] [facility] [address] [place] [address] from Last 3 Months or Most Recently Relevant to Health Maintenance Insurance MEDICARE MMO MEDICARE SUPPLEMENT Care Teams Consumer Safety Officer Relationship Specialty Start Date End Date Declan Bruce DO PCP - General Internal Medicine 06/04/13 Garrick Interiano V, MD [facility] [place] [address] Primary Staff Physician Cardiology 01/24/24
== END 2024-09-26 11:29 | disposition home or self-care (01) ==
LOC: WC 11:30
PROVIDERS: PCP Internal Medicine; Visit Provider Physician Assistant
DX: I87.312 Chronic venous hypertension (idiopathic) with ulcer of left lower extremity (principal); L97.822 Non-pressure chronic ulcer of other part of left lower leg with fat layer exposed
CPT/HCPCS: G0463

== ENCOUNTER 2024-10-11 00:32 | Outpatient (RCR) | payer MEDICARE, OTHER, SELFPAY | END 2024-11-07 12:35 | disposition home or self-care (01) | LOC: MM 00:32 | PROVIDERS: PCP Internal Medicine; Visit Provider Internal Medicine | DX: Z51.81 Encounter for therapeutic drug level monitoring (principal); Z79.01 Long term (current) use of anticoagulants; I48.91 Unspecified atrial fibrillation | CPT/HCPCS: 85610; G0463 ==

== ENCOUNTER 2024-11-06 09:10 | Emergency (ER) | payer MEDICARE, OTHER, SELFPAY ==
[2024-11-06 09:31] VITALS: BP 141/75; PULSE 81; TEMP 36.4; O2SAT 97; BMI 44.1
--- NOTE | 2024-11-06 09:37 | XR_ITS ---
The [address] [address] Patient Name: DEB DAVIS MRN: [id number] date: 1945 Sex: M Assigned Patient Location: ER Current Patient Location: ER Accession/Order Number: [id number] Exam Date: 11/06/2024 09:50 Report Date: 11/06/2024 10:11 At the request of: VANDANA SAHNI DO Procedure: XR knee LT 3V LEFT KNEE - 3 views COMPARISON: None CLINICAL DATA: Left knee pain following fall. Previous knee replacement. AP, lateral and both views were obtained. There is a knee prosthesis. There are long stems and the femoral stem is not included in its entirety. As visualized, the hardware appears intact and in appropriate position. The bony structures are osteopenic. No acute fracture or dislocation is identified. There is no significant knee effusion. Atherosclerotic disease is seen. XR/XR knee LT 3V IMPRESSION: KNEE REPLACEMENT, DESCRIBED. NO ACUTE BONY INJURY. Impression dictated by: Audrey Mcarthur M.D. 11/06/2024 10:11 AM [facility] Electron[facility] authenticated by: [id number] Y Date: 11/06/2024 10:11
--- NOTE | 2024-11-06 09:37 | CT_ITS ---
The [address] [address] Patient Name: DEB DAVIS MRN: [id number] date: 1945 Sex: M Assigned Patient Location: ED.MAIN Current Patient Location: Accession/Order Number: [id number] Exam Date: 11/06/2024 09:45 Report Date: 11/06/2024 10:06 At the request of: VANDANA SAHNI DO Procedure: CT head/brain wo con CT BRAIN WITHOUT CONTRAST: CLINICAL HISTORY: Fall on blood thinners. Laceration about the left thigh COMPARISON: 03/16/2023 TECHNIQUE: Contiguous axial unenhanced images were obtained through the brain. This CT exam was performed using one or more following dose reduction techniques: Automated exposure control, adjustment of the mA and/or kV according to patient size, or use of iterative reconstruction technique. FINDINGS: There is generalized atrophy. The ventricles are stable in size and position. There is normal variant cavum septum pellucidum/vergae Microvascular changes are noted. There are no additional areas of abnormal attenuation. There is no hemorrhage, mass effect or extra-axial collections. The calvarium is intact. The imaged paranasal sinuses and mastoid air cells are clear. There is carotid siphon plaque. CT/CT head/brain wo con IMPRESSION: ATROPHY AND SMALL VESSEL ISCHEMIC CHANGES. NO ACUTE INTRACRANIAL TRAUMA. Impression dictated by: Audrey Mcarthur M.D. 11/06/2024 10:06 AM Dictation Location: [place] [address] Electronically authenticated by: [id number] Y Date: 11/06/2024 10:06
--- OUTSIDE RECORDS SUMMARY | 2024-11-06 09:37 | XMS_ITS | CCD ---
Author Organization [facility] Care Team Providers Care Estimate Clerk Name Role Phone Declan Swanson DO Primary Care Provider Bruce Shine II Unavailable [phone] Declan Swanson DO Primary Care Provider Declan [...] Provider MD Bruce Shine II Attending Provider [phone] Ruben Celis Unavailable MD Ruben Celis Attending Provider Declan Swanson DO Primary Care Provider Jaydon Emanuel MD, Venkat Unavailable VENKAT EVANS Referring Unavailable DECLAN SWANSON Primary Care Unavailable VENKAT EVANS Referring Unavailable DECLAN SWANSON Primary Care Unavailable Ruben Diane MD Attending Provider Declan Swanson DO Primary Care Provider Ruben Diane MD Attending Provider Declan Swanson DO Primary Care Provider Ruben Diane Admitting Unavailable Ruben Diane Attending Unavailable Declan Swanson Primary Care Unavailable Yvan Mercedes Admitting Clotilde Mercedes, Yvan Waggoner Attending Declan Fontanez Primary Care Unavailable Declan Swanson DO Primary Care Provider Yvan Mercedes MD Attending Provider Ball DO, Declan E Primary Care Provider Declan Swanson DO Primary Care Provider [phone] Declan Swanson DO Attending Provider Yvan Mercedes MD Attending Provider CHRISTOPHER TREVIZO Attending Unavailable JOHN CHURCHILL Attending Unavailable JOHN CHURCHILL Attending Unavailable DECLAN SWANSON Primary Care Unavailable ALIX BARRIOS Attending Unavailable VENKAT EVANS Referring Unavailable VENKAT EVANS Attending Unavailable DECLAN SWANSON Primary Care Unavailable VENKAT EVANS Referring Unavailable DECLAN SWANSON Primary Care Unavailable Allergies Allergy Classification Reported Allergen(s) Allergy Type Date of Onset Reaction(s) Facility (20 sources) Latex Drug allergy 4 Unknown, Unknown Reaction [facility] (20 sources) Iodinated contrast media (substance) Drug allergy 4 Unknown [facility] Work Phone: (9 sources) Iodinated Contrast Media; 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: [Iodinated Contrast Media] Allergy to substance 4 Unknown Reaction [facility] (1 source) Latex Drug allergy (disorder) 5 [facility] Repository (5 sources) Latex Allergy to substance [...] Active Start: 11-04-2022 take 1 capsule by [facility] every twelve hours Cephalexin 500 MG 1 [...] Active Start: 01-02-2023 take 1 capsule by [facility] every twelve hours Doxycycline Hyclate 100 MG 1 capsule Orally Twice a day for 5 days Dec, Active empagliflozin 10 mg oral tablet (11 sources) Sodium-Glucose Cotransporter 2 Inhibitor Start: 12-08-2023 take 1 tablet by mouth once daily at breakfast empagliflozin (JARDIANCE) 10 mg tablet Take 1 tablet by mouth daily with breakfast. 90 tablet 3 12/08/2023 Active furosemide 40 mg oral tablet (20 sources) Loop Diuretic Start: 01-25-2024 End: 07-31-2024 take 1 tablet by mouth once daily Furosemide 40 mg tablet Discontinued 0 .ROUTE .COMPLEX January 25, 2024 3:21pm July 31, 2024 1:00pm Take 1 tablet by mouth once daily Start: 05-04-2017 End: 01-25-2024 take 1 tablet by mouth once daily Furosemide 40 mg tablet Active 40 MG PO Daily July 31, 2024 12:59pm Complies with drug therapy Start: 12-16-2016 End: 05-04-2017 take 1 tablet by mouth once daily Furosemide 20 mg tablet Discontinued 20 MG PO Daily December 16, 2016 12:00am May 04, 2017 1:03pm Comment on above: Take 1 tablet by rod th once daily. hydrocortisone 25 mg/ml topical cream [...] extended release Discontinued 20 MEQ PO Daily 90 August 30, 2023 12:04pm July 25, 2024 7:41am Start: 07-25-2015 take 1 tablet by rod th once daily potassium chloride ER (K-DUR, KLOR-CON) 20 mEq tablet Take 1 tablet by mouth once daily. 30 tablet 6 07/25/2015 Active take 20 mEq by mouth in the morning potassium chloride (Klor-Con) 20 MEQ packet Take 20 mEq by mouth in the morning and 20 mEq before bedtime. Active Comment on above: Take 1 tablet by rod th once daily. pravastatin sodium 80 mg oral tablet (20 sources) HMG-CoA Reductase Inhibitor Start: 6 End: 4 take 1 tablet by mouth once daily at bedtime pravastatin (PRAVACHOL) 80 mg tablet Take 1 tablet by mouth daily at bedtime. 90 tablet 3 06/09/2015 Active Comment on above: Take 1 tablet by rod th daily at bedtime. predniSONE 20 mg oral tablet (17 sources) Start: End: 4 predniSONE (Deltasone) 20 MG tablet As Directed [...] 2020 12:47pm take 4 tablets by mo [facility] once daily warfarin (COUMADIN) 1 mg tablet [...] (16 sources) Factor Xa Inhibitor Start: End: 3 take 1 tablet by mouth twice daily Apixaban (Eliquis) 5 mg tablet Discontinued 5 MG PO Twice daily August 17, 2020 12:00am December 13, 2022 8:45am Comment on above: Take 1 tablet by [facility] twice daily. aspirin 81 mg delayed release [...] 2020 12:45pm take 2 tablets by mo [facility] in the morning hydroCHLOROthiazide (HYDRODiuril) 25 MG [...] 500 mg by mouth daily with breakfast. 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 angina pectoris] Onset: 07-10-2015 [...] aftercare (10 sources) Patient encounter status; Translations: [bundle helper (current) use of anticoagulants] Episodic Comment on above: PSA: 04.05 Other aftercare (4 sources) bundle helper (current) use of anticoagulants; Translations: [Long-term (current) use of anticoagulants] Onset: 08-10-2022 02-22-2024 Episodic Other aftercare (5 sources) Encounter for therapeutic drug level monitoring; Translations: [ENC THERAPEUTC DRUG LEVL MONITORING] Onset: 07-09-2022 Episodic Other aftercare (2 sources) Other flower cheniller (current) drug therapy Episodic Other aftercare (1 source) Drug therapy finding; Translations: [bundle helper (current) use of anticoagulants] 07-04-2023 Episodic Other aftercare (6 sources) Anticoagulant effect; Translations: [bundle helper (current) use of anticoagulants] 02-22-2024 Episodic Other [...] 14mm Right - 12/2019CT: 15mm R - 2/1CT: 13mm R - 8/T: 11.6mm R - 7/T: 12mm - 08/2022 [...] and visceral atherosclerosis (20 sources) 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 Radha IC [phone] Allergies As of Date: 10/30/2024 (No Known Allergies) Date Reviewed: 02/13/2024 Reviewed by: Emeli Lui [facility] - Fully Assessed Prescriptions as of 10/31/2024 - empagliflozin (JARDIANCE) 10 mg tablet Take [...] once daily. Problem List As Of Date 10/30/2024 Noted Resolved CHRISTIAN (obstructive sleep apnea) [G47.33] 01/07/2014 HTN (hypertension) [I10] 01/07/2014 Dyslipidemia [E78.5] 01/07/2014 Atrial fibrillation (HCC) [I48.91] 07/08/2014 Atherosclerosis of jamul coronary artery of na*07/10/2015 Diabetes mellitus type 2, controlled, without c*07/10/2015 Atrial fibrillation, persistent (HCC) [I48.19] 07/22/2015 Paroxysmal atrial fibrillation (HCC) [I48.0] 12/04/2015 Paroxysmal atrial flutter (HCC) [I48.92] 05/30/2018 Obesity, Class III, BMI >= 40 [E66.813] 10/23/2019 Chronic diastolic heart failure (HCC) [I50.32] 06/05/2023 Mixed hyperlipidemia [E78.2] 06/05/2023 Encounter Status:Closed by FRANCESCO ROBERTS on 10/31/[address] [facility] FPG ECG *CARDIOLOGY ONLY*on 07-31-2024 FPG ECG *CARDIOLOGY ONLY* [facility] Main [place] [address] [place] [address] Electrocardiograph Report Signed Patient: Jorge Davis MR#: [id number] 14 : 1945 Acct:[id number] Age/Sex: 79 / M ADM Date: 07/31/24 Loc: [facility] Room: Type: [facility] Attending Dr: Yvan Mercedes MD Ordering Provider: Yvna Mercedes MD Date of Service: 07/31/24 ECG/FPG [...] undetermined Abnormal ECG Confirmed by Yvan Mercedes ([id number]) on 07/31/2024 2:59:00 PM Referred By: Electronically Signed By: Yvan Mercedes Transcribed By: MUS Signed By Yvan Mercedes MD 07/31/24 1459 Normal [facility] 06-26-2024 [facility] Telephone ([place]) JORGE DAVIS ([id number]) 1945 M Date Time Provider Department 06/26/24 RUBEN DENTON During your visit today, we recorded the following information about you: Radha Gates 06/26/2024 9:07 AM Signed Uploaded INR lab results FAX into scanned documents and EP [employer] [address]. Radha IC [phone] Radha Gates 07/10/2024 3:52 PM Signed Uploaded INR results form [facility] FAX into scanned documents and EP shared drive. Radha IC [phone] Allergies As of Date: 06/26/2024 [...] Atrial fibrillation (HCC) [I48.91] 07/08/2014 Atherosclerosis of jamul coronary artery of na*07/10/2015 Diabetes mellitus type 2, controlled, without c*07/10/2015 Atrial fibrillation, persistent (HCC) [I48.19] 07/22/2015 Paroxysmal atrial fibrillation (HCC) [I48.0] 12/04/2015 Paroxysmal atrial flutter (HCC) [I48.92] 05/30/2018 Obesity, Class III, BMI >= 40 [E66.813] 10/23/2019 Chronic diastolic heart failure (HCC) [I50.32] 06/05/2023 Mixed hyperlipidemia [E78.2] 06/05/2023 Encounter Status:Closed by RADHA GATES on 07/11/[address] [facility] Basophils Auto (Bld) [#/Vol] on 06-15-2024 Basophils (Bld) [#/Vol] Automated basophil count 0.0-0.1 [facility] Basophils (Bld) [#/Vol] 0.1 10 3/uL 0.0-0.1 [facility] Basophils/100 WBC Auto (Bld) on 06-15-2024 Basophils/100 WBC (Bld) Automated basophil % 0.2-2.0 [facility] Basophils/100 WBC (Bld) 1.0 % 0.2-2.0 [facility] Cholesterol in LDL Calc [Mas s/Vol]on 06-15-2024 Cholesterol in LDL [Mass/Vol] Cholesterol in LDL [Mass/volume] in Serum or Plasma by calculation [facility] Comment on above: <100 mg/dl [id number] 0-129 mg/dl NEAR OR ABOVE [id number] mg/dl BORDERLINE [id number] mg/dl HIGH>190 mg/dl VERY HIGH Cholesterol in LDL [Mass/Vol] 58.0 mg/dL [facility] Comment on above: <100 mg/dl [id number] 0-129 mg/dl NEAR OR ABOVE [id number] mg/dl BORDERLINE [id number] mg/dl HIGH>190 mg/dl VERY HIGH Cholesterol in VLDL Calc [Ma ss/Vol]on 06-15-2024 Cholesterol in VLDL [Mass/Vol] Cholesterol in VLDL [Mass/volume] in Serum or Plasma by calculation [facility] Cholesterol in VLDL [Mass/Vol] 10.0 mg/dL [facility] Eosinophils/100 WBC Auto (Bl d)on 06-15-2024 Eosinophils/100 WBC (Bld) Automated eosinophil % 0.9-7.0 [facility] Eosinophils/100 WBC (Bld) 1.3 % 0.9-7.0 [facility] Erythrocyte distribution wid th Auto (RBC) [Ratio]on 06-15-2024 Erythrocyte distribution width (RBC) [Ratio] Erythrocyte distribution width [Ratio] by Automated count High 11.0-15.0 [facility] Erythrocyte distribution width (RBC) [Ratio] 15.7 % High 11.0-15.0 [facility] Estimated glomerular filtrat ion rate (GFR) non- Americanon 06-15-2024 GFR/1.73 sq M.predicted among non-blacks MDRD (S/P/Bld) [Vol rate/Area] Estimated glomerular filtration rate (GFR) non- >=60 mL/min/1.73m 2 [facility] GFR/1.73 sq M.predicted among non-blacks MDRD (S/P/Bld) [Vol rate/Area] mL/min/{1.73_m2} >=60 mL/min/1.73m 2 [facility] Globulin Calc (S) [Mass/Vol] on 06-15-2024 Globulin (S) [Mass/Vol] Serum globulin measurement by calculation (mass/volume) [facility] Globulin (S) [Mass/Vol] 4.1 g/dL [facility] Glucose mean value [Mass/vol ume] in Blood Estimated from glycated hemoglobinon 06-15-2024 Average glucose Estimated from glycated hemoglobin (Bld) [Mass/Vol] Glucose mean value [Mass/volume] in Blood Estimated from glycated hemoglobin [facility] Average glucose Estimated from glycated hemoglobin (Bld) [Mass/Vol] 134 mg/dL [facility] Hematocrit Auto (Bld) [Volum e fraction]on 06-15-2024 Hematocrit (Bld) [Volume fraction] Hematocrit [Volume Fraction] of Blood by Automated count 42.0-54.0 [facility] Hematocrit (Bld) [Volume fraction] 48.0 % 42.0-54.0 [facility] Hemoglobin A1c percentageon 06-15-2024 HbA1c (Bld) [Mass fraction] Hemoglobin A1c percentage High 4.5-6.2 [facility] Comment on above: ADA RECOMMENDED LIMI T 4.0 - 6.0ADA THERAPEUTIC TARGET < 7.0ACTION SUGGESTED> 7.0 HbA1c (Bld) [Mass fraction] 6.3 % High 4.5-6.2 [facility] Comment on above: ADA RECOMMENDED LIMI T 4.0 - 6.0ADA THERAPEUTIC TARGET < 7.0ACTION SUGGESTED> 7.0 Hemoglobin [Mass/volume] in Bloodon 06-15-2024 Hemoglobin (Bld) [Mass/Vol] Hemoglobin [Mass/volume] in Blood 14.0-18.0 [facility] Hemoglobin (Bld) [Mass/Vol] 15.1 g/dL 14.0-18.0 [facility] Laboratory - Chemistry and C hemistry - challengeon 06-15-2024 Albumin [Mass/Vol] 3.8 g/dL 3.4-5.0 [facility] ALP [Catalytic activity/Vol] 106 U/L 46-116 [facility] ALT [Catalytic activity/Vol] 18 U/L 16-63 [facility] AST [Catalytic activity/Vol] 19 U/L 15-37 [facility] Bilirubin [Mass/Vol] 0.9 mg/dL 0.2-1.0 [facility] Calcium [Mass/Vol] 9.1 mg/dL 8.5-10.1 [facility] Chloride [Moles/Vol] 103 mmol/L 98-107 [facility] Cholesterol [Mass/Vol] 124 mg/dL <=200 [facility] Cholesterol in HDL [Mass/Vol] 56 mg/dL 40-60 [facility] Comment on above: > or =60 mg/dl - LOW CARDIOVASCULAR RISK<40 mg/dl - HIGH CARDIOVASCULAR RISK CO2 [Moles/Vol] 30.1 mmol/L 21.0-32.0 [facility] Creatinine [Mass/Vol] 0.85 mg/dL 0.70-1.30 [facility] GFR/1.73 sq M.predicted MDRD (S/P/Bld) [Vol rate/Area] mL/min/{1.73_m2} >=60 mL/min/1.73m 2 [facility] Glucose [Mass/Vol] 108 mg/dL High 74-106 [facility] Potassium [Moles/Vol] 3.9 mmol/L 3.5-5.1 [facility] Protein [Mass/Vol] 7.9 g/dL 6.4-8.2 [facility] Sodium [Moles/Vol] 142 mmol/L 136-145 [facility] Triglyceride [Mass/Vol] 50 mg/dL <=150 [facility] Urea nitrogen [Mass/Vol] 15.0 mg/dL 7.0-18.0 [facility] Urea nitrogen/Creatinine [Mass ratio] 17.6 mg/mg [facility] Laboratory - Hematology and Cell countson 06-15-2024 Immature granulocytes/100 WBC (Bld) 0.3 % 0.0-0.5 [facility] Leukocytes [#/volume] correc jossue for nucleated erythrocytes in Blood by Automated counon 06-15-2024 WBC corrected for nucl RBC Auto (Bld) [#/Vol] Leukocytes [#/volume] corrected for nucleated erythrocytes in Blood by Automated coun 4.0-11.0 [facility] WBC corrected for nucl RBC Auto (Bld) [#/Vol] 7.1 10 3/uL 4.0-11.0 [facility] Lymphocytes Auto (Bld) [#/Vo l]on 06-15-2024 Lymphocytes (Bld) [#/Vol] Lymphocytes [#/volume] in Blood by Automated count 1.2-3.8 [facility] Lymphocytes (Bld) [#/Vol] 2.0 10 3/uL 1.2-3.8 [facility] Lymphocytes/100 WBC Auto (Bl d)on 06-15-2024 Lymphocytes/100 WBC (Bld) Lymphocytes/100 leukocytes in Blood by Automated count 20.5-60.0 [facility] Lymphocytes/100 WBC (Bld) 27.8 % 20.5-60.0 [facility] MCH Auto (RBC) [Entitic mass ]on 06-15-2024 MCH (RBC) [Entitic mass] MCH [Entitic mass] by Automated count 25.9-34.0 [facility] MCH (RBC) [Entitic mass] 28.8 pg 25.9-34.0 [facility] MCHC Auto (RBC) [Mass/Vol]on 06-15-2024 MCHC (RBC) [Mass/Vol] MCHC [Mass/volume] by Automated count 29.9-35.2 [facility] MCHC (RBC) [Mass/Vol] 31.5 g/dL 29.9-35.2 [facility] MCV Auto (RBC) [Entitic vol] on 06-15-2024 MCV (RBC) [Entitic vol] MCV [Entitic volume] by Automated count 80.0-94.0 [facility] MCV (RBC) [Entitic vol] 91.4 fL 80.0-94.0 [facility] Microalbumin [Mass/volume] i n Urineon 06-15-2024 Albumin DL <= 20 mg/L (U) [Mass/Vol] Microalbumin [Mass/volume] in Urine High <=30.0 [facility] Albumin DL <= 20 mg/L (U) [Mass/Vol] 60.3 mg/dL High <=30.0 [facility] Monocytes Auto (Bld) [#/Vol] on 06-15-2024 Monocytes (Bld) [#/Vol] Automated blood monocyte count 0.3-0.8 [facility] Monocytes (Bld) [#/Vol] 0.6 10 3/uL 0.3-0.8 [facility] Monocytes/100 WBC Auto (Bld) on 06-15-2024 Monocytes/100 WBC (Bld) Automated monocyte % 1.7-12.0 [facility] Monocytes/100 WBC (Bld) 9.0 % 1.7-12.0 [facility] Neutrophils Auto (Bld) [#/Vo l]on 06-15-2024 Neutrophils (Bld) [#/Vol] Neutrophils [#/volume] in Blood by Automated count 1.4-6.5 [facility] Neutrophils (Bld) [#/Vol] 4.3 10 3/uL 1.4-6.5 [facility] Neutrophils/100 WBC Auto (Bl d)on 06-15-2024 Neutrophils/100 WBC (Bld) Automated neutrophil % 43.0-75.0 [facility] Neutrophils/100 WBC (Bld) 60.6 % 43.0-75.0 [facility] No Panel Informationon 06-15 Eosinophils # (Auto) 0.1 10 3/uL 0.0-0.7 [facility] Immature Granulocyte # (Auto) 0.02 10 3/uL 0.00-0.03 [facility] Urine Random Creatinine 146.61 mg/dL 20.00-300.00 [facility] Platelet mean volume Auto (B ld) [Entitic vol]on 06-15-2024 Platelet mean volume (Bld) [Entitic vol] Platelet mean volume [Entitic volume] in Blood by Automated count 9.5-13.5 [facility] Platelet mean volume (Bld) [Entitic vol] 10.4 fL 9.5-13.5 [facility] Platelets Auto (Bld) [#/Vol] on 06-15-2024 Platelets (Bld) [#/Vol] Platelets [#/volume] in Blood by Automated count 150-450 [facility] Platelets (Bld) [#/Vol] 197 10 3/uL 150-450 [facility] RBC Auto (Bld) [#/Vol]on RBC (Bld) [#/Vol] Erythrocytes [#/volume] in Blood by Automated count 4.70-6.10 [facility] RBC (Bld) [#/Vol] 5.25 10 6/uL 4.70-6.10 [facility] Serum or plasma albumin/glob ulin mass ratioon 06-15-2024 Albumin/Globulin [Mass ratio] Serum or plasma albumin/globulin mass ratio [facility] Albumin/Globulin [Mass ratio] 0.9 {ratio} [facility] Serum or plasma anion gap de terminationon 06-15-2024 Anion gap [Moles/Vol] Serum or plasma an ion gap determination [facility] Anion gap [Moles/Vol] 12.8 mmol/L Fi [facility] Serum or plasma total choles terol/high density lipoprotein (HDL) cholesterol mass bianca 06-15-2024 Cholesterol.total/Cho lesterol in HDL [Mass ratio] Serum or plasma total cholesterol/high density lipoprotein (HDL) cholesterol mass rat [facility] Comment on above: 3.3 - 4.4 LOW RISK4. 4 - 7.1 AVERAGE RISK7.1 - 11.0 MODERATE RISK>11.0 HIGH RISK Cholesterol.total/Cho lesterol in HDL [Mass ratio] 2.2 {ratio} [facility] Comment on above: 3.3 - 4.4 LOW RISK4. 4 - 7.1 AVERAGE RISK7.1 - 11.0 MODERATE RISK>11.0 HIGH RISK Urine microalbumin/creatinin e mass ratioon 06-15-2024 Albumin/Creatinine DL <= 20 mg/L (U) [Mass ratio] Urine microalbumin/creatini ne mass ratio High 0.0-29.9 [facility] Comment on above: NO MICROALBUMINURIA 0-29 MG/GCLINICAL MICROALBUMINURIA 30-300 MG/GMACROALBUMINURIA >300 MG/G Albumin/Creatinine DL <= 20 mg/L (U) [Mass ratio] 411.2 mg/g High 0.0-29.9 [facility] Comment on above: NO MICROALBUMINURIA 0-29 MG/GCLINICAL MICROALBUMINURIA 30-300 MG/GMACROALBUMINURIA >300 MG/G CNPNon 05-01-2024 CNPN Telephone (CARDMN) JORGE DAVIS ([id number]) 1945 M Date Time Provider Department 05/01/24 RUBEN DENTONMS During your visit today, we recorded the following information about you: Radha Gates 05/01/2024 3:33 PM Signed Uploaded LAB results (INR) FAX into scanned documents and [employer]Apps drive. Radha IC 955 Allergies As of [...] Atrial fibrillation (HCC) [I48.91] 07/08/2014 Atherosclerosis of jamul coronary artery of na*07/10/2015 Diabetes mellitus type 2, controlled, without c*07/10/2015 Atrial fibrillation, persistent (HCC) [I48.19] 07/22/2015 Paroxysmal atrial fibrillation (HCC) [I48.0] 12/04/2015 Paroxysmal atrial flutter (HCC) [I48.92] 05/30/2018 Obesity, Class III, BMI >= 40 [E66.813] 10/23/2019 Chronic diastolic heart failure (HCC) [I50.32] 06/05/2023 Mixed hyperlipidemia [E78.2] 06/05/2023 Encounter Status:Closed by RADHA GATES on 07/11/24 [facility] X-ray reportOrdered By: Bobby Gonzalez on 04-23-2024 Study report [facility] [address] [place] [address] XRay Report Signed Patient: Jorge Davis MR#: [id number] : 1945 Acct:[id number] Age/Sex: 79 / M ADM Date: 5 Loc: [facility] Room: Type: [facility] Attending Dr: Ruben Diane MD Copies [...] 9:46 AM Dictation Location: RADIO-PC-16 Transcribed By: JENNIFER 04/23/24945 Dictated By: Lucas Gonzalez DO 04/23/24931 Signed By: 04/23/24945 [facility] XR hand LT min 3V*on 025 XR hand LT min 3V* [facility] [address] [place] [address] XRay Report Signed Patient: Jorge Davis MR#: [id number] 14 : 1945 Acct:[id number] Age/Sex: 79 / M ADM Date: 04/23/24 Loc: [facility] Room: Type: [facility] Attending Dr: Ruben Diane MD Copies [...] IMPRESSION: Moderate degenerative changes. Impression dictated by: Lucsa Gonzalez M.D.04/23/2024 9:46 AM Dictation Location: RADIO-PC-16 Transcribed By: JENNIFER 04/23/24945 Dictated By: Lucas Gonzalez DO 04/23/24931 Signed By: 04/23/24945 Normal [facility] 04-03-2024 JOSE Telephone (CARDMN) JORGE DAVIS ([id number]) 1945 M Date Time Provider Department 04/03/24 RUBEN DENTON During your visit today, we recorded the following information about you: Radha Gates 04/03/2024 11:53 AM Signed Uploaded INR results from [facility] FAX into scanned documents and RxApps drive. Radha IC 955 Allergies As of [...] Atrial fibrillation (HCC) [I48.91] 07/08/2014 Atherosclerosis of jamul coronary artery of na*07/10/2015 Diabetes mellitus type 2, controlled, without c*07/10/2015 Atrial fibrillation, persistent (HCC) [I48.19] 07/22/2015 Paroxysmal atrial fibrillation (HCC) [I48.0] 12/04/2015 Paroxysmal atrial flutter (HCC) [I48.92] 05/30/2018 Obesity, Class III, BMI >= 40 [E66.01] 10/23/2019 Chronic diastolic heart failure (HCC) [I50.32] 06/05/2023 Mixed hyperlipidemia [E78.2] 06/05/2023 Encounter Status:Closed by RADHA GATES on 04/05/24 [facility] CNPScarlett 02-21-2024 CNPN Telephone (CARDMN) JORGE DAVIS ([id number]) 1945 [facility] Date Time Provider Department 02/21/24 RUBEN DENTON During your visit today, we recorded the following information about you: Radha Gates 02/21/2024 1:49 PM Signed Received LAB results. Uploaded to scanned documents and [employer]. -Radha IC 955 Alisha Gomez RN 02/21/2024 [...] Atrial fibrillation (HCC) [I48.91] 07/08/2014 Atherosclerosis of jamul coronary artery of na*07/10/2015 Diabetes mellitus type 2, controlled, without c*07/10/2015 Atrial fibrillation, persistent (HCC) [I48.19] 07/22/2015 Paroxysmal atrial fibrillation (HCC) [I48.0] 12/04/2015 Paroxysmal atrial flutter (HCC) [I48.92] 05/30/2018 Obesity, Class III, BMI >= 40 [E66.01] 10/23/2019 Chronic diastolic heart failure (HCC) [I50.32] 06/05/2023 Mixed hyperlipidemia [E78.2] 06/05/2023 Encounter Status:Closed by ALISHA GOMEZ on 02/21/24 [facility] Luis 02-13-2024 CNOV Office Visit (DELVIS ) JORGE DAVIS ([id number]) 1945 [facility]* Date Time Provider Department 02/13/24 1:00 PM ALIX BARRIOS During your visit today, we recorded the following information about you: Pulse Blood pressure Weight 66/minute 134/68 120.2 kg Alix Barrios APRN.MEDIA RELATIONS INTERN 02/13/2024 2:49 PM Signed [facility] [place] [facility] Department of Cardiovascular Medicine SECTION OF CLINICAL CARDIOLOGY OUTPATIENT VISIT DATE February 13, 2024 OUTPATIENT VISIT TYPE ESTABLISHED PRIMARY CARE PHYSICIAN: Declan Swanson ([place]) [address] [id number] REFERRING PHYSICIAN: No referring provider defined for [...] Continue staitn 5. Coronary artery disease involving jamul coronary artery of jamul heart without angina pectoris - ICD9: 414.01, [...] Acrominoplasty Ri (more content not included)... Normal [facility] NT-proBNP SerPl-mCncon 02-12 Natriuretic peptide.B prohormone N-Terminal [Mass/Vol] 2044 pg/mL High <450 [facility] Comment on above: Order Comment: Speci men Type: BLOOD SPECIMEN [facility] Address: [address] [place] [address] Performed By: #### 3 3762-6 #### [facility] CLIA [id number] [facility] [address] [address] [place] Natriuretic peptide.B prohor gerson N-Terminal [Mass/volume] in Serum or Plasmaon 02-13-2024 Natriuretic peptide.B prohormone N-Terminal [Mass/Vol] Natriuretic peptide.B prohormone N-Terminal [Mass/volume] in Serum or Plasma High <450 [facility] CNPNon 02-07-2024 CNPN Telephone (CARDMN) JORGE DAVIS ([id number]) 1945 [facility]* Date Time Provider Department 02/07/24 RUBEN DENTON During your visit today, we recorded the following information about you: Radha Gates 02/07/2024 2:52 PM Signed Received faxed LAB results. Uploaded to scanned documents and [employer]. -Joselyn Cline RN 02/09/2024 7:55 AM [...] Atrial fibrillation (HCC) [I48.91] 07/08/2014 Atherosclerosis of jamul coronary artery of na*07/10/2015 Diabetes mellitus type 2, controlled, without c*07/10/2015 Atrial fibrillation, persistent (HCC) [I48.19] 07/22/2015 Paroxysmal atrial fibrillation (HCC) [I48.0] 12/04/2015 Paroxysmal atrial flutter (HCC) [I48.92] 05/30/2018 Obesity, Class III, BMI >= 40 [E66.01] 10/23/2019 Chronic diastolic heart failure (HCC) [I50.32] 06/05/2023 Mixed hyperlipidemia [E78.2] 06/05/2023 Encounter Status:Closed by JOSELYN MACEDO on 02/09/24 [facility] Scooter 01-24-2024 JOSE Telephone (CARDMN) JORGE DAVIS ([id number]) 1945 [employer] Date Time Provider Department 01/24/24 RUBEN DENTON During your visit today, we recorded the following information about you: Radha Gates 01/24/2024 2:58 PM Signed Received INR LAB results from [facility]. Uploaded to [employer]/ [employer] and [employer] drive. -Radha IC 955 Alisha Gomez RN 01/24/2024 [...] Atrial fibrillation (HCC) [I48.91] 07/08/2014 Atherosclerosis of jamul coronary artery of na*07/10/2015 Diabetes mellitus type 2, controlled, without c*07/10/2015 Atrial fibrillation, persistent (HCC) [I48.19] 07/22/2015 Paroxysmal atrial fibrillation (HCC) [I48.0] 12/04/2015 Paroxysmal atrial flutter (HCC) [I48.92] 05/30/2018 Obesity, Class III, BMI >= 40 [E66.01] 10/23/2019 Chronic diastolic heart failure (HCC) [I50.32] 06/05/2023 Mixed hyperlipidemia [E78.2] 06/05/2023 Encounter Status:Closed by ALISHA GOMEZ on 01/24/24 [facility] CNPNon 12-19-2023 CNPN Telephone (CAEPAV) RYANJORGE W ([id number]) 1945 [facility] [employer] Date Time Provider Department 12/19/23 VENKAT [...] is requesting change to Susana instead of Entiat. Will contact us if no improvement. Venkat Evans V, MD P Avw Card Nurse; P Avw Card Experience Design Director Tell pt pro bnp is high suggesting [...] Spoke to , rescheduled with Alix in [place]. now asking about BNP lab for next [...] Atrial fibrillation (HCC) [I48.91] 07/08/2014 Atherosclerosis of jamul coronary artery of na*07/10/2015 Diabetes mellitus type 2, controlled, without c*07/10/2015 Atrial fibrillation, persistent (HCC) [I48.19] 07/22/2015 Paroxysmal atrial fibrillation (HCC) [I48.0] 12/04/2015 Paroxysmal atrial flutter (HCC) [I48.92] 05/30/2018 Obesity, Class III, BMI >= 40 [E66.01] 10/23/2019 Chronic diastolic heart failure (HCC) [I50.32] 06/05/2023 Mixed hyperlipidemia [E78.2] 06/05/2023 Encounter Status:Closed by CLAIRE CALLEJAS on 10/8/24 [facility] 12-12-2023 CNPN Telephone (CARDMN) JORGE DAVIS ([id number]) 1945 [employer] [employer]* Date Time Provider Department 12/12/23 RUBEN DENTON During your visit today, we recorded the following information about you: Bryan Dwyer 12/12/2023 2:58 PM Signed Documentation scanned into EP outside database Scanned INR report into [employer] Allergies As of Date: 12/12/2023 (No Known Allergies) Date Reviewed: 12/08/2023 Reviewed by: Venkat Evans V, MD - Fully Assessed Reason for Visit: Received Outside Medical Records [[id number]] Prescriptions as of 12/12/2023 - empagliflozin (JARDIANCE) [...] Atrial fibrillation (HCC) [I48.91] 07/08/2014 Atherosclerosis of jamul coronary artery of na*07/10/2015 Diabetes mellitus type 2, controlled, without c*07/10/2015 Atrial fibrillation, persistent (HCC) [I48.19] 07/22/2015 Paroxysmal atrial fibrillation (HCC) [I48.0] 12/04/2015 Paroxysmal atrial flutter (HCC) [I48.92] 05/30/2018 Obesity, Class III, BMI >= 40 [E66.01] 10/23/2019 Chronic diastolic heart failure (HCC) [I50.32] 06/05/2023 Mixed hyperlipidemia [E78.2] 06/05/2023 Encounter Status:Closed by BRYAN DWYER on 12/12/[address] [facility] Basic metabolic 2000 panelon 12-08-2023 Anion gap [Moles/Vol] 13 mmol/L 8 - 15 mmol/L [facility] Calcium [Mass/Vol] 9.4 mg/dL 8.5 - 10. 2 mg/dL [facility] Chloride [Moles/Vol] 103 mmol/L 98 - 10 7 mmol/L [facility] CO2 [Moles/Vol] 26 mmol/L 22 - 30 mmol/L [facility] Creatinine [Mass/Vol] 0.99 mg/dL 0.73 - 1.22 mg/dL [facility] GFR/1.73 sq M.predicted among non-blacks MDRD (S/P/Bld) [Vol rate/Area] 78 mL/min/{1.73_m2} - PINF [facility] Comment on above: Estimated Glomerular Filtration [...] [Mass/Vol] 97 mg/dL 74 - 99 mg/dL [facility] Comment on above: The [place] Diabete s Association (ADA) provides guidance for [...] Standards of Medical Care in Diabetes 2016, [place] Diabetes Association. Diabetes Care. 2016.39(Suppl 1). Interpretation and review of laboratory results Normal [facility] Potassium [Moles/Vol] 4.3 mmol/L 3.7 - 5.1 mmol/L [facility] Sodium [Moles/Vol] 142 mmol/L 136 - 144 mmol/L [facility] Urea nitrogen [Mass/Vol] 18 mg/dL 9 - 24 mg/dL [facility] Anion gap [Moles/Vol] 13 mmol/L Normal 8-15 [facility] Comment on above: Order Comment: Marlin markham Type: BLOOD SPECIMEN [facility] Address: [address] [place] [address] Performed By: #### 3 3762-6, 45333-9 #### [facility] CLIA [id number] [address] [place] [address] [place] Calcium [Mass/Vol] 9.4 mg/dL Normal 8.5-10.2 [facility] Comment on above: Order Comment: Marlin markham Type: BLOOD SPECIMEN [facility] Address: [address] [place] [address] Performed By: #### 3 3762-6, 89497-2 #### [facility] CLIA [id number] [address] [place] [address] [place] Chloride [Moles/Vol] 103 mmol/L Normal 98-107 [facility] Comment on above: Order Comment: Marlin markham Type: BLOOD SPECIMEN [facility] Address: [address] [place] [address] Performed By: #### 3 3762-6, 34377-4 #### [facility] CLIA [id number] [address] [place] [address] [place] CO2 [Moles/Vol] 26 mmol/L Normal 22-30 [facility] Comment on above: Order Comment: Specjack markham Type: BLOOD SPECIMEN [facility] Address: [address] [place] [address] Performed By: #### 3 3762-6, 15191-5 #### [facility] CLIA [id number] [address] [place] [address] [place] Creatinine [Mass/Vol] 0.99 mg/dL Normal 0.73-1.22 [facility] Comment on above: Order Comment: Alixi [facility] Type: BLOOD SPECIMEN [facility] Address: [address] [place] [address] Performed By: #### 3 3762-6, 12376-4 #### [facility] CLIA [id number] [address] [place] [address] [place] Creatinine and Glomerular filtration rate.predicted panel (S/P/Bld) 78 mL/min/1.73m??? Normal >=60 [facility] Comment on above: Order Comment: [facility] Type: BLOOD SPECIMEN [facility] Address: [address] [place] [address] Result Comment: Colleen mated Glomerular Filtration Rate [...] actual GFR. Performed By: #### 3 3762-6, 61339-3 #### [facility] CLIA [id number] [address] [place] [address] [place] Glucose [Mass/Vol] 97 mg/dL Normal 74-99 [facility] Comment on above: Order Comment: [facility] Type: BLOOD SPECIMEN [facility] Address: [address] [place] [address] Result Comment: The [place] Diabetes Association (ADA) provides guidance for cutoff [...] Standards of Medical Care in Diabetes 2016, [place] Diabetes Association. Diabetes Care. 2016.39(Suppl 1). Performed By: #### 3 3762-6, 25260-9 #### [facility] CLIA [id number] [address] [place] [address] [place] Potassium [Moles/Vol] 4.3 mmol/L Normal 3.7-5.1 [facility] Comment on above: Order Comment: Marlin markham Type: BLOOD SPECIMEN [facility] Address: [address] [place] [address] Performed By: #### 3 3762-6, 15816-3 #### [facility] IA [id number] [address] [place] [address] [place] Sodium [Moles/Vol] 142 mmol/L Normal 136-144 [facility] Comment on above: Order Comment: Marlin markham Type: BLOOD SPECIMEN [facility] Address: [address] [place], [place] [id number] Performed By: #### 3 3762-6, 61694-0 #### [facility] CLIA [id number] [address] [place] [address] [place] Urea nitrogen [Mass/Vol] 18 mg/dL Normal 9-24 [facility] Comment on above: Order Comment: Marlin markham Type: BLOOD SPECIMEN [facility] Address: [address] [place] [address] Performed By: #### 3 3762-6, 57817-0 #### [facility] CLIA [id number] [address] [place] [address] [place] CNOVon 12-08-2023 CNOV Office Visit (CARDAV ) JORGE DAVIS ([id number]) 1945 [place] [facility]* Date Time Provider Department 12/08/23 10:40 AM VENKAT EVANS During your visit today, we recorded the following information about you: Pulse Blood pressure Weight 88/minute 142/80 118.4 kg Venkat Evans V, MD 12/08/2023 11:39 AM Signed Referring Physician: Venkat Evans [address] [facility] [address] Primary Care Physician: DO Jorge Unger Ryan [...] Continue staitn 5. 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 Normal [facility] ECHOon 12-08-2023 Echocardiography Echocardiography Report: Transthoracic Echo Pending Sale To [facility] Date of service: 12/08/2023 9:46:42 AM ANALYST Ordering physician: VENKAT EVANS V Indication: Evaluation of known heart failure to guide therapy Technologist: Jose Luis Porter [facility] Interpreting physician: Ruddy Chau MD [...] * * * Final * * * Appifier Medical Image : [id number] Normal [facility] Laboratory - Chemistry and C hemistry - challengeon 12-08-2023 Calcium [Mass/Vol] 9.4 mg/dL 8.5-10.2 [facility] Chloride [Moles/Vol] 103 mmol/L 98-107 [facility] CO2 [Moles/Vol] 26 mmol/L 22-30 [facility] Creatinine [Mass/Vol] 0.99 mg/dL 0.73-1.22 [facility] Glucose [Mass/Vol] 97 mg/dL 74-99 [facility] Comment on above: The [place] Diabete s Association (ADA) provides guidance for [...] Standards of Medical Care in Diabetes 2016, [place] Diabetes Association. Diabetes Care. 2016.39(Suppl 1). Potassium [Moles/Vol] 4.3 mmol/L 3.7-5.1 [facility] Sodium [Moles/Vol] 142 mmol/L 136-144 [facility] Urea nitrogen [Mass/Vol] 18 mg/dL 12-04 [facility] NT PRO BNPon 12-08-2023 Natriuretic peptide.B prohormone N-Terminal [Mass/Vol] 2139 pg/mL High NINF - 450 pg/mL [facility] NT-proBNP SerPl-mCncon 12-07 Natriuretic peptide.B prohormone N-Terminal [Mass/Vol] 2139 pg/mL High <450 [facility] Comment on above: Order Comment: Speci men Type: BLOOD SPECIMEN [facility] Address: [address] [place] [address] Performed By: #### 3 3762-6, 95412-6 #### [facility] CLIA [id number] [address] [place] [address] [place] Natriuretic peptide.B prohor gerson N-Terminal [Mass/Vol]on 12-08-2023 Interpretation and review of laboratory results Abnormal [facility] Natriuretic peptide.B prohor gerson N-Terminal [Mass/volume] in Serum or Plasmaon 12-08-2023 Natriuretic peptide.B prohormone N-Terminal [Mass/Vol] 2139 pg/mL High <450 [facility] No Panel Informationon 12-07 Estimated GFR (CKD-EPI) 78 mL/min/1.73m??? >=60 [facility] Comment on above: Estimated Glomerular Filtration Rate [...] 12-08-2023 Anion gap [Moles/Vol] 13 mmol/L 8-15 [facility] Basophils Auto (Bld) [#/Vol] on 12-07-2023 Basophils (Bld) [#/Vol] 0.0 10 3/uL 0.0-0.1 [facility] Basophils/100 WBC Auto (Bld) on 12-07-2023 Basophils/100 WBC (Bld) 0.2 % 0.2-2.0 [facility] Eosinophils/100 WBC Auto (Bl d)on 12-07-2023 Eosinophils/100 WBC (Bld) 0.0 % Low 0.9-7.0 [facility] Erythrocyte distribution wid th Auto (RBC) [Ratio]on 12-07-2023 Erythrocyte distribution width (RBC) [Ratio] 14.4 % 11.0-15.0 [facility] Estimated glomerular filtrat ion rate (GFR) non- Americanon 12-07-2023 GFR/1.73 sq M.predicted among non-blacks MDRD (S/P/Bld) [Vol rate/Area] mL/min/{1.73_m2} >=60 [facility] Globulin Calc (S) [Mass/Vol] on 12-07-2023 Globulin (S) [Mass/Vol] 3.3 g/dL [facility] Hematocrit Auto (Bld) [Volum e fraction]on 12-07-2023 Hematocrit (Bld) [Volume fraction] 41.7 % Low 42.0-54.0 [facility] Hemoglobin [Mass/volume] in Bloodon 12-07-2023 Hemoglobin (Bld) [Mass/Vol] 13.5 g/dL Low 14.0-18.0 [facility] INR in Platelet poor plasma by Coagulation assayon 12-07-2023 INR Coag (PPP) [Relative time] 2.55 {INR} [facility] Comment on above: DESIRED INR:2.0-3.0 CONDITIONS NOT LISTED BELOW2.5-3.5 FOR PROSTHETIC HEART VALVE REPLACEMENT2.5-3.5 RECURRENT THROMBOSIS Laboratory - Chemistry and C hemistry - challengeon 12-07-2023 Albumin [Mass/Vol] 2.8 g/dL Low 3.4-5.0 [facility] ALP [Catalytic activity/Vol] 74 U/L 46-116 [facility] ALT [Catalytic activity/Vol] 17 U/L 16-63 [facility] AST [Catalytic activity/Vol] 15 U/L 15-37 [facility] Bilirubin [Mass/Vol] 1.1 mg/dL High 0.2-1.0 [facility] Calcium [Mass/Vol] 8.6 mg/dL 8.5-10.1 [facility] Chloride [Moles/Vol] 104 mmol/L 98-107 [facility] CO2 [Moles/Vol] 22.2 mmol/L 21.0-32.0 [facility] Creatinine [Mass/Vol] 0.72 mg/dL 0.70-1.30 [facility] GFR/1.73 sq M.predicted MDRD (S/P/Bld) [Vol rate/Area] mL/min/{1.73_m2} >=60 [facility] Glucose [Mass/Vol] 132 mg/dL High 74-106 [facility] Potassium [Moles/Vol] 4.1 mmol/L 3.5-5.1 [facility] Protein [Mass/Vol] 6.1 g/dL Low 6.4-8.2 [facility] Sodium [Moles/Vol] 136 mmol/L 136-145 [facility] Urea nitrogen [Mass/Vol] 13.0 mg/dL 7.0-18.0 [facility] Urea nitrogen/Creatinine [Mass ratio] 18.1 mg/mg [facility] Laboratory - Hematology and Cell countson 12-07-2023 Immature granulocytes/100 WBC (Bld) 0.4 % 0.0-0.5 [facility] Leukocytes [#/volume] correc jossue for nucleated erythrocytes in Blood by Automated counon 12-07-2023 WBC corrected for nucl RBC Auto (Bld) [#/Vol] 9.5 10 3/uL 4.0-11.0 [facility] Lymphocytes Auto (Bld) [#/Vo l]on 12-07-2023 Lymphocytes (Bld) [#/Vol] 1.1 10 3/uL Low 1.2-3.8 [facility] Lymphocytes/100 WBC Auto (Bl d)on 12-07-2023 Lymphocytes/100 WBC (Bld) 11.5 % Low 20.5-60.0 [facility] MCH Auto (RBC) [Entitic mass ]on 12-07-2023 MCH (RBC) [Entitic mass] 29.5 pg 25.9-34.0 [facility] MCHC Auto (RBC) [Mass/Vol]on 12-07-2023 MCHC (RBC) [Mass/Vol] 32.4 g/dL 29.9-35.2 [facility] MCV Auto (RBC) [Entitic vol] on 12-07-2023 MCV (RBC) [Entitic vol] 91.0 fL 80.0-94.0 [facility] Monocytes Auto (Bld) [#/Vol] on 12-07-2023 Monocytes (Bld) [#/Vol] 0.5 10 3/uL 0.3-0.8 [facility] Monocytes/100 WBC Auto (Bld) on 12-07-2023 Monocytes/100 WBC (Bld) 4.8 % 1.7-12.0 [facility] Neutrophils Auto (Bld) [#/Vo l]on 12-07-2023 Neutrophils (Bld) [#/Vol] 7.9 10 3/uL High 1.4-6.5 [facility] Neutrophils/100 WBC Auto (Bl d)on 12-07-2023 Neutrophils/100 WBC (Bld) 83.1 % High 43.0-75.0 [facility] No Panel Informationon 12-06 Eosinophils # (Auto) 0.0 10 3/uL 0.0-0.7 [facility] Immature Granulocyte # (Auto) 0.04 10 3/uL High 0.00-0.03 [facility] Platelet mean volume Auto (B ld) [Entitic vol]on 12-07-2023 Platelet mean volume (Bld) [Entitic vol] 10.3 fL 9.5-13.5 [facility] Platelets Auto (Bld) [#/Vol] on 12-07-2023 Platelets (Bld) [#/Vol] 209 10 3/uL 150-450 [facility] Prothrombin time (PT)on 11-12 PT Coag (PPP) [Time] 24.6 s High 9.0-11.6 [facility] RBC Auto (Bld) [#/Vol]on RBC (Bld) [#/Vol] 4.58 10 6/uL Low 4.70-6.10 [facility] Serum or plasma albumin/glob ulin mass ratioon 12-07-2023 Albumin/Globulin [Mass ratio] 0.8 {ratio} [facility] Serum or plasma anion gap de terminationon 12-07-2023 Anion gap [Moles/Vol] 13.9 [facility] Basophils Auto (Bld) [#/Vol] on 12-06-2023 Basophils (Bld) [#/Vol] 0.1 10 3/uL 0.0-0.1 [facility] Basophils/100 WBC Auto (Bld) on 12-06-2023 Basophils/100 WBC (Bld) 0.7 % 0.2-2.0 [facility] Eosinophils/100 WBC Auto (Bl d)on 12-06-2023 Eosinophils/100 WBC (Bld) 1.7 % 0.9-7.0 [facility] Erythrocyte distribution wid th Auto (RBC) [Ratio]on 12-06-2023 Erythrocyte distribution width (RBC) [Ratio] 14.6 % 11.0-15.0 [facility] Estimated glomerular filtrat ion rate (GFR) non- Americanon 12-06-2023 GFR/1.73 sq M.predicted among non-blacks MDRD (S/P/Bld) [Vol rate/Area] mL/min/{1.73_m2} >=60 [facility] Globulin Calc (S) [Mass/Vol] on 12-06-2023 Globulin (S) [Mass/Vol] 3.3 g/dL [facility] Hematocrit Auto (Bld) [Volum e fraction]on 12-06-2023 Hematocrit (Bld) [Volume fraction] 42.1 % 42.0-54.0 [facility] Hemoglobin [Mass/volume] in Bloodon 12-06-2023 Hemoglobin (Bld) [Mass/Vol] 13.6 g/dL Low 14.0-18.0 [facility] INR in Platelet poor plasma by Coagulation assayon 12-06-2023 INR Coag (PPP) [Relative time] 2.78 {INR} [facility] Comment on above: DESIRED INR:2.0-3.0 CONDITIONS NOT LISTED BELOW2.5-3.5 FOR PROSTHETIC HEART VALVE REPLACEMENT2.5-3.5 RECURRENT THROMBOSIS Laboratory - Chemistry and C hemistry - challengeon 12-06-2023 Albumin [Mass/Vol] 2.9 g/dL Low 3.4-5.0 [facility] ALP [Catalytic activity/Vol] 78 U/L 46-116 [facility] ALT [Catalytic activity/Vol] 20 U/L 16-63 [facility] AST [Catalytic activity/Vol] 18 U/L 15-37 [facility] Bilirubin [Mass/Vol] 1.1 mg/dL High 0.2-1.0 [facility] Calcium [Mass/Vol] 8.7 mg/dL 8.5-10.1 [facility] Chloride [Moles/Vol] 104 mmol/L 98-107 [facility] CO2 [Moles/Vol] 28.4 mmol/L 21.0-32.0 [facility] Creatinine [Mass/Vol] 0.75 mg/dL 0.70-1.30 [facility] GFR/1.73 sq M.predicted MDRD (S/P/Bld) [Vol rate/Area] mL/min/{1.73_m2} >=60 [facility] Glucose [Mass/Vol] 106 mg/dL 74-106 [facility] Potassium [Moles/Vol] 4.0 mmol/L 3.5-5.1 [facility] [facility] Protein [Mass/Vol] 6.2 g/dL Low 6.4-8.2 [facility] Sodium [Moles/Vol] 137 mmol/L 136-145 [facility] Urea nitrogen [Mass/Vol] 15.0 mg/dL 7.0-18.0 [facility] Urea nitrogen/Creatinine [Mass ratio] 20.0 mg/mg [facility] Laboratory - Hematology and Cell countson 12-06-2023 Immature granulocytes/100 WBC (Bld) 0.3 % 0.0-0.5 [facility] Leukocytes [#/volume] correc jossue for nucleated erythrocytes in Blood by Automated counon 12-06-2023 WBC corrected for nucl RBC Auto (Bld) [#/Vol] 7.5 10 3/uL 4.0-11.0 [facility] Lymphocytes Auto (Bld) [#/Vo l]on 12-06-2023 Lymphocytes (Bld) [#/Vol] 1.8 10 3/uL 1.2-3.8 [facility] Lymphocytes/100 WBC Auto (Bl d)on 12-06-2023 Lymphocytes/100 WBC (Bld) 23.5 % 20.5-60.0 [facility] MCH Auto (RBC) [Entitic mass ]on 12-06-2023 MCH (RBC) [Entitic mass] 29.8 pg 25.9-34.0 [facility] MCHC Auto (RBC) [Mass/Vol]on 12-06-2023 MCHC (RBC) [Mass/Vol] 32.3 g/dL 29.9-35.2 [facility] MCV Auto (RBC) [Entitic vol] on 12-06-2023 MCV (RBC) [Entitic vol] 92.3 fL 80.0-94.0 [facility] Monocytes Auto (Bld) [#/Vol] on 12-06-2023 Monocytes (Bld) [#/Vol] 0.6 10 3/uL 0.3-0.8 [facility] Monocytes/100 WBC Auto (Bld) on 12-06-2023 Monocytes/100 WBC (Bld) 8.6 % 1.7-12.0 [facility] Neutrophils Auto (Bld) [#/Vo l]on 12-06-2023 Neutrophils (Bld) [#/Vol] 4.9 10 3/uL 1.4-6.5 [facility] Neutrophils/100 WBC Auto (Bl d)on 12-06-2023 Neutrophils/100 WBC (Bld) 65.2 % 43.0-75.0 [facility] No Panel InformationOrdered By: Edgardo Feng on 12-06-2023 Acid Fast Smear [facility] Aerobic Culture [facility] AFB Specimen Processing [facility] Anaerobic Culture [facility] No Panel Informationon 12-05 Fungal Smear Result \R\ Fungus Stain [facility] Gram Stain Result 1 \R\ Gram Stain Result [facility] Miscellaneous Test Comment See comment [facility] Comment on above: Specimen Source: LEG RT - Leg Right - Leg Rt - 603.600 Eosinophils # (Auto) 0.1 10 3/uL 0.0-0.7 [facility] Immature Granulocyte # (Auto) 0.02 10 3/uL 0.00-0.03 [facility] Platelet mean volume Auto (B ld) [Entitic vol]on 12-06-2023 Platelet mean volume (Bld) [Entitic vol] 10.0 fL 9.5-13.5 [facility] Platelets Auto (Bld) [#/Vol] on 12-06-2023 Platelets (Bld) [#/Vol] 205 10 3/uL 150-450 [facility] Prothrombin time (PT)on 11-12 PT Coag (PPP) [Time] 26.6 s High 9.0-11.6 [facility] RBC Auto (Bld) [#/Vol]on RBC (Bld) [#/Vol] 4.56 10 6/uL Low 4.70-6.10 [facility] Serum or plasma albumin/glob ulin mass ratioon 12-06-2023 Albumin/Globulin [Mass ratio] 0.9 {ratio} [facility] Serum or plasma anion gap de terminationon 12-06-2023 Anion gap [Moles/Vol] 8.6 mmol/L [facility] Basophils Auto (Bld) [#/Vol] on 12-05-2023 Basophils (Bld) [#/Vol] 0.0 10 3/uL 0.0-0.1 [facility] Basophils/100 WBC Auto (Bld) on 12-05-2023 Basophils/100 WBC (Bld) 0.6 % 0.2-2.0 [facility] Eosinophils/100 WBC Auto (Bl d)on 12-05-2023 Eosinophils/100 WBC (Bld) 1.7 % 0.9-7.0 [facility] Erythrocyte distribution wid th Auto (RBC) [Ratio]on 12-05-2023 Erythrocyte distribution width (RBC) [Ratio] 14.6 % 11.0-15.0 [facility] Estimated glomerular filtrat ion rate (GFR) non- Americanon 12-05-2023 GFR/1.73 sq M.predicted among non-blacks MDRD (S/P/Bld) [Vol rate/Area] mL/min/{1.73_m2} >=60 [facility] Globulin Calc (S) [Mass/Vol] on 12-05-2023 Globulin (S) [Mass/Vol] 3.6 g/dL [facility] Glucose mean value [Mass/vol ume] in Blood Estimated from glycated hemoglobinon 12-05-2023 Average glucose Estimated from glycated hemoglobin (Bld) [Mass/Vol] 126 mg/dL [facility] Hematocrit Auto (Bld) [Volum e fraction]on 12-05-2023 Hematocrit (Bld) [Volume fraction] 42.7 % 42.0-54.0 [facility] Hemoglobin [Mass/volume] in Bloodon 12-05-2023 Hemoglobin (Bld) [Mass/Vol] 13.9 g/dL Low 14.0-18.0 [facility] INR in Platelet poor plasma by Coagulation assayon 12-05-2023 INR Coag (PPP) [Relative time] 3.49 {INR} [facility] Comment on above: DESIRED INR:2.0-3.0 CONDITIONS NOT LISTED BELOW2.5-3.5 FOR PROSTHETIC HEART VALVE REPLACEMENT2.5-3.5 RECURRENT THROMBOSIS Laboratory - Chemistry and C hemistry - challengeon 12-05-2023 Albumin [Mass/Vol] 3.2 g/dL Low 3.4-5.0 [facility] ALP [Catalytic activity/Vol] 95 U/L 46-116 [facility] ALT [Catalytic activity/Vol] 28 U/L 16-63 [facility] AST [Catalytic activity/Vol] 21 U/L 15-37 [facility] Bilirubin [Mass/Vol] 0.7 mg/dL 0.2-1.0 [facility] Calcium [Mass/Vol] 8.8 mg/dL 8.5-10.1 [facility] Chloride [Moles/Vol] 100 mmol/L 98-107 [facility] CO2 [Moles/Vol] 28.2 mmol/L 21.0-32.0 [facility] Creatinine [Mass/Vol] 0.78 mg/dL 0.70-1.30 [facility] GFR/1.73 sq M.predicted MDRD (S/P/Bld) [Vol rate/Area] mL/min/{1.73_m2} >=60 [facility] Glucose [Mass/Vol] 124 mg/dL High 74-106 [facility] Potassium [Moles/Vol] 4.1 mmol/L 3.5-5.1 [facility] Protein [Mass/Vol] 6.8 g/dL 6.4-8.2 [facility] Sodium [Moles/Vol] 135 mmol/L Low 136-145 [facility] Urea nitrogen [Mass/Vol] 14.0 mg/dL 7.0-18.0 [facility] Urea nitrogen/Creatinine [Mass ratio] 17.9 mg/mg [facility] Laboratory - Hematology and Cell countson 12-05-2023 ESR (Bld) [Velocity] 46 mm/h High <=20 [facility] HbA1c (Bld) [Mass fraction] 6.0 % 4.5-6.2 [facility] Comment on above: ADA RECOMMENDED LIMI T 4.0 - 6.0ADA THERAPEUTIC TARGET < 7.0ACTION SUGGESTED> 7.0 Immature granulocytes/100 WBC (Bld) 0.2 % 0.0-0.5 [facility] Leukocytes [#/volume] correc jossue for nucleated erythrocytes in Blood by Automated counon 12-05-2023 WBC corrected for nucl RBC Auto (Bld) [#/Vol] 6.6 10 3/uL 4.0-11.0 [facility] Lymphocytes Auto (Bld) [#/Vo l]on 12-05-2023 Lymphocytes (Bld) [#/Vol] 1.4 10 3/uL 1.2-3.8 [facility] Lymphocytes/100 WBC Auto (Bl d)on 12-05-2023 Lymphocytes/100 WBC (Bld) 21.3 % 20.5-60.0 [facility] MCH Auto (RBC) [Entitic mass ]on 12-05-2023 MCH (RBC) [Entitic mass] 29.8 pg 25.9-34.0 [facility] MCHC Auto (RBC) [Mass/Vol]on 12-05-2023 MCHC (RBC) [Mass/Vol] 32.6 g/dL 29.9-35.2 [facility] MCV Auto (RBC) [Entitic vol] on 12-05-2023 MCV (RBC) [Entitic vol] 91.4 fL 80.0-94.0 [facility] Monocytes Auto (Bld) [#/Vol] on 12-05-2023 Monocytes (Bld) [#/Vol] 0.5 10 3/uL 0.3-0.8 [facility] Monocytes/100 WBC Auto (Bld) on 12-05-2023 Monocytes/100 WBC (Bld) 8.1 % 1.7-12.0 [facility] Neutrophils Auto (Bld) [#/Vo l]on 12-05-2023 Neutrophils (Bld) [#/Vol] 4.5 10 3/uL 1.4-6.5 [facility] Neutrophils/100 WBC Auto (Bl d)on 12-05-2023 Neutrophils/100 WBC (Bld) 68.1 % 43.0-75.0 [facility] No Panel InformationOrdered By: Alix Mims on 12-05-2023 Blood Culture 2 [facility] Blood Culture 1 [facility] No Panel Informationon 12-04 C-Reactive Protein, Quantitative <0.50 mg/dL <=0.50 [facility] Eosinophils # (Auto) 0.1 10 3/uL 0.0-0.7 [facility] Immature Granulocyte # (Auto) 0.01 10 3/uL 0.00-0.03 [facility] Platelet mean volume Auto (B ld) [Entitic vol]on 12-05-2023 Platelet mean volume (Bld) [Entitic vol] 9.9 fL 9.5-13.5 [facility] Platelets Auto (Bld) [#/Vol] on 12-05-2023 Platelets (Bld) [#/Vol] 216 10 3/uL 150-450 [facility] Prothrombin time (PT)on 11-12 PT Coag (PPP) [Time] 32.7 s High 9.0-11.6 [facility] RBC Auto (Bld) [#/Vol]on RBC (Bld) [#/Vol] 4.67 10 6/uL Low 4.70-6.10 [facility] Serum or plasma albumin/glob ulin mass ratioon 12-05-2023 Albumin/Globulin [Mass ratio] 0.9 {ratio} [facility] Serum or plasma anion gap de terminationon 12-05-2023 Anion gap [Moles/Vol] 10.9 mmol/L [facility] CNPNon 11-15-2023 CNPN Telephone (CARDMN) JORGE DAVIS ([id number]) 1945 [facility]* Date Time Provider Department 11/15/23 RUBEN DENTON During your visit today, we recorded the following information about you: Bryan Dwyer 11/15/2023 2:37 PM Signed Documentation scanned into EP outside database Scanned INR results into epic Allergies As of Date: 11/15/2023 (No Known Allergies) Date Reviewed: 07/04/2023 Reviewed by: Delilah Novoa LPN - Fully Assessed Reason for Visit: Received Outside Medical Records [1882] Prescriptions as of 11/15/2023 - warfarin (COUMADIN) [...] Atrial fibrillation (HCC) [I48.91] 07/08/2014 Atherosclerosis of jamul coronary artery of na*07/10/2015 Diabetes mellitus type 2, controlled, without c*07/10/2015 Atrial fibrillation, persistent (HCC) [I48.19] 07/22/2015 Paroxysmal atrial fibrillation (HCC) [I48.0] 12/04/2015 Paroxysmal atrial flutter (HCC) [I48.92] 05/30/2018 Obesity, Class III, BMI >= 40 [E66.01] 10/23/2019 Chronic diastolic heart failure (HCC) [I50.32] 06/05/2023 Mixed hyperlipidemia [E78.2] 06/05/2023 Encounter Status:Closed by BRYAN DWYER on 11/15/23 [facility] XR knee BI 2Von 10-12-2022 XR knee BI 2V [facility] [employer] Other XR knee BI 2V [facility] [employer] Other XR knee BI 2V [address] [place] [address] [employer] Other XR [place] 2[place] [address] [facility] [employer] Other XR knee BI 2V XRay Report [employer] Other XR knee BI 2V Signed [employer] Other XR knee BI 2V Patient: Corina Davis MR#: [id number] [employer] Other XR knee BI 2V 14 [employer] Other XR knee BI 2V : 1945 Acct:[id number] [employer] Other XR knee BI 2V Age/Sex: 77 / M ADM Date: 10/12/22 [employer] Other XR knee BI 2V Loc: [facility] Room: Type : [facility] [employer] Other XR knee BI 2V Attending Dr: Bruce Shine II, MD [employer] Other XR knee BI 2V Copies to: Bruce Shine MD [employer] Other XR knee BI 2V Ordering Provider: Bruce Shine MD [employer] Other XR knee BI 2V Date of Service: 10/12/22 [employer] Other XR knee BI 2V XR/XR hip BI w PEL1V: Pain in right hip;Pain in left hip [employer] Other XR knee BI 2V ([id number]) XR/XR knee BI 2V: PAIN [employer] Other XR knee BI 2V ADULT PELVIS WITH BILATERAL HIPS - one view each, bilateral knee series 4 views each [employer] Other XR knee BI 2V CLINICAL HISTORY: Bilateral hip/groin pain for years. Bilateral generalized knee pain for years. [employer] Other XR knee BI 2V COMPARISON: None [employer] Other XR knee BI 2V FINDINGS: [employer] Other XR knee BI 2V Hip series: Moderate degenerative changes of both hips without acute bony process. Degenerative [employer] Other XR knee BI 2V change also noted involving the visualized lower lumbar spine, SI joints and pubic symphysis. [employer] Other XR knee BI 2V Bilateral knee series: Bilateral knee prostheses are in place without radiographic complication. No [employer] Other XR knee BI 2V acute bony process i s seen. Vascular calcifications. [employer] Other XR knee BI 2V XR/XR hip BI w PEL1V [employer] Other XR knee BI 2V IMPRESSION: [employer] Other XR knee BI 2V MODERATE DEGENERATIV E CHANGES OF BOTH HIPS WITHOUT ACUTE BONY PROCESS. [employer] Other XR knee BI 2V BILATERAL KNEE PROSTHESES WITHOUT RADIOGRAPHIC COMPLICATION. [employer] Other XR knee BI 2V Impression dictated by: Jose Galvan Jr., DRitaORita10/12/2022 12:41 PM [employer] Other XR knee BI 2V Dictation Location: [place] [address] [employer] Other XR knee BI 2V Transcribed By: JENNIFER 10/12/22 124 [employer] Other XR knee BI 2V Dictated By: Jose Galvan Jr, DO 10/12/22 [facility] [employer] Other XR knee BI 2V Signed By: [employer] Other XR knee BI 2V 10/12/22 [facility] [employer] Other A1C with Estimated Average G luon 05-16-2022 A1C with Estimated Average Glu [employer] Other GLYCOHEMOGLOBIN A1Con 2022 ADA RECOMMENDATION SEE BELOW Normal [facility] Comment on above: Result Comment: ADA RECOMMENDED LIMIT 4.0 - 6.0 ADA THERAPEUTIC TARGET < 7.0 ACTION SUGGESTED > 7.0 Performed By: #### A 1C #### [facility] [address] [address] [address] Edna Machado Glucose [Mass/Vol] 131 mg/dL Normal [facility] Comment on above: Performed By: #### A 1C #### [facility] [address] [address] [address] Edna Machado HbA1c (Bld) [Mass fraction] 6.2 % Normal 4.5-6.2 [facility] Comment on above: Performed By: #### A 1C #### [facility] [address] CHEST WO CONon [...] GLENDA FENG Date: 2021-09-24 13:29 Normal [facility] CBC AUTO DIFFon 09-22-2021 BASO # 0.0 103/ul Normal 0.0-0.1 [facility] Comment on above: Performed By: #### C BC #### [facility] [address] [place] [address] Dr. Edna Machado Basophils/100 WBC (Bld) 0.5 % Normal 0.2-2.0 [facility] Comment on above: Performed By: #### C BC #### [facility] [address] [place] [address] Dr. Edna Machado EO # 0.1 103/ul Normal 0.0-0.7 [facility] Comment on above: Performed By: #### C BC #### [facility] [address] [place] [address] Dr. Edna Machado Eosinophils/100 WBC (Bld) 1.4 % Normal 0.9-7.0 [facility] Comment on above: Performed By: #### C BC #### [facility] [address] [place] [address] Dr. Edna Machado Erythrocyte distribution width (RBC) [Ratio] 14.6 % Normal 11.0-15.0 [facility] Comment on above: Performed By: #### C BC #### [facility] [address] [place] [address] Dr. Edna Machado Hematocrit (Bld) [Volume fraction] 46.5 % Normal 42.0-54.0 [facility] Comment on above: Performed By: #### C BC #### [facility] [address] [place] [address] Dr. Edna Machado Hemoglobin (Bld) [Mass/Vol] 15.0 g/dL Normal 14.0-18.0 [facility] Comment on above: Performed By: #### C BC #### [facility] [address] [place] [address] Dr. Edna Machado IG # 0.01 10e3/ul Normal 0.00-0.03 [facility] Comment on above: Performed By: #### C BC #### [facility] [address] [place] [address] Dr. Edna Machado IG % 0.1 % Normal 0.0-0.5 [facility] Comment on above: Performed By: #### C BC #### [facility] [address] [place] [address] Dr. Edna Machado LYMPH # 2.1 103/ul Normal 1.2-3.8 [facility] Comment on above: Performed By: #### C BC #### [facility] [address] [place] [address] Dr. Edna Machado Lymphocytes/100 WBC (Bld) 27.8 % Normal 20.5-60.0 [facility] Comment on above: Performed By: #### C BC #### [facility] [address] [place] [address] Dr. Edna Machado MANUAL DIFF REQ NO Normal [facility] Comment on above: Performed By: #### C BC #### [facility] [address] [place] [address] Dr. Edna Machado MCH (RBC) [Entitic mass] 29.0 pg Normal 25.9-34.0 [facility] Comment on above: Performed By: #### C BC #### [facility] [address] [place] [address] Dr. Edna Machado MCHC (RBC) [Mass/Vol] 32.3 g/dL Normal 29.9-35.2 [facility] Comment on above: Performed By: #### C BC #### [facility] [address] [place] [address] Dr. Edna Machado MCV (RBC) [Entitic vol] 89.8 fL Normal 80.0-94.0 [facility] Comment on above: Performed By: #### C BC #### [facility] [address] [place] [address] Dr. Edna Machado MONO # 0.6 103/ul Normal 0.3-0.8 [facility] Comment on above: Performed By: #### C BC #### [facility] [address] [place] [address] Dr. Edna Machado Monocytes/100 WBC (Bld) 8.3 % Normal 1.7-12.0 [facility] Comment on above: Performed By: #### C BC #### [facility] [address] [place] [address] Dr. Edna Machado NEUT # 4.6 103/ul Normal 1.4-6.5 [facility] Comment on above: Performed By: #### C BC #### [facility] [address] [place] [address] Dr. Edna Machado Neutrophils/100 WBC (Bld) 61.9 % Normal 43.0-75.0 [facility] Comment on above: Performed By: #### C BC #### [facility] [address] [place] [address] Dr. Edna Machado Platelet mean volume (Bld) [Entitic vol] 10.0 fL Normal 9.5-13.5 [facility] Comment on above: Performed By: #### C BC #### [facility] [address] [place] [address] Dr. Edna Machado PLT 218 103/ul Normal 150-450 [facility] Comment on above: Performed By: #### C BC #### [facility] [address] [place] [address] Dr. Edna Machado RBC 5.18 106/ul Normal 4.70-6.10 [facility] Comment on above: Performed By: #### C BC #### [facility] [address] [place] [address] Dr. Edna Machado WBC 7.4 103/ul Normal 4.0-11.0 [facility] Comment on above: Performed By: #### C BC #### [facility] [address] [place] [address] Dr. Edna Machado GLYCOHEMOGLOBIN A1Con 2021 ADA RECOMMENDATION SEE BELOW Normal [facility] Comment on above: Result Comment: ADA RECOMMENDED LIMIT 4.0 - 6.0 ADA THERAPEUTIC TARGET < 7.0 ACTION SUGGESTED > 7.0 Performed By: #### A 1C #### [facility] [address] [place] [address] Dr. Edna Machado Glucose [Mass/Vol] 123 mg/dL Normal [facility] Comment on above: Performed By: #### A 1C #### [facility] [address] [place] [address] Dr. Edna Machado HbA1c (Bld) [Mass fraction] 5.9 % Normal 4.5-6.2 [facility] Comment on above: Performed By: #### A 1C #### [facility] [address] [place] [address] Dr. Edna Machado LIPID PROFILEon 09-22-2021 CHOL-HDL RATIO NORM SEE BELOW Normal [facility] Comment on above: Result Comment: 3.3 - 4.4 LOW RISK 4.4 - 7.1 AVERAGE RISK 7.1 - 11.0 MODERATE RISK >11.0 HIGH RISK Performed By: #### L IPID, CMP #### [facility] [address] [place] [address] Dr. Edna Machado Cholesterol [Mass/Vol] 132 mg/dL Normal <=200 [facility] Comment on above: Performed By: #### L IPID, CMP #### [facility] [address] [place] [address] Dr. Edna Machado Cholesterol in HDL [Mass/Vol] 43 mg/dL Normal 40-60 [facility] Comment on above: Performed By: #### L IPID, CMP #### [facility] [address] [place] [address] Dr. Edna Machado Cholesterol in LDL [Mass/Vol] 71.0 mg/dL Normal [facility] Comment on above: Performed By: #### L IPID, CMP #### [facility] [address] [place] [address] Dr. Edna Machado Cholesterol.total/Cho lesterol in HDL [Mass ratio] 3.1 {ratio} Normal [facility] Comment on above: Performed By: #### L IPID, CMP #### [facility] [address] [place] [address] Dr. Edna Machado HDL NORMAL > or = 60 mg/dl - LO W CARDIOVASCULAR RISK <40 mg/dl - HIGH CARDIOVASCULAR RISK Normal [facility] Comment on above: Performed By: #### L IPID, CMP #### [facility] [address] [place] [address] Dr. Edna Machado LDL CALC NORMAL SEE BELOW Normal [facility] Comment on above: Result Comment: <100 mg/dl OPTIMAL 100 - 129 mg/dl NEAR OR ABOVE OPTIMAL 130 - 159 mg/dl BORDERLINE HIGH 160 - 189 mg/dl HIGH >190 mg/dl VERY HIGH Performed By: #### L IPID, CMP #### [facility] [address] [place] [address] Dr. Edna Machado Triglyceride [Mass/Vol] 90 mg/dL Normal <=150 [facility] Comment on above: Performed By: #### L IPID, CMP #### [facility] [address] [address] [address] Edna Machado VLDL CALC 18.0 mg/dL Normal [facility] Comment on above: Performed By: #### L IPID, CMP #### [facility] [address] [place] [address] Dr. Edna Machado PROF 14(COMP METB)on 022 Albumin [Mass/Vol] 3.5 g/dL Normal 3.4-5.[address] [facility] Comment on above: Performed By: #### L IPID, CMP #### [facility] [address] [place] [address] Dr. Edna Machado Albumin/Globulin [Mass ratio] 0.9 {ratio} Normal [facility] Comment on above: Performed By: #### L IPID, CMP #### [facility] [address] [place] [address] Dr. Edna Machado ALP [Catalytic activity/Vol] 83 U/L Normal 46-116 [facility] Comment on above: Performed By: #### L IPID, CMP #### [facility] [address] [place] [address] Dr. Edna Machado ALT [Catalytic activity/Vol] 22 U/L Normal 16-63 [facility] Comment on above: Performed By: #### L IPID, CMP #### [facility] [address] [address] [address] Edna Machado Anion gap [Moles/Vol] 9.4 mmol/L Normal [facility] Comment on above: Performed By: #### L IPID, CMP #### [facility] [address] [address] [address] Edna Machado AST [Catalytic activity/Vol] 13 U/L Critically low 15-37 [facility] Comment on above: Performed By: #### L IPID, CMP #### [facility] [address] [place] [address] Dr. Edna Machado Bilirubin [Mass/Vol] 0.6 mg/dL Normal 0.2-1.0 [facility] Comment on above: Performed By: #### L IPID, CMP #### [facility] [address] [place] [address] Dr. Edna Machado Calcium [Mass/Vol] 8.7 mg/dL Normal 8.5-10.[address] [facility] Comment on above: Performed By: #### L IPID, CMP #### [facility] [facility] [address] [place] [address] Dr. Edna Machado Chloride [Moles/Vol] 103 mmol/L Normal 98-107 [facility] Comment on above: Performed By: #### L IPID, CMP #### [facility] [address] [place] [address] Dr. Edna Machado CO2 [Moles/Vol] 28.7 mmol/L Normal 21.0-32.0 [facility] Comment on above: Performed By: #### L IPID, CMP #### [facility] [address] [place] [address] Dr. Edna Machado Creatinine [Mass/Vol] 0.83 mg/dL Normal 0.70-1.30 [facility] Comment on above: Performed By: #### L IPID, CMP #### [facility] [address] [address] [address] Edna Machado EGFR-AF [place]LANDER >60 Normal >=60 [facility] Comment on above: Performed By: #### L IPID, CMP #### [facility] [address] [address] [address] Edna Machado EGFR-NON AF [place]ER >60 Normal >=60 [facility] Comment on above: Performed By: #### L IPID, CMP #### [facility] [address] [address] [address] Edna Machado Globulin (S) [Mass/Vol] 3.7 g/dL Normal [facility] Comment on above: Performed By: #### L IPID, CMP #### [facility] [address] [address] [address] Edna Machado Glucose [Mass/Vol] 106 mg/dL Normal 74-106 [facility] Comment on above: Performed By: #### L IPID, CMP #### [facility] [address] [address] [address] Edna Machado Potassium [Moles/Vol] 4.1 mmol/L Normal 3.5-5.1 [facility] Comment on above: Performed By: #### L IPID, CMP #### [facility] [address] [address] [address] Edna Machado Protein [Mass/Vol] 7.2 g/dL Normal 6.4-8.2 [facility] Comment on above: Performed By: #### L IPID, CMP #### [facility] [address] [address] [address] Edna Machado Sodium [Moles/Vol] 137 mmol/L Normal 136-145 [facility] Comment on above: Performed By: #### L IPID, CMP #### [facility] [address] [address] [address] Edna Machado Urea nitrogen [Mass/Vol] 11.0 mg/dL Normal 7.0-18.0 [facility] Comment on above: Performed By: #### L IPID, CMP #### [facility] [address] [place], [place] [address] Dr. Edna Machado Urea nitrogen/Creatinine [Mass ratio] 13.3 mg/mg Normal [facility] Comment on above: Performed By: #### L IPID, CMP #### [facility] [address] [place], [place] [address] Dr. Edna Machado Ambulatory Clinical Summaryo n 02-28-2020 Ambulatory Clinical Summary {[id number] Normal [facility] Patient Education 02-28-20 Patient Education Family Medicine [...] Document Reviewed: 11/02/2007 ExitCare? Patient Information ?2013 [employer]. Normal [facility] Urology Office/Clinic Noteon 02-28-2020 Urology Office/Clinic Note [...] nicotine dependence) 5. Anticoagulant long-term use (Z79.01: USP (current) use of anticoagulants) warfarin therapy I [...] Protein Urine Dipstick: Negative (02/28/20 08:57:00) Specific Ovid Urine Dipstick: 1.020 (02/28/20 08:57:00) Urine Appearance Urine Dipstick: Clear (02/28/20 08:57:00) Urine Color Urine Dipstick: Yellow (02/28/20 08:57:00) Urobilinogen Urine Dipstick: Normal 0.2-1 EU/dl (02/28/20 08:57:00) pH Urine Dipstick: 5 (02/28/20 08:57:00) Normal [facility] Comment on above: Result Comment: Elec tronically Signed By: David DANIEL MD\.br\Date and Time Signed: 02/28/20 09:34 EST\.br\Electronically Co-Signed By: Lou Chavez MA\.br\Date and Time Co-Signed: 02/28/20 09:31 EST Reminderson 01-21-2020 Reminders - From: Mandy Bashir To: [facility] Clinical; Sent: 01/08/2020 09:45:38 EDT Show up: 01/17/2020 09:45:00 EST Subject: renal US Due Date/Time: 01/22/2020 09:45:00 EST Reminder/Recall Pt sched 01/17/20 @ 7:45amBetsy for renal US, Order faxed Show PRW, pt to be called with results Please review Renal US and call pt with results.LG From: Mandy Bashir ([facility] Clinical) To: David DANIEL MD; Sent: 01/20/2020 14:07:31 EST Show up: 01/20/2020 14:07:00 EST Subject: RE: renal US From: David DANIEL MD To: [facility] Clinical; Sent: 01/20/2020 15:25:17 EST Show up: 01/20/2020 15:24:00 EST Subject: RE: renal US no stones. one cyst. no mass pw. Patient was notified of results.LG Normal [facility] RAD - Ultrasound Reporton RAD - Ultrasound Report [id number]#1. 00CD:127 Normal [facility] UroVysion Fish and Urine Cyt o ([facility]4 Labs)on 01-17-2020 UVFISH & UC Diagnosis Info [facility] [place] Comment on above: Result Comment: A:Ur [...] on: 01/17/2020 07:53:07 Performed By: #### 1 [id number] ####[facility] [address] [place] [address] Coding Summary.on 01-08-2020 Coding Summary. CODING DATE: 01/08/2020 FINAL [facility] STATUS: Home (Routine DC) PAYOR: Medicare APC DESCRIPTION 5372 Level 2 Urology and Related Services ADMIT DX: REASON FOR VISIT DX: R31.0 Gross hematuria FINAL DX: PRINCIPAL: R31.0 Gross hematuria SECONDARY: N40.1 Benign prostatic hyperplasia with lower urinary tract symptoms R31.29 Other microscopic hematuria I10 Essential (primary) hypertension I25.10 Atherosclerotic heart disease of jamul coronary artery without angina pectoris E78.5 Hyperlipidemia, unspecified E11.9 Type 2 diabetes mellitus without complications J44.9 Chronic obstructive pulmonary disease, unspecified E66.01 Morbid (severe) obesity due to excess calories Z68.41 Body mass index [BMI]40.0-44.9, adult I49.9 Cardiac arrhythmia, unspecified Z79.01 bundle helper (current) use of anticoagulants Z79.84 USP (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 However, the narrative phrase printed from the coding software may appear abbreviated, or result in slightly different terminology. Coded By: Edwina Marie Date Saved: 01/08/2020 10:47 am [facility] Consent for Procedure/Surger yon 01-08-2020 Consent for Procedure/Surgery [id number]# 1.00CD:127 [facility] Discharge Instructionson Discharge Instructions [id number]# 1.00CD:127 [facility] History and Physicalon 01-07 History and Physical [id number]# 1.00CD:127 [facility] IntraOperative Documentson 1 IntraOperative Documents [id number]# 1.00CD:127 [facility] Consent for Treatmenton 12-12 Consent for Treatment [id number]#1 .00CD:127 [facility] Main OR Intraoperative Recor don 01-07-2020 Main OR Intraoperative Record IntraOp Document Type FTURO Summary Primary Physician: David DANIEL MD Finalized Date/Time: 01/07/20 10:17:52 Pt. Name: JORGE DAVIS/Sex: 1945 Male Med Rec #: [id number] Physician: David DANIEL MD Financial #: [id number] Pt. Type: O Room/Bed: / Admit/Disch: 01/07/20 09:23:05 - Institution: Case Times FTURO Entry 1 Patient Times In Room 01/07/20 10:00:00 Out Room 01/07/20 10:23:00 Procedure Times Start 01/07/20 10:11:00 Stop 01/07/20 10:18:00 Anesthesia Times Last Modified By: GERMANIA Antunez RN, Ronda 01/07/20 10:15:32 Case Attendance FTURO Entry 1 Entry 2 Entry 3 Case Attendee MARÍA REYNOSO, David Antunez RN, CNOR, Catherine WILSON, Maday Bond Role Performed Surgeon - Primary Barbering Teacher - Primary Scrub - Primary Time In 01/07/20 10:00:00 01/07/20 10:00:00 01/07/20 10:00:00 Time Out 01/07/20 10:23:00 01/07/20 10:23:00 01/07/20 10:23:00 Procedure CYSTOSCOPY LOCAL(.) CYSTOSCOPY LOCAL(.) CYSTOSCOPY LOCAL(.) Comments Last Modified By: Harmony KILLIAN, JASWANTOR, Harmony KILLIAN, JASWANTOR, Harmony KILLIAN, GERMANIA, Ronda 01/07/20 Ronda 01/07/20 Ronda 01/07/20 10:15:47 10:15:47 10:15:47 Surgical Procedures FTURO Entry 1 Procedure Description Procedure CYSTOSCOPY LOCAL Modifiers . Surgeon Description CYSTOSCOPY Primary Procedure Yes Primary Surgeon MARÍA REYNOSO, David Barrera 01/07/20 10:11:00 Stop 01/07/20 10:18:00 Anesthesia Type [...] Yes Last Modified By: GERMANIA Antunez RN, Ronda 01/07/20 10:16:08 Post-Care Text: The patient [...] Participants Harmony KILLIAN, JASWANTOR, Applicable) Catherine Bond WOOD VENEER TAPER, Maday Time Out Complete 01/07/20 10:08:00 Allergies [...] GERMANIA Antunez RN, Ruthann 01/07/20 10:17 Normal [facility] Main OR Preoperative Recordo n 01-07-2020 Main OR Preoperative Record Holding Area Document Type FTURO Summary Primary Physician: David DANIEL MD Finalized Date/Time: 01/07/20 10:07:43 Pt. Name: JORGE DAVIS/Sex: 1945 Male Med Rec #: [id number] Physician: David DANIEL MD Financial #: [id number] Pt. Type: O Room/Bed: / Admit/Disch: 01/07/20 [...] Lens Implant, Jewelry Personal Items watch Limitations: TANACROSS Comment: Complaints of Pain: No Skin Integrity Unable to Visualize Vitals - EU Blood Pressure 133/73 Pulse 70 bpm Respirations 18 br/min SPO2 Additional ELYL RN Reviewed Yes Specimens Collected Last Modified By: GERMANIA Antunez RN, Ruthann 01/07/20 10:07:41 General Comments: Temp. 36.3 Finalized By: GERMANIA Antunez RN, Ruthann Document Signatures Signed By: Emeli Arguello LPN 01/07/20 09:37 GERMANIA Antunez RN, Ruthann 01/07/20 10:07 Normal [facility] Operative Reporton 0 Operative Report Patient: JORGE [...] with antibiotic coverage, Follow up arranged. Normal [facility] Comment on above: Result Comment: Elec tronically Signed By: MARÍA REYNOSO, David Soni\Date and Time Signed: 01/07/20 10:20 EDT Patient Educationon 01-07-20 Patient Education Custom Cystoscopy ? Voiding after [...] have a fever over 100 degrees. Normal [facility] UroVysion Fish and Urine Cyt o (P4 Labs)on 01-07-2020 [facility] Method of Extraction Voided Normal [facility] Comment on above: Performed By: #### 1 [id number] ####[facility] [address] [place] [address] [facility] Number of Jars 1 [facility] Comment on above: Performed By: #### 1 [id number] ####[facility] [address] [facility] [place] [address] [facility] Specimen Urine Normal [facility] Comment on above: Performed By: #### 1 [id number] ####[facility] [address] [place] [address] [facility] Type of Service Technical Only [facility] Comment on above: Performed By: #### 1 [id number] ####[facility] [address] [place] [address] ALLIED HEALTHon 12-24-2019 ALLIED HEALTH HNO ID: [id number] Author: ERICA Ibarra (Ct) Service: Radiology Author Type: Hides Soaker Type: Allied Health Filed: 12/24/2019 9:54 AM [...] DATE: December 24, 2019 TIME: 9:[address] [facility] [address] PULMONARY VEIN W IVCONon 12-24-2019 [...] 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 Spiral [...] is identified in the axilla, mediastinum, and jooã. There is a calcified right hilar lymph [...] as dissection, intramural hematoma, or contained rupture. Network Operations Lead dimensions of the thoracic aorta are as [...] CT exam in 3 months is recommended. Wire Annealer: LELIA Transcribe Date/Time: Dec 24 2019 11:12A Dictated by : SARA SIMPSON MD This examination was interpreted and the report reviewed and electronically signed by: SARA SIMPSON MD on Dec 24 2019 12:47PM EST [id number] N ACTIONABLE [facility] NURSING PROGon 12-24-2019 NURSING PROG HNO ID: [id number] Author: Arlene (Rn) CONSTANTIN Chowdhury Service: Nursing Author Type: Registered Nurse Type: Nursing Progress Note Filed: 12/24/2019 11:00 AM Note Text: Nursing Progress Note Topic of Note: Daily Note Jorge Davis [id number] Pt SR. Procedure cancelled. H/L removed from CT scan. Dr. Nelson spoke with p0t. This note was completed by: Arlene Chowdhury RN [facility] PROGRESSon 12-24-2019 PROGRESS HNO ID: [id number] Author: Ezequiel Nelson Service: Electrophysiology Author Type: Physician Type: Progress Notes Filed: 12/24/2019 10:44 AM Note Text: Scheduled for cardioversion, but in SR upon arrival. [facility] Scooter 12-18-2019 CNPN Telephone (FVPRAD) JORGE DAVIS ([id number]) 1945 [place]* Date Time Provider Department 12/18/19 SHAMA IBANEZ) [...] He will get labs done tomorrow at [place] Sending to procedure schedulers for cardioversion scheduling. If possible try to arrange on 12/23 at in early afternoon as he will already be here and NPO for CT scan. If not possible on that day then please schedule at [place] with available provider at patient's convenience Shama Ibanez PA-C. Johnny Diaz 12/19/2019 10:22 AM Signed Pts calling back in regards to below. Would like a return call with questions about the procedure. can be reached at [phone], ok to leave detailed message. Please advise. [...] [I48.19] Order(s):CBC + DIFF [SQCBCDIF] Order #: [id number] FUTURE BASIC METABOLIC PNL [SQBMP] Order #: [id number] FUTURE MAGNESIUM BLD [SQMG1] Order #: [id number] FUTURE PRE-PROCEDURE AND PRE-OPERATIVE COVID [SQPOCOVD] Order #: [id number] FUTURE CARDIOVERSION, ELECTIVE, ELECTRICAL [32614RHJ] Order #: [id number]: 1 Prescriptions as of 12/18/2019 Sig: [email or web address] [...] Atrial fibrillation (HCC) [I48.91] 07/08/2014 Atherosclerosis of jamul coronary artery of na*07/10/2015 Diabetes mellitus type 2, controlled, without c*07/10/2015 Atrial fibrillation, persistent (HCC) [I48.19] 07/22/2015 Paroxysmal atrial fibrillation (HCC) [I48.0] 12/04/2015 Paroxysmal atrial flutter (HCC) [I48.92] 05/30/2018 Obesity, Class III, BMI >= 40 [E66.01] 10/23/2019 Encounter Status:Closed by SHAMA IBANEZ PA-C on 12/18/19 [facility] HOSPon 12-18-2019 HOSP Patient:Jorge Davis MRN: [...] [E78.5] Atrial fibrillation (HCC) [I48.91] Atherosclerosis of jamul 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 If possible try to arrange on 12/23 at in early afternoon as he will already be here and NPO for CT scan. If not possible on that day then please schedule at [place] with available provider at patient's convenience Shama Ibanez PA-C. Johnny Diaz 12/19/2019 10:22 AM Signed Pts calling back in regards to below. Would like a return call with questions about the procedure. can be reached at [phone], ok to leave detailed message. Please advise. Laura Schneider APRN.TATA 12/19/2019 1:50 PM Signed Called . She had questions regarding where to report the day of the CT scan and DCCV. Advised to report to the main lobby and security will direct them to the appropriate locations. Laura Schneider APRN.TATA [facility] NURSING PROGon 10-24-2019 Cholesterol [Mass/Vol] HNO ID: [id number] Author: Nga BriggsRnSilas Garcia RN Service: Nursing Author Type: Registered Nurse Type: Nursing Progress Note Filed: 10/24/2019 11:13 AM Note Text: Nursing Progress Note Topic of Note: Routine Reassessment Jorge Davis [id number] 1110- Patient up in bed. Bilateral groins soft, tender, bilateral DP pulses palpable. Patient states no pain, is unhappy that he is not discharged yet. FLEET MANAGER notified and will be up to D/C soon. This note was completed by: Nga Garcia RN [facility] NURSING PROG HNO ID: [id number] Author: Caridad BriggsRn) CONSTANTIN Alvarez Service: Nursing Author Type: Registered Nurse Type: Nursing Progress Note Filed: 10/24/2019 8:21 AM Note Text: Nursing Progress Note Patient Name: Jorge Davis Patient Location: [id number]/[id number] Daily Note: 0800- Pt sitting up in bed, assessment charted per npr, IV patent, Bilat groins soft, tender,no s/s of any bleeding or infection, bilat pedal pulses palpated,call light within reach,am meds given,no pain,no issues. This note was completed by: Caridad Alvarez RN [facility] ANES POSTPROC EVALon 020 ANES POSTPROC EVAL HNO ID: [id number] Author: Murtaza Bauer Service: ? Author Type: [...] October 23, 2019 TIME: 3:04 PM CSN: [id number] [facility] ANES PRE-OPon 10-23-2019 ANES PRE-OP HNO ID: [id number] Author: Murtaza Bauer Service: ? Author Type: [...] (obstructive sleep apnea) CARDIO (+) Atherosclerosis of jamul coronary artery of jamul heart without angina pectoris (+) Atrial fibrillation [...] October 23, 2019 TIME: 7:27 AM CSN: [id number] Normal [facility] Basic Metabolic Panlon 10-22 Anion gap [Moles/Vol] 15 mmol/L Normal 9-18 [facility] Comment on above: Performed By: #### C BC, BMP #### [address] [phone] Calcium [Mass/Vol] 9.1 mg/dL Normal 8.5-10.5 [facility] Comment on above: Performed By: #### C BC, BMP #### [phone] Chloride [Moles/Vol] 103 mmol/L Normal 98-110 [facility] Comment on above: Performed By: #### C BC, BMP #### [phone] CO2 [Moles/Vol] 21 mmol/L Low 23-32 [facility] Comment on above: Performed By: #### C BC, BMP #### [address] [place] [phone] Creatinine [Mass/Vol] 0.78 mg/dL Normal 0.70-1.40 [facility] Comment on above: Performed By: #### C BC, BMP #### [address] [phone] eGFR- Amer. >60 Normal >60 [facility] Comment on above: Performed By: #### C BC, BMP #### [address] [place] [phone] GFR/1.73 sq M predicted among non-blacks MDRD (S/P/Bld) [Vol rate/Area] mL/min/{1.73_m2} Normal >60 [facility] Comment on above: Performed By: #### C BC, BMP #### [address] [phone] Glucose [Mass/Vol] 124 mg/dL High 65-100 [facility] Comment on above: Performed By: #### C BC, BMP #### [address] [phone] Potassium [Moles/Vol] 4.1 mmol/L Normal 3.5-5.0 [facility] Comment on above: Performed By: #### C BC, BMP #### [address] [phone] Sodium [Moles/Vol] 139 mmol/L Normal 135-146 [facility] Comment on above: Performed By: #### C BC, BMP #### [address] [phone] Urea nitrogen [Mass/Vol] 16 mg/dL Normal 10-25 [facility] Comment on above: Performed By: #### C BC, BMP #### [address] [phone] CBCon 10-23-2019 Absolute nRBC <0.01 Normal <0.01 [facility] Comment on above: Performed By: #### C BC, BMP #### [address] [phone] Erythrocyte distribution width (RBC) [Ratio] 14.7 % Normal 11.5-15.0 [facility] Comment on above: Performed By: #### C BC, BMP #### [address] [place] [phone] Hematocrit (Bld) [Volume fraction] 46.7 % Normal 39.0-51.0 [facility] Comment on above: Performed By: #### C BC, BMP #### [address] [place] [phone] Hemoglobin (Bld) [Mass/Vol] 14.8 g/dL Normal 13.0-17.0 [facility] Comment on above: Performed By: #### C BC, BMP #### [place] [phone] MCH (RBC) [Entitic mass] 28.7 pG Normal 26.0-34.0 [facility] Comment on above: Performed By: #### C BC, BMP #### [address] [place] [phone] MCHC (RBC) [Mass/Vol] 31.7 g/dL Normal 30.5-36.0 [facility] Comment on above: Performed By: #### C BC, BMP #### [place] [phone] MCV (RBC) [Entitic vol] 90.7 fL Normal 80.0-100.0 [facility] Comment on above: Performed By: #### C BC, BMP #### [address] [place] [phone] Platelet mean volume (Bld) [Entitic vol] 10.0 fL Normal 9.0-12.7 [facility] Comment on above: Performed By: #### C BC, BMP #### [address] [place] [phone] Platelets (Bld) [#/Vol] 178 10*3/uL Normal 150-400 [facility] Comment on above: Performed By: #### C BC, BMP #### [address] [place] [phone] RBC (Bld) [#/Vol] 5.15 10*6/uL Normal 4.20-6.00 [facility] Comment on above: Performed By: #### C BC, BMP #### [place] [address] WBC (Bld) [#/Vol] 6.73 10*3/uL Normal 3.70-11.00 [facility] Comment on above: Performed By: #### C BC, BMP #### [place] [address] ECG COMPLETEon 10-23-2019 ECG COMPLETE NAME : JORGE DAVIS PID : [id number] : 1945 Gender : Male Race : ORD : [id number] Procedure Date : Oct 23 2019 14:59:44 Edit Date : Oct 23 2019 17:01:19 Diagnosis:Sinus tachycardia IVCD, consider atypical RBBB Abnormal ECG Confirmed by KATRINA KELLEY MD (79) on 10/23/2019 5:01:18 PM Ventricular Rate : 101 BPM Atrial Rate : 101 BPM P-R Interval : 187 ms QRS Duration : 122 ms Q-T Interval : 386 ms QTC Calculation(Bazett) : 501 ms P Logan : 65 degrees R Logan : -32 degrees T Logan : 54 degrees Test Reason : Post-OP Location : 400 : EKG 6 Overread By : KATRINA KELLEY MD Edited By : KATRINA KELLEY MD Referred By : , Acquired by : [place] [facility] ECG COMPLETE NAME : JORGE DAVIS PID : [id number] : 1945 Gender : Male Race : ORD : [id number] Procedure Date : Oct 23 2019 07:03:28 Edit Date : Oct 23 2019 16:59:50 Diagnosis:Atrial fibrillation Abnormal ECG Confirmed by KATRINA KELLEY MD (79) on 10/23/2019 4:59:48 PM Ventricular Rate : 70 BPM Atrial Rate : 0 BPM P-R Interval : 120 ms QRS Duration : 109 ms Q-T Interval : 437 ms QTC Calculation(Bazett) : 472 ms R Logan : -21 degrees T Logan : 35 degrees Test Reason : Pre OP Location : 400 : EKG 6 Overread By : KATRINA KELLEY MD Edited By : KATRINA KELLEY MD Referred By : , Acquired by : , [facility] HISTORY PHYSICALon 0 HISTORY PHYSICAL HNO ID: [id number] Author: Ruben Denton MD Service: Cardiovascular Disease [...] he couldn,t continue to take it . [facility] decision was made to go under [...] calculus - Obstructive chronic bronchitis with exacerbation ([facility]) COPD - Perianal dermatitis - Tubular adenoma [...] SURGICAL HISTORY OF minor hand surgery - SD ANESTH,TOTAL KNEE ARTHROPLASTY 2006 Right Knee - [...] October 23, 2019 TIME: 6:59 AM PAGER: [phone] CARD EP STAFF Pt seen and examined. The documented findings were individually confirmed, and the history was verified and corrected, if appropriate. I discussed the patient's management with the PA and reviewed their note. Additional Hx/summary is as follows: 74 YO male with persistent AF despite prior DCCV and dofetilide. He presents today for PVAI. Ruben Denton MD [facility] NURSING PROGon 10-23-2019 NURSING PROG HNO ID: [id number] Author: Nacho Hatfield (Rn) CONSTANTIN Mensah Service: Nursing Author Type: Registered Nurse Type: Nursing Progress Note Filed: 10/24/2019 5:41 AM Note Text: Nursing Progress Note Patient Name: Jorge Davis Patient Location: [id number]/[facility] [id number] Pt resting quietly in room. R/L groins soft and without hematoma or bleeding. (Small pink drainage left groin noted). DP pulses palpable. No pain or complaints. FLEET MANAGER cough noted. Cepacol ineffective. Obtained Tessalon perles order. Will administer when available from pharmacy. Pt received home lasix dose at ~1930 from last shift (will remove moses soon.) Tele SR. Will monitor. 2227 Moses removed ~2130. Tolerated well. Pt oob [...] note was completed by: Nacho Mensah RN [facility] NURSING PROG HNO ID: [id number] Author: Marybeth BriggsRn) CONSTANTIN Parr Service: Nursing Author Type: Registered Nurse Type: Nursing Progress Note Filed: 10/23/2019 4:47 PM Note Text: Nursing Progress Note Topic of Note: Daily Note Jorge W Ryan [id number] pt. up to floor via bed [...] note was completed by: Marybeth Parr RN [facility] NURSING PROG HNO ID: [id number] Author: Celeste Andrews) CONSTANTIN Fay Service: Nursing [...] R.N. 1621 Pt. transported [facility] bed to [facility] 308 with all personal belongings. [facility] [facility] Type and Screenon 10-23-2019 ABO/RH(D) Positive Normal [facility] Comment on above: Performed By: #### T SCR ####[phone] Urinalysison 10-23-2019 Bilirubin, Urine Negative Normal Negative [facility] Comment on above: Performed By: #### U A #### [phone] Clarity (U) Clear Normal Clear [facility] Comment on above: Performed By: #### U A #### [phone] Color (U) Light Yellow Critically abnormal Yellow [facility] Comment on above: Performed By: #### U A #### [place] [phone] Comments SEE COMMENT Normal [facility] Comment on above: Result Comment: Micr oscopic not warranted Performed By: #### U A #### [place] [id number] Glucose Ql (U) Negative Normal Negative [facility] Comment on above: Performed By: #### U A #### [place] [id number] Hemoglobin/Blood,Ur Negative Normal Negative [facility] Comment on above: Performed By: #### U A #### [place] [id number] Ketones Ql (U) Negative Normal Negative [facility] Comment on above: Performed By: #### U A #### [place] [id number] Leukest Negative Normal [facility] Comment on above: Performed By: #### U A #### [place] [id number] Nitrite Ql (U) Negative Normal [facility] Comment on above: Performed By: #### U A #### [address] pH (Bld) 6.5 Normal 5.0-8.0 [facility] Comment on above: Performed By: #### U A #### [place] [id number] Protein (U) [Mass/Vol] Negative Normal [facility] Comment on above: Performed By: #### U A #### [place] [id number] Specific [place], Ur 1.015 Normal 1.005-1.030 [facility] Comment on above: Performed By: #### U A #### [place] [id number] Urobilinogen Qn (U) Negative Normal Negative [facility] Comment on above: Performed By: #### U A #### [place] [id number] Lab Reportson 10-11-2019 Lab Reports [id number]. 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 Physician: Ruben Denton MD RN, RN 10/22/2019 4:[address] Thomas instructions available in [facility] patient advised to hold Eliquis the morning of his procedure. HE stated understanding. Carmelina Bender RN Progress Notes (CARD EPS MAIN): Jessikaemma Villegas [facility] 10/14/2019 3:44 PM Signed October 14, 2019 3:43 PM Patient Name: Jorge Davis [id number] Contact Information: [phone] (home) [phone] (cell) Last visit with EP Provider: 04/19/2019 Reason for Call: Received partially completed application for [employer] with documentation from patient; gave to nurse to complete physician section Physician: Ruben Denton MD, RN, RN 10/16/2019 9:51 AM Signed [facility] Usha Bonilla RN [facility] NURSING PROGon 09-18-2019 NURSING PROG HNO ID: [id number] Author: Arlene (Rn) CONSTANTIN Chowdhury Service: Nursing Author Type: Registered Nurse Type: Nursing Progress Note Filed: 09/18/2019 9:57 AM Note Text: Nursing Progress Note Topic of Note: Daily Note Jorge Davis [id number] Pre op done. INR 4.3. Repeat in [...] note was completed by: Arlene Chowdhury RN [facility] Protimeon 09-18-2019 PT Coag (PPP) [Time] 51.3 s High 9.7-13.0 [facility] Comment on above: Performed By: #### P T #### [place] [id number] [place] [address] PT Coag (PPP) [Time] 5.0 s High 0.9-1.3 [facility] Comment on above: Result Comment: Ashlie min K Antagonist (VKA) Therapeutic Range: INR 2 to 3 (Target INR of 2.5) Note: For patients treated with VKA drugs, such as warfarin, the [employer] 2012 Guideline recommends [...] [phone] Performed By: #### P T #### [place] [address] Type and Screenon 09-18-2019 ABO/RH(D) Positive Normal [facility] Comment on above: Performed By: #### T SCR ####[address] [id number] HOSPon 06-17-2019 HOSP Patient:Jorge Davis MRN: Height:5' [...] [E78.5] Atrial fibrillation (HCC) [I48.91] Atherosclerosis of jamul coronary artery of jamul heart without angina pectoris [I25.10] Diabetes mellitus type 2, controlled, without complications (HCC) [E11.9] Persistent atrial fibrillation (HCC) [I48.19] Paroxysmal atrial fibrillation (HCC) [I48.0] Paroxysmal atrial flutter (HCC) [I48.92] Allergies: No Known Allergies Date Verified:09/11/19 Lab Values Lab Value Units Date High Low POTA* 4.3 mmol/L 09/11/2019 5.1 3.7 FISH* 50.1 % 09/11/2019 51.0 39.0 [facility] RT Chava 09/11/2019 3:23 PM Signed Radiology [...] 11, 2019 3:22 PM Progress Notes (CARD [facility] REJ): Venkat Evans MD 09/11/2019 2:16 PM Signed [place]: [place] [id number] [facility] [address] Primary Care Physician: Declan Swanson MD Jorge Davis is a 74 year old male that presents today for evaluation of NON OBS Coronary artery disease involving jamul coronary artery of jamul heart without angina pectoris Paroxysmal A-fib (HCC) [...] this pm 2. Coronary artery disease involving jamul coronary artery of jamul heart without angina pectoris - ICD9: 414.01, [...] ?ms QTC Calculation(Bazett) : 457 ?ms R Logan : 0 ?degrees T Logan : 49 ?degrees PAST MEDICAL HISTORY Diagnosis [...] SURGICAL HISTORY OF minor hand surgery - SD ANESTH,TOTAL KNEE ARTHROPLASTY 2006 Right Knee - [...] 69 Venkat Evans MD Previous Version Normal [facility] Vital Signs Date Time Vital Sign Value Performing Clinician Facility 09-06-2024 08:23-0400 Body height 165.1 cm Declan Ball DO Work Phone: [facility] 09-06-2024 08:23-0400 Body mass index (BMI) [Ratio] 44.9 kg/m2 Declan Ball DO Work Phone: [facility] 09-06-2024 08:23-0400 Body weight 122.58 kg Declan Ball DO Work Phone: [facility] 09-06-2024 08:23-0400 Diastolic blood pressure 77 mm[Hg] Declan Ball DO Work Phone: [facility] 09-06-2024 08:23-0400 Heart rate 53 /min Declan Ball DO Work Phone: [facility] 09-06-2024 08:23-0400 Respiratory rate 12 /min Declan Ball DO Work Phone: [facility] 09-06-2024 08:23-0400 SaO2% (BldA) [Mass fraction] 98 % Declan Ball DO Work Phone: [facility] 09-06-2024 08:23-0400 Systolic blood pressure 134 mm[Hg] Declan Ball DO Work Phone: [facility] 09-02-2024 11:31-0400 Body height 165.1 cm Christopher Trevizo DPM Work Phone: [facility] 09-02-2024 11:31-0400 Body mass index (BMI) [Ratio] 42.93 kg/m2 Christopher Trevizo DPM Work Phone: [facility] 09-02-2024 11:31-0400 Body weight 117.03 kg Christopher Trevizo DPM Work Phone: [facility] 09-02-2024 11:31-0400 Respiratory rate 18 /min Christopher Trevizo DPM Work Phone: [facility] 07-31-2024 13:05-0400 Body height 167.64 cm Declan Ball DO Work Phone: [facility] 07-31-2024 13:05-0400 Body mass index (BMI) [Ratio] 43 kg/m2 Declan Ball DO Work Phone: [facility] 07-31-2024 13:05-0400 Body weight 121.1 kg Declan Ball DO Work Phone: [facility] 07-31-2024 13:05-0400 Diastolic blood pressure 72 mm[Hg] Declan Ball DO Work Phone: [facility] 07-31-2024 13:05-0400 Heart rate 80 /min Declan Ball DO Work Phone: [facility] 07-31-2024 13:05-0400 Respiratory rate 16 /min Declan Ball DO Work Phone: [facility] 07-31-2024 13:05-0400 SaO2% (BldA) [Mass fraction] 97 % Declan Ball DO Work Phone: [facility] 07-31-2024 13:05-0400 Systolic blood pressure 138 mm[Hg] Declan Ball DO Work Phone: [facility] 06-12-2024 09:07-0400 Body height 167.64 cm Declan Ball DO Work Phone: [facility] 06-12-2024 09:07-0400 Body mass index (BMI) [Ratio] 43.4 kg/m2 Declan Ball DO Work Phone: [facility] 06-12-2024 09:07-0400 Body weight 122.01 kg Declan Ball DO Work Phone: [facility] 06-12-2024 09:07-0400 Diastolic blood pressure 73 mm[Hg] Declan Ball DO Work Phone: [facility] 06-12-2024 09:07-0400 Heart rate 69 /min Declan Ball DO Work Phone: [facility] 06-12-2024 09:07-0400 Respiratory rate 12 /min Declan Ball DO Work Phone: [facility] 06-12-2024 09:07-0400 SaO2% (BldA) [Mass fraction] 98 % Declan Ball DO Work Phone: [facility] 06-12-2024 09:07-0400 Systolic blood pressure 146 mm[Hg] Declan Ball DO Work Phone: [facility] 05-07-2024 10:06-0500 Body height 167.64 cm Declan Ball DO Work Phone: [facility] 05-07-2024 10:06-0500 Body mass index (BMI) [Ratio] 41.6 kg/m2 Declan Ball DO Work Phone: [facility] 05-07-2024 10:06-0500 Body weight 117.14 kg Declan Ball DO Work Phone: [facility] 05-07-2024 10:06-0500 Diastolic blood pressure 80 mm[Hg] Declan Ball DO Work Phone: [facility] 05-07-2024 10:06-0500 Heart rate 82 /min Declan Ball DO Work Phone: [facility] 05-07-2024 10:06-0500 Respiratory rate 12 /min Declan Ball DO Work Phone: [facility] 05-07-2024 10:06-0500 SaO2% (BldA) [Mass fraction] 98 % Declan Ball DO Work Phone: [facility] 05-07-2024 10:06-0500 Systolic blood pressure 127 mm[Hg] Declan Ball DO Work Phone: [facility] 02-22-2024 09:59-0500 Body height 167.64 cm Declan Ball DO Work Phone: [facility] 02-22-2024 09:59-0500 Body mass index (BMI) [Ratio] 42.1 kg/m2 Declan Ball DO Work Phone: [facility] 02-22-2024 09:59-0500 Body weight 118.38 kg Declan Ball DO Work Phone: [facility] 02-22-2024 09:59-0500 Diastolic blood pressure 62 mm[Hg] Declan Ball DO Work Phone: [facility] 02-22-2024 09:59-0500 Heart rate 62 /min Declan Ball DO Work Phone: [facility] 02-22-2024 09:59-0500 SaO2% (BldA) [Mass fraction] 98 % Declan Ball DO Work Phone: [facility] 02-22-2024 09:59-0500 Systolic blood pressure 128 mm[Hg] Declan Ball DO Work Phone: [facility] 02-13-2024 12:58-0500 Body mass index (BMI) [Ratio] 44.1 kg/m2 Alix Barrios APRN.[employer] Work Phone: [facility] 02-13-2024 12:58-0500 Body weight 120.2 kg Alix Barrios APRN.[employer] Work Phone: [facility] 02-13-2024 12:58-0500 Diastolic blood pressure 68 mm[Hg] Alix Barrios APRN.[employer] Work Phone: [facility] 02-13-2024 12:58-0500 Heart rate 66 /min Alix Barrios APRN.[employer] Work Phone: [facility] 02-13-2024 12:58-0500 SaO2% (BldA) [Mass fraction] 96 % Alix Barrios APRN.[employer] Work Phone: [facility] 02-13-2024 12:58-0500 Systolic blood pressure 134 mm[Hg] Alix Aranavin HUFF Work Phone: [facility] 12-18-2023 10:49-0400 Body height 167.64 cm [facility] 12-18-2023 10:49-0400 Body mass index (BMI) [Ratio] 41.6 kg/m2 [facility] 12-18-2023 10:49-0400 Body weight 117.02 kg [facility] 12-18-2023 10:49-0400 Diastolic blood pressure 83 mm[Hg] [facility] 12-18-2023 10:49-0400 Heart rate 76 /min [facility] 12-18-2023 10:49-0400 Respiratory rate 76 /min [facility] 12-18-2023 10:49-0400 Systolic blood pressure 151 mm[Hg] [facility] 12-08-2023 11:03-0400 Body mass index (BMI) [Ratio] 43.43 kg/m2 Venkat Emanuel MD Work Phone: [facility] 12-08-2023 11:03-0400 Body weight 118.39 kg Venkat Emanuel MD Work Phone: [facility] 12-08-2023 11:03-0400 Diastolic blood pressure 80 mm[Hg] Venkat Emanuel MD Work Phone: [facility] 12-08-2023 11:03-0400 Heart rate 88 /min Venkat Emanuel MD Work Phone: [facility] 12-08-2023 11:03-0400 SaO2% (BldA) [Mass fraction] 97 % Venkat Emanuel MD Work Phone: [facility] 12-08-2023 11:03-0400 Systolic blood pressure 142 mm[Hg] Venkat Emanuel MD Work Phone: [facility] 08-21-2023 11:37-0400 Body height 167.64 cm [facility] 08-21-2023 11:37-0400 Body mass index (BMI) [Ratio] 41.3 kg/m2 [facility] 08-21-2023 11:37-0400 Body weight 116.28 kg [facility] 08-21-2023 11:37-0400 Diastolic blood pressure 77 mm[Hg] [facility] 08-21-2023 11:37-0400 Heart rate 85 /min [facility] 08-21-2023 11:37-0400 Respiratory rate 12 /min [facility] 08-21-2023 11:37-0400 Systolic blood pressure 128 mm[Hg] [facility] 08-09-2023 13:44-0400 Body height 167.64 cm [facility] 08-09-2023 13:44-0400 Body mass index (BMI) [Ratio] 42.1 kg/m2 [facility] 08-09-2023 13:44-0400 Body weight 118.38 kg [facility] 08-09-2023 13:44-0400 Diastolic blood pressure 76 mm[Hg] [facility] 08-09-2023 13:44-0400 Heart rate 85 /min [facility] 08-09-2023 13:44-0400 Respiratory rate 16 /min [facility] 08-09-2023 13:44-0400 Systolic blood pressure 136 mm[Hg] [facility] 07-04-2023 08:58-0400 Body height 165.1 cm Shama Ibanez PA-C Work Phone: [facility] 07-04-2023 08:58-0400 Body mass index (BMI) [Ratio] 44.5 kg/m2 Shama Ibanez PA-C Work Phone: [facility] 07-04-2023 08:58-0400 Body weight 121.3 kg Shama Ibanez PA-C Work Phone: [facility] 07-04-2023 08:58-0400 Diastolic blood pressure 78 mm[Hg] Shama Ibanez PA-C Work Phone: [facility] 07-04-2023 08:58-0400 Heart rate 80 /min Shama Ibanez PA-C Work Phone: [facility] 07-04-2023 08:58-0400 Systolic blood pressure 146 mm[Hg] Shama Ibanez PA-C Work Phone: [facility] 06-05-2023 13:48-0400 Body weight 120.2 kg Venkat Emanuel MD Work Phone: [facility] 06-05-2023 13:48-0400 Diastolic blood pressure 78 mm[Hg] Venkat Emanuel MD Work Phone: [facility] 06-05-2023 13:48-0400 Heart rate 74 /min Venkat Emanuel MD Work Phone: [facility] 06-05-2023 13:48-0400 Systolic blood pressure 124 mm[Hg] Venkat Emanuel MD Work Phone: [facility] 03-23-2023 11:00-0500 Body height 167.64 cm Declan Ball Other [employer] Other 03-23-2023 11:00-0500 Body mass index (BMI) [Ratio] 43.15 kg/m2 Declan Ball Other [employer] Other 03-23-2023 11:00-0500 Body weight 121.29 kg Declan Ball Other [employer] Other 03-23-2023 11:00-0500 Diastolic blood pressure 89 mm[Hg] Declan Ball Other [employer] Other 03-23-2023 11:00-0500 Systolic blood pressure 142 mm[Hg] Declan Ball Other [employer] Other 01-03-2023 11:45-0400 Body height 167.64 cm Declan Ball Other [employer] Other 01-03-2023 11:45-0400 Body mass index (BMI) [Ratio] 42.57 kg/m2 Declan Ball Other [employer] Other 01-03-2023 11:45-0400 Body weight 119.66 kg Declan Ball Other [employer] Other 01-03-2023 11:45-0400 Diastolic blood pressure 78 mm[Hg] Declan Ball Other [employer] Other 01-03-2023 11:45-0400 Respiratory rate 16 /min Declan Ball Other [employer] Other 01-03-2023 11:45-0400 Systolic blood pressure 128 mm[Hg] Declan Ball Other [employer] Other 12-14-2022 11:30-0400 Body height 167.64 cm Declan Ball Other [employer] Other 12-14-2022 11:30-0400 Body mass index (BMI) [Ratio] 43.61 kg/m2 Declan Ball Other [employer] Other 12-14-2022 11:30-0400 Body weight 122.56 kg Declan Ball Other [facility] Other 12-14-2022 11:30-0400 Diastolic blood pressure 86 mm[Hg] Declan Ball Other [employer] Other 12-14-2022 11:30-0400 Respiratory rate 12 /min Declan Ball Other [employer] Other 12-14-2022 11:30-0400 Systolic blood pressure 141 mm[Hg] Declan Ball Other [employer] Other 12-13-2022 09:58-0400 Diastolic blood pressure 70 mm[Hg] DO Declan Ball Work Phone: [facility] 12-13-2022 09:58-0400 Heart rate 56 /min DO Declan Ball Work Phone: [facility] 12-13-2022 09:58-0400 Respiratory rate 16 /min DO Declan Ball Work Phone: [facility] 12-13-2022 09:58-0400 SaO2% (BldA) [Mass fraction] 95 % DO Declan Ball Work Phone: [facility] 12-13-2022 09:58-0400 Systolic blood pressure 149 mm[Hg] DO Declan Ball Work Phone: [facility] 12-13-2022 09:15-0400 Inhaled oxygen flow rate 3 L/min DO Declan Ball Work Phone: [facility] 12-13-2022 08:53-0400 Body height 157.48 cm DO Declan Ball Work Phone: [facility] 12-13-2022 08:53-0400 Body weight 120.2 kg DO Declan Ball Work Phone: [facility] 11-04-2022 14:45-0400 Body height 167.64 cm Declan Ball Other [facility] [employer] Other 11-04-2022 14:45-0400 Body mass index (BMI) [Ratio] 43.64 kg/m2 Declan Ball Other [email or web address] [facility] [employer] Other 11-04-2022 14:45-0400 Body weight 122.65 kg Declan Ball Other [email or web address] [facility] [employer] Other 11-04-2022 14:45-0400 Diastolic blood pressure 87 mm[Hg] Declan Ball Other [employer] Other 11-04-2022 14:45-0400 Respiratory rate 16 /min Declan Ball Other [employer] Other 11-04-2022 14:45-0400 Systolic blood pressure 148 mm[Hg] Declan Ball Other [employer] Other 10-13-2022 11:00-0400 Body height 167.64 cm Declan Ball Other [employer] Other 10-13-2022 11:00-0400 Body mass index (BMI) [Ratio] 43.41 kg/m2 Declan Ball Other [employer] Other 10-13-2022 11:00-0400 Body weight 122.02 kg Declan Ball Other [employer] Other 10-13-2022 11:00-0400 Diastolic blood pressure 75 mm[Hg] Declan Ball Other [employer] Other 10-13-2022 11:00-0400 Respiratory rate 16 /min Declan Ball Other [employer] Other 10-13-2022 11:00-0400 Systolic blood pressure 132 mm[Hg] Declan Ball Other [employer] Other 09-15-2022 09:15-0400 Body height 167.64 cm Declan Ball Other [employer] Other 09-15-2022 09:15-0400 Body mass index (BMI) [Ratio] 43.22 kg/m2 Declan Ball Other [employer] Other 09-15-2022 09:15-0400 Body weight 121.47 kg Declan Ball Other [employer] Other 09-15-2022 09:15-0400 Diastolic blood pressure 81 mm[Hg] Declan Ball Other [employer] Other 09-15-2022 09:15-0400 Respiratory rate 12 /min Declan Ball Other [employer] Other 09-15-2022 09:15-0400 Systolic blood pressure 139 mm[Hg] Declan Ball Other [employer] Other 08-16-2022 11:30-0400 Body height 167.64 cm Declan Ball Other [employer] Other 08-16-2022 11:30-0400 Body mass index (BMI) [Ratio] 43.19 kg/m2 Declan Ball Other [employer] Other 08-16-2022 11:30-0400 Body weight 121.38 kg Declan Ball Other [employer] Other 08-16-2022 11:30-0400 Diastolic blood pressure 73 mm[Hg] Declan Ball Other [employer] Other 08-16-2022 11:30-0400 Respiratory rate 12 /min Declan Ball Other [employer] Other 08-16-2022 11:30-0400 Systolic blood pressure 124 mm[Hg] Declan Ball Other [employer] Other 06-24-2022 14:14-0400 Body height 165.1 cm Ruben Denton MD Work Phone: [facility] 06-24-2022 14:14-0400 Body weight 122.02 kg Ruben Denton MD Work Phone: [facility] 06-24-2022 14:14-0400 Diastolic blood pressure 82 mm[Hg] Ruben Denton MD Work Phone: [facility] 06-24-2022 14:14-0400 Heart rate 69 /min Ruben Denton MD Work Phone: [facility] 06-24-2022 14:14-0400 Systolic blood pressure 155 mm[Hg] Ruben Denton MD Work Phone: [facility] 05-16-2022 11:30-0500 Body height 167.64 cm Declan Ball Other [employer] Other 05-16-2022 11:30-0500 Body mass index (BMI) [Ratio] 44.87 kg/m2 Declan Ball Other [employer] Other 05-16-2022 11:30-0500 Body weight 126.1 kg Declan Ball Other [facility] Other 05-16-2022 11:30-0500 Diastolic blood pressure 82 mm[Hg] Declan Ball Other [employer] Other 05-16-2022 11:30-0500 Respiratory rate 12 /min Declan Ball Other [employer] Other 05-16-2022 11:30-0500 SaO2% (BldA) [Mass fraction] 97 % Declan Ball Other [facility] Other 05-16-2022 11:30-0500 Systolic blood pressure 122 mm[Hg] Declan Ball Other [facility] Other 03-22-2022 09:30-0500 Body height 167.64 cm Declan Ball Other [facility] Other 03-22-2022 09:30-0500 Body mass index (BMI) [Ratio] 44.41 kg/m2 Declan Ball Other [facility] Other 03-22-2022 09:30-0500 Body weight 124.83 kg Declan Ball Other [facility] Other 03-22-2022 09:30-0500 Diastolic blood pressure 82 mm[Hg] Declan Ball Other [facility] Other 03-22-2022 09:30-0500 Respiratory rate 20 /min Declan Ball Other [facility] Other 03-22-2022 09:30-0500 Systolic blood pressure 122 mm[Hg] Declan Ball Other [facility] Other 12-31-2021 13:06-0400 Body weight 122.02 kg Venkat Emanuel MD Work Phone: [facility] 12-31-2021 13:06-0400 Diastolic blood pressure 70 mm[Hg] Venkat Emanuel MD Work Phone: [facility] 12-31-2021 13:06-0400 Heart rate 84 /min Venkat Emanuel MD Work Phone: [facility] 12-31-2021 13:06-0400 SaO2% (BldA) [Mass fraction] 97 % Venkat Emanuel MD Work Phone: [facility] 12-31-2021 13:06-0400 Systolic blood pressure 110 mm[Hg] Venkat Emanuel MD Work Phone: [facility] 06-25-2021 13:14-0400 Body height 165.1 cm Ruben Denton MD Work Phone: [facility] 06-25-2021 13:14-0400 Body weight 124.74 kg Ruben Denton MD Work Phone: [facility] 06-25-2021 13:14-0400 Diastolic blood pressure 80 mm[Hg] Ruben Denton MD Work Phone: [facility] 06-25-2021 13:14-0400 Heart rate 69 /min Ruben Denton MD Work Phone: [facility] 06-25-2021 13:14-0400 Systolic blood pressure 132 mm[Hg] Ruben Denton MD Work Phone: [facility] 05-20-2021 10:00-0500 Body height 167.64 cm [facility] Other [facility] Other 05-20-2021 10:00-0500 Body mass index (BMI) [Ratio] 43.9 kg/m2 [facility] Other [facility] Other 05-20-2021 10:00-0500 Body weight 123.38 kg [facility] Other [facility] Other Encounters Encounter Date Encounter Type Care Provider Facility Start: 10-30-2024 End: 10-31-2024 Telephone encounter Ruben Denton MD Work Phone: Cardiology Start: 09-10-2024 End: 09-10-2024 Office outpatient visit 15 minutes John Churchill DO Work Phone: [facility] Comment on above: Dry eyes (Primary Dx ); Blepharitis of upper and lower eyelids of both eyes, unspecified type Start: 09-10-2024 End: 09-10-2024 ambulatory JOHN CHURCHILL Not Available Start: 09-10-2024 End: 09-10-2024 Bamboo flowsheet John Churchill DO Work Phone: [facility] Start: 09-10-2024 End: 09-10-2024 Bamboo flowsheet John Churchill DO Work Phone: [facility] Start: 09-06-2024 End: 09-06-2024 ambulatory Declan Swanson DO Work Phone: [facility] Work Phone: Start: 09-06-2024 End: 09-06-2024 Patient encounter procedure Declan Swanson DO -[facility] Work Phone: Start: 09-02-2024 End: 09-02-2024 Bamboo [...] feet Start: 07-31-2024 End: 07-31-2024 ambulatory Yvan Edilson Jayashreeharley Facility:[facility] Start: 07-31-2024 End: 07-31-2024 Patient encounter procedure Declan Swanson DO Work Phone: [facility] Work Phone: Start: 06-26-2024 End: 07-11-2024 Telephone encounter Ruben Denton MD Work Phone: Cardiology Start: 06-15-2024 Non-patient / Non-visit Gera in Teo PEDROZA Work Phone: [facility] Work Phone: Start: 06-12-2024 End: 06-12-2024 ambulatory Declan Swanson DO Work Phone: [facility] Work Phone: Start: 06-12-2024 End: 06-12-2024 Patient encounter procedure Declan Swanson DO Work Phone: [facility] Work Phone: Start: 05-07-2024 End: 05-07-2024 ambulatory Declan Ball DO Work Phone: [facility] Work Phone: Start: 05-07-2024 End: 05-07-2024 Patient encounter procedure Declan Teo DO Work Phone: [facility] Work Phone: Start: 05-01-2024 End: 07-11-2024 Telephone encounter Ruben Denton MD Work Phone: Cardiology Start: 04-23-2024 End: 04-23-2024 ambulatory Declan Swanson DO Work Phone: [facility] Work Phone: Start: 04-23-2024 End: 04-23-2024 Patient encounter procedure Declan Ball DO Work Phone: [facility] Work Phone: Start: 04-03-2024 End: 04-05-2024 Telephone encounter Ruben Denton MD Work Phone: Cardiology Comment on above: Results (INR) Start: 02-22-2024 End: 02-22-2024 Patient encounter procedure Declan Swanson DO Work Phone: [facility] Work Phone: Start: 02-21-2024 End: 02-21-2024 Telephone encounter Ruben Denton MD Work Phone: Cardiology Comment on above: Results (labs) Start: 02-21-2024 Non-patient / Non-visit Benjam in Teo DO Work Phone: [facility] Work Phone: Start: 02-13-2024 End: 02-13-2024 Patient encounter procedure Alix Barrios APRN.MEDIA RELATIONS INTERN Work Phone: Cardiology Comment on above: Primary hypertension (Primary Dx); Atherosclerosis of jamul coronary artery of jamul heart without angina pectoris; Atrial fibrillation, persistent (HCC); Chronic diastolic heart failure (HCC); Mixed hyperlipidemia Start: 02-13-2024 Non-patient / Non-visit Bradam in [facility] Work Phone: [facility] Work Phone: Start: 02-13-2024 End: 02-13-2024 ambulatory [facility] Start: 02-07-2024 End: 02-09-2024 Telephone encounter Ruben Denton MD Work Phone: Cardiology Comment on above: Results Start: 01-24-2024 End: 01-24-2024 Telephone encounter Ruben Denton MD Work Phone: Cardiology Start: 12-19-2023 End: 12-19-2023 Telephone encounter Venkat Evans MD Work Phone: Cardiology Start: 12-18-2023 End: 12-18-2023 ambulatory [facility] Work Phone: Start: 12-18-2023 End: 12-18-2023 Patient encounter procedure [facility] Work Phone: Start: 12-18-2023 Non-patient / Non-visit [facility] Work Phone: Start: 12-12-2023 End: 12-12-2023 Telephone encounter Ruben Denton MD Work Phone: Cardiology Comment on above: Received Outside Med ical Records Start: 12-08-2023 Non-patient / Non-visit [facility] Work Phone: Start: 12-08-2023 End: 12-08-2023 ambulatory [facility] Start: 12-08-2023 End: 12-08-2023 Office outpatient visit 25 minutes Venkat Evans MD Work Phone: Cardiology Comment on above: Chronic diastolic he art failure (HCC) (Primary Dx); Atrial fibrillation, persistent (HCC); Obesity, Class III, 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); Mixed hyperlipidemia; Coronary artery disease involving jamul coronary artery of jamul heart without angina pectoris Start: 12-08-2023 End: 12-08-2023 [facility] Facility:[facility] Start: 12-07-2023 Non-patient / Non-visit [facility] Work Phone: Start: 12-06-2023 Non-patient / Non-visit [facility] Work Phone: Start: 12-05-2023 Non-patient / Non-visit [facility] Work Phone: Start: 11-15-2023 [...] ical Records Start: 08-21-2023 End: 08-21-2023 ambulatory [facility] Work Phone: Start: 08-21-2023 End: 08-21-2023 Patient encounter procedure [facility] Work Phone: Start: 08-09-2023 End: 08-09-2023 ambulatory [facility] Work Phone: Start: 08-09-2023 End: 08-09-2023 Patient encounter procedure [facility] Work Phone: Start: 07-25-2023 Telephone encounter [...] ical Records Start: 06-23-2023 End: 06-23-2023 ambulatory [facility] Work Phone: Start: 06-23-2023 End: 06-23-2023 Patient encounter procedure [facility] Work Phone: Start: 06-05-2023 End: 06-05-2023 [...] 03-23-2023 End: 03-23-2023 ambulatory Declan Swanson Other [employer] Other Start: 03-23-2023 Office outpatient vi sit 15 minutes Declan Swanson [facility] Start: 02-07-2023 Telephone encounter Ruben murillo MD [...] 01-03-2023 End: 01-03-2023 ambulatory Declan Swanson Other [employer] Other Start: 01-03-2023 Office outpatient vi sit 15 minutes Declan Ball [facility] Start: 01-03-2023 Telephone encounter Declan Swanson [facility] Start: 01-02-2023 End: 01-02-2023 ambulatory Declan Ball Other [employer] Other Start: 01-02-2023 Office outpatient vi sit 15 minutes Declan Ball [facility] Start: 12-23-2022 Telephone encounter Ruben murillo MD Work Phone: Cardiology Comment on above: Received Outside Med ical Records Start: 12-20-2022 End: 12-20-2022 ambulatory Ruben Celis Other [employer] Other Start: 12-20-2022 Office outpatient vi sit 15 minutes Ruben Celis [facility] Start: 12-14-2022 End: 12-14-2022 ambulatory Declan Swanson Other [employer] Other Start: 12-14-2022 Office outpatient vi sit 25 minutes Declan Ball [facility] Start: 12-13-2022 (Procedure) Short Ruben Celis [facility] Start: 12-13-2022 End: 12-13-2022 Admission to same day surgery center DO Declan Ball Work Phone: [facility] Work Phone: Start: 12-13-2022 End: 12-13-2022 ambulatory DO Declan Swanson Work Phone: [facility] Work Phone: Start: 11-24-2022 End: 11-24-2022 Patient encounter procedure DO Declan Swanson Work Phone: [facility] [address] Work Phone: Start: 11-24-2022 End: 11-24-2022 ambulatory DO Declan Swanson Work Phone: [facility] Work Phone: Start: 11-24-2022 Telephone encounter Declan [facility]AN [facility] Start: 11-04-2022 End: 11-04-2022 ambulatory Declan Swanson Other [employer] Other Start: 11-04-2022 Office outpatient vi sit 15 minutes Declan Swanson [facility] Start: 11-04-2022 Telephone encounter Declan BRYAN [facility] Start: 10-28-2022 Telephone encounter Ruben murillo MD Work Phone: Cardiology Comment on above: [facility] Start: 10-26-2022 End: 10-26-2022 ambulatory Ruben Celis Other [employer] Other Start: 10-26-2022 Office outpatient vi sit 25 minutes Ruben Celis [facility] Start: 10-24-2022 End: 10-24-2022 ambulatory Declan Swanson Other [employer] Other Start: 10-24-2022 Telephone encounter Declan [facility]AN [facility] Start: 10-13-2022 End: 10-13-2022 ambulatory Declan Swanson Other [employer] Other Start: 10-13-2022 Office outpatient vi sit 15 minutes Declan Swanson [facility] Start: 10-13-2022 Telephone encounter Ruben murillo MD Work Phone: Cardiology Comment on above: Received Outside Med ical Records Start: 10-12-2022 Office outpatient vi sit 25 minutes Bruce Shine II [facility] Start: 10-12-2022 End: 10-12-2022 ambulatory DO Declan Swanson Work Phone: [facility] Work Phone: Start: 10-12-2022 End: 10-12-2022 Patient encounter procedure DO Declan Ball Work Phone: [facility] Start: 09-16-2022 Telephone encounter Ruben murillo MD Work Phone: Cardiology Comment on above: Received Outside Med ical Records (INR Report) Start: 09-15-2022 End: 09-15-2022 ambulatory Declan Ball Other [employer] Other Start: 09-15-2022 Office outpatient vi sit 15 minutes Declan Swanson [facility] Start: 09-07-2022 Telephone encounter Venkat gomez MD Work Phone: Cardiology Comment on above: Results Start: 09-01-2022 Telephone encounter Ruben murillo MD Work Phone: Cardiology Comment on above: Received Outside Med ical Records Start: 08-31-2022 End: 08-31-2022 ambulatory Declan Ball Other [employer] Other Start: 08-31-2022 Telephone encounter Declan Swanson [facility] Start: 08-29-2022 End: 08-29-2022 ambulatory Declan Ball Other [employer] Other Start: 08-29-2022 Telephone encounter Declan Swanson FP [facility] Start: 08-16-2022 End: 08-16-2022 ambulatory Declan Ball Other [employer] Other Start: 08-16-2022 Patient encounter procedure Declan Ball [facility] Start: 08-16-2022 Telephone encounter Declan BRYAN [facility] Start: 07-21-2022 Telephone encounter Ruben murillo MD Work Phone: Cardiology Comment on above: Received Outside Med ical Records Start: 07-14-2022 Telephone encounter Venkat gomez MD Work Phone: Cardiology Comment on above: Results Start: 07-11-2022 End: 08-10-2022 ambulatory [facility] Facility:[facility] Start: 06-27-2022 End: 06-27-2022 ambulatory Bruce Shine II Other [email or web address] [facility] [employer] Other Start: 06-27-2022 Telephone encounter Ruben murillo [...] Class III, BMI >= 40; Atherosclerosis of jamul coronary artery of jamul heart without angina pectoris Start: 06-23-2022 Telephone encounter Ruben murillo MD Work Phone: Cardiology Comment on above: Received Outside Med ical Records Start: 06-13-2022 End: 07-08-2022 ambulatory SHAIKH Julianne MORALES Facility:[facility] Start: 05-27-2022 Telephone encounter Ruben murillo MD Work Phone: Cardiology Comment on above: Received Outside Med ical Records Start: 05-16-2022 End: 05-17-[address] DECLAN SWANSON [facility] [employer] Other Start: 05-16-2022 Office outpatient vi sit 25 minutes Declan HALL [facility] Start: 05-11-2022 End: 06-10-[address] DECLAN SWANSON Facility:[facility] Start: 04-27-2022 End: 04-27-2022 ambulatory Declan Swanson Other [employer] Other Start: 04-27-2022 Telephone encounter Declan Swanson [facility] Start: 04-13-2022 End: 05-11-[address] DECLAN SWANSON Facility:[facility] Start: 03-22-2022 End: 03-22-2022 ambulatory Declan Swanson Other [employer] Other Start: 03-22-2022 Office outpatient vi sit 15 minutes Declan Swanson [facility] Start: 03-22-2022 Telephone encounter Declan Swanson FP [facility] Start: 03-21-2022 End: 03-21-2022 ambulatory Declan Swanson Other [employer] Other Start: 03-21-2022 Telephone encounter Declan Swanson FP [facility] Start: 03-14-2022 End: 04-13-2022 ambulatory [...] Start: 01-11-2022 End: 02-09-2022 ambulatory PIERRE H FAWWAD Facility:[facility] Start: 01-05-2022 Telephone encounter [...] atrial fibrillation (HCC); Coronary artery disease involving jamul coronary artery of jamul heart without angina pectoris; Controlled type 2 [...] (HCC); CHRISTIAN (obstructive sleep apnea); Atherosclerosis of jamul coronary artery of jamul heart without angina pectoris; Encounter for current [...] End: 05-20-2021 ambulatory Bruce Shine II Other [employer] Other Start: 05-20-2021 Office outpatient ne w 45 minutes Bruce Shine II [facility] Start: 04-21-2021 Telephone encounter Ruben murillo MD Work Phone: Cardiology Comment on above: Results (PT INR ) Start: 12-29-2020 Adult health examination Kali Swanson Other [employer] Other Procedures Date Procedure Procedure Detail Performing [...] MR lumbar spine wo con DO Declan [employer] Work Phone: Start: 11-24-2022 XR pre/post mri xray DO Declan [employer] Work Phone: Start: 10-12-2022 Plain x-ray of pelvi s and lower extremity DO [employer] Work Phone: Start: 10-12-2022 X-ray of both knees DO [employer] Work Phone: Start: 10-23-2019 Antibody screen Comment on above: Performed By: #### T SCR ####[id number] [place], [place] [id number] Start: 09-18-2019 Antibody screen Comment on above: Performed By: #### T SCR ####[address] [phone] Start: 12-10-2015 Screening for malign ant neoplasm of colon Declan Swanson Other Start: 06-03-2015 General examination of patient Declan Swanson Other Start: 11-04-2013 Screening for malign ant neoplasm of prostate Declan Swanson Other Depression screening Bradami n Teo Other Depression screening Bradami n Te[place] Other H/O: artificial joint [place] Other History of operative procedure on knee [place] Other Screening for malign ant neoplasm of colon [place] Other Screening for malign ant neoplasm of prostate Declan Swanson Other Plan of Treatment Date Care Activity Detail Author Start: 03-16-2033 Urine microalbumin profile DTa P,Tdap,Td Vaccine (2 - Td or Tdap) [facility] Start: 12-02-2024 End: 12-02-2024 Patient encounter procedure 12/02/2024 11:20 AM EDT Procedure Visit [facility] [address] [place] [address] Christopher Trevizo, DEREK [address] [facility] [address] [place] [address] [facility] Start: 11-11-2024 Influenza vaccination Influenza Vacc ine (#1) [facility] Start: 09-10-2024 End: 09-10-2024 Patient encounter procedure 09/10/2024 2:30 PM EDT Office Visit [facility] [address] [place] [id number] John Churchill DO [address] [place] [address] Arrived [facility] Comment on above: Arrived Start: 07-03-2024 Covid-19 Vaccine () Covid-19 Vaccine () [facility] Start: 06-21-2024 End: 06-21-2024 Patient encounter procedure 06/21/2024 11:30 AM EDT Office Visit Cardiology [address] [place] [phone] Ruben Denton MD [address] [place] [address] [place] [address] return in about 8 months (around 02/23/2023 Cardiology Comment on above: return in about 8 mo nths (around 02/23/2023 Start: 06-05-2024 End: 06-05-2024 Patient encounter procedure 06/05/2024 10:20 AM EDT Office Visit Cardiology [address] [place] [address] [place] [address] [place] [address] Return in about 6 months (around 06/06/2024). Cardiology Comment on above: Return in about 6 mo nths (around 06/06/2024). Start: 06-04-2024 BP Controlled (<130/80) BP Con trolled (<130/80) [facility] Start: 04-23-2024 Plain X-ray of left hand XR hand LT min 3V* [facility] Start: 04-23-2024 XR Hand - left GE 3 Views [facility] Start: 03-13-2024 Advance Directive Discussion Advance Directive Discussion [facility] Start: 03-08-2024 End: 03-08-2024 Patient encounter procedure 03/08/2024 2:00 PM EST Office Visit Cardiology [address] [place] [address] Shama Ibanez PA-C [address] [place] [address] [place] in 4-8 weeks to followup Cardiology Comment on above: [place]ER[place] in 4-8 weeks to followup Start: 02-13-2024 End: 02-13-2024 Patient encounter procedure 02/13/2024 1:00 PM EST Office Visit Cardiology [address] [place] [address] Alix Barrios APRN.MEDIA RELATIONS INTERN [address] [place] [address] [place] in 4-8 weeks to followup Cardiology Comment on above: [place] in 4-8 weeks to followup Start: 12-08-2023 End: 12-08-2023 Patient encounter procedure Cardiology Comment on above: echo Return in about 6 mo nths (around 12/06/2023). Start: 12-06-2023 Acid Fast Culture Acid Fast Culture [facility] Start: 11-12-2023 Covid-19 Vaccine ( season) Covid-19 Vaccine ( season) [facility] Start: 11-12-2023 Covid-19 Vaccine ( season) Covid-19 Vaccine ( season) [facility] Start: 11-12-2023 Influenza vaccination [facility] Start: 03-13-2023 Advance Directive Discussion Advance Directive Discussion [facility] Start: 03-13-2023 Behavioral Health Screening Behavioral Health Screening [facility] Start: 03-13-2023 Depression Assessment Depression Ass essment [facility] Start: 12-31-2022 BP CONTROLLED (<130/80) BP CON TROLLED (<130/80) [facility] Start: 12-13-2022 [facility] Start: 11-11-2022 Covid-19 Vaccine () Covid-19 Vaccine () [facility] Start: 11-11-2022 Influenza vaccination [facility] Start: 03-13-2022 ADVANCE DIRECTIVE DISCUSSION ADVANCE DIRECTIVE DISCUSSION [facility] Start: 03-13-2022 DEPRESSION ASSESSMENT DEPRESSION ASS ESSMENT [facility] Start: 11-11-2021 Influenza vaccination INFLUENZA (#1) [facility] Start: 09-18-2021 Hepatitis B surface antibody level LDL CHOLESTEROL [facility] Start: 06-25-2021 End: 08-25-2021 CBC panel - Blood by Automated count CBC Lab Routine Acute on chronic diastolic heart failure (HCC) Primary hypertension Expected: 06/25/2021, Expires: 08/25/2021 [facility] Work Phone: Comment on above: Expected: 06/25/2021 , Expires: 08/25/2021 Start: 06-25-2021 End: 08-25-2021 Comprehensive metabolic 2000 panel - Serum or Plasma COMP METABOLIC PANEL Lab Routine Acute on chronic diastolic heart failure (HCC) Primary hypertension Expected: 06/25/2021, Expires: 08/25/2021 [facility] Work Phone: Comment on above: Expected: 06/25/2021 , Expires: 08/25/2021 Start: 06-25-2021 End: 08-25-2021 LIPID PANEL BASIC LIPID PANEL BASIC Lab Routine Acute on chronic diastolic heart failure (HCC) Primary hypertension Expected: 06/25/2021, Expires: 08/25/2021 [facility] Work Phone: Comment on above: Expected: 06/25/2021 , Expires: 08/25/2021 Start: 05-20-2021 COVID-19 VACCINE (4 - Booster for Moderna series) COVID-19 VACCINE (4 - Booster for Moderna series) [facility] Start: 03-21-2021 Hemoglobin A1c measurement HbA1C [facility] Start: 03-21-2021 Hemoglobin A1c/Hemoglobin.total in Blood HBA1C [facility] Start: 03-17-2021 COVID-19 VACCINE (4 - Booster for Moderna series) COVID-19 VACCINE (4 - Booster for Moderna series) [facility] Start: 03-17-2021 COVID-19 VACCINE (4 - Moderna series) COVID-19 VACCINE (4 - Moderna series) [facility] Start: 03-13-2021 ADVANCE DIRECTIVE DISCUSSION ADVANCE DIRECTIVE DISCUSSION [facility] Start: 03-13-2021 DEPRESSION ASSESSMENT DEPRESSION ASS ESSMENT [facility] Start: 11-11-2020 Influenza vaccination INFLUENZA (#1) [facility] Start: 11-01-2020 COVID-19 VACCINE (3 - Booster for Moderna series) COVID-19 VACCINE (3 - Booster for Moderna series) [facility] Start: 01-17-2020 RSV Vaccine (1 - 1-d ose 75+ series) RSV Vaccine (1 - 1-dose 75+ series) [facility] Start: 11-09-2015 Pneumococcal Vaccine : 65+ (2 - PCV) Pneumococcal Vaccine: 65+ (2 - PCV) [facility] Start: 11-09-2015 Pneumococcal Vaccine : 65+ (2 of 2 - PCV) Pneumococcal Vaccine: 65+ (2 of 2 - PCV) [facility] Start: 11-09-2015 PNEUMOCOCCAL: 65+ (2 - PCV) PNEUMOCOCCAL: 65+ (2 - PCV) [facility] Start: 2010 ADVANCE DIRECTIVE DISCUSSION ADVANCE DIRECTIVE DISCUSSION [facility] Start: 01-11-2010 Medicare Annual Well ness Visit Medicare Annual Wellness Visit [facility] Start: 2005 Hepatitis B Vaccine (1 of 3 - Risk 3-dose series) Hepatitis B Vaccine (1 of 3 - Risk 3-dose series) [facility] Start: 2005 RSV Vaccine (1 - 1-d ose 60+ series) RSV Vaccine (1 - 1-dose 60+ series) [facility] Start: 1995 SHINGRIX VACCINE (1 of 2) SHAH GRIX VACCINE (1 of 2) [facility] Start: 01-17-1964 Urine microalbumin profile [facility] Start: 1963 ANNUAL PCP TEAM LINE DANCER FRANCESCA DISEASE VISIT ANNUAL PCP TEAM CHRONIC DISEASE VISIT [facility] Start: 1963 Anxiety Screening Anxiety Screening [facility] Start: 1963 BP CONTROLLED (<130/80) BP CON TROLLED (<130/80) [facility] Start: 1963 Depression Screening Depression Scre ening [facility] Start: 1963 HEPATITIS C SCREENING HEPATITIS C [facility] Start: 1963 Hepatitis C screening Hepatitis C Sc [facility] Start: 1957 Adult depression scr eening assessment DEPRESSION SCREENING [facility] Start: 1955 3 comp foot exam completed DIABETIC FOOT EXAM [facility] Start: 1955 Diabetic foot examination Diabetic F oot Exam [facility] Start: 1955 Glaucoma screening Dilated Retinal E xam [facility] Start: 1955 Hepatitis B screening URINE ALBUMIN:CREATININE RATIO [facility] Start: 1955 Hepatitis C antibody , confirmatory test DILATED RETINAL EXAM [facility] Comprehensive metabo lic 1999 panel - Serum or Plasma [facility] Comprehensive metabo lic 1999 panel - Serum or Plasma [facility] End: 06-01-2022 ECG COMPLETE ECG COMPLETE ECG Routine Atrial fibrillation, persistent (HCC) 1 Occurrences starting 06/01/2021 until 06/01/2022 [facility] Work Phone: Comment on above: 1 Occurrences starti ng 06/01/2021 until 06/01/2022 End: 06-25-2022 ECG COMPLETE ECG COMPLETE ECG Routine Atrial fibrillation, persistent (HCC) 1 Occurrences starting 06/25/2021 until 06/25/2022 [facility] Work Phone: Comment on above: 1 Occurrences starti ng 06/25/2021 until 06/25/2022 End: 06-25-2023 ECG COMPLETE ECG COMPLETE ECG Routine Atrial fibrillation, persistent (HCC) 1 Occurrences starting 06/24/2022 until 06/25/2023 [facility] Work Phone: Comment on above: 1 Occurrences starti ng 06/24/2022 until 06/25/2023 ECG COMPLETE ECG COMPLETE ECG 06/05/2023 2:22 PM EDT [facility] End: 12-31-2022 Echocardiography ECHO Cardiology Routine Chronic diastolic heart failure (HCC) 1 Occurrences starting 12/31/2021 until 12/31/2022 [facility] Work Phone: Comment on above: 1 Occurrences starti ng 12/31/2021 until 12/31/2022 End: 06-04-2024 Echocardiography ECHO Cardiology Routine Chronic diastolic heart failure (HCC) 1 Occurrences starting 06/05/2023 until 06/04/2024 [facility] Work Phone: Comment on above: 1 Occurrences starti ng 06/05/2023 until 06/04/2024 Patient Education Felter Non Damian gnostic Block [facility] Work Phone: Patient referral [facility] Work Phone: [facility] Immunizations Immunization Date Immunization Notes Care Provider Fa [facility] 12-08-2023 influenza virus vaccine, unspecified formulation John Churchill DO Work Phone: [facility] 01-25-2022 influenza, high dose seasonal, preservative-free Declan Swanson Other [email or web address] [facility] [employer] Other 01-25-2022 influenza virus vaccine, unspecified formulation Ruben Denton MD Work Phone: [facility] 01-20-2021 COVID-19 Vaccine Moderna - Documentation Purposes Only Declan Swanson Other [facility] 12-29-2020 influenza virus vaccine, split virus (incl. purified surface antigen) Declan Swanson Other [facility] [employer] Other 12-29-2020 influenza virus vaccine, unspecified formulation [facility] 06-01-2020 COVID-19 vaccine, fu ll dose (MODERNA) Ruben Denton MD Work Phone: [facility] 05-04-2020 COVID-19 vaccine, fu ll dose (MODERNA) Ruben Denton MD Work Phone: [facility] 01-02-2019 influenza virus vaccine, split virus (incl. purified surface antigen) Declan Swanson Other [facility] [employer] Other 01-02-2019 influenza virus vaccine, unspecified formulation [facility] 12-01-2017 influenza virus vaccine, split virus (incl. purified surface antigen) Declan Swanson Other [facility] [employer] Other 12-01-2017 influenza virus vaccine, unspecified formulation [facility] 12-01-2017 Seasonal trivalent influenza vaccine, adjuvanted, preservative free Ruben Denton MD Work Phone: [facility] 01-08-2016 seasonal influenza, intradermal, preservative free Ruben Denton MD Work Phone: [facility] 12-10-2015 influenza virus vaccine, split virus (incl. purified surface antigen) Declan Swanson Other [facility] [employer] Other 12-10-2015 influenza virus vaccine, unspecified formulation [facility] 12-10-2015 influenza, high dose seasonal, preservative-free Ruben Denton MD Work Phone: [facility] 06-04-2015 pneumococcal conjuga te vaccine, 13 valent Declan Swanson Other [facility] 02-09-2015 influenza, injectabl e, quadrivalent, preservative free Ruben Denton MD Work Phone: [facility] 11-08-2014 pneumococcal polysaccharide vaccine, 23 valent Ruben Denton MD Work Phone: [facility] 11-21-2013 tetanus and diphther ia toxoids, adsorbed, preservative free, for adult use (5 Lf of tetanus toxoid and 2 Lf of diphtheria toxoid) Declan Swanson Other [facility] 12-23-2012 tetanus and diphther ia toxoids, adsorbed, preservative free, for adult use (5 Lf of tetanus toxoid and 2 Lf of diphtheria toxoid) Declan Swanson Other [facility] 12-21-2011 pneumococcal polysaccharide vaccine, 23 valent Declan Swanson Other [facility] Payers Date Payer Category Payer Self-pay [id number] 2019 Private Health Insurance [id number] 2019 Unknown MMO MMO MEDICARE SUPPLEMENT [id number] 2019-Present [phone] [address] [place] [address] Indemnity [id number] 2019 Unknown MMO MMO MEDICARE SUPPLEMENT [id number] 2019-Present [phone] [address] [place] [address] Indemnity [id number] 2010 Medicare MEDICARE MEDICAR E A AND B [id number] 2010-Present [phone] [address] [address] [place] [address] Medicare [id number] 2010 Medicare [id number]. [id number] 1959 Medicare [id number] 2.16.840.1.157282.19 1959 Unknown [id number] 2.16.840.1.563491.19 1945 Unknown [id number] 2.16.840.1.514424.3.579.2. 593 1945 Unknown [id number] 2.16.840.1.787246.3.579.2. 593 1945 Unknown [id number] 2.16.840.1.713286.3.579.2. 593 1945 Unknown [id number] 2.16.840.1.193893.3.579.2. 593 1945 Unknown [id number] 2.16.840.1.023235.3.579.2. 593 1945 Unknown [id number] 2.16.840.1.288340.3.579.2. 593 1945 Unknown [id number] 2.16.840.1.915550.3.579.2. 593 1945 Unknown [id number] 2.16.840.1.873779.3.579.2. 593 1945 Unknown [id number] 2.16.840.1.483209.3.579.2. 593 1945 Unknown [id number] 2.16.840.1.871683.3.579.2. 593 1945 Unknown [id number] 2.16.840.1.146318.3.579.2. 593 1945 Unknown [id number] 2.16.840.1.993243.3.579.2. 593 1945 Unknown [id number] 2.16.840.1.470796.3.579.2. 593 1945 Unknown [id number] 2.16.840.1.929940.3.579.2. 593 1945 Unknown [id number] 2.16.840.1.775524.3.579.2. 593 1945 Unknown [id number] 2.16.840.1.951570.3.579.2. 593 1945 Unknown [id number] 2.16.840.1.405096.3.579.2. 593 1945 Unknown [id number] 2.16.840.1.231001.3.579.2. 593 1945 Unknown [id number] 2.16.840.1.430827.3.579.2. 1259 1945 Unknown [id number] 2.16.840.1.693965.3.579.2. 1259 1945 Unknown [id number] 2.16.840.1.164080.3.579.2. 1259 Unknown [id number] 2.16.840.1.226510.19 Unknown [facility] Health Claims [id number] Unknown [id number] 2.16840.1.941177.3.579.2. 531 Unknown [id number] 2.16.840.1.146316.3.579.2. 531 Social History Date Type Detail Facility Start: 06-18-2013 End: 06-05-2023 Tobacco smoking status NHIS Ex-smoker [facility] End: 12-11-2012 History of tobacco use Current smoker [facility] End: 12-11-2012 History of tobacco use Cigar Smoker [facility] Start: 06-18-2013 End: 06-05-2023 Tobacco use and exposure Smokeless tobacco non-user [facility] Start: 09-18-2020 End: 12-08-2023 Alcohol intake Ex-drinker (finding) [facility] Start: 1945 Sex Assigned At Not on file [facility] Start: 06-15-2021 End: 12-31-2021 Exposure to SARS-CoV-2 (event) Not sure [facility] Work Phone: Start: 06-25-2021 End: 06-05-2023 Sex Assigned At [facility] Start: 1945 Sex Assigned At Male F [facility] Start: 06-25-2021 End: 06-05-2023 History of Social function [facility] Start: 06-04-2013 PHQ2 Score 0 [facility] Start: 04-23-2024 End: 08-01-2024 Sex Male (finding) [facility] History of tobacco use Cigarette Smoker [facility] Start: 10-03-2023 End: 09-10-2024 Alcoholic beverage intake Current drinker of alcohol (finding) [facility] Start: 08-30-2022 Alcohol Comment 6+ drinks week ly. Caffine intkae: 1-2 cups per day coffee [facility] Medical Equipment Procedure Code Equipment Code Equipment Origin al Text Equipment Identifier Dates Blood Sugar Diagnostic (Accu-Chek Guide Test Strips) strip Start: 05-29-2024 Lancets (Accu-Ch ek Softclix Lancets) [facility] Start: 05-09-2024 Blood Sugar Diagnostic (Accu-Chek Guide [...] 10/24/2019 11:55 AM Nga Winter RN No [facility] 10-24-2019 Are you blind, or do you have serious difficulty seeing, even when wearing glasses No 10/24/2019 11:55 AM Nga Winter RN No [facility] 10-24-2019 Do you have serious difficulty walking or climbing stairs No 10/24/2019 11:55 AM Nga Winter RN No [facility] 10-24-2019 Do you have difficul ty dressing or bathing No 10/24/2019 11:55 AM Nga Winter RN No [facility] 10-24-2019 Because of a physica l, mental, or emotional condition, do you have difficulty doing errands alone such as visiting a physician's office or shopping No 10/24/2019 11:55 AM Nga Winter RN No [facility] Mental Status Date Assessment Result Facility 10-24-2019 Because of a physica l, mental, or emotional condition, do you have serious difficulty concentrating, remembering, or making decisions No 10/24/2019 11:55 AM Nga Winter RN No [facility] Clinical Notes 04-21-2021 to 10-30-2024 Telephone Encounter - Radha Gates - 10/30/2024 10:28 AM EDTTelephone Encounter - Radha Gates - 10/30/2024 10:28 AM SALOTJohn Churchill DO - 09/10/2024 2:30 PM EDT Note Date & Type Note Facility 10-30-2024 Telephone encount er Note Uploaded INR lab results FAX into scanned documents and EP shared drive. Radha IC 955 [facility] 10-30-2024 Miscellaneous Notes Formattin g of this note might be different from the original. Uploaded INR lab results FAX into scanned documents and EP [employer] [address]. Radha IC 955 documented in this encounter [facility] 09-10-2024 History of Presen t illness Narrative [...] scrubs were recommended. documented in this encounter [facility] 09-02-2024 History of Presen t [...] edema. Discussed condition in detail. Recommendation for ezjc-zot-[id number] compression stockings at this time and may consider prescription stockings in the future. Christopher Trevizo DPM documented in this encounter [facility] 07-10-2024 Telephone encount er Note Uploaded INR results form [facility] FAX into scanned documents and EP shared drive. Radha IC 955 [facility] 07-10-2024 Miscellaneous Notes Formattin g of this note might be different from the original. Uploaded INR results form [facility] FAX into scanned documents and EP shared drive. Radha IC 955 Uploaded INR lab results FAX into scanned documents and EP shared drive. Radha IC 955 documented in this encounter [facility] 06-26-2024 Telephone encount er Note Uploaded INR lab results FAX into scanned documents and EP shared drive. Radha IC 955 [facility] 06-12-2024 Evaluation note Diagnosis Onset Date [...] lower extremities acute July 31, 2024 12:50pm [facility] Work Phone: 1(868) 200-331604-02-2025 Evaluation note* Diagnosis Onset Date Resolution Status [...] it, subsequent noneactive September 06, 2024 10:37am [facility] Work Phone: 1(846) 432-601702-19-2025 Telephone encounter Note* Telephone Encounter - Radha Gates - 05/01/2024 3:33 PM EST Uploaded LAB results (INR) FAX into scanned documents and EP shared drive. Radha IC 955 [facility]02-19-2025 Miscellaneous Notes* Telephone Encounter - Radha Welch - 05/01/2024 3:33 PM EST Uploaded LAB results (INR) FAX into scanned documents and EP shared drive. 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 Radha IC 955 [facility]01-22-2025 Miscellaneous Notes* Telephone Encounter - Radha Welch - 04/03/2024 11:52 AM EST Uploaded INR results from [facility] FAX into scanned documents and EP shared drive. 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 acute April 23, 025 7:47am [facility] Work Phone: 1(272) 582-676712-12-2024 Evaluation note* Diagnosis Onset Date Resolution Status Admit Date Afib acute February 22, 2024 9:45am Warfarin anticoagulation acute February 22, 2024 9:45am Acute sinusitis noneactive February 22, 2024 9:45am 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 acute April 23, 2 025 7:47am Afib acute May 07, 2024 9:50am ASHD (arteriosclerotic heart disease) acute May 07, 025 9:50am Hypercholesteremia acute Februa 2024 9:50am HCRISTIAN (obstructive sleep apnea) acute May 07, 2024 9:50am Pulmonary nodule, right acute F ebruary 2024 9:50am Type 2 diabetes mellitus wit h diabetic polyneuropathy acute May 07, 2024 9:50am Type 2 diabetes mellitus wit h hyperglycemia acute May 07, 025 9:50am Venous insufficiency of both lower extremities acute May 07, 2024 9:50am [facility] Work Phone: 1(832) 972-944212-11-2024 Telephone encounter Note* Telephone Encounter - Alisha Gomez RN - 02/21/2024 1:56 PM EST Images from the original note were not included. [facility]12-11-2024 Miscellaneous Notes* Telephone Encounter - Alisha Gomez RN - 02/21/2024 1:56 PM EST Images from the original note were not included. * Telephone Encounter - Radha Gates - 02/21/2024 1:48 PM EST Received LAB results. Uploaded to scanned documents and EP Shared drive. -Radha IC 955 documented [facility]12[facility]24 Telephone encounter Note * Telephone Encounter - Radha Gates - 02/21/2024 1:48 PM EST Received LAB results. Uploaded to scanned documents and EP Shared drive. -Radha IC 955 [facility]12-03-2024 History of Present illness Narrative* Alix Barrios APRN.MEDIA RELATIONS INTERN - 02/13/2024 1:00 PM EST Images from the original note were not included. [facility] [facility] Department of Cardiovascular Medicine SECTION OF CLINICAL CARDIOLOGY OUTPATIENT VISIT DATE February 13, 2024 OUTPATIENT VISIT TYPE ESTABLISHED PRIMARY CARE PHYSICIAN: Declan Swanson ([facility]) [address] [id number] REFERRING PHYSICIAN: No referring provider defined for [...] Continue staitn 5. Coronary artery disease involving jamul coronary artery of jamul heart without angina pectoris- ICD9: 414.01, ICD10: [...] Visit HTN (hypertension) - Primary Atherosclerosis of jamul coronary artery of jamul heart without angina pectoris Atrial fibrillation, persistent [...] by others. CONTACT INFORMATION: Alix Barrios APRN.CNP [facility] Second Floor [address] [facility] [place] [address] I spent 30 minutes in the visit, with more than 50% of the total micp-am-vibo time of the visit in counseling / coordination of care. documented in this encounterA[facility]12-[facility]-2024 NoteHNO ID: [id number] Author: ALIX BARRIOS APRN.CNP Service: ? Author Type: Nurse Practitioner Type: Progress Notes Filed: 02/13/2024 14:49 Note Text: [facility] Department of Cardiovascular Medicine SECTION OF CLINICAL CARDIOLOGY OUTPATIENT VISIT DATE February 13, 2024 OUTPATIENT VISIT TYPE ESTABLISHED PRIMARY CARE PHYSICIAN: Declan Swanson (Peggy) [address] [place], [place] [id number] REFERRING PHYSICIAN: No referring provider defined for [...] Continue staitn 5. Coronary artery disease involving jamul coronary artery of jamul heart without angina pectoris - ICD9: 414.01, [...] surgery REPAIR UMBILICAL HERNIA (more content not included)...[facility] 02-09-2024 Telephone encounter Note* Telephone Encounter - Joselyn Macedo RN - 02/09/2024 7:51 AM EST INR results received, patient remains therapeutic. Patient is not scheduled for any upcoming procedures and coumadin is managed locally. Joselyn Macedo RN [facility]11-29-2024 Miscellaneous Notes* Telephone Encounter - Joselyn Macedo RN - 02/09/2024 7:51 AM EST INR results received, patient remains therapeutic. Patient is not scheduled for any upcoming procedures and coumadin is managed locally. Joselyn Macedo RN * Telephone Encounter - Radha Gates - 02/07/2024 2:50 PM EST Received faxed LAB results. Uploaded to scanned documents and EP shared drive. -Radha documented in [facility]11-[facility]24 Telephone encounter Note * Telephone Encounter - Radha Gates - 02/07/2024 2:50 PM EST Received faxed LAB results. Uploaded to scanned documents and EP shared drive. -Radha [facility]11-13-2024 Telephone encounter Note* Telephone Encounter - Alisha Gomez RN - 01/24/2024 3:30 PM EST Images from the original note were not included. [facility]11-13-2024 Miscellaneous Notes* Telephone Encounter - Alisha Gomez RN - 01/24/2024 3:30 PM EST Images from the original note were not included. * Telephone Encounter - Radha Gates - 01/24/2024 2:57 PM EST Received INR LAB results from [facility]. Uploaded to [employer]/ [employer] and EP shared drive. -Radha IC 955 documented in this encounterA[facility] Hospital11-13-2024 Telephone encounter Note * Telephone Encounter - Radha Gates - 01/24/2024 2:57 PM EST Received INR LAB results from [facility]. Uploaded to [employer]/ [employer] and [employer] drive. -Radha IC 955 [facility]10-08-2024 Telephone encounter Note* Telephone Encounter - Claire Callejas RN - 12/19/2023 2:09 PM EDT Images from the original note were not included. Spoke with patients . Relayed Dr. Pineda message below. Patient is NOT taking Jardiance due to cost. Will adjust Lasix and recheck BNP. Appt scheduled end of Dec with Shama. Patient is requestingchange to [place] instead of [place]. Will contact us if no improvement. Venkat Evans V, MD P Avw Card Nurse; P Avw Card Experience Design Director Tell pt pro bnp is high suggesting fluid overload I started Jardiance so make sure he is taking Increase lasix to 40 mg B ID for 5 days then once a day Recheck pro bnp in 4 weeks Reinforce salt restriction Please schedule earlier appt with GERMAIN in 4-8 weeks to followup Please tell pt to notify us if he is not improving [facility]10-08-2024 Miscellaneous Notes* Telephone Encounter - Claire Callejas RN - 12/19/2023 2:09 PM EDT Images from the original note were not included. Spoke with patients . Relayed Dr. Pineda message below. Patient is NOT taking Jardiance due to cost. Will adjust Lasix and recheck BNP. Appt scheduled end of Dec with Shama. Patient is requestingchange to [place] instead of [place]. Will contact us if no improvement. Venkat Evans V, MD P Avw Card Nurse; P Avw Card Experience Design Director Tell pt pro bnp is high suggesting [...] he is not improving documented in [facility] encounterA[facility]10-[facility]-2024 Telephone encounter Note * Telephone Encounter - Bryan Dwyer - 12/12/2023 2:57 PM EDT Documentation scanned into EP outside database Scanned INR report into epic [facility]10-01-2024 Miscellaneous Notes* Telephone Encounter - Bryan Dwyer - 12/12/2023 2:57 PM EDT Documentation scanned into EP outside database Scanned INR report into epic documented in this encounterA[facility]09-27-2024 NoteHNO ID: [id number] Author: VENKAT EVANS MD Service: ? Author Type: Physician Type: Progress Notes Filed: 12/08/2023 11:39 Note Text: Referring Physician: Venkat Evans [id number] [facility] [address] Primary Care Physician: DO Jorge Unger Ryan [...] Continue staitn 5. Coronary artery disease involving jamul coronary artery of jamul heart without angina pectoris - ICD9: 414.01, [...] (mg/dL) Date Value 09/18/2020 78 Venkat Evans [facility]09-27-2024 History of Present illness Narrative* Venkat Evans V, MD - 12/08/2023 11:24 AM EDT Images from the original note were not included. Referring Physician: Venkat Evans [id number] [facility] [address] Primary Care Physician: DO Jorge Unger Ryan [...] Continue staitn 5. Coronary artery disease involving jamul coronary artery of jamul heart without angina pectoris- ICD9: 414.01, ICD10: [...] 78 Venkat Evans MD documented in this encounterA[facility]09-04-2024 Telephone encounter Note * Telephone Encounter - Bryan Dwyer - 11/15/2023 2:36 PM EDT Documentation scanned into EP outside database Scanned INR results into epic [facility]09-04-2024 Miscellaneous Notes* Telephone Encounter - Bryan Dwyer - 11/15/2023 2:36 PM EDT Documentation scanned into EP outside database Scanned INR results into epic documented in this encounterA[facility] Hospital07-09-2024 Telephone encounter Note * Telephone Encounter - Bryan Dwyer - 09/19/2023 3:52 PM EDT Documentation scanned into EP outside database Scanned INR results into epic [facility]07-09-2024 Miscellaneous Notes* Telephone Encounter - Bryan Dwyer - 09/19/2023 3:52 PM EDT Documentation scanned into EP outside database Scanned INR results into epic documented in this encounterA[facility] Hospital06-11-2024 Telephone encounter Note * Telephone Encounter - Bryan Dwyer - 08/22/2023 4:52 PM EDT Documentation scanned into EP outside database Scanned INR results into epic [facility]06-11-2024 Miscellaneous Notes* Telephone Encounter - Bryan Dwyer - 08/22/2023 4:52 PM EDT Documentation scanned into EP outside database Scanned INR results into epic documented in this encounterA[facility]man Hospital05-14-2024 Telephone encounter Note * Telephone Encounter - Bryan Dwyer - 07/25/2023 10:21 AM EDT Documentation scanned into EP outside database Scanned INR results into Epic [facility]05-14-2024 Miscellaneous Notes* Telephone Encounter - Bryan Dwyer - 07/25/2023 10:21 AM EDT Documentation scanned into EP outside database Scanned INR results into Epic documented in this encounterAultman Hospital04-23-2024 History of Present illness Narrative* Shama Ibanez PA-C - 07/04/2023 10:00 AM EDT Images from the original note were not included. [facility] Department of Cardiovascular Medicine SECTION OF CARDIAC PACING and ELECTROPHYSIOLOGY OUTPATIENT VISIT DATE July 04, 2023 OUTPATIENT VISIT TYPE ESTABLISHED PRIMARY CARE PHYSICIAN: Declan Swanson (Peggy) [address] [place] [address] CHIEF COMPLAINT: Cardiology follow up HISTORY OF [...] with more than 50% of the total qwwe-mz-wvyd time of the visit in counseling / coordination of care. documented in this encounterAultman Hospital04-23-2024 Instructions* Patient Instructions* Shama Ibanez PA-C - 07/04/2023 9:58 AM EDT - No changes to medications today - Will have you see Dr Evans with echo as scheduled - Will have you see Dr Denton in 1 year - Call us sooner with any questions or concerns Shama Ibanez PA-C documented in this encounterAultman Hospital04-16-2024 Miscellaneous Notes* Telephone Encounter - Bryan Dwyer - 06/27/2023 2:52 PM EDT Documentation scanned into EP outside database Scanned INR results into epic documented in this encounterAultman Hospital03-25-2024 History of Present illness Narrative* Venkat [...] 78 Venkat Evans MD documented in this encounterAultman Hospital03-19-2024 Miscellaneous Notes* Telephone Encounter - Bryan Dwyer - 05/30/2023 9:19 AM EDT Documentation scanned into EP outside database Scanned into Epic documented in this encounterAultman Hospital02-20-2024 Miscellaneous Notes* Telephone Encounter - Bryan Dwyer - 05/02/2023 3:27 PM EST Documentation scanned into EP outside database documented in this encounterAultman Hospital01-25-2024 Miscellaneous Notes* Telephone Encounter - Marisol Garvin - 04/06/2023 6:45 AM EST Outside medical records (INR report 04/04/2023) scanned into [employer] and shared EP drive. documented in this [facility]01-11-2024 Evaluation note* Encounter Date Diagnosis Assessment Notes [...] further antibiotics necessary Call w/ increased tenderness [facility] Other 11-28-2023 Miscellaneous Notes* Telephone Encounter - Marisol Garvin - 02/07/2023 9:31 AM EST Outside medical records (INR report 02/07/2023) scanned into [employer] and shared EP drive. documented in this encounterAultman Hospital11-01-2023 Miscellaneous Notes* Telephone Encounter - Marisol Garvin - 01/11/2023 7:24 AM EDT Outside medical records (INR Report 01/10/2023) scanned into shared EP drive. documented in this encounterAultman Hospital10-26-2023 Miscellaneous Notes* Telephone Encounter - Marisol Garvin - 01/05/2023 6:48 AM EDT Images from the original note were not included. Outside medical records (INR report 12/27/2022) scanned into shared EP drive. documented in this encounterAultman Hospital10-24-2023 Evaluation note* Encounter Date Diagnosis Assessment [...] but no change in treatment is necessary [facility] Other 10-23-2023 Evaluation note* Encounter Date Diagnosis [...] BS but no adjustment in treatment necessary [facility] Other [id number] Miscellaneous Notes* Telephone Encounter - Bobbi Day - 12/23/2022 7:48 AM EDT Patient records received via electronic fax. Uploaded to [employer]. INR 12.20.22 Bobbi Day documented in this encounterAultman Hospital10-10-2023 Evaluation note* Encounter Date Diagnosis Assessment [...] Above note written by Christian Damon MA, Line Construction Supervisor. Edited and approved by Dr. Ruben Celis MD. 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 No bleeding complications Dec, Type 2 diabetes [...] use, the patient reduces the risk for SC, CVA, HTN, cardiac dysrhythmias and sudden cardiac deaths.The patient is also aware of the association between CHRISTIAN and morning headaches, daytime somnolence, fatigue and obesity Unable to tolerate treatment, noncompliant Aware this would likely prevent hinduism of NSR Dec, Chronic venous insufficiency of [...] as needed. s/p TATIANA yesterday w/ benefit [employer] Other 09-14-2023 Evaluation note* Encounter Date Diagnosis Assessment Notes Treatment Notes Treatment Clinical Notes Nov, Arthritis of lumbosacral spine (ICD-10 - M47.817) [facility] Other 08-25-2023 Evaluation note* Encounter Date Diagnosis [...] Microalbumin, Dilated eye exam and Foot exam [facility] Other 08-18-2023 Miscellaneous Notes* Telephone Encounter - Bobbi Day - 10/28/2022 3:24 PM EDT Patient records received via electronic fax. Uploaded to [employer]. INR 8.17.23 Bobbi Day documented in [facility] Evaluation [facility]* Encounter Date Diagnosis Assessment [...] note writ ten by Christian Damon MA, Line Construction Supervisor. Edited and approved by Dr. Ruben Celis MD. [facility] Other 08-03-2023 Miscellaneous Notes* Telephone Encounter - Bobbi Day - 10/13/2022 3:54 PM EDT Patient records received via electronic fax. Uploaded to [employer]. INR 8.3.23 Bobbi Day documented in this encounterAultman Hospital08-03-2023 Evaluation note* Encounter Date Diagnosis Assessment [...] Microalbumin, Dilated eye exam and Foot exam [facility] Other 08-02-2023 Evaluation note* Encounter Date Diagnosis [...] with me on a as needed basis. [facility] Other 07-07-2023 Miscellaneous Notes* Telephone Encounter - Marisol Garvin - 09/16/2022 7:48 AM EDT Images from the original note were not included. Outside medical records (INR report) scanned into shared [employer] drive. documented in this encounterAultman Hospital07-06-2023 Evaluation note* Encounter Date Diagnosis Assessment [...] Microalbumin, Dilated eye exam and Foot exam [facility] Other 06-28-2023 Miscellaneous Notes* Telephone Encounter - Orly Olivo MA - 09/07/2022 11:30 AM EDT Received lab results from [facility]. No upcoming appts. Sent for scanning. documented in this encounterAultman Hospital06-22-2023 Miscellaneous Notes* Telephone Encounter - Bobbi Day - 09/01/2022 2:39 PM EDT Patient records received via electronic fax. Uploaded to [email or web address] Bobbi Day documented in this encounterAultman Hospital06-06-2023 Evaluation note* Encounter Date Diagnosis Assessment [...] are maintaining regular scheduled appts with their 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. Aug, Pulmonary nodule, right (ICD-10 - R91.1) [...] use, the patient reduces the risk for SC, CVA, HTN, cardiac dysrhythmias and sudden cardiac [...] High risk medication use (ICD-10 - Z79.899) [facility] Other 05-11-2023 Miscellaneous Notes* Telephone Encounter - Bobbi Day - 07/21/2022 12:00 PM EDT Patient records received via electronic fax. Uploaded to [employer]. INR 07.21.23 Bobbi Day documented in this encounterAultman Hospital05-04-2023 Miscellaneous Notes* Telephone Encounter - Kayla [...] this year with me documented in this encounterAultman Hospital04-17-2023 Miscellaneous Notes* Telephone Encounter - Chiquita Soares RN - 06/27/2022 2:55 PM EDT Spoke to patient per MD request. Per Dr Denton: Can you call him and let him know I got his ECG printed out the way I wanted, and I do think he was in atrial fib on Monday at [place]? Tell him we are not changing anything now, but I wanted to follow up with him about this. Thanks TD Chiquita Soares RN documented in this encounterAultman Hospital04-17-2023 Evaluation note* Encounter Date Diagnosis Assessment [...] - aorta is borderline dilated 4.0 cm. [facility] Other 04-14-2023 History of Present illness Narrative* [...] (Hypertension) Dyslipidemia Atrial Fibrillation (Hcc) Atherosclerosis of [place] Coronary Artery of [place] Heart Without Angina Pectoris Diabetes Mellitus Type [...] phrases that may beinappropriate. documented in this encounterAultman Hospital04-13-2023 Miscellaneous Notes* Telephone Encounter - Bobbi Day - 06/23/2022 11:30 AM EDT Patient records received via electronic fax. Uploaded to [employer]. INR 4.13.23 Bobbi Day documented in this encounterAultman Hospital03-17-2023 Miscellaneous Notes* Telephone Encounter - Bobbi Day - 05/27/2022 9:01 AM EDT Patient records received via electronic fax. 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 May, CHRISTIAN (obstructive sleep apnea) (ICD-10 - [...] past 2 years. No further screening required. [facility] Other 01-10-2023 Evaluation note* Encounter Date Diagnosis [...] which are reviewed at the office visit. [facility] Other 12-29-2022 Miscellaneous Notes* Telephone Encounter - Bobbi Day - 03/10/2022 9:28 AM EST Images from the original note were not included. Patient records received via electronic fax. Uploaded to [employer] Bobbi Day documented in this encounterAultman Hospital12-07-2022 NotePROCEDURE: XR FOOT LT MIN 3 [...] Electronically authenticated by: JAMIE FAROOQ Date: 2022-02-16 09:55[facility]12-07[facility] NotePROCEDURE: XR FOOT LT MIN 3 [...] Electronically authenticated by: JAMIE FAROOQ Date: 2022-02-16 09:55[facility]11-22-2022 Miscellaneous Notes* Telephone Encounter - Bobbi Day - 02/01/2022 4:02 PM EST Images from the original note were not included. Patient records received via electronic fax. Uploaded to [employer] Bobbi Day documented in this [facility]11-10-2022 Miscellaneous Notes* Telephone Encounter - Bobbi Day - 01/20/2022 4:51 PM EST Patient records received via electronic fax. Uploaded to [employer] Bobbi Day documented in this [facility]11-08-2022 Miscellaneous Notes* Telephone Encounter - Bobbi Day - 01/18/2022 2:49 PM EST Images from the original note were not included. Patient records received via electronic fax. Uploaded to [employer] Bobbi Day documented in this [facility]10-26-2022 Miscellaneous Notes* Telephone Encounter - Bobbi Day - 01/05/2022 8:57 AM EDT Images from the original note were not included. Patient records received via electronic fax. Uploaded to [employer] / [employer] Bobbi Day documented in this [facility]10-25-2022 Miscellaneous Notes* Telephone Encounter - Bobbi Day - 01/04/2022 4:17 PM EDT Images from the original note were not included. Patient records received via electronic fax. Uploaded to [employer] Bobbi Day documented in this [facility]10-21-2022 History of Present illness Narrative* Venkat Evans V, MD - 12/31/2021 1:00 PM EDT Referring Physician: Sara Carlson [id number] [address] [facility] [address] Primary Care Physician: DO Jorge Unger Ryan [...] Per EP 3. Coronary artery disease involving jamul coronary artery of jamul heart without angina pectoris- ICD9: 414.01, ICD10: [...] 78 Venkat Evans MD documented in this encounterAultman Hospital10-11-2022 Miscellaneous Notes* Telephone Encounter - Bobbi Day - 12/21/2021 4:17 PM EDT Images from the original note were not included. Patient records received via electronic fax. Uploaded to [employer]. Bobbi Day documented in this encounterAultman Hospital09-27-2022 Miscellaneous Notes* Telephone Encounter - Bobbi Day - 12/07/2021 2:04 PM EDT Patient records received via electronic fax. Uploaded to [employer] / [employer] Bobbi Day documented in this encounterAultman Hospital04-28-2022 Miscellaneous Notes* Telephone Encounter - Marisol Garvin - 07/08/2021 4:17 PM EDT Images from the original note were not included. Outside medical records (INR report 07/08/2021) scanned into shared [employer] drive. documented in this [facility]04-15-2022 History of Present illness Narrative* Ruben [...] (Hypertension) Dyslipidemia Atrial Fibrillation (Hcc) Atherosclerosis of [place] Coronary Artery of [place] Heart Without Angina Pectoris Diabetes Mellitus Type [...] furosemide, a statin. INR is managed by [facility] and is checked monthly. No problems [...] today in the office shows: NSR [id number] Low voltage P waves Impression and plan dictated separately; to be transcribed. Ruben Denton MD CC - Declan Swanson, DO This clinical note has been produced using speech recognition software and may contain errors related to that system including grammar, punctuation, spelling, gender and words and phrases that may beinappropriate. documented in this encounterAultman Hospital04-15-2022 History of Present illness Narrative* Sara Carlson APRN.MEDIA RELATIONS INTERN - 06/25/2021 1:25 PM EDT Images from the original note were not included. [facility] [place] [facility] Department of Cardiovascular Medicine SECTION OF CLINICAL CARDIOLOGY OUTPATIENT VISIT DATE June 25, 2021 OUTPATIENT VISIT TYPE ESTABLISHED PRIMARY CARE PHYSICIAN: Declan Swanson (Peggy) [address] [place] [address] CHIEF COMPLAINT: follow up HISTORY OF PRESENT ILLNESS: Mr. Davis is a 76 year old male who presents today for a cardiovascular medicine followed by Dr. Evans & Dr. Denton for non occlusive CAD , chronic diastolic heart failure, paroxysmal atrial fibrillation (s/p ablation 2019; [id number]: 3%; age, hypertension, diabetes type II), Other [...] failure, paroxysmal atrial fibrillation (s/p ablation 2019; [id number]: 3%; age, hypertension, diabetes type II), Other [...] with more than 50% of the total [id number] time of the visit in counseling / coordination of care. CONTACT INFORMATION: Sara Carlson APRN.CNP, 06/25/21 [facility] Second Floor [address] [place], [place] [id number] documented in this encounterAultman Hospital03-31-2022 Miscellaneous Notes* Telephone Encounter - Marisol Garvin - 06/10/2021 1:12 PM EDT Images from the original note were not included. Outside medical records (INR results 06/10/2021) scanned into [address]. documented in this encounterCleveland [id number] Miscellaneous Notes* Telephone Encounter - Alisha Gomez RN - 06/01/2021 4:26 PM EDT Message left. Yes, he needs EKG. Ordered. (Not sure why he has 2 appts. on same day with same dept). Alisha Gomez RN * Telephone Encounter - Angela Collazo - 05/31/2021 11:30 AM EDT May 31, 2021 Patient Name:PATIENT Jorge Davis Contact Information: [phone] Last visit with EP Provider: 09/18/2020 Reason for Call: Patient would like to know if he should be getting an EKG prior to his appointment06/25. Last EKG was 09/18/20. Physician: Feliz Lipscomb MD Thank you, Angela Collazo The patient was informed that our caregivers are afforded 72 business hours to review and respond telephone messages. documented in this encounterAultman Hospital03-10-2022 Evaluation note* Encounter Date Diagnosis Assessment [...] us and we will see him sooner. [facility] Other 02-09-2022 Miscellaneous Notes* Telephone Encounter - Jessika Villegas [facility] - 04/21/2021 4:00 PM EST Received outside records - uploaded to Scanned Documents in Mofibo through onbase Appointment on Visit date not found Last appointment with this provider 04/01/2021 Last OV in this dept 04/19/2019 Jessika Escobar [facility]* Diagnosis Atrial fibrillation, persistent (HCC)- Primary Atrial fibrillation documented in this encounter [facility] note* Diagnosis Atrial fibrillation, persistent (HCC)- Primary Atrial fibrillation S/P ablation of atrial fibrillation Other postprocedural status Obesity, Class III, BMI >= 40 Morbid obesity Controlled type 2 diabetes mellitus without complication, without long-term current use of insulin (HCC) CHRISTIAN (obstructive sleep apnea) Obstructive sleep apnea (adult) (pediatric) Atherosclerosis of jamul coronary artery of jamul heart without angina pectoris Encounter for current long-term use of anticoagulants Long-term (current) use of anticoagulants documented in this encounter [facility] note* Diagnosis Acute on chronic diastolic heart failure (HCC)- Primary Acute on chronic diastolic heart failure Primary hypertension Unspecified essential hypertension documented in this encounter [facility] note* Diagnosis Chronic diastolic heart failure (HCC)- Primary Chronic diastolic heart failure Paroxysmal atrial fibrillation (HCC) Atrial fibrillation Coronary artery disease involving jamul coronary artery of jamul heart without angina pectoris Controlled type 2 diabetes mellitus without complication, without long-term current use of insulin (HCC) documented in this encounter [facility] noteNo InformationNoSion Power Other Evaluation note* Diagnosis Atrial fibrillation, persistent [...] BMI >= 40 Morbid obesity Atherosclerosis of jamul coronary artery of jamul heart without angina pectoris documented in this encounter [facility] noteNoSion Power Other Evaluation noteNo assessment information available [facility] Work Phone: Evaluation note* Diagnosis Chronic diastolic heart failure (HCC)- Primary Chronic diastolic heart failure Atrial fibrillation, persistent (HCC) Atrial fibrillation Obesity, Class III, 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) Morbid obesity Mixed hyperlipidemia [facility] in this [facility]* Diagnosis Atrial fibrillation, persistent (HCC)- Primary Atrial fibrillation S/P ablation of atrial fibrillation Other postprocedural status On continuous oral anticoagulation Long-term (current) use of anticoagulants [facility]* Diagnosis Onset Date Resolution Status ASHD (arteriosclerotic heart disease) acute Acute bronchitis due to other specified organisms noneactive Contact dermatitis acute Type 2 diabetes mellitus with hyperglycemia acute [facility] Work Phone: evaluation note* Diagnosis Onset Date Resolution Status ASHD [...] acute Medicare annual wellness visit, subsequent noneactive [facility] Work Phone: evaluation note* Diagnosis Chronic diastolic heart failure (HCC)- Primary Chronic diastolic heart failure Atrial fibrillation, persistent (HCC) Atrial fibrillation Obesity, Class III, 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) Morbid obesity Mixed hyperlipidemia Coronary artery disease involving jamul coronary artery of jamul heart without angina pectoris documented in this encounter [facility]* Diagnosis Onset Date Resolution Status Afib acute ASHD (arteriosclerotic heart disease) acute Hypercholesteremia acute CHRISTIAN (obstructive sleep apnea) acute Traumatic hematoma of right lower leg with infection acute Type 2 diabetes mellitus with diabetic polyneuropathy acute Type 2 diabetes mellitus with hyperglycemia acute Venous insufficiency of both lower extremities acute [facility] Work Phone: evaluation note* Diagnosis Primary hypertension- Primary Unspecified essential hypertension Atherosclerosis of jamul coronary artery of jamul heart without angina pectoris Atrial fibrillation, persistent (HCC) Atrial fibrillation Chronic diastolic heart failure (HCC) Chronic diastolic heart failure Mixed hyperlipidemia [facility] Venous insufficiency- Primary Unspecified venous (peripheral) insufficiency Pain due to onychomycosis of toenails of both feet documented in this encounter [facility]* Diagnosis Dry eyes- Primary Unspecified tear film insufficiency Blepharitis of upper and lower eyelids of both eyes, unspecified type documented in this encounter [facility] HealthcareHistory general Narrative - Reported* Type Description Date [...] porstate sx 2017 Hospitalization History see above [facility] Other History general Narrative - Reported* Type [...] History Chondroplasty 2005 Surgical History R TKA 2007 Surgical History Arthroscopy L shoulder 2009 Surgical History Revision L knee 2010 Surgical History Cystoscopy 01/2015 Surgical History Excision lipoma of back 08/2013 Surgical History Colonoscopy 12/22, 03/2016 Surgical History L heart cath 06/2015 Hospitalization History see above [facility] [employer] Other History general [facility]ative - [facility] [employer] Other Reason for referral (narrative)* Outpatient Procedure (Routine) - Pending Review Specialty Diagnoses / Procedures Referred By Contac t Referred To Contact [facility] Diagnoses Atrial fibrillation, persistent (HCC) Procedures ECG COMPLETE ECG ROUTINE ECG W/LEAST 12 LDS W/I&R Ruben Denton MD [address] [place] [address] [place] [id number] Referral ID Status Reason Start Date Expiration Date Visits Requested Visits Authorized [id number] Pending Review Auto-Generat ed Referral 06/01/2021 06/01/2022 1 1 [facility] for referral (narrative)* Outpatient Procedure (Routine) - Closed Specialty Diagnoses / Procedures [facility]erred To Contact [facility] Diagnoses Atrial fibrillation, persistent (HCC) Procedures ECG COMPLETE ECG ROUTINE ECG W/LEAST 12 LDS W/I&R Ruben Denton MD [address] [place] [address] [place] [id number] Referral ID Status Reason Start Date Expiration Date V isits Requested Visits Authorized [id number] Closed Auto-Generate d Referral 06/25/2021 06/25/2022 1 1 [facility] for referral (narrative)* Outpatient Procedure (Routine) - Authorized Specialty Diagnoses / Procedures Referred By Contac t Referred To Contact [facility] Diagnoses Chronic diastolic heart failure (HCC) Procedures ECHO ECHO TTHRC R-T 2D W/WOM-MODE COMPL SPEC&[place] [address] [place] [address] [facility] [address] [address] Referral ID Status Reason Start Date Expiration Date Visits Requested Visits Authorized [id number] Authorized Auto-Generat ed Referral 12/31/2022 1 1 [facility] for referral (narrative)* Outpatient Procedure (Routine) - Pending Review Specialty Diagnoses / Procedures Referred By Contac t Referred To Contact [facility] Diagnoses Atrial fibrillation, persistent (HCC) Procedures ECG COMPLETE ECG ROUTINE ECG W/LEAST 12 LDS W/I&R Ruben Denton MD [address] [place] [address] [facility] [address] [address] Referral ID Status Reason Start Date Expiration Date Visits Requested Visits Authorized [id number] Pending Review Auto-Generat ed Referral 06/24/2022 06/24/2023 1 1 [facility] for referral (narrative)* Outpatient Procedure (Routine) - Authorized Specialty Diagnoses / Procedures Referred By Contac t Referred To Contact [facility] Diagnoses Chronic diastolic heart failure (HCC) Procedures ECHO ECHO TTHRC R-T 2D W/WOM-MODE COM[place] SPEC&[place] [address] [place] [address] [address] Referral ID Status Reason Start Date Expiration Date Visits Requested Visits Authorized [id number] Authorized Auto-Generat ed Referral 06/05/2023 06/04/2024 1 1 [facility] for referral (narrative)No reason for referral information [facility] Work Phone: Summary Purpose Family History No [...] FoundDocuments on File Type Date Recorded Patient Network Operations Lead Expl anation Advance Directive(s) 12/24/2019 10:01 AM [...] Documents on File Type Date Recorded Patient Network Operations Lead Expl anation Advance Directive(s) 12/24/2019 10:01 AM [...] Advance Directives No October 12, 023 7:44am Advance Directive Response Recorded Date/ Time Advance Directives No October 12 023 6:44am Hospital Course Note HNO ID: [id number] Author: Kandice Carlson Service: Electrophysiology Author Type: [...] (more content not included)... Note HNO ID: [id number] Author: Sarah waters (Venus) Williams Service: ? Author Type: Natural Resources Extension Educator Type: Anesthesia Procedure Notes Filed: 10/23/2019 9:12 [...] not included)... Procedure Findings Note HNO ID: [id number] Author: Sarah Kramer (Aa) Service: ? Author Type: Natural Resources Extension Educator Type: Anesthesia Procedure Notes Filed: 10/23/2019 9:12 [...] weeks-HIGH RISK February 22, 2024 9:45am OP FLEET MANAGER LT HAND PAIN NX April 23 7:47am [...] weeks-HIGH RISK February 22, 2024 9:45am OP FLEET MANAGER LT HAND PAIN NX April 23 7:47am [...] 2024 9:50am ASHD (arteriosclerotic heart disease) Fe bru2024 9:50am Hypercholesteremia May 07, 2024 9:50am CHRISTIAN (obstructive sleep apnea) April 142024 9:50am Pulmonary nodule, right May 07, 2 9:50am Type 2 diabetes mellitus with diabetic p olyneuropathy May 07, 2024 9:50am Type 2 diabetes mellitus with hyperglyce marion May 07, 2024 9:50am Venous insufficiency of both lower extre mities May 07, 2024 9:50am Chief Complaint Admit Date OP FLEET MANAGER LT HAND PAIN NX April 23 7:47am M79.642 - Pain in left hand April 8:00am high risk 4 month f/u May 07 9:50am 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 June 12, 2024 9:01am Reason for Visit Admit Date 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 April 23, 2024 7:47am ASHD (arteriosclerotic heart disease) Fe bru2024 9:50am Atrial fibrillation May 07, 2024 9:50am Hypercholesteremia May 07, 2024 9:50am Obesity May 07, 2024 9:50am CHRISTIAN (obstructive sleep apnea) April 142024 9:50am Pulmonary nodule, right May 07, 9:50am Type 2 diabetes mellitus with diabetic p olyneuropathy May 07, 2024 9:50am Type 2 diabetes mellitus with hyperglyce [facility] May 07, 2024 9:50am Venous insufficiency of both lower extre mities May 07, 2024 9:50am Ascending aortic aneurysm June 12 9:01am ASHD (arteriosclerotic heart disease) Ap 2024 9:01am Atrial fibrillation June 12, 2024 9:01 am Hypercholesteremia June 12, 2024 9:01 am CHRISTIAN (obstructive sleep apnea) June 12, 2024 9:01am Pulmonary hypertension June 12, 2024 9 :01am Type 2 diabetes mellitus with hyperglyce [facility] June 12, 2024 9:01am Venous insufficiency of both lower extre mities June 12, 2024 9:01am Chief Complaint Admit Date 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 June 12, 2024 9:01am Atherosclerotic heart disease & Permanen t afib July 31, 2024 12:50pm Reason for Visit Admit Date Ascending aortic aneurysm June 12 9:01am Atrial fibrillation June 12, 2024 9:01 am Hypercholesteremia June 12, 2024 9:01 am CHRISTIAN (obstructive sleep apnea) June 12, 2024 9:01am Pulmonary hypertension June 12, 2024 9 :01am Type 2 diabetes mellitus with hyperglyce [facility] June 12, 2024 9:01am Venous insufficiency of both lower extre mities June 12, 2024 9:01am ASHD (arteriosclerotic heart disease) Ap 2024 9:01am Essential (primary) hypertension July 12:50pm Mixed hyperlipidemia July 31, 2024 12:5 0pm Paroxysmal atrial fibrillation July 31, 2024 12:50pm Venous insufficiency of both lower extre mities July 31, 2024 12:50pm Chief Complaint Admit Date 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 June 12, 2024 9:01am Atherosclerotic heart [...] 2024 9:01am ASHD (arteriosclerotic heart disease) Ap 2024 9:01am Essential (primary) hypertension July 12:50pm [...] section and content) DATE CREATED AUTHOR 12/24/2019 [facility] DATE CREATED AUTHOR AUTHOR'S ORGANIZ ATION 02/29/2020 [facility] DATE CREATED AUTHOR AUTHOR'S ORGANIZ ATION 08/19/2022 [facility] DATE CREATED AUTHOR AUTHOR'S ORGANIZ ATION 02/15/2024 [facility] DATE CREATED AUTHOR AUTHOR'S ORGANIZ ATION 08/07/2024 [facility] DATE CREATED AUTHOR AUTHOR'S ORGANIZ ATION 09/12/2024 [facility] EPIC DATE CREATED AUTHOR AUTHOR'S ORGANIZ ATION 11/02/2024 [facility] Source Comments (unrecognize d section and content) In the event this informatio n is protected by the Federal Confidentiality of Alcohol and Drug Abuse Patient Records regulations: The Federal rules restrict any use of the information to criminally investigate or prosecute any alcohol or drug abuse patient.[facility] Hospital[facility] the event this information is protected by the Federal Confidentiality of Alcohol and Drug Abuse Patient Records regulations: The Federal rules restrict any use of the information to criminally investigate or prosecute any alcohol or drug abuse patient.[facility] HospitalIn the event this information is protected by the Federal Confidentiality of Alcohol and Drug Abuse Patient Records regulations: The Federal rules restrict any use of the information to criminally investigate or prosecute any alcohol or drug abuse patient.[facility] HospitalIn the event this information is protected by the Federal Confidentiality of Alcohol and Drug Abuse Patient Records regulations: The Federal rules restrict any use of the information to criminally investigate or prosecute any alcohol or drug abuse patient.[facility] HospitalIn the event this information is protected by the Federal Confidentiality of Alcohol and Drug Abuse Patient Records regulations: The Federal rules restrict any use of the information to criminally investigate or prosecute any alcohol or drug abuse patient.[facility] HospitalIn the event this information is protected by the Federal Confidentiality of Alcohol and Drug Abuse Patient Records regulations: The Federal rules restrict any use of the information to criminally investigate or prosecute any alcohol or drug abuse patient.[facility] HospitalIn the event this information is protected by the Federal Confidentiality of Alcohol and Drug Abuse Patient Records regulations: The Federal rules restrict any use of the information to criminally investigate or prosecute any alcohol or drug abuse patient.[facility] HospitalIn the event this information is protected by the Federal Confidentiality of Alcohol and Drug Abuse Patient Records regulations: The Federal rules restrict any use of the information to criminally investigate or prosecute any alcohol or drug abuse patient.[facility] HospitalIn the event this information is protected by the Federal Confidentiality of Alcohol and Drug Abuse Patient Records regulations: The Federal rules restrict any use of the information to criminally investigate or prosecute any alcohol or drug abuse patient.[facility] HospitalIn the event this information is protected by the Federal Confidentiality of Alcohol and Drug Abuse Patient Records regulations: The Federal rules restrict any use of the information to criminally investigate or prosecute any alcohol or drug abuse patient.[facility] HospitalIn the event this information is protected by the Federal Confidentiality of Alcohol and Drug Abuse Patient Records regulations: The Federal rules restrict any use of the information to criminally investigate or prosecute any alcohol or drug abuse patient.[facility] HospitalIn the event this information is protected by the Federal Confidentiality of Alcohol and Drug Abuse Patient Records regulations: The Federal rules restrict any use of the information to criminally investigate or prosecute any alcohol or drug abuse patient.[facility] HospitalIn the event this information is protected by the Federal Confidentiality of Alcohol and Drug Abuse Patient Records regulations: The Federal rules restrict any use of the information to criminally investigate or prosecute any alcohol or drug abuse patient.[facility] HospitalIn the event this information is protected by the Federal Confidentiality of Alcohol and Drug Abuse Patient Records regulations: The Federal rules restrict any use of the information to criminally investigate or prosecute any alcohol or drug abuse patient.[facility] HospitalIn the event this information is protected by the Federal Confidentiality of Alcohol and Drug Abuse Patient Records regulations: The Federal rules restrict any use of the information to criminally investigate or prosecute any alcohol or drug abuse patient.[facility] HospitalIn the event this information is protected by the Federal Confidentiality of Alcohol and Drug Abuse Patient Records regulations: The Federal rules restrict any use of the information to criminally investigate or prosecute any alcohol or drug abuse patient.[facility] HospitalIn the event this information is protected by the Federal Confidentiality of Alcohol and Drug Abuse Patient Records regulations: The Federal rules restrict any use of the information to criminally investigate or prosecute any alcohol or drug abuse patient.[facility] HospitalIn the event this information is protected by the Federal Confidentiality of Alcohol and Drug Abuse Patient Records regulations: The Federal rules restrict any use of the information to criminally investigate or prosecute any alcohol or drug abuse patient.[facility] HospitalIn the event this information is protected by the Federal Confidentiality of Alcohol and Drug Abuse Patient Records regulations: The Federal rules restrict any use of the information to criminally investigate or prosecute any alcohol or drug abuse patient.[facility] HospitalIn the event this information is protected by the Federal Confidentiality of Alcohol and Drug Abuse Patient Records regulations: The Federal rules restrict any use of the information to criminally investigate or prosecute any alcohol or drug abuse patient.[facility] HospitalIn the event this information is protected by the Federal Confidentiality of Alcohol and Drug Abuse Patient Records regulations: The Federal rules restrict any use of the information to criminally investigate or prosecute any alcohol or drug abuse patient.[facility] HospitalIn the event this information is protected by the Federal Confidentiality of Alcohol and Drug Abuse Patient Records regulations: The Federal rules restrict any use of the information to criminally investigate or prosecute any alcohol or drug abuse patient.[facility] HospitalIn the event this information is protected by the Federal Confidentiality of Alcohol and Drug Abuse Patient Records regulations: The Federal rules restrict any use of the information to criminally investigate or prosecute any alcohol or drug abuse patient.[facility] HospitalIn the event this information is protected by the Federal Confidentiality of Alcohol and Drug Abuse Patient Records regulations: The Federal rules restrict any use of the information to criminally investigate or prosecute any alcohol or drug abuse patient.[facility] HospitalIn the event this information is protected by the Federal Confidentiality of Alcohol and Drug Abuse Patient Records regulations: The Federal rules restrict any use of the information to criminally investigate or prosecute any alcohol or drug abuse patient.[facility] HospitalIn the event this information is protected by the Federal Confidentiality of Alcohol and Drug Abuse Patient Records regulations: The Federal rules restrict any use of the information to criminally investigate or prosecute any alcohol or drug abuse patient.[facility] HospitalIn the event this information is protected by the Federal Confidentiality of Alcohol and Drug Abuse Patient Records regulations: The Federal rules restrict any use of the information to criminally investigate or prosecute any alcohol or drug abuse patient.[facility] HospitalIn the event this information is protected by the Federal Confidentiality of Alcohol and Drug Abuse Patient Records regulations: The Federal rules restrict any use of the information to criminally investigate or prosecute any alcohol or drug abuse patient.[facility] HospitalIn the event this information is protected by the Federal Confidentiality of Alcohol and Drug Abuse Patient Records regulations: The Federal rules restrict any use of the information to criminally investigate or prosecute any alcohol or drug abuse patient.[facility] HospitalIn the event this information is protected by the Federal Confidentiality of Alcohol and Drug Abuse Patient Records regulations: The Federal rules restrict any use of the information to criminally investigate or prosecute any alcohol or drug abuse patient.[facility] HospitalIn the event this information is protected by the Federal Confidentiality of Alcohol and Drug Abuse Patient Records regulations: The Federal rules restrict any use of the information to criminally investigate or prosecute any alcohol or drug abuse patient.[facility] HospitalIn the event this information is protected by the Federal Confidentiality of Alcohol and Drug Abuse Patient Records regulations: The Federal rules restrict any use of the information to criminally investigate or prosecute any alcohol or drug abuse patient.[facility] HospitalIn the event this information is protected by the Federal Confidentiality of Alcohol and Drug Abuse Patient Records regulations: The Federal rules restrict any use of the information to criminally investigate or prosecute any alcohol or drug abuse patient.[facility] HospitalIn the event this information is protected by the Federal Confidentiality of Alcohol and Drug Abuse Patient Records regulations: The Federal rules restrict any use of the information to criminally investigate or prosecute any alcohol or drug abuse patient.[facility] HospitalIn the event this information is protected by the Federal Confidentiality of Alcohol and Drug Abuse Patient Records regulations: The Federal rules restrict any use of the information to criminally investigate or prosecute any alcohol or drug abuse patient.[facility] HospitalIn the event this information is protected by the Federal Confidentiality of Alcohol and Drug Abuse Patient Records regulations: The Federal rules restrict any use of the information to criminally investigate or prosecute any alcohol or drug abuse patient.[facility] HospitalIn the event this information is protected by the Federal Confidentiality of Alcohol and Drug Abuse Patient Records regulations: The Federal rules restrict any use of the information to criminally investigate or prosecute any alcohol or drug abuse patient.[facility] HospitalIn the event this information is protected by the Federal Confidentiality of Alcohol and Drug Abuse Patient Records regulations: The Federal rules restrict any use of the information to criminally investigate or prosecute any alcohol or drug abuse patient.[facility] HospitalIn the event this information is protected by the Federal Confidentiality of Alcohol and Drug Abuse Patient Records regulations: The Federal rules restrict any use of the information to criminally investigate or prosecute any alcohol or drug abuse patient.[facility] HospitalIn the event this information is protected by the Federal Confidentiality of Alcohol and Drug Abuse Patient Records regulations: The Federal rules restrict any use of the information to criminally investigate or prosecute any alcohol or drug abuse patient.[facility] HospitalIn the event this information is protected by the Federal Confidentiality of Alcohol and Drug Abuse Patient Records regulations: The Federal rules restrict any use of the information to criminally investigate or prosecute any alcohol or drug abuse patient.[facility] HospitalIn the event this information is protected by the Federal Confidentiality of Alcohol and Drug Abuse Patient Records regulations: The Federal rules restrict any use of the information to criminally investigate or prosecute any alcohol or drug abuse patient.[facility] HospitalIn the event this information is protected by the Federal Confidentiality of Alcohol and Drug Abuse Patient Records regulations: The Federal rules restrict any use of the information to criminally investigate or prosecute any alcohol or drug abuse patient.[facility] HospitalIn the event this information is protected by the Federal Confidentiality of Alcohol and Drug Abuse Patient Records regulations: The Federal rules restrict any use of the information to criminally investigate or prosecute any alcohol or drug abuse patient.[facility] HospitalIn the event this information is protected by the Federal Confidentiality of Alcohol and Drug Abuse Patient Records regulations: The Federal rules restrict any use of the information to criminally investigate or prosecute any alcohol or drug abuse patient.[facility] HospitalIn the event this information is protected by the Federal Confidentiality of Alcohol and Drug Abuse Patient Records regulations: The Federal rules restrict any use of the information to criminally investigate or prosecute any alcohol or drug abuse patient.[facility] HospitalIn the event this information is protected by the Federal Confidentiality of Alcohol and Drug Abuse Patient Records regulations: The Federal rules restrict any use of the information to criminally investigate or prosecute any alcohol or drug abuse patient.[facility] HospitalIn the event this information is protected by the Federal Confidentiality of Alcohol and Drug Abuse Patient Records regulations: The Federal rules restrict any use of the information to criminally investigate or prosecute any alcohol or drug abuse patient.[facility] HospitalIn the event this information is protected by the Federal Confidentiality of Alcohol and Drug Abuse Patient Records regulations: The Federal rules restrict any use of the information to criminally investigate or prosecute any alcohol or drug abuse patient.[facility] HospitalIn the event this information is protected by the Federal Confidentiality of Alcohol and Drug Abuse Patient Records regulations: The Federal rules restrict any use of the information to criminally investigate or prosecute any alcohol or drug abuse patient.[facility] HospitalIn the event this information is protected by the Federal Confidentiality of Alcohol and Drug Abuse Patient Records regulations: The Federal rules restrict any use of the information to criminally investigate or prosecute any alcohol or drug abuse patient.[facility] Reason for Visit (unrecogniz ed section [...] December 18, 2023 End: December 18, 2023 Estimate Clerk Relationship Specialty Start Date End Date Declan Swanson, DO PCP - General Internal Medicine 06/04/13 Estimate Clerk Relationship Specialty Start Date End Date Declan Swanson, DO PCP - General Internal Medicine 06/04/13 Estimate Clerk Relationship Specialty Start Date End Date Declan Swanson, DO PCP - General Internal Medicine 06/04/13 Estimate Clerk Relationship Specialty Start Date End Date Declan Swanson, DO PCP - General Internal Medicine 06/04/13 Estimate Clerk Relationship Specialty Start Date End Date Declan Swanson DO PCP - General Internal Medicine 06/04/13 Estimate Clerk Relationship Specialty Start Date End Date Declan Swanson DO PCP - General Internal Medicine 06/04/13 Estimate Clerk Relationship Specialty Start Date End Date Declan Swanson, DO PCP - General Internal Medicine 06/04/13 Estimate Clerk Relationship Specialty Start Date End Date Declan Swanson DO PCP - General Internal Medicine 06/04/13 Estimate Clerk Relationship Specialty Start Date End Date Declan Swanson DO PCP - General Internal Medicine 06/04/13 Estimate Clerk Relationship Specialty Start Date End Date Declan Swanson, DO PCP - General Internal Medicine 06/04/13 Team Status: Inactive Member Role Status Dates Declan Swanson DO Primary Care Provider Active Bruce Shine II, MD Attending Provider Active Estimate Clerk Relationship Specialty Start Date End Date Declan Swanson DO PCP - General Internal Medicine 06/04/13 Team Status: Inactive Member Role Status Dates Declan Swanson DO Primary Care Provider Active Ruben Celis MD Attending Provider Active Estimate Clerk Relationship Specialty Start Date End Date Declan Swanson DO PCP - General Internal Medicine 06/04/13 Estimate Clerk Relationship Specialty Start Date End Date Declan Swanson DO PCP - General Internal Medicine 06/04/13 Estimate Clerk Relationship Specialty Start Date End Date Declan Swanson DO PCP - General Internal Medicine 06/04/13 Team Status: Inactive Member Role Status Dates Declan Swanson DO Primary Care Provide r, Attending Provider Active Start: June 23, 2023 End: June 23, 2023 Estimate Clerk Relationship Specialty Start Date End Date Declan Swanson DO PCP - General Internal Medicine 06/04/13 Estimate Clerk Relationship Specialty Start Date End Date Declan [...] August 21, 2023 End: August 21, 2023 Estimate Clerk Relationship Specialty Start Date End Date Declan Swanson DO PCP - General Internal Medicine 06/04/13 Estimate Clerk Relationship Specialty Start Date End Date Declan Swanson DO PCP - General Internal Medicine 06/04/13 Estimate Clerk Relationship Specialty Start Date End Date Declan Swanson DO PCP - General Internal Medicine 06/04/13 Venkat Evans V, MD [address] [place], [place] [id number] Primary Staff Physician Cardiology 01/24/24 Estimate Clerk Relationship Specialty Start Date End Date Declan Swanson DO PCP - General Internal Medicine 06/04/13 Venkat Evans V, MD [address] [place], [place] [id number] Primary Staff Physician Cardiology 01/24/24 Estimate Clerk Relationship Specialty Start Date End Date Declan Swanson DO PCP - General Internal Medicine 06/04/13 Venkat Evans V, MD [address] [place] [facility] [address] Primary Staff Physician Cardiology 01/24/24 Estimate Clerk Relationship Specialty Start Date End Date Declan Swanson DO PCP - General Internal Medicine 06/04/13 Venkat Evans V, MD [address] [place] [address] Primary Staff Physician Cardiology 01/24/24 Team Status: [...] Care Provider Active Start: April 23, 2024 Estimate Clerk Relationship Specialty Start Date End Date Declan Swanson DO PCP - General Internal Medicine 06/04/13 Venkat Evans V, MD [address] [facility], [place] [id number] Primary Staff Physician Cardiology 01/24/24 Estimate Clerk Relationship Specialty Start Date End Date Declan Swanson DO PCP - General Internal Medicine 06/04/13 Venkat Evans V, MD [address] [facility], [place] [id number] Primary Staff Physician Cardiology 01/24/24 Team Status: Active Member Role Status Dates Declan Swanson DO Primary Care Provide r, Attending Provider Active Start: June 15, 2024 Team Status: Inactive Member Role Status Dates Declan Swanson DO Primary Care Provider Active Start: July 31, 2024 End: July 31, 2024 Yvan Mercedes MD Attending Provider Activ e Start: July 31, 2024 End: July 31, 2024 Estimate Clerk Relationship Specialty Start Date End Date Declan Swanson DO [address] [place] [id number] PCP - General Internal Medicine 08/31/22 Estimate Clerk Relationship Specialty Start Date End Date Declan Swanson DO [address] [facility] [id number] PCP - General Internal Medicine 08/31/22 Team [...] 2024 End: September 06, 2024 Tiffany Higgins [facility] [employer] D[employer] Developer Active St art: September 06, 2024 End: September 06, 2024 Estimate Clerk Relationship Specialty Start Date End Date Declan Swanson DO [address] [place] [id number] PCP - General Internal Medicine 08/31/22 Estimate Clerk Relationship Specialty Start Date End Date Declan Swanson DO [address] [place] [id number] PCP - General Internal Medicine 08/31/22 Estimate Clerk Relationship Specialty Start Date End Date Declan Swanson DO PCP - General Internal Medicine 06/04/13 Venkat Evans V, MD [address] [place] [address] Primary Staff Physician Cardiology 01/24/24 Goals (unrecognized [...] BE BASED ON THE PRIMARY CLINICAL RECORDS. [employer] [facility]. provides no warranty or guarantee of the accuracy or completeness of information in this document.
--- NOTE | 2024-11-06 09:43 | ED.GENADUL1 ---
HPI HPI - General Adult General Chief complaint: Head Injury Stated complaint: laceration Time Seen by Provider: 11/06/24 09:12 Source: patient and family Mode of arrival: walk-in Limitations: no limitations History of Present Illness HPI narrative: Patient is a 79-year-old male, on Coumadin for A-fib, presenting to the emergency department s/p mechanical fall. Patient states he was walking to the bank, tripped on a curb, and landed on his left side. He states that he hit his head, but had no loss of consciousness. He has had no nausea or vomiting. He denies becoming lightheaded, dizzy, or short of breath prior to the fall. He is currently asymptomatic, only complaining of pain in his left knee. He was able to ambulate after the fall. He denies any changes in vision, weakness, paresthesias, chest pain, shortness of breath, or any other symptoms at this time. States he is a history of a prior knee replacements. Unsure of his last tetanus shot. Related Data Home Medications ?Medication ?Instructions ?Recorded ?Confirmed allopurinol 300 mg tablet 300 mg PO DAILY 12/05/23 12/05/23 furosemide 40 mg tablet 40 mg PO DAILY 12/05/23 12/05/23 hydrocortisone 2.5 % topical cream See Rx Instructions topical 12/05/23 12/05/23 .COMPLEX metformin 500 mg tablet 500 mg PO DAILY 12/05/23 12/05/23 potassium chloride 20 mEq 20 meq PO DAILY 12/05/23 12/05/23 tablet,extended release pravastatin 80 mg tablet 80 mg PO DAILY 12/05/23 12/05/23 warfarin 4 mg tablet 4 mg PO MOTUTHFRSA@219912/05/23 12/05/23 warfarin 6 mg tablet 6 mg PO SUWE@219912/05/23 12/05/23 Previous Rx's ?Medication ?Instructions ?Recorded sulfamethoxazole 800 1 tab PO BID #14 tabs 12/07/23 mg-trimethoprim 160 mg tablet (Bactrim DS) Allergies Allergy/AdvReac Type Severity Reaction Status Date / Time No Known Drug Allergies Allergy Verified 11/06/24 09:30 Opioid HPI Opioid Management Most Recent Opioid Data: Last Pain Scale 7 12/06/23, 23:06 Last ORT Total Score 0 12/05/23, 13:16 Last ORT Risk Category Low Risk 12/05/23, 13:16 Review of Systems ROS Status of ROS 10 or more systems reviewed and unremarkable except as noted in history and below [id number] Medical History (Updated 11/06/24 @ 10:46 by Dg Calderon DO) Type 2 diabetes mellitus ?E11.9 - Type 2 diabetes mellitus without complications (ICD-10) Hyperlipemia ?E78.5 - Hyperlipidemia, unspecified (ICD-10) A-fib ?I48.91 - Unspecified atrial fibrillation (ICD-10) Surgical History (Updated 12/05/23 @ 13:37 by Zina Reyes RN) History of cardiac radiofrequency ablation ?Z98.890 - Other specified postprocedural states (ICD-10) History of bilateral knee replacement ?Z96.653 - Presence of artificial knee joint, bilateral (ICD-10) H/O hernia repair ?Z98.890 - Other specified postprocedural states (ICD-10) ?Z87.19 - Personal history of other diseases of the digestive system (ICD-10) Family History (Updated 12/05/23 @ 13:40 by Zina Reyes RN) Mother Family history of CHF (congestive heart failure) Father Family history of diabetes mellitus Social History (Updated 12/05/23 @ 13:44 by Zina Reyes RN) Within the past year, how often did you have a drink containing alcohol: 2-3 times a week Smoking status: Former smoker Non-prescribed substance use: denies use Highest level of school completed/degree received: high school graduate Little interest or pleasure in doing things: not at all Feeling down, depressed, or hopeless: not at all Exam Narrative Exam Narrative: CONSTITUTIONAL: Well-appearing, answering questions and following commands appropriately SKIN: There is a irregular 0.5 cm laceration just lateral to the patient's left eyebrow with no active bleeding. Mild superficial abrasion over the left elbow. EYES: PERRLA. EOMI. No ptosis. No periorbital edema. EARS, NOSE, THROAT: Moist oral mucosa. No Babcock sign. RESPIRATORY: Clear to auscultation bilaterally, no wheezes, crackles, or stridor, no use of accessory muscles CARDIOVASCULAR: Normal rate and regular rhythm. There is no S3, S4, murmur, rub. GASTROINTESTINAL: Abdomen is soft, nontender, nondistended MUSCULOSKELETAL: No C-spine tenderness. No tenderness throughout the facial bones. Full range of motion in the mandible. NEUROLOGIC: Patient is awake and alert. Equal strength throughout all 4 extremities. Facies were symmetrical. Constitutional Vital Signs, click to edit/add: Last Vital Signs Temp 97.5 F L 11/06/24 09:31 Pulse 81 11/06/24 09:31 Resp 18 11/06/24 09:31 BP 141/75 11/06/24 09:31 Pulse Ox 97 11/06/24 09:31 O2 Del Method Room Air 11/06/24 09:31 Course Vital Signs Vital signs: Vital Signs Temperature 97.5 F L 11/06/24 09:31 Pulse Rate 81 11/06/24 09:31 Respiratory Rate 18 11/06/24 09:31 Blood Pressure 141/75 11/06/24 09:31 Pulse Oximetry 97 11/06/24 09:31 Oxygen Delivery Method Room Air 11/06/24 09:31 Temperature 97.5 F L 11/06/24 09:31 Pulse Rate 81 11/06/24 09:31 Respiratory Rate 18 11/06/24 09:31 Blood Pressure 141/75 11/06/24 09:31 Pulse Oximetry 97 11/06/24 09:31 Oxygen Delivery Method Room Air 11/06/24 09:31 Medical Decision Making MDM Narrative Medical decision making narrative: Patient is a 79-year-old male, on Coumadin for A-fib, presenting to the emergency department s/p mechanical fall from standing height earlier today. Vital signs on arrival are within normal limits. He is afebrile and hemodynamically stable. Examination as noted above. Differential diagnosis includes facial laceration, left knee contusion, intracranial hemorrhage, mild closed head injury. He has no evidence of entrapment, with intact EOM. The fall was mechanical, no pre-syncopal symptoms prior to the fall. CT head and left knee x-rays were obtained. Tdap shot was updated. LET gel was placed on the patient's laceration in preparation for suture repair. CT head independently reviewed/interpreted by myself demonstrated no acute intracranial pathology or hemorrhage. X-rays of the left knee demonstrate no acute osseous abnormalities. I do believe the patient stable for discharge. His facial laceration was repaired with sutures (see procedure note for full dictation). They were instructed to follow up with his PCP in 5 to 7 days for wound check and suture removal. Return precautions were given including any new or worsening symptoms. Patient understands and agrees to the plan. FINAL IMPRESSION: #Acute facial laceration #Acute closed head injury #Acute left knee contusion DISPOSITION: Discharged home CONDITION: Good Imaging Data CT scan - head: Attestation: I personally reviewed and interpreted this imaging study as follows: Radiologist's impression: ITS Impressions Head CT 11/06/24 09:37 IMPRESSION: ATROPHY AND SMALL VESSEL ISCHEMIC CHANGES. NO ACUTE INTRACRANIAL TRAUMA. Impression dictated by: Audrey Mcarthur M.D. 11/06/2024 10:06 AM Dictation Location: [facility] Electronically authenticated by: [id number] Y Date: 11/06/2024 10:06 Knee X-Ray 11/06/24 09:37 IMPRESSION: KNEE REPLACEMENT, DESCRIBED. NO ACUTE BONY INJURY. Impression dictated by: Audrey Mcarthur M.D. 11/06/2024 10:11 AM Dictation Location: [facility] Electronically authenticated by: [id number] Y Date: 11/06/2024 10:11 Discharge Plan Discharge Chief Complaint: Head Injury Clinical Impression: Facial laceration Qualifiers: Encounter type: initial encounter Qualified Code(s): S01.81XA - Laceration without foreign body of other part of head, initial encounter Closed head injury Qualifiers: Encounter type: initial encounter Qualified Code(s): S09.90XA - Unspecified injury of head, initial encounter Patient Disposition: Home, Self-Care Time of Disposition Decision: 10:46 Condition: Good Mode of Transportation: Private Vehicle Prescriptions / Home Meds: No Action allopurinol 300 mg tablet 300 mg PO DAILY furosemide 40 mg tablet 40 mg PO DAILY hydrocortisone 2.5 % cream See Rx Instructions topical .COMPLEX Rx Instructions: APPLY TOPICALLY TO FACE DAILY MONDAY-MONDAY, WEEKENDS OFF FOR 2 WEEKS AND THEN USE NEEDED FOR FLARES (SEBORRHEIC DERMATITIS) metformin 500 mg tablet 500 mg PO DAILY potassium chloride 20 mEq tablet extended release 20 meq PO DAILY pravastatin 80 mg tablet 80 mg PO DAILY warfarin 4 mg tablet 4 mg PO MOTUTHFRSA@2200 warfarin 6 mg tablet 6 mg PO SUWE@2200 sulfamethoxazole-trimethoprim [Bactrim DS] 800-160 mg tablet 1 tab PO BID Qty: 14 0RF Print Language: Mongolian Instructions: Laceration (ED), Head Injury (ED) Referrals: Declan Bruce DO [Primary Care Provider, Internal Medicine] - 1 week Discharge Date/Time: 11/06/24 11:03
[2024-11-06] MEDS: LIDOCAINE/EPINEPHRINE/TETRACAINE 3 ML GEL.PF.APP TOPICAL (10:09)
[2024-11-06] MEDS: DIPHTH,PERTUSS(ACELL),TET VAC 0.5 ML SYRINGE IM (10:09)
== END 2024-11-06 11:03 | disposition home or self-care (01) ==
PROVIDERS: Emergency Provider Student in an Organized Health Care Education/Training Program; PCP Internal Medicine
DX: S01.81XA Laceration without foreign body of other part of head, initial encounter (principal); W10.1XXA Fall (on)(from) sidewalk curb, initial encounter; S09.8XXA Other specified injuries of head, initial encounter; Z79.01 Long term (current) use of anticoagulants; I48.91 Unspecified atrial fibrillation; Z23 Encounter for immunization; Z96.653 Presence of artificial knee joint, bilateral; Z87.891 Personal history of nicotine dependence; S50.312A Abrasion of left elbow, initial encounter
CPT/HCPCS: 70450; 73562; 90471; 99284

== ENCOUNTER 2024-11-11 01:47 | Outpatient (RCR) | payer MEDICARE, OTHER, SELFPAY | END 2024-12-10 15:31 | disposition home or self-care (01) | LOC: MM 01:47 | PROVIDERS: PCP Internal Medicine; Visit Provider Internal Medicine | DX: Z51.81 Encounter for therapeutic drug level monitoring (principal); Z79.01 Long term (current) use of anticoagulants; I48.91 Unspecified atrial fibrillation | CPT/HCPCS: 85610; G0463 ==

== ENCOUNTER 2024-12-11 04:31 | Outpatient (RCR) | payer MEDICARE, OTHER, SELFPAY | END 2025-01-10 23:59 | disposition home or self-care (01) | LOC: MM 04:31 | PROVIDERS: PCP Internal Medicine; Visit Provider Internal Medicine | DX: Z51.81 Encounter for therapeutic drug level monitoring (principal); Z79.01 Long term (current) use of anticoagulants; I48.91 Unspecified atrial fibrillation | CPT/HCPCS: 85610; G0463 ==

== ENCOUNTER 2025-01-11 | Outpatient (RCR) | payer MEDICARE, OTHER, SELFPAY | END 2025-02-09 23:59 | disposition home or self-care (01) | LOC: MM | PROVIDERS: PCP Internal Medicine; Visit Provider Internal Medicine | DX: Z51.81 Encounter for therapeutic drug level monitoring (principal); Z79.01 Long term (current) use of anticoagulants; I48.91 Unspecified atrial fibrillation | CPT/HCPCS: 85610; G0463 ==

== ENCOUNTER 2025-02-10 11:08 | Outpatient (RCR) | payer MEDICARE, OTHER, SELFPAY | END 2025-03-12 12:47 | disposition home or self-care (01) | LOC: MM 11:08 | PROVIDERS: PCP Internal Medicine; Visit Provider Internal Medicine | DX: Z51.81 Encounter for therapeutic drug level monitoring (principal); Z79.01 Long term (current) use of anticoagulants; I48.91 Unspecified atrial fibrillation | CPT/HCPCS: 85610; G0463 ==